=== PATIENT | male | born 1960 | race Caucasian/White ===

== ENCOUNTER 2021-12-30 14:43 | Emergency (ER) | payer OTHER, SELFPAY ==
--- NOTE | ~2021-12-30 | US_ITS ---
US renal BI DATE: 12/30/2021 17:56 INDICATION: Renal failure TECHNIQUE: Real-time imaging of the kidneys and urinary bladder COMPARISON: 04/25/2019 ultrasound of the kidneys 03/03/2006 CT renal scan FINDINGS: There is diffuse bilateral renal parenchymal thinning. The right kidney measures 9 cm lengt h, left kidney approximately 9.8 cm length. No hydronephrosis of either kidney is noted. There is a hypervascular approximately 3.8 x 5.2 x 4 cm solid mass the right kidney suspicious for hy pernephroma. CT or MR abdomen examination is recommended. There is diffuse thickening of the urinary bladder wall, possibly due to prostatomegaly.. IMPRESSION: Up to 5.2 cm mass of right kidney suspicious for hypernephroma; CT or MR renal examinatio n is recommended. Bilateral renal atrophy Thickening of the urinary bladder wall, possibly due to prostatomegaly Reviewed, dictated and finalized at [facility]. Reviewed, dictated and finalized at [facility]. IMPRESSION: Up to 5.2 cm mass of right kidney suspicious for hypernephroma; CT or MR renal examination is recommended. Bilateral renal atrophy Thickening of the urinary bladder wall, possibly due to prostatomegaly
[2021-12-30 14:47] VITALS: BP 132/81; PULSE 80; RESP 18; TEMP 37; O2SAT 98
[2021-12-30 15:00] LABS: Basophils Absolute Auto 0.1 K/mm3 (0.0-0.1); Basophils Percent Auto 0.9 % (0.2-1.2); Eosinophils Absolute Auto 0.2 K/mm3 (0-0.3); Eosinophils Percent Auto 2.8 % (0-4.4); Hematocrit 35.1 % (42.0-52.0); Hemoglobin 11.9 g/dL (14.0-18.0); Immature Granulocyte Absolute 0.03 K/mm3 (0.00-0.031); Immature Granulocyte Percent A 0.5 % (0-0.5); Lymphocytes Absolute Auto 0.69 K/mm3 (0.9-3.2); Mean Corpuscular HGB Conc 33.9 g/dl (32-36); Mean Corpuscular Hemoglobin 34.5 pg (26-34); Mean Corpuscular Volume 101.7 fl (80-100); Mean Platelet Volume 9.3 fl (7.4-10.4); Monocytes Absolute Auto 0.7 K/mm3 (0.1-0.6); Monocytes Percent Auto 12.5 % (2.6-8.5); Neutrophils Absolute Auto 4.1 K/mm3 (1.3-6.7); Neutrophils Percent Auto 71.3 % (45.5-73.1); Platelet Count Result 223 k/mm3 (150-375); Red Blood Count 3.45 M/mm3 (4.6-6.20); Red Cell Distribution Width 13.8 % (11.5-14.5); White Blood Count 5.8 K/mm3 (4.5-10.0)
--- NOTE | 2021-12-30 15:03 | ED.GENADULT ---
HPI - General Adult General Chief complaint: Recheck/Abnormal Lab/Rx Stated complaint: Kidney failure? Time Seen by Provider: 12/30/21 14:46 Source: RN notes reviewed History of Present Illness HPI narrative: Patient presents emergency department from home for possible renal failure. Patient states he just recently started seeing a primary care physician he states he has not seen a doctor since before COVID-19 started states that he had blood work drawn and was called today to come to the emergency department because it appeared he had renal failure as his creatinine was elevated. States he had 1 previous episode of renal failure numerous years ago that was secondary to dehydration but improved on its own. States he never saw a investment accountant. He denies any fevers or chills, chest pain, shortness of breath, abdominal pain, nausea or vomiting. States he has been making good urine. States he is on blood pressure medication Related Data Home Medications Medication Instructions Recorded Confirmed amlodipine 10 mg PO DAILY 12/30/21 12/30/21 furosemide 40 mg PO DAILY 12/30/21 12/30/21 hydralazine 10 mg PO TID 12/30/21 12/30/21 lisinopril 20 mg PO DAILY 12/30/21 12/30/21 metoprolol succinate 100 mg PO DAILY 12/30/21 12/30/21 Allergies Allergy/AdvReac Type Severity Reaction Status Date / Time No Known Allergies Allergy Unverified 12/30/21 14:52 Review of Systems Review of Systems: Gen.: Denies fevers or chills ENT: Denies congestion Respiratory: Denies shortness of breath or cough CV: Denies chest pain or palpitations GI: Denies abdominal pain nausea, emesis or diarrhea see HPI Musculoskeletal: Denies back pain or muscle pain Neuro: Denies numbness, tingling, weakness or focal weakness Skin: Denies rash Except as documented, all other systems reviewed and negative [facility] Past Medical History Medical History (Updated 12/30/21 @ 18:58 by Anam Aldrich DO) Hypertension Family History Family History (Updated 04/29/10 @ 15:47 by DOCTOR UNKNOWN) Other Diabetes mellitus Family history of arthritis Family history of cardiovascular disease Family history of malignant neoplasm Hypertension Social History Social History (Updated 12/30/21 @ 15:04 by Anam Aldrich DO) Smoking status: Never smoker Alcohol intake: current Exam Narrative: APPEARANCE: No acute distress, nontoxic, resting in bed EYES: EOMI HEENT: Normocephalic, atraumatic, OMM RESPIRATORY: No respiratory distress Clear to auscultation bilaterally with no rhonchi wheezing or rales. CARDIOVASCULAR: Regular rate and rhythm without murmurs rubs or gallops. ABDOMINAL: Soft, nontender, nondistended, no rebound or guarding MUSCULOSKELETAl: Moves all extremities. No clubbing, cyanosis or edema. NEURO: Awake and alert. Following commands, speech normal, no focal deficits SKIN:: Warm, dry. No rashes lesions or abrasions PSYCHIATRIC: Normal affect/mood, Course Course Emergency Course: Patient's blood work was done at another facility unable to access Called discussed with Dr. Dukes. Discussed creatinine from 2018 and creatinine today. This time agrees with plan for discharge with patient to follow-up in the office he request that renal ultrasound be obtained and requested the patient get his blood work from Monday to bring to the office for follow-up Following renal ultrasound I called discussed with Dr. Collins. At this time he agrees plan for discharge the patient to follow-up with him in the office and he will get an MRI as an outpatient Discussed with patient results of workup and diagnosis. Discussed need for follow-up with primary care, proper use of medication, and reasons to return to the emergency department. Patient understands and agrees to current treatment plan. Discussed with patient his renal mass with concern of renal carcinoma and need for follow-up with urology for repeat imaging also discussed need for follow-up wi
[2021-12-30 15:10] LABS: Alanine Aminotransferase 22 U/L (4-50); Albumin Level 4.2 g/dL (3.5-5.1); Alkaline Phosphatase 71 U/L (38-126); Anion Gap 8 mmol/L (8-16); Aspartate Amino Transferase 26 U/L (17-59); Bilirubin,Total 0.6 mg/dL (0.2-1.3); Blood Urea Nitrogen 59 mg/dL (9-20); Calcium 9.1 mg/dL (8.4-10.2); Carbon Dioxide 22 mmol/L (22-30); Chloride 106 mmol/L (98-107); Estimated CRCL calculation 24 ml/min; Estimated Glomerular Filt Rate 19; Glucose 130 mg/dL (65-110); Potassium 4.9 mmol/L (3.4-5.0); Sodium 136 mmol/L (137-145)
[2021-12-30 16:29] LABS: Add Urine Microscopic? YES; Appearance Urine Clear (Clear); Bilirubin Urine Negative (Negative); Blood Urine Negative (Negative); Color Urine Straw (Yellow); Glucose Urine UA Negative (Negative); Ketones Urine Negative (Negative); Leukocyte Esterase Ur Negative LEU/UL (Negative); Nitrate Urine Negative (Negative); Protein Urine Negative (Negative); RBC Urine 0-2 /hpf (0-2); Specific Grav Ur 1.008 (1.001-1.035); Urobilinogen Urine Negative mg/dL (<2.0)
[2021-12-30 17:16] VITALS: BP 124/86; PULSE 66; RESP 18; O2SAT 100
[2021-12-30] MEDS: SODIUM CHLORIDE 0.9% IV 1,000 ML 999 ML IV CONT (17:16)
[2021-12-30 18:45] VITALS: BP 125/86; PULSE 76; RESP 18; O2SAT 99
[2021-12-30 19:10] VITALS: BP 146/98; PULSE 70; RESP 19; O2SAT 99
== END 2021-12-30 19:11 | disposition home or self-care (01) ==
PROVIDERS: Emergency Provider Emergency Medicine
DX: N17.9 Acute kidney failure, unspecified (principal); N18.9 Chronic kidney disease, unspecified; I12.9 Hypertensive chronic kidney disease with stage 1 through stage 4 chronic kidney disease, or unspecified chronic kidney disease; N28.89 Other specified disorders of kidney and ureter
CPT/HCPCS: 36415; 76775; 80053; 81001; 85025; 96360; 96361; 99284; J7030

== ENCOUNTER 2022-02-09 12:26 | Outpatient (CLI) | payer OTHER, SELFPAY ==
--- NOTE | ~2022-02-09 | MR_ITS ---
EXAMINATION: MR abdomen wo con DATE: 02/09/2022 13:14 INDICATION: Right renal mass TECHNIQUE: Magnetic resonance imaging (MRI) of the abdomen was performed without intravenous contrast . Sequences included coronal T2-weighted SS-FSE, coronal and axial FS 2D-FIESTA, axial STIR FSE, axi al T2-weighted SS-FSE, axial T2-weighted FS SS-FSE, axial diffusion-weighted SE, axial dual-echo T1-w eighted FSPGR, and axial and coronal T1-weighted LAVA. COMPARISON: Ultrasound dated 12/30/2021 FINDINGS: Heart size is normal. No pericardial or pleural effusion. Small amount of debris layering in the depe ndent aspect of the otherwise normal gallbladder. Liver, spleen, pancreas and bilateral adrenal gland s are normal. 5 mm cyst at the lower pole of the left kidney. 6.1 x 6.1 x 5.0 cm exophytic mass arisi ng from the lower pole of the right kidney with heterogeneous signal intensity consistent with renal cell carcinoma. Visualized portion of the bowels are normal. No pathologically enlarged abdominal lym phadenopathy. 6.6 x 6.1 x 4.9 cm fat-containing left periumbilical ventral hernia which extends throu gh a 2.6 x 1.8 cm os. Severe disc height loss at L5-S1. Normal bone marrow signal. IMPRESSION: 1. 6.1 cm heterogeneous exophytic mass arising from the lower pole of the right kidney consistent wit h renal cell carcinoma. 2. Moderate-sized fat-containing left periumbilical ventral hernia. 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 IMPRESSION: 1. 6.1 cm heterogeneous exophytic mass arising from the lower pole of the right kidney consistent with renal cell carcinoma. 2. Moderate-sized fat-containing left periumbilical ventral hernia.
== END 2022-02-09 12:27 | disposition home or self-care (01) ==
LOC: ANHIMG 12:31
PROVIDERS: PCP Physician Assistant; Visit Provider Urology
DX: N28.89 Other specified disorders of kidney and ureter (principal); K43.9 Ventral hernia without obstruction or gangrene
CPT/HCPCS: 74181

== ENCOUNTER 2022-03-21 13:32 | Outpatient (CLI) | payer OTHER, SELFPAY ==
--- NOTE | ~2022-03-21 | NM_ITS ---
EXAMINATION: ODILIA ruelas renal scan DATE: 03/21/2022 15:40 INDICATION: Right kidney mass. TECHNIQUE: 7.5 mCi Tc-99m MAG3 was administered IV. 40 mg furosemide was administered IV immediately afterward. The patient was scanned in the supine position. A posterior abdominal radionuclide angiog lucio was obtained. A subsequent time course of static images of the kidneys, ureters, and bladder was obtained. COMPARISON: abdomen MRI 02/09/22 FINDINGS: The posterior abdominal radionuclide angiogram and sequential static images show normal siz e, position, and morphology of the kidneys. Peak renal parenchymal uptake was 4 min in right kidney a nd 2 min in left kidney (normal peak 3-5 minutes). The relative early renal uptake was 51% on the ri ght and 49% on the left (<40% is abnormal). No abnormalities of the ureters or bladder are seen. T1/2 for clearance of activity from the right kidney and proximal collecting system was 30 minutes. T1/2 for clearance of activity from the left kidney and proximal collecting system was 27 minutes. IMPRESSION: 1. Symmetric kidney function. 2. Delayed contrast clearance from the kidneys, consistent with decreased renal function. Reviewed, dictated and finalized at [facility]. IMPRESSION: 1. Symmetric kidney function. 2. Delayed contrast clearance from the kidneys, consistent with decreased ginger l function.
== END 2022-03-21 13:33 | disposition home or self-care (01) ==
PROVIDERS: PCP Physician Assistant; Visit Provider Urology
DX: N28.89 Other specified disorders of kidney and ureter (principal)
CPT/HCPCS: 78708; A9562

== ENCOUNTER 2022-04-14 10:02 | Outpatient (CLI) | payer OTHER, SELFPAY ==
--- NOTE | 2022-04-14 11:00 | NEURO_ITS ---
Impression: # Complains of numbness of lower extremities. # Severe motor and sensory neuropathy. # Needle/EMG exam neurogenic but no active fibrillations. # Clinical correlation recommended. Nerve Conduction Studies Anti Sensory Summary Table Stim Site NR Peak (ms) P-T Amp (?V) Site1 Site2 Delta-P (ms) Dist (cm) Theo (m/s) Left Sup Fibular Anti Sensory (Ant Lat Mall) NO RESPONSE 14 cm NR 14 cm Ant Lat Mall 16.0 Right Sup Fibular Anti Sensory (Ant Lat Mall) NO RESPONSE 14 cm NR 14 cm Ant Lat Mall 16.0 Left Sural Anti Sensory (Lat Mall) NO RESPONSE Calf NR Calf Lat Mall 16.0 Right Sural Anti Sensory (Lat Mall) NO RESPONSE Calf NR Calf Lat Mall 16.0 Motor Summary Table Stim Site NR Onset (ms) O-P Amp (mV) Site1 Site2 Delta-0 (ms) Dist (cm) Theo (m/s) Left Peroneal Motor (Vastus Med) NO RESPONSE Ankle NR Popit NR Right Peroneal Motor (Vastus Med) NO RESPONSE Ankle NR Popit NR Left Tibial Motor (Abd Day Brev) NO RESPONSE Ankle NR Knee NR Right Tibial Motor (Abd Day Brev) NO RESPONSE Ankle NR Knee NR F Wave Studies NR F-Lat (ms) L-R F-Lat (ms) Left Peroneal (Mrkrs) (EDB) NO RESPONSE NR Right Peroneal (Mrkrs) (EDB) NO RESPONSE NR Left Tibial (Mrkrs) (Abd Hallucis) NO RESPONSE NR Right Tibial (Mrkrs) (Abd Hallucis) NO RESPONSE NR EMG Side Muscle Nerve Root Ins Act Fibs Amp Dur Recrt Comment Right AntTibialis Dp Br Fibular L4-5 Nml Nml Nml >12ms Reduced Right Gastroc Tibial S1-2 Nml Nml Nml >12ms Reduced Right Fibularis Long Sup Br Fibular L5-S1 Nml Nml Nml >12ms Reduced Right Flex Dig Long Tibial L5-S2 Nml Nml Nml >12ms Reduced Right Ext Dig Brev Dp Br Fibular L5, S1 Nml Nml Nml >12ms Reduced Left AntTibialis Dp Br Fibular L4-5 Nml Nml Nml >12ms Reduced Left Gastroc Tibial S1-2 Nml Nml Nml >12ms Reduced Left Fibularis Long Sup Br Fibular L5-S1 Nml Nml Nml >12ms Reduced Left Flex Dig Long Tibial L5-S2 Nml Nml Nml >12ms Reduced Left Ext Dig Brev Dp Br Fibular L5, S1 Nml Nml Nml >12ms Reduced Right Ext Dig Long Dp Br Fibular L5-S1 Nml Nml Nml >12ms Reduced Left Ext Dig Long Dp Br Fibular L5-S1 Nml Nml Nml >12ms Reduced MTDD
== END 2022-04-14 10:03 | disposition home or self-care (01) ==
LOC: ANHNEURO 10:03
PROVIDERS: PCP Physician Assistant; Visit Provider Physician Assistant
DX: G62.9 Polyneuropathy, unspecified (principal)
CPT/HCPCS: 95886; 95910

== ENCOUNTER 2022-05-02 09:38 | Outpatient (CLI) | payer OTHER, SELFPAY ==
--- NOTE | 2022-05-02 10:58 | ECG_ITS ---
Measurements Intervals [place] Rate: 60 P: 69 MN: 218 QRS: 10 QRSD: 102 T: 38 QT: 438 QTc: 438 Interpretive Statements SINUS RHYTHM WITH FIRST DEGREE AV BLOCK BASELINE ARTIFACT- I, III, AVR, AVL ABNORMAL ECG Electronically Signed On 05-02-2022 11:24:36 CDT by Davonte Almendarez D.O.
[2022-05-02 11:29] LABS: INR 0.9; Prothrombin Time 12.2 Seconds (11.1-14.7)
[2022-05-02 11:30] LABS: Partial Thromboplastin Time 25.3 SECONDS (22.3-36.8)
[2022-05-02 11:39] LABS: Basophils Absolute Auto 0.1 K/mm3 (0.0-0.1); Basophils Percent Auto 0.9 % (0.2-1.2); Eosinophils Absolute Auto 0.4 K/mm3 (0-0.3); Eosinophils Percent Auto 5.3 % (0-4.4); Hematocrit 37.1 % (42.0-52.0); Hemoglobin 11.9 g/dL (14.0-18.0); Immature Granulocyte Absolute 0.02 K/mm3 (0.00-0.031); Immature Granulocyte Percent A 0.3 % (0-0.5); Lymphocytes Absolute Auto 1.03 K/mm3 (0.9-3.2); Lymphocytes Percent Auto 14.8 % (18.3-44.2); Mean Corpuscular HGB Conc 32.1 g/dl (32-36); Mean Corpuscular Hemoglobin 32.7 pg (26-34); Mean Corpuscular Volume 101.9 fl (80-100); Mean Platelet Volume 9.4 fl (7.4-10.4); Monocytes Absolute Auto 0.8 K/mm3 (0.1-0.6); Monocytes Percent Auto 10.8 % (2.6-8.5); Neutrophils Absolute Auto 4.7 K/mm3 (1.3-6.7); Neutrophils Percent Auto 67.9 % (45.5-73.1); Platelet Count Result 242 k/mm3 (150-375); Red Blood Count 3.64 M/mm3 (4.6-6.20); Red Cell Distribution Width 14.6 % (11.5-14.5)
[2022-05-02 11:40] LABS: Alanine Aminotransferase 16 U/L (6-50); Alkaline Phosphatase 75 U/L (38-126); Anion Gap 4 mmol/L (8-16); Aspartate Amino Transferase 24 U/L (17-59); Bilirubin,Total 0.3 mg/dL (0.2-1.3); Blood Urea Nitrogen 37 mg/dL (9-20); Calcium 8.9 mg/dL (8.4-10.2); Carbon Dioxide 25 mmol/L (22-30); Chloride 109 mmol/L (98-107); Estimated Glomerular Filt Rate 31; Glucose 115 mg/dL (65-110); Potassium 4.5 mmol/L (3.4-5.0); Sodium 138 mmol/L (137-145)
== END 2022-05-02 09:39 | disposition home or self-care (01) ==
PROVIDERS: PCP Physician Assistant; Visit Provider Urology
DX: N28.89 Other specified disorders of kidney and ureter (principal); I10 Essential (primary) hypertension; Z01.818 Encounter for other preprocedural examination; I44.0 Atrioventricular block, first degree
CPT/HCPCS: 36415; 80053; 85025; 85610; 85730; 86850; 86900; 86901; 87086; 93005

== ENCOUNTER 2022-05-10 09:37 | Inpatient (IN) | payer OTHER, SELFPAY ==
--- NOTE | 2022-05-02 09:55 | PC.NURSE ---
Report to the Outpatient Waiting Room, entrance under the green pavilion located off [facility], at time _0600_ on date _05/10/22_. OR Time: _0730_. - You and your visitor will be asked a series of questions to screen for COVID 19 for your protection. - Only one visitor is allowed at this time. - A mask is required within the hospital. - The patient visitor is requested to leave or wait in car when not with patient. VISITING HOURS 10AM-8PM, PARK IN FRONT OF THE HOSPITAL AND USE MAIN ENTRANCE Patients may have clear liquids (water, carbonated beverages, clear teas, apple juice) until 3 hours prior to surgery (0430 AM) with a maximum of 20 ounces. - No food from midnight until time of surgery Take the following medications with a SIP of water the morning of surgery: _AMLODIPINE, HYDRALAZINE, METOPROLOL_ Medications to discontinue per DR. CRUZ - ASPIRIN 7 DAYS PRIOR TO SURGERY, Date to take last dose 05/02/22_ Medications to discontinue per ANESTHESIA - VITAMINS 3 DAYS PRIOR TO SURGERY, Date to take last dose 05/06/22_ Please no deodorant, or body powder the day of surgery. No jewelry (including any body piercings) or valuables the day of surgery, leave them at home. Please take a shower or bath the night before, or the morning of, surgery with an antibacterial soap. Wear comfortable, loose fitting clothing. - Jewelry must be removed prior to entering the operating room. Rings and piercings that are not removed may be cut off. - The hospital will not accept responsibility for valuables. - Please leave all valuables, including medications, at home the day of surgery. If you are going home after surgery, a licensed cross country truck driver must drive you home. - NO public transportation without another adult. - We recommend that an adult stay with you for 24 hours following discharge. - We also recommend that you do not drive, make important decision, drink alcoholic beverages, or take any drugs that were not prescribed by your health care provider for at least 24 hours after your discharge time. Follow any additional instructions given to you from your surgeons. DR. EDILIA VIRK SHOWER AM OF SURGERY If you or anyone in your household have experienced Covid symptoms in the past week, please notify your surgeon or the nurse liaison at the phone number below for possible testing. Instructions given to ____PT & [id number] (LATIA) and asked if any additional questions and then verbalized understanding. Patient advised to call surgeon office or pre surgery nurse liaison [phone] if any additional questions.
[2022-05-02 10:21] VITALS: BP 160/86; PULSE 62; RESP 20; TEMP 36.8; O2SAT 99; BMI 27.3
--- NOTE | 2022-05-09 14:10 | WPDANESEPPF ---
Anes - Initial Pre Proc Eval Procedure: Operation Date: 05/10/22 07:30 Proposed Procedures p Hand-Assisted Right Radical Nephrectomy - Vitor Mayberry MD s Incarcerated Ventral Hernia Repair, Possible Mesh - Serafin Benjamin DO Date/Time: 05/09/22 14:10 Surgeon: Vitor Mayberry MD Pre Op Diagnosis: Right Renal Mass, Incarcerated Ventral Hernia Patient Data Age: 61 Gender: M Height: 1.83 m Weight: 91.5 kg Last Vital Signs Temp 36.8 C 05/02/22 10:21 Pulse 62 05/02/22 10:21 Resp 20 05/02/22 10:21 BP 160/86 H 05/02/22 10:21 Pulse Ox 99 05/02/22 10:21 O2 Del Method Room Air 05/02/22 10:21 Allergies Allergy/AdvReac Type Severity Reaction Status Date / Time No Known Allergies Allergy Verified 05/02/22 10:23 Home Medications Medication Instructions Recorded Confirmed Type amlodipine 10 mg tablet 10 mg PO QAM 12/30/21 05/02/22 History hydralazine 10 mg tablet 10 mg PO TID 12/30/21 05/02/22 History lisinopril 20 mg tablet 20 mg PO QAM 12/30/21 05/02/22 History metoprolol succinate 100 mg 100 mg PO QAM 12/30/21 05/02/22 History capsule sprinkle, ext. release 24 hr aspirin 81 mg tablet,delayed 81 mg PO DAILY 05/02/22 05/02/22 History release cholecalciferol (vitamin D3) 1 cap QAM 05/02/22 05/02/22 History ECG: Date of Service: 05/02/22 Procedure(s): CA 12 lead EKG Accession Number(s): [id number] cc: ~ ? Measurements Intervals? [place]? Rate: ? 60 ? P:? 69 MT: ? 218? QRS:? 10 QRSD: ? 102? T:? 38 QT: ? 438? QTc:? 438? Interpretive Statements SINUS RHYTHM WITH FIRST DEGREE AV BLOCK BASELINE ARTIFACT- I, III, AVR, AVL ABNORMAL ECG Electronically Signed On 05-02-2022 11:24:36 CDT by Davonte Almendarez D.O. Other studies: DATE: 02/09/2022 13:14 INDICATION: Right renal mass TECHNIQUE: Magnetic resonance imaging (MRI) of the abdomen was performed without intravenous contrast.? Sequences included coronal T2-weighted SS-FSE, coronal and axial FS 2D-FIESTA, axial STIR FSE, axial T2-weighted SS-FSE, axial T2-weighted FS SS-FSE, axial diffusion-weighted SE, axial dual-echo T1-weighted FSPGR, and axial and coronal T1-weighted LAVA. COMPARISON: Ultrasound dated 12/30/2021 FINDINGS: Heart size is normal. No pericardial or pleural effusion. Small amount of debris layering in the dependent aspect of the otherwise normal gallbladder. Liver, spleen, pancreas and bilateral adrenal glands are normal. 5 mm cyst at the lower pole of the left kidney. 6.1 x 6.1 x 5.0 cm exophytic mass arising from the lower pole of the right kidney with heterogeneous signal intensity consistent with renal cell carcinoma. Visualized portion of the bowels are normal. No pathologically enlarged abdominal lymphadenopathy. 6.6 x 6.1 x 4.9 cm fat-containing left periumbilical ventral hernia which extends through a 2.6 x 1.8 cm os. Severe disc height loss at L5-S1. Normal bone marrow signal. IMPRESSION: 1. 6.1 cm heterogeneous exophytic mass arising from the lower pole of the right kidney consistent with renal cell carcinoma. 2. Moderate-sized fat-containing left periumbilical ventral hernia. Patient hx anesthesia problems: none Family hx anesthesia problems: none Results Review: All pre-operative results and documents have been reviewed as part of the pre-operative evaluation. [facility] Past Medical History Medical History (Updated 05/09/22 @ 14:14 by Gustavo Davalos MD) ETOH abuse Hypertension Incarcerated ventral hernia Kidney stones Peripheral neuropathy Right renal mass Tobacco abuse Family History Family History Other Diabetes mellitus Family history of
--- NOTE | 2022-05-09 14:15 | WPDANESPNB ---
Anes - Peripheral Nerve Block Date/Time: 05/09/22 14:15 I have discussed with the patient/family/POA the placement of a peripheral nerve block for post-operative pain management, including associated risks, benefits, complications, and side effects. Alternative methods of post-operative analgesia were detailed. Questions were solicited and answers provided to the satisfaction of the patient/family/POA. Time-Out: A pre-procedural Time-Out was completed immediately before starting the procedure and confirmed: Patient Identification, Site, Procedure, Patient Position and the Availability of Requisite Equipment. Clinical Indications: Acute post-operative pain management requested by the operative surgeon. Nerve Block Insertion Note Needle: 22 gauge, stimulating, insulated echogenic needle.
[2022-05-10] VITALS (19 sets, daily range): BP systolic 130–174; BP diastolic 62–89; PULSE 49–78; RESP 10–18; TEMP 36.2–36.9; O2SAT 95–100
[2022-05-10] MEDS: LACTATED RINGERS 1,000 ML 30 ML IV CONT ×3 (06:45→12:22)
[2022-05-10] MEDS: KETOROLAC 15 MG/ML VIAL (*BKC) IV PUSH (06:53)
[2022-05-10] MEDS: ACETAMINOPHEN 500 MG TABLET 1000 MG PO (06:53)
--- NOTE | 2022-05-10 07:05 | WPDHPUPDATE1 ---
History and Physical Update Update Date/Time: 05/10/22 07:05 History and Physical has been reviewed, including an updated exam of the patient. There are NO changes in the patient's condition. Risks, benefits, and alternatives have been discussed and questions answered. Patient agrees to proceed with procedure. Proceed with OLIVIA right nephrectomy with hernia repair.
--- NOTE | 2022-05-10 07:18 | WPDHPUPDATE1 ---
History and Physical Update Update Date/Time: 05/10/22 07:18 History and Physical has been reviewed, including an updated exam of the patient. There are NO changes in the patient's condition. Risks, benefits, and alternatives have been discussed and questions answered. Patient agrees to proceed with procedure.
--- NOTE | 2022-05-10 07:18 | PM.IMHP ---
H&P: HPI History of Present Illness Date/Time: 05/10/22 07:18 Chief Complaint: Ventral hernia Narrative: This is a 61 yo man who presents with a ventral hernia and right kidney mass. He is undergoing hand assisted laparoscopic right nephrectomy and ventral hernia. He reports no changes since last seen in office. Review of Systems Review of Systems: All systems reviewed & are unremarkable except as noted in HPI and below Constitutional: Constitutional: Denies chills, Denies fever(s), Denies headache(s) and Denies weight loss Eyes: Eyes: Denies change in vision ENT: Denies dizziness, Denies headache(s), Denies neck mass and Denies throat swelling Cardiovascular: Cardiovascular: Denies chest pain, Denies lightheadedness and Denies dyspnea Respiratory: Respiratory: Denies cough, Denies dyspnea and Denies wheezing Gastrointestinal: Gastrointestinal: Denies abdominal pain, Denies change in bowel habits, Denies nausea and Denies vomiting Genitourinary: Genitourinary: Denies hematuria and Denies dysuria Musculoskeletal: Musculoskeletal: Reports as per HPI Integumentary/Breasts: Skin/Breast: Reports as per HPI Neurologic: Denies dizziness and Denies headache(s) Allergic/Immunologic: Allergic/Immunologic: Denies throat swelling and Denies wheezing PMFSH Past Medical History Medical History (Updated 05/09/22 @ 14:14 by Gustavo Davalos MD) ETOH abuse Hypertension Incarcerated ventral hernia Kidney stones Peripheral neuropathy Right renal mass Tobacco abuse Family History Family History Other Diabetes mellitus Family history of arthritis Family history of cardiovascular disease Family history of malignant neoplasm Hypertension Social History Social History Smoking packs per day: 1.5 Smoking cigarettes per day: 30.0 Years smoked: 48 Smoking pack-years: 72.00 Smoking status: Current every day smoker Tobacco type: cigarettes Second hand tobacco smoke exposure: Yes Additional smoking assessment comments: STATES STARTING SMOKING AGE 13 Alcohol intake: current Drinks per week: 21 Alcohol use details: 3 DRINKS NIGHTLY Substance use: never Substance use type: does not use Living arrangements: alone Additional occupation/education comments: [employer] Spiritual care concerns: No Meds Home Medications and Allergies Home Medications Medication Instructions Recorded Confirmed Type amlodipine 10 mg tablet 10 mg PO QAM 12/30/21 05/02/22 History hydralazine 10 mg tablet 10 mg PO TID 12/30/21 05/02/22 History lisinopril 20 mg tablet 20 mg PO QAM 12/30/21 05/02/22 History metoprolol succinate 100 mg 100 mg PO QAM 12/30/21 05/02/22 History capsule sprinkle, ext. release 24 hr aspirin 81 mg tablet,delayed 81 mg PO DAILY 05/02/22 05/02/22 History release cholecalciferol (vitamin D3) 1 cap QAM 05/02/22 05/02/22 History Allergies Allergy/AdvReac Type Severity Reaction Status Date / Time No Known Allergies Allergy Verified 05/02/22 10:23 Exam Const: General: no acute distress and alert Orientation/consciousness: patient oriented x3 HENMT: Head: normocephalic and atraumatic Ears: hearing grossly normal bilaterally General nose exam: Normal nares present Mouth: Yes Normal oral and palatal mucosa present Eyes: Periorbital: periorbital findings normal Sclera: sclerae normal EOM: EOMs intact bilaterally Neck: Neck: normal visual inspection, no lymphadenopathy and trachea midline Chest: Chest palpation & inspection: normal inspection of the chest Resp: Effort & Inspection: normal respiratory effort Auscultation: clear to auscultation bilaterally Cardio: Jugular venous distension: no JVD Rate: regular rate Rhythm: regular rhythm Heart sounds: S1 normal heart sound present and S2 normal heart sound present Peripheral pulses: Peripheral puls
[2022-05-10] MEDS: ceFAZolin 2 GM/D5W 50 ML 2 GM/50 ML BAG IVPB (07:40)
[2022-05-10] MEDS: BUPIVACAINE HCL 0.5% PF 30 ML VIAL 20 ML INFILTRATE (08:39)
--- NOTE | 2022-05-10 10:25 | W.PM.PROC2 ---
Procedure Note - Detailed Date of Procedure 05/10/22 Pre-op Diagnosis Right Renal Mass, Incarcerated Ventral Hernia Post-op Diagnosis Same Procedure Performed Hand assisted laparoscopic right nephrectomy. Ventral hernia repair by Dr Lobato Surgeon Vitor Mayberry MD Anesthesia General Description of Procedure Patient is taken to the operative suite correctly identified. Once anesthesia was obtained was placed in the decubitus position right side up. All pressure points were padded. Patient was prepped and draped usual sterile fashion. A hand port incision site was made just lateral to the umbilicus. This carried down to the fascia. The peritoneum was entered. The abdominal cavity was also entered. GelPort was then inserted. Abdomen was insufflated to 15 mmHg pressure. We then placed our working ports in appropriate location. The white line of Toldt was then taken down. Duodenum was Kocherized. The inferior vena cava and renal vein were easily isolated. Kidney was lifted off of the psoas muscle. This was dissected up to the hilar area. The renal artery was visualized. Three clips were placed proximally and 2 distally. The artery was transected. The right renal vein was then transected using a Endo-TYSHAWN stapler. The kidney was then mobilized laterally and superiorly. The adrenal gland was spared. The specimen was then sent for pathologic review. There was good hemostasis at termination of procedure. To seal was then placed over the hilar area as well as Surgicel. All lap count needle count sponge counts were correct at this point time. I should state that in order to placed a GelPort in he did have a ventral hernia. This was reduced. Dr. Lobato then came in to repair the ventral hernia and he will dictate that portion of the procedure. Estimated Blood Loss 75 Drains Yes (Knott catheter) Packing No Pathology Yes Complications No immediate complications Condition Stable Disposition PACU
[2022-05-10] MEDS: BUPIVACAINE/EPINEPHRINE 0.25% 50 ML VIAL 20 ML INFILTRATE (10:28)
[2022-05-10] MEDS: fentaNYL CITRATE INJ (*CRX) 100 MCG/2 ML VIAL 25 MCG IV PUSH ×2 (11:40→11:57)
--- NOTE | 2022-05-10 12:25 | SUR.PHASEI ---
1220 - dr. mayberry aware of u/o. 20 mls of yellow urine for one hour while in PACU. Dr. Mayberry aware of pt receiving 2 liters of LR throughout case and recovery. Dr. Mayberry ordered to infuse another liter of LR while in recovery room.
--- NOTE | 2022-05-10 13:20 | W.PM.PROC2 ---
Procedure Note - Detailed Date of Procedure 05/10/22 Pre-op Diagnosis Right Renal Mass, Incarcerated Ventral Hernia Post-op Diagnosis Same Procedure Performed Incarcerated ventral hernia repair with [address] Hernia Patch Surgeon Serafin Benjamin, DO Anesthesia General and Local (0.5% bupivicaine with epi) Indications This is a 61-year-old man who presented with a recent finding of a renal mass. Was seen by Urology and discussions were made with the patient about proceeding with hand assisted laparoscopic right nephrectomy. On exam he was found to have a large periumbilical ventral hernia therefore he was referred for evaluation and did repair the hernia. He was found to have an incarcerated ventral hernia on exam. This appeared to be incarcerated with fat. Discussions were made with the patient about treatment options and decision was made to proceed with open incarcerated ventral hernia repair with mesh at the time of his hand assisted laparoscopic right nephrectomy. Findings Open incarcerated ventral hernia repair was performed. Patient was found to have omentum incarcerated in the hernia defect. This was reduced at the time of the nephrectomy and then after completion of the nephrectomy a separate incision was made inferior to the umbilicus to repair the ventral periumbilical hernia. The hernia sac was excised and sent to the lab for pathology. The hernia defect measured about 2 cm wide. An [address] hernia patch was placed within the abdominal cavity and secured to the fascia at the 4 corners with 0 Ethibond transfascial sutures. The hernia defect was then closed over the mesh using 0 Ethibond [id number] sutures transversely. Description of Procedure Procedure as well as risks, benefits, and alternatives were discussed with the patient. Written consent was obtained and placed in chart prior to procedure. Patient was brought back to surgical suite. He was placed supine on operating table. Time-out was done to confirm patient and procedure. He was then repositioned into left lateral position with a beanbag and lateral positioners. He then underwent hand assisted laparoscopic right nephrectomy. Please refer to the operative report by Dr. Mayberry for his details. At the conclusion of this procedure, the ports were removed and I was called in to complete the closure of the hand port and performed the hernia repair. The patient was flattened out and bed to supine position. I carefully palpated around the hand port site which was in a right paramedian location. The hand port site appeared to be of about 2-3 cm lateral to the ventral periumbilical hernia. This appeared to be too far away to repair through the hand port incision, therefore decision was made to close the hand port and created a new incision for the hernia repair. The posterior rectus sheath of the and port was closed using 0 PDS running suture. The anterior rectus sheath was then also closed with a separate 0 PDS running suture. This appeared to bring the fascia and rectus muscle together from the hand port site. Then made a 4 cm curvilinear incision just inferior to the umbilicus using a 15 blade scalpel. Electrocautery was used for hemostasis and for careful dissection through the subcutaneous tissue. The hernia sac was encountered and was carefully dissected free from the umbilical skin and subcutaneous space using electrocautery. The hernia sac was then transected at the level of the fascia using electrocautery. Fascia was cleared around the hernia defect anteriorly using electrocautery. The hernia defect was measured at about 2 cm wide. An [address] hernia patch was then placed within the abdominal cavity and centered on the hernia defect. The mesh was secured to the fascia at the 4 corners using 0 Ethibond U-stitch trans fascial sutures. The fascia was then closed over the mesh using 0 Ethibond [id number] sutures in a transverse fashio
--- NOTE | 2022-05-10 14:54 | ADMGEN ---
This patient, Kar lSoan, was admitted to Medical Room 259-. Patient/family oriented to hospital policies and general routines including ID bracelet, bed and alarms, visiting hours, pain management, procedures, bathroom and other care routines, personal items, smoking policy, room service/diet, and visiting hours. Information on how to activate the Rapid Response Team has been discussed. Patient/Family are encouraged to report perceived risks to care and to ask questions if they do not understand what they are told or what they should do.
[2022-05-10] MEDS: DEXTROSE 5%/LACTATED RINGERS 1,000 ML 120 ML IV CONT (15:00)
--- NOTE | 2022-05-10 16:30 | PM.IMCN ---
Assessment and Plan Assessment and plan (1) Acute on chronic renal failure: Code(s): N17.9 - Acute kidney failure, unspecified; N18.9 - Chronic kidney disease, unspecified Status: Acute Assessment and Plan: Current BUN and creatinine 37/2.20 Down considering in December she was 3.30 Baseline looks to be about 1.5 IV fluids on board Trend labs Adjust therapy as indicated Avoid nephrotoxic medications Renally adjust medications (2) Incarcerated ventral hernia: Code(s): K43.6 - Other and unspecified ventral hernia with obstruction, without gangrene Status: Acute Assessment and Plan: Status post repair General surgery to manage Pain medications on board Antibiotics x3 Bags Trend white blood cell count Surgical wound care Trend for signs of infection (3) Right renal mass: Code(s): N28.89 - Other specified disorders of kidney and ureter Status: Acute Assessment and Plan: Right nephrectomy performed 05/10/2022 Postop care managed by Urology Trend pain Pain medications on board Adjust therapy as indicated (4) ETOH abuse: Code(s): F10.10 - Alcohol abuse, uncomplicated Status: Acute Assessment and Plan: Start thiamine and folic acid CIWA per protocol Cessation education Librium p.r.n. (5) Peripheral neuropathy: Code(s): G62.9 - Polyneuropathy, unspecified Status: Acute Assessment and Plan: Continue home medications (6) Tobacco abuse: Code(s): Z72.0 - Tobacco use Status: Acute Assessment and Plan: Nicotine patch and gum Cessation education for 8 minutes (7) Hypertension: Qualifiers: Hypertension type: primary hypertension Qualified Code(s): I10 - Essential (primary) hypertension Code(s): I10 - Essential (primary) hypertension Status: Acute Assessment and Plan: Current blood pressure 145/82 Continue home medications Trend blood pressure Adjust therapy as indicated HPI Data of Consult Consult date: 05/10/22 Requesting Physician: Vitor Mayberry MD Primary Care Provider: Gia Clark, PA Consult Narrative Reason for consult: Medical management Narrative: Kar Sloan is a 61 year old male with past medical history of kidney stones, peripheral neuropathy, incarcerated hernia who presented the ED with a ventral hernia and a right kidney mass. Patient was taken OR by General surgery and by Urology for right nephrectomy and hernia repair. We have been asked to consult for medical management. Patient stated that he is having some pain today a 3/10. He did state that the he does not wear oxygen home. His catheter is draining a clear yellow urine. He denies any chest pain, shortness of breath, nausea, vomiting, abdominal pain, weakness or fatigue. He denies any sweats fevers or chills at this time. Lab values appear stable as his BUN creatinine are going down. Patient does have multiple ant insertion sites however they do look stable and her covered with glue at this time. Lab works seems to be doing better as well. Review of Systems Review of Systems: All systems reviewed & are unremarkable except as noted in HPI and below [facility] Past Medical History Medical History (Updated 05/10/22 @ 22:31 by ELIUD Huizar) Acute on chronic renal failure ETOH abuse Hypertension Incarcerated ventral hernia Kidney stones Peripheral neuropathy Right renal mass Tobacco abuse Surgical History Surgical History H/O hernia repair H/O right nephrectomy Family History Family History Other Diabetes mellitus Family history of arthritis Family history of cardiovascular disease Family history of malignant neoplasm Hypertension Socia
--- NOTE | 2022-05-10 16:30 | P.CONIM_ITS ---
Assessment and Plan Assessment and plan (1) Acute on chronic renal failure: Code(s): N17.9 - Acute kidney failure, unspecified; N18.9 - Chronic kidney disease, unspecified Status: Acute Assessment and Plan: * Current BUN and creatinine 37/2.20 * Down considering in December she was 3.30 * Baseline looks to be about 1.5 * IV fluids on board * Trend labs * Adjust therapy as indicated * Avoid nephrotoxic medications * Renally adjust medications (2) Incarcerated ventral hernia: Code(s): K43.6 - Other and unspecified ventral hernia with obstruction, without gangrene Status: Acute Assessment and Plan: * Status post repair * General surgery to manage * Pain medications on board * Antibiotics x3 Bags * Trend white blood cell count * Surgical wound care * Trend for signs of infection (3) Right renal mass: Code(s): N28.89 - Other specified disorders of kidney and ureter Status: Acute Assessment and Plan: * Right nephrectomy performed 05/10/2022 * Postop care managed by Urology * Trend pain * Pain medications on board * Adjust therapy as indicated (4) ETOH abuse: Code(s): F10.10 - Alcohol abuse, uncomplicated Status: Acute Assessment and Plan: * Start thiamine and folic acid * CIWA per protocol * Cessation education * Librium p.r.n. (5) Peripheral neuropathy: Code(s): G62.9 - Polyneuropathy, unspecified Status: Acute Assessment and Plan: * Continue home medications (6) Tobacco abuse: Code(s): Z72.0 - Tobacco use Status: Acute Assessment and Plan: * Nicotine patch and gum * Cessation education for 8 minutes (7) Hypertension: Qualifiers: Hypertension type: primary hypertension Qualified Code(s): I10 - Essential (primary) hypertension Code(s): I10 - Essential (primary) hypertension Status: Acute Assessment and Plan: * Current blood pressure 145/82 * Continue home medications * Trend blood pressure * Adjust therapy as indicated HPI Data of Consult Consult date: 05/10/22 Requesting Physician: Vitor Mayberry MD Primary Care Provider: Gia Clark, PA Consult Narrative Reason for consult: Medical management Narrative: Kar Sloan is a 61 year old male with past medical history of kidney stones, peripheral neuropathy, incarcerated hernia who presented the ED with a ventral hernia and a right kidney mass. Patient was taken OR by General surgery and by Urology for right nephrectomy and hernia repair. We have been asked to consult for medical management. Patient stated that he is having some pain today a 3/10. He did state that the he does not wear oxygen home. His catheter is draining a clear yellow urine. He denies any chest pain, shortness of breath, nausea, vomiting, abdominal pain, weakness or fatigue. He denies any sweats fevers or chills at this time. Lab values appear stable as his BUN creatinine are going down. Patient does have multiple ant insertion sites however they do look stable and her covered with glue at this time. Lab works seems to be doing better as well. Review of Systems Review of Systems: All systems reviewed & are unremarkable except as noted in HPI and below [facility] Past Medical History Med
[2022-05-10] MEDS: hydrALAZINE 10 MG TABLET PO ×2 (16:42→20:58)
[2022-05-11] VITALS (9 sets, daily range): BP systolic 123–141; BP diastolic 66–77; PULSE 65–90; RESP 16–17; TEMP 36.6–37.1; O2SAT 96–98
[2022-05-11] MEDS: DEXTROSE 5%/LACTATED RINGERS 1,000 ML 120 ML IV CONT ×2 (00:05→10:00)
[2022-05-11] MEDS: ONDANSETRON INJ 4 MG/2 ML VIAL IV PUSH (00:14)
[2022-05-11] MEDS: HYDROmorphone HCL INJ (*CRX) 1 MG/ML SYR 0.5 MG IV PUSH (00:14)
[2022-05-11 05:04] LABS: Basophils Percent Auto 0.2 % (0.2-1.2); Hematocrit 34.7 % (42.0-52.0); Hemoglobin 11.4 g/dL (14.0-18.0); Immature Granulocyte Absolute 0.07 K/mm3 (0.00-0.031); Immature Granulocyte Percent A 0.6 % (0-0.5); Lymphocytes Absolute Auto 0.57 K/mm3 (0.9-3.2); Lymphocytes Percent Auto 4.5 % (18.3-44.2); Mean Corpuscular HGB Conc 32.9 g/dl (32-36); Mean Corpuscular Hemoglobin 33.7 pg (26-34); Mean Corpuscular Volume 102.7 fl (80-100); Mean Platelet Volume 9.9 fl (7.4-10.4); Monocytes Absolute Auto 1.1 K/mm3 (0.1-0.6); Monocytes Percent Auto 8.5 % (2.6-8.5); Neutrophils Absolute Auto 10.9 K/mm3 (1.3-6.7); Neutrophils Percent Auto 86.2 % (45.5-73.1); Platelet Count Result 235 k/mm3 (150-375); Red Blood Count 3.38 M/mm3 (4.6-6.20); Red Cell Distribution Width 14.7 % (11.5-14.5); White Blood Count 12.6 K/mm3 (4.5-10.0)
[2022-05-11 05:21] LABS: Anion Gap 7 mmol/L (8-16); Blood Urea Nitrogen 29 mg/dL (9-20); Calcium 8.3 mg/dL (8.4-10.2); Carbon Dioxide 22 mmol/L (22-30); Chloride 108 mmol/L (98-107); Estimated CRCL calculation 30 ml/min; Estimated Glomerular Filt Rate 25; Glucose 131 mg/dL (65-110); Potassium 4.5 mmol/L (3.4-5.0); Sodium 137 mmol/L (137-145)
[2022-05-11] MEDS: hydrALAZINE 10 MG TABLET PO ×2 (06:17→15:09)
--- NOTE | 2022-05-11 09:17 | WPDANESPN ---
Anes - Prog Note Post-Op Date/Time: 05/11/22 09:17 Vital Signs: Last Vital Signs Temp 36.6 C 05/11/22 04:32 Pulse 68 05/11/22 04:32 Resp 17 05/11/22 04:32 BP 141/77 H 05/11/22 04:32 Pulse Ox 96 05/11/22 08:00 O2 Del Method Room Air 05/11/22 08:00 O2 Flow Rate 2 05/10/22 20:00 Pain Score (VAS): 0 I/O: Intake & Output 05/10/22 05/11/22 05/11/22 23:59 07:59 15:59 Intake Total 1250 200 Output Total 700 800 Balance 550 -600 Laboratory Tests 05/11/22 04:46 05/11/22 04:46 05/11/22 05/11/22 04:46 04:46 WBC 12.6 H RBC 3.38 L Hgb 11.4 L Hct 34.7 L MCV 102.7 H MCH 33.7 MCHC 32.9 RDW 14.7 H Plt Count 235 MPV 9.9 Immature Gran % (Auto) 0.6 H Neut % (Auto) 86.2 H Lymph % (Auto) 4.5 L [place] % (Auto) 8.5 Eos % (Auto) 0.0 Baso % (Auto) 0.2 Lymph # (Auto) 0.57 L [place] # (Auto) 1.1 H Eos # (Auto) 0.0 Baso # (Auto) 0.0 Abs Immat Gran (auto) 0.07 H Absolute Neuts (auto) 10.9 H Absolute Nucleated RBC 0.0 Nucleated RBC % 0.0 Sodium 137 Potassium 4.5 Chloride 108 H Carbon Dioxide 22 Anion Gap 7 L BUN 29 H Creatinine 2.60 H Estim Creat Clear Calc 30 Estimated GFR 25 L Glucose 131 H Calcium 8.3 L Patient Feedback: Patient satisfied with anesthetic care.
[2022-05-11] MEDS: THIAMINE HCL 100 MG TABLET PO (10:00)
[2022-05-11] MEDS: amLODIPine BESYLATE 5 MG TABLET 10 MG PO (10:00)
[2022-05-11] MEDS: METOPROLOL SUCCINATE EXT REL 100 MG TABCR PO (10:00)
[2022-05-11] MEDS: lisinopriL 20 MG TABLET PO (10:00)
[2022-05-11] MEDS: NICOTINE (*PBKC) 21 MG PATCH 1 PATCH TRANSDERM (10:00)
[2022-05-11] MEDS: FOLIC ACID 1 MG TABLET PO (10:00)
--- NOTE | 2022-05-11 10:30 | P.PNIM_ITS ---
Progress Note: A&P Assessment and Plan (1) Acute on chronic renal failure: Code(s): N17.9 - Acute kidney failure, unspecified; N18.9 - Chronic kidney disease, unspecified Status: Acute Assessment and Plan: * Current BUN and creatinine 29/2.60 * Down considering in December she was 3.30 * Baseline looks to be about 1.5 * IV fluids on board * Trend labs * Adjust therapy as indicated * Avoid nephrotoxic medications * Renally adjust medications * Urine studies Urine sodium 78, urine urea 428, creatinine 86.4 * FENa 1.7 intrinsic probably related to the renal mass and nephrectomy * Could be new baseline (2) Incarcerated ventral hernia: Code(s): K43.6 - Other and unspecified ventral hernia with obstruction, without gangrene Status: Acute Assessment and Plan: * Status post repair * General surgery to manage * Pain medications on board * Antibiotics x3 Bags * Trend white blood cell count * Surgical wound care * Trend for signs of infection (3) Right renal mass: Code(s): N28.89 - Other specified disorders of kidney and ureter Status: Acute Assessment and Plan: * Right nephrectomy performed 05/10/2022 * Postop care managed by Urology * Trend pain * Pain medications on board * Adjust therapy as indicated (4) ETOH abuse: Code(s): F10.10 - Alcohol abuse, uncomplicated Status: Acute Assessment and Plan: * Start thiamine and folic acid * CIWA per protocol * Cessation education * Librium p.r.n. (5) Peripheral neuropathy: Code(s): G62.9 - Polyneuropathy, unspecified Status: Acute Assessment and Plan: * Continue home medications (6) Tobacco abuse: Code(s): Z72.0 - Tobacco use Status: Acute Assessment and Plan: * Nicotine patch and gum * Cessation education for 8 minutes (7) Hypertension: Qualifiers: Hypertension type: primary hypertension Qualified Code(s): I10 - Essential (primary) hypertension Code(s): I10 - Essential (primary) hypertension Status: Acute Assessment and Plan: * Current blood pressure 141/77 * Continue home medications * Trend blood pressure * Adjust therapy as indicated Time Spent With Patient Time with patient: Greater than 35 minutes Subjective Date/time seen: 05/11/22 10:30 Interval history: 05/11/22 1030 Patient was sitting in the chair and he stated that he is ready to go. Talked to Urology who is able to take out the Knott. He denies any chest pain, shortness with, nausea, vomiting, diarrhea, constipation, weakness or fatigue. Is biggest complaint was he does have pain with the incision sites. Talked to the patient about smoking cessation gave him extra education about the cessation due to the fact that he has only 1 kidney at this time. He is willing to take Chantix and other cessation meds to assist with quitting at this time. Will have patient recheck his labs in 1 week and follow up with his primary care provider an appointment has been provided. 05/10/22 Kar Sloan is a 61 year old male with past medical history of kidney stones, peripheral neuropathy, incarcerated hernia who presented the ED with a ventral hernia and a right kidney mass.? Patient was taken OR by General surgery and by Urology for right nephrectomy and hernia repair.? We have
--- NOTE | 2022-05-11 10:30 | PM.IMPN ---
Progress Note: A&P Assessment and Plan (1) Acute on chronic renal failure: Code(s): N17.9 - Acute kidney failure, unspecified; N18.9 - Chronic kidney disease, unspecified Status: Acute Assessment and Plan: Current BUN and creatinine 29/2.60 Down considering in December she was 3.30 Baseline looks to be about 1.5 IV fluids on board Trend labs Adjust therapy as indicated Avoid nephrotoxic medications Renally adjust medications Urine studies Urine sodium 78, urine urea 428, creatinine 86.4 FENa 1.7 intrinsic probably related to the renal mass and nephrectomy Could be new baseline (2) Incarcerated ventral hernia: Code(s): K43.6 - Other and unspecified ventral hernia with obstruction, without gangrene Status: Acute Assessment and Plan: Status post repair General surgery to manage Pain medications on board Antibiotics x3 Bags Trend white blood cell count Surgical wound care Trend for signs of infection (3) Right renal mass: Code(s): N28.89 - Other specified disorders of kidney and ureter Status: Acute Assessment and Plan: Right nephrectomy performed 05/10/2022 Postop care managed by Urology Trend pain Pain medications on board Adjust therapy as indicated (4) ETOH abuse: Code(s): F10.10 - Alcohol abuse, uncomplicated Status: Acute Assessment and Plan: Start thiamine and folic acid CIWA per protocol Cessation education Librium p.r.n. (5) Peripheral neuropathy: Code(s): G62.9 - Polyneuropathy, unspecified Status: Acute Assessment and Plan: Continue home medications (6) Tobacco abuse: Code(s): Z72.0 - Tobacco use Status: Acute Assessment and Plan: Nicotine patch and gum Cessation education for 8 minutes (7) Hypertension: Qualifiers: Hypertension type: primary hypertension Qualified Code(s): I10 - Essential (primary) hypertension Code(s): I10 - Essential (primary) hypertension Status: Acute Assessment and Plan: Current blood pressure 141/77 Continue home medications Trend blood pressure Adjust therapy as indicated Time Spent With Patient Time with patient: Greater than 35 minutes Subjective Date/time seen: 05/11/22 10:30 Interval history: 05/11/22 1030 Patient was sitting in the chair and he stated that he is ready to go. Talked to Urology who is able to take out the Knott. He denies any chest pain, shortness with, nausea, vomiting, diarrhea, constipation, weakness or fatigue. Is biggest complaint was he does have pain with the incision sites. Talked to the patient about smoking cessation gave him extra education about the cessation due to the fact that he has only 1 kidney at this time. He is willing to take Chantix and other cessation meds to assist with quitting at this time. Will have patient recheck his labs in 1 week and follow up with his primary care provider an appointment has been provided. 05/10/22 Kar Sloan is a 61 year old male with past medical history of kidney stones, peripheral neuropathy, incarcerated hernia who presented the ED with a ventral hernia and a right kidney mass.? Patient was taken OR by General surgery and by Urology for right nephrectomy and hernia repair.? We have been asked to consult for medical management.? Patient stated that he is having some pain today a /10.? He did state that the he does not wear oxygen home.? His catheter is draining a clear yellow urine.? He denies any chest pain, shortness of breath, nausea, vomiting, abdominal pain, weakness or fatigue.? He denies any sweats fevers or chills at this time.? Lab values appear stable as his BUN creatinine are going down.? Patient does have multiple ant insertion sites however they do look stable and her covered with glue at this time.? Lab works seems to be doing better a
[2022-05-11 11:10] LABS: Creatinine Urine 86.4 mg/dL
--- NOTE | 2022-05-11 11:11 | PM.PNGS ---
Progress Note: A&P Assessment and Plan (1) Incarcerated ventral hernia: Code(s): K43.6 - Other and unspecified ventral hernia with obstruction, without gangrene Status: Acute Assessment and Plan: Postop day 1 and doing well. Okay to discharge from our standpoint when okay with all other services. Follow-up with Dr. Benjamin as scheduled in 2 weeks. Discussed discharge instructions with the patient. (2) Right renal mass: Code(s): N28.89 - Other specified disorders of kidney and ureter Status: Acute Plan I have discussed the patient's case and plan of care with Dr. Benjamin. Subjective Subjective Date/Time Seen: 05/11/22 11:11 Post Op day: 1 (OLIVIA right nephrectomy, ventral hernia repair) Patient reports: tolerating liquids well, flatus, no bowel movement and afebrile Interval history: Patient seen and examined. Reports incisional pain is controlled. Sitting in a chair at the time of my exam. No specific complaints. Review of Systems Review of Systems: All systems reviewed & are unremarkable except as noted in HPI and below Exam Const: General: no acute distress and alert Orientation/consciousness: patient oriented x3 GI: Inspection: non-distended and incision (Abdominal incisions dry and glue intact) GI Palp: Yes Soft to palpation and Yes Tenderness to palpation present (GI) (Incisional) Auscultation: normal bowel sounds Urinary Catheter: Urinary Catheter: patent and draining Extrem: General: normal to inspection and no calf tenderness Psych: Mental Status: mental status grossly normal Objective Data Vital Signs Vital Signs: Vital Signs - 24 hr 05/10/22 11:20 05/10/22 11:35 05/10/22 11:50 Temperature Pulse Rate 59 L 60 55 L Pulse Rate [Monitor] Respiratory Rate 12 12 10 L Blood Pressure 144/89 H 132/85 142/84 H Pulse Oximetry 100 95 97 Oxygen Delivery Simple Face Mask Room Air Nasal Cannula Oxygen Flow Rate 8 2 05/10/22 12:05 05/10/22 12:20 05/10/22 12:35 Temperature Pulse Rate 52 L 55 L 54 L Pulse Rate [Monitor] Respiratory Rate 12 12 12 Blood Pressure 135/82 132/77 132/80 Pulse Oximetry 97 100 99 Oxygen Delivery Nasal Cannula Nasal Cannula Nasal Cannula Oxygen Flow Rate 2 2 2 05/10/22 12:50 05/10/22 13:05 05/10/22 15:30 Temperature 97.6 F Pulse Rate 50 L 49 L 52 L Pulse Rate [Monitor] Respiratory Rate 10 L 10 L 12 Blood Pressure 130/82 139/78 149/80 H Pulse Oximetry 98 96 95 Oxygen Delivery Nasal Cannula Nasal Cannula Oxygen Flow Rate 2 2 05/10/22 15:45 05/10/22 16:15 05/10/22 17:15 Temperature 97.6 F 97.6 F 97.9 F Pulse Rate 57 L 58 L 55 L Pulse Rate [Monitor] Respiratory Rate 12 14 14 Blood Pressure 142/78 H 138/74 140/80 Pulse Oximetry 96 97 98 Oxygen Delivery Oxygen Flow Rate 05/10/22 19:32 05/10/22 20:00 05/10/22 22:36 Temperature 97.2 F L Pulse Rate 67 Pulse Rate [Monitor] 78 Respiratory Rate 17 Blood Pressure 145/82 H Pulse Oximetry 98 98 Oxygen Delivery Nasal Cannula Oxygen Flow Rate 2 05/10/22 23:47 05/10/22 23:04 05/11/22 03:13 Temperature 98.4 F Pulse Rate 64 Pulse Rate [Monitor] 67 65 Respiratory Rate 17 Blood Pressure 158/62 H Pulse Oximetry 96 Oxygen Delivery Oxygen Flow Rate 05/11/22 04:32 05/11/22 08:00 05/11/22 09:58 Temperature 97.8 F Pulse Rate 68 68 Pulse Rate [Monitor] Respiratory Rate 17 16 Blood Pressure 141/77 H 139/77 Pulse Oximetry 96 96 96 Oxygen Delivery Room Air Oxygen Flow Rate 05/11/22 10:00 05/11/22 09:55 Temperature Pulse Rate 68 Pulse Rate [Monitor] 72 Respiratory Rate Blood Pressure Pulse Oximetry Oxygen Delivery Oxygen Flow Rate Intake/Output Intake/Output: Intake & Output 05/08/22 05/09/22 05/10/22 05/11/22 23:59 23:59 23:59 23:59 Intake Total 3500 1870 Output Total 770 1050 Balance 2730 820 Meds/Results Medications: Active Medications Generic Name Dos
[2022-05-11 11:40] LABS: Sodium Urine Random 78 meq/L; Urea Random Urine 428 MG/DL
[2022-05-11] MEDS: HYDROcodone/acetaminophen (*CRX) 5-325 MG TABLET 2 TAB PO (12:18)
--- NOTE | 2022-05-11 15:09 | PC.NURSE ---
awaiting pharmacy to send 1400 keflex tablet. Will give when received
--- NOTE | 2022-05-11 16:12 | WPDUROPN2 ---
Progress Note: A&P Assessment and Plan (1) Acute on chronic renal failure: Code(s): N17.9 - Acute kidney failure, unspecified; N18.9 - Chronic kidney disease, unspecified Status: Acute Assessment and Plan: Patient will get repeat labs and follow up per hospitalist. (2) Right renal mass: Code(s): N28.89 - Other specified disorders of kidney and ureter Status: Acute Assessment and Plan: Follow up in [address] ward. Remove mendes and do a voiding trial, ok to discharge home when he urinates. (3) Incarcerated ventral hernia: Code(s): K43.6 - Other and unspecified ventral hernia with obstruction, without gangrene Status: Acute Plan Ok to discharge per [facility]. Subjective Subjective Date/Time Seen: 05/11/22 16:12 POD #1 Hand assisted laparoscopic right nephrectomy. Ventral hernia repair by Dr Lobato The patient is doing very well, he is up in his chair, tolerating diet and activity well. He is tolerating his pain well. Post Op day: 1 Review of Systems Cardiovascular: Cardiovascular: Denies chest pain Respiratory: Respiratory: Reports no additional respiratory complaints Gastrointestinal: Gastrointestinal: Reports abdominal pain (at incisions only), Denies nausea and Denies vomiting Genitourinary: Genitourinary: Denies hematuria and Denies flank pain Exam Const: General: cooperative and comfortable Resp: Effort & Inspection: normal respiratory effort GI: Inspection: incision (all are well approximated, no drainage present, edema or errythema.) GI Palp: Yes Soft to palpation and Yes Tenderness to palpation present (GI) (at incsions only) : General: Yes no CVA tenderness Back/Spine/Pelvis: Back: No CVA tenderness Objective Data Vital Signs Vital Signs: Vital Signs - 24 hr 05/10/22 16:15 05/10/22 17:15 05/10/22 19:32 Temperature 97.6 F 97.9 F 97.2 F L Pulse Rate 58 L 55 L 67 Pulse Rate [Monitor] Respiratory Rate 14 14 17 Blood Pressure 138/74 140/80 145/82 H Pulse Oximetry 97 98 98 Oxygen Delivery Oxygen Flow Rate 05/10/22 20:00 05/10/22 22:36 05/10/22 23:47 Temperature Pulse Rate Pulse Rate [Monitor] 78 67 Respiratory Rate Blood Pressure Pulse Oximetry 98 Oxygen Delivery Nasal Cannula Oxygen Flow Rate 2 05/10/22 23:04 05/11/22 03:13 05/11/22 04:32 Temperature 98.4 F 97.8 F Pulse Rate 64 68 Pulse Rate [Monitor] 65 Respiratory Rate 17 17 Blood Pressure 158/62 H 141/77 H Pulse Oximetry 96 96 Oxygen Delivery Oxygen Flow Rate 05/11/22 08:00 05/11/22 09:58 05/11/22 10:00 Temperature Pulse Rate 68 68 Pulse Rate [Monitor] Respiratory Rate 16 Blood Pressure 139/77 Pulse Oximetry 96 96 Oxygen Delivery Room Air Oxygen Flow Rate 05/11/22 09:55 05/11/22 12:00 05/11/22 15:04 Temperature 98.7 F Pulse Rate 68 Pulse Rate [Monitor] 72 86 Respiratory Rate 16 Blood Pressure 123/66 Pulse Oximetry 98 Oxygen Delivery Oxygen Flow Rate Intake/Output Intake/Output: Intake & Output 05/08/22 05/09/22 05/10/22 05/11/22 23:59 23:59 23:59 23:59 Intake Total 3500 2378 Output Total 770 1425 Balance 2730 953 Meds/Results Medications: Active Medications Generic Name Dose Route Start Last Admin Trade Name Freq PRN Reason Stop Dose Admin Hydrocodone Bitart/Acetaminophen 1 tab 05/11/22 05:00 Hydrocodone/Acetaminophen (*Crx) 5-325 Mg Tablet PO Q4H PRN Pain Rated 1-3 Hydrocodone Bitart/Acetaminophen 2 tab 05/11/22 05:00 05/11/22 12:18 Hydrocodone/Acetaminophen (*Crx) 5-325 Mg Tablet PO 2 tab Q4H PRN Administration Pain Rated 4-6 Amlodipine Besylate 10 mg 05/11/22 09:00 05/11/22 10:00 Amlodipine Besylate 5 Mg Tablet PO 10 mg QAM GIANNI Administration Cephalexin HCl 500 mg 05/11/22 14:00 Cephalexin 500 Mg Capsule PO Q6H GIANNI Chlordiazepoxide HCl 25 mg 05/10/22 22:36 C
[2022-05-14 09:57] LABS: Osmolality, Urine 347 mOsm/kg (50-1200)
--- NOTE | 2022-06-08 16:09 | PM.DS ---
DS: Admitting Diagnosis Discharge Date 05/11/22 Admitting Diagnosis Right Renal Mass Ventral Hernia DS: Discharge Diagnosis Discharge Diagnosis Plan Right Renal Mass Ventral Hernia DS: Summary Hospital Course Hospital Course: The patient was admitted following a Hand assisted laparoscopic right nephrectomy by Dr. Mayberry and Ventral hernia repair by Dr Lobato, on 05/10/22. He was sent to recovery in stable condition and to the floor for further evaluation overnight. He did well overnight, tolerated pain, activity and his diet. He was then discharged home the on post operative day 1 to resume light activity, no straining, diet as tolerated and all home medications except? NSAID's or blood thinners. Time spent discussing smoking cessation with patient: more than 10 minutes Status at Discharge Functional status at discharge: independent ambulation Overall status at discharge: patient is progressing back to baseline Time Spent with Patient Time attestation: Total time spent providing and/or coordinating discharge services: Time spent: Less than 30 minutes Exam Const: General: cooperative Resp: Effort & Inspection: normal respiratory effort Cardio: Rate: regular rate GI: GI Palp: Yes Soft to palpation and No Tenderness to palpation present (GI) : General: Yes no CVA tenderness Extrem: Right lower extremity: no edema Left lower extremity: no edema DS: Data Data Completed and Pending Completed studies during hospitalization: Pending at discharge 05/10/22 09:56 Surgical [PTH] Routine Surgical [PTH] Routine Discharge Plan Discharge Attending physician on discharge: Vitor Mayberry Consulting providers: Marco Davidson ; Tiarra Bonilla ; Serafin Yeboah Discharging Clinician: Jeana Plummer Anticipated Discharge Date/Time: 05/11/22 16:00 Patient Disposition: Home, Self-Care Activity: may shower, no straining and other - see discharge instructions Diet: as tolerated Wound Care Instructions: incision open to air Discharge Instructions: Urology Instructions: You will follow up with Dr. Mayberry on May 26, 2022 at 8:30am in our [place] office. Call the office if you develop blood in your urine, severe abdominal pain, incisional discharge, bleeding, swelling or redness. Your incisions can be gently cleansed with soap and water in the shower and you should pat them dry after showering. Avoid submerging in any water for 4 weeks such as swimming pools, hot tubs, [place], lakes etc. to prevent infection at your incision sites. Call the office if you develop a fever. Do not drive on pain medication. DISCHARGE INSTRUCTION SHEET FOR HERNIA SURGERIES DR. YEBOAH 1. May shower in 24 hours, no soaking in bath x 2weeks. 2. Call office for: Wound increasingly painful or bleeding Vomiting Fever of greater than 101 degrees 3. If no bowel movement for three days, take 1 oz. (30 ml) Milk of Magnesia or MiraLax 17g 1 to 2 times daily. Recommend taking a stool softener daily. 4. No heavy lifting > 10-15 pounds until instructed further by your surgeon. 5. No driving for 3 days or while taking narcotic pain medications. 6. Ice to surgical site for 48 hours (30 min on, then 30 min off). 7. Up walking 10-30 minutes three times per day. 8. Resume previous home medications as directed. 9. Follow-up with Dr. Yeboah on 05/24/22 at 9:45 am in our office. Our office is located in [address] at [facility]. Call sooner with any surgical questions or concerns. 10. Oral pain medications prescription to be sent to pharmacy. Hospitalist Instruction Get labs in one week Follow up with primary at appointment that was given Trend urinary output Eat well balanced meals Thank you for let us take care of you it has been my pleasure Patient Instructions: Antibiotic Form
== END 2022-05-11 17:32 | disposition home or self-care (01) | DRG 657 ==
LOC: ANH2MED 15:16
PROVIDERS: Nurse Practitioner; Surgery; Admitting Provider Urology; PCP Physician Assistant; Visit Provider Nurse Practitioner Adult Health
PROC: 0TT00ZZ Resection of Right Kidney, Open Approach (ICD-10-PCS; principal; 2022-05-10 07:30)
PROC: 0WUF0JZ Supplement Abdominal Wall with Synthetic Substitute, Open Approach (ICD-10-PCS; 2022-05-10 07:30)
DX: C64.9 Malignant neoplasm of unspecified kidney, except renal pelvis (principal); K43.6 Other and unspecified ventral hernia with obstruction, without gangrene; N17.9 Acute kidney failure, unspecified; I12.9 Hypertensive chronic kidney disease with stage 1 through stage 4 chronic kidney disease, or unspecified chronic kidney disease; N18.9 Chronic kidney disease, unspecified; F10.10 Alcohol abuse, uncomplicated; F17.210 Nicotine dependence, cigarettes, uncomplicated; G62.9 Polyneuropathy, unspecified; Z87.442 Personal history of urinary calculi
CPT/HCPCS: 36415; 80048; 82570; 83935; 84300; 84540; 85025; 88302; 88307; 88313; A9270; C1781; C9290; J0690; J1100; J1170; J1885; J2250; J2370; J2405; J2704; J3010; J7030; J7120; J7121

== ENCOUNTER 2022-05-25 15:23 | Outpatient (CLI) | payer OTHER, SELFPAY ==
--- NOTE | ~2022-05-25 | XR_ITS ---
EXAM: XR_[id number]_CR DATE: 05/25/2022 15:45 HISTORY: DEFORMITY OF BONE IN FOOT, CHRONIC NECK PAIN . COMPARISON: None available. FINDINGS: Craniocervical association and atlantoaxial joint are aligned with moderate degenerative c hange. No prevertebral soft tissue swelling. 2 mm anterolisthesis of C3 on C4. 3 mm anterolisthesis o f C4 on C5. Vertebral body heights are maintained. Multilevel disc space narrowing and marginal osteo phytosis, with prominent anterior osteophyte formation in the mid and lower cervical spine. Multileve l severe facet sclerosis and hypertrophy. IMPRESSION: Grade 1 degenerative listheses at C3-4 and C4-5. Multilevel degenerative disc disease wit h large anterior osteophytes. Multilevel severe facet arthropathy. Reviewed, dictated and finalized at location K. IMPRESSION: Grade 1 degenerative listheses at C3-4 and C4-5. Multilevel degener ative disc disease with large anterior osteophytes. Multilevel severe facet art hropathy.
--- NOTE | ~2022-05-25 | XR_ITS ---
XR foot LT min 3V DATE: 05/25/2022 15:46 INDICATION: Foot deformity TECHNIQUE: 4 views COMPARISON: None FINDINGS: There is bony hypertrophy at the fusion at the first metatarsophalangeal joint No recent fracture or dislocation, periosteal reaction or bone destruction is detected. Plantar and posterior calcaneal enthesopathy. Anterior and posterior tibial artery calcification.. IMPRESSION: Hypertrophic bony fusion at first metatarsophalangeal joint Plantar and posterior calcaneal enthesopathy Arterial calcifications Reviewed, dictated and finalized at location B.
== END 2022-05-25 15:24 | disposition home or self-care (01) ==
PROVIDERS: PCP Physician Assistant; Visit Provider Physician Assistant
DX: M21.6X9 Other acquired deformities of unspecified foot (principal); M77.32 Calcaneal spur, left foot; M50.321 Other cervical disc degeneration at C4-C5 level; M50.320 Other cervical disc degeneration, mid-cervical region, unspecified level
CPT/HCPCS: 72040; 73630

== ENCOUNTER 2022-05-26 09:16 | Outpatient (CLI) | payer OTHER, SELFPAY ==
[2022-05-26 10:18] LABS: Alanine Aminotransferase 14 U/L (6-50); Albumin Level 3.9 g/dL (3.5-5.1); Alkaline Phosphatase 67 U/L (38-126); Anion Gap 12 mmol/L (8-16); Aspartate Amino Transferase 17 U/L (17-59); Bilirubin,Total 0.1 mg/dL (0.2-1.3); Blood Urea Nitrogen 59 mg/dL (9-20); Calcium 9.1 mg/dL (8.4-10.2); Carbon Dioxide 17 mmol/L (22-30); Chloride 112 mmol/L (98-107); Estimated Glomerular Filt Rate 12; Glucose 106 mg/dL (65-110); Potassium 5.6 mmol/L (3.4-5.0); Sodium 141 mmol/L (137-145)
--- NOTE | 2022-06-01 16:04 | PM.DS ---
DS: Admitting Diagnosis Discharge Date 05/26/22 Admitting Diagnosis Right Renal Mass Ventral hernia DS: Discharge Diagnosis Discharge Diagnosis Plan Right Renal Mass Ventral Hernia DS: Summary Hospital Course Hospital Course: The patient was admitted following a Hand assisted laparoscopic right nephrectomy by Dr. Mayberry and Ventral hernia repair by Dr Lobato, on 05/10/22. He was sent to recovery in stable condition and to the floor for further evaluation overnight. He did well overnight, tolerated pain, activity and his diet. He was then discharged home the on post operative day 1 to resume light activity, no straining, diet as tolerated and all home medications except NSAID's or blood thinners. Time spent discussing smoking cessation with patient: more than 10 minutes Time Spent with Patient Time attestation: Total time spent providing and/or coordinating discharge services: Exam Resp: Effort & Inspection: normal respiratory effort Cardio: Rate: regular rate GI: Inspection: incision (well approximated, no drainage present, no edema or redness, tenderness) GI Palp: Yes Soft to palpation and No Tenderness to palpation present (GI) : General: Yes no CVA tenderness Urinary Catheter: Urinary Catheter: patent and draining and urine clear Extrem: Right lower extremity: no edema Left lower extremity: no edema Discharge Plan Discharge Patient Disposition: Home, Self-Care Discharge Medications: No Action hydralazine 10 mg Tablet 10 mg PO TID lisinopril 20 mg Tablet 20 mg PO QAM amlodipine 10 mg Tablet 10 mg PO QAM metoprolol succinate 100 mg Capsule,Sprinkle,Er 24hr 100 mg PO QAM aspirin 81 mg Tablet,Delayed Release (Dr/Ec) 81 mg PO DAILY Hold Instructions: Resume on 05/18/22. cholecalciferol (vitamin D3) 1 cap QAM cephalexin 500 mg capsule 500 mg PO Q12H Qty: 14 0RF docusate sodium [Colace] 100 mg capsule 100 mg PO BID Qty: 20 0RF nicotine (polacrilex) 4 mg Gum 4 mg PO PRN PRN (Reason: Nicotine Cravings) Qty: 50 0RF nicotine [Nicoderm CQ] 21 mg/24 hr Patch 24 Hour 1 patch transdermal QAM Qty: 28 0RF varenicline 0.5 mg (11)- 1 mg (42) tablets,dose pack See Rx Instructions .ROUTE .COMPLEX Qty: 53 0RF Rx Instructions: orally per package directions
== END 2022-05-26 09:17 | disposition home or self-care (01) ==
LOC: ANHLAB 09:17
PROVIDERS: PCP Physician Assistant; Visit Provider Urology
DX: N28.89 Other specified disorders of kidney and ureter (principal)
CPT/HCPCS: 36415; 80053

== ENCOUNTER 2022-06-01 13:33 | Outpatient (CLI) | payer OTHER, SELFPAY | END 2022-06-01 13:34 | disposition home or self-care (01) | LOC: ANHAUDIO 13:34 | PROVIDERS: PCP Physician Assistant; Visit Provider Physician Assistant | DX: H90.41 Sensorineural hearing loss, unilateral, right ear, with unrestricted hearing on the contralateral side (principal); H90.72 Mixed conductive and sensorineural hearing loss, unilateral, left ear, with unrestricted hearing on the contralateral side | CPT/HCPCS: 92557; 92567 ==

== ENCOUNTER 2022-07-15 10:58 | Emergency (ER) | payer OTHER, SELFPAY ==
--- NOTE | ~2022-07-15 | XR_ITS ---
XR hand RT min 3V 07/15/2022 11:12 Indication: Dog bite base of the right fifth metacarpal Procedure: 3 views right hand Comparison: No prior studies for comparison. Findings: There is mild soft tissue swelling overlying the fifth metacarpal proximally. There is mild polyarticular osteoarthritis. No acute fracture or traumatic malalignment. No foreign bodies. Impression: 1: Mild polyarticular osteoarthritis. 2: No acute fracture. 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 Impression: 1: Mild polyarticular osteoarthritis. 2: No acute fracture.
[2022-07-15 10:59] VITALS: BP 173/84; PULSE 79; RESP 18; TEMP 36.3; O2SAT 100
--- NOTE | 2022-07-15 11:29 | ED.ANIMALBIT ---
HPI - Animal Bite General Chief Complaint: Animal Bite Stated Complaint: dog bite Time Seen by Provider: 07/15/22 11:04 Source: patient Mode of arrival: ambulatory Limitations: no limitations History of Present Illness HPI narrative: This is a 61 year old male that presents to the ER for dos bite to the right hand sustained just prior to arrival. Reports his brother's dog bit him. The dog is up to date on it's vaccinations. Patient has not had a tetanus vaccination recently. Denies decreased ROM or numbness. Related Data Home Medications Medication Instructions Recorded Confirmed amlodipine 10 mg tablet 10 mg PO QAM 12/30/21 06/21/22 hydralazine 10 mg tablet 10 mg PO TID 12/30/21 06/21/22 lisinopril 20 mg tablet 20 mg PO QAM 12/30/21 06/21/22 metoprolol succinate 100 mg 100 mg PO QAM 12/30/21 06/21/22 capsule sprinkle, ext. release 24 hr aspirin 81 mg tablet,delayed 81 mg PO DAILY 05/02/22 06/21/22 release cholecalciferol (vitamin D3) 1 cap QAM 05/02/22 06/21/22 Allergies Allergy/AdvReac Type Severity Reaction Status Date / Time No Known Allergies Allergy Verified 06/21/22 09:39 Review of Systems Review of Systems: All systems reviewed & are unremarkable except as noted in HPI and below Constitutional: Constitutional: Denies fever(s) Integumentary/Breasts: Comments: Reports laceration Neurologic: Denies numbness PMFSH Past Medical History Medical History Acute on chronic renal failure ETOH abuse Hypertension Incarcerated ventral hernia Kidney stones Peripheral neuropathy Right renal mass Tobacco abuse Surgical History Surgical History H/O hernia repair H/O right nephrectomy H/O ventral hernia repair Incarcerated Ventral Hernia repair w poss mesh 05/10/22. Family History Family History Other Diabetes mellitus Family history of arthritis Family history of cardiovascular disease Family history of malignant neoplasm Hypertension Social History Social History Social History: Patient elects his brother Martin to be his surrogate. He has no kids or pets at this time. Patient wishes to be a full code. Smoking packs per day: 1.5 Smoking cigarettes per day: 30.0 Years smoked: 48 Smoking pack-years: 72.00 Smoking status: Current every day smoker Tobacco type: cigarettes Second hand tobacco smoke exposure: Yes Additional smoking assessment comments: STATES STARTING SMOKING AGE 13 Alcohol intake: current Drinks per week: 21 Alcohol use details: 3 DRINKS NIGHTLY Substance use: former Substance use type: does not use Additional occupation/education comments: [employer] Gender identity (if verbalized by the patient): Male Sexual Orientation (if Verbalized by the Patient): Straight or Heterosexual Spiritual care concerns: No Agree to blood products: Yes Exam Const: General: healthy appearing and no acute distress Skin: General skin exam: normal color Other: 3cm irregular laceration into subcutaneous tissue to the dorsal surface of the right hand Course Vital Signs Vital signs: Vital Signs Temperature 97.4 F L 07/15/22 10:59 Pulse Rate 79 07/15/22 10:59 Respiratory Rate 18 07/15/22 10:59 Blood Pressure 173/84 H 07/15/22 10:59 Pulse Oximetry 100 07/15/22 10:59 Temperature 97.4 F L 07/15/22 10:59 Pulse Rate 79 07/15/22 10:59 Respiratory Rate 18 07/15/22 10:59 Blood Pressure 173/84 H 07/15/22 10:59 Pulse Oximetry 100 07/15/22 10:59 Procedures Laceration Laceration 1: Date: 07/15/22 Time: 11:32 Site: hand Side (If applicable): right Size (cm): 3 Description: irregular Depth: simple, single layer Pre-repair: wound explored and irrig
[2022-07-15] MEDS: TETANUS,DIPHTHERIA,AC PERTUSSIS ADULT (0.5 ML) BOOSTRIX IM (11:33)
== END 2022-07-15 11:46 | disposition home or self-care (01) ==
LOC: ANHED 11:39
PROVIDERS: Emergency Provider Emergency Medicine; PCP Physician Assistant
DX: S61.451A Open bite of right hand, initial encounter (principal); W54.0XXA Bitten by dog, initial encounter; I10 Essential (primary) hypertension; G62.9 Polyneuropathy, unspecified; Z79.82 Long term (current) use of aspirin; Z90.5 Acquired absence of kidney; F17.210 Nicotine dependence, cigarettes, uncomplicated; Z23 Encounter for immunization
CPT/HCPCS: 73130; 90471; 90715; 99283

== ENCOUNTER 2022-08-16 09:00 | Outpatient (RCR) | payer OTHER, SELFPAY | END 2022-08-16 23:59 | disposition home or self-care (01) | LOC: ANHAUDIO 09:00 | PROVIDERS: PCP Physician Assistant; Visit Provider Physician Assistant | DX: Z46.1 Encounter for fitting and adjustment of hearing aid (principal) | CPT/HCPCS: 99199; V5257 ==

== ENCOUNTER 2022-11-14 02:40 | Day surgery (SDC) | payer OTHER, SELFPAY ==
[2022-10-31 09:15] VITALS: BMI 27.1
--- NOTE | 2022-11-11 15:23 | PM.HPGS ---
History of Present Illness History of Present Illness Consent: Risks, benefits, and alternatives have been discussed and questions answered. Patient agrees to proceed with procedure. Chief complaint: neoplasm screening Narrative: Kar Sloan is a 62 year old male referred for colon cancer screening. Review of Systems Review of Systems: All systems reviewed & are unremarkable except as noted in HPI and below PMFSH Past Medical History Medical History Acute on chronic renal failure ETOH abuse Hypertension Incarcerated ventral hernia Kidney stones Peripheral neuropathy Right renal mass Tobacco abuse Surgical History Surgical History H/O hernia repair H/O right nephrectomy H/O ventral hernia repair Incarcerated Ventral Hernia repair w poss mesh 05/10/22. Family History Family History Other Diabetes mellitus Family history of arthritis Family history of cardiovascular disease Family history of malignant neoplasm Hypertension Social History Social History Social History: Patient elects his brother Martin to be his surrogate. He has no kids or pets at this time. Patient wishes to be a full code. Smoking packs per day: 1.5 Smoking cigarettes per day: 30.0 Years smoked: 40 Smoking pack-years: 60.00 Smoking status: Current every day smoker Tobacco type: cigarettes Second hand tobacco smoke exposure: Yes Additional smoking assessment comments: STATES STARTING SMOKING AGE 13 Alcohol intake: current Drinks per week: 7 Alcohol use details: 4 oz vodka daily Substance use: former Substance use type: does not use Living arrangements: alone Occupation/Education: occupation Additional occupation/education comments: [employer] Gender identity (if verbalized by the patient): Male Sexual Orientation (if Verbalized by the Patient): Straight or Heterosexual Spiritual care concerns: No Agree to blood products: Yes Meds Home Medications and Allergies Home Medications Medication Instructions Recorded Confirmed Type amlodipine 10 mg tablet 10 mg PO QAM 12/30/21 10/31/22 History metoprolol succinate 100 mg 100 mg PO QAM 12/30/21 10/31/22 History capsule sprinkle, ext. release 24 hr aspirin 81 mg tablet,delayed 81 mg PO DAILY 05/02/22 10/31/22 History release cholecalciferol (vitamin D3) 1 cap PO QAM 05/02/22 10/31/22 History hydralazine 25 mg tablet 25 mg PO BID 10/31/22 10/31/22 History sodium bicarbonate 650 mg tablet 650 mg PO BID 10/31/22 10/31/22 History Allergies Allergy/AdvReac Type Severity Reaction Status Date / Time No Known Allergies Allergy Verified 10/31/22 09:10 Exam Const: General: alert Orientation/consciousness: patient oriented x3 Resp: Auscultation: clear to auscultation bilaterally Cardio: Rhythm: regular rhythm GI: GI Palp: Yes Soft to palpation and No Tenderness to palpation present (GI) Neuro: General: patient oriented x3 Assessment and Plan Assessment and plan (1) Colon cancer screening: Code(s): Z12.11 - Encounter for screening for malignant neoplasm of colon Status: Acute Assessment and Plan: Colonoscopy with possible biopsy or polypectomy or cautery or injection of substances.
[2022-11-14 10:25] VITALS: BP 167/80; PULSE 75; RESP 18; TEMP 36.3; O2SAT 100; BMI 27.3
--- NOTE | 2022-11-14 10:54 | WPDANESEPPF ---
Anes - Initial Pre Proc Eval Procedure: Operation Date: 11/14/22 11:30 Proposed Procedures p Colonoscopy - Roe Bhatt MD Date/Time: 11/14/22 10:54 Surgeon: Roe Bhatt MD Pre Op Diagnosis: neoplasm screening Patient Data Age: 62 Gender: M Height: 1.83 m Weight: 91.5 kg Last Vital Signs Temp 97.4 F L 11/14/22 10:25 Pulse 75 11/14/22 10:25 Resp 18 11/14/22 10:25 BP 167/80 H 11/14/22 10:25 Pulse Ox 100 11/14/22 10:25 O2 Del Method Room Air 11/14/22 10:25 Allergies Allergy/AdvReac Type Severity Reaction Status Date / Time No Known Allergies Allergy Verified 10/31/22 09:10 Home Medications Medication Instructions Recorded Confirmed Type amlodipine 10 mg tablet 10 mg PO QAM 12/30/21 10/31/22 History metoprolol succinate 100 mg 100 mg PO QAM 12/30/21 10/31/22 History capsule sprinkle, ext. release 24 hr aspirin 81 mg tablet,delayed 81 mg PO DAILY 05/02/22 10/31/22 History release cholecalciferol (vitamin D3) 1 cap PO QAM 05/02/22 10/31/22 History hydralazine 25 mg tablet 25 mg PO BID 10/31/22 10/31/22 History sodium bicarbonate 650 mg tablet 650 mg PO BID 10/31/22 10/31/22 History Patient hx anesthesia problems: none Family hx anesthesia problems: none Results Review: All pre-operative results and documents have been reviewed as part of the pre-operative evaluation. [facility] Past Medical History Medical History Acute on chronic renal failure ETOH abuse Hypertension Incarcerated ventral hernia Kidney stones Peripheral neuropathy Right renal mass Tobacco abuse Surgical History Surgical History H/O hernia repair H/O right nephrectomy H/O ventral hernia repair Incarcerated Ventral Hernia repair w poss mesh 05/10/22. Family History Family History Other Diabetes mellitus Family history of arthritis Family history of cardiovascular disease Family history of malignant neoplasm Hypertension Social History Social History Social History: Patient elects his brother Martin to be his surrogate. He has no kids or pets at this time. Patient wishes to be a full code. Smoking packs per day: 1.5 Smoking cigarettes per day: 30.0 Years smoked: 40 Smoking pack-years: 60.00 Smoking status: Current every day smoker Tobacco type: cigarettes Second hand tobacco smoke exposure: Yes Additional smoking assessment comments: STATES STARTING SMOKING AGE 13 Alcohol intake: current Drinks per week: 7 Alcohol use details: 4 oz vodka daily Substance use: former Substance use type: does not use Living arrangements: alone Occupation/Education: occupation Additional occupation/education comments: [employer] Gender identity (if verbalized by the patient): Male Sexual Orientation (if Verbalized by the Patient): Straight or Heterosexual Spiritual care concerns: No Agree to blood products: Yes Anes - Eval Final PreProcedure Day of Procedure 11/14/22 10:54 Patient weight: normal Heart: regular rate and rhythm Lungs: clear to auscultation Airway: Mallampati scale class II Neurological: alert and oriented Last oral intake: >/= 8 hours ASA classification: III Emergent: no Anesthetic plan: proceed Anesthesia type and monitoring: general GIVS and standard monitoring Results Review: All pre-operative results and documents have been reviewed as part of the pre-operative evaluation. Informed Consent: The patient's anesthetic plan and its attendant risks and benefits were discussed with the patient/family/POA. Questions were solicited and answers provided to the satisfaction of the patient/family/POA.
[2022-11-14] MEDS: SODIUM CHLORIDE 0.9% IV 500 ML BAG IRRIGATION (10:55)
[2022-11-14] MEDS: SODIUM CHLORIDE 0.9% IV 500 ML 10 ML IV CONT (11:00)
[2022-11-14] MEDS: SIMETHICONE ORAL SUSPENSION 20 MG/0.3 ML 30 ML BOTTLE 0.6 ML IRRIGATION (11:42)
[2022-11-14 11:54] VITALS: BP 112/55; PULSE 67; RESP 17; O2SAT 96
[2022-11-14 12:04] VITALS: BP 144/82; PULSE 66; RESP 18; O2SAT 95
[2022-11-14 12:14] VITALS: BP 151/83; PULSE 69; RESP 17; O2SAT 98
== END 2022-11-14 12:33 | disposition home or self-care (01) ==
PROVIDERS: PCP Physician Assistant; Visit Provider Internal Medicine Gastroenterology
PROC: 0DJD8ZZ Inspection of Lower Intestinal Tract, Via Natural or Artificial Opening Endoscopic (ICD-10-PCS; CPT 45378; principal; 2022-11-14 11:30)
DX: Z12.11 Encounter for screening for malignant neoplasm of colon (principal); K57.30 Diverticulosis of large intestine without perforation or abscess without bleeding; D12.5 Benign neoplasm of sigmoid colon; D12.0 Benign neoplasm of cecum; I10 Essential (primary) hypertension; Z79.82 Long term (current) use of aspirin; Z90.5 Acquired absence of kidney; F17.210 Nicotine dependence, cigarettes, uncomplicated
CPT/HCPCS: 45385; 45381; 88305; J2704; J7040

== ENCOUNTER 2022-12-05 12:14 | Outpatient (CLI) | payer OTHER, SELFPAY ==
--- NOTE | ~2022-12-05 | XR_ITS ---
XR chest 2V 12/05/2022 15:27 Indication: Right renal mass. Procedure: 2 view chest Comparison: 04/23/2019 Findings: Heart size normal. Small bilateral pleural effusions. No focal pneumonia, edema or pneumoth orax. There is atherosclerosis. No acute osseous abnormality. No pulmonary nodules. Impression: 1: Small pleural effusions. 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
--- NOTE | ~2022-12-05 | CT_ITS ---
Non-contrast CT scan of the Abdomen and Pelvis Clinical indication: Right renal mass Technique: 5 mm axial scans were obtained through the abdomen and pelvis without intravenous or oral contrast. Dose reduction technique was used on this scan by utilizing automated exposure control and iterative reconstruction technique. The dose-length product (DLP) was 690.61 mGy-cm. Findings: Images through the lung bases reveal minimal bilateral pleural effusions. Nonobstructing left renal stones are present. No left hydronephrosis. Patient is status post right ne phrectomy. The liver, spleen, pancreas, and adrenals appear normal. There is gallbladder wall thickening present , with small gallstones. Infrarenal abdominal aortic aneurysm measures 5.1 cm in diameter. There is no evidence of bowel obstruction. Images through the pelvis were performed. There is no evidence of ascites or lymphadenopathy. Urinary bladder unremarkable. Prostate gland is minimally prominent. There are mildly prominent bilateral pe lvic sidewall/external iliac chain lymph nodes. Impression: Status post right nephrectomy. Mildly prominent bilateral pelvic sidewall and external iliac chain lymph nodes, nonspecific. Compari son with any prior exams would be useful to assess for stability of these lymph nodes. 5.1 cm infrarenal abdominal aortic aneurysm. Nonobstructing left nephrolithiasis. Cholelithiasis and gallbladder wall thickening. Correlate clinically for acute cholecystitis. Conside r HIDA scan as indicated. Minimal bilateral pleural effusions. Reviewed, dictated and finalized at [facility]. 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 Mildly prominent bilateral pelvic sidewall and external iliac chain lymph nodes , nonspecific. Comparison with any prior exams would be useful to assess for st ability of these lymph nodes. 5.1 cm infrarenal abdominal aortic aneurysm. Nonobstructing left nephrolithiasis. Cholelithiasis and gallbladder wall thickening. Correlate clinically for acute cholecystitis. Consider HIDA scan as indicated. Minimal bilateral pleural effusions.
== END 2022-12-05 12:15 | disposition home or self-care (01) ==
PROVIDERS: PCP Physician Assistant; Visit Provider Urology
DX: N28.89 Other specified disorders of kidney and ureter (principal); J90 Pleural effusion, not elsewhere classified; K80.20 Calculus of gallbladder without cholecystitis without obstruction; I71.43 Infrarenal abdominal aortic aneurysm, without rupture
CPT/HCPCS: 71046; 74176

== ENCOUNTER 2023-03-06 08:40 | Outpatient (CLI) | payer OTHER, SELFPAY ==
--- NOTE | ~2023-03-06 | CT_ITS ---
EXAMINATION: CT abdomen pelvis wo con DATE: 03/06/2023 08:59 INDICATION: Right renal mass TECHNIQUE: Computed tomography (CT) of the abdomen and pelvis was performed without intravenous contr ast. The dose-length product was 614.65 mGy-cm. Automated exposure control and iterative reconstructi on technique were employed. COMPARISON: Comparison to multiple prior studies sequentially, with oldest reviewed study dated 12/30. . FINDINGS: Lung bases are unremarkable. Heart size normal. No significant pleural or pericardial effus ion. There is an infrarenal abdominal aortic aneurysm measuring 5.1 x 4.[address] ones with possible mild gallbladder wall thickening. The liver, spleen, pancreas, adrenal glands are unremarkable. There are nonobstructing left renal stones. There is left renal arterial calcification. Status post right nephrectomy. No abnormal pelvic masses or fluid collections. Nonobstructive bowel pattern. Colonic diverticulosis without evidence for diverticulitis. Stable sclerotic lesions of the pelvis, likely benign. There is mild-moderate lumbar spondylosis. No free air or free fluid. No signi ficant interval change to enlarged bilateral external iliac and obturator lymph nodes IMPRESSION: 1. Stable pelvic lymphadenopathy, nonspecific. Cannot exclude metastatic disease. 2: Status post right nephrectomy. 3: Cholelithiasis with possible gallbladder wall thickening. Consider correlation with ultrasound. 4: Nonobstructing left nephrolithiasis. 5: Infrarenal abdominal aortic aneurysm measuring 5.1 cm. 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 IMPRESSION: 1. Stable pelvic lymphadenopathy, nonspecific. Cannot exclude metastatic diseas e. 2: Status post right nephrectomy. 3: Cholelithiasis with possible gallbladder wall thickening. Consider correlat ion with ultrasound. 4: Nonobstructing left nephrolithiasis. 5: Infrarenal abdominal aortic aneurysm measuring 5.1 cm.
== END 2023-03-06 08:41 | disposition home or self-care (01) ==
PROVIDERS: PCP Physician Assistant; Visit Provider Urology
DX: N28.89 Other specified disorders of kidney and ureter (principal); K57.30 Diverticulosis of large intestine without perforation or abscess without bleeding; N20.0 Calculus of kidney; I71.43 Infrarenal abdominal aortic aneurysm, without rupture
CPT/HCPCS: 74176

== ENCOUNTER 2023-05-23 13:29 | Outpatient (CLI) | payer BC, SELFPAY ==
--- NOTE | ~2023-05-23 | PE_ITS ---
EXAMINATION: PET skull to mid thigh DATE: 05/23/2023 15:23 INDICATION: Right side renal cell carcinoma TECHNIQUE: Blood glucose level was 97 mg/dL. 11.271 mCi of 18-fluorodeoxyglucose (18-FDG) was adminis tered i.v. Low dose computed tomography (CT) images were acquired from the base of the brain to the p roximal thighs for attenuation correction and anatomic localization. Positron emission tomography (PE T) images were acquired in the same distribution beginning 56 minutes after injection. Images includi ng fused PET/CT images were reconstructed in axial, coronal, and sagittal planes. Automated exposure control technique was employed. The dose-length product was 569.64mGy-cm. COMPARISON: CT abdomen pelvis dated 03/06/2023 FINDINGS: Head/neck: There is symmetric increased activity in the oral cavity, palatine tonsils, parotid glands, submandi bular glands, laryngeal muscles and ocular muscles without CT correlate, likely physiologic. No patho logically enlarged cervical lymphadenopathy or suspicious foci of increased FDG uptake in the visuali zed head or neck. Chest: No suspicious pulmonary nodules, pneumonia, pulmonary edema or other pulmonary infiltrates. No pleura l effusion. Heart size is normal. Atherosclerotic coronary artery calcific lesion. No pericardial eff usion. Thoracic aorta is normal in caliber. No pathologically enlarged or FDG avid thoracic lymphaden opathy. Bilateral gynecomastia. Abdomen/pelvis/proximal thighs: Physiologic renal accumulation and excretion of FDG activity in the left kidney, bladder and along po rtions of the left ureter. 6 mm nonobstructing stone at an inferior calyx of the left kidney. Status post right nephrectomy. No evident soft tissue density or increased FDG activity at the right nephrec kvng bed to suggest residual or locally recurrent disease. Normal degree and heterogenous pattern of increased uptake throughout the liver without radiologic correlate or dominant FDG avid lesion. Tiny gallstones layering in the dependent aspect of the otherwise normal gallbladder. The pancreas, spleen and bilateral adrenal glands are normal. Mild to moderate uptake scattered throughout the bowels wit hout radiologic correlate, also likely physiologic. A few sigmoid diverticula without adjacent inflam matory change to suggest diverticulitis. Normal appendix. Prostatomegaly. There is a small focus of m ore prominent FDG uptake at the left peripheral zone of the prostate with maximal SUV of 4.7. Asymmet destin left pelvic lymphadenopathy with mild FDG uptake, the largest and most FDG avid is a 4.6 x 1.3 cm right external iliac lymph node with mild increased FDG uptake with maximal SUV of 4.3. 5.1 cm infra renal abdominal aortic aneurysm. Musculoskeletal: There are bridging osteophytes at multiple levels in the spine, consistent with diffuse idiopathic sk eletal hyperostosis (DISH). There is mild likely physiologic FDG uptake with maximal SUV of 3.3 assoc iated with a not yet solidly bridging osteophyte along the right anterior margin of the T9-T10 disc s pace. No other suspicious lytic, blastic or FDG avid bone lesions. IMPRESSION: 1. Status post right nephrectomy for reported renal cell carcinoma with no evident locally recurrent disease. 2. Nonspecific mildly FDG avid left pelvic lymphadenopathy which could be either reactive or metastat ic. In isolation this would be an unusual distribution for metastatic renal cell carcinoma. There is however also prostatomegaly with small focus of asymmetric increased uptake at the posterior left pro state which raises the possibility of metastatic prostate cancer. Correlate with PSA level. 3. Cholelithiasis. 4. Unchanged 5.1 cm infrarenal abdominal aortic aneurysm. 5. 6 mm nonobstructing left renal stone. Reviewed, dictated and finalized at location L. Electronically signed by Khurram Mcdonald M.D. on
[2023-05-23 13:56] LABS: Glucose Point of Care 97 mg/dl (65-105)
== END 2023-05-23 13:30 | disposition home or self-care (01) ==
PROVIDERS: PCP Physician Assistant; Visit Provider Internal Medicine
DX: C64.1 Malignant neoplasm of right kidney, except renal pelvis (principal)
CPT/HCPCS: 78815; A9552

== ENCOUNTER 2023-05-30 12:49 | Outpatient (CLI) | payer BC, SELFPAY ==
[2023-05-30 13:14] LABS: Basophils Absolute Auto 0.1 K/mm3 (0.0-0.1); Basophils Percent Auto 1.1 % (0.2-1.2); Eosinophils Absolute Auto 0.3 K/mm3 (0-0.3); Eosinophils Percent Auto 4.4 % (0-4.4); Hematocrit 31.3 % (42.0-52.0); Hemoglobin 9.8 g/dL (14.0-18.0); Immature Granulocyte Absolute 0.02 K/mm3 (0.00-0.031); Immature Granulocyte Percent A 0.3 % (0-0.5); Lymphocytes Absolute Auto 0.69 K/mm3 (0.9-3.2); Lymphocytes Percent Auto 11.3 % (18.3-44.2); Mean Corpuscular HGB Conc 31.3 g/dl (32-36); Mean Corpuscular Hemoglobin 30.2 pg (26-34); Mean Corpuscular Volume 96.6 fl (80-100); Mean Platelet Volume 10.6 fl (7.4-10.4); Monocytes Absolute Auto 0.4 K/mm3 (0.1-0.6); Monocytes Percent Auto 6.1 % (2.6-8.5); Neutrophils Absolute Auto 4.7 K/mm3 (1.3-6.7); Neutrophils Percent Auto 76.8 % (45.5-73.1); Platelet Count Result 204 k/mm3 (150-375); Red Blood Count 3.24 M/mm3 (4.6-6.20); Red Cell Distribution Width 14.6 % (11.5-14.5); White Blood Count 6.1 K/mm3 (4.5-10.0)
[2023-05-30 16:39] LABS: Alanine Aminotransferase 23 U/L (6-50); Albumin Level 4.3 g/dL (3.5-5.1); Alkaline Phosphatase 69 U/L (38-126); Anion Gap 12 mmol/L (8-16); Aspartate Amino Transferase 26 U/L (17-59); Bilirubin,Total 0.4 mg/dL (0.2-1.3); Blood Urea Nitrogen 78 mg/dL (9-20); Carbon Dioxide 19 mmol/L (22-30); Chloride 105 mmol/L (98-107); Estimated Glomerular Filt Rate 8; Glucose 94 mg/dL (65-110); Potassium 4.7 mmol/L (3.4-5.0); Sodium 136 mmol/L (137-145)
[2023-05-30 17:12] LABS: Prostate Specific Antigen 2.8 ng/mL (< OR = 4.0)
== END 2023-05-30 12:50 | disposition home or self-care (01) ==
LOC: ANHLAB 12:52
PROVIDERS: PCP Physician Assistant; Visit Provider Internal Medicine Hematology & Oncology
DX: R59.0 Localized enlarged lymph nodes (principal)
CPT/HCPCS: 36415; 80053; 84153; 85025

== ENCOUNTER 2023-06-14 09:37 | Outpatient (CLI) | payer BC, SELFPAY ==
--- NOTE | ~2023-06-14 | CT_ITS ---
EXAMINATION: CT biopsy lymph node DATE: 06/14/2023 10:54 INDICATION: Left pelvic lymphadenopathy TECHNIQUE: The procedure including the risks and benefits was discussed with the patient. Risks discu ssed included bleeding and infection. The patient understood the risks and agreed to proceed. The sk in overlying the left suprapubic region was prepped and draped in usual sterile fashion. Anesthetic was administered with 1% lidocaine subcutaneously. A 16 gauge outer needle was advanced under CT brooks dance to the enlarged and mildly FDG avid left external iliac chain lymph node of interest. An 18 gau ge core biopsy needle was then advanced into the lesion. 7 core biopsy specimens were obtained with 3 placed in formalin and 4 in RPMI media. The outer needle was removed and the entry site was cleaned and dressed. There were no immediate complications. The dose-length product was 159.95 mGy-cm. FINDINGS: CT images demonstrate the outer needle tip at the periphery of the 3.7 x 1.1 cm left jewel stringer al iliac chain lymph node. Final image and series the biopsy needle advanced through the long axis of the lymph node. IMPRESSION: 1. Successful CT-guided biopsy of the 3.7 x 1.1 cm left external iliac chain lymph node of concern. Reviewed, dictated and finalized at location A. IMPRESSION: 1. Successful CT-guided biopsy of the 3.7 x 1.1 cm left external iliac chain ly mph node of concern.
[2023-06-14 11:00] VITALS: BP 171/71; PULSE 60; RESP 14; O2SAT 99
[2023-06-14 11:15] VITALS: BP 167/70; PULSE 64; RESP 16; O2SAT 100
[2023-06-14 11:30] VITALS: BP 171/75; PULSE 62; RESP 14; O2SAT 99
[2023-06-14 11:45] VITALS: BP 162/75; PULSE 53; RESP 14; O2SAT 97
[2023-06-14 12:00] VITALS: BP 165/72; PULSE 58; RESP 14; O2SAT 98
[2023-06-14 12:30] VITALS: BP 158/72; PULSE 65; RESP 14; O2SAT 99
--- NOTE | 2023-06-14 13:05 | SUR.PHASEII ---
1305 dr morillo at bedside to talk to patient. vital signs stable, no pain, dreesing looks good. patient ok to be discharged per dr morillo
== END 2023-06-14 13:15 | disposition home or self-care (01) ==
PROVIDERS: Radiology Diagnostic Radiology; PCP Physician Assistant; Visit Provider Internal Medicine Hematology & Oncology
PROC: (CPT 77012; principal; 2023-06-14 10:45)
DX: R59.0 Localized enlarged lymph nodes (principal)
CPT/HCPCS: 38505; 77012; 88108; 88184; 88305; 88342

== ENCOUNTER 2023-06-21 12:06 | Outpatient (CLI) | payer BC, SELFPAY ==
[2023-06-21 12:21] LABS: Basophils Absolute Auto 0.1 K/mm3 (0.0-0.1); Basophils Percent Auto 1.2 % (0.2-1.2); Eosinophils Absolute Auto 0.5 K/mm3 (0-0.3); Eosinophils Percent Auto 7.4 % (0-4.4); Hematocrit 30.2 % (42.0-52.0); Hemoglobin 9.7 g/dL (14.0-18.0); Immature Granulocyte Absolute 0.03 K/mm3 (0.00-0.031); Immature Granulocyte Percent A 0.4 % (0-0.5); Lymphocytes Absolute Auto 1.03 K/mm3 (0.9-3.2); Lymphocytes Percent Auto 14.9 % (18.3-44.2); Mean Corpuscular HGB Conc 32.1 g/dl (32-36); Mean Corpuscular Hemoglobin 30.5 pg (26-34); Mean Platelet Volume 9.3 fl (7.4-10.4); Monocytes Absolute Auto 0.6 K/mm3 (0.1-0.6); Neutrophils Absolute Auto 4.7 K/mm3 (1.3-6.7); Neutrophils Percent Auto 68.1 % (45.5-73.1); Platelet Count Result 282 k/mm3 (150-375); Red Blood Count 3.18 M/mm3 (4.6-6.20); Red Cell Distribution Width 14.6 % (11.5-14.5); White Blood Count 6.9 K/mm3 (4.5-10.0)
[2023-06-21 12:47] LABS: Alanine Aminotransferase 22 U/L (6-50); Albumin Level 4.4 g/dL (3.5-5.1); Alkaline Phosphatase 69 U/L (38-126); Anion Gap 13 mmol/L (8-16); Aspartate Amino Transferase 24 U/L (17-59); Bilirubin,Total 0.3 mg/dL (0.2-1.3); Blood Urea Nitrogen 76 mg/dL (9-20); Calcium 8.9 mg/dL (8.4-10.2); Carbon Dioxide 18 mmol/L (22-30); Chloride 106 mmol/L (98-107); Estimated Glomerular Filt Rate 8; Glucose 98 mg/dL (65-110); Potassium 4.8 mmol/L (3.4-5.0); Sodium 137 mmol/L (137-145)
== END 2023-06-21 12:07 | disposition home or self-care (01) ==
PROVIDERS: Internal Medicine; PCP Physician Assistant; Visit Provider Internal Medicine Hematology & Oncology
DX: R59.0 Localized enlarged lymph nodes (principal)
CPT/HCPCS: 36415; 80053; 85025

== ENCOUNTER 2023-06-21 13:16 | Emergency (ER) | payer BC, SELFPAY ==
[2023-06-21] VITALS (9 sets, daily range): BP systolic 159–185; BP diastolic 74–90; PULSE 55–74; RESP 10–18; TEMP 36.7; O2SAT 99–100
--- NOTE | ~2023-06-21 | XR_ITS ---
EXAMINATION: XR chest 1V portable DATE: 06/21/2023 16:55 INDICATION: Fatigue TECHNIQUE: frontal view of the chest was obtained. COMPARISON: Chest radiograph dated 12/05/2022 FINDINGS: Cardiomegaly with pulmonary vascular congestion but without skip pulmonary edema. No focal airspace opacities, pleural effusion or pneumothorax. IMPRESSION: 1. Cardiomegaly with pulmonary vascular congestion but without skip pulmonary edema. Reviewed, dictated and finalized at location A.
--- NOTE | 2023-06-21 13:27 | ECG_ITS ---
Measurements Intervals [place] Rate: 55 P: 58 HI: 236 QRS: -5 QRSD: 109 T: 44 QT: 452 QTc: 436 Interpretive Statements SINUS BRADYCARDIA WITH FIRST DEGREE AV BLOCK VOLTAGE CRITERIA FOR LVH BORDERLINE R WAVE PROGRESSION, ANTERIOR LEADS BORDERLINE ECG COMPARED TO ECG 05/02/2022 11:17:04 SINUS BRADYCARDIA NOW PRESENT Electronically Signed On 06-21-2023 20:07:47 CDT by Davonte Almendarez D.O.
[2023-06-21 13:41] LABS: Basophils Percent Auto 0.6 % (0.2-1.2); Eosinophils Absolute Auto 0.5 K/mm3 (0-0.3); Eosinophils Percent Auto 7.3 % (0-4.4); Hematocrit 28.6 % (42.0-52.0); Hemoglobin 8.8 g/dL (14.0-18.0); Immature Granulocyte Absolute 0.03 K/mm3 (0.00-0.031); Immature Granulocyte Percent A 0.4 % (0-0.5); Lymphocytes Absolute Auto 1.09 K/mm3 (0.9-3.2); Lymphocytes Percent Auto 15.6 % (18.3-44.2); Mean Corpuscular HGB Conc 30.8 g/dl (32-36); Mean Corpuscular Hemoglobin 29.5 pg (26-34); Mean Platelet Volume 9.3 fl (7.4-10.4); Monocytes Absolute Auto 0.6 K/mm3 (0.1-0.6); Neutrophils Absolute Auto 4.7 K/mm3 (1.3-6.7); Neutrophils Percent Auto 67.1 % (45.5-73.1); Platelet Count Result 257 k/mm3 (150-375); Red Blood Count 2.98 M/mm3 (4.6-6.20); Red Cell Distribution Width 14.4 % (11.5-14.5)
[2023-06-21 13:52] LABS: Alanine Aminotransferase 19 U/L (6-50); Albumin Level 3.7 g/dL (3.5-5.1); Alkaline Phosphatase 62 U/L (38-126); Anion Gap 15 mmol/L (8-16); Aspartate Amino Transferase 21 U/L (17-59); Bilirubin,Total 0.3 mg/dL (0.2-1.3); Blood Urea Nitrogen 73 mg/dL (9-20); Calcium 8.3 mg/dL (8.4-10.2); Carbon Dioxide 16 mmol/L (22-30); Chloride 104 mmol/L (98-107); Estimated CRCL calculation 11 ml/min; Estimated Glomerular Filt Rate 8; Glucose 186 mg/dL (65-110); Potassium 4.4 mmol/L (3.4-5.0); Sodium 135 mmol/L (137-145)
[2023-06-21 16:41] LABS: Appearance Urine Clear (Clear); Bacteria Urine None Seen /hpf; Bilirubin Urine Negative (Negative); Blood Urine Negative (Negative); Color Urine Yellow (Yellow); Glucose Urine UA 1+ mg/dL (Negative); Ketones Urine Negative (Negative); Leukocyte Esterase Ur Negative LEU/UL (Negative); Nitrate Urine Negative (Negative); Non Pathogenic Casts 0-2; Protein Urine 2+ mg/dL (Negative); RBC Urine 0-2 /hpf (0-2); Squamous Epithelial Cell Urine None seen /hpf (Few); Urobilinogen Urine 0.2 mg/dL (<2.0); WBC Urine 0-5 /hpf; pH Urine 7.5 (5.0-9.0)
--- NOTE | 2023-06-21 16:42 | ED.RECABL ---
HPI - Recheck/Abnormal Lab/Rx General Chief Complaint: Recheck/Abnormal Lab/Rx <Marina Schulz PA-C - Last Filed: 06/21/23 19:13> Stated Complaint: renal failure <Marina Schulz PA-C - Last Filed: 06/21/23 19:13> Time Seen by Provider: 06/21/23 16:22 <Marina Schulz PA-C - Last Filed: 06/21/23 19:13> History of Present Illness HPI narrative: 62 y/o M with a hx of CKD stage 5 not on dialysis secondary to hypertensive nephroscloerosis with recent progression of dz due to R nephrectomy for renal cancer, secondary renal hyperparathyroidism, and HTN reports for evaluation for lab recheck after being sent here from Dr. Carrasco's office this afternoon. Pt was being seen at Dr. Carrasco's office for follow up on inflamed lymph nodes that were deemed noncancerous. States the provider that saw him collected labs and advised him to come to the ED due to worsening renal function. Patient states he feels fine otherwise. He does report increased fatigue for the past few weeks and intermittent dizziness that occurs when he goes from a sitting to standing position. States he told his PCP about this who said they will continue to monitor. He does state that he is making urine, but does report decreased volume and increased frequency over the past few months, again which he reports has been relayed to his PCP. The patient denies chest pain or shortness of breath, abdominal pain, back pain or flank pain, fever, lower extremity edema, dysuria or hematuria. He does have a right radiocephalic fistula in place in anticipation for upcoming dialysis. <Marina Schulz PA-C - Last Filed: 06/21/23 19:13> Related Data Home Medications: Home Medications Medication Instructions Recorded Confirmed amlodipine 10 mg tablet 10 mg PO QAM 12/30/21 03/23/23 metoprolol succinate 100 mg 100 mg PO QAM 12/30/21 03/23/23 capsule sprinkle, ext. release 24 hr aspirin 81 mg tablet,delayed 81 mg PO DAILY 05/02/22 03/23/23 release cholecalciferol (vitamin D3) 1 cap PO QAM 07/18/22 06/08/23 hydralazine 25 mg tablet 25 mg PO BID 10/31/22 03/23/23 <Marina Schulz PA-C - Last Filed: 06/21/23 19:13> Allergies/Adverse Reactions: Allergies Allergy/AdvReac Type Severity Reaction Status Date / Time No Known Allergies Allergy Verified 03/23/23 09:23 <Marina Schulz PA-C - Last Filed: 06/21/23 19:13> Review of Systems Review of Systems: CONSTITUTIONAL: Denies fever, chills EYES: Denies visual changes, redness, or discharge. ENT: Denies rhinorrhea, congestion, sore throat, or otalgia. CARDIOVASCULAR: Denies chest pain, palpitations, or edema. RESPIRATORY: Denies cough or dyspnea. GASTROINTESTINAL: Denies abdominal pain, nausea, vomiting, or diarrhea. GENITOURINARY: Denies dysuria or hematuria. SKIN: Denies rash or itching. MUSCULOSKELETAL: Denies back pain, joint pain, or myalgia. NEUROLOGIC: Denies headache, numbness, dizziness, or weakness. PSYCHIATRIC: Denies anxiety or depression. <Marina Schulz PA-C - Last Filed: 06/21/23 19:13> [facility] Past Medical History Medical History: Medical History Acute on chronic renal failure ETOH abuse Hypertension Incarcerated ventral hernia Kidney stones Peripheral neuropathy Right renal mass Tobacco abuse <Marina Schulz PA-C - Last Filed: 06/21/23 19:13> Surgical History Surgical History: Surgical History H/O hernia repair H/O right nephrectomy H/O ventral hernia repair Incarcerated Ventral Hernia repair w poss mesh 05/10/22. <Marina Schulz PA-C - Last Filed: 06/21/23 19:13> Family History Family History: Family History Other Diabetes mellitus Family history of arthritis Family history of cardiovascular disease Family history of malignant neoplasm Hyp
[2023-06-21 16:43] LABS: Add Urine Microscopic? YES
[2023-06-21 17:26] LABS: Magnesium 2.2 mg/dL (1.6-2.3); Phosphorus 4.9 mg/dL (2.5-4.5)
[2023-06-21 17:45] LABS: Influenza A QL RT-PCR Negative (Negative); Influenza B QL RT-PCR Negative (Negative); SARS-CoV-2 RNA PCR Negative (Negative)
== END 2023-06-21 19:29 | disposition home or self-care (01) ==
PROVIDERS: Emergency Medicine; Emergency Provider Physician Assistant; PCP Physician Assistant
DX: I12.0 Hypertensive chronic kidney disease with stage 5 chronic kidney disease or end stage renal disease (principal); N18.5 Chronic kidney disease, stage 5; Z20.822 Contact with and (suspected) exposure to COVID-19; N25.81 Secondary hyperparathyroidism of renal origin; G62.9 Polyneuropathy, unspecified; F17.210 Nicotine dependence, cigarettes, uncomplicated; Z85.528 Personal history of other malignant neoplasm of kidney; Z87.442 Personal history of urinary calculi; Z90.5 Acquired absence of kidney; Z79.82 Long term (current) use of aspirin; I44.0 Atrioventricular block, first degree; R00.1 Bradycardia, unspecified; I51.7 Cardiomegaly; R09.89 Other specified symptoms and signs involving the circulatory and respiratory systems
CPT/HCPCS: 36415; 71045; 80053; 81001; 83735; 84100; 85025; 87636; 93005; 99283

== ENCOUNTER 2023-10-25 11:37 | Inpatient (IN) | payer BC, SELFPAY ==
[2023-10-25] VITALS (22 sets, daily range): BP systolic 148–166; BP diastolic 62–83; PULSE 56–76; RESP 11–21; TEMP 36.3–36.6; O2SAT 92–99; BMI 27.5
--- NOTE | ~2023-10-25 | NM_ITS ---
EXAMINATION: NM pulmonary perfusion DATE: 10/25/2023 15:44 INDICATION: Shortness of breath. TECHNIQUE: 5.5 mCi Tc-99m MAA was administered intravenously for perfusion images. Scintigraphic tin ges of the chest were obtained. COMPARISON: Chest 2 views 10/25/2023, CT abdomen and pelvis 10/25/2023 FINDINGS: Perfusion images show small defects in the lower lobes. IMPRESSION: 1. Very low probability (pulmonary emboli absent). Reviewed, dictated and finalized at location A. CHECKER
--- NOTE | ~2023-10-25 | US_ITS ---
EXAMINATION: US venous doppler [facility] DATE: 10/25/2023 14:16 INDICATION: Lower limb swelling. TECHNIQUE: Grayscale ultrasound images without and with compression and Doppler ultrasound images of the bilateral lower extremity veins were obtained. COMPARISON: None. FINDINGS: The visualized portions of right common femoral vein, profunda (deep) femoral vein, femoral vein, pop liteal vein, peroneal veins, posterior tibial veins, and greater saphenous vein outflow are patent. The visualized portions of left common femoral vein, profunda femoral vein, femoral vein, popliteal v ein, peroneal veins, posterior tibial veins, and greater saphenous vein outflow are patent. IMPRESSION: 1. No deep venous thrombosis. Reviewed, dictated and finalized at location A. [employer]
--- NOTE | ~2023-10-25 | CT_ITS ---
EXAMINATION: CT abdomen pelvis wo con DATE: 10/25/2023 14:23 INDICATION: Gastrointestinal bleed. Abdominal distention. TECHNIQUE: Computed tomography (CT) of the abdomen and pelvis was performed without intravenous contr ast. Automated exposure control and iterative reconstruction technique were employed. The dose-length product was 728.50 mGy-cm. COMPARISON: CT abdomen and pelvis 03/06/2023 FINDINGS: The visualized portions of the lung bases demonstrate small pleural effusions. There is ate lectasis bilaterally with a dependent predominance. The heart size is normal. There are coronary [place] ry calcifications. No pericardial effusion. The liver is normal. There are gallstones in the gallblad deepti, which is normal in size. Gallbladder wall thickening is likely secondary to interstitial edema. The spleen, pancreas, and adrenal glands are normal. There are changes of left right nephrectomy. The re are approximately 4 stones in left kidney measuring up to 5 mm. There is calcified atherosclerosis of the aorta and many of the other arteries. 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 The prostate is mildly enlarged. There is a left inguinal hernia containing fat. There is diverticu losis of the colon without evidence of diverticulitis. The appendix is normal. There is mild bilatera l external iliac lymphadenopathy, likely reactive. There is no free intraperitoneal fluid. There is s evere lumbar spondylosis. IMPRESSION: 1. Small pleural effusions. 2. 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 Surgical consultation is recommended. 3. Mild bilateral external iliac lymphadenopathy, likely reactive. Reviewed, dictated and finalized at location A. FER IMPRESSION: 1. Small pleural effusions. 2. 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 Surgical consultation i s recommended. 3. Mild bilateral external iliac lymphadenopathy, likely reactive.
--- NOTE | ~2023-10-25 | XR_ITS ---
XR chest 2V DATE: 10/25/2023 14:28 INDICATION: Shortness of breath TECHNIQUE: AP and lateral views COMPARISON: 06/21/2023 portable AP chest FINDINGS: There is patchy infiltrate in the mid and lower lung zones, most prominent in the left lowe r lung. Normal heart size. There is pulmonary vascular congestion and redistribution and mild prominence of the fissures suggesting subpleural edema. There is aortic calcification and mild unfolding. Small pleural effusions. There is scoliosis and degenerative spurring of the thoracic spine. Surgical clips, right upper quadrant. There is scoliosis and degenerative spurring of the thoracic spine. IMPRESSION: Congestive changes, small pleural effusions Mild mid and lower lung zone infiltrates, greatest in the left lower lung. 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
--- NOTE | 2023-10-25 13:29 | ED.SOB ---
HPI - SOB/Dyspnea General Chief Complaint: Shortness of Breath/Dyspnea Stated Complaint: SOB x 3 weeks, blood in stool 4-5 days Time Seen by Provider: 10/25/23 13:00 History of Present Illness HPI Narrative: Patient is 62 year old male with history of CKD not on active HD here with shortness of breath and dark stools. Patient notes that his shortness of breath has been progressively worsening over the last 3 weeks. It is worse with lying flat and exertion. Today he only needed about 100 yd attempting to walk into work before needing to sit down and rest. He notes it is associated with a wet cough, this has been present for about 3 weeks as well. He does note that he was positive for COVID about 3 weeks ago before symptoms began. He does a fluid restriction diet, does not have a formal diagnosis of heart failure that he is aware of. He notes some increasing associated lower extremity edema which seems to be worse on the left than the right leg. He continues to make urine, does have a fistula in place but has never needed dialysis to this point. He denies any associated chest pain, fever, chills, nasal congestion at this time. He additionally notes that he has had dark stools for about 2 weeks. His last bowel movement was today, small in size. He does not use ibuprofen due to his CKD but does take a baby aspirin given his hypertension. His last colonoscopy was about 1 year ago, notes some benign polyps but otherwise unremarkable. He denies any prior history of GI bleed. He denies history of needing a blood transfusion. He denies any abdominal pain. He does not use iron supplements. Related Data Home Medications Medication Instructions Recorded Confirmed amlodipine 10 mg tablet 10 mg PO QAM 12/30/21 09/26/23 metoprolol succinate 100 mg 100 mg PO QAM 12/30/21 09/26/23 capsule sprinkle, ext. release 24 hr aspirin 81 mg tablet,delayed 81 mg PO DAILY 05/02/22 09/26/23 release cholecalciferol (vitamin D3) 1 cap PO QAM 05/02/22 09/26/23 hydralazine 25 mg tablet 25 mg PO BID 10/31/22 09/26/23 Allergies Allergy/AdvReac Type Severity Reaction Status Date / Time No Known Allergies Allergy Verified 09/26/23 14:04 Review of Systems Review of Systems: All systems reviewed & are unremarkable except as noted in HPI and below PMFSH Past Medical History Medical History Acute on chronic renal failure ETOH abuse Hypertension Incarcerated ventral hernia Kidney stones Peripheral neuropathy Right renal mass Tobacco abuse Surgical History Surgical History H/O hernia repair H/O right nephrectomy H/O ventral hernia repair Incarcerated Ventral Hernia repair w poss mesh 05/10/22. Family History Family History Other Diabetes mellitus Family history of arthritis Family history of cardiovascular disease Family history of malignant neoplasm Hypertension Social History Social History Social History: Patient elects his brother Martin to be his surrogate. He has no kids or pets at this time. Patient wishes to be a full code. Smoking packs per day: 1.5 Smoking cigarettes per day: 30.0 Years smoked: 40 Smoking pack-years: 60.00 Smoking status: Current every day smoker Tobacco type: cigarettes Second hand tobacco smoke exposure: Yes Additional smoking assessment comments: STATES STARTING SMOKING AGE 13 Alcohol intake: current Drinks per week: 7 Alcohol use details: 4 oz vodka daily Substance use: former Substance use type: does not use Lack of Transportation: No Lack of Food: Never True Current Housing: I Have Housing Concerned About Future Housing: No Difficulty Paying Gas/Electric Bills: No Difficulty Paying for Meds: No Currently Unemployed: No 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
[2023-10-25 14:39] LABS: Basophils Percent Auto 0.4 % (0.2-1.2); Eosinophils Absolute Auto 0.5 K/mm3 (0-0.3); Eosinophils Percent Auto 7.3 % (0-4.4); Immature Granulocyte Absolute 0.04 K/mm3 (0.00-0.031); Immature Granulocyte Percent A 0.6 % (0-0.5); Lymphocytes Absolute Auto 0.72 K/mm3 (0.9-3.2); Lymphocytes Percent Auto 9.9 % (18.3-44.2); Mean Corpuscular HGB Conc 30.1 g/dl (32-36); Mean Corpuscular Hemoglobin 30.1 pg (26-34); Mean Platelet Volume 9.3 fl (7.4-10.4); Monocytes Absolute Auto 0.5 K/mm3 (0.1-0.6); Monocytes Percent Auto 6.9 % (2.6-8.5); Neutrophils Absolute Auto 5.4 K/mm3 (1.3-6.7); Neutrophils Percent Auto 74.9 % (45.5-73.1); Platelet Count Result 253 k/mm3 (150-375); Red Blood Count 1.96 M/mm3 (4.6-6.20); Red Cell Distribution Width 15.9 % (11.5-14.5); White Blood Count 7.3 K/mm3 (4.5-10.0)
[2023-10-25 14:43] LABS: Hemoglobin 5.9 g/dL (14.0-18.0)
[2023-10-25 14:44] LABS: Hematocrit 19.6 % (42.0-52.0)
[2023-10-25 14:55] LABS: Prothrombin Time 13.3 Seconds (11.1-14.7)
[2023-10-25 14:56] LABS: Partial Thromboplastin Time 28.6 SECONDS (22.3-36.8)
[2023-10-25 14:57] LABS: Alanine Aminotransferase 29 U/L (6-50); Albumin Level 3.3 g/dL (3.5-5.1); Alkaline Phosphatase 71 U/L (38-126); Anion Gap 14 mmol/L (8-16); Aspartate Amino Transferase 27 U/L (17-59); Bilirubin,Total 0.3 mg/dL (0.2-1.3); Blood Urea Nitrogen 73 mg/dL (9-20); Calcium 8.7 mg/dL (8.4-10.2); Carbon Dioxide 14 mmol/L (22-30); Chloride 109 mmol/L (98-107); Estimated CRCL calculation 10 ml/min; Estimated Glomerular Filt Rate 7; Glucose 83 mg/dL (65-110); Potassium 4.1 mmol/L (3.4-5.0); Sodium 137 mmol/L (137-145)
[2023-10-25 14:58] LABS: D Dimer 2.12 ug/mL (<0.48)
[2023-10-25 15:05] LABS: NT Pro B Type Natriuretic Pept 19600 pg/mL (19.9-100)
[2023-10-25 15:09] LABS: Troponin I 0.103 ng/mL (0.000-0.034)
[2023-10-25 15:20] LABS: Influenza A QL RT-PCR Negative (Negative); Influenza B QL RT-PCR Negative (Negative); RSV RNA, RT-PCR Negative (Negative); SARS-CoV-2 RNA PCR Negative (Negative)
[2023-10-25 15:53] LABS: Procalcitonin 0.5 ng/mL
[2023-10-25] MEDS: PANTOPRAZOLE SODIUM IV 40 MG VIAL IV PUSH (16:04)
[2023-10-25] MEDS: SODIUM CHLORIDE 0.9% IV 250 ML 30 ML IV CONT (16:04)
--- NOTE | 2023-10-25 16:29 | PM.IMHP ---
H&P: HPI History of Present Illness Date/Time: 10/25/23 16:29 Chief Complaint: GI bleed Narrative: Patient is a 62-year-old male with a history of end-stage renal disease on dialysis comes to hospital complaining of shortness of breath and tardy stools. Patient states that he started noticing dark stool about 2 weeks ago progressively getting worse. Patient started feeling more tired and fatigued unable to walk more than 100 yd. Patient also noticed some dry cough which was nonproductive. Patient was not recorded as being positive for COVID 19 virus 3 weeks ago. He can still continues to urinate but denies any chest pain no fever no chills no nasal congestion. Patient only takes Tylenol has not taken any Advil but does take a baby aspirin. Patient had a colonoscopy done about a year ago which was negative except few benign polyps. The patient denies any history of any local injury no use of iron pills no diarrhea no vomiting Review of Systems Constitutional: Constitutional: Reports fatigue and Reports weakness Eyes: Eyes: Reports no additional eye complaints ENT: Reports system reviewed and no additional complaints, except as documented Cardiovascular: Cardiovascular: Reports no additional cardiovascular complaints Respiratory: Respiratory: Reports dyspnea Gastrointestinal: Gastrointestinal: Reports melena Musculoskeletal: Musculoskeletal: Reports no additional musculoskeletal complaints Neurologic: Reports system reviewed and no additional complaints, except as documented [facility] Past Medical History Medical History Acute on chronic renal failure ETOH abuse Hypertension Incarcerated ventral hernia Kidney stones Peripheral neuropathy Right renal mass Tobacco abuse Surgical History Surgical History H/O hernia repair H/O right nephrectomy H/O ventral hernia repair Incarcerated Ventral Hernia repair w poss mesh 05/10/22. Family History Family History Other Diabetes mellitus Family history of arthritis Family history of cardiovascular disease Family history of malignant neoplasm Hypertension Social History Social History Social History: Patient elects his brother Martin to be his surrogate. He has no kids or pets at this time. Patient wishes to be a full code. Smoking packs per day: 1.5 Smoking cigarettes per day: 30.0 Years smoked: 40 Smoking pack-years: 60.00 Smoking status: Current every day smoker Tobacco type: cigarettes Second hand tobacco smoke exposure: Yes Additional smoking assessment comments: STATES STARTING SMOKING AGE 13 Alcohol intake: current Drinks per week: 7 Alcohol use details: 4 oz vodka daily Substance use: former Substance use type: does not use Lack of Transportation: No Lack of Food: Never True Current Housing: I Have Housing Concerned About Future Housing: No Difficulty Paying Gas/Electric Bills: No Difficulty Paying for Meds: No Currently Unemployed: No Education: High School Diploma/GED Difficulty w/ Childcare or Family Care: No Living arrangements: alone Occupation/Education: occupation Additional occupation/education comments: [employer] Gender identity (if verbalized by the patient): Male Sexual Orientation (if Verbalized by the Patient): Straight or Heterosexual Spiritual care concerns: No Agree to blood products: Yes Meds Home Medications and Allergies Home Medications Medication Instructions Recorded Confirmed Type amlodipine 10 mg tablet 10 mg PO QAM 12/30/21 09/26/23 History metoprolol succinate 100 mg 100 mg PO QAM 12/30/21 09/26/23 History capsule sprinkle, ext. release 24 hr aspirin 81 mg tablet,delayed 81 mg PO DAILY 05/02/22 09/26/23 History release chol
[2023-10-25 18:33] LABS: Basophils Percent Auto 0.6 % (0.2-1.2); Eosinophils Absolute Auto 0.5 K/mm3 (0-0.3); Hematocrit 21.9 % (42.0-52.0); Immature Granulocyte Absolute 0.03 K/mm3 (0.00-0.031); Immature Granulocyte Percent A 0.4 % (0-0.5); Lymphocytes Absolute Auto 0.77 K/mm3 (0.9-3.2); Lymphocytes Percent Auto 11.4 % (18.3-44.2); Mean Corpuscular HGB Conc 31.1 g/dl (32-36); Mean Corpuscular Hemoglobin 29.8 pg (26-34); Mean Corpuscular Volume 96.1 fl (80-100); Mean Platelet Volume 9.4 fl (7.4-10.4); Monocytes Absolute Auto 0.5 K/mm3 (0.1-0.6); Monocytes Percent Auto 6.8 % (2.6-8.5); Neutrophils Absolute Auto 4.9 K/mm3 (1.3-6.7); Neutrophils Percent Auto 72.8 % (45.5-73.1); Platelet Count Result 246 k/mm3 (150-375); Red Blood Count 2.28 M/mm3 (4.6-6.20); Red Cell Distribution Width 16.7 % (11.5-14.5); White Blood Count 6.7 K/mm3 (4.5-10.0)
[2023-10-25] MEDS: BUMETANIDE INJ 1 MG/4 ML VIAL IV PUSH (18:38)
[2023-10-25 18:41] LABS: Alanine Aminotransferase 30 U/L (6-50); Albumin Level 3.4 g/dL (3.5-5.1); Alkaline Phosphatase 70 U/L (38-126); Anion Gap 12 mmol/L (8-16); Aspartate Amino Transferase 28 U/L (17-59); Bilirubin,Total 0.4 mg/dL (0.2-1.3); Blood Urea Nitrogen 72 mg/dL (9-20); Calcium 8.7 mg/dL (8.4-10.2); Carbon Dioxide 15 mmol/L (22-30); Chloride 110 mmol/L (98-107); Estimated CRCL calculation 10 ml/min; Estimated Glomerular Filt Rate 7; Glucose 80 mg/dL (65-110); Potassium 4.4 mmol/L (3.4-5.0); Sodium 137 mmol/L (137-145)
[2023-10-25 18:42] LABS: Hemoglobin 6.8 g/dL (14.0-18.0)
[2023-10-25 18:55] LABS: Troponin I 0.099 ng/mL (0.000-0.034)
--- NOTE | 2023-10-25 19:27 | ADMGEN ---
This patient, Kar Sloan, was admitted to IMU Room 202-01 at 1707. Patient/family oriented to hospital policies and general routines including ID bracelet, bed and alarms, visiting hours, pain management, procedures, bathroom and other care routines, personal items, smoking policy, room service/diet, and visiting hours. Information on how to activate the Rapid Response Team has been discussed. Patient/Family are encouraged to report perceived risks to care and to ask questions if they do not understand what they are told or what they should do.
[2023-10-26] VITALS (22 sets, daily range): BP systolic 124–169; BP diastolic 61–78; PULSE 58–88; RESP 16–20; TEMP 36.1–37; O2SAT 92–99; BMI 27.5
--- NOTE | 2023-10-26 | ECHO_ITS ---
Patient Info Name: Kar Sloan Age: 62 years : 1960 Gender: Male Ht: 72 in Wt: 200 lbs BSA: 2.16 m2 HR: 65 bpm BP: 149 / 63 mmHg Heart Rhythm: Sinus Rhythm Technical Quality: Good Exam Date: 10/26/2023 8:50 AM Exam Location: Echo Lab Patient Status: Inpatient Admit Date: 10/25/2023 Staff Ordering Physician: Itz Marques MD Site Auditor: Luisa Hodgson RDCS Attending Provider: Nighat Coe MD Exam Type: CA echo doppler color flow Study Info Indications - CHF Complete two-dimensional, color flow and Doppler transthoracic echocardiogram is performed. Summary 1. Complete two-dimensional, color flow and Doppler transthoracic echocardiogram is performed. 2. Left ventricular chamber dimension is normal. 3. Left ventricular systolic function is normal, estimated at 60-65%. 4. There is mildly increased left ventricular wall thickness. 5. The left ventricular diastolic function is grade I diastolic dysfunction. 6. Right ventricular chamber dimension is mildly enlarged. 7. Right ventricular systolic function is normal. 8. Left atrial chamber dimension is moderately enlarged. 9. Right atrial chamber dimension is mildly enlarged. 10. There is mild tricuspid valve regurgitation. Left Ventricle Left ventricular chamber dimension is normal. Left ventricular systolic function is normal, estimated at 60-65%. There is mildly increased left ventricular wall thickness. The left ventricular diastolic function is grade I diastolic dysfunction. Right Ventricle Right ventricular chamber dimension is mildly enlarged. Right ventricular systolic function is normal. Left Atria Left atrial chamber dimension is moderately enlarged. Right Atria Right atrial chamber dimension is mildly enlarged. Atrial Septum Intact interatrial septum visualized by color flow imaging. Aortic Valve The aortic valve is probable trileaflet. There is no aortic valve stenosis. There is no aortic valve regurgitation. There is mild aortic valve calcification. Pulmonic Valve The pulmonic valve is not well visualized. There is trace pulmonic regurgitation. Mitral Valve There is trace mitral valve regurgitation. The mitral valve annulus is mildly calcified. Tricuspid Valve There is mild tricuspid valve regurgitation. Pericardium/Pleural The pericardium appears epicardial fat pad. There is no pericardial effusion. Inferior Vena Cava Normal inferior vena cava with >50% collapse upon inspiration consistent with normal right atrial pressure, 3 mmHg. Aorta The aortic root size at the sinus of Valsalva is normal. Left Ventricular Outflow Tract Name Value Normal LVOT 2D LVOT Diameter 2.1 cm LVOT Doppler LVOT Peak Gradient 6 mmHg LVOT Mean Gradient 3 mmHg LVOT VTI 32 cm LVOT VTI/AV VTI Ratio 0.8 LVOT Stroke Volume 110 ml LVOT CO 5.9 l/min LVOT CI 2.7 l/min/m2 Pulmonic Valve Name Value Normal
[2023-10-26 05:09] LABS: Basophils Percent Auto 0.5 % (0.2-1.2); Eosinophils Absolute Auto 0.5 K/mm3 (0-0.3); Eosinophils Percent Auto 7.8 % (0-4.4); Immature Granulocyte Absolute 0.03 K/mm3 (0.00-0.031); Immature Granulocyte Percent A 0.5 % (0-0.5); Lymphocytes Absolute Auto 0.88 K/mm3 (0.9-3.2); Lymphocytes Percent Auto 13.7 % (18.3-44.2); Mean Corpuscular HGB Conc 30.4 g/dl (32-36); Mean Corpuscular Hemoglobin 29.4 pg (26-34); Mean Corpuscular Volume 96.7 fl (80-100); Mean Platelet Volume 10.1 fl (7.4-10.4); Monocytes Absolute Auto 0.5 K/mm3 (0.1-0.6); Monocytes Percent Auto 7.6 % (2.6-8.5); Neutrophils Absolute Auto 4.5 K/mm3 (1.3-6.7); Neutrophils Percent Auto 69.9 % (45.5-73.1); Platelet Count Result 251 k/mm3 (150-375); Red Blood Count 2.14 M/mm3 (4.6-6.20); Red Cell Distribution Width 17.2 % (11.5-14.5); White Blood Count 6.4 K/mm3 (4.5-10.0)
[2023-10-26 05:14] LABS: Hematocrit 20.7 % (42.0-52.0); Hemoglobin 6.3 g/dL (14.0-18.0)
[2023-10-26 05:30] LABS: Alanine Aminotransferase 26 U/L (6-50); Albumin Level 3.1 g/dL (3.5-5.1); Alkaline Phosphatase 69 U/L (38-126); Anion Gap 13 mmol/L (8-16); Aspartate Amino Transferase 23 U/L (17-59); Bilirubin,Total 0.4 mg/dL (0.2-1.3); Blood Urea Nitrogen 73 mg/dL (9-20); Calcium 8.6 mg/dL (8.4-10.2); Carbon Dioxide 12 mmol/L (22-30); Chloride 109 mmol/L (98-107); Estimated CRCL calculation 9 ml/min; Estimated Glomerular Filt Rate 6; Glucose 65 mg/dL (65-110); Phosphorus 5.7 mg/dL (2.5-4.5); Sodium 134 mmol/L (137-145)
[2023-10-26 05:33] LABS: Parathyroid Intact 477.6 pg/mL (7.5-53.5)
[2023-10-26 05:58] LABS: Hepatitis B Surface Antigen Negative (Negative)
[2023-10-26 06:16] LABS: Hepatitis B Surface Anti Res Negative
[2023-10-26 06:33] LABS: Folic Acid 4.8 ng/mL (2.76->20)
[2023-10-26 06:44] LABS: Iron 58 ug/dL (49-181); Percent Iron Saturation 22 % (20-50); Vitamin D 25 Hydroxy 36.5 ng/mL
--- NOTE | 2023-10-26 07:40 | WPDGICN ---
Assessment and Plan Assessment and plan (1) Acute blood loss anemia (ABLA): Code(s): D62 - Acute posthemorrhagic anemia Status: Acute Assessment and Plan: the patient's hemoglobin dropped to 5.9. Just last month it was 8.1 and was 9 point 7 in June of last year. He has had no emesis but has been nauseated. He has had black stools now for about 3 weeks. after transfusion with 1 unit of blood his hemoglobin is up to 6.3. He has been started on Protonix (2) Elevated troponin: Code(s): R79.89 - Other specified abnormal findings of blood chemistry Status: Acute Assessment and Plan: 0.099. (3) Melena: Code(s): K92.1 - Melena Status: Acute Assessment and Plan: Hemoccult done in the emergency room was positive. His stool was brown but the patient states that he has had mostly black stools for 3 weeks. He does not take any NSAIDs but does take an 81 mg aspirin tablet daily. (4) ETOH abuse: Code(s): F10.10 - Alcohol abuse, uncomplicated Status: Acute Assessment and Plan: He admits to drinking vodka, several oz every day. His liver edge is slightly firm. (5) Chronic kidney disease (CKD), stage V: Code(s): N18.5 - Chronic kidney disease, stage 5 Status: Acute Assessment and Plan: He is not on dialysis yet but his creatinine has been increasing. It is 8.1 with a BUN of 73 at time of admission. (6) Hepatomegaly: Code(s): R16.0 - Hepatomegaly, not elsewhere classified Status: Acute Assessment and Plan: his liver is slightly enlarged, palpable just below the right costal margin and mildly tender. LFTs however are normal. He admits to drinking vodka daily. He has never been told that he had liver disease, hepatitis or other liver problem. (7) Personal history of colonic polyps: Code(s): Z86.010 - Personal history of colonic polyps Status: Acute Assessment and Plan: just over a year ago I performed a colonoscopy took off 2 polyps which were relatively large. He has not had any red blood in his stools However, that would suggest that he has a lower gastrointestinal bleed. GI Consult Note Consult date/time: 10/26/23 07:40 HPI: Kar Sloan is a 62 year old male who presented to emergency room yesterday afternoon with weakness, is stating that he had shortness of breath and dark stools.? Patient notes that his shortness of breath has been progressively worsening over the last 3 weeks.? It is worse with lying flat and exertion.? yesterday he only needed about 100 yd attempting to walk into work before needing to sit down and rest.? He notes it is associated with a wet cough, this has been present for about 3 weeks as well.? He does note that he was positive for COVID about 3 weeks ago before symptoms began Review of Systems Review of Systems: All systems reviewed & are unremarkable except as noted in HPI and below PMFSH Past Medical History Medical History Acute on chronic renal failure ETOH abuse Hypertension Incarcerated ventral hernia Kidney stones Peripheral neuropathy Right renal mass Tobacco abuse Surgical History Surgical History H/O hernia repair H/O right nephrectomy H/O ventral hernia repair Incarcerated Ventral Hernia repair w poss mesh 05/10/22. Family History Family History Other Diabetes mellitus Family history of arthritis Family history of cardiovascular disease Family history of malignant neoplasm Hypertension Social History Social History Social History: Patient elects his brother Martin to be his surrogate. He has no kids or pets at this time. Patient wishes to be a full code. Smoking packs per day: 1 Smoking cigarettes per
[2023-10-26] MEDS: BUMETANIDE INJ 1 MG/4 ML VIAL IV PUSH ×2 (09:31→16:07)
[2023-10-26 09:46] LABS: NT Pro B Type Natriuretic Pept 19200 pg/mL (19.9-100)
[2023-10-26] MEDS: SODIUM CHLORIDE 0.9% IV 500 ML 10 ML IV CONT (11:02)
--- NOTE | 2023-10-26 11:42 | WPDANESEPPF ---
Anes - Initial Pre Proc Eval Procedure: Operation Date: 10/26/23 13:30 Proposed Procedures p Esophagogastroduodenoscopy - Roe Bhatt MD Date/Time: 10/26/23 11:42 Surgeon: Nighat Coe MD Pre Op Diagnosis: gi bleed Patient Data Age: 62 Gender: M Height: 1.83 m Weight: 92.1 kg Last Vital Signs Temp 98.6 F 10/26/23 11:03 Pulse 66 10/26/23 11:03 Resp 20 10/26/23 11:03 BP 161/68 H 10/26/23 11:03 Pulse Ox 95 10/26/23 11:03 O2 Del Method Room Air 10/26/23 11:03 Allergies Allergy/AdvReac Type Severity Reaction Status Date / Time No Known Allergies Allergy Verified 10/26/23 10:52 Home Medications Medication Instructions Recorded Confirmed Type amlodipine 10 mg tablet 10 mg PO QAM 12/30/21 10/25/23 History metoprolol succinate 100 mg 100 mg PO QAM 12/30/21 10/25/23 History capsule sprinkle, ext. release 24 hr aspirin 81 mg tablet,delayed 81 mg PO DAILY 05/02/22 10/25/23 History release hydralazine 25 mg tablet 25 mg PO BID 10/31/22 10/25/23 History sodium bicarbonate 650 mg tablet 650 mg PO BID #60 tabs 03/23/23 10/25/23 Rx furosemide 20 mg tablet 20 mg PO QAM #30 tabs 07/20/23 10/25/23 Rx cholecalciferol (vitamin D3) 75 75 mcg PO DAILY 10/25/23 10/25/23 History mcg (3,000 unit) tablet Laboratory Tests 10/25/23 10/25/23 10/25/23 14:31 14:32 14:33 WBC 7.3 K/mm3 (4.5-10.0) RBC 1.96 L M/mm3 (4.6-6.20) Hgb 5.9 L* g/dL (14.0-18.0) Hct 19.6 L* % (42.0-52.0) MCV 100.0 fl (80-100) MCH 30.1 pg (26-34) MCHC 30.1 L g/dl (32-36) RDW 15.9 H % (11.5-14.5) Plt Count 253 k/mm3 (150-375) MPV 9.3 fl (7.4-10.4) Immature Gran % (Auto) 0.6 H % (0-0.5) Neut % (Auto) 74.9 H % (45.5-73.1) Lymph % (Auto) 9.9 L % (18.3-44.2) Ocean % (Auto) 6.9 % (2.6-8.5) Eos % (Auto) 7.3 H % (0-4.4) Baso % (Auto) 0.4 % (0.2-1.2) Lymph # (Auto) 0.72 L K/mm3 (0.9-3.2) Ocean # (Auto) 0.5 K/mm3 (0.1-0.6) Eos # (Auto) 0.5 H K/mm3 (0-0.3) Baso # (Auto) 0.0 K/mm3 (0.0-0.1) Abs Immat Gran (auto) 0.04 H K/mm3 (0.00-0.031) Absolute Neuts (auto) 5.4 K/mm3 (1.3-6.7) Absolute Nucleated RBC 0.0 K/mm3 (0.0-0.012) Nucleated RBC % 0.0 % (0.0-0.2) PT 13.3 Seconds (11.1-14.7) INR 1.0 APTT 28.6 SECONDS (22.3-36.8) D-Dimer 2.12 H ug/mL (<0.48) Sodium 137 mmol/L (137-145) Potassium 4.1 mmol/L (3.4-5.0) Chloride 109 H mmol/L (98-107) Carbon Dioxide 14 L mmol/L (22-30) Anion Gap 14 mmol/L (8-16) BUN 73 H mg/dL (9-20) Creatinine 8.10 H mg/dL (0.7-1.3) Estim Creat Clear Calc 10 ml/min Estimated GFR 7 L (59 - ) Glucose 83 mg/dL (65-110) Calcium 8.7 mg/dL (8.4-10.2) Phosphorus Iron TIBC % Saturation Ferritin Total Bilirubin 0.3 mg/dL (0.2-1.3) AST 27 U/L (17-59) ALT 29 U/L (6-50) Alkaline Phosphatase 71 U/L (38-126) Troponin I 0.103 H* ng/mL (0.000-0.034) NT-Pro-B Natriuret Pep 05564 H pg/mL (19.9-100) Total Protein 6.0 L g/dL (6.3-8.2) Albumin 3.3 L g/dL (3.5-5.1) Vitamin B12 Vitamin D 25-Hydroxy Folate Procalcitonin 0.5 ng/mL PTH Intact Hep Bs Antigen Hep Bs Antibody Hep B Core Total Ab Influenza A (RT-PCR) Negative (Negative) Influenza B (RT-PCR) Negative (Negative) RSV (RT-PCR) Negative (Negative) SARS-CoV-2 RNA (RT-PCR) Negative (Negative) Blood Type
--- NOTE | 2023-10-26 13:15 | P.CONNP_ITS ---
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 * AVF in place and appears mature * plan HD tomorrow and likely day after * follow electrolytes, volume status, and clearance * as still make urine, not opposed to diuretic therapy at this time * will need outpatient dialysis arranged (2) Acute upper GI bleed: Code(s): K92.2 - Gastrointestinal hemorrhage, unspecified Status: Acute Assessment and Plan: * s/p EGD with findings of duodenal AVMs * PRBC transfusion per protocol * follow serial H/Hs * Gastroenterology following (3) Volume overload: Code(s): E87.70 - Fluid overload, unspecified Status: Acute Assessment and Plan: * as suggested by admission CXR * elevated BNP noted * follow-up on Echo * diuresis and fluid removal with dialysis (4) Hypertension: Qualifiers: Hypertension type: primary hypertension Qualified Code(s): I10 - Essential (primary) hypertension Code(s): I10 - Essential (primary) hypertension Status: Chronic Assessment and Plan: * mildly elevated at this time * adjust BP medication once anemia stabilizes * dialysis initiation may help this issue * follow trend of hemodynamics (5) Anemia: Code(s): D64.9 - Anemia, unspecified Status: Chronic Assessment and Plan: * due to #2 and complicated by advanced CKD * suspect an element of uremic bleeding as well * Epogen with HD * iron studies noted * follow H/H (6) Secondary hyperparathyroidism: Code(s): N25.81 - Secondary hyperparathyroidism of renal origin Status: Chronic Assessment and Plan: * phosphorus mildly elevated * PTH and Vitamin D in range * follow trend Long extensive discussion (> 20 min) with the patient regarding his pro gressively worsening chronic kidney disease now complicated by recent Covid infection and severe/significant anemia in the context of a GI bleed. I suspect his kidney function will continue to deteriorate as he had fairly advanced chronic kidney disease even at baseline. Furthermore, with his issues of CHF/volume overload and the possibility of uremic bleeding playing a role with his anemia, I recommend initiation of renal replacement therapy/dialysis which the patient is agreeable to. I will continue to follow patient with you while he remains hospitalized and make further recommendations as needed. Thank for allowing me to participate in the care of this patient. History of Present Illness Reason for Consult Consult date: 10/26/23 Reason for consult: chronic renal failure Chief Complaint Chief complaint: gi bleed History of Present Illness Narrative: The patient is a 62-year-old male with a past medical history as outlined below who presented to [facility] Emergency room with complaints of shortness of breath in association with black tarry stools. The patient states that over last few weeks, he has noticed increasing dark stools in association with shortness of breath. This continued to worsen over time with more fatigue, weakness, and a general sensation of weakness to the point where he was unable to walk more than 100 yd without being in mild dist ress. Other associated symptoms included a dry cough which was nonproductive. He does report that he was te
--- NOTE | 2023-10-26 13:15 | PM.CNNEP ---
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 AVF in place and appears mature plan HD tomorrow and likely day after follow electrolytes, volume status, and clearance as still make urine, not opposed to diuretic therapy at this time will need outpatient dialysis arranged (2) Acute upper GI bleed: Code(s): K92.2 - Gastrointestinal hemorrhage, unspecified Status: Acute Assessment and Plan: s/p EGD with findings of duodenal AVMs PRBC transfusion per protocol follow serial H/Hs Gastroenterology following (3) Volume overload: Code(s): E87.70 - Fluid overload, unspecified Status: Acute Assessment and Plan: as suggested by admission CXR elevated BNP noted follow-up on Echo diuresis and fluid removal with dialysis (4) Hypertension: Qualifiers: Hypertension type: primary hypertension Qualified Code(s): I10 - Essential (primary) hypertension Code(s): I10 - Essential (primary) hypertension Status: Chronic Assessment and Plan: mildly elevated at this time adjust BP medication once anemia stabilizes dialysis initiation may help this issue follow trend of hemodynamics (5) Anemia: Code(s): D64.9 - Anemia, unspecified Status: Chronic Assessment and Plan: due to #2 and complicated by advanced CKD suspect an element of uremic bleeding as well Epogen with HD iron studies noted follow H/H (6) Secondary hyperparathyroidism: Code(s): N25.81 - Secondary hyperparathyroidism of renal origin Status: Chronic Assessment and Plan: phosphorus mildly elevated PTH and Vitamin D in range follow trend Long extensive discussion (> 20 min) with the patient regarding his progressively worsening chronic kidney disease now complicated by recent Covid infection and severe/significant anemia in the context of a GI bleed. I suspect his kidney function will continue to deteriorate as he had fairly advanced chronic kidney disease even at baseline. Furthermore, with his issues of CHF/volume overload and the possibility of uremic bleeding playing a role with his anemia, I recommend initiation of renal replacement therapy/dialysis which the patient is agreeable to. I will continue to follow patient with you while he remains hospitalized and make further recommendations as needed. Thank for allowing me to participate in the care of this patient. History of Present Illness Reason for Consult Consult date: 10/26/23 Reason for consult: chronic renal failure Chief Complaint Chief complaint: gi bleed History of Present Illness Narrative: The patient is a 62-year-old male with a past medical history as outlined below who presented to [facility] Emergency room with complaints of shortness of breath in association with black tarry stools. The patient states that over last few weeks, he has noticed increasing dark stools in association with shortness of breath. This continued to worsen over time with more fatigue, weakness, and a general sensation of weakness to the point where he was unable to walk more than 100 yd without being in mild distress. Other associated symptoms included a dry cough which was nonproductive. He does report that he was tested as being positive for COVID-19 several weeks ago as well. No reported symptoms of fever, chills, chest pain, or nasal congestion. Given his worsening symptoms, he presented to the emergency room for further assessment. Workup and evaluation emergency room demonstrated the patient to be hemodynamically stable. Routine blood test were significant for some worsening of his renal function in conjunction with his
[2023-10-26 13:53] LABS: Hematocrit 22.8 % (42.0-52.0); Mean Corpuscular HGB Conc 29.4 g/dl (32-36); Mean Corpuscular Hemoglobin 28.9 pg (26-34); Mean Corpuscular Volume 98.3 fl (80-100); Mean Platelet Volume 9.4 fl (7.4-10.4); Platelet Count Result 245 k/mm3 (150-375); Red Blood Count 2.32 M/mm3 (4.6-6.20); Red Cell Distribution Width 17.5 % (11.5-14.5); White Blood Count 7.7 K/mm3 (4.5-10.0)
[2023-10-26 13:57] LABS: Hemoglobin 6.7 g/dL (14.0-18.0)
--- NOTE | 2023-10-26 14:58 | PM.IMPN ---
Progress Note: A&P Assessment and Plan (1) Acute anemia: Code(s): D64.9 - Anemia, unspecified Status: Acute (2) Elevated brain natriuretic peptide (BNP) level: Code(s): R79.89 - Other specified abnormal findings of blood chemistry Status: Acute (3) Acute kidney injury superimposed on CKD: Code(s): N17.9 - Acute kidney failure, unspecified; N18.9 - Chronic kidney disease, unspecified Status: Acute (4) Acute upper GI bleed: Code(s): K92.2 - Gastrointestinal hemorrhage, unspecified Status: Acute Plan Upper GI bleed.?? Keep patient NPO.? GI consulted. 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 2D echo EF of 60% Positive troponin due to demand ischemia.? Continue to monitor levels and monitor EKG changes. EKG shows sinus bradycardia with first-degree AV block Continue to monitor H&H closely.? Monitor vital signs.? ESRD Not on dialysis patient Nephrology consulted Okay to diurese the patient with IV Bumex as per Nephrology Creatinine 8.4 Avoid nephrotoxic drugs. PO BP meds on hold Avoid NSAIDs. PTH is 477 due to renal failure Routine CMP monitor GFR. Monitor electrolytes potassium levels. D-dimer 2.12 CT chest negative for PE History of alcoholism counseling done DVT prophylaxis.? SCD GI prophylaxis.? Protonix All records reviewed Discussed plan of care with the nursing staff and with the patient in detail.? Answered all questions and concerns from the patient.? All labs have been reviewed. Code status updated ?dictation may have been done utilizing a voice recognition system.? Attempts have been made to correct errors. However, there may be uncorrected grammatical, spelling, and recognition errors present. Subjective Date/time seen: 10/26/23 14:58 Interval history: Patient denies any chest pain or shortness of breath appears comfortable in bed no tarry stools no hematemesis hemoptysis Review of Systems Review of Systems: All systems reviewed & are unremarkable except as noted in HPI and below Exam Narrative: GENERAL: Well appearing, no acute distress. HEAD: Normocephalic, atraumatic. Conjunctiva is pale NECK: Supple. No adenopathy, no masses. RESPIRATORY: respirations nonlabored. , no rales, wheezing. CARDIOVASCULAR: Regular rate and rhythm without murmurs, . Peripheral pulses 2+ and equal bilaterally. ABDOMINAL: Soft, nontender, nondistended, no hepatosplenomegaly. Normoactive BS. MUSCULOSKELETAL: no Epigastric and no hypochondrial tenderness SKIN: Warm, dry, appears pale NEURO: A&O X3. Moves all extremities Objective Data Vital Signs Vital Signs: Vital Signs - 24 hr 10/25/23 16:04 10/25/23 16:19 10/25/23 17:16 Temperature 36.4 C 36.4 C 36.4 C Pulse Rate 66 70 67 Respiratory Rate 16 16 18 Blood Pressure 161/75 H 161/83 H 152/62 H Pulse Oximetry 94 94 92 Oxygen Delivery Oxygen Flow Rate 10/25/23 16:19 10/25/23 17:19 10/25/23 16:53 Temperature 36.6 C 36.5 C Pulse Rate 66 67 62 Respiratory Rate 20 20 16 Blood Pressure 155/66 H 152/62 H 159/71 H Pulse Oximetry 95 94 94 Oxygen Delivery Oxygen Flow Rate 10/25/23 16:00 10/25/23 16:15 10/25/23 16:31 Temperature Pulse Rate 67 70 61 Respiratory Rate 14 18 11 L Blood Pressure 159/71 H Pulse Oximetry 94 93 Oxygen Delivery Oxygen Flow Rate 10/25/23 16:46 10/25/23 18:15 10/25/23 18:00 Temperature 36.3 C L Pulse Rate 71 65 56 L Respiratory Rate 12 20 Blood Pressure 161/78 H 166/68 H Pulse Oximetry 92 96 Oxygen Delivery Oxygen Flow Rate 10/25/23 20:00 10/25/23 20:00 10/25/23 20:00 Temperature 36.6 C Pulse Rate 68 68 68 Respiratory Rate 18 18 Blood Pressure 165/74 H Pulse Oximetry 98 98 Oxygen Delivery Room Air Oxygen Flow Rate 10/25/23 22:00 10/26/23 00:09 10/26/23 00:00 Temperature 36.5 C Pulse Rate 64 65 60 Resp
[2023-10-26] MEDS: PANTOPRAZOLE SODIUM IV 40 MG VIAL IV PUSH (20:35)
[2023-10-27] VITALS (24 sets, daily range): BP systolic 138–182; BP diastolic 62–79; PULSE 69–86; RESP 14–24; TEMP 36.4–37.4; O2SAT 95–98
[2023-10-27] MEDS: hydrALAZINE HCL 20 MG/ML VIAL 10 MG IV PUSH ×2 (05:32→21:08)
[2023-10-27] MEDS: BUMETANIDE INJ 1 MG/4 ML VIAL IV PUSH ×2 (08:04→16:22)
[2023-10-27] MEDS: PANTOPRAZOLE SODIUM IV 40 MG VIAL IV PUSH ×2 (08:05→21:17)
--- NOTE | 2023-10-27 09:03 | WPDGIPROGNO ---
Progress Note: A&P Assessment and Plan (1) Acute blood loss anemia (ABLA): Code(s): D62 - Acute posthemorrhagic anemia Status: Acute Assessment and Plan: the patient's hemoglobin dropped to 5.9. Just last month it was 8.1 and was 9 point 7 in June of last year. He has had no emesis but has been nauseated. He has had black stools now for about 3 weeks. after transfusion with 1 unit of blood his hemoglobin is up to 6.3. He has been started on Protonix A duodenal AVM with fresh blood was seen on endoscopy. I fulgurated with the argon plasma banana handler. There is a chance he has additional lesions somewhere else in the small bowel. We should consider capsule endoscopy of the small bowel at some point. This needs to be done as an outpatient. (2) Elevated troponin: Code(s): R79.89 - Other specified abnormal findings of blood chemistry Status: Acute Assessment and Plan: 0.099. (3) Melena: Code(s): K92.1 - Melena Status: Acute Assessment and Plan: Hemoccult done in the emergency room was positive. His stool was brown but the patient states that he has had mostly black stools for 3 weeks. He does not take any NSAIDs but does take an 81 mg aspirin tablet daily. 10/27/2023 hemoglobin today is stable, 6.7 (4) ETOH abuse: Code(s): F10.10 - Alcohol abuse, uncomplicated Status: Acute Assessment and Plan: He admits to drinking vodka, several oz every day. His liver edge is slightly firm. (5) Chronic kidney disease (CKD), stage V: Code(s): N18.5 - Chronic kidney disease, stage 5 Status: Chronic Assessment and Plan: He is not on dialysis yet but his creatinine has been increasing. It is 8.1 with a BUN of 73 at time of admission. (6) Hepatomegaly: Code(s): R16.0 - Hepatomegaly, not elsewhere classified Status: Acute Assessment and Plan: his liver is slightly enlarged, palpable just below the right costal margin and mildly tender. LFTs however are normal. He admits to drinking vodka daily. He has never been told that he had liver disease, hepatitis or other liver problem. (7) Personal history of colonic polyps: Code(s): Z86.010 - Personal history of colonic polyps Status: Acute Assessment and Plan: just over a year ago I performed a colonoscopy took off 2 polyps which were relatively large. He has not had any red blood in his stools However, that would suggest that he has a lower gastrointestinal bleed. Plan from my perspective he can go home. I should add that there is no GI coverage this weekend. Dr. Russell will be covering starting Monday Subjective Date/time seen: 10/27/23 09:03 No complaints today except that he is tired at his hearing aid is not working. He does not believe he had any stools since his endoscopy but that recall he might of had 1 last night. He denies seeing blood. Exam Const: General: cooperative and healthy appearing Orientation/consciousness: patient oriented x3 HENMT: Head: normal to inspection Ears: hearing grossly normal bilaterally Mouth: Yes Normal oral and palatal mucosa present Eyes: General: appearance normal, both eyes and all related structures Neck: Neck: normal visual inspection Chest: Chest palpation & inspection: normal inspection of the chest Resp: Effort & Inspection: normal respiratory effort Auscultation: clear to auscultation bilaterally Cardio: Rate: regular rate Rhythm: regular rhythm GI: Inspection: normal to inspection Auscultation: normal bowel sounds Skin: General skin exam: normal color and no jaundice Neuro: General: patient oriented x3 Speech: normal speech Objective Data Vital Signs Vital Signs: Vital Signs - 24 hr 10/26/23 10:00 10/26/23 11:03 10/26/23 12:26 Temperature 37.0 C Pulse Rate 66 66 62 Respiratory Rate 20 16 Blood Pressure 161/68 H 124/67 Pulse Oximetry 95 96 Oxygen
[2023-10-27] MEDS: EPOETIN ALFA-EPBX 10,000 UNITS/ML VIAL 10000 UNITS IV PUSH (09:57)
[2023-10-27] MEDS: SODIUM CHLORIDE 0.9% IV 1,000 ML 999 ML IV CONT (09:58)
--- NOTE | 2023-10-27 11:19 | P.PNNP_ITS ---
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 * Two needles went in fairly easily per dialysis nurse. * Getting set up for outpatient dialysis. Hepatitis-B core antibody total is still pending * Will do another dialysis tomorrow (2) Acute upper GI bleed: Code(s): K92.2 - Gastrointestinal hemorrhage, unspecified Status: Acute Assessment and Plan: * s/p EGD with findings of duodenal AVMs * PRBC transfusion per protocol * follow serial H/Hs * Gastroenterology following * No black or bloody stools he says. * Hemoglobin still in the 6 is. * Transferrin saturation is 22 * Epogen ordered for today by Dr. Mensah on go (3) Volume overload: Code(s): E87.70 - Fluid overload, unspecified Status: Acute Assessment and Plan: * as suggested by admission CXR * elevated BNP noted * follow-up on Echo * diuresis and fluid removal with dialysis as tolerated 1st treatment is not aggressive on purpose to see how the patient does on the treatment. (4) Hypertension: Qualifiers: Hypertension type: primary hypertension Qualified Code(s): I10 - Essential (primary) hypertension Code(s): I10 - Essential (primary) hypertension Status: Chronic Assessment and Plan: * Blood pressure still a bit high * Will see how it does with dialysis (5) Anemia: Code(s): D64.9 - Anemia, unspecified Status: Chronic Assessment and Plan: * due to #2 and complicated by advanced CKD * suspect an element of uremic bleeding as well * Epogen with HD * iron studies noted * follow H/H (6) Secondary hyperparathyroidism: Code(s): N25.81 - Secondary hyperparathyroidism of renal origin Status: Chronic Assessment and Plan: * phosphorus mildly elevated * PTH and Vitamin D in range * follow trend as an outpatient Subjective Date/time seen: 10/27/23 11:19 Interval history: Patient feels okay today. Breathing okay. He is on dialysis. This is his 1st treatment he is getting 2hours and only a little to be gentle because of the 1st treatment. He was seen at 10:35 a.m.. Blood pressure is a bit generous will see how it does as dialysis goes on Exam Narrative: WDWN male in NAD skin no rash head ncat lungs clear cor reg no rub abd BS+ nontender and soft ext 1+ bilateral edema. Objective Data Vital Signs Vital Signs: Vital Signs - 24 hr 10/26/23 12:26 10/26/23 12:36 10/26/23 12:46 Temperature Pulse Rate 62 61 65 Respiratory Rate 16 17 16 Blood Pressure 124/67 139/68 154/78 H Pulse Oximetry 96 92 92 Oxygen Delivery Nasal Cannula Room Air Room Air Oxygen Flow Rate 2 10/26/23 13:00 10/26/23 14:00 10/26/23 16:00 Temperature 97 F L Pulse Rate 68 68 69 Respiratory Rate 18 Blood Pressure 166/70 H Pulse Oximetry 97 Oxygen Delivery Oxygen Flow Rate 10/26/23 16:00 10/26/23 16:00 10/26/23 18:00
--- NOTE | 2023-10-27 11:19 | PM.PNNEP ---
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 Two needles went in fairly easily per dialysis nurse. Getting set up for outpatient dialysis. Hepatitis-B core antibody total is still pending Will do another dialysis tomorrow (2) Acute upper GI bleed: Code(s): K92.2 - Gastrointestinal hemorrhage, unspecified Status: Acute Assessment and Plan: s/p EGD with findings of duodenal AVMs PRBC transfusion per protocol follow serial H/Hs Gastroenterology following No black or bloody stools he says. Hemoglobin still in the 6 is. Transferrin saturation is 22 Epogen ordered for today by Dr. Mensah on go (3) Volume overload: Code(s): E87.70 - Fluid overload, unspecified Status: Acute Assessment and Plan: as suggested by admission CXR elevated BNP noted follow-up on Echo diuresis and fluid removal with dialysis as tolerated 1st treatment is not aggressive on purpose to see how the patient does on the treatment. (4) Hypertension: Qualifiers: Hypertension type: primary hypertension Qualified Code(s): I10 - Essential (primary) hypertension Code(s): I10 - Essential (primary) hypertension Status: Chronic Assessment and Plan: Blood pressure still a bit high Will see how it does with dialysis (5) Anemia: Code(s): D64.9 - Anemia, unspecified Status: Chronic Assessment and Plan: due to #2 and complicated by advanced CKD suspect an element of uremic bleeding as well Epogen with HD iron studies noted follow H/H (6) Secondary hyperparathyroidism: Code(s): N25.81 - Secondary hyperparathyroidism of renal origin Status: Chronic Assessment and Plan: phosphorus mildly elevated PTH and Vitamin D in range follow trend as an outpatient Subjective Date/time seen: 10/27/23 11:19 Interval history: Patient feels okay today. Breathing okay. He is on dialysis. This is his 1st treatment he is getting 2hours and only a little to be gentle because of the 1st treatment. He was seen at 10:35 a.m.. Blood pressure is a bit generous will see how it does as dialysis goes on Exam Narrative: WDWN male in NAD skin no rash head ncat lungs clear cor reg no rub abd BS+ nontender and soft ext 1+ bilateral edema. Objective Data Vital Signs Vital Signs: Vital Signs - 24 hr 10/26/23 12:26 10/26/23 12:36 10/26/23 12:46 Temperature Pulse Rate 62 61 65 Respiratory Rate 16 17 16 Blood Pressure 124/67 139/68 154/78 H Pulse Oximetry 96 92 92 Oxygen Delivery Nasal Cannula Room Air Room Air Oxygen Flow Rate 2 10/26/23 13:00 10/26/23 14:00 10/26/23 16:00 Temperature 97 F L Pulse Rate 68 68 69 Respiratory Rate 18 Blood Pressure 166/70 H Pulse Oximetry 97 Oxygen Delivery Oxygen Flow Rate 10/26/23 16:00 10/26/23 16:00 10/26/23 18:00 Temperature 96.9 F L Pulse Rate 69 64 80 Respiratory Rate 18 18 Blood Pressure 152/61 H Pulse Oximetry 97 98 Oxygen Delivery Room Air Oxygen Flow Rate 10/26/23 20:11 10/26/23 20:00 10/26/23 20:00 Temperature 97.1 F L Pulse Rate 63 81 81 Respiratory Rate 18 18 Blood Pressure 169/68 H Pulse Oximetry 99 99 Oxygen Delivery Room Air Oxygen Flow Rate 10/26/23 21:22 10/26/23 23:34 10/26/23 23:43 Temperature 97.7 F Pulse Rate 74 83 88 Respiratory Rate 18 Blood Pressure 167/69 H Pulse Oximetry 97 Oxygen Delivery Oxygen Flow Rate 10/26/23 23:43 10/27/23 02:00 10/27/23 03:18 Temperature Pulse Rate 86 78 82 Respiratory Rate 18 Blood Pressure Pulse Oximetry 97 Oxygen Deli
--- NOTE | 2023-10-27 12:53 | PC.NURSE ---
This patient, Kar Sloan, was received from [imu] on 10/27/23 at 1255. Patient/family oriented to unit policies and routines. report from Lelo
--- NOTE | 2023-10-27 12:55 | PC.NURSE ---
This patient, Kar Sloan, was transferred to [ [id number] ] on 10/27/23 at 1250. Personal belongings sent with patient. Report given to [Samara UMAÑA ]. Appropriate documentation sent with patient.
[2023-10-27 13:27] LABS: Mean Corpuscular HGB Conc 30.2 g/dl (32-36); Mean Corpuscular Hemoglobin 29.1 pg (26-34); Mean Corpuscular Volume 96.2 fl (80-100); Mean Platelet Volume 9.6 fl (7.4-10.4); Platelet Count Result 214 k/mm3 (150-375); Red Blood Count 2.13 M/mm3 (4.6-6.20); Red Cell Distribution Width 17.2 % (11.5-14.5); White Blood Count 7.6 K/mm3 (4.5-10.0)
[2023-10-27 13:33] LABS: Hematocrit 20.5 % (42.0-52.0); Hemoglobin 6.2 g/dL (14.0-18.0)
[2023-10-27 13:59] LABS: Alanine Aminotransferase 25 U/L (6-50); Albumin Level 3.2 g/dL (3.5-5.1); Alkaline Phosphatase 76 U/L (38-126); Anion Gap 11 mmol/L (8-16); Aspartate Amino Transferase 21 U/L (17-59); Bilirubin,Total 0.4 mg/dL (0.2-1.3); Blood Urea Nitrogen 40 mg/dL (9-20); Calcium 8.4 mg/dL (8.4-10.2); Carbon Dioxide 24 mmol/L (22-30); Chloride 104 mmol/L (98-107); Estimated CRCL calculation 16 ml/min; Estimated Glomerular Filt Rate 12; Glucose 82 mg/dL (65-110); Potassium 3.5 mmol/L (3.4-5.0); Sodium 139 mmol/L (137-145)
--- NOTE | 2023-10-27 14:14 | PM.IMPN ---
Progress Note: A&P Assessment and Plan (1) Acute anemia: Code(s): D64.9 - Anemia, unspecified Status: Acute (2) Elevated brain natriuretic peptide (BNP) level: Code(s): R79.89 - Other specified abnormal findings of blood chemistry Status: Acute (3) Acute kidney injury superimposed on CKD: Code(s): N17.9 - Acute kidney failure, unspecified; N18.9 - Chronic kidney disease, unspecified Status: Acute (4) Acute upper GI bleed: Code(s): K92.2 - Gastrointestinal hemorrhage, unspecified Status: Acute Plan Upper GI bleed.?? Advance diet as tolerated GI consulted. 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 2D echo EF of 60% Positive troponin due to demand ischemia.? Continue to monitor levels and monitor EKG changes. EKG shows sinus bradycardia with first-degree AV block Continue to monitor H&H closely.? Monitor vital signs.? ESRD Was dialysis today Nephrology consulted Okay to diurese the patient with IV Bumex as per Nephrology Creatinine 8.4 Avoid nephrotoxic drugs. PO BP meds on hold Avoid NSAIDs. PTH is 477 due to renal failure Routine CMP monitor GFR. Monitor electrolytes potassium levels. D-dimer 2.12 CT chest negative for PE History of alcoholism counseling done DVT prophylaxis.? SCD GI prophylaxis.? Protonix All records reviewed Discussed plan of care with the nursing staff and with the patient in detail.? Answered all questions and concerns from the patient.? All labs have been reviewed. Code status updated ?dictation may have been done utilizing a voice recognition system.? Attempts have been made to correct errors. However, there may be uncorrected grammatical, spelling, and recognition errors present. Subjective Date/time seen: 10/27/23 14:14 Interval history: Patient feels okay today. Breathing okay. He is on dialysis. This is his 1st treatment he is getting 2hours and only a little to be gentle because of the 1st treatment. He was seen at 10:35 a.m.. Blood pressure is a bit generous will see how it does as dialysis goes on Review of Systems Review of Systems: All systems reviewed & are unremarkable except as noted in HPI and below Exam Narrative: GENERAL: Well appearing, no acute distress. HEAD: Normocephalic, atraumatic. Conjunctiva is pale NECK: Supple. No adenopathy, no masses. RESPIRATORY: respirations nonlabored. , no rales, wheezing. CARDIOVASCULAR: Regular rate and rhythm without murmurs, . Peripheral pulses 2+ and equal bilaterally. ABDOMINAL: Soft, nontender, nondistended, no hepatosplenomegaly. Normoactive BS. MUSCULOSKELETAL: no Epigastric and no hypochondrial tenderness SKIN: Warm, dry, appears pale NEURO: A&O X3. Moves all extremities Objective Data Vital Signs Vital Signs: Vital Signs - 24 hr 10/26/23 16:00 10/26/23 16:00 10/26/23 16:00 Temperature 36.1 C L Pulse Rate 69 69 64 Respiratory Rate 18 18 Blood Pressure 152/61 H Pulse Oximetry 97 98 Oxygen Delivery Room Air 10/26/23 18:00 10/26/23 20:11 10/26/23 20:00 Temperature 36.2 C L Pulse Rate 80 63 81 Respiratory Rate 18 Blood Pressure 169/68 H Pulse Oximetry 99 Oxygen Delivery 10/26/23 20:00 10/26/23 21:22 10/26/23 23:34 Temperature 36.5 C Pulse Rate 81 74 83 Respiratory Rate 18 18 Blood Pressure 167/69 H Pulse Oximetry 99 97 Oxygen Delivery Room Air 10/26/23 23:43 10/26/23 23:43 10/27/23 02:00 Temperature Pulse Rate 88 86 78 Respiratory Rate 18 Blood Pressure Pulse Oximetry 97 Oxygen Delivery Room Air 10/27/23 03:18 10/27/23 03:18 10/27/23 04:21 Temperature 36.4 C Pulse Rate 82 82 81 Respiratory Rate 18 18 Blood Pressure 182/72 H Pulse Oximetry 97 96 Oxygen Delivery Room Air 10/27/23 05:54 10/27/23 07:34 10/27/23 07:36 Temperatu
[2023-10-27] MEDS: ACETAMINOPHEN 325 MG TABLET 650 MG PO (14:55)
[2023-10-28] VITALS (18 sets, daily range): BP systolic 128–210; BP diastolic 59–98; PULSE 58–98; RESP 13–18; TEMP 36.6–37.4; O2SAT 95–100
[2023-10-28] MEDS: hydrALAZINE HCL 20 MG/ML VIAL 10 MG IV PUSH (05:28)
[2023-10-28 06:50] LABS: Hematocrit 21.6 % (42.0-52.0); Mean Corpuscular HGB Conc 29.6 g/dl (32-36); Mean Corpuscular Hemoglobin 28.7 pg (26-34); Mean Corpuscular Volume 96.9 fl (80-100); Mean Platelet Volume 9.8 fl (7.4-10.4); Platelet Count Result 215 k/mm3 (150-375); Red Blood Count 2.23 M/mm3 (4.6-6.20); Red Cell Distribution Width 17.3 % (11.5-14.5); White Blood Count 7.6 K/mm3 (4.5-10.0)
[2023-10-28 06:53] LABS: Hemoglobin 6.4 g/dL (14.0-18.0)
--- NOTE | 2023-10-28 06:55 | PC.NURSE ---
MD Marques informed for critical hemoglobin 6.4 NNO
[2023-10-28 07:11] LABS: Alanine Aminotransferase 22 U/L (6-50); Albumin Level 3.1 g/dL (3.5-5.1); Alkaline Phosphatase 74 U/L (38-126); Anion Gap 8 mmol/L (8-16); Aspartate Amino Transferase 23 U/L (17-59); Bilirubin,Total 0.3 mg/dL (0.2-1.3); Blood Urea Nitrogen 44 mg/dL (9-20); Calcium 8.9 mg/dL (8.4-10.2); Carbon Dioxide 25 mmol/L (22-30); Chloride 105 mmol/L (98-107); Estimated CRCL calculation 13 ml/min; Estimated Glomerular Filt Rate 10; Glucose 84 mg/dL (65-110); Phosphorus 3.6 mg/dL (2.5-4.5); Potassium 3.7 mmol/L (3.4-5.0); Sodium 138 mmol/L (137-145)
[2023-10-28] MEDS: PANTOPRAZOLE SODIUM IV 40 MG VIAL IV PUSH ×2 (08:49→20:58)
[2023-10-28] MEDS: BUMETANIDE INJ 1 MG/4 ML VIAL IV PUSH ×2 (08:49→20:57)
--- NOTE | 2023-10-28 09:53 | P.PNNP_ITS ---
Progress Note: A&P Assessment and Plan (1) Chronic kidney disease (CKD), stage V: Code(s): N18.5 - Chronic kidney disease, stage 5 Status: Chronic Assessment and Plan: * the patient is kidney function decline slowly. * Currently fluid issues plus high BUN and creatinine were the reason he started on dialysis. * He has a fistula which worked well yesterday. * Will do another treatment today, working our way up to full dose dialysis. * 2.5hours and 250 blood flow today. * No heparin due to recent history of GI bleed (2) Acute upper GI bleed: Code(s): K92.2 - Gastrointestinal hemorrhage, unspecified Status: Acute Assessment and Plan: * s/p EGD with findings of duodenal AVMs * PRBC transfusion per protocol * follow serial H/Hs * Gastroenterology following * No black or bloody stools he says. * Hemoglobin still in the 6 is. * Transferrin saturation is 22 * Will check a reticulocyte count * Epogen ordered for today for another dose. (3) Volume overload: Code(s): E87.70 - Fluid overload, unspecified Status: Acute Assessment and Plan: * as suggested by admission CXR * elevated BNP noted * follow-up on Echo * diuresis and fluid removal with dialysis as tolerated 1st treatment is not aggressive on purpose to see how the patient does on the treatment. * will add furosemide twice a day to continue to help with fluid (4) Hypertension: Qualifiers: Hypertension type: primary hypertension Qualified Code(s): I10 - Essential (primary) hypertension Code(s): I10 - Essential (primary) hypertension Status: Chronic Assessment and Plan: * Blood pressure still a bit high * Will see how it does with dialysis (5) Anemia: Code(s): D64.9 - Anemia, unspecified Status: Chronic Assessment and Plan: * due to #2 and complicated by advanced CKD * suspect an element of uremic bleeding as well * Epogen with HD * iron studies noted * follow H/H (6) Secondary hyperparathyroidism: Code(s): N25.81 - Secondary hyperparathyroidism of renal origin Status: Chronic Assessment and Plan: * phosphorus mildly elevated * PTH and Vitamin D in range * follow trend as an outpatient Subjective Date/time seen: 10/28/23 09:53 Interval history: Kar is feeling okay today. Lying in bed comfortably. He had some breakfast. No shortness of breath or chest pain due for dialysis this afternoon Exam Narrative: WDWN male in NAD skin no rash head ncat lungs clear bilaterally cor reg no rub or gallop abd BS+ nontender and soft ext 1+ bilateral edema and no cyanosis. Objective Data Vital Signs Vital Signs: Vital Signs - 24 hr 10/27/23 10:00 10/27/23 10:15 10/27/23 10:00 Temperature Pulse Rate 75 69 75 Respiratory Rate Blood Pressure 155/74 H 145/70 H Pulse Oximetry Oxygen Delivery 10/27/23 10:30 10/27/23 10:45 10/27/23 11:02 Temperature Pulse Rate 76 73 72 Respiratory Rate Blood Pressure 161/73 H 156/64 H 154/62 H Pulse Oximetry Oxygen Delivery 10/27/23 11:10 10/27/23 11:45 10/27/23 14:10 Temperature 98.1 F 99.3 F 98.5 F Pulse Rate 81 83 78 Res
--- NOTE | 2023-10-28 09:53 | PM.PNNEP ---
Progress Note: A&P Assessment and Plan (1) Chronic kidney disease (CKD), stage V: Code(s): N18.5 - Chronic kidney disease, stage 5 Status: Chronic Assessment and Plan: the patient is kidney function decline slowly. Currently fluid issues plus high BUN and creatinine were the reason he started on dialysis. He has a fistula which worked well yesterday. Will do another treatment today, working our way up to full dose dialysis. 2.5hours and 250 blood flow today. No heparin due to recent history of GI bleed (2) Acute upper GI bleed: Code(s): K92.2 - Gastrointestinal hemorrhage, unspecified Status: Acute Assessment and Plan: s/p EGD with findings of duodenal AVMs PRBC transfusion per protocol follow serial H/Hs Gastroenterology following No black or bloody stools he says. Hemoglobin still in the 6 is. Transferrin saturation is 22 Will check a reticulocyte count Epogen ordered for today for another dose. (3) Volume overload: Code(s): E87.70 - Fluid overload, unspecified Status: Acute Assessment and Plan: as suggested by admission CXR elevated BNP noted follow-up on Echo diuresis and fluid removal with dialysis as tolerated 1st treatment is not aggressive on purpose to see how the patient does on the treatment. will add furosemide twice a day to continue to help with fluid (4) Hypertension: Qualifiers: Hypertension type: primary hypertension Qualified Code(s): I10 - Essential (primary) hypertension Code(s): I10 - Essential (primary) hypertension Status: Chronic Assessment and Plan: Blood pressure still a bit high Will see how it does with dialysis (5) Anemia: Code(s): D64.9 - Anemia, unspecified Status: Chronic Assessment and Plan: due to #2 and complicated by advanced CKD suspect an element of uremic bleeding as well Epogen with HD iron studies noted follow H/H (6) Secondary hyperparathyroidism: Code(s): N25.81 - Secondary hyperparathyroidism of renal origin Status: Chronic Assessment and Plan: phosphorus mildly elevated PTH and Vitamin D in range follow trend as an outpatient Subjective Date/time seen: 10/28/23 09:53 Interval history: Kar is feeling okay today. Lying in bed comfortably. He had some breakfast. No shortness of breath or chest pain due for dialysis this afternoon Exam Narrative: WDWN male in NAD skin no rash head ncat lungs clear bilaterally cor reg no rub or gallop abd BS+ nontender and soft ext 1+ bilateral edema and no cyanosis. Objective Data Vital Signs Vital Signs: Vital Signs - 24 hr 10/27/23 10:00 10/27/23 10:15 10/27/23 10:00 Temperature Pulse Rate 75 69 75 Respiratory Rate Blood Pressure 155/74 H 145/70 H Pulse Oximetry Oxygen Delivery 10/27/23 10:30 10/27/23 10:45 10/27/23 11:02 Temperature Pulse Rate 76 73 72 Respiratory Rate Blood Pressure 161/73 H 156/64 H 154/62 H Pulse Oximetry Oxygen Delivery 10/27/23 11:10 10/27/23 11:45 10/27/23 14:10 Temperature 98.1 F 99.3 F 98.5 F Pulse Rate 81 83 78 Respiratory Rate 16 16 18 Blood Pressure 138/76 163/62 H 170/79 H Pulse Oximetry 97 97 Oxygen Delivery 10/27/23 20:00 10/27/23 22:00 10/28/23 05:26 Temperature 98.9 F 99.3 F Pulse Rate 86 98 Respiratory Rate 14 13 Blood Pressure 178/71 H 177/77 H Pulse Oximetry 97 95 100 Oxygen Delivery Room Air Intake/Output Intake/Output: Intake & Output 10/25/23 10/26/23 10/27/23 10/28/23 23:59 23:59 23:59 23:59 Intake Total 650 2360 1940 750 Output Total 1000 1200 1100 Balance 650 1360 740 -350 Meds/Results Medications: Active Medications Generic Name Dose Route Start Last Admin Trade Name Gopal PRN Reason Stop Dose Admin Acetaminophen 650 mg 10/27/23 14:52 10/27/23 14:55 Acetaminophen 325 Mg Tablet PO
--- NOTE | 2023-10-28 12:25 | PM.IMPN ---
Progress Note: A&P Assessment and Plan (1) Acute anemia: Code(s): D64.9 - Anemia, unspecified Status: Acute (2) Elevated brain natriuretic peptide (BNP) level: Code(s): R79.89 - Other specified abnormal findings of blood chemistry Status: Acute (3) Acute kidney injury superimposed on CKD: Code(s): N17.9 - Acute kidney failure, unspecified; N18.9 - Chronic kidney disease, unspecified Status: Acute (4) Acute upper GI bleed: Code(s): K92.2 - Gastrointestinal hemorrhage, unspecified Status: Acute Plan Upper GI bleed.?? Advance diet as tolerated GI consulted. 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 Continue to monitor levels and monitor EKG changes. EKG shows sinus bradycardia with first-degree AV block Continue to monitor H&H closely.? Monitor vital signs.? ESRD On dialysis Nephrology consulted Creatinine 8.4 Avoid nephrotoxic drugs. Furosemide twice a day PO BP meds on hold Avoid NSAIDs. PTH is 477 due to renal failure Routine CMP monitor GFR. Monitor electrolytes potassium levels. D-dimer 2.12 CT chest negative for PE History of alcoholism counseling done DVT prophylaxis.? SCD GI prophylaxis.? Protonix All records reviewed Discussed plan of care with the nursing staff and with the patient in detail.? Answered all questions and concerns from the patient.? All labs have been reviewed. Code status updated ?dictation may have been done utilizing a voice recognition system.? Attempts have been made to correct errors. However, there may be uncorrected grammatical, spelling, and recognition errors present. Subjective Date/time seen: 10/28/23 12:25 Interval history: Patient feels okay today.Breathing okay.He is on dialysis. Denies chest pain shortness Review of Systems Review of Systems: All systems reviewed & are unremarkable except as noted in HPI and below Exam Narrative: GENERAL: Well appearing, no acute distress. HEAD: Normocephalic, atraumatic. Conjunctiva is pale NECK: Supple. No adenopathy, no masses. RESPIRATORY: respirations nonlabored. , no rales, wheezing. CARDIOVASCULAR: Regular rate and rhythm without murmurs, . Peripheral pulses 2+ and equal bilaterally. ABDOMINAL: Soft, nontender, nondistended, no hepatosplenomegaly. Normoactive BS. MUSCULOSKELETAL: no Epigastric and no hypochondrial tenderness SKIN: Warm, dry, appears pale NEURO: A&O X3. Moves all extremities Objective Data Vital Signs Vital Signs: Vital Signs - 24 hr 10/27/23 14:10 10/27/23 20:00 10/27/23 22:00 Temperature 36.9 C 37.2 C Pulse Rate 78 86 Respiratory Rate 18 14 Blood Pressure 170/79 H 178/71 H Pulse Oximetry 97 97 95 Oxygen Delivery Room Air 10/28/23 05:26 10/28/23 08:40 Temperature 37.4 C Pulse Rate 98 Respiratory Rate 13 Blood Pressure 177/77 H Pulse Oximetry 100 Oxygen Delivery Room Air Intake/Output Intake/Output: Intake & Output 10/25/23 10/26/23 10/27/23 10/28/23 23:59 23:59 23:59 23:59 Intake Total 650 2360 1940 990 Output Total 1000 1200 1100 Balance 650 1360 740 -110 Meds/Results Medications: Active Medications Generic Name Dose Route Start Last Admin Trade Name Freq PRN Reason Stop Dose Admin Acetaminophen 650 mg 10/27/23 14:52 10/27/23 14:55 Acetaminophen 325 Mg Tablet PO 650 mg Q6H PRN Administration Mild Pain (1-3) or Fever Bumetanide 1 mg 10/25/23 17:00 10/28/23 08:49 Bumetanide Inj 1 Mg/4 Ml Vial IV PUSH 1 mg BID GIANNI Administration Furosemide 80 mg 10/28/23 17:00 Furosemide 80 Mg Tablet PO BID GIANNI Hydralazine HCl 10 mg 10/25/23 16:47 10/28/23 05:28 Hydralazine Hcl 20 Mg/Ml Vial IV PUSH 10 mg Q8H PRN Administration Blood Pressure - High Albumin H
--- NOTE | 2023-10-28 14:21 | PC.NURSE ---
On 10/28/23, the JIGGER OPERATOR, Zoe, provided care and completed [facility] documentation on this patient. I have reviewed the JIGGER OPERATOR's documentation and agree with the findings.
--- NOTE | 2023-10-28 16:38 | PC.NURSE ---
Pt BP elevated. Pt about to go to Dialysis. Will notify Dialysis of elevated BP.
[2023-10-28] MEDS: EPOETIN ALFA-EPBX 10,000 UNITS/ML VIAL 10000 UNITS IV PUSH (20:17)
[2023-10-28] MEDS: FUROSEMIDE 80 MG TABLET PO (20:58)
[2023-10-29 01:55] LABS: Hepatitis B Core Ab Total Nonreactive (Nonreactive)
[2023-10-29 06:00] VITALS: BP 153/71; PULSE 83; RESP 14; TEMP 36.8; O2SAT 99
[2023-10-29 06:19] LABS: Hematocrit 22.3 % (42.0-52.0); Immature Reticulocyte Fraction 35.2 % (3.0-15.9); Mean Corpuscular HGB Conc 30.5 g/dl (32-36); Mean Corpuscular Hemoglobin 29.8 pg (26-34); Mean Corpuscular Volume 97.8 fl (80-100); Mean Platelet Volume 9.9 fl (7.4-10.4); Platelet Count Result 222 k/mm3 (150-375); Red Blood Count 2.28 M/mm3 (4.6-6.20); Red Cell Distribution Width 16.8 % (11.5-14.5); Reticulocyte Hemoglobin Conten 29.7 pg (28.2-35.7); Reticulocytes Absolute 0.08 M/mm3 (0.02-0.1); White Blood Count 7.4 K/mm3 (4.5-10.0)
[2023-10-29 06:21] LABS: Hemoglobin 6.8 g/dL (14.0-18.0)
[2023-10-29 06:49] LABS: Alanine Aminotransferase 20 U/L (6-50); Albumin Level 3.2 g/dL (3.5-5.1); Alkaline Phosphatase 72 U/L (38-126); Anion Gap 6 mmol/L (8-16); Aspartate Amino Transferase 20 U/L (17-59); Bilirubin,Total 0.3 mg/dL (0.2-1.3); Blood Urea Nitrogen 31 mg/dL (9-20); Carbon Dioxide 31 mmol/L (22-30); Chloride 101 mmol/L (98-107); Estimated CRCL calculation 16 ml/min; Estimated Glomerular Filt Rate 12; Glucose 83 mg/dL (65-110); Potassium 3.8 mmol/L (3.4-5.0); Sodium 138 mmol/L (137-145)
--- NOTE | 2023-10-29 09:13 | P.PNNP_ITS ---
Progress Note: A&P Assessment and Plan (1) Chronic kidney disease (CKD), stage V: Code(s): N18.5 - Chronic kidney disease, stage 5 Status: Chronic Assessment and Plan: * the patient is kidney function decline slowly. * Currently fluid issues plus high BUN and creatinine were the reason he started on dialysis. * He has a fistula which worked well Dk and yesterday. * Will do another treatment tomorrow. * Will increase dose to 300/3 hours * await placement at [facility] (2) Acute upper GI bleed: Code(s): K92.2 - Gastrointestinal hemorrhage, unspecified Status: Acute Assessment and Plan: * s/p EGD with findings of duodenal AVMs * PRBC transfusion per protocol * hemoglobin up to 6.8. * Transferrin saturation is 22 * Reticulocyte count is 3.6, suggesting good response to the EPO. * Will give more EPO with dialysis tomorrow. (3) Volume overload: Code(s): E87.70 - Fluid overload, unspecified Status: Acute Assessment and Plan: * as suggested by admission CXR * elevated BNP noted * follow-up on Echo * Swelling is better. Continue Lasix and fluid removal with dialysis (4) Hypertension: Qualifiers: Hypertension type: primary hypertension Qualified Code(s): I10 - Essential (primary) hypertension Code(s): I10 - Essential (primary) hypertension Status: Chronic Assessment and Plan: * Blood pressure is coming down. Ranging from 130-170 now. Mostly 150 and lower * continue same medications for now. * Will fine tune medications as an outpatient (5) Anemia: Code(s): D64.9 - Anemia, unspecified Status: Chronic Assessment and Plan: * due to #2 and complicated by advanced CKD * suspect an element of uremic bleeding as well * Epogen with HD * iron studies noted * retic 3.6 (6) Secondary hyperparathyroidism: Code(s): N25.81 - Secondary hyperparathyroidism of renal origin Status: Chronic Assessment and Plan: * phosphorus normal last checked * PTH and Vitamin D in range * follow trend as an outpatient Subjective Date/time seen: 10/29/23 09:13 Interval history: Kar is feeling better today. No shortness of breath. Swelling is better. Exam Narrative: WDWN male in NAD skin no rash or subcu nodules head ncat lungs clear bilaterally cor reg no rub or gallop abd BS+ nontender and soft ext Trace if any bilateral edema and no cyanosis. Objective Data Vital Signs Vital Signs: Vital Signs - 24 hr 10/28/23 14:00 10/28/23 16:35 10/28/23 17:41 Temperature 97.9 F 98.2 F Pulse Rate 80 78 Respiratory Rate 18 18 Blood Pressure 168/65 H 180/79 H 210/98 H Pulse Oximetry 96 Oxygen Delivery 10/28/23 17:52 10/28/23 18:00 10/28/23 18:15 Temperature Pulse Rate 74 67 71 Respiratory Rate Blood Pressure 189/82 H 162/92 H 172/76 H Pulse Oximetry Oxygen Delivery 10/28/23 19:45 10/28/23 20:36 10/28/23 18:30 Temperature 98.0 F Pulse Rate 83 78 73 Respiratory Rate 18 Blood Pressure 153/59 H 143/76 H 176/68 H Pulse Oximetry Oxygen Delivery 10/28/23 18:45 10/28/23 19:00
--- NOTE | 2023-10-29 09:13 | PM.PNNEP ---
Progress Note: A&P Assessment and Plan (1) Chronic kidney disease (CKD), stage V: Code(s): N18.5 - Chronic kidney disease, stage 5 Status: Chronic Assessment and Plan: the patient is kidney function decline slowly. Currently fluid issues plus high BUN and creatinine were the reason he started on dialysis. He has a fistula which worked well Monday and yesterday. Will do another treatment tomorrow. Will increase dose to 300/3 hours await placement at [facility] (2) Acute upper GI bleed: Code(s): K92.2 - Gastrointestinal hemorrhage, unspecified Status: Acute Assessment and Plan: s/p EGD with findings of duodenal AVMs PRBC transfusion per protocol hemoglobin up to 6.8. Transferrin saturation is 22 Reticulocyte count is 3.6, suggesting good response to the EPO. Will give more EPO with dialysis tomorrow. (3) Volume overload: Code(s): E87.70 - Fluid overload, unspecified Status: Acute Assessment and Plan: as suggested by admission CXR elevated BNP noted follow-up on Echo Swelling is better. Continue Lasix and fluid removal with dialysis (4) Hypertension: Qualifiers: Hypertension type: primary hypertension Qualified Code(s): I10 - Essential (primary) hypertension Code(s): I10 - Essential (primary) hypertension Status: Chronic Assessment and Plan: Blood pressure is coming down. Ranging from 130-170 now. Mostly 150 and lower continue same medications for now. Will fine tune medications as an outpatient (5) Anemia: Code(s): D64.9 - Anemia, unspecified Status: Chronic Assessment and Plan: due to #2 and complicated by advanced CKD suspect an element of uremic bleeding as well Epogen with HD iron studies noted retic 3.6 (6) Secondary hyperparathyroidism: Code(s): N25.81 - Secondary hyperparathyroidism of renal origin Status: Chronic Assessment and Plan: phosphorus normal last checked PTH and Vitamin D in range follow trend as an outpatient Subjective Date/time seen: 10/29/23 09:13 Interval history: Kar is feeling better today. No shortness of breath. Swelling is better. Exam Narrative: WDWN male in NAD skin no rash or subcu nodules head ncat lungs clear bilaterally cor reg no rub or gallop abd BS+ nontender and soft ext Trace if any bilateral edema and no cyanosis. Objective Data Vital Signs Vital Signs: Vital Signs - 24 hr 10/28/23 14:00 10/28/23 16:35 10/28/23 17:41 Temperature 97.9 F 98.2 F Pulse Rate 80 78 Respiratory Rate 18 18 Blood Pressure 168/65 H 180/79 H 210/98 H Pulse Oximetry 96 Oxygen Delivery 10/28/23 17:52 10/28/23 18:00 10/28/23 18:15 Temperature Pulse Rate 74 67 71 Respiratory Rate Blood Pressure 189/82 H 162/92 H 172/76 H Pulse Oximetry Oxygen Delivery 10/28/23 19:45 10/28/23 20:36 10/28/23 18:30 Temperature 98.0 F Pulse Rate 83 78 73 Respiratory Rate 18 Blood Pressure 153/59 H 143/76 H 176/68 H Pulse Oximetry Oxygen Delivery 10/28/23 18:45 10/28/23 19:00 10/28/23 19:15 Temperature Pulse Rate 71 75 75 Respiratory Rate Blood Pressure 174/81 H 178/90 H 164/97 H Pulse Oximetry Oxygen Delivery 10/28/23 19:30 10/28/23 20:00 10/28/23 20:15 Temperature Pulse Rate 58 L 77 69 Respiratory Rate Blood Pressure 157/80 H 160/86 H 129/79 Pulse Oximetry Oxygen Delivery 10/28/23 20:22 10/28/23 20:00 10/28/23 22:00 Temperature 98.7 F Pulse Rate 77 93 Respiratory Rate 16 Blood Pressure 128/71 169/78 H Pulse Oximetry 96 95 Oxygen Delivery Room Air 10/29/23 06:00 Temperature 98.2 F Pulse Rate 83 Respiratory Rate 14 Blood Pressure 153/71 H Pulse Oximetry 99 Oxygen Delivery Intake/Output Intake/Output: Intake & Output 10/26/23 10/27/23 10/28/23 10/29/23 23:59 23:59 23:59 23
[2023-10-29] MEDS: PANTOPRAZOLE SODIUM IV 40 MG VIAL IV PUSH ×2 (09:28→20:43)
[2023-10-29] MEDS: BUMETANIDE INJ 1 MG/4 ML VIAL IV PUSH ×2 (09:28→16:48)
[2023-10-29] MEDS: FUROSEMIDE 80 MG TABLET PO ×2 (09:29→16:49)
--- NOTE | 2023-10-29 09:41 | PM.IMPN ---
Progress Note: A&P Assessment and Plan (1) Acute anemia: Code(s): D64.9 - Anemia, unspecified Status: Acute (2) Elevated brain natriuretic peptide (BNP) level: Code(s): R79.89 - Other specified abnormal findings of blood chemistry Status: Acute (3) Acute kidney injury superimposed on CKD: Code(s): N17.9 - Acute kidney failure, unspecified; N18.9 - Chronic kidney disease, unspecified Status: Acute (4) Acute upper GI bleed: Code(s): K92.2 - Gastrointestinal hemorrhage, unspecified Status: Acute Plan Upper GI bleed.?? Advance diet as tolerated GI consulted. 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 Continue to monitor levels and monitor EKG changes. EKG shows sinus bradycardia with first-degree AV block Continue to monitor H&H closely.? Monitor vital signs.? ESRD On dialysis Nephrology consulted Creatinine 5.4 Avoid nephrotoxic drugs. Furosemide twice a day PO BP meds on hold Avoid NSAIDs. D-dimer 2.12 CT chest negative for PE History of alcoholism counseling done DVT prophylaxis.? SCD GI prophylaxis.? Protonix All records reviewed Discussed plan of care with the nursing staff and with the patient in detail.? Answered all questions and concerns from the patient.? All labs have been reviewed. Code status updated ?dictation may have been done utilizing a voice recognition system.? Attempts have been made to correct errors. However, there may be uncorrected grammatical, spelling, and recognition errors present. Subjective Date/time seen: 10/29/23 09:41 Interval history: Kar is feeling better today. No shortness of breath. Swelling is better. Review of Systems Review of Systems: All systems reviewed & are unremarkable except as noted in HPI and below Exam Narrative: GENERAL: Well appearing, no acute distress. HEAD: Normocephalic, atraumatic. Conjunctiva is pale NECK: Supple. No adenopathy, no masses. RESPIRATORY: respirations nonlabored. , no rales, wheezing. CARDIOVASCULAR: Regular rate and rhythm without murmurs, . Peripheral pulses 2+ and equal bilaterally. ABDOMINAL: Soft, nontender, nondistended, no hepatosplenomegaly. Normoactive BS. MUSCULOSKELETAL: no Epigastric and no hypochondrial tenderness SKIN: Warm, dry, appears pale NEURO: A&O X3. Moves all extremities Objective Data Vital Signs Vital Signs: Vital Signs - 24 hr 10/28/23 14:00 10/28/23 16:35 10/28/23 17:41 Temperature 36.6 C 36.8 C Pulse Rate 80 78 Respiratory Rate 18 18 Blood Pressure 168/65 H 180/79 H 210/98 H Pulse Oximetry 96 Oxygen Delivery 10/28/23 17:52 10/28/23 18:00 10/28/23 18:15 Temperature Pulse Rate 74 67 71 Respiratory Rate Blood Pressure 189/82 H 162/92 H 172/76 H Pulse Oximetry Oxygen Delivery 10/28/23 19:45 10/28/23 20:36 10/28/23 18:30 Temperature 36.7 C Pulse Rate 83 78 73 Respiratory Rate 18 Blood Pressure 153/59 H 143/76 H 176/68 H Pulse Oximetry Oxygen Delivery 10/28/23 18:45 10/28/23 19:00 10/28/23 19:15 Temperature Pulse Rate 71 75 75 Respiratory Rate Blood Pressure 174/81 H 178/90 H 164/97 H Pulse Oximetry Oxygen Delivery 10/28/23 19:30 10/28/23 20:00 10/28/23 20:15 Temperature Pulse Rate 58 L 77 69 Respiratory Rate Blood Pressure 157/80 H 160/86 H 129/79 Pulse Oximetry Oxygen Delivery 10/28/23 20:22 10/28/23 20:00 10/28/23 22:00 Temperature 37.1 C Pulse Rate 77 93 Respiratory Rate 16 Blood Pressure 128/71 169/78 H Pulse Oximetry 96 95 Oxygen Delivery Room Air 10/29/23 06:00 Temperature 36.8 C Pulse Rate 83 Respiratory Rate 14 Blood Pressure 153/71 H Pulse Oximetry 99 Oxygen Delivery Intake/Output Intake/Output: Intake & Output
[2023-10-29 14:00] VITALS: BP 152/71; PULSE 87; RESP 14; TEMP 36.8; O2SAT 98
[2023-10-29 21:50] VITALS: BP 102/53; PULSE 60; RESP 18; TEMP 36.4; O2SAT 97
[2023-10-30] VITALS (15 sets, daily range): BP systolic 126–170; BP diastolic 59–85; PULSE 50–93; RESP 16–20; TEMP 36.8–37.2; O2SAT 95–100
[2023-10-30 06:31] LABS: Hematocrit 23.1 % (42.0-52.0); Hemoglobin 7.1 g/dL (14.0-18.0); Mean Corpuscular HGB Conc 30.7 g/dl (32-36); Mean Corpuscular Hemoglobin 29.7 pg (26-34); Mean Corpuscular Volume 96.7 fl (80-100); Mean Platelet Volume 9.6 fl (7.4-10.4); Platelet Count Result 236 k/mm3 (150-375); Red Blood Count 2.39 M/mm3 (4.6-6.20); White Blood Count 7.3 K/mm3 (4.5-10.0)
[2023-10-30 06:45] LABS: Alanine Aminotransferase 18 U/L (6-50); Albumin Level 3.4 g/dL (3.5-5.1); Alkaline Phosphatase 77 U/L (38-126); Anion Gap 8 mmol/L (8-16); Aspartate Amino Transferase 21 U/L (17-59); Bilirubin,Total 0.3 mg/dL (0.2-1.3); Blood Urea Nitrogen 41 mg/dL (9-20); Calcium 9.3 mg/dL (8.4-10.2); Carbon Dioxide 27 mmol/L (22-30); Chloride 101 mmol/L (98-107); Estimated CRCL calculation 12 ml/min; Estimated Glomerular Filt Rate 8; Glucose 87 mg/dL (65-110); Phosphorus 5.3 mg/dL (2.5-4.5); Potassium 3.7 mmol/L (3.4-5.0); Sodium 136 mmol/L (137-145)
[2023-10-30] MEDS: HEPARIN SODIUM 1,000 UNITS/ML VIAL 1000 UNITS IV PUSH (14:24)
--- NOTE | 2023-10-30 14:32 | PM.IMPN ---
Progress Note: A&P Assessment and Plan (1) Acute anemia: Code(s): D64.9 - Anemia, unspecified Status: Acute Assessment and Plan: Goal Hb >7 (2) Elevated brain natriuretic peptide (BNP) level: Code(s): R79.89 - Other specified abnormal findings of blood chemistry Status: Acute (3) Acute kidney injury superimposed on CKD: Code(s): N17.9 - Acute kidney failure, unspecified; N18.9 - Chronic kidney disease, unspecified Status: Acute (4) Acute upper GI bleed: Code(s): K92.2 - Gastrointestinal hemorrhage, unspecified Status: Acute Assessment and Plan: Bleeding AVM on EGD Plan Upper GI bleed.?? Advance diet as tolerated GI consulted. 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 Continue to monitor levels and monitor EKG changes. EKG shows sinus bradycardia with first-degree AV block Continue to monitor H&H closely.? Monitor vital signs.? ESRD On dialysis Nephrology consulted Creatinine 5.4 Avoid nephrotoxic drugs. Furosemide twice a day PO BP meds on hold Avoid NSAIDs. D-dimer 2.12 CT chest negative for PE History of alcoholism counseling done 10/30/23: Goal Hb >7; will monitor tomorrow DVT prophylaxis.? SCD GI prophylaxis.? Protonix All records reviewed Discussed plan of care with the nursing staff and with the patient in detail.? Answered all questions and concerns from the patient.? All labs have been reviewed. Code status updated ?dictation may have been done utilizing a voice recognition system.? Attempts have been made to correct errors. However, there may be uncorrected grammatical, spelling, and recognition errors present. Time Spent With Patient Time with patient: 25 - 35 minutes Subjective Date/time seen: 10/30/23 14:32 Interval history: Kar is feeling better today. Hb 7.1 Review of Systems Review of Systems: All systems reviewed & are unremarkable except as noted in HPI and below Constitutional: Constitutional: Reports fatigue and Reports weakness Eyes: Eyes: Reports no additional eye complaints ENT: Reports system reviewed and no additional complaints, except as documented Cardiovascular: Cardiovascular: Reports no additional cardiovascular complaints and Reports dyspnea Respiratory: Respiratory: Reports dyspnea Gastrointestinal: Gastrointestinal: Reports melena Musculoskeletal: Musculoskeletal: Reports no additional musculoskeletal complaints Neurologic: Reports system reviewed and no additional complaints, except as documented and Reports weakness Endocrine: Endocrine: Reports fatigue Exam Narrative: GENERAL: Well appearing, no acute distress. HEAD: Normocephalic, atraumatic. Conjunctiva is pale NECK: Supple. No adenopathy, no masses. RESPIRATORY: respirations nonlabored. , no rales, wheezing. CARDIOVASCULAR: Regular rate and rhythm without murmurs, . Peripheral pulses 2+ and equal bilaterally. ABDOMINAL: Soft, nontender, nondistended, no hepatosplenomegaly. Normoactive BS. MUSCULOSKELETAL: no Epigastric and no hypochondrial tenderness SKIN: Warm, dry, appears pale NEURO: A&O X3. Moves all extremities Objective Data Vital Signs Vital Signs: Vital Signs - 24 hr 10/29/23 20:00 10/29/23 21:50 10/30/23 06:00 Temperature 97.6 F 98.2 F Pulse Rate 60 62 Respiratory Rate 18 18 Blood Pressure 102/53 L 126/59 L Pulse Oximetry 97 95 Oxygen Delivery Room Air 10/30/23 08:00 Temperature Pulse Rate Respiratory Rate Blood Pressure Pulse Oximetry Oxygen Delivery Room Air Intake/Output Intake/Output: Intake & Output 10/27/23 10/28/23 10/29/23 10/30/23 23:59 23:59 23:59 23:59 Intake Total 1940 1347 880 790 Output Total 1200 4100 Balance 740 -3833 880 790 Meds/Results Medications: A
--- NOTE | 2023-10-30 16:10 | PM.PNNEP ---
Progress Note: A&P Assessment and Plan (1) End stage renal disease: Code(s): N18.6 - End stage renal disease Status: Chronic Assessment and Plan: slow and progressive decline noted however, volume overload in conjunction with azotemia/uremia are the reason for initiation of SHOE LASTER/dialysis AVF worked well last week (on 10/27 and 10/28); some issues noted earlier today HD today awaiting placement for outpatient dialysis to finalized (2) Acute upper GI bleed: Code(s): K92.2 - Gastrointestinal hemorrhage, unspecified Status: Acute Assessment and Plan: s/p EGD with findings of duodenal AVMs PRBC transfusion per protocol H/H slowly improving Gastroenterology following (3) Volume overload: Code(s): E87.70 - Fluid overload, unspecified Status: Acute Assessment and Plan: as suggested by admission CXR elevated BNP noted follow-up on Echo continue diuretics and ultrafiltration with HD (4) Hypertension: Qualifiers: Hypertension type: primary hypertension Qualified Code(s): I10 - Essential (primary) hypertension Code(s): I10 - Essential (primary) hypertension Status: Chronic Assessment and Plan: slow improvement noted follow trend of hemodynamics (5) Anemia: Code(s): D64.9 - Anemia, unspecified Status: Chronic Assessment and Plan: due to #2 and complicated by advanced CKD suspect an element of uremic bleeding as well Epogen with HD (6) Secondary hyperparathyroidism: Code(s): N25.81 - Secondary hyperparathyroidism of renal origin Status: Chronic Assessment and Plan: phosphorus in range by last check PTH and Vitamin D in range follow trend as an outpatient Will continue follow. Subjective Date/time seen: 10/30/23 16:10 Interval history: Follow-up for chronic kidney disease stage V with transition to end stage renal disease now on hemodialysis. Chart reviewed since last seen -- tolerated dialysis treatments x 2 last week; some difficulties cannulating AVF earlier today but able to do this afternoon and tolerating dialysis at the time of my visit (seen on HD at 4:00pm); H/H relatively stable if not improved; no apparent distress noted. Exam Narrative: General: middle aged WD/WN male in NAD Heart: normal S1 and S2; no rub Lungs: clear to auscultation Abdomen: soft, nontender, nondistended, positive bowel sounds Extremities: no cyanosis or clubbing; trace edema Skin: warm and dry Objective Data Vital Signs Vital Signs: Vital Signs Temp Pulse Resp BP Pulse Ox O2 Del Method O2 Flow Rate 10/30/23 16:00 66 150/83 H 10/30/23 15:45 65 170/80 H 10/30/23 15:30 64 159/82 H 10/30/23 15:15 64 164/84 H 10/30/23 15:00 65 161/82 H 10/30/23 14:45 65 162/82 H 10/30/23 14:30 67 151/85 H 10/30/23 14:15 70 136/84 10/30/23 14:00 65 159/75 H 10/30/23 13:53 70 145/85 H 10/30/23 13:43 98.2 F 64 18 141/78 H 100 10/30/23 13:43 0 10/30/23 08:00 Room Air 10/30/23 06:00 98.2 F 62 18 126/59 L 95 Intake/Output Intake/Output: Intake & Output 10/27/23 10/28/23 10/29/23 10/30/23 23:59 23:59 23:59 23:59 Intake Total 1940 8967 461 2499 Output Total 1200 4100 1420 Balance 740 -9434 880 854 Meds/Results Medications: Active Medications Generic Name Dose Route Start Last Admin Trade Name Freq PRN Reason Stop Dose Admin Acetaminophen 650 mg 10/27/23 14:52 10/27/23 14:55 Acetaminophen 325 Mg Tablet PO 650 mg Q6H PRN Administration Mild Pain (1-3) or Fever Bumetanide 1 mg 10/25/23 17:00 10/30/23 17:45 Bumetanide Inj 1 Mg/4 Ml Vial IV PUSH 1 mg BID GIANNI Administration Furosemide 80 mg 10/28/23 17:00 10/30/23 17:45 Furosemide 80 Mg Tablet PO 80 mg BID GIANNI Administration Hydralazine HCl 10 mg 10/25/23 16:47
--- NOTE | 2023-10-30 16:10 | P.PNNP_ITS ---
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 * AVF worked well last week (on 10/27 and 10/28); some issues noted earlier today * HD today * awaiting placement for outpatient dialysis to finalized (2) Acute upper GI bleed: Code(s): K92.2 - Gastrointestinal hemorrhage, unspecified Status: Acute Assessment and Plan: * s/p EGD with findings of duodenal AVMs * PRBC transfusion per protocol * H/H slowly improving * Gastroenterology following (3) Volume overload: Code(s): E87.70 - Fluid overload, unspecified Status: Acute Assessment and Plan: * as suggested by admission CXR * elevated BNP noted * follow-up on Echo * continue diuretics and ultrafiltration with HD (4) Hypertension: Qualifiers: Hypertension type: primary hypertension Qualified Code(s): I10 - Essential (primary) hypertension Code(s): I10 - Essential (primary) hypertension Status: Chronic Assessment and Plan: * slow improvement noted * follow trend of hemodynamics (5) Anemia: Code(s): D64.9 - Anemia, unspecified Status: Chronic Assessment and Plan: * due to #2 and complicated by advanced CKD * suspect an element of uremic bleeding as well * Epogen with HD (6) Secondary hyperparathyroidism: Code(s): N25.81 - Secondary hyperparathyroidism of renal origin Status: Chronic Assessment and Plan: * phosphorus in range by last check * PTH and Vitamin D in range * follow trend as an outpatient Will continue follow. Subjective Date/time seen: 10/30/23 16:10 Interval history: Follow-up for chronic kidney disease stage V with transition to end stage renal disease now on hemodialysis. Chart reviewed since last seen -- tolerated dialysis treatments x 2 last week; some difficulties cannulating AVF earlier today but able to do this afternoon and tolerating dialysis at the time of my visit (seen on HD at 4:00pm); H/H relatively stable if not improved; no apparent distress noted. Exam Narrative: General: middle aged WD/WN male in NAD Heart: normal S1 and S2; no rub Lungs: clear to auscultation Abdomen: soft, nontender, nondistended, positive bowel sounds Extremities: no cyanosis or clubbing; trace edema Skin: warm and dry Objective Data Vital Signs Vital Signs: Vital Signs Temp Pulse Resp BP Pulse Ox O2 Del Method O2 Flow Rate 10/30/23 16:00 66 150/83 H 10/30/23 15:45 65 170/80 H 10/30/23 15:30 64 159/82 H 10/30/23 15:15 64 164/84 H 10/30/23 15:00 65 161/82 H 10/30/23 14:45 65 162/82 H 10/30/23 14:30 67 151/85 H 10/30/23 14:15 70 136/84 10/30/23 14:00 65 159/75 H 10/30/23 13:53 70 145/85 H 10/30/23 13:43 98.2 F 64 18 141/78 H 100 10/30/23 13:43 0 10/30/23 08:00 Room Air 10/30/23 06:00 98.2 F 62 18 126/59 L 95 Intake/Output Intake/Output: Intake & Output
[2023-10-30] MEDS: EPOETIN ALFA 20,000 UNITS/ML VIAL 20000 UNITS IV PUSH (16:18)
[2023-10-30] MEDS: BUMETANIDE INJ 1 MG/4 ML VIAL IV PUSH (17:45)
[2023-10-30] MEDS: FUROSEMIDE 80 MG TABLET PO (17:45)
[2023-10-30] MEDS: PANTOPRAZOLE SODIUM IV 40 MG VIAL IV PUSH (20:29)
[2023-10-31] VITALS (8 sets, daily range): BP systolic 120–158; BP diastolic 72–81; PULSE 73–100; RESP 16–20; TEMP 36.4–37.3; O2SAT 91–100
[2023-10-31 07:05] LABS: Basophils Percent Auto 0.5 % (0.2-1.2); Eosinophils Absolute Auto 0.5 K/mm3 (0-0.3); Eosinophils Percent Auto 7.3 % (0-4.4); Hematocrit 23.5 % (42.0-52.0); Immature Granulocyte Absolute 0.03 K/mm3 (0.00-0.031); Immature Granulocyte Percent A 0.4 % (0-0.5); Lymphocytes Absolute Auto 0.79 K/mm3 (0.9-3.2); Lymphocytes Percent Auto 10.7 % (18.3-44.2); Mean Corpuscular HGB Conc 28.5 g/dl (32-36); Mean Corpuscular Hemoglobin 28.6 pg (26-34); Mean Corpuscular Volume 100.4 fl (80-100); Mean Platelet Volume 9.9 fl (7.4-10.4); Monocytes Percent Auto 13.1 % (2.6-8.5); Platelet Count Result 226 k/mm3 (150-375); Red Blood Count 2.34 M/mm3 (4.6-6.20); Red Cell Distribution Width 15.7 % (11.5-14.5); White Blood Count 7.4 K/mm3 (4.5-10.0)
[2023-10-31 07:21] LABS: Alanine Aminotransferase 16 U/L (6-50); Albumin Level 3.3 g/dL (3.5-5.1); Alkaline Phosphatase 72 U/L (38-126); Anion Gap 8 mmol/L (8-16); Aspartate Amino Transferase 19 U/L (17-59); Bilirubin,Total 0.3 mg/dL (0.2-1.3); Blood Urea Nitrogen 37 mg/dL (9-20); Calcium 9.1 mg/dL (8.4-10.2); Carbon Dioxide 25 mmol/L (22-30); Chloride 101 mmol/L (98-107); Estimated CRCL calculation 14 ml/min; Estimated Glomerular Filt Rate 10; Glucose 94 mg/dL (65-110); Sodium 134 mmol/L (137-145)
[2023-10-31 07:30] LABS: Hemoglobin 6.7 g/dL (14.0-18.0)
[2023-10-31 07:32] LABS: Platelet Estimate Adequate (Adequate); Schistocytes None Seen (NORMAL)
[2023-10-31 07:33] LABS: Hypochromasia 2+ (NORMAL); Ovalocytes 1+ (NORMAL); Polychromasia 1+ (NORMAL)
[2023-10-31 08:12] LABS: Hematocrit 22.5 % (42.0-52.0)
[2023-10-31 08:17] LABS: Hemoglobin 6.8 g/dL (14.0-18.0)
[2023-10-31] MEDS: FUROSEMIDE 80 MG TABLET PO (08:24)
[2023-10-31] MEDS: PANTOPRAZOLE SODIUM IV 40 MG VIAL IV PUSH ×2 (08:26→21:16)
[2023-10-31] MEDS: BUMETANIDE INJ 1 MG/4 ML VIAL IV PUSH (08:27)
--- NOTE | 2023-10-31 09:32 | PM.PNNEP ---
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 AVF worked well last week (on 10/27 and 10/28); some issues noted on 10/31 HD tomorrow versus depending on outpatient dialysis schedule awaiting placement for outpatient dialysis to finalized (2) Acute upper GI bleed: Code(s): K92.2 - Gastrointestinal hemorrhage, unspecified Status: Acute Assessment and Plan: s/p EGD with findings of duodenal AVMs PRBC transfusion per protocol H/H slowly improving Gastroenterology following (3) Volume overload: Code(s): E87.70 - Fluid overload, unspecified Status: Acute Assessment and Plan: as suggested by admission CXR elevated BNP noted Echo results noted continue oral diuretics and ultrafiltration with HD (4) Hypertension: Qualifiers: Hypertension type: primary hypertension Qualified Code(s): I10 - Essential (primary) hypertension Code(s): I10 - Essential (primary) hypertension Status: Chronic Assessment and Plan: slow improvement noted consider adding low dose KERI-I or ARB follow trend of hemodynamics (5) Anemia: Code(s): D64.9 - Anemia, unspecified Status: Chronic Assessment and Plan: due to #2 and complicated by advanced CKD/ESRD suspect an element of uremic bleeding as well Epogen with HD follow H/H (6) Secondary hyperparathyroidism: Code(s): N25.81 - Secondary hyperparathyroidism of renal origin Status: Chronic Assessment and Plan: phosphorus in range by last check PTH and Vitamin D in range follow trend as an outpatient Will continue follow. Subjective Date/time seen: 10/31/23 09:32 Interval history: Follow-up for CKD stage V with transition to end stage renal disease now on hemodialysis. Tolerated dialysis treatment yesterday despite some issues with AVF cannulation; PRBC transfusion this AM due low H/H in comparison to yesterday; no apparent distress noted at the time of my visit. Exam Narrative: General: middle aged WD/WN male in NAD Heart: normal S1 and S2; no rub Lungs: clear to auscultation Abdomen: soft, nontender, nondistended, positive bowel sounds Extremities: no cyanosis or clubbing; trace edema Skin: warm and intact Objective Data Vital Signs Vital Signs: Vital Signs Temp Pulse Resp BP Pulse Ox O2 Flow Rate FiO2 10/31/23 05:15 99 F 100 20 153/74 H 100 10/30/23 21:10 99 F 50 L 20 149/65 H 99 10/30/23 16:33 98.2 F 93 16 162/75 H 100 10/30/23 16:25 64 159/83 H 10/30/23 16:00 66 150/83 H 10/30/23 15:45 65 170/80 H 10/30/23 15:30 64 159/82 H 10/30/23 15:15 64 164/84 H 10/30/23 15:00 65 161/82 H 10/30/23 14:45 65 162/82 H 10/30/23 14:30 67 151/85 H 10/30/23 14:15 70 136/84 10/30/23 14:00 65 159/75 H 10/30/23 13:53 70 145/85 H 10/30/23 13:43 98.2 F 64 18 141/78 H 100 10/30/23 13:43 0 0 Intake/Output Intake/Output: Intake & Output 10/28/23 10/29/23 10/30/23 10/31/23 23:59 23:59 23:59 23:59 Intake Total 5598 910 0238 790 Output Total 4100 1420 Balance -2753 880 854 790 Meds/Results Medications: Active Medications Generic Name Dose Route Start Last Admin Trade Name Gopal PRN Reason Stop Dose Admin Acetaminophen 650 mg 10/27/23 14:52 10/27/23 14:55 Acetaminophen 325 Mg Tablet PO 650 mg Q6H PRN Administration Mild Pain (1-3) or Fever Bumetanide 1 mg 10/25/23 17:00 10/31/23 08:27 Bumetanide Inj 1 Mg/4 Ml Vial IV PUSH 1 mg BID GIANNI Administration Furosemide 80 mg 10/28/23 17:00 01
--- NOTE | 2023-10-31 09:32 | P.PNNP_ITS ---
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 * AVF worked well last week (on 10/27 and 10/28); some issues noted on 10/31 * HD tomorrow versus depending on outpatient dialysis schedule * awaiting placement for outpatient dialysis to finalized (2) Acute upper GI bleed: Code(s): K92.2 - Gastrointestinal hemorrhage, unspecified Status: Acute Assessment and Plan: * s/p EGD with findings of duodenal AVMs * PRBC transfusion per protocol * H/H slowly improving * Gastroenterology following (3) Volume overload: Code(s): E87.70 - Fluid overload, unspecified Status: Acute Assessment and Plan: * as suggested by admission CXR * elevated BNP noted * Echo results noted * continue oral diuretics and ultrafiltration with HD (4) Hypertension: Qualifiers: Hypertension type: primary hypertension Qualified Code(s): I10 - Essential (primary) hypertension Code(s): I10 - Essential (primary) hypertension Status: Chronic Assessment and Plan: * slow improvement noted * consider adding low dose KERI-I or ARB * follow trend of hemodynamics (5) Anemia: Code(s): D64.9 - Anemia, unspecified Status: Chronic Assessment and Plan: * due to #2 and complicated by advanced CKD/ESRD * suspect an element of uremic bleeding as well * Epogen with HD * follow H/H (6) Secondary hyperparathyroidism: Code(s): N25.81 - Secondary hyperparathyroidism of renal origin Status: Chronic Assessment and Plan: * phosphorus in range by last check * PTH and Vitamin D in range * follow trend as an outpatient Will continue follow. Subjective Date/time seen: 10/31/23 09:32 Interval history: Follow-up for CKD stage V with transition to end stage renal disease now on hemodialysis. Tolerated dialysis treatment yesterday despite some issues with AVF cannulation; PRBC transfusion this AM due low H/H in comparison to yesterday; no apparent distress noted at the time of my visit. Exam Narrative: General: middle aged WD/WN male in NAD Heart: normal S1 and S2; no rub Lungs: clear to auscultation Abdomen: soft, nontender, nondistended, positive bowel sounds Extremities: no cyanosis or clubbing; trace edema Skin: warm and intact Objective Data Vital Signs Vital Signs: Vital Signs Temp Pulse Resp BP Pulse Ox O2 Flow Rate FiO2 10/31/23 05:15 99 F 100 20 153/74 H 100 10/30/23 21:10 99 F 50 L 20 149/65 H 99 10/30/23 16:33 98.2 F 93 16 162/75 H 100 10/30/23 16:25 64 159/83 H 10/30/23 16:00 66 150/83 H 10/30/23 15:45 65 170/80 H 10/30/23 15:30 64 159/82 H 10/30/23 15:15 64 164/84 H 10/30/23 15:00 65 161/82 H 10/30/23 14:45 65 162/82 H 10/30/23 14:30 67 151/85 H 10/30/23 14:15 70 136/84 10/30/23 14:00 65 159/75 H 10/30/23 13:53 70 145/85 H 10/30/23 13:43 98.2 F 64 18 141/78 H 100 0
[2023-10-31] MEDS: SODIUM CHLORIDE 0.9% IV 250 ML 30 ML IV CONT (10:25)
[2023-10-31] MEDS: FUROSEMIDE 20 MG TABLET PO (10:27)
--- NOTE | 2023-10-31 13:08 | PC.NURSE ---
On 10/31/23, the student, Zack Morgan, provided care and completed [facility] documentation on this patient. I have reviewed the student's documentation and agree with the findings.
--- NOTE | 2023-10-31 15:41 | PM.IMPN ---
Progress Note: A&P Assessment and Plan (1) Acute anemia: Code(s): D64.9 - Anemia, unspecified Status: Acute Assessment and Plan: Goal Hb >7; transfused today, 10/31/23 s/p 2U PRBC Monitor Hb (2) Elevated brain natriuretic peptide (BNP) level: Code(s): R79.89 - Other specified abnormal findings of blood chemistry Status: Acute (3) Acute kidney injury superimposed on CKD: Code(s): N17.9 - Acute kidney failure, unspecified; N18.9 - Chronic kidney disease, unspecified Status: Acute (4) Acute upper GI bleed: Code(s): K92.2 - Gastrointestinal hemorrhage, unspecified Status: Acute Assessment and Plan: Bleeding AVM on EGD Plan Upper GI bleed.?? Advance diet as tolerated GI consulted. 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 Continue to monitor levels and monitor EKG changes. EKG shows sinus bradycardia with first-degree AV block Continue to monitor H&H closely.? Monitor vital signs.? ESRD On dialysis Nephrology consulted Creatinine 5.4 Avoid nephrotoxic drugs. Furosemide twice a day PO BP meds on hold Avoid NSAIDs. D-dimer 2.12 CT chest negative for PE History of alcoholism counseling done 10/30/23: Goal Hb >7; will monitor tomorrow DVT prophylaxis.? SCD GI prophylaxis.? Protonix All records reviewed Discussed plan of care with the nursing staff and with the patient in detail.? Answered all questions and concerns from the patient.? All labs have been reviewed. Code status updated ?dictation may have been done utilizing a voice recognition system.? Attempts have been made to correct errors. However, there may be uncorrected grammatical, spelling, and recognition errors present. Subjective Date/time seen: 10/31/23 15:41 Interval history: Follow-up for CKD stage V with transition to end stage renal disease now on hemodialysis. Tolerated dialysis treatment yesterday despite some issues with AVF cannulation; PRBC transfusion this AM due low H/H in comparison to yesterday; no apparent distress noted at the time of my visit. He is s/p 2U PRBC since admission Review of Systems Review of Systems: All systems reviewed & are unremarkable except as noted in HPI and below Constitutional: Constitutional: Reports fatigue and Reports weakness Eyes: Eyes: Reports no additional eye complaints ENT: Reports system reviewed and no additional complaints, except as documented Cardiovascular: Cardiovascular: Reports no additional cardiovascular complaints and Reports dyspnea Respiratory: Respiratory: Reports dyspnea Gastrointestinal: Gastrointestinal: Reports melena Musculoskeletal: Musculoskeletal: Reports no additional musculoskeletal complaints Neurologic: Reports system reviewed and no additional complaints, except as documented and Reports weakness Endocrine: Endocrine: Reports fatigue Exam Narrative: GENERAL: Well appearing, no acute distress. HEAD: Normocephalic, atraumatic. Conjunctiva is pale NECK: Supple. No adenopathy, no masses. RESPIRATORY: respirations nonlabored. , no rales, wheezing. CARDIOVASCULAR: Regular rate and rhythm without murmurs, . Peripheral pulses 2+ and equal bilaterally. ABDOMINAL: Soft, nontender, nondistended, no hepatosplenomegaly. Normoactive BS. MUSCULOSKELETAL: no Epigastric and no hypochondrial tenderness SKIN: Warm, dry, appears pale NEURO: A&O X3. Moves all extremities Objective Data Vital Signs Vital Signs: Vital Signs - 24 hr 10/30/23 15:45 10/30/23 16:00 10/30/23 16:25 Temperature Pulse Rate 65 66 64 Respiratory Rate Blood Pressure 170/80 H 150/83 H 159/83 H Pulse Oximetry Oxygen Delivery 10/30/23 16:33 10/30/23 21:10 10/31/23 05:15 Temperature 98.2 F 99 F 99 F Pulse Rate 93 50 L 10
[2023-10-31] MEDS: BUMETANIDE 1 MG TABLET 2 MG PO (17:45)
[2023-10-31 19:59] LABS: Hematocrit 25.7 % (42.0-52.0); Hemoglobin 7.5 g/dL (14.0-18.0)
[2023-11-01 06:00] VITALS: BP 146/83; PULSE 77; RESP 20; TEMP 36.3; O2SAT 100
[2023-11-01 06:29] LABS: Basophils Percent Auto 0.5 % (0.2-1.2); Eosinophils Absolute Auto 0.6 K/mm3 (0-0.3); Eosinophils Percent Auto 6.5 % (0-4.4); Hematocrit 23.9 % (42.0-52.0); Hemoglobin 7.2 g/dL (14.0-18.0); Immature Granulocyte Absolute 0.03 K/mm3 (0.00-0.031); Immature Granulocyte Percent A 0.3 % (0-0.5); Lymphocytes Absolute Auto 0.86 K/mm3 (0.9-3.2); Lymphocytes Percent Auto 9.9 % (18.3-44.2); Mean Corpuscular HGB Conc 30.1 g/dl (32-36); Mean Corpuscular Volume 96.4 fl (80-100); Mean Platelet Volume 9.9 fl (7.4-10.4); Monocytes Absolute Auto 1.1 K/mm3 (0.1-0.6); Neutrophils Absolute Auto 6.1 K/mm3 (1.3-6.7); Neutrophils Percent Auto 69.8 % (45.5-73.1); Platelet Count Result 238 k/mm3 (150-375); Red Blood Count 2.48 M/mm3 (4.6-6.20); Red Cell Distribution Width 15.4 % (11.5-14.5); White Blood Count 8.7 K/mm3 (4.5-10.0)
[2023-11-01 06:38] LABS: Alanine Aminotransferase 15 U/L (6-50); Albumin Level 3.3 g/dL (3.5-5.1); Alkaline Phosphatase 73 U/L (38-126); Anion Gap 9 mmol/L (8-16); Aspartate Amino Transferase 16 U/L (17-59); Bilirubin,Total 0.4 mg/dL (0.2-1.3); Blood Urea Nitrogen 46 mg/dL (9-20); Calcium 9.1 mg/dL (8.4-10.2); Carbon Dioxide 23 mmol/L (22-30); Chloride 103 mmol/L (98-107); Estimated CRCL calculation 11 ml/min; Estimated Glomerular Filt Rate 8; Glucose 96 mg/dL (65-110); Sodium 135 mmol/L (137-145)
[2023-11-01] MEDS: BUMETANIDE 1 MG TABLET 2 MG PO ×2 (09:14→18:04)
[2023-11-01] MEDS: PANTOPRAZOLE SODIUM IV 40 MG VIAL IV PUSH ×2 (09:15→20:32)
--- NOTE | 2023-11-01 10:23 | PCNFU ---
Nutrition Follow-Up Complete: Altered nutrition related labs related to ESRD as evidenced by BUN of 73, Cr: 8.4 Goal: improved renal labs Po intake 75% of meals with tolerance - Goal being met Nepro shakes as needed Pt current nutrition is Renal diet. Nepro BID for additional 350 kcal and 19 g protein each. Nutrition recommendation: Continue with current diet orders and nutrition care plan. Agree with orders. Last recorded weight is 82.9 kg. Down from 92.1 kg 10/26/23, likely due to fluid shifts Bowel Motility: Last BM 10/29/23 Labs Reviewed: Hgb 7.2, Hct 23.9, Alb 3.3, Na 135, GFR 8, BUN 46, Cre 7.0 Meds Noted: Bumex Skin: WNL Additional Notes: Intakes 90-100% on renal diet. Cre improving from 8.4 to 7.0. No changes to nutrition care plan. Agree with orders Monitor diet orders, intake, wt, labs. Follow up in 5 days.
--- NOTE | 2023-11-01 12:54 | PM.PNNEP ---
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 AVF worked well last week (on 10/27 and 10/28); some issues noted on 10/30 HD tomorrow since outpatient dialysis schedule reportedly T/T/S awaiting placement for outpatient dialysis to be finalized (2) Acute upper GI bleed: Code(s): K92.2 - Gastrointestinal hemorrhage, unspecified Status: Acute Assessment and Plan: s/p EGD with findings of duodenal AVMs PRBC transfusion per protocol H/H slowly improving Gastroenterology following (3) Volume overload: Code(s): E87.70 - Fluid overload, unspecified Status: Acute Assessment and Plan: as suggested by admission CXR elevated BNP noted Echo results noted continue oral diuretics and ultrafiltration with HD (4) Hypertension: Qualifiers: Hypertension type: primary hypertension Qualified Code(s): I10 - Essential (primary) hypertension Code(s): I10 - Essential (primary) hypertension Status: Chronic Assessment and Plan: slow improvement noted consider adding low dose KERI-I or ARB follow trend of hemodynamics (5) Anemia: Code(s): D64.9 - Anemia, unspecified Status: Chronic Assessment and Plan: due to #2 and complicated by advanced CKD/ESRD suspect an element of uremic bleeding as well Epogen with HD follow H/H (6) Secondary hyperparathyroidism: Code(s): N25.81 - Secondary hyperparathyroidism of renal origin Status: Chronic Assessment and Plan: phosphorus in range by last check PTH and Vitamin D in range follow trend as an outpatient Will continue follow. Subjective Date/time seen: 11/01/23 12:54 Interval history: Follow-up for CKD stage V with transition to end stage renal disease now on hemodialysis. Tolerated PRBC transfusion yesterday with appropriate incrementation in H/H; no apparent distress noted at this time; no issues/events overnight or earlier this morning. Exam Narrative: General: middle aged WD/WN male in NAD Heart: normal S1 and S2; no rub Lungs: clear to auscultation Abdomen: soft, nontender, nondistended, positive bowel sounds Extremities: no cyanosis or clubbing; trace edema Skin: no rash Objective Data Vital Signs Vital Signs: Vital Signs Temp Pulse Resp BP Pulse Ox O2 Del Method FiO2 11/01/23 12:00 97.6 F 76 20 149/86 H 100 11/01/23 08:00 Room Air 0 11/01/23 06:00 97.4 F L 77 20 146/83 H 100 10/31/23 21:42 97.6 F 95 19 158/74 H 91 Intake/Output Intake/Output: Intake & Output 10/29/23 10/30/23 10/31/23 11/01/23 23:59 23:59 23:59 23:59 Intake Total 880 2274 2290 1180 Output Total 1420 500 Balance 852 062 4592 1180 Meds/Results Medications: Active Medications Generic Name Dose Route Start Last Admin Trade Name Freq PRN Reason Stop Dose Admin Acetaminophen 650 mg 10/27/23 14:52 10/27/23 14:55 Acetaminophen 325 Mg Tablet PO 650 mg Q6H PRN Administration Mild Pain (1-3) or Fever Bumetanide 2 mg 10/31/23 17:00 11/01/23 09:14 Bumetanide 1 Mg Tablet PO 2 mg BID GIANNI Administration Hydralazine HCl 10 mg 10/25/23 16:47 10/28/23 05:28 Hydralazine Hcl 20 Mg/Ml Vial IV PUSH 10 mg Q8H PRN Administration Blood Pressure - High Albumin Human 50 mls @ 999 mls/hr 10/27/23 04:39 Albutein IVPB 11/26/23 04:38 Q10M PRN HYPOTENSION Pantoprazole Sodium 40 mg 10/26/23 21:00 11/01/23 09:15 Pantoprazole Sodium Iv 40 Mg Vial IV PUSH 40 mg Q12HR GIANNI Administration Radiology Results: ITS Impressions Venous Doppler Study 10/25/23 14:20 IMPRESSION: 1
--- NOTE | 2023-11-01 12:54 | P.PNNP_ITS ---
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 for initiation of BUNG REMOVER/dialysis * AVF worked well last week (on 10/27 and 10/28); some issues noted on 10/30 * HD tomorrow since outpatient dialysis schedule reportedly T/T/S * awaiting placement for outpatient dialysis to be finalized (2) Acute upper GI bleed: Code(s): K92.2 - Gastrointestinal hemorrhage, unspecified Status: Acute Assessment and Plan: * s/p EGD with findings of duodenal AVMs * PRBC transfusion per protocol * H/H slowly improving * Gastroenterology following (3) Volume overload: Code(s): E87.70 - Fluid overload, unspecified Status: Acute Assessment and Plan: * as suggested by admission CXR * elevated BNP noted * Echo results noted * continue oral diuretics and ultrafiltration with HD (4) Hypertension: Qualifiers: Hypertension type: primary hypertension Qualified Code(s): I10 - Ess ential (primary) hypertension Code(s): I10 - Essential (primary) hypertension Status: Chronic Assessment and Plan: * slow improvement noted * consider adding low dose KERI-I or ARB * follow trend of hemodynamics (5) Anemia: Code(s): D64.9 - Anemia, unspecified Status: Chronic Assessment and Plan: * due to #2 and complicated by advanced CKD/ESRD * suspect an element of uremic bleeding as well * Epogen with HD * follow H/H (6) Secondary hyperparathyroidism: Code(s): N25.81 - Secondary hyperparathyroidism of renal origin Status: Chronic Assessment and Plan: * phosphorus in range by last check * PTH and Vitamin D in range * follow trend as an outpatient Will continue follow. Subjective Date/time seen: 11/01/23 12:54 Interval history: Follow-up for CKD stage V with transition to end stage renal disease now on hemodialysis. Tolerated PRBC transfusion yesterday with appropriate incrementation in H/H; no apparent distress noted at this time; no issues/events overnight or earlier this morning. Exam Narrative: General: middle aged WD/WN male in NAD Heart: normal S1 and S2; no rub Lungs: clear to auscultation Abdomen: soft, nontender, nondistended, positive bowel sounds Extremities: no cyanosis or clubbing; trace edema Skin: no rash Objective Data Vital Signs Vital Signs: Vital Signs Temp Pulse Resp BP Pulse Ox O2 Del Method FiO2 11/01/23 12:00 97.6 F 76 20 149/86 H 100 11/01/23 08:00 Room Air 0 11/01/23 06:00 97.4 F L 77 20 146/83 H 100 10/31/23 21:42 97.6 F 95 19 158/74 H 91 Intake/Output Intake/Output: Intake & Output 10/29/23 10/30/23 10/31/23 11/01/23 23:59 23:59 23:59 23:59 Intake Total 880 2274 2290 1180 Output Total 1420 500 Balance 734 831 2297 1180 Meds/Results Medications: Active Medications Generic Name Dose Route Start Last Admin Trade Name Freq PRN Reason Stop Dose Admin Acetaminop
[2023-11-01 14:00] VITALS: BP 149/86; PULSE 76; RESP 20; TEMP 36.4; O2SAT 100
--- NOTE | 2023-11-01 17:42 | PM.IMPN ---
Progress Note: A&P Assessment and Plan (1) Acute anemia: Code(s): D64.9 - Anemia, unspecified Status: Acute Assessment and Plan: Goal Hb >7; transfused today, 10/31/23 s/p 2U PRBC Monitor Hb Will DC tomorrow if stable (2) Elevated brain natriuretic peptide (BNP) level: Code(s): R79.89 - Other specified abnormal findings of blood chemistry Status: Acute (3) Acute kidney injury superimposed on CKD: Code(s): N17.9 - Acute kidney failure, unspecified; N18.9 - Chronic kidney disease, unspecified Status: Acute Assessment and Plan: Slated for HD tomorrow (4) Acute upper GI bleed: Code(s): K92.2 - Gastrointestinal hemorrhage, unspecified Status: Acute Assessment and Plan: Bleeding AVM on EGD Plan Upper GI bleed.?? Advance diet as tolerated GI consulted. 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 Continue to monitor levels and monitor EKG changes. EKG shows sinus bradycardia with first-degree AV block Continue to monitor H&H closely.? Monitor vital signs.? ESRD On dialysis Nephrology consulted Creatinine 5.4 Avoid nephrotoxic drugs. Furosemide twice a day PO BP meds on hold Avoid NSAIDs. D-dimer 2.12 CT chest negative for PE History of alcoholism counseling done 10/30/23: Goal Hb >7; will monitor tomorrow DVT prophylaxis.? SCD GI prophylaxis.? Protonix All records reviewed Discussed plan of care with the nursing staff and with the patient in detail.? Answered all questions and concerns from the patient.? All labs have been reviewed. Code status updated ?dictation may have been done utilizing a voice recognition system.? Attempts have been made to correct errors. However, there may be uncorrected grammatical, spelling, and recognition errors present. Time Spent With Patient Time with patient: 25 - 35 minutes Subjective Date/time seen: 11/01/23 17:42 Interval history: Follow-up for CKD stage V with transition to end stage renal disease now on hemodialysis. s/p 2U PRBC Review of Systems Review of Systems: All systems reviewed & are unremarkable except as noted in HPI and below Constitutional: Constitutional: Reports fatigue and Reports weakness Eyes: Eyes: Reports no additional eye complaints ENT: Reports system reviewed and no additional complaints, except as documented Cardiovascular: Cardiovascular: Reports no additional cardiovascular complaints and Reports dyspnea Respiratory: Respiratory: Reports dyspnea Gastrointestinal: Gastrointestinal: Reports melena Musculoskeletal: Musculoskeletal: Reports no additional musculoskeletal complaints Neurologic: Reports system reviewed and no additional complaints, except as documented and Reports weakness Endocrine: Endocrine: Reports fatigue Exam Narrative: GENERAL: Well appearing, no acute distress. HEAD: Normocephalic, atraumatic. Conjunctiva is pale NECK: Supple. No adenopathy, no masses. RESPIRATORY: respirations nonlabored. , no rales, wheezing. CARDIOVASCULAR: Regular rate and rhythm without murmurs, . Peripheral pulses 2+ and equal bilaterally. ABDOMINAL: Soft, nontender, nondistended, no hepatosplenomegaly. Normoactive BS. MUSCULOSKELETAL: no Epigastric and no hypochondrial tenderness SKIN: Warm, dry, appears pale NEURO: A&O X3. Moves all extremities Objective Data Vital Signs Vital Signs: Vital Signs - 24 hr 10/31/23 21:42 11/01/23 06:00 11/01/23 08:00 Temperature 97.6 F 97.4 F L Pulse Rate 95 77 Respiratory Rate 19 20 Blood Pressure 158/74 H 146/83 H Pulse Oximetry 91 100 Oxygen Delivery Room Air Fraction of Inspired Oxygen 0 11/01/23 14:00 Temperature 97.6 F Pulse Rate 76 Respiratory Rate 20 Blood Pressure 149/86 H Pulse Oximetry 100 Oxyge
[2023-11-01 19:38] VITALS: O2SAT 100
[2023-11-01 20:52] LABS: Hematocrit 25.6 % (42.0-52.0); Hemoglobin 7.3 g/dL (14.0-18.0)
[2023-11-01 21:01] VITALS: BP 155/72; PULSE 76; RESP 20; TEMP 37.1; O2SAT 98
[2023-11-02] VITALS (21 sets, daily range): BP systolic 123–158; BP diastolic 68–96; PULSE 20–84; RESP 13–20; TEMP 36.8–38.3; O2SAT 97–100
[2023-11-02 07:04] LABS: Basophils Percent Auto 0.5 % (0.2-1.2); Eosinophils Absolute Auto 0.7 K/mm3 (0-0.3); Eosinophils Percent Auto 8.2 % (0-4.4); Hematocrit 23.6 % (42.0-52.0); Hemoglobin 7.1 g/dL (14.0-18.0); Immature Granulocyte Absolute 0.03 K/mm3 (0.00-0.031); Immature Granulocyte Percent A 0.4 % (0-0.5); Lymphocytes Absolute Auto 0.86 K/mm3 (0.9-3.2); Lymphocytes Percent Auto 10.8 % (18.3-44.2); Mean Corpuscular HGB Conc 30.1 g/dl (32-36); Mean Corpuscular Hemoglobin 28.7 pg (26-34); Mean Corpuscular Volume 95.5 fl (80-100); Monocytes Absolute Auto 0.9 K/mm3 (0.1-0.6); Monocytes Percent Auto 11.6 % (2.6-8.5); Neutrophils Absolute Auto 5.5 K/mm3 (1.3-6.7); Neutrophils Percent Auto 68.5 % (45.5-73.1); Platelet Count Result 255 k/mm3 (150-375); Red Blood Count 2.47 M/mm3 (4.6-6.20)
[2023-11-02 07:16] LABS: Alanine Aminotransferase 13 U/L (6-50); Albumin Level 3.3 g/dL (3.5-5.1); Alkaline Phosphatase 69 U/L (38-126); Anion Gap 11 mmol/L (8-16); Aspartate Amino Transferase 14 U/L (17-59); Bilirubin,Total 0.3 mg/dL (0.2-1.3); Blood Urea Nitrogen 54 mg/dL (9-20); Calcium 9.1 mg/dL (8.4-10.2); Carbon Dioxide 22 mmol/L (22-30); Chloride 100 mmol/L (98-107); Estimated CRCL calculation 10 ml/min; Estimated Glomerular Filt Rate 7; Glucose 101 mg/dL (65-110); Sodium 133 mmol/L (137-145)
[2023-11-02] MEDS: EPOETIN ALFA-EPBX 10,000 UNITS/ML VIAL 10000 UNITS IV PUSH (11:02)
--- NOTE | 2023-11-02 11:48 | P.PNNP_ITS ---
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 * HD today since outpatient dialysis schedule reportedly T/T/S * awaiting placement for outpatient dialysis to be finalized (2) Acute upper GI bleed: Code(s): K92.2 - Gastrointestinal hemorrhage, unspecified Status: Acute Assessment and Plan: * s/p EGD with findings of duodenal AVMs * PRBC transfusion per protocol * H/H slowly improving * Gastroenterology following (3) Volume overload: Code(s): E87.70 - Fluid overload, unspecified Status: Acute Assessment and Plan: * as suggested by admission CXR * elevated BNP noted * Echo results noted * continue oral diuretics and ultrafiltration with HD (4) Hypertension: Qualifiers: Hypertension type: primary hypertension Qualified Code(s): I10 - Essential (primary) hypertension Code(s): I10 - Essential (primary) hypertension Status: Chronic Assessment and Plan: * slow improvement noted * start low dose lisnopril and titrate * follow trend of hemodynamics (5) Anemia: Code(s): D64.9 - Anemia, unspecified Status: Chronic Assessment and Plan: * due to #2 and complicated by advanced CKD/ESRD * suspect an element of uremic bleeding as well * Epogen with HD * follow H/H (6) Secondary hyperparathyroidism: Code(s): N25.81 - Secondary hyperparathyroidism of renal origin Status: Chronic Assessment and Plan: * phosphorus in range by last check * PTH and Vitamin D in range * follow trend as an outpatient Will continue follow. Subjective Date/time seen: 11/02/23 11:48 Interval history: Follow-up for CKD stage V with transition to end stage renal disease now on hemodialysis. Just about to finish up dialysis treatment today (seen on hd at 11:38AM); PRBC transfusion with dialysis today; overall, seems to be feeling better in general; no apparent distress noted; no issues/events overnight or earlier today. Exam Narrative: General: middle aged WD/WN male in NAD Heart: normal S1 and S2; no rub Lungs: clear to auscultation Abdomen: soft, nontender, nondistended, positive bowel sounds Extremities: no cyanosis or clubbing; trace edema Skin: no nodules Objective Data Vital Signs Vital Signs: Vital Signs Temp Pulse Resp BP Pulse Ox O2 Del Method FiO2 11/02/23 11:00 83 153/74 H 11/02/23 10:46 64 157/83 H 11/02/23 10:30 77 151/96 H 11/02/23 10:15 77 144/83 H 11/02/23 10:00 78 123/71 11/02/23 09:45 70 144/89 H 11/02/23 09:30 83 143/74 H 11/02/23 09:15 73 128/73 11/02/23 08:45 75 141/81 H 11/02/23 08:00 Room Air 11/02/23 09:00 76 137/81 11/02/23 08:42 67 137/76 11/02/23 08:27 98.2 F 70 16 144/80 H 98 11/02/23 08:27 98 11/02/23 08:58 98.2 F 70 16 144/80 H 98 11/02/23 06:00 101 F H 20 L 20 157/71 H 97 11/01/23 21:01 98.8 F 76 20 155/72
--- NOTE | 2023-11-02 11:48 | PM.PNNEP ---
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 HD today since outpatient dialysis schedule reportedly T/T/S awaiting placement for outpatient dialysis to be finalized (2) Acute upper GI bleed: Code(s): K92.2 - Gastrointestinal hemorrhage, unspecified Status: Acute Assessment and Plan: s/p EGD with findings of duodenal AVMs PRBC transfusion per protocol H/H slowly improving Gastroenterology following (3) Volume overload: Code(s): E87.70 - Fluid overload, unspecified Status: Acute Assessment and Plan: as suggested by admission CXR elevated BNP noted Echo results noted continue oral diuretics and ultrafiltration with HD (4) Hypertension: Qualifiers: Hypertension type: primary hypertension Qualified Code(s): I10 - Essential (primary) hypertension Code(s): I10 - Essential (primary) hypertension Status: Chronic Assessment and Plan: slow improvement noted start low dose lisnopril and titrate follow trend of hemodynamics (5) Anemia: Code(s): D64.9 - Anemia, unspecified Status: Chronic Assessment and Plan: due to #2 and complicated by advanced CKD/ESRD suspect an element of uremic bleeding as well Epogen with HD follow H/H (6) Secondary hyperparathyroidism: Code(s): N25.81 - Secondary hyperparathyroidism of renal origin Status: Chronic Assessment and Plan: phosphorus in range by last check PTH and Vitamin D in range follow trend as an outpatient Will continue follow. Subjective Date/time seen: 11/02/23 11:48 Interval history: Follow-up for CKD stage V with transition to end stage renal disease now on hemodialysis. Just about to finish up dialysis treatment today (seen on hd at 11:38AM); PRBC transfusion with dialysis today; overall, seems to be feeling better in general; no apparent distress noted; no issues/events overnight or earlier today. Exam Narrative: General: middle aged WD/WN male in NAD Heart: normal S1 and S2; no rub Lungs: clear to auscultation Abdomen: soft, nontender, nondistended, positive bowel sounds Extremities: no cyanosis or clubbing; trace edema Skin: no nodules Objective Data Vital Signs Vital Signs: Vital Signs Temp Pulse Resp BP Pulse Ox O2 Del Method FiO2 11/02/23 11:00 83 153/74 H 11/02/23 10:46 64 157/83 H 11/02/23 10:30 77 151/96 H 11/02/23 10:15 77 144/83 H 11/02/23 10:00 78 123/71 11/02/23 09:45 70 144/89 H 11/02/23 09:30 83 143/74 H 11/02/23 09:15 73 128/73 11/02/23 08:45 75 141/81 H 11/02/23 08:00 Room Air 11/02/23 09:00 76 137/81 11/02/23 08:42 67 137/76 11/02/23 08:27 98.2 F 70 16 144/80 H 98 11/02/23 08:27 98 11/02/23 08:58 98.2 F 70 16 144/80 H 98 11/02/23 06:00 101 F H 20 L 20 157/71 H 97 11/01/23 21:01 98.8 F 76 20 155/72 H 98 11/01/23 19:38 100 Room Air 0 11/01/23 14:00 97.6 F 76 20 149/86 H 100 Intake/Output Intake/Output: Intake & Output 10/30/23 10/31/23 11/01/23 11/02/23 23:59 23:59 23:59 23:59 Intake Total 2274 2290 2019 174 Output Total 1420 500 Balance 854 1790 2019 1740 Meds/Results Medications: Active Medications Generic Name Dose Route Start Last Admin Trade Name Freq PRN Reason Stop Dose Admin Acetaminophen 650 mg 10/27/23 14:52 10/27/23 14:55 Acetaminophen 325 Mg Tablet PO 650 mg Q6H PRN Administration Mild Pain (1-3) or Fever Bumetanide 2 mg 10/31/23 17:00 11/01/23 18:04 Bumetanide 1 Mg Tablet PO 2 mg BID GIANNI
--- NOTE | 2023-11-02 12:19 | PC.NURSE ---
0827 patient left for dialysis, received 1 unit PRBC while in dialysis, 2 L were removed during HD. patient stated he feels better. denies pain or sob.
[2023-11-02 12:33] LABS: Hematocrit 29.4 % (42.0-52.0); Hemoglobin 9.1 g/dL (14.0-18.0)
--- NOTE | 2023-11-02 14:10 | PM.DS ---
DS: Discharge Diagnosis Discharge Diagnosis (1) Acute anemia: Code(s): D64.9 - Anemia, unspecified Status: Acute Assessment and Plan: Goal Hb >7; transfused today, 10/31/23 s/p 2U PRBC Monitor Hb Will DC tomorrow if stable (2) Elevated brain natriuretic peptide (BNP) level: Code(s): R79.89 - Other specified abnormal findings of blood chemistry Status: Acute (3) Acute kidney injury superimposed on CKD: Code(s): N17.9 - Acute kidney failure, unspecified; N18.9 - Chronic kidney disease, unspecified Status: Acute Assessment and Plan: Slated for HD tomorrow (4) Acute upper GI bleed: Code(s): K92.2 - Gastrointestinal hemorrhage, unspecified Status: Acute Assessment and Plan: Bleeding AVM on EGD Plan Upper GI bleed.?? Advance diet as tolerated GI consulted. 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 Continue to monitor levels and monitor EKG changes. EKG shows sinus bradycardia with first-degree AV block Continue to monitor H&H closely.? Monitor vital signs.? ESRD On dialysis Nephrology consulted Creatinine 5.4 Avoid nephrotoxic drugs. Furosemide twice a day PO BP meds on hold Avoid NSAIDs. D-dimer 2.12 CT chest negative for PE History of alcoholism counseling done 10/30/23: Goal Hb >7; will monitor tomorrow DVT prophylaxis.? SCD GI prophylaxis.? Protonix All records reviewed Discussed plan of care with the nursing staff and with the patient in detail.? Answered all questions and concerns from the patient.? All labs have been reviewed. Code status updated ?dictation may have been done utilizing a voice recognition system.? Attempts have been made to correct errors. However, there may be uncorrected grammatical, spelling, and recognition errors present. DS: Summary Time Spent with Patient Time attestation: Total time spent providing and/or coordinating discharge services: Exam Narrative: GENERAL: Well appearing, no acute distress. HEAD: Normocephalic, atraumatic. Conjunctiva is pale NECK: Supple. No adenopathy, no masses. RESPIRATORY: respirations nonlabored. , no rales, wheezing. CARDIOVASCULAR: Regular rate and rhythm without murmurs, . Peripheral pulses 2+ and equal bilaterally. ABDOMINAL: Soft, nontender, nondistended, no hepatosplenomegaly. Normoactive BS. MUSCULOSKELETAL: no Epigastric and no hypochondrial tenderness SKIN: Warm, dry, appears pale NEURO: A&O X3. Moves all extremities DS: Data Data Completed and Pending Labs on day of discharge: Labs from last 24 hours 11/02/23 11/02/23 11/01/23 12:28 06:32 20:38 WBC 8.0 RBC 2.47 L Hgb 9.1 L 7.1 L 7.3 L Hct 29.4 L 23.6 L 25.6 L MCV 95.5 MCH 28.7 MCHC 30.1 L RDW 15.0 H Plt Count 255 MPV 10.0 Immature Gran % (Auto) 0.4 Neut % (Auto) 68.5 Lymph % (Auto) 10.8 L [place] % (Auto) 11.6 H Eos % (Auto) 8.2 H Baso % (Auto) 0.5 Lymph # (Auto) 0.86 L [place] # (Auto) 0.9 H Eos # (Auto) 0.7 H Baso # (Auto) 0.0 Abs Immat Gran (auto) 0.03 Absolute Neuts (auto) 5.5 Absolute Nucleated RBC 0.0 Nucleated RBC % 0.0 Sodium 133 L Potassium 4.0 Chloride 100 Carbon Dioxide 22 Anion Gap 11 BUN 54 H Creatinine 8.10 H Estim Creat Clear Calc 10 Estimated GFR 7 L Glucose 101 Calcium 9.1 Total Bilirubin 0.3 AST 14 L ALT 13 Alkaline Phosphatase 69 Total Protein 6.0 L Albumin 3.3 L Blood Type Antibody Screen Crossmatch 10/31/23 08:00 WBC RBC Hgb Hct MCV MCH MCHC RDW Plt Count MPV Immature Gran % (Auto) Neut % (Auto) Lymph % (Auto) [place] % (Auto) Eos % (Auto) Baso % (Auto) Lymph # (Auto) [place] # (Auto) Eos # (Auto) Baso #
--- NOTE | 2023-11-02 14:15 | PM.IMPN ---
Progress Note: A&P Assessment and Plan (1) Acute anemia: Code(s): D64.9 - Anemia, unspecified Status: Acute (2) Elevated brain natriuretic peptide (BNP) level: Code(s): R79.89 - Other specified abnormal findings of blood chemistry Status: Acute (3) Acute kidney injury superimposed on CKD: Code(s): N17.9 - Acute kidney failure, unspecified; N18.9 - Chronic kidney disease, unspecified Status: Acute (4) Acute upper GI bleed: Code(s): K92.2 - Gastrointestinal hemorrhage, unspecified Status: Acute Plan Patient is a 62-year-old male with a history of end-stage renal disease on dialysis comes to hospital complaining of shortness of breath and tardy stools.? Patient states that he started noticing dark stool about 2 weeks ago progressively getting worse.? Patient started feeling more tired and fatigued unable to walk more than 100 yd.? Patient also noticed some dry cough which was nonproductive.? Patient was not recorded as being positive for COVID 19 virus 3 weeks ago.? He can still continues to urinate but denies any chest pain no fever no chills no nasal congestion.? Patient only takes Tylenol has not taken any Advil but does take a baby aspirin.? Patient had a colonoscopy done about a year ago which was negative except few benign polyps.? The patient denies any history of any local injury no use of iron pills no diarrhea no vomiting Assessment and Plan (1) Acute anemia: ?Code(s): D64.9 - Anemia, unspecified ?Status:?Acute ?Assessment and Plan: Goal Hb >7; transfused today, 10/31/23 s/p 3U PRBC; goal Hb >7 (2) Elevated brain natriuretic peptide (BNP) level: ?Code(s): R79.89 - Other specified abnormal findings of blood chemistry ?Status:?Acute 11/02/23: Probably 2/2 fluid overload; on HD sessions (3) Acute kidney injury superimposed on CKD: ?Code(s): N17.9 - Acute kidney failure, unspecified; N18.9 - Chronic kidney disease, unspecified ?Status:?Acute ?Assessment and Plan: Slated for HD; 11/02/23: Will remain till 11/04/23 because he will not be dialyzed out there till Monday (4) Acute upper GI bleed: ?Code(s): K92.2 - Gastrointestinal hemorrhage, unspecified ?Status:?Acute ?Assessment and Plan: Bleeding AVM on EGD 11/02/23: Holding Aspirin; continue PPI Plan Upper GI bleed.?? Advance diet as tolerated GI consulted.? 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 Will get a dose of Epogen today 2D echo EF of 60% Positive troponin due to demand ischemia.? Continue to monitor levels and monitor EKG changes. EKG shows sinus bradycardia with first-degree AV block Continue to monitor H&H closely.? Monitor vital signs.? ESRD On dialysis Nephrology consulted Creatinine 5.4 Avoid nephrotoxic drugs. Furosemide twice a day PO BP meds on hold Avoid NSAIDs. D-dimer 2.12 CT chest negative for PE History of alcoholism counseling done 10/30/23: Goal Hb >7; will monitor tomorrow 11/02/23: Transfused 1U PRBC today; 3U since admission DVT prophylaxis.? SCD GI prophylaxis.? Protonix Code status updated Time Spent With Patient Time with patient: 25 - 35 minutes Subjective Date/time seen: 11/02/23 14:15 Interval history: Follow-up for CKD stage V with transition to end stage renal disease now on hemodialysis. Tolerated PRBC transfusion yesterday with appropriate incrementation in H/H; no apparent distress noted at this time; no issues/events overnight or earlier this morning. Review of Systems Review of Systems: All systems reviewed & are unremarkable except as noted in HPI and below Constitutional: Constitutional: Reports fatigue and Reports weakness Eyes: Eyes: Reports no additional eye complaints ENT: Reports system reviewed and no additional complaints, except as documented Cardiovascular: Cardiovascular: Reports no additiona
[2023-11-02] MEDS: BUMETANIDE 1 MG TABLET 2 MG PO (17:55)
[2023-11-02] MEDS: PANTOPRAZOLE SODIUM IV 40 MG VIAL IV PUSH (20:01)
[2023-11-03 06:00] VITALS: BP 163/83; PULSE 72; RESP 12; TEMP 36.1; O2SAT 100
[2023-11-03 06:42] LABS: Basophils Absolute Auto 0.1 K/mm3 (0.0-0.1); Basophils Percent Auto 0.6 % (0.2-1.2); Eosinophils Absolute Auto 0.6 K/mm3 (0-0.3); Hematocrit 28.2 % (42.0-52.0); Hemoglobin 8.5 g/dL (14.0-18.0); Immature Granulocyte Absolute 0.02 K/mm3 (0.00-0.031); Immature Granulocyte Percent A 0.2 % (0-0.5); Lymphocytes Percent Auto 11.7 % (18.3-44.2); Mean Corpuscular HGB Conc 30.1 g/dl (32-36); Mean Corpuscular Hemoglobin 28.3 pg (26-34); Mean Platelet Volume 10.3 fl (7.4-10.4); Monocytes Absolute Auto 1.1 K/mm3 (0.1-0.6); Monocytes Percent Auto 12.7 % (2.6-8.5); Neutrophils Absolute Auto 5.8 K/mm3 (1.3-6.7); Neutrophils Percent Auto 67.8 % (45.5-73.1); Platelet Count Result 276 k/mm3 (150-375); Red Cell Distribution Width 14.8 % (11.5-14.5); White Blood Count 8.6 K/mm3 (4.5-10.0)
[2023-11-03 06:58] LABS: Alanine Aminotransferase 15 U/L (6-50); Albumin Level 3.7 g/dL (3.5-5.1); Alkaline Phosphatase 83 U/L (38-126); Anion Gap 13 mmol/L (8-16); Aspartate Amino Transferase 38 U/L (17-59); Bilirubin,Total 0.5 mg/dL (0.2-1.3); Blood Urea Nitrogen 47 mg/dL (9-20); Calcium 9.4 mg/dL (8.4-10.2); Carbon Dioxide 24 mmol/L (22-30); Chloride 97 mmol/L (98-107); Estimated CRCL calculation 12 ml/min; Estimated Glomerular Filt Rate 8; Glucose 105 mg/dL (65-110); Sodium 134 mmol/L (137-145)
[2023-11-03] MEDS: BUMETANIDE 1 MG TABLET 2 MG PO ×2 (08:38→17:00)
[2023-11-03] MEDS: PANTOPRAZOLE SODIUM IV 40 MG VIAL IV PUSH ×2 (08:38→20:08)
--- NOTE | 2023-11-03 10:23 | PM.PNNEP ---
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 since outpatient dialysis schedule reportedly T/T/S awaiting placement for outpatient dialysis to be finalized (2) Acute upper GI bleed: Code(s): K92.2 - Gastrointestinal hemorrhage, unspecified Status: Acute Assessment and Plan: s/p EGD with findings of duodenal AVMs PRBC transfusion per protocol H/H slowly improving Gastroenterology following (3) Volume overload: Code(s): E87.70 - Fluid overload, unspecified Status: Acute Assessment and Plan: as suggested by admission CXR elevated BNP noted Echo results noted continue oral diuretics and ultrafiltration with HD (4) Hypertension: Qualifiers: Hypertension type: primary hypertension Qualified Code(s): I10 - Essential (primary) hypertension Code(s): I10 - Essential (primary) hypertension Status: Chronic Assessment and Plan: slow improvement noted start low dose lisnopril and titrate follow trend of hemodynamics (5) Anemia: Code(s): D64.9 - Anemia, unspecified Status: Chronic Assessment and Plan: due to #2 and complicated by advanced CKD/ESRD suspect an element of uremic bleeding as well Epogen with HD follow H/H (6) Secondary hyperparathyroidism: Code(s): N25.81 - Secondary hyperparathyroidism of renal origin Status: Chronic Assessment and Plan: phosphorus in range by last check PTH and Vitamin D in range follow trend as an outpatient Not opposed to discharge after dialysis tomorrow if otherwise medically stable since outpatient HD schedule has apparently been finalized (T/T/S) with his first outpatient dialysis treatment on Monday next week. Will continue follow. Subjective Date/time seen: 11/03/23 10:23 Interval history: Follow-up for CKD stage V with transition to end stage renal disease now on hemodialysis. Tolerated dialysis treatment yesterday without any issues or problems; H/H holdingsteady since last PRBC transfusion; no apparent distress noted at the time of my visit. Exam Narrative: General: middle aged WD/WN male in NAD Heart: normal S1 and S2; no rub Lungs: clear to auscultation Abdomen: soft, nontender, nondistended, positive bowel sounds Extremities: no cyanosis or clubbing; trace edema Skin: warm and dry Objective Data Vital Signs Vital Signs: Vital Signs Temp Pulse Resp BP Pulse Ox O2 Del Method FiO2 11/03/23 08:00 Room Air 11/03/23 06:00 97.0 F L 72 12 163/83 H 100 11/02/23 21:45 99.4 F 77 13 149/71 H 97 11/02/23 19:29 78 20 100 Room Air 98 Intake/Output Intake/Output: Intake & Output 10/31/23 11/01/23 11/02/23 11/03/23 23:59 23:59 23:59 23:59 Intake Total 2292019 276 1150 Output Total 500 1999 Balance 1790 2019 767 1150 Meds/Results Medications: Active Medications Generic Name Dose Route Start Last Admin Trade Name Freq PRN Reason Stop Dose Admin Acetaminophen 650 mg 10/27/23 14:52 10/27/23 14:55 Acetaminophen 325 Mg Tablet PO 650 mg Q6H PRN Administration Mild Pain (1-3) or Fever Bumetanide 2 mg 10/31/23 17:00 11/03/23 08:38 Bumetanide 1 Mg Tablet PO 2 mg BID GIANNI Administration Hydralazine HCl 10 mg 10/25/23 16:47 10/28/23 05:28 Hydralazine Hcl 20 Mg/Ml Vial IV PUSH 10 mg Q8H PRN Administration Blood Pressure - High Albumin Human 50 mls @ 999 mls/hr 10/27/23 04:39 Albutein IVPB 11/26/23 04:38 Q10M PRN HYPOTENSION Pantoprazole Sodium 40 mg 10/26/23 21:00 11/03/23 08:38 Pantoprazole Sodium Iv 40 Mg Vial IV
--- NOTE | 2023-11-03 10:23 | P.PNNP_ITS ---
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 * HD tomorrow since outpatient dialysis schedule reportedly T/T/S * awaiting placement for outpatient dialysis to be finalized (2) Acute upper GI bleed: Code(s): K92.2 - Gastrointestinal hemorrhage, unspecified Status: Acute Assessment and Plan: * s/p EGD with findings of duodenal AVMs * PRBC transfusion per protocol * H/H slowly improving * Gastroenterology following (3) Volume overload: Code(s): E87.70 - Fluid overload, unspecified Status: Acute Assessment and Plan: * as suggested by admission CXR * elevated BNP noted * Echo results noted * continue oral diuretics and ultrafiltration with HD (4) Hypertension: Qualifiers: Hypertension type: primary hypertension Qualified Code(s): I10 - Essential (primary) hypertension Code(s): I10 - Essential (primary) hypertension Status: Chronic Assessment and Plan: * slow improvement noted * start low dose lisnopril and titrate * follow trend of hemodynamics (5) Anemia: Code(s): D64.9 - Anemia, unspecified Status: Chronic Assessment and Plan: * due to #2 and complicated by advanced CKD/ESRD * suspect an element of uremic bleeding as well * Epogen with HD * follow H/H (6) Secondary hyperparathyroidism: Code(s): N25.81 - Secondary hyperparathyroidism of renal origin Status: Chronic Assessment and Plan: * phosphorus in range by last check * PTH and Vitamin D in range * follow trend as an outpatient Not opposed to discharge after dialysis tomorrow if otherwise medically stable since outpatient HD schedule has apparently been finalized (T/T/S) with his first outpatient dialysis treatment on Monday next week. Will continue follow. Subjective Date/time seen: 11/03/23 10:23 Interval history: Follow-up for CKD stage V with transition to end stage renal disease now on hemodialysis. Tolerated dialysis treatment yesterday without any issues or problems; H/H holdingsteady since last PRBC transfusion; no apparent distress noted at the time of my visit. Exam Narrative: General: middle aged WD/WN male in NAD Heart: normal S1 and S2; no rub Lungs: clear to auscultation Abdomen: soft, nontender, nondistended, positive bowel sounds Extremities: no cyanosis or clubbing; trace edema Skin: warm and dry Objective Data Vital Signs Vital Signs: Vital Signs Temp Pulse Resp BP Pulse Ox O2 Del Method FiO2 11/03/23 08:00 Room Air 11/03/23 06:00 97.0 F L 72 12 163/83 H 100 11/02/23 21:45 99.4 F 77 13 149/71 H 97 11/02/23 19:29 78 20 100 Room Air 98 Intake/Output Intake/Output: Intake & Output 10/31/23 11/01/23 11/02/23 11/03/23 23:59 23:59 23:59 23:59 Intake Total 2290 2019 2767 1150 Output Total 500 1999 Balance 1790 2020 767 1150 Meds/Results Medications: Active M
--- NOTE | 2023-11-03 12:39 | PM.IMPN ---
Progress Note: A&P Assessment and Plan (1) Acute anemia: Code(s): D64.9 - Anemia, unspecified Status: Acute Assessment and Plan: s/p 3U PRBC since admission; Hb is holding appropraitely at 8.5 today. He is being held due to HD session TTS; and won't be able to get dialysis till Monday next week. So plans are to dialyze on monday then DC. (2) Elevated brain natriuretic peptide (BNP) level: Code(s): R79.89 - Other specified abnormal findings of blood chemistry Status: Acute Assessment and Plan: Likely 2/2 fluid overload; on HD (3) Acute kidney injury superimposed on CKD: Code(s): N17.9 - Acute kidney failure, unspecified; N18.9 - Chronic kidney disease, unspecified Status: Acute Assessment and Plan: HD on Monday; on a TTS schedule (4) Acute upper GI bleed: Code(s): K92.2 - Gastrointestinal hemorrhage, unspecified Status: Acute Assessment and Plan: s/p 3U PRBC since admission; Hb is holding appropraitely at 8.5 today. He is being held due to HD session TTS; and won't be able to get dialysis till Monday next week. So plans are to dialyze on monday then DC. Plan Patient is a 62-year-old male with a history of end-stage renal disease on dialysis comes to hospital complaining of shortness of breath and tardy stools.? Patient states that he started noticing dark stool about 2 weeks ago progressively getting worse.? Patient started feeling more tired and fatigued unable to walk more than 100 yd.? Patient also noticed some dry cough which was nonproductive.? Patient was not recorded as being positive for COVID 19 virus 3 weeks ago.? He can still continues to urinate but denies any chest pain no fever no chills no nasal congestion.? Patient only takes Tylenol has not taken any Advil but does take a baby aspirin.? Patient had a colonoscopy done about a year ago which was negative except few benign polyps.? The patient denies any history of any local injury no use of iron pills no diarrhea no vomiting 11/03/23: s/p 3U PRBC since admission; Hb is holding appropriately at 8.5 today. He is being held due to HD session TTS; and won't be able to get dialysis till Monday next week. So plans are to dialyze on monday then DC. Assessment and Plan (1) Acute anemia: ?Code(s): D64.9 - Anemia, unspecified ?Status:?Acute ?Assessment and Plan: Goal Hb >7; transfused today, 10/31/23 s/p 3U PRBC; goal Hb >7 (2) Elevated brain natriuretic peptide (BNP) level: ?Code(s): R79.89 - Other specified abnormal findings of blood chemistry ?Status:?Acute 11/02/23: Probably 2/2 fluid overload; on HD sessions (3) Acute kidney injury superimposed on CKD: ?Code(s): N17.9 - Acute kidney failure, unspecified; N18.9 - Chronic kidney disease, unspecified ?Status:?Acute ?Assessment and Plan: Slated for HD; 11/02/23: Will remain till 11/04/23 because he will not be dialyzed out there till Monday (4) Acute upper GI bleed: ?Code(s): K92.2 - Gastrointestinal hemorrhage, unspecified ?Status:?Acute ?Assessment and Plan: Bleeding AVM on EGD 11/02/23: Holding Aspirin; continue PPI Plan Upper GI bleed.?? Advance diet as tolerated GI consulted.? 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 Will get a dose of Epogen today 2D echo EF of 60% Positive troponin due to demand ischemia.? Continue to monitor levels and monitor EKG changes. EKG shows sinus bradycardia with first-degree AV block Continue to monitor H&H closely.? Monitor vital signs.? ESRD On dialysis Nephrology consulted Creatinine 5.4 Avoid nephrotoxic drugs. Furosemide twice a day PO BP meds on hold Avoid NSAIDs. D-dimer 2.12 CT chest negative for PE History of alcoholism counseling done 10/30/23: Goal Hb >7; will monitor tomorrow 11/02/23: Transfused 1U PRBC today; 3U since admission DV
[2023-11-03 14:00] VITALS: BP 146/75; PULSE 76; RESP 16; TEMP 36.6; O2SAT 99
[2023-11-03] MEDS: lisinopriL 5 MG TABLET PO (17:00)
[2023-11-03 19:12] VITALS: PULSE 72; RESP 12; O2SAT 100
[2023-11-03 21:29] VITALS: BP 177/76; PULSE 55; RESP 12; TEMP 36.8; O2SAT 98
[2023-11-04] VITALS (19 sets, daily range): BP systolic 103–152; BP diastolic 60–83; PULSE 53–87; RESP 12–16; TEMP 34.7–37; O2SAT 76–96
[2023-11-04 06:38] LABS: Basophils Percent Auto 0.4 % (0.2-1.2); Eosinophils Absolute Auto 0.5 K/mm3 (0-0.3); Hematocrit 27.4 % (42.0-52.0); Hemoglobin 8.5 g/dL (14.0-18.0); Immature Granulocyte Absolute 0.03 K/mm3 (0.00-0.031); Immature Granulocyte Percent A 0.3 % (0-0.5); Lymphocytes Absolute Auto 0.75 K/mm3 (0.9-3.2); Lymphocytes Percent Auto 7.2 % (18.3-44.2); Mean Corpuscular Hemoglobin 28.6 pg (26-34); Mean Corpuscular Volume 92.3 fl (80-100); Mean Platelet Volume 10.1 fl (7.4-10.4); Monocytes Absolute Auto 1.3 K/mm3 (0.1-0.6); Monocytes Percent Auto 12.3 % (2.6-8.5); Neutrophils Absolute Auto 7.8 K/mm3 (1.3-6.7); Neutrophils Percent Auto 74.8 % (45.5-73.1); Platelet Count Result 296 k/mm3 (150-375); Red Blood Count 2.97 M/mm3 (4.6-6.20); Red Cell Distribution Width 14.5 % (11.5-14.5); White Blood Count 10.4 K/mm3 (4.5-10.0)
[2023-11-04 07:08] LABS: Alanine Aminotransferase 14 U/L (6-50); Albumin Level 3.6 g/dL (3.5-5.1); Alkaline Phosphatase 77 U/L (38-126); Anion Gap 14 mmol/L (8-16); Aspartate Amino Transferase 16 U/L (17-59); Bilirubin,Total 0.4 mg/dL (0.2-1.3); Blood Urea Nitrogen 63 mg/dL (9-20); Calcium 9.4 mg/dL (8.4-10.2); Carbon Dioxide 21 mmol/L (22-30); Chloride 97 mmol/L (98-107); Estimated CRCL calculation 10 ml/min; Estimated Glomerular Filt Rate 7; Glucose 123 mg/dL (65-110); Potassium 4.4 mmol/L (3.4-5.0); Sodium 132 mmol/L (137-145)
[2023-11-04] MEDS: ACETAMINOPHEN 325 MG TABLET 650 MG PO (09:04)
[2023-11-04] MEDS: PANTOPRAZOLE SODIUM IV 40 MG VIAL IV PUSH (09:04)
--- NOTE | 2023-11-04 12:40 | PM.PNNEP ---
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 since outpatient dialysis schedule going to be T/T/S (2) Acute upper GI bleed: Code(s): K92.2 - Gastrointestinal hemorrhage, unspecified Status: Acute Assessment and Plan: s/p EGD with findings of duodenal AVMs PRBC transfusion per protocol H/H slowly improving/stabilizing Gastroenterology following (3) Volume overload: Code(s): E87.70 - Fluid overload, unspecified Status: Acute Assessment and Plan: as suggested by admission CXR elevated BNP noted Echo results noted continue oral diuretics and ultrafiltration with HD (4) Hypertension: Qualifiers: Hypertension type: primary hypertension Qualified Code(s): I10 - Essential (primary) hypertension Code(s): I10 - Essential (primary) hypertension Status: Chronic Assessment and Plan: slow improvement noted started on low dose lisinopril and titrate follow trend of hemodynamics (5) Anemia: Code(s): D64.9 - Anemia, unspecified Status: Chronic Assessment and Plan: due to #2 and complicated by advanced CKD/ESRD suspect an element of uremic bleeding as well Epogen with HD follow H/H (6) Secondary hyperparathyroidism: Code(s): N25.81 - Secondary hyperparathyroidism of renal origin Status: Chronic Assessment and Plan: phosphorus in range by last check PTH and Vitamin D in range follow trend as an outpatient Not opposed to discharge after dialysis today if otherwise medically stable since outpatient HD schedule has apparently been finalized (T/T/S) with his first outpatient dialysis treatment on Monday next week. Will continue follow. Subjective Date/time seen: 11/04/23 12:40 Interval history: Follow-up for CKD stage V with transition to end stage renal disease now on hemodialysis. Tolerating dialysis treatment at the time of my visit (seen on HD at 12:30PM); no new issues or events overnight or earlier this morning; H/H has remained relatively stable for the last 24 - 48 hours; no apparent distress voiced; overall, feels reasonably well. Exam Narrative: General: middle aged WD/WN male in NAD Heart: normal S1 and S2; no rub Lungs: clear to auscultation Abdomen: soft, nontender, nondistended, positive bowel sounds Extremities: no cyanosis or clubbing; trace edema Skin: warm and intact Objective Data Vital Signs Vital Signs: Vital Signs Temp Pulse Resp BP Pulse Ox O2 Del Method FiO2 11/04/23 12:30 73 125/76 11/04/23 12:15 76 137/75 11/04/23 12:00 81 126/80 11/04/23 11:46 76 125/60 11/04/23 11:36 74 132/80 11/04/23 11:25 98.4 F 74 16 129/76 11/04/23 09:00 Room Air 11/04/23 05:28 97.4 F L 87 12 152/71 H 96 11/03/23 21:29 98.3 F 55 L 12 177/76 H 98 11/03/23 19:12 72 12 100 Room Air 98 Intake/Output Intake/Output: Intake & Output 11/01/23 11/02/23 11/03/23 11/04/23 23:59 23:59 23:59 23:59 Intake Total 2019 2767 2100 1240 Output Total 1999 1999 Balance 2019 767 2100 -760 Meds/Results Medications: Active Medications Generic Name Dose Route Start Last Admin Trade Name Freq PRN Reason Stop Dose Admin Acetaminophen 650 mg 10/27/23 14:52 11/04/23 09:04 Acetaminophen 325 Mg Tablet PO 650 mg Q6H PRN Administration Mild Pain (1-3) or Fever Bumetanide 2 mg 10/31/23 17:00 11/04/23 09:05 Bumetanide 1 Mg Tablet PO Not Given BID [facility] Epoetin Jim 20,000 units 11/04/23 20:00 11/04/23 13:29 Epoetin Jim 20,000 Units/Ml Vial IV PUSH 11/04/23 20:01 20
--- NOTE | 2023-11-04 12:40 | P.PNNP_ITS ---
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 * HD today since outpatient dialysis schedule going to be T/T/S (2) Acute upper GI bleed: Code(s): K92.2 - Gastrointestinal hemorrhage, unspecified Status: Acute Assessment and Plan: * s/p EGD with findings of duodenal AVMs * PRBC transfusion per protocol * H/H slowly improving/stabilizing * Gastroenterology following (3) Volume overload: Code(s): E87.70 - Fluid overload, unspecified Status: Acute Assessment and Plan: * as suggested by admission CXR * elevated BNP noted * Echo results noted * continue oral diuretics and ultrafiltration with HD (4) Hypertension: Qualifiers: Hypertension type: primary hypertension Qualified Code(s): I10 - Essential (primary) hypertension Code(s): I10 - Essential (primary) hypertension Status: Chronic Assessment and Plan: * slow improvement noted * started on low dose lisinopril and titrate * follow trend of hemodynamics (5) Anemia: Code(s): D64.9 - Anemia, unspecified Status: Chronic Assessment and Plan: * due to #2 and complicated by advanced CKD/ESRD * suspect an element of uremic bleeding as well * Epogen with HD * follow H/H (6) Secondary hyperparathyroidism: Code(s): N25.81 - Secondary hyperparathyroidism of renal origin Status: Chronic Assessment and Plan: * phosphorus in range by last check * PTH and Vitamin D in range * follow trend as an outpatient Not opposed to discharge after dialysis today if otherwise medically stable since outpatient HD schedule has apparently been finalized (T/T/S) with his first outpatient dialysis treatment on Monday next week. Will continue follow. Subjective Date/time seen: 11/04/23 12:40 Interval history: Follow-up for CKD stage V with transition to end stage renal disease now on hemodialysis. Tolerating dialysis treatment at the time of my visit (seen on HD at 12:30PM); no new issues or events overnight or earlier this morning; H/H has remained relatively stable for the last 24 - 48 hours; no apparent distress voiced; overall, feels reasonably well. Exam Narrative: General: middle aged WD/WN male in NAD Heart: normal S1 and S2; no rub Lungs: clear to auscultation Abdomen: soft, nontender, nondistended, positive bowel sounds Extremities: no cyanosis or clubbing; trace edema Skin: warm and intact Objective Data Vital Signs Vital Signs: Vital Signs Temp Pulse Resp BP Pulse Ox O2 Del Method FiO2 11/04/23 12:30 73 125/76 11/04/23 12:15 76 137/75 11/04/23 12:00 81 126/80 11/04/23 11:46 76 125/60 11/04/23 11:36 74 132/80 11/04/23 11:25 98.4 F 74 16 129/76 11/04/23 09:00 Room Air 11/04/23 05:28 97.4 F L 87 12 152/71 H 96 11/03/23 21:29 98.3 F 55 L 12 177/76 H 98 11/03/23 19:12 72 12 100 Room Air 98 Intake/Output Intake/Output: Inta
[2023-11-04] MEDS: EPOETIN ALFA 20,000 UNITS/ML VIAL 20000 UNITS IV PUSH (13:29)
[2023-11-04] MEDS: HEPARIN SODIUM 1,000 UNITS/ML VIAL 5000 UNITS (13:30)
[2023-11-04] MEDS: SODIUM CHLORIDE 0.9% IV 1,000 ML 999 ML IV CONT (13:31)
--- NOTE | 2023-11-04 16:50 | PM.DS ---
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 Found to have severe anemia with hemoglobin 5.9. Received a total of 3 units packed red cells transfuse. EGD revealed gastric AVM in the duodenal sweep with artery performed to stop active bleeding on October 26. Started on PPI therapy and blood counts were monitored. Underwent his usual dialysis. Had issues with volume overload after transfusion. This resolved with repeated dialysis treatments. He was scheduled for outpatient dialysis at [facility] in [place] on Tuesdays and Fridays at 5:40 a.m.. By day of discharge she Ali, tolerating his diet, experiencing no chest pain shortness a breath dizziness swelling GI or . He noted no abnormal bleeding. Time Spent with Patient Time attestation: Total time spent providing and/or coordinating discharge services: Exam Narrative: HEENT: PERRL, sclerae nonicteric, pharyngeal mucosa pink and intact NECK: No JVD CHEST: Clear to auscultation. Normal effort. HEART: NL S1/S2, regular, no murmur ABDOMEN: BS+, soft, nontender, no mass, no bruits EXTREMITIES: No cyanosis, edema, or clubbing NEUROLOGIC: CN intact and symmetric to inspection. MUSCULOSKELETAL: Tone and strength symmetric. PSYCH: Alert. Oriented to person, place, and time. DS: Data Data Completed and Pending Labs on day of discharge: Labs from last 24 hours 11/04/23 06:02 WBC 10.4 H RBC 2.97 L Hgb 8.5 L Hct 27.4 L MCV 92.3 MCH 28.6 MCHC 31.0 L RDW 14.5 Plt Count 296 MPV 10.1 Immature Gran % (Auto) 0.3 Neut % (Auto) 74.8 H Lymph % (Auto) 7.2 L [place] % (Auto) 12.3 H Eos % (Auto) 5.0 H Baso % (Auto) 0.4 Lymph # (Auto) 0.75 L [place] # (Auto) 1.3 H Eos # (Auto) 0.5 H Baso # (Auto) 0.0 Abs Immat Gran (auto) 0.03 Absolute Neuts (auto) 7.8 H Absolute Nucleated RBC 0.0 Nucleated RBC % 0.0 Sodium 132 L Potassium 4.4 Chloride 97 L Carbon Dioxide 21 L Anion Gap 14 BUN 63 H D Creatinine 7.80 H Estim Creat Clear Calc 10 Estimated GFR 7 L Glucose 123 H Calcium 9.4 Total Bilirubin 0.4 AST 16 L ALT 14 Alkaline Phosphatase 77 Total Protein 7.0 Albumin 3.6 Discharge Plan Discharge Attending physician on discharge: Darius Gomez Consulting providers: Roe Bhatt; Rachell Mcnulty Discharging Clinician: Darius Gomez Patient Disposition: Home, Self-Care Activity: as tolerated Diet: renal Discharge Instructions: Care Coordination: Patient to start dialysis treatments at [facility] (ph: [phone]) on Tuesdays, , and Saturdays at 5:40 AM. Please arrive at 5:15 AM for your first visit - scheduled on November 07, 2023. Patient Instructions: Antibiotic Form, How to Stop Smoking (GEN), Arteriovenous Malformation (GEN), Anemia (GEN) Stand Alone Forms: General Discharge Information Follow-up/Referrals: Roe Bhatt MD [Physician] - Rachell Mcnulty MD [Physician] - Discharge Medications: New pantoprazole 20 mg tablet,delayed release (DR/EC) 20 mg PO BID 28 Days Qty: 56 0RF Continued sodium bicarbonate 650 mg tablet 650 mg PO BID Qty: 60 11RF hydralazine 25 mg tablet 25 mg PO BID amlodipine 10 mg Tablet 10 mg PO QAM metoprolol succinate 100 mg Capsule,Sprinkle,Er 24hr 100 mg PO QAM cholecalciferol (vitamin D3) 75 mcg (3,000 unit) Tablet 75 mcg PO DAILY furosemide 20 mg tablet 20 mg PO QAM Qty: 30 6RF Discontinued aspirin 81 mg Tablet,Delayed Release (Dr/Ec) 81 mg PO DAILY Hold Instructions: Resume on 05/18/22. Date of admission: 10/25/23 16:23 Primary Care Provider: Niya,Gia Admitting
== END 2023-11-04 17:35 | disposition home or self-care (01) | DRG 377 ==
LOC: ANHED 13:21 → ANHIMU 16:44 → ANH3MEDSUR 11-02 14:09 → ANHIMU 11-06 09:57
PROVIDERS: Family Medicine; Internal Medicine; Internal Medicine Gastroenterology; Internal Medicine Nephrology; Admitting Provider Internal Medicine; Emergency Provider Student in an Organized Health Care Education/Training Program; PCP Physician Assistant; Visit Provider Internal Medicine
PROC: 0DJ08ZZ Inspection of Upper Intestinal Tract, Via Natural or Artificial Opening Endoscopic (ICD-10-PCS; CPT 43235; principal; 2023-10-26 13:30)
DX: K31.811 Angiodysplasia of stomach and duodenum with bleeding (principal); N18.6 End stage renal disease; D62 Acute posthemorrhagic anemia; N17.9 Acute kidney failure, unspecified; I12.0 Hypertensive chronic kidney disease with stage 5 chronic kidney disease or end stage renal disease; N25.81 Secondary hyperparathyroidism of renal origin; D63.1 Anemia in chronic kidney disease; E87.70 Fluid overload, unspecified; F17.210 Nicotine dependence, cigarettes, uncomplicated; F10.20 Alcohol dependence, uncomplicated; G62.9 Polyneuropathy, unspecified; I44.0 Atrioventricular block, first degree; K92.1 Melena; K21.9 Gastro-esophageal reflux disease without esophagitis; K44.9 Diaphragmatic hernia without obstruction or gangrene; N40.0 Benign prostatic hyperplasia without lower urinary tract symptoms; R79.89 Other specified abnormal findings of blood chemistry; R16.0 Hepatomegaly, not elsewhere classified; Z99.2 Dependence on renal dialysis; Z90.5 Acquired absence of kidney; Z79.82 Long term (current) use of aspirin; Z86.010 Personal history of colon polyps; Z86.16 Personal history of COVID-19
CPT/HCPCS: 36415; 36430; 71046; 74176; 78580; 80053; 80069; 80076; 82306; 82607; 82728; 82746; 83540; 83550; 83880; 83970; 84100; 84145; 84484; 85014; 85018; 85025; 85027; 85046; 85380; 85610; 85730; 86704; 86706; 86850; 86900; 86901; 86923; 87081; 87340; 87637; 93306; 93970; 96374; 99285; A9270; A9540; C9113; G0257; J0360; J1644; J1939; J2704; J7030; J7040; J7050; P9016; P9047; Q4081; Q5105

== ENCOUNTER 2023-11-13 09:57 | Outpatient (CLI) | payer BC, SELFPAY ==
--- NOTE | ~2023-11-13 | CT_ITS ---
EXAMINATION: CT chest abdomen pelvis wo con DATE: 11/13/2023 10:20 INDICATION: Pelvic lymphadenopathy TECHNIQUE: Computed tomography (CT) of the chest, abdomen, and pelvis was performed without intraveno us contrast. Automated exposure control and iterative reconstruction technique were employed. Exam do se: 1039.36 mGy-cm total exam DLP. COMPARISON: 10/25/2023 CT abdomen pelvis 10/25/2023 2 view chest 05/23/[address] scan 03/06/2023 CT abdomen pelvis FINDINGS: CHEST CT: Bilateral gynecomastia Anterior segment right upper lobe focal probable scarring. Bilateral pulmonary nodules: 3 mm right lower lobe pulmonary nodule (series 4 image 71). 9 mm right lower lobe pulmonary nodule (series 4 image 97). 4.5 mm groundglass density in the medial left apex (series 4 image 24). 4 mm left upper lobe pulmonary nodule (series 4 image 41). 7 mm subpleural groundglass density, posterior segment, left upper lobe (series 4 image 41). 2.5 mm nodule, anterior segment left lower lobe (series 4 image 87). Aortic, great vessel and prominent coronary artery calcifications. No thoracic aortic aneurysm. No hilar or mediastinal mass lesion or lymphadenopathy. Heart size is within normal range. No pericardial or pleural effusion. No pulmonary infiltrate or consolidation. ABDOMEN/PELVIS CT: Small stones are noted in the dependent aspect of the gallbladder. Borderline gallbladder wall thickn ess. No pericholecystic fluid. The gallbladder does not appear abnormally distended. No bile duct or pancreatic duct dilatation. No hepatic, splenic, pancreatic, and adrenal or left renal space occupying mass lesion is evident. Status post right nephrectomy. 7 mm nonobstructing left renal calculus. Mild prostatomegaly. Moderate diffuse thickening of the urinary bladder wall. Up to 5.2 cm infrarenal abdominal aortic aneurysm is again noted. There are extensive atherosclerotic calcifications of the hepatic arteries, splenic artery, as well a s calcifications at the origins of the celiac and superior mesenteric and renal arteries. Extensive l eft renal artery calcifications. Inferior mesenteric artery calcification. There is extensive calcification of the common, internal and external iliac and femoral arteries. No periaortic or aortocaval lymphadenopathy. Stable mild bilateral pelvic lymph node prominence, not significant change since 03/06/2023. There are numerous diverticula of the sigmoid colon; no CT evidence of diverticulitis. No bowel obstr uction. No evidence of appendicitis. No intraperitoneal free air. Bilateral fat-containing inguinal hernias. Old healed right rib fractures. Prominent degenerative disc disease in the lower cervical spine. Diffuse idiopathic skeletal hyperostosis of the thoracic spine. Severe degenerative disc disease at L5-S1. Bilateral hip osteoarthritis. IMPRESSION: Bilateral gynecomastia Probable right upper lobe focal scarring Bilateral pulmonary nonspecific nodules; metastases are not excluded Cholelithiasis; borderline gallbladder wall thickness Stable mild pelvic lymphadenopathy since 023 Stable approximately 5.2 cm infrarenal abdominal aortic aneurysm Status post right nephrectomy for history of renal cell carcinoma 7 mm left renal nonobstructing calculus Mild prostatomegaly Reviewed, dictated and finalized at [facility]. 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 TELEPHONE TRIAGE IMPRESSION: Bilateral gynecomastia Probable right upper lobe focal scarring Bilateral pulmonary nonspecific nodules; metastases are not excluded Cholelithiasis; borderline gallbladder wall thickness Stable mild pelvic lympha denopathy since 03/06/2023 Stable approximately 5.2 cm infrarenal abdominal aortic aneurysm Status post right nephrectomy for history of renal cell carcinoma 7
== END 2023-11-13 09:58 | disposition home or self-care (01) ==
PROVIDERS: PCP Physician Assistant; Visit Provider Internal Medicine
DX: R59.0 Localized enlarged lymph nodes (principal); R91.8 Other nonspecific abnormal finding of lung field; N20.0 Calculus of kidney; N40.0 Benign prostatic hyperplasia without lower urinary tract symptoms; K80.20 Calculus of gallbladder without cholecystitis without obstruction; I71.43 Infrarenal abdominal aortic aneurysm, without rupture
CPT/HCPCS: 71250; 74176

== ENCOUNTER 2023-11-24 10:42 | Outpatient (CLI) | payer BC, SELFPAY ==
[2023-11-24 11:10] LABS: Basophils Percent Auto 0.7 % (0.2-1.2); Eosinophils Absolute Auto 0.4 K/mm3 (0-0.3); Eosinophils Percent Auto 6.4 % (0-4.4); Hematocrit 26.4 % (42.0-52.0); Immature Granulocyte Absolute 0.03 K/mm3 (0.00-0.031); Immature Granulocyte Percent A 0.5 % (0-0.5); Lymphocytes Absolute Auto 0.88 K/mm3 (0.9-3.2); Lymphocytes Percent Auto 14.8 % (18.3-44.2); Mean Corpuscular HGB Conc 30.3 g/dl (32-36); Mean Corpuscular Hemoglobin 28.6 pg (26-34); Mean Corpuscular Volume 94.3 fl (80-100); Mean Platelet Volume 9.2 fl (7.4-10.4); Monocytes Absolute Auto 0.6 K/mm3 (0.1-0.6); Monocytes Percent Auto 9.8 % (2.6-8.5); Neutrophils Percent Auto 67.8 % (45.5-73.1); Platelet Count Result 307 k/mm3 (150-375); Red Cell Distribution Width 15.4 % (11.5-14.5); White Blood Count 5.9 K/mm3 (4.5-10.0)
[2023-11-24 11:15] LABS: Blood Urea Nitrogen 28 mg/dL (8-26); Carbon Dioxide 27 mmol/L (22-30); Chloride 100 mmol/L (98-109); Estimated Glomerular Filt Rate 10; Glucose 190 mg/dL (70-105); Ionized Calcium (POC) 1.15 mmol/L (1.11-1.31); Potassium 3.9 mmol/L (3.5-4.9); Sodium 138 mmol/L (138-146)
[2023-11-24 15:24] LABS: Iron 47 ug/dL (49-181)
[2023-11-24 15:26] LABS: Alanine Aminotransferase 17 U/L (6-50); Albumin Level 3.6 g/dL (3.5-5.1); Alkaline Phosphatase 84 U/L (38-126); Anion Gap 10 mmol/L (8-16); Aspartate Amino Transferase 44 U/L (17-59); Bilirubin,Total 0.4 mg/dL (0.2-1.3); Blood Urea Nitrogen 32 mg/dL (9-20); Calcium 9.2 mg/dL (8.4-10.2); Carbon Dioxide 27 mmol/L (22-30); Chloride 100 mmol/L (98-107); Estimated Glomerular Filt Rate 12; Glucose 185 mg/dL (65-110); Sodium 137 mmol/L (137-145)
[2023-11-24 15:37] LABS: Percent Iron Saturation 16 % (20-50)
== END 2023-11-24 10:43 | disposition home or self-care (01) ==
LOC: ANHLAB 10:45
PROVIDERS: PCP Physician Assistant; Visit Provider Internal Medicine Hematology & Oncology
DX: D64.9 Anemia, unspecified (principal); R59.0 Localized enlarged lymph nodes
CPT/HCPCS: 36415; 80047; 80053; 82607; 82728; 83540; 83550; 84238; 85025

== ENCOUNTER 2024-02-27 10:00 | Outpatient (CLI) | payer BC, SELFPAY ==
--- NOTE | ~2024-02-27 | CT_ITS ---
CT Scan of the Chest without Contrast: Clinical Indication: Chronic anemia Technique: Contiguous sections were acquired throughout the chest without intravenous contrast. Dose reduction technique was used on this scan by utilizing automated exposure control and iterative recon struction technique. The dose-length product (DLP) was 345.66 mGy-cm. COMPARISON: 11/13/2023 Findings: There is no evidence of any significant mediastinal, hilar or axillary lymphadenopathy. Extensive cor onary artery calcifications are present. There is no evidence of pleural or pericardial effusion. Stable 1 cm noncalcified right basilar pulmonary nodule (axial image 99). Stable 2 mm left lower lobe pulmonary nodule (axial image 80). Stable 5 mm left upper lobe pulmonary nodule (axial image 46). Images through the upper abdomen reveal probable prior right nephrectomy and tiny gallstones. Impression: Stable pulmonary nodules, as detailed above. Reviewed, dictated and finalized at [facility]. Impression: Stable pulmonary nodules, as detailed above.
== END 2024-02-27 10:01 | disposition home or self-care (01) ==
PROVIDERS: PCP Physician Assistant; Visit Provider Internal Medicine Hematology & Oncology
DX: D64.9 Anemia, unspecified (principal); R91.8 Other nonspecific abnormal finding of lung field
CPT/HCPCS: 71250

== ENCOUNTER 2024-02-29 10:06 | Outpatient (CLI) | payer BC, SELFPAY ==
[2024-02-29 10:45] LABS: Basophils Absolute Auto 0.1 K/mm3 (0.0-0.1); Basophils Percent Auto 0.8 % (0.2-1.2); Eosinophils Absolute Auto 0.3 K/mm3 (0-0.3); Eosinophils Percent Auto 4.5 % (0-4.4); Hematocrit 44.6 % (42.0-52.0); Hemoglobin 14.6 g/dL (14.0-18.0); Immature Granulocyte Absolute 0.03 K/mm3 (0.00-0.031); Immature Granulocyte Percent A 0.5 % (0-0.5); Lymphocytes Absolute Auto 0.99 K/mm3 (0.9-3.2); Lymphocytes Percent Auto 16.5 % (18.3-44.2); Mean Corpuscular HGB Conc 32.7 g/dl (32-36); Mean Corpuscular Hemoglobin 31.1 pg (26-34); Mean Corpuscular Volume 94.9 fl (80-100); Mean Platelet Volume 9.7 fl (7.4-10.4); Monocytes Absolute Auto 0.8 K/mm3 (0.1-0.6); Monocytes Percent Auto 13.6 % (2.6-8.5); Neutrophils Absolute Auto 3.9 K/mm3 (1.3-6.7); Neutrophils Percent Auto 64.1 % (45.5-73.1); Platelet Count Result 253 k/mm3 (150-375); Red Cell Distribution Width 15.9 % (11.5-14.5)
[2024-02-29 12:29] LABS: Iron 350 ug/dL (49-181)
[2024-02-29 12:39] LABS: Anion Gap 12 mmol/L (4-12); Blood Urea Nitrogen 33 mg/dL (9-20); Calcium 9.8 mg/dL (8.4-10.2); Carbon Dioxide 29 mmol/L (22-30); Chloride 95 mmol/L (98-107); Estimated Glomerular Filt Rate 11; Glucose 93 mg/dL (65-110); Percent Iron Saturation 146 % (20-50); Potassium 4.1 mmol/L (3.4-5.0); Sodium 136 mmol/L (137-145)
[2024-03-11 14:33] LABS: Soluble Transferrin Receptor 1.58 mg/L (0.76-1.76)
== END 2024-02-29 10:07 | disposition home or self-care (01) ==
LOC: ANHLAB 10:07
PROVIDERS: PCP Physician Assistant; Visit Provider Internal Medicine Hematology & Oncology
DX: D64.9 Anemia, unspecified (principal)
CPT/HCPCS: 36415; 80048; 82607; 82728; 83540; 83550; 84238; 85025

== ENCOUNTER 2024-05-16 12:49 | Outpatient (CLI) | payer BC, SELFPAY ==
--- NOTE | 2024-05-21 14:56 | WPDHOLTEREM ---
Holter/Event Monitor Holter/Event Monitor Date of procedure: 05/16/24 Holter/Event Procedure: 24 Hr Holter Monitor Indications: Atrial flutter Conclusion: 1. 24 hour holter monitor on 05/16/24. 2. Underlying rhythm is atrial flutter. HR range 60-154 bpm; average 84 bpm. 3. No other supraventricular arrhythmias. 4. There are 236 premature ventricular complexes, 1 ventricular couplet, and 14 ventricular trigeminy. No ventricular tachycardia. 5. No significant pauses greater than 2 seconds. 6. No symptoms available for correlation.
== END 2024-05-16 12:50 | disposition home or self-care (01) ==
PROVIDERS: PCP Physician Assistant; Visit Provider Internal Medicine
DX: I48.3 Typical atrial flutter (principal)
CPT/HCPCS: 93225; 93226

== ENCOUNTER 2024-06-05 09:40 | Outpatient (CLI) | payer BC, SELFPAY ==
[2024-06-05 09:59] LABS: Basophils Absolute Auto 0.1 K/mm3 (0.0-0.1); Basophils Percent Auto 0.8 % (0.2-1.2); Eosinophils Absolute Auto 0.2 K/mm3 (0-0.3); Eosinophils Percent Auto 3.1 % (0-4.4); Hematocrit 38.8 % (42.0-52.0); Hemoglobin 12.6 g/dL (14.0-18.0); Immature Granulocyte Absolute 0.02 K/mm3 (0.00-0.031); Immature Granulocyte Percent A 0.3 % (0-0.5); Lymphocytes Absolute Auto 0.91 K/mm3 (0.9-3.2); Lymphocytes Percent Auto 14.3 % (18.3-44.2); Mean Corpuscular HGB Conc 32.5 g/dl (32-36); Mean Corpuscular Hemoglobin 34.4 pg (26-34); Mean Platelet Volume 9.1 fl (7.4-10.4); Monocytes Absolute Auto 0.5 K/mm3 (0.1-0.6); Monocytes Percent Auto 8.3 % (2.6-8.5); Neutrophils Absolute Auto 4.7 K/mm3 (1.3-6.7); Neutrophils Percent Auto 73.2 % (45.5-73.1); Platelet Count Result 243 k/mm3 (150-375); Red Blood Count 3.66 M/mm3 (4.6-6.20); Red Cell Distribution Width 15.9 % (11.5-14.5); White Blood Count 6.4 K/mm3 (4.5-10.0)
[2024-06-05 10:35] LABS: Anion Gap 19 mmol/L (4-12); Blood Urea Nitrogen 38 mg/dL (9-20); Carbon Dioxide 22 mmol/L (22-30); Chloride 94 mmol/L (98-107); Potassium 4.2 mmol/L (3.4-5.0); Sodium 135 mmol/L (137-145)
[2024-06-05 10:36] LABS: Estimated Glomerular Filt Rate 7; Glucose 120 mg/dL (65-110)
[2024-06-05 11:40] LABS: Folic Acid 5.5 ng/mL (2.76->20)
[2024-06-05 14:50] LABS: Iron 95 ug/dL (49-181)
[2024-06-05 15:01] LABS: Percent Iron Saturation 37 % (20-50)
== END 2024-06-05 09:41 | disposition home or self-care (01) ==
LOC: ANHLAB 09:42
PROVIDERS: PCP Physician Assistant; Visit Provider Internal Medicine Hematology & Oncology
DX: D64.9 Anemia, unspecified (principal)
CPT/HCPCS: 36415; 80048; 82607; 82728; 82746; 83540; 83550; 85025

== ENCOUNTER 2024-09-03 12:35 | Outpatient (CLI) | payer BC, SELFPAY ==
--- NOTE | ~2024-09-03 | CT_ITS ---
EXAMINATION: CT chest abdomen pelvis wo con DATE: 09/03/2024 13:13 INDICATION: Renal cell carcinoma of right kidney. TECHNIQUE: Computed tomography (CT) of the chest, abdomen, and pelvis was performed without intraveno us contrast. Automated exposure control and iterative reconstruction technique were employed. The dos e-length product was 1014.75 mGy-cm. COMPARISON: Chest CT 02/27/2024, CT abdomen and pelvis 11/13/2023 FINDINGS: CHEST CT: There is mild scarring at the lung apices. There is a 12 mm nodule in right lower lobe, increased fro m 9 mm on 02/27/24. There are greater than 10 subcentimeter pulmonary nodules scattered in the lungs w ith increase in size of some of the nodules. No pleural effusion. The heart size is normal. There are coronary artery calcifications. No pericardial effusion. There is bilateral gynecomastia. There are bridging endplate osteophytes at multiple levels in the spine, consistent with diffuse idiopathic ske letal hyperostosis (DISH). There are old healed right rib fractures. ABDOMEN/PELVIS CT: The liver is normal. Calcifications in the spleen are consistent with old granulomatous disease. Ther e are gallstones in the gallbladder. Gallbladder distention may be secondary to fasting. The pancreas and right adrenal gland are normal. There is a 2.2 cm mass in left adrenal gland measuring soft tiss ue attenuation, increased from 1.5 cm on 02/27/24. There are changes of right nephrectomy. There is mi ld atrophy of left kidney. There are 3 stones in left kidney measuring up to 6 mm. The prostate is mi ldly enlarged. There is diverticulosis of the colon without evidence of diverticulitis. There are no dilated loops of bowel. The appendix is normal. There are no pathologically enlarged lymph nodes. The re is no free intraperitoneal fluid. There is calcified atherosclerosis of the aorta and many of the other arteries. There is a 5.5 cm fusiform aneurysm of infrarenal aorta. There is moderate lumbar spo ndylosis. IMPRESSION: 1. Worsened lung nodules and left adrenal mass, consistent with metastatic disease. 2. 5.5 cm fusiform aneurysm of infrarenal aorta. Surgical consultation is recommended. Reviewed, dictated and finalized at location [facility]. US EXECUTIVE DIRECTOR IMPRESSION: 1. Worsened lung nodules and left adrenal mass, consistent with metastatic dise ase. 2. 5.5 cm fusiform aneurysm of infrarenal aorta. Surgical consultation is recom mended.
== END 2024-09-03 12:36 | disposition home or self-care (01) ==
PROVIDERS: PCP Physician Assistant; Visit Provider Internal Medicine Hematology & Oncology
DX: C64.1 Malignant neoplasm of right kidney, except renal pelvis (principal); I71.43 Infrarenal abdominal aortic aneurysm, without rupture
CPT/HCPCS: 71250; 74176

== ENCOUNTER 2024-09-17 05:58 | Emergency (ER) | payer BC, SELFPAY ==
[2024-09-17] VITALS (13 sets, daily range): BP systolic 121–154; BP diastolic 71–97; PULSE 90–140; RESP 14–22; TEMP 36.6; O2SAT 93–100
--- NOTE | ~2024-09-17 | XR_ITS ---
Clinical Indication: Atrial fibrillation PA and lateral views of the chest: Comparison: 10/25/2023 Findings: The lungs are clear, without evidence of focal consolidation or pleural effusion. Cardiome diastinal silhouette is within normal limits. Bones and soft tissues are unremarkable. Impression: Normal chest. Reviewed, dictated and finalized at location . NT SERVICES ADMINISTRATOR Impression: Normal chest.
--- NOTE | 2024-09-17 06:00 | ECG_ITS ---
Test Date: 2024-09-17 06:05:03 Measurements Intervals [place] Rate: 141 P: 0 CO: 0 QRS: -31 QRSD: 117 T: 78 QT: 276 QTc: 423 Interpretive Statements ATRIAL FLUTTER/TACHYCARDIA WITH RAPID VENTRICULAR RESPONSE MARKED LEFT AXIS DEVIATION [QRS AXIS < -30] MODERATE INTRAVENTRICULAR CONDUCTION DELAY [110+ ms QRS DURATION] MODERATE ST DEPRESSION [0.05+ mV ST DEPRESSION] No previous ECG available for comparison Electronically Signed On 09-17-2024 15:24:18 SUPERVISOR ANODIZING by Dorothy James M.D.
--- NOTE | 2024-09-17 06:31 | PC.NURSE ---
EDP Dr. Felecia MORALES to non admin ordered 324 mg ASA. Pt takes eliquis daily, but did not take his dose this am.
[2024-09-17 06:35] LABS: Alanine Aminotransferase 14 U/L (6-50); Albumin Level 4.4 g/dL (3.5-5.1); Alkaline Phosphatase 77 U/L (38-126); Anion Gap 10 mmol/L (4-12); Aspartate Amino Transferase 16 U/L (17-59); Bilirubin,Total 0.6 mg/dL (0.2-1.3); Blood Urea Nitrogen 60 mg/dL (9-20); Calcium 9.9 mg/dL (8.4-10.2); Carbon Dioxide 28 mmol/L (22-30); Chloride 99 mmol/L (98-107); Estimated CRCL calculation 7 ml/min; Estimated Glomerular Filt Rate 5; Glucose 129 mg/dL (65-110); Lipase 370 U/L (23-300); Potassium 4.4 mmol/L (3.4-5.0); Sodium 137 mmol/L (137-145)
[2024-09-17 06:42] LABS: Basophils Percent Auto 0.4 % (0.2-1.2); Eosinophils Absolute Auto 0.2 K/mm3 (0-0.3); Eosinophils Percent Auto 3.2 % (0-4.4); Hematocrit 29.3 % (42.0-52.0); Immature Granulocyte Absolute 0.03 K/mm3 (0.00-0.031); Immature Granulocyte Percent A 0.4 % (0-0.5); Lymphocytes Absolute Auto 0.95 K/mm3 (0.9-3.2); Lymphocytes Percent Auto 13.2 % (18.3-44.2); Mean Corpuscular HGB Conc 34.1 g/dl (32-36); Mean Corpuscular Hemoglobin 36.9 pg (26-34); Mean Corpuscular Volume 108.1 fl (80-100); Mean Platelet Volume 9.1 fl (7.4-10.4); Monocytes Absolute Auto 0.6 K/mm3 (0.1-0.6); Monocytes Percent Auto 8.8 % (2.6-8.5); Neutrophils Absolute Auto 5.3 K/mm3 (1.3-6.7); Platelet Count Result 250 k/mm3 (150-375); Red Blood Count 2.71 M/mm3 (4.6-6.20); Red Cell Distribution Width 14.6 % (11.5-14.5); White Blood Count 7.2 K/mm3 (4.5-10.0)
[2024-09-17 06:47] LABS: Troponin I 0.027 ng/mL (0.000-0.034)
[2024-09-17 07:07] LABS: Macrocytosis 1+ (NORMAL); Platelet Estimate Adequate (Adequate); Schistocytes None Seen; Spherocytes 1+; Stomatocytes 1+
--- NOTE | 2024-09-17 07:13 | ED_ITS ---
HPI - General Adult General Chief complaint: Arrhythmia/Palpitations Stated complaint: tachycardia Time Seen by Provider: 09/17/24 06:58 History of Present Illness HPI narrative: 63-year-old male presents to the emergency department for evaluation for rapid heart rate. Patient was at dialysis this morning when had onset of rapid heart rate. Patient does have history of AFib a flutter and patient does take metoprolol. Patient did not take his blood metoprolol dosing this morning and whe the patient went to dialysis he had rapid heart rate. Patient was sent to the emergency department for evaluation. Patient was treated with his morning medication of metoprolol along with an IV dose of Lopressor upon arrival to the emergency department. Patient denies any chest pain or shortness of breath. Patient denies any pain or complaints. Related Data Home Medications Medication Instructions Recorded Confirmed amlodipine 10 mg tablet 10 mg PO QAM 12/30/21 10/25/23 metoprolol succinate 100 mg 100 mg PO QAM 12/30/21 10/25/23 capsule sprinkle, ext. release 24 hr hydralazine 25 mg tablet 25 mg PO BID 10/31/22 10/25/23 cholecalciferol (vitamin D3) 75 75 mcg PO DAILY 10/25/23 10/25/23 mcg (3,000 unit) tablet Allergies Allergy/AdvReac Type Severity Reaction Status Date / Time No Known Allergies Allergy Verified 09/17/24 06:14 Review of Systems Review of Systems: All systems reviewed & are unremarkable except as noted in HPI and below PMFSH Past Medical History Medical History (Updated 09/17/24 @ 09:56 by Kar Mascorro MD) Acute on chronic renal failure ETOH abuse Hypertension Incarcerated ventral hernia Kidney stones Peripheral neuropathy Right renal mass Tobacco abuse Surgical History Surgical History H/O hernia repair H/O right nephrectomy H/O ventral hernia repair Incarcerated Ventral Hernia repair w poss mesh 05/10/22. Family History Family History Other Diabetes mellitus Family history of arthritis Family history of cardiovascular disease Family history of malignant neoplasm Hypertension Social History Social History Social History: Patient elects his brother Martin to be his surrogate. He has no kids or pets at this time. Patient wishes to be a full code. Smoking packs per day: 1 Smoking cigarettes per day: 20.0 Years smoked: 40 Smoking pack-years: 40.00 Smoking status: Current every day smoker Tobacco type: cigarettes Second hand tobacco smoke exposure: Yes Additional smoking assessment comments: STATES STARTING SMOKING AGE 13 Alcohol intake: current Drinks per week: 7 Alcohol use details: 4 oz vodka daily Substance use: former Substance use type: does not use Other substance usage details: drinks vodka every day Last use: 10/24/23 Do You Feel Safe in your Home?: Yes Lack of Transportation: No Lack of Food: Never True Current Housing: I Have Housing Concerned About Future Housing: No Difficulty Paying Gas/Electric Bills: No Difficulty Paying for Meds: No Currently Unemployed: No Education: High School Diploma/GED Difficulty w/ Childcare or Family Care: No Living arrangements: alone Occupation/Education: occupation Additional occupation/education comments: [employer] Gender identity (if verbalized by the patient): Male Sexual Orientation (if Verbalized by the Patient): Straight or Heterosexual Spiritual care concerns: No Agree to blood products: Yes Exam Narrative: APPEARANCE: Well appearing, no pain, no distress, well-nourished. HEAD: normocephalic, atraumatic. EYES: PERRLA/EOMI, conjunctivae clear. NOSE: Normal no drainage EARS:TMS clear with good light reflex. THROAT: Pharynx clear, no exudate. NECK: Supple. No adenopathy, no masses. RESPIRATORY: Airway patent, respirations nonlabored. Clear to auscultation bilaterally, no rales, rhonchi, wheezing. CARDIOVASCULAR: Regular rate and rhythm without murmurs rubs or gallops. ABDOMINAL: Soft, nontender, nondistended, normal bowel sounds MUSCULOSKELETAL: Moves all extremities. Strength/ROM intact, No edema, No calf tenderness. NEURO: Alert. Cranial nerves II through XII intact. Good gait. Good coordination SKIN: Warm, dry. Normal Color Course Course Emergency Course: Patient was symptom-free in the emergency department patient's heart rate was improved with treatment some medications. Vital Signs Vital signs: Vital Signs Temperature 97.9 F 09/17/24 06:09 Pulse Rate 140 H 09/17/24 06:09 Respiratory Rate 19 09/17/24 06:09 Blood Pressure 145/97 H 09/17/24 06:09 Pulse Oximetry 100 09/17/24 06:09 Oxygen Delivery Room Air 09/17/24 06:09 Temperature 97.9 F 09/17/24 06:09 Pulse Rate 101 H 09/17/24 10:01 Respiratory Rate 17 09/17/24 10:01 Blood Pressure 138/83 09/17/24 10:01 Pulse Oximetry 100 09/17/24 10:01 Oxygen Delivery Room Air 09/17/24 06:13 Medical Decision Making MDM Narrative Medical decision making narrative: 60-year-old male with history of AFib a flutter presents emergency department for evaluation for AFib with RVR. Patient was treated with his morning dose p.o. metoprolol and this did control the patient's heart rate. Patient is afebrile with no leukocytosis and hemoglobin of 10.0, patient has an INR of 1.2 with no acute abnormalities on his CMP patient's serial troponins were not elevated and patient has been pain-free the entire time emergency department. Chest x-ray shows no acute cardiopulmonary abnormality. Differential Diagnosis Differential Diagnosis: ACS, AFib, medication noncompliance, atrial flutter, CAD Vital Signs Vital Signs: Vital Signs Temperature 97.9 F 09/17/24 06:09 Pulse Rate 140 H 09/17/24 06:09 Respiratory Rate 19 09/17/24 06:09 Blood Pressure 145/97 H 09/17/24 06:09 Pulse Oximetry 100 09/17/24 06:09 Oxygen Delivery Room Air 09/17/24 06:09 Temperature 97.9 F 09/17/24 06:09 Pulse Rate 101 H 09/17/24 10:01 Respiratory Rate 17 09/17/24 10:01 Blood Pressure 138/83 09/17/24 10:01 Pulse Oximetry 100 09/17/24 10:01 Oxygen Delivery Room Air 09/17/24 06:13 Lab Data Lab results reviewed: Yes I reviewed the patient's lab results. 09/17/24 06:17 09/17/24 06:17 Labs: Lab Results 09/17/24 09/17/24 Range/Units 06:17 09:20 WBC 7.2 (4.5-10.0) K/mm3 RBC 2.71 L (4.6-6.20) M/mm3 Hgb 10.0 L (14.0-18.0) g/dL Hct 29.3 L (42.0-52.0) % MCV 108.1 H (80-100) fl MCH 36.9 H (26-34) pg MCHC 34.1 (32-36) g/dl RDW 14.6 H (11.5-14.5) % Plt Count 250 (150-375) k/mm3 MPV 9.1 (7.4-10.4) fl Immature Gran % (Auto) 0.4 (0-0.5) % Neut % (Auto) 74.0 H (45.5-73.1) % Lymph % (Auto) 13.2 L (18.3-44.2) % [place] % (Auto) 8.8 H (2.6-8.5) % Eos % (Auto) 3.2 (0-4.4) % Baso % (Auto) 0.4 (0.2-1.2) % Lymph # (Auto) 0.95 (0.9-3.2) K/mm3 [place] # (Auto) 0.6 (0.1-0.6) K/mm3 Eos # (Auto) 0.2 (0-0.3) K/mm3 Baso # (Auto) 0.0 (0.0-0.1) K/mm3 Abs Immat Gran (auto) 0.03 (0.00-0.031) K/mm3 Absolute Neuts (auto) 5.3 (1.3-6.7) K/mm3 Absolute Nucleated RBC 0.000 (0.0-0.012) K/mm3 Nucleated RBC % 0.0 (0.0-0.2) % Platelet Estimate Adequate (Adequate) Macrocytosis 1+ (NORMAL) Spherocytes 1+ Stomatocytes 1+ Schistocytes None seen PT 16.2 H (11.1-14.7) Seconds INR 1.2 APTT 30.7 (22.3-36.8) Seconds Sodium 137 (137-145) mmol/L Potassium 4.4 (3.4-5.0) mmol/L Chloride 99 (98-107) mmol/L Carbon Dioxide 28 (22-30) mmol/L Anion Gap 10 (4-12) mmol/L BUN 60 H D (9-20) mg/dL Creatinine 11.10 H (0.7-1.3) mg/dL Estim Creat Clear Calc 7 ml/min Estimated GFR 5 L (59 - ) Glucose 129 H (65-110) mg/dL Calcium 9.9 (8.4-10.2) mg/dL Total Bilirubin 0.6 (0.2-1.3) mg/dL AST 16 L (17-59) U/L ALT 14 (6-50) U/L Alkaline Phosphatase 77 (38-126) U/L Troponin I 0.027 0.034 D (0.000-0.034) ng/mL Total Protein 7.0 (6.3-8.2) g/dL Albumin 4.4 (3.5-5.1) g/dL Lipase 370 H (23-300) U/L Imaging Data Radiologist's impression: Impressions Chest X-Ray 09/17/24 06:38 Impression: Normal chest. ECG Data EKG #1: EKG Interpretation: normal rate, sinus rhythm, no ectopy, non-specific ST changes, normal QT and NL axis Discharge Plan Discharge Clinical Impression: Atrial fibrillation with rapid ventricular response Patient Disposition: Home, Self-Care Condition: Stable Instructions: Antibiotic Form, Atrial Flutter (DC) Additional Instructions: Take your metoprolol as directed in morning. If you have any worsening symptoms then please call or return to the emergency department. Prescriptions: No Action hydralazine 25 mg tablet 25 mg PO BID amlodipine 10 mg Tablet 10 mg PO QAM metoprolol succinate 100 mg Capsule,Radha,Er 24hr 100 mg PO QAM cholecalciferol (vitamin D3) 75 mcg (3,000 unit) Tablet 75 mcg PO DAILY pantoprazole 20 mg tablet,delayed release (DR/EC) 20 mg PO BID 28 Days Qty: 56 0RF furosemide 20 mg tablet 20 mg PO QAM Qty: 30 6RF sodium bicarbonate 650 mg tablet 650 mg PO BID Qty: 60 11RF Follow-up/Referrals: Eduardo,INGE Nielsen [Primary Care Provider] -
[2024-09-17] MEDS: METOPROLOL SUCCINATE EXT REL 100 MG TABCR PO (07:24)
--- NOTE | 2024-09-17 07:59 | PC.NURSE ---
Called lab about pts coags, Zoë states they are running.
[2024-09-17 08:00] LABS: INR 1.2; Prothrombin Time 16.2 Seconds (11.1-14.7)
[2024-09-17 08:04] LABS: Partial Thromboplastin Time 30.7 Seconds (22.3-36.8)
[2024-09-17] MEDS: METOPROLOL TARTRATE INJ 5 MG/5 ML VIAL IV PUSH (08:42)
--- NOTE | 2024-09-17 09:09 | ECG_ITS ---
Test Date: 2024-09-17 09:14:34 Measurements Intervals [place] Rate: 92 P: 163 PA: 183 QRS: -14 QRSD: 124 T: 50 QT: 360 QTc: 446 Interpretive Statements ATRIAL FLUTTER MODERATE INTRAVENTRICULAR CONDUCTION DELAY [110+ ms QRS DURATION] Compared to ECG 09/17/2024 06:05:03 RAPID VENTRICULAR RESPONSE NO LONGER PRESENT Electronically Signed On 09-17-2024 15:27:56 LYFT DRIVER by Dorothy James M.D.
[2024-09-17 09:48] LABS: Troponin I 0.034 ng/mL (0.000-0.034)
== END 2024-09-17 10:06 | disposition home or self-care (01) ==
PROVIDERS: Emergency Medicine; Emergency Provider Emergency Medicine; PCP Physician Assistant
DX: I48.20 Chronic atrial fibrillation, unspecified (principal); F17.210 Nicotine dependence, cigarettes, uncomplicated; I12.9 Hypertensive chronic kidney disease with stage 1 through stage 4 chronic kidney disease, or unspecified chronic kidney disease; N18.9 Chronic kidney disease, unspecified; Z87.442 Personal history of urinary calculi
CPT/HCPCS: 36415; 71046; 80053; 83690; 84484; 85025; 85610; 85730; 93005; 96374; 99284; A9270

== ENCOUNTER 2024-11-05 10:18 | Outpatient (CLI) | payer BC, SELFPAY ==
--- NOTE | ~2024-11-05 | PE_ITS ---
EXAMINATION: PET skull to mid thigh DATE: 11/05/2024 13:08 INDICATION: Renal cell carcinoma. TECHNIQUE: Blood glucose level was 74 mg/dL. 8.551 mCi of 18-fluorodeoxyglucose (18-FDG) was administ ered i.v. Low dose computed tomography (CT) images were acquired from the base of the brain to the pr oximal thighs for attenuation correction and anatomic localization. Automated exposure control was em ployed. Dose-length product (DLP) was 1037 mGy-cm. Positron emission tomography (PET) images were acq uired in the same distribution. COMPARISON: PET/CT 05/23/2023, CT chest, abdomen, and pelvis 09/03/2024, 02/27/24 FINDINGS: Head/neck: There are no pathologically enlarged lymph nodes. Chest: There are multiple nodules in the lungs measuring up to 12 mm in right lower lobe without incr eased activity. No pleural effusion. Cardiomegaly is noted. There are coronary artery calcifications. No pericardial effusion. There is mild mediastinal lymphadenopathy with maximum SUV of 4.2. There is bilateral gynecomastia. There is a small sliding hiatal hernia. Abdomen/pelvis/proximal thighs: The liver is normal. There are gallstones in the gallbladder, which i s normal in size. The spleen, pancreas, and right adrenal gland are normal. There is a 3.0 cm mass in left adrenal gland with maximum SUV of 6.0. There are changes of right nephrectomy. There are 2 ston es in left kidney measuring up to 11 mm. There is a 5.6 cm fusiform aneurysm of infrarenal aorta. The re is prominent fat in the inguinal canals that may be hernias. There is diverticulosis of the colon without evidence of diverticulitis. There are no dilated loops of bowel. The appendix is normal. Ther e are no pathologically enlarged lymph nodes. There is no free intraperitoneal fluid. There is no oss eous malignancy. IMPRESSION: 1. Pulmonary nodules, mild mediastinal lymphadenopathy, and left adrenal mass with worsening from 02/13 02/06, consistent with metastatic disease. 2. 5.6 cm fusiform aneurysm of infrarenal aorta. Surgical consultation is recommended. 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 SERVICE MANAGER IMPRESSION: 1. Pulmonary nodules, mild mediastinal lymphadenopathy, and left adrenal mass w ith worsening from 02/27/24, consistent with metastatic disease. 2. 5.6 cm fusiform aneurysm of infrarenal aorta. Surgical consultation is recom mended.
[2024-11-05 11:29] LABS: Glucose Point of Care 74 mg/dl (65-105)
--- OUTSIDE RECORDS SUMMARY | 2024-11-07 17:27 | XMS_ITS ---
Author Organization [facility] ([facility]) Address [address] [place] [id number] Care Team Providers Care Photographic Technician Name Role Phone Unavailable Unavailable Unavailable Allergies, Adverse Reactions, Alerts Allergy Name Allergy Type Status Severity Reaction(s) Onset Date Inactive Date Treating Clinician Comments No Known Allergies Allergy Active 2023-10 18:39:1 9 Medications Ordered Medication Name Filled Medication Name Start Date Stop Date Current Medication? Ordering Clinician Indication Dosage Frequency Signature (SIG) Comments Components calcitriol 10-28 17:23: 15 Yes [id number] Number of Repeats Allowed: Frequency: Three times a week Mircera 2023-10 19:55: 55 Yes [id number] Number of Repeats Allowed: Frequency: LAVON dosing, every two weeks Metoprolol Succinate 04-30 11:02: 08 Yes Number of Repeats Allowed: Frequency: One time a day Venofer 03-25 01:10: 08 Yes [id number] Number of Repeats Allowed: Frequency: One time a weekDosesO rdered: Maintenanc e Dose 50 Milligram Route: Intravenou s Eliquis 03-23 10:56: 18 Yes Number of Repeats Allowed: Frequency: Two times a day heparin sodium, porcine 11-10 06:00: 00 Yes [id number] Number of Repeats Allowed: Frequency: Every Dialysis TreatmentD osesOrdere d: Loading Dose 2000 Units 1:1000 Units/mLRo rosebud: Intravenou s heparin sodium, porcine 11-10 06:00: 00 Yes [id number] Number of Repeats Allowed: Frequency: Every Dialysis TreatmentD osesOrdere d: Hourly Dose 1000 Units/Hr 1:1000 Units/mLRo rosebud: Intravenou s clonidine 11-09 21:34: 12 Yes [id number] Number of Repeats Allowed: Frequency: Every 4 hours as needed clonidine 11-09 21:33: 54 Yes [id number] Number of Repeats Allowed: Frequency: Every 4 hours as needed Oxygen 11-06 18:32: 18 Yes [id number] Number of Repeats Allowed: Frequency: As needed ondansetron hydrochlori de 11-06 18:32: 09 Yes [id number] Number of Repeats Allowed: Frequency: Every 4 hours as needed diphenhydra mine hydrochlori de 11-06 18:31: 45 Yes [id number] Number of Repeats Allowed: Frequency: Every 4 hours as needed diphenhydra mine hydrochlori de 11-06 18:31: 28 Yes [id number] Number of Repeats Allowed: Frequency: Every 4 hours as needed acetaminoph en 11-06 18:30: 00 Yes [id number] Number of Repeats Allowed: Frequency: Every 4 hours as needed Sodium Bicarbonate 10-31 06:00: 00 Yes Number of Repeats Allowed: Frequency: Two times a day hydrALAZINE HCl 10-31 06:00: 00 Yes Number of Repeats Allowed: Frequency: Two times a day Furosemide 10-21 06:00: 00 Yes Number of Repeats Allowed: Frequency: Every morning amLODIPine Besylate 10-20 06:00: 00 Yes Number of Repeats Allowed: Frequency: One time a day Problems This patient has no known problems. Procedures Procedure Date / Time Performed Performing Clinician Steff ce Details AV Fistula 2023-06-16 05:00:00 Access Site Forearm (Right) Access Use Start Date 2023-11-07 00:00:0 0 DIALYSIS TREATMENT INFORMATION Conventional Hemodialysis Date Type Treatment Start Date Treatment End Date Pre-Treatment Vitals Post-Treatment Vitals Weight Gain BFR DFR Actual UF Dialysis Access 2024 In-Ce nter Hemod ialys is Treat ment 2024-11-07 T11:40:00. 000Z 2024-11-07 T15:12:04. 000Z BP Sitting (Pre-Dialysis) 142/79 mmHg BP Sitting (Post-D ialysis ) 147/ 84 mmHg BP Standing (Pre-Dialysis) 149/93 mmHg Sitti ng Heart Rate Post-Dialysis 97 BPM Sitting Heart Rate Pre-Dialysis 92 BPM Temperatu re Post-Dialysis 98.7 degF Standing Heart Rate Pre-Dialysis 92 BPM Temperature Pre-Dialysis 97.4 degF November 05, 2024 In-Center Hemodialysis Treatment 3592-44-91X97:43:47.000Z 2516-54-03O99:16:42.000Z BP Sitting (Pre-Dialysis) 152/83 mmHg BP Sitting (Post-Dialysis) 136/85 mmHg Concurrent Access: falseAV Fistula Forearm (Right) Arterial BP Standing (Pre-Dialysis) 167/94 mmHg Sitti ng Heart Rate Post-Dialysis 90 BPM Sitting Heart Rate Pre-Dialysis 70 BPM Temperatu re Post-Dialysis 97.7 degF Standing Heart Rate Pre-Dialysis 87 BPM Temperature Pre-Dialysis 98 degF November 02, 2024 In-Center Hemodialysis Treatment 8007-09-21K44:41:00.000Z 9362-96-77R74:14:10.000Z BP Sitting (Pre-Dialysis) 146/90 mmHg BP Sitting (Post-Dialysis) 121/85 mmHg Concurrent Access: falseAV Fistula Forearm (Right) Arterial BP Standing (Pre-Dialysis) 156/84 mmHg BP Standing (P ost-Dialysis) 118/73 mmHg Sitting Heart Rate Pre-Dialysis 138 BPM Sitting Heart Rate Post-Dialysis 99 BPM Standing Heart Rate Pre-Dialysis 92 BPM Standing Heart Rate Post-Dialysis 92 BPM Temperature Pre-Dialysis 98.1 degF Temperature Post -Dialysis 97.4 degF 2024 In-Center Hemodialysis Treatment 2604-40-30J35:37:00.000Z 6901-00-47A29:13:10.000Z BP Sitting (Pre-Dialysis) 169/91 mmHg BP Sitting (Post-Dialysis) 112/66 mmHg Concurrent Access: falseAV Fistula Forearm (Right) Arterial BP Standing (Pre-Dialysis) 174/116 mmHg BP Standing (P ost-Dialysis) 119/54 mmHg Sitting Heart Rate Pre-Dialysis 93 BPM Sitting Heart Rate Post-Dialysis 84 BPM Standing Heart Rate Pre-Dialysis 100 BPM Standing Heart Rate Post-Dialysis 116 BPM Temperature Pre-Dialysis 98.2 degF Temperature Post -Dialysis 98.1 degF October 29, 2024 In-Center Hemodialysis Treatment 3529-40-03X17:37:00.000Z 4447-43-51W56:08:59.000Z BP Sitting (Pre-Dialysis) 167/81 mmHg BP Sitting (Post-Dialysis) 108/73 mmHg Concurrent Access: falseAV Fistula Forearm (Right) Arterial BP Standing (Pre-Dialysis) 158/80 mmHg BP Standing (P ost-Dialysis) 127/68 mmHg Sitting Heart Rate Pre-Dialysis 84 BPM Sitting Heart Rate Post-Dialysis 73 BPM Standing Heart Rate Pre-Dialysis 90 BPM Standing Heart Rate Post-Dialysis 80 BPM Temperature Pre-Dialysis 96.7 degF Temperature Post -Dialysis 98 degF October 26, 2024 In-Center Hemodialysis Treatment 1804-14-03S85:37:33.000Z 9837-63-98T38:15:53.000Z BP Sitting (Pre-Dialysis) 154/97 mmHg BP Sitting (Post-Dialysis) 142/78 mmHg Concurrent Access: falseAV Fistula Forearm (Right) Arterial BP Standing (Pre-Dialysis) 188/97 mmHg BP Standing (P ost-Dialysis) 159/80 mmHg Sitting Heart Rate Pre-Dialysis 72 BPM Sitting Heart Rate Post-Dialysis 81 BPM Standing Heart Rate Pre-Dialysis 90 BPM Standing Heart Rate Post-Dialysis 84 BPM Temperature Pre-Dialysis 97.6 degF Temperature Post -Dialysis 98 degF October 24, 2024 In-Center Hemodialysis Treatment 8543-47-40K93:42:00.000Z 5530-12-87Y25:17:12.000Z BP Sitting (Pre-Dialysis) 181/104 mmHg BP Sitting (Post-Dialysis) 184/114 mmHg Concurrent Access: falseAV Fistula Forearm (Right) Arterial BP Standing (Pre-Dialysis) 172/111 mmHg BP Standing (P ost-Dialysis) 136/79 mmHg Sitting Heart Rate Pre-Dialysis 136 BPM Sitting Heart Rate Post-Dialysis 142 BPM Standing Heart Rate Pre-Dialysis 137 BPM Standing Heart Rate Post-Dialysis 144 BPM Temperature Pre-Dialysis 96.7 degF Temperature Post -Dialysis 96 degF October 19, 2024 In-Center Hemodialysis Treatment 0044-32-51E46:36:58.000Z 0038-30-24M49:06:58.000Z BP Sitting (Pre-Dialysis) 187/112 mmHg BP Sitting (Post-Dialysis) 169/101 mmHg Concurrent Access: falseAV Fistula Forearm (Right) Arterial BP Standing (Pre-Dialysis) 194/118 mmHg Sitti ng Heart Rate Post-Dialysis 87 BPM Sitting Heart Rate Pre-Dialysis 115 BPM Temperatu re Post-Dialysis 98 degF Standing Heart Rate Pre-Dialysis 115 BPM Temperature Pre-Dialysis 98 degF October 17, 2024 In-Center Hemodialysis Treatment 0619-61-26Z59:36:00.000Z 6112-11-74O87:09:00.000Z BP Sitting (Pre-Dialysis) 206/112 mmHg BP Sitting (Post-Dialysis) 160/89 mmHg Concurrent Access: falseAV Fistula Forearm (Right) Arterial BP Standing (Pre-Dialysis) 191/112 mmHg Sitti ng Heart Rate Post-Dialysis 55 BPM Sitting Heart Rate Pre-Dialysis 85 BPM Temperatu re Post-Dialysis 98 degF Standing Heart Rate Pre-Dialysis 102 BPM Temperature Pre-Dialysis 97.5 degF October 14, 2024 In-Center Hemodialysis Treatment 4694-14-28L91:36:00.000Z 9606-32-12X78:06:00.000Z BP Sitting (Pre-Dialysis) 153/91 mmHg BP Sitting (Post-Dialysis) 134/87 mmHg Concurrent Access: falseAV Fistula Forearm (Right) Arterial BP Standing (Pre-Dialysis) 155/89 mmHg BP Standing (P ost-Dialysis) 144/84 mmHg Sitting Heart Rate Pre-Dialysis 97 BPM Sitting Heart Rate Post-Dialysis 76 BPM Standing Heart Rate Pre-Dialysis 89 BPM Standing Heart Rate Post-Dialysis 68 BPM Temperature Pre-Dialysis 98.1 degF Temperature Post -Dialysis 98 degF October 12, 2024 In-Center Hemodialysis Treatment 8514-32-44L91:40:00.000Z 8842-53-94S76:06:22.000Z BP Sitting (Pre-Dialysis) 173/95 mmHg BP Sitting (Post-Dialysis) 149/88 mmHg Concurrent Access: falseAV Fistula Forearm (Right) Arterial BP Standing (Pre-Dialysis) 174/107 mmHg BP Standing (P ost-Dialysis) 171/91 mmHg Sitting Heart Rate Pre-Dialysis 88 BPM Sitting Heart Rate Post-Dialysis 76 BPM Standing Heart Rate Pre-Dialysis 92 BPM Standing Heart Rate Post-Dialysis 78 BPM Temperature Pre-Dialysis 97.3 degF Temperature Post -Dialysis 98.4 degF October 10, 2024 In-Center Hemodialysis Treatment 3179-81-90C49:37:15.000Z 5600-47-89W84:07:15.000Z BP Sitting (Pre-Dialysis) 168/85 mmHg BP Sitting (Post-Dialysis) 117/75 mmHg Concurrent Access: falseAV Fistula Forearm (Right) Arterial BP Standing (Pre-Dialysis) 143/85 mmHg BP Standing (P ost-Dialysis) 148/80 mmHg Sitting Heart Rate Pre-Dialysis 84 BPM Sitting Heart Rate Post-Dialysis 69 BPM Standing Heart Rate Pre-Dialysis 93 BPM Standing Heart Rate Post-Dialysis 49 BPM Temperature Pre-Dialysis 98.4 degF Temperature Post -Dialysis 97.7 degF October 07, 2024 In-Center Hemodialysis Treatment 0663-34-52X31:32:00.000Z 2489-48-60U01:10:16.000Z BP Sitting (Pre-Dialysis) 161/95 mmHg BP Sitting (Post-Dialysis) 133/77 mmHg Concurrent Access: falseAV Fistula Forearm (Right) Arterial BP Standing (Pre-Dialysis) 164/103 mmHg Sitti ng Heart Rate Post-Dialysis 69 BPM Sitting Heart Rate Pre-Dialysis 90 BPM Temperatu re Post-Dialysis 97.6 degF Standing Heart Rate Pre-Dialysis 79 BPM Temperature Pre-Dialysis 98.3 degF October 05, 2024 In-Center Hemodialysis Treatment 5644-71-03N89:37:00.000Z 5881-12-30E16:08:35.000Z BP Sitting (Pre-Dialysis) 188/107 mmHg BP Sitting (Post-Dialysis) 123/74 mmHg Concurrent Access: falseAV Fistula Forearm (Right) Arterial BP Standing (Pre-Dialysis) 183/99 mmHg Sitti ng Heart Rate Post-Dialysis 85 BPM Sitting Heart Rate Pre-Dialysis 89 BPM Temperatu re Post-Dialysis 98.3 degF Standing Heart Rate Pre-Dialysis 91 BPM Temperature Pre-Dialysis 97.6 degF October 03, 2024 In-Center Hemodialysis Treatment 4579-52-23I94:31:00.000Z 6680-71-20Q92:04:51.000Z BP Sitting (Pre-Dialysis) 152/104 mmHg BP Sitting (Post-Dialysis) 129/69 mmHg Concurrent Access: falseAV Fistula Forearm (Right) Arterial BP Standing (Pre-Dialysis) 175/99 mmHg BP Standing (P ost-Dialysis) 140/78 mmHg Sitting Heart Rate Pre-Dialysis 76 BPM Sitting Heart Rate Post-Dialysis 50 BPM Standing Heart Rate Pre-Dialysis 93 BPM Standing Heart Rate Post-Dialysis 47 BPM Temperature Pre-Dialysis 98.5 degF Temperature Post -Dialysis 98.5 degF October 01, 2024 In-Center Hemodialysis Treatment 7653-26-71V23:41:52.000Z 8931-06-91U87:06:52.000Z BP Sitting (Pre-Dialysis) 163/92 mmHg BP Sitting (Post-Dialysis) 122/70 mmHg Concurrent Access: falseAV Fistula Forearm (Right) Arterial BP Standing (Pre-Dialysis) 150/85 mmHg BP Standing (P ost-Dialysis) 119/70 mmHg Sitting Heart Rate Pre-Dialysis 96 BPM Sitting Heart Rate Post-Dialysis 89 BPM Standing Heart Rate Pre-Dialysis 98 BPM Standing Heart Rate Post-Dialysis 79 BPM Temperature Pre-Dialysis 98.1 degF Temperature Post -Dialysis 98 degF September 28, 2024 In-Center Hemodialysis Treatment 4012-62-69T86:35:00.000Z 1692-30-84O73:09:40.000Z BP Sitting (Pre-Dialysis) 143/82 mmHg BP Sitting (Post-Dialysis) 108/66 mmHg Concurrent Access: falseAV Fistula Forearm (Right) Arterial BP Standing (Pre-Dialysis) 165/93 mmHg BP Standing (P ost-Dialysis) 121/72 mmHg Sitting Heart Rate Pre-Dialysis 85 BPM Sitting Heart Rate Post-Dialysis 70 BPM Standing Heart Rate Pre-Dialysis 92 BPM Standing Heart Rate Post-Dialysis 69 BPM Temperature Pre-Dialysis 98.4 degF Temperature Post -Dialysis 97.3 degF September 26, 2024 In-Center Hemodialysis Treatment 4615-98-22U96:30:00.000Z 0801-46-69N28:02:44.000Z BP Sitting (Pre-Dialysis) 150/81 mmHg BP Sitting (Post-Dialysis) 129/99 mmHg Concurrent Access: falseAV Fistula Forearm (Right) Arterial BP Standing (Pre-Dialysis) 163/103 mmHg BP Standing (P ost-Dialysis) 158/85 mmHg Sitting Heart Rate Pre-Dialysis 76 BPM Sitting Heart Rate Post-Dialysis 78 BPM Standing Heart Rate Pre-Dialysis 74 BPM Standing Heart Rate Post-Dialysis 71 BPM Temperature Pre-Dialysis 98 degF Temperature Post -Dialysis 97.8 degF September 24, 2024 In-Center Hemodialysis Treatment 7213-19-14U89:29:00.000Z 3545-85-36H23:02:51.000Z BP Sitting (Pre-Dialysis) 149/79 mmHg BP Sitting (Post-Dialysis) 127/69 mmHg Concurrent Access: falseAV Fistula Forearm (Right) Arterial BP Standing (Pre-Dialysis) 150/86 mmHg BP Standing (P ost-Dialysis) 144/92 mmHg Sitting Heart Rate Pre-Dialysis 82 BPM Sitting Heart Rate Post-Dialysis 70 BPM Standing Heart Rate Pre-Dialysis 85 BPM Standing Heart Rate Post-Dialysis 56 BPM Temperature Pre-Dialysis 97.6 degF Temperature Post -Dialysis 97.9 degF September 21, 2024 In-Center Hemodialysis Treatment 1314-09-44L81:35:00.000Z 8334-32-37I78:06:33.000Z BP Sitting (Pre-Dialysis) 146/78 mmHg BP Sitting (Post-Dialysis) 135/81 mmHg Concurrent Access: falseAV Fistula Forearm (Right) Arterial BP Standing (Pre-Dialysis) 154/80 mmHg BP Standing (P ost-Dialysis) 122/73 mmHg Sitting Heart Rate Pre-Dialysis 69 BPM Sitting Heart Rate Post-Dialysis 69 BPM Standing Heart Rate Pre-Dialysis 69 BPM Standing Heart Rate Post-Dialysis 68 BPM Temperature Pre-Dialysis 98 degF Temperature Post -Dialysis 97.6 degF September 19, 2024 In-Center Hemodialysis Treatment 0011-95-64Q21:40:00.000Z 3332-06-38D53:16:10.000Z BP Sitting (Pre-Dialysis) 129/82 mmHg BP Sitting (Post-Dialysis) 123/78 mmHg Concurrent Access: falseAV Fistula Forearm (Right) Arterial BP Standing (Pre-Dialysis) 154/81 mmHg BP Standing (P ost-Dialysis) 124/69 mmHg Sitting Heart Rate Pre-Dialysis 107 BPM Sitting Heart Rate Post-Dialysis 70 BPM Standing Heart Rate Pre-Dialysis 102 BPM Standing Heart Rate Post-Dialysis 63 BPM Temperature Pre-Dialysis 97.7 degF Temperature Post -Dialysis 97.8 degF September 17, 2024 In-Center Hemodialysis Treatment BP Sitting (Pre-Dialysis) 151/85 mmHg Concurrent Access: false BP Standing (Pre-Dialysis) 131/82 mmHg Sitting Heart Rate Pre-Dialysis 140 BPM Standing Heart Rate Pre-Dialysis 142 BPM Temperature Pre-Dialysis 98.8 degF September 14, 2024 In-Center Hemodialysis Treatment 6901-52-24Z83:33:00.000Z 2771-58-17C49:07:20.000Z BP Sitting (Pre-Dialysis) 150/83 mmHg BP Sitting (Post-Dialysis) 136/74 mmHg Concurrent Access: falseAV Fistula Forearm (Right) Arterial BP Standing (Pre-Dialysis) 158/94 mmHg Sitti ng Heart Rate Post-Dialysis 46 BPM Sitting Heart Rate Pre-Dialysis 90 BPM Temperatu re Post-Dialysis 98.3 degF Standing Heart Rate Pre-Dialysis 93 BPM Temperature Pre-Dialysis 98.3 degF September 11, 2024 In-Center Hemodialysis Treatment 2166-30-97U12:32:00.000Z 9755-03-35S55:03:05.000Z BP Sitting (Pre-Dialysis) 141/70 mmHg BP Sitting (Post-Dialysis) 112/73 mmHg Concurrent Access: falseAV Fistula Forearm (Right) Arterial BP Standing (Pre-Dialysis) 127/72 mmHg BP Standing (P ost-Dialysis) 123/70 mmHg Sitting Heart Rate Pre-Dialysis 110 BPM Sitting Heart Rate Post-Dialysis 69 BPM Standing Heart Rate Pre-Dialysis 117 BPM Standing Heart Rate Post-Dialysis 68 BPM Temperature Pre-Dialysis 98 degF Temperature Post -Dialysis 97.3 degF September 09, 2024 In-Center Hemodialysis Treatment 8217-54-20Y59:33:00.000Z 2639-23-73A91:05:35.000Z BP Sitting (Pre-Dialysis) 135/80 mmHg BP Sitting (Post-Dialysis) 113/73 mmHg Concurrent Access: falseAV Fistula Forearm (Right) Arterial BP Standing (Pre-Dialysis) 139/76 mmHg BP Standing (P ost-Dialysis) 128/80 mmHg Sitting Heart Rate Pre-Dialysis 89 BPM Sitting Heart Rate Post-Dialysis 69 BPM Standing Heart Rate Pre-Dialysis 89 BPM Standing Heart Rate Post-Dialysis 68 BPM Temperature Pre-Dialysis 98.1 degF Temperature Post -Dialysis 96.8 degF September 07, 2024 In-Center Hemodialysis Treatment 8521-81-56H09:41:20.000Z 8735-87-25H70:11:20.000Z BP Sitting (Pre-Dialysis) 130/43 mmHg BP Sitting (Post-Dialysis) 130/83 mmHg Concurrent Access: falseAV Fistula Forearm (Right) Arterial BP Standing (Pre-Dialysis) 127/81 mmHg BP Standing (P ost-Dialysis) 145/75 mmHg Sitting Heart Rate Pre-Dialysis 73 BPM Sitting Heart Rate Post-Dialysis 67 BPM Standing Heart Rate Pre-Dialysis 85 BPM Standing Heart Rate Post-Dialysis 67 BPM Temperature Pre-Dialysis 98 degF Temperature Post -Dialysis 98 degF September 05, 2024 In-Center Hemodialysis Treatment 4990-43-43B21:37:00.000Z 6718-54-91V07:07:29.000Z BP Sitting (Pre-Dialysis) 104/59 mmHg BP Sitting (Post-Dialysis) 109/75 mmHg Concurrent Access: falseAV Fistula Forearm (Right) Arterial BP Standing (Pre-Dialysis) 124/65 mmHg BP Standing (P ost-Dialysis) 127/82 mmHg Sitting Heart Rate Pre-Dialysis 63 BPM Sitting Heart Rate Post-Dialysis 68 BPM Standing Heart Rate Pre-Dialysis 63 BPM Standing Heart Rate Post-Dialysis 68 BPM Temperature Pre-Dialysis 97.3 degF Temperature Post -Dialysis 97.4 degF September 03, 2024 In-Center Hemodialysis Treatment 6167-02-37R21:44:00.000Z 6001-47-91C85:16:30.000Z BP Sitting (Pre-Dialysis) 117/68 mmHg BP Sitting (Post-Dialysis) 122/70 mmHg Concurrent Access: falseAV Fistula Forearm (Right) Arterial BP Standing (Pre-Dialysis) 131/74 mmHg Sitti ng Heart Rate Post-Dialysis 68 BPM Sitting Heart Rate Pre-Dialysis 72 BPM Temperatu re Post-Dialysis 97.6 degF Standing Heart Rate Pre-Dialysis 82 BPM Temperature Pre-Dialysis 97.2 degF August 31, 2024 In-Center Hemodialysis Treatment 8821-29-13I09:39:00.000Z 1398-47-26E85:09:33.000Z BP Sitting (Pre-Dialysis) 141/81 mmHg BP Sitting (Post-Dialysis) 124/82 mmHg Concurrent Access: falseAV Fistula Forearm (Right) Arterial BP Standing (Pre-Dialysis) 152/89 mmHg Sitti ng Heart Rate Post-Dialysis 68 BPM Sitting Heart Rate Pre-Dialysis 89 BPM Temperatu re Post-Dialysis 97.7 degF Standing Heart Rate Pre-Dialysis 88 BPM Temperature Pre-Dialysis 97.6 degF August 29, 2024 In-Center Hemodialysis Treatment 2490-46-81W02:35:00.000Z 7518-36-92V65:06:15.000Z BP Sitting (Pre-Dialysis) 145/85 mmHg BP Sitting (Post-Dialysis) 111/78 mmHg Concurrent Access: falseAV Fistula Forearm (Right) Arterial BP Standing (Pre-Dialysis) 140/78 mmHg BP Standing (P ost-Dialysis) 122/76 mmHg Sitting Heart Rate Pre-Dialysis 80 BPM Sitting Heart Rate Post-Dialysis 67 BPM Standing Heart Rate Pre-Dialysis 86 BPM Standing Heart Rate Post-Dialysis 64 BPM Temperature Pre-Dialysis 97.5 degF Temperature Post -Dialysis 97.2 degF August 27, 2024 In-Center Hemodialysis Treatment 5251-35-25G55:31:00.000Z 2240-03-94H23:08:57.000Z BP Sitting (Pre-Dialysis) 162/83 mmHg BP Sitting (Post-Dialysis) 124/74 mmHg Concurrent Access: falseAV Fistula Forearm (Right) Arterial BP Standing (Pre-Dialysis) 173/100 mmHg BP Standing (P ost-Dialysis) 118/74 mmHg Sitting Heart Rate Pre-Dialysis 78 BPM Sitting Heart Rate Post-Dialysis 68 BPM Standing Heart Rate Pre-Dialysis 89 BPM Standing Heart Rate Post-Dialysis 56 BPM Temperature Pre-Dialysis 98 degF Temperature Post -Dialysis 97.4 degF August 24, 2024 In-Center Hemodialysis Treatment 1465-66-49S86:29:11.000Z 1999-41-70U43:07:56.000Z BP Sitting (Pre-Dialysis) 135/70 mmHg BP Sitting (Post-Dialysis) 113/58 mmHg Concurrent Access: falseAV Fistula Forearm (Right) Arterial BP Standing (Pre-Dialysis) 132/85 mmHg BP Standing (P ost-Dialysis) 94/50 mmHg Sitting Heart Rate Pre-Dialysis 93 BPM Sitting Heart Rate Post-Dialysis 56 BPM Standing Heart Rate Pre-Dialysis 110 BPM Standing Heart Rate Post-Dialysis 60 BPM Temperature Pre-Dialysis 98 degF Temperature Post -Dialysis 97.7 degF August 22, 2024 In-Center Hemodialysis Treatment 6692-57-17W66:45:28.000Z 6698-21-24U41:12:33.000Z BP Sitting (Pre-Dialysis) 143/81 mmHg BP Sitting (Post-Dialysis) 101/73 mmHg Concurrent Access: falseAV Fistula Forearm (Right) Arterial BP Standing (Pre-Dialysis) 158/101 mmHg BP Standing (P ost-Dialysis) 108/68 mmHg Sitting Heart Rate Pre-Dialysis 77 BPM Sitting Heart Rate Post-Dialysis 78 BPM Standing Heart Rate Pre-Dialysis 81 BPM Standing Heart Rate Post-Dialysis 82 BPM Temperature Pre-Dialysis 97.7 degF Temperature Post -Dialysis 97.1 degF August 20, 2024 In-Center Hemodialysis Treatment 4094-12-24J54:51:00.000Z 5130-91-79A50:22:44.000Z BP Sitting (Pre-Dialysis) 152/82 mmHg BP Sitting (Post-Dialysis) 109/67 mmHg Concurrent Access: falseAV Fistula Forearm (Right) Arterial BP Standing (Pre-Dialysis) 135/80 mmHg BP Standing (P ost-Dialysis) 123/74 mmHg Sitting Heart Rate Pre-Dialysis 100 BPM Sitting Heart Rate Post-Dialysis 51 BPM Standing Heart Rate Pre-Dialysis 93 BPM Standing Heart Rate Post-Dialysis 74 BPM Temperature Pre-Dialysis 97.6 degF Temperature Post -Dialysis 97 degF August 17, 2024 In-Center Hemodialysis Treatment 5673-53-11Q31:31:00.000Z 5021-86-60E22:05:28.000Z BP Sitting (Pre-Dialysis) 162/91 mmHg BP Sitting (Post-Dialysis) 148/64 mmHg Concurrent Access: falseAV Fistula Forearm (Right) Arterial BP Standing (Pre-Dialysis) 173/96 mmHg BP Standing (P ost-Dialysis) 143/77 mmHg Sitting Heart Rate Pre-Dialysis 97 BPM Sitting Heart Rate Post-Dialysis 66 BPM Standing Heart Rate Pre-Dialysis 94 BPM Standing Heart Rate Post-Dialysis 69 BPM Temperature Pre-Dialysis 98.2 degF Temperature Post -Dialysis 97.6 degF August 15, 2024 In-Center Hemodialysis Treatment 7160-54-00C70:40:00.000Z 2334-13-57T18:14:03.000Z BP Sitting (Pre-Dialysis) 133/83 mmHg BP Sitting (Post-Dialysis) 123/53 mmHg Concurrent Access: falseAV Fistula Forearm (Right) Arterial BP Standing (Pre-Dialysis) 133/80 mmHg BP Standing (P ost-Dialysis) 126/75 mmHg Sitting Heart Rate Pre-Dialysis 94 BPM Sitting Heart Rate Post-Dialysis 63 BPM Standing Heart Rate Pre-Dialysis 95 BPM Standing Heart Rate Post-Dialysis 46 BPM Temperature Pre-Dialysis 98 degF Temperature Post -Dialysis 97.4 degF August 13, 2024 In-Center Hemodialysis Treatment 9363-63-89J84:40:24.000Z 1492-28-78S60:10:24.000Z BP Sitting (Pre-Dialysis) 159/81 mmHg BP Sitting (Post-Dialysis) 110/75 mmHg Concurrent Access: falseAV Fistula Forearm (Right) Arterial BP Standing (Pre-Dialysis) 166/100 mmHg BP Standing (P ost-Dialysis) 130/71 mmHg Sitting Heart Rate Pre-Dialysis 88 BPM Sitting Heart Rate Post-Dialysis 71 BPM Standing Heart Rate Pre-Dialysis 118 BPM Standing Heart Rate Post-Dialysis 70 BPM Temperature Pre-Dialysis 97.2 degF Temperature Post -Dialysis 98 degF August 10, 2024 In-Center Hemodialysis Treatment 2468-90-03X03:42:37.000Z 9324-26-10Y54:12:37.000Z BP Sitting (Pre-Dialysis) 149/94 mmHg BP Sitting (Post-Dialysis) 122/86 mmHg Concurrent Access: falseAV Fistula Forearm (Right) Arterial BP Standing (Pre-Dialysis) 158/101 mmHg BP Standing (P ost-Dialysis) 133/81 mmHg Sitting Heart Rate Pre-Dialysis 83 BPM Sitting Heart Rate Post-Dialysis 71 BPM Standing Heart Rate Pre-Dialysis 92 BPM Standing Heart Rate Post-Dialysis 69 BPM Temperature Pre-Dialysis 97.2 degF Temperature Post -Dialysis 97.6 degF August 08, 2024 In-Center Hemodialysis Treatment 4343-49-51K31:45:05.000Z 4823-77-65Y74:19:15.000Z BP Sitting (Pre-Dialysis) 144/89 mmHg BP Sitting (Post-Dialysis) 110/70 mmHg Concurrent Access: falseAV Fistula Forearm (Right) Arterial BP Standing (Pre-Dialysis) 141/87 mmHg BP Standing (P ost-Dialysis) 113/73 mmHg Sitting Heart Rate Pre-Dialysis 95 BPM Sitting Heart Rate Post-Dialysis 47 BPM Standing Heart Rate Pre-Dialysis 96 BPM Standing Heart Rate Post-Dialysis 75 BPM Temperature Pre-Dialysis 97.8 degF Temperature Post -Dialysis 97.4 degF August 06, 2024 In-Center Hemodialysis Treatment 9265-33-92H57:39:00.000Z 8590-36-48S69:09:09.000Z BP Sitting (Pre-Dialysis) 147/86 mmHg BP Sitting (Post-Dialysis) 142/82 mmHg Concurrent Access: falseAV Fistula Forearm (Right) Arterial BP Standing (Pre-Dialysis) 165/111 mmHg BP Standing (P ost-Dialysis) 143/81 mmHg Sitting Heart Rate Pre-Dialysis 68 BPM Sitting Heart Rate Post-Dialysis 75 BPM Standing Heart Rate Pre-Dialysis 132 BPM Standing Heart Rate Post-Dialysis 47 BPM Temperature Pre-Dialysis 97.2 degF Temperature Post -Dialysis 97.2 degF August 03, 2024 In-Center Hemodialysis Treatment [id number]:38:57.000Z [id number]:08:57.000Z BP Sitting (Pre-Dialysis) 130/88 mmHg BP Sitting (Post-Dialysis) 115/71 mmHg Concurrent Access: falseAV Fistula Forearm (Right) Arterial BP Standing (Pre-Dialysis) 120/91 mmHg BP Standing (P ost-Dialysis) 125/67 mmHg Sitting Heart Rate Pre-Dialysis 80 BPM Sitting Heart Rate Post-Dialysis 75 BPM Standing Heart Rate Pre-Dialysis 87 BPM Standing Heart Rate Post-Dialysis 58 BPM Temperature Pre-Dialysis 97.5 degF Temperature Post -Dialysis 98.1 degF August 01, 2024 In-Center Hemodialysis Treatment [id number]:35:11.000Z [id number]:04:21.000Z BP Sitting (Pre-Dialysis) 118/79 mmHg BP Sitting (Post-Dialysis) 106/69 mmHg Concurrent Access: falseAV Fistula Forearm (Right) Arterial BP Standing (Pre-Dialysis) 129/86 mmHg BP Standing (P ost-Dialysis) 106/50 mmHg Sitting Heart Rate Pre-Dialysis 106 BPM Sitting Heart Rate Post-Dialysis 69 BPM Standing Heart Rate Pre-Dialysis 93 BPM Standing Heart Rate Post-Dialysis 49 BPM Temperature Pre-Dialysis 97.2 degF Temperature Post -Dialysis 97.3 degF July 30, 2024 In-Center Hemodialysis Treatment [id number]:39:48.000Z [id number]:06:28.000Z BP Sitting (Pre-Dialysis) 155/95 mmHg BP Sitting (Post-Dialysis) 106/56 mmHg Concurrent Access: falseAV Fistula Forearm (Right) Arterial BP Standing (Pre-Dialysis) 161/103 mmHg BP Standing (P ost-Dialysis) 114/73 mmHg Sitting Heart Rate Pre-Dialysis 130 BPM Sitting Heart Rate Post-Dialysis 54 BPM Standing Heart Rate Pre-Dialysis 128 BPM Standing Heart Rate Post-Dialysis 58 BPM Temperature Pre-Dialysis 97.4 degF Temperature Post -Dialysis 97.5 degF July 27, 2024 In-Center Hemodialysis Treatment [id number]:36:00.000Z 1933-34-27M89:40:15.000Z BP Sitting (Pre-Dialysis) 129/79 mmHg BP Sitting (Post-Dialysis) 103/61 mmHg Concurrent Access: falseAV Fistula Forearm (Right) Arterial BP Standing (Pre-Dialysis) 154/94 mmHg BP Standing (P ost-Dialysis) 122/61 mmHg Sitting Heart Rate Pre-Dialysis 86 BPM Sitting Heart Rate Post-Dialysis 46 BPM Standing Heart Rate Pre-Dialysis 94 BPM Standing Heart Rate Post-Dialysis 50 BPM Temperature Pre-Dialysis 97.9 degF Temperature Post -Dialysis 97.2 degF July 25, 2024 In-Center Hemodialysis Treatment [id number]:34:24.000Z [id number]:07:44.000Z BP Sitting (Pre-Dialysis) 116/72 mmHg BP Sitting (Post-Dialysis) 101/64 mmHg Concurrent Access: falseAV Fistula Forearm (Right) Arterial BP Standing (Pre-Dialysis) 132/83 mmHg BP Standing (P ost-Dialysis) 107/71 mmHg Sitting Heart Rate Pre-Dialysis 68 BPM Sitting Heart Rate Post-Dialysis 65 BPM Standing Heart Rate Pre-Dialysis 92 BPM Standing Heart Rate Post-Dialysis 52 BPM Temperature Pre-Dialysis 98 degF Temperature Post -Dialysis 97.8 degF July 23, 2024 In-Center Hemodialysis Treatment [id number]:37:12.000Z [id number]:08:02.000Z BP Sitting (Pre-Dialysis) 142/94 mmHg BP Sitting (Post-Dialysis) 117/69 mmHg Concurrent Access: falseAV Fistula Forearm (Right) Arterial BP Standing (Pre-Dialysis) 165/87 mmHg BP Standing (P ost-Dialysis) 112/64 mmHg Sitting Heart Rate Pre-Dialysis 111 BPM Sitting Heart Rate Post-Dialysis 46 BPM Standing Heart Rate Pre-Dialysis 88 BPM Standing Heart Rate Post-Dialysis 70 BPM Temperature Pre-Dialysis 97.7 degF Temperature Post -Dialysis 98 degF July 20, 2024 In-Center Hemodialysis Treatment [id number]:37:00.000Z 2046-88-34R56:17:20.000Z BP Sitting (Pre-Dialysis) 151/92 mmHg BP Sitting (Post-Dialysis) 121/78 mmHg Concurrent Access: falseAV Fistula Forearm (Right) Arterial BP Standing (Pre-Dialysis) 137/87 mmHg BP Standing (P ost-Dialysis) 151/83 mmHg Sitting Heart Rate Pre-Dialysis 107 BPM Sitting Heart Rate Post-Dialysis 72 BPM Standing Heart Rate Pre-Dialysis 80 BPM Standing Heart Rate Post-Dialysis 64 BPM Temperature Pre-Dialysis 98 degF Temperature Post -Dialysis 97.4 degF July 18, 2024 In-Center Hemodialysis Treatment [id number]:33:00.000Z [id number]:10:06.000Z BP Sitting (Pre-Dialysis) 136/89 mmHg BP Sitting (Post-Dialysis) 109/68 mmHg Concurrent Access: falseAV Fistula Forearm (Right) Arterial BP Standing (Pre-Dialysis) 146/89 mmHg BP Standing (P ost-Dialysis) 118/55 mmHg Sitting Heart Rate Pre-Dialysis 92 BPM Sitting Heart Rate Post-Dialysis 72 BPM Standing Heart Rate Pre-Dialysis 88 BPM Standing Heart Rate Post-Dialysis 47 BPM Temperature Pre-Dialysis 97.9 degF Temperature Post -Dialysis 97.1 degF July 16, 2024 In-Center Hemodialysis Treatment [id number]:35:00.000Z 6445-78-81A56:10:22.000Z BP Sitting (Pre-Dialysis) 140/91 mmHg BP Sitting (Post-Dialysis) 141/91 mmHg Concurrent Access: falseAV Fistula Forearm (Right) Arterial BP Standing (Pre-Dialysis) 156/98 mmHg BP Standing (P ost-Dialysis) 113/66 mmHg Sitting Heart Rate Pre-Dialysis 92 BPM Sitting Heart Rate Post-Dialysis 69 BPM Standing Heart Rate Pre-Dialysis 92 BPM Standing Heart Rate Post-Dialysis 69 BPM Temperature Pre-Dialysis 97.2 degF Temperature Post -Dialysis 97.2 degF July 13, 2024 In-Center Hemodialysis Treatment [id number]:25:00.000Z 4673-48-25O08:02:14.000Z BP Sitting (Pre-Dialysis) 149/91 mmHg BP Sitting (Post-Dialysis) 128/80 mmHg Concurrent Access: falseAV Fistula Forearm (Right) Arterial BP Standing (Pre-Dialysis) 141/76 mmHg BP Standing (P ost-Dialysis) 134/52 mmHg Sitting Heart Rate Pre-Dialysis 95 BPM Sitting Heart Rate Post-Dialysis 71 BPM Standing Heart Rate Pre-Dialysis 87 BPM Standing Heart Rate Post-Dialysis 47 BPM Temperature Pre-Dialysis 98 degF Temperature Post -Dialysis 97.4 degF July 11, 2024 In-Center Hemodialysis Treatment [id number]:59:00.000Z 8325-82-08X02:40:30.000Z BP Sitting (Pre-Dialysis) 123/67 mmHg BP Sitting (Post-Dialysis) 117/82 mmHg Concurrent Access: falseAV Fistula Forearm (Right) Arterial BP Standing (Pre-Dialysis) 110/78 mmHg Sitti ng Heart Rate Post-Dialysis 71 BPM Sitting Heart Rate Pre-Dialysis 94 BPM Temperatu re Post-Dialysis 96.7 degF Standing Heart Rate Pre-Dialysis 133 BPM Temperature Pre-Dialysis 98 degF July 09, 2024 In-Center Hemodialysis Treatment [id number]:35:00.000Z 6769-58-02Z21:08:45.000Z BP Sitting (Pre-Dialysis) 123/78 mmHg BP Sitting (Post-Dialysis) 106/73 mmHg Concurrent Access: falseAV Fistula Forearm (Right) Arterial BP Standing (Pre-Dialysis) 130/77 mmHg BP Standing (P ost-Dialysis) 119/69 mmHg Sitting Heart Rate Pre-Dialysis 76 BPM Sitting Heart Rate Post-Dialysis 69 BPM Standing Heart Rate Pre-Dialysis 71 BPM Standing Heart Rate Post-Dialysis 69 BPM Temperature Pre-Dialysis 97.3 degF Temperature Post -Dialysis 98 degF July 06, 2024 In-Center Hemodialysis Treatment [id number]:34:00.000Z 4382-50-37H34:06:00.000Z BP Sitting (Pre-Dialysis) 137/73 mmHg BP Sitting (Post-Dialysis) 102/63 mmHg Concurrent Access: falseAV Fistula Forearm (Right) Arterial BP Standing (Pre-Dialysis) 117/74 mmHg BP Standing (P ost-Dialysis) 137/59 mmHg Sitting Heart Rate Pre-Dialysis 93 BPM Sitting Heart Rate Post-Dialysis 71 BPM Standing Heart Rate Pre-Dialysis 119 BPM Standing Heart Rate Post-Dialysis 51 BPM Temperature Pre-Dialysis 98.2 degF Temperature Post -Dialysis 97.3 degF July 04, 2024 In-Center Hemodialysis Treatment [id number]:34:00.000Z 7205-72-16K18:07:02.000Z BP Sitting (Pre-Dialysis) 151/83 mmHg BP Sitting (Post-Dialysis) 98/72 mmHg Concurrent Access: falseAV Fistula Forearm (Right) Arterial BP Standing (Pre-Dialysis) 124/76 mmHg Sitting Heart Rate Post-Dialysis 71 BPM Sitting Heart Rate Pre-Dialysis 90 BPM Temperatu re Post-Dialysis 98 degF Standing Heart Rate Pre-Dialysis 92 BPM Temperature Pre-Dialysis 98.2 degF July 02, 2024 In-Center Hemodialysis Treatment 5975-32-25O39:32:00.000Z 0280-37-33P79:05:55.000Z BP Sitting (Pre-Dialysis) 136/82 mmHg BP Sitting (Post-Dialysis) 128/77 mmHg Concurrent Access: falseAV Fistula Forearm (Right) Arterial BP Standing (Pre-Dialysis) 135/80 mmHg BP Standing (P ost-Dialysis) 134/85 mmHg Sitting Heart Rate Pre-Dialysis 79 BPM Sitting Heart Rate Post-Dialysis 66 BPM Standing Heart Rate Pre-Dialysis 83 BPM Standing Heart Rate Post-Dialysis 70 BPM Temperature Pre-Dialysis 97.9 degF Temperature Post -Dialysis 97.3 degF June 29, 2024 In-Center Hemodialysis Treatment [id number]:38:19.000Z [id number]:08:44.000Z BP Sitting (Pre-Dialysis) 151/85 mmHg BP Sitting (Post-Dialysis) 145/83 mmHg Concurrent Access: falseAV Fistula Forearm (Right) Arterial BP Standing (Pre-Dialysis) 146/84 mmHg BP Standing (P ost-Dialysis) 148/83 mmHg Sitting Heart Rate Pre-Dialysis 73 BPM Sitting Heart Rate Post-Dialysis 70 BPM Standing Heart Rate Pre-Dialysis 80 BPM Standing Heart Rate Post-Dialysis 70 BPM Temperature Pre-Dialysis 97.3 degF Temperature Post -Dialysis 98.2 degF June 27, 2024 In-Center Hemodialysis Treatment 9905-92-65H79:34:00.000Z 7345-10-85T08:05:43.000Z BP Sitting (Pre-Dialysis) 131/81 mmHg BP Sitting (Post-Dialysis) 119/81 mmHg Concurrent Access: falseAV Fistula Forearm (Right) Arterial BP Standing (Pre-Dialysis) 123/74 mmHg BP Standing (P ost-Dialysis) 120/64 mmHg Sitting Heart Rate Pre-Dialysis 67 BPM Sitting Heart Rate Post-Dialysis 71 BPM Standing Heart Rate Pre-Dialysis 67 BPM Standing Heart Rate Post-Dialysis 46 BPM Temperature Pre-Dialysis 98 degF Temperature Post -Dialysis 97.1 degF June 25, 2024 In-Center Hemodialysis Treatment 1087-02-22N28:37:00.000Z 4320-36-62M55:04:55.000Z BP Sitting (Pre-Dialysis) 146/82 mmHg BP Sitting (Post-Dialysis) 126/81 mmHg Concurrent Access: falseAV Fistula Forearm (Right) Arterial BP Standing (Pre-Dialysis) 142/81 mmHg Sitti ng Heart Rate Post-Dialysis 70 BPM Sitting Heart Rate Pre-Dialysis 72 BPM Temperatu re Post-Dialysis 97.6 degF Standing Heart Rate Pre-Dialysis 72 BPM Temperature Pre-Dialysis 98 degF June 22, 2024 In-Center Hemodialysis Treatment 2761-91-09C58:34:28.000Z 9188-53-88B22:05:43.000Z BP Sitting (Pre-Dialysis) 135/80 mmHg BP Sitting (Post-Dialysis) 122/83 mmHg Concurrent Access: falseAV Fistula Forearm (Right) Arterial BP Standing (Pre-Dialysis) 132/87 mmHg BP Standing (P ost-Dialysis) 133/80 mmHg Sitting Heart Rate Pre-Dialysis 77 BPM Sitting Heart Rate Post-Dialysis 70 BPM Standing Heart Rate Pre-Dialysis 81 BPM Standing Heart Rate Post-Dialysis 69 BPM Temperature Pre-Dialysis 98.2 degF Temperature Post -Dialysis 97.7 degF June 20, 2024 In-Center Hemodialysis Treatment [id number]:42:00.000Z 8242-95-88V92:14:51.000Z BP Sitting (Pre-Dialysis) 99/57 mmHg BP Sitting (Post-Dialysis) 115/72 mmHg Concurrent Access: falseAV Fistula Forearm (Right) Arterial BP Standing (Pre-Dialysis) 90/52 mmHg Sitti ng Heart Rate Post-Dialysis 69 BPM Sitting Heart Rate Pre-Dialysis 66 BPM Temperatu re Post-Dialysis 97.5 degF Standing Heart Rate Pre-Dialysis 83 BPM Temperature Pre-Dialysis 98 degF June 18, 2024 In-Center Hemodialysis Treatment 8582-47-12P62:39:00.000Z 5189-87-16C73:10:40.000Z BP Sitting (Pre-Dialysis) 138/82 mmHg BP Sitting (Post-Dialysis) 110/67 mmHg Concurrent Access: falseAV Fistula Forearm (Right) Arterial BP Standing (Pre-Dialysis) 143/85 mmHg BP Standing (P ost-Dialysis) 116/63 mmHg Sitting Heart Rate Pre-Dialysis 89 BPM Sitting Heart Rate Post-Dialysis 47 BPM Standing Heart Rate Pre-Dialysis 90 BPM Standing Heart Rate Post-Dialysis 47 BPM Temperature Pre-Dialysis 98.2 degF Temperature Post -Dialysis 98.1 degF June 15, 2024 In-Center Hemodialysis Treatment [id number]:35:00.000Z 3040-30-18D99:09:08.000Z BP Sitting (Pre-Dialysis) 139/82 mmHg BP Sitting (Post-Dialysis) 113/78 mmHg Concurrent Access: falseAV Fistula Forearm (Right) Arterial BP Standing (Pre-Dialysis) 129/77 mmHg Sitti ng Heart Rate Post-Dialysis 71 BPM Sitting Heart Rate Pre-Dialysis 74 BPM Temperatu re Post-Dialysis 97.4 degF Standing Heart Rate Pre-Dialysis 78 BPM Temperature Pre-Dialysis 98.2 degF June 13, 2024 In-Center Hemodialysis Treatment 8697-51-15N65:35:00.000Z 5681-81-23G03:12:35.000Z BP Sitting (Pre-Dialysis) 159/91 mmHg BP Sitting (Post-Dialysis) 109/57 mmHg Concurrent Access: falseAV Fistula Forearm (Right) Arterial BP Standing (Pre-Dialysis) 166/94 mmHg BP Standing (P ost-Dialysis) 144/100 mmHg Sitting Heart Rate Pre-Dialysis 88 BPM Sitting Heart Rate Post-Dialysis 52 BPM Standing Heart Rate Pre-Dialysis 89 BPM Standing Heart Rate Post-Dialysis 71 BPM Temperature Pre-Dialysis 98.3 degF Temperature Post -Dialysis 98 degF June 11, 2024 In-Center Hemodialysis Treatment [id number]:45:00.000Z 4298-77-26J17:17:47.000Z BP Sitting (Pre-Dialysis) 125/80 mmHg BP Sitting (Post-Dialysis) 117/74 mmHg Concurrent Access: falseAV Fistula Forearm (Right) Arterial BP Standing (Pre-Dialysis) 130/79 mmHg Sitti ng Heart Rate Post-Dialysis 70 BPM Sitting Heart Rate Pre-Dialysis 69 BPM Temperatu re Post-Dialysis 97.8 degF Standing Heart Rate Pre-Dialysis 81 BPM Temperature Pre-Dialysis 97.7 degF June 08, 2024 In-Center Hemodialysis Treatment [id number]:35:35.000Z 9509-95-27Z85:08:55.000Z BP Sitting (Pre-Dialysis) 126/79 mmHg BP Sitting (Post-Dialysis) 104/71 mmHg Concurrent Access: falseAV Fistula Forearm (Right) Arterial BP Standing (Pre-Dialysis) 117/75 mmHg BP Standing (P ost-Dialysis) 114/83 mmHg Sitting Heart Rate Pre-Dialysis 79 BPM Sitting Heart Rate Post-Dialysis 71 BPM Standing Heart Rate Pre-Dialysis 81 BPM Standing Heart Rate Post-Dialysis 70 BPM Temperature Pre-Dialysis 98.2 degF Temperature Post -Dialysis 97.5 degF June 06, 2024 In-Center Hemodialysis Treatment [id number]:35:00.000Z 7128-68-08R11:09:00.000Z BP Sitting (Pre-Dialysis) 140/77 mmHg BP Sitting (Post-Dialysis) 108/73 mmHg Concurrent Access: falseAV Fistula Forearm (Right) Arterial Sitting Heart Rate Pre-Dialysis 67 BPM BP Standi ng (Post-Dialysis) 124/76 mmHg Temperature Pre-Dialysis 98 degF Sitting Heart Ra te Post-Dialysis 70 BPM Standing Heart Rate Post-Priti lysis 70 BPM Temperature Post-Dialysis 97 .5 degF June 04, 2024 In-Center Hemodialysis Treatment [id number]:34:00.000Z 9485-01-29M23:11:59.000Z BP Sitting (Pre-Dialysis) 137/78 mmHg BP Sitting (Post-Dialysis) 111/59 mmHg Concurrent Access: falseAV Fistula Forearm (Right) Arterial BP Standing (Pre-Dialysis) 136/81 mmHg BP Standing (P ost-Dialysis) 109/67 mmHg Sitting Heart Rate Pre-Dialysis 90 BPM Sitting Heart Rate Post-Dialysis 47 BPM Standing Heart Rate Pre-Dialysis 92 BPM Standing Heart Rate Post-Dialysis 83 BPM Temperature Pre-Dialysis 98 degF Temperature Post -Dialysis 98 degF June 01, 2024 In-Center Hemodialysis Treatment [id number]:34:30.000Z 8858-11-95B04:07:50.000Z BP Sitting (Pre-Dialysis) 108/66 mmHg BP Sitting (Post-Dialysis) 120/75 mmHg Concurrent Access: falseAV Fistula Forearm (Right) Arterial BP Standing (Pre-Dialysis) 126/78 mmHg Sitting Heart Rate Post-Dialysis 69 BPM Sitting Heart Rate Pre-Dialysis 67 BPM Temperatu re Post-Dialysis 97 degF Standing Heart Rate Pre-Dialysis 79 BPM Temperature Pre-Dialysis 98.2 degF May 30, 2024 In-Center Hemodialysis Treatment 0886-95-84L79:38:00.000Z 7002-25-75R62:12:10.000Z BP Sitting (Pre-Dialysis) 127/68 mmHg BP Sitting (Post-Dialysis) 114/75 mmHg Concurrent Access: falseAV Fistula Forearm (Right) Arterial BP Standing (Pre-Dialysis) 127/77 mmHg BP Standing (P ost-Dialysis) 125/77 mmHg Sitting Heart Rate Pre-Dialysis 79 BPM Sitting Heart Rate Post-Dialysis 69 BPM Standing Heart Rate Pre-Dialysis 88 BPM Standing Heart Rate Post-Dialysis 69 BPM Temperature Pre-Dialysis 98.2 degF Temperature Post -Dialysis 96.6 degF May 28, 2024 In-Center Hemodialysis Treatment [id number]:34:00.000Z 1886-74-19F33:05:18.000Z BP Sitting (Pre-Dialysis) 136/77 mmHg BP Sitting (Post-Dialysis) 118/81 mmHg Concurrent Access: falseAV Fistula Forearm (Right) Arterial BP Standing (Pre-Dialysis) 144/82 mmHg Sitti ng Heart Rate Post-Dialysis 70 BPM Sitting Heart Rate Pre-Dialysis 83 BPM Temperatu re Post-Dialysis 98.1 degF Standing Heart Rate Pre-Dialysis 81 BPM Temperature Pre-Dialysis 98 degF May 25, 2024 In-Center Hemodialysis Treatment 3573-03-09R10:38:00.000Z 0928-44-67O96:10:14.000Z BP Sitting (Pre-Dialysis) 132/74 mmHg BP Sitting (Post-Dialysis) 124/74 mmHg Concurrent Access: falseAV Fistula Forearm (Right) Arterial BP Standing (Pre-Dialysis) 123/74 mmHg BP Standing (P ost-Dialysis) 125/81 mmHg Sitting Heart Rate Pre-Dialysis 78 BPM Sitting Heart Rate Post-Dialysis 69 BPM Standing Heart Rate Pre-Dialysis 90 BPM Standing Heart Rate Post-Dialysis 69 BPM Temperature Pre-Dialysis 97.9 degF May 23, 2024 In-Center Hemodialysis Treatment [id number]:35:23.000Z 7406-20-72A75:11:13.000Z BP Sitting (Pre-Dialysis) 107/70 mmHg BP Sitting (Post-Dialysis) 100/67 mmHg Concurrent Access: falseAV Fistula Forearm (Right) Arterial BP Standing (Pre-Dialysis) 113/61 mmHg BP Standing (P ost-Dialysis) 105/71 mmHg Sitting Heart Rate Pre-Dialysis 64 BPM Sitting Heart Rate Post-Dialysis 68 BPM Standing Heart Rate Pre-Dialysis 73 BPM Standing Heart Rate Post-Dialysis 69 BPM Temperature Pre-Dialysis 97.2 degF Temperature Post -Dialysis 97.6 degF May 21, 2024 In-Center Hemodialysis Treatment [id number]:40:00.000Z 1571-91-60I55:20:21.000Z BP Sitting (Pre-Dialysis) 130/75 mmHg BP Sitting (Post-Dialysis) 120/77 mmHg Concurrent Access: falseAV Fistula Forearm (Right) Arterial BP Standing (Pre-Dialysis) 128/70 mmHg Sitti ng Heart Rate Post-Dialysis 69 BPM Sitting Heart Rate Pre-Dialysis 73 BPM Temperatu re Post-Dialysis 97.6 degF Standing Heart Rate Pre-Dialysis 78 BPM Temperature Pre-Dialysis 98 degF May 18, 2024 In-Center Hemodialysis Treatment [id number]:51:00.000Z 7403-22-04C41:26:14.000Z BP Sitting (Pre-Dialysis) 111/70 mmHg BP Sitting (Post-Dialysis) 126/79 mmHg Concurrent Access: falseAV Fistula Forearm (Right) Arterial BP Standing (Pre-Dialysis) 134/80 mmHg BP Standing (P ost-Dialysis) 127/79 mmHg Sitting Heart Rate Pre-Dialysis 70 BPM Sitting Heart Rate Post-Dialysis 70 BPM Standing Heart Rate Pre-Dialysis 84 BPM Standing Heart Rate Post-Dialysis 69 BPM Temperature Pre-Dialysis 98.3 degF Temperature Post -Dialysis 98 degF May 16, 2024 In-Center Hemodialysis Treatment [id number]:33:00.000Z 4193-27-18Q81:07:46.000Z BP Sitting (Pre-Dialysis) 124/79 mmHg BP Sitting (Post-Dialysis) 124/76 mmHg Concurrent Access: falseAV Fistula Forearm (Right) Arterial BP Standing (Pre-Dialysis) 120/75 mmHg Sitting Heart Rate Post-Dialysis 65 BPM Sitting Heart Rate Pre-Dialysis 78 BPM Temperatu re Post-Dialysis 98 degF Standing Heart Rate Pre-Dialysis 87 BPM Temperature Pre-Dialysis 97.9 degF May 14, 2024 In-Center Hemodialysis Treatment 7165-60-25N18:38:00.000Z 2677-64-45T93:08:50.000Z BP Sitting (Pre-Dialysis) 150/85 mmHg BP Sitting (Post-Dialysis) 116/75 mmHg Concurrent Access: falseAV Fistula Forearm (Right) Arterial BP Standing (Pre-Dialysis) 147/83 mmHg Sitting Heart Rate Post-Dialysis 70 BPM Sitting Heart Rate Pre-Dialysis 79 BPM Temperatu re Post-Dialysis 98 degF Standing Heart Rate Pre-Dialysis 77 BPM Temperature Pre-Dialysis 98 degF May 11, 2024 In-Center Hemodialysis Treatment [id number]:36:00.000Z 9659-99-07P74:08:29.000Z BP Sitting (Pre-Dialysis) 119/73 mmHg BP Sitting (Post-Dialysis) 127/78 mmHg Concurrent Access: falseAV Fistula Forearm (Right) Arterial BP Standing (Pre-Dialysis) 134/77 mmHg BP Standing (P ost-Dialysis) 138/80 mmHg Sitting Heart Rate Pre-Dialysis 71 BPM Sitting Heart Rate Post-Dialysis 70 BPM Standing Heart Rate Pre-Dialysis 69 BPM Standing Heart Rate Post-Dialysis 70 BPM Temperature Pre-Dialysis 97.9 degF Temperature Post -Dialysis 97.3 degF May 09, 2024 In-Center Hemodialysis Treatment [id number]:33:39.000Z 1854-98-34O75:05:19.000Z BP Sitting (Pre-Dialysis) 115/87 mmHg BP Sitting (Post-Dialysis) 120/76 mmHg Concurrent Access: falseAV Fistula Forearm (Right) Arterial BP Standing (Pre-Dialysis) 133/87 mmHg BP Standing (P ost-Dialysis) 155/88 mmHg Sitting Heart Rate Pre-Dialysis 112 BPM Sitting Heart Rate Post-Dialysis 69 BPM Standing Heart Rate Pre-Dialysis 105 BPM Standing Heart Rate Post-Dialysis 45 BPM Temperature Pre-Dialysis 97.6 degF Temperature Post -Dialysis 97.7 degF May 07, 2024 In-Center Hemodialysis Treatment 3311-66-10B24:42:00.000Z 5476-25-00L51:11:45.000Z BP Sitting (Pre-Dialysis) 127/67 mmHg BP Sitting (Post-Dialysis) 126/85 mmHg Concurrent Access: falseAV Fistula Forearm (Right) Arterial BP Standing (Pre-Dialysis) 117/85 mmHg BP Standing (P ost-Dialysis) 151/94 mmHg Sitting Heart Rate Pre-Dialysis 82 BPM Sitting Heart Rate Post-Dialysis 83 BPM Standing Heart Rate Pre-Dialysis 135 BPM Standing Heart Rate Post-Dialysis 137 BPM Temperature Pre-Dialysis 97.8 degF Temperature Post -Dialysis 97.6 degF May 04, 2024 In-Center Hemodialysis Treatment 2481-59-73M78:34:00.000Z 5834-06-66R33:05:00.000Z BP Sitting (Pre-Dialysis) 144/85 mmHg BP Sitting (Post-Dialysis) 125/78 mmHg Concurrent Access: falseAV Fistula Forearm (Right) Arterial BP Standing (Pre-Dialysis) 142/82 mmHg BP Standing (P ost-Dialysis) 113/68 mmHg Sitting Heart Rate Pre-Dialysis 92 BPM Sitting Heart Rate Post-Dialysis 72 BPM Standing Heart Rate Pre-Dialysis 93 BPM Standing Heart Rate Post-Dialysis 72 BPM Temperature Pre-Dialysis 98.2 degF Temperature Post -Dialysis 97.6 degF May 02, 2024 In-Center Hemodialysis Treatment 0528-14-98N12:33:00.000Z 8758-01-89H70:05:38.000Z BP Sitting (Pre-Dialysis) 139/76 mmHg BP Sitting (Post-Dialysis) 118/70 mmHg Concurrent Access: falseAV Fistula Forearm (Right) Arterial BP Standing (Pre-Dialysis) 147/82 mmHg Sitti ng Heart Rate Post-Dialysis 71 BPM Sitting Heart Rate Pre-Dialysis 82 BPM Temperatu re Post-Dialysis 97.4 degF Standing Heart Rate Pre-Dialysis 91 BPM Temperature Pre-Dialysis 97.6 degF April 30, 2024 In-Center Hemodialysis Treatment 7832-70-70M93:38:00.000Z 0458-23-87X60:15:09.000Z BP Sitting (Pre-Dialysis) 151/91 mmHg BP Sitting (Post-Dialysis) 129/89 mmHg Concurrent Access: falseAV Fistula Forearm (Right) Arterial BP Standing (Pre-Dialysis) 167/95 mmHg Sitti ng Heart Rate Post-Dialysis 64 BPM Sitting Heart Rate Pre-Dialysis 82 BPM Temperatu re Post-Dialysis 97.9 degF Standing Heart Rate Pre-Dialysis 80 BPM Temperature Pre-Dialysis 97.7 degF April 27, 2024 In-Center Hemodialysis Treatment 2428-74-62I15:37:00.000Z 1475-56-94G32:18:36.000Z BP Sitting (Pre-Dialysis) 142/77 mmHg BP Sitting (Post-Dialysis) 147/76 mmHg Concurrent Access: falseAV Fistula Forearm (Right) Arterial BP Standing (Pre-Dialysis) 147/85 mmHg BP Standing (P ost-Dialysis) 144/80 mmHg Sitting Heart Rate Pre-Dialysis 68 BPM Sitting Heart Rate Post-Dialysis 65 BPM Standing Heart Rate Pre-Dialysis 71 BPM Standing Heart Rate Post-Dialysis 70 BPM Temperature Pre-Dialysis 98.4 degF Temperature Post -Dialysis 97.8 degF April 25, 2024 In-Center Hemodialysis Treatment [id number]:40:00.000Z 8787-59-36K59:12:12.000Z BP Sitting (Pre-Dialysis) 139/78 mmHg BP Sitting (Post-Dialysis) 128/77 mmHg Concurrent Access: falseAV Fistula Forearm (Right) Arterial BP Standing (Pre-Dialysis) 136/78 mmHg Sitti ng Heart Rate Post-Dialysis 69 BPM Sitting Heart Rate Pre-Dialysis 66 BPM Temperatu re Post-Dialysis 97.2 degF Standing Heart Rate Pre-Dialysis 69 BPM Temperature Pre-Dialysis 98.4 degF April 23, 2024 In-Center Hemodialysis Treatment 7190-78-14Z74:40:00.000Z 8443-19-40R88:11:42.000Z BP Sitting (Pre-Dialysis) 139/76 mmHg BP Sitting (Post-Dialysis) 147/81 mmHg Concurrent Access: falseAV Fistula Forearm (Right) Arterial BP Standing (Pre-Dialysis) 139/79 mmHg Sitti ng Heart Rate Post-Dialysis 68 BPM Sitting Heart Rate Pre-Dialysis 77 BPM Temperatu re Post-Dialysis 97.7 degF Standing Heart Rate Pre-Dialysis 79 BPM Temperature Pre-Dialysis 98 degF April 20, 2024 In-Center Hemodialysis Treatment [id number]:43:00.000Z 6631-80-69P02:13:34.000Z BP Sitting (Pre-Dialysis) 132/80 mmHg BP Sitting (Post-Dialysis) 117/73 mmHg Concurrent Access: falseAV Fistula Forearm (Right) Arterial BP Standing (Pre-Dialysis) 127/79 mmHg BP Standing (P ost-Dialysis) 145/71 mmHg Sitting Heart Rate Pre-Dialysis 89 BPM Sitting Heart Rate Post-Dialysis 69 BPM Standing Heart Rate Pre-Dialysis 90 BPM Standing Heart Rate Post-Dialysis 69 BPM Temperature Pre-Dialysis 98.3 degF Temperature Post -Dialysis 97.5 degF April 18, 2024 In-Center Hemodialysis Treatment [id number]:30:00.000Z 7235-39-06Y08:05:57.000Z BP Sitting (Pre-Dialysis) 142/81 mmHg BP Sitting (Post-Dialysis) 118/75 mmHg Concurrent Access: falseAV Fistula Forearm (Right) Arterial BP Standing (Pre-Dialysis) 151/84 mmHg Sitti ng Heart Rate Post-Dialysis 69 BPM Sitting Heart Rate Pre-Dialysis 88 BPM Temperatu re Post-Dialysis 96.4 degF Standing Heart Rate Pre-Dialysis 89 BPM Temperature Pre-Dialysis 98.2 degF April 16, 2024 In-Center Hemodialysis Treatment [id number]:37:00.000Z [id number]:08:00.000Z BP Sitting (Pre-Dialysis) 156/74 mmHg BP Sitting (Post-Dialysis) 127/78 mmHg Concurrent Access: falseAV Fistula Forearm (Right) Arterial BP Standing (Pre-Dialysis) 153/85 mmHg Sitti ng Heart Rate Post-Dialysis 70 BPM Sitting Heart Rate Pre-Dialysis 96 BPM Temperatu re Post-Dialysis 97.6 degF Standing Heart Rate Pre-Dialysis 91 BPM Temperature Pre-Dialysis 97.6 degF April 13, 2024 In-Center Hemodialysis Treatment [id number]:36:42.000Z [id number]:12:57.000Z BP Sitting (Pre-Dialysis) 148/90 mmHg BP Sitting (Post-Dialysis) 115/75 mmHg Concurrent Access: falseAV Fistula Forearm (Right) Arterial BP Standing (Pre-Dialysis) 130/89 mmHg BP Standing (P ost-Dialysis) 105/60 mmHg Sitting Heart Rate Pre-Dialysis 91 BPM Sitting Heart Rate Post-Dialysis 46 BPM Standing Heart Rate Pre-Dialysis 97 BPM Standing Heart Rate Post-Dialysis 59 BPM Temperature Pre-Dialysis 98.3 degF Temperature Post -Dialysis 98.3 degF April 11, 2024 In-Center Hemodialysis Treatment [id number]:37:30.000Z 3069-58-52S24:08:20.000Z BP Sitting (Pre-Dialysis) 138/78 mmHg BP Sitting (Post-Dialysis) 125/64 mmHg Concurrent Access: falseAV Fistula Forearm (Right) Arterial BP Standing (Pre-Dialysis) 133/85 mmHg BP Standing (P ost-Dialysis) 124/75 mmHg Sitting Heart Rate Pre-Dialysis 90 BPM Sitting Heart Rate Post-Dialysis 58 BPM Standing Heart Rate Pre-Dialysis 91 BPM Standing Heart Rate Post-Dialysis 55 BPM Temperature Pre-Dialysis 98.3 degF Temperature Post -Dialysis 97.9 degF April 09, 2024 In-Center Hemodialysis Treatment [id number]:34:00.000Z [id number]:39:00.000Z BP Sitting (Pre-Dialysis) 132/76 mmHg BP Sitting (Post-Dialysis) 112/68 mmHg Concurrent Access: falseAV Fistula Forearm (Right) Arterial BP Standing (Pre-Dialysis) 144/82 mmHg BP Standing (P ost-Dialysis) 130/71 mmHg Sitting Heart Rate Pre-Dialysis 94 BPM Sitting Heart Rate Post-Dialysis 70 BPM Standing Heart Rate Pre-Dialysis 94 BPM Standing Heart Rate Post-Dialysis 86 BPM Temperature Pre-Dialysis 99.1 degF Temperature Post -Dialysis 99.4 degF April 06, 2024 In-Center Hemodialysis Treatment [id number]:39:39.000Z 1927-88-79L49:09:00.000Z BP Sitting (Pre-Dialysis) 137/86 mmHg BP Sitting (Post-Dialysis) 115/76 mmHg Concurrent Access: falseAV Fistula Forearm (Right) Arterial BP Standing (Pre-Dialysis) 134/77 mmHg BP Standing (P ost-Dialysis) 116/66 mmHg Sitting Heart Rate Pre-Dialysis 88 BPM Sitting Heart Rate Post-Dialysis 71 BPM Standing Heart Rate Pre-Dialysis 87 BPM Standing Heart Rate Post-Dialysis 47 BPM Temperature Pre-Dialysis 97.8 degF Temperature Post -Dialysis 98 degF April 04, 2024 In-Center Hemodialysis Treatment [id number]:37:05.000Z 4842-51-01Y31:05:50.000Z BP Sitting (Pre-Dialysis) 147/90 mmHg BP Sitting (Post-Dialysis) 123/70 mmHg Concurrent Access: falseAV Fistula Forearm (Right) Arterial BP Standing (Pre-Dialysis) 147/83 mmHg BP Standing (P ost-Dialysis) 120/53 mmHg Sitting Heart Rate Pre-Dialysis 135 BPM Sitting Heart Rate Post-Dialysis 47 BPM Standing Heart Rate Pre-Dialysis 137 BPM Standing Heart Rate Post-Dialysis 73 BPM Temperature Pre-Dialysis 98.1 degF Temperature Post -Dialysis 97.5 degF April 02, 2024 In-Center Hemodialysis Treatment [id number]:39:00.000Z [id number]:11:21.000Z BP Sitting (Pre-Dialysis) 139/93 mmHg BP Sitting (Post-Dialysis) 145/89 mmHg Concurrent Access: falseAV Fistula Forearm (Right) Arterial BP Standing (Pre-Dialysis) 146/78 mmHg BP Standing (P ost-Dialysis) 126/72 mmHg Sitting Heart Rate Pre-Dialysis 112 BPM Sitting Heart Rate Post-Dialysis 47 BPM Standing Heart Rate Pre-Dialysis 110 BPM Standing Heart Rate Post-Dialysis 51 BPM Temperature Pre-Dialysis 98.4 degF Temperature Post -Dialysis 97.3 degF March 30, 2024 In-Center Hemodialysis Treatment [id number]:32:00.000Z [id number]:06:05.000Z BP Sitting (Pre-Dialysis) 141/78 mmHg BP Sitting (Post-Dialysis) 135/66 mmHg Concurrent Access: falseAV Fistula Forearm (Right) Arterial BP Standing (Pre-Dialysis) 137/75 mmHg BP Standing (P ost-Dialysis) 131/69 mmHg Sitting Heart Rate Pre-Dialysis 91 BPM Sitting Heart Rate Post-Dialysis 47 BPM Standing Heart Rate Pre-Dialysis 82 BPM Standing Heart Rate Post-Dialysis 47 BPM Temperature Pre-Dialysis 98.6 degF Temperature Post -Dialysis 98.1 degF March 28, 2024 In-Center Hemodialysis Treatment [id number]:36:48.000Z 9975-80-72C07:06:48.000Z BP Sitting (Pre-Dialysis) 139/87 mmHg BP Sitting (Post-Dialysis) 131/77 mmHg Concurrent Access: falseAV Fistula Forearm (Right) Arterial BP Standing (Pre-Dialysis) 135/57 mmHg BP Standing (P ost-Dialysis) 133/74 mmHg Sitting Heart Rate Pre-Dialysis 88 BPM Sitting Heart Rate Post-Dialysis 73 BPM Standing Heart Rate Pre-Dialysis 88 BPM Standing Heart Rate Post-Dialysis 47 BPM Temperature Pre-Dialysis 98.2 degF Temperature Post -Dialysis 97.7 degF March 26, 2024 In-Center Hemodialysis Treatment [id number]:39:08.000Z [id number]:11:38.000Z BP Sitting (Pre-Dialysis) 127/70 mmHg BP Sitting (Post-Dialysis) 144/73 mmHg Concurrent Access: falseAV Fistula Forearm (Right) Arterial BP Standing (Pre-Dialysis) 159/74 mmHg Sitti ng Heart Rate Post-Dialysis 46 BPM Sitting Heart Rate Pre-Dialysis 89 BPM Temperatu re Post-Dialysis 97.5 degF Standing Heart Rate Pre-Dialysis 87 BPM Temperature Pre-Dialysis 98.2 degF March 23, 2024 In-Center Hemodialysis Treatment 6623-16-19D33:36:35.000Z [id number]:16:35.000Z BP Sitting (Pre-Dialysis) 155/93 mmHg BP Sitting (Post-Dialysis) 136/69 mmHg Concurrent Access: falseAV Fistula Forearm (Right) Arterial BP Standing (Pre-Dialysis) 156/78 mmHg Sitti ng Heart Rate Post-Dialysis 46 BPM Sitting Heart Rate Pre-Dialysis 90 BPM Temperatu re Post-Dialysis 98.2 degF Standing Heart Rate Pre-Dialysis 81 BPM Temperature Pre-Dialysis 98.4 degF March 21, 2024 In-Center Hemodialysis Treatment [id number]:39:31.000Z 9332-16-33I45:09:31.000Z BP Sitting (Pre-Dialysis) 154/74 mmHg BP Sitting (Post-Dialysis) 112/63 mmHg Concurrent Access: falseAV Fistula Forearm (Right) Arterial BP Standing (Pre-Dialysis) 131/72 mmHg BP Standing (P ost-Dialysis) 124/63 mmHg Sitting Heart Rate Pre-Dialysis 88 BPM Sitting Heart Rate Post-Dialysis 51 BPM Standing Heart Rate Pre-Dialysis 66 BPM Standing Heart Rate Post-Dialysis 46 BPM Temperature Pre-Dialysis 98.1 degF Temperature Post -Dialysis 98.2 degF March 19, 2024 In-Center Hemodialysis Treatment [id number]:36:10.000Z 9599-57-04B73:07:00.000Z BP Sitting (Pre-Dialysis) 157/89 mmHg BP Sitting (Post-Dialysis) 102/65 mmHg Concurrent Access: falseAV Fistula Forearm (Right) Arterial BP Standing (Pre-Dialysis) 149/76 mmHg BP Standing (P ost-Dialysis) 124/84 mmHg Sitting Heart Rate Pre-Dialysis 75 BPM Sitting Heart Rate Post-Dialysis 72 BPM Standing Heart Rate Pre-Dialysis 78 BPM Standing Heart Rate Post-Dialysis 70 BPM Temperature Pre-Dialysis 98.2 degF Temperature Post -Dialysis 97.3 degF March 16, 2024 In-Center Hemodialysis Treatment [id number]:35:00.000Z [id number]:06:57.000Z BP Sitting (Pre-Dialysis) 133/77 mmHg BP Sitting (Post-Dialysis) 94/60 mmHg Concurrent Access: falseAV Fistula Forearm (Right) Arterial BP Standing (Pre-Dialysis) 124/76 mmHg Sitting Heart Rate Post-Dialysis 117 BPM Sitting Heart Rate Pre-Dialysis 63 BPM Temperatu re Post-Dialysis 98 degF Standing Heart Rate Pre-Dialysis 70 BPM Temperature Pre-Dialysis 98 degF March 14, 2024 In-Center Hemodialysis Treatment 9583-84-70H85:42:44.000Z 4319-64-80U70:12:44.000Z BP Sitting (Pre-Dialysis) 115/56 mmHg BP Sitting (Post-Dialysis) 111/72 mmHg Concurrent Access: falseAV Fistula Forearm (Right) Arterial BP Standing (Pre-Dialysis) 122/64 mmHg Sitti ng Heart Rate Post-Dialysis 72 BPM Sitting Heart Rate Pre-Dialysis 89 BPM Temperatu re Post-Dialysis 98.4 degF Standing Heart Rate Pre-Dialysis 46 BPM Temperature Pre-Dialysis 97.7 degF March 12, 2024 In-Center Hemodialysis Treatment [id number]:40:00.000Z 7081-03-21F79:11:26.000Z BP Sitting (Pre-Dialysis) 146/85 mmHg BP Sitting (Post-Dialysis) 131/72 mmHg Concurrent Access: falseAV Fistula Forearm (Right) Arterial BP Standing (Pre-Dialysis) 138/82 mmHg Sitti ng Heart Rate Post-Dialysis 48 BPM Sitting Heart Rate Pre-Dialysis 69 BPM Temperatu re Post-Dialysis 97.2 degF Standing Heart Rate Pre-Dialysis 62 BPM Temperature Pre-Dialysis 98 degF March 09, 2024 In-Center Hemodialysis Treatment [id number]:36:00.000Z 8915-51-83S80:10:09.000Z BP Sitting (Pre-Dialysis) 123/60 mmHg BP Sitting (Post-Dialysis) 112/80 mmHg Concurrent Access: falseAV Fistula Forearm (Right) Arterial BP Standing (Pre-Dialysis) 101/64 mmHg BP Standing (P ost-Dialysis) 126/69 mmHg Sitting Heart Rate Pre-Dialysis 90 BPM Sitting Heart Rate Post-Dialysis 71 BPM Standing Heart Rate Pre-Dialysis 87 BPM Standing Heart Rate Post-Dialysis 50 BPM Temperature Pre-Dialysis 98.2 degF Temperature Post -Dialysis 97.4 degF March 07, 2024 In-Center Hemodialysis Treatment [id number]:34:00.000Z 4315-58-17M51:05:16.000Z BP Sitting (Pre-Dialysis) 144/85 mmHg BP Sitting (Post-Dialysis) 102/62 mmHg Concurrent Access: falseAV Fistula Forearm (Right) Arterial BP Standing (Pre-Dialysis) 160/90 mmHg BP Standing (P ost-Dialysis) 140/72 mmHg Sitting Heart Rate Pre-Dialysis 89 BPM Sitting Heart Rate Post-Dialysis 75 BPM Standing Heart Rate Pre-Dialysis 90 BPM Standing Heart Rate Post-Dialysis 70 BPM Temperature Pre-Dialysis 98.2 degF Temperature Post -Dialysis 97.5 degF March 05, 2024 In-Center Hemodialysis Treatment [id number]:35:00.000Z [id number]:06:16.000Z BP Sitting (Pre-Dialysis) 148/83 mmHg BP Sitting (Post-Dialysis) 131/88 mmHg Concurrent Access: falseAV Fistula Forearm (Right) Arterial BP Standing (Pre-Dialysis) 145/79 mmHg BP Standing (P ost-Dialysis) 134/79 mmHg Sitting Heart Rate Pre-Dialysis 65 BPM Sitting Heart Rate Post-Dialysis 61 BPM Standing Heart Rate Pre-Dialysis 65 BPM Standing Heart Rate Post-Dialysis 68 BPM Temperature Pre-Dialysis 97.9 degF Temperature Post -Dialysis 98.2 degF March 02, 2024 In-Center Hemodialysis Treatment [id number]:35:00.000Z [id number]:06:43.000Z BP Sitting (Pre-Dialysis) 142/83 mmHg BP Sitting (Post-Dialysis) 114/73 mmHg Concurrent Access: falseAV Fistula Forearm (Right) Arterial BP Standing (Pre-Dialysis) 154/88 mmHg Sitti ng Heart Rate Post-Dialysis 71 BPM Sitting Heart Rate Pre-Dialysis 73 BPM Temperatu re Post-Dialysis 97.8 degF Standing Heart Rate Pre-Dialysis 77 BPM Temperature Pre-Dialysis 98 degF February 29, 2024 In-Center Hemodialysis Treatment [id number]:37:18.000Z [id number]:07:43.000Z BP Sitting (Pre-Dialysis) 148/88 mmHg BP Sitting (Post-Dialysis) 111/75 mmHg Concurrent Access: falseAV Fistula Forearm (Right) Arterial BP Standing (Pre-Dialysis) 141/84 mmHg BP Standing (P ost-Dialysis) 110/67 mmHg Sitting Heart Rate Pre-Dialysis 89 BPM Sitting Heart Rate Post-Dialysis 72 BPM Standing Heart Rate Pre-Dialysis 90 BPM Standing Heart Rate Post-Dialysis 47 BPM Temperature Pre-Dialysis 98.1 degF Temperature Post -Dialysis 98 degF February 27, 2024 In-Center Hemodialysis Treatment [id number]:33:00.000Z [id number]:17:02.000Z BP Sitting (Pre-Dialysis) 138/82 mmHg BP Sitting (Post-Dialysis) 117/64 mmHg Concurrent Access: falseAV Fistula Forearm (Right) Arterial BP Standing (Pre-Dialysis) 142/83 mmHg BP Standing (P ost-Dialysis) 124/54 mmHg Sitting Heart Rate Pre-Dialysis 89 BPM Sitting Heart Rate Post-Dialysis 70 BPM Standing Heart Rate Pre-Dialysis 86 BPM Standing Heart Rate Post-Dialysis 64 BPM Temperature Pre-Dialysis 98.2 degF Temperature Post -Dialysis 98.2 degF February 24, 2024 In-Center Hemodialysis Treatment [id number]:38:50.000Z 8923-74-59P75:08:00.000Z BP Sitting (Pre-Dialysis) 151/93 mmHg BP Sitting (Post-Dialysis) 93/63 mmHg Concurrent Access: falseAV Fistula Forearm (Right) Arterial BP Standing (Pre-Dialysis) 142/90 mmHg BP Standing (P ost-Dialysis) 128/45 mmHg Sitting Heart Rate Pre-Dialysis 88 BPM Sitting Heart Rate Post-Dialysis 71 BPM Standing Heart Rate Pre-Dialysis 89 BPM Standing Heart Rate Post-Dialysis 58 BPM Temperature Pre-Dialysis 98 degF Temperature Post -Dialysis 97.4 degF February 22, 2024 In-Center Hemodialysis Treatment [id number]:36:00.000Z 1904-98-58P12:10:03.000Z BP Sitting (Pre-Dialysis) 147/89 mmHg BP Sitting (Post-Dialysis) 106/77 mmHg Concurrent Access: falseAV Fistula Forearm (Right) Arterial BP Standing (Pre-Dialysis) 149/85 mmHg BP Standing (P ost-Dialysis) 122/71 mmHg Sitting Heart Rate Pre-Dialysis 88 BPM Sitting Heart Rate Post-Dialysis 73 BPM Standing Heart Rate Pre-Dialysis 90 BPM Standing Heart Rate Post-Dialysis 72 BPM Temperature Pre-Dialysis 98.3 degF Temperature Post -Dialysis 98.3 degF February 20, 2024 In-Center Hemodialysis Treatment [id number]:36:00.000Z 5045-25-74N07:06:57.000Z BP Sitting (Pre-Dialysis) 147/86 mmHg BP Sitting (Post-Dialysis) 121/71 mmHg Concurrent Access: falseAV Fistula Forearm (Right) Arterial BP Standing (Pre-Dialysis) 143/84 mmHg BP Standing (P ost-Dialysis) 109/66 mmHg Sitting Heart Rate Pre-Dialysis 85 BPM Sitting Heart Rate Post-Dialysis 47 BPM Standing Heart Rate Pre-Dialysis 91 BPM Standing Heart Rate Post-Dialysis 53 BPM Temperature Pre-Dialysis 97.3 degF Temperature Post -Dialysis 97.2 degF February 17, 2024 In-Center Hemodialysis Treatment [id number]:34:00.000Z 5347-71-19H04:09:23.000Z BP Sitting (Pre-Dialysis) 127/77 mmHg BP Sitting (Post-Dialysis) 134/77 mmHg Concurrent Access: falseAV Fistula Forearm (Right) Arterial BP Standing (Pre-Dialysis) 136/80 mmHg BP Standing (P ost-Dialysis) 127/77 mmHg Sitting Heart Rate Pre-Dialysis 75 BPM Sitting Heart Rate Post-Dialysis 71 BPM Standing Heart Rate Pre-Dialysis 76 BPM Standing Heart Rate Post-Dialysis 81 BPM Temperature Pre-Dialysis 98.1 degF February 15, 2024 In-Center Hemodialysis Treatment [id number]:46:40.000Z 3623-48-13D47:17:30.000Z BP Sitting (Pre-Dialysis) 132/71 mmHg BP Sitting (Post-Dialysis) 136/66 mmHg Concurrent Access: falseAV Fistula Forearm (Right) Arterial BP Standing (Pre-Dialysis) 143/65 mmHg Sitti ng Heart Rate Post-Dialysis 81 BPM Sitting Heart Rate Pre-Dialysis 96 BPM Temperatu re Post-Dialysis 97.8 degF Standing Heart Rate Pre-Dialysis 90 BPM Temperature Pre-Dialysis 98.7 degF February 13, 2024 In-Center Hemodialysis Treatment [id number]:40:00.000Z 5060-61-15T53:12:05.000Z BP Sitting (Pre-Dialysis) 172/90 mmHg BP Sitting (Post-Dialysis) 142/84 mmHg Concurrent Access: falseAV Fistula Forearm (Right) Arterial BP Standing (Pre-Dialysis) 162/89 mmHg BP Standing (P ost-Dialysis) 147/83 mmHg Sitting Heart Rate Pre-Dialysis 92 BPM Sitting Heart Rate Post-Dialysis 62 BPM Standing Heart Rate Pre-Dialysis 88 BPM Standing Heart Rate Post-Dialysis 82 BPM Temperature Pre-Dialysis 99.1 degF Temperature Post -Dialysis 98.5 degF February 10, 2024 In-Center Hemodialysis Treatment [id number]:38:04.000Z [id number]:08:04.000Z BP Sitting (Pre-Dialysis) 150/82 mmHg BP Sitting (Post-Dialysis) 128/65 mmHg Concurrent Access: falseAV Fistula Forearm (Right) Arterial BP Standing (Pre-Dialysis) 177/93 mmHg BP Standing (P ost-Dialysis) 144/75 mmHg Sitting Heart Rate Pre-Dialysis 89 BPM Sitting Heart Rate Post-Dialysis 63 BPM Standing Heart Rate Pre-Dialysis 90 BPM Standing Heart Rate Post-Dialysis 72 BPM Temperature Pre-Dialysis 98.8 degF Temperature Post -Dialysis 98.8 degF February 08, 2024 In-Center Hemodialysis Treatment [id number]:37:00.000Z 5485-03-01J78:26:23.000Z BP Sitting (Pre-Dialysis) 160/86 mmHg BP Sitting (Post-Dialysis) 134/88 mmHg Concurrent Access: falseAV Fistula Forearm (Right) Arterial BP Standing (Pre-Dialysis) 158/89 mmHg BP Standing (P ost-Dialysis) 155/91 mmHg Sitting Heart Rate Pre-Dialysis 73 BPM Sitting Heart Rate Post-Dialysis 69 BPM Standing Heart Rate Pre-Dialysis 72 BPM Standing Heart Rate Post-Dialysis 72 BPM Temperature Pre-Dialysis 98.5 degF Temperature Post -Dialysis 98.6 degF February 06, 2024 In-Center Hemodialysis Treatment [id number]:38:00.000Z [id number]:09:40.000Z BP Sitting (Pre-Dialysis) 157/80 mmHg BP Sitting (Post-Dialysis) 114/66 mmHg Concurrent Access: falseAV Fistula Forearm (Right) Arterial BP Standing (Pre-Dialysis) 156/83 mmHg BP Standing (P ost-Dialysis) 118/78 mmHg Sitting Heart Rate Pre-Dialysis 81 BPM Sitting Heart Rate Post-Dialysis 63 BPM Standing Heart Rate Pre-Dialysis 79 BPM Standing Heart Rate Post-Dialysis 68 BPM Temperature Pre-Dialysis 98 degF Temperature Post -Dialysis 98.1 degF February 03, 2024 In-Center Hemodialysis Treatment [id number]:01:20.000Z 5089-65-41E43:09:15.000Z BP Sitting (Pre-Dialysis) 119/61 mmHg BP Sitting (Post-Dialysis) 130/67 mmHg Concurrent Access: falseAV Fistula Forearm (Right) Arterial BP Standing (Pre-Dialysis) 136/93 mmHg BP Standing (P ost-Dialysis) 112/64 mmHg Sitting Heart Rate Pre-Dialysis 75 BPM Sitting Heart Rate Post-Dialysis 48 BPM Standing Heart Rate Pre-Dialysis 140 BPM Standing Heart Rate Post-Dialysis 55 BPM Temperature Pre-Dialysis 98.4 degF Temperature Post -Dialysis 97.9 degF February 01, 2024 In-Center Hemodialysis Treatment 3984-13-12E05:42:00.000Z 5232-22-74D93:31:32.000Z BP Sitting (Pre-Dialysis) 126/68 mmHg BP Sitting (Post-Dialysis) 133/75 mmHg Concurrent Access: falseAV Fistula Forearm (Right) Arterial BP Standing (Pre-Dialysis) 136/85 mmHg BP Standing (P ost-Dialysis) 141/76 mmHg Sitting Heart Rate Pre-Dialysis 93 BPM Sitting Heart Rate Post-Dialysis 46 BPM Standing Heart Rate Pre-Dialysis 89 BPM Standing Heart Rate Post-Dialysis 46 BPM Temperature Pre-Dialysis 97.9 degF Temperature Post -Dialysis 97.7 degF January 30, 2024 In-Center Hemodialysis Treatment [id number]:40:00.000Z 4464-92-90X46:01:28.000Z BP Sitting (Pre-Dialysis) 151/74 mmHg BP Sitting (Post-Dialysis) 146/74 mmHg Concurrent Access: falseAV Fistula Forearm (Right) Arterial BP Standing (Pre-Dialysis) 162/93 mmHg BP Standing (P ost-Dialysis) 153/80 mmHg Sitting Heart Rate Pre-Dialysis 87 BPM Sitting Heart Rate Post-Dialysis 81 BPM Standing Heart Rate Pre-Dialysis 58 BPM Standing Heart Rate Post-Dialysis 59 BPM Temperature Pre-Dialysis 98.2 degF Temperature Post -Dialysis 97.7 degF January 27, 2024 In-Center Hemodialysis Treatment [id number]:34:13.000Z 1828-27-17Q04:50:00.000Z BP Sitting (Pre-Dialysis) 158/79 mmHg BP Sitting (Post-Dialysis) 126/78 mmHg Concurrent Access: falseAV Fistula Forearm (Right) Arterial BP Standing (Pre-Dialysis) 161/85 mmHg BP Standing (P ost-Dialysis) 137/66 mmHg Sitting Heart Rate Pre-Dialysis 89 BPM Sitting Heart Rate Post-Dialysis 81 BPM Standing Heart Rate Pre-Dialysis 92 BPM Standing Heart Rate Post-Dialysis 47 BPM Temperature Pre-Dialysis 98.1 degF Temperature Post -Dialysis 98.4 degF January 25, 2024 In-Center Hemodialysis Treatment [id number]:42:18.000Z 0235-03-95W30:39:48.000Z BP Sitting (Pre-Dialysis) 148/86 mmHg BP Sitting (Post-Dialysis) 123/88 mmHg Concurrent Access: falseAV Fistula Forearm (Right) Arterial BP Standing (Pre-Dialysis) 141/87 mmHg BP Standing (P ost-Dialysis) 110/75 mmHg Sitting Heart Rate Pre-Dialysis 92 BPM Sitting Heart Rate Post-Dialysis 41 BPM Standing Heart Rate Pre-Dialysis 94 BPM Standing Heart Rate Post-Dialysis 55 BPM Temperature Pre-Dialysis 98.3 degF Temperature Post -Dialysis 98.1 degF January 23, 2024 In-Center Hemodialysis Treatment [id number]:38:50.000Z 6775-87-00L04:08:25.000Z BP Sitting (Pre-Dialysis) 126/74 mmHg BP Sitting (Post-Dialysis) 121/72 mmHg Concurrent Access: falseAV Fistula Forearm (Right) Arterial BP Standing (Pre-Dialysis) 121/66 mmHg BP Standing (P ost-Dialysis) 107/72 mmHg Sitting Heart Rate Pre-Dialysis 90 BPM Sitting Heart Rate Post-Dialysis 46 BPM Standing Heart Rate Pre-Dialysis 90 BPM Standing Heart Rate Post-Dialysis 53 BPM Temperature Pre-Dialysis 98 degF Temperature Post -Dialysis 98.1 degF January 20, 2024 In-Center Hemodialysis Treatment [id number]:32:00.000Z 1702-42-99Z49:05:20.000Z BP Sitting (Pre-Dialysis) 111/62 mmHg BP Sitting (Post-Dialysis) 116/66 mmHg Concurrent Access: falseAV Fistula Forearm (Right) Arterial BP Standing (Pre-Dialysis) 131/69 mmHg BP Standing (P ost-Dialysis) 122/66 mmHg Sitting Heart Rate Pre-Dialysis 91 BPM Sitting Heart Rate Post-Dialysis 47 BPM Standing Heart Rate Pre-Dialysis 96 BPM Standing Heart Rate Post-Dialysis 49 BPM Temperature Pre-Dialysis 98.1 degF Temperature Post -Dialysis 98.3 degF January 18, 2024 In-Center Hemodialysis Treatment [id number]:36:33.000Z [id number]:36:00.000Z BP Sitting (Pre-Dialysis) 151/82 mmHg BP Sitting (Post-Dialysis) 132/75 mmHg Concurrent Access: falseAV Fistula Forearm (Right) Arterial BP Standing (Pre-Dialysis) 147/80 mmHg BP Standing (P ost-Dialysis) 146/90 mmHg Sitting Heart Rate Pre-Dialysis 74 BPM Sitting Heart Rate Post-Dialysis 71 BPM Standing Heart Rate Pre-Dialysis 77 BPM Standing Heart Rate Post-Dialysis 48 BPM Temperature Pre-Dialysis 97.9 degF Temperature Post -Dialysis 97.7 degF January 16, 2024 In-Center Hemodialysis Treatment [id number]:38:00.000Z [id number]:05:21.000Z BP Sitting (Pre-Dialysis) 133/66 mmHg BP Sitting (Post-Dialysis) 137/64 mmHg Concurrent Access: falseAV Fistula Forearm (Right) Arterial BP Standing (Pre-Dialysis) 150/81 mmHg BP Standing (P ost-Dialysis) 107/63 mmHg Sitting Heart Rate Pre-Dialysis 92 BPM Sitting Heart Rate Post-Dialysis 48 BPM Standing Heart Rate Pre-Dialysis 50 BPM Standing Heart Rate Post-Dialysis 98 BPM Temperature Pre-Dialysis 97.8 degF Temperature Post -Dialysis 97.4 degF January 13, 2024 In-Center Hemodialysis Treatment 0418-48-34Q49:46:40.000Z 7117-08-22X08:53:45.000Z BP Sitting (Pre-Dialysis) 130/73 mmHg BP Sitting (Post-Dialysis) 132/88 mmHg Concurrent Access: falseAV Fistula Forearm (Right) Arterial BP Standing (Pre-Dialysis) 122/73 mmHg BP Standing (P ost-Dialysis) 109/63 mmHg Sitting Heart Rate Pre-Dialysis 72 BPM Sitting Heart Rate Post-Dialysis 72 BPM Standing Heart Rate Pre-Dialysis 78 BPM Standing Heart Rate Post-Dialysis 74 BPM Temperature Pre-Dialysis 98.1 degF Temperature Post -Dialysis 98.2 degF January 11, 2024 In-Center Hemodialysis Treatment [id number]:47:00.000Z 3088-31-93H16:18:14.000Z BP Sitting (Pre-Dialysis) 143/72 mmHg BP Sitting (Post-Dialysis) 144/67 mmHg Concurrent Access: falseAV Fistula Forearm (Right) Arterial BP Standing (Pre-Dialysis) 124/73 mmHg Sitti ng Heart Rate Post-Dialysis 50 BPM Sitting Heart Rate Pre-Dialysis 83 BPM Temperatu re Post-Dialysis 97.8 degF Standing Heart Rate Pre-Dialysis 70 BPM Temperature Pre-Dialysis 98 degF January 09, 2024 In-Center Hemodialysis Treatment 2806-98-86T01:43:00.000Z 0346-58-73C49:15:40.000Z BP Sitting (Pre-Dialysis) 147/87 mmHg BP Sitting (Post-Dialysis) 124/73 mmHg Concurrent Access: falseAV Fistula Forearm (Right) Arterial BP Standing (Pre-Dialysis) 148/88 mmHg BP Standing (P ost-Dialysis) 138/63 mmHg Sitting Heart Rate Pre-Dialysis 89 BPM Sitting Heart Rate Post-Dialysis 71 BPM Standing Heart Rate Pre-Dialysis 92 BPM Standing Heart Rate Post-Dialysis 84 BPM Temperature Pre-Dialysis 98.3 degF Temperature Post -Dialysis 98.7 degF January 06, 2024 In-Center Hemodialysis Treatment [id number]:31:00.000Z [id number]:17:28.000Z BP Sitting (Pre-Dialysis) 133/79 mmHg BP Sitting (Post-Dialysis) 118/77 mmHg Concurrent Access: falseAV Fistula Forearm (Right) Arterial BP Standing (Pre-Dialysis) 138/69 mmHg BP Standing (P ost-Dialysis) 128/70 mmHg Sitting Heart Rate Pre-Dialysis 67 BPM Sitting Heart Rate Post-Dialysis 69 BPM Standing Heart Rate Pre-Dialysis 86 BPM Standing Heart Rate Post-Dialysis 69 BPM Temperature Pre-Dialysis 98.2 degF Temperature Post -Dialysis 97.4 degF January 04, 2024 In-Center Hemodialysis Treatment [id number]:34:36.000Z 1726-48-98Y97:11:16.000Z BP Sitting (Pre-Dialysis) 140/89 mmHg BP Sitting (Post-Dialysis) 121/71 mmHg Concurrent Access: falseAV Fistula Forearm (Right) Arterial BP Standing (Pre-Dialysis) 151/82 mmHg Sitti ng Heart Rate Post-Dialysis 76 BPM Sitting Heart Rate Pre-Dialysis 92 BPM Temperatu re Post-Dialysis 97.5 degF Standing Heart Rate Pre-Dialysis 94 BPM Temperature Pre-Dialysis 98.3 degF January 02, 2024 In-Center Hemodialysis Treatment [id number]:36:00.000Z [id number]:06:34.000Z BP Sitting (Pre-Dialysis) 158/93 mmHg BP Sitting (Post-Dialysis) 136/78 mmHg Concurrent Access: falseAV Fistula Forearm (Right) Arterial BP Standing (Pre-Dialysis) 149/84 mmHg BP Standing (P ost-Dialysis) 147/86 mmHg Sitting Heart Rate Pre-Dialysis 94 BPM Sitting Heart Rate Post-Dialysis 65 BPM Standing Heart Rate Pre-Dialysis 92 BPM Standing Heart Rate Post-Dialysis 47 BPM Temperature Pre-Dialysis 98.4 degF Temperature Post -Dialysis 98 degF December 30, 2023 In-Center Hemodialysis Treatment [id number]:35:00.000Z [id number]:06:26.000Z BP Sitting (Pre-Dialysis) 152/84 mmHg BP Sitting (Post-Dialysis) 124/77 mmHg Concurrent Access: falseAV Fistula Forearm (Right) Arterial BP Standing (Pre-Dialysis) 161/91 mmHg BP Standing (P ost-Dialysis) 136/78 mmHg Sitting Heart Rate Pre-Dialysis 90 BPM Sitting Heart Rate Post-Dialysis 70 BPM Standing Heart Rate Pre-Dialysis 91 BPM Standing Heart Rate Post-Dialysis 71 BPM Temperature Pre-Dialysis 98.1 degF Temperature Post -Dialysis 97.6 degF December 28, 2023 In-Center Hemodialysis Treatment [id number]:36:00.000Z [id number]:24:39.000Z BP Sitting (Pre-Dialysis) 171/75 mmHg BP Sitting (Post-Dialysis) 130/73 mmHg Concurrent Access: falseAV Fistula Forearm (Right) Arterial BP Standing (Pre-Dialysis) 153/89 mmHg BP Standing (P ost-Dialysis) 147/86 mmHg Sitting Heart Rate Pre-Dialysis 94 BPM Sitting Heart Rate Post-Dialysis 71 BPM Standing Heart Rate Pre-Dialysis 90 BPM Standing Heart Rate Post-Dialysis 70 BPM Temperature Pre-Dialysis 97.9 degF Temperature Post -Dialysis 97.6 degF December 26, 2023 In-Center Hemodialysis Treatment [id number]:40:00.000Z [id number]:10:28.000Z BP Sitting (Pre-Dialysis) 151/80 mmHg BP Sitting (Post-Dialysis) 111/74 mmHg Concurrent Access: falseAV Fistula Forearm (Right) Arterial BP Standing (Pre-Dialysis) 135/77 mmHg BP Standing (P ost-Dialysis) 116/72 mmHg Sitting Heart Rate Pre-Dialysis 79 BPM Sitting Heart Rate Post-Dialysis 69 BPM Standing Heart Rate Pre-Dialysis 91 BPM Standing Heart Rate Post-Dialysis 74 BPM Temperature Pre-Dialysis 98.7 degF Temperature Post -Dialysis 98.1 degF December 23, 2023 In-Center Hemodialysis Treatment [id number]:39:00.000Z [id number]:23:21.000Z BP Sitting (Pre-Dialysis) 141/79 mmHg BP Sitting (Post-Dialysis) 136/59 mmHg Concurrent Access: falseAV Fistula Forearm (Right) Arterial BP Standing (Pre-Dialysis) 125/75 mmHg BP Standing (P ost-Dialysis) 120/71 mmHg Sitting Heart Rate Pre-Dialysis 67 BPM Sitting Heart Rate Post-Dialysis 71 BPM Standing Heart Rate Pre-Dialysis 69 BPM Standing Heart Rate Post-Dialysis 70 BPM Temperature Pre-Dialysis 98 degF Temperature Post -Dialysis 97.7 degF December 21, 2023 In-Center Hemodialysis Treatment [id number]:33:00.000Z [id number]:04:19.000Z BP Sitting (Pre-Dialysis) 141/83 mmHg BP Sitting (Post-Dialysis) 114/70 mmHg Concurrent Access: falseAV Fistula Forearm (Right) Arterial BP Standing (Pre-Dialysis) 138/77 mmHg BP Standing (P ost-Dialysis) 129/79 mmHg Sitting Heart Rate Pre-Dialysis 90 BPM Sitting Heart Rate Post-Dialysis 70 BPM Standing Heart Rate Pre-Dialysis 92 BPM Standing Heart Rate Post-Dialysis 85 BPM Temperature Pre-Dialysis 98.6 degF Temperature Post -Dialysis 97.9 degF December 19, 2023 In-Center Hemodialysis Treatment [id number]:34:00.000Z [id number]:23:18.000Z BP Sitting (Pre-Dialysis) 150/69 mmHg BP Sitting (Post-Dialysis) 127/67 mmHg Concurrent Access: falseAV Fistula Forearm (Right) Arterial BP Standing (Pre-Dialysis) 129/71 mmHg Sitti ng Heart Rate Post-Dialysis 91 BPM Sitting Heart Rate Pre-Dialysis 87 BPM Temperatu re Post-Dialysis 97.7 degF Standing Heart Rate Pre-Dialysis 92 BPM Temperature Pre-Dialysis 98.3 degF December 14, 2023 In-Center Hemodialysis Treatment [id number]:37:00.000Z [id number]:08:18.000Z BP Sitting (Pre-Dialysis) 125/65 mmHg BP Sitting (Post-Dialysis) 117/72 mmHg Concurrent Access: falseAV Fistula Forearm (Right) Arterial BP Standing (Pre-Dialysis) 134/76 mmHg Sitti ng Heart Rate Post-Dialysis 71 BPM Sitting Heart Rate Pre-Dialysis 88 BPM Temperatu re Post-Dialysis 97.5 degF Standing Heart Rate Pre-Dialysis 102 BPM Temperature Pre-Dialysis 98 degF December 12, 2023 In-Center Hemodialysis Treatment [id number]:37:00.000Z [id number]:10:10.000Z BP Sitting (Pre-Dialysis) 137/77 mmHg BP Sitting (Post-Dialysis) 110/62 mmHg Concurrent Access: falseAV Fistula Forearm (Right) Arterial BP Standing (Pre-Dialysis) 147/68 mmHg BP Standing (P ost-Dialysis) 123/54 mmHg Sitting Heart Rate Pre-Dialysis 90 BPM Sitting Heart Rate Post-Dialysis 62 BPM Standing Heart Rate Pre-Dialysis 91 BPM Standing Heart Rate Post-Dialysis 52 BPM Temperature Pre-Dialysis 98.3 degF Temperature Post -Dialysis 97.2 degF December 09, 2023 In-Center Hemodialysis Treatment [id number]:37:00.000Z [id number]:13:33.000Z BP Sitting (Pre-Dialysis) 134/76 mmHg BP Sitting (Post-Dialysis) 134/78 mmHg Concurrent Access: falseAV Fistula Forearm (Right) Arterial BP Standing (Pre-Dialysis) 139/78 mmHg BP Standing (P ost-Dialysis) 142/101 mmHg Sitting Heart Rate Pre-Dialysis 91 BPM Sitting Heart Rate Post-Dialysis 80 BPM Standing Heart Rate Pre-Dialysis 93 BPM Standing Heart Rate Post-Dialysis 88 BPM Temperature Pre-Dialysis 98.2 degF Temperature Post -Dialysis 97.9 degF December 07, 2023 In-Center Hemodialysis Treatment [id number]:34:00.000Z [id number]:07:59.000Z BP Sitting (Pre-Dialysis) 152/82 mmHg BP Sitting (Post-Dialysis) 139/82 mmHg Concurrent Access: falseAV Fistula Forearm (Right) Arterial BP Standing (Pre-Dialysis) 151/84 mmHg Sitti ng Heart Rate Post-Dialysis 67 BPM Sitting Heart Rate Pre-Dialysis 91 BPM Temperatu re Post-Dialysis 97.4 degF Standing Heart Rate Pre-Dialysis 92 BPM Temperature Pre-Dialysis 98.2 degF December 05, 2023 In-Center Hemodialysis Treatment [id number]:38:00.000Z [id number]:12:58.000Z BP Sitting (Pre-Dialysis) 123/74 mmHg BP Sitting (Post-Dialysis) 133/64 mmHg Concurrent Access: falseAV Fistula Forearm (Right) Arterial BP Standing (Pre-Dialysis) 125/74 mmHg BP Standing (P ost-Dialysis) 140/77 mmHg Sitting Heart Rate Pre-Dialysis 92 BPM Sitting Heart Rate Post-Dialysis 93 BPM Standing Heart Rate Pre-Dialysis 93 BPM Standing Heart Rate Post-Dialysis 81 BPM Temperature Pre-Dialysis 97.3 degF Temperature Post -Dialysis 97.7 degF December 02, 2023 In-Center Hemodialysis Treatment [id number]:34:05.000Z [id number]:06:35.000Z BP Sitting (Pre-Dialysis) 152/76 mmHg BP Sitting (Post-Dialysis) 135/73 mmHg Concurrent Access: falseAV Fistula Forearm (Right) Arterial BP Standing (Pre-Dialysis) 150/84 mmHg BP Standing (P ost-Dialysis) 135/77 mmHg Sitting Heart Rate Pre-Dialysis 85 BPM Sitting Heart Rate Post-Dialysis 77 BPM Standing Heart Rate Pre-Dialysis 91 BPM Standing Heart Rate Post-Dialysis 87 BPM Temperature Pre-Dialysis 97.1 degF Temperature Post -Dialysis 97.3 degF November 30, 2023 In-Center Hemodialysis Treatment [id number]:45:00.000Z [id number]:16:57.000Z BP Sitting (Pre-Dialysis) 154/88 mmHg BP Sitting (Post-Dialysis) 136/74 mmHg Concurrent Access: falseAV Fistula Forearm (Right) Arterial BP Standing (Pre-Dialysis) 155/92 mmHg Sitti ng Heart Rate Post-Dialysis 72 BPM Sitting Heart Rate Pre-Dialysis 91 BPM Temperatu re Post-Dialysis 96.4 degF Standing Heart Rate Pre-Dialysis 85 BPM Temperature Pre-Dialysis 97.4 degF November 28, 2023 In-Center Hemodialysis Treatment [id number]:38:00.000Z [id number]:08:54.000Z BP Sitting (Pre-Dialysis) 136/76 mmHg BP Sitting (Post-Dialysis) 108/76 mmHg Concurrent Access: falseAV Fistula Forearm (Right) Arterial BP Standing (Pre-Dialysis) 143/82 mmHg BP Standing (P ost-Dialysis) 115/72 mmHg Sitting Heart Rate Pre-Dialysis 83 BPM Sitting Heart Rate Post-Dialysis 71 BPM Standing Heart Rate Pre-Dialysis 80 BPM Standing Heart Rate Post-Dialysis 71 BPM Temperature Pre-Dialysis 97.8 degF Temperature Post -Dialysis 98 degF November 25, 2023 In-Center Hemodialysis Treatment [id number]:35:06.000Z [id number]:05:31.000Z BP Sitting (Pre-Dialysis) 125/70 mmHg BP Sitting (Post-Dialysis) 104/55 mmHg Concurrent Access: falseAV Fistula Forearm (Right) Arterial BP Standing (Pre-Dialysis) 145/73 mmHg BP Standing (P ost-Dialysis) 119/66 mmHg Sitting Heart Rate Pre-Dialysis 98 BPM Sitting Heart Rate Post-Dialysis 69 BPM Standing Heart Rate Pre-Dialysis 104 BPM Standing Heart Rate Post-Dialysis 94 BPM Temperature Pre-Dialysis 97.1 degF Temperature Post -Dialysis 97.9 degF November 23, 2023 In-Center Hemodialysis Treatment [id number]:42:28.000Z [id number]:20:23.000Z BP Sitting (Pre-Dialysis) 135/65 mmHg BP Sitting (Post-Dialysis) 104/55 mmHg Concurrent Access: falseAV Fistula Forearm (Right) Arterial BP Standing (Pre-Dialysis) 123/76 mmHg Sitting Heart Rate Post-Dialysis 69 BPM Sitting Heart Rate Pre-Dialysis 104 BPM Temperatu re Post-Dialysis 98 degF Standing Heart Rate Pre-Dialysis 109 BPM Temperature Pre-Dialysis 97.6 degF November 21, 2023 In-Center Hemodialysis Treatment [id number]:44:47.000Z [id number]:15:37.000Z BP Sitting (Pre-Dialysis) 123/65 mmHg BP Sitting (Post-Dialysis) 126/72 mmHg Concurrent Access: falseAV Fistula Forearm (Right) Arterial BP Standing (Pre-Dialysis) 125/65 mmHg Sitti ng Heart Rate Post-Dialysis 65 BPM Sitting Heart Rate Pre-Dialysis 95 BPM Temperatu re Post-Dialysis 97.1 degF Standing Heart Rate Pre-Dialysis 96 BPM Temperature Pre-Dialysis 98.2 degF November 18, 2023 In-Center Hemodialysis Treatment 350 mL/min 500 mL/min Concurrent Access: false November 16, 2023 In-Center Hemodialysis Treatment 0 T1 1: 36 :0 7. 00 0Z 0 T1 5: 06 :0 7. 00 0Z BP Sitting (Pre-Dial ysis) 142/74 mmHg BP Sitting (Post-Priti lysis) 138/87 mmHg Concurrent Access: falseAV Fistula Forearm (Right) Arterial BP Standing (Pre-Dialysis) 126/68 mmHg BP Standing (P ost-Dialysis) 144/92 mmHg Sitting Heart Rate Pre-Dialysis 94 BPM Sitting Heart Rate Post-Dialysis 73 BPM Standing Heart Rate Pre-Dialysis 97 BPM Standing Heart Rate Post-Dialysis 76 BPM Temperature Pre-Dialysis 98.5 degF Temperature Post -Dialysis 98 degF November 14, 2023 In-Center Hemodialysis Treatment [id number]:36:00.000Z [id number]:09:32.000Z BP Sitting (Pre-Dialysis) 143/85 mmHg BP Sitting (Post-Dialysis) 129/78 mmHg Concurrent Access: falseAV Fistula Forearm (Right) Arterial BP Standing (Pre-Dialysis) 163/76 mmHg Sitti ng Heart Rate Post-Dialysis 71 BPM Sitting Heart Rate Pre-Dialysis 78 BPM Temperatu re Post-Dialysis 98.2 degF Standing Heart Rate Pre-Dialysis 86 BPM Temperature Pre-Dialysis 98.2 degF November 11, 2023 In-Center Hemodialysis Treatment [id number]:34:00.000Z [id number]:05:19.000Z BP Sitting (Pre-Dialysis) 118/66 mmHg BP Sitting (Post-Dialysis) 120/72 mmHg Concurrent Access: falseAV Fistula Forearm (Right) Arterial BP Standing (Pre-Dialysis) 144/57 mmHg BP Standing (P ost-Dialysis) 119/72 mmHg Sitting Heart Rate Pre-Dialysis 108 BPM Sitting Heart Rate Post-Dialysis 75 BPM Standing Heart Rate Pre-Dialysis 107 BPM Standing Heart Rate Post-Dialysis 76 BPM Temperature Pre-Dialysis 97.7 degF Temperature Post -Dialysis 98 degF November 09, 2023 In-Center Hemodialysis Treatment [id number]:37:48.000Z [id number]:07:48.000Z BP Sitting (Pre-Dialysis) 130/71 mmHg BP Sitting (Post-Dialysis) 118/64 mmHg Concurrent Access: falseAV Fistula Forearm (Right) Arterial BP Standing (Pre-Dialysis) 118/64 mmHg Sitti ng Heart Rate Post-Dialysis 76 BPM Sitting Heart Rate Pre-Dialysis 99 BPM Temperatu re Post-Dialysis 98.3 degF Standing Heart Rate Pre-Dialysis 84 BPM Temperature Pre-Dialysis 98.3 degF November 07, 2023 In-Center Hemodialysis Treatment [id number]:44:00.000Z [id number]:14:47.000Z BP Sitting (Pre-Dialysis) 103/60 mmHg BP Sitting (Post-Dialysis) 120/76 mmHg Concurrent Access: falseAV Fistula Forearm (Right) Arterial BP Standing (Pre-Dialysis) 94/60 mmHg BP Standing (P ost-Dialysis) 116/63 mmHg Sitting Heart Rate Pre-Dialysis 74 BPM Sitting Heart Rate Post-Dialysis 76 BPM Standing Heart Rate Pre-Dialysis 75 BPM Standing Heart Rate Post-Dialysis 76 BPM Temperature Pre-Dialysis 97.3 degF Temperature Post -Dialysis 98.3 degF DIALYSIS ORDER Dialysis Procedure Orders Type of Dialysis Procedure Order Order Date/Time Observations In-Center Hemodialysis Treatment March Target Weight 91 kg Dialysate Flow Rate 800 mL/min Blood Flow Rate 350 mL/min Treatment Time 210 min(total) Max UF Rate 13 mL/kg/hr Base Sodium Dialysate Base Sodium 138 mE q/L dialysate_temp 37 ?C BiCarb Dialysate BiCarbonate 38 mEq/L Access Concurrent No Arterial Access AV Fistula (Forearm (Right)) Venous Access AV Fistula (Forearm (Right)) Arterial Needle Display CLAIRE MOSQUERA, 16 G x 1 , [place] , [place] Venous Needle CLAIRE MOSQUERA, 16G x 1 , [place] , TWIN Dialyzer Nipro Elisio 15H 126 4 [email or web address] Dialysate Bath Potassium Potassium 3 mEq /L Dialysate Bath Calcium Calcium 2.5 mEq/L Results Adequacy Description Draw Date Result/Unit Status Ref Range Result Comments PATIENT AGE 2024-10-25 16:28:15 63 Years F DIALYZER FLOW-QD 2024-10-25 16:28:15 800 mL/min F WEIGHT - PRE DAY 1 2024-10-25 16:28:15 92.1 kg F HEIGHT IN INCHES 2024-10-25 16:28:15 72 Inches F KT/V PRESCRIBED 2024-10-25 16:28:15 1.45 F WEIGHT (KG) 2024-10-25 16:28:15 91 kg F Total Kt/V 2024-10-25 16:28:15 1.38 F nPCR 2024-10-25 16:28:15 0.72 G/KG/D F eKt/V 2024-10-25 16:28:15 1.18 F TBW (Garcia) 2024-10-25 16:28:15 46.38 Liters F Std Renal KT/V 2024-10-25 16:28:15 N/A F BLOOD FLOW-QWB 2024-10-25 16:28:15 334 F TOTAL HOURS/WEEK DIALYSIS 2024-10-25 16:28:15 7 hrs F CURRENT KRU 2024-10-25 16:28:15 F Dialyzer NOLVIA 2024-10-25 16:28:15 1264 Calc F LENGTH OF DIALYSIS 2024-10-25 16:28:15 211 min F URR% 2024-10-25 16:28:15 71 % F BSA SHRUTI 2024-10-25 16:28:15 2.13 sq m F WEIGHT - POST DAY 1 2024-10-25 16:28:15 90.1 kg F VT (KT/V TX VOL) 2024-10-25 16:28:15 40.4 L F PRESCRIBED DAYS/WEEK 2024-10-25 16:28:15 3 Day/Wk F VM (KT/V MEAN VOL) 2024-10-25 16:28:15 41.1 F Residual kt/v 2024-10-25 16:28:15 F AMPUTATE FACTOR 2024-10-25 16:28:15 0 F spKt/V 2024-10-25 16:28:15 1.38 F stdKt/V (DIAL) 2024-10-25 16:28:15 N/A F stdKT/V Total 2024-10-25 16:28:15 N/A F Urea nitrogen [Mass/volume] in Serum or Plasma --post dialysis 2024-10-25 16:26:14 21 mg/dL F 9.0-23.0 Urea nitrogen [Mass/volume] in Serum or Plasma 2024-10-25 16:20:22 73 mg/dL F 9.0-23.0 Creatinine [Mass/volume] in Serum or Plasma 2024-10-04 23:23:21 8.85 mg/dL F 0.7-1.3 URR% 2024-09-21 02:08:35 69 % F DIALYZER FLOW-QD 2024-09-21 02:08:35 800 mL/min F WEIGHT - POST DAY 1 2024-09-21 02:08:35 91 kg F VT (KT/V TX VOL) 2024-09-21 02:08:35 40.2 L F LENGTH OF DIALYSIS 2024-09-21 02:08:35 211 min F VM (KT/V MEAN VOL) 2024-09-21 02:08:35 41.3 F KT/V PRESCRIBED 2024-09-21 02:08:35 1.45 F Total Kt/V 2024-09-21 02:08:35 1.29 F nPCR 2024-09-21 02:08:35 0.83 G/KG/D F AMPUTATE FACTOR 2024-09-21 02:08:35 0 F eKt/V 2024-09-21 02:08:35 1.1 F stdKT/V Total 2024-09-21 02:08:35 N/A F stdKt/V (DIAL) 2024-09-21 02:08:35 N/A F TOTAL HOURS/WEEK DIALYSIS 2024-09-21 02:08:35 7 hrs F Dialyzer NOLVIA 2024-09-21 02:08:35 1264 Calc F PATIENT AGE 2024-09-21 02:08:35 63 Years F BSA SHRUTI 2024-09-21 02:08:35 2.13 sq m F WEIGHT - PRE DAY 1 2024-09-21 02:08:35 93 kg F HEIGHT IN INCHES 2024-09-21 02:08:35 72 Inches F PRESCRIBED DAYS/WEEK 2024-09-21 02:08:35 3 Day/Wk F WEIGHT (KG) 2024-09-21 02:08:35 91 kg F Residual kt/v 2024-09-21 02:08:35 F TBW (Garcia) 2024-09-21 02:08:35 46.69 Liters F Std Renal KT/V 2024-09-21 02:08:35 N/A F spKt/V 2024-09-21 02:08:35 1.29 F BLOOD FLOW-QWB 2024-09-21 02:08:35 299 F CURRENT KRU 2024-09-21 02:08:35 F Urea nitrogen [Mass/volume] in Serum or Plasma 2024-09-21 02:06:19 89 mg/dL F 9.0-23.0 Urea nitrogen [Mass/volume] in Serum or Plasma --post dialysis 2024-09-21 01:26:20 28 mg/dL F 9.0-23.0 Creatinine [Mass/volume] in Serum or Plasma 2024-09-06 18:08:17 8.89 mg/dL F 0.7-1.3 DIALYZER FLOW-QD 2024-08-24 02:40:16 800 mL/min F Dialyzer NOLVIA 2024-08-24 02:40:16 1264 Calc F BSA SHRUTI 2024-08-24 02:40:16 2.13 sq m F WEIGHT (KG) 2024-08-24 02:40:16 91 kg F PRESCRIBED DAYS/WEEK 2024-08-24 02:40:16 3 Day/Wk F WEIGHT - POST DAY 1 2024-08-24 02:40:16 90.7 kg F VM (KT/V MEAN VOL) 2024-08-24 02:40:16 41.7 F Residual kt/v 2024-08-24 02:40:16 F KT/V PRESCRIBED 2024-08-24 02:40:16 1.42 F nPCR 2024-08-24 02:40:16 1.15 G/KG/D F eKt/V 2024-08-24 02:40:16 1.09 F stdKT/V Total 2024-08-24 02:40:16 N/A F URR% 2024-08-24 02:40:16 66 % F PATIENT AGE 2024-08-24 02:40:16 63 Years F WEIGHT - PRE DAY 1 2024-08-24 02:40:16 93.4 kg F LENGTH OF DIALYSIS 2024-08-24 02:40:16 207 min F VT (KT/V TX VOL) 2024-08-24 02:40:16 43.9 L F HEIGHT IN INCHES 2024-08-24 02:40:16 72 Inches F Total Kt/V 2024-08-24 02:40:16 1.28 F AMPUTATE FACTOR 2024-08-24 02:40:16 0 F TBW (Garcia) 2024-08-24 02:40:16 46.59 Liters F stdKt/V (DIAL) 2024-08-24 02:40:16 N/A F spKt/V 2024-08-24 02:40:16 1.28 F TOTAL HOURS/WEEK DIALYSIS 2024-08-24 02:40:16 10 hrs F Std Renal KT/V 2024-08-24 02:40:16 N/A F BLOOD FLOW-QWB 2024-08-24 02:40:16 345 F CURRENT KRU 2024-08-24 02:40:16 F Urea nitrogen [Mass/volume] in Serum or Plasma 2024-08-24 02:38:37 65 mg/dL F 9.0-23.0 Urea nitrogen [Mass/volume] in Serum or Plasma --post dialysis 2024-08-23 20:40:24 22 mg/dL F 9.0-23.0 Creatinine [Mass/volume] in Serum or Plasma 2024-08-09 16:39:22 9.24 mg/dL F 0.7-1.3 Creatinine [Mass/volume] in Serum or Plasma 2024-07-05 13:20:14 9.05 mg/dL F 0.7-1.3 Creatinine [Mass/volume] in Serum or Plasma 2024-06-07 13:18:32 8.75 mg/dL F 0.7-1.3 WEIGHT - POST DAY 1 2024-05-03 20:39:41 90.5 kg F DIALYZER FLOW-QD 2024-05-03 20:39:41 800 mL/min F WEIGHT - PRE DAY 1 2024-05-03 20:39:41 93 kg F HEIGHT IN INCHES 2024-05-03 20:39:41 72 Inches F WEIGHT (KG) 2024-05-03 20:39:41 91 kg F PRESCRIBED DAYS/WEEK 2024-05-03 20:39:41 3 Day/Wk F Total Kt/V 2024-05-03 20:39:41 1.42 F TBW (Garcia) 2024-05-03 20:39:41 46.52 Liters F nPCR 2024-05-03 20:39:41 1.09 G/KG/D F AMPUTATE FACTOR 2024-05-03 20:39:41 0 F Std Renal KT/V 2024-05-03 20:39:41 N/A F BLOOD FLOW-QWB 2024-05-03 20:39:41 349 F URR% 2024-05-03 20:39:41 70 % F Dialyzer NOLVIA 2024-05-03 20:39:41 1264 Calc F LENGTH OF DIALYSIS 2024-05-03 20:39:41 211 min F BSA SHRUTI 2024-05-03 20:39:41 2.13 sq m F PATIENT AGE 2024-05-03 20:39:41 63 Years F VM (KT/V MEAN VOL) 2024-05-03 20:39:41 41.4 F Residual kt/v 2024-05-03 20:39:41 F VT (KT/V TX VOL) 2024-05-03 20:39:41 40.3 L F KT/V PRESCRIBED 2024-05-03 20:39:41 1.45 F spKt/V 2024-05-03 20:39:41 1.42 F stdKt/V (DIAL) 2024-05-03 20:39:41 N/A F eKt/V 2024-05-03 20:39:41 1.21 F TOTAL HOURS/WEEK DIALYSIS 2024-05-03 20:39:41 10 hrs F stdKT/V Total 2024-05-03 20:39:41 N/A F CURRENT KRU 2024-05-03 20:39:41 F Creatinine [Mass/volume] in Serum or Plasma 2024-05-03 20:38:02 8.3 mg/dL F 0.7-1.3 Urea nitrogen [Mass/volume] in Serum or Plasma 2024-05-03 20:38:02 57 mg/dL F 9.0-23.0 Urea nitrogen [Mass/volume] in Serum or Plasma --post dialysis 2024-05-03 16:23:58 17 mg/dL F 9.0-23.0 Creatinine [Mass/volume] in Serum or Plasma 2024-04-05 15:34:40 8.08 mg/dL F 0.7-1.3 Creatinine [Mass/volume] in Serum or Plasma 2024-03-08 13:35:29 8.32 mg/dL F 0.7-1.3 Creatinine [Mass/volume] in Serum or Plasma 2024-02-02 15:56:39 7.21 mg/dL F 0.7-1.3 URR% 2024-01-10 02:47:31 F Unable to calculate: Post BUN lab result is unknown Dialyzer NOLVIA 2024-01-10 02:47:31 1218 Calc F DIALYZER FLOW-QD 2024-01-10 02:47:31 500 mL/min F LENGTH OF DIALYSIS 2024-01-10 02:47:31 149 min F BSA SHRUTI 2024-01-10 02:47:31 F Unable to calculate: Post BUN lab result is unknown VT (KT/V TX VOL) 2024-01-10 02:47:31 F Unable to calculate: Post BUN lab result is unknown PRESCRIBED DAYS/WEEK 2024-01-10 02:47:31 3 Day/Wk F WEIGHT - PRE DAY 1 2024-01-10 02:47:31 85.8 kg F VM (KT/V MEAN VOL) 2024-01-10 02:47:31 F Unable to calculate: Post BUN lab result is unknown KT/V PRESCRIBED 2024-01-10 02:47:31 F Unable to calculate: Post BUN lab result is unknown spKt/V 2024-01-10 02:47:31 F Unable to calculate: Post BUN lab result is unknown Total Kt/V 2024-01-10 02:47:31 F Unable to calculate: Post BUN lab result is unknown stdKt/V (DIAL) 2024-01-10 02:47:31 F Unable to calculate: Post BUN lab result is unknown PATIENT AGE 2024-01-10 02:47:31 63 Years F WEIGHT - POST DAY 1 2024-01-10 02:47:31 84.9 kg F HEIGHT IN INCHES 2024-01-10 02:47:31 72 Inches F Residual kt/v 2024-01-10 02:47:31 F Unable to calculate: Post BUN lab result is unknown WEIGHT (KG) 2024-01-10 02:47:31 86.2 kg F nPCR 2024-01-10 02:47:31 F Unable to calculate: Post BUN lab result is unknown TBW (Garcia) 2024-01-10 02:47:31 F Unable to calculate: Post BUN lab result is unknown Std Renal KT/V 2024-01-10 02:47:31 F Unable to calculate: Post BUN lab result is unknown stdKT/V Total 2024-01-10 02:47:31 N/A F eKt/V 2024-01-10 02:47:31 F Unable to calculate: Post BUN lab result is unknown BLOOD FLOW-QWB 2024-01-10 02:47:31 218 F TOTAL HOURS/WEEK DIALYSIS 2024-01-10 02:47:31 2 hrs F CURRENT KRU 2024-01-10 02:47:31 F Unable to calculate: Post BUN lab result is unknown Creatinine [Mass/volume] in Serum or Plasma 2024-01-05 14:38:29 6.72 mg/dL F 0.7-1.3 Creatinine [Mass/volume] in Serum or Plasma 2023-12-08 14:57:43 7.34 mg/dL F 0.7-1.3 BUN/CREAT 2023-11-08 18:08:08 9.5 Calc F 6.9-32.9 KRU-UREA CLR UR 2023-11-08 18:08:08 see comments F Unable to Calculate. CRE CLR UR/BSA 2023-11-08 18:08:08 see comments F 85.0-125.0 Unable to Calculate. Urea nitrogen [Mass/volume] in Serum or Plasma 2023-11-08 18:07:56 73 mg/dL F 9.0-23.0 Creatinine [Mass/volume] in Serum or Plasma 2023-11-08 18:07:56 7.72 mg/dL F 0.7-1.3 BODY WEIGHT (LBS) 2023-11-07 21:02:41 187.2 lbs F AMPUTATE FACTOR 2023-11-07 21:02:37 0 F Creatinine [Mass/volume] in Serum or Plasma Anemia Description Draw Date Result/Unit Status Ref Range Result Comments HCT CALC HGBX3 2024-10-26 04:27:29 31.2 % F 42.0-52.0 Hemoglobin [Mass/volume] in Blood 2024-10-26 04:26:16 10.4 g/dL F 14.0-18.0 HCT CALC HGBX3 2024-10-05 02:52:35 28.5 % F 42.0-52.0 Erythrocyte distribution width [Ratio] by Automated count 2024-10-05 02:51:18 16.2 % F 11.0-15.0 Hemoglobin [Mass/volume] in Blood 2024-10-05 02:51:18 9.5 g/dL F 14.0-18.0 MCHC [Mass/volume] by Automated count 2024-10-05 02:51:18 30.7 g/dL F 29.6-35.3 Erythrocytes [#/volume] in Blood by Automated count 2024-10-05 02:51:18 2.66 x 10'6 cells/uL F 4.6-6.2 Hematocrit [Volume Fraction] of Blood by Automated count 2024-10-05 02:51:18 30.9 % F 41.0-53.0 MCV [Entitic volume] by Automated count 2024-10-05 02:51:18 116.5 fL F 80.0-100.0 MCH [Entitic mass] by Automated count 2024-10-05 02:51:18 35.8 pg F 25.9-34.2 Platelets [#/volume] in Blood by Automated count 2024-10-05 02:51:18 251 x 10^3 cells/uL F 140.0-450.0 HCT CALC HGBX3 2024-09-21 21:57:24 28.5 % F 42.0-52.0 Hemoglobin [Mass/volume] in Blood 2024-09-21 21:55:00 9.5 g/dL F 14.0-18.0 Ferritin [Mass/volume] in Serum or Plasma 2024-09-07 08:21:09 513 ng/mL F 22.0-322.0 IRON SATURATION 2024-09-07 04:56:04 21 % F 21.0-49.0 TIBC 2024-09-07 04:56:04 228 ug/dL F 250.0-425.0 Iron [Mass/volume] in Serum or Plasma 2024-09-07 04:51:24 47 ug/dL F 65.0-175.0 Iron binding capacity.unsaturated [Mass/volume] in Serum or Plasma 2024-09-07 04:51:24 181 ug/dL F 75.0-360.0 HCT CALC HGBX3 2024-09-06 20:02:22 28.5 % F 42.0-52.0 Erythrocytes [#/volume] in Blood by Automated count 2024-09-06 20:01:15 2.76 x 10'6 cells/uL F 4.6-6.2 Hematocrit [Volume Fraction] of Blood by Automated count 2024-09-06 20:01:15 30.1 % F 41.0-53.0 MCV [Entitic volume] by Automated count 2024-09-06 20:01:15 109.2 fL F 80.0-100.0 MCHC [Mass/volume] by Automated count 2024-09-06 20:01:15 31.6 g/dL F 29.6-35.3 Platelets [#/volume] in Blood by Automated count 2024-09-06 20:01:15 236 x 10^3 cells/uL F 140.0-450.0 Erythrocyte distribution width [Ratio] by Automated count 2024-09-06 20:01:15 15.2 % F 11.0-15.0 MCH [Entitic mass] by Automated count 2024-09-06 20:01:15 34.5 pg F 25.9-34.2 Hemoglobin [Mass/volume] in Blood 2024-09-06 20:01:15 9.5 g/dL F 14.0-18.0 HCT CALC HGBX3 2024-08-24 02:32:26 29.4 % F 42.0-52.0 Hemoglobin [Mass/volume] in Blood 2024-08-24 02:31:26 9.8 g/dL F 14.0-18.0 HCT CALC HGBX3 2024-08-09 16:01:53 31.2 % F 42.0-52.0 MCHC [Mass/volume] by Automated count 2024-08-09 16:01:10 31.4 g/dL F 29.6-35.3 Platelets [#/volume] in Blood by Automated count 2024-08-09 16:01:10 239 x 10^3 cells/uL F 140.0-450.0 Erythrocyte distribution width [Ratio] by Automated count 2024-08-09 16:01:10 16.5 % F 11.0-15.0 Hematocrit [Volume Fraction] of Blood by Automated count 2024-08-09 16:01:10 33.1 % F 41.0-53.0 Erythrocytes [#/volume] in Blood by Automated count 2024-08-09 16:01:10 2.99 x 10'6 cells/uL F 4.6-6.2 Hemoglobin [Mass/volume] in Blood 2024-08-09 16:01:10 10.4 g/dL F 14.0-18.0 MCV [Entitic volume] by Automated count 2024-08-09 16:01:10 110.5 fL F 80.0-100.0 MCH [Entitic mass] by Automated count 2024-08-09 16:01:10 34.7 pg F 25.9-34.2 HCT CALC HGBX3 2024-07-05 13:32:59 33.6 % F 42.0-52.0 Hemoglobin [Mass/volume] in Blood 2024-07-05 13:32:23 11.2 g/dL F 14.0-18.0 Platelets [#/volume] in Blood by Automated count 2024-07-05 13:32:23 241 x 10^3 cells/uL F 140.0-450.0 Erythrocyte distribution width [Ratio] by Automated count 2024-07-05 13:32:23 15.8 % F 11.0-15.0 Hematocrit [Volume Fraction] of Blood by Automated count 2024-07-05 13:32:23 35 % F 41.0-53.0 MCH [Entitic mass] by Automated count 2024-07-05 13:32:21 34.7 pg F 25.9-34.2 MCHC [Mass/volume] by Automated count 2024-07-05 13:32:21 31.9 g/dL F 29.6-35.3 Erythrocytes [#/volume] in Blood by Automated count 2024-07-05 13:32:21 3.21 x 10'6 cells/uL F 4.6-6.2 MCV [Entitic volume] by Automated count 2024-07-05 13:32:21 108.8 fL F 80.0-100.0 Ferritin [Mass/volume] in Serum or Plasma 2024-06-08 02:17:31 362 ng/mL F 22.0-322.0 IRON SATURATION 2024-06-07 18:21:51 29 % F 21.0-49.0 TIBC 2024-06-07 18:21:51 246 ug/dL F 250.0-425.0 Iron binding capacity.unsaturated [Mass/volume] in Serum or Plasma 2024-06-07 18:21:25 174 ug/dL F 75.0-360.0 Iron [Mass/volume] in Serum or Plasma 2024-06-07 18:21:25 72 ug/dL F 65.0-175.0 HCT CALC HGBX3 2024-06-07 13:41:07 32.7 % F 42.0-52.0 Erythrocyte distribution width [Ratio] by Automated count 2024-06-07 13:40:32 17.7 % F 11.0-15.0 Erythrocytes [#/volume] in Blood by Automated count 2024-06-07 13:40:32 3.13 x 10'6 cells/uL F 4.6-6.2 MCV [Entitic volume] by Automated count 2024-06-07 13:40:32 108 fL F 80.0-100.0 MCHC [Mass/volume] by Automated count 2024-06-07 13:40:32 32.3 g/dL F 29.6-35.3 Hematocrit [Volume Fraction] of Blood by Automated count 2024-06-07 13:40:32 33.8 % F 41.0-53.0 Hemoglobin [Mass/volume] in Blood 2024-06-07 13:40:32 10.9 g/dL F 14.0-18.0 Platelets [#/volume] in Blood by Automated count 2024-06-07 13:40:32 249 x 10^3 cells/uL F 140.0-450.0 MCH [Entitic mass] by Automated count 2024-06-07 13:40:32 34.9 pg F 25.9-34.2 HCT CALC HGBX3 2024-05-03 16:33:59 33.6 % F 42.0-52.0 Erythrocyte distribution width [Ratio] by Automated count 2024-05-03 16:33:48 16.7 % F 11.0-15.0 MCH [Entitic mass] by Automated count 2024-05-03 16:33:48 33.5 pg F 25.9-34.2 Erythrocytes [#/volume] in Blood by Automated count 2024-05-03 16:33:48 3.35 x 10'6 cells/uL F 4.6-6.2 Hematocrit [Volume Fraction] of Blood by Automated count 2024-05-03 16:33:48 33.7 % F 41.0-53.0 MCV [Entitic volume] by Automated count 2024-05-03 16:33:48 100.5 fL F 80.0-100.0 Hemoglobin [Mass/volume] in Blood 2024-05-03 16:33:48 11.2 g/dL F 14.0-18.0 MCHC [Mass/volume] by Automated count 2024-05-03 16:33:48 33.3 g/dL F 29.6-35.3 Platelets [#/volume] in Blood by Automated count 2024-05-03 16:33:48 291 x 10^3 cells/uL F 140.0-450.0 HCT CALC HGBX3 2024-04-05 19:07:50 33.6 % F 42.0-52.0 Erythrocytes [#/volume] in Blood by Automated count 2024-04-05 19:07:32 3.57 x 10'6 cells/uL F 4.6-6.2 MCH [Entitic mass] by Automated count 2024-04-05 19:07:32 31.5 pg F 25.9-34.2 MCHC [Mass/volume] by Automated count 2024-04-05 19:07:32 32.5 g/dL F 29.6-35.3 Platelets [#/volume] in Blood by Automated count 2024-04-05 19:07:32 240 x 10^3 cells/uL F 140.0-450.0 Erythrocyte distribution width [Ratio] by Automated count 2024-04-05 19:07:32 15.8 % F 11.0-15.0 Hematocrit [Volume Fraction] of Blood by Automated count 2024-04-05 19:07:32 34.5 % F 41.0-53.0 MCV [Entitic volume] by Automated count 2024-04-05 19:07:32 96.6 fL F 80.0-100.0 Hemoglobin [Mass/volume] in Blood 2024-04-05 19:07:32 11.2 g/dL F 14.0-18.0 HCT CALC HGBX3 2024-03-08 13:41:51 39.3 % F 42.0-52.0 Erythrocyte distribution width [Ratio] by Automated count 2024-03-08 13:41:34 16.8 % F 11.0-15.0 Erythrocytes [#/volume] in Blood by Automated count 2024-03-08 13:41:34 4.17 x 10'6 cells/uL F 4.6-6.2 Hematocrit [Volume Fraction] of Blood by Automated count 2024-03-08 13:41:34 41.1 % F 41.0-53.0 Platelets [#/volume] in Blood by Automated count 2024-03-08 13:41:34 233 x 10^3 cells/uL F 140.0-450.0 MCV [Entitic volume] by Automated count 2024-03-08 13:41:34 98.5 fL F 80.0-100.0 Hemoglobin [Mass/volume] in Blood 2024-03-08 13:41:34 13.1 g/dL F 14.0-18.0 MCH [Entitic mass] by Automated count 2024-03-08 13:41:34 31.3 pg F 25.9-34.2 MCHC [Mass/volume] by Automated count 2024-03-08 13:41:34 31.8 g/dL F 29.6-35.3 HCT CALC HGBX3 2024-02-02 15:36:42 36 % F 42.0-52.0 Erythrocytes [#/volume] in Blood by Automated count 2024-02-02 15:36:39 3.97 x 10'6 cells/uL F 4.6-6.2 Erythrocyte distribution width [Ratio] by Automated count 2024-02-02 15:36:37 17.2 % F 11.0-15.0 Hemoglobin [Mass/volume] in Blood 2024-02-02 15:36:37 12 g/dL F 14.0-18.0 MCV [Entitic volume] by Automated count 2024-02-02 15:36:37 96 fL F 80.0-100.0 MCHC [Mass/volume] by Automated count 2024-02-02 15:36:37 31.5 g/dL F 29.6-35.3 Hematocrit [Volume Fraction] of Blood by Automated count 2024-02-02 15:36:37 38.1 % F 41.0-53.0 MCH [Entitic mass] by Automated count 2024-02-02 15:36:37 30.3 pg F 25.9-34.2 Platelets [#/volume] in Blood by Automated count 2024-02-02 15:36:37 215 x 10^3 cells/uL F 140.0-450.0 TIBC 2024-01-06 02:01:24 266 ug/dL F 250.0-425.0 IRON SATURATION 2024-01-06 02:01:24 14 % F 21.0-49.0 Iron [Mass/volume] in Serum or Plasma 2024-01-06 02:00:22 38 ug/dL F 65.0-175.0 Iron binding capacity.unsaturated [Mass/volume] in Serum or Plasma 2024-01-06 02:00:22 228 ug/dL F 75.0-360.0 Ferritin [Mass/volume] in Serum or Plasma 2024-01-06 01:35:15 68 ng/mL F 22.0-322.0 HCT CALC HGBX3 2024-01-05 20:14:03 32.7 % F 42.0-52.0 MCV [Entitic volume] by Automated count 2024-01-05 20:13:33 98.1 fL F 80.0-100.0 Erythrocyte distribution width [Ratio] by Automated count 2024-01-05 20:13:33 19 % F 11.0-15.0 Erythrocytes [#/volume] in Blood by Automated count 2024-01-05 20:13:33 3.67 x 10'6 cells/uL F 4.6-6.2 Hematocrit [Volume Fraction] of Blood by Automated count 2024-01-05 20:13:33 36 % F 41.0-53.0 MCH [Entitic mass] by Automated count 2024-01-05 20:13:33 29.6 pg F 25.9-34.2 Hemoglobin [Mass/volume] in Blood 2024-01-05 20:13:33 10.9 g/dL F 14.0-18.0 MCHC [Mass/volume] by Automated count 2024-01-05 20:13:33 30.2 g/dL F 29.6-35.3 Platelets [#/volume] in Blood by Automated count 2024-01-05 20:13:33 244 x 10^3 cells/uL F 140.0-450.0 HCT CALC HGBX3 2023-12-08 15:34:19 25.5 % F 42.0-52.0 Hemoglobin [Mass/volume] in Blood 2023-12-08 15:34:07 8.5 g/dL F 14.0-18.0 IRON SATURATION 2023-11-09 06:34:49 7 % F 21.0-49.0 TIBC 2023-11-09 06:34:49 266 ug/dL F 250.0-425.0 Iron [Mass/volume] in Serum or Plasma 2023-11-09 06:31:16 19 ug/dL F 65.0-175.0 Iron binding capacity.unsaturated [Mass/volume] in Serum or Plasma 2023-11-09 06:31:16 247 ug/dL F 75.0-360.0 HCT CALC HGBX3 2023-11-08 18:37:55 27.3 % F 42.0-52.0 Hematocrit [Volume Fraction] of Blood by Automated count 2023-11-08 18:37:31 28.3 % F 41.0-53.0 Reticulocytes/100 erythrocytes in Blood by Automated count 2023-11-08 18:37:31 2.74 % F 0.7-2.5 Hemoglobin [Mass/volume] in Blood 2023-11-08 18:37:31 9.1 g/dL F 14.0-18.0 Hemoglobin [Mass/volume] in Blood Hematocrit [Volume Fraction] of Blood by Automated count Erythrocyte distribution width [Ratio] by Automated count Platelets [#/volume] in Blood by Automated count MCV [Entitic volume] by Automated count HCT CALC HGBX3 Erythrocytes [#/volume] in Blood by Automated count MCH [Entitic mass] by Automated count MCHC [Mass/volume] by Automated count FluidBP Description Draw Date Result/Unit Status Ref Range Result Comments Sodium [Moles/volume] in Serum or Plasma 2024-10-05 05:32:39 138 mEq/L F 132.0-146.0 Sodium [Moles/volume] in Serum or Plasma 2024-09-07 04:51:24 135 mEq/L F 132.0-146.0 Sodium [Moles/volume] in Serum or Plasma 2024-08-10 03:31:07 137 mEq/L F 132.0-146.0 Sodium [Moles/volume] in Serum or Plasma 2024-07-05 17:46:40 136 mEq/L F 132.0-146.0 Sodium [Moles/volume] in Serum or Plasma 2024-06-07 18:21:25 135 mEq/L F 132.0-146.0 Sodium [Moles/volume] in Serum or Plasma 2024-05-04 05:27:33 136 mEq/L F 132.0-146.0 Sodium [Moles/volume] in Serum or Plasma 2024-04-06 03:40:02 136 mEq/L F 132.0-146.0 Sodium [Moles/volume] in Serum or Plasma 2024-03-09 04:17:27 136 mEq/L F 132.0-146.0 Sodium [Moles/volume] in Serum or Plasma 2024-02-02 17:18:38 137 mEq/L F 132.0-146.0 Sodium [Moles/volume] in Serum or Plasma 2024-01-06 02:00:22 135 mEq/L F 132.0-146.0 Sodium [Moles/volume] in Serum or Plasma 2023-12-08 22:33:44 135 mEq/L F 132.0-146.0 Sodium [Moles/volume] in Serum or Plasma 2023-11-09 06:31:16 133 mEq/L F 132.0-146.0 Sodium [Moles/volume] in Serum or Plasma General Description Draw Date Result/Unit Status Ref Range Result Comments Chloride [Moles/volume] in Serum or Plasma 2024-10-05 05:32:39 103 mEq/L F 99.0-109.0 Alanine aminotransferase [Enzymatic activity/volume] in Serum or Plasma 2024-10-04 23:23:21 14 U/L F 10.0-49.0 Aspartate aminotransferase [Enzymatic activity/volume] in Serum or Plasma 2024-10-04 23:23:21 13 U/L F 0.0-33.0 Chloride [Moles/volume] in Serum or Plasma 2024-09-07 04:51:24 99 mEq/L F 99.0-109.0 Aspartate aminotransferase [Enzymatic activity/volume] in Serum or Plasma 2024-09-06 18:08:17 10 U/L F 0.0-33.0 Alanine aminotransferase [Enzymatic activity/volume] in Serum or Plasma 2024-09-06 18:08:17 10 U/L F 10.0-49.0 Chloride [Moles/volume] in Serum or Plasma 2024-08-10 03:31:07 99 mEq/L F 99.0-109.0 Alanine aminotransferase [Enzymatic activity/volume] in Serum or Plasma 2024-08-09 16:39:22 13 U/L F 10.0-49.0 Aspartate aminotransferase [Enzymatic activity/volume] in Serum or Plasma 2024-08-09 16:39:22 11 U/L F 0.0-33.0 Chloride [Moles/volume] in Serum or Plasma 2024-07-05 17:46:40 97 mEq/L F 99.0-109.0 Aspartate aminotransferase [Enzymatic activity/volume] in Serum or Plasma 2024-07-05 13:20:14 9 U/L F 0.0-33.0 Alanine aminotransferase [Enzymatic activity/volume] in Serum or Plasma 2024-07-05 13:20:14 13 U/L F 10.0-49.0 Chloride [Moles/volume] in Serum or Plasma 2024-06-07 18:21:25 99 mEq/L F 99.0-109.0 Alanine aminotransferase [Enzymatic activity/volume] in Serum or Plasma 2024-06-07 13:18:32 14 U/L F 10.0-49.0 Aspartate aminotransferase [Enzymatic activity/volume] in Serum or Plasma 2024-06-07 13:18:32 13 U/L F 0.0-33.0 Chloride [Moles/volume] in Serum or Plasma 2024-05-04 05:27:33 98 mEq/L F 99.0-109.0 Alanine aminotransferase [Enzymatic activity/volume] in Serum or Plasma 2024-05-03 20:38:02 12 U/L F 10.0-49.0 Aspartate aminotransferase [Enzymatic activity/volume] in Serum or Plasma 2024-05-03 20:38:02 9 U/L F 0.0-33.0 Chloride [Moles/volume] in Serum or Plasma 2024-04-06 03:40:02 100 mEq/L F 99.0-109.0 Alanine aminotransferase [Enzymatic activity/volume] in Serum or Plasma 2024-04-05 15:34:40 13 U/L F 10.0-49.0 Aspartate aminotransferase [Enzymatic activity/volume] in Serum or Plasma 2024-04-05 15:34:40 10 U/L F 0.0-33.0 Chloride [Moles/volume] in Serum or Plasma 2024-03-09 04:17:27 98 mEq/L F 99.0-109.0 Alanine aminotransferase [Enzymatic activity/volume] in Serum or Plasma 2024-03-08 13:35:29 13 U/L F 10.0-49.0 Aspartate aminotransferase [Enzymatic activity/volume] in Serum or Plasma 2024-03-08 13:35:29 10 U/L F 0.0-33.0 Chloride [Moles/volume] in Serum or Plasma 2024-02-02 17:18:38 101 mEq/L F 99.0-109.0 Alanine aminotransferase [Enzymatic activity/volume] in Serum or Plasma 2024-02-02 15:56:39 15 U/L F 10.0-49.0 Aspartate aminotransferase [Enzymatic activity/volume] in Serum or Plasma 2024-02-02 15:56:39 11 U/L F 0.0-33.0 Chloride [Moles/volume] in Serum or Plasma 2024-01-06 02:00:22 101 mEq/L F 99.0-109.0 Alanine aminotransferase [Enzymatic activity/volume] in Serum or Plasma 2024-01-05 14:38:29 15 U/L F 10.0-49.0 Aspartate aminotransferase [Enzymatic activity/volume] in Serum or Plasma 2024-01-05 14:38:29 15 U/L F 0.0-33.0 Alanine aminotransferase [Enzymatic activity/volume] in Serum or Plasma 2023-12-08 14:57:43 11 U/L F 10.0-49.0 Chloride [Moles/volume] in Serum or Plasma 2023-11-09 06:31:16 98 mEq/L F 99.0-109.0 Aluminum [Mass/volume] in Serum or Plasma 2023-11-08 19:40:08 10 ug/L F 0.0-9.0 Alanine aminotransferase [Enzymatic activity/volume] in Serum or Plasma 2023-11-08 18:07:56 13 U/L F 10.0-49.0 Chloride [Moles/volume] in Serum or Plasma Alanine aminotransferase [Enzymatic activity/volume] in Serum or Plasma Aspartate aminotransferase [Enzymatic activity/volume] in Serum or Plasma InfectionVaccination Description Draw Date Result/Unit Status Ref Range Result Comments Basophils/100 leukocytes in Blood by Automated count 2024-10-05 02:51:18 2.2 % F Monocytes/100 leukocytes in Blood by Automated count 2024-10-05 02:51:18 8.8 % F Lymphocytes [#/volume] in Blood by Automated count 2024-10-05 02:51:18 767 Cells/uL F 620.0-3660.0 Monocytes [#/volume] in Blood by Automated count 2024-10-05 02:51:18 527 Cells/uL F 0.0-1100.0 Basophils [#/volume] in Blood by Automated count 2024-10-05 02:51:18 132 Cells/uL F 0.0-400.0 Neutrophils/100 leukocytes in Blood by Automated count 2024-10-05 02:51:18 72.7 % F Lymphocytes/100 leukocytes in Blood by Automated count 2024-10-05 02:51:18 12.8 % F Eosinophils/100 leukocytes in Blood by Automated count 2024-10-05 02:51:18 3.5 % F Leukocytes [#/volume] in Blood by Automated count 2024-10-05 02:51:18 6 x 10^3 cells/uL F 4.0-11.0 Neutrophils [#/volume] in Blood by Automated count 2024-10-05 02:51:18 4355 Cells/uL F 2000.0-8800.0 Eosinophils [#/volume] in Blood by Automated count 2024-10-05 02:51:18 210 Cells/uL F 0.0-700.0 Neutrophils [#/volume] in Blood by Automated count 2024-09-06 20:01:15 3803 Cells/uL F 2000.0-8800.0 Monocytes [#/volume] in Blood by Automated count 2024-09-06 20:01:15 371 Cells/uL F 0.0-1100.0 Lymphocytes [#/volume] in Blood by Automated count 2024-09-06 20:01:15 1273 Cells/uL F 620.0-3660.0 Eosinophils [#/volume] in Blood by Automated count 2024-09-06 20:01:15 257 Cells/uL F 0.0-700.0 Basophils/100 leukocytes in Blood by Automated count 2024-09-06 20:01:15 0.1 % F Neutrophils/100 leukocytes in Blood by Automated count 2024-09-06 20:01:15 66.6 % F Lymphocytes/100 leukocytes in Blood by Automated count 2024-09-06 20:01:15 22.3 % F Eosinophils/100 leukocytes in Blood by Automated count 2024-09-06 20:01:15 4.5 % F Monocytes/100 leukocytes in Blood by Automated count 2024-09-06 20:01:15 6.5 % F Leukocytes [#/volume] in Blood by Automated count 2024-09-06 20:01:15 5.7 x 10^3 cells/uL F 4.0-11.0 Basophils [#/volume] in Blood by Automated count 2024-09-06 20:01:15 6 Cells/uL F 0.0-400.0 Lymphocytes [#/volume] in Blood by Automated count 2024-08-09 16:01:12 1170 Cells/uL F 620.0-3660.0 Basophils/100 leukocytes in Blood by Automated count 2024-08-09 16:01:10 0.3 % F Lymphocytes/100 leukocytes in Blood by Automated count 2024-08-09 16:01:10 20.6 % F Monocytes/100 leukocytes in Blood by Automated count 2024-08-09 16:01:10 7.7 % F Leukocytes [#/volume] in Blood by Automated count 2024-08-09 16:01:10 5.7 x 10^3 cells/uL F 4.0-11.0 Monocytes [#/volume] in Blood by Automated count 2024-08-09 16:01:10 437 Cells/uL F 0.0-1100.0 Eosinophils [#/volume] in Blood by Automated count 2024-08-09 16:01:10 261 Cells/uL F 0.0-700.0 Neutrophils/100 leukocytes in Blood by Automated count 2024-08-09 16:01:10 66.8 % F Eosinophils/100 leukocytes in Blood by Automated count 2024-08-09 16:01:10 4.6 % F Neutrophils [#/volume] in Blood by Automated count 2024-08-09 16:01:10 3794 Cells/uL F 2000.0-8800.0 Basophils [#/volume] in Blood by Automated count 2024-08-09 16:01:10 17 Cells/uL F 0.0-400.0 Neutrophils/100 leukocytes in Blood by Automated count 2024-07-05 13:32:23 68.4 % F Monocytes/100 leukocytes in Blood by Automated count 2024-07-05 13:32:23 7 % F Eosinophils/100 leukocytes in Blood by Automated count 2024-07-05 13:32:23 4 % F Basophils [#/volume] in Blood by Automated count 2024-07-05 13:32:23 28 Cell/uL F 0.0-400.0 Lymphocytes [#/volume] in Blood by Automated count 2024-07-05 13:32:23 1428 Cell/uL F 620.0-3660.0 Basophils/100 leukocytes in Blood by Automated count 2024-07-05 13:32:23 0.4 % F Lymphocytes/100 leukocytes in Blood by Automated count 2024-07-05 13:32:23 20.2 % F Eosinophils [#/volume] in Blood by Automated count 2024-07-05 13:32:23 283 Cell/uL F 0.0-700.0 Leukocytes [#/volume] in Blood by Automated count 2024-07-05 13:32:21 7.1 x 10^3 cells/uL F 4.0-11.0 Neutrophils [#/volume] in Blood by Automated count 2024-07-05 13:32:21 4836 Cell/uL F 2000.0-8800.0 Monocytes [#/volume] in Blood by Automated count 2024-07-05 13:32:21 495 Cell/uL F 0.0-1100.0 Basophils/100 leukocytes in Blood by Automated count 2024-06-07 13:40:32 0.5 % F Monocytes/100 leukocytes in Blood by Automated count 2024-06-07 13:40:32 9.1 % F Leukocytes [#/volume] in Blood by Automated count 2024-06-07 13:40:32 6.8 x 10^3 cells/uL F 4.0-11.0 Neutrophils [#/volume] in Blood by Automated count 2024-06-07 13:40:32 4276 Cell/uL F 2000.0-8800.0 Lymphocytes [#/volume] in Blood by Automated count 2024-06-07 13:40:32 1612 Cell/uL F 620.0-3660.0 Monocytes [#/volume] in Blood by Automated count 2024-06-07 13:40:32 622 Cell/uL F 0.0-1100.0 Basophils [#/volume] in Blood by Automated count 2024-06-07 13:40:32 34 Cell/uL F 0.0-400.0 Neutrophils/100 leukocytes in Blood by Automated count 2024-06-07 13:40:32 62.6 % F Eosinophils/100 leukocytes in Blood by Automated count 2024-06-07 13:40:32 4.3 % F Lymphocytes/100 leukocytes in Blood by Automated count 2024-06-07 13:40:32 23.6 % F Eosinophils [#/volume] in Blood by Automated count 2024-06-07 13:40:32 294 Cell/uL F 0.0-700.0 Neutrophils/100 leukocytes in Blood by Automated count 2024-05-03 16:33:48 59.7 % F Lymphocytes/100 leukocytes in Blood by Automated count 2024-05-03 16:33:48 24.5 % F Eosinophils/100 leukocytes in Blood by Automated count 2024-05-03 16:33:48 6.3 % F Leukocytes [#/volume] in Blood by Automated count 2024-05-03 16:33:48 6 x 10^3 cells/uL F 4.0-11.0 Neutrophils [#/volume] in Blood by Automated count 2024-05-03 16:33:48 3588 Cell/uL F 2000.0-8800.0 Basophils [#/volume] in Blood by Automated count 2024-05-03 16:33:48 18 Cell/uL F 0.0-400.0 Monocytes [#/volume] in Blood by Automated count 2024-05-03 16:33:48 547 Cell/uL F 0.0-1100.0 Eosinophils [#/volume] in Blood by Automated count 2024-05-03 16:33:48 379 Cell/uL F 0.0-700.0 Basophils/100 leukocytes in Blood by Automated count 2024-05-03 16:33:48 0.3 % F Monocytes/100 leukocytes in Blood by Automated count 2024-05-03 16:33:48 9.1 % F Lymphocytes [#/volume] in Blood by Automated count 2024-05-03 16:33:48 1472 Cell/uL F 620.0-3660.0 Basophils/100 leukocytes in Blood by Automated count 2024-04-05 19:07:32 0.3 % F Lymphocytes/100 leukocytes in Blood by Automated count 2024-04-05 19:07:32 18.6 % F Monocytes/100 leukocytes in Blood by Automated count 2024-04-05 19:07:32 7.5 % F Leukocytes [#/volume] in Blood by Automated count 2024-04-05 19:07:32 8.2 x 10^3 cells/uL F 4.0-11.0 Neutrophils/100 leukocytes in Blood by Automated count 2024-04-05 19:07:32 68.8 % F Eosinophils/100 leukocytes in Blood by Automated count 2024-04-05 19:07:32 4.8 % F Neutrophils [#/volume] in Blood by Automated count 2024-04-05 19:07:32 5642 Cell/uL F 2000.0-8800.0 Lymphocytes [#/volume] in Blood by Automated count 2024-04-05 19:07:32 1525 Cell/uL F 620.0-3660.0 Basophils [#/volume] in Blood by Automated count 2024-04-05 19:07:32 25 Cell/uL F 0.0-400.0 Monocytes [#/volume] in Blood by Automated count 2024-04-05 19:07:32 615 Cell/uL F 0.0-1100.0 Eosinophils [#/volume] in Blood by Automated count 2024-04-05 19:07:32 394 Cell/uL F 0.0-700.0 Basophils/100 leukocytes in Blood by Automated count 2024-03-08 13:41:34 0.5 % F Monocytes/100 leukocytes in Blood by Automated count 2024-03-08 13:41:34 8.3 % F Neutrophils [#/volume] in Blood by Automated count 2024-03-08 13:41:34 4602 Cell/uL F 2000.0-8800.0 Eosinophils [#/volume] in Blood by Automated count 2024-03-08 13:41:34 378 Cell/uL F 0.0-700.0 Lymphocytes/100 leukocytes in Blood by Automated count 2024-03-08 13:41:34 22.6 % F Neutrophils/100 leukocytes in Blood by Automated count 2024-03-08 13:41:34 63.3 % F Eosinophils/100 leukocytes in Blood by Automated count 2024-03-08 13:41:34 5.2 % F Leukocytes [#/volume] in Blood by Automated count 2024-03-08 13:41:34 7.3 x 10^3 cells/uL F 4.0-11.0 Monocytes [#/volume] in Blood by Automated count 2024-03-08 13:41:34 603 Cell/uL F 0.0-1100.0 Lymphocytes [#/volume] in Blood by Automated count 2024-03-08 13:41:34 1643 Cell/uL F 620.0-3660.0 Basophils [#/volume] in Blood by Automated count 2024-03-08 13:41:34 36 Cell/uL F 0.0-400.0 Leukocytes [#/volume] in Blood by Automated count 2024-02-02 15:36:39 5.2 x 10^3 cells/uL F 4.0-11.0 Neutrophils [#/volume] in Blood by Automated count 2024-02-02 15:36:39 3221 Cell/uL F 2000.0-8800.0 Basophils [#/volume] in Blood by Automated count 2024-02-02 15:36:39 21 Cell/uL F 0.0-400.0 Monocytes [#/volume] in Blood by Automated count 2024-02-02 15:36:39 367 Cell/uL F 0.0-1100.0 Monocytes/100 leukocytes in Blood by Automated count 2024-02-02 15:36:39 7.1 % F Lymphocytes/100 leukocytes in Blood by Automated count 2024-02-02 15:36:39 22.6 % F Eosinophils [#/volume] in Blood by Automated count 2024-02-02 15:36:39 393 Cell/uL F 0.0-700.0 Basophils/100 leukocytes in Blood by Automated count 2024-02-02 15:36:37 0.4 % F Eosinophils/100 leukocytes in Blood by Automated count 2024-02-02 15:36:37 7.6 % F Neutrophils/100 leukocytes in Blood by Automated count 2024-02-02 15:36:37 62.3 % F Lymphocytes [#/volume] in Blood by Automated count 2024-02-02 15:36:37 1168 Cell/uL F 620.0-3660.0 Basophils/100 leukocytes in Blood by Automated count 2024-01-05 20:13:33 0.6 % F Eosinophils/100 leukocytes in Blood by Automated count 2024-01-05 20:13:33 6.2 % F Lymphocytes [#/volume] in Blood by Automated count 2024-01-05 20:13:33 1058 Cell/uL F 620.0-3660.0 Monocytes [#/volume] in Blood by Automated count 2024-01-05 20:13:33 613 Cell/uL F 0.0-1100.0 Eosinophils [#/volume] in Blood by Automated count 2024-01-05 20:13:33 358 Cell/uL F 0.0-700.0 Neutrophils/100 leukocytes in Blood by Automated count 2024-01-05 20:13:33 64.3 % F Lymphocytes/100 leukocytes in Blood by Automated count 2024-01-05 20:13:33 18.3 % F Leukocytes [#/volume] in Blood by Automated count 2024-01-05 20:13:33 5.8 x 10^3 cells/uL F 4.0-11.0 Monocytes/100 leukocytes in Blood by Automated count 2024-01-05 20:13:33 10.6 % F Neutrophils [#/volume] in Blood by Automated count 2024-01-05 20:13:33 3717 Cell/uL F 2000.0-8800.0 Basophils [#/volume] in Blood by Automated count 2024-01-05 20:13:33 35 Cell/uL F 0.0-400.0 Monocytes/100 leukocytes in Blood by Automated count Neutrophils/100 leukocytes in Blood by Automated count Monocytes [#/volume] in Blood by Automated count Leukocytes [#/volume] in Blood by Automated count Eosinophils [#/volume] in Blood by Automated count Basophils [#/volume] in Blood by Automated count Lymphocytes [#/volume] in Blood by Automated count Eosinophils/100 leukocytes in Blood by Automated count Neutrophils [#/volume] in Blood by Automated count Lymphocytes/100 leukocytes in Blood by Automated count Basophils/100 leukocytes in Blood by Automated count Phosphate [Mass/volume] in Urine MineralBone Disorder Description Draw Date Result/Unit Status Ref Range Result Comments CA CORRECTED 2024-10-25 20:58:18 8.6 mg/dL F CA*PO4 CORRCTD 2024-10-25 20:57:07 52.5 Calc F 21.0-53.0 CA/PHOS PRODUCT 2024-10-25 20:57:07 52.5 Calc F 21.0-53.0 Calcium [Mass/volume] in Serum or Plasma 2024-10-25 19:56:54 8.6 mg/dL F 8.7-10.4 Phosphate [Mass/volume] in Serum or Plasma 2024-10-25 19:56:54 6.1 mg/dL F 2.4-5.1 Parathyrin.intact [Mass/volume] in Serum or Plasma 2024-10-25 17:03:22 761 pg/mL F 18.0-80.0 Alkaline phosphatase [Enzymatic activity/volume] in Serum or Plasma 2024-10-04 23:23:21 74 U/L F 46.0-116.0 CA CORRECTED 2024-09-21 09:30:19 10 mg/dL F CA/PHOS PRODUCT 2024-09-21 09:29:22 60 Calc F 21.0-53.0 CA*PO4 CORRCTD 2024-09-21 09:29:22 60 Calc F 21.0-53.0 Calcium [Mass/volume] in Serum or Plasma 2024-09-21 08:06:52 10 mg/dL F 8.7-10.4 Parathyrin.intact [Mass/volume] in Serum or Plasma 2024-09-21 02:47:25 570 pg/mL F 18.0-80.0 Phosphate [Mass/volume] in Serum or Plasma 2024-09-21 02:06:19 6 mg/dL F 2.4-5.1 25-Hydroxyvitamin D3+25-Hydroxyvitamin D2 [Mass/volume] in Serum or Plasma 2024-09-07 08:20:54 42 ng/mL F Alkaline phosphatase [Enzymatic activity/volume] in Serum or Plasma 2024-09-06 18:08:17 70 U/L F 46.0-116.0 CA CORRECTED 2024-08-24 07:28:44 9.3 mg/dL F CA/PHOS PRODUCT 2024-08-24 07:27:51 53.9 Calc F 21.0-53.0 CA*PO4 CORRCTD 2024-08-24 07:27:51 53.9 Calc F 21.0-53.0 Calcium [Mass/volume] in Serum or Plasma 2024-08-24 07:21:44 9.3 mg/dL F 8.7-10.4 Phosphate [Mass/volume] in Serum or Plasma 2024-08-24 02:38:37 5.8 mg/dL F 2.4-5.1 Parathyrin.intact [Mass/volume] in Serum or Plasma 2024-08-24 02:11:25 649 pg/mL F 18.0-80.0 Alkaline phosphatase [Enzymatic activity/volume] in Serum or Plasma 2024-08-09 16:39:22 66 U/L F 46.0-116.0 Alkaline phosphatase [Enzymatic activity/volume] in Serum or Plasma 2024-07-05 13:20:14 74 U/L F 46.0-116.0 25-Hydroxyvitamin D3+25-Hydroxyvitamin D2 [Mass/volume] in Serum or Plasma 2024-06-08 02:17:34 45 ng/mL F Alkaline phosphatase [Enzymatic activity/volume] in Serum or Plasma 2024-06-07 13:18:32 82 U/L F 46.0-116.0 Alkaline phosphatase [Enzymatic activity/volume] in Serum or Plasma 2024-05-03 20:38:02 82 U/L F 46.0-116.0 Alkaline phosphatase [Enzymatic activity/volume] in Serum or Plasma 2024-04-05 15:34:40 90 U/L F 46.0-116.0 25-Hydroxyvitamin D3+25-Hydroxyvitamin D2 [Mass/volume] in Serum or Plasma 2024-03-08 17:33:17 41.7 ng/mL F Alkaline phosphatase [Enzymatic activity/volume] in Serum or Plasma 2024-03-08 13:35:29 91 U/L F 46.0-116.0 Alkaline phosphatase [Enzymatic activity/volume] in Serum or Plasma 2024-02-02 15:56:39 98 U/L F 46.0-116.0 Alkaline phosphatase [Enzymatic activity/volume] in Serum or Plasma 2024-01-05 14:38:29 111 U/L F 46.0-116.0 CA CORRECTED 2023-11-09 06:40:10 9.1 mg/dL F CA*PO4 CORRCTD 2023-11-09 06:34:49 52.8 Calc F 21.0-53.0 CA/PHOS PRODUCT 2023-11-09 06:34:49 51 Calc F 21.0-53.0 Calcium [Mass/volume] in Serum or Plasma 2023-11-09 06:31:16 8.8 mg/dL F 8.7-10.4 Parathyrin.intact [Mass/volume] in Serum or Plasma 2023-11-08 21:21:41 422 pg/mL F 18.0-80.0 25-Hydroxyvitamin D3+25-Hydroxyvitamin D2 [Mass/volume] in Serum or Plasma 2023-11-08 21:21:34 37.6 ng/mL F Phosphate [Mass/volume] in Serum or Plasma 2023-11-08 18:07:56 5.8 mg/dL F 2.4-5.1 Alkaline phosphatase [Enzymatic activity/volume] in Serum or Plasma Nutrition Description Draw Date Result/Unit Status Ref Range Result Comments Potassium [Moles/volume] in Serum or Plasma 2024-10-05 05:32:39 4.5 mEq/L F 3.5-5.5 A/G RATIO 2024-10-04 23:24:21 1.8 Calc F 1.0-2.5 GLOBULIN 2024-10-04 23:24:21 2.2 g/dL F 0.9-5.0 Protein [Mass/volume] in Serum or Plasma 2024-10-04 23:23:21 6.2 g/dL F 5.7-8.2 Albumin [Mass/volume] in Serum or Plasma by Bromocresol green (BCG) dye binding method 2024-10-04 23:23:21 4 g/dL F 3.4-4.8 Bicarbonate [Moles/volume] in Serum or Plasma 2024-10-04 23:23:21 23 mEq/L F 20.0-31.0 Glucose [Mass/volume] in Serum or Plasma 2024-10-04 23:23:21 97 mg/dL F 70.0-99.0 Lactate dehydrogenase [Enzymatic activity/volume] in Serum or Plasma 2024-10-04 23:23:21 228 U/L F 120.0-246.0 Potassium [Moles/volume] in Serum or Plasma 2024-09-07 04:51:24 4.5 mEq/L F 3.5-5.5 A/G RATIO 2024-09-06 18:09:52 1.7 Calc F 1.0-2.5 GLOBULIN 2024-09-06 18:09:52 2.3 g/dL F 0.9-5.0 Glucose [Mass/volume] in Serum or Plasma 2024-09-06 18:08:17 116 mg/dL F 70.0-99.0 Lactate dehydrogenase [Enzymatic activity/volume] in Serum or Plasma 2024-09-06 18:08:17 186 U/L F 120.0-246.0 Albumin [Mass/volume] in Serum or Plasma by Bromocresol green (BCG) dye binding method 2024-09-06 18:08:17 4 g/dL F 3.4-4.8 Bicarbonate [Moles/volume] in Serum or Plasma 2024-09-06 18:08:17 22 mEq/L F 20.0-31.0 Protein [Mass/volume] in Serum or Plasma 2024-09-06 18:08:17 6.3 g/dL F 5.7-8.2 Potassium [Moles/volume] in Serum or Plasma 2024-08-10 03:31:07 4.6 mEq/L F 3.5-5.5 GLOBULIN 2024-08-09 16:40:17 1.9 g/dL F 0.9-5.0 A/G RATIO 2024-08-09 16:40:17 2.2 Calc F 1.0-2.5 Protein [Mass/volume] in Serum or Plasma 2024-08-09 16:39:22 6.1 g/dL F 5.7-8.2 Albumin [Mass/volume] in Serum or Plasma by Bromocresol green (BCG) dye binding method 2024-08-09 16:39:22 4.2 g/dL F 3.4-4.8 Bicarbonate [Moles/volume] in Serum or Plasma 2024-08-09 16:39:22 24 mEq/L F 20.0-31.0 Glucose [Mass/volume] in Serum or Plasma 2024-08-09 16:39:22 87 mg/dL F 70.0-99.0 Lactate dehydrogenase [Enzymatic activity/volume] in Serum or Plasma 2024-08-09 16:39:22 191 U/L F 120.0-246.0 Potassium [Moles/volume] in Serum or Plasma 2024-07-05 17:46:40 4.7 mEq/L F 3.5-5.5 GLOBULIN 2024-07-05 13:20:23 2.2 g/dL F 0.9-5.0 A/G RATIO 2024-07-05 13:20:23 1.9 Calc F 1.0-2.5 Albumin [Mass/volume] in Serum or Plasma by Bromocresol green (BCG) dye binding method 2024-07-05 13:20:14 4.2 g/dL F 3.4-4.8 Glucose [Mass/volume] in Serum or Plasma 2024-07-05 13:20:14 100 mg/dL F 70.0-99.0 Bicarbonate [Moles/volume] in Serum or Plasma 2024-07-05 13:20:14 24 mEq/L F 20.0-31.0 Lactate dehydrogenase [Enzymatic activity/volume] in Serum or Plasma 2024-07-05 13:20:14 192 U/L F 120.0-246.0 Protein [Mass/volume] in Serum or Plasma 2024-07-05 13:20:14 6.4 g/dL F 5.7-8.2 Potassium [Moles/volume] in Serum or Plasma 2024-06-07 18:21:25 4.7 mEq/L F 3.5-5.5 A/G RATIO 2024-06-07 13:19:12 2 Calc F 1.0-2.5 GLOBULIN 2024-06-07 13:19:12 2.2 g/dL F 0.9-5.0 Bicarbonate [Moles/volume] in Serum or Plasma 2024-06-07 13:18:32 23 mEq/L F 20.0-31.0 Glucose [Mass/volume] in Serum or Plasma 2024-06-07 13:18:32 101 mg/dL F 70.0-99.0 Lactate dehydrogenase [Enzymatic activity/volume] in Serum or Plasma 2024-06-07 13:18:32 202 U/L F 120.0-246.0 Albumin [Mass/volume] in Serum or Plasma by Bromocresol green (BCG) dye binding method 2024-06-07 13:18:32 4.3 g/dL F 3.4-4.8 Protein [Mass/volume] in Serum or Plasma 2024-06-07 13:18:32 6.5 g/dL F 5.7-8.2 Potassium [Moles/volume] in Serum or Plasma 2024-05-04 05:27:33 4.5 mEq/L F 3.5-5.5 GLOBULIN 2024-05-03 20:38:24 2.1 g/dL F 0.9-5.0 A/G RATIO 2024-05-03 20:38:24 2.1 Calc F 1.0-2.5 Bicarbonate [Moles/volume] in Serum or Plasma 2024-05-03 20:38:02 23 mEq/L F 20.0-31.0 Glucose [Mass/volume] in Serum or Plasma 2024-05-03 20:38:02 123 mg/dL F 70.0-99.0 Albumin [Mass/volume] in Serum or Plasma by Bromocresol green (BCG) dye binding method 2024-05-03 20:38:02 4.4 g/dL F 3.4-4.8 Lactate dehydrogenase [Enzymatic activity/volume] in Serum or Plasma 2024-05-03 20:38:02 199 U/L F 120.0-246.0 Protein [Mass/volume] in Serum or Plasma 2024-05-03 20:38:02 6.5 g/dL F 5.7-8.2 Potassium [Moles/volume] in Serum or Plasma 2024-04-06 03:40:02 4.5 mEq/L F 3.5-5.5 A/G RATIO 2024-04-05 15:35:34 1.8 Calc F 1.0-2.5 GLOBULIN 2024-04-05 15:35:34 2.4 g/dL F 0.9-5.0 Bicarbonate [Moles/volume] in Serum or Plasma 2024-04-05 15:34:40 24 mEq/L F 20.0-31.0 Albumin [Mass/volume] in Serum or Plasma by Bromocresol green (BCG) dye binding method 2024-04-05 15:34:40 4.2 g/dL F 3.4-4.8 Glucose [Mass/volume] in Serum or Plasma 2024-04-05 15:34:40 111 mg/dL F 70.0-99.0 Lactate dehydrogenase [Enzymatic activity/volume] in Serum or Plasma 2024-04-05 15:34:40 203 U/L F 120.0-246.0 Protein [Mass/volume] in Serum or Plasma 2024-04-05 15:34:40 6.6 g/dL F 5.7-8.2 Potassium [Moles/volume] in Serum or Plasma 2024-03-09 04:17:27 4.9 mEq/L F 3.5-5.5 A/G RATIO 2024-03-08 13:35:39 1.7 Calc F 1.0-2.5 GLOBULIN 2024-03-08 13:35:39 2.5 g/dL F 0.9-5.0 Albumin [Mass/volume] in Serum or Plasma by Bromocresol green (BCG) dye binding method 2024-03-08 13:35:29 4.2 g/dL F 3.4-4.8 Bicarbonate [Moles/volume] in Serum or Plasma 2024-03-08 13:35:29 22 mEq/L F 20.0-31.0 Glucose [Mass/volume] in Serum or Plasma 2024-03-08 13:35:29 100 mg/dL F 70.0-99.0 Lactate dehydrogenase [Enzymatic activity/volume] in Serum or Plasma 2024-03-08 13:35:29 190 U/L F 120.0-246.0 Protein [Mass/volume] in Serum or Plasma 2024-03-08 13:35:29 6.7 g/dL F 5.7-8.2 Potassium [Moles/volume] in Serum or Plasma 2024-02-02 17:18:38 4 mEq/L F 3.5-5.5 A/G RATIO 2024-02-02 15:57:25 1.7 Calc F 1.0-2.5 GLOBULIN 2024-02-02 15:57:25 2.4 g/dL F 0.9-5.0 Glucose [Mass/volume] in Serum or Plasma 2024-02-02 15:56:47 146 mg/dL F 70.0-99.0 Protein [Mass/volume] in Serum or Plasma 2024-02-02 15:56:39 6.4 g/dL F 5.7-8.2 Albumin [Mass/volume] in Serum or Plasma by Bromocresol green (BCG) dye binding method 2024-02-02 15:56:39 4 g/dL F 3.4-4.8 Bicarbonate [Moles/volume] in Serum or Plasma 2024-02-02 15:56:39 21 mEq/L F 20.0-31.0 Lactate dehydrogenase [Enzymatic activity/volume] in Serum or Plasma 2024-02-02 15:56:39 200 U/L F 120.0-246.0 Potassium [Moles/volume] in Serum or Plasma 2024-01-06 02:00:22 4.5 mEq/L F 3.5-5.5 A/G RATIO 2024-01-05 14:39:03 1.5 Calc F 1.0-2.5 GLOBULIN 2024-01-05 14:39:03 2.6 g/dL F 0.9-5.0 Glucose [Mass/volume] in Serum or Plasma 2024-01-05 14:38:29 175 mg/dL F 70.0-99.0 Bicarbonate [Moles/volume] in Serum or Plasma 2024-01-05 14:38:29 22 mEq/L F 20.0-31.0 Protein [Mass/volume] in Serum or Plasma 2024-01-05 14:38:29 6.6 g/dL F 5.7-8.2 Albumin [Mass/volume] in Serum or Plasma by Bromocresol green (BCG) dye binding method 2024-01-05 14:38:29 4 g/dL F 3.4-4.8 Lactate dehydrogenase [Enzymatic activity/volume] in Serum or Plasma 2024-01-05 14:38:29 198 U/L F 120.0-246.0 Albumin [Mass/volume] in Serum or Plasma by Bromocresol green (BCG) dye binding method 2023-12-08 14:57:43 3.9 g/dL F 3.4-4.8 Glucose [Mass/volume] in Serum or Plasma 2023-12-08 14:57:43 208 mg/dL F 70.0-99.0 Potassium [Moles/volume] in Serum or Plasma 2023-11-09 06:31:16 4.8 mEq/L F 3.5-5.5 Albumin [Mass/volume] in Serum or Plasma by Bromocresol green (BCG) dye binding method 2023-11-08 18:07:56 3.6 g/dL F 3.4-4.8 Bicarbonate [Moles/volume] in Serum or Plasma 2023-11-08 18:07:56 22 mEq/L F 20.0-31.0 Glucose [Mass/volume] in Serum or Plasma 2023-11-08 18:07:56 137 mg/dL F 70.0-99.0 Albumin [Mass/volume] in Serum or Plasma by Bromocresol green (BCG) dye binding method Glucose [Mass/volume] in Serum or Plasma Protein [Mass/volume] in Serum or Plasma GLOBULIN Lactate dehydrogenase [Enzymatic activity/volume] in Serum or Plasma Potassium [Moles/volume] in Serum or Plasma Bicarbonate [Moles/volume] in Serum or Plasma A/G RATIO Encounters No encounter information to report Immunizations Ordered Immunization Name Filled Immunization Name Date Status Comments Refusal Reason Hep B, adult 2024-09-05 14:55:13 Hep B, adult 2024-08-08 14:13:00 Influenza, MDCK, trivalent, preservative 2024-08-06 13:45:00 Hep B, adult 2024-07-04 14:10:00 Hep B, adult 2024-06-06 13:45:00 Hep B, adult 2024-02-01 14:20:00 Hep B, adult 2024-01-04 14:35:00 Hep B, adult 2023-12-07 15:27:00 TST-PPD intradermal 2023-11-16 15:24:42 Pneumococcal conjugate PCV20, polysaccharide [id number] conjugate, adjuvant, PF 2023-11-16 15:23:00 Plan of Treatment Planned Activity Provider Planned Date Details Commen ts Diagnostic Test Pending [facility] 2024-01-15 05:00:00 25-Hydroxyvitamin D3+25-Hydroxyvitamin D2 [Mass/volume] in Serum or Plasma [code = 99947-3] Diagnostic Test Pending [facility] 2023-11-16 06:00:00 Alanine aminotransferase [Enzymatic activity/volume] in Serum or Plasma [code = 1742-6] Diagnostic Test Pending [facility] 2023-11-16 06:00:00 Sodium [Moles/volume] in Serum or Plasma [code = 2951-2] Diagnostic Test Pending [facility] 2024-04-02 06:37:39 Hemoglobin [Mass/volume] in Blood [code = 718-7] Diagnostic Test Pending [facility] 2024-05-16 05:00:00 Ferritin [Mass/volume] in Serum or Plasma [code = 2276-4] Diagnostic Test Pending [facility] 2023-11-16 06:00:00 Glucose [Mass/volume] in Serum or Plasma [code = 2345-7] Diagnostic Test Pending [facility] 2023-11-16 06:00:00 Parathyrin.intact [Mass/volume] in Serum or Plasma [code = 2731-8] Diagnostic Test Pending [facility] 2023-11-16 06:00:00 Albumin [Mass/volume] in Serum or Plasma by Bromocresol green (BCG) dye binding method [code = 47313-0] Diagnostic Test Pending [facility] 2023-11-12 06:00:00 Creatinine [Mass/volume] in Serum or Plasma [code = 2160-0] Diagnostic Test Pending [facility] 2024-10-16 06:00:00 Aluminum [Mass/volume] in Serum or Plasma [code = 5574-9] Diagnostic Test Pending [facility] 2024-03-26 21:47:34 In-Center Hemodialysis Treatment [code = AZW765] Diet Order [facility] November 13, 2023 Diet Calorie 30 kcal/kg Fluid Value 1000 mL/d Phosphorus Value 1200 mg/d Potassium Value 2000 mg/d Protein Value 1.2 gm/kg Sodium Value 2000 mg/d Calculated Weight [facility]9 [facility] 06:00:00Tubersol [code = 076126]
--- OUTSIDE RECORDS SUMMARY | 2024-11-07 17:27 | XMS_ITS | Clinical Summary ---
Author Organization [facility] Address [address] [place] [address]. [place], [place] [address] [place] [address] Care Team Providers Care Clock And Watch Hands Mounter Name Role Phone Gia Clark PA-C Primary Care Provider [phone] Allergies No known active allergies Medications sodium bicarbonate 650 MG tablet Take 650 mg by mouth 2 (two) times daily. Active hydrALAZINE (APRESOLINE) 10 MG tablet Take 10 mg by mouth 3 (three) times daily. Active metoprolol succinate ER (TOPROL-XL) 50 MG 24 hr tablet Take 100 mg by mouth daily. Active amLODIPine (NORVASC) 10 MG tablet Take 10 mg by mouth daily. Active aspirin EC (ECOTRIN) 81 MG tablet Take 81 mg by mouth daily. Active vitamin D3, cholecalciferol, 5000 UNITS capsule Take 1 capsule by mouth daily. Active Active Problems No known active problems Social History Tobacco Use Types Packs/Day Years Used Date Smoking Tobacco: Former Cigarettes Smokeless Tobacco: Former Snuff Quit: 04/2022 Alcohol Use Standard Drinks/Week Comments Not Currently 0 (1 standard drink = 0.6 oz pur e alcohol) recently stopped all alcohol Sex and Gender Information Value Date Recorded Sex Assigned at Not on file Legal Sex Male 2:20 PM CDT Gender Identity Not on file Sexual Orientation Not on file Last Filed Vital Signs Vital Sign Reading Time Taken Comments Blood Pressure 146/75 06/13/2022 8:54 AM CDT Pulse 55 06/13/2022 8:54 AM CDT Temperature 36.6 ??C (97.9 ??F) 06/13/2022 8:54 AM CD T Respiratory Rate - - Oxygen Saturation 100% 06/13/2022 8:54 AM CDT Inhaled Oxygen Concentration - - Weight 90.7 kg (200 lb) 06/08/2022 11:07 AM CDT Height 182.9 cm (6') 06/08/2022 11:07 AM CDT Body Mass Index 27.12 06/08/2022 11:07 AM CDT Plan of Treatment Health Maintenance Due Date Last Done Comments Colorectal Cancer Screening Colonoscopy (10 Years) 1960 Annual Physical 1963 Hepatitis C 1978 DTaP, Tdap and Td Vaccines (1 - Tdap) 1979 Zoster Vaccines (1 of 2) 2010 COVID-19 Vaccine (5 - season) 2024 04/01/2022, 08/26/2021, 12/16/2020, Additional history exists Influenza Adult (#1) 2024 08/10/2021, 07/31/20 20 RSV Immunization or 60+ Years (1 - 1-dose 75+ series) 2035 Meningococcal Vaccine Aged Out No pia angelita eligible based on patient's age to complete this topic Pneumococcal Vaccine: Pediatrics (0 to 5 Years) and At-Risk Patients (6 to 64 Years) Aged Out No longer eligible based on patient's age to complete this topic RSV Immunizations Under 20 Months Aged Out No longer eligible based on patient's age to complete this topic Medical Devices Implanted Type Area Real Time Trader Device Identifier Shelf Expiration Date Model / Serial / Lot Dirk Clareon Iol Implanted:Qty: 1 on 06/13/2022 by Jung Rosales MD at [facility] Left: Eye DIRK - SURGICAL DIV 02/27/2025 [id number] / [id number] / [place] [address] [facility] Care Teams Clock And Watch Hands Mounter Relationship Specialty Start Date End Date Gia Clark PA-C PCP - General PHYSICIAN LABORER STEEL HANDLING 06/13/22
--- OUTSIDE RECORDS SUMMARY | 2024-11-07 17:27 | XMS_ITS | Clinical Summary ---
Author Organization [facility] [address] Address [address] [place] [address] Care Team Providers Care Adult Secondary Education Instructor Name Role Phone Gia Clark Primary Care Provider [phone] Harry Loredo MD Unavailable Rachell Mcnulty MD Unavailable [phone] Beata Feldman RN Unavailable [phone] Allergies No known active allergies Medications sodium bicarbonate 650 mg tabletIndication s:renal tubular acidosis Take 1 tablet (650 mg total) by mouth 2 (two) times a day 07/04/2022 Active hydrALAZINE (APRESOLINE) 25 mg tabletIndication s:hypertension Take 1 tablet (25 mg total) by mouth 2 (two) times a day 08/01/2022 Active amLODIPine (NORVASC) 10 mg tabletIndication s:hypertension Take 1 tablet (10 mg total) by mouth every morning 08/01/2022 Active furosemide (LASIX) 20 mg tablet Take 1 tablet (20 mg total) by mouth every morning Active sevelamer (RENAGEL) 800 mg tablet Take 1 tablet (800 mg total) by mouth 3 (three) times a day with meals 02/08/2024 Active apixaban (ELIQUIS) 5 mg tabletIndication s:palpitations, tachycardia, bradycardia Take 1 tablet (5 mg total) by mouth 2 (two) times a day 180 tablet 3 03/19/2024 06/04/20 25 Active metoprolol XL (TOPROL-XL) 200 mg extended release tablet Take 1 tablet (200 mg total) by mouth daily 90 tablet 3 05/03/2024 05/03/20 25 Active Active Problems Problem Noted Date Diagnosed Date Typical atrial flutter (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) 02/09/2024 End stage renal disease ([facility]) 09/02/2022 Overview (09/02/2022): Added automatically from request for surgery [id number] Hypertension 02/14/2022 Renal mass 02/14/2022 Immunizations Name Administration Dates Next Due Influenza, Quadrivalent, Spl it, Preservative Free, Intramuscular 08/10/2021,07/31/2020 Sars-CoV-2, Unspecified 07/26/2021,01/24/2021, Tdap 07/15/2022 Surgical History Surgery Date Site/Laterality Comments CATARACT EXTRACTION 10/16/2021 - 10/15/2022 UMBILICAL HERNIA REPAIR 2021 AV FISTULA PLACEMENT, RADIOCEPHALIC 09/20/2022 Right w/ ligation of cephalic side branch NEPHRECTOMY 10/16/2021 - 10/15/2022 Right Medical History Medical History Date Comments Hypertension Renal mass Chronic kidney disease Family History Medical History Relation Name Comments Diabetes Brother Cancer Father Cancer Mother Relation Name Status Comments Brother Alive Father Mother Social History Tobacco Use Types Packs/Day Years Used Date Smoking Tobacco: Every Day Cigarettes 0.3 40 Passive Smoke Exposure: Never Tobacco Cessation:Ready to Q uit: Not Asked; Counseling Given: Not Answered AUDIT-C Answer Date Recorded Q1: How often do you have a drink containing alcohol? 4 or more times a week 02/13/2024 Q2: How many drinks containi ng alcohol do you have on a typical day when you are drinking? 1 or 2 Q3: How often do you have si x or more drinks on one occasion? Never 02/13/2024 Personal Safety Answer Date Recorded Have you ever been in or are you currently in a harmful physical or emotional relationship or is someone making you feel afraid or unsafe? Denies 04/22/2024 Sex and Gender Information Value Date Recorded Sex Assigned at Not on file Legal Sex Male 11:34 AM CDT Gender Identity Not on file Sexual Orientation Not on file Obstetrics History Last Filed Vital Signs Vital Sign Reading Time Taken Comments Blood Pressure 128/72 05/08/2024 2:40 PM CDT Pulse 60 05/08/2024 2:40 PM CDT Temperature 36.2 ??C (97.1 ??F) 04/22/2024 10:22 AM C DT Respiratory Rate 24 04/22/2024 12:02 PM CDT Oxygen Saturation 96% 04/22/2024 12:02 PM CDT Inhaled Oxygen Concentration - - Weight 90.7 kg (200 lb) 06/05/2024 10:39 AM CDT Height 182.9 cm (6') 06/05/2024 10:39 AM CDT Body Mass Index 27.12 06/05/2024 10:39 AM CDT Plan of Treatment Health Maintenance Due Date Last Done Comments Colon Cancer Screening-Colonoscopy 1960 Depression Screening 1960 Hepatitis C Screening 1960 Prostate Cancer Screening-PSA 1960 Pneumococcal vaccine <65 (1 of 2 - PCV) 1966 Hepatitis B Screening 1978 Regular Well Visit/Exam 18-64 1978 Zoster Vaccine (1 of 2) 2010 Covid-19 Vaccine (2023-2 5 season) 2024 04/01/2022, 08/26/2021, 07/26/2021, Additional history exists Influenza Vaccine (#1) 2024 08/10/2021, 2019 DTaP/Tdap/Td Vaccine (2 - Td or Tdap) 07/15/2032 07/15/2022 Insurance [facility] [employer] P[employer] [place] Care Teams Adult Secondary Education Instructor Relationship Specialty Start Date End Date Gia Clark PA [address] [place] [address] PCP - General Physician Motion Picture Equipment Supervisor 09/15/22 Harry Loredo MD [address] [place] [address] Consulting Physician Cardiovascular Disease 03/18/24 Rachell Mcnulty MD [address] [facility] [address] [place] [address] Referring Physician Nephrology 06/05/24 Beata Feldman, RN [address] [place] [address] Child And Youth Program Assistant 06/05/24
--- OUTSIDE RECORDS SUMMARY | 2024-11-07 17:27 | XMS_ITS | Patient Health Summary ---
Author Organization [facility] Address [address] [facility] [place] [address] Care Team Providers Care Case Managers Name Role Phone Gia Clark PA-C Primary Care Provider [phone] Note from [facility],non-owned Affiliates and Associated Physician Practices is amultiple site organization consisting of ambulatory clinics and hospital sitesin [place], [place], [place] and [place]. This disclosure is being madepursuant to the Care Everywhere program and may not contain all information available regarding this patient. Last updated 18.[facility] Social History Tobacco Use Types Packs/Day Years Used Date Smoking Tobacco: Never Assessed Sex and Gender Information Value Date Recorded Sex Assigned at Not on file Gender Identity Not on file Sexual Orientation Not on file Procedures * FLOW CYTOMETRY TISSUE PANEL(Performed 06/14/2023) Performed for Generalized enlarged lymph nodes Results * FLOW CYTOMETRY TISSUE PANEL (06/14/2023 10:46 AM CDT) Case Report Flow Cytometry ?Case: [id number] ? Authorizing Provider: ??Cristiano Joe MD ?Collected: ? 06/14/2023 10:46 AM ? Ordering Location: ? [facility] ? Received: ?06/14/2023 04:46 PM ? Pathologist: ? Jamel Ashby MD ? Specimen: ?Lymph Node, LEFT PELVIC AREA ? 06/15/2023 8:52 AM [facility] Final Diagnosis Lymph node, left pelvic area, flow cytometric immunophenotypic analysis: - Insufficient hematopoietic cells for analysis. - See interpretation. 06/15/2023 8:52 AM [facility] Flow Cytometry Interpretation Preliminary characterization of the lymph node specimen demonstrates too few hematopoietic cells for flow cytometric analysis. A cytospin prepared from the flow cytometry specimen is reviewed for chemistry quality control technician purposes. Flow cytometry is not performed. 06/15/2023 8:52 AM [facility] Flow Cytometry Results Too few hematopoietic cells for flow cytometric analysis. 06/15/2023 8:52 AM [facility] Reason for test Generalized enlarged lymph nodes 785.6 06/15/2023 8:52 AM [facility] Client Specimen ID # [id number] 06/15/2023 8:52 AM [facility] Pathologist Location at [facility] 06/15/2023 8:52 AM [facility] Disclaimer Test performed at [facility], [address] [place] [address], [address]. *The established laboratory minimum viability is 70%. Values below the minimum may result in the failure to find an abnormal population of cells. This test was developed and its performance characteristics determined by the Flow Cytometry Laboratory. It has not been cleared by the [place] Food and Drug Administration (FDA). The FDA has determined that such clearance or approval is not necessary. This test is used for clinical purposes. It should not be regarded as investigational or for research. This laboratory is regulated under the Clinical Laboratory Improvement Amendments of 1998 (CLIA) as a qualified to perform high complexity clinical testing. 06/15/2023 8:52 AM CDT [facility] Embedded Images 8:52 AM CDT [facility] Pathology/Cytolo gy ENTIRE LYMPH NODE / Unknown 06/14/2023 10:46 AM CDT 06/14/2023 4:46 PM CDT Cristiano Joe MD LAB - PATHOLOGY/CYTO LOGY ORDERABLES [facility] [address] [phone] Care Teams Case Managers Relationship Specialty Start Date End Date Gia Clark PA-C [address] [place] [phone] PCP - General 05/24/22
--- OUTSIDE RECORDS SUMMARY | 2024-11-07 17:27 | XMS_ITS | Continuity of Care Document ---
Author Organization [facility] Address [address] [place] [address] [address] [facility] [address] [place] [address] Phone Care Team Providers Care Top Lift Trimmer Name Role Phone Marcos OD, Sebas Unavailable Unavailable Advance Directives Directive Yes / No Effective Date File Name No Information Encounters Encounter Description Practice Location Reason(s) For Visit Diagnoses Date Provider Providers Copied on Encounter [facility], [id number] [place] [address] [address], [place], [place], [id number], [place] tel:[phone] [facility]3] No Information Aug-0 4-200 5 Marcos OD Sebas. [address], [place], [address], [place]. tel:[phone] Family History Family Member Type Diagnosis Age At Onset No Information Payers Payer name Insurance type Covered constitution party ID Authoriza tijean(s) [facility] CI [id number] Social History Type Description Quantity Date Captured Comments Sex Male Smoking Status No Information Chief Complaint And Reason For Visit No Information Reason For Referral Reason For Referral No Information History Of Present Illness Encounter Date Complaint History Of Prese nt Illness No Information Functional Status Date Functional Assessmen t No Information Instructions Date Instruction Additional Infor mation No Information Assessments Type Assessment Date No Information Patient Care Teams Name Effective Dates (start - stop) Status Members No Information
--- OUTSIDE RECORDS SUMMARY | 2024-11-07 17:27 | XMS_ITS | Clinical Summary ---
Author Organization [facility] [employer] Address [address] [facility] [place] [address] Care Team Providers Care Photographic Laboratory Supervisor Name Role Phone Gia Clark PA-C Primary Care Provider [phone] Source Comments [facility] [employer],non-owned Affiliates and Associated Physician Practices is amultiple site organization consisting of ambulatory clinics and hospital sitesin [place], [place]. This disclosure is being madepursuant to the Care Everywhere program and may not contain all information available regarding this patient. Last updated 18.[facility] [employer] Social History Tobacco Use Types Packs/Day Years Used Date Smoking Tobacco: Never Assessed Sex and Gender Information Value Date Recorded Sex Assigned at Not on file Gender Identity Not on file Sexual Orientation Not on file Plan of Treatment Health Maintenance Due Date Last Done Comments COLOGUARD (AGES 45-75) - COL ON CA SCREENING 1960 COLON MONITORING 1960 COLONOSCOPY - COLON CA SCREENING 1960 CT COLONOGRAPHY - COLON CA SCREENING 1960 Colorectal Cancer Screening 1960 FIT - COLON CA SCREENING 1960 FLEX SIG - COLON CA SCREENING 1960 LIPID TESTING 1960 HIV SCREENING 1975 HEPATITIS C SCREENING 10/27/1978 DTAP/TDAP/TD VACCINES (1 - Tdap) 1979 PNEUMOCOCCAL VACCINE 50+ (1 of 1 - PCV) 2010 ZOSTER VACCINE (1 of 2) 2010 COVID-19 VACCINE ( - 2023-2 5 season) 2024 INFLUENZA VACCINE (#1) 2024 DEPRESSION SCREENING 10/16/2024 Respiratory Syncytial Virus (RSV) Vaccine Pt: or over 60 yrs (1 - 1-dose 75+ series) 2035 HEPATITIS B VACCINE Aged Out No longe r eligible based on patient's age to complete this topic HIB VACCINE Aged Out No longer eligi ble based on patient's age to complete this topic HPV VACCINE Aged Out No longer eligi ble based on patient's age to complete this topic MENINGOCOCCAL (Group B) VACCINE Aged Out No longer eligible based on patient's age to complete this topic MENINGOCOCCAL VACCINE Aged Out No pia angelita eligible based on patient's age to complete this topic PNEUMOCOCCAL VACCINE Aged Out No long er eligible based on patient's age to complete this topic Care Teams Photographic Laboratory Supervisor Relationship Specialty Start Date End Date Gia Clark PA-C [address] [place] [address] PCP - General 05/24/22
--- OUTSIDE RECORDS SUMMARY | 2024-11-07 17:27 | XMS_ITS | Encounter Summary ---
Author Organization [facility] Address [address] [facility] [place] [address] Care Team Providers Care Director Medical Safety Name Role Phone Gia Clark PA-C Primary Care Provider [phone] Encounter Details Date Type Department Care Team (Late st Contact Info) Description 06/14/2023 Lab Requisition [facility] - Pathology Lab [address] [place] [address] Cristiano Joe MD [address] [place] [address] Generalized enlarged lymph nodes Social History Tobacco Use Types Packs/Day Years Used Date Smoking Tobacco: Never Assessed Sex and Gender Information Value Date Recorded Sex Assigned at Not on file Gender Identity Not on file Sexual Orientation Not on file documented as of this encounter Plan of Treatment Not on file documented as of this encounter Procedures Procedure Name Priority Date/Time Associated Diagnosis Comments FLOW CYTOMETRY TISSUE PANEL Routine 06/14/2023 10:46 AM CDT Generalized enlarged lymph nodes documented in this encounter Results * FLOW CYTOMETRY TISSUE PANEL (06/14/2023 10:46 AM CDT) Case Report Flow Cytometry ?Case: [id number] ? Authorizing Provider: ??Cristiano Joe MD ?Collected: ? 06/14/2023 10:46 AM ? Ordering Location: ? [facility] ? Received: ?06/14/2023 04:46 PM ? Pathologist: ? Jamel Ashby MD ? Specimen: ?Lymph Node, LEFT PELVIC AREA ? 06/15/2023 8:52 AM [facility] Final Diagnosis Lymph node, left pelvic area, flow cytometric immunophenotypic analysis: - Insufficient hematopoietic cells for analysis. - See interpretation. 06/15/2023 8:52 AM [facility] Flow Cytometry Interpretation Preliminary characterization of the lymph node specimen demonstrates too few hematopoietic cells for flow cytometric analysis. A cytospin prepared from the flow cytometry specimen is reviewed for quality control scientist purposes. Flow cytometry is not performed. 06/15/2023 8:52 AM [facility] Flow Cytometry Results Too few hematopoietic cells for flow cytometric analysis. 06/15/2023 8:52 AM [facility] Reason for test Generalized enlarged lymph nodes 785.6 06/15/2023 8:52 AM [facility] Client Specimen ID # [id number] 06/15/2023 8:52 AM [facility] Pathologist Location at [facility] 06/15/2023 8:52 AM [facility] Disclaimer Test performed at [facility], [address] [place], [place] [address], [address]. *The established laboratory minimum viability is 70%. [...] complexity clinical testing. 06/15/2023 8:52 AM CDT [facility] Embedded Images 8:52 AM CDT [facility] Pathology/Cytolo gy ENTIRE LYMPH NODE / Unknown 06/14/2023 10:46 AM CDT 06/14/2023 4:46 PM CDT Cristiano Joe MD LAB - PATHOLOGY/CYTO LOGY ORDERABLES Performing Organization Address City/State/[facility] Co de Phone Number [facility] [address] [phone] documented in this encounter Visit Diagnoses Diagnosis Generalized enlarged lymph nodes Enlargement of lymph nodes documented in this encounter Care Teams Director Medical Safety Relationship Specialty Start Date End Date Gia Clark PA-C [address] [place] [phone] PCP - General 05/24/22 documented as of this encounter
--- OUTSIDE RECORDS SUMMARY | 2024-11-07 17:27 | XMS_ITS | Clinical Summary ---
Author Organization [facility] Address [address] [place] [address] Phone Care Team Providers Care Supervisor Looping Name Role Phone Gia Clark Primary Care Provider [phone] Allergies No known active allergies Medications Medication Sig Dispensed Refills Start Date End Date Status amLODIPine (NORVASC) 10 MG tablet Take 10 mg by mouth 1 (one) time each day 12/21/2021 Active furosemide (LASIX) 40 MG tablet Take 40 mg by mouth 1 (one) time each day 12/21/2021 Active lisinopril (PRINIVIL) 20 MG tablet Take 20 mg by mouth 1 (one) time each day 12/21/2021 Active metoprolol succinate XL (TOPROL-XL) 100 MG 24 hr tablet Take 100 mg by mouth 1 (one) time each day 12/21/2021 Active HYDROcodone-acetamino phen (NORCO) 5-325 MG per tablet TAKE 1-2 TABLETS BY MOUTH EVERY 6 HOURS NEEDED FOR 05/11/2022 Active nicotine (NICODERM CQ) 21 MG/24HR UNWRAP AND APPLY 1 PATCH EVERY MORNING 05/12/2022 Active nicotine polacrilex (NICORETTE) 4 MG gum CHEW 1 PIECE BY MOUTH NEEDED FOR NICOTINE CRAVINGS 05/11/2022 Active sodium bicarbonate 650 MG tablet Take 2 tablets (1,300 mg total) by mouth 2 (two) times a day 60 tablet 4 06/04/2022 Active hydrALAZINE (APRESOLINE) 25 MG tablet Take 25 mg by mouth 2 (two) times a day as directed 07/01/2022 Active aspirin (ST SHER) 81 MG EC tablet Take 81 mg by mouth daily Active cholecalciferol (VITAMIN D-3) 125 MCG (5000 UT) capsule Take 1 capsule by mouth daily Active Active Problems Problem Noted Date Diagnosed Date Renal mass 02/14/2022 Hypertension 02/14/2022 Immunizations Name Administration Dates Next Due Sars-cov-2, Unspecified 07/26/2021,01/24/2021, Family History Medical History Relation Comments Leukemia Father Cancer Mother Relation Status Comments Father Mother Social History Tobacco Use Types Packs/Day Years Used Date Smoking Tobacco: Every Day Cigarettes 1 49 Smokeless Tobacco: Never Tobacco Cessation:Ready to Q uit: No; Counseling Given: Yes Alcohol Use Standard Drinks/Week Comments Never 0 (1 standard drink = 0.6 oz pur e alcohol) Sex and Gender Information Value Date Recorded Sex Assigned at Not on file Gender Identity Not on file Sexual Orientation Not on file Last Filed Vital Signs Vital Sign Reading Time Taken Comments Blood Pressure 136/78 08/02/2022 10:18 AM CDT Pulse - - Temperature 35.6 ??C (96.1 ??F) 08/02/2022 10:18 AM C DT Respiratory Rate 18 08/02/2022 10:18 AM CDT Oxygen Saturation - - Inhaled Oxygen Concentration - - Weight 88 kg (194 lb) 08/02/2022 10:18 AM CDT Height 182.9 cm (6') 08/02/2022 10:18 AM CDT Body Mass Index 26.31 08/02/2022 10:18 AM CDT Plan of Treatment Health Maintenance Due Date Last Done Comments Pneumococcal PPSV23 Highest Risk Adult (1 of 3 - PCV13) 1979 Influenza Vaccine (#1) 2024 08/10/2021, 2019 Care Teams Supervisor Looping Relationship Specialty Start Date End Date Gia Clark PA [address] [place] [phone] PCP - General 01/03/22
--- OUTSIDE RECORDS SUMMARY | 2024-11-07 17:27 | XMS_ITS | Referral Summary ---
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 ([facility]) 02/09/2024 End stage renal disease ([facility]) 09/02/2022 Overview (09/02/2022): Added automatically from request for surgery [id number] Hypertension 02/14/2022 Renal mass 02/14/2022 Immunizations Name Administration Dates Next Due Influenza, Quadrivalent, Spl it, Preservative Free, Intramuscular 08/10/2021,07/31/2020 Sars-CoV-2, Unspecified 07/26/2021,01/24/2021, Tdap 07/15/2022 Social History Tobacco Use Types Packs/Day Years [...] 06/05/2024 10:39 AM CDT Plan of Treatment Not on file Insurance [facility] Address: [id number] [place] [address] [facility] Care Teams Regional Sales Associate Relationship Specialty Start Date End Date Gia Clark PA [address] [place] [address] PCP - General Physician Social Service Liaison 09/15/22 Harry Loredo MD [address] [place] [address] Consulting Physician Cardiovascular Disease 03/18/24 Rachell Mcnulty MD [address] [place] [address] Referring Physician Nephrology 06/05/24 Beata Feldman, RN [address] [place] [address] [employer] 06/05/24
--- OUTSIDE RECORDS SUMMARY | 2024-11-07 17:27 | XMS_ITS | Referral Summary ---
Author Organization [facility] Address [address] [place] [address] Care Team Providers Care Checkman Name Role Phone Gia Clark PA-C Primary Care Provider Source Comments [facility],non-[facility] Affiliates and Associated Physician Practices is amultiple site organization consisting of ambulatory clinics and hospital sitesin [place], [place], [place] and [place]. This disclosure is being madepursuant to the Care Everywhere program and may not contain all information available regarding this patient. Last updated 18.[facility] [employer] Social History Tobacco Use Types Packs/Day Years Used Date Smoking Tobacco: Never Assessed Sex and Gender Information Value Date Recorded Sex Assigned at Not on file Gender Identity Not on file Sexual Orientation Not on file Plan of Treatment Not on file Care Teams Checkman Relationship Specialty Start Date End Date Gia Clark PA-C [address] [phone] PCP - General 05/24/22
--- OUTSIDE RECORDS SUMMARY | 2024-11-07 17:27 | XMS_ITS | Encounter Summary ---
Author Organization [facility] [employer] [facility] Address [address] [place] [address] Care Team Providers Care Paint Prep Technician Name Role Phone Unavailable Primary Care Provider Unavailabl e Encounter Details Date Type Department Care Team (Late st Contact Info) Description 06/02/2023 Telephone [facility] Oncology and Hematology - [place] [address] [facility] [address] [place] [address] Aydin Carrasco MD [address] [facility] [address] [place] [address] Social History Tobacco Use Types Packs/Day Years Used Date Smoking Tobacco: Every Day Cigarettes Smokeless Tobacco: Never Alcohol Use Standard Drinks/Week Comments Yes 7 (1 standard drink = 0.6 oz pur e alcohol) Sex and Gender Information Value Date Recorded Sex Assigned at Not on file Legal Sex Male 10:49 AM CDT Gender Identity Not on file Sexual Orientation Not on file documented as of this encounter Plan of Treatment Not on file documented as of this encounter Visit Diagnoses Not on filedocumented in this encounter
== END 2024-11-05 10:19 | disposition home or self-care (01) ==
PROVIDERS: PCP Physician Assistant; Visit Provider Internal Medicine Hematology & Oncology
DX: C64.1 Malignant neoplasm of right kidney, except renal pelvis (principal); R91.8 Other nonspecific abnormal finding of lung field; I71.43 Infrarenal abdominal aortic aneurysm, without rupture
CPT/HCPCS: 78815; A9552

== ENCOUNTER 2024-12-11 09:02 | Outpatient (CLI) | payer BC, SELFPAY ==
[2024-12-11 09:26] LABS: Basophils Absolute Auto 0.1 K/mm3 (0.0-0.1); Basophils Percent Auto 1.2 % (0.2-1.2); Eosinophils Absolute Auto 0.2 K/mm3 (0-0.3); Eosinophils Percent Auto 3.6 % (0-4.4); Hematocrit 27.9 % (42.0-52.0); Hemoglobin 8.9 g/dL (14.0-18.0); Immature Granulocyte Absolute 0.02 K/mm3 (0.00-0.031); Immature Granulocyte Percent A 0.3 % (0-0.5); Lymphocytes Absolute Auto 0.76 K/mm3 (0.9-3.2); Lymphocytes Percent Auto 12.6 % (18.3-44.2); Mean Corpuscular HGB Conc 31.9 g/dl (32-36); Mean Corpuscular Hemoglobin 33.2 pg (26-34); Mean Corpuscular Volume 104.1 fl (80-100); Mean Platelet Volume 8.3 fl (7.4-10.4); Monocytes Absolute Auto 0.6 K/mm3 (0.1-0.6); Monocytes Percent Auto 9.3 % (2.6-8.5); Neutrophils Absolute Auto 4.4 K/mm3 (1.3-6.7); Platelet Count Result 218 k/mm3 (150-375); Red Blood Count 2.68 M/mm3 (4.6-6.20); Red Cell Distribution Width 17.4 % (11.5-14.5); White Blood Count 6.1 K/mm3 (4.5-10.0)
--- OUTSIDE RECORDS SUMMARY | 2024-12-11 09:44 | XMS_ITS | Clinical Summary ---
Author Organization [facility] [employer] Address [address] [facility] [place] [address] Care Team Providers Care Regional Account Manager Name Role Phone Gia Clrak PA-C Primary Care Provider Source Comments [facility] [employer],non-owned Affiliates and Associated Physician Practices is amultiple site organization consisting of ambulatory clinics and hospital sitesin [place], [place], [place] and [place]. This disclosure is being madepursuant to the Care Everywhere program and may not contain all information available regarding this patient. Last updated 18.[facility] [employer] Social History Tobacco Use Types Packs/Day Years [...] Tdap) 1979 PNEUMOCOCCAL VACCINE 50+ (1 of 2 - PCV) 1979 HEPATITIS B VACCINE (1 of 3 - Risk Dialysis 4-dose series) 1980 ZOSTER VACCINE (1 of 2) 2010 COVID-19 VACCINE ( - 2023-2 5 season) 2024 INFLUENZA VACCINE (#1) 2024 DEPRESSION SCREENING 10/16/2024 Respiratory Syncytial Virus (RSV) Vaccine Pt: or over 60 yrs (1 - 1-dose 75+ series) 2035 HIB VACCINE Aged Out No longer eligi [...] age to complete this topic Care Teams Regional Account Manager Relationship Specialty Start Date End Date Gia Clark PA-C [address] [place] [address] PCP - General 05/24/22
--- OUTSIDE RECORDS SUMMARY | 2024-12-11 09:44 | XMS_ITS | Encounter Summary ---
Author Organization [facility] Address [address] [place] [address] Care Team Providers Care Creping Machine Operator Helper Name Role Phone Unavailable Primary Care Provider Unavailabl e Encounter Details Date Type Department Care Team (Late Contact Info) Description 06/02/2023 Telephone [facility] Oncology [facility] Hematology [facility] [address] [place] [address] Aydin Carrasco MD [address] [place] [address] Social History Tobacco Use Types [...] as of this encounter Plan of Treatment Upcoming Encounters Date Type Department Care Team (Late Contact Info) Description 12/16/2024 9:15 AM FOOD SAFETY COORDINATOR Office Visit [facility] Oncology [facility] [address] [place] [address] Aydin Carrasco MD [address] [place] [address] 12/18/2024 11:00 AM FOOD SAFETY COORDINATOR Hospital Encounter [facility] [address] [place] [phone] Jesus Luciano, DPM [address] [place], [place] [phone] 01/02/2025 2:15 PM CDT Appointment [facility] Heart and Vascular Testing [facility] [address] [facility] [address] [place] [address] Patricia Quezada, WILLIAM [address] [facility] [address] [place] [address] 01/02/2025 3:30 PM CDT Office Visit [facility] Heart and Vascular Surgery [address] [facility] [address] [facility] [address] [place] [address] Shanika Sebastian FNP [address] [facility] [address] [place] [address] documented as of this encounter Visit Diagnoses Not on filedocumented in this encounter
--- OUTSIDE RECORDS SUMMARY | 2024-12-11 09:44 | XMS_ITS | Clinical Summary ---
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 Home Care Services [address] [place] [id number] Sarah Gannon 11/26/[address] [facility] Home Care Services [address] [place] [id number] Unknown, Notinfile from Last 3 Months Immunizations Immunization Administration Dates Next Due Influenza, Quadrivalent, Spl [...] 60 05/08/2024 2:40 PM CDT Temperature 36.2 C (97.1 F) 04/22/2024 10:22 AM CDT Respiratory Rate 24 04/22/2024 12:02 PM CDT [...] C Screening 1960 Prostate Cancer Screening-PSA 1960 Hepatitis B Screening 1978 Regular Well Visit/Exam 18-64 1978 Pneumococcal vaccine <65 (1 of 2 - PCV) 1979 Zoster Vaccine (1 of 2) 2010 Covid-19 Vaccine (2023-2 5 season) 2024 04/01/2022, 08/26/2021, 07/26/2021, Additional history exists Influenza Vaccine (#1) 2024 08/10/2021, 2019 DTaP/Tdap/Td Vaccine (2 - Td or Tdap) 07/15/2032 07/15/2022 Insurance [facility] P[facility] Address: [facility] [id number] [place] [address] [employer] [address] Care Teams Senior Training And Development Rep Relationship Specialty Start Date End Date Gia Clark PA [address] [place] [address] PCP - General Physician Banquet Pilot 09/15/22 Harry Loredo MD [address] [facility] [place] [address] Consulting Physician Cardiovascular Disease 03/18/24 Rachell Mcnulty MD [address] [facility] [place] [address] Referring Physician Nephrology 06/05/24 Beata Feldman, RN [address] [place] [address] Program Eligibility Specialist 06/05/24
--- OUTSIDE RECORDS SUMMARY | 2024-12-11 09:44 | XMS_ITS | Clinical Summary ---
Author Organization [facility] Address [facility] [place] [address] Care Team Providers Care School Crossing Guard Supervisor Name Role Phone Gia Clark PA-C Primary Care Provider [phone] Allergies No known active allergies Medications sodium [...] 55 06/13/2022 8:54 AM CDT Temperature 36.6 C (97.9 F) 06/13/2022 8:54 AM CDT Respiratory Rate - - Oxygen Saturation 100% [...] (1 - 1-dose 75+ series) 2035 Meningococcal B Vaccine Aged Out No l onger eligible based on patient's age to complete this topic Meningococcal Vaccine Aged Out No pia angelita [...] this topic Medical Devices Implanted Type Area Certified Flex Endoscope Reprocessor Device Identifier Shelf Expiration Date Model / Serial / Lot Dirk Clareon Iol Implanted:Qty: 1 on 06/13/2022 by Jung Rosales MD at [facility] Left: Eye [employer]IR[employer] - SURGICAL DIV 02/27/2025 [id number] / [id number] / [place] [address] [facility] Care Teams School Crossing Guard Supervisor Relationship Specialty Start Date End Date Gia Clark PA-C PCP - General PHYSICIAN SHOT HOLE DRILLER 06/13/22
--- OUTSIDE RECORDS SUMMARY | 2024-12-11 09:44 | XMS_ITS | Encounter Summary ---
Author Organization [facility] Address [address] [place] [address] Phone Care Team Providers Care Jockey'S Agent Name Role Phone Unavailable Primary Care Provider Unavailabl e Reason for Visit * Auth/Cert (Routine) Specialty Diagnoses / Procedures Referred By Contac t Referred To Contact Referral ID Status Reason Start Date Expiration Date Visits Re quested Visits Authorized [id number] 1 1 Encounter Details Date Type Department Care Team ([facility] Contact Info) Description 12/10/2024 10:00 AM [facility] [address] [place] [address] Loreto Green PTA PT - HOME VISIT Social History Tobacco Use Types Packs/Day Years Used Date Smoking Tobacco: Never Assessed Sex and Gender Information Value Date Recorded Sex Assigned at Not on file Legal Sex Male 12:25 AM CDT Gender Identity Not on file Sexual Orientation Not on file documented as of this encounter Last Filed Vital Signs Vital Sign Reading Time Taken Comments Blood Pressure 112/68 12/10/2024 10:21 AM SCALDER Pulse 104 12/10/2024 10:21 AM SCALDER Temperature 36.1 C (97 F) 12/10/2024 10:21 AM SCALDER Respiratory Rate 18 12/10/2024 10:21 AM SCALDER Oxygen Saturation 98% 12/10/2024 10:21 AM SCALDER Inhaled Oxygen Concentration - - Weight 91.6 kg (202 lb) 12/10/2024 10:21 AM SCALDER Height - - Body Mass Index 27.4 11/29/2024 9:36 AM SCALDER documented in this encounter Plan of Treatment Upcoming Encounters Date Type Department Care Team ([facility] Contact Info) Description 12/12/2024 1:00 AM [facility] [address] [place] [address] Loreto Green, INSURANCE LOSS CONTROL SURVEYOR 12/13/2024 1:00 AM SCALDER Home Care Visit [address] [address] Leela Rao, [place] 12/16/2024 1:00 AM SCALDER Home Care Visit [address] [address] Leela Rao, [place] 12/16/2024 2:00 PM SCALDER Home Care Visit [address] [address] Loreto Green, INSURANCE LOSS CONTROL SURVEYOR 12/18/2024 2:00 AM SCALDER Home Care Visit [address] [address] Cintia Chen PT MD 12/20/2024 1:00 AM SCALDER Home Care Visit [address] [address] Leela Rao, RN [place] 12/23/2024 1:00 AM CDT Home Care Visit [address] [address] Leela Rao, RN [place] 12/27/2024 1:00 AM CDT Home Care Visit [address] [address] Leela Rao, RN [place] 12/30/2024 1:00 AM CDT Home Care Visit [address] [address] Leela Rao, [place] 01/03/2025 1:00 AM CDT Home Care Visit [address] [address] Leela Rao, [place] 01/06/2025 1:00 AM CDT Home Care Visit [address] [address] Leela Rao, [place] 01/13/2025 1:00 AM CDT [facility] [address] [place] [address] Leela Rao RN [place] 01/20/2025 1:00 AM CDT [facility] [address] [place] [address] Leela Rao RN MD documented as of this encounter Visit Diagnoses Not on filedocumented in this encounter Home Health Visit - Care Plan Visit Details Visit Type -PT - HOME VISIT Discipline -Physical Therapy Problems Problem Description Start Date Status Goals Interve ntions PT COMPREHENSIVE Disciplines: Physical Therapy 11/28/2024 Active 4 goals linked to scheduled/documente d interventions 4 goal interventions scheduled/documente d in this visit Goals Goal Associated Problem Outcome Goal Met? Visit Notes PT Balance Description: Short Term Goal: Patient will show improved dynamic standing balance as demonstrated by improved Tinetti score from 16/28 to 21/28 in order to lower risk for falls. To be met by 12/21/24. PT COMPREHENSIVE No PT Stairs and Home Exit Description: Short Term Goal: Patient will be independent on entry steps with use of cane or no device while maintaining ordered precautions to allow for ability to enter/exit home safely . To be met by 12/21/24. PT COMPREHENSIVE No PT Gait Description: Short Term Goal: Patient will ambulate independently 150 feet with use of no device or cane, over even surfaces and uneven surfaces with the following improved gait characteristics no loss of balance in order to safely leave home for appointments. To be met by 12/21/24. PT COMPREHENSIVE No PT HEP Description: Short Term Goal: Patient and/or caregiver will independently with initial HEP of strengthening in order to progress strength and functional mobility. To be met by 12/21/24. PT COMPREHENSIVE No Interventions Intervention Associated Problem/Goal Status Variance Visit Notes PT Balance Description: Provide balance training for safety and reduced fall risk. Problem:PT COMPREHENSIVE Goal:PT Balance Completed Instructed Patient on skilled balance training: static standing x 10 min with use of balance pad. Static stance with feet neutral stance and FT with EO, head turns, EC, UE lifts and pertubations challenges given. Pt then standing toe taps onto pad x 20 reps each with no UE support; then one foot on pad other on floor for 30 sec ea wiht EO and EC. Pt having increase in LOB with EC challenges. Skilled instruction consisting of: verbal cues keep head up, draw in core musculature. Tolerance to activity: decreased assistance required PT Stairs and Home Exit Description: Instruct in proper safety and technique for stair training or home exit as directed in the goal. Problem:PT COMPREHENSIVE Goal:PT Stairs and Home Exit Completed Patient negotiated 2 steps with use of 2 w/ walker with no assistance. Skilled instruction consisting of safety instructions recommned grab bar at back entry provided to Patient. Tolerance to activity: decreased assistance required PT Gait Description: Provide gait training for increased safety and efficiency. Progress per patient tolerance and safety. Problem:PT COMPREHENSIVE Goal:PT Gait Completed Patient ambulated with supervision/indep on gravel driveway off of bus 50 feet, then gait indoors no AD 150 feet with use of over even surfaces and uneven surfaces with the following gait characteristics pt tends to fern picker walker on gravel driveway and instructed pt to just pick it up and set back down when taking his walking steps. Pt had no LOB with gait in home using no AD. Pt continues to use walker 50% of the time indoors.. Skilled instruction consisting of keep head up, safer walker placement on gravel and increase B step height provided to Patient. Tolerance to activity verbal cues required 25 % of activity. PT HEP Progression Description: Instruct on home exercise program. Progress as tolerated. Problem:PT COMPREHENSIVE Goal:PT HEP Completed Home Exercise Program issued to Patient continue LE HEP in standing/supine reps as tolerated and daily walking in home with and without w/walker. Pt pedaled restorater bike x 3 min to LE's before needing to stop due to c/o fatigue. Pt rested then performed sit/stands x 8 reps with UE push off for leg strengthening. Pt needing to stop due to fatigue. . Response verbalize understanding, additional education required and ongoing. documented in this encounter
--- OUTSIDE RECORDS SUMMARY | 2024-12-11 09:44 | XMS_ITS | Clinical Summary ---
Author Organization [facility] Rasheed Rivas Address [address] [place] [address] Care Team Providers Care Flour Blender Name Role Phone Unavailable Primary Care Provider Unavailabl e Allergies No known active allergies Medications cholecalciferol , Vitamin D3, 125 mcg (5,000 unit) Capsule Take 1 Capsule by mouth daily. Active furosemide (LASIX) 40 mg tablet Take 40 mg by mouth daily. 12/22/19 22 Active metoprolol succinate (TOPROL XL) 50 mg Extended Release 24 hour tablet Take 100 mg by mouth daily. Active sodium bicarbonate 650 mg tablet Take 650 mg by mouth 2 times daily. 06/04/20 22 Active sevelamer HCL (RENAGEL) 800 mg tablet Take 800 mg by mouth. 02/08/20 24 Active apixaban (ELIQUIS) 5 mg tablet Take 5 mg by mouth 2 times daily. 03/19/20 24 025 Active amLODIPine (NORVASC) 10 mg tablet Take 1 Tablet (10 mg) by mouth daily. 1 Tablet 11/26/19 25 Active aspirin (ANGELICA CHEWABLE) 81 mg Tablet, Chewable Take 1 Tablet (81 mg) by mouth daily with breakfast. 11/26/19 25 Active acetaminophen (TYLENOL) 325 mg tablet Take 2 Tablets (650 mg) by mouth every 6 hours. 11/25/19 25 Active hydrALAZINE (APRESOLINE) 50 mg tablet Take 1 Tablet (50 mg) by mouth 2 times daily. 60 Tablet 1 5 5:26 PM GRANTS SPECIALIST 11/25/19 25 Active atorvastatin (LIPITOR) 40 mg tablet Take 1 Tablet (40 mg) by mouth daily at bedtime. 30 Tablet 2 5 5:26 PM GRANTS SPECIALIST 11/25/19 25 Active sennosides-docu sate sodium (SENNA-S) 8.6-50 mg tablet Take 1 Tablet by mouth 2 times daily. 11/25/19 25 Active fluticasone furoate-vilante roL (BREO ELLIPTA) 200-25 mcg/dose Disk with Device Starting 11/26/24, Take 1 Puff by inhalation daily. 60 Each 2 5 5:26 PM GRANTS SPECIALIST 11/26/19 25 Active amLODIPine (NORVASC) 10 mg tablet Take 10 mg by mouth. 12/22/19 22 025 Discontinued hydrALAZINE (APRESOLINE) 25 mg tablet Take 25 mg by mouth 2 times daily. 025 Discontinued Active Problems Problem Noted Date Diagnosed Date Preoperative cardiovascular examination 11/17/19 25 PAF (paroxysmal atrial fibrillation) 11/17/2024 Essential hypertension 11/17/2024 Suspected chronic obstructiv e pulmonary disease based on initial evaluation 11/16/2024 Chronic respiratory insufficiency 11/16/2024 PVD (peripheral vascular disease) 11/15/2024 Nicotine dependence 11/15/2024 History of kidney cancer 11/15/2024 Malignant neoplasm metastatic to both lungs 10/18 Anemia, chronic disease 11/15/2024 Gangrene of both feet 11/14/2024 Benign hypertension with ESRD (end-stage renal d isease) 11/13/2024 Dependence on renal dialysis 11/13/2024 Necrotic toes 11/13/2024 Longstanding persistent atrial fibrillation 10/17 Adrenal mass 11/13/2024 AAA (abdominal aortic aneurysm) 11/13/2024 Resolved Problems Problem Noted Date Diagnosed Date Resolved Date Acute lower limb ischemia 11/14/2024 Acute deep vein thrombosis ( DVT) of proximal vein of both lower extremities 11/13/2024 Stage 5 chronic kidney disea se on chronic dialysis 11/13/2024 11/13/2024 Encounters Date Type Department Care Team Description 12/06/2024 Telephone [facility] [address] [facility] [place] [address] [address] [facility] [address] [place] [address] Franca Dykes MD Question 12/03/2024 External Device Data STL ABSTRACTION Provider, Abstract 11/28/2024 Abstract [facility] [address] [facility] [address] [address] [address] [facility] [address] [place] [address] Franca Dykes MD 11/28/2024 Telephone [facility] [address] [facility] 101 [address] [facility] [address] [place] [address] Franca Dykes MD short term disability forms 11/27/2024 Telephone [facility] [address] [facility] 101 [address] [facility] [address] [place] [address] Patricia Quezada, DENTAL CHAIR ASSEMBLER Needs Appointment 11/27/2024 Abstract [facility] [address] [facility] 101 [address] [facility] [address] [place] [address] Franca Dykes MD 11/23/2024 11:37 AM GRANTS SPECIALIST Anesthesia Event [facility] Operating Room [address] [place] [address] Reinier Dale MD Tao, Yongping, MD 11/23/2024 8:42 AM GRANTS SPECIALIST - 11/23/2024 9:54 AM GRANTS SPECIALIST Surgery [facility] Operating Room [address] [place] [address] Jesus Luciano DPM RIGHT GREAT TOE AMPUTATION 11/23/2024 Travel 11/20/2024 7:30 AM GRANTS SPECIALIST - 11/20/2024 5:21 PM GRANTS SPECIALIST Surgery [facility] Operating Room [address] [place] [address] Franca Dykes MD COMMON, SUPERFICIAL, AND PROFUNDA RIGHT FEMORAL ENDARTERECTOMY, RIGHT LOWER EXTREMITY ANGIOGRAM, IVUS AND SHOCKWAVE TO RIGHT SFA AND POPLITEAL, AND DRUG COATED BALLOON ANGIOPLASTY TO RIGHT SFA AND POPLITEAL 11/20/2024 7:30 AM GRANTS SPECIALIST Anesthesia Event [facility] Operating Room [address] [place] [address] Kianna Lu MD Grahek-Lindsey, Lisa M, PA-C 11/19/2024 External Device Data STL ABSTRACTION Provider, Abstract 11/19/2024 External Device Data STL ABSTRACTION Provider, Abstract 11/19/2024 External Device Data STL ABSTRACTION Provider, Abstract 11/13/2024 6:57 PM GRANTS SPECIALIST - 11/26/2024 6:16 PM GRANTS SPECIALIST Hospital Encounter [facility] Surgery [address] [place] [address] Chong Garcia MD Idemudia, Osarenren, MD Bagam, Vaghdevi, MD Miller, Brian P, MD Suarez Solar, Pedro, MD Necrotic toes ([facility]) Discharge Disposition: Home or Self Care 11/13/2024 Travel 11/07/2024 External Device Data STL ABSTRACTION Provider, Abstract 11/05/2024 Orders Only [facility] [address] [place] [address] Aydin Carrasco MD 10/25/2024 Telephone [facility] [address] [place] [address] Aydin Carrasco MD PET SCAN SCHEDULED 10/22/2024 External Device Data STL ABSTRACTION Provider, Abstract from Last 3 Months Family History Medical History Relation Name Comments Diabetes Brother 1 Diabetes Brother 2 Prostate Cancer Father Lung Cancer Mother No Known Problems Sister 1 No Known Problems Sister 2 No Known Problems Sister 3 Relation Name Status Comments Brother 1 Alive Brother 2 Alive Father Mother Sister 1 Alive Sister 2 Alive Sister 3 Alive Social History Tobacco Use Types Packs/Day Years Used Date Smoking Tobacco: Every Day Cigarettes Smokeless Tobacco: Never Tobacco Cessation:Ready to Q uit: Not Asked; Counseling Given: Not Answered Alcohol Use Standard Drinks/Week Comments Yes 7 (1 standard drink = 0.6 oz pur e alcohol) Feeling Safe Answer Date Recorded Are you in a relationship wi th someone who hurts you emotionally and/or physically? No 11/23/2024 Food Insecurity Answer Date Recorded Social/Environmental Concerns No concerns Transportation Needs Answer Date Record ed Social/Environmental Concerns No concerns Housing Stability Answer Date Recorded Social/Environmental Concerns No concerns Utility Needs Answer Date Recorded Social/Environmental Concerns No concerns Sex and Gender Information Value Date Recorded Sex Assigned at Not on file Legal Sex Male 10:49 AM CDT Gender Identity Not on file Sexual Orientation Not on file Last Filed Vital Signs Vital Sign Reading Time Taken Comments Blood Pressure 148/75 11/26/2024 3:30 PM [facility]S SPECIALIST Pulse 78 11/26/2024 3:30 PM GRANTS SPECIALIST Temperature 36.4 C (97.6 F) 11/26/2024 12:30 PM GRANTS SPECIALIST Respiratory Rate 15 11/26/2024 3:30 PM GRANTS SPECIALIST Oxygen Saturation 98% 11/26/2024 3:30 PM GRANTS SPECIALIST Inhaled Oxygen Concentration - - Weight 90.8 kg (200 lb 1.6 oz) 11/26/2024 5:54 A M GRANTS SPECIALIST Height 182.9 cm (6') 11/13/2024 11:43 PM GRANTS SPECIALIST Body Mass Index 27.14 11/13/2024 11:43 PM GRANTS SPECIALIST Plan of Treatment Upcoming Encounters Date Type Department Care Team (Late st Contact Info) Description 12/16/2024 9:15 AM GRANTS SPECIALIST Office Visit [facility] [place] [facility] [address] [place] [address] Aydin Carrasco MD [address] [facility] [address] [place] [address] 12/18/2024 11:00 AM GRANTS SPECIALIST Hospital Encounter [facility] [address] [place] [address] Jesus Luciano, ERNESTO [address] [place], [place] [id number] 01/02/2025 2:15 PM CDT Appointment [facility] Heart and Vascular Testing [address] [place] [address] Patricia Quezada, DENTAL CHAIR ASSEMBLER [address] [place] [address] 01/02/2025 3:30 PM CDT Office Visit [facility] [address] [facility] [place] [address] [address] [facility] [address] [place] [address] Shanika Sebastian, JOHN [address] [facility] [address] [place] [address] Health Maintenance Due Date Last Done Comments ZOSTER VACCINE (1 of 2) 1979 COLORECTAL SCREENING 2005 Colorectal Cancer Screening 2005 FIT-DNA Q 3 years 2005 FIT/FOBT Q 1 year 2005 Flex Sig/CT Colonography Q 5 years 2005 RSV VACCINE (60+ or ) (1 - Risk 60-74 years 1-dose series) 2020 INFLUENZA VACCINE (#1) 2024 08/10/2021, 2019 Pre-Diabetes and Diabetes Screening 11/14/202711/14 DTAP/TDAP/TD VACCINES (2 - Td or Tdap) 07/15/2032 Medical Devices Implanted Type Area Tag Writer Device Identifier Shelf Expiration Date Model / Serial / Lot Patch Vascu-Guard 1.0x10cm [id number] - [id number] Implanted:Qty: 1 on 11/20/2024 by Franca Dykes MD at [facility] Right: Groin [employer] 09/03/2025 [id number] / / [id number] Patch Vascu-Guard 0.8x8cm Cardio Vg-0108 - [id number] Implanted:Qty: 1 on 11/20/2024 by Franca Dykes MD at [facility] Collagen Right: Groin [employer] 05/20/2026 [id number] / / [id number] Hemostatic Surgifoam Sz12-7 1971 - [id number] Implanted:Qty: 1 on 11/20/2024 by Franca Dykes MD at [facility] Hemostatic Right: Groin [employer] 03/11/20281971 / / [id number] Hemostatic Surgiflo 8ml W/ Thrombin 299 - [id number] Implanted:Qty: 1 on 11/20/2024 by Franca Dykes MD at [facility] Hemostatic [employer] 10/15/2025 299 / / [id number] Procedures Procedure Name Priority Date/Time Associated Diagnosis Comments VANCOMYCIN LEVEL RANDOM Routine 11/26/19 4:39 AM GRANTS SPECIALIST RENAL FUNCTION PANEL Routine 11/26/2024 4:39 AM GRANTS SPECIALIST PTT Timed Study 11/25/2024 7:42 PM GRANTS SPECIALIST TELEMETRY REPORT 11/25/2024 3:26 PM GRANTS SPECIALIST TELEMETRY REPORT 11/25/2024 3:06 PM GRANTS SPECIALIST TELEMETRY REPORT 11/25/2024 2:57 PM GRANTS SPECIALIST TELEMETRY REPORT 11/25/2024 2:45 PM GRANTS SPECIALIST PTT Routine 11/25/2024 12:14 PM GRANTS SPECIALIST TELEMETRY REPORT 11/25/2024 10:16 AM GRANTS SPECIALIST TELEMETRY REPORT 11/25/2024 9:59 AM GRANTS SPECIALIST TELEMETRY REPORT 11/25/2024 8:03 AM GRANTS SPECIALIST PTT Routine 11/25/2024 3:11 AM GRANTS SPECIALIST RENAL FUNCTION PANEL Routine 11/25/2024 3:11 AM GRANTS SPECIALIST PTT Timed Study 11/24/2024 11:08 PM GRANTS SPECIALIST PTT Timed Study 11/24/2024 3:52 PM GRANTS SPECIALIST PTT Routine 11/24/2024 7:29 AM GRANTS SPECIALIST CBC WITHOUT DIFFERENTIAL Routine 11/24/2024 2:56 AM GRANTS SPECIALIST RENAL FUNCTION PANEL Routine 11/24/2024 2:56 AM GRANTS SPECIALIST PTT Routine 11/23/2024 7:41 PM GRANTS SPECIALIST VANCOMYCIN LEVEL RANDOM Timed Study 11/23/19 2:30 PM GRANTS SPECIALIST PT EVAL AND TREAT Routine 11/23/2024 1:3 0 PM GRANTS SPECIALIST XR FOOT 3+ VW RIGHT Routine 11/23/2024 1 :04 PM GRANTS SPECIALIST PATHOLOGY Pathology 11/23/2024 11:55 AM GRANTS SPECIALIST ANAEROBIC/AEROBIC CULTURE W GRAM STAIN Routine 11/23/2024 11:55 AM GRANTS SPECIALIST TOE(S) AMPUTATION 11/23/2024 8:4 2 AM GRANTS SPECIALIST UNKNOWN Special Needs SAW. DR ADAN T/F HIS OTHER CASE. TRANSFUSE PACKED RED BLOOD CELLS Routine 11/23/2024 8:36 AM GRANTS SPECIALIST PREPARE RED BLOOD CELLS Routine 11/23/19 6:58 AM GRANTS SPECIALIST TYPE AND SCREEN Routine 11/23/2024 3:44 AM GRANTS SPECIALIST CBC WITH DIFFERENTIAL Routine 11/23/2024 3:44 AM GRANTS SPECIALIST PTT Routine 11/23/2024 3:44 AM GRANTS SPECIALIST RENAL FUNCTION PANEL Routine 11/23/2024 3:44 AM GRANTS SPECIALIST PTT Timed Study 11/22/2024 10:33 PM GRANTS SPECIALIST POTASSIUM LEVEL Stat 11/22/2024 4:05 PM GRANTS SPECIALIST PTT Timed Study 11/22/2024 4:05 PM GRANTS SPECIALIST HEMODIALYSIS Routine 11/22/2024 12:01 PM GRANTS SPECIALIST VANCOMYCIN LEVEL RANDOM Stat 11/22/19 6:10 AM GRANTS SPECIALIST CBC WITH DIFFERENTIAL Routine 11/22/2024 6:10 AM GRANTS SPECIALIST RENAL FUNCTION PANEL Routine 11/22/2024 6:10 AM GRANTS SPECIALIST PTT Timed Study 11/22/2024 6:10 AM GRANTS SPECIALIST PTT Timed Study 11/21/2024 8:09 PM GRANTS SPECIALIST PTT Timed Study 11/21/2024 9:31 AM GRANTS SPECIALIST BASIC METABOLIC PANEL Stat 11/21/2024 6:01 AM GRANTS SPECIALIST MAGNESIUM LEVEL Stat 11/21/2024 6:01 AM GRANTS SPECIALIST POC GLUCOSE Routine 11/21/2024 5:39 AM GRANTS SPECIALIST EKG 12-LEAD Stat 11/21/2024 5:29 AM GRANTS SPECIALIST CBC WITH DIFFERENTIAL Routine 11/21/2024 2:25 AM GRANTS SPECIALIST PTT Timed Study 11/21/2024 2:24 AM GRANTS SPECIALIST VANCOMYCIN LEVEL RANDOM Timed Study 11/21/19 2:24 AM GRANTS SPECIALIST RENAL FUNCTION PANEL Routine 11/21/2024 2:24 AM GRANTS SPECIALIST VERIFICATION BLOOD GROUP Stat 11/20/2024 8:52 PM GRANTS SPECIALIST HEMOGLOBIN AND HEMATOCRIT Stat 11/20/2024 3:13 PM GRANTS SPECIALIST POC ACTIVATED CLOTTING TIME Routine 11/20/2024 1:23 PM GRANTS SPECIALIST XR OR Routine 11/20/2024 1:12 PM GRANTS SPECIALIST TRANSFUSE PACKED RED BLOOD CELLS Stat 11/20/2024 12:57 PM GRANTS SPECIALIST POC ACTIVATED CLOTTING TIME Routine 11/20/2024 12:52 PM GRANTS SPECIALIST PREPARE RED BLOOD CELLS Stat 11/20/19 25 12:18 PM GRANTS SPECIALIST PREPARE RED BLOOD CELLS Routine 11/20/19 25 12:18 PM GRANTS SPECIALIST POC ACTIVATED CLOTTING TIME Routine 11/20/2024 12:18 PM GRANTS SPECIALIST POC LACTIC ACID Routine 11/20/2024 12:10 PM GRANTS SPECIALIST OXIMETRY Routine 11/20/2024 12:10 PM GRANTS SPECIALIST METHEMOGLOBIN QUANTITATIVE Routine 11/20/2024 12:10 PM GRANTS SPECIALIST CARBOXYHEMOGLOBIN Routine 11/20/2024 12:10 PM GRANTS SPECIALIST BLOOD GAS,(INCL. H+H, LYTES, GLUC) Routine 11/20/2024 12:10 PM GRANTS SPECIALIST POC ACTIVATED CLOTTING TIME Routine 11/20/2024 11:40 AM GRANTS SPECIALIST POC ACTIVATED CLOTTING TIME Routine 11/20/2024 11:33 AM GRANTS SPECIALIST POC ACTIVATED CLOTTING TIME Routine 11/20/2024 10:57 AM GRANTS SPECIALIST POC ACTIVATED CLOTTING TIME Routine 11/20/2024 10:53 AM GRANTS SPECIALIST POC ACTIVATED CLOTTING TIME Routine 11/20/2024 10:42 AM GRANTS SPECIALIST POC ACTIVATED CLOTTING TIME Routine 11/20/2024 10:10 AM GRANTS SPECIALIST POC ACTIVATED CLOTTING TIME Routine 11/20/2024 9:56 AM GRANTS SPECIALIST POC ACTIVATED CLOTTING TIME Routine 11/20/2024 9:25 AM GRANTS SPECIALIST POC LACTIC ACID Routine 11/20/2024 8:50 AM GRANTS SPECIALIST OXIMETRY Routine 11/20/2024 8:50 AM GRANTS SPECIALIST METHEMOGLOBIN QUANTITATIVE Routine 11/20/2024 8:50 AM GRANTS SPECIALIST CARBOXYHEMOGLOBIN Routine 11/20/2024 8:5 0 AM GRANTS SPECIALIST BLOOD GAS,(INCL. H+H, LYTES, GLUC) Routine 11/20/2024 8:50 AM GRANTS SPECIALIST WA ANES INSERT CATH, ART, PERCUT, SHORTTERM Routine 11/20/2024 8:36 AM GRANTS SPECIALIST PERIPHERAL IV ADULT Routine 11/20/2024 8 :15 AM GRANTS SPECIALIST WA ANES VNPNXR 3 YEARS/> PHYS/QHP SKILL Routine 11/20/2024 8:15 AM GRANTS SPECIALIST WA ANES INSERT ENDOTRACHEAL AIRWAY Routine 11/20/2024 7:36 AM GRANTS SPECIALIST FEMORAL ENDARTERECTOMY 7:26 AM GRANTS SPECIALIST PVD Special Needs DR ADAN EV1 RM DR ADAN 7:30 START. TIME OK PER VICTOR HUGO/ CHARGE NURSE. TYPE AND SCREEN Stat 11/20/2024 3:53 AM GRANTS SPECIALIST CBC WITH DIFFERENTIAL Stat 11/20/2024 3:52 AM GRANTS SPECIALIST RENAL FUNCTION PANEL Stat 11/20/2024 3:52 AM GRANTS SPECIALIST PTT Timed Study 11/20/2024 3:52 AM GRANTS SPECIALIST TELEMETRY REPORT 11/19/2024 2:46 PM GRANTS SPECIALIST TELEMETRY REPORT 11/19/2024 2:30 PM GRANTS SPECIALIST CBC WITH DIFFERENTIAL Stat 11/19/2024 2:27 PM GRANTS SPECIALIST BASIC METABOLIC PANEL Stat 11/19/2024 2:27 PM GRANTS SPECIALIST PTT Stat 11/19/2024 2:27 PM GRANTS SPECIALIST TELEMETRY REPORT 11/19/2024 2:01 PM GRANTS SPECIALIST TELEMETRY REPORT 11/19/2024 1:33 PM GRANTS SPECIALIST TELEMETRY REPORT 11/19/2024 11:40 AM GRANTS SPECIALIST TELEMETRY REPORT 11/19/2024 11:31 AM GRANTS SPECIALIST TELEMETRY REPORT 11/19/2024 10:22 AM GRANTS SPECIALIST TELEMETRY REPORT 11/19/2024 9:57 AM GRANTS SPECIALIST TELEMETRY REPORT 11/19/2024 9:20 AM GRANTS SPECIALIST PTT Routine 11/19/2024 3:06 AM GRANTS SPECIALIST CBC WITH DIFFERENTIAL Routine 11/19/2024 3:06 AM GRANTS SPECIALIST RENAL FUNCTION PANEL Routine 11/19/2024 3:06 AM GRANTS SPECIALIST PTT Stat 11/18/2024 7:43 PM GRANTS SPECIALIST VANCOMYCIN LEVEL RANDOM Timed Study 11/18/19 12:03 PM GRANTS SPECIALIST RENAL FUNCTION PANEL Routine 11/18/2024 12:03 PM GRANTS SPECIALIST PTT Timed Study 11/18/2024 7:48 AM GRANTS SPECIALIST EXTRA TUBE (BLUE) Routine 11/18/2024 12:41 AM GRANTS SPECIALIST EXTRA TUBE Routine 11/18/2024 12:41 AM GRANTS SPECIALIST PTT Timed Study 11/18/2024 12:40 AM GRANTS SPECIALIST UNFRACTIONATED HEPARIN ACTIVITY Routine 11/17/2024 5:21 PM GRANTS SPECIALIST PTT Routine 11/17/2024 5:21 PM GRANTS SPECIALIST EKG 12-LEAD Routine 11/17/2024 12:43 PM GRANTS SPECIALIST CBC WITH DIFFERENTIAL Routine 11/17/2024 10:09 AM GRANTS SPECIALIST RENAL FUNCTION PANEL Routine 11/17/2024 10:09 AM GRANTS SPECIALIST NM MYOCARD PERF IMAG SPECT MULT Routine 11/17/2024 9:21 AM GRANTS SPECIALIST NM PHARMACOLOGICAL STRESS TEST Routine 11/17/2024 8:23 AM GRANTS SPECIALIST ECHOCARDIOGRAM W/ CONTRAST AGENT Routine 11/16/2024 4:48 PM GRANTS SPECIALIST LIPID PANEL Routine 11/16/2024 5:09 AM GRANTS SPECIALIST UNFRACTIONATED HEPARIN ACTIVITY Timed Study 11/16/2024 5:09 AM GRANTS SPECIALIST VANCOMYCIN LEVEL RANDOM Timed Study 11/16/19 5:09 AM GRANTS SPECIALIST RENAL FUNCTION PANEL Routine 11/16/2024 5:09 AM GRANTS SPECIALIST CTA ABD AORTA BI ILIOFEM W AND/OR WO Routine 11/15/2024 6:53 PM GRANTS SPECIALIST CTA CHEST W AND/OR WO CONTRAST Routine 11/15/2024 6:51 PM GRANTS SPECIALIST BLOOD CULTURE Routine 11/15/2024 3:23 PM GRANTS SPECIALIST BLOOD CULTURE Routine 11/15/2024 3:23 PM GRANTS SPECIALIST BLOOD CULTURE Routine 11/15/2024 3:17 PM GRANTS SPECIALIST BLOOD CULTURE Routine 11/15/2024 3:17 PM GRANTS SPECIALIST UNFRACTIONATED HEPARIN ACTIVITY Stat 11/15/2024 8:48 AM GRANTS SPECIALIST HEPATITIS B SURFACE ANTIGEN Routine 11/15/2024 1:48 AM GRANTS SPECIALIST UNFRACTIONATED HEPARIN ACTIVITY Stat 11/15/2024 1:48 AM GRANTS SPECIALIST VANCOMYCIN LEVEL RANDOM Timed Study 11/15/19 1:48 AM GRANTS SPECIALIST RENAL FUNCTION PANEL Routine 11/15/2024 1:48 AM GRANTS SPECIALIST CBC WITH DIFFERENTIAL Routine 11/15/2024 1:48 AM GRANTS SPECIALIST MAGNESIUM LEVEL Routine 11/15/2024 1:48 AM GRANTS SPECIALIST UNFRACTIONATED HEPARIN ACTIVITY Timed Study 11/14/2024 5:09 PM GRANTS SPECIALIST US ANKLE PRESSURE INDEX Routine 11/14/19 4:50 PM GRANTS SPECIALIST US VENOUS DOPPLER LEG BILATERAL Routine 11/14/2024 4:48 PM GRANTS SPECIALIST MRI FOOT WO CONTRAST LEFT Routine 11/14/2024 3:11 PM GRANTS SPECIALIST MRI FOOT WO CONTRAST RIGHT Routine 11/14/2024 2:47 PM GRANTS SPECIALIST UNFRACTIONATED HEPARIN ACTIVITY Timed Study 11/14/2024 8:52 AM GRANTS SPECIALIST MAGNESIUM LEVEL Routine 11/14/2024 12:58 AM GRANTS SPECIALIST COMPREHENSIVE METABOLIC PANEL Routine 11/14/2024 12:58 AM GRANTS SPECIALIST CBC WITH DIFFERENTIAL Routine 11/14/2024 12:58 AM GRANTS SPECIALIST HEMOGLOBIN A1C Routine 11/14/2024 12:58 AM GRANTS SPECIALIST UNFRACTIONATED HEPARIN ACTIVITY Stat 11/14/2024 12:46 AM GRANTS SPECIALIST PTT Stat 11/14/2024 12:46 AM GRANTS SPECIALIST UNFRACTIONATED HEPARIN ACTIVITY Routine 11/14/2024 12:46 AM GRANTS SPECIALIST US DOPPLER VENOUS ARM BILATERAL Routine 11/14/2024 12:20 AM GRANTS SPECIALIST PT EVAL AND TREAT Routine 11/13/2024 9:5 0 PM GRANTS SPECIALIST OT EVAL AND TREAT Routine 11/13/2024 9:5 0 PM GRANTS SPECIALIST MRI PRIOR STUDY Routine 11/10/2024 6:35 AM GRANTS SPECIALIST MRI PRIOR STUDY Routine 11/10/2024 6:30 AM GRANTS SPECIALIST X-RAY PRIOR STUDY Routine 11/09/2024 8:0 0 PM GRANTS SPECIALIST X-RAY PRIOR STUDY Routine 11/09/2024 7:5 5 PM GRANTS SPECIALIST X-RAY PRIOR STUDY Routine 11/09/2024 4:4 5 AM GRANTS SPECIALIST X-RAY PRIOR STUDY Routine 11/09/2024 4:4 0 AM GRANTS SPECIALIST X-RAY PRIOR STUDY Routine 11/09/2024 3:4 5 AM GRANTS SPECIALIST X-RAY PRIOR STUDY Routine 11/09/2024 3:[address] PRIOR STUDY Routine 11/09/2024 3:30 AM GRANTS SPECIALIST PET BONE IMG W CT SKL BSE MID THG Routine 11/05/2024 2:45 PM GRANTS SPECIALIST from Last 3 Months Results * VANCOMYCIN LEVEL RANDOM (11/26/2024 4:39 AM GRANTS SPECIALIST) Only the most recent of7 resultswithin the time period is included. VANCOMYCIN, RANDOM 17.8 No Ref Range Estab ug/mL 11/26/2024 6:35 AM GRANTS SPECIALIST [facility] Blood Venipuncture / Unknown 11/26/2024 4:39 AM GRANTS SPECIALIST 11/26/2024 6:05 AM GRANTS SPECIALIST us Diego Mcknight MD CHEMISTRY ORDERABLES Final Result [facility] CLIA# [id number] [place] [address] * (ABNORMAL) RENAL FUNCTION PANEL (11/26/2024 4:39 AM GRANTS SPECIALIST) Only the most recent of12 resultswithin the time period is included. SODIUM 131(L) 136 - 145 mmol/L 11/26/2024 6:35 AM [facility] [employer] [facility] POTASSIUM 4.9 3.4 - 5.1 mmol/L 11/26/2024 6:35 AM [facility] [employer] [facility] CHLORIDE 96(L) 98 - 107 mmol/L 11/26/2024 6:35 AM [facility] CO2 21(L) 22 - 29 mmol/L 11/26/2024 6:35 AM [facility] CALCIUM 10.3 8.6 - 10.4 mg/dL 11/26/2024 6:35 AM [facility] BUN 53(H) 6 - 20 mg/dL 11/26/2024 6:35 AM [facility] CREATININE 7.72(H) 0.67 - 1.17 mg/dL 11/26/2024 6:35 AM [facility] GLUCOSE 100(H) 74 - 99 mg/dL 11/26/2024 6:35 AM [facility] ALBUMIN 3.3(L) 3.5 - 5.2 g/dL 11/26/2024 6:35 AM [facility] [employer] [facility] PHOSPHORUS 4.5 2.5 - 4.5 mg/dL 11/26/2024 6:35 AM [facility] GFR 7(L) >=60 mL/min/1.7 3 sq meter 11/26/2024 6:35 AM [facility] [employer] [facility] Comment:eGFR calculated with 2020 CKD-EPI equation. Vegetarian diet, extremely high or low muscle mass, and may affect results. Cystatin C with Glomerular Filtration Rate is a suitable alternative for these patients. ANION GAP 14 8 - 16 mmol/L 11/26/2024 6:35 AM [facility] [employer] [facility] Blood Venipuncture / Unknown 11/26/2024 4:39 AM GRANTS SPECIALIST 11/26/2024 6:05 AM GRANTS SPECIALIST Result [facility] Jesus Luciano DPNegro CHEMISTRY ORDERABLES Final Result Performing Organization Address [facility]/ZIP Co de Phone Number [facility] CLIA# [id number] [address] [place] [address] * (ABNORMAL) PTT (11/25/2024 7:42 PM GRANTS SPECIALIST) Only the most recent of22 resultswithin the time period is included. PTT 70.1(H) 23.1 - 37.1 seconds 11/25/2024 8:24 PM GRANTS SPECIALIST [facility] Blood Venipuncture / Unknown 11/25/2024 7:42 PM GRANTS SPECIALIST 11/25/2024 7:59 PM GRANTS SPECIALIST Diego Mcknight MD HEMATOLOGY ORDERABLES Selin l Result Performing Organization Address City/[facility]/ZIP Co de Phone Number [facility] CLIA# [id number] [place] [address] * TELEMETRY REPORT (11/25/2024 3:26 PM GRANTS SPECIALIST) Only the most recent of16 resultswithin the time period is included. Provider Scanning ECG ORDERABLES Final Result * (ABNORMAL) CBC WITHOUT DIFFERENTIAL (11/24/2024 2:56 AM [facility]) WBC 8.9 4.0 - 9.8 K/uL 11/24/2024 5:01 AM [facility] RBC 2.20(L) 4.50 - 5.40 M/uL 11/24/2024 5:01 AM [facility] HEMOGLOBIN 7.3(L) 13.6 - 16.5 g/dL 11/24/2024 5:01 AM [facility] HEMATOCRIT 22.7(L) 40.0 - 48.0 % 11/24/2024 5:01 AM [facility] MCV 103.2(H) 82.0 - 99.0 fL 11/24/2024 5:01 AM [facility] MCH 33.2(H) 27.2 - 32.6 pg 11/24/2024 5:01 AM [facility] MCHC 32.2 31.5 - 35.5 g/dL 11/24/2024 5:01 AM [facility] PLATELETS 332 140 - 350 K/uL 11/24/2024 5:01 AM [facility] MPV 10.2 9.3 - 12.4 fL 11/24/2024 5:01 AM [facility] RDW 17.3(H) 11.5 - 14.5 % 11/24/2024 5:01 AM [facility] RDW-STDEV 65.5(H) 37.1 - 48.7 fL 11/24/2024 5:01 AM [facility] Blood Venipuncture / Unknown 11/24/2024 2:56 AM [facility] 11/24/2024 5:01 AM [facility] us Diego Mcknight MD HEMATOLOGY ORDERABLES Selin l Result [facility] CLIA# [id number] [place] [address] * XR FOOT 3+ VW RIGHT (11/23/2024 1:04 PM [facility]) Anatomical Region Laterality Modality Ankle / Foot Computed Radiogr aphy 11/23/2024 1:04 PM [facility] Impressions 11/23/2024 1:14 PM [facility] IMPRESSION: 1. Interval first digit amputation. DICTATION LOCATION: Location 7 - [facility] Narrative 11/23/2024 1:14 PM [facility] EXAMINATION: XR FOOT 3+ VW RIGHT DATE: 11/23/2024 1:04 PM HISTORY: Other - Please see comments, Comment: Post op; Chronic anemia COMPARISON: Outside institution radiographs from 11/09/2024 FINDINGS: There is no evidence of acute fracture or dislocation. There is interval amputation of the first digit at the proximal metatarsal shaft. Bone mineralization is normal. Soft tissue swelling is seen. Calcaneal spurs are present. Procedure Note Bryan Akbar MD - 11/23/2024 EXAMINATION: XR FOOT 3+ VW RIGHT DATE: 11/23/2024 1:04 PM HISTORY: Other - Please see comments, Comment: Post op; Chronic anemia COMPARISON: Outside institution radiographs from 11/09/2024 FINDINGS: There is no evidence of acute fracture or dislocation. There is interval amputation of the first digit at the proximal metatarsal shaft. Bone mineralization is normal. Soft tissue swelling is seen. Calcaneal spurs are present. IMPRESSION: 1. Interval first digit amputation. DICTATION LOCATION: Location - [facility] Jesus Luciano DPM DIAGNOSTIC IMAGING ORDERABL ES Final Result * TRANSFUSE RED BLOOD CELLS (11/23/2024 12:36 PM [facility]) Only the most recent of2 resultswithin the time period is included. Reinier Dale MD BLOOD TRANSFUSI ON ORDERABLES Final Result * PATHOLOGY (11/23/2024 11:55 AM [facility]) CASE REPORT Surgical Pathology Report Case: [id number] Authorizing Provider: Jesus Luciano DPM Collected: 11/23/2024 11:55 AM Ordering Location: [facility] Received: 11/25/2024 09:35 AM Operating Room Pathologist: Shirley Tran MD Specimens: A) - Bone, proximal first metatarsal, Toe Great, right B) - Toe Great, right, right great toe 11/27/2024 3:40 PM [facility] SERVICES - [facility] FINAL DIAGNOSIS Bone, proximal first metatarsal, excision - Bone with focal acute inflammation, consistent with focal acute osteomyelitis - Bone with degenerative/regenera tive change Foot, right great toe, amputation - Skin and soft tissue with ulceration, abscess, and devitalization/necros is - Bone with devitalization/necros is 11/27/2024 3:40 PM [facility] at 1539 [facility] GROSS DESCRIPTION A. Received in formalin labeled with the patient's name and proximal first metatarsal is a yellow-mckeon bone fragment measuring 0.7 x 0.5 x 0.3 cm. The specimen is entirely submitted as A1 after decalcification. B. Received in formalin labeled with the patient's name and right great toe is a 5.5 cm in length and 3.5 cm in diameter digit. The entire tip of the digit is involved by a metz/blackened wet, ulcerated lesion extending to the underlying bone and the skin and soft tissue resection margin. The lesion measures 3.5 x 2.5 cm. Also received is a separate portion of bone measuring 3.5 cm in length and 2.5 cm in diameter. Blocks are submitted as follows: B1-skin and soft tissue at resection margin B2-lesion B3-bone underlying lesion submitted after decalcification 11/27/2024 3:40 PM [facility] MICROSCOPIC DESCRIPTION Microscopic review supports the diagnosis. 11/27/2024 3:40 PM [facility] OPERATIVE PROCEDURE 1: TOE(S) AMPUTATION 11/27/2024 3:40 PM [facility] CLINICAL INFORMATION UNKNOWN 11/27/2024 3:40 PM [facility] COMMENT Immunohistochemical stains were performed, if any, and interpreted at [facility] ([facility]) Laboratory with appropriately staining controls. This test was developed and its performance characteristics determined by [facility] Lab. It has not been cleared or approved by the US Food and Drug Administration. The FDA does not require this test to go through premarket FDA review. This test is used for clinical purposes, and should not be regarded as investigational or for research. This lab is certified under CLIA to perform high complexity testing. Estrogen and progesterone receptor staining has not been validated in our lab on decalcified tissue; decalcification may decrease immunoreactivity for these and other antigens. 11/27/2024 3:40 PM [facility] Tissue ENTIRE BONE ORGAN / Unknown Collection / Unknown 11/23/2024 11:55 AM [facility] 11/25/2024 9:35 AM [facility] Tissue specimen (specimen) (Toe Great, right) Collection / Unknown 11/23/2024 11:55 AM [facility] 11/25/2024 9:35 AM [facility] Jesus Luciano DPM PATHOLOGY/CYTOLOGY ORDERABL ES Final Result [facility] [employer] [facility] CLIA# [id number] [place] [address] * (ABNORMAL) ANAEROBIC/AEROBIC CULTURE W GRAM STAIN (11/23/2024 11:55 AM [facility]) CULTURE STAPHYLOCOCCUS EPIDERMIDIS(A) DAVID MCG/ML 11/28/2024 11:33 AM [facility] [employer] [facility] GRAM STAIN No organisms observed 11/28/2024 11:33 AM [facility] [employer] [facility] GRAM STAIN 1+ (Rare or Occasional) Polymorphonuclear WBC 11/28/2024 11:33 AM [facility] [employer] [facility] Tissue (Toe Great, right) Collection / Unknown 11/23/2024 11:55 AM [facility] 11/23/2024 12:53 PM [facility] Jesus Luciano DPM MICROBIOLOGY - GENERAL ORDE RABLES Final Result [facility] [employer] [facility] CLIA# [id number] [address] [place] [address] * PREPARE RED BLOOD CELLS (11/23/2024 6:58 AM [facility]) Only the most recent of3 resultswithin the time period is included. COMPONENT TYPE [id number] [facility] [employer] [facility] COMPONENT IDENTIFICATION [id number] [facility] SERVICES [facility] UN[facility] ABO O [facility] SERVICES - [facility] UNIT RH POS [facility] - [facility] CROSSMATCH Compatible [facility] COMPONENT STATUS Transfused ME [facility]ORY SERVICES - [facility] COMPONENT EXPIRATION DATE/TIME [id number] [facility] COMPONENT CODING SYSTEM [address] [facility] VOLUME, BLOOD PRODUCT 350 [facility] Other, specify 11/23/2024 6: 58 AM [facility] Reinier Dale MD LAB TRANSFUSION ORDERABLES Edited Result - Final [facility] CLIA# [id number] [place] [address] * (ABNORMAL) CBC WITH DIFFERENTIAL (11/23/2024 3:44 AM [facility]) Only the most recent of9 resultswithin the time period is included. WBC 9.6 4.0 - 9.8 K/uL 11/23/2024 4:11 AM [facility] RBC 2.12(L) 4.50 - 5.40 M/uL 11/23/2024 4:11 AM [facility] HEMOGLOBIN 7.0(L) 13.6 - 16.5 g/dL 11/23/2024 4:11 AM [facility] HEMATOCRIT 21.9(L) 40.0 - 48.0 % 11/23/2024 4:11 AM [facility] MCV 103.3(H) 82.0 - 99.0 fL 11/23/2024 4:11 AM [facility] MCH 33.0(H) 27.2 - 32.6 pg 11/23/2024 4:11 AM [facility] MCHC 32.0 31.5 - 35.5 g/dL 11/23/2024 4:11 AM [facility] RDW 16.6(H) 11.5 - 14.5 % 11/23/2024 4:11 AM [facility] RDW-STDEV 62.7(H) 37.1 - 48.7 fL 11/23/2024 4:11 AM [facility] [employer] [facility] PLATELETS 346 140 - 350 K/uL 11/23/2024 4:11 AM [facility] MPV 9.8 9.3 - 12.4 fL 11/23/2024 4:11 AM [facility] NEUTROPHILS 74 % 11/23/2024 4:11 AM [facility] LYMPHOCYTES 13 % 11/23/2024 4:11 AM [facility] MONOCYTES 10 % 11/23/2024 4:11 AM [facility] EOSINOPHILS 2 % 11/23/2024 4:11 AM [facility] BASOPHILS 1 % 11/23/2024 4:11 AM [facility] IMMATURE GRANULOCYTES 1 % 11/23/2024 4:11 AM [facility] Comment:IG (Immature Granulo cyte) count includes Metamyelocytes, Myelocytes, and Promyelocytes NEUTROPHIL ABSOLUTE 7.09(H) 1.90 - 7.00 K/uL 11/23/2024 4:11 AM [facility] LYMPHOCYTE ABSOLUTE 1.19 0.70 - 4.50 K/uL 11/23/2024 4:11 AM [facility] MONOCYTE ABSOLUTE 0.94 0.10 - 1.30 K/uL 11/23/2024 4:11 AM [facility] EOSINOPHIL ABSOLUTE 0.20 0.00 - 0.70 K/uL 11/23/2024 4:11 AM [facility] BASOPHILS ABSOLUTE 0.07 0.00 - 0.20 K/uL 11/23/2024 4:11 AM [facility] [employer] [facility] IMMATURE GRANULOCYTES ABSOLUTE 0.06(H) 0.00 - 0.03 K/uL 11/23/2024 4:11 AM [facility] Blood Venipuncture / Unknown 11/23/2024 3:44 AM [facility] 11/23/2024 4:11 AM [facility] Noy Jackson DO HEMATOLOGY ORDERABLES Selin l Result Performing Organization Address [facility]/ZIP Co de Phone Number [facility] [id number] [place] [address] * TYPE AND SCREEN (11/23/2024 3:44 AM [facility]) Only the most recent of2 resultswithin the time period is included. ABO GROUP O 11/23/2024 4:42 AM [facility] RH (D) TYPE Positive 11/23/2024 4:42 AM [facility] ANTIBODY SCREEN Negative 11/23/2024 4:42 AM [facility] Blood Venipuncture / Unknown 11/23/2024 3:44 AM [facility] 11/23/2024 3:50 AM [facility] Noy Jackson DO BLOOD BANK ORDERABLES Edit ed Result - Final Performing Organization Address [facility] Co de Phone Number [facility]# [id number] [place] [address] * POTASSIUM LEVEL (11/22/2024 4:05 PM [facility]) Pathologist [facility] POTASSIUM 4.6 3.4 - 5.1 mmol/L 11/22/2024 5:15 PM [facility] Blood Venipuncture / Unknown 11/22/2024 4:05 PM [facility] 11/22/2024 4:26 PM [facility] Kianna Lu MD CHEMISTRY ORDERABLES Final Resul t Performing Organization Address [facility]/ZIP Co de Phone Number [facility]# [id number] [place] [address] * HEMODIALYSIS (11/22/2024 12:01 PM [facility]) Narrative Karissa Au RN - 11/22/2024 12:01 PM [facility] Karissa Au RN 11/22/2024 12:03 PM Hemodialysis Treatment Note Target Weight Loss (kg): 1000-2000mL Total UF Removed: 1000mL Total Saline Administered: 0 Approximate (Net) Fluid Removed: 1000mL PRE Vascular Access Status: Right forearm fistula with + bruit/thrill. No s/s of infection. Accessed with 15g needles without complications. Dialyzer: Revaclear 300 Blood Flow Rate: 400 Dialysate Flow Rate: 300 Total Dialysis Treatment Time: [address] [place] Total Blood Volume Processed: 48 POST Vascular Access Status: Right forearm fistula with + bruit/thrill. [place] removed. Direct pressure held until hemostasis achieved. 10 minutes. Pressure dressing applied and secured with tape. Run Summary: Pt was hemodynamically stable during dialysis. A/O x3. Denies chest pain or other discomfort. Report given to primary care RN. See HD flowsheet for all data. Interventions: Cardiac monitoring during dialysis. Vital signs monitored q 15 minutes and PRN. Treatment adjustment per hemodynamics and patient response. Last Vital Signs: Blood pressure 132/80, pulse (!) 105, temperature 98 F (36.7 C), resp. rate 15, height 6' (1.829 m), weight 90.8 kg (200 lb 1.6 oz), SpO2 98%. Karissa Au, LEEROY Rl Dueñas MD DIALYSIS ORDERABLES Final Result * MAGNESIUM LEVEL (11/21/2024 6:01 AM [facility]) Only the most recent of3 resultswithin the time period is included. MAGNESIUM 2.1 1.6 - 2.6 mg/dL 11/21/2024 6:44 AM [facility] [employer] [facility] Blood Venipuncture / Unknown 11/21/2024 6:01 AM [facility] 11/21/2024 6:07 AM [facility] Roni Barahona PA-C CHEMISTRY ORDERABLES Final Result [facility] [employer] [facility] CLIA# [id number] [place] [address] * (ABNORMAL) BASIC METABOLIC PANEL (11/21/2024 6:01 AM [facility]) Only the most recent of2 resultswithin the time period is included. SODIUM 130(L) 136 - 145 mmol/L 11/21/2024 6:44 AM [facility] POTASSIUM 5.6(H) 3.4 - 5.1 mmol/L 11/21/2024 6:44 AM [facility] CHLORIDE 103 98 - 107 mmol/L 11/21/2024 6:44 AM [facility] CO2 17(L) 22 - 29 mmol/L 11/21/2024 6:44 AM [facility] CALCIUM 9.5 8.6 - 10.4 mg/dL 11/21/2024 6:44 AM [facility] BUN 51(H) 6 - 20 mg/dL 11/21/2024 6:44 AM [facility] CREATININE 7.46(H) 0.67 - 1.17 mg/dL 11/21/2024 6:44 AM [facility] GLUCOSE 174(H) 74 - 99 mg/dL 11/21/2024 6:44 AM [facility] GFR 8(L) >=60 mL/min/1.7 3 sq meter 11/21/2024 6:44 AM [facility] Comment:eGFR calculated with 2020 CKD-EPI equation. Vegetarian diet, extremely high or low muscle mass, and may affect results. Cystatin C with Glomerular Filtration Rate is a suitable alternative for these patients. ANION GAP 10 8 - 16 mmol/L 11/21/2024 6:44 AM [facility] Blood Venipuncture / Unknown 11/21/2024 6:01 AM [facility] 11/21/2024 6:07 AM [facility] Roni Barahona PA-C CHEMISTRY ORDERABLES Final Result [facility] CLIA# [id number] [place] [address] * POC GLUCOSE (11/21/2024 5:39 AM [facility]) GLUCOSE POC 90 74 - 99 mg/dL 11/21/2024 5:39 AM [facility]IST [facility] POINT OF CARE SPECIMEN SOURCE, GLUCOSE POC Whole Blood 11/21/2024 5:39 AM [facility] POINT OF CARE Blood, whole 11/21/2024 5:39 AM [facility] 11/21/2024 11:05 AM [facility] us Diego Mcknight MD POINT OF CARE TESTING Selin l Result [facility] POINT OF CARE CLIA # [id number] [place] [address] * EKG 12-LEAD (11/21/2024 5:29 AM [facility]) Only the most recent of2 resultswithin the time period is included. 11/21/2024 5:29 AM [facility] Narrative INTERFACE SYSTEM - 11/21/2024 7:30 AM [facility] [address] [address] Test Date: 2024-11-21 Pat Name: JC DE LEON Department: 98 Room: [address] [place] [address] Gender: Male Credit Adjuster: sb : 1960 Requested By: CHONG GARCIA Order Number: [id number] Reading MD: Chong Veloz Measurements Intervals Eugene Rate: 79 P: 0 WA: 0 QRS: 17 QRSD: 100 T: 122 QT: 412 QTc: 472 Interpretive Statements Atrial fibrillation ST & Marked T wave abnormality, consider anterolateral ischemia Prolonged QT Abnormal ECG Compared to ECG 11/17/2024 12:43:44 Prolonged QT interval now present Electronically Signed On 11-21-2024 7:30:28 [facility] by Chong Veloz Procedure Note Chong Veloz MD - 11/21/[address] [address] Test Date: 2024-11-21 Pat Name: JC DE LEON Department: 98 Room: 6420 Gender: Male Credit Adjuster: sb : 1960 Requested By: CHONG GARCIA Order Number: [id number] Tello MD: Chong Veloz Measurements Intervals Eugene Rate: 79 P: 0 WA: 0 QRS: 17 QRSD: 100 T: 122 QT: 412 QTc: 472 Interpretive Statements Atrial fibrillation ST & Marked T wave abnormality, consider anterolateral ischemia Prolonged QT Abnormal ECG Compared to ECG 11/17/2024 12:43:44 Prolonged QT interval now present Electronically Signed On 11-21-2024 7:30:28 [facility] by Chong Veloz us Roni Barahona PA-C ECG ORDERABLES Final Resul t INTERFACE SYSTEM Refer to clinic/hospital department * VERIFICATION BLOOD GROUP (11/20/2024 8:52 PM [facility]IST) ABO GROUP O 11/20/2024 10:00 PM [facility] [employer] [facility] RH (D) TYPE Positive 11/20/2024 10:00 PM [facility] Blood Venipuncture / Unknown 11/20/2024 8:52 PM [facility] 11/20/2024 9:29 PM [facility] us Franca Dykes MD BLOOD BANK ORDERAB LES Final Result [facility] CLIA# [id number] [place] [address] * (ABNORMAL) HEMOGLOBIN AND HEMATOCRIT (11/20/2024 3:13 PM [facility]) HEMOGLOBIN 7.3(L) 13.6 - 16.5 g/dL 11/20/2024 3:31 PM [facility] HEMATOCRIT 22.5(L) 40.0 - 48.0 % 11/20/2024 3:31 PM [facility] Blood Venipuncture / Unknown 11/20/2024 3:13 PM [facility] 11/20/2024 3:28 PM [facility] Best Aiken MD HEMATOLOGY ORDERABLES Selin l Result Performing Organization Address City/[facility]/ZIP Co de Phone Number [facility] CLIA# [id number] [place] [address] * POC ACTIVATED CLOTTING TIME (11/20/2024 1:23 PM [facility]) Only the most recent of11 resultswithin the time period is included. ACTIVATED CLOTTING TIME POC 157 sec 11/20/2024 1:23 PM [facility] Comment: Target Range(s): >400 sec. Cardiovascular Surgery >250 sec. when Cardiac Cath or other intervention is performed. <180 sec. to pull sheath Blood 11/20/2024 1:23 PM [facility] 11/20/2024 1:52 PM [facility] Diego Mcknight MD POINT OF CARE TESTING Selin l Result Performing Organization Address City/[facility]/ZIP Co de Phone Number [facility] CLIA# [id number] [place] [address] * XR OR (11/20/2024 1:12 PM [facility]IST) [facility] POINT OF CARE - 11/20/2024 1:13 PM [facility] Order information only. Exam was auto-finalized. Franca Dykes MD DIAGNOSTIC IMAGING ORDERABLES Final Result Performing Organization Address City/[facility]/ZIP Co de Phone Number [facility] POINT OF CARE [place] # [id number] [place] [address] * POC LACTIC ACID (11/20/2024 12:10 PM [facility]) Only the most recent of2 resultswithin the time period is included. LACTIC ACID POC 0.6 <=2.0 mmol/L 11/20/2024 12:10 PM [facility] SPECIMEN SOURCE, GASES POC Arterial 11/20/2024 12:10 PM [facility] Blood 11/20/2024 12:1 0 PM [facility]IST 11/20/2024 12:11 PM [facility] us Diego Mcknight MD POINT OF CARE TESTING Selin tran Result [facility] CLIA# [id number] [place] [address] * (ABNORMAL) BLOOD GAS,(INCL. H+H, LYTES, GLUC) (11/20/2024 12:10 PM [facility]) Only the most recent of2 resultswithin the time period is included. PH BLOOD POC 7.37 7.35 - 7.45 11/20/2024 12:10 PM [facility] PCO2 POC 35 35 - 48 mm Hg 11/20/2024 12:10 PM [facility] PO2 POC 144(H) 83 - 108 mm Hg 11/20/2024 12:10 PM [facility] HCO3 (CALC) POC 20(L) 22 - 26 mmol/L 11/20/2024 12:10 PM [facility] O2 SATURATION POC 100(H) 94 - 98 % 11/20/2024 12:10 PM [facility] BASE EXCESS POC -5(L) -2 - 3 mmol/L 11/20/2024 12:10 PM [facility] HEMOGLOBIN POC 6.4(LL) 13.6 - 16.5 g/dL 11/20/2024 12:10 PM [facility] HEMATOCRIT POC 19(L) 40 - 48 % 11/20/2024 12:10 PM [facility] Comment:Estimated Value GLUCOSE POC 92 74 - 99 mg/dL 11/20/2024 12:10 PM [facility] SODIUM POC 131(L) 135 - 145 mmol/L 11/20/2024 12:10 PM [facility] POTASSIUM POC 5.8(H) 3.5 - 4.9 mmol/L 11/20/2024 12:10 PM [facility] CHLORIDE POC 105 98 - 107 mmol/L 11/20/2024 12:10 PM [facility] CALCIUM IONIZED POC 5.3(H) 4.8 - 5.2 mg/dL 11/20/2024 12:10 PM [facility] PH TEMP CORRECT 7.37 7.35 - 7.45 11/20/19 25 12:10 PM [facility] PCO2 TEMP CORRECT 35 35 - 48 mm Hg 11/20/2024 12:10 PM [facility] PO2 TEMP CORRECT 144(H) 83 - 108 mm Hg 11/20/2024 12:10 PM [facility] SPECIMEN SOURCE, GASES POC Arterial 11/20/2024 12:10 PM [facility] PATIENT'S TEMPERATURE POC 37.0 degrees 11/20/2024 12:10 PM [facility] OXYGEN CONTENT POC 9.0 mL/dL 11/20/2024 12:10 PM [facility] Blood, arterial 11/20/2024 1 2:10 PM [facility] 11/20/2024 12:11 PM [facility] us Diego Mcknight MD ABG ORDERABLES Final Resu lt [facility] CLIA# [id number] [id number] [place] [address] * (ABNORMAL) OXIMETRY (11/20/2024 12:10 PM [facility]) Only the most recent of2 resultswithin the time period is included. OXYHEMOGLOBIN POC 96.4 94.0 - 97.0 % 11/20/2024 12:10 PM [facility] HEMOGLOBIN POC 6.4(LL) 13.6 - 16.5 g/dL 11/20/2024 12:10 PM [facility] OXYGEN CONTENT POC 9.0 mL/dL 11/20/2024 12:10 PM [facility] O2 SATURATION POC 100(H) 94 - 98 % 025 12:10 PM [facility] SPECIMEN SOURCE, GASES POC Arterial 11/20/2024 12:10 PM [facility] SAMPLE SITE, GASES POC N-SY 11/20/2024 12:10 PM [facility] Blood 11/20/2024 12:1 0 PM [facility] 11/20/2024 12:11 PM [facility] Diego Mcknight MD ABG ORDERABLES Final Resu lt Performing Organization Address City/[facility]/ZIP Co de Phone Number [facility] CLIA# [id number] [place] [id number] * (ABNORMAL) METHEMOGLOBIN QUANTITATIVE (11/20/2024 12:10 PM [facility]) Only the most recent of2 resultswithin the time period is included. METHEMOGLOBIN QUANT POC 1.2 <=1.5 % 11/20/2024 12:10 PM [facility] HEMOGLOBIN POC 6.4(LL) 13.6 - 16.5 g/dL 11/20/2024 12:10 PM [facility] Blood 11/20/2024 12:1 0 PM [facility] 11/20/2024 12:11 PM [facility] us Diego Mcknight MD ABG ORDERABLES Final Resu lt [facility] CLIA# [id number] [place] [address] * (ABNORMAL) CARBOXYHEMOGLOBIN (11/20/2024 12:10 PM [facility]) Only the most recent of2 resultswithin the time period is included. CARBOXYHEMOGLOBIN POC 2.4 <=7.0 % 02/2025 12:10 PM [facility] HEMOGLOBIN POC 6.4(LL) 13.6 - 16.5 g/dL 11/20/2024 12:10 PM [facility] Blood 11/20/2024 12:1 0 PM [facility] 11/20/2024 12:11 PM GRANTS SPECIALIST us Diego Mcknight MD ABG ORDERABLES Final Resu lt [facility] CLIA# [id number] [place] [address] * WA ANES INSERT CATH, ART, PERCUT, SHORTTERM (11/20/2024 8:36 AM GRANTS SPECIALIST) Narrative Darius Dela Cruz AA-C - 11/20/2024 8:36 AM [facility]S SPECIALIST Darius Dela Cruz AA-C 11/20/2024 8:38 AM Arterial Line Insertion Start Time: 11/20/2024 7:43 AM End Time: 11/20/2024 7:46 AM Patient location during procedure: OR Staffing Performed: Student NA/AA Authorized by: Kianna Lu MD Performed by: Darius Dela Cruz AA-C time out called Patient was prepped and draped in usual sterile fashion Indications: multiple ABGs and hemodynamic monitoring Hand hygiene performed prior to procedure Sterile Barriers: gloves, gown, cap and mask Preparation: skin prepped with alcohol Skin prep agent dried: skin prep agent completely dried prior to procedure Patient position: flat Location: left radial Seldinger technique used Catheter type: radial kit Catheter size: 20 G Catheter Length (in.): 1.75 Barney Identification: palpation technique Number of attempts: 1 Successful placement: yes Assessment: blood return through port Procedure uneventful Post-procedure: line secured and dressing applied us Kianna Lu MD PROCEDURE/MINOR SURGICAL ORDERAB LES Final Result * WA ANES VNPNXR 3 YEARS/> PHYS/QHP SKILL, PERIPHERAL IV ADULT (11/20/2024 8:15 AM GRANTS SPECIALIST) Narrative Darius Dela Cruz AA-C - 11/20/2024 8:15 AM GRANTS SPECIALIST Darius Dela Cruz AA-C 11/20/2024 8:36 AM Peripheral Line Insertion Date/Time: 11/20/2024 8:15 AM Staffing Performed: PRECONSTRUCTION MANAGER/CAA Authorized by: Kianna Lu MD Performed by: Darius Dela Cruz AA-C Preparation: Skin prepped with alcohol Skin prep agent dried: skin prep agent completely dried prior to procedure Hand hygiene: hand hygiene performed prior to procedure Patient was prepped and draped in usual sterile fashion Location: left wrist Ultrasound guided: no Catheter size: 18 gauge Number of attempts: 1 Successful placement: yes Assessment: effective initial placement and positive blood return Procedure uneventful Kianna Lu MD PROCEDURE/MINOR SURGICAL ORDERAB LES Final Result * WA ANES INSERT ENDOTRACHEAL AIRWAY (11/20/2024 7:36 AM GRANTS SPECIALIST) Narrative Darius Dela Cruz AA-C - 11/20/2024 7:36 AM [facility]S SPECIALIST Darius Dela Cruz AA-C 11/20/2024 8:17 AM Airway Date/Time: 11/20/2024 7:36 AM Location: OR Plan: elective intubation Patient Identity Confirmed by: Verbally with patient and armband Airway: not difficult Staffing Performed: Student NA/AA Authorized by: Kianna Lu MD Performed by: Darius Dela Cruz AA-C Biomedical Electronics Technician: Kianna Lu MD Indications and Patient Condition: Indications for Airway Management: Anesthesia Sedation Level: general anesthesia Preoxygenated: yes Patient Position: Sniffing Mask Difficulty Assessment: 1 - vent by mask Plan to extubate at end of case: Yes Final Airway Details: Final Airway Type: Endotracheal airway ETT Cuffed: Yes Cuff Volume (mL): 8 Technique Used for Successful ETT Placement: Direct laryngoscopy Devices/Methods Used in Placement: Intubating stylet Blade Type: curved blade Blade Size: 3 Insertion Site: Oral ETT Size (mm): 7.5 Measured from: Gums ETT to Gums (cm): 23 Tube secured with: Tape Placement Verified by: auscultation, end tidal CO2 and chest rise Cormack-Lehane Classification: Grade IIa - partial view of glottis Number of Attempts at Approach: 1 Additional Procedure Information: atraumatic Kianna Lu MD PROCEDURE/MINOR SURGICAL ORDERAB LES Final Result * EXTRA TUBE (BLUE) (11/18/2024 12:41 AM GRANTS SPECIALIST) Blood Venipuncture / Unknown 11/18/2024 12:41 AM GRANTS SPECIALIST 11/18/2024 12:41 AM GRANTS SPECIALIST Brant Leonard MD HEMATOLOGY ORDERABLES Final Re sult Performing Organization Address [facility] Co de Phone Number [facility] [employer] [facility]# [id number] [place] [address] * (ABNORMAL) UNFRACTIONATED HEPARIN MONITORING (11/17/2024 5:21 PM GRANTS SPECIALIST) Only the most recent of8 resultswithin the time period is included. ANTI-XA UNFRAC HEP >1.10(HH) See Interpreta tion. IU/mL 11/17/2024 7:01 PM GRANTS SPECIALIST [facility] Blood Venipuncture / Unknown 11/17/2024 5:21 PM GRANTS SPECIALIST 11/17/2024 6:06 PM GRANTS SPECIALIST Narrative [facility] - 11/17/2024 7:01 PM GRANTS SPECIALIST Unfractionated Heparin Therapeutic Range: 0.30-0.70 IU/ml Refer to pharmacy adult heparin protocol for further recommendation. The reference range for this test is specific to the anticoagulant and is not appropriate for monitoring patients on a DOAC protocol. Miracle Horne NP HEMATOLOGY ORDERABLES Final Res ult Performing Organization Address City/[facility]/ZIP Co de Phone Number [facility]# [id number] [place] [address] * NM MYOCARD PERF IMAG SPECT MULT (11/17/2024 9:21 AM GRANTS SPECIALIST) 11/17/2024 9:23 AM GRANTS SPECIALIST Narrative INTERFACE SYSTEM - 11/17/2024 10:58 AM GRANTS SPECIALIST HISTORY: Preoperative risk assessment RESTING EKG: Normal sinus rhythm with lateral ischemia PROCEDURE: The patient received Lexiscan 5 ml (0.1 mg Regadenoson) administered intravenously over 10 seconds followed by a 5 ml saline flush. Immediately after the Lexiscan injection, the radionuclide myocardial perfusion imaging agent was injected. The heart rate at rest is 86 beats per minute. Blood pressure at rest is 129/87. At completion the heart rate is 86 beats per minute. Blood pressure is 130/74. No change in baseline ST abnormality with Lexiscan infusion.. Minimal generalized symptoms during the Lexiscan stress test subsiding in recovery without treatment. The patient did not experience chest pain. TECHNIQUE: SPECT imaging was obtained after 6.5 mCi of Technetium-99m Sestamibi was given during rest and 19.2 Technetiurn-99m Sestarnibi was given during stress. During stress. the patient was given 0.4 mg of Lexiscan. FINDINGS: Rest and stress tomographic images reveal a large, moderate severity, fixed inferior perfusion defect. The remainder of myocardial segments demonstrate normal perfusion on rest and stress imaging. Gated SPECT reveals normal left ventricular size and systolic function with no regional wall motion abnormalities. The calculated ejection fraction is 62%. SUMMARY: 1. No evidence of myocardial ischemia. 2. Large, moderate severity, fixed inferior perfusion defect. While a prior nontransmural infarction cannot entirely be excluded, this finding is most consistent with diaphragmatic attenuation. 3. Normal left ventricular size and systolic function. Calculated ejection fraction 62%. 4. No change in baseline ST abnormality with Lexiscan infusion. Supervising physician: Dr. Michi Mckeon Procedure Note Michi Mckeon MD - 11/17/2024 HISTORY: Preoperative risk assessment RESTING EKG: Normal sinus rhythm with lateral ischemia PROCEDURE: The patient received Lexiscan 5 ml (0.1 mg Regadenoson) administered intravenously over 10 seconds followed by a 5 ml saline flush. Immediately after the Lexiscan injection, the radionuclide myocardial perfusion imaging agent was injected. The heart rate at rest is 86 beats per minute. Blood pressure at rest is 129/87. At completion the heart rate is 86 beats per minute. Blood pressure is 130/74. No change in baseline ST abnormality with Lexiscan infusion.. Minimal generalized symptoms during the Lexiscan stress test subsiding in recovery without treatment. The patient did not experience chest pain. TECHNIQUE: SPECT imaging was obtained after 6.5 mCi of Technetium-99m Sestamibi was given during rest and 19.2 Technetiurn-99m Sestarnibi was given during stress. During stress. the patient was given 0.4 mg of Lexiscan. FINDINGS: Rest and stress tomographic images reveal a large, moderate severity, fixed inferior perfusion defect. The remainder of myocardial segments demonstrate normal perfusion on rest and stress imaging. Gated SPECT reveals normal left ventricular size and systolic function with no regional wall motion abnormalities. The calculated ejection fraction is 62%. SUMMARY: 1. No evidence of myocardial ischemia. 2. Large, moderate severity, fixed inferior perfusion defect. While a prior nontransmural infarction cannot entirely be excluded, this finding is most consistent with diaphragmatic attenuation. 3. Normal left ventricular size and systolic function. Calculated ejection fraction 62%. 4. No change in baseline ST abnormality with Lexiscan infusion. Supervising physician: Dr. Michi Mckeon Michi Mckeon MD AL ORDERABLES Final Result Performing Organization Address City/[facility] Co de Phone Number INTERFACE SYSTEM Refer to clinic/hospital department * NM PHARMACOLOGICAL STRESS TEST (11/17/2024 8:23 AM GRANTS SPECIALIST) [facility] POINT OF CARE - 11/17/2024 8:24 AM GRANTS SPECIALIST Order information only. Exam was auto-finalized. Michi Mckeon MD NM ORDERABLES Final Result [facility] POINT OF CARE CLIA # [id number] [place] [address] * ECHOCARDIOGRAM W/ CONTRAST AGENT (11/16/2024 4:48 PM GRANTS SPECIALIST) EJECTION FRACTION 60 INTERFACE SYSTEM 11/16/2024 4:19 PM GRANTS SPECIALIST Narrative INTERFACE SYSTEM - 11/16/2024 10:08 PM GRANTS SPECIALIST Transthoracic Echocardiogram Patient: Jc De Leon Study ID: [id number] Gender: M : 1960 Age: 64 Race: HUNTER Height 182.9cm Study Date: 11/16/2024 Weight: 92.1kg Access. #: [id number] BP: 133 / 75 *Referring Physician:Miracle Crane *Ordering Physician:Miracle Crane *Hoisting Laborer:* Nishant Cordoba RDCS,[facility] toppiece cutter: Nurse: Indications: Dyspnea. Syncope / Near syncope. STUDY CONCLUSIONS: SUMMARY: - Left ventricle: The cavity size was normal. Wall thickness was increased in a pattern of mild LVH. Global systolic function is normal. For Epic reporting: the left ventricular ejection fraction is 60% . - Mitral valve: Mild regurgitation. - Left atrium: The atrium is moderately dilated. - Right ventricle: The cavity size is normal. Systolic function is normal. - Tricuspid valve: Mild regurgitation. - Pulmonic valve: Mild regurgitation. - Pulmonary arteries: Systolic pressure was mildly increased. The peak systolic pressure is 46mm Hg. Cardiac Anatomy: LEFT VENTRICLE: The cavity size was normal. Wall thickness was increased in a pattern of mild LVH. Global systolic function is normal. For Epic reporting: the left ventricular ejection fraction is 60% . AORTIC VALVE: Trileaflet. The leaflets are mildly thickened and mildly calcified. No significant regurgitation. The mean systolic gradient is 6mm Hg. The peak systolic gradient is 11mm Hg. The LVOT to aortic valve VTI ratio is 0.69. The valve area is 2.6cm^2. The ratio of LVOT to aortic valve peak velocity is 0.7. AORTA: Aortic root: The root is normal-sized. MITRAL VALVE: Structurally normal valve. Mild regurgitation. The peak diastolic gradient is 4mm Hg. LEFT ATRIUM: The atrium is moderately dilated. RIGHT VENTRICLE: The cavity size is normal. Systolic function is normal. PULMONIC VALVE: Structurally normal valve. Mild regurgitation. TRICUSPID VALVE: Structurally normal valve. Mild regurgitation. PULMONARY ARTERY: Systolic pressure was mildly increased. RIGHT ATRIUM: The atrium was normal in size. SYSTEMIC VEINS: Inferior vena cava: The IVC is normal-sized. PERICARDIUM: There is no pericardial effusion. Measurements Left ventricle Value Ref BRANT, LAX (L) 3.4 cm 4.2 - 5.8 BRANT/bsa, LAX (L) 1.6 cm/m^2 2.2 - 3.0 IVS, ED (H) 1.2 cm 0.6 - 1.0 PW, ED (H) 1.2 cm 0.6 - 1.0 EDV, 2-p (N) 119 ml 62 - 150 ESV, 2-p (N) 45 ml 21 - 61 EF, 2-p (N) 62 % 52 - 72 SV, 2-p 74 ml --------- SV/bsa, 2-p 34.6 ml/m^2 --------- E', lat shirley, TDI (N) 12.1 cm/sec >=10.0 E/e', lat shirley, TDI (N) 9 <=13 E', med shirley, TDI (N) 8.4 cm/sec >=7.0 E/e', med shirley, TDI 12 --------- E', avg, TDI 10.2 cm/sec --------- E/e', avg, TDI (N) 10 <=14 LVOT Value Ref Diam, S 2.2 cm --------- Area 3.8 cm^2 --------- Peak jon, S 1.17 m/sec --------- VTI, S 18.4 cm --------- Peak grad, S 5 mm Hg --------- Right ventricle Value Ref BRANT minor ax, A4C base (H) 4.8 cm 2.5 - 4.1 BRANT minor ax, A4C mid (H) 3.9 cm 1.9 - 3.5 BRANT major ax, A4C (H) 8.7 cm 5.9 - 8.3 TAPSE, MM (L) 1.4 cm >=1.7 Pressure, S 46 mm Hg --------- S' lateral (N) 15.2 cm/sec >=9.5 Left atrium Value Ref AP dim, ES (H) 5.0 cm 3.0 - 4.0 AP dim index, ES (N) 2.3 cm/m^2 1.5 - 2.3 SI dim, A4C 6.3 cm --------- Area ES, A4C (H) 29 cm^2 <=20 Area/bsa ES, A4C 13.36 cm^2/m^2 --------- SI dim, A2C 6.7 cm --------- SI dim, shorter 6.3 cm --------- Vol, ES, 1-p A4C (H) 109 ml 18 - 58 Vol/bsa, ES, 1-p A4C (H) 51 ml/m^2 12 - 37 Vol, ES, 1-p A2C (H) 100 ml 18 - 58 Vol/bsa, ES, 1-p A2C (H) 47 ml/m^2 11 - 43 Vol, ES, 2-p 107 ml --------- Vol/bsa, ES, 2-p (H) 50 ml/m^2 16 - 34 LA/Ao root ratio 1.43 --------- Right atrium Value Ref SI dim, ES, A4C (H) 6.1 cm 3.4 - 5.3 SI dim/bsa, ES, A4C (N) 2.9 cm/m^2 1.8 - 3.0 Area, ES, A4C (H) 22 cm^2 10 - 18 Vol, ES, 1-p A4C 66 ml --------- Vol/bsa, ES, 1-p A4C (N) 31 ml/m^2 11 - 39 Aortic valve Value Ref Peak v, S 1.7 m/sec --------- Mean v, S 1.11 m/sec --------- VTI, S 26.8 cm --------- Mean grad, S 6 mm Hg --------- Peak grad, S 11 mm Hg --------- LVOT/AV, VTI ratio 0.69 --------- VICENTE, VTI 2.6 cm^2 --------- VICENTE/bsa, VTI 1.22 cm^2/m^2 --------- LVOT/AV, Vpeak ratio 0.7 --------- VICENTE, Vmax 2.3 cm^2 --------- VICENTE/bsa, Vmax 1.07 cm^2/m^2 --------- Mitral valve Value Ref Peak E 1.03 m/sec --------- Decel time 211 ms --------- Peak grad, D 4 mm Hg --------- Pulmonic valve Value Ref Peak v, S 1.06 m/sec --------- Accel time 113 ms --------- Peak grad, S 4 mm Hg --------- Tricuspid valve Value Ref Peak E 0.7 m/sec --------- Aortic root Value Ref Root diam, 3.5 cm --------- Ascending aorta Value Ref AAo AP diam, S 3.8 cm --------- AAo AP diam/bsa, S 1.8 cm/m^2 --------- Pulmonary artery Value Ref Pressure, S 46 mm Hg --------- Systemic veins Value Ref Estimated RA pressure 15 mm Hg --------- Legend: (L) and (H) bernardo values outside specified reference range. (N) pillai values inside specified reference range. Procedure data: [facility] Comparison was made to the study of 04/22/2024. Study status: Routine. Procedure information: A transthoracic echocardiogram was performed. Image quality was technically difficult, The study was technically limited due to poor acoustic window availability. Scanning was performed from the parasternal, apical, and subcostal acoustic windows. Intravenous contrast (Definity) was administered to enhance endocardial border detection that was not seen in two consecutive segments due to suboptimal baseline images and opacify the LV. Transthoracic echocardiogram. Complete 2D, complete spectral Doppler, and color Doppler. Birthdate: Patient birthdate: 1960. Age: Patient is 64year(s) old. Sex: gender: male. Height: 182.9cm. 72in. Weight: 92.1kg. 203lb. Body mass index: 27.5kg/m^2. Body surface area: 2.14m^2. Heart rate: 84bpm. Blood pressure: 133/75 Patient status: Inpatient. Study date: Study date: 11/16/2024. Study time: 04:19 PM. Location: Bedside. Prepared and Electronically Authenticated Michi Mckeon [id number]:49 Procedure Note Michi Mckeon MD - 11/16/2024 Transthoracic Echocardiogram Patient: Jc De Leon Study ID: [id number] Gender: M : 1960 Age: 64 Race: HUNTER Height 182.9cm Study Date: 11/16/2024 Weight: 92.1kg Access. #: [id number] BP: 133 / 75 *Referring Physician:* Miracle Horne *Ordering Physician:Miracle Crane *Hoisting Laborer:José Antonio Cordoba RDCS,[facility] toppiece cutter: Nurse: Indications: Dyspnea. Syncope / Near syncope. STUDY CONCLUSIONS: SUMMARY: - Left ventricle: The cavity size was normal. Wall thickness was increasedin a pattern of mild LVH. Global systolic function is normal. For Epic reporting: the left ventricular ejection fraction is 60% . - Mitral valve: Mild regurgitation. - Left atrium: The atrium is moderately dilated. - Right ventricle: The cavity size is normal. Systolic function isnormal. - Tricuspid valve: Mild regurgitation. - Pulmonic valve: Mild regurgitation. - Pulmonary arteries: Systolic pressure was mildly increased. The peak systolic pressure is 46mm Hg. Cardiac Anatomy: LEFT VENTRICLE: The cavity size was normal. Wall thickness was increasedin a pattern of mild LVH. Global systolic function is normal. For Epicreporting: the left ventricular ejection fraction is 60% . AORTIC VALVE: Trileaflet. The leaflets are mildly thickened and mildly calcified. No significant regurgitation. The mean systolic gradient is6mm Hg. The peak systolic gradient is 11mm Hg. The LVOT to aortic valve VTIratio is 0.69. The valve area is 2.6cm^2. The ratio of LVOT to aortic valvepeak velocity is 0.7. AORTA: Aortic root: The root is normal-sized. MITRAL VALVE: Structurally normal valve. Mild regurgitation. Thepeak diastolic gradient is 4mm Hg. LEFT ATRIUM: The atrium is moderately dilated. RIGHT VENTRICLE: The cavity size is normal. Systolic function isnormal. PULMONIC VALVE: Structurally normal valve. Mild regurgitation. TRICUSPID VALVE: Structurally normal valve. Mild regurgitation. PULMONARY ARTERY: Systolic pressure was mildly increased. RIGHT ATRIUM: The atrium was normal in size. SYSTEMIC VEINS: Inferior vena cava: The IVC is normal-sized. PERICARDIUM: There is no pericardial effusion. Measurements Left ventricle Value Ref BRANT, LAX (L) 3.4 cm 4.2 - 5.8 BRANT/bsa, LAX (L) 1.6 cm/m^2 2.2 - 3.0 IVS, ED (H) 1.2 cm 0.6 - 1.0 PW, ED (H) 1.2 cm 0.6 - 1.0 EDV, 2-p (N) 119 ml 62 - 150 ESV, 2-p (N) 45 ml 21 - 61 EF, 2-p (N) 62 % 52 - 72 SV, 2-p 74 ml --------- SV/bsa, 2-p 34.6 ml/m^2 --------- E', lat shirley, TDI (N) 12.1 cm/sec >=10.0 E/e', lat shirley, TDI (N) 9 <=13 E', med shirley, TDI (N) 8.4 cm/sec >=7.0 E/e', med shirley, TDI 12 --------- E', avg, TDI 10.2 cm/sec --------- E/e', avg, TDI (N) 10 <=14 LVOT Value Ref Diam, S 2.2 cm --------- Area 3.8 cm^2 --------- Peak jon, S 1.17 m/sec --------- VTI, S 18.4 cm --------- Peak grad, S 5 mm Hg --------- Right ventricle Value Ref BRANT minor ax, A4C base (H) 4.8 cm 2.5 - 4.1 BRANT minor ax, A4C mid (H) 3.9 cm 1.9 - 3.5 BRANT major ax, A4C (H) 8.7 cm 5.9 - 8.3 TAPSE, MM (L) 1.4 cm >=1.7 Pressure, S 46 mm Hg --------- S' lateral (N) 15.2 cm/sec >=9.5 Left atrium Value Ref AP dim, ES (H) 5.0 cm 3.0 - 4.0 AP dim index, ES (N) 2.3 cm/m^2 1.5 - 2.3 SI dim, A4C 6.3 cm --------- Area ES, A4C (H) 29 cm^2 <=20 Area/bsa ES, A4C 13.36 cm^2/m^2 --------- SI dim, A2C 6.7 cm --------- SI dim, shorter 6.3 cm --------- Vol, ES, 1-p A4C (H) 109 ml 18 - 58 Vol/bsa, ES, 1-p A4C (H) 51 ml/m^2 12 - 37 Vol, ES, 1-p A2C (H) 100 ml 18 - 58 Vol/bsa, ES, 1-p A2C (H) 47 ml/m^2 11 - 43 Vol, ES, 2-p 107 ml --------- Vol/bsa, ES, 2-p (H) 50 ml/m^2 16 - 34 LA/Ao root ratio 1.43 --------- Right atrium Value Ref SI dim, ES, A4C (H) 6.1 cm 3.4 - 5.3 SI dim/bsa, ES, A4C (N) 2.9 cm/m^2 1.8 - 3.0 Area, ES, A4C (H) 22 cm^2 10 - 18 Vol, ES, 1-p A4C 66 ml --------- Vol/bsa, ES, 1-p A4C (N) 31 ml/m^2 11 - 39 Aortic valve Value Ref Peak v, S 1.7 m/sec --------- Mean v, S 1.11 m/sec --------- VTI, S 26.8 cm --------- Mean grad, S 6 mm Hg --------- Peak grad, S 11 mm Hg --------- LVOT/AV, VTI ratio 0.69 --------- VICENTE, VTI 2.6 cm^2 --------- VICENTE/bsa, VTI 1.22 cm^2/m^2 --------- LVOT/AV, Vpeak ratio 0.7 --------- VICENTE, Vmax 2.3 cm^2 --------- VICENTE/bsa, Vmax 1.07 cm^2/m^2 --------- Mitral valve Value Ref Peak E 1.03 m/sec --------- Decel time 211 ms --------- Peak grad, D 4 mm Hg --------- Pulmonic valve Value Ref Peak v, S 1.06 m/sec --------- Accel time 113 ms --------- Peak grad, S 4 mm Hg --------- Tricuspid valve Value Ref Peak E 0.7 m/sec --------- Aortic root Value Ref Root diam, 3.5 cm --------- Ascending aorta Value Ref AAo AP diam, S 3.8 cm --------- AAo AP diam/bsa, S 1.8 cm/m^2 --------- Pulmonary artery Value Ref Pressure, S 46 mm Hg --------- Systemic veins Value Ref Estimated RA pressure 15 mm Hg --------- Legend: (L) and (H) bernardo values outside specified reference range. (N) pillai values inside specified reference range. Procedure data: [facility] Comparison was made to the study of 04/22/2024. Studystatus: Routine. Procedure information: A transthoracic echocardiogram was performed. Image quality was technically difficult, The study wastechnically limited due to poor acoustic window availability. Scanning was performedfrom the parasternal, apical, and subcostal acoustic windows. Intravenouscontrast (Definity) was administered to enhance endocardial border detection thatwas not seen in two consecutive segments due to suboptimal baseline imagesand opacify the LV. Transthoracic echocardiogram. Complete 2D,complete spectral Doppler, and color Doppler. Birthdate: Patient birthdate: 1960. Age: Patient is 64year(s) old. Sex: gender: male. Height: 182.9cm. 72in. Weight: 92.1kg. 203lb. Body mass index: 27.5kg/m^2. Body surface area: 2.14m^2. Heart rate: 84bpm.Blood pressure: 133/75 Patient status: Inpatient. Study date: Studydate: 11/16/2024. Study time: 04:19 PM. Location: Bedside. Prepared and Electronically Authenticated Michi Mckeon [id number]:49 Miracle Horne NP US ORDERABLES Final Result INTERFACE SYSTEM Refer to clinic/hospital department * (ABNORMAL) LIPID PANEL (11/16/2024 5:09 AM GRANTS SPECIALIST) [facility] Signature CHOLESTEROL 75 <200 mg/dL 11/16/2024 3:58 PM [facility] [employer] [facility] TRIGLYCERIDE 98 <150 mg/dL 11/16/2024 3:58 PM [facility] HDL 33(L) 40 - 59 mg/dL 11/16/2024 3:58 PM [facility] [employer] [facility] LDL CALCULATED 22 <100 mg/dL 11/16/2024 3:58 PM [facility] [employer] [facility] NON-HDL CHOLESTEROL 42 <130 mg/dL 11/16/2024 3:58 PM [facility] [employer] [facility] Blood Venipuncture / Unknown 11/16/2024 5:09 AM GRANTS SPECIALIST 11/16/2024 6:29 AM GRANTS SPECIALIST [facility] - 11/16/2024 3:58 PM GRANTS SPECIALIST TOTAL CHOLESTEROL mg/dL Desirable <200 Borderline high 200-239 High >=240 TRIGLYCERIDES mg/dL Normal <150 Borderline high 150-199 High 200-499 Very high >=500 HDL CHOLESTEROL mg/dL Low <40 Normal 40-59 Desirable >=60 NON HDL CHOLESTEROL mg/dL Optimal <130 Near Optimal 130-159 Borderline High 160-189 Very High >=190 CALCULATED LDL mg/dL LDL <70, OPTIMAL if have Atherosclerotic cardiovascular disease (ASCVD) or intermediate or higher (>7.5%) 10 year risk of ASCVD including most adults with diabetes. LDL <100, Optimal in adult patients with low (<7.5%) 10 year ASCVD risk LDL 100-160, Suboptimal LDL >160, High LDL >190, Very high ATPIII Guidelines Reference Ranges for Lipid Panels (NCEP/AMA) . us Brant Leonard MD CHEMISTRY ORDERABLES Final Res ult [facility]# [id number] [place] [address] * CTA ABD AORTA BI ILIOFEM W AND/OR WO (11/15/2024 6:53 PM GRANTS SPECIALIST) Anatomical Region Laterality Modality Abdomen Computed Tomogra phy 11/15/2024 6:23 PM GRANTS SPECIALIST Impressions 11/15/2024 8:13 PM GRANTS SPECIALIST IMPRESSION: 1. Extensive multifocal atherosclerotic disease as detailed above, including unchanged 5.3 cm fusiform infrarenal abdominal aortic aneurysm, high-grade stenosis of the right common femoral artery, high-grade stenosis of the distal right superficial femoral artery, and high-grade stenosis with potential short segment occlusion of right popliteal artery. Extensive atherosclerosis is present in the right infrapopliteal arteries, not optimally evaluated as above, with suspected occlusion of the right dorsalis pedis artery. The right posterior tibial artery appears occluded shortly after the origin, with distal flow via collateral vessel. There is moderate multifocal stenosis of the left superficial femoral artery, and high-grade stenosis of the left popliteal artery. Extensive atherosclerosis of the left infrapopliteal vessels, not optimally evaluated as above. The left posterior tibial artery appears occluded shortly after origin, with distal flow via collateral vessel. 2. Bilateral adrenal nodules, suspicious for metastatic disease. 3. Absent right kidney. DICTATION LOCATION: Location 7 [facility] 11/15/2024 8:13 PM [facility] EXAMINATION: CTA ABD AORTA BI ILIOFEM W AND/OR WO DATE: 11/15/2024 6:53 PM HISTORY: Claudication or leg ischemia TECHNIQUE: CT angiography of the abdomen, pelvis, and lower extremities was performed prior to and following the uneventful administration of contrast (IOPAMIDOL 76 % INTRAVENOUS SOLUTION (MULTI-DOSE BULK PACK) Given:110 mL) according to standard protocol. The examination was performed with the adjustment of mA according to the patient size and/or the use of Iterative Reconstruction Technique. Maximum intensity projection postprocessing was performed by the technologist and sent to the workstation for review. COMPARISON: Outside institution CT chest abdomen pelvis dated 11/09/2024 FINDINGS: Abdominal aorta: There is multifocal atherosclerosis. Unchanged 5.3 cm fusiform infrarenal abdominal aortic aneurysm. Celiac artery: Atherosclerotic but patent without significant focal stenosis. Superior mesenteric artery: Atherosclerosis, with mild focal stenosis at the midportion. Right renal artery: Occluded. Left renal artery: Atherosclerotic with low-grade stenosis at the origin. Inferior mesenteric artery: Atherosclerotic with mild multifocal stenoses. Right common iliac artery: Atherosclerotic with mild multifocal stenoses. Right internal iliac artery: Atherosclerotic with moderate to severe multifocal stenoses. Right external iliac artery: Atherosclerotic with mild multifocal stenoses. Right common femoral artery: Severely atherosclerotic with high-grade stenosis. Right profunda femoris artery: Severely atherosclerotic at the origin with likely at least moderate stenosis at the origin. Patchy low-grade stenosis is seen more distally. Right superficial femoral artery: Atherosclerotic with mixed mild and moderate multifocal stenoses, along with focal high-grade stenosis at the far distal margin just proximal to the popliteal artery.. Right popliteal artery: Atherosclerotic with multifocal moderate stenoses, along with high-grade stenosis distally with potentially short segment occlusion Right anterior tibial artery: Heavily calcified and not optimally evaluated due to small size and calcification. There is some flow is visualized proximally and likely at the midportion, and possibly at the distal portion, however not well evaluated. This vessel crosses the ankle and supplies the dorsalis pedis artery, with the dorsalis pedis artery is not well evaluated due to calcification and small size, however with at least some areas of occlusion suspected.. Right tibioperoneal trunk: Heavily calcified and not well evaluated due to calcification and small size. Likely moderate stenosis. Right posterior tibial artery: Heavily calcified and not well evaluated due to small size and calcification. There is occlusion shortly after the origin flow is seen distally related to collateral vessel. This vessel crosses the ankle and supplies the plantar artery. There is multifocal atherosclerosis in the plantar artery, not well evaluated due to small size, but likely patent. Right peroneal artery: Not well evaluated due to small size and areas of patchy calcification. There is likely at least low-grade stenosis proximally. The vessel appears patent at the mid and distal portion. Left common iliac artery: Atherosclerotic with mild multifocal stenoses. Left internal iliac artery: Atherosclerotic with severe multifocal stenoses. Left external iliac artery: Atherosclerotic with mild multifocal stenoses. Left common femoral artery: Heavily calcified with likely low to intermediate grade stenosis. Left profunda femoris artery: Likely moderate stenosis at the origin, with intermediate grade stenosis proximally. Left superficial femoral artery: Heavily calcified with multifocal atherosclerosis. Multifocal stenoses, which appear moderate proximal and at the midportion. Left popliteal artery: Extensive atherosclerosis. Mixed moderate and severe stenoses at the mid to distal portion. Left anterior tibial artery: Not well evaluated due to small size and heavy calcification. The vessel appears patent at its most proximal aspect, with at least some flow suggested throughout the proximal, mid, and distal portion. This vessel supplies the dorsalis pedis artery, which appears patent. Left tibioperoneal trunk: Heavily calcified, likely high-grade stenosis proximally and distally. Left posterior tibial artery: Not well evaluated due to small size and heavy calcification. The vessel appears likely occluded shortly after the origin, with flow distally which appears to be related to collateral vessel. The plantar artery is not well evaluated due to small size and heavy calcification. Left peroneal artery: Multifocal atherosclerosis. Likely at least low-grade stenosis proximally. The vessel appears patent throughout its length. Hepatobiliary: The liver has a grossly unremarkable contour. There is cholelithiasis. There is no biliary dilatation. Pancreas and Spleen: Normal. Kidneys, Adrenals, and Ureters: The right kidney is absent. There is no left hydronephrosis. There is left renal cortical thinning. There is 2.8 cm left adrenal nodule and 1.3 cm right adrenal nodule, not significantly changed. Bowel and mesentery: There is colonic diverticulosis. Bilateral fatty inguinal hernias are present. Periumbilical hernia repair is suggested. Pelvic structures: There is mild prostatic enlargement. Musculoskeletal: Bilateral great toe wounds are suggested, right side greater than left. Procedure Note Chong Templeton MD - 11/15/2024 EXAMINATION: CTA ABD AORTA BI ILIOFEM W AND/OR WO DATE: 11/15/2024 6:53 PM HISTORY: Claudication or leg ischemia TECHNIQUE: CT angiography of the abdomen, pelvis, and lower extremities was performed prior to and following the uneventful administration of contrast (IOPAMIDOL 76 % INTRAVENOUS SOLUTION (MULTI-DOSE BULK PACK) Given:110 mL) according to standard protocol. The examination was performed with the adjustment of mA according to the patient size and/or the use of Iterative Reconstruction Technique. Maximum intensity projection postprocessing was performed by the technologist and sent to the workstation for review. COMPARISON: Outside institution CT chest abdomen pelvis dated 11/09/2024 FINDINGS: Abdominal aorta: There is multifocal atherosclerosis. Unchanged 5.3 cm fusiform infrarenal abdominal aortic aneurysm. Celiac artery: Atherosclerotic but patent without significant focal stenosis. Superior mesenteric artery: Atherosclerosis, with mild focal stenosis at the midportion. Right renal artery: Occluded. Left renal artery: Atherosclerotic with low-grade stenosis at the origin. Inferior mesenteric artery: Atherosclerotic with mild multifocal stenoses. Right common iliac artery: Atherosclerotic with mild multifocal stenoses. Right internal iliac artery: Atherosclerotic with moderate to severe multifocal stenoses. Right external iliac artery: Atherosclerotic with mild multifocal stenoses. Right common femoral artery: Severely atherosclerotic with high-grade stenosis. Right profunda femoris artery: Severely atherosclerotic at the origin with likely at least moderate stenosis at the origin. Patchy low-grade stenosis is seen more distally. Right superficial femoral artery: Atherosclerotic with mixed mild and moderate multifocal stenoses, along with focal high-grade stenosis at the far distal margin just proximal to the popliteal artery.. Right popliteal artery: Atherosclerotic with multifocal moderate stenoses, along with high-grade stenosis distally with potentially short segment occlusion Right anterior tibial artery: Heavily calcified and not optimally evaluated due to small size and calcification. There is some flow is visualized proximally and likely at the midportion, and possibly at the distal portion, however not well evaluated. This vessel crosses the ankle and supplies the dorsalis pedis artery, with the dorsalis pedis artery is not well evaluated due to calcification and small size, however with at least some areas of occlusion suspected.. Right tibioperoneal trunk: Heavily calcified and not well evaluated due to calcification and small size. Likely moderate stenosis. Right posterior tibial artery: Heavily calcified and not well evaluated due to small size and calcification. There is occlusion shortly after the origin flow is seen distally related to collateral vessel. This vessel crosses the ankle and supplies the plantar artery. There is multifocal atherosclerosis in the plantar artery, not well evaluated due to small size, but likely patent. Right peroneal artery: Not well evaluated due to small size and areas of patchy calcification. There is likely at least low-grade stenosis proximally. The vessel appears patent at the mid and distal portion. Left common iliac artery: Atherosclerotic with mild multifocal stenoses. Left internal iliac artery: Atherosclerotic with severe multifocal stenoses. Left external iliac artery: Atherosclerotic with mild multifocal stenoses. Left common femoral artery: Heavily calcified with likely low to intermediate grade stenosis. Left profunda femoris artery: Likely moderate stenosis at the origin, with intermediate grade stenosis proximally. Left superficial femoral artery: Heavily calcified with multifocal atherosclerosis. Multifocal stenoses, which appear moderate proximal and at the midportion. Left popliteal artery: Extensive atherosclerosis. Mixed moderate and severe stenoses at the mid to distal portion. Left anterior tibial artery: Not well evaluated due to small size and heavy calcification. The vessel appears patent at its most proximal aspect, with at least some flow suggested throughout the proximal, mid, and distal portion. This vessel supplies the dorsalis pedis artery, which appears patent. Left tibioperoneal trunk: Heavily calcified, likely high-grade stenosis proximally and distally. Left posterior tibial artery: Not well evaluated due to small size and heavy calcification. The vessel appears likely occluded shortly after the origin, with flow distally which appears to be related to collateral vessel. The plantar artery is not well evaluated due to small size and heavy calcification. Left peroneal artery: Multifocal atherosclerosis. Likely at least low-grade stenosis proximally. The vessel appears patent throughout its length. Hepatobiliary: The liver has a grossly unremarkable contour. There is cholelithiasis. There is no biliary dilatation. Pancreas and Spleen: Normal. Kidneys, Adrenals, and Ureters: The right kidney is absent. There is no left hydronephrosis. There is left renal cortical thinning. There is 2.8 cm left adrenal nodule and 1.3 cm right adrenal nodule, not significantly changed. Bowel and mesentery: There is colonic diverticulosis. Bilateral fatty inguinal hernias are present. Periumbilical hernia repair is suggested. Pelvic structures: There is mild prostatic enlargement. Musculoskeletal: Bilateral great toe wounds are suggested, right side greater than left. IMPRESSION: 1. Extensive multifocal atherosclerotic disease as detailed above, including unchanged 5.3 cm fusiform infrarenal abdominal aortic aneurysm, high-grade stenosis of the right common femoral artery, high-grade stenosis of the distal right superficial femoral artery, and high-grade stenosis with potential short segment occlusion of right popliteal artery. Extensive atherosclerosis is present in the right infrapopliteal arteries, not optimally evaluated as above, with suspected occlusion of the right dorsalis pedis artery. The right posterior tibial artery appears occluded shortly after the origin, with distal flow via collateral vessel. There is moderate multifocal stenosis of the left superficial femoral artery, and high-grade stenosis of the left popliteal artery. Extensive atherosclerosis of the left infrapopliteal vessels, not optimally evaluated as above. The left posterior tibial artery appears occluded shortly after origin, with distal flow via collateral vessel. 2. Bilateral adrenal nodules, suspicious for metastatic disease. 3. Absent right kidney. DICTATION LOCATION: [address] Shanika Bouchra Benitezakhil [facility] CT ORDERABLES Selin l Result * CTA CHEST W AND/OR WO CONTRAST (11/15/2024 6:51 PM [facility]) Anatomical Region Laterality Modality Chest Computed Tomogra phy 11/15/2024 6:29 PM [facility] Impressions 11/15/2024 7:40 PM [facility] IMPRESSION: 1. No evidence of pulmonary embolism. 2. Similar appearance of bilateral pulmonary nodules, most consistent with metastatic disease. Redemonstration of enlarged aortopulmonary lymph node. Increased subcarinal lymph node. 3. Small bilateral pleural effusions. 4. Unchanged lucent lesion at the T12 inferior endplate, most suggestive of metastatic focus. DICTATION LOCATION: [address] Narrative 11/15/2024 7:40 PM [facility] EXAMINATION: CTA CHEST W AND/OR WO CONTRAST DATE: 11/15/2024 6:51 PM HISTORY: Pulmonary embolism (PE) suspected, high prob TECHNIQUE: CTA of the chest was performed following the uneventful administration of contrast (IOPAMIDOL 76 % INTRAVENOUS SOLUTION (MULTI-DOSE BULK PACK) Given:70 mL) according to pulmonary embolism protocol. The examination was performed with the adjustment of mA according to the patient size and/or the use of Iterative Reconstruction Technique. Maximum intensity projection postprocessing was performed by the technologist and sent to the workstation for review. COMPARISON: Outside institution CT chest abdomen pelvis dated 11/09/2024 FINDINGS: Lower neck and axillae: No acute findings. Mediastinum and debbie: There is cardiac enlargement. There is patchy atherosclerotic calcification. Coronary artery calcifications are present. There are no filling defects in the pulmonary arteries to suggest pulmonary embolism. There is unchanged enlarged 1.5 cm short axis aortopulmonary lymph node. There is increased 1.3 cm short axis subcarinal lymph node, previously 0.7 cm. Pulmonary: There are small bilateral pleural effusions with mild adjacent atelectasis. There is unchanged 8 mm pleural-based nodule in the peripheral aspect of the left upper lobe. Some detail is obscured due to motion artifact. 5 mm nodule seen peripherally in the left lower lobe appears similar to prior, but is somewhat obscured on the current exam. 1 cm nodule posteriorly in the right lower lobe is also partially obscured on the current exam, but appears overall unchanged. Additional 3 mm nodule again seen nearby. Upper abdomen: Partially visualized bilateral adrenal nodularity. Musculoskeletal: There is diffuse idiopathic skeletal hyperostosis of the thoracic spine. There is unchanged 1.3 cm lucent lesion along the T12 inferior endplate. Procedure Note Chong Templeton MD - 11/15/2024 EXAMINATION: CTA CHEST W AND/OR WO CONTRAST DATE: 11/15/2024 6:51 PM HISTORY: Pulmonary embolism (PE) suspected, high prob TECHNIQUE: CTA of the chest was performed following the uneventful administration of contrast (IOPAMIDOL 76 % INTRAVENOUS SOLUTION (MULTI-DOSE BULK PACK) Given:70 mL) according to pulmonary embolism protocol. The examination was performed with the adjustment of mA according to the patient size and/or the use of Iterative Reconstruction Technique. Maximum intensity projection postprocessing was performed by the technologist and sent to the workstation for review. COMPARISON: Outside institution CT chest abdomen pelvis dated 11/09/2024 FINDINGS: Lower neck and axillae: No acute findings. Mediastinum and debbie: There is cardiac enlargement. There is patchy atherosclerotic calcification. Coronary artery calcifications are present. There are no filling defects in the pulmonary arteries to suggest pulmonary embolism. There is unchanged enlarged 1.5 cm short axis aortopulmonary lymph node. There is increased 1.3 cm short axis subcarinal lymph node, previously 0.7 cm. Pulmonary: There are small bilateral pleural effusions with mild adjacent atelectasis. There is unchanged 8 mm pleural-based nodule in the peripheral aspect of the left upper lobe. Some detail is obscured due to motion artifact. 5 mm nodule seen peripherally in the left lower lobe appears similar to prior, but is somewhat obscured on the current exam. 1 cm nodule posteriorly in the right lower lobe is also partially obscured on the current exam, but appears overall unchanged. Additional 3 mm nodule again seen nearby. Upper abdomen: Partially visualized bilateral adrenal nodularity. Musculoskeletal: There is diffuse idiopathic skeletal hyperostosis of the thoracic spine. There is unchanged 1.3 cm lucent lesion along the T12 inferior endplate. IMPRESSION: 1. No evidence of pulmonary embolism. 2. Similar appearance of bilateral pulmonary nodules, most consistent with metastatic disease. Redemonstration of enlarged aortopulmonary lymph node. Increased subcarinal lymph node. 3. Small bilateral pleural effusions. 4. Unchanged lucent lesion at the T12 inferior endplate, most suggestive of metastatic focus. DICTATION LOCATION: Location [address] [place] [address] ORDERABLES Final Result * BLOOD CULTURE (11/15/2024 3:23 PM [facility]) Only the most recent of2 resultswithin the time period is included. BLOOD CULTURE No growth 11/20/2024 9:03 PM [facility]IST [facility] Blood (Peripheral) Venipuncture / Unknown 11/15/2024 3:23 PM [facility]IST 11/15/2024 3:51 PM [facility]IST Miracle Horne NP MICROBIOLOGY - GENERAL ORDERABL ES Final Result [id number] [address] [place] [address] * HEPATITIS B SURFACE ANTIGEN (11/15/2024 1:48 AM [facility]IST) HEPATITIS B SURFACE AG NON-REACT THOMAS Non-react thomas 11/15/2024 6:48 PM [facility]IST [facility] [employer] [facility] Comment:A non-reactive test result does not exclude the possibility of exposure to or infection with hepatitis B. Blood Venipuncture / Unknown 11/15/2024 1:48 AM [facility]IST 11/15/2024 1:57 AM [facility]IST us Romel Bangura MD CHEMISTRY ORDERABLES Final Resul t [facility] [employer] [facility] CLIA# [id number] [place] [address] * US ANKLE PRESSURE INDEX (11/14/2024 4:50 PM [facility]IST) Anatomical Region Laterality Modality Lower Extremity Ultrasound 11/14/2024 4:50 PM [facility]IST Impressions 11/14/2024 5:09 PM [facility]IST IMPRESSION: 1. High-grade right lower extremity arterial stenosis. 2. Borderline normal left ankle brachial index of 0.9. DICTATION LOCATION: Location 7 - [facility] Narrative 11/14/2024 5:09 PM [facility]IST EXAMINATION: US ANKLE PRESSURE INDEX DATE: 11/14/2024 4:50 PM HISTORY: Claudication and toe wounds FINDINGS: Peak left brachial systolic pressure is 154 mmHg. Limitations of patient condition mandated obtaining waveforms in each fourth toe rather than the great toes. The right fourth toe waveform is blunted. The left is normal. Posterior tibial and dorsalis pedis waveforms are blunted on the right and nearly normal on the left. Ankle-brachial indices are 0.53 right and 0.9 left. Procedure Note Brody Perez MD - 11/14/2024 EXAMINATION: US ANKLE PRESSURE INDEX DATE: 11/14/2024 4:50 PM HISTORY: Claudication and toe wounds FINDINGS: Peak left brachial systolic pressure is 154 mmHg. Limitations of patient condition mandated obtaining waveforms in each fourth toe rather than the great toes. The right fourth toe waveform is blunted. The left is normal. Posterior tibial and dorsalis pedis waveforms are blunted on the right and nearly normal on the left. Ankle-brachial indices are 0.53 right and 0.9 left. IMPRESSION: 1. High-grade right lower extremity arterial stenosis. 2. Borderline normal left ankle brachial index of 0.9. DICTATION LOCATION: [address] us Patricia Quezada NP US ORDERABLES Final Res ult * US VENOUS DOPPLER LEG BILATERAL (11/14/2024 4:48 PM [facility]) Anatomical Region Laterality Modality Lower Extremity Ultrasound 11/14/2024 4:49 PM [facility]IST Impressions 11/14/2024 5:07 PM [facility] IMPRESSION: Normal. DICTATION LOCATION: [address] Narrative 11/14/2024 5:07 PM [facility]IST EXAMINATION: US VENOUS DOPPLER LEG BILATERAL DATE: 11/14/2024 4:48 PM HISTORY: Bilateral foot wounds FINDINGS: Color Doppler and spectral waveform analysis is performed. Visualized portions of bilateral common femoral, femoral, profunda femoral, proximal greater saphenous, popliteal, and deep calf veins exhibit normal respiratory phasicity, compressibility, and augmentation without metz scale or color Doppler evidence of DVT. Procedure Note Brody Perez MD - 11/14/2024 EXAMINATION: US VENOUS DOPPLER LEG BILATERAL DATE: 11/14/2024 4:48 PM HISTORY: Bilateral foot wounds FINDINGS: Color Doppler and spectral waveform analysis is performed. Visualized portions of bilateral common femoral, femoral, profunda femoral, proximal greater saphenous, popliteal, and deep calf veins exhibit normal respiratory phasicity, compressibility, and augmentation without metz scale or color Doppler evidence of DVT. IMPRESSION: Normal. DICTATION LOCATION: Location [address] [place] [address] us Joseph Yee NP US ORDERABLES Final Result * MRI FOOT WO CONTRAST LEFT (11/14/2024 3:11 PM [facility]IST) Anatomical Region Laterality Modality Ankle / Foot Magnetic Resonan ce 11/14/2024 3:11 PM [facility] Impressions 11/14/2024 3:37 PM [facility] IMPRESSION: 1. Wound at the distal 1st digit, with underlying bony signal alteration at the 1st distal phalangeal tuft, suggesting sequela of osteomyelitis, potentially with more chronic appearance, with partial acute component questioned. 2. Wound at the 3rd digit with underlying bony signal alteration at the distal shaft and tuft of the 3rd distal phalanx, most consistent with localized osteomyelitis. DICTATION LOCATION: Location [address] [place] [address] 11/14/2024 3:37 PM [facility]IST EXAMINATION: MRI FOOT WO CONTRAST LEFT DATE: 11/14/2024 3:11 PM HISTORY: Foot swelling, diabetic, osteomyelitis suspected, xray done TECHNIQUE: MRI of the left foot was performed using multiple pulse sequences in multiple planes without contrast. COMPARISON: Outside MRI foot dated 11/10/2024, outside radiograph dated 11/09/2024 FINDINGS: There is redemonstration of bony fusion across the 1st metatarsophalangeal joint, with surrounding bony hypertrophic remodeling, merging with the medial hallux sesamoid. There is irregular wound along the distal/medial margin of the 1st digit, with underlying sharpening and remodeling at the distal tuft of the 1st distal phalanx, with subtle increased fluid sensitive signal at the distal tuft, along with some localized decreased T1 signal at the distal tuft, suggesting sequela of osteomyelitis. There is irregular wound at the 3rd digit, asymmetric toward the distal/dorsal aspect. There is underlying increased fluid sensitive signal within the distal shaft and tuft of the 3rd distal phalanx with subtle decreased T1 signal, suggestive of osteomyelitis. Subtle wound is questioned at the 4th digit without definite evidence of underlying osteomyelitis. No confluent soft tissue fluid collection appreciated. There is generalized muscular atrophy. Procedure Note Chong Templeton MD - 11/14/2024 EXAMINATION: MRI FOOT WO CONTRAST LEFT DATE: 11/14/2024 3:11 PM HISTORY: Foot swelling, diabetic, osteomyelitis suspected, xray done TECHNIQUE: MRI of the left foot was performed using multiple pulse sequences in multiple planes without contrast. COMPARISON: Outside MRI foot dated 11/10/2024, outside radiograph dated 11/09/2024 FINDINGS: There is redemonstration of bony fusion across the 1st metatarsophalangeal joint, with surrounding bony hypertrophic remodeling, merging with the medial hallux sesamoid. There is irregular wound along the distal/medial margin of the 1st digit, with underlying sharpening and remodeling at the distal tuft of the 1st distal phalanx, with subtle increased fluid sensitive signal at the distal tuft, along with some localized decreased T1 signal at the distal tuft, suggesting sequela of osteomyelitis. There is irregular wound at the 3rd digit, asymmetric toward the distal/dorsal aspect. There is underlying increased fluid sensitive signal within the distal shaft and tuft of the 3rd distal phalanx with subtle decreased T1 signal, suggestive of osteomyelitis. Subtle wound is questioned at the 4th digit without definite evidence of underlying osteomyelitis. No confluent soft tissue fluid collection appreciated. There is generalized muscular atrophy. IMPRESSION: 1. Wound at the distal 1st digit, with underlying bony signal alteration at the 1st distal phalangeal tuft, suggesting sequela of osteomyelitis, potentially with more chronic appearance, with partial acute component questioned. 2. Wound at the 3rd digit with underlying bony signal alteration at the distal shaft and tuft of the 3rd distal phalanx, most consistent with localized osteomyelitis. DICTATION LOCATION: Location [address] [place] [address] Joseph Yee NP MR ORDERABLES Final Result * MRI FOOT WO CONTRAST RIGHT (11/14/2024 2:47 PM GRANTS SPECIALIST) Anatomical Region Laterality Modality Ankle / Foot Magnetic Resonan ce 11/14/2024 2:48 PM [facility]S SPECIALIST Impressions 11/14/2024 3:14 PM [facility]S SPECIALIST IMPRESSION: First distal phalanx fractures are again noted. There is diffuse first distal phalangeal marrow edema and possibly soft tissue gas in the great toe. Osteomyelitis cannot be excluded in the setting of fracture but is highly suspected based on review of the 11/09/2024 outside radiographs. DICTATION LOCATION: Location [address] [place] [address] Narrative 11/14/2024 3:14 PM GRANTS SPECIALIST EXAMINATION: MRI FOOT WO CONTRAST RIGHT DATE: 11/14/2024 2:47 PM HISTORY: Foot swelling, diabetic, osteomyelitis suspected, xray done. Right great toe gangrene FINDINGS: Multiplanar magnetic resonance imaging of the right forefoot and midfoot is performed without contrast. Comparison is made with 11/09/2024 foot radiographs. First distal phalanx fractures and diffuse first distal phalanx marrow edema are observed. There may be soft tissue gas in the great toe. Second hammertoe deformity is present. 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 Musculotendinous structures are intact. Procedure Note Brody Perez MD - 11/14/2024 EXAMINATION: MRI FOOT WO CONTRAST RIGHT DATE: 11/14/2024 2:47 PM HISTORY: Foot swelling, diabetic, osteomyelitis suspected, xray done. Right great toe gangrene FINDINGS: Multiplanar magnetic resonance imaging of the right forefoot and midfoot is performed without contrast. Comparison is made with 11/09/2024 foot radiographs. First distal phalanx fractures and diffuse first distal phalanx marrow edema are observed. There may be soft tissue gas in the great toe. Second hammertoe deformity is present. 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 Musculotendinous structures are intact. IMPRESSION: First distal phalanx fractures are again noted. There is diffuse first distal phalangeal marrow edema and possibly soft tissue gas in the great toe. Osteomyelitis cannot be excluded in the setting of fracture but is highly suspected based on review of the 11/09/2024 outside radiographs. DICTATION LOCATION: Location [address] [place] [address] Joseph eYe NP MR ORDERABLES Final Result * HEMOGLOBIN A1C (11/14/2024 12:58 AM GRANTS SPECIALIST) HEMOGLOBIN A1C 5.4 <=5.6 % 11/14/2024 2:30 AM [facility]S SPECIALIST [facility] [employer] [facility] EST. AVG GLUCOSE, A1C 108 mg/dL 11/14/2024 2:30 AM [facility]S SPECIALIST [facility] [employer] [facility] Blood Venipuncture / Unknown 11/14/2024 12:58 AM GRANTS SPECIALIST 11/14/2024 2:12 AM [facility]S SPECIALIST Narrative [facility] [employer] [facility] - 11/14/2024 2:30 AM [facility]S SPECIALIST HGB A1C INTERPRETATION NORMAL: <5.7% PRE-DIABETES: 5.7 - 6.4% DIABETES: 6.5% OR GREATER Joseph Yee NP CHEMISTRY ORDERABLES Final Res ult [facility] [employer] [facility] CLIA# [id number] [place] [address] * (ABNORMAL) COMPREHENSIVE METABOLIC PANEL (11/14/2024 12:58 AM GRANTS SPECIALIST) [facility] Signature SODIUM 129(L) 136 - 145 mmol/L 11/14/2024 2:44 AM [facility] [employer] [facility] POTASSIUM 4.2 3.4 - 5.1 mmol/L 11/14/2024 2:44 AM [facility] CHLORIDE 91(L) 98 - 107 mmol/L 11/14/2024 2:44 AM [facility] [employer] [facility] CO2 25 22 - 29 mmol/L 11/14/2024 2:44 AM [facility] CALCIUM 9.3 8.6 - 10.4 mg/dL 11/14/2024 2:44 AM [facility] BUN 44(H) 6 - 20 mg/dL 11/14/2024 2:44 AM [facility] CREATININE 7.14(H) 0.67 - 1.17 mg/dL 11/14/2024 2:44 AM [facility] [employer] [facility] GLUCOSE 100(H) 74 - 99 mg/dL 11/14/2024 2:44 AM [facility] TOTAL PROTEIN 6.1(L) 6.3 - 8.7 g/dL 11/14/2024 2:44 AM [facility] ALBUMIN 3.1(L) 3.5 - 5.2 g/dL 11/14/2024 2:44 AM [facility] BILIRUBIN TOTAL <0.2(L) 0.2 - 1.1 mg/dL 11/14/2024 2:44 AM [facility] [employer] [facility] ALKALINE PHOSPHATASE 67 40 - 150 U/L 11/14/2024 2:44 AM [facility] [employer] [facility] AST 20 0 - 41 U/L 11/14/2024 2:44 AM [facility] ALT 17 0 - 41 U/L 11/14/2024 2:44 AM [facility] [employer] [facility] GFR 8(L) >=60 mL/min/1.7 3 sq meter 11/14/2024 2:44 AM [facility]ORAT[facility] Comment:eGFR calculated with 2020 CKD-EPI equation. Vegetarian diet, extremely high or low muscle mass, and may affect results. Cystatin C with Glomerular Filtration Rate is a suitable alternative for these patients. ANION GAP 13 8 - 16 mmol/L 11/14/2024 2:44 AM [facility]S SPECIALIST [facility] Blood Venipuncture / Unknown 11/14/2024 12:58 AM [facility]S SPECIALIST 11/14/2024 2:12 AM [facility] SPECIALIST us Joseph Yee NP CHEMISTRY ORDERABLES Final Res ult [facility] CLIA# [id number] [place] [address] * US DOPPLER VENOUS ARM BILATERAL (11/14/2024 12:20 AM [facility]S SPECIALIST) Anatomical Region Laterality Modality Upper Extremity Ultrasound 11/14/2024 12:2 1 AM [facility]S SPECIALIST Impressions 11/14/2024 7:07 AM [facility]S SPECIALIST IMPRESSION: 1. No evidence of deep vein thrombosis in either upper extremity. DICTATION LOCATION: Location [address] [place] [address] Narrative 11/14/2024 7:07 AM [facility]S SPECIALIST EXAMINATION: US DOPPLER VENOUS ARM BILATERAL DATE: 11/14/2024 12:20 AM HISTORY: DVT; See Reason for Exam COMPARISON: No prior study is available for comparison at the time of this dictation. FINDINGS: Grayscale, Color Doppler and Spectral waveform analysis was performed. Right upper extremity: The visible portions of the internal jugular, subclavian, brachial, cephalic, and basilic veins demonstrate normal compressibility, augmentation, and Doppler color flow without evidence of intravascular echogenicity. Left upper extremity: The visible portions of the internal jugular, subclavian, brachial, cephalic, and basilic veins demonstrate normal compressibility, augmentation, and Doppler color flow without evidence of intravascular echogenicity. Procedure Note Bryan Akbar MD - 11/14/2024 EXAMINATION: US DOPPLER VENOUS ARM BILATERAL DATE: 11/14/2024 12:20 AM HISTORY: DVT; See Reason for Exam COMPARISON: No prior study is available for comparison at the time of this dictation. FINDINGS: Grayscale, Color Doppler and Spectral waveform analysis was performed. Right upper extremity: The visible portions of the internal jugular, subclavian, brachial, cephalic, and basilic veins demonstrate normal compressibility, augmentation, and Doppler color flow without evidence of intravascular echogenicity. Left upper extremity: The visible portions of the internal jugular, subclavian, brachial, cephalic, and basilic veins demonstrate normal compressibility, augmentation, and Doppler color flow without evidence of intravascular echogenicity. IMPRESSION: 1. No evidence of deep vein thrombosis in either upper extremity. DICTATION LOCATION: Location 7 - [facility] Joseph Yee NP US ORDERABLES Final Result * MRI PRIOR STUDY (11/10/2024 6:35 AM [facility]S SPECIALIST) Only the most recent of2 resultswithin the time period is included. [facility]INT [facility] - 11/14/2024 5:38 AM GRANTS SPECIALIST This exam was auto finalized to allow images to be scanned to PACS. External Provider [facility] MR ORDERABLES Final Res ult Performing Organization Address City/[facility]/ZIP Co de Phone Number [facility] CLIA # [id number] [place] [address] * XR PRIOR STUDY (11/09/2024 8:00 PM [facility]S SPECIALIST) Only the most recent of6 resultswithin the time period is included. [facility] POINT OF CARE - 11/14/2024 5:41 AM [facility]S SPECIALIST This exam was auto finalized to allow images to be scanned to PACS. External Provider [facility] DIAGNOSTIC IMAGING ORDERA BLES Final Result Performing Organization Address City/[facility]/ZIP Co de Phone Number [facility] CLIA # [id number] [place] [address] * CT PRIOR STUDY (11/09/2024 3:30 AM GRANTS SPECIALIST) [facility] - 11/14/2024 5:47 AM GRANTS SPECIALIST This exam was auto finalized to allow images to be scanned to PACS. us External Provider [facility] CT ORDERABLES Final Res ult [facility] POINT OF CARE CLIA # [id number] [place] [address] * PET BONE IMG W CT SKB TH (11/05/2024 2:45 PM GRANTS SPECIALIST) Anatomical Region Laterality Modality Other us Aydin Carrasco MD PE ORDERABLES Final Result from Last 3 Months Insurance BS BLUE ACCESS/TRUE BLUE PPO MEDICA[place] PENDING [place] BCBS BLUE ACCESS/TRUE BLUE PPO RX [facility] [employer] Advance Directives For more information, please contact: [phone] Documents on File Type Date Recorded Patient Desk Director Expl anation Advance Directive POA 11/21/2024 12:12 PM A dvance Directive POA * Full Code (Latest Code Status on File) Date Activated Date Inactivated Comments 11/13/2024 9:50 PM 11/26/2024 8:21 PM
--- OUTSIDE RECORDS SUMMARY | 2024-12-11 09:44 | XMS_ITS | Referral Summary ---
Author Organization [facility] [address] Address [address] [place] [address] Care Team Providers Care Resaw Tailer Name Role Phone Gia Clark Primary Care Provider [phone] Harry Loredo MD Unavailable [phone] Rachell Mcnulty MD Unavailable [phone] Beata Feldman RN Unavailable [phone] Encounters Date Type Department Care Team Description 11/27/2024 Telephone [facility] Home Care Services [address] [place] [address] Zachary Gannona 11/26/2024 Telephone [facility] Services [address] [place] [address] Unknown, Notinfile from Last 3 Months Allergies No known active allergies Medications sodium [...] times a day 180 tablet 3 03/19/2024 03/19/20 25 Active metoprolol XL (TOPROL-XL) 200 mg extended release tablet Take 1 tablet (200 mg total) by mouth daily 90 tablet 3 05/03/2024 05/03/20 25 Active Active Problems Problem Noted Date Diagnosed Date Typical atrial flutter ([facility]) 03/19/2024 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 ([facility]) 02/09/2024 End stage renal disease ([facility]) 09/02/2022 Overview (09/02/2022): Added automatically from request for surgery [id number] Hypertension 02/14/2022 Renal mass 02/14/2022 Immunizations Immunization Administration Dates Next Due Influenza, [...] Plan of Treatment Not on file Insurance [facility] PPO [facility] Address: [facility] [address] [place] [address] [facility] Care Teams Resaw Tailer Relationship Specialty Start Date End Date Gia Clark PA [address] [place] [id number] PCP - General Physician Marine Engineer Cpvec 09/15/22 Harry Loredo MD [address] [place] [address] Consulting Physician Cardiovascular Disease 03/18/24 Rachell Mcnulty MD [address] [facility] [address] [place] [address] Referring Physician Nephrology 06/05/24 Beata Feldman, RN [address] [place] [address] Gasateria Attendant 06/05/24
--- OUTSIDE RECORDS SUMMARY | 2024-12-11 09:44 | XMS_ITS | Encounter Summary ---
Author Organization [facility] Address [address] [facility] [place] [address] Phone Care Team Providers Care Corporate Treasurer Name Role Phone Unavailable Primary Care Provider Unavailabl e Reason for Visit * Auth/Cert (Routine) Specialty Diagnoses / Procedures Referred By Contac t Referred To Contact Referral ID Status Reason Start Date Expiration Date Visits Re quested Visits Authorized [id number] 1 1 Encounter Details Date Type Department Care Team (Latest Contact Info) Description 12/10/2024 2:00 PM MITTEN STITCHER [facility] [address] [place] [address] Xiomara Jiang OTA [place] OT - DISCIPLINE DISCHARGE Social History Tobacco Use Types Packs/Day Years Used Date Smoking Tobacco: Never Assessed Sex and Gender Information Value Date Recorded Sex Assigned at Not on file Legal Sex Male 12:25 AM CDT Gender Identity Not on file Sexual Orientation Not on file documented as of this encounter Last Filed Vital Signs Vital Sign Reading Time Taken Comments Blood Pressure 131/80 12/10/2024 1:58 PM MITTEN STITCHER Pulse 94 12/10/2024 1:58 PM MITTEN STITCHER Temperature 36.2 C (97.2 F) 12/10/2024 1:58 PM MITTEN STITCHER Respiratory Rate 18 12/10/2024 1:58 PM MITTEN STITCHER Oxygen Saturation 98% 12/10/2024 1:58 PM MITTEN STITCHER Inhaled Oxygen Concentration - - Weight 81.8 kg (180 lb 7 oz) 12/10/2024 1:58 PM MITTEN STITCHER Height - - Body Mass Index 24.47 11/29/2024 9:36 AM MITTEN STITCHER documented in this encounter Plan of Treatment Upcoming Encounters Date Type Department Care Team ( Contact Info) Description 12/12/2024 1:00 AM MITTEN STITCHER [facility] [address] [place] [address] Loreto Green, ASE MASTER MECHANIC 12/13/2024 1:00 AM MITTEN STITCHER [facility] [address] [place] [address] Leela Rao, RN [place] 12/16/2024 1:00 AM MITTEN STITCHER Home Care Visit [address] [address] Leela Rao, RN [place] 12/16/2024 2:00 PM MITTEN STITCHER Home Care Visit [facility] [address] Loreto Green, ASE MASTER MECHANIC 12/18/2024 2:00 AM MITTEN STITCHER Home Care Visit [facility] [address] Cintia Chen PT [place] 12/20/2024 1:00 AM MITTEN STITCHER Home Care Visit [facility] [address] Leela Rao, RN [place] 12/23/2024 1:00 AM CDT Home Care Visit [facility] [address] Leeal Rao, RN [place] 12/27/2024 1:00 AM CDT Home Care Visit [facility] [address] Leela Rao, RN [place] 12/30/2024 1:00 AM CDT Home Care Visit [facility] [address] Leela Rao, RN [place] 01/03/2025 1:00 AM CDT Home Care Visit [facility] [address] Leela Rao, RN [place] 01/06/2025 1:00 AM CDT Home Care Visit [facility] [address] Leela Rao, RN [place] 01/13/2025 1:00 AM CDT [facility] [address] [place] [address] Leela Rao RN [place] 01/20/2025 1:00 AM CDT Appointment [facility] [address] [place] [address] Leela Rao RN [place] documented as of this encounter Visit Diagnoses Not on filedocumented in this encounter Home Health Visit - Care Plan Visit Details Visit Type -OT - DISCIPLINE DISCHARGE Discipline -Occupational Therapy Problems Problem Description Start Date Status Goals Interve ntions ALL VITAL SIGN PARAMETERS Disciplines: All Home Care 11/27/2024 Active - 1 problem intervention scheduled/document ed in this visit OCCUPATIONAL THERAPY EVALUATION ORDER (O) Disciplines: Occupational Therapy Occupational Therapy General Order 11/29/2024 Active 1 goal linked to scheduled/documen madie intervention 2 goal interventions scheduled/document ed in this visit OT COMPREHENSIVE Disciplines: Occupational Therapy 11/29/2024 Active 1 goal linked to scheduled/documen madie intervention 1 goal intervention scheduled/document ed in this visit Goals Goal Associated Problem Outcome Goal Met? Visit Notes Occupational Therapy Evaluation Description: After assessing the patient and discussing the patient's goals the following were identified. Patient Centered Hat Cleaner Goal: to be able to get his own shower Target date: 12/14/24 OCCUPATIONAL THERAPY EVALUATION ORDER (O) No OT Homemaking Description: Short Term Goal: Patient will demonstrate ability to complete meal prep at standing level with walker and walker basket/tray as needed with independence. To be met by 12/14/24. OT COMPREHENSIVE No Interventions Intervention Associated Problem/Goal Status Variance Visit Notes All Vital Sign Parameters (Order Only) Description: Standard parameters to report to physician (unless patient specific parameters are ordered) - Applicable to all disciplines involved in patient's plan of care: Systolic blood pressure less than 90 Systolic blood pressure greater than 160 and/or diastolic blood pressure greater than 100 at rest unless due to uncontrolled pain or missed dose of antihypertensive medication. Blood Pressure greater than 140/90 for 3 consecutive readings occurring in at least two separate visits. Pulse greater than 110 at rest or less than 50 Respirations greater than 24 at rest or less than 10 Temperature greater than 101 degrees Fahrenheit New or increased edema Pulse ox less than 90% at rest on room air or while wearing prescribed oxygen, if ordered. Uncontrolled pain: chronic pain that changes in character or increases, pain that interferes with activity daily, or pain that is reported as unacceptable by the patient after use of prescribed pain control measures. Problem:ALL HH VITAL SIGN PARAMETERS Completed OT Evaluation (Order Only) Description: 64 y.o. male with a pertinent history significant for ESRD on HD TTS, AAA, DVT, persistent A-fib, HTN, adrenal mass/pulmonary nodules, renal cell carcinoma, peripheral vascular disease, who presented with initially to outside hospital ([facility]) for evaluation of necrotic left foot. Due to gangrene of the left foot patient was transferred to [facility] for vascular surgery evaluation. Pt. had R great toe amputation and was discharged home with home care. At OT [facility], pt. was SBA for mobility using walker with cues for walker safety. Pt. has not showered and is doing sponge baths as he is not allowed to get R foot wet with wound and does not have a shower chair. 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 He reports he is home from dialysis on Tuesdays by 9:30ish. Occupational therapy for ADL using shower chair, meal prep, tub transfer, and overall safety recommendations. Past Medical History: significant for ESRD on HD TTS, AAA, DVT, persistent A-fib, HTN, adrenal mass/pulmonary nodules, renal cell carcinoma, peripheral vascular disease Other contributing issues: Pt on [facility] three times each week. Pt admits to being non compliant with Renal diet Patient and Gia Clark NP are in agreement with plan of care. Perform pulse oximetry PRN for intermittent assessment and/ or respiratory distress. Problem:OCCUPATIONAL THERAPY EVALUATION ORDER (O) Goal:Occupational Therapy Evaluation Completed OT Discharge Problem:OCCUPATIONAL THERAPY EVALUATION ORDER (O) Goal:Occupational Therapy Evaluation Completed Medication list reviewed and left in home. Medicare notice of discharge signed on PT & SN still active. Discharge Instructions provided to Patient. Response verbalize understanding. OT Homemaking Description: Instruct on homemaking techniques and safety. Equipment as needed. Problem:OT COMPREHENSIVE Goal:OT Homemaking Completed Patient performed homemaking for meal prep with walker and walker basket/tray with independence. Education provided fall prevention, adaptive equipment use and use of assistive device. Instruction provided to Patient. Response verbalize understanding, return demonstration and teachback. Pt completed simulated meal prep with use of new walker basket with v/c for safety including only light weight food/drinks that are covered and safe temperature. documented in this encounter
--- OUTSIDE RECORDS SUMMARY | 2024-12-11 09:44 | XMS_ITS | Clinical Summary ---
Author Organization [facility] Address [address] [address] Phone Care Team Providers Care Bathhouse Attendant Name Role Phone Unavailable Primary Care Provider Unavailabl e Allergies No known active allergies Medications SODIUM BICARBONATE PO Take 10 g by mouth 2 times daily. Active hydrALAZINE 50 MG Tablet Take 50 mg by mouth 2 times daily. Active apixaban (Eliquis) 5 MG Tablet Take 5 mg by mouth 2 times daily. Active sevelamer (RENAGEL) 800 MG Tablet Take 800 mg by mouth 3 times daily. Active metoprolol succinate (TOPROL-XL) 200 MG TABLET SR 24 HR Take 200 mg by mouth daily. Active atorvastatin (LIPITOR) 40 MG Tablet Take 40 mg by mouth nightly. Active furosemide (LASIX) 20 MG Tablet Take 20 mg by mouth daily. Active Fluticasone Furoate-Vilanter ol (BREO ELLIPTA) 200-25 MCG/ACT AEROSOL POWDER, BREATH ACTIVATED take 1 Puff by inhalation daily. Active acetaminophen (TYLENOL) 500 MG Tablet Take 500 mg by mouth every 4 hours as needed for Mild or more severe pain. Active Encounters Date Type Department Care Team Description 12/10/2024 2:00 PM ALUMINA PLANT SUPERVISOR Home Care Visit [facility] [address] [place] [address] Xiomara Jiang OTA OT - DISCIPLINE DISCHARGE 12/10/2024 10:00 AM ALUMINA PLANT SUPERVISOR Home Care Visit [facility] [address] [place] [address] Loreto Green PTA PT - HOME VISIT 12/10/2024 Home Care Visit [facility] [address] [place] [address] Laws, Xiomara D, DOUGH PUNCHER CASE COMMUNICATION 12/09/2024 11:30 AM ALUMINA PLANT SUPERVISOR Home Care Visit [address] [address] Sidra Noble LPN SN - WOUND VISIT 12/06/2024 1:30 PM ALUMINA PLANT SUPERVISOR Home Care Visit [address] [address] Leela Roa, RN SN - WOUND VISIT 12/05/2024 12:30 PM ALUMINA PLANT SUPERVISOR Home Care Visit [address] [address] Loreto Green, COMPOUNDER [employer] PT - HOME VISIT 12/05/2024 11:00 AM ALUMINA PLANT SUPERVISOR Home Care Visit [address] [address] Xiomara Jiang, RENETTA OT - HOME VISIT 12/05/2024 Home Care Visit [address] [address] Xiomara Jiang, DOUGH PUNCHER CASE COMMUNICATION 12/03/2024 12:00 PM ALUMINA PLANT SUPERVISOR Home Care Visit [address] [address] Loreto Green, COMPOUNDER [employer] PT - HOME VISIT 12/03/2024 9:30 AM ALUMINA PLANT SUPERVISOR Home Care Visit [address] [address] Kirstin Santana OT OT - HOME VISIT 12/03/2024 Home Care Visit [address] [address] Leela Rao, RN CARE CONFERENCE 12/02/2024 3:30 PM ALUMINA PLANT SUPERVISOR Home Care Visit [address] [address] Leela Rao, RN SN - WOUND VISIT 11/29/2024 2:00 PM ALUMINA PLANT SUPERVISOR Home Care Visit [address] [address] Leela Rao, RN SN - WOUND VISIT 11/29/2024 9:15 AM ALUMINA PLANT SUPERVISOR Home Care Visit [address] [address] Kirstin Santana OT OT - INITIAL EVALUATION 11/28/2024 3:00 PM ALUMINA PLANT SUPERVISOR Home Care Visit [address] [address] Cintia Chen, PT PT - INITIAL EVALUATION 11/28/2024 Home Care Visit [address] [address] Cintia Chen, PT TELEPHONE ENCOUNTER 11/28/2024 Home Care Visit [address] [address] Damaris An RN TELEPHONE ENCOUNTER 11/27/2024 11:00 AM ALUMINA PLANT SUPERVISOR Home Care Visit [address] [address] Leela Rao RN SN - OASIS START OF CARE 11/27/2024 Plan of Care Documentation [address] [address] from Last 3 Months Social History Tobacco Use Types Packs/Day Years Used Date Smoking Tobacco: Never Assessed Sex and Gender Information Value Date Recorded Sex Assigned at Not on file Legal Sex Male 12:25 AM CDT Gender Identity Not on file Sexual Orientation Not on file Last Filed Vital Signs Vital Sign Reading Time Taken Comments Blood Pressure 131/80 12/10/2024 1:58 PM ALUMINA PLANT SUPERVISOR Pulse 94 12/10/2024 1:58 PM ALUMINA PLANT SUPERVISOR Temperature 36.2 C (97.2 F) 12/10/2024 1:58 PM ALUMINA PLANT SUPERVISOR Respiratory Rate 18 12/10/2024 1:58 PM ALUMINA PLANT SUPERVISOR Oxygen Saturation 98% 12/10/2024 1:58 PM ALUMINA PLANT SUPERVISOR Inhaled Oxygen Concentration - - Weight 81.8 kg (180 lb 7 oz) 12/10/2024 1:58 PM ALUMINA PLANT SUPERVISOR Height 182.9 cm (6') 11/29/2024 9:36 AM ALUMINA PLANT SUPERVISOR Body Mass Index 24.47 11/29/2024 9:36 AM ALUMINA PLANT SUPERVISOR Plan of Treatment Upcoming Encounters Date Type Department Care Team (Late st Contact Info) Description 12/12/2024 1:00 AM ALUMINA PLANT SUPERVISOR Home Care Visit [address] [address] Loreto Green, COMPOUNDER [employer] 12/13/2024 1:00 AM ALUMINA PLANT SUPERVISOR Home Care Visit [address] [address] Leela Rao, RN [place] 12/16/2024 1:00 AM ALUMINA PLANT SUPERVISOR Home Care Visit [address] [address] Leela Rao, RN [place] 12/16/2024 2:00 PM ALUMINA PLANT SUPERVISOR Home Care Visit [address] [address] Loreto Green, COMPOUNDER [employer] 12/18/2024 2:00 AM ALUMINA PLANT SUPERVISOR Home Care Visit [address] [address] Cintia Chen, PT [place] 12/20/2024 1:00 AM ALUMINA PLANT SUPERVISOR Home Care Visit [address] [address] Leela Rao, RN [place] 12/23/2024 1:00 AM CDT Home Care Visit [address] [address] Leela Rao, RN [place] 12/27/2024 1:00 AM CDT Home Care Visit [address] [address] Leela Rao, RN [place] 12/30/2024 1:00 AM CDT Home Care Visit [address] [address] Leela Rao, RN [place] 01/03/2025 1:00 AM CDT Home Care Visit [address] [address] Leela Rao, RN [place] 01/06/2025 1:00 AM CDT [facility] [address] [place] [address] 01/13/2025 1:00 AM CDT [facility] [address] [place] [address] 01/20/2025 1:00 AM CDT [facility] [address] [place] [address] Leela Rao, [place] Health Maintenance Due Date Last Done Comments Hepatitis C Virus (HCV) Screening 1960 Colonoscopy 2005 Colorectal Cancer Screening 2005 Cologuard 2010 Immunochemical Fecal Occult Blood 2010 Zoster Immunization (1 of 2) 2010 PSA Discussion 2015 Influenza Immunization (#1) 06/16/202407/17, 10/24/2022, 08/10/2021, Additional history exists SARS-COV-2 Immunization ( season) 2024 04/01/2022, 03/22/2022, 08/26/2021, Additional history exists Respiratory Syncytial Virus (RSV) Immunization (Adult) (1 - 1-dose 75+ series) 2035 TdaP Immunization Completed 07/15/2022, 07/05/2022 Pneumococcal Immunization (50+ years) Completed 11/16/2023, 10/24/2022 Hepatitis B Immunization Completed 024, 08/08/2024, 07/04/2024, Additional history exists Meningococcal Immunization (ACWY) Aged Out No longer eligible based on patient's age to complete this topic Rotavirus Immunization Aged Out No lo nger eligible based on patient's age to complete this topic Insurance [place] Advance Directives * Full Code (Latest Code Status on File) Date Activated Date Inactivated Comments 11/27/2024 4:04 PM
--- OUTSIDE RECORDS SUMMARY | 2024-12-11 09:44 | XMS_ITS | Encounter Summary ---
Author Organization [facility] Address [address] [place] [address] Phone Care Team Providers Care Loans Officer Name Role Phone Unavailable Primary Care Provider Unavailabl e Reason for Visit * Auth/Cert (Routine) Specialty Diagnoses / Procedures Referred By Contac t Referred To Contact Referral ID Status Reason Start Date Expiration Date Visits Re quested Visits Authorized [id number] 1 1 Encounter Details Date Type Department Care Team ([facility] Contact Info) Description 12/10/2024 Home Care Visit [address] [address] Xiomara Jiang OTA NE CASE COMMUNICATION Social History Tobacco Use Types Packs/Day Years Used Date Smoking Tobacco: Never Assessed Sex and Gender Information Value Date Recorded Sex Assigned at Not on file Legal Sex Male 12:25 AM CDT Gender Identity Not on file Sexual Orientation Not on file documented as of this encounter Plan of Treatment Upcoming Encounters Date Type Department Care Team ([facility] Contact Info) Description 12/12/2024 1:00 AM EXECUTIVE CANDIDATE DEVELOPER Home Care Visit [address] [address] Loreto Green PTA 12/13/2024 1:00 AM EXECUTIVE CANDIDATE DEVELOPER Home Care Visit [address] [address] Leela Rao, [place] 12/16/2024 1:00 AM EXECUTIVE CANDIDATE DEVELOPER Home Care Visit [address] [address] Leela Rao, [place] 12/16/2024 2:00 PM EXECUTIVE CANDIDATE DEVELOPER Home Care Visit [address] [address] Loreto Green, SHIV 12/18/2024 2:00 AM EXECUTIVE CANDIDATE DEVELOPER Home Care Visit [address] [address] Cintia Chen, [place] 12/20/2024 1:00 AM EXECUTIVE CANDIDATE DEVELOPER Home Care Visit [address] [address] Leela Rao, RN [place] 12/23/2024 1:00 AM CDT Home Care Visit [address] [address] Leela Rao, RN [place] 12/27/2024 1:00 AM CDT Home Care Visit [address] [address] Leela Rao, RN [place] 12/30/2024 1:00 AM CDT Home Care Visit [address] [address] Leela Rao, [place] 01/03/2025 1:00 AM CDT Home Care Visit [address] [address] Leela Rao, RN [place] 01/06/2025 1:00 AM CDT Home Care Visit [address] [address] Leela Rao, RN [place] 01/13/2025 1:00 AM CDT Home Care Visit [address] [address] Leela Rao, RN [place] 01/20/2025 1:00 AM CDT Appointment [address] [address] Leela Rao, RN [place] documented as of this encounter Visit Diagnoses Not on filedocumented in this encounter
--- OUTSIDE RECORDS SUMMARY | 2024-12-11 09:45 | XMS_ITS | Referral Summary ---
Author Organization [facility] Address [address] [place] [address] Care Team Providers Care House Mover Supervisor Name Role Phone Gia Clark PA-C Primary Care Provider Source Comments [facility],non-ssm health care Affiliates and Associated Physician Practices is amultiple site organization consisting of ambulatory clinics and hospital sitesin [place], [place], [place] and [place]. This disclosure is being madepursuant to the Care Everywhere program and may not contain all information available regarding this patient. Last updated 18.[facility] [employer] Social History Tobacco Use Types Packs/Day Years Used Date Smoking Tobacco: Never Assessed Sex and Gender Information Value Date Recorded Sex Assigned at Not on file Gender Identity Not on file Sexual Orientation Not on file Plan of Treatment Not on file Care Teams House Mover Supervisor Relationship Specialty Start Date End Date Gia Clark PA-C [address] [place] [phone] PCP - General 05/24/22
--- OUTSIDE RECORDS SUMMARY | 2024-12-11 09:45 | XMS_ITS | Encounter Summary ---
Author Organization [facility] Address [address] [place] [address] Care Team Providers Care Dental Professional Name Role Phone Gia Clark PA-C Primary Care Provider Encounter Details Date Type Department Care Team (Late st Contact Info) Description 06/14/2023 Lab Requisition [facility] - Pathology Lab [address] [place] [address] Cristiano Joe MD [facility] [address] [phone] Generalized enlarged lymph nodes Social History Tobacco [...] 10:46 AM CDT) Case Report Flow Cytometry Case: [id number] Authorizing Provider: Cristiano Joe MD Collected: 06/14/2023 10:46 AM Ordering Location: [facility] Pathology Lab Received: 06/14/2023 04:46 PM Pathologist: Jamel Ashby MD Specimen: Lymph Node, LEFT PELVIC AREA 06/15/2023 8:52 AM [facility] PATHOLOGY LAB Final Diagnosis Lymph node, left pelvic area, flow cytometric immunophenotypic analysis: - Insufficient hematopoietic cells for analysis. - See interpretation. 06/15/2023 8:52 AM [facility] PATHOLOGY LAB Flow Cytometry Interpretation Preliminary characterization of the lymph node specimen demonstrates too few hematopoietic cells for flow cytometric analysis. A cytospin prepared from the flow cytometry specimen is reviewed for quality management coordinator purposes. Flow cytometry is not performed. 06/15/2023 8:52 AM [facility] PATHOLOGY LAB Flow Cytometry Results Too few hematopoietic cells for flow cytometric analysis. 06/15/2023 8:52 AM [facility] Reason for test Generalized enlarged lymph nodes 785.6 06/15/2023 8:52 AM [facility] Client Specimen ID # [id number] 06/15/2023 8:52 AM [facility] PATHOLOGY LAB Pathologist Location at [facility] 06/15/2023 8:52 AM [facility] Disclaimer Test performed at [facility], [address] [place] [address], [address]. *The established laboratory minimum viability is 70%. [...] high complexity clinical testing. 06/15/2023 8:52 AM [facility] PATHOLOGY LAB Embedded Images 8:52 AM [facility] PATHOLOGY LAB Pathology/Cytolo gy ENTIRE LYMPH NODE / Unknown 06/14/2023 10:46 AM CDT 06/14/2023 4:46 PM CDT Cristiano Joe MD LAB - PATHOLOGY/CYTO LOGY ORDERABLES [facility] PATHOLOGY LAB [address] [facility]. [address] [phone] documented in this encounter Visit Diagnoses Diagnosis Generalized enlarged lymph nodes Enlargement of lymph nodes documented in this encounter Care Teams Dental Professional Relationship Specialty Start Date End Date Gia Clark PA-C [address] [place] [phone] PCP - General 05/24/22 documented as of this encounter
--- OUTSIDE RECORDS SUMMARY | 2024-12-11 09:45 | XMS_ITS | Clinical Summary ---
Author Organization [facility] Address [address] [place] [address] Phone Care Team Providers Care Tester Printed Circuit Boards Name Role Phone Gia Clark Primary Care Provider Allergies No known active allergies Medications Medication [...] AM CDT Pulse - - Temperature 35.6 C (96.1 F) 08/02/2022 10:18 AM CDT Respiratory Rate 18 08/02/2022 10:18 AM CDT [...] Vaccine (#1) 2024 08/10/2021, 2019 Care Teams Tester [employer]ed [employer] Boards Relationship Specialty Start Date End Date Gia Clark PA [address] [place] [phone] PCP - General 01/03/22
--- OUTSIDE RECORDS SUMMARY | 2024-12-11 09:45 | XMS_ITS | Patient Health Summary ---
Author Organization [facility] [employer] Address [address] [place] [address] Care Team Providers Care Clinical Massage Therapist Name Role Phone Gia Clark PA-C Primary Care Provider Note from [facility],non-owned Affiliates and Associated Physician Practices is amultiple site organization consisting of ambulatory clinics and hospital sitesin [place], [place], [place] and [place]. This disclosure is being madepursuant to the Care Everywhere program and may not contain all information available regarding this patient. Last updated 18.[facility] Social History Tobacco Use Types Packs/Day Years [...] AM CDT) Case Report Flow Cytometry Case: [id number] Authorizing Provider: Cristiano Joe MD Collected: 06/14/2023 10:46 AM Ordering Location: [facility] Pathology Lab Received: 06/14/2023 04:46 PM Pathologist: Jamel Ashby MD Specimen: Lymph Node, LEFT PELVIC AREA 06/15/2023 8:52 AM CDT [facility] PATHOLOGY LAB Final Diagnosis Lymph node, left pelvic area, flow cytometric immunophenotypic analysis: - Insufficient hematopoietic cells for analysis. - See interpretation. 06/15/2023 8:52 AM CDT [facility] PATHOLOGY LAB Flow Cytometry Interpretation Preliminary characterization of the lymph node specimen demonstrates too few hematopoietic cells for flow cytometric analysis. A cytospin prepared from the flow cytometry specimen is reviewed for software quality tester purposes. Flow cytometry is not performed. 06/15/2023 8:52 AM T [facility] PATHOLOGY LAB Flow Cytometry Results Too few hematopoietic cells for flow cytometric analysis. 06/15/2023 8:52 AM [facility] PATHOLOGY LAB Reason for test Generalized enlarged lymph nodes 785.6 06/15/2023 8:52 AM CDT [facility] PATHOLOGY LAB Client Specimen ID # [id number] 06/15/2023 8:52 AM [facility] PATHOLOGY LAB Pathologist Location at [facility] 06/15/2023 8:52 AM T [facility] PATHOLOGY LAB Disclaimer Test performed at [facility], [address] [place] [address], [id number]. *The established laboratory minimum viability is 70%. [...] complexity clinical testing. 06/15/2023 8:52 AM CDT [facility] PATHOLOGY LAB Embedded Images 8:52 AM CDT [facility] PATHOLOGY LAB Pathology/Cytolo gy ENTIRE LYMPH NODE / Unknown 06/14/2023 10:46 AM CDT 06/14/2023 4:46 PM CDT Cristiano Joe MD LAB - PATHOLOGY/CYTO LOGY ORDERABLES [facility] PATHOLOGY LAB [address] [place] [address]. [place] [address], [facility] [phone] Care Teams Clinical Massage Therapist Relationship Specialty Start Date End Date Gia Clark PA-C [address] [place] [phone] PCP - General 05/24/22
--- OUTSIDE RECORDS SUMMARY | 2024-12-11 09:46 | XMS_ITS | Continuity of Care Document ---
Author Organization [facility] Address [address] [place] [address] [facility] [employer] [address] [place] [address] Phone Care Team Providers Care General Road Production Manager Name Role Phone Marcos OD, Sebas Unavailable Unavailable Advance Directives Directive Yes / No Effective Date File Name No Information Encounters Encounter Description Practice Location Reason(s) For Visit Diagnoses Date Provider Providers Copied on Encounter [facility], [id number] [place] [address] [address], [place], [place], [id number], [place] tel:[phone] [facility] No Information Aug-0 4-200 5 Marcos OD Sebas. [address] , [address], [place], [address], [place]. tel:[phone] Family History Family Member Type Diagnosis Age At Onset No Information Payers Payer name Insurance type Covered republican ID Authoriza tijean(s) [facility] CI [id number] Social History Type Description Quantity Date Captured [...]
--- OUTSIDE RECORDS SUMMARY | 2024-12-11 09:46 | XMS_ITS ---
Author Organization [facility] Address [address] [place] [address] Care Team Providers Care Shuttle Repairer Name Role Phone Unavailable Primary Care Provider Unavailabl e Active Problems Problem Noted Date Diagnosed Date Preoperative cardiovascular examination 11/17/19 PAF (paroxysmal atrial fibrillation) 11/17/2024 Essential hypertension [...] mass 11/13/2024 AAA (abdominal aortic aneurysm) 11/13/2024 Current Treatment and Therapy Plans No current plan information found. Past Treatment and Therapy Plans No past plan information found. Lifetime Dose Tracking * Chemical Lifetime Dose Automatic Entry Manual Entr y Effective Dose 28.64 mSv 28.64 mSv 0 mSv Total DLP 3,955.99 DLP 3,955.99 DLP 0 DLP CTDIvol Max 27.98 mGy 27.98 mGy 0 mGy CTDIvol Min 9.4 mGy 9.4 mGy 0 mGy Resolved Problems Problem Noted Date Diagnosed Date Resolved Date Acute lower limb ischemia 11/14/2024 Acute deep vein thrombosis ( DVT) of proximal vein of both lower extremities 11/13/2024 Stage 5 chronic kidney disea se on chronic dialysis 11/13/2024 11/13/2024
[2024-12-11 11:36] LABS: Anion Gap 16 mmol/L (4-12); Blood Urea Nitrogen 55 mg/dL (9-20); Calcium 9.6 mg/dL (8.4-10.2); Carbon Dioxide 20 mmol/L (22-30); Chloride 99 mmol/L (98-107); Estimated Glomerular Filt Rate 8; Glucose 103 mg/dL (65-110); Potassium 5.4 mmol/L (3.4-5.0); Sodium 135 mmol/L (137-145)
[2024-12-11 12:57] LABS: Iron 75 ug/dL (49-181)
[2024-12-11 13:07] LABS: Percent Iron Saturation 28 % (20-50)
== END 2024-12-11 09:03 | disposition home or self-care (01) ==
PROVIDERS: PCP Physician Assistant; Visit Provider Internal Medicine Hematology & Oncology
DX: D64.9 Anemia, unspecified (principal)
CPT/HCPCS: 36415; 80048; 82728; 83540; 83550; 85025

== ENCOUNTER 2025-01-06 11:52 | Outpatient (CLI) | payer BC, SELFPAY ==
[2025-01-06 12:30] LABS: Mean Platelet Volume 9.2 fl (7.4-10.4); Platelet Count Result 237 k/mm3 (150-375)
--- OUTSIDE RECORDS SUMMARY | 2025-01-06 13:49 | XMS_ITS | Encounter Summary ---
Author Organization [facility] Address [address] [place] [address] Care Team Providers Care Repairer Recreational Vehicle Name Role Phone Unavailable Primary Care Provider Unavailabl e Encounter Details Date Type Department Care Team ( Contact Info) Description 06/02/2023 Telephone [facility] Oncology and Hematology [address] [place] [address] Aydin Carrasco MD [facility] [employer] [address] [place] [address] Social History Tobacco Use Types Packs/Day [...] Department Care Team (Late Contact Info) Description 01/20/2025 4:00 PM CDT Telephone Check Up [facility] Oncology [facility] Hematology [address] [place] [address] Aydin Carrasco MD [facility] [employer] [address] [place] [address] 01/22/2025 10:00 AM CDT Appointment [facility] Hyperbaric and Wound Care [address] [address] [place] [phone] Jesus Luciano, DPM [address] [place], [place] [id number] 04/14/2025 10:15 AM CDT Appointment [facility] Heart and Vascular Testing [facility] [address] [facility] [address] [place] [address] Shanika Sebastian FNP [address] [facility] [address] [place] [address] 04/14/2025 11:30 AM CDT Office Visit [facility] Heart and Vascular Surgery [address] [facility] [address] [facility] [address] [place] [address] [place] [address] [facility] [address] [place] [address] documented as of this encounter Visit Diagnoses Not on filedocumented in this encounter
--- OUTSIDE RECORDS SUMMARY | 2025-01-06 13:49 | XMS_ITS | Clinical Summary ---
Author Organization [facility] Address [address] [address] Phone Care Team Providers Care Electrical Software Engineer Name Role Phone Unavailable Primary Care Provider [...] for Mild or more severe pain. Active amoxicillin-clav ulanate (AUGMENTIN) 875-125 MG Tablet Take 1 Tablet by mouth 2 times daily. 12/29/19 25 Encounters Date Type Department Care Team Description 01/03/2025 1:00 PM CDT Home Care Visit [facility] [address] [place] [address] Leela Rao RN SN - OASIS DISCHARGE 12/26/2024 12:30 PM CD[facility] [address] [place] [address] Leela Rao, RN SN - WOUND VISIT 12/23/2024 1:30 PM CDT Home Care Visit [address] [address] Sidra Noble LPN SN - WOUND VISIT 12/19/2024 5:00 PM LOAN CONSULTANT Home Care Visit [address] [address] Leela Rao, RN SN - WOUND VISIT 12/17/2024 11:30 AM LOAN CONSULTANT Home Care Visit [address] [address] Cintia Chen, PT PT - DISCIPLINE DISCHARGE 12/16/2024 2:00 PM LOAN CONSULTANT Home Care Visit [address] [address] Loreto Green, SEARCH AND RESCUE OFFICER PT - HOME VISIT 12/16/2024 2:00 PM LOAN CONSULTANT Home Care Visit [address] [address] Leela Rao, RN SN - WOUND VISIT 12/16/2024 Home Care Visit [address] [address] Leela Rao, RN TELEPHONE ENCOUNTER 12/12/2024 11:30 AM LOAN CONSULTANT Home Care Visit [address] [address] Loreto Green, SEARCH AND RESCUE OFFICER PT - HOME VISIT 12/12/2024 Home Care Visit [address] [address] Kirstin Santana OT OT - DISCHARGE SUMMARY 12/11/2024 2:30 PM LOAN CONSULTANT Home Care Visit [address] [address] Leela Rao, RN SN - WOUND VISIT 12/10/2024 2:00 PM LOAN CONSULTANT Home Care Visit [address] [address] Xiomara Jiang, EXPERIMENTAL MECHANIC SPACECRAFT OT - DISCIPLINE DISCHARGE 12/10/2024 10:00 AM LOAN CONSULTANT Home Care Visit [address] [address] Loreto Green, SEARCH AND RESCUE OFFICER PT - HOME VISIT 12/10/2024 Home Care Visit [address] [address] Xiomara Jiang, RENETTA CASE COMMUNICATION 12/09/2024 11:30 AM LOAN CONSULTANT Home Care Visit [address] [address] Sidra Noble LPN SN - WOUND VISIT 12/06/2024 1:30 PM LOAN CONSULTANT Home Care Visit [address] [address] Leela Rao, RN SN - WOUND VISIT 12/05/2024 12:30 PM LOAN CONSULTANT Home Care Visit [address] [address] Loreto Green, SEARCH AND RESCUE OFFICER PT - HOME VISIT 12/05/2024 11:00 AM LOAN CONSULTANT Home Care Visit [address] [address] Xiomara Jiang, EXPERIMENTAL MECHANIC SPACECRAFT OT - HOME VISIT 12/05/2024 Home Care Visit [address] [address] Xiomara Jiang, RENETTA CASE COMMUNICATION 12/03/2024 12:00 PM LOAN CONSULTANT Home Care Visit [address] [address] Loreto Green, SEARCH AND RESCUE OFFICER PT - HOME VISIT 12/03/2024 9:30 AM LOAN CONSULTANT Home Care Visit [address] [address] Kirstin Santana OT OT - HOME VISIT 12/03/2024 Home Care Visit [address] [address] Leela Rao, RN CARE CONFERENCE 12/02/2024 3:30 PM LOAN CONSULTANT Home Care Visit [address] [address] Leela Rao, RN SN - WOUND VISIT 11/29/2024 2:00 PM LOAN CONSULTANT Home Care Visit [address] [address] Leela Rao, RN SN - WOUND VISIT 11/29/2024 9:15 AM LOAN CONSULTANT Home Care Visit [address] [address] Kirstin Santana OT OT - INITIAL EVALUATION 11/28/2024 3:00 PM LOAN CONSULTANT Home Care Visit [address] [address] Cintia Chen, PT PT - INITIAL EVALUATION 11/28/2024 Home Care Visit [address] [address] Cintia Chen, PT TELEPHONE ENCOUNTER 11/28/2024 Home Care Visit [address] [address] Damaris An, LEEROY TELEPHONE ENCOUNTER 11/27/2024 11:00 AM LOAN CONSULTANT Home Care Visit [address] [address] Leela Rao, RN SN - OASIS START OF CARE 11/27/2024 Plan of Care Documentation [address] [address] from Last 3 Months Social History Tobacco Use Types Packs/Day Years Used Date Smoking Tobacco: Never Assessed Sex and Gender Information Value Date Recorded Sex Assigned at Not on file Legal Sex Male 12:25 AM CDT Gender Identity Not on file Sexual Orientation Not on file Last Filed Vital Signs Vital Sign Reading Time Taken Comments Blood Pressure 126/72 01/03/2025 2:30 PM CDT Pulse 88 01/03/2025 2:30 PM CDT Temperature 36.6 C (97.8 F) 01/03/2025 2:30 PM CDT Respiratory Rate 16 01/03/2025 2:30 PM CDT Oxygen Saturation 98% 01/03/2025 2:30 PM CDT Inhaled Oxygen Concentration - - Weight 89 kg (196 lb 3.4 oz) 12/17/2024 11:30 AM LOAN CONSULTANT Height 182.9 cm (6') 11/29/2024 9:36 AM LOAN CONSULTANT Body Mass Index 26.61 11/29/2024 9:36 AM LOAN CONSULTANT Plan of Treatment Health Maintenance Due Date [...] patient's age to complete this topic Insurance [facility] Advance Directives * Full Code (Latest Code Status on File) Date Activated Date Inactivated Comments 11/27/2024 4:04 PM
--- OUTSIDE RECORDS SUMMARY | 2025-01-06 13:49 | XMS_ITS | Continuity of Care Document ---
Author Organization [facility] Address [address] [place] [address] [facility] [address] [place] [address] Phone Care Team Providers Care Animal Rides Manager Name Role Phone Marcos OD, Sebas Unavailable Unavailable Advance Directives Directive Yes / No Effective Date File Name No Information Encounters Encounter Description Practice Location Reason(s) For Visit Diagnoses Date Provider Providers Copied on Encounter [facility], [id number] [place] [address] [address], [place], [place], [id number], [place] tel:[phone] [facility] No Information Aug-0 4-200 5 Marcos OD Sebas. [address] , [address], [place], [address], [place]. tel:[phone] Family History Family Member Type Diagnosis Age At Onset No Information Payers Payer name Insurance type Covered libertarian ID Authoriza tijean(s) [facility] CI [id number] Social History Type Description Quantity Date Captured [...]
--- OUTSIDE RECORDS SUMMARY | 2025-01-06 13:49 | XMS_ITS | Clinical Summary ---
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 02/09/2024 End stage renal disease 09/02/2022 Overview (09/02/2022): Added automatically from request for surgery [id number] Hypertension 02/14/2022 Renal mass 02/14/2022 Encounters Date Type Department Care Team Description 11/27/2024 Telephone [facility] Home Care Services [address] [place] [address] Zachary Gannona 11/26/2024 Telephone [facility] Home Care Services [address] [place] [address] Unknown, Notinfile from Last 3 [...] Td or Tdap) 07/15/2032 07/15/2022 Insurance [facility] [employer] [place] [employer] [place] Care Teams Appointment Manager Relationship Specialty Start Date End Date Gia Clark PA [address] [place] [id number] PCP - General Physician Carbon Brushes Assembler 09/15/22 Harry Loredo MD [address] [facility] [address] [place] [address] Consulting Physician Cardiovascular Disease 03/18/24 Rachell Mcnulty MD [address] [facility] [address] [place] [address] Referring Physician Nephrology 06/05/24 Beata Feldman, RN [address] [place] [address] Administrative Support Assoc 06/05/24
--- OUTSIDE RECORDS SUMMARY | 2025-01-06 13:49 | XMS_ITS | Clinical Summary ---
Author Organization [facility] Address [facility] [place] [address] Care Team Providers Care Heel Slugger Name Role Phone Gia Clark PA-C Primary Care Provider [phone] Allergies No known active allergies Medications sodium [...] this topic Medical Devices Implanted Type Area Brick Extruder Operator Device Identifier Shelf Expiration Date Model / Serial / Lot Dirk Clareon Iol Implanted:Qty: 1 on 06/13/2022 by Jung Rosales MD at [facility] Left: Eye DIRK - SURGICAL DIV 02/27/2025 [id number] / [id number] / [place] [address] [facility] Care Teams Heel Slugger Relationship Specialty Start Date End Date Gia Clark PA-C PCP - General PHYSICIAN SCREEN PRINTING CLOTH SPREADER 06/13/22
--- OUTSIDE RECORDS SUMMARY | 2025-01-06 13:49 | XMS_ITS | Referral Summary ---
Author Organization [facility] [address] Address [address] [place] [address] Care Team Providers Care Slate Splitting Supervisor Name Role Phone Gia Clark Primary Care Provider [phone] Harry Loredo MD Unavailable Rachell Mcnulty MD Unavailable [phone] Beata Feldman RN Unavailable [phone] Encounters Date Type Department Care Team Description 11/27/2024 Telephone [facility] Home Care Services [address] [place] [address] Zachary Gannona 11/26/2024 Telephone [facility] Home Care Services [address] [place] [address] Unknown, Notinfile from Last 3 [...] (09/02/2022): Added automatically from request for surgery [id number] Hypertension 02/14/2022 Renal mass 02/14/2022 Immunizations Immunization [...] Plan of Treatment Not on file Insurance [facility] [employer] PPO [facility] HMO/PPO Address: [facility] [id number] [place] [address] REPLACED BY [facility] REPLACED BY [facility] Care Teams Slate Splitting Supervisor Relationship Specialty Start Date End Date Gia Clark PA [address] [place] [address] PCP - General Physician Motor Grader Rough Grade 09/15/22 Harry Loredo MD [address] [place] [address] Consulting Physician Cardiovascular Disease 03/18/24 Rachell Mcnulty MD [address] [facility] [address] [place] [address] Referring Physician Nephrology 06/05/24 Beata Feldman, RN [address] [place] [address] Pharmaceutical Representative 06/05/24
--- OUTSIDE RECORDS SUMMARY | 2025-01-06 13:49 | XMS_ITS | Data Portability ---
Author Organization [facility] ALICI[facility]ionic[facility] Leo Address [address] [place] [address] Care Team Providers Care Industrial Recruiter Name Role Phone GIA JACOBS Primary Care Provider Assessment Encounter Date Assessment Date Assessment LastModified by Organization Details LastModified Time 08/04/2023 08/04/2023 F/u in 3 months after Nephrology appt. [email or web address] Not available 08/04/2023 12:38:27 Plan of Treatment Reminders Order Date Submit Date Provider Last Modified By Organization Details Last Modified Time Details Appointments ANY 30 2024 02:00P INGE BARNEY Not available Not available Not available Lab vitamin D, 25-hydrox y, total, serum 2022 023 [facility] [address], [address], [place], [address], 12/20/2022 17:09:37 vitamin B12 + folate, serum or blood 2022 023 [facility] [address], [address], [place], [address], 12/20/2022 17:09:36 pro BNP (pro B-type natriuret ic peptide), serum or plasma 2022 023 [facility] [address], [address], [place], [address], 12/20/2022 13:14:15 CMP, serum or plasma 2022 023 [facility] [address], [address], [place], [address], 12/20/2022 13:11:06 lipid panel, serum 2022 023 [facility], [address], [address], [place], [address], 12/20/2022 13:11:05 CBC w/ auto diff 2022 023 [facility], [address], [address], [place], [address], 12/20/2022 17:09:40 TSH + free T4, serum 2022 023 [facility], [address], [address], [place], [address], 12/20/2022 17:09:35 HbA1c (hemoglob in A1c), blood 2022 023 [email or web address] In-Office Order, Internal Use Only DO Not Attach Compendium DO Not Attach Compendium, Do Not Delete/merge, [id number] 12/19/2022 12:08:18 Referral gastroent erologist referral 2022 023 CONWAY Magnus Marie MD, [address] [facility], [address], [place], [address], 11/14/2022 14:55:02 Procedures None recorded. Surgeries None recorded. Imaging US, echocardi ogram, transthor acic, complete, w/ color flow 2022 023 [facility], [address], [place], [address], 11/03/2023 15:21:02 Medication Orders nicotine 21 mg/24 hr daily transderm al patch 2024 025 CON[facility]200, [address], [place], [place], [id number], 12/24/2024 17:04:56 Eliquis 5 mg tablet 03/2024 [facility] #24773, [address], [place], [id number], 12/24/2024 17:18:54 furosemid e 20 mg tablet 2024 [facility] #36142, [address], [place], [id number], 12/24/2024 17:18:53 sodium bicarbona te 650 mg tablet 2024 [facility] #57857, [address] [place] [address], [id number], 12/24/2024 17:32:20 amlodipin e 10 mg tablet 2024 [facility] #75886, [address], [place], [id number], 12/24/2024 17:07:58 hydralazi ne 50 mg tablet 2024 [facility] #23872, [address] [place] [address], [id number], 12/24/2024 17:18:53 metoprolo l succinate ER 200 mg tablet,ex tended release 24 hr 2024 [facility] #09869, [address], [place], [id number], 12/24/2024 17:18:54 Breo Ellipta 200 mcg-25 mcg/dose powder for inhalatio n 2024 [facility] #14179, [address], [place], [id number], 12/24/2024 17:18:54 atorvasta tin 40 mg tablet 2024 025 PAUL[facility] #73702, [address], [place], [id number], 12/24/2024 17:18:54 hydralazi ne 25 mg tablet 2022 023 [facility] #94696, [address], [place], [id number], 12/24/2024 17:04:14 metoprolo l succinate ER 100 mg tablet,ex tended release 24 hr 2022 023 [facility] #31141, [address], [place], [id number], 12/24/2024 17:02:30 amlodipin e 10 mg tablet 2022 023 [email or web address] [facility] #52271, [address], [place], [id number], 12/24/2024 16:46:13 Patient TargetsNo targets recorded. 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 malignant neoplasm of colon Referring Physician: Gia Jacobs, Family Medicine, Encounter Date: 10/24/2022 Results Created Date Observation Date Name Description Value Unit Range Abnormal Flag Note LastModifiedBy Organization Detail LastModifiedTime 12/20/19 23 12/19/2022 LIPID PANEL WITH LDL/H DL RATIO cholesterol, total 130.5 mg/dL 140.0- 200.0 below low normal Not Available [facility] ([facility]) [address] [facility] [address], [place], [address], 12/20/2022 13:11:05 12/20/19 23 12/19/2022 LIPID PANEL WITH LDL/H DL RATIO triglyceride s 66 mg/dL <=150 Not Available [facility] ([facility]) [address] [place], [address], 12/20/2022 13:11:05 12/20/19 23 12/19/2022 LIPID PANEL WITH LDL/H DL RATIO HDL cholesterol 54.1 mg/dL 40.0-1 00.0 Not Available [facility] ([facility]) [address] [place], [address], 12/20/2022 13:11:05 12/20/19 23 12/19/2022 LIPID PANEL WITH LDL/H DL RATIO VLDL cholesterol cornelio 13.20 mg/dL 5.00-4 0.00 Not Available [facility] ([facility]) [address] [place], [address], 12/20/2022 13:11:05 12/20/19 23 12/19/2022 LIPID PANEL WITH LDL/H DL RATIO LDL chol calc ([facility]) 62.7 Not Available [facility] ([facility]) [address] [place], [address], 12/20/2022 13:11:05 12/20/19 23 12/19/2022 LIPID PANEL WITH LDL/H DL RATIO LDL/HDL ratio 1.2 Not Available [facility] ([facility]) [address] [place], [address], 12/20/2022 13:11:05 12/20/19 23 12/20/2022 COMP. METAB OLIC PANEL (14) glucose 98 mg/dL 65-99 ANION GP 24.0 mmol/ L N OSMOL 304.0 mOsM/ L H REFER ENCE RANGE : 275.0 -301. 0 Not Available [facility] ([facility]) [address] [place], [address], 12/20/2022 13:11:06 12/20/19 23 12/20/2022 COMP. METAB OLIC PANEL (14) BUN 72 mg/dL 8-26 panic high Not Available [facility] ([facility]) [address] [facility] [place], [address], 12/20/2022 13:11:06 12/20/19 23 12/20/2022 COMP. METAB OLIC PANEL (14) creatinine 5.47 mg/dL 0.50-1 .40 panic high Not Available [facility] ([facility]) [address] [facility] [place], [address], 12/20/2022 13:11:06 12/20/19 23 12/20/2022 COMP. METAB OLIC PANEL (14) eGFR 11 mL/mi n/1.7 3 >=60 below low normal Not Available [facility] ([facility]) [address] [facility] [place], [address], 12/20/2022 13:11:06 12/20/19 23 12/20/2022 COMP. METAB OLIC PANEL (14) BUN/creatini ne ratio 13.1 Not Available [facility] ([facility]) [address] [facility] [place], [address], 12/20/2022 13:11:06 12/20/19 23 12/20/2022 COMP. METAB OLIC PANEL (14) sodium 141.9 mmol/ L 136.0- 144.0 Not Available [facility] ([facility]) [address] [facility] [place], [address], 12/20/2022 13:11:06 12/20/19 23 12/20/2022 COMP. METAB OLIC PANEL (14) potassium 5.0 mmol/ L 3.5-5. 3 Not Available [facility] ([facility]) [address] [facility] [place], [address], 12/20/2022 13:11:06 12/20/19 23 12/20/2022 COMP. METAB OLIC PANEL (14) chloride 105 mmol/ l 101-11 1 Not Available [facility] ([facility]) [address] [facility] [place], [address], 12/20/2022 13:11:06 12/20/19 23 12/20/2022 COMP. METAB OLIC PANEL (14) carbon dioxide, total 17.9 mmol/ L 21.0-3 2.0 below low normal Not Available [facility] ([facility]) [address] [facility] [place], [address], 12/20/2022 13:11:06 12/20/19 23 12/20/2022 COMP. METAB OLIC PANEL (14) calcium 9.7 mg/dL 8.2-10 .0 Not Available [facility] ([facility]) [address] [facility] [place], [address], 12/20/2022 13:11:06 12/20/19 23 12/20/2022 COMP. METAB OLIC PANEL (14) protein, total 6.6 g/dL 6.7-8. 2 below low normal Not Available [facility] ([facility]) [address] [facility] [place], [address], 12/20/2022 13:11:06 12/20/19 23 12/20/2022 COMP. METAB OLIC PANEL (14) albumin 4.0 g/dL 3.5-5. 5 Not Available [facility] ([facility]) [address] [facility] [place], [address], 12/20/2022 13:11:06 12/20/19 23 12/20/2022 COMP. METAB OLIC PANEL (14) globulin, total 2.6 g/dL 1.5-4. 5 Not Available [facility] ([facility]) [address] [facility] [place], [address], 12/20/2022 13:11:06 12/20/19 23 12/20/2022 COMP. METAB OLIC PANEL (14) A/G ratio 1.6 Not Available [facility] ([facility]) [address] [place], [address], 12/20/2022 13:11:06 12/20/19 23 12/20/2022 COMP. METAB OLIC PANEL (14) bilirubin, total 0.3 mg/dL 0.0-1. 2 Not Available [facility] ([facility]) [address] [place], [address], 12/20/2022 13:11:06 12/20/19 23 12/20/2022 COMP. METAB OLIC PANEL (14) alkaline phosphatase 87.0 IU/L 42.0-1 21.0 Not Available [facility] ([facility]) [address] [place], [address], 12/20/2022 13:11:06 12/20/19 23 12/20/2022 COMP. METAB OLIC PANEL (14) AST (SGOT) 16.3 U/L 10.0-4 2.0 Not Available [facility] ([facility]) [address] [place], [address], 12/20/2022 13:11:06 12/20/19 23 12/20/2022 COMP. METAB OLIC PANEL (14) ALT (SGPT) 20.7 U/L 10.0-6 0.0 Not Available [facility] ([facility]) [address] [place], [address], 12/20/2022 13:11:06 12/20/19 23 12/20/2022 TSH+F REE T4 TSH 1.010 uIU/m L 0.450- 4.500 Not Available [facility] ([facility]) [address] [place], [address], 12/20/2022 17:09:35 12/20/19 23 12/20/2022 TSH+F REE T4 T4,free(dire ct) 1.88 NG/dL 0.82-1 .77 above high normal Not Available [facility] ([facility]) [address], [place], [address], 12/20/2022 17:09:35 12/20/19 23 12/20/2022 HEMOG LOBIN A1C hemoglobin A1C - % Test not perfo rmed. No laven deepti top tube submi tted. Predi abete s: 5.7 - 6.4 Diabe daniel: >6.4 Glyce david contr ol for adult s with diabe daniel: <7.0 Not Available [facility] ([facility]) [address], [place], [address], 12/20/2022 17:09:36 12/20/19 23 12/20/2022 VITAM IN D, 25-HY DROXY vitamin D, 25-hydroxy 34.6 NG/mL 30.0-1 00.0 Vitam in D defic iency has been defin ed by the Insti tute of Medic ine and an Endoc rine Socie ty pract ice guide line as a level of serum 25-OH vitam in D less than 20 ng/mL (1,2) . The Endoc rine Socie ty went on to furth er defin e vitam in D insuf ficie ncy as a level betwe en 21 and 29 ng/mL (2). 1. IOM (Inst itute of Medic ine). 2009. Dieta ry refer ence etta es for calci um and D. Delon ferrer [place]: The Natio nal [facility] Press . 2. Kris emerson MF, Britney choe [place], Chas off-F errar i MERCHANT, et al. Evalu ation , treat ment, and preve ntion of vitam in D defic iency : an Endoc rine Socie ty clini cornelio pract ice guide line. JCEM. 2010; 96(7) :1911 -30. Not Available [facility] ([facility]) [address], [place], [address], 12/20/2022 17:09:37 03/06/20 23 12/20/2022 CBC WITH DIFFE RENTI AL/PL ATELE T WBC - x10e3 /uL Test not perfo rmed. No laven deepti top tube submi tted. Not Available [facility] ([facility]) [address], [place], [address], 12/20/2022 17:09:40 12/20/19 23 12/20/2022 CBC WITH DIFFE RENTI AL/PL ATELE T RBC - Test not perfo rmed Not Available [facility] ([facility]) [address] [place], [address], 12/20/2022 17:09:40 12/20/19 23 12/20/2022 CBC WITH DIFFE RENTI AL/PL ATELE T hemoglobin - Test not perfo rmed Not Available [facility] ([facility]) [address], [place], [address], 12/20/2022 17:09:40 12/20/19 23 12/20/2022 CBC WITH DIFFE RENTI AL/PL ATELE T hematocrit - Test not perfo rmed Not Available [facility] ([facility]) [address], [place], [address], 12/20/2022 17:09:40 12/20/19 23 12/20/2022 CBC WITH DIFFE RENTI AL/PL ATELE T platelets - Test not perfo rmed Not Available [facility] ([facility]) [address] [place], [address], 12/20/2022 17:09:40 12/20/19 23 12/20/2022 CBC WITH DIFFE RENTI AL/PL ATELE T neutrophils - Test not perfo rmed Not Available [facility] ([facility]) [address] [place], [address], 12/20/2022 17:09:40 12/20/19 23 12/20/2022 CBC WITH DIFFE RENTI AL/PL ATELE T lymphs - Test not perfo rmed Not Available [facility] ([facility]) [address] [place], [address], 12/20/2022 17:09:40 12/20/19 23 12/20/2022 CBC WITH DIFFE RENTI AL/PL ATELE T monocytes - Test not perfo rmed Not Available [facility] ([facility]) [address] [place], [address], 12/20/2022 17:09:40 12/20/19 23 12/20/2022 CBC WITH DIFFE RENTI AL/PL ATELE T eos - Test not perfo rmed Not Available [facility] ([facility]) [address], [place], [address], 12/20/2022 17:09:40 12/20/19 23 12/20/2022 CBC WITH DIFFE RENTI AL/PL ATELE T lymphs (absolute) - Test not perfo rmed Not Available [facility] ([facility]) [address] [place], [address], 12/20/2022 17:09:40 12/20/19 23 12/20/2022 CBC WITH DIFFE RENTI AL/PL ATELE T eos (absolute) - Test not perfo rmed Not Available [facility] ([facility]) [address] [place], [address], 12/20/2022 17:09:40 12/20/19 23 12/20/2022 CBC WITH DIFFE RENTI AL/PL ATELE T baso (absolute) - Test not perfo rmed Not Available [facility] ([facility]) [address] [place], [address], 12/20/2022 17:09:40 12/20/19 23 12/20/2022 VITAM IN B12 AND FOLAT E vitamin B12 635 pg/mL 232-12 45 Not Available [facility] ([facility]) [address] [facility], [place], [address], 12/20/2022 17:09:36 12/20/19 23 12/20/2022 VITAM IN B12 AND FOLAT E folate (folic acid), serum 6.7 NG/mL >3.0 A serum folat e lynnette ntrat ion of less than 3.1 ng/mL is consi dered to repre sent clini cornelio defic iency . Not Available [facility] ([facility]) [address] [facility], [place], [address], 12/20/2022 17:09:36 12/20/1912/20/2022 NT-KS OBNP nt-probnp 4880 pg/mL 0-210 above high normal The follo wing cut-p oints have been sugge sted for the use of proBN P for the diagn ostic evalu ation of heart failu re (HF) in patie nts with acute dyspn ea: Modal ity Age Optim al Cut (year s) Point ----- ----- ----- ----- ----- ----- ----- ----- ----- ----- ---- Diagn osis (rule in HF) <50 450 pg/mL 50 - 75 900 pg/mL >75 1800 pg/mL Exclu yuriy (rule out HF) Age indep enden t 300 pg/mL Not Available [facility] ([facility]) [address] [facility], [place], [address], 12/20/2022 17:09:35 12/20/19 23 12/20/2022 SPECI MEN STATU S REPOR T specimen status report TNP Test not perfo rmed. No laven deepti top tube submi tted. TEST: [id number] 3 Hemog lobin A1c Not Available [facility] ([facility]) [address], [place], [address], 12/20/2022 17:09:34 12/20/19 23 12/20/2022 SPECI MEN STATU S REPOR T specimen status report TNP No laven deepti top tube submi tted. TEST: 9 CBC With Diffe renti al/Pl atele t Not Available [facility] ([facility]) [address], [place], [address], 12/20/2022 13:11:05 12/20/19 23 12/19/2022 HbA1c (hemo globi n A1c), blood HbA1c 5.3 Not Available In-Office Order Internal Use Only DO Not Attach Compendium DO Not Attach Compendium, Do Not Delete/merge, [id number] 12/19/2022 11:44:02 12/20/19 23 12/20/2022 SPECI MEN STATU S REPOR T specimen status report TNP Test not perfo rmed. No laven deepti top tube submi tted. 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[employer] [facility] Not Available Not Available 12/24/2024 17:32:29 11/14/19 25 11/14/2024 CBC W Auto Diffe renti al panel - Blood RBC 2.24 text: 4.50 - 5.40 M/uL low RBC 2.24 (L) 4.50 - 5.40 M/uL 11/14 2:15 AM 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[employer] [facility] Not Available Not Available 12/24/2024 17:32:29 11/14/19 25 11/14/2024 CBC W Auto Diffe renti al panel - Blood hemoglobin 7.8 g/dL low: 13.6g/ dLhigh : 16.5g/ dL low HEMOG LOBIN 7.8 (L) 13.6 - 16.5 g/dL 11/14 2:15 AM [employer] [employer] Not Available Not Available 12/24/2024 17:32:29 11/14/19 25 11/14/2024 CBC W Auto Diffe nathanti al panel - Blood hematocrit [volume fraction] of blood by automated count 24.6 % low: 40%hig h: 48% low HEMAT OCRIT 24.6 (L) 40.0 - 48.0 % 11/14 2:15 AM [employer] [facility] Not Available Not Available 12/24/2024 17:32:29 11/14/19 25 11/14/2024 CBC W Auto Diffe nathanti al panel - Blood MCV 109.8 fL low: 82fLhi gh: 99fL high MCV 109.8 (H) 82.0 - 99.0 fL 11/14 2:15 AM [facility] Not Available Not Available 12/24/2024 17:32:29 11/14/19 25 11/14/2024 CBC W Auto Diffe nathanti al panel - Blood MCH 34.8 pg low: 27.2pg high: 32.6pg high MCH 34.8 (H) 27.2 - 32.6 pg 11/14 2:15 AM [facility] Not Available Not Available 12/24/2024 17:32:29 11/14/19 25 11/14/2024 CBC W Auto Diffe renti al panel - Blood MCHC 31.7 g/dL low: 31.5g/ dLhigh : 35.5g/ dL MCHC 31.7 31.5 - 35.5 g/dL 11/14 2:15 AM [facility] Not Available Not Available 12/24/2024 17:32:29 11/14/19 25 11/14/2024 CBC W Auto Diffe renti al panel - Blood RDW 15 % low: 11.5%h igh: 14.5% high RDW 15.0 (H) 11.5 - 14.5 % 11/14 2:15 AM [facility] Not Available Not Available 12/24/2024 17:32:29 11/14/19 25 11/14/2024 CBC W Auto Diffe renti al panel - Blood RDW-stdev 60.4 fL low: 37.1fL high: 48.7fL high RDW-S TDEV 60.4 (H) 37.1 - 48.7 fL 11/14 2:15 AM [facility] Not Available Not Available 12/24/2024 17:32:29 11/14/19 25 11/14/2024 CBC W Auto Diffe renti al panel - Blood platelets [#/volume] in blood by automated count 360 K/uL low: 140K/u Lhigh: 350K/u L high PLATE LETS 360 (H) 140 - 350 K/uL 11/14 2:15 AM [facility] Not Available Not Available 12/24/2024 17:32:29 11/14/19 25 11/14/2024 CBC W Auto Diffe renti al panel - Blood MPV 10.2 fL low: 9.3fLh igh: 12.4fL MPV 10.2 9.3 - 12.4 fL 11/14 2:15 AM [facility] Not Available Not Available 12/24/2024 17:32:29 11/14/19 25 11/14/2024 CBC W Auto Diffe renti al panel - Blood neutrophils 78 % NEUTR OPHIL S 78 % 11/14 2:15 AM [facility] Not Available Not Available 12/24/2024 17:32:29 11/14/19 25 11/14/2024 CBC W Auto Diffe renti al panel - Blood lymphocytes/ 100 leukocytes in blood by automated count 10 % LYMPH OCYTE S 10 % 11/14 2:15 AM [facility] Not Available Not Available 12/24/2024 17:32:29 11/14/19 25 11/14/2024 CBC W Auto Diffe renti al panel - Blood monocytes 10 % MONOC YTES 10 % 11/14 2:15 AM 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[employer] [facility] Not Available Not Available 12/24/2024 17:32:29 11/14/19 25 11/14/2024 CBC W Auto Diffe renti al panel - Blood eosinophils 1 % EOSIN OPHIL S 1 % 11/14 2:15 AM 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[employer] [facility] Not Available Not Available 12/24/2024 17:32:29 11/14/19 25 11/14/2024 CBC W Auto Diffe renti al panel - Blood basophils 1 % BASOP HILS 1 % 11/14 2:15 AM [facility] Not Available Not Available 12/24/2024 17:32:29 11/14/19 25 11/14/2024 CBC W Auto Diffe renti al panel - Blood immature granulocytes 1 % IMMAT URE GRANU LOCYT ES 1 % 11/14 2:15 AM [facility] Not Available Not Available 12/24/2024 17:32:29 11/14/19 25 11/14/2024 CBC W Auto Diffe renti al panel - Blood neutrophils [#/volume] in blood by automated count 9.97 K/uL low: 1.9K/u Lhigh: 7K/uL high NEUTR OPHIL ABSOL VENETIE 9.97 (H) 1.90 - 7.00 K/uL 11/14 2:15 AM [facility] Not Available Not Available 12/24/2024 17:32:29 11/14/19 25 11/14/2024 CBC W Auto Diffe renti al panel - Blood lymphocyte absolute 1.21 K/uL low: 0.7K/u Lhigh: 4.5K/u L LYMPH OCYTE ABSOL VENETIE 1.21 0.70 - 4.50 K/uL 11/14 2:15 AM [employer] Not Available Not Available 12/24/2024 17:32:29 11/14/19 25 11/14/2024 CBC W Auto Diffe renti al panel - Blood monocyte absolute 1.25 K/uL low: 0.1K/u Lhigh: 1.3K/u L MONOC YTE ABSOL VENETIE 1.25 0.10 - 1.30 K/uL 11/14 2:15 AM 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[employer] [facility] Not Available Not Available 12/24/2024 17:32:29 11/14/19 25 11/14/2024 CBC W Auto Diffe renti al panel - Blood eosinophil absolute 0.17 K/uL low: 0K/uLh igh: 0.7K/u L EOSIN OPHIL ABSOL VENETIE 0.17 0.00 - 0.70 K/uL 11/14 2:15 AM 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[employer] [facility] Not Available Not Available 12/24/2024 17:32:29 11/14/19 25 11/14/2024 CBC W Auto Diffe renti al panel - Blood basophils absolute 0.06 K/uL low: 0K/uLh igh: 0.2K/u L BASOP HILS ABSOL VENETIE 0.06 0.00 - 0.20 K/uL 11/14 2:15 AM 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[employer] [facility] Not Available Not Available 12/24/2024 17:32:29 11/14/19 25 11/14/2024 CBC W Auto Diffe renti al panel - Blood immature granulocytes absolute 0.11 K/uL low: 0K/uLh igh: 0.03K/ uL high IMMAT URE GRANU LOCYT ES ABSOL VENETIE 0.11 (H) 0.00 - 0.03 K/uL 11/14 2:15 AM [facility] Not Available Not Available 12/24/2024 17:32:29 11/14/19 25 11/14/2024 CBC W Auto Diffe renti al panel - Blood interpretati on and review of laboratory results Abnorm al Not Available Not Available 17:32:29 11/14/19 25 11/14/2024 Compr ehens francisco metab olic 1999 panel - Serum or Plasm a sodium [moles/volum e] in serum or plasma 129 mmol/ L low: 136mmo l/Lhig h: 145mmo l/L low SODIU M 129 (L) 136 - 145 mmol/ L 11/14 2:44 AM [employer] [facility] Not Available Not Available 12/24/2024 17:32:07 11/14/19 25 11/14/2024 Compr ehens francisco metab olic 1999 panel - Serum or Plasm a potassium [moles/volum e] in serum or plasma 4.2 mmol/ L low: 3.4mmo l/Lhig h: 5.1mmo l/L POTAS SIUM 4.2 3.4 - 5.1 mmol/ L 11/14 2:44 AM [employer] Not Available Not Available 12/24/2024 17:32:07 11/14/19 25 11/14/2024 Compr ehens [place] metab olic 1999 panel - Serum or Plasm a chloride 91 mmol/ L low: 98mmol /Lhigh : 107mmo l/L low [facility]T 91 (L) 98 - 107 mmol/ L 11/14 2:44 AM [employer] [facility] Not Available Not Available 12/24/2024 17:32:07 11/14/19 25 11/14/2024 Compr ehens [place] metab olic 1999 panel - Serum or Plasm a carbon dioxide, total [moles/volum e] in serum or plasma 25 mmol/ L low: 22mmol /Lhigh : 29mmol /L CO2 25 22 - 29 mmol/ L 11/14 2:44 AM [employer] [facility] Not Available Not Available 12/24/2024 17:32:07 11/14/19 25 11/14/2024 Compr ehens [place] metab olic 1999 panel - Serum or Plasm a calcium 9.3 mg/dL low: 8.6mg/ dLhigh : 10.4mg /dL CALCI UM 9.3 8.6 - 10.4 mg/dL 11/14 2:44 AM [employer] [facility] Not Available Not Available 12/24/2024 17:32:07 11/14/19 25 11/14/2024 Compr ehens [place] metab olic 1999 panel - Serum or Plasm a BUN 44 mg/dL low: 6mg/dL high: 20mg/d L high BUN 44 (H) 6 - 20 mg/dL 11/14 2:44 AM [employer] [facility] Not Available Not Available 12/24/2024 17:32:07 11/14/19 25 11/14/2024 Compr ehens [place] metab olic 1999 panel - Serum or Plasm a creatinine [mass/volume ] in serum or plasma 7.14 mg/dL low: 0.67mg /dLhig h: 1.17mg /dL high CREAT ININE 7.14 (H) 0.67 - 1.17 mg/dL 11/14 2:44 AM [employer] [facility] Not Available Not Available 12/24/2024 17:32:07 11/14/19 25 11/14/2024 Compr ehens francisco metab olic 1999 panel - Serum or Plasm a glucose [mass/volume ] in serum or plasma 100 mg/dL low: 74mg/d Lhigh: 99mg/d L high GLUCO SE 100 (H) 74 - 99 mg/dL 11/14 2:44 AM [facility] Not Available Not Available 12/24/2024 17:32:07 11/14/19 25 11/14/2024 Compr ehens francisco metab olic 1999 panel - Serum or Plasm a total protein 6.1 g/dL low: 6.3g/d Lhigh: 8.7g/d L low TOTAL PROTE IN 6.1 (L) 6.3 - 8.7 g/dL 11/14 2:44 AM [facility] Not Available Not Available 12/24/2024 17:32:07 11/14/19 25 11/14/2024 Compr ehens francisco metab olic 2000 panel - Serum or Plasm a albumin 3.1 g/dL low: 3.5g/d Lhigh: 5.2g/d L low ALBUM IN 3.1 (L) 3.5 - 5.2 g/dL 11/14 2:44 AM [facility] Not Available Not Available 12/24/2024 17:32:07 11/14/19 25 11/14/2024 Compr ehens francisco metab olic 1999 panel - Serum or Plasm a bilirubin total low: 0.2mg/ dLhigh : 1.1mg/ dL low BILIR UBIN TOTAL <0.2 (L) 0.2 - 1.1 mg/dL 11/14 2:44 AM [facility] Not Available Not Available 12/24/2024 17:32:07 11/14/19 25 11/14/2024 Compr ehens francisco metab olic 2000 panel - Serum or Plasm a alkaline phosphatase 67 U/L low: 40U/Lh igh: 150U/L ALKAL INE PHOSP HATAS E 67 40 - 150 U/L 11/14 2:44 AM [facility] Not Available Not Available 12/24/2024 17:32:07 11/14/19 25 11/14/2024 Compr ehens francisco metab olic 1999 panel - Serum or Plasm a AST 20 U/L low: 0U/Lhi gh: 41U/L AST 20 0 - 41 U/L 11/14 2:44 AM [facility] Not Available Not Available 12/24/2024 17:32:07 11/14/19 25 11/14/2024 Compr ehens francisco metab olic 1999 panel - Serum or Plasm a alanine aminotransfe rase [enzymatic activity/vol ume] in blood 17 U/L low: 0U/Lhi gh: 41U/L ALT 17 0 - 41 U/L 11/14 2:44 AM [facility] Not Available Not Available 12/24/2024 17:32:07 11/14/19 25 11/14/2024 Compr ehens francisco metab olic 1999 panel - Serum or Plasm a glomerular filtration rate/1.73 sq M.predicted [volume rate/area] in serum, plasma or blood by creatinine-b ased formula (CKD-epi 2020) 8 text: >=60 mL/min /1.73 sq meter low GFR 8 (L) >=60 mL/mi n/1.7 3 sq meter 11/14 2:44 AM 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 Not Available Not Available 12/24/2024 17:32:07 11/14/19 25 11/14/2024 Compr ehens francisco metab olic 1999 panel - Serum or Plasm a anion gap 13 mmol/ L low: 8mmol/ Lhigh: 16mmol /L ANION GAP 13 8 - 16 mmol/ L 11/14 2:44 AM 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[employer] [facility] Not Available Not Available 12/24/2024 17:32:07 11/14/19 25 11/14/2024 Compr ehens francisco metab olic 2000 panel - Serum or Plasm a interpretati on and review of laboratory results Abnorm al Not Available Not Available 17:32:07 11/15/19 25 11/20/2024 Bacte shaneka ident ified in Blood by Cultu re bacteria identified in specimen by culture No growth BLOOD CULTU RE No growt h 11/20 9:03 PM 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 Not Available Not Available 12/24/2024 17:32:07 11/15/19 25 11/20/2024 Bacte shaneka ident ified in Blood by Cultu re interpretati on and review of laboratory results Normal Not Available Not Available 12/14 17:32:07 11/15/19 25 11/20/2024 Bacte shaneka ident ified in Blood by Cultu re bacteria identified in specimen by culture No growth BLOOD CULTU RE No growt h 11/20 9:03 PM 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 Not Available Not Available 12/24/2024 17:32:29 11/15/19 25 11/20/2024 Bacte shaneka ident ified in Blood by Cultu re interpretati on and review of laboratory results Normal Not Available Not Available 12/14 17:32:29 11/15/19 25 11/15/2024 Renal funct ion 1999 panel - Serum or Plasm a sodium [moles/volum e] in serum or plasma 130 mmol/ L low: 136mmo l/Lhig h: 145mmo l/L low SODIU M 130 (L) 136 - 145 mmol/ L 11/15 2:27 AM [facility] Not Available Not Available 12/24/2024 17:32:29 11/15/19 25 11/15/2024 Renal funct ion 1999 panel - Serum or Plasm a potassium [moles/volum e] in serum or plasma 4.3 mmol/ L low: 3.4mmo l/Lhig h: 5.1mmo l/L POTAS SIUM 4.3 3.4 - 5.1 mmol/ L 11/15 2:27 AM [facility] Not Available Not Available 12/24/2024 17:32:29 11/15/19 25 11/15/2024 Renal funct ion 1999 panel - Serum or Plasm a chloride 94 mmol/ L low: 98mmol /Lhigh : 107mmo l/L low CHLOR BURT 94 (L) 98 - 107 mmol/ L 11/15 2:27 AM [facility] Not Available Not Available 12/24/2024 17:32:29 11/15/19 25 11/15/2024 Renal funct ion 1999 panel - Serum or Plasm a carbon dioxide, total [moles/volum e] in serum or plasma 20 mmol/ L low: 22mmol /Lhigh : 29mmol /L low CO2 20 (L) 22 - 29 mmol/ L 11/15 2:27 AM [facility] Not Available Not Available 12/24/2024 17:32:29 11/15/19 25 11/15/2024 Renal funct ion 1999 panel - Serum or Plasm a calcium 9.3 mg/dL low: 8.6mg/ dLhigh : 10.4mg /dL CALCI UM 9.3 8.6 - 10.4 mg/dL 11/15 2:27 AM [facility] Not Available Not Available 12/24/2024 17:32:29 11/15/19 25 11/15/2024 Renal funct ion 1999 panel - Serum or Plasm a BUN 51 mg/dL low: 6mg/dL high: 20mg/d L high BUN 51 (H) 6 - 20 mg/dL 11/15 2:27 AM [facility] Not Available Not Available 12/24/2024 17:32:29 11/15/19 25 11/15/2024 Renal funct ion 1999 panel - Serum or Plasm a creatinine [mass/volume ] in serum or plasma 8.68 mg/dL low: 0.67mg /dLhig h: 1.17mg /dL high CREAT ININE 8.68 (H) 0.67 - 1.17 mg/dL 11/15 2:27 AM [facility] Not Available Not Available 12/24/2024 17:32:29 11/15/19 25 11/15/2024 Renal funct ion 1999 panel - Serum or Plasm a glucose [mass/volume ] in serum or plasma 103 mg/dL low: 74mg/d Lhigh: 99mg/d L high GLUCO SE 103 (H) 74 - 99 mg/dL 11/15 2:27 AM [facility] Not Available Not Available 12/24/2024 17:32:29 11/15/19 25 11/15/2024 Renal funct ion 1999 panel - Serum or Plasm a albumin 2.9 g/dL low: 3.5g/d Lhigh: 5.2g/d L low ALBUM IN 2.9 (L) 3.5 - 5.2 g/dL 11/15 2:27 AM [facility] Not Available Not Available 12/24/2024 17:32:29 11/15/19 25 11/15/2024 Renal funct ion 1999 panel - Serum or Plasm a phosphorus 4.4 mg/dL low: 2.5mg/ dLhigh : 4.5mg/ dL PHOSP HORUS 4.4 2.5 - 4.5 mg/dL 11/15 2:27 AM [facility] Not Available Not Available 12/24/2024 17:32:29 11/15/19 25 11/15/2024 Renal funct ion 1999 panel - Serum or Plasm a glomerular filtration rate/1.73 sq M.predicted [volume rate/area] in serum, plasma or blood by creatinine-b ased formula (CKD-epi 2020) 6 text: >=60 mL/min /1.73 sq meter low GFR 6 (L) >=60 mL/mi n/1.7 3 sq meter 11/15 2:27 AM [employer]FS ([employer] Not Available Not Available 12/24/2024 17:32:29 11/15/19 25 11/15/2024 Renal funct ion 1999 panel - Serum or Plasm a anion gap 16 mmol/ L low: 8mmol/ Lhigh: 16mmol /L ANION GAP 16 8 - 16 mmol/ L 11/15 2:27 AM [employer]FS ([employer] Not Available Not Available 12/24/2024 17:32:29 11/15/19 25 11/15/2024 Renal funct ion 1999 panel - Serum or Plasm a interpretati on and review of laboratory results Abnorm al Not Available Not Available 17:32:29 11/15/19 25 11/15/2024 CBC W Auto Diffe renti al panel - Blood leukocytes [#/volume] in blood 11.5 K/uL low: 4K/uLh igh: 9.8K/u L high WBC 11.5 (H) 4.0 - 9.8 K/uL 11/15 2:35 AM [facility] Not Available Not Available 12/24/2024 17:32:29 11/15/19 25 11/15/2024 CBC W Auto Diffe renti al panel - Blood RBC 2.23 text: 4.50 - 5.40 M/uL low RBC 2.23 (L) 4.50 - 5.40 M/uL 11/15 2:35 AM [employer] [facility] Not Available Not Available 12/24/2024 17:32:29 11/15/19 25 11/15/2024 CBC W Auto Diffe renti al panel - Blood hemoglobin 7.6 g/dL low: 13.6g/ dLhigh : 16.5g/ dL low HEMOG LOBIN 7.6 (L) 13.6 - 16.5 g/dL 11/15 2:35 AM [facility] Not Available Not Available 12/24/2024 17:32:29 11/15/19 25 11/15/2024 CBC W Auto Diffe renti al panel - Blood hematocrit [volume fraction] of blood by automated count 23.9 % low: 40%hig h: 48% low HEMAT OCRIT 23.9 (L) 40.0 - 48.0 % 11/15 2:35 AM [employer] [facility] Not Available Not Available 12/24/2024 17:32:29 11/15/19 25 11/15/2024 CBC W Auto Diffe renti al panel - Blood MCV 107.2 fL low: 82fLhi gh: 99fL high MCV 107.2 (H) 82.0 - 99.0 fL 11/15 2:35 AM [employer] [facility] Not Available Not Available 12/24/2024 17:32:29 11/15/19 25 11/15/2024 CBC W Auto Diffe renti al panel - Blood MCH 34.1 pg low: 27.2pg high: 32.6pg high MCH 34.1 (H) 27.2 - 32.6 pg 11/15 2:35 AM [employer] [facility] Not Available Not Available 12/24/2024 17:32:29 11/15/19 25 11/15/2024 CBC W Auto Diffe renti al panel - Blood MCHC 31.8 g/dL low: 31.5g/ dLhigh : 35.5g/ dL MCHC 31.8 31.5 - 35.5 g/dL 11/15 2:35 AM [facility] Not Available Not Available 12/24/2024 17:32:29 11/15/19 25 11/15/2024 CBC W Auto Diffe renti al panel - Blood RDW 14.9 % low: 11.5%h igh: 14.5% high RDW 14.9 (H) 11.5 - 14.5 % 11/15 2:35 AM 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[employer] [facility] Not Available Not Available 12/24/2024 17:32:29 11/15/19 25 11/15/2024 CBC W Auto Diffe renti al panel - Blood RDW-stdev 58.8 fL low: 37.1fL high: 48.7fL high RDW-S TDEV 58.8 (H) 37.1 - 48.7 fL 11/15 2:35 AM 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[employer] [facility] Not Available Not Available 12/24/2024 17:32:29 11/15/19 25 11/15/2024 CBC W Auto Diffe renti al panel - Blood platelets [#/volume] in blood by automated count 391 K/uL low: 140K/u Lhigh: 350K/u L high PLATE LETS 391 (H) 140 - 350 K/uL 11/15 2:35 AM 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[employer] [facility] Not Available Not Available 12/24/2024 17:32:29 11/15/19 25 11/15/2024 CBC W Auto Diffe renti al panel - Blood MPV 9.8 fL low: 9.3fLh igh: 12.4fL MPV 9.8 9.3 - 12.4 fL 11/15 2:35 AM [facility] Not Available Not Available 12/24/2024 17:32:29 11/15/19 25 11/15/2024 CBC W Auto Diffe renti al panel - Blood neutrophils 81 % NEUTR OPHIL S 81 % 11/15 2:35 AM [facility] Not Available Not Available 12/24/2024 17:32:29 11/15/19 25 11/15/2024 CBC W Auto Diffe renti al panel - Blood lymphocytes/ 100 leukocytes in blood by automated count 7 % LYMPH OCYTE S 7 % 11/15 2:35 AM [facility] Not Available Not Available 12/24/2024 17:32:29 11/15/19 25 11/15/2024 CBC W Auto Diffe renti al panel - Blood monocytes 8 % MONOC YTES 8 % 11/15 2:35 AM 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[employer] [facility] Not Available Not Available 12/24/2024 17:32:29 11/15/19 25 11/15/2024 CBC W Auto Diffe renti al panel - Blood eosinophils 2 % EOSIN OPHIL S 2 % 11/15 2:35 AM 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[employer] [facility] Not Available Not Available 12/24/2024 17:32:29 11/15/19 25 11/15/2024 CBC W Auto Diffe renti al panel - Blood basophils 1 % BASOP HILS 1 % 11/15 2:35 AM [employer] [facility] Not Available Not Available 12/24/2024 17:32:29 11/15/19 25 11/15/2024 CBC W Auto Diffe renti al panel - Blood immature granulocytes 1 % IMMAT URE GRANU LOCYT ES 1 % 11/15 2:35 AM 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[employer] [facility] Not Available Not Available 12/24/2024 17:32:29 11/15/19 25 11/15/2024 CBC W Auto Diffe renti al panel - Blood neutrophils [#/volume] in blood by automated count 9.37 K/uL low: 1.9K/u Lhigh: 7K/uL high NEUTR OPHIL ABSOL VENETIE 9.37 (H) 1.90 - 7.00 K/uL 11/15 2:35 AM [facility] Not Available Not Available 12/24/2024 17:32:29 11/15/19 25 11/15/2024 CBC W Auto Diffe renti al panel - Blood lymphocyte absolute 0.82 K/uL low: 0.7K/u Lhigh: 4.5K/u L LYMPH OCYTE ABSOL VENETIE 0.82 0.70 - 4.50 K/uL 11/15 2:35 AM [facility] Not Available Not Available 12/24/2024 17:32:29 11/15/19 25 11/15/2024 CBC W Auto Diffe renti al panel - Blood monocyte absolute 0.94 K/uL low: 0.1K/u Lhigh: 1.3K/u L MONOC YTE ABSOL VENETIE 0.94 0.10 - 1.30 K/uL 11/15 2:35 AM [facility] Not Available Not Available 12/24/2024 17:32:29 11/15/19 25 11/15/2024 CBC W Auto Diffe renti al panel - Blood eosinophil absolute 0.23 K/uL low: 0K/uLh igh: 0.7K/u L EOSIN OPHIL ABSOL VENETIE 0.23 0.00 - 0.70 K/uL 11/15 2:35 AM [facility] Not Available Not Available 12/24/2024 17:32:29 11/15/19 25 11/15/2024 CBC W Auto Diffe renti al panel - Blood basophils absolute 0.07 K/uL low: 0K/uLh igh: 0.2K/u L BASOP HILS ABSOL VENETIE 0.07 0.00 - 0.20 K/uL 11/15 2:35 AM [facility] Not Available Not Available 12/24/2024 17:32:29 11/15/19 25 11/15/2024 CBC W Auto Diffe renti al panel - Blood immature granulocytes absolute 0.09 K/uL low: 0K/uLh igh: 0.03K/ uL high IMMAT URE GRANU LOCYT ES ABSOL VENETIE 0.09 (H) 0.00 - 0.03 K/uL 11/15 2:35 AM [facility] Not Available Not Available 12/24/2024 17:32:29 11/15/19 25 11/15/2024 CBC W Auto Diffe renti al panel - Blood interpretati on and review of laboratory results Abnorm al Not Available Not Available 17:32:29 11/15/19 25 11/15/2024 Hepat itis B virus surfa ce Ag [Pres ence] in Serum hepatitis B virus surface Ag [presence] in serum NON-RE ACTIVE text: non-re active HEPAT ITIS B SURFA CE AG NON-R EACTI VE Non-r eacti ve 11/15 6:48 PM 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 Not Available Not Available 12/24/2024 17:32:07 11/15/19 25 11/15/2024 Hepat itis B virus surfa ce Ag [Pres ence] in Serum interpretati on and review of laboratory results Normal Not Available Not Available 12/14 17:32:07 11/16/19 25 11/16/2024 Renal funct ion 1999 panel - Serum or Plasm a sodium [moles/volum e] in serum or plasma 136 mmol/ L low: 136mmo l/Lhig h: 145mmo l/L SODIU M 136 136 - 145 mmol/ L 11/16 7:04 AM 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[employer] [facility] Not Available Not Available 12/24/2024 17:32:29 11/16/19 25 11/16/2024 Renal funct ion 1999 panel - Serum or Plasm a potassium [moles/volum e] in serum or plasma 4.3 mmol/ L low: 3.4mmo l/Lhig h: 5.1mmo l/L POTAS SIUM 4.3 3.4 - 5.1 mmol/ L 11/16 7:04 AM 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[employer] [facility] Not Available Not Available 12/24/2024 17:32:29 11/16/19 25 11/16/2024 Renal funct ion 1999 panel - Serum or Plasm a chloride 100 mmol/ L low: 98mmol /Lhigh : 107mmo l/L CHLOR BURT 100 98 - 107 mmol/ L 11/16 7:04 AM 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[employer] [facility] Not Available Not Available 12/24/2024 17:32:29 11/16/19 25 11/16/2024 Renal funct ion 1999 panel - Serum or Plasm a carbon dioxide, total [moles/volum e] in serum or plasma 22 mmol/ L low: 22mmol /Lhigh : 29mmol /L CO2 22 22 - 29 mmol/ L 11/16 7:04 AM [employer] [facility] Not Available Not Available 12/24/2024 17:32:29 11/16/19 25 11/16/2024 Renal funct ion 1999 panel - Serum or Plasm a calcium 9.5 mg/dL low: 8.6mg/ dLhigh : 10.4mg /dL CALCI UM 9.5 8.6 - 10.4 mg/dL 11/16 7:04 AM [employer]FS ([employer] Not Available Not Available 12/24/2024 17:32:29 11/16/19 25 11/16/2024 Renal funct ion 1999 panel - Serum or Plasm a BUN 31 mg/dL low: 6mg/dL high: 20mg/d L high BUN 31 (H) 6 - 20 mg/dL 11/16 7:04 AM [facility] Not Available Not Available 12/24/2024 17:32:29 11/16/19 25 11/16/2024 Renal funct ion 1999 panel - Serum or Plasm a creatinine [mass/volume ] in serum or plasma 5.56 mg/dL low: 0.67mg /dLhig h: 1.17mg /dL high CREAT ININE 5.56 (H) 0.67 - 1.17 mg/dL 11/16 7:04 AM [facility] Not Available Not Available 12/24/2024 17:32:29 11/16/19 25 11/16/2024 Renal funct ion 1999 panel - Serum or Plasm a glucose [mass/volume ] in serum or plasma 98 mg/dL low: 74mg/d Lhigh: 99mg/d L GLUCO SE 98 74 - 99 mg/dL 11/16 7:04 AM [employer]FS ([employer] Not Available Not Available 12/24/2024 17:32:29 11/16/19 25 11/16/2024 Renal funct ion 1999 panel - Serum or Plasm a albumin 3 g/dL low: 3.5g/d Lhigh: 5.2g/d L low ALBUM IN 3.0 (L) 3.5 - 5.2 g/dL 11/16 7:04 AM [facility] Not Available Not Available 12/24/2024 17:32:29 11/16/19 25 11/16/2024 Renal funct ion 1999 panel - Serum or Plasm a phosphorus 3.7 mg/dL low: 2.5mg/ dLhigh : 4.5mg/ dL PHOSP HORUS 3.7 2.5 - 4.5 mg/dL 11/16 7:04 AM [facility] Not Available Not Available 12/24/2024 17:32:29 11/16/19 25 11/16/2024 Renal funct ion 1999 panel - Serum or Plasm a glomerular filtration rate/1.73 sq M.predicted [volume rate/area] in serum, plasma or blood by creatinine-b ased formula (CKD-epi 2020) 11 text: >=60 mL/min /1.73 sq meter low GFR 11 (L) >=60 mL/mi n/1.7 3 sq meter 11/16 7:04 AM [facility] Not Available Not Available 12/24/2024 17:32:29 11/16/19 25 11/16/2024 Renal funct ion 1999 panel - Serum or Plasm a anion gap 14 mmol/ L low: 8mmol/ Lhigh: 16mmol /L ANION GAP 14 8 - 16 mmol/ L 11/16 7:04 AM [employer] Not Available Not Available 12/24/2024 17:32:29 11/16/19 25 11/16/2024 Renal funct ion 2000 panel - Serum or Plasm a interpretati on and review of laboratory results Abnorm al Not Available Not Available 17:32:29 11/17/19 25 11/17/2024 Renal funct ion 1999 panel - Serum or Plasm a sodium [moles/volum e] in serum or plasma 133 mmol/ L low: 136mmo l/Lhig h: 145mmo l/L low SODIU M 133 (L) 136 - 145 mmol/ L 11/17 11:05 AM [employer]FS ([employer] Not Available Not Available 12/24/2024 17:32:29 11/17/19 25 11/17/2024 Renal funct ion 1999 panel - Serum or Plasm a potassium [moles/volum e] in serum or plasma 4.6 mmol/ L low: 3.4mmo l/Lhig h: 5.1mmo l/L POTAS SIUM 4.6 3.4 - 5.1 mmol/ L 11/17 11:05 AM [employer]FS ([employer] Not Available Not Available 12/24/2024 17:32:29 11/17/19 25 11/17/2024 Renal funct ion 1999 panel - Serum or Plasm a chloride 98 mmol/ L low: 98mmol /Lhigh : 107mmo l/L CHLOR BURT 98 98 - 107 mmol/ L 11/17 11:05 AM [employer] Not Available Not Available 12/24/2024 17:32:29 11/17/19 25 11/17/2024 Renal funct ion 1999 panel - Serum or Plasm a carbon dioxide, total [moles/volum e] in serum or plasma 18 mmol/ L low: 22mmol /Lhigh : 29mmol /L low CO2 18 (L) 22 - 29 mmol/ L 11/17 11:05 AM [employer]FS ([employer] Not Available Not Available 12/24/2024 17:32:29 11/17/19 25 11/17/2024 Renal funct ion 1999 panel - Serum or Plasm a calcium 9.7 mg/dL low: 8.6mg/ dLhigh : 10.4mg /dL CALCI UM 9.7 8.6 - 10.4 mg/dL 11/17 11:05 AM [employer]FS ([employer] Not Available Not Available 12/24/2024 17:32:29 11/17/19 25 11/17/2024 Renal funct ion 1999 panel - Serum or Plasm a BUN 31 mg/dL low: 6mg/dL high: 20mg/d L high BUN 31 (H) 6 - 20 mg/dL 11/17 11:05 AM [employer] Not Available Not Available 12/24/2024 17:32:29 11/17/19 25 11/17/2024 Renal funct ion 1999 panel - Serum or Plasm a creatinine [mass/volume ] in serum or plasma 5.92 mg/dL low: 0.67mg /dLhig h: 1.17mg /dL high CREAT ININE 5.92 (H) 0.67 - 1.17 mg/dL 11/17 11:05 AM [employer] ([employer] Not Available Not Available 12/24/2024 17:32:29 11/17/19 25 11/17/2024 Renal funct ion 1999 panel - Serum or Plasm a glucose [mass/volume ] in serum or plasma 102 mg/dL low: 74mg/d Lhigh: 99mg/d L high GLUCO SE 102 (H) 74 - 99 mg/dL 11/17 11:05 AM [employer] Not Available Not Available 12/24/2024 17:32:29 11/17/19 25 11/17/2024 Renal funct ion 1999 panel - Serum or Plasm a albumin 3 g/dL low: 3.5g/d Lhigh: 5.2g/d L low ALBUM IN 3.0 (L) 3.5 - 5.2 g/dL 11/17 11:05 AM [employer] [facility] Not Available Not Available 12/24/2024 17:32:29 11/17/19 25 11/17/2024 Renal funct ion 1999 panel - Serum or Plasm a phosphorus 4 mg/dL low: 2.5mg/ dLhigh : 4.5mg/ dL PHOSP HORUS 4.0 2.5 - 4.5 mg/dL 11/17 11:05 AM [employer] [facility] Not Available Not Available 12/24/2024 17:32:29 11/17/19 25 11/17/2024 Renal funct ion 1999 panel - Serum or Plasm a glomerular filtration rate/1.73 sq M.predicted [volume rate/area] in serum, plasma or blood by creatinine-b ased formula (CKD-epi 2020) 10 text: >=60 mL/min /1.73 sq meter low GFR 10 (L) >=60 mL/mi n/1.7 3 sq meter 11/17 11:05 AM [employer] [facility] Not Available Not Available 12/24/2024 17:32:29 11/17/19 25 11/17/2024 Renal funct ion 1999 panel - Serum or Plasm a anion gap 17 mmol/ L low: 8mmol/ Lhigh: 16mmol /L high ANION GAP 17 (H) 8 - 16 mmol/ L 11/17 11:05 AM [employer] Not Available Not Available 12/24/2024 17:32:29 11/17/19 25 11/17/2024 Renal funct ion 1999 panel - Serum or Plasm a interpretati on and review of laboratory results Abnorm al Not Available Not Available 17:32:29 11/17/19 25 11/17/2024 CBC W Auto Diffe renti al panel - Blood leukocytes [#/volume] in blood 8.1 K/uL low: 4K/uLh igh: 9.8K/u L WBC 8.1 4.0 - 9.8 K/uL 11/17 10:37 AM [employer]FS ([employer] Not Available Not Available 12/24/2024 17:32:29 11/17/19 25 11/17/2024 CBC W Auto Diffe renti al panel - Blood RBC 2.37 text: 4.50 - 5.40 M/uL low RBC 2.37 (L) 4.50 - 5.40 M/uL 11/17 10:37 AM [facility] Not Available Not Available 12/24/2024 17:32:29 11/17/19 25 11/17/2024 CBC W Auto Diffe renti al panel - Blood hemoglobin 8.1 g/dL low: 13.6g/ dLhigh : 16.5g/ dL low HEMOG LOBIN 8.1 (L) 13.6 - 16.5 g/dL 11/17 10:37 AM 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[employer] [facility] Not Available Not Available 12/24/2024 17:32:29 11/17/19 25 11/17/2024 CBC W Auto Diffe renti al panel - Blood hematocrit [volume fraction] of blood by automated count 26.3 % low: 40%hig h: 48% low HEMAT OCRIT 26.3 (L) 40.0 - 48.0 % 11/17 10:37 AM [facility] Not Available Not Available 12/24/2024 17:32:29 11/17/19 25 11/17/2024 CBC W Auto Diffe renti al panel - Blood MCV 111 fL low: 82fLhi gh: 99fL high MCV 111.0 (H) 82.0 - 99.0 fL 11/17 10:37 AM [facility] Not Available Not Available 12/24/2024 17:32:29 11/17/19 25 11/17/2024 CBC W Auto Diffe renti al panel - Blood MCH 34.2 pg low: 27.2pg high: 32.6pg high MCH 34.2 (H) 27.2 - 32.6 pg 11/17 10:37 AM LFS ([employer] Not Available Not Available 12/24/2024 17:32:29 11/17/19 25 11/17/2024 CBC W Auto Diffe renti al panel - Blood MCHC 30.8 g/dL low: 31.5g/ dLhigh : 35.5g/ dL low MCHC 30.8 (L) 31.5 - 35.5 g/dL 11/17 10:37 AM [employer] [facility] [employer] [facility] Not Available Not Available 12/24/2024 17:32:29 11/17/19 25 11/17/2024 CBC W Auto Diffe renti al panel - Blood RDW 15.3 % low: 11.5%h igh: 14.5% high RDW 15.3 (H) 11.5 - 14.5 % 11/17 10:37 AM [employer] [facility] Not Available Not Available 12/24/2024 17:32:29 11/17/19 25 11/17/2024 CBC W Auto Diffe renti al panel - Blood RDW-stdev 61.9 fL low: 37.1fL high: 48.7fL high RDW-S TDEV 61.9 (H) 37.1 - 48.7 fL 11/17 10:37 AM [employer] [facility] Not Available Not Available 12/24/2024 17:32:29 11/17/19 25 11/17/2024 CBC W Auto Diffe renti al panel - Blood platelets [#/volume] in blood by automated count 395 K/uL low: 140K/u Lhigh: 350K/u L high PLATE LETS 395 (H) 140 - 350 K/uL 11/17 10:37 AM [employer] [facility] [employer] [facility] Not Available Not Available 12/24/2024 17:32:29 11/17/19 25 11/17/2024 CBC W Auto Diffe renti al panel - Blood MPV 9.7 fL low: 9.3fLh igh: 12.4fL MPV 9.7 9.3 - 12.4 fL 11/17 10:37 AM [employer] [facility] Not Available Not Available 12/24/2024 17:32:29 11/17/19 25 11/17/2024 CBC W Auto Diffe renti al panel - Blood neutrophils 78 % NEUTR OPHIL S 78 % 11/17 10:37 AM [employer] [facility] Not Available Not Available 12/24/2024 17:32:29 11/17/19 25 11/17/2024 CBC W Auto Diffe renti al panel - Blood lymphocytes/ 100 leukocytes in blood by automated count 9 % LYMPH OCYTE S 9 % 11/17 10:37 AM [employer] [facility] Not Available Not Available 12/24/2024 17:32:29 11/17/19 25 11/17/2024 CBC W Auto Diffe renti al panel - Blood monocytes 10 % MONOC YTES 10 % 11/17 10:37 AM [employer] Not Available Not Available 12/24/2024 17:32:29 11/17/19 25 11/17/2024 CBC W Auto Diffe renti al panel - Blood eosinophils 2 % EOSIN OPHIL S 2 % 11/17 10:37 AM [employer] Not Available Not Available 12/24/2024 17:32:29 11/17/19 25 11/17/2024 CBC W Auto Diffe renti al panel - Blood basophils 1 % BASOP HILS 1 % 11/17 10:37 AM [employer] Not Available Not Available 12/24/2024 17:32:29 11/17/19 25 11/17/2024 CBC W Auto Diffe renti al panel - Blood immature granulocytes 1 % IMMAT URE GRANU LOCYT ES 1 % 11/17 10:37 AM [employer] Not Available Not Available 12/24/2024 17:32:29 11/17/19 25 11/17/2024 CBC W Auto Diffe renti al panel - Blood neutrophils [#/volume] in blood by automated count 6.29 K/uL low: 1.9K/u Lhigh: 7K/uL NEUTR OPHIL ABSOL VENETIE 6.29 1.90 - 7.00 K/uL 11/17 10:37 AM [employer] Not Available Not Available 12/24/2024 17:32:29 11/17/19 25 11/17/2024 CBC W Auto Diffe renti al panel - Blood lymphocyte absolute 0.7 K/uL low: 0.7K/u Lhigh: 4.5K/u L LYMPH OCYTE ABSOL VENETIE 0.70 0.70 - 4.50 K/uL 11/17 10:37 AM [employer] Not Available Not Available 12/24/2024 17:32:29 11/17/19 25 11/17/2024 CBC W Auto Diffe renti al panel - Blood monocyte absolute 0.84 K/uL low: 0.1K/u Lhigh: 1.3K/u L MONOC YTE ABSOL VENETIE 0.84 0.10 - 1.30 K/uL 11/17 10:37 AM [employer] Not Available Not Available 12/24/2024 17:32:29 11/17/19 25 11/17/2024 CBC W Auto Diffe renti al panel - Blood eosinophil absolute 0.19 K/uL low: 0K/uLh igh: 0.7K/u L EOSIN OPHIL ABSOL VENETIE 0.19 0.00 - 0.70 K/uL 11/17 10:37 AM [facility] Not Available Not Available 12/24/2024 17:32:29 11/17/19 25 11/17/2024 CBC W Auto Diffe renti al panel - Blood basophils absolute 0.05 K/uL low: 0K/uLh igh: 0.2K/u L BASOP HILS ABSOL VENETIE 0.05 0.00 - 0.20 K/uL 11/17 10:37 AM [facility] Not Available Not Available 12/24/2024 17:32:29 11/17/19 25 11/17/2024 CBC W Auto Diffe renti al panel - Blood immature granulocytes absolute 0.06 K/uL low: 0K/uLh igh: 0.03K/ uL high IMMAT URE GRANU LOCYT ES ABSOL VENETIE 0.06 (H) 0.00 - 0.03 K/uL 11/17 10:37 AM [facility] Not Available Not Available 12/24/2024 17:32:29 11/17/19 25 11/17/2024 CBC W Auto Diffe renti al panel - Blood interpretati on and review of laboratory results Abnorm al Not Available Not Available 17:32:29 11/18/19 25 11/18/2024 Renal funct ion 1999 panel - Serum or Plasm a sodium [moles/volum e] in serum or plasma 131 mmol/ L low: 136mmo l/Lhig h: 145mmo l/L low SODIU M 131 (L) 136 - 145 mmol/ L 11/18 1:00 PM [employer])[facility] Not Available Not Available 12/24/2024 17:32:29 11/18/19 25 11/18/2024 Renal funct ion 1999 panel - Serum or Plasm a potassium [moles/volum e] in serum or plasma 4.8 mmol/ L low: 3.4mmo l/Lhig h: 5.1mmo l/L POTAS SIUM 4.8 3.4 - 5.1 mmol/ L 11/18 1:00 PM [facility] Not Available Not Available 12/24/2024 17:32:29 11/18/19 25 11/18/2024 Renal funct ion 1999 panel - Serum or Plasm a chloride 97 mmol/ L low: 98mmol /Lhigh : 107mmo l/L low CHLOR BURT 97 (L) 98 - 107 mmol/ L 11/18 1:00 PM [facility] Not Available Not Available 12/24/2024 17:32:29 11/18/19 25 11/18/2024 Renal funct ion 1999 panel - Serum or Plasm a carbon dioxide, total [moles/volum e] in serum or plasma 19 mmol/ L low: 22mmol /Lhigh : 29mmol /L low CO2 19 (L) 22 - 29 mmol/ L 11/18 1:00 PM [facility] [employer] [facility] Not Available Not Available 12/24/2024 17:32:29 11/18/19 25 11/18/2024 Renal funct ion 1999 panel - Serum or Plasm a calcium 9.7 mg/dL low: 8.6mg/ dLhigh : 10.4mg /dL CALCI UM 9.7 8.6 - 10.4 mg/dL 11/18 1:00 PM [facility] Not Available Not Available 12/24/2024 17:32:29 11/18/19 25 11/18/2024 Renal funct ion 1999 panel - Serum or Plasm a BUN 48 mg/dL low: 6mg/dL high: 20mg/d L high BUN 48 (H) 6 - 20 mg/dL 11/18 1:00 PM [facility] Not Available Not Available 12/24/2024 17:32:29 11/18/19 25 11/18/2024 Renal funct ion 1999 panel - Serum or Plasm a creatinine [mass/volume ] in serum or plasma 7.68 mg/dL low: 0.67mg /dLhig h: 1.17mg /dL high CREAT ININE 7.68 (H) 0.67 - 1.17 mg/dL 11/18 1:00 PM [facility] Not Available Not Available 12/24/2024 17:32:29 11/18/19 25 11/18/2024 Renal funct ion 1999 panel - Serum or Plasm a glucose [mass/volume ] in serum or plasma 111 mg/dL low: 74mg/d Lhigh: 99mg/d L high GLUCO SE 111 (H) 74 - 99 mg/dL 11/18 1:00 PM 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[facility] Not Available Not Available 12/24/2024 17:32:29 11/18/19 25 11/18/2024 Renal funct ion 1999 panel - Serum or Plasm a albumin 3.2 g/dL low: 3.5g/d Lhigh: 5.2g/d L low ALBUM IN 3.2 (L) 3.5 - 5.2 g/dL 11/18 1:00 PM 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 Not Available Not Available 12/24/2024 17:32:29 11/18/19 25 11/18/2024 Renal funct ion 1999 panel - Serum or Plasm a phosphorus 4.7 mg/dL low: 2.5mg/ dLhigh : 4.5mg/ dL high PHOSP HORUS 4.7 (H) 2.5 - 4.5 mg/dL 11/18 1:00 PM [facility] Not Available Not Available 12/24/2024 17:32:29 11/18/19 25 11/18/2024 Renal funct ion 1999 panel - Serum or Plasm a glomerular filtration rate/1.73 sq M.predicted [volume rate/area] in serum, plasma or blood by creatinine-b ased formula (CKD-epi 2020) 7 text: >=60 mL/min /1.73 sq meter low GFR 7 (L) >=60 mL/mi n/1.7 3 sq meter 11/18 1:00 PM [facility] Not Available Not Available 12/24/2024 17:32:29 11/18/19 25 11/18/2024 Renal funct ion 1999 panel - Serum or Plasm a anion gap 15 mmol/ L low: 8mmol/ Lhigh: 16mmol /L ANION GAP 15 8 - 16 mmol/ L 11/18 1:00 PM [facility] Not Available Not Available 12/24/2024 17:32:29 11/18/19 25 11/18/2024 Renal funct ion 2000 panel - Serum or Plasm a interpretati on and review of laboratory results Abnorm al Not Available Not Available 17:32:29 11/19/19 25 11/19/2024 CBC W Auto Diffe renti al panel - Blood leukocytes [#/volume] in blood 6.9 K/uL low: 4K/uLh igh: 9.8K/u L WBC 6.9 4.0 - 9.8 K/uL 11/19 3:01 PM [facility] Not Available Not Available 12/24/2024 17:32:30 11/19/19 25 11/19/2024 CBC W Auto Diffe renti al panel - Blood RBC 2.28 text: 4.50 - 5.40 M/uL low RBC 2.28 (L) 4.50 - 5.40 M/uL 11/19 3:01 PM [facility] Not Available Not Available 12/24/2024 17:32:30 11/19/19 25 11/19/2024 CBC W Auto Diffe renti al panel - Blood hemoglobin 7.9 g/dL low: 13.6g/ dLhigh : 16.5g/ dL low HEMOG LOBIN 7.9 (L) 13.6 - 16.5 g/dL 11/19 3:01 PM [facility] [employer] [facility] Not Available Not Available 12/24/2024 17:32:30 11/19/19 25 11/19/2024 CBC W Auto Diffe renti al panel - Blood hematocrit [volume fraction] of blood by automated count 24.8 % low: 40%hig h: 48% low HEMAT OCRIT 24.8 (L) 40.0 - 48.0 % 11/19 3:01 PM [facility] [employer] [facility] Not Available Not Available 12/24/2024 17:32:30 11/19/19 25 11/19/2024 CBC W Auto Diffe renti al panel - Blood MCV 108.8 fL low: 82fLhi gh: 99fL high MCV 108.8 (H) 82.0 - 99.0 fL 11/19 3:01 PM [facility] Not Available Not Available 12/24/2024 17:32:30 11/19/19 25 11/19/2024 CBC W Auto Diffe renti al panel - Blood MCH 34.6 pg low: 27.2pg high: 32.6pg high MCH 34.6 (H) 27.2 - 32.6 pg 11/19 3:01 PM [facility] [employer] [facility] Not Available Not Available 12/24/2024 17:32:30 11/19/19 25 11/19/2024 CBC W Auto Diffe renti al panel - Blood MCHC 31.9 g/dL low: 31.5g/ dLhigh : 35.5g/ dL MCHC 31.9 31.5 - 35.5 g/dL 11/19 3:01 PM [facility] [employer] [facility] Not Available Not Available 12/24/2024 17:32:30 11/19/19 25 11/19/2024 CBC W Auto Diffe renti al panel - Blood RDW 15.3 % low: 11.5%h igh: 14.5% high RDW 15.3 (H) 11.5 - 14.5 % 11/19 3:01 PM 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[employer] [facility] Not Available Not Available 12/24/2024 17:32:30 11/19/19 25 11/19/2024 CBC W Auto Diffe renti al panel - Blood RDW-stdev 61.2 fL low: 37.1fL high: 48.7fL high RDW-S TDEV 61.2 (H) 37.1 - 48.7 fL 11/19 3:01 PM 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 Not Available Not Available 12/24/2024 17:32:30 11/19/19 25 11/19/2024 CBC W Auto Diffe renti al panel - Blood platelets [#/volume] in blood by automated count 389 K/uL low: 140K/u Lhigh: 350K/u L high PLATE LETS 389 (H) 140 - 350 K/uL 11/19 3:01 PM 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[employer] [facility] Not Available Not Available 12/24/2024 17:32:30 11/19/19 25 11/19/2024 CBC W Auto Diffe renti al panel - Blood MPV 9.5 fL low: 9.3fLh igh: 12.4fL MPV 9.5 9.3 - 12.4 fL 11/19 3:01 PM 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 Not Available Not Available 12/24/2024 17:32:30 11/19/19 25 11/19/2024 CBC W Auto Diffe renti al panel - Blood neutrophils 74 % NEUTR OPHIL S 74 % 11/19 3:01 PM 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 Not Available Not Available 12/24/2024 17:32:30 11/19/19 25 11/19/2024 CBC W Auto Diffe renti al panel - Blood lymphocytes/ 100 leukocytes in blood by automated count 13 % LYMPH OCYTE S 13 % 11/19 3:01 PM 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 Not Available Not Available 12/24/2024 17:32:30 11/19/19 25 11/19/2024 CBC W Auto Diffe renti al panel - Blood monocytes 9 % MONOC YTES 9 % 11/19 3:01 PM [facility] Not Available Not Available 12/24/2024 17:32:30 11/19/19 25 11/19/2024 CBC W Auto Diffe renti al panel - Blood eosinophils 3 % EOSIN OPHIL S 3 % 11/19 3:01 PM [facility] [employer] [facility] Not Available Not Available 12/24/2024 17:32:30 11/19/19 25 11/19/2024 CBC W Auto Diffe renti al panel - Blood basophils 1 % BASOP HILS 1 % 11/19 3:01 PM [facility] Not Available Not Available 12/24/2024 17:32:30 11/19/19 25 11/19/2024 CBC W Auto Diffe renti al panel - Blood immature granulocytes 1 % IMMAT URE GRANU LOCYT ES 1 % 11/19 3:01 PM [facility] [employer] [facility] Not Available Not Available 12/24/2024 17:32:30 11/19/19 25 11/19/2024 CBC W Auto Diffe renti al panel - Blood neutrophils [#/volume] in blood by automated count 5.09 K/uL low: 1.9K/u Lhigh: 7K/uL NEUTR OPHIL ABSOL VENETIE 5.09 1.90 - 7.00 K/uL 11/19 3:01 PM 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[facility] Not Available Not Available 12/24/2024 17:32:30 11/19/19 25 11/19/2024 CBC W Auto Diffe renti al panel - Blood lymphocyte absolute 0.9 K/uL low: 0.7K/u Lhigh: 4.5K/u L LYMPH OCYTE ABSOL VENETIE 0.90 0.70 - 4.50 K/uL 11/19 3:01 PM 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 Not Available Not Available 12/24/2024 17:32:30 11/19/19 25 11/19/2024 CBC W Auto Diffe renti al panel - Blood monocyte absolute 0.6 K/uL low: 0.1K/u Lhigh: 1.3K/u L MONOC YTE ABSOL VENETIE 0.60 0.10 - 1.30 K/uL 11/19 3:01 PM 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 Not Available Not Available 12/24/2024 17:32:30 11/19/19 25 11/19/2024 CBC W Auto Diffe renti al panel - Blood eosinophil absolute 0.19 K/uL low: 0K/uLh igh: 0.7K/u L EOSIN OPHIL ABSOL VENETIE 0.19 0.00 - 0.70 K/uL 11/19 3:01 PM [facility] [employer] [facility] Not Available Not Available 12/24/2024 17:32:30 11/19/19 25 11/19/2024 CBC W Auto Diffe renti al panel - Blood basophils absolute 0.05 K/uL low: 0K/uLh igh: 0.2K/u L BASOP HILS ABSOL VENETIE 0.05 0.00 - 0.20 K/uL 11/19 3:01 PM [facility] [employer] [facility] Not Available Not Available 12/24/2024 17:32:30 11/19/19 25 11/19/2024 CBC W Auto Diffe renti al panel - Blood immature granulocytes absolute 0.04 K/uL low: 0K/uLh igh: 0.03K/ uL high IMMAT URE GRANU LOCYT ES ABSOL VENETIE 0.04 (H) 0.00 - 0.03 K/uL 11/19 3:01 PM [facility] [employer] [facility] Not Available Not Available 12/24/2024 17:32:30 11/19/19 25 11/19/2024 CBC W Auto Diffe renti al panel - Blood interpretati on and review of laboratory results Abnorm al Not Available Not Available 17:32:30 11/19/19 25 11/19/2024 Basic metab olic 1999 panel - Serum or Plasm a sodium [moles/volum e] in serum or plasma 136 mmol/ L low: 136mmo l/Lhig h: 145mmo l/L SODIU M 136 136 - 145 mmol/ L 11/19 3:59 PM 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[employer] [facility] Not Available Not Available 12/24/2024 17:32:30 11/19/19 25 11/19/2024 Basic metab olic 1999 panel - Serum or Plasm a potassium [moles/volum e] in serum or plasma 4.8 mmol/ L low: 3.4mmo l/Lhig h: 5.1mmo l/L POTAS SIUM 4.8 3.4 - 5.1 mmol/ L 11/19 3:59 PM 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 [employer] [facility] Not Available Not Available 12/24/2024 17:32:30 11/19/19 25 11/19/2024 Basic metab olic 1999 panel - Serum or Plasm a chloride 103 mmol/ L low: 98mmol /Lhigh : 107mmo l/L CHLOR BURT 103 98 - 107 mmol/ L 11/19 3:59 PM 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[employer] [facility] Not Available Not Available 12/24/2024 17:32:30 11/19/19 25 11/19/2024 Basic metab olic 1999 panel - Serum or Plasm a carbon dioxide, total [moles/volum e] in serum or plasma 23 mmol/ L low: 22mmol /Lhigh : 29mmol /L CO2 23 22 - 29 mmol/ L 11/19 3:59 PM 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[employer] [facility] Not Available Not Available 12/24/2024 17:32:30 11/19/19 25 11/19/2024 Basic metab olic 2000 panel - Serum or Plasm a calcium 9.4 mg/dL low: 8.6mg/ dLhigh : 10.4mg /dL CALCI UM 9.4 8.6 - 10.4 mg/dL 11/19 3:59 PM 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 Not Available Not Available 12/24/2024 17:32:30 11/19/19 25 11/19/2024 Basic metab olic 1999 panel - Serum or Plasm a BUN 31 mg/dL low: 6mg/dL high: 20mg/d L high BUN 31 (H) 6 - 20 mg/dL 11/19 3:59 PM 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[employer] [facility] Not Available Not Available 12/24/2024 17:32:30 11/19/19 25 11/19/2024 Basic metab olic 1999 panel - Serum or Plasm a creatinine [mass/volume ] in serum or plasma 6.07 mg/dL low: 0.67mg /dLhig h: 1.17mg /dL high CREAT ININE 6.07 (H) 0.67 - 1.17 mg/dL 11/19 3:59 PM [facility] Not Available Not Available 12/24/2024 17:32:30 11/19/19 25 11/19/2024 Basic metab olic 1999 panel - Serum or Plasm a glucose [mass/volume ] in serum or plasma 104 mg/dL low: 74mg/d Lhigh: 99mg/d L high GLUCO SE 104 (H) 74 - 99 mg/dL 11/19 3:59 PM [employer] Not Available Not Available 12/24/2024 17:32:30 11/19/19 25 11/19/2024 Basic metab olic 2000 panel - Serum or Plasm a glomerular filtration rate/1.73 sq M.predicted [volume rate/area] in serum, plasma or blood by creatinine-b ased formula (CKD-epi 2020) 10 text: >=60 mL/min /1.73 sq meter low GFR 10 (L) >=60 mL/mi n/1.7 3 sq meter 11/19 3:59 PM 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 Not Available Not Available 12/24/2024 17:32:30 11/19/19 25 11/19/2024 Basic metab olic 2000 panel - Serum or Plasm a anion gap 10 mmol/ L low: 8mmol/ Lhigh: 16mmol /L ANION GAP 10 8 - 16 mmol/ L 11/19 3:59 PM 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[employer] [facility] Not Available Not Available 12/24/2024 17:32:30 11/19/19 25 11/19/2024 Basic metab olic 1999 panel - Serum or Plasm a interpretati on and review of laboratory results Abnorm al Not Available Not Available 17:32:30 11/19/19 25 11/19/2024 Renal funct ion 1999 panel - Serum or Plasm a sodium [moles/volum e] in serum or plasma 129 mmol/ L low: 136mmo l/Lhig h: 145mmo l/L low SODIU M 129 (L) 136 - 145 mmol/ L 11/19 4:11 AM [facility] Not Available Not Available 12/24/2024 17:32:30 11/19/19 25 11/19/2024 Renal funct ion 1999 panel - Serum or Plasm a potassium [moles/volum e] in serum or plasma 5.4 mmol/ L low: 3.4mmo l/Lhig h: 5.1mmo l/L high POTAS SIUM 5.4 (H) 3.4 - 5.1 mmol/ L 11/19 4:11 AM [facility] Not Available Not Available 12/24/2024 17:32:30 11/19/19 25 11/19/2024 Renal funct ion 1999 panel - Serum or Plasm a chloride 100 mmol/ L low: 98mmol /Lhigh : 107mmo l/L CHLOR BURT 100 98 - 107 mmol/ L 11/19 4:11 AM [facility] Not Available Not Available 12/24/2024 17:32:30 11/19/19 25 11/19/2024 Renal funct ion 1999 panel - Serum or Plasm a carbon dioxide, total [moles/volum e] in serum or plasma 19 mmol/ L low: 22mmol /Lhigh : 29mmol /L low CO2 19 (L) 22 - 29 mmol/ L 11/19 4:11 AM [employer] Not Available Not Available 12/24/2024 17:32:30 11/19/19 25 11/19/2024 Renal funct ion 1999 panel - Serum or Plasm a calcium 9.5 mg/dL low: 8.6mg/ dLhigh : 10.4mg /dL CALCI UM 9.5 8.6 - 10.4 mg/dL 11/19 4:11 AM [facility] Not Available Not Available 12/24/2024 17:32:30 11/19/19 25 11/19/2024 Renal funct ion 1999 panel - Serum or Plasm a BUN 58 mg/dL low: 6mg/dL high: 20mg/d L high BUN 58 (H) 6 - 20 mg/dL 11/19 4:11 AM [facility] Not Available Not Available 12/24/2024 17:32:30 11/19/19 25 11/19/2024 Renal funct ion 1999 panel - Serum or Plasm a creatinine [mass/volume ] in serum or plasma 9.54 mg/dL low: 0.67mg /dLhig h: 1.17mg /dL high CREAT ININE 9.54 (H) 0.67 - 1.17 mg/dL 11/19 4:11 AM [facility] Not Available Not Available 12/24/2024 17:32:30 11/19/19 25 11/19/2024 Renal funct ion 1999 panel - Serum or Plasm a glucose [mass/volume ] in serum or plasma 112 mg/dL low: 74mg/d Lhigh: 99mg/d L high GLUCO SE 112 (H) 74 - 99 mg/dL 11/19 4:11 AM [facility] Not Available Not Available 12/24/2024 17:32:30 11/19/19 25 11/19/2024 Renal funct ion 1999 panel - Serum or Plasm a albumin 3 g/dL low: 3.5g/d Lhigh: 5.2g/d L low ALBUM IN 3.0 (L) 3.5 - 5.2 g/dL 11/19 4:11 AM [facility] Not Available Not Available 12/24/2024 17:32:30 11/19/19 25 11/19/2024 Renal funct ion 1999 panel - Serum or Plasm a phosphorus 4.8 mg/dL low: 2.5mg/ dLhigh : 4.5mg/ dL high PHOSP HORUS 4.8 (H) 2.5 - 4.5 mg/dL 11/19 4:11 AM [facility] Not Available Not Available 12/24/2024 17:32:30 11/19/1911/19/2024 Renal funct ion 1999 panel - Serum or Plasm a glomerular filtration rate/1.73 sq M.predicted [volume rate/area] in serum, plasma or blood by creatinine-b ased formula (CKD-epi 2020) 6 text: >=60 mL/min /1.73 sq meter low GFR 6 (L) >=60 mL/mi n/1.7 3 sq meter 11/19 4:11 AM [facility] Not Available Not Available 12/24/2024 17:32:30 11/19/1911/19/2024 Renal funct ion 2000 panel - Serum or Plasm a anion gap 10 mmol/ L low: 8mmol/ Lhigh: 16mmol /L ANION GAP 10 8 - 16 mmol/ L 11/19 4:11 AM [facility] Not Available Not Available 12/24/2024 17:32:30 11/19/19 25 11/19/2024 Renal funct ion 2000 panel - Serum or Plasm a interpretati on and review of laboratory results Abnorm amanda Not Available Not Available 17:32:30 11/19/19 25 11/19/2024 CBC W Auto Diffe demetrius al panel - Blood leukocytes [#/volume] in blood 9.4 K/uL low: 4K/uLh igh: 9.8K/u L WBC 9.4 4.0 - 9.8 K/uL 11/19 3:41 AM [facility] Not Available Not Available 12/24/2024 17:32:30 11/19/19 25 11/19/2024 CBC W Auto Diffe renti al panel - Blood RBC 2.17 text: 4.50 - 5.40 M/uL low RBC 2.17 (L) 4.50 - 5.40 M/uL 11/19 3:41 AM [facility] Not Available Not Available 12/24/2024 17:32:30 11/19/19 25 11/19/2024 CBC W Auto Diffe renti al panel - Blood hemoglobin 7.3 g/dL low: 13.6g/ dLhigh : 16.5g/ dL low HEMOG LOBIN 7.3 (L) 13.6 - 16.5 g/dL 11/19 3:41 AM [facility] Not Available Not Available 12/24/2024 17:32:30 11/19/1911/19/2024 CBC W Auto Diffe renti al panel - Blood hematocrit [volume fraction] of blood by automated count 23.3 % low: 40%hig h: 48% low HEMAT OCRIT 23.3 (L) 40.0 - 48.0 % 11/19 3:41 AM [facility] Not Available Not Available 12/24/2024 17:32:30 11/19/19 25 11/19/2024 CBC W Auto Diffe renti al panel - Blood MCV 107.4 fL low: 82fLhi gh: 99fL high MCV 107.4 (H) 82.0 - 99.0 fL 11/19 3:41 AM [facility] Not Available Not Available 12/24/2024 17:32:30 11/19/19 25 11/19/2024 CBC W Auto Diffe renti al panel - Blood MCH 33.6 pg low: 27.2pg high: 32.6pg high MCH 33.6 (H) 27.2 - 32.6 pg 11/19 3:41 AM [employer] Not Available Not Available 12/24/2024 17:32:30 11/19/19 25 11/19/2024 CBC W Auto Diffe renti al panel - Blood MCHC 31.3 g/dL low: 31.5g/ dLhigh : 35.5g/ dL low MCHC 31.3 (L) 31.5 - 35.5 g/dL 11/19 3:41 AM [employer] [facility] Not Available Not Available 12/24/2024 17:32:30 11/19/19 25 11/19/2024 CBC W Auto Diffe renti al panel - Blood RDW 15.3 % low: 11.5%h igh: 14.5% high RDW 15.3 (H) 11.5 - 14.5 % 11/19 3:41 AM [employer] [facility] Not Available Not Available 12/24/2024 17:32:30 11/19/19 25 11/19/2024 CBC W Auto Diffe renti al panel - Blood RDW-stdev 60.8 fL low: 37.1fL high: 48.7fL high RDW-S TDEV 60.8 (H) 37.1 - 48.7 fL 11/19 3:41 AM [employer] [facility] Not Available Not Available 12/24/2024 17:32:30 11/19/19 25 11/19/2024 CBC W Auto Diffe renti al panel - Blood platelets [#/volume] in blood by automated count 385 K/uL low: 140K/u Lhigh: 350K/u L high PLATE LETS 385 (H) 140 - 350 K/uL 11/19 3:41 AM [facility] Not Available Not Available 12/24/2024 17:32:30 11/19/19 25 11/19/2024 CBC W Auto Diffe renti al panel - Blood MPV 9.7 fL low: 9.3fLh igh: 12.4fL MPV 9.7 9.3 - 12.4 fL 11/19 3:41 AM [facility] Not Available Not Available 12/24/2024 17:32:30 11/19/19 25 11/19/2024 CBC W Auto Diffe renti al panel - Blood neutrophils 77 % NEUTR OPHIL S 77 % 11/19 3:41 AM NICHOL KENNEDYSumZero [facility] Not Available Not Available 12/24/2024 17:32:30 11/19/19 25 11/19/2024 CBC W Auto Diffe renti al panel - Blood lymphocytes/ 100 leukocytes in blood by automated count 11 % LYMPH OCYTE S 11 % 11/19 3:41 AM [employer] [facility] Not Available Not Available 12/24/2024 17:32:30 11/19/19 25 11/19/2024 CBC W Auto Diffe renti al panel - Blood monocytes 9 % MONOC YTES 9 % 11/19 3:41 AM [employer] Not Available Not Available 12/24/2024 17:32:30 11/19/19 25 11/19/2024 CBC W Auto Diffe renti al panel - Blood eosinophils 3 % EOSIN OPHIL S 3 % 11/19 3:41 AM [employer] Not Available Not Available 12/24/2024 17:32:30 11/19/19 25 11/19/2024 CBC W Auto Diffe renti al panel - Blood basophils 1 % BASOP HILS 1 % 11/19 3:41 AM [facility] Not [facility] Not Available 12/24/2024 17:32:30 11/19/19 25 11/19/2024 CBC W Auto Diffe renti al panel - Blood immature granulocytes 1 % IMMAT URE GRANU LOCYT ES 1 % 11/19 3:41 AM [facility] Not Available Not Available 12/24/2024 17:32:30 11/19/19 25 11/19/2024 CBC W Auto Diffe renti al panel - Blood neutrophils [#/volume] in blood by automated count 7.24 K/uL low: 1.9K/u Lhigh: 7K/uL high NEUTR OPHIL ABSOL VENETIE 7.24 (H) 1.90 - 7.00 K/uL 11/19 3:41 AM [facility] Not Available Not Available 12/24/2024 17:32:30 11/19/19 25 11/19/2024 CBC W Auto Diffe renti al panel - Blood lymphocyte absolute 1 K/uL low: 0.7K/u Lhigh: 4.5K/u L LYMPH OCYTE ABSOL VENETIE 1.00 0.70 - 4.50 K/uL 11/19 3:41 AM [facility] Not Available Not Available 12/24/2024 17:32:30 11/19/1911/19/2024 CBC W Auto Diffe renti al panel - Blood monocyte absolute 0.81 K/uL low: 0.1K/u Lhigh: 1.3K/u L MONOC YTE ABSOL VENETIE 0.81 0.10 - 1.30 K/uL 11/19 3:41 AM [facility] Not Available Not Available 12/24/2024 17:32:30 11/19/19 25 11/19/2024 CBC W Auto Diffe renti al panel - Blood eosinophil absolute 0.25 K/uL low: 0K/uLh igh: 0.7K/u L EOSIN OPHIL ABSOL VENETIE 0.25 0.00 - 0.70 K/uL 11/19 3:41 AM [facility] Not Available Not Available 12/24/2024 17:32:30 11/19/19 25 11/19/2024 CBC W Auto Diffe renti al panel - Blood basophils absolute 0.07 K/uL low: 0K/uLh igh: 0.2K/u L BASOP HILS ABSOL VENETIE 0.07 0.00 - 0.20 K/uL 11/19 3:41 AM [facility] Not Available Not Available 12/24/2024 17:32:30 11/19/19 25 11/19/2024 CBC W Auto Diffe renti al panel - Blood immature granulocytes absolute 0.06 K/uL low: 0K/uLh igh: 0.03K/ uL high IMMAT URE GRANU LOCYT ES ABSOL VENETIE 0.06 (H) 0.00 - 0.03 K/uL 11/19 3:41 AM [facility] Not Available Not Available 12/24/2024 17:32:30 11/19/19 25 11/19/2024 CBC W Auto Diffe renti al panel - Blood interpretati on and review of laboratory results Abnorm al Not Available Not Available 17:32:30 11/20/19 25 11/20/2024 Renal funct ion 1999 panel - Serum or Plasm a sodium [moles/volum e] in serum or plasma 133 mmol/ L low: 136mmo l/Lhig h: 145mmo l/L low SODIU M 133 (L) 136 - 145 mmol/ L 11/20 4:43 AM [facility] Not Available Not Available 12/24/2024 17:32:30 11/20/19 25 11/20/2024 Renal funct ion 1999 panel - Serum or Plasm a potassium [moles/volum e] in serum or plasma 5.1 mmol/ L low: 3.4mmo l/Lhig h: 5.1mmo l/L POTAS SIUM 5.1 3.4 - 5.1 mmol/ L 11/20 4:43 AM [facility] Not Available Not Available 12/24/2024 17:32:30 11/20/19 25 11/20/2024 Renal funct ion 1999 panel - Serum or Plasm a chloride 100 mmol/ L low: 98mmol /Lhigh : 107mmo l/L CHLOR BURT 100 98 - 107 mmol/ L 11/20 4:43 AM [facility] Not Available Not Available 12/24/2024 17:32:30 11/20/19 25 11/20/2024 Renal funct ion 1999 panel - Serum or Plasm a carbon dioxide, total [moles/volum e] in serum or plasma 21 mmol/ L low: 22mmol /Lhigh : 29mmol /L low CO2 21 (L) 22 - 29 mmol/ L 11/20 4:43 AM [facility] Not Available Not Available 12/24/2024 17:32:30 11/20/19 25 11/20/2024 Renal funct ion 1999 panel - Serum or Plasm a calcium 9.4 mg/dL low: 8.6mg/ dLhigh : 10.4mg /dL CALCI UM 9.4 8.6 - 10.4 mg/dL 11/20 4:43 AM [facility] Not Available Not Available 12/24/2024 17:32:30 11/20/19 25 11/20/2024 Renal funct ion 1999 panel - Serum or Plasm a BUN 44 mg/dL low: 6mg/dL high: 20mg/d L high BUN 44 (H) 6 - 20 mg/dL 11/20 4:43 AM [facility] Not Available Not Available 12/24/2024 17:32:30 11/20/19 25 11/20/2024 Renal funct ion 1999 panel - Serum or Plasm a creatinine [mass/volume ] in serum or plasma 6.32 mg/dL low: 0.67mg /dLhig h: 1.17mg /dL high CREAT ININE 6.32 (H) 0.67 - 1.17 mg/dL 11/20 4:43 AM [facility] Not Available Not Available 12/24/2024 17:32:30 11/20/19 25 11/20/2024 Renal funct ion 1999 panel - Serum or Plasm a glucose [mass/volume ] in serum or plasma 104 mg/dL low: 74mg/d Lhigh: 99mg/d L high GLUCO SE 104 (H) 74 - 99 mg/dL 11/20 4:43 AM [facility] Not Available Not Available 12/24/2024 17:32:30 11/20/19 25 11/20/2024 Renal funct ion 1999 panel - Serum or Plasm a albumin 3.1 g/dL low: 3.5g/d Lhigh: 5.2g/d L low ALBUM IN 3.1 (L) 3.5 - 5.2 g/dL 11/20 4:43 AM [facility] Not Available Not Available 12/24/2024 17:32:30 11/20/19 25 11/20/2024 Renal funct ion 1999 panel - Serum or Plasm a phosphorus 3.8 mg/dL low: 2.5mg/ dLhigh : 4.5mg/ dL PHOSP HORUS 3.8 2.5 - 4.5 mg/dL 11/20 4:43 AM [facility] Not Available Not Available 12/24/2024 17:32:30 11/20/19 25 11/20/2024 Renal funct ion 1999 panel - Serum or Plasm a glomerular filtration rate/1.73 sq M.predicted [volume rate/area] in serum, plasma or blood by creatinine-b ased formula (CKD-epi 2020) 9 text: >=60 mL/min /1.73 sq meter low GFR 9 (L) >=60 mL/mi n/1.7 3 sq meter 11/20 4:43 AM [facility] Not Available Not Available 12/24/2024 17:32:30 11/20/19 25 11/20/2024 Renal funct ion 1999 panel - Serum or Plasm a anion gap 12 mmol/ L low: 8mmol/ Lhigh: 16mmol /L ANION GAP 12 8 - 16 mmol/ L 11/20 4:43 AM [facility] Not Available Not Available 12/24/2024 17:32:30 11/20/19 25 11/20/2024 Renal funct ion 1999 panel - Serum or Plasm a interpretati on and review of laboratory results Abnorm al Not Available Not Available 17:32:30 11/20/19 25 11/20/2024 CBC W Auto Diffe renti al panel - Blood leukocytes [#/volume] in blood 8 K/uL low: 4K/uLh igh: 9.8K/u L WBC 8.0 4.0 - 9.8 K/uL 11/20 4:22 AM [facility] Not Available Not Available 12/24/2024 17:32:30 11/20/19 25 11/20/2024 CBC W Auto Diffe renti al panel - Blood RBC 2.34 text: 4.50 - 5.40 M/uL low RBC 2.34 (L) 4.50 - 5.40 M/uL 11/20 4:22 AM [facility] Not Available Not Available 12/24/2024 17:32:30 11/20/1911/20/2024 CBC W Auto Diffe renti al panel - Blood hemoglobin 8 g/dL low: 13.6g/ dLhigh : 16.5g/ dL low HEMOG LOBIN 8.0 (L) 13.6 - 16.5 g/dL 11/20 4:22 AM [facility] Not Available Not Available 12/24/2024 17:32:30 11/20/19 25 11/20/2024 CBC W Auto Diffe renti al panel - Blood hematocrit [volume fraction] of blood by automated count 25.4 % low: 40%hig h: 48% low HEMAT OCRIT 25.4 (L) 40.0 - 48.0 % 11/20 4:22 AM [facility] Not Available Not Available 12/24/2024 17:32:30 11/20/19 25 11/20/2024 CBC W Auto Diffe renti al panel - Blood MCV 108.5 fL low: 82fLhi gh: 99fL high MCV 108.5 (H) 82.0 - 99.0 fL 11/20 4:22 AM [facility] Not Available Not Available 12/24/2024 17:32:30 11/20/19 25 11/20/2024 CBC W Auto Diffe renti al panel - Blood MCH 34.2 pg low: 27.2pg high: 32.6pg high MCH 34.2 (H) 27.2 - 32.6 pg 02/05 /2025 4:22 AM [facility] Not Available Not Available 12/24/2024 17:32:30 11/20/19 25 11/20/2024 CBC W Auto Diffe renti al panel - Blood MCHC 31.5 g/dL low: 31.5g/ dLhigh : 35.5g/ dL MCHC 31.5 31.5 - 35.5 g/dL 11/20 4:22 AM [facility] Not Available Not Available 12/24/2024 17:32:30 11/20/19 25 11/20/2024 CBC W Auto Diffe renti al panel - Blood RDW 15.2 % low: 11.5%h igh: 14.5% high RDW 15.2 (H) 11.5 - 14.5 % 11/20 4:22 AM [facility] Not Available Not Available 12/24/2024 17:32:30 11/20/19 25 11/20/2024 CBC W Auto Diffe renti al panel - Blood RDW-stdev 60.9 fL low: 37.1fL high: 48.7fL high RDW-S TDEV 60.9 (H) 37.1 - 48.7 fL 11/20 4:22 AM [facility] Not Available Not Available 12/24/2024 17:32:30 11/20/19 25 11/20/2024 CBC W Auto Diffe renti al panel - Blood platelets [#/volume] in blood by automated count 395 K/uL low: 140K/u Lhigh: 350K/u L high PLATE LETS 395 (H) 140 - 350 K/uL 11/20 4:22 AM [facility] Not Available Not Available 12/24/2024 17:32:30 11/20/19 25 11/20/2024 CBC W Auto Diffe renti al panel - Blood MPV 9.5 fL low: 9.3fLh igh: 12.4fL MPV 9.5 9.3 - 12.4 fL 11/20 4:22 AM [facility] Not Available Not Available 12/24/2024 17:32:30 11/20/19 25 11/20/2024 CBC W Auto Diffe renti al panel - Blood neutrophils 78 % NEUTR OPHIL S 78 % 11/20 4:22 AM [facility] Not Available Not Available 12/24/2024 17:32:30 11/20/19 25 11/20/2024 CBC W Auto Diffe renti al panel - Blood lymphocytes/ 100 leukocytes in blood by automated count 10 % LYMPH OCYTE S 10 % 11/20 4:22 AM [facility] Not Available Not Available 12/24/2024 17:32:30 11/20/19 25 11/20/2024 CBC W Auto Diffe renti al panel - Blood monocytes 9 % MONOC YTES 9 % 11/20 4:22 AM [facility] Not Available Not Available 12/24/2024 17:32:30 11/20/19 25 11/20/2024 CBC W Auto Diffe renti al panel - Blood eosinophils 2 % EOSIN OPHIL S 2 % 11/20 4:22 AM 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 Not Available Not Available 12/24/2024 17:32:30 11/20/19 25 11/20/2024 CBC W Auto Diffe renti al panel - Blood basophils 1 % BASOP HILS 1 % 11/20 4:22 AM [facility] Not Available Not Available 12/24/2024 17:32:30 11/20/19 25 11/20/2024 CBC W Auto Diffe renti al panel - Blood immature granulocytes 1 % IMMAT URE GRANU LOCYT ES 1 % 11/20 4:22 AM [facility] Not Available Not Available 12/24/2024 17:32:30 11/20/19 25 11/20/2024 CBC W Auto Diffe renti al panel - Blood neutrophils [#/volume] in blood by automated count 6.23 K/uL low: 1.9K/u Lhigh: 7K/uL NEUTR OPHIL ABSOL VENETIE 6.23 1.90 - 7.00 K/uL 11/20 4:22 AM [facility] Not Available Not Available 12/24/2024 17:32:30 11/20/19 25 11/20/2024 CBC W Auto Diffe renti al panel - Blood lymphocyte absolute 0.79 K/uL low: 0.7K/u Lhigh: 4.5K/u L LYMPH OCYTE ABSOL VENETIE 0.79 0.70 - 4.50 K/uL 11/20 4:22 AM [facility] Not Available Not Available 12/24/2024 17:32:30 11/20/19 25 11/20/2024 CBC W Auto Diffe renti al panel - Blood monocyte absolute 0.73 K/uL low: 0.1K/u Lhigh: 1.3K/u L MONOC YTE ABSOL VENETIE 0.73 0.10 - 1.30 K/uL 11/20 4:22 AM [facility] Not Available Not Available 12/24/2024 17:32:30 11/20/19 25 11/20/2024 CBC W Auto Diffe renti al panel - Blood eosinophil absolute 0.17 K/uL low: 0K/uLh igh: 0.7K/u L EOSIN OPHIL ABSOL VENETIE 0.17 0.00 - 0.70 K/uL 11/20 4:22 AM [facility] Not Available Not Available 12/24/2024 17:32:30 11/20/19 25 11/20/2024 CBC W Auto Diffe renti al panel - Blood basophils absolute 0.06 K/uL low: 0K/uLh igh: 0.2K/u L BASOP HILS ABSOL VENETIE 0.06 0.00 - 0.20 K/uL 11/20 4:22 AM [facility] Not Available Not Available 12/24/2024 17:32:30 11/20/19 25 11/20/2024 CBC W Auto Diffe renti al panel - Blood immature granulocytes absolute 0.06 K/uL low: 0K/uLh igh: 0.03K/ uL high IMMAT URE GRANU LOCYT ES ABSOL VENETIE 0.06 (H) 0.00 - 0.03 K/uL 11/20 4:22 AM [facility] Not Available Not Available 12/24/2024 17:32:30 11/20/19 25 11/20/2024 CBC W Auto Diffe renti al panel - Blood interpretati on and review of laboratory results Abnorm al Not Available Not Available 17:32:30 11/21/19 25 11/21/2024 Basic metab olic 1999 panel - Serum or Plasm a sodium [moles/volum e] in serum or plasma 130 mmol/ L low: 136mmo l/Lhig h: 145mmo l/L low SODIU M 130 (L) 136 - 145 mmol/ L 11/21 6:44 AM 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[employer] [facility] Not Available Not Available 12/24/2024 17:32:30 11/21/19 25 11/21/2024 Basic metab olic 1999 panel - Serum or Plasm a potassium [moles/volum e] in serum or plasma 5.6 mmol/ L low: 3.4mmo l/Lhig h: 5.1mmo l/L high POTAS SIUM 5.6 (H) 3.4 - 5.1 mmol/ L 11/21 6:44 AM [facility] Not Available Not Available 12/24/2024 17:32:30 11/21/19 25 11/21/2024 Basic metab olic 1999 panel - Serum or Plasm a chloride 103 mmol/ L low: 98mmol /Lhigh : 107mmo l/L CHLOR BURT 103 98 - 107 mmol/ L 11/21 6:44 AM [facility] Not Available Not Available 12/24/2024 17:32:30 11/21/19 25 11/21/2024 Basic metab olic 1999 panel - Serum or Plasm a carbon dioxide, total [moles/volum e] in serum or plasma 17 mmol/ L low: 22mmol /Lhigh : 29mmol /L low CO2 17 (L) 22 - 29 mmol/ L 11/21 6:44 AM [employer] [facility] Not Available Not Available 12/24/2024 17:32:30 11/21/19 25 11/21/2024 Basic metab olic 1999 panel - Serum or Plasm a calcium 9.5 mg/dL low: 8.6mg/ dLhigh : 10.4mg /dL CALCI UM 9.5 8.6 - 10.4 mg/dL 11/21 6:44 AM [employer] Not Available Not Available 12/24/2024 17:32:30 11/21/19 25 11/21/2024 Basic metab olic 1999 panel - Serum or Plasm a BUN 51 mg/dL low: 6mg/dL high: 20mg/d L high BUN 51 (H) 6 - 20 mg/dL 11/21 6:44 AM [facility] Not Available Not Available 12/24/2024 17:32:30 11/21/19 25 11/21/2024 Basic metab olic 1999 panel - Serum or Plasm a creatinine [mass/volume ] in serum or plasma 7.46 mg/dL low: 0.67mg /dLhig h: 1.17mg /dL high CREAT ININE 7.46 (H) 0.67 - 1.17 mg/dL 11/21 6:44 AM [facility] Not Available Not Available 12/24/2024 17:32:30 11/21/19 25 11/21/2024 Basic metab olic 1999 panel - Serum or Plasm a glucose [mass/volume ] in serum or plasma 174 mg/dL low: 74mg/d Lhigh: 99mg/d L high GLUCO SE 174 (H) 74 - 99 mg/dL 11/21 6:44 AM [employer] Not Available Not Available 12/24/2024 17:32:30 11/21/19 25 11/21/2024 Basic metab olic 2000 panel - Serum or Plasm a glomerular filtration rate/1.73 sq M.predicted [volume rate/area] in serum, plasma or blood by creatinine-b ased formula (CKD-epi 2020) 8 text: >=60 mL/min /1.73 sq meter low GFR 8 (L) >=60 mL/mi n/1.7 3 sq meter 11/21 6:44 AM [employer] ([employer] Not Available Not Available 12/24/2024 17:32:30 11/21/19 25 11/21/2024 Basic metab olic 2000 panel - Serum or Plasm a anion gap 10 mmol/ L low: 8mmol/ Lhigh: 16mmol /L ANION GAP 10 8 - 16 mmol/ L 11/21 6:44 AM [employer] ([employer] Not Available Not Available 12/24/2024 17:32:30 11/21/19 25 11/21/2024 Basic metab olic 2000 panel - Serum or Plasm a interpretati on and review of laboratory results Abnorm al Not Available Not Available 17:32:30 11/21/19 25 11/21/2024 CBC W Auto Diffe renti al panel - Blood leukocytes [#/volume] in blood 10.2 K/uL low: 4K/uLh igh: 9.8K/u L high WBC 10.2 (H) 4.0 - 9.8 K/uL 11/21 3:10 AM [employer] Not Available Not Available 12/24/2024 17:32:30 11/21/19 25 11/21/2024 CBC W Auto Diffe renti al panel - Blood RBC 2.25 text: 4.50 - 5.40 M/uL low RBC 2.25 (L) 4.50 - 5.40 M/uL 11/21 3:10 AM [employer] Not Available Not Available 12/24/2024 17:32:30 11/21/19 25 11/21/2024 CBC W Auto Diffe renti al panel - Blood hemoglobin 7.5 g/dL low: 13.6g/ dLhigh : 16.5g/ dL low HEMOG LOBIN 7.5 (L) 13.6 - 16.5 g/dL 11/21 3:10 AM [employer] ([employer] Not Available Not Available 12/24/2024 17:32:30 11/21/19 25 11/21/2024 CBC W Auto Diffe renti al panel - Blood hematocrit [volume fraction] of blood by automated count 23.8 % low: 40%hig h: 48% low HEMAT OCRIT 23.8 (L) 40.0 - 48.0 % 11/21 3:10 AM [facility] Not Available Not Available 12/24/2024 17:32:30 11/21/19 25 11/21/2024 CBC W Auto Diffe renti al panel - Blood MCV 105.8 fL low: 82fLhi gh: 99fL high MCV 105.8 (H) 82.0 - 99.0 fL 11/21 3:10 AM [facility] Not Available Not Available 12/24/2024 17:32:30 11/21/19 25 11/21/2024 CBC W Auto Diffe renti al panel - Blood MCH 33.3 pg low: 27.2pg high: 32.6pg high MCH 33.3 (H) 27.2 - 32.6 pg 11/21 3:10 AM [employer] Not Available Not Available 12/24/2024 17:32:30 11/21/19 25 11/21/2024 CBC W Auto Diffe renti al panel - Blood MCHC 31.5 g/dL low: 31.5g/ dLhigh : 35.5g/ dL MCHC 31.5 31.5 - 35.5 g/dL 11/21 3:10 AM [facility] Not Available Not Available 12/24/2024 17:32:30 11/21/19 25 11/21/2024 CBC W Auto Diffe renti al panel - Blood RDW 17.8 % low: 11.5%h igh: 14.5% high RDW 17.8 (H) 11.5 - 14.5 % 11/21 3:10 AM [facility] Not Available Not Available 12/24/2024 17:32:30 11/21/19 25 11/21/2024 CBC W Auto Diffe renti al panel - Blood RDW-stdev 70.4 fL low: 37.1fL high: 48.7fL high RDW-S TDEV 70.4 (H) 37.1 - 48.7 fL 11/21 3:10 AM [facility] Not Available Not Available 12/24/2024 17:32:30 11/21/19 25 11/21/2024 CBC W Auto Diffe renti al panel - Blood platelets [#/volume] in blood by automated count 370 K/uL low: 140K/u Lhigh: 350K/u L high PLATE LETS 370 (H) 140 - 350 K/uL 11/21 3:10 AM [facility] Not Available Not Available 12/24/2024 17:32:30 11/21/19 25 11/21/2024 CBC W Auto Diffe renti al panel - Blood MPV 9.9 fL low: 9.3fLh igh: 12.4fL MPV 9.9 9.3 - 12.4 fL 11/21 3:10 AM [facility] Not Available Not Available 12/24/2024 17:32:30 11/21/19 25 11/21/2024 CBC W Auto Diffe renti al panel - Blood neutrophils 81 % NEUTR OPHIL S 81 % 11/21 3:10 AM [facility] Not Available Not Available 12/24/2024 17:32:30 11/21/19 25 11/21/2024 CBC W Auto Diffe renti al panel - Blood lymphocytes/ 100 leukocytes in blood by automated count 8 % LYMPH OCYTE S 8 % 11/21 3:10 AM [facility] Not Available Not Available 12/24/2024 17:32:30 11/21/19 25 11/21/2024 CBC W Auto Diffe renti al panel - Blood monocytes 8 % MONOC YTES 8 % 11/21 3:10 AM [facility] Not Available Not Available 12/24/2024 17:32:30 11/21/19 25 11/21/2024 CBC W Auto Diffe renti al panel - Blood eosinophils 2 % EOSIN OPHIL S 2 % 11/21 3:10 AM [facility] Not Available Not Available 12/24/2024 17:32:30 11/21/19 25 11/21/2024 CBC W Auto Diffe renti al panel - Blood basophils 1 % BASOP HILS 1 % 11/21 3:10 AM [facility] Not Available Not Available 12/24/2024 17:32:30 11/21/19 25 11/21/2024 CBC W Auto Diffe renti al panel - Blood immature granulocytes 1 % IMMAT URE GRANU LOCYT ES 1 % 11/21 3:10 AM [facility] Not Available Not Available 12/24/2024 17:32:30 11/21/19 25 11/21/2024 CBC W Auto Diffe renti al panel - Blood neutrophils [#/volume] in blood by automated count 8.26 K/uL low: 1.9K/u Lhigh: 7K/uL high NEUTR OPHIL ABSOL VENETIE 8.26 (H) 1.90 - 7.00 K/uL 11/21 3:10 AM [facility] Not Available Not Available 12/24/2024 17:32:30 11/21/19 25 11/21/2024 CBC W Auto Diffe renti al panel - Blood lymphocyte absolute 0.79 K/uL low: 0.7K/u Lhigh: 4.5K/u L LYMPH OCYTE ABSOL VENETIE 0.79 0.70 - 4.50 K/uL 11/21 3:10 AM [facility] Not Available Not Available 12/24/2024 17:32:30 11/21/19 25 11/21/2024 CBC W Auto Diffe renti al panel - Blood monocyte absolute 0.77 K/uL low: 0.1K/u Lhigh: 1.3K/u L MONOC YTE ABSOL VENETIE 0.77 0.10 - 1.30 K/uL 11/21 3:10 AM 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[employer] [facility] Not Available Not Available 12/24/2024 17:32:30 11/21/19 25 11/21/2024 CBC W Auto Diffe renti al panel - Blood eosinophil absolute 0.19 K/uL low: 0K/uLh igh: 0.7K/u L EOSIN OPHIL ABSOL VENETIE 0.19 0.00 - 0.70 K/uL 11/21 3:10 AM [facility] Not Available Not Available 12/24/2024 17:32:30 11/21/19 25 11/21/2024 CBC W Auto Diffe renti al panel - Blood basophils absolute 0.08 K/uL low: 0K/uLh igh: 0.2K/u L BASOP HILS ABSOL VENETIE 0.08 0.00 - 0.20 K/uL 11/21 3:10 AM [employer] [facility] Not Available Not Available 12/24/2024 17:32:30 11/21/19 25 11/21/2024 CBC W Auto Diffe renti al panel - Blood immature granulocytes absolute 0.07 K/uL low: 0K/uLh igh: 0.03K/ uL high IMMAT URE GRANU LOCYT ES ABSOL VENETIE 0.07 (H) 0.00 - 0.03 K/uL 11/21 3:10 AM [facility] Not Available Not Available 12/24/2024 17:32:30 11/21/19 25 11/21/2024 CBC W Auto Diffe renti al panel - Blood interpretati on and review of laboratory results Abnorm al Not Available Not Available 17:32:30 11/21/19 25 11/21/2024 Renal funct ion 2000 panel - Serum or Plasm a sodium [moles/volum e] in serum or plasma 132 mmol/ L low: 136mmo l/Lhig h: 145mmo l/L low SODIU M 132 (L) 136 - 145 mmol/ L 11/21 4:55 AM [employer] [facility] Not Available Not Available 12/24/2024 17:32:30 11/21/19 25 11/21/2024 Renal funct ion 1999 panel - Serum or Plasm a potassium [moles/volum e] in serum or plasma 6.6 mmol/ L low: 3.4mmo l/Lhig h: 5.1mmo l/L critical high POTAS SIUM 6.6 (HH) 3.4 - 5.1 mmol/ L 11/21 4:55 AM [employer] [facility] Not Available Not Available 12/24/2024 17:32:30 11/21/19 25 11/21/2024 Renal funct ion 1999 panel - Serum or Plasm a chloride 103 mmol/ L low: 98mmol /Lhigh : 107mmo l/L CHLOR BURT 103 98 - 107 mmol/ L 11/21 4:55 AM [employer] [facility] Not Available Not Available 12/24/2024 17:32:30 11/21/19 25 11/21/2024 Renal funct ion 1999 panel - Serum or Plasm a carbon dioxide, total [moles/volum e] in serum or plasma 17 mmol/ L low: 22mmol /Lhigh : 29mmol /L low CO2 17 (L) 22 - 29 mmol/ L 11/21 4:55 AM [employer] Not Available Not Available 12/24/2024 17:32:30 11/21/19 25 11/21/2024 Renal funct ion 1999 panel - Serum or Plasm a calcium 9.3 mg/dL low: 8.6mg/ dLhigh : 10.4mg /dL CALCI UM 9.3 8.6 - 10.4 mg/dL 11/21 4:55 AM [employer] [facility] Not Available Not Available 12/24/2024 17:32:30 11/21/19 25 11/21/2024 Renal funct ion 1999 panel - Serum or Plasm a BUN 49 mg/dL low: 6mg/dL high: 20mg/d L high BUN 49 (H) 6 - 20 mg/dL 11/21 4:55 AM [employer] [facility] Not Available Not Available 12/24/2024 17:32:30 11/21/19 25 11/21/2024 Renal funct ion 1999 panel - Serum or Plasm a creatinine [mass/volume ] in serum or plasma 7.3 mg/dL low: 0.67mg /dLhig h: 1.17mg /dL high CREAT ININE 7.30 (H) 0.67 - 1.17 mg/dL 11/21 4:55 AM [employer] [facility] [employer] [facility] Not Available Not Available 12/24/2024 17:32:30 11/21/19 25 11/21/2024 Renal funct ion 1999 panel - Serum or Plasm a glucose [mass/volume ] in serum or plasma 105 mg/dL low: 74mg/d Lhigh: 99mg/d L high GLUCO SE 105 (H) 74 - 99 mg/dL 11/21 4:55 AM [employer] Not Available Not Available 12/24/2024 17:32:30 11/21/19 25 11/21/2024 Renal funct ion 1999 panel - Serum or Plasm a albumin 2.9 g/dL low: 3.5g/d Lhigh: 5.2g/d L low ALBUM IN 2.9 (L) 3.5 - 5.2 g/dL 11/21 4:55 AM [employer] [facility] Not Available Not Available 12/24/2024 17:32:30 11/21/19 25 11/21/2024 Renal funct ion 1999 panel - Serum or Plasm a phosphorus 4.7 mg/dL low: 2.5mg/ dLhigh : 4.5mg/ dL high PHOSP HORUS 4.7 (H) 2.5 - 4.5 mg/dL 11/21 4:55 AM [employer] [facility] Not Available Not Available 12/24/2024 17:32:30 11/21/19 25 11/21/2024 Renal funct ion 1999 panel - Serum or Plasm a glomerular filtration rate/1.73 sq M.predicted [volume rate/area] in serum, plasma or blood by creatinine-b ased formula (CKD-epi 2020) 8 text: >=60 mL/min /1.73 sq meter low GFR 8 (L) >=60 mL/mi n/1.7 3 sq meter 11/21 4:55 AM [employer] [facility] Not Available Not Available 12/24/2024 17:32:30 11/21/19 25 11/21/2024 Renal funct ion 1999 panel - Serum or Plasm a anion gap 12 mmol/ L low: 8mmol/ Lhigh: 16mmol /L ANION GAP 12 8 - 16 mmol/ L 11/21 4:55 AM [employer] [facility] Not Available Not Available 12/24/2024 17:32:30 11/21/19 25 11/21/2024 Renal funct ion 1999 panel - Serum or Plasm a interpretati on and review of laboratory results Abnorm al Not Available Not Available 17:32:30 11/22/19 25 11/22/2024 Renal funct ion 1999 panel - Serum or Plasm a sodium [moles/volum e] in serum or plasma 135 mmol/ L low: 136mmo l/Lhig h: 145mmo l/L low SODIU M 135 (L) 136 - 145 mmol/ L 11/22 7:06 AM [employer]FS ([employer] Not Available Not Available 12/24/2024 17:32:31 11/22/19 25 11/22/2024 Renal funct ion 1999 panel - Serum or Plasm a potassium [moles/volum e] in serum or plasma 5.9 mmol/ L low: 3.4mmo l/Lhig h: 5.1mmo l/L high POTAS SIUM 5.9 (H) 3.4 - 5.1 mmol/ L 11/22 7:06 AM [facility] Not Available Not Available 12/24/2024 17:32:31 11/22/19 25 11/22/2024 Renal funct ion 1999 panel - Serum or Plasm a chloride 102 mmol/ L low: 98mmol /Lhigh : 107mmo l/L CHLOR BURT 102 98 - 107 mmol/ L 11/22 7:06 AM [employer] [facility] Not Available Not Available 12/24/2024 17:32:31 11/22/19 25 11/22/2024 Renal funct ion 1999 panel - Serum or Plasm a carbon dioxide, total [moles/volum e] in serum or plasma 20 mmol/ L low: 22mmol /Lhigh : 29mmol /L low CO2 20 (L) 22 - 29 mmol/ L 11/22 7:06 AM [employer] [facility] Not Available Not Available 12/24/2024 17:32:31 11/22/19 25 11/22/2024 Renal funct ion 1999 panel - Serum or Plasm a calcium 9.6 mg/dL low: 8.6mg/ dLhigh : 10.4mg /dL CALCI UM 9.6 8.6 - 10.4 mg/dL 11/22 7:06 AM [employer] [facility] Not Available Not Available 12/24/2024 17:32:31 11/22/19 25 11/22/2024 Renal funct ion 1999 panel - Serum or Plasm a BUN 36 mg/dL low: 6mg/dL high: 20mg/d L high BUN 36 (H) 6 - 20 mg/dL 11/22 7:06 AM [employer] [facility] Not Available Not Available 12/24/2024 17:32:31 11/22/19 25 11/22/2024 Renal funct ion 1999 panel - Serum or Plasm a creatinine [mass/volume ] in serum or plasma 5.92 mg/dL low: 0.67mg /dLhig h: 1.17mg /dL high CREAT ININE 5.92 (H) 0.67 - 1.17 mg/dL 11/22 7:06 AM [employer] ([employer] Not Available Not Available 12/24/2024 17:32:31 11/22/19 25 11/22/2024 Renal funct ion 1999 panel - Serum or Plasm a glucose [mass/volume ] in serum or plasma 101 mg/dL low: 74mg/d Lhigh: 99mg/d L high GLUCO SE 101 (H) 74 - 99 mg/dL 11/22 7:06 AM [facility] Not Available Not Available 12/24/2024 17:32:31 11/22/19 25 11/22/2024 Renal funct ion 1999 panel - Serum or Plasm a albumin 3 g/dL low: 3.5g/d Lhigh: 5.2g/d L low ALBUM IN 3.0 (L) 3.5 - 5.2 g/dL 11/22 7:06 AM [employer] Not Available Not Available 12/24/2024 17:32:31 11/22/19 25 11/22/2024 Renal funct ion 1999 panel - Serum or Plasm a phosphorus 4.3 mg/dL low: 2.5mg/ dLhigh : 4.5mg/ dL PHOSP HORUS 4.3 2.5 - 4.5 mg/dL 11/22 7:06 AM [facility] Not Available Not Available 12/24/2024 17:32:31 11/22/19 25 11/22/2024 Renal funct ion 1999 panel - Serum or Plasm a glomerular filtration rate/1.73 sq M.predicted [volume rate/area] in serum, plasma or blood by creatinine-b ased formula (CKD-epi 2020) 10 text: >=60 mL/min /1.73 sq meter low GFR 10 (L) >=60 mL/mi n/1.7 3 sq meter 11/22 7:06 AM [employer] Not Available Not Available 12/24/2024 17:32:31 11/22/19 25 11/22/2024 Renal funct ion 1999 panel - Serum or Plasm a anion gap 13 mmol/ L low: 8mmol/ Lhigh: 16mmol /L ANION GAP 13 8 - 16 mmol/ L 11/22 7:06 AM [employer] ([employer] Not Available Not Available 12/24/2024 17:32:31 11/22/19 25 11/22/2024 Renal funct ion 2000 panel - Serum or Plasm a interpretati on and review of laboratory results Abnorm al Not Available Not Available 17:32:31 11/22/19 25 11/22/2024 CBC W Auto Diffe renti al panel - Blood leukocytes [#/volume] in blood 11.2 K/uL low: 4K/uLh igh: 9.8K/u L high WBC 11.2 (H) 4.0 - 9.8 K/uL 11/22 6:31 AM [employer] ([employer] Not Available Not Available 12/24/2024 17:32:30 11/22/19 25 11/22/2024 CBC W Auto Diffe renti al panel - Blood RBC 2.52 text: 4.50 - 5.40 M/uL low RBC 2.52 (L) 4.50 - 5.40 M/uL 11/22 6:31 AM [employer] Not Available Not Available 12/24/2024 17:32:30 11/22/19 25 11/22/2024 CBC W Auto Diffe renti al panel - Blood hemoglobin 8.5 g/dL low: 13.6g/ dLhigh : 16.5g/ dL low HEMOG LOBIN 8.5 (L) 13.6 - 16.5 g/dL 11/22 6:31 AM [facility] Not Available Not Available 12/24/2024 17:32:30 11/22/19 25 11/22/2024 CBC W Auto Diffe renti al panel - Blood hematocrit [volume fraction] of blood by automated count 26.9 % low: 40%hig h: 48% low HEMAT OCRIT 26.9 (L) 40.0 - 48.0 % 11/22 6:31 AM [employer]FS ([employer] Not Available Not Available 12/24/2024 17:32:30 11/22/19 25 11/22/2024 CBC W Auto Diffe renti al panel - Blood MCV 106.7 fL low: 82fLhi gh: 99fL high MCV 106.7 (H) 82.0 - 99.0 fL 11/22 6:31 AM 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[employer] [facility] Not Available Not Available 12/24/2024 17:32:30 11/22/19 25 11/22/2024 CBC W Auto Diffe renti al panel - Blood MCH 33.7 pg low: 27.2pg high: 32.6pg high MCH 33.7 (H) 27.2 - 32.6 pg 11/22 6:31 AM 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[employer] [facility] Not Available Not Available 12/24/2024 17:32:30 11/22/19 25 11/22/2024 CBC W Auto Diffe renti al panel - Blood MCHC 31.6 g/dL low: 31.5g/ dLhigh : 35.5g/ dL MCHC 31.6 31.5 - 35.5 g/dL 11/22 6:31 AM 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[employer] [facility] Not Available Not Available 12/24/2024 17:32:30 11/22/19 25 11/22/2024 CBC W Auto Diffe renti al panel - Blood RDW 16.9 % low: 11.5%h igh: 14.5% high RDW 16.9 (H) 11.5 - 14.5 % 11/22 6:31 AM [employer] Not Available Not Available 12/24/2024 17:32:30 11/22/19 25 11/22/2024 CBC W Auto Diffe renti al panel - Blood RDW-stdev 66.1 fL low: 37.1fL high: 48.7fL high RDW-S TDEV 66.1 (H) 37.1 - 48.7 fL 11/22 6:31 AM [facility] Not Available Not Available 12/24/2024 17:32:30 11/22/19 25 11/22/2024 CBC W Auto Diffe renti al panel - Blood platelets [#/volume] in blood by automated count 352 K/uL low: 140K/u Lhigh: 350K/u L high PLATE LETS 352 (H) 140 - 350 K/uL 11/22 6:31 AM 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[employer] [facility] Not Available Not Available 12/24/2024 17:32:30 11/22/19 25 11/22/2024 CBC W Auto Diffe renti al panel - Blood MPV 9.7 fL low: 9.3fLh igh: 12.4fL MPV 9.7 9.3 - 12.4 fL 11/22 6:31 AM 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[employer] [facility] Not Available Not Available 12/24/2024 17:32:30 11/22/19 25 11/22/2024 CBC W Auto Diffe renti al panel - Blood neutrophils 80 % NEUTR OPHIL S 80 % 11/22 6:31 AM 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[employer] [facility] Not Available Not Available 12/24/2024 17:32:30 11/22/19 25 11/22/2024 CBC W Auto Diffe renti al panel - Blood lymphocytes/ 100 leukocytes in blood by automated count 8 % LYMPH OCYTE S 8 % 11/22 6:31 AM [facility] Not Available Not Available 12/24/2024 17:32:30 11/22/19 25 11/22/2024 CBC W Auto Diffe renti al panel - Blood monocytes 8 % MONOC YTES 8 % 11/22 6:31 AM [facility] Not Available Not Available 12/24/2024 17:32:30 11/22/19 25 11/22/2024 CBC W Auto Diffe renti al panel - Blood eosinophils 2 % EOSIN OPHIL S 2 % 11/22 6:31 AM [facility] Not Available Not Available 12/24/2024 17:32:30 11/22/19 25 11/22/2024 CBC W Auto Diffe renti al panel - Blood basophils 1 % BASOP HILS 1 % 11/22 6:31 AM [facility] Not Available Not Available 12/24/2024 17:32:30 11/22/19 25 11/22/2024 CBC W Auto Diffe renti al panel - Blood immature granulocytes 1 % IMMAT URE GRANU LOCYT ES 1 % 11/22 6:31 AM [facility] Not Available Not Available 12/24/2024 17:32:30 11/22/19 25 11/22/2024 CBC W Auto Diffe renti al panel - Blood neutrophils [#/volume] in blood by automated count 9.01 K/uL low: 1.9K/u Lhigh: 7K/uL high NEUTR OPHIL ABSOL VENETIE 9.01 (H) 1.90 - 7.00 K/uL 11/22 6:31 AM [facility] [employer] [facility] Not Available Not Available 12/24/2024 17:32:30 11/22/19 25 11/22/2024 CBC W Auto Diffe renti al panel - Blood lymphocyte absolute 0.91 K/uL low: 0.7K/u Lhigh: 4.5K/u L LYMPH OCYTE ABSOL VENETIE 0.91 0.70 - 4.50 K/uL 11/22 6:31 AM [facility] Not Available Not Available 12/24/2024 17:32:30 11/22/19 25 11/22/2024 CBC W Auto Diffe renti al panel - Blood monocyte absolute 0.92 K/uL low: 0.1K/u Lhigh: 1.3K/u L MONOC YTE ABSOL VENETIE 0.92 0.10 - 1.30 K/uL 11/22 6:31 AM [facility] [employer] [facility] Not Available Not Available 12/24/2024 17:32:30 11/22/19 25 11/22/2024 CBC W Auto Diffe renti al panel - Blood eosinophil absolute 0.22 K/uL low: 0K/uLh igh: 0.7K/u L EOSIN OPHIL ABSOL VENETIE 0.22 0.00 - 0.70 K/uL 11/22 6:31 AM [employer] Not Available Not Available 12/24/2024 17:32:30 11/22/19 25 11/22/2024 CBC W Auto Diffe renti al panel - Blood basophils absolute 0.09 K/uL low: 0K/uLh igh: 0.2K/u L BASOP HILS ABSOL VENETIE 0.09 0.00 - 0.20 K/uL 11/22 6:31 AM 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[employer] [facility] Not Available Not Available 12/24/2024 17:32:30 11/22/19 25 11/22/2024 CBC W Auto Diffe renti al panel - Blood immature granulocytes absolute 0.07 K/uL low: 0K/uLh igh: 0.03K/ uL high IMMAT URE GRANU LOCYT ES ABSOL VENETIE 0.07 (H) 0.00 - 0.03 K/uL 11/22 6:31 AM [facility] Not Available Not Available 12/24/2024 17:32:30 11/22/19 25 11/22/2024 CBC W Auto Diffe renti al panel - Blood interpretati on and review of laboratory results Abnorm al Not Available Not Available 17:32:30 11/23/19 25 11/28/2024 Bacte shaneka ident ified in Speci men by Anaer obe+A erobe cultu re bacteria identified in specimen by culture STAPHY LOCOCC US EPIDER MIDIS abnormal CULTU RE STAPH YLOCO CCUS EPIDE RMIDI S (A) DAVID MCG/M L 11/28 11:33 AM [facility] Not Available Not Available 12/24/2024 17:32:31 11/23/19 25 11/28/2024 Bacte shaneka ident ified in Speci men by Anaer obe+A erobe cultu re microscopic observation [identifier] in specimen by gram stain No organi sms observ ed GRAM STAIN No organ isms obser evan 11/28 11:33 AM [facility] Not Available Not Available 12/24/2024 17:32:31 11/23/19 25 11/28/2024 Bacte shaneka ident ified in Speci men by Anaer obe+A erobe cultu re microscopic observation [identifier] in specimen by gram stain 1+ (Rare or Occasi onal) Polymo rphonu clear WBC GRAM STAIN 1+ (Rare or Occas ional ) Polym orpho nucle ar WBC 11/28 11:33 AM 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[facility] Not Available Not Available 12/24/2024 17:32:31 11/23/19 25 11/28/2024 Bacte shaneka ident ified in Speci men by Anaer obe+A erobe cultu re interpretati on and review of laboratory results Abnorm al Not Available Not Available 17:32:31 11/23/19 25 11/23/2024 Renal funct ion 1999 panel - Serum or Plasm a sodium [moles/volum e] in serum or plasma 134 mmol/ L low: 136mmo l/Lhig h: 145mmo l/L low SODIU M 134 (L) 136 - 145 mmol/ L 11/23 6:19 AM [facility] Not Available Not Available 12/24/2024 17:32:31 11/23/19 25 11/23/2024 Renal funct ion 1999 panel - Serum or Plasm a potassium [moles/volum e] in serum or plasma 4.5 mmol/ L low: 3.4mmo l/Lhig h: 5.1mmo l/L POTAS SIUM 4.5 3.4 - 5.1 mmol/ L 11/23 6:19 AM [facility] Not Available Not Available 12/24/2024 17:32:31 11/23/19 25 11/23/2024 Renal funct ion 1999 panel - Serum or Plasm a chloride 100 mmol/ L low: 98mmol /Lhigh : 107mmo l/L CHLOR BURT 100 98 - 107 mmol/ L 11/23 6:19 AM [facility] Not Available Not Available 12/24/2024 17:32:31 11/23/19 25 11/23/2024 Renal funct ion 1999 panel - Serum or Plasm a carbon dioxide, total [moles/volum e] in serum or plasma 21 mmol/ L low: 22mmol /Lhigh : 29mmol /L low CO2 21 (L) 22 - 29 mmol/ L 11/23 6:19 AM [employer] Not Available Not Available 12/24/2024 17:32:31 11/23/19 25 11/23/2024 Renal funct ion 1999 panel - Serum or Plasm a calcium 9.2 mg/dL low: 8.6mg/ dLhigh : 10.4mg /dL CALCI UM 9.2 8.6 - 10.4 mg/dL 11/23 6:19 AM [facility] Not Available Not Available 12/24/2024 17:32:31 11/23/19 25 11/23/2024 Renal funct ion 1999 panel - Serum or Plasm a BUN 37 mg/dL low: 6mg/dL high: 20mg/d L high BUN 37 (H) 6 - 20 mg/dL 11/23 6:19 AM [facility] Not Available Not Available 12/24/2024 17:32:31 11/23/19 25 11/23/2024 Renal funct ion 1999 panel - Serum or Plasm a creatinine [mass/volume ] in serum or plasma 6.21 mg/dL low: 0.67mg /dLhig h: 1.17mg /dL high CREAT ININE 6.21 (H) 0.67 - 1.17 mg/dL 11/23 6:19 AM [facility] Not Available Not Available 12/24/2024 17:32:31 11/23/19 25 11/23/2024 Renal funct ion 1999 panel - Serum or Plasm a glucose [mass/volume ] in serum or plasma 89 mg/dL low: 74mg/d Lhigh: 99mg/d L GLUCO SE 89 74 - 99 mg/dL 11/23 6:19 AM [employer] [facility] Not Available Not Available 12/24/2024 17:32:31 11/23/19 25 11/23/2024 Renal funct ion 1999 panel - Serum or Plasm a albumin 2.8 g/dL low: 3.5g/d Lhigh: 5.2g/d L low ALBUM IN 2.8 (L) 3.5 - 5.2 g/dL 11/23 6:19 AM [facility] Not Available Not Available 12/24/2024 17:32:31 11/23/19 25 11/23/2024 Renal funct ion 1999 panel - Serum or Plasm a phosphorus 4.2 mg/dL low: 2.5mg/ dLhigh : 4.5mg/ dL PHOSP HORUS 4.2 2.5 - 4.5 mg/dL 11/23 6:19 AM [facility] Not Available Not Available 12/24/2024 17:32:31 11/23/19 25 11/23/2024 Renal funct ion 1999 panel - Serum or Plasm a glomerular filtration rate/1.73 sq M.predicted [volume rate/area] in serum, plasma or blood by creatinine-b ased formula (CKD-epi 2020) 9 text: >=60 mL/min /1.73 sq meter low GFR 9 (L) >=60 mL/mi n/1.7 3 sq meter 11/23 6:19 AM [facility] Not Available Not Available 12/24/2024 17:32:31 11/23/19 25 11/23/2024 Renal funct ion 1999 panel - Serum or Plasm a anion gap 13 mmol/ L low: 8mmol/ Lhigh: 16mmol /L ANION GAP 13 8 - 16 mmol/ L 11/23 6:19 AM [employer] [facility] Not Available Not Available 12/24/2024 17:32:31 11/23/19 25 11/23/2024 Renal funct ion 2000 panel - Serum or Plasm a interpretati on and review of laboratory results Abnorm al Not Available Not Available 17:32:31 11/23/19 25 11/23/2024 CBC W Auto Diffe renti al panel - Blood leukocytes [#/volume] in blood 9.6 K/uL low: 4K/uLh igh: 9.8K/u L WBC 9.6 4.0 - 9.8 K/uL 11/23 4:11 AM [employer] [facility] Not Available Not Available 12/24/2024 17:32:07 11/23/19 25 11/23/2024 CBC W Auto Diffe renti al panel - Blood RBC 2.12 text: 4.50 - 5.40 M/uL low RBC 2.12 (L) 4.50 - 5.40 M/uL 11/23 4:11 AM LFS ([employer] Not Available Not Available 12/24/2024 17:32:07 11/23/19 25 11/23/2024 CBC W Auto Diffe renti al panel - Blood hemoglobin 7 g/dL low: 13.6g/ dLhigh : 16.5g/ dL low HEMOG LOBIN 7.0 (L) 13.6 - 16.5 g/dL 11/23 4:11 AM [employer]FS ([employer] Not Available Not Available 12/24/2024 17:32:07 11/23/19 25 11/23/2024 CBC W Auto Diffe renti al panel - Blood hematocrit [volume fraction] of blood by automated count 21.9 % low: 40%hig h: 48% low HEMAT OCRIT 21.9 (L) 40.0 - 48.0 % 11/23 4:11 AM [facility] [facility] Not Available Not Available 12/24/2024 17:32:07 11/23/19 25 11/23/2024 CBC W Auto Diffe renti al panel - Blood MCV 103.3 fL low: 82fLhi gh: 99fL high MCV 103.3 (H) 82.0 - 99.0 fL 11/23 4:11 AM [employer]FS ([employer] Not Available Not Available 12/24/2024 17:32:07 02/08/20 25 11/23/2024 CBC W Auto Diffe renti al panel - Blood MCH 33 pg low: 27.2pg high: 32.6pg high MCH 33.0 (H) 27.2 - 32.6 pg 11/23 4:11 AM LFS ([employer])[facility] Not Available Not Available 12/24/2024 17:32:07 11/23/19 25 11/23/2024 CBC W Auto Diffe renti al panel - Blood MCHC 32 g/dL low: 31.5g/ dLhigh : 35.5g/ dL MCHC 32.0 31.5 - 35.5 g/dL 11/23 4:11 AM LFS ([employer] Not Available Not Available 12/24/2024 17:32:07 11/23/19 25 11/23/2024 CBC W Auto Diffe renti al panel - Blood RDW 16.6 % low: 11.5%h igh: 14.5% high RDW 16.6 (H) 11.5 - 14.5 % 11/23 4:11 AM LFS ([employer] Not Available Not Available 12/24/2024 17:32:07 11/23/19 25 11/23/2024 CBC W Auto Diffe renti al panel - Blood RDW-stdev 62.7 fL low: 37.1fL high: 48.7fL high RDW-S TDEV 62.7 (H) 37.1 - 48.7 fL 11/23 4:11 AM LFS ([employer] Not Available Not Available 12/24/2024 17:32:07 11/23/19 25 11/23/2024 CBC W Auto Diffe renti al panel - Blood platelets [#/volume] in blood by automated count 346 K/uL low: 140K/u Lhigh: 350K/u L PLATE LETS 346 140 - 350 K/uL 11/23 4:11 AM LFS ([employer] Not Available Not Available 12/24/2024 17:32:07 11/23/19 25 11/23/2024 CBC W Auto Diffe renti al panel - Blood MPV 9.8 fL low: 9.3fLh igh: 12.4fL MPV 9.8 9.3 - 12.4 fL 11/23 4:11 AM 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[facility] Not Available Not Available 12/24/2024 17:32:07 11/23/19 25 11/23/2024 CBC W Auto Diffe renti al panel - Blood neutrophils 74 % NEUTR OPHIL S 74 % 11/23 4:11 AM [facility] Not Available Not Available 12/24/2024 17:32:07 11/23/19 25 11/23/2024 CBC W Auto Diffe renti al panel - Blood lymphocytes/ 100 leukocytes in blood by automated count 13 % LYMPH OCYTE S 13 % 11/23 4:11 AM [facility] Not Available Not Available 12/24/2024 17:32:07 11/23/19 25 11/23/2024 CBC W Auto Diffe renti al panel - Blood monocytes 10 % MONOC YTES 10 % 11/23 4:11 AM [facility] Not Available Not Available 12/24/2024 17:32:07 11/23/19 25 11/23/2024 CBC W Auto Diffe renti al panel - Blood eosinophils 2 % EOSIN OPHIL S 2 % 11/23 4:11 AM [facility] Not Available Not Available 12/24/2024 17:32:07 11/23/19 25 11/23/2024 CBC W Auto Diffe renti al panel - Blood basophils 1 % BASOP HILS 1 % 11/23 4:11 AM [facility] Not Available Not Available 12/24/2024 17:32:07 11/23/19 25 11/23/2024 CBC W Auto Diffe renti al panel - Blood immature granulocytes 1 % IMMAT URE GRANU LOCYT ES 1 % 11/23 4:11 AM [facility] Not Available Not Available 12/24/2024 17:32:07 11/23/19 25 11/23/2024 CBC W Auto Diffe renti al panel - Blood neutrophils [#/volume] in blood by automated count 7.09 K/uL low: 1.9K/u Lhigh: 7K/uL high NEUTR OPHIL ABSOL VENETIE 7.09 (H) 1.90 - 7.00 K/uL 11/23 4:11 AM [facility] Not Available Not Available 12/24/2024 17:32:07 11/23/19 25 11/23/2024 CBC W Auto Diffe renti al panel - Blood lymphocyte absolute 1.19 K/uL low: 0.7K/u Lhigh: 4.5K/u L LYMPH OCYTE ABSOL VENETIE 1.19 0.70 - 4.50 K/uL 11/23 4:11 AM [facility] Not Available Not Available 12/24/2024 17:32:07 11/23/19 25 11/23/2024 CBC W Auto Diffe renti al panel - Blood monocyte absolute 0.94 K/uL low: 0.1K/u Lhigh: 1.3K/u L MONOC YTE ABSOL VENETIE 0.94 0.10 - 1.30 K/uL 11/23 4:11 AM [employer] [facility] Not Available Not Available 12/24/2024 17:32:07 11/23/19 25 11/23/2024 CBC W Auto Diffe renti al panel - Blood eosinophil absolute 0.2 K/uL low: 0K/uLh igh: 0.7K/u L EOSIN OPHIL ABSOL VENETIE 0.20 0.00 - 0.70 K/uL 11/23 4:11 AM [facility] Not Available Not Available 12/24/2024 17:32:07 11/23/19 25 11/23/2024 CBC W Auto Diffe renti al panel - Blood basophils absolute 0.07 K/uL low: 0K/uLh igh: 0.2K/u L BASOP HILS ABSOL VENETIE 0.07 0.00 - 0.20 K/uL 11/23 4:11 AM [facility] Not Available Not Available 12/24/2024 17:32:07 11/23/19 25 11/23/2024 CBC W Auto Diffe renti al panel - Blood immature granulocytes absolute 0.06 K/uL low: 0K/uLh igh: 0.03K/ uL high IMMAT URE GRANU LOCYT ES ABSOL VENETIE 0.06 (H) 0.00 - 0.03 K/uL 11/23 4:11 AM [facility] Not Available Not Available 12/24/2024 17:32:07 11/23/19 25 11/23/2024 CBC W Auto Diffe renti al panel - Blood interpretati on and review of laboratory results Abnorm al Not Available Not Available 17:32:07 11/24/19 25 11/24/2024 Renal funct ion 1999 panel - Serum or Plasm a sodium [moles/volum e] in serum or plasma 134 mmol/ L low: 136mmo l/Lhig h: 145mmo l/L low SODIU M 134 (L) 136 - 145 mmol/ L 11/24 5:05 AM [facility] Not Available Not Available 12/24/2024 17:32:31 11/24/19 25 11/24/2024 Renal funct ion 1999 panel - Serum or Plasm a potassium [moles/volum e] in serum or plasma 4.3 mmol/ L low: 3.4mmo l/Lhig h: 5.1mmo l/L POTAS SIUM 4.3 3.4 - 5.1 mmol/ L 11/24 5:05 AM [facility] Not Available Not Available 12/24/2024 17:32:31 11/24/19 25 11/24/2024 Renal funct ion 1999 panel - Serum or Plasm a chloride 100 mmol/ L low: 98mmol /Lhigh : 107mmo l/L CHLOR BURT 100 98 - 107 mmol/ L 11/24 5:05 AM [employer] Not Available Not Available 12/24/2024 17:32:31 11/24/19 25 11/24/2024 Renal funct ion 1999 panel - Serum or Plasm a carbon dioxide, total [moles/volum e] in serum or plasma 24 mmol/ L low: 22mmol /Lhigh : 29mmol /L CO2 24 22 - 29 mmol/ L 11/24 5:05 AM [facility] Not Available Not Available 12/24/2024 17:32:31 11/24/19 25 11/24/2024 Renal funct ion 1999 panel - Serum or Plasm a calcium 9.1 mg/dL low: 8.6mg/ dLhigh : 10.4mg /dL CALCI UM 9.1 8.6 - 10.4 mg/dL 11/24 5:05 AM [facility] Not Available Not Available 12/24/2024 17:32:31 11/24/19 25 11/24/2024 Renal funct ion 1999 panel - Serum or Plasm a BUN 27 mg/dL low: 6mg/dL high: 20mg/d L high BUN 27 (H) 6 - 20 mg/dL 11/24 5:05 AM [facility] Not Available Not Available 12/24/2024 17:32:31 11/24/19 25 11/24/2024 Renal funct ion 1999 panel - Serum or Plasm a creatinine [mass/volume ] in serum or plasma 4.49 mg/dL low: 0.67mg /dLhig h: 1.17mg /dL high CREAT ININE 4.49 (H) 0.67 - 1.17 mg/dL 11/24 5:05 AM [facility] Not Available Not Available 12/24/2024 17:32:31 11/24/19 25 11/24/2024 Renal funct ion 1999 panel - Serum or Plasm a glucose [mass/volume ] in serum or plasma 71 mg/dL low: 74mg/d Lhigh: 99mg/d L low GLUCO SE 71 (L) 74 - 99 mg/dL 11/24 5:05 AM [facility] Not Available Not Available 12/24/2024 17:32:31 11/24/19 25 11/24/2024 Renal funct ion 2000 panel - Serum or Plasm a albumin 2.7 g/dL low: 3.5g/d Lhigh: 5.2g/d L low ALBUM IN 2.7 (L) 3.5 - 5.2 g/dL 11/24 5:05 AM [facility] Not Available Not Available 12/24/2024 17:32:31 11/24/19 25 11/24/2024 Renal funct ion 1999 panel - Serum or Plasm a phosphorus 2.8 mg/dL low: 2.5mg/ dLhigh : 4.5mg/ dL PHOSP HORUS 2.8 2.5 - 4.5 mg/dL 11/24 5:05 AM [facility] Not Available Not Available 12/24/2024 17:32:31 11/24/1911/24/2024 Renal funct ion 2000 panel - Serum or Plasm a glomerular filtration rate/1.73 sq M.predicted [volume rate/area] in serum, plasma or blood by creatinine-b ased formula (CKD-epi 2020) 14 text: >=60 mL/min /1.73 sq meter low GFR 14 (L) >=60 mL/mi n/1.7 3 sq meter 11/24 5:05 AM [facility] Not Available Not Available 12/24/2024 17:32:31 11/24/1911/24/2024 Renal funct ion 2000 panel - Serum or Plasm a anion gap 10 mmol/ L low: 8mmol/ Lhigh: 16mmol /L ANION GAP 10 8 - 16 mmol/ L 11/24 5:05 AM [facility] Not Available Not Available 12/24/2024 17:32:31 11/24/19 25 11/24/2024 Renal funct ion 2000 panel - Serum or Plasm a interpretati on and review of laboratory results Abnorm al Not Available Not Available 17:32:31 11/24/19 25 11/24/2024 CBC panel - Blood by Autom ated count leukocytes [#/volume] in blood 8.9 K/uL low: 4K/uLh igh: 9.8K/u L WBC 8.9 4.0 - 9.8 K/uL 11/24 5:01 AM [facility] [employer] Not Available Not Available 12/24/2024 17:32:07 11/24/19 25 11/24/2024 CBC panel - Blood by Autom ated count RBC 2.2 text: 4.50 - 5.40 M/uL low RBC 2.20 (L) 4.50 - 5.40 M/uL 11/24 5:01 AM [facility] Not Available Not Available 12/24/2024 17:32:07 11/24/19 25 11/24/2024 CBC panel - Blood by Autom ated count hemoglobin 7.3 g/dL low: 13.6g/ dLhigh : 16.5g/ dL low HEMOG LOBIN 7.3 (L) 13.6 - 16.5 g/dL 11/24 5:01 AM [facility] Not Available Not Available 12/24/2024 17:32:07 11/24/1911/24/2024 CBC panel - Blood by Autom ated count hematocrit [volume fraction] of blood by automated count 22.7 % low: 40%hig h: 48% low HEMAT OCRIT 22.7 (L) 40.0 - 48.0 % 11/24 5:01 AM [facility] Not Available Not Available 12/24/2024 17:32:07 11/24/19 25 11/24/2024 CBC panel - Blood by Autom ated count MCV 103.2 fL low: 82fLhi gh: 99fL high MCV 103.2 (H) 82.0 - 99.0 fL 11/24 5:01 AM [facility] Not Available Not Available 12/24/2024 17:32:07 11/24/19 25 11/24/2024 CBC panel - Blood by Autom ated count MCH 33.2 pg low: 27.2pg high: 32.6pg high MCH 33.2 (H) 27.2 - 32.6 pg 11/24 5:01 AM [facility] Not Available Not Available 12/24/2024 17:32:07 11/24/19 25 11/24/2024 CBC panel - Blood by Autom ated count MCHC 32.2 g/dL low: 31.5g/ dLhigh : 35.5g/ dL MCHC 32.2 31.5 - 35.5 g/dL 11/24 5:01 AM [facility] Not Available Not Available 12/24/2024 17:32:07 11/24/19 25 11/24/2024 CBC panel - Blood by Autom ated count platelets [#/volume] in blood by automated count 332 K/uL low: 140K/u Lhigh: 350K/u L PLATE LETS 332 140 - 350 K/uL 11/24 5:01 AM [facility] Not Available Not Available 12/24/2024 17:32:07 11/24/1911/24/2024 CBC panel - Blood by Autom ated count MPV 10.2 fL low: 9.3fLh igh: 12.4fL MPV 10.2 9.3 - 12.4 fL 11/24 5:01 AM [facility] Not Available Not Available 12/24/2024 17:32:07 11/24/19 25 11/24/2024 CBC panel - Blood by Autom ated count RDW 17.3 % low: 11.5%h igh: 14.5% high RDW 17.3 (H) 11.5 - 14.5 % 11/24 5:01 AM [facility] Not Available Not Available 12/24/2024 17:32:07 11/24/19 25 11/24/2024 CBC panel - Blood by Autom ated count RDW-stdev 65.5 fL low: 37.1fL high: 48.7fL high RDW-S TDEV 65.5 (H) 37.1 - 48.7 fL 11/24 5:01 AM [facility] Not Available Not Available 12/24/2024 17:32:07 11/24/19 25 11/24/2024 CBC panel - Blood by Autom ated count interpretati on and review of laboratory results Abnorm al Not Available Not Available 17:32:07 11/25/19 25 11/25/2024 Renal funct ion 1999 panel - Serum or Plasm a sodium [moles/volum e] in serum or plasma 133 mmol/ L low: 136mmo l/Lhig h: 145mmo l/L low SODIU M 133 (L) 136 - 145 mmol/ L 11/25 5:27 AM [facility] Not Available Not Available 12/24/2024 17:32:31 11/25/1911/25/2024 Renal funct ion 1999 panel - Serum or Plasm a potassium [moles/volum e] in serum or plasma 4.4 mmol/ L low: 3.4mmo l/Lhig h: 5.1mmo l/L POTAS SIUM 4.4 3.4 - 5.1 mmol/ L 11/25 5:27 AM [facility] Not Available Not Available 12/24/2024 17:32:31 11/25/19 25 11/25/2024 Renal funct ion 1999 panel - Serum or Plasm a chloride 97 mmol/ L low: 98mmol /Lhigh : 107mmo l/L low CHLOR BURT 97 (L) 98 - 107 mmol/ L 11/25 5:27 AM [facility] Not Available Not Available 12/24/2024 17:32:31 11/25/19 25 11/25/2024 Renal funct ion 1999 panel - Serum or Plasm a carbon dioxide, total [moles/volum e] in serum or plasma 24 mmol/ L low: 22mmol /Lhigh : 29mmol /L CO2 24 22 - 29 mmol/ L 11/25 5:27 AM [facility] Not Available Not Available 12/24/2024 17:32:31 11/25/19 25 11/25/2024 Renal funct ion 1999 panel - Serum or Plasm a calcium 9.7 mg/dL low: 8.6mg/ dLhigh : 10.4mg /dL CALCI UM 9.7 8.6 - 10.4 mg/dL 11/25 5:27 AM [facility] Not Available Not Available 12/24/2024 17:32:31 11/25/19 25 11/25/2024 Renal funct ion 1999 panel - Serum or Plasm a BUN 40 mg/dL low: 6mg/dL high: 20mg/d L high BUN 40 (H) 6 - 20 mg/dL 11/25 5:27 AM [facility] Not Available Not Available 12/24/2024 17:32:31 11/25/19 25 11/25/2024 Renal funct ion 1999 panel - Serum or Plasm a creatinine [mass/volume ] in serum or plasma 6.66 mg/dL low: 0.67mg /dLhig h: 1.17mg /dL high CREAT ININE 6.66 (H) 0.67 - 1.17 mg/dL 11/25 5:27 AM [facility] Not Available Not Available 12/24/2024 17:32:31 11/25/19 25 11/25/2024 Renal funct ion 1999 panel - Serum or Plasm a glucose [mass/volume ] in serum or plasma 101 mg/dL low: 74mg/d Lhigh: 99mg/d L high GLUCO SE 101 (H) 74 - 99 mg/dL 11/25 5:27 AM [facility] Not Available Not Available 12/24/2024 17:32:31 11/25/19 25 11/25/2024 Renal funct ion 1999 panel - Serum or Plasm a albumin 2.9 g/dL low: 3.5g/d Lhigh: 5.2g/d L low ALBUM IN 2.9 (L) 3.5 - 5.2 g/dL 11/25 5:27 AM [facility] Not Available Not Available 12/24/2024 17:32:31 11/25/19 25 11/25/2024 Renal funct ion 1999 panel - Serum or Plasm a phosphorus 4.1 mg/dL low: 2.5mg/ dLhigh : 4.5mg/ dL PHOSP HORUS 4.1 2.5 - 4.5 mg/dL 11/25 5:27 AM [facility] Not Available Not Available 12/24/2024 17:32:31 11/25/19 25 11/25/2024 Renal funct ion 1999 panel - Serum or Plasm a glomerular filtration rate/1.73 sq M.predicted [volume rate/area] in serum, plasma or blood by creatinine-b ased formula (CKD-epi 2020) 9 text: >=60 mL/min /1.73 sq meter low GFR 9 (L) >=60 mL/mi n/1.7 3 sq meter 11/25 5:27 AM [facility] Not Available Not Available 12/24/2024 17:32:31 11/25/19 25 11/25/2024 Renal funct ion 2000 panel - Serum or Plasm a anion gap 12 mmol/ L low: 8mmol/ Lhigh: 16mmol /L ANION GAP 12 8 - 16 mmol/ L 11/25 5:27 AM [facility] Not Available Not Available 12/24/2024 17:32:31 11/25/19 25 11/25/2024 Renal funct ion 2000 panel - Serum or Plasm a interpretati on and review of laboratory results Abnorm al Not Available Not Available 17:32:31 11/26/19 25 11/26/2024 Renal funct ion 2000 panel - Serum or Plasm a sodium [moles/volum e] in serum or plasma 131 mmol/ L low: 136mmo l/Lhig h: 145mmo l/L low SODIU M 131 (L) 136 - 145 mmol/ L 11/26 6:35 AM [facility] Not Available Not Available 12/24/2024 17:32:07 11/26/19 25 11/26/2024 Renal funct ion 1999 panel - Serum or Plasm a potassium [moles/volum e] in serum or plasma 4.9 mmol/ L low: 3.4mmo l/Lhig h: 5.1mmo l/L POTAS SIUM 4.9 3.4 - 5.1 mmol/ L 11/26 6:35 AM [facility] Not Available Not Available 12/24/2024 17:32:07 11/26/19 25 11/26/2024 Renal funct ion 1999 panel - Serum or Plasm a chloride 96 mmol/ L low: 98mmol /Lhigh : 107mmo l/L low CHLOR BURT 96 (L) 98 - 107 mmol/ L 11/26 6:35 AM [facility] Not Available Not Available 12/24/2024 17:32:07 11/26/19 25 11/26/2024 Renal funct ion 1999 panel - Serum or Plasm a carbon dioxide, total [moles/volum e] in serum or plasma 21 mmol/ L low: 22mmol /Lhigh : 29mmol /L low CO2 21 (L) 22 - 29 mmol/ L 11/26 6:35 AM [facility] Not Available Not Available 12/24/2024 17:32:07 11/26/19 25 11/26/2024 Renal funct ion 1999 panel - Serum or Plasm a calcium 10.3 mg/dL low: 8.6mg/ dLhigh : 10.4mg /dL CALCI UM 10.3 8.6 - 10.4 mg/dL 11/26 6:35 AM [facility] Not Available Not Available 12/24/2024 17:32:07 11/26/19 25 11/26/2024 Renal funct ion 1999 panel - Serum or Plasm a BUN 53 mg/dL low: 6mg/dL high: 20mg/d L high BUN 53 (H) 6 - 20 mg/dL 11/26 6:35 AM [facility] Not Available Not Available 12/24/2024 17:32:07 11/26/19 25 11/26/2024 Renal funct ion 1999 panel - Serum or Plasm a creatinine [mass/volume ] in serum or plasma 7.72 mg/dL low: 0.67mg /dLhig h: 1.17mg /dL high CREAT ININE 7.72 (H) 0.67 - 1.17 mg/dL 11/26 6:35 AM [facility] Not Available Not Available 12/24/2024 17:32:07 11/26/19 25 11/26/2024 Renal funct ion 1999 panel - Serum or Plasm a glucose [mass/volume ] in serum or plasma 100 mg/dL low: 74mg/d Lhigh: 99mg/d L high GLUCO SE 100 (H) 74 - 99 mg/dL 11/26 6:35 AM [facility] Not Available Not Available 12/24/2024 17:32:07 11/26/19 25 11/26/2024 Renal funct ion 1999 panel - Serum or Plasm a albumin 3.3 g/dL low: 3.5g/d Lhigh: 5.2g/d L low ALBUM IN 3.3 (L) 3.5 - 5.2 g/dL 11/26 6:35 AM [facility] Not Available Not Available 12/24/2024 17:32:07 11/26/19 25 11/26/2024 Renal funct ion 1999 panel - Serum or Plasm a phosphorus 4.5 mg/dL low: 2.5mg/ dLhigh : 4.5mg/ dL PHOSP HORUS 4.5 2.5 - 4.5 mg/dL 11/26 6:35 AM [facility] Not Available Not Available 12/24/2024 17:32:07 11/26/19 25 11/26/2024 Renal funct ion 1999 panel - Serum or Plasm a glomerular filtration rate/1.73 sq M.predicted [volume rate/area] in serum, plasma or blood by creatinine-b ased formula (CKD-epi 2020) 7 text: >=60 mL/min /1.73 sq meter low GFR 7 (L) >=60 mL/mi n/1.7 3 sq meter 11/26 6:35 AM 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[employer] [facility] Not Available Not Available 12/24/2024 17:32:07 11/26/19 25 11/26/2024 Renal funct ion 2000 panel - Serum or Plasm a anion gap 14 mmol/ L low: 8mmol/ Lhigh: 16mmol /L ANION GAP 14 8 - 16 mmol/ L 11/26 6:35 AM 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[employer] [facility] Not Available Not Available 12/24/2024 17:32:07 11/26/19 25 11/26/2024 Renal funct ion 2000 panel - Serum or Plasm a interpretati on and review of laboratory results Abnorm al Not Available Not Available 17:32:07 12/19/19 25 12/24/2024 Bacte shaneka ident ified in Speci men by Anaer obe+A erobe cultu re bacteria identified in specimen by anaerobe culture SEE NOTE [facility] C[facility]U RE SEE [facility] Not Available 12/24/2024 17:31:57 12/19/19 25 12/24/2024 Bacte shaneka ident ified in Speci men by Anaer obe+A erobe cultu re bacteria identified in specimen by aerobe culture SEE NOTE abnormal AEROB IC CULTU RE SEE NOTE (A) [facility] Not Available Not Available 12/24/2024 17:31:57 12/19/19 25 12/24/2024 Bacte shaneka ident ified in Speci men by Anaer obe+A erobe cultu re interpretati on and review of laboratory results Abnorm al Not Available Not Available 17:31:57 12/06/19 23 12/05/2022 XR, chest , 2 view No observ ation record ed. [facility] [address], [place], [address], 12/06/2022 11:38:43 03/06/20 23 03/06/2023 CT, abdom en + pelvi s, w/o contr ast No observ ation record ed. [address], [place], [address], 03/06/2023 12:46:38 05/25/20 23 05/23/2023 PET, skull base to mid-t high No observ ation record ed. [address], [place], [address], 06/13/2023 11:37:40 06/15/2006/14/2023 ct guide d needl e biops y (PROC ) No observ ation record ed. [address] [address], [place], [address], 06/15/2023 11:13:30 06/22/20 23 06/21/2023 XR, chest , 2 view No observ ation record ed. [address], [place], [address], 06/23/2023 10:57:46 10/26/19 24 10/25/2023 lab* No observ ation record ed. [address] [address], [place], [address], 10/26/2023 11:54:38 10/26/19 24 10/25/2023 lab* No observ ation record ed. [email or web address], [place], [address], 10/26/2023 11:54:45 10/26/19 24 10/25/2023 lab* No observ ation record ed. [address], [place], [address], 10/26/2023 11:54:52 11/03/19 24 10/25/2023 US, echo ardio gram, trans thora cic, compl ete, w/ color flow No observ ation record ed. [address], [place], [address], 11/03/2023 15:21:02 02/27/20 24 02/27/2024 CT, chest , w/o contr ast No observ ation record ed. [address], [place], [address], 02/28/2024 10:32:32 06/07/20 24 05/16/2024 cole r monit or No observ ation record ed. [facility] Not Available 2023 14:40:16 09/04/20 24 09/03/2024 CT, chest + abdom en + pelvi s, w/o contr ast No observ ation record ed. [address], [place], [address], 09/04/2024 16:33:27 09/17/20 24 09/17/2024 XR, chest , 2 view No observ ation record ed. [address], [place], [address], 09/19/2024 19:04:41 11/05/19 25 11/05/2024 PET, skull base to mid-t high No observ ation record ed. [address], [place], [address], 11/06/2024 13:13:38 11/09/19 25 11/09/2024 XR, foot, 3 or more view No observ ation record ed. [address], [place], [address], 11/19/2024 17:24:11 11/10/19 25 11/09/2024 XR, foot, 2 view No observ ation record ed. [address], [place], [address], 11/19/2024 17:24:12 11/10/19 25 11/10/2024 MRI, ankle + foot, w/o contr ast No observ ation record ed. [address], [place], [address], 11/19/2024 17:24:12 Result Notes None recorded. Problems Name Problem SNOMED Code Status Onset Date Resolution Date Notes Provider Name and Address Organization Details Recorded Time Irregular heart beat 843566053 Active 2019 Tatianna Frank MA null, [place] [facility] 0 15:31:42 Bilateral hearing loss 94262190 Active 2021 [facility] Attn: Hema chery,[address] [place], [address], [place] [facility] 2 10:54:39 Renal cell carcinoma 516208072 Active 2021 Right, found 04/26/22 [facility] Attn: Hema chery,[address] [facility], [place], [address], [place] [facility] 3 10:05:14 Essential hypertensi on 07497660 Active 2021 [facility] Attn: Hema chery,[address] [facility], [place], [address], [place] [facility] 2 10:57:01 Tobacco dependence syndrome 92565922 Active 2021 [facility] Attn: Hema chery,[address] [facility], [place], [address], [place] [facility] 2 13:06:45 Alcohol dependence 51875253 Active 2021 [facility] Attn: Hema chery,[address] [place], [address], [place] [facility] 2 13:06:52 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 032204086 Active 2021 [facility] Attn: Hema chery,[address] [place], [address], [place] [facility] 2 11:31:07 Umbilical hernia 364560937 Active 2021 [facility] Attn: Nevinmargarita chery,[address] [facility], [place], [address], [place] [facility] 2 11:06:26 Excision of right kidney Active 2021 removed 05/10/22 [facility] Attn: Nevinmargarita chery,[address] [facility], [place], [address], [place] [facility] 2 21:09:42 Neuropathy 630104950 Active 2021 [facility] Attn: Hema miri,[address] [facility], [place], [address], [place] [facility] 2 18:40:51 Chronic neck pain 371200769354 7 Active 2021 [facility] Attn: Hema miri,[address] [facility], [place], [address], [place] [facility] 2 18:41:02 Chronic kidney disease stage 5 468490982 Active 2021 [facility] Attn: Nevinmargarita chery,[address] [facility], [place], [address], [place] [facility] 2 21:12:11 Screening for malignant neoplasm of colon Active 2022 due for repeat 2025 [facility] Attn: Hema miri,[address] [facility], [place], [address], [place] [facility] 3 14:56:10 End-stage renal disease 64874593 Active 2023 [facility] Attn: Hema chery,[address] [facility], [place], [address], [place] [facility] 4 17:24:47 Problem Notes None recorded. Procedures Surgical History None recorded. Imaging Results Imaging Date Name Status LastModified by Organiz ation Details LastModified Time 12/05/2022 XR, chest, 2 view completed [address], [place], [address], 12/06/2022 11:38:43 03/06/2023 CT, abdomen + pelvis, w/o contrast completed [address], [place], [address], 03/06/2023 12:46:38 05/23/2023 PET, skull base to mid-thigh completed [address], [place], [address], 06/13/2023 11:37:40 06/14/2023 ct guided needle biopsy (PROC) completed [address], [place], [address], 06/15/2023 11:13:30 06/21/2023 XR, chest, 2 view completed [address], [place], [address], 06/23/2023 10:57:46 10/25/2023 lab* [email or web address] [address], [place], [address], 10/26/2023 11:54:38 10/25/2023 lab* [email or web address] [facility] [address], [place], [address], 10/26/2023 11:54:45 10/25/2023 lab* [email or web address] [facility] [address], [place], [address], 10/26/2023 11:54:52 10/25/2023 US, echocardiogra m, transthoracic , complete, w/ color flow completed [address], [place], [address], 11/03/2023 15:21:02 02/27/2024 CT, chest, w/o contrast completed [address] [facility], [place], [address], 02/28/2024 10:32:32 05/16/2024 holter monitor completed [facility] Information not available 06/07/2024 14:40:16 09/03/2024 CT, chest + abdomen + pelvis, w/o contrast completed [address], [address], 09/04/2024 16:33:27 09/17/2024 XR, chest, 2 view completed [address], [address], 09/19/2024 19:04:41 11/05/2024 PET, skull base to mid-thigh completed [address], [address], 11/06/2024 13:13:38 11/09/2024 XR, foot, 3 or more view completed [address], [address], 11/19/2024 17:24:11 11/09/2024 XR, foot, 2 view completed [address] [address], [place], [address], 11/19/2024 17:24:12 11/10/2024 MRI, ankle + foot, w/o contrast completed [address], [address], 11/19/2024 17:24:12 Procedure Notes None recorded. Medical Equipment None Reported. Allergies No known drug allergies Medications Name Sig Start Date Stop Date Status Note LastModified by Organization Details LastModified Time furosemide 40 mg tablet TAKE 1 TABLET BY MOUTH EVERY DAY 04/26 completed Not Available Not Available Not Available atorvastati n 40 mg tablet TAKE 1 TABLET BY MOUTH EVERY NIGHT AT BEDTIME active Not Available Not Available No t Available hydralazine 10 mg tablet TAKE 1 TABLET BY MOUTH THREE TIMES DAILY 08/15 completed Not Available Not Available Not Available bupropion HCl SR 150 mg tablet,12 hr sustained-r elease 12/19 completed Not Available Not Available Not Available hydrocodone 5 mg-acetamin ophen 325 mg tablet TAKE 1-2 TABLETS BY MOUTH EVERY 6 HOURS NEEDED FOR 06/21 completed Not Available Not Available Not Available sevelamer HCl 800 mg tablet TAKE 1 TABLET BY MOUTH THREE TIMES DAILY WITH MEALS 12/24 completed Not Available Not Available Not Available metoprolol succinate ER 200 mg tablet,exte nded release 24 hr Take 1 tablet every day by oral route in the morning for 90 days. 2024 active Not Available Not Available Not Avai lable lisinopril 20 mg tablet TAKE 1 TABLET BY MOUTH EVERY DAY 07/01 completed Not Available Not Available Not Available metoprolol succinate ER 100 mg tablet,exte nded release 24 hr TAKE 1 TABLET BY MOUTH EVERY DAY 12/24 completed Not Available Not Available Not Available hydralazine 25 mg tablet TAKE 1 TABLET BY MOUTH TWICE DAILY 12/24 completed Not Available Not Available Not Available pantoprazol e 20 mg tablet,janet yed release TAKE 1 TABLET BY MOUTH TWICE DAILY FOR 4 WEEKS 12/24 completed Not Available Not Available Not Available nicotine (polacrilex ) 4 mg gum CHEW 1 PIECE BY MOUTH NEEDED FOR NICOTINE CRAVINGS 08/15 completed Not Available Not Available Not Available sodium bicarbonate 650 mg tablet TAKE 1 TABLET BY MOUTH TWICE DAILY DIRECTED active Not Available Not Available No t Available amlodipine 10 mg tablet TAKE 1 TABLET BY MOUTH EVERY DAY active Not Available Not Available No t Available cephalexin 500 mg capsule TAKE 1 CAPSULE BY MOUTH EVERY 12 HOURS 06/02 completed Not Available Not Available Not Available lisinopril 10 mg tablet Take 1 tablet every day by oral route. 12/28 completed Not Available Not Available Not Available nicotine 21 mg/24 hr daily transdermal patch APPLY NEW PATCH TO SKIN ONCE DAILY active Not Available Not Available No t Available docusate sodium 100 mg capsule TAKE ONE CAPSULE BY MOUTH TWICE DAILY 08/15 completed Not Available Not Available Not Available folic acid 1 mg tablet Take 1 tablet every day by oral route. 12/28 completed Not Available Not Available Not Available hydralazine 50 mg tablet TAKE 1 TABLET BY MOUTH TWICE DAILY active Not Available Not Available No t Available furosemide 20 mg tablet TAKE 1 TABLET BY MOUTH EVERY DAY IN THE MORNING active Not Available Not Available No t Available amoxicillin 875 mg-potassiu m clavulanate 125 mg tablet TAKE 1 TABLET BY MOUTH EVERY 12 HOURS FOR 10 DAYS active Not Available Not Available No t Available Vitamin B1 100 mg tablet Take by oral route. 12/28 completed Not Available Not Available Not Available Asprin Ec Low Dose 81 mg tablet,janet yed release Take 1 tablet every day by oral route. 08/15 completed Not Available Not Available Not Available sodium bicarbonate active Not Available Not Available Not Available sevelamer carbonate 800 mg tablet TAKE 2 TABLETS BY MOUTH THREE TIMES DAILY WITH MEALS active Not Available Not Available No t Available Anna Chewable Low Dose Aspirin 81 mg tablet Chew 1 tablet every day by oral route for 30 days. 12/24 completed OTC Not Available Not Available Not Available Eliquis 5 mg tablet Take 1 tablet twice a day by oral route as directed for 30 days. 2024 active Not Available Not Available Not Avai lable fluticasone furoate 200 mcg-vilante rol 25 mcg/dose inhalation powder INHALE 1 PUFF BY MOUTH DAILY active Not Available Not Available No t Available bupropion HCl 150 mg tablet,12 hr sustained-r elease(smok ing deterrent) TAKE 1 TABLET EVERYDAY FOR 3 DAYS THEN TAKE 1 TABLET TWICE A DAY FOR 30 DAYS 06/13 completed Not Available Not Available Not Available Vitals Date Recorded Body height Body mass index (BMI) Body weight Oxygen saturation Oxygen saturation in Arterial blood by Pulse oximetry Heart rate Systolic blood pressure Diastolic blood pressure Provider Name and Address Organization Details Last Updated DateTime 3 182.88 cm 28.1 kg/m2 57826.0 2 g 99 % 99 % 86 /min 140 mm[Hg] 72 mm[Hg] Opal Pugh [place] - [facility] 3 10:01:06 Date Recorded Respiratory rate Systolic blood pressure Diastolic blood pressure Provider Name and Address Organization Details Last Updated DateTime 10/24/2022 18 /min 128 mm[Hg] 72 mm[Hg] INGE HACKETT Attn: Accounting, [address], [place], [address], [place] [facility] 10/24/2022 10:23:32 Date Recorded Body height Body mass index (BMI) Body weight Oxygen saturation Oxygen saturation in Arterial blood by Pulse oximetry Heart rate Respiratory rate Body temperature Systolic blood pressure Diastolic blood pressure Provider Name and Address Organization Details Last Updated DateTime 3 182.88 cm 29.2 kg/m2 73528.7 6 g 95 % 95 % 74 /min 16 /min 97.5 [degF] 140 mm[Hg] 74 mm[Hg] Cammy Nieves [facility] - [facility] 3 10:59:30 Date Recorded Systolic blood pressure Diastolic blood pressure Provider Name and Address Organization Details Last Updated DateTime 12/19/2022 138 mm[Hg] 70 mm[Hg] INGE HACKETT Attn: Accounting, [place], [address], [place] [facility] 12/19/2022 11:24:43 Date Recorded Body height Body mass index (BMI) Body weight Oxygen saturation Oxygen saturation in Arterial blood by Pulse oximetry Heart rate Body temperature Systolic blood pressure Diastolic blood pressure Provider Name and Address Organization Details Last Updated DateTime 3 182.88 cm 29.3 kg/m2 68332.3 5 g 98 % 98 % 72 /min 98.3 [degF] 165 mm[Hg] 72 mm[Hg] Cammy Nieves [facility] - [facility] 10:06:40 Date Recorded Respiratory rate Systolic blood pressure Diastolic blood pressure Provider Name and Address Organization Details Last Updated DateTime 06/13/2023 18 /min 150 mm[Hg] 72 mm[Hg] INGE HACKETT Attn: Accounting, [address] [place], [address], [place] [facility] 06/13/2023 10:32:42 Date Recorded Body height Body mass index (BMI) Body weight Oxygen saturation Oxygen saturation in Arterial blood by Pulse oximetry Heart rate Systolic blood pressure Diastolic blood pressure Provider Name and Address Organization Details Last Updated DateTime 3 182.88 cm 27.5 kg/m2 68133.2 5 g 98 % 98 % 65 /min 179 mm[Hg] 73 mm[Hg] Cathi Coyle MA [facility] 3 11:07:12 Date Recorded Respiratory rate Systolic blood pressure Diastolic blood pressure Provider Name and Address Organization Details Last Updated DateTime 08/04/2023 18 /min 140 mm[Hg] 70 mm[Hg] INGE HACKETT Attn: Accounting, [address] [place], [address], [facility] 08/04/2023 11:31:36 Date Recorded Body height Body mass index (BMI) Body weight Oxygen saturation Oxygen saturation in Arterial blood by Pulse oximetry Heart rate Respiratory rate Systolic blood pressure Diastolic blood pressure Provider Name and Address Organization Details Last Updated DateTime 182.88 cm 26.7 kg/m2 05913.7 g 96 % 96 % 102 /min 20 /min 125 mm[Hg] 78 mm[Hg] Opal Pugh MA [facility] 5 16:45:31 Date Recorded Heart rate Provider Name an Address Organization Details Last Updated DateTime 12/24/2024 90 /min INGE HACKETT Attn: Accounting,[address] [place], [address], [facility] 12/30/2024 09:11:19 Social History Question Answer Notes LastModified by Organizat ion Details LastModified Time Tobacco Smoking Status Current Every Day Smoker Tatianna Frank MA null, [facility] 12/28/2020 16:47:06 What Is Your Level Of Alcohol Consumption? Occasional [email or web address] Information not available 08/04/2023 Are You Blind Or Do You Have Difficulty Seeing? No Information not available 02/21/2022 What Is Your Level Of Caffeine Consumption? Occasional Information not available 02/18/2020 How Much Tobacco Do You Chew? None Information not available 02/18/2020 In The 14 Days Before Symptom Onset, Have You Had Close Contact With A Laboratory-confir med COVID-19 While That Case Was Ill? No Information not available 02/21/2022 In The 14 Days Before Symptom Onset, Have You Had Close Contact With A Person Who Is Under Investigation For COVID-19 While That Person Was Ill? No Information not available 02/21/2022 Have You Been To An Area Known To Be High Risk For COVID-19? No Information not available 02/21/2022 Are You Deaf Or Do You Have Serious Difficulty Hearing? No Information not available 02/21/2022 What Type Of Diet Are You Following? REGULAR Information not available 02/21/2022 Which Illicit Or Recreational Drugs Have You Used? None Information not available 02/18/2020 Do You Or Have You Ever Used E-cigarettes Or Vape? Never Used Electronic Cigarettes Information not available 02/18/2020 Are There Any Guns Present In Your Home? No Information not available 02/21/2022 What Was The Date Of Your Most Recent Tobacco Screening? 12/24/2024 [email or web address] Information not available 12/24/2024 What Is Your Current Pack Years? [email or web address] [email or web address] Information not available 12/28/2020 Do You Have Smoke And Carbon Monoxide Detectors In Your Home? Yes Information not available 02/21/2022 At What Age Did You Start Smoking Tobacco? 11 Information not available 02/18/2020 Are You Passively Exposed To Smoke? Yes Information no t available 02/18/2020 Do You Or Have You Ever Used Smokeless Tobacco? Never Used Smokeless Tobacco Information not available 02/18/2020 How Much Tobacco Do You Smoke? 1 PPD Information not available 02/18/2020 Do You Use Any Illicit Or Recreational Drugs? No Information not available 12/28/2020 Do You Use Sunscreen Routinely? No Information not available 02/21/2022 Has Tobacco Cessation Counseling Been Provided? Yes Information not available 12/28/2020 On What Date Was Tobacco Cessation Counseling Provided? 12/24/2024 [email or web address] Information not available 12/24/2024 How Many Years Have You Smoked Tobacco? 49 Information not available 02/18/2020 Do You Or Have You Ever Used Any Other Forms Of Tobacco Or Nicotine? Yes Information not available 12/28/2020 Sex: Male Functional Status Question Answer Note LastModified by Organizat ion Details LastModified Time Are you able to care for yourself? Yes Information not available 02/21/2022 What is your exercise level? Occasional Information not available 02/21/2022 Mental Status None recorded. Family History Relationship Description Onset Age of this Age Resolved Age Notes LastModified by Organization Details LastModified Time Father Family history of malignant neoplasm Unknow n type-R are form of lukemi a that turned bone marrow into scar tissue [email or web address] Not available 02/18/2020 15:32:44 Mother Family history of malignant neoplasm Found mass in chest and pushed up agains t her lungs [email or web address] Not available 02/18/2020 15:32:44 Medical History Condition Response Coronary Artery Disease N Other N High Blood Pressure Y Atrial Fibrillation N Thyroid Problems N Kidney or Bladder Problems N GI Problems N Depression N COPD N Blood Clots N Skin Problems N Eating Disorder N Anemia N Heart Attack (OK) N Anxiety Disorder N Diabetes N Muscle, Joint, or Bone Problems N Seizures/Epilepsy N Acid Reflux (GERD) N Cancer N Stroke N Asthma N Allergies N ADHD N Substance Abuse N High Cholesterol N Hepatitis N Liver Disease N Schizophrenia N Headaches N Heart Failure N Osteoporosis N Immunizations Vaccine Type Date Status Note Provider Nam e and Address Organization Details Recorded Time Tdap 2 completed Cammy Nieves CMA [place], [place] [facility] 10/24/2022 10:25:47 SARS-COV-2 (COVID-19) vaccine, UNSPECIFIED 2 completed Cammy Nieves C[place], [place] [facility] 10/24/2022 10:26:49 COVID-19, mRNA, LNP-S, PF, 30 mcg/0.3 mL dose 1 completed Cathi Coyle [place], [place] [facility] 12/02/2024 09:18:37 COVID-19, mRNA, LNP-S, PF, 30 mcg/0.3 mL dose 1 completed Cathi Coyle [place], [place] [facility] 12/02/2024 09:18:37 COVID-19, mRNA, LNP-S, PF, 30 mcg/0.3 mL dose 1 completed LIANNE Ramirez, [place] [facility] 12/02/2024 09:18:37 COVID-19, mRNA, LNP-S, PF, 30 mcg/0.3 mL dose, diann-sucrose 2 completed Cathimaryjane CoyleLIANNE null, [place] [facility] 12/02/2024 09:18:37 Tdap 2 completed Cathi Coyle LIANNE [place] [facility] 12/02/2024 09:18:37 Influenza, split virus, quadrivalent, PF 0 completed Cathi Coyle, [place]AN[place] [facility] 12/02/2024 09:18:37 Influenza, split virus, quadrivalent, PF 1 completed Cathi Coyle [place]AN[place] [facility] 12/02/2024 09:18:37 Influenza, split virus, quadrivalent, PF 3 completed INGE HACKETT Attn: Accounting,[address] [place], [address], [place] [facility] 10/24/2022 13:53:49 Pneumococcal conjugate PCV20, polysaccharide TNU002 conjugate, adjuvant, PF 3 completed INGE HACKETT Attn: Accounting,[address] [place], [address], [place] [facility] 10/24/2022 13:53:49 Influenza, split virus, quadrivalent, PF 3 completed INGE HACKETT Attn: Accounting,[address] [place], [address], [place] [facility] 08/04/2023 12:34:19 Past Encounters Encounter ID Performer Location Encounter Start Date Encounter Closed Date Diagnosis/Indication Diagnosis SNOMED-CT Code Diagnosis ICD10 Code Diagnosis Note [id number] Bev Chandler MD [facility] [address] [place] [address] 02/18/2020 11:32:38 02/24/2020 06:10:37 Essential hypertension 97578461 I10 174/117, pulse 145; patient was asked to call us with follow up blood pressure next week. [id number] Bev Chandler MD [facility] [address] [place] [address] 12/28/2020 08:09:29 12/31/2020 10:17:06 Essential hypertension 30691105 I10 174/117, pulse 145; patient was asked to call us with follow up blood pressure next week. Adult heal th examination 565131506 Z00.[id number] [facility] [address] [place] [address] 12/28/2021 13:45:33 12/29/2021 10:48:07 Essential hypertension 65904658 I10 routine labspt taking lasix, unsure of why he is takingwill check kidney function today to see if can dc Screening for malignant neoplasm of colon 303351477 Z12.11 constipati on occurs every 2-3 daysno blood in stoolshas not had colon cancer screeningd iscussed cologuard vs colonoscop ysent for GI consult with colonoscop lizbeth del rosario increasing fluid intake, high fiber foods Neuropathy 507581570 G62 .9 chronic to bilateral feet x30 yrsdecreas ed sensation to ball of right foot up to toes and unable to feel sensation from ball of L foot up to toesEMG Onychomyco sis of toenails 698810159 B35.1 severe to all toespodiat ry referral Depression screening 171 121507 Z13.31 PHQ 0 Pre-surger y evaluation 619491647 Z01.818 cataract surgery scheduled 03/07/22eva l has to be completed no more than 30 days before surgeryadv ised pt to f/u in 6 wks to complete form [id number] INGE HACKETT [facility] [address] [place] [address] 02/21/2022 09:43:49 02/22/2022 10:28:59 Pre-surgery evaluation [id number] Z01.818 02/21/22: cataract surgery scheduled 03/07/22PEx - nlcomplete d medical clearance form and faxed 12/28/21:ca taract surgery scheduled 03/07/22eva l has to be completed no more than 30 days before surgeryadv ised pt to f/u in 6 wks to complete form Essential hypertension 00461387 I10 02/21/22: BP controlled todayno med changesreq uested records from nephrology and urology 12/30/21: Cr 2.79- advised pt of lab results, CKD stage 4 and rec'd pt go to hospital. he was amendable to go to [place] 12/28/21:casa beckham labspt taking lasix, unsure of why he is takingwill check kidney function today to see if can dc Neuropathy 450330018 G62 .9 02/21/22:pt has upcoming EMGs scheduled 12/28/21:ch ronic to bilateral feet x30 yrsdecreas ed sensation to ball of right foot up to toes and unable to feel sensation from ball of L foot up to toesEMG Onychomyco sis of toenails 065271162 B35.1 02/21/22:turner nted off referral and encouraged pt to call to schedule appt 12/28/21:se kathy to all toespodiat ry referral Screening for malignant neoplasm of colon 105603936 Z12.11 02/21/22: pt reports constipati on has improved, increasing water intake and high fiber foodsprint ed off referral and encouraged pt to call to schedule appt 12/28/21:co nstipation occurs every 2-3 daysno blood in stoolshas not had colon cancer screeningd iscussed cologuard vs colonoscop ysent for GI consult with colonoscop yencourage d increasing fluid intake, high fiber foods Chronic ki dney disease stage 4 897117131 N18.4 Cr 2.79follow ing with Dr. Mcnulty (Nephrolog y) and Dr. Collins (Urology)M RI showed 6.1 cm mass to R kidney consistent with renal cell carcinomap t states that he is waiting to see if kidney function improves, if not he will have to go on dialysis or have R kidney removedreq uested records [id number] INGE HACKETT [facility] [address] [place] [address] 04/26/2022 10:13:50 04/27/2022 10:16:08 Chronic kidney disease stage 4 962628568 N18.4 05/10/22: R nephrectom y on 05/10/[address] Mayberry (Urology [facility])follow ing with Dr. Mcnulty (Nephrolog y)spoke with Dr. Mcnulty, will resume all meds and hold lasix Cr 2.79follow ing with Dr. Mcnulty (Nephrolog y) and Dr. Collins (Urology)M RI showed 6.1 cm mass to R kidney consistent with renal cell carcinomap t states that he is waiting to see if kidney function improves, if not he will have to go on dialysis or have R kidney removedreq uested records Essential hypertension 61847836 I10 04/26/22: BP 166/86did not take BP medication s yethas been out of meds x5 dayswill refill, hold lasix 02/21/22: BP controlled todayno med changesreq uested records from nephrology and urology 12/30/21: Cr 2.79- advised pt of lab results, CKD stage 4 and rec'd pt go to hospital. he was amendable to go to [place] 12/28/21:casa beckham labspt taking lasix, unsure of why he is takingwill check kidney function today to see if can dc Neuropathy 150640708 G62 .9 04/26/22:do ne 04/14/22wil l request records 02/21/22:pt has upcoming EMGs scheduled 12/28/21:ch ronic to bilateral feet x30 yrsdecreas ed sensation to ball of right foot up to toes and unable to feel sensation from ball of L foot up to toesEMG Umbilical hernia 2700645 07 K42.9 PEx- non-reduci ble, non-tender , not strangulat edremoval 05/10/[address] Benjamin Bilateral hearing loss 11030536 H91.93 c/o chronic tinnitushe ars mumbling when in conversati ons with multiple people, hard to focus hearingfam felecia told him he has hearing issuesPEx- bilateral EACs clear, TMs nlwill order hearing screen at f/u Depression screening 171 520977 Z13.31 PHQ 0 Renal cell carcinoma 702 191978 C64.9 MRI showed 6.1 cm mass to R kidney consistent with renal cell carcinomaR nephrectom y on 05/10/22 [id number] Darci milner MD [facility] [address] [place] [address] 05/25/2022 11:41:52 05/26/2022 13:24:04 Renal cell carcinoma 790683082 C64.9 05/25/22: pt reports surgery went wellpathol ogy study showed 7.5 cm renal cell carcinoma, R nephrectom y, all margins negative for invasive carcinomah as f/u with surgeon tomorrow 04/26/22:MR I showed 6.1 cm mass to R kidney consistent with renal cell carcinomaR nephrectom y on 05/10/22 Chronic ki dney disease stage 4 565353329 N18.4 05/26/22:sp marzena with Kaya Shahid, pt's sister at 11:15 AMPt's Cr 5.5 and eGFR is 12, she is waiting for call back from Dr. Elaine formed pt he will need to go to EDlabs 05/17/22: ordered by Dr Davidson (unknown who provider is in relation to patient)BU N 48, Cr 4.44, eGFR 14, K 5.6 slightly elevatedsi ster reports Dr ordered more blood work, pending blood work pt may need to go to ED or have closer f/u with Dr. Treviño referred dialysis questions and plan to Dr. Mcnulty 05/25/22: has f/u with Dr. Mayberry tomorrow and appt 06/06/[address] Mcnulty 05/10/22: R nephrectom y on 05/10/[address] Mayberry (Urology [facility])follow ing with Dr. Mcnulty (Nephrolog y)spoke with Dr. Mcnulty, will resume all meds and hold lasix Cr 2.79follow ing with Dr. Mcnulty (Nephrolog y) and Dr. Collins (Urology)M RI showed 6.1 cm mass to R kidney consistent with renal cell carcinomap t states that he is waiting to see if kidney function improves, if not he will have to go on dialysis or have R kidney removedreq uested records Essential hypertension 06379437 I10 05/25/22:ca n take ASA for primary prevention due to tobacco use 04/26/22: BP 166/86did not take BP medication s yethas been out of meds x5 dayswill refill, hold lasix 02/21/22: BP controlled todayno med changesreq uested records from nephrology and urology 12/30/21: Cr 2.79- advised pt of lab results, CKD stage 4 and rec'd pt go to hospital. he was amendable to go to [place] 12/28/21:casa beckham labspt taking lasix, unsure of why he is takingwill check kidney function today to see if can dc Umbilical hernia 4213932 07 K42.9 05/25/22:merchant d f/u with surgeon yesterday, mesh is in place, minor swelling, not concerned 04/26/22:PE x- non-reduci ble, non-tender , not strangulat edremoval 05/10/[address] Benjamin Neuropathy [id number] G62 .9 05/25/22:EM G showed severe motor and sensory neuropathy to bilateral lower extremitie s, needle and EMG exam neurogenic but no active fibrillati onsreferre d to neurologyp rinted off referral and encouraged pt to call to schedule appt 04/26/22:do ne 04/14/22sher tran request records 02/21/22:pt has upcoming EMGs scheduled 12/28/21:ch ronic to bilateral feet x30 yrsdecreas ed sensation to ball of right foot up to toes and unable to feel sensation from ball of L foot up to toesEMG Bilateral hearing loss 79304079 H91.93 05/25/22:re georges for hearing screenprin madie off referral and encouraged pt to call to schedule appt 04/26/22:c/ o chronic tinnitushe ars mumbling when in conversati ons with multiple people, hard to focus hearingfam felecia told him he has hearing issuesPEx- bilateral EACs clear, TMs nlwill order hearing screen at f/u Depression screening 171 651111 Z13.31 PHQ 0 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 111611319 M21.6X9 05/26/22:di scussed results with pt and sisterXR L foot showed hypertroph ic bony fusion at 1st MTP joint, arterial calcificat ionspt denies any pain or issues with walkingwil l refer to podiatry 05/25/22:L MTP joint enlarged, unable to extend L big toeno pain Chronic neck pain 987195 1803 107 M54.2 05/16/22: discussed results with pt and sister-XR C spine showed grade 1 listheses at C3-4 and C4-5, multilevel DDD, multilevel severe facet arthropath ycould be causing neuropathy referred pt to neuro for severe BLE neuropathy 05/25/22:20 05 fell off ladderwas told he had compressio n in cervical spinal cordpt has chronic neuropathy to bilateral lower extremitie s found on EMGc/o numbness to L thigh and intermitte nt pain to R thighPEx- unable to extend C spineorder ed XR C spine Alcohol dependence 20959 003 F10.20 drinking 1 pint of cheap vodka per day x3 yrsstopped [address] to sur[address]ysis ter is requesting medication to help with withdrawal sxdiscusse d that pt is not showing withdrawal symptoms, out of withdrawal window at this timeoffere d outpatient treatment, pt refused at this time [id number] INGE HACKETT [facility] [address] [place] [address] 06/24/2022 09:46:21 06/28/2022 10:02:50 Essential hypertension 20315385 I10 06/24/22:BP check 132/74BP at home 120s-150s/ 70-90s, 1 hr after taking medication marybeth wrist cuffrec'd arm cuffwill send to pharmacy and see if they will cover 05/25/22:ca n take ASA for primary prevention due to tobacco use 04/26/22: BP 166/86did not take BP medication s yethas been out of meds x5 dayswill refill, hold lasix 02/21/22: BP controlled todayno med changesreq uested records from nephrology and urology 12/30/21: Cr 2.79- advised pt of lab results, CKD stage 4 and rec'd pt go to hospital. he was amendable to go to [place] 12/28/21:casa beckham labspt taking lasix, unsure of why he is takingwill check kidney function today to see if can dc [id number] INGE HACKETT [facility] [address] [place] [address] 07/01/2022 10:32:41 07/05/2022 09:24:24 Chronic kidney disease stage 4 521481265 N18.4 07/01/22:co mpleted kidney smart classfollo wing with nephrology Cr 4.44, eGFR 14- unchanged since 05/2022 labs 05/26/22:sp marzena with Kaya Shahid, pt's sister at 11:15 AMPt's Cr 5.5 and eGFR is 12, she is waiting for call back from Dr. Elaine formed pt he will need to go to EDlabs 05/17/22: ordered by Dr Davidson (unknown who provider is in relation to patient)BU N 48, Cr 4.44, eGFR 14, K 5.6 slightly elevatedsi ster reports Dr ordered more blood work, pending blood work pt may need to go to ED or have closer f/u with Dr. Treviño referred dialysis questions and plan to Dr. Mcnulty 05/25/22: has f/u with Dr. Mayberry tomorrow and appt 06/06/[address] Mcnulty 05/10/22: R nephrectom y on 05/10/[address] Mayberry (Urology [facility])follow ing with Dr. Mcnulty (Nephrolog y)spoke with Dr. Mcnulty, will resume all meds and hold lasix Cr 2.79follow ing with Dr. Mcnulty (Nephrolog y) and Dr. 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 extremitie s, needle and EMG exam neurogenic but no active fibrillati onsreferre d to neurologyp rinted off referral and encouraged pt to call to schedule appt 04/26/22:do ne 04/14/22wil l request records 02/21/22:pt has upcoming EMGs scheduled 12/28/21:ch miguel to bilateral feet x30 yrsdecreas ed sensation to ball of right foot up to toes and unable to feel sensation from ball of L foot up to toesEMG Chronic neck pain 694151 0917 107 M54.2 07/01/22:ne uro appt in 1 mo 05/16/22: discussed results with pt and sister-XR C spine showed grade 1 listheses at C3-4 and C4-5, multilevel DDD, multilevel severe facet arthropath ycould be causing neuropathy referred pt to neuro for severe BLE neuropathy 05/25/22:20 05 fell off ladderwas told he had compressio n in cervical spinal cordpt has chronic neuropathy to bilateral lower extremitie s found on EMGc/o numbness to L thigh and intermitte nt pain to R thighPEx- unable to extend C spineorder ed XR C spine 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 040687504 M21.6X9 07/01/22:fo llowing with podiatryha llux rigidus L foot- conservati ve txtook biopsy of toe nail, pending, rec'd topical therapy for onychomyco sis 05/26/22:di scussed results with pt and sisterXR L foot showed hypertroph ic bony fusion at 1st MTP joint, arterial calcificat ionspt denies any pain or issues with walkingwil l refer to podiatry 05/25/22:L MTP joint enlarged, unable to extend L big toeno pain Alcohol dependence 47346 003 F10.20 07/01/22:dr joyce 1/2 pint/daypt refused outpatient treatment 05/25/22:dr joyce 1 pint of cheap vodka per day x3 yrsstopped 2 wks ago due to surgerysis ter is requesting medication to help with withdrawal sxdiscusse d that pt is not showing withdrawal symptoms, out of withdrawal window at this timeoffere d outpatient treatment, pt refused at this time Essential hypertension 31629663 I10 07/01/22:BP today 140/80BP at home 150s-170s/ 90snephro stopped lisinopril 20increase hydralazin e from 10 mg TID to 25 mg BIDadvised to check BP at home, goal BP <130/80, f/u with BP log in 1 wk 05/25/22:ca n take ASA for primary prevention due to tobacco use 04/26/22: BP 166/86did not take BP medication s yethas been out of meds x5 dayswill refill, hold lasix 02/21/22: BP controlled todayno med changesreq uested records from nephrology and urology 12/30/21: Cr 2.79- advised pt of lab results, CKD stage 4 and rec'd pt go to hospital. he was amendable to go to [place] 12/28/21:casa [place] labspt taking lasix, unsure of why he is takingwill check kidney function today to see if can dc Bilateral hearing loss 13525858 H91.93 07/01/22:horacio ivan with audiologis t who completed report. she is concerned bc pt had no ear drum movement present in either ear. Wanted pt to be evaluated for this before hearing aids. will send to ENT and pt is awareprint ed off referral and encouraged pt to call to schedule appt 05/25/22:re georges for hearing screenprin madie off referral and encouraged pt to call to schedule appt 04/26/22:c/ o chronic tinnitushe ars mumbling when in conversati ons with multiple people, hard to focus hearingfam felecia told him he has hearing issuesPEx- bilateral EACs clear, TMs nlwill order hearing screen at f/u [id number] INGE HACKETT [facility] [address] [place] [address] 08/15/2022 10:51:52 08/16/2022 12:08:52 Essential hypertension 64752194 I10 08/15/22: BP 138/84took meds 1 hour before apptadvise d to check BP at homef/u in 3 days with BP log 07/01/22:BP today 140/80BP at home 150s-170s/ 90snephro stopped lisinopril 20increase hydralazin e from 10 mg TID to 25 mg BIDadvised to check BP at home, goal BP <130/80, f/u with BP log in 1 wk 05/25/22:ca n take ASA for primary prevention due to tobacco use 04/26/22: BP 166/86did not take BP medication s yethas been out of meds x5 dayswill refill, hold lasix 02/21/22: BP controlled todayno med changesreq uested records from nephrology and urology 12/30/21: Cr 2.79- advised pt of lab results, CKD stage 4 and rec'd pt go to hospital. he was amendable to go to [place] 12/28/21:casa beckham labspt taking lasix, unsure of why he is takingwill check kidney function today to see if can dc Neuropathy [id number] G62 .9 08/15/22: neuro told pt, neuropathy is likely due to alcohol useDrJennyfer Alegria at [place] (Neurology ), did blood work, pt has f/u in 07/01/22:ne uro appt in 1 mo 05/25/22:EM G showed severe motor and sensory neuropathy to bilateral lower extremitie s, needle and EMG exam neurogenic but no active fibrillati onsreferre d to neurologyp rinted off referral and encouraged pt to call to schedule appt 04/26/22:do ne 04/14/22wil l request records 02/21/22:pt has upcoming EMGs scheduled 12/28/21:ch miguel to bilateral feet x30 yrsdecreas ed sensation to ball of right foot up to toes and unable to feel sensation from ball of L foot up to toesEMG Chronic neck pain [id number] M54.2 08/15/22:n euro told pt not related to foot neuropathy pt does not want referral for interventi on at this time 07/01/22:ne uro appt in 1 mo 05/16/22: discussed results with pt and sister-XR C spine showed grade 1 listheses at C3-4 and C4-5, multilevel DDD, multilevel severe facet arthropath ycould be causing neuropathy referred pt to neuro for severe BLE neuropathy 05/25/22:20 05 fell off ladderwas told he had compressio n in cervical spinal cordpt has chronic neuropathy to bilateral lower extremitie s found on EMGc/o numbness to L thigh and intermitte nt pain to R thighPEx- unable to extend C spineorder ed XR C spine Bilateral hearing loss [id number] H91.93 08/15/22:i nsurance will not cover hearing aideshas appt to get fitted for [facility] he has to buy hearing aides OTC 07/01/22:sp marzena with audiologis t who completed report. she is concerned bc pt had no ear drum movement present in either ear. Wanted pt to be evaluated for this before hearing aids. will send to ENT and pt is awareprint ed off referral and encouraged pt to call to schedule appt 05/25/22:re georges for hearing screenprin madie off referral and encouraged pt to call to schedule appt 04/26/22:c/ o chronic tinnitushe ars mumbling when in conversati ons with multiple people, hard to focus hearingfam felecia told him he has hearing issuesPEx- bilateral EACs clear, TMs nlwill order hearing screen at f/u Alcohol dependence 94426 003 F10.20 08/15/22:4 ounces/day trying to cut backrefuse d outpatient treatment at this time 07/01/22:dr joyce 1/2 pint/daypt refused outpatient treatment 05/25/22:dr joyce 1 pint of cheap vodka per day x3 yrsstopped 2 [address] to surgerysis ter is requesting medication to help with withdrawal sxdiscusse d that pt is not showing withdrawal symptoms, out of withdrawal window at this timeoffere d outpatient treatment, pt refused at this time Chronic ki dney disease stage 5 [id number] N18.5 08/15/22:S aw nephro 08/02/22:h old KERI/ARB given severity of CKD and K, low protein dietdiscus sed low protein/lo w potassium dietrefer to Vascular surgery for vein mapping, pt wants to do peritoneal dialysisha s appt on 09/02/22 at [place] 07/01/22:co mpleted kidney smart classfollo wing with nephrology Cr 4.44, eGFR 14- unchanged since 05/2022 labs 05/26/22:sp marzena with Kaya Shahid, pt's sister at 11:15 AMPt's Cr 5.5 and eGFR is 12, she is waiting for call back from Dr. Elaine formed pt he will need to go to EDlabs 05/17/22: ordered by Dr Davidson (unknown who provider is in relation to patient)BU N 48, Cr 4.44, eGFR 14, K 5.6 slightly elevatedsi ster reports Dr ordered more blood work, pending blood work pt may need to go to ED or have closer f/u with Dr. Treviño referred dialysis questions and plan to Dr. Mcnulty 05/25/22: has f/u with Dr. Mayberry tomorrow and appt 06/06/[address] Mcnulty 05/10/22: R nephrectom y on 05/10/[address] Mayberry (Urology [facility])follow ing with Dr. Mcnulty (Nephrolog y)spoke with Dr. Mcnulty, will resume all meds and hold lasix Cr 2.79follow ing with Dr. Mcnulty (Nephrolog y) and Dr. Collins (Urology)M RI showed 6.1 cm mass to R kidney consistent with renal cell carcinomap t states that he is waiting to see if kidney function improves, if not he will have to go on dialysis or have R kidney removedreq uested records Tobacco de pendence syndrome [id number] F17.200 1/2 ppd currentlyw as smoking 1.5 ppd to 2 ppd before kidney surgerytri al nicotine patches Chronic ki dney disease stage 4 [id number] N18.4 07/01/22:co mpleted kidney smart classfollo wing with nephrology Cr 4.44, eGFR 14- unchanged since 05/2022 labs 05/26/22:sp marzena with Kaya Shahid, pt's sister at 11:15 AMPt's Cr 5.5 and eGFR is 12, she is waiting for call back from Dr. Elaine formed pt he will need to go to EDlabs 05/17/22: ordered by Dr Davidson (unknown who provider is in relation to patient)BU N 48, Cr 4.44, eGFR 14, K 5.6 slightly elevatedsi ster reports Dr ordered more blood work, pending blood work pt may need to go to ED or have closer f/u with Dr. Treviño referred dialysis questions and plan to Dr. Mcnulty 05/25/22: has f/u with Dr. Mayberry tomorrow and appt 06/06/[address] Mcnulty 05/10/22: R nephrectom y on 05/10/[address] Mayberry (Urology [facility])follow ing with Dr. Mcnulty (Nephrolog y)spoke with Dr. Mcnulty, will resume all meds and hold lasix Cr 2.79follow ing with Dr. Mcnulty (Nephrolog y) and Dr. Collins (Urology)M RI showed 6.1 cm mass to R kidney consistent with renal cell carcinomap t states that he is waiting to see if kidney function improves, if not he will have to go on dialysis or have R kidney removedreq uested records [id number] [facility] [address] [place] [address] 10/24/2022 09:47:18 10/26/2022 09:28:07 Chronic kidney disease stage 5 [id number] N18.5 10/24/22:fis xiao R forearm, placed 09/20/22not on dialysis yethas f/u with Dr. Mcnulty in 1 moPEx- palpable thrill to R forearmf/u in 2 mo for routine blood workdue for pneumonia vaccine 08/15/22:S aw nephro 08/02/22:h old KERI/ARB given severity of CKD and K, low protein dietdiscus sed low protein/lo w potassium dietrefer to Vascular surgery for vein mapping, pt wants to do peritoneal dialysisha s appt on 09/02/22 at [place] 07/01/22:co mpleted kidney smart classfollo wing with nephrology Cr 4.44, eGFR 14- unchanged since 05/2022 labs 05/26/22:sp marzena with Kaya Shahid, pt's sister at 11:15 AMPt's Cr 5.5 and eGFR is 12, she is waiting for call back from Dr. Elaine formed pt he will need to go to EDlabs 05/17/22: ordered by Dr Davidson (unknown who provider is in relation to patient)BU N 48, Cr 4.44, eGFR 14, K 5.6 slightly elevatedsi ster reports Dr ordered more blood work, pending blood work pt may need to go to ED or have closer f/u with Dr. Treviño referred dialysis questions and plan to Dr. Mcnulty 05/25/22: has f/u with Dr. Mayberry tomorrow and appt 06/06/[address] Mcnulty 05/10/22: R nephrectom y on 05/10/[address] Mayberry (Urology [facility])follow ing with Dr. Mcnulty (Nephrolog y)spoke with Dr. Mcnulty, will resume all meds and hold lasix Cr 2.79follow ing with Dr. Mcnulty (Nephrolog y) and Dr. Collins (Urology)M RI showed 6.1 cm mass to R kidney consistent with renal cell carcinomap t states that he is waiting to see if kidney function improves, if not he will have to go on dialysis or have R kidney removedreq uested records Essential hypertension [id number] I10 10/24/22:BP 128/72refi ll meds 08/15/22:B P 138/84took meds 1 hour before apptadvise d to check BP at homef/u in 3 days with BP log 07/01/22:BP today 140/80BP at home 150s-170s/ 90snephro stopped lisinopril 20increase hydralazin e from 10 mg TID to 25 mg BIDadvised to check BP at home, goal BP <130/80, f/u with BP log in 1 wk 05/25/22:ca n take ASA for primary prevention due to tobacco use 04/26/22: BP 166/86did not take BP medication s yethas been out of meds x5 dayswill refill, hold lasix 02/21/22: BP controlled todayno med changesreq uested records from nephrology and urology 12/30/21: Cr 2.79- advised pt of lab results, CKD stage 4 and rec'd pt go to hospital. he was amendable to go to [place] 12/28/21:ro utine labspt taking lasix, unsure of why he is takingwill check kidney function today to see if can dc Bilateral hearing loss [id number] H91.93 10/24/22:rec 'd hearing aide to L ear 08/15/22:i nsurance will not cover hearing aideshas appt to get fitted for hearing aides tomorrow at [facility] he has to buy hearing aides OTC 07/01/22:sp marzena with audiologis t who completed report. she is concerned bc pt had no ear drum movement present in either ear. Wanted pt to be evaluated for this before hearing aids. will send to ENT and pt is awareprint ed off referral and encouraged pt to call to schedule appt 05/25/22:re georges for hearing screenprin madie off referral and encouraged pt to call to schedule appt 04/26/22:c/ o chronic tinnitushe ars mumbling when in conversati ons with multiple people, hard to focus hearingfam felecia told him he has hearing issuesPEx- bilateral EACs clear, TMs nlwill order hearing screen at f/u Neuropathy [id number] G62 .9 10/24/22:has f/u in 1 mo 08/15/22: neuro told pt, neuropathy is likely due to alcohol useDrJennyfer Alegria at [place] (Neurology ), did blood work, pt has f/u in Dec 07/01/22:ne uro appt in 1 mo 05/25/22:EM G showed severe motor and sensory neuropathy to bilateral lower extremitie s, needle and EMG exam neurogenic but no active fibrillati onsreferre d to neurologyp rinted off referral and encouraged pt to call to schedule appt 04/26/22:do ne 04/14/22wil l request records 02/21/22:pt has upcoming EMGs scheduled 12/28/21:ch ronic to bilateral feet x30 yrsdecreas ed sensation to ball of right foot up to toes and unable to feel sensation from ball of L foot up to toesEMG Tobacco de pendence syndrome [id number] F17.200 10/24/22:unk nown if can try wellbutrin due to CKDover 1/2 ppd 08/15/22:1 /2 ppd currentlyw as smoking 1.5 ppd to 2 ppd before kidney surgerytri al nicotine patches Alcohol dependence 47627 003 F10.20 10/24/22:sti ll drinking 4 ounces/day of cheap vodkarefus ed outpatient treatment at this time 08/15/22:4 ounces/day trying to cut backrefuse d outpatient treatment at this time 07/01/22:dr joyce 1/2 pint/daypt refused outpatient treatment 05/25/22:dr joyce 1 pint of cheap vodka per day x3 yrsstopped 2 wks ago due to surgerysis ter is requesting medication to help with withdrawal sxdiscusse d that pt is not showing withdrawal symptoms, out of withdrawal window at this timeoffere d outpatient treatment, pt refused at this time Administra tion of influenza vaccine [id number] Z23 Screening for malignant neoplasm of colon 704779519 Z12.11 10/24/22:ref er for colonoscop y 02/21/22: pt reports constipati on has improved, increasing water intake and high fiber foodsprint ed off referral and encouraged pt to call to schedule appt 12/28/21:co nstipation occurs every 2-3 daysno blood in stoolshas not had colon cancer screeningd iscussed cologuard vs colonoscop ysent for GI consult with colonoscop yencourage d increasing fluid intake, high fiber foods Overweight [id number] E66 .3 discussed increasing exercise and healthier food options Depression screening 171 073052 Z13.31 PHQ 0 [id number] [facility] [address] [place] [address] 12/19/2022 10:53:06 12/19/2022 11:28:41 Chronic kidney disease stage 5 [id number] N18.5 12/19/22:rob d trying to hold off on dialysis as long as possiblest arted back on lasix due to swelling in his legshas f/u with Dr. Mcnulty in 1 moroutine labsf/u in 3 mo 10/24/22:fis xiao R forearm, placed 09/20/22not on dialysis yethas f/u with Dr. Mcnulty in 1 moPEx- palpable thrill to R forearmf/u in 2 mo for routine blood workdue for pneumonia vaccine 08/15/22:S aw nephro 08/02/22:h old KERI/ARB given severity of CKD and K, low protein dietdiscus sed low protein/lo w potassium dietrefer to Vascular surgery for vein mapping, pt wants to do peritoneal dialysisha s appt on 09/02/22 at [place] 07/01/22:co mpleted kidney smart classfollo wing with nephrology Cr 4.44, eGFR 14- unchanged since 05/2022 labs 05/26/22:sp marzena with Kaya Shahid, pt's sister at 11:15 AMPt's Cr 5.5 and eGFR is 12, she is waiting for call back from Dr. Elaine formed pt he will need to go to EDlabs 05/17/22: ordered by Dr Davidson (unknown who provider is in relation to patient)BU N 48, Cr 4.44, eGFR 14, K 5.6 slightly elevatedsi ster reports Dr ordered more blood work, pending blood work pt may need to go to ED or have closer f/u with Dr. Treviño referred dialysis questions and plan to Dr. Mcnulty 05/25/22: has f/u with Dr. Mayberry tomorrow and appt 06/06/[address] Mcnulty 05/10/22: R nephrectom y on 05/10/[address] Mayberry (Urology [facility])follow ing with Dr. Mcnulty (Nephrolog y)spoke with Dr. Mcnulty, will resume all meds and hold lasix Cr 2.79follow ing with Dr. Mcnulty (Nephrolog y) and Dr. Collins (Urology)M RI showed 6.1 cm mass to R kidney consistent with renal cell carcinomap t states that he is waiting to see if kidney function improves, if not he will have to go on dialysis or have R kidney removedreq uested records Essential hypertension [id number] I10 12/19/22:BP 138/70 10/24/22:BP 128/72refi ll meds 08/15/22:B P 138/84took meds 1 hour before apptadvise d to check BP at homef/u in 3 days with BP log 07/01/22:BP today 140/80BP at home 150s-170s/ 90snephro stopped lisinopril 20increase hydralazin e from 10 mg TID to 25 mg BIDadvised to check BP at home, goal BP <130/80, f/u with BP log in 1 wk 05/25/22:ca n take ASA for primary prevention due to tobacco use 04/26/22: BP 166/86did not take BP medication s yethas been out of meds x5 dayswill refill, hold lasix 02/21/22: BP controlled todayno med changesreq uested records from nephrology and urology 12/30/21: Cr 2.79- advised pt of lab results, CKD stage 4 and rec'd pt go to hospital. he was amendable to go to [place] 12/28/21:casa beckham labspt taking lasix, unsure of why he is takingwill check kidney function today to see if can dc Tobacco de pendence syndrome 11422398 F17.200 12/19/22:has n't tried yet wellbutrin encouraged to trial for smoking cessation 10/24/22:unk nown if can try wellbutrin due to CKDover 1/2 ppd 08/15/22:1 /2 ppd currentlyw as smoking 1.5 ppd to 2 ppd before kidney surgerytri al nicotine patches Alcohol dependence 80328 003 F10.20 12/19/22:unc hangedrefu sed outpatient tx at this time 10/24/22:sti ll drinking 4 ounces/day of cheap vodkarefus ed outpatient treatment at this time 08/15/22:4 ounces/day trying to cut backrefuse d outpatient treatment at this time 07/01/22:dr joyce 1/2 pint/daypt refused outpatient treatment 05/25/22:dr joyce 1 pint of cheap vodka per day x3 yrsstopped 2 wks ago due to surgerysis ter is requesting medication to help with withdrawal sxdiscusse d that pt is not showing withdrawal symptoms, out of withdrawal window at this timeoffere d outpatient treatment, pt refused at this time Screening for malignant neoplasm of colon 903872001 Z12.11 12/19/22:com pleted 11/14/22, repeat in 3 yrs 10/24/22:ref er for colonoscop y 02/21/22: pt reports constipati on has improved, increasing water intake and high fiber foodsprint ed off referral and encouraged pt to call to schedule appt 12/28/21:co nstipation occurs every 2-3 daysno blood in stoolshas not had colon cancer screeningd iscussed cologuard vs colonoscop ysent for GI consult with colonoscop lizbeth d increasing fluid intake, high fiber foods Fatigue 85821128 R53.83 x1 motakes daily Vit K3jizewpe 6 days/weeks tarted lasix 2 wks ago and waking up 3x/nightSO B worse with laying flat and with exertionde scribes as tired gai daysi 8 lbs in 1 moPEx- nlcheck vitamins and probnpUS echo Depression screening 171 009577 Z13.31 PHQ 0 [id number] [facility] [address] [place] [address] 06/13/2023 09:57:00 06/15/2023 12:25:24 Chronic kidney disease stage 5 [id number] N18.5 06/13/23:st ill holding off on dialysisha s f/u with Dr. Mcnulty in 3 monthslabs 05/30/23: Cr 6.7, eGFR 8 12/19/22:rob d trying to hold off on dialysis as long as possiblest arted back on lasix due to swelling in his legshas f/u [facility] 10/24/22:fis xiao R forearm, placed 09/20/22not on dialysis yethas f/u with Dr. Mcnulty in 1 moPEx- palpable thrill to R forearmf/u in 2 mo for routine blood workdue for pneumonia vaccine 08/15/22:S aw nephro 08/02/22:h old KERI/ARB given severity of CKD and K, low protein dietdiscus sed low protein/lo w potassium dietrefer to Vascular surgery for vein mapping, pt wants to do peritoneal dialysisha s appt on 09/02/22 at [place] 07/01/22:co mpleted kidney smart classfollo wing with nephrology Cr 4.44, eGFR 14- unchanged since 05/2022 labs 05/26/22:sp marzena with Kaya Shahid, pt's sister at 11:15 AMPt's Cr 5.5 and eGFR is 12, she is waiting for call back from Dr. Elaine formed pt he will need to go to EDlabs 05/17/22: ordered by Dr Davidson (unknown who provider is in relation to patient)BU N 48, Cr 4.44, eGFR 14, K 5.6 slightly elevatedsi ster reports Dr ordered more blood work, pending blood work pt may need to go to ED or have closer f/u with Dr. Treviño referred dialysis questions and plan to Dr. Mcnulty 05/25/22: has f/u with Dr. Mayberry tomorrow and appt 06/06/[address] Mcnulty 05/10/22: R nephrectom y on 05/10/[address] Mayberry (Urology [facility])follow ing with Dr. Mcnulty (Nephrolog y)spoke with Dr. Mcnulty, will resume all meds and hold lasix Cr 2.79follow ing with Dr. Mcnulty (Nephrolog y) and Dr. Collins (Urology)M RI showed 6.1 cm mass to R kidney consistent with renal cell carcinomap t states that he is waiting to see if kidney function improves, if not he will have to go on dialysis or have R kidney removedreq uested records Tobacco de pendence syndrome 11853022 F17.200 06/13/23:1 ppdwellbut rin caused testicles to swellpatch es make him itchnot ready to quit 12/19/22:has n't tried yet wellbutrin encouraged to trial for smoking cessation 10/24/22:unk nown if can try wellbutrin due to CKDover 1/2 ppd 08/15/22:1 /2 ppd currentlyw as smoking 1.5 ppd to 2 ppd before kidney surgerytri al nicotine patches Alcohol dependence 96331 003 F10.20 06/13/23:dr muse 2 ounces of vodka/pert rying to cut back 12/19/22:unc hangedrefu sed outpatient tx at this time 10/24/22:sti ll drinking 4 ounces/day of cheap vodkarefus ed outpatient treatment at this time 08/15/22:4 ounces/day trying to cut backrefuse d outpatient treatment at this time 07/01/22:dr joyce 1/2 pint/daypt refused outpatient treatment 05/25/22:dr joyce 1 pint of cheap vodka per day x3 yrsstopped 2 wks ago due to surgerysis ter is requesting medication to help with withdrawal sxdiscusse d that pt is not showing withdrawal symptoms, out of withdrawal window at this timeoffere d outpatient treatment, pt refused at this time Essential hypertension 43173526 I10 06/13/23:BP 150/70took meds 1 hr agoadvised to check BP this afternoon, if still elevated, call nephrology 12/19/22:BP 138/70 10/24/22:BP 128/72refi ll meds 08/15/22:B P 138/84took meds 1 hour before apptadvise d to check BP at homef/u in 3 days with BP log 07/01/22:BP today 140/80BP at home 150s-170s/ 90snephro stopped lisinopril 20increase hydralazin e from 10 mg TID to 25 mg BIDadvised to check BP at home, goal BP <130/80, f/u with BP log in 1 wk 05/25/22:ca n take ASA for primary prevention due to tobacco use 04/26/22: BP 166/86did not take BP medication s yethas been out of meds x5 dayswill refill, hold lasix 02/21/22: BP controlled todayno med changesreq uested records from nephrology and urology 12/30/21: Cr 2.79- advised pt of lab results, CKD stage 4 and rec'd pt go to hospital. he was amendable to go to [place] 12/28/21:casa beckham labspt taking lasix, unsure of why he is takingwill check kidney function today to see if can dc Pelvic lymphadenopathy [id number] R59.0 found on PET scan 05/23/23:non -specific mild L pelvic LAD, prostatome daija with small focus of asymmetric increased uptake at posterior left prostate, correlate with PSA level, cholelithi asis, unchanged 5.1 cm infrarenal AAAfollowi ng with Oncologyha s another scan tomorrow Diarrhea 38570525 R19.7 x1 trevon the morning and at nightinter juan david botello concerning sxno new foods or medsPEx- nl- Increase your fluid intake to replace losses.- BRAT diet- trial anti-diarr heal and foods that bulk stools- Avoid milk, greasy foods and anything that doesn t agree with youif symptoms do not improve in 2 wks, make f/u appt, will refer to GI Depression screening 171 786004 Z13.31 PHQ 0 [id number] [facility] [address] [place] [address] 08/04/2023 10:47:09 08/14/2023 11:09:17 Chronic kidney disease stage 5 [id number] N18.5 08/04/23:s till holding off on dialysisha s f/u with Dr. Mcnulty in 2 monthslabs 05/30/23: Cr 6.7, eGFR 8 06/13/23:st ill holding off on dialysisha s f/u with Dr. Mcnulty in 3 monthslabs 05/30/23: Cr 6.7, eGFR 8 12/19/22:rob d trying to hold off on dialysis as long as possiblest arted back on lasix due to swelling in his legshas f/u with [facility]ulty [facility] 10/24/22:fis xiao R forearm, placed 09/20/22not on dialysis yethas f/u with Dr. Mcnulty in 1 moPEx- palpable thrill to R forearmf/u in 2 mo for routine blood workdue for pneumonia vaccine 08/15/22:S aw nephro 08/02/22:h old KERI/ARB given severity of CKD and K, low protein dietdiscus sed low protein/lo w potassium dietrefer to Vascular surgery for vein mapping, pt wants to do peritoneal dialysisha s appt on 09/02/22 at [place] 07/01/22:co mpleted kidney smart classfollo wing with nephrology Cr 4.44, eGFR 14- unchanged since 05/2022 labs 05/26/22:sp marzena with Kaya Shahid, pt's sister at 11:15 AMPt's Cr 5.5 and eGFR is 12, she is waiting for call back from Dr. Elaine formed pt he will need to go to EDlabs 05/17/22: ordered by Dr Davidson (unknown who provider is in relation to patient)BU N 48, Cr 4.44, eGFR 14, K 5.6 slightly elevatedsi ster reports Dr ordered more blood work, pending blood work pt may need to go to ED or have closer f/u with Dr. Treviño referred dialysis questions and plan to Dr. Mcnulty 05/25/22: has f/u with Dr. Mayberry tomorrow and appt 06/06/[address] Mcnulty 05/10/22: R nephrectom y on 05/10/[address] Mayberry (Urology [facility])follow ing with Dr. Mcnulty (Nephrolog y)spoke with Dr. Mcnulty, will resume all meds and hold lasix Cr 2.79follow ing with Dr. Mcnulty (Nephrolog y) and Dr. Collins (Urology)M RI showed 6.1 cm mass to R kidney consistent with renal cell carcinomap t states that he is waiting to see if kidney function improves, if not he will have to go on dialysis or have R kidney removedreq uested records Essential hypertension 24098341 I10 08/04/23:B P 179/73, 140/70take s meds at 9 AMadvised to check BP at home, goal BP <130/80, f/u with BP log in 1 wk 06/13/23:BP 150/70took meds 1 hr agoadvised to check BP this afternoon, if still elevated, call nephrology 12/19/22:BP 138/70 10/24/22:BP 128/72refi ll meds 08/15/22:B P 138/84took meds 1 hour before apptadvise d to check BP at homef/u in 3 days with BP log 07/01/22:BP today 140/80BP at home 150s-170s/ 90snephro stopped lisinopril 20increase hydralazin e from 10 mg TID to 25 mg BIDadvised to check BP at home, goal BP <130/80, f/u with BP log in 1 wk 05/25/22:ca n take ASA for primary prevention due to tobacco use 04/26/22: BP 166/86did not take BP medication s yethas been out of meds x5 dayswill refill, hold lasix 02/21/22: BP controlled todayno med changesreq uested records from nephrology and urology 12/30/21: Cr 2.79- advised pt of lab results, CKD stage 4 and rec'd pt go to hospital. he was amendable to go to [facility] 12/28/21:ro mitchne labspt taking lasix, unsure of why he is takingwill check kidney function today to see if can dc Depression screening 171 [id number] Z13.31 PHQ 0 Pelvic lymphadenopathy [id number] R59.0 08/04/23:p er patient- biopsy was negativere peat CT scan Oct 2023 and f/u with oncology in Nov 2023 06/13/23:fo und on PET scan 05/23/23:non -specific mild L pelvic LAD, prostatome daija with small focus of asymmetric increased uptake at posterior left prostate, correlate with PSA level, cholelithi asis, unchanged 5.1 cm infrarenal AAAfollowi ng with Oncologyha s another scan tomorrow Alcohol dependence 54745 003 F10.20 08/04/23:w ants to quitdoes not want to be referred to medical withdrawal program 06/13/23:dr muse 2 ounces of vodka/pert rying to cut back 12/19/22:unc hangedrefu sed outpatient tx at this time 10/24/22:sti ll drinking 4 ounces/day of cheap vodkarefus ed outpatient treatment at this time 08/15/22:4 ounces/day trying to cut backrefuse d outpatient treatment at this time 07/01/22:dr joyce 1/2 pint/daypt refused outpatient treatment 05/25/22:dr joyce 1 pint of cheap vodka per day x3 yrsstopped [address] is requesting medication to help with withdrawal sxdiscusse d that pt is not showing withdrawal symptoms, out of withdrawal window at this timeoffere d outpatient treatment, pt refused at this time Tobacco de pendence syndrome [id number] F17.200 08/04/23:1 /2 ppd to 1 ppd since age 13discusse d chantix, not ready to quitPET scan 05/2023: no pulmonary nodules, pneumonia, pulmonary edema or infiltrate scan order LDCT scan 05/202406/13/23:1 ppdwellbut rin caused testicles to swellpatch es make him itchnot ready to quit 12/19/22:has n't tried yet wellbutrin encouraged to trial for smoking cessation 10/24/22:unk nown if can try wellbutrin due to CKDover 1/2 ppd 08/15/22:1 /2 ppd currentlyw as smoking 1.5 ppd to 2 ppd before kidney surgerytri al nicotine patches Administra tion of influenza vaccine [id number] Z23 [id number] [facility] [address] [place] [address] 12/24/2024 16:36:09 12/24/2024 17:18:59 End-stage renal disease [id number] N18.6 refill [facility] [place], Brittany, Sat Smoker [id number] F17.200 still smoking 1/2 ppd Essential hypertension 74193614 I10 BP 125/78refi meds Hyperlipidemia 52941512 E78.5 refill Chronic ob structive pulmonary disease 91946904 J44.9 refill Hospital i npatient stay within past 30 days [id number] 106 Z76.89 Admitted to [facility] in [place] 10/24/24 to 11/26/24 To micah Crowder Luther is a 64 y.o. male with a pertinent history significan t for ESRD on HD TTS, AAA, DVT, persistent A-fib, HTN, adrenal mass/pulmo nary nodules, renal cell carcinoma, peripheral vascular disease, who presented with initially to outside hospital ([facility]) for evaluation of necrotic left foot. Due to gangrene of the left foot patient was transferre [facility] .Patient was treated with IV antibiotic s Vanco and cefepime.C ardiology was consulted for preop risk assessment . Patient underwent Lexiscan stress test which was negative.V ascular surgery consulted patient underwent common, profunda, superficia l femoral artery endarterec kvng with pantaloon patch angioplast y. 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 He will need follow-up with his oncologist outpatient .Patient will follow-up with podiatry and vascular surgery in clinic on discharge. Renal cell carcinoma [id number] C64.9 12/25/24: OV with Dr. Carrasco (Oncology) Patient came into the office after discharge from the hospital. He was discharged on November 26 after being treated for gangrene of the left foot with IV antibiotic s. Patient underwent right great toe amputation on November 23. He had CT scan done on that showed worsening of lung nodules and left adrenal mass. PET scan was performed on November 05 that showed pulmonary nodules, mediastina l lymphadeno lyndsey and left adrenal mass worsening consistent with metastatic disease. He is complainin g of tiredness and fatigue. No other new complaints .we will proceed with biopsy of the left adrenal gland. Phone visit in 2 weeks. 05/25/22: pt reports surgery went wellpathol ogy study showed 7.5 cm renal cell carcinoma, R nephrectom y, all margins negative for invasive carcinomah as f/u with surgeon tomorrow 04/26/22:MR I showed 6.1 cm mass to R kidney consistent with renal cell carcinomaR nephrectom y on 05/10/22 Depression screening 171 [id number] Z13.31 PHQ 0 Health Concerns Section Related Observation LastModified by Organization Detai ls LastModified Time None Recorded Concern Status LastModified by Organization Details LastModified Time None Recorded Advance Directives Directive None Recorded Payers Encounter Date Sequence Insurance Name Policy Number Policy Simons Covered Member ID Simons Member ID Guarantor Name 10/24/2022 2 *SELF PAY* To micah Sloan 10/24/2022 1 [employer] (PPO) [id number] Kar Sloan [id number] Kar Sloan 12/19/2022 1 [facility] - CIG (PPO) Kar Sloan [id number] Kar Sloan 06/13/2023 1 [place] [id number] Kar Sloan [id number] Kar Sloan 08/04/2023 1 [place] [id number] Kar Sloan [id number] Kar Thackerner 12/24/2024 1 [place] [id number] Kar Sloan [id number] Kar Sloan Notes Date Note Type Note Provider Name and Address Organization Details Recorded Time 10/24/2022 text/html Pt presents for f/u. Reports he had fistula placed to R arm on 09/20/22. He has f/u with nephrology about dialysis in 1 mo. [facility] Attn: Accounting[address] [facility], [place], [address], [facility] [place] 10/24/2022 13:56:30 12/19/2022 text/html Pt presents for 2 mo f/u. States that nephrology still wants to hold off on dialysis, has upcoming appt this month.C/o fatigue for the past month. Worse in the morning and with exertion. C/o mild SOB and pressure with laying flat on his back. Reports that he has been working 6 days/wk at his job. He recently was started back on lasix and is waking up 3x/night to urinate. Denies chest pain or SOB at rest. [facility] Attn: Accounting[address] [facility], [place], [address], [facility] [place] 12/19/2022 21:09:16 06/13/2023 text/html Pt presents for 6 month f/u. States nephrology is still holding off on patient starting dialysis. He is following with Dr. Carrasco (Oncology) due to enlarged lymph nodes on PET scan. Pt has another scan tomorrow.C/o intermittent diarrhea for 1 month. Occurs in the morning and at night. Describes as loose without blood. No fevers, chills, nausea, vomiting, abdominal pain, or constipation. Denies any new foods or medications. Eats sandwiches or [employer] for lunch and dinner, drinks water and soda throughout the day. Has not tried any OTC meds for symptoms. [facility] Attn: Accounting,[address], [place], [address], [place] [facility] 06/13/2023 11:41:27 08/04/2023 text/html Pt presents for 2 mo f/u. States that his lymph node biopsy came back negative. He has repeat CT scan and f/u with oncology in 3 months. Pt reports that kidney Dr is still holding off on dialysis as long as I'm feeling well and has f/u with Dr. Mcnulty in 2 months. [facility] Attn: Accounting,[address], [place], [address], [place] [facility] 08/04/2023 12:39:28 12/24/2024 text/html Pt presents for FMLA paperwork. Last OV with PCP 07/2023. 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 He was admitted to [facility] 11/13/24, transferred to [facility] and discharged 11/26/24. He is following closely with Dr. Luciano (Podiatry), Dr. Carrasco (Oncology), Dr. Dykes (Vascular), and Dr. Mcnulty (Nephrology). 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 Pt completed PT and has home health to change dressings on his feet. Requesting FMLA for 12 wks. [facility] Attn: Accounting,[address], [place], [address], [place] [facility] 12/30/2024 09:20:46
--- OUTSIDE RECORDS SUMMARY | 2025-01-06 13:50 | XMS_ITS | Clinical Summary ---
Author Organization [facility] Rasheed Rivas Address [address] [place] [address] Care Team Providers Care Geography Head Name Role Phone Unavailable Primary Care Provider Unavailabl e Allergies No known active allergies Medications cholecalciferol, Vitamin D3, 125 mcg (5,000 unit) Capsule Take 1 Capsule by mouth daily. Active furosemide (LASIX) 40 mg tablet Take 40 mg by mouth daily. 2 Active metoprolol succinate (TOPROL XL) 50 mg Extended Release 24 hour tablet Take 100 mg by mouth daily. Active sodium bicarbonate 650 mg tablet Take 650 mg by mouth 2 times daily. 2 Active sevelamer HCL (RENAGEL) 800 mg tablet Take 800 mg by mouth. 4 Active apixaban (ELIQUIS) 5 mg tablet Take 5 mg by mouth 2 times daily. 4 03/19/20 25 Active amLODIPine (NORVASC) 10 mg tablet Take 1 Tablet (10 mg) by mouth daily. 1 Tablet 5 Active aspirin (ANGELICA CHEWABLE) 81 mg Tablet, Chewable Take 1 Tablet (81 mg) by mouth daily with breakfast. 5 Active acetaminophen (TYLENOL) 325 mg tablet Take 2 Tablets (650 mg) by mouth every 6 hours. 5 Active hydrALAZINE (APRESOLINE) 50 mg tablet Take 1 Tablet (50 mg) by mouth 2 times daily. 60 Tablet 1 11/26/2024 5:26 PM PORTER MARINA Active atorvastatin (LIPITOR) 40 mg tablet Take 1 Tablet (40 mg) by mouth daily at bedtime. 30 Tablet 2 11/26/2024 5:26 PM PORTER MARINA Active sennosides-docus ate sodium (SENNA-S) 8.6-50 mg tablet Take 1 Tablet by mouth 2 times daily. Active fluticasone furoate-vilanter oL (BREO ELLIPTA) 200-25 mcg/dose Disk with Device Starting 11/26/24, Take 1 Puff by inhalation daily. 60 Each 2 11/26/2024 5:26 PM PORTER MARINA Active amoxicillin-clav ulanate (AUGMENTIN) 875-125 mg tablet Take 1 Tablet by mouth every 12 hours for 10 days. 20 Tablet 5 12/29/19 Active Problems Problem Noted Date Diagnosed Date [...] Date Type Department Care Team Description 01/03/2025 Abstract [facility] Heart and Vascular Surgery [address] [facility] [phone] [facility] [address] [place] [address] Shanika Sebastian FNP 01/02/2025 3:30 PM CDT Office Visit [facility] Heart and Vascular Surgery [address] [facility] [phone] [facility] [address] [place] [address] Romulo ShanikaJOHN Bustillo PVD (peripheral vascular disease) (Primary Dx) 01/02/2025 1:31 PM CDT - 01/02/2025 11:59 PM CDT Hospital Encounter [facility] Heart and Vascular Testing [facility] [address] [facility] [address] [place] [address] Patricia Quezada NP Arrived Discharge Disposition: Home or Self Care 01/01/2025 11:00 AM CDT - 01/01/2025 11:59 PM CDT Hospital Encounter [facility] Hyperbaric and Wound Care [facility] [address] [place] [address] Jesus Luciano, DPM Discharge Disposition: Home or Self Care 01/01/2025 External Device Data STL ABSTRACTION Provider, Abstract 12/21/2024 External Device Data STL ABSTRACTION Provider, Abstract 12/20/2024 External Device Data STL ABSTRACTION Provider, Abstract 12/18/2024 10:37 AM PORTER MARINA - 12/18/2024 11:59 PM PORTER MARINA Hospital Encounter [facility] Hyperbaric and Wound Care [facility] [address] [place] [address] Jesus Luciano, DPM Discharge Disposition: Home or Self Care 12/18/2024 External Device Data STL ABSTRACTION Provider, Abstract 12/17/2024 External Device Data STL ABSTRACTION Provider, Abstract 12/16/2024 9:15 AM PORTER MARINA Office Visit [facility] Oncology and Hematology - [address] [place] [address] Aydin Carrasco MD Renal cell carcinoma of right kidney (CMS/HCC) (Primary Dx) 12/11/2024 Abstract [facility] Oncology and Hematology [address] [place] [address] Aydin Carrasco MD 12/11/2024 Orders Only [facility] Oncology and Hematology [address] [place] [address] Aydin Carrasco MD 12/06/2024 Telephone [facility] Heart and Vascular Surgery [address] [facility] [phone] [address] Franca Dykes MD Question 12/03/2024 External Device Data STL ABSTRACTION Provider, Abstract 11/28/2024 Abstract [facility] Heart and Vascular Surgery [address] [place] [address] [facility] [place] [address] [address] Franca Dykes MD 11/28/2024 Telephone [facility] Heart and Vascular Surgery [address] [facility] [address] [address] Franca Dykes MD short term disability forms 11/27/2024 Telephone [facility] Heart and Vascular Surgery [address] [facility] [address] [address] Patricia Quezada, WILLIAM Needs Appointment 11/27/2024 Abstract [facility] Heart and Vascular Surgery [address] [place] [address] [address] Franca Dykes MD 11/23/2024 11:37 AM PORTER MARINA Anesthesia Event [facility] Operating Room [address] [place] [address] Reinier Dale MD Tao, Yongping, MD 11/23/2024 8:42 AM PORTER MARINA - 11/23/2024 9:54 AM PORTER MARINA Surgery [facility] Operating Room [address] [place] [address] Jesus Luciano DPM RIGHT GREAT TOE AMPUTATION 11/23/2024 Travel 11/20/2024 7:30 AM PORTER MARINA - 11/20/2024 5:21 PM PORTER MARINA Surgery [facility] Vascular Operating Room [address] [place] [address] Franca Dykes MD COMMON, SUPERFICIAL, AND PROFUNDA RIGHT FEMORAL ENDARTERECTOMY, RIGHT LOWER EXTREMITY ANGIOGRAM, IVUS AND SHOCKWAVE TO RIGHT SFA AND POPLITEAL, AND DRUG COATED BALLOON ANGIOPLASTY TO RIGHT SFA AND POPLITEAL 11/20/2024 7:30 AM PORTER MARINA Anesthesia Event [facility] Vascular Operating Room [address] [place] [address] Kianna Lu MD Grahek-Lindsey, Lisa M PAAlexanderC 11/19/2024 External Device Data STL ABSTRACTION Provider, Abstract 11/19/2024 External Device Data STL ABSTRACTION Provider, Abstract 11/19/2024 External Device Data STL ABSTRACTION Provider, Abstract 11/13/2024 6:57 PM PORTER MARINA - 11/26/2024 6:16 PM PORTER MARINA Hospital Encounter [facility] General Surgery [address] [place] [address] Chong Garcia MD Idemudia, Osarenren, MD Bagam, Vaghdevi, MD Miller, Brian P, MD Suarez Solar, Pedro, MD Necrotic toes ([facility]) Discharge Disposition: Home or Self Care 11/13/2024 Travel 11/07/2024 External Device Data STL ABSTRACTION Provider, Abstract 11/05/2024 Orders Only [facility] Oncology and Hematology - [address] [place] [address] Aydin Carrasco MD 10/25/2024 Telephone [facility] Oncology and Hematology - [address] [place] [address] Aydin Carrasco MD PET SCAN SCHEDULED 10/22/2024 [...] who hurts you emotionally and/or physically? No 01/01/2025 Food Insecurity Answer Date Recorded Social/Environmental Concerns [...] Sign Reading Time Taken Comments Blood Pressure 133/87 01/02/2025 3:08 PM CDT Pulse 80 01/02/2025 3:08 PM CDT Temperature 36.3 C (97.3 F) 01/02/2025 3:08 PM CDT Respiratory Rate 15 12/16/2024 8:50 AM PORTER MARINA Oxygen Saturation 99% 01/02/2025 3:08 PM CDT Inhaled Oxygen Concentration - - Weight 92.1 kg (203 lb) 01/02/2025 3:08 PM CDT Height 182.9 cm (6') 01/02/2025 3:08 PM CDT Body Mass Index 27.53 01/02/2025 3:08 PM CDT Plan of Treatment Upcoming Encounters Date Type Department Care Team (Late st Contact Info) Description 01/20/2025 4:00 PM CDT Telephone Check Up [facility] Oncology and Hematology - [address] [facility] [address] [place] [address] Aydin Carrasco MD [address] [facility] [address] [place] [phone] 01/22/2025 10:00 AM CDT Appointment [facility] Hyperbaric and Wound Care [place] [address] [place] [address] Jesus Luciano, DPM [address] [place] [address] 04/14/2025 10:15 AM CDT Appointment [facility] [address] [facility] [address] [place] [address] Shanika Sebastian FNP [address] [facility] [address] [place] [address] 04/14/2025 11:30 AM CDT Office Visit [facility] Heart and Vascular Surgery [address] [facility] [phone] [facility] [address] [place] [address] [place] [address] [facility] 101 [place] [address] Health Maintenance Due Date Last Done Comments ZOSTER VACCINE (1 of 2) 1979 COLORECTAL SCREENING 2005 Colorectal Cancer Screening 2005 FIT-DNA Q 3 years 2005 FIT/FOBT Q 1 year 2005 Flex Sig/CT Colonography Q 5 years 2005 RSV VACCINE (60+ or ) (1 - Risk 60-74 years 1-dose series) 2020 INFLUENZA VACCINE (#1) 2024 , 10/24/2022, 08/10/2021, Additional history exists COVID-19 Vaccine (2023-2 5 season) 2024 04/01/2022, 08/26/2021, 12/16/2020, Additional history exists Pre-Diabetes and Diabetes Screening 11/14/2027 11/14/2024 DTAP/TDAP/TD VACCINES (3 - T d or Tdap) 07/15/2032 07/15/2022, 07/05/2022 Medical Devices Implanted Type Area It Programmer Analyst Device Identifier Shelf Expiration Date Model / Serial / Lot Patch Vascu-Guard 1.0x10cm [id number] - [id number] Implanted:Qty: 1 on 11/20/2024 by Franca Dykes MD at [facility] Right: Groin [employer] 09/03/2025 [id number] / / [id number] Patch Vascu-Guard 0.8x8cm Cardio Vg-0108 - [id number] Implanted:Qty: 1 on 11/20/2024 by Franca Dykes MD at [facility] Right: Groin [employer] 05/20/2026 [id number] / / [id number] Hemostatic Surgifoam Sz12-7 1971 - [id number] Implanted:Qty: 1 on 11/20/2024 by Franca Dykes MD at [facility] Hemostatic Right: Groin [employer] 03/11/20281971 / / [id number] Hemostatic Surgiflo 8ml W/ Thrombin 299 - [id number] Implanted:Qty: 1 on 11/20/2024 by Franca Dykes MD at [facility] Hemostatic [employer] 10/15/2025 299 / / [id number] Procedures Procedure Name Priority Date/Time Associated Diagnosis Comments US ANKLE PRESSURE INDEX Routine 01/03/20 3:13 PM CDT PVD (peripheral vascular disease) ANAEROBIC/AEROBIC CULTURE W GRAM STAIN Routine 12/18/2024 11:34 AM PORTER MARINA 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, unspecified laterality (CMS/HCC) BASIC METABOLIC PANEL Routine 12/11/2024 4:32 PM PORTER MARINA CBC WITH AUTODIFFERENTIAL Routine 12/11/2024 11:49 AM PORTER MARINA VANCOMYCIN LEVEL RANDOM Routine 11/26/19 4:39 AM PORTER MARINA RENAL FUNCTION PANEL Routine 11/26/2024 4:39 AM PORTER MARINA PTT Timed Study 11/25/2024 7:42 PM PORTER MARINA TELEMETRY REPORT 11/25/2024 3:26 PM PORTER MARINA TELEMETRY REPORT 11/25/2024 3:06 PM PORTER MARINA TELEMETRY REPORT 11/25/2024 2:57 PM PORTER MARINA TELEMETRY REPORT 11/25/2024 2:45 PM PORTER MARINA PTT Routine 11/25/2024 12:14 PM PORTER MARINA TELEMETRY REPORT 11/25/2024 10:16 AM PORTER MARINA TELEMETRY REPORT 11/25/2024 9:59 AM PORTER MARINA TELEMETRY REPORT 11/25/2024 8:03 AM PORTER MARINA PTT Routine 11/25/2024 3:11 AM PORTER MARINA RENAL FUNCTION PANEL Routine 11/25/2024 3:11 AM PORTER MARINA PTT Timed Study 11/24/2024 11:08 PM PORTER MARINA PTT Timed Study 11/24/2024 3:52 PM PORTER MARINA PTT Routine 11/24/2024 7:29 AM PORTER MARINA CBC WITHOUT DIFFERENTIAL Routine 11/24/2024 2:56 AM PORTER MARINA RENAL FUNCTION PANEL Routine 11/24/2024 2:56 AM PORTER MARINA PTT Routine 11/23/2024 7:41 PM PORTER MARINA VANCOMYCIN LEVEL RANDOM Timed Study 11/23/19 2:30 PM PORTER MARINA PT EVAL AND TREAT Routine 11/23/2024 1:3 0 PM PORTER MARINA XR FOOT 3+ VW RIGHT Routine 11/23/2024 1 :04 PM PORTER MARINA PATHOLOGY Pathology 11/23/2024 11:55 AM PORTER MARINA ANAEROBIC/AEROBIC CULTURE W GRAM STAIN Routine 11/23/2024 11:55 AM PORTER MARINA TOE(S) AMPUTATION 11/23/2024 8:4 2 AM PORTER MARINA UNKNOWN Special Needs SAW. DR ADAN T/F HIS OTHER CASE. TRANSFUSE PACKED RED BLOOD CELLS Routine 11/23/2024 8:36 AM PORTER MARINA PREPARE RED BLOOD CELLS Routine 11/23/19 6:58 AM PORTER MARINA TYPE AND SCREEN Routine 11/23/2024 3:44 AM PORTER MARINA CBC WITH DIFFERENTIAL Routine 11/23/2024 3:44 AM PORTER MARINA PTT Routine 11/23/2024 3:44 AM PORTER MARINA RENAL FUNCTION PANEL Routine 11/23/2024 3:44 AM PORTER MARINA PTT Timed Study 11/22/2024 10:33 PM PORTER MARINA POTASSIUM LEVEL Stat 11/22/2024 4:05 PM PORTER MARINA PTT Timed Study 11/22/2024 4:05 PM PORTER MARINA HEMODIALYSIS Routine 11/22/2024 12:01 PM PORTER MARINA VANCOMYCIN LEVEL RANDOM Stat 11/22/19 6:10 AM PORTER MARINA CBC WITH DIFFERENTIAL Routine 11/22/2024 6:10 AM PORTER MARINA RENAL FUNCTION PANEL Routine 11/22/2024 6:10 AM PORTER MARINA PTT Timed Study 11/22/2024 6:10 AM PORTER MARINA PTT Timed Study 11/21/2024 8:09 PM PORTER MARINA PTT Timed Study 11/21/2024 9:31 AM PORTER MARINA BASIC METABOLIC PANEL Stat 11/21/2024 6:01 AM PORTER MARINA MAGNESIUM LEVEL Stat 11/21/2024 6:01 AM PORTER MARINA POC GLUCOSE Routine 11/21/2024 5:39 AM PORTER MARINA EKG 12-LEAD Stat 11/21/2024 5:29 AM PORTER MARINA CBC WITH DIFFERENTIAL Routine 11/21/2024 2:25 AM PORTER MARINA PTT Timed Study 11/21/2024 2:24 AM PORTER MARINA VANCOMYCIN LEVEL RANDOM Timed Study 11/21/19 2:24 AM PORTER MARINA RENAL FUNCTION PANEL Routine 11/21/2024 2:24 AM PORTER MARINA VERIFICATION BLOOD GROUP Stat 11/20/2024 8:52 PM PORTER MARINA HEMOGLOBIN AND HEMATOCRIT Stat 11/20/2024 3:13 PM PORTER MARINA POC ACTIVATED CLOTTING TIME Routine 11/20/2024 1:23 PM PORTER MARINA XR OR Routine 11/20/2024 1:12 PM PORTER MARINA TRANSFUSE PACKED RED BLOOD CELLS Stat 11/20/2024 12:57 PM PORTER MARINA POC ACTIVATED CLOTTING TIME Routine 11/20/2024 12:52 PM PORTER MARINA PREPARE RED BLOOD CELLS Stat 11/20/19 12:18 PM PORTER MARINA PREPARE RED BLOOD CELLS Routine 11/20/19 12:18 PM PORTER MARINA POC ACTIVATED CLOTTING TIME Routine 11/20/2024 12:18 PM PORTER MARINA POC LACTIC ACID Routine 11/20/2024 12:10 PM PORTER MARINA OXIMETRY Routine 11/20/2024 12:10 PM PORTER MARINA METHEMOGLOBIN QUANTITATIVE Routine 11/20/2024 12:10 PM PORTER MARINA CARBOXYHEMOGLOBIN Routine 11/20/2024 12:10 PM PORTER MARINA BLOOD GAS,(INCL. H+H, LYTES, GLUC) Routine 11/20/2024 12:10 PM PORTER MARINA POC ACTIVATED CLOTTING TIME Routine 11/20/2024 11:40 AM PORTER MARINA POC ACTIVATED CLOTTING TIME Routine 11/20/2024 11:33 AM PORTER MARINA POC ACTIVATED CLOTTING TIME Routine 11/20/2024 10:57 AM PORTER MARINA POC ACTIVATED CLOTTING TIME Routine 11/20/2024 10:53 AM PORTER MARINA POC ACTIVATED CLOTTING TIME Routine 11/20/2024 10:42 AM PORTER MARINA POC ACTIVATED CLOTTING TIME Routine 11/20/2024 10:10 AM PORTER MARINA POC ACTIVATED CLOTTING TIME Routine 11/20/2024 9:56 AM PORTER MARINA POC ACTIVATED CLOTTING TIME Routine 11/20/2024 9:25 AM PORTER MARINA POC LACTIC ACID Routine 11/20/2024 8:50 AM PORTER MARINA OXIMETRY Routine 11/20/2024 8:50 AM PORTER MARINA METHEMOGLOBIN QUANTITATIVE Routine 11/20/2024 8:50 AM PORTER MARINA CARBOXYHEMOGLOBIN Routine 11/20/2024 8:5 0 AM PORTER MARINA BLOOD GAS,(INCL. H+H, LYTES, GLUC) Routine 11/20/2024 8:50 AM PORTER MARINA LA ANES INSERT CATH, ART, PERCUT, SHORTTERM Routine 11/20/2024 8:36 AM PORTER MARINA PERIPHERAL IV ADULT Routine 11/20/2024 8 :15 AM PORTER MARINA LA ANES VNPNXR 3 YEARS/> PHYS/QHP SKILL Routine 11/20/2024 8:15 AM PORTER MARINA LA ANES INSERT ENDOTRACHEAL AIRWAY Routine 11/20/2024 7:36 AM PORTER MARINA FEMORAL ENDARTERECTOMY 7:26 AM PORTER MARINA PVD Special Needs DR ADAN EV1 RM DR ADAN 7:30 START. TIME OK PER VICTOR HUGO/ CHARGE NURSE. TYPE AND SCREEN Stat 11/20/2024 3:53 AM PORTER MARINA CBC WITH DIFFERENTIAL Stat 11/20/2024 3:52 AM PORTER MARINA RENAL FUNCTION PANEL Stat 11/20/2024 3:52 AM PORTER MARINA PTT Timed Study 11/20/2024 3:52 AM PORTER MARINA TELEMETRY REPORT 11/19/2024 2:46 PM PORTER MARINA TELEMETRY REPORT 11/19/2024 2:30 PM PORTER MARINA CBC WITH DIFFERENTIAL Stat 11/19/2024 2:27 PM PORTER MARINA BASIC METABOLIC PANEL Stat 11/19/2024 2:27 PM PORTER MARINA PTT Stat 11/19/2024 2:27 PM PORTER MARINA TELEMETRY REPORT 11/19/2024 2:01 PM PORTER MARINA TELEMETRY REPORT 11/19/2024 1:33 PM PORTER MARINA TELEMETRY REPORT 11/19/2024 11:40 AM PORTER MARINA TELEMETRY REPORT 11/19/2024 11:31 AM PORTER MARINA TELEMETRY REPORT 11/19/2024 10:22 AM PORTER MARINA TELEMETRY REPORT 11/19/2024 9:57 AM PORTER MARINA TELEMETRY REPORT 11/19/2024 9:20 AM PORTER MARINA PTT Routine 11/19/2024 3:06 AM PORTER MARINA CBC WITH DIFFERENTIAL Routine 11/19/2024 3:06 AM PORTER MARINA RENAL FUNCTION PANEL Routine 11/19/2024 3:06 AM PORTER MARINA PTT Stat 11/18/2024 7:43 PM PORTER MARINA VANCOMYCIN LEVEL RANDOM Timed Study 11/18/19 25 12:03 PM PORTER MARINA RENAL FUNCTION PANEL Routine 11/18/2024 12:03 PM PORTER MARINA PTT Timed Study 11/18/2024 7:48 AM PORTER MARINA EXTRA TUBE (BLUE) Routine 11/18/2024 12:41 AM PORTER MARINA EXTRA TUBE Routine 11/18/2024 12:41 AM PORTER MARINA PTT Timed Study 11/18/2024 12:40 AM PORTER MARINA UNFRACTIONATED HEPARIN ACTIVITY Routine 11/17/2024 5:21 PM PORTER MARINA PTT Routine 11/17/2024 5:21 PM PORTER MARINA EKG 12-LEAD Routine 11/17/2024 12:43 PM PORTER MARINA CBC WITH DIFFERENTIAL Routine 11/17/2024 10:09 AM PORTER MARINA RENAL FUNCTION PANEL Routine 11/17/2024 10:09 AM PORTER MARINA NM MYOCARD PERF IMAG SPECT MULT Routine 11/17/2024 9:21 AM PORTER MARINA NM PHARMACOLOGICAL STRESS TEST Routine 11/17/2024 8:23 AM PORTER MARINA ECHOCARDIOGRAM W/ CONTRAST AGENT Routine 11/16/2024 4:48 PM PORTER MARINA LIPID PANEL Routine 11/16/2024 5:09 AM PORTER MARINA UNFRACTIONATED HEPARIN ACTIVITY Timed Study 11/16/2024 5:09 AM PORTER MARINA VANCOMYCIN LEVEL RANDOM Timed Study 11/16/19 25 5:09 AM PORTER MARINA RENAL FUNCTION PANEL Routine 11/16/2024 5:09 AM PORTER MARINA CTA ABD AORTA BI ILIOFEM W AND/OR WO Routine 11/15/2024 6:53 PM PORTER MARINA CTA CHEST W AND/OR WO CONTRAST Routine 11/15/2024 6:51 PM PORTER MARINA BLOOD CULTURE Routine 11/15/2024 3:23 PM PORTER MARINA BLOOD CULTURE Routine 11/15/2024 3:23 PM PORTER MARINA BLOOD CULTURE Routine 11/15/2024 3:17 PM PORTER MARINA BLOOD CULTURE Routine 11/15/2024 3:17 PM PORTER MARINA UNFRACTIONATED HEPARIN ACTIVITY Stat 11/15/2024 8:48 AM PORTER MARINA HEPATITIS B SURFACE ANTIGEN Routine 11/15/2024 1:48 AM PORTER MARINA UNFRACTIONATED HEPARIN ACTIVITY Stat 11/15/2024 1:48 AM PORTER MARINA VANCOMYCIN LEVEL RANDOM Timed Study 11/15/19 1:48 AM PORTER MARINA RENAL FUNCTION PANEL Routine 11/15/2024 1:48 AM PORTER MARINA CBC WITH DIFFERENTIAL Routine 11/15/2024 1:48 AM PORTER MARINA MAGNESIUM LEVEL Routine 11/15/2024 1:48 AM PORTER MARINA UNFRACTIONATED HEPARIN ACTIVITY Timed Study 11/14/2024 5:09 PM PORTER MARINA US ANKLE PRESSURE INDEX Routine 11/14/19 4:50 PM PORTER MARINA US VENOUS DOPPLER LEG BILATERAL Routine 11/14/2024 4:48 PM PORTER MARINA MRI FOOT WO CONTRAST LEFT Routine 11/14/2024 3:11 PM PORTER MARINA MRI FOOT WO CONTRAST RIGHT Routine 11/14/2024 2:47 PM PORTER MARINA UNFRACTIONATED HEPARIN ACTIVITY Timed Study 11/14/2024 8:52 AM PORTER MARINA MAGNESIUM LEVEL Routine 11/14/2024 12:58 AM PORTER MARINA COMPREHENSIVE METABOLIC PANEL Routine 11/14/2024 12:58 AM PORTER MARINA CBC WITH DIFFERENTIAL Routine 11/14/2024 12:58 AM PORTER MARINA HEMOGLOBIN A1C Routine 11/14/2024 12:58 AM PORTER MARINA UNFRACTIONATED HEPARIN ACTIVITY Stat 11/14/2024 12:46 AM PORTER MARINA PTT Stat 11/14/2024 12:46 AM PORTER MARINA UNFRACTIONATED HEPARIN ACTIVITY Routine 11/14/2024 12:46 AM PORTER MARINA US DOPPLER VENOUS ARM BILATERAL Routine 11/14/2024 12:20 AM PORTER MARINA PT EVAL AND TREAT Routine 11/13/2024 9:5 0 PM PORTER MARINA OT EVAL AND TREAT Routine 11/13/2024 9:5 0 PM PORTER MARINA MRI PRIOR STUDY Routine 11/10/2024 6:35 AM PORTER MARINA MRI PRIOR STUDY Routine 11/10/2024 6:30 AM PORTER MARINA X-RAY PRIOR STUDY Routine 11/09/2024 8:0 0 PM PORTER MARINA X-RAY PRIOR STUDY Routine 11/09/2024 7:5 5 PM PORTER MARINA X-RAY PRIOR STUDY Routine 11/09/2024 4:4 5 AM PORTER MARINA X-RAY PRIOR STUDY Routine 11/09/2024 4:4 0 AM PORTER MARINA X-RAY PRIOR STUDY Routine 11/09/2024 3:4 5 AM PORTER MARINA X-RAY PRIOR STUDY Routine 11/09/2024 3:[address] PRIOR STUDY Routine 11/09/2024 3:30 AM PORTER MARINA PET BONE IMG W CT SKL BSE MID THG Routine 11/05/2024 2:45 PM PORTER MARINA from Last 3 Months Results * US ANKLE PRESSURE INDEX (01/02/2025 3:13 PM CDT) Only the most recent of2 resultswithin the time period is included. Anatomical Region Laterality Modality Lower Extremity Ultrasound 01/02/2025 2:30 PM CDT Narrative 01/02/2025 4:08 PM CDT [facility] NADER Arterial Physiologic Evaluation Patient: Jc De Leon Study ID: 1 Gender: M : 1960 Age: 64 Race: [facility] Height 182.9cm Study Date: 01/02/2025 Weight: 89.8kg Access. #: [id number] *Referring Physician:Patricia Montanez Amy Elizabeth *Ordering Physician:Patricia Montanez *Ticket Sales Supervisor:* Dory Shahid Indications: PVD. History: Risk factors: Recent surgery: Peripheral intervention. Prior angiography/angioplasty. Study data: Study status: Routine. Procedure: A vascular evaluation was performed. Ankle and brachial pressures were indexed and Doppler waveforms obtained at the ankle. NADER. Ankle-brachial index. Birthdate: Patient birthdate: 1960. Age: Patient is 64year(s) old. Sex: gender: male. Height: 182.9cm. 72in. Weight: 89.8kg. : 198lb. Body mass index: BMI: 26.9kg/m^2. Body surface area: BSA: 2.15m^2. Study date: Study date: 01/02/2025. Study time: 02:30 PM. Location: Vascular laboratory. Patient status: Outpatient. Impressions 1. No evidence of arterial insufficiency at rest, involving the right lower extremity, status post peripheral intervention. 2. No evidence of arterial insufficiency at rest, involving the left lower extremity. 3. Doppler waveforms at the level of the right ankle are triphasic. 4. Doppler waveforms at the level of the left ankle are triphasic. Arterial evaluation findings: Right: 1. Right NADER: 1.09. This is within the normal range at rest. 2. Continuous wave Doppler of the right leg vessels appears normally biphasic. 3. Right first digit pressure could not be obtained. 4. Digit photoplethysmography (PPG) is essentially normal on the right. Left: 1. Left NADER: 0.96. This is consistent within normal range at rest. 2. Continuous wave Doppler of the left leg vessels appears normally biphasic. 3. Left first digit pressure could not be obtained. 4. Digit photoplethysmography (PPG) is essentially normal on the left. Tables: Brachial pressures: +--------+ + + ! !Left !Max ! +--------+ + + !Systolic!L(sys): 129mm Hg!Max: 129mm Hg! +--------+ + + Ankle brachial indices: +----+----+ +--------+----+----+ + + !R PT!R DP!R PT index!Brachial!L PT!L DP!L PT index!L DP index! +----+----+ +--------+----+----+ + + !141 !NC !1.09 !129mm Hg!123 !124 !0.95 !0.96 ! +----+----+ +--------+----+----+ + + *Pressures are expressed in mm Hg Prepared and Electronically Authenticated Mariaa Mathew [id number] Procedure Note Mariaa Mathew MD - 01/02/2025 [facility] NADER Arterial Physiologic Evaluation Patient: Jc De Leon Study ID: [id number] Gender: Negro : 1960 Age: 64 Race: HUNTER Height 182.9cm Study Date: 01/02/2025 Weight: 89.8kg Access. #: [id number] *Referring Physician:Patricia Montanez AmyElizabeth *Ordering Physician:Patricia Montanez *Ticket Sales Supervisor:Dory Underwood Indications: PVD. History: Risk factors: Recent surgery: Peripheral intervention. Prior angiography/angioplasty. Study data: Study status: Routine. Procedure: A vascular evaluationwas performed. Ankle and brachial pressures were indexed and Dopplerwaveforms obtained at the ankle. NADER. Ankle-brachial index. Birthdate:Patient birthdate: 1960. Age: Patient is 64year(s) old. Sex: Birthgender: male. Height: 182.9cm. 72in. Weight: 89.8kg. : 198lb. Body massindex: BMI: 26.9kg/m^2. Body surface area: BSA: 2.15m^2. Study date:Study date: 01/02/2025. Study time: 02:30 PM. Location: Vascular laboratory. Patient status: Outpatient. Impressions 1. No evidence of arterial insufficiency at rest, involving the rightlower extremity, status post peripheral intervention. 2. No evidence of arterial insufficiency at rest, involving the leftlower extremity. 3. Doppler waveforms at the level of the right ankle are triphasic. 4. Doppler waveforms at the level of the left ankle are triphasic. Arterial evaluation findings: Right: 1. Right NADER: 1.09. This is within the normal range at rest. 2. Continuous wave Doppler of the right leg vessels appears normallybiphasic. 3. Right first digit pressure could not be obtained. 4. Digit photoplethysmography (PPG) is essentially normal on the right. Left: 1. Left NADER: 0.96. This is consistent within normal range at rest. 2. Continuous wave Doppler of the left leg vessels appears normallybiphasic. 3. Left first digit pressure could not be obtained. 4. Digit photoplethysmography (PPG) is essentially normal on the left. Tables: Brachial pressures: +--------+ + + ! !Left !Max ! +--------+ + + !Systolic!L(sys): 129mm Hg!Max: 129mm Hg! +--------+ + + Ankle brachial indices: +----+----+ +--------+----+----+ + + !R PT!R DP!R PT index!Brachial!L PT!L DP!L PT index!L DP index! +----+----+ +--------+----+----+ + + !141 !NC !1.09 !129mm Hg!123 !124 !0.95 !0.96 ! +----+----+ +--------+----+----+ + + *Pressures are expressed in mm Hg Prepared and Electronically Authenticated Mariaa Mathew [id number] Patricia Quezada POULTRY TENDER US ORDERABLES Final Res ult * (ABNORMAL) ANAEROBIC/AEROBIC CULTURE W GRAM STAIN (12/18/2024 11:34 AM [facility]) Only the most recent of2 resultswithin the time period is included. ANAEROBIC CULTURE SEE NOTE Favery Kishore Comment: CULTURE, ANAEROBIC BACTERIA W/GRAM STAIN Micro Number: [id number] Test Status: Final Specimen Source: Toe 3rd, left Specimen Quality: Adequate Gram Stain: No white blood cells seen Few Gram positive cocci in clusters Result: No anaerobes isolated. AEROBIC CULTURE SEE NOTE(A) [employer] Kishore Comment: CULTURE, AEROBIC BACTERIA Micro Number: [id number] Test Status: Final Specimen Source: Toe 32rd,left Specimen Quality: Adequate Result: Moderate growth of Staphylococcus aureus Scant growth of Staphylococcus epidermidis S.aureus S.epidermidis INT DAVID INT DAVID CIPROFLOXACIN S 1 S <=0.5 CLINDAMYCIN S <=0.25 S <=0.25 DOXYCYCLINE S S ERYTHROMYCIN S <=0.25 S <=0.25 GENTAMICIN S <=0.5 S <=0.5 LEVOFLOXACIN S 0.5 S <=0.12 LINEZOLID S 2 S 1 MOXIFLOXACIN S <=0.25 S <=0.25 OXACILLIN S 0.5 1 R NR 2 TETRACYCLINE S <=1 S 2 TRIMETHOPRIM/SULFA S <=10 S <=10 VANCOMYCIN S 1 S 2 S = Susceptible I = Intermediate R = Resistant NS = Not susceptible SDD = Susceptible Dose Dependent * = Not Tested NR = Not Reported NN = See Therapy Comments THERAPY COMMENTS Note 1: Oxacillin susceptible staphylococci are susceptible to other penicillinase-stable penicillins (e.g., methicillin, nafcillin), beta- lactam/beta-lactamase inhibitor combinations, and cephems with staphylococcal indications, including cefazolin. Note 2: Oxacillin-resistant staphylococci are resistant to all currently available beta-lactam antimicrobial agents with the possible exception of ceftaroline. Susceptibility testing performed using Sarabia Huff Disk Diffusion and therefore DAVID values are not provided. Test Performed at: [place] [address] [address] WILLIE David [phone] Haydee Atkins Lesion/Drainage Fluid (Toe 3rd, left) 12/18/2024 11:34 AM [facility] 12/19/2024 3:51 AM [facility] Jesus Luciano DPM MICROBIOLOGY - GENERAL ORDE [facility] Final Result [facility] [phone] [place] [address] Administration [place] David [phone] * BASIC METABOLIC PANEL (12/11/2024 4:32 PM [facility]) Only the most recent of3 resultswithin the time period is included. Blood Aydin Carrasco MD CHEMISTRY ORDERABLES Final Resu lt * CBC WITH AUTODIFFERENTIAL (12/11/2024 11:49 AM [facility]) Blood Aydin Carrasco MD HEMATOLOGY ORDERABLES Final Res ult * VANCOMYCIN LEVEL RANDOM (11/26/2024 4:39 AM [facility]) Only the most recent of7 resultswithin the time period is included. VANCOMYCIN, RANDOM 17.8 No Ref Range Estab ug/mL 11/26/2024 6:35 AM [facility] Blood Venipuncture / Unknown 11/26/2024 4:39 AM [facility] 11/26/2024 6:05 AM [facility] Diego Mcknight MD CHEMISTRY ORDERABLES Final Result [facility] CLIA# [id number] [place] [address] * (ABNORMAL) RENAL FUNCTION PANEL (11/26/2024 4:39 AM [facility]) Only the most recent of12 resultswithin the time period is included. SODIUM 131(L) 136 - 145 mmol/L 11/26/2024 6:35 AM [facility] [employer] [facility] POTASSIUM 4.9 3.4 - 5.1 mmol/L 11/26/2024 6:35 AM [facility] [employer] [facility] CHLORIDE 96(L) 98 - 107 mmol/L 11/26/2024 6:35 AM [facility] [employer] [facility] CO2 21(L) 22 - 29 mmol/L 11/26/2024 6:35 AM [facility] CALCIUM 10.3 8.6 - 10.4 mg/dL 11/26/2024 6:35 AM [facility] BUN 53(H) 6 - 20 mg/dL 11/26/2024 6:35 AM [facility] CREATININE 7.72(H) 0.67 - 1.17 mg/dL 11/26/2024 6:35 AM [facility] GLUCOSE 100(H) 74 - 99 mg/dL 11/26/2024 6:35 AM [facility] ALBUMIN 3.3(L) 3.5 - 5.2 g/dL 11/26/2024 6:35 AM [facility] [employer] [facility] PHOSPHORUS 4.5 2.5 - 4.5 mg/dL 11/26/2024 6:35 AM [facility] [employer] [facility] GFR 7(L) >=60 mL/min/1.7 3 sq meter 11/26/2024 6:35 AM [facility] [employer] [facility] Comment:eGFR calculated with 2020 CKD-EPI equation. Vegetarian diet, extremely high or low muscle mass, and may affect results. Cystatin C with Glomerular Filtration Rate is a suitable alternative for these patients. ANION GAP 14 8 - 16 mmol/L 11/26/2024 6:35 AM [facility] [employer] [facility] Blood Venipuncture / Unknown 11/26/2024 4:39 AM [facility] 11/26/2024 6:05 AM [facility] Result [facility] Jesus Luciano DPM CHEMISTRY ORDERABLES Final Result Performing Organization Address [facility] Co de Phone Number [facility] CLIA# [id number] [place] [address] * (ABNORMAL) PTT (11/25/2024 7:42 PM [facility]) Only the most recent of22 resultswithin the time period is included. PTT 70.1(H) 23.1 - 37.1 seconds 11/25/2024 8:24 PM [facility] Blood Venipuncture / Unknown 11/25/2024 7:42 PM [facility] 11/25/2024 7:59 PM [facility] Result [facility] Diego Mcknight MD HEMATOLOGY ORDERABLES Selin l Result Performing Organization Address City/[facility]/ZIP Co de Phone Number [facility] CLIA# [id number] [place] [address] * TELEMETRY REPORT (11/25/2024 3:26 PM [facility]) Only the most recent of16 resultswithin the time period is included. Result [facility] Provider Scanning ECG ORDERABLES Final Result * (ABNORMAL) CBC WITHOUT DIFFERENTIAL (11/24/2024 2:56 AM [facility]) WBC 8.9 4.0 - 9.8 K/uL 11/24/2024 5:01 AM [facility] RBC 2.20(L) 4.50 - 5.40 M/uL 11/24/2024 5:01 AM [facility] HEMOGLOBIN 7.3(L) 13.6 - 16.5 g/dL 11/24/2024 5:01 AM [facility] HEMATOCRIT 22.7(L) 40.0 - 48.0 % 11/24/2024 5:01 AM [facility] MCV 103.2(H) 82.0 - 99.0 fL 11/24/2024 5:01 AM [facility] MCH 33.2(H) 27.2 - 32.6 pg 11/24/2024 5:01 AM [facility] MCHC 32.2 31.5 - 35.5 g/dL 11/24/2024 5:01 AM [facility] PLATELETS 332 140 - 350 K/uL 11/24/2024 5:01 AM [facility] MPV 10.2 9.3 - 12.4 fL 11/24/2024 5:01 AM [facility] RDW 17.3(H) 11.5 - 14.5 % 11/24/2024 5:01 AM [facility] RDW-STDEV 65.5(H) 37.1 - 48.7 fL 11/24/2024 5:01 AM [facility] Blood Venipuncture / Unknown 11/24/2024 2:56 AM [facility] 11/24/2024 5:01 AM [facility] us Diego Mcknight MD HEMATOLOGY ORDERABLES Selin l Result [facility] CLIA# [id number] [place] [address] * XR FOOT 3+ VW RIGHT (11/23/2024 1:04 PM [facility]) Anatomical Region Laterality Modality Ankle / Foot Computed Radiogr aphy 11/23/2024 1:04 PM [facility] Impressions 11/23/2024 1:14 PM [facility] IMPRESSION: 1. Interval first digit amputation. DICTATION LOCATION: Location 7 - [facility] Narrative 11/23/2024 1:14 PM [facility] EXAMINATION: XR FOOT 3+ VW RIGHT DATE: [...] Interval first digit amputation. DICTATION LOCATION: Location [address] [place] [address] Jesus Luciano DPM DIAGNOSTIC IMAGING ORDERABL ES Final Result * TRANSFUSE RED BLOOD CELLS (11/23/2024 12:36 PM [facility]) Only the most recent of2 resultswithin the time period is included. Reinier Dale MD BLOOD TRANSFUSI ON ORDERABLES Final Result * PATHOLOGY (11/23/2024 11:55 AM [facility]) CASE REPORT Surgical Pathology Report Case: [id number] Authorizing Provider: Jesus Luciano DPM Collected: 11/23/2024 11:55 AM Ordering Location: [facility] Received: 11/25/2024 09:35 AM Operating Room Pathologist: Shirley Tran MD Specimens: A) - Bone, proximal first metatarsal, Toe Great, right B) - Toe Great, right, right great toe 11/27/2024 3:40 PM [facility] FINAL DIAGNOSIS Bone, proximal first metatarsal, excision - Bone with focal acute inflammation, consistent with focal acute osteomyelitis - Bone with degenerative/regenera tive change Foot, right great toe, amputation - Skin and soft tissue with ulceration, abscess, and devitalization/necros is - Bone with devitalization/necros is 11/27/2024 3:40 PM [facility] at 1539 [facility] GROSS DESCRIPTION A. Received in formalin labeled [...] lesion submitted after decalcification 11/27/2024 3:40 PM [facility] MICROSCOPIC DESCRIPTION Microscopic review supports the diagnosis. 11/27/2024 3:40 PM [facility] OPERATIVE PROCEDURE 1: TOE(S) AMPUTATION 11/27/2024 3:40 PM [facility] CLINICAL INFORMATION UNKNOWN 11/27/2024 3:40 PM [facility] COMMENT Immunohistochemical stains were performed, if any, and interpreted at [facility] ([facility]) Laboratory with appropriately staining controls. This test was developed and its performance characteristics determined by [facility] Lab. It has not been cleared [...] these and other antigens. 11/27/2024 3:40 PM [facility] Tissue ENTIRE BONE ORGAN / Unknown Collection / Unknown 11/23/2024 11:55 AM [facility] 11/25/2024 9:35 AM [facility] Tissue specimen (specimen) (Toe Great, right) Collection / Unknown 11/23/2024 11:55 AM [facility] 11/25/2024 9:35 AM [facility] Jesus Luciano DPNegro PATHOLOGY/CYTOLOGY ORDERABL ES Final Result [facility] CLIA# [id number] [place] [address] * PREPARE RED BLOOD CELLS (11/23/2024 6:58 AM [facility]) Only the most recent of3 resultswithin the time period is included. Pathologist [facility] COMPONENT TYPE [id number] [facility] COMPONENT IDENTIFICATION [id number] [facility] UNIT ABO O [facility] POS [facility] CROSSMATCH Compatible [facility] COMPONENT STATUS Transfused ME [facility] COMPONENT EXPIRATION DATE/TIME [id number] [facility] COMPONENT CODING SYSTEM [address] [facility] VOLUME, BLOOD PRODUCT 350 [facility] Other, specify 11/23/2024 6: 58 AM [facility] Reinier Dale MD LAB TRANSFUSION ORDERABLES Edited Result - Final [facility] [employer] [facility] CLIA# [id number] [place] [address] * (ABNORMAL) CBC WITH DIFFERENTIAL (11/23/2024 3:44 AM [facility]) Only the most recent of9 resultswithin the time period is included. Pathologist [facility] WBC 9.6 4.0 - 9.8 K/uL 11/23/2024 4:11 AM [facility] [employer] [facility] RBC 2.12(L) 4.50 - 5.40 M/uL 11/23/2024 4:11 AM [facility] HEMOGLOBIN 7.0(L) 13.6 - 16.5 g/dL 11/23/2024 4:11 AM [facility] HEMATOCRIT 21.9(L) 40.0 - 48.0 % 11/23/2024 4:11 AM [facility] MCV 103.3(H) 82.0 - 99.0 fL 11/23/2024 4:11 AM [facility] MCH 33.0(H) 27.2 - 32.6 pg 11/23/2024 4:11 AM [facility] MCHC 32.0 31.5 - 35.5 g/dL 11/23/2024 4:11 AM [facility] RDW 16.6(H) 11.5 - 14.5 % 11/23/2024 4:11 AM [facility] RDW-STDEV 62.7(H) 37.1 - 48.7 fL 11/23/2024 4:11 AM [facility] PLATELETS 346 140 - 350 K/uL 11/23/2024 4:11 AM [facility] MPV 9.8 9.3 - 12.4 fL 11/23/2024 4:11 AM [facility] NEUTROPHILS 74 % 11/23/2024 4:11 AM [facility] LYMPHOCYTES 13 % 11/23/2024 4:11 AM [facility] MONOCYTES 10 % 11/23/2024 4:11 AM [facility] EOSINOPHILS 2 % 11/23/2024 4:11 AM [facility] BASOPHILS 1 % 11/23/2024 4:11 AM [facility] IMMATURE GRANULOCYTES 1 % 11/23/2024 4:11 AM [facility] Comment:IG (Immature Granulo cyte) count includes Metamyelocytes, Myelocytes, and Promyelocytes NEUTROPHIL ABSOLUTE 7.09(H) 1.90 - 7.00 K/uL 11/23/2024 4:11 AM [facility] LYMPHOCYTE ABSOLUTE 1.19 0.70 - 4.50 K/uL 11/23/2024 4:11 AM [facility] MONOCYTE ABSOLUTE 0.94 0.10 - 1.30 K/uL 11/23/2024 4:11 AM [facility] EOSINOPHIL ABSOLUTE 0.20 0.00 - 0.70 K/uL 11/23/2024 4:11 AM [facility] BASOPHILS ABSOLUTE 0.07 0.00 - 0.20 K/uL 11/23/2024 4:11 AM [facility] IMMATURE GRANULOCYTES ABSOLUTE 0.06(H) 0.00 - 0.03 K/uL 11/23/2024 4:11 AM [facility] Blood Venipuncture / Unknown 11/23/2024 3:44 AM [facility] 11/23/2024 4:11 AM [facility] Noy Jackson DO HEMATOLOGY ORDERABLES Selin l Result Performing Organization Address City/State/[facility] Co de Phone Number [facility] CLIA# [id number] [place] [address] * TYPE AND SCREEN (11/23/2024 3:44 AM [facility]) Only the most recent of2 resultswithin the time period is included. ABO GROUP O 11/23/2024 4:42 AM [facility] RH (D) TYPE Positive 11/23/2024 4:42 AM [facility] ANTIBODY SCREEN Negative 11/23/2024 4:42 AM [facility] Blood Venipuncture / Unknown 11/23/2024 3:44 AM [facility] 11/23/2024 3:50 AM [facility] Noy Jackson DO BLOOD BANK ORDERABLES Edit ed Result - Final [facility]# [id number] [place] [address] * POTASSIUM LEVEL (11/22/2024 4:05 PM [facility]) POTASSIUM 4.6 3.4 - 5.1 mmol/L 11/22/2024 5:15 PM [facility] Blood Venipuncture / Unknown 11/22/2024 4:05 PM [facility] 11/22/2024 4:26 PM [facility] us Kianna Lu MD CHEMISTRY ORDERABLES Final Resul t Performing Organization Address [facility] Co de Phone Number [facility]# [id number] [place] [address] * HEMODIALYSIS (11/22/2024 12:01 PM [facility]) Narrative Karissa Au, LEEROY - 11/22/2024 12:01 PM [facility] Karissa Au RN 11/22/2024 12:03 PM Hemodialysis [...] Status: Right forearm fistula with + bruit/thrill. [place] removed. Direct pressure held until hemostasis achieved. [...] Result * MAGNESIUM LEVEL (11/21/2024 6:01 AM [facility]) Only the most recent of3 resultswithin the time period is included. MAGNESIUM 2.1 1.6 - 2.6 mg/dL 11/21/2024 6:44 AM [facility] Blood Venipuncture / Unknown 11/21/2024 6:01 AM [facility] 11/21/2024 6:07 AM [facility] Roni Barahona PA-C CHEMISTRY ORDERABLES Final Result Performing Organization Address City/[facility]/ZIP Co de Phone Number [facility] CLIA# [id number] [place] [address] * POC GLUCOSE (11/21/2024 5:39 AM [facility]) GLUCOSE POC 90 74 - 99 mg/dL 11/21/2024 5:39 AM [facility] POINT OF CARE SPECIMEN SOURCE, GLUCOSE POC Whole Blood 11/21/2024 5:39 AM [facility] POINT OF CARE Blood, whole 11/21/2024 5:39 AM [facility] 11/21/2024 11:05 AM [facility] Diego Mcknight MD POINT OF CARE TESTING Selin l Result [facility] CLIA # [id number] [place] [address] * EKG 12-LEAD (11/21/2024 5:29 AM [facility]) Only the most recent of2 resultswithin the time period is included. 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1960 Requested By: CHONG GARCIA Order Number: [id number] Reading : Chong Veloz Measurements Intervals [place] Rate: 79 P: 0 LA: 0 QRS: 17 QRSD: 100 T: 122 QT: 412 QTc: 472 Interpretive Statements Atrial fibrillation ST & Marked T wave abnormality, consider anterolateral ischemia Prolonged QT Abnormal ECG Compared to ECG 11/17/2024 12:43:44 Prolonged QT interval now present Electronically Signed On 11-21-2024 7:30:28 [facility] by Chong Veloz Procedure Note Chong Veloz MD - 11/21/[address] [address] Test Date: 2024-11-21 Pat Name: JC DE LEON Department: 98 Room: 6420 01 Gender: Male 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1960 Requested By: CHONG GARCIA Order Number: [id number] Reading MYNOR Veloz Measurements Intervals [place] Rate: 79 P: 0 LA: 0 QRS: 17 QRSD: 100 T: 122 QT: 412 QTc: 472 Interpretive Statements Atrial fibrillation ST & Marked T wave abnormality, consider anterolateral ischemia Prolonged QT Abnormal ECG Compared to ECG 11/17/2024 12:43:44 Prolonged QT interval now present Electronically Signed On 11-21-2024 7:30:28 [facility] by Chong Veloz us Roni Barahona PA-C ECG ORDERABLES Final Resul t INTERFACE SYSTEM Refer to clinic/hospital department * VERIFICATION BLOOD GROUP (11/20/2024 8:52 PM [facility]) ABO GROUP O 11/20/2024 10:00 PM [facility] RH (D) TYPE Positive 11/20/2024 10:00 PM [facility] Blood Venipuncture / Unknown 11/20/2024 8:52 PM [facility] 11/20/2024 9:29 PM [facility] Result [facility] Franca Dykes MD BLOOD BANK ORDERAB LES Final Result Performing Organization Address City/[facility]/ZIP Co de Phone Number [id number] [place] [address] * (ABNORMAL) HEMOGLOBIN AND HEMATOCRIT (11/20/2024 3:13 PM [facility]) HEMOGLOBIN 7.3(L) 13.6 - 16.5 g/dL 11/20/2024 3:31 PM [facility] HEMATOCRIT 22.5(L) 40.0 - 48.0 % 11/20/2024 3:31 PM [facility] Blood Venipuncture / Unknown 11/20/2024 3:13 PM [facility] 11/20/2024 3:28 PM [facility] Result [facility] Best Aiken MD HEMATOLOGY ORDERABLES Selin l Result Performing Organization Address City/[facility]/ZIP Co de Phone Number [facility] CLIA# [id number] [place] [address] * POC ACTIVATED CLOTTING TIME (11/20/2024 1:23 PM [facility]) Only the most recent of11 resultswithin the time period is included. ACTIVATED CLOTTING TIME POC 157 sec 11/20/2024 1:23 PM [facility] Comment: Target Range(s): >400 sec. Cardiovascular Surgery >250 sec. when Cardiac Cath or other intervention is performed. <180 sec. to pull sheath Blood 11/20/2024 1:23 PM [facility] 11/20/2024 1:52 PM [facility] Result [facility] Diego Mcknight MD POINT OF CARE TESTING Selin l Result Performing Organization Address [facility]/ZIP Co de Phone Number [facility] CLIA# [id number] [place] [address] * XR OR (11/20/2024 1:12 PM [facility]) Narrative [facility] POINT OF CARE - 11/20/2024 1:13 PM [facility] Order information only. Exam was auto-finalized. Franca Dykes MD DIAGNOSTIC IMAGING ORDERABLES Final Result Performing Organization Address [facility] Co de Phone Number [facility] POINT OF CARE IA # [id number] [place] [address] * POC LACTIC ACID (11/20/2024 12:10 PM [facility]) Only the most recent of2 resultswithin the time period is included. LACTIC ACID POC 0.6 <=2.0 mmol/L 11/20/2024 12:10 PM [facility] SPECIMEN SOURCE, GASES POC Arterial 11/20/2024 12:10 PM [facility] Blood 11/20/2024 12:1 0 PM [facility] 11/20/2024 12:11 PM [facility] Diego Mcknight MD POINT OF CARE TESTING Selin l Result Performing Organization Address [facility] Co de Phone Number [facility] CLIA# [id number] [place] [address] * (ABNORMAL) BLOOD GAS,(INCL. H+H, LYTES, GLUC) (11/20/2024 12:10 PM PORTER MARINA) Only the most recent of2 resultswithin the time period is included. PH BLOOD POC 7.37 7.35 - 7.45 11/20/2024 12:10 PM P[facility]TER MARINA [facility] PCO2 POC 35 35 - 48 mm Hg 11/20/2024 12:10 PM [facility] PO2 POC 144(H) 83 - 108 mm Hg 11/20/2024 12:10 PM [facility] HCO3 (CALC) POC 20(L) 22 - 26 mmol/L 11/20/2024 12:10 PM [facility] O2 SATURATION POC 100(H) 94 - 98 % 11/20/2024 12:10 PM [facility] [facility] B[facility] EXCESS POC -5(L) -2 - 3 mmol/L 11/20/2024 12:10 PM [facility] HEMOGLOBIN POC 6.4(LL) 13.6 - 16.5 g/dL 11/20/2024 12:10 PM [facility] HEMATOCRIT POC 19(L) 40 - 48 % 11/20/2024 12:10 PM [facility] Comment:Estimated Value GLUCOSE POC 92 74 - 99 mg/dL 11/20/2024 12:10 PM [facility] SODIUM POC 131(L) 135 - 145 mmol/L 11/20/2024 12:10 PM [facility] POTASSIUM POC 5.8(H) 3.5 - 4.9 mmol/L 11/20/2024 12:10 PM [facility] CHLORIDE POC 105 98 - 107 mmol/L 11/20/2024 12:10 PM [facility] CALCIUM IONIZED POC 5.3(H) 4.8 - 5.2 mg/dL 11/20/2024 12:10 PM [facility] PH TEMP CORRECT 7.37 7.35 - 7.45 11/20/19 12:10 PM [facility] PCO2 TEMP CORRECT 35 35 - 48 mm Hg 11/20/2024 12:10 PM [facility] PO2 TEMP CORRECT 144(H) 83 - 108 mm Hg 11/20/2024 12:10 PM [facility] SPECIMEN SOURCE, GASES POC Arterial 11/20/2024 12:10 PM [facility] PATIENT'S TEMPERATURE POC 37.0 degrees 11/20/2024 12:10 PM [facility] OXYGEN CONTENT POC 9.0 mL/dL 11/20/2024 12:10 PM [facility] Blood, arterial 11/20/2024 1 2:10 PM [facility] 11/20/2024 12:11 PM [facility] Diego Mcknight MD ABG ORDERABLES Final Resu lt [facility] CLIA# [id number] [place] [address] * (ABNORMAL) OXIMETRY (11/20/2024 12:10 PM [facility]) Only the most recent of2 resultswithin the time period is included. OXYHEMOGLOBIN POC 96.4 94.0 - 97.0 % 11/20/2024 12:10 PM [facility] HEMOGLOBIN POC 6.4(LL) 13.6 - 16.5 g/dL 11/20/2024 12:10 PM [facility] OXYGEN CONTENT POC 9.0 mL/dL 11/20/2024 12:10 PM [facility] O2 SATURATION POC 100(H) 94 - 98 % 025 12:10 PM [facility] SPECIMEN SOURCE, GASES POC Arterial 11/20/2024 12:10 PM [facility] SAMPLE SITE, GASES POC N-SY 11/20/2024 12:10 PM [facility] Blood 11/20/2024 12:1 0 PM [facility] 11/20/2024 12:11 PM [facility] Diego Mcknight MD ABG ORDERABLES Final Resu lt [facility] CLIA# [id number] [place] [address] * (ABNORMAL) METHEMOGLOBIN QUANTITATIVE (11/20/2024 12:10 PM [facility]) Only the most recent of2 resultswithin the time period is included. METHEMOGLOBIN QUANT POC 1.2 <=1.5 % 11/20/2024 12:10 PM [facility] HEMOGLOBIN POC 6.4(LL) 13.6 - 16.5 g/dL 11/20/2024 12:10 PM [facility] Blood 11/20/2024 12:1 0 PM [facility] 11/20/2024 12:11 PM [facility] Diego Mcknight MD ABG ORDERABLES Final Resu lt Performing Organization Address City/[facility]/ZIP Co de Phone Number [id number] [place] [address] * (ABNORMAL) CARBOXYHEMOGLOBIN (11/20/2024 12:10 PM [facility]) Only the most recent of2 resultswithin the time period is included. Pathologist [facility] CARBOXYHEMOGLOBIN POC 2.4 <=7.0 % 02/2025 12:10 PM [facility] HEMOGLOBIN POC 6.4(LL) 13.6 - 16.5 g/dL 11/20/2024 12:10 PM [facility] Blood 11/20/2024 12:1 0 PM [facility] 11/20/2024 12:11 PM [facility] Diego Mcknight MD ABG ORDERABLES Final Resu lt [facility] CLIA# [id number] [place] [address] * LA ANES INSERT CATH, ART, PERCUT, SHORTTERM (11/20/2024 8:36 AM [facility]) Narrative Darius Dela Cruz AA-C - 11/20/2024 8:36 AM [facility] Darius Dela Cruz AA-C 11/20/2024 8:38 AM [...] size: 20 G Catheter Length (in.): 1.75 Stites Identification: palpation technique Number of attempts: 1 Successful placement: yes Assessment: blood return through port Procedure uneventful Post-procedure: line secured and dressing applied Kianna Lu MD PROCEDURE/MINOR SURGICAL ORDERAB LES Final Result * LA ANES VNPNXR 3 YEARS/> PHYS/QHP SKILL, PERIPHERAL IV ADULT (11/20/2024 8:15 AM [facility]) Narrative Darius Dela Cruz AA-C - 11/20/2024 8:15 AM [facility] Darius Dela Cruz AA-C 11/20/2024 8:36 AM Peripheral Line Insertion Date/Time: 11/20/2024 8:15 AM Staffing Performed: LEASE PICKER/CAA Authorized by: Kianna Lu MD Performed by: [...] PROCEDURE/MINOR SURGICAL ORDERAB LES Final Result * LA ANES INSERT ENDOTRACHEAL AIRWAY (11/20/2024 7:36 AM [facility]) Narrative Darius Dela Cruz AA-C - 11/20/2024 7:36 AM [facility] Darius Dela Cruz AA-C 11/20/2024 8:17 AM Airway Date/Time: 11/20/2024 7:36 AM Location: OR Plan: elective intubation Patient Identity Confirmed by: Verbally with patient and armband Airway: not difficult Staffing Performed: Student NA/AA Authorized by: Kianna Lu MD Performed by: Darius Dela Cruz AA-C Ui Designer: Kianna Lu MD Indications and Patient Condition: [...] * EXTRA TUBE (BLUE) (11/18/2024 12:41 AM [facility]) Blood Venipuncture / Unknown 11/18/2024 12:41 AM [facility] 11/18/2024 12:41 AM [facility] us Brant Leonard MD HEMATOLOGY ORDERABLES Final Re sult [facility]# [id number] [place] [address] * (ABNORMAL) UNFRACTIONATED HEPARIN MONITORING (11/17/2024 5:21 PM [facility]) Only the most recent of8 resultswithin the time period is included. ANTI-XA UNFRAC HEP >1.10(HH) See Interpreta tion. IU/mL 11/17/2024 7:01 PM [facility] Blood Venipuncture / Unknown 11/17/2024 5:21 PM [facility] MARINA 11/17/2024 6:06 PM [facility] Narrative [facility] - 11/17/2024 7:01 PM [facility] Unfractionated Heparin Therapeutic Range: 0.30-0.70 IU/ml Refer to pharmacy adult heparin protocol for further recommendation. The reference range for this test is specific to the anticoagulant and is not appropriate for monitoring patients on a DOAC protocol. us Miracle Horne NP HEMATOLOGY ORDERABLES Final Res ult [facility] CLIA# [id number] [place] [address] * NM MYOCARD PERF IMAG SPECT MULT (11/17/2024 9:21 AM [facility]) 11/17/2024 9:23 AM [facility] Narrative INTERFACE SYSTEM - 11/17/2024 10:58 AM [facility] HISTORY: Preoperative risk assessment RESTING EKG: Normal [...] physician: Dr. Michi Mckeon Michi Mckeon MD NM ORDERABLES Final Result INTERFACE SYSTEM Refer to clinic/hospital department * NM PHARMACOLOGICAL STRESS TEST (11/17/2024 8:23 AM P[facility] MAR[facility]) [facility] POINT OF CARE - 11/17/2024 8:24 AM [facility] Order information only. Exam was auto-finalized. Michi Mckeon MD NM ORDERABLES Final Result Performing Organization Address City/[facility]/ZIP Co de Phone Number [facility] POINT [facility]ARE CLIA # [id number] [place] [address] * ECHOCARDIOGRAM W/ CONTRAST AGENT (11/16/2024 4:48 PM [facility]) EJECTION FRACTION 60 INTERFACE SYSTEM 11/16/2024 4:19 PM [facility] Narrative INTERFACE SYSTEM - 11/16/2024 10:08 PM [facility] Transthoracic Echocardiogram Patient: Jc De Leon Study ID: [id number] Gender: M : 1960 Age: 64 Race: CAU Height 182.9cm Study Date: 11/16/2024 Weight: 92.1kg Access. #: [id number] BP: 133 / 75 *Referring Physician:* Miracle Horne *Ordering Physician:* Miracle Horne *Ticket Sales Supervisor:* Nishant Cordoba RDCS,[facility] pier worker: Nurse: Indications: Dyspnea. Syncope / Near syncope. [...] values inside specified reference range. Procedure data: [facility] Comparison was made to the study of [...] Bedside. Prepared and Electronically Authenticated Michi Mckeon [id number]:07:49 Procedure Note Michi Mckeon MD - 11/16/2024 Transthoracic Echocardiogram Patient: Jc De Leon Study ID: [id number] Gender: M : 1960 Age: 64 Race: CAU Height 182.9cm Study Date: 11/16/2024 Weight: 92.1kg Access. #: [id number] BP: 133 / 75 *Referring Physician:* Miracle Horne *Ordering Physician:Miracle Crane *Ticket Sales Supervisor:José Antonio Cordoba [facility] pier worker: Nurse: Indications: Dyspnea. Syncope / Near syncope. [...] values inside specified reference range. Procedure data: [facility] Comparison was made to the study of [...] Bedside. Prepared and Electronically Authenticated Michi Mckeon [id number]:07:49 us Miracle Horne NP US ORDERABLES Final Result INTERFACE SYSTEM Refer to clinic/hospital department * (ABNORMAL) LIPID PANEL (11/16/2024 5:09 AM [facility]) CHOLESTEROL 75 <200 mg/dL 11/16/2024 3:58 PM [facility] TRIGLYCERIDE 98 <150 mg/dL 11/16/2024 3:58 PM [facility] HDL 33(L) 40 - 59 mg/dL 11/16/2024 3:58 PM [facility] LDL CALCULATED 22 <100 mg/dL 11/16/2024 3:58 PM [facility] NON-HDL CHOLESTEROL 42 <130 mg/dL 11/16/2024 3:58 PM [facility] Blood Venipuncture / Unknown 11/16/2024 5:09 AM [facility] 11/16/2024 6:29 AM [facility] Narrative [facility] - 11/16/2024 3:58 PM [facility] TOTAL CHOLESTEROL mg/dL Desirable <200 Borderline high [...] Leonard MD CHEMISTRY ORDERABLES Final Res ult [facility] [facility] CLIA# [id number] [place] [address] * CTA ABD AORTA BI ILIOFEM W AND/OR WO (11/15/2024 6:53 PM [facility]) Anatomical Region Laterality Modality Abdomen Computed Tomogra phy 11/15/2024 6:23 PM [facility] Impressions 11/15/2024 8:13 PM [facility] IMPRESSION: 1. Extensive multifocal atherosclerotic disease as [...] Absent right kidney. DICTATION LOCATION: Location 7 [facility] 11/15/2024 8:13 PM [facility] EXAMINATION: CTA ABD AORTA BI ILIOFEM W [...] Absent right kidney. DICTATION LOCATION: Location 7 - [facility] Shanika Sebastian POT FILLER CT ORDERABLES Selin l Result * CTA CHEST W AND/OR WO CONTRAST (11/15/2024 6:51 PM [facility]) Anatomical Region Laterality Modality Chest Computed Tomogra phy 11/15/2024 6:29 PM [facility] Impressions 11/15/2024 7:40 PM [facility] IMPRESSION: 1. No evidence of pulmonary embolism. 2. Similar appearance of bilateral pulmonary nodules, most consistent with metastatic disease. Redemonstration of enlarged aortopulmonary lymph node. Increased subcarinal lymph node. 3. Small bilateral pleural effusions. 4. Unchanged lucent lesion at the T12 inferior endplate, most suggestive of metastatic focus. DICTATION LOCATION: Location [address] [place] [address] Narrative 11/15/2024 7:40 PM [facility] EXAMINATION: CTA CHEST W AND/OR WO CONTRAST [...] suggestive of metastatic focus. DICTATION LOCATION: Location [address] [place] [address] ORDERABLES Final Result * BLOOD CULTURE (11/15/2024 3:23 PM [facility]) Only the most recent of2 resultswithin the time period is included. BLOOD CULTURE No growth 11/20/2024 9:03 PM [facility] Blood (Peripheral) Venipuncture / Unknown 11/15/2024 3:23 PM [facility] 11/15/2024 3:51 PM [facility] Miracle Horne NP MICROBIOLOGY - GENERAL ORDERABL ES Final Result Performing Organization Address [facility]/ZIP Co de Phone Number [facility] CLIA# [id number] [address] [place] [address] * HEPATITIS B SURFACE ANTIGEN (11/15/2024 1:48 AM [facility]) HEPATITIS B SURFACE AG NON-REACT THOMAS Non-react thomas 11/15/2024 6:48 PM [facility] Comment:A non-reactive test result does not exclude the possibility of exposure to or infection with hepatitis B. Blood Venipuncture / Unknown 11/15/2024 1:48 AM [facility] 11/15/2024 1:57 AM [facility] Romel Bangura MD CHEMISTRY ORDERABLES Final Resul t Performing Organization Address City/[facility]/ZIP Co de Phone Number [facility] [employer] [facility] CLIA# [id number] [place] [address] * US VENOUS DOPPLER LEG BILATERAL (11/14/2024 4:48 PM [facility]) Anatomical Region Laterality Modality Lower Extremity Ultrasound 11/14/2024 4:49 PM [facility] Impressions 11/14/2024 5:07 PM [facility] IMPRESSION: Normal. DICTATION LOCATION: [address] Narrative 11/14/2024 5:07 PM [facility] EXAMINATION: US VENOUS DOPPLER LEG BILATERAL DATE: [...] evidence of DVT. IMPRESSION: Normal. DICTATION LOCATION: [address] us Joseph Yee NP US ORDERABLES Final Result * MRI FOOT WO CONTRAST LEFT (11/14/2024 3:11 PM [facility]) Anatomical Region Laterality Modality Ankle / Foot Magnetic Resonan ce 11/14/2024 3:11 PM [facility] Impressions 11/14/2024 3:37 PM [facility] IMPRESSION: 1. Wound at the distal 1st digit, with underlying bony signal alteration at the 1st distal phalangeal tuft, suggesting sequela of osteomyelitis, potentially with more chronic appearance, with partial acute component questioned. 2. Wound at the 3rd digit with underlying bony signal alteration at the distal shaft and tuft of the 3rd distal phalanx, most consistent with localized osteomyelitis. DICTATION LOCATION: Location [address] [place] [address] Narrative 11/14/2024 3:37 PM [facility] EXAMINATION: MRI FOOT WO CONTRAST LEFT DATE: [...] is generalized muscular atrophy. Procedure Note Chong Tepmleton MD - 11/14/2024 EXAMINATION: MRI FOOT WO [...] consistent with localized osteomyelitis. DICTATION LOCATION: Location [address] [place] [address] Ruiz Joselito THOMAS MR ORDERABLES Final Result * MRI FOOT WO CONTRAST RIGHT (11/14/2024 2:47 PM [facility]) Anatomical Region Laterality Modality Ankle / Foot Magnetic Resonan ce 11/14/2024 2:48 PM [facility] Impressions 11/14/2024 3:14 PM [facility] IMPRESSION: First distal phalanx fractures are again noted. There is diffuse first distal phalangeal marrow edema and possibly soft tissue gas in the great toe. Osteomyelitis cannot be excluded in the setting of fracture but is highly suspected based on review of the 11/09/2024 outside radiographs. DICTATION LOCATION: Location [address] [place] [address] Narrative 11/14/2024 3:14 PM [facility] EXAMINATION: MRI FOOT WO CONTRAST RIGHT DATE: [...] the 11/09/2024 outside radiographs. DICTATION LOCATION: Location - [facility] Joseph Yee NP MR ORDERABLES Final Result * HEMOGLOBIN A1C (11/14/2024 12:58 AM [facility]) HEMOGLOBIN A1C 5.4 <=5.6 % 11/14/2024 2:30 AM [facility] EST. AVG GLUCOSE, A1C 108 mg/dL 11/14/2024 2:30 AM [facility] Blood Venipuncture / Unknown 11/14/2024 12:58 AM [facility] 11/14/2024 2:12 AM [facility] Narrative [facility] - 11/14/2024 2:30 AM [facility] HGB A1C INTERPRETATION NORMAL: <5.7% PRE-DIABETES: 5.7 - 6.4% DIABETES: 6.5% OR GREATER Joseph Yee NP CHEMISTRY ORDERABLES Final Res ult [facility] CLIA# [id number] [place] [address] * (ABNORMAL) COMPREHENSIVE METABOLIC PANEL (11/14/2024 12:58 AM [facility]) SODIUM 129(L) 136 - 145 mmol/L 11/14/2024 2:44 AM [facility] [employer] [facility] POTASSIUM 4.2 3.4 - 5.1 mmol/L 11/14/2024 2:44 AM [facility] [employer] CHLORIDE 91(L) 98 - 107 mmol/L 11/14/2024 2:44 AM [facility] [employer] CO2 25 22 - 29 mmol/L 11/14/2024 2:44 AM [facility] CALCIUM 9.3 8.6 - 10.4 mg/dL 11/14/2024 2:44 AM [facility] BUN 44(H) 6 - 20 mg/dL 11/14/2024 2:44 AM [facility] CREATININE 7.14(H) 0.67 - 1.17 mg/dL 11/14/2024 2:44 AM [facility] GLUCOSE 100(H) 74 - 99 mg/dL 11/14/2024 2:44 AM [facility] TOTAL PROTEIN 6.1(L) 6.3 - 8.7 g/dL 11/14/2024 2:44 AM [facility] ALBUMIN 3.1(L) 3.5 - 5.2 g/dL 11/14/2024 2:44 AM [facility] BILIRUBIN TOTAL <0.2(L) 0.2 - 1.1 mg/dL 11/14/2024 2:44 AM [facility] ALKALINE PHOSPHATASE 67 40 - 150 U/L 11/14/2024 2:44 AM [facility] AST 20 0 - 41 U/L 11/14/2024 2:44 AM [facility] ALT 17 0 - 41 U/L 11/14/2024 2:44 AM [facility] GFR 8(L) >=60 mL/min/1.7 3 sq meter 11/14/2024 2:44 AM [facility] Comment:eGFR calculated with 2020 CKD-EPI equation. Vegetarian diet, extremely high or low muscle mass, and may affect results. Cystatin C with Glomerular Filtration Rate is a suitable alternative for these patients. ANION GAP 13 8 - 16 mmol/L 11/14/2024 2:44 AM [facility] Blood Venipuncture / Unknown 11/14/2024 12:58 AM [facility] 11/14/2024 2:12 AM [facility] us Joseph Yee NP CHEMISTRY ORDERABLES Final Res ult [facility] CLIA# [id number] [place] [address] * US DOPPLER VENOUS ARM BILATERAL (11/14/2024 12:20 AM [facility]) Anatomical Region Laterality Modality Upper Extremity Ultrasound 11/14/2024 12:2 1 AM [facility] Impressions 11/14/2024 7:07 AM [facility] IMPRESSION: 1. No evidence of deep vein thrombosis in either upper extremity. DICTATION LOCATION: [address] Narrative 11/14/2024 7:07 AM [facility] EXAMINATION: US DOPPLER VENOUS ARM BILATERAL DATE: [...] thrombosis in either upper extremity. DICTATION LOCATION: [address] us Joseph Yee NP US ORDERABLES Final Result * MRI PRIOR STUDY (11/10/2024 6:35 AM [facility]) Only the most recent of2 resultswithin the time period is included. [facility] - 11/14/2024 5:38 AM [facility] This exam was auto finalized to allow images to be scanned to PACS. External Provider [facility] MR ORDERABLES Final Res ult Performing Organization Address [facility] Co de Phone Number [facility] CLIA # [id number] [place] [address] * XR PRIOR STUDY (11/09/2024 8:00 PM [facility]) Only the most recent of6 resultswithin the time period is included. [facility] - 11/14/2024 5:41 AM [facility] This exam was auto finalized to allow images to be scanned to PACS. External Provider [facility] DIAGNOSTIC IMAGING ORDERA BLES Final Result Performing Organization Address [facility] Co de Phone Number [facility] CLIA # [id number] [place] [address] * CT PRIOR STUDY (11/09/2024 3:30 AM P[facility] MARINA) [facility] - 11/14/2024 5:47 AM [facility] This exam was auto finalized to allow images to be scanned to PACS. External Provider [facility] CT ORDERABLES Final Res ult Performing Organization Address [facility] Co de Phone Number [facility] CLIA # [id number] [place] [address] * PET BONE IMG W CT SKStefan PLUNKETT (11/05/2024 2:45 PM [facility]) Anatomical Region Laterality Modality Positron Emissio n Tomography (PET) Aydin Carrasco MD PE ORDERABLES Final Result from Last 3 Months Insurance BS BLUE ACCESS/TRUE BLUE PPO MEDICAID PENDING [place] Member Subscriber Plan / Payer (Ef fective 2024-Present) Name:Jc De Leon Relation to Subscriber:Self Name:Jc De Leon Payer ID:Not on file Group ID:Not on file Type:Other [address] BLUE ACCESS/TRUE BLUE PPO RX [facility] [employer] Advance Directives For more information, please contact: [phone] Documents on File Type Date Recorded Patient Hot Dip Galvanizer Expl anation Advance Directive POA 11/21/2024 12:12 PM A dvance Directive POA * Full Code (Latest Code Status on File) Date Activated Date Inactivated Comments 11/13/2024 9:50 PM 11/26/2024 8:21 PM
--- OUTSIDE RECORDS SUMMARY | 2025-01-06 13:50 | XMS_ITS | Encounter Summary ---
Author Organization [facility] Address [address] [place] [address] Care Team Providers Care Tourist Information Assistant Name Role Phone Gia Clark PA-C Primary Care Provider Encounter Details Date Type Department Care Team (Late st Contact Info) Description 06/14/2023 Lab Requisition [facility] - Pathology Lab [address] [place] [address] Cristiano Joe MD [facility] [address] [address] Generalized enlarged lymph nodes Social History Tobacco [...] AM CDT) Case Report Flow Cytometry Case: [id number] Authorizing Provider: Cristiano Joe MD Collected: 06/14/2023 10:46 AM Ordering Location: [facility] Pathology Lab Received: 06/14/2023 04:46 PM Pathologist: Jamel Ashby MD Specimen: Lymph Node, LEFT PELVIC AREA 06/15/2023 8:52 AM [facility] PATHOLOGY LAB Final Diagnosis Lymph node, left pelvic area, flow cytometric immunophenotypic analysis: - Insufficient hematopoietic cells for analysis. - See interpretation. 06/15/2023 8:52 AM [facility] PATHOLOGY LAB Flow Cytometry Interpretation Preliminary characterization of the lymph node specimen demonstrates too few hematopoietic cells for flow cytometric analysis. A cytospin prepared from the flow cytometry specimen is reviewed for dairy quality assurance officer purposes. Flow cytometry is not performed. 06/15/2023 8:52 AM [facility] PATHOLOGY LAB Flow Cytometry Results Too few hematopoietic cells for flow cytometric analysis. 06/15/2023 8:52 AM [facility] Reason for test Generalized enlarged lymph nodes 785.6 06/15/2023 8:52 AM [facility] Client Specimen ID # [id number] 06/15/2023 8:52 AM [facility] PATHOLOGY LAB Pathologist Location at [facility] 06/15/2023 8:52 AM [facility] Disclaimer Test performed at [facility], [address] [place] [address], [address]. *The established laboratory minimum viability is 70%. [...] high complexity clinical testing. 06/15/2023 8:52 AM [facility] PATHOLOGY LAB Embedded Images 8:52 AM [facility] PATHOLOGY LAB Pathology/Cytolo gy ENTIRE LYMPH NODE / Unknown 06/14/2023 10:46 AM CDT 06/14/2023 4:46 PM CDT Cristiano Joe MD LAB - PATHOLOGY/CYTO LOGY ORDERABLES [facility] PATHOLOGY LAB [address] [facility]. [address] [phone] documented in this encounter Visit Diagnoses Diagnosis Generalized enlarged lymph nodes Enlargement of lymph nodes documented in this encounter Care Teams Tourist Information Assistant Relationship Specialty Start Date End Date Gia Clark PA-C [address] [phone] PCP - General 05/24/22 documented as of this encounter
--- OUTSIDE RECORDS SUMMARY | 2025-01-06 13:50 | XMS_ITS | Clinical Summary ---
Author Organization [facility] [employer] Address [address] [facility] [place] [address] Care Team Providers Care Cigarette Seller Name Role Phone Gia Clark PA-C Primary Care Provider [phone] [facility] [employer],non-owned Affiliates and Associated Physician Practices is amultiple site organization consisting of ambulatory clinics and hospital sitesin [place], [place], [place] and [place]. This disclosure is being madepursuant to the Care Everywhere program and may not contain all information available regarding this patient. Last updated 18.[facility] [employer] Social History Tobacco Use Types Packs/Day Years [...] FLEX SIG - COLON CA SCREENING 1960 HIV SCREENING 1975 HEPATITIS C SCREENING 10/27/1978 DTAP/TDAP/TD VACCINES (1 - Tdap) 1979 PNEUMOCOCCAL VACCINE 50+ (1 of 2 - PCV) 1979 HEPATITIS B VACCINE (1 of 3 - Risk Dialysis 4-dose series) 1980 ZOSTER VACCINE (1 of 2) 2010 COVID-19 VACCINE (2023-2 5 season) 2024 INFLUENZA VACCINE (#1) 2024 DEPRESSION SCREENING 10/16/2024 LIPID TESTING 11/21/2029 11/21/2024, 11/16/2024 Respiratory Syncytial Virus (RSV) Vaccine Pt: or over 60 yrs (1 - 1-dose 75+ series) 2035 HIB VACCINE Aged Out No longer eligi ble based on patient's age to complete this topic HPV VACCINE Aged Out No longer eligi ble based on patient's age to complete this topic MENINGOCOCCAL (Group B) VACCINE SHARED DECISION-MAKING Aged Out No longer eligible based on patient's age to complete this topic MENINGOCOCCAL GROUPS A/C/Y/W VACCINE Aged Out No longer eligible b ased on patient's age to complete this topic PNEUMOCOCCAL VACCINE Aged Out No long er eligible based on patient's age to complete this topic Care Teams Cigarette Seller Relationship Specialty Start Date End Date Gia Clark PA-C [address] [place] [phone] PCP - General 05/24/22
--- OUTSIDE RECORDS SUMMARY | 2025-01-06 13:50 | XMS_ITS | Clinical Summary ---
Author Organization [facility] Address [address] [place] [address] Phone Care Team Providers Care Lang Path Therapist Name Role Phone Gia Clark Primary Care Provider [phone] Allergies No known active allergies Medications Medication [...] Vaccine (#1) 2024 08/10/2021, 2019 Care Teams Lang Path Therapist Relationship Specialty Start Date End Date Gia Clark PA [address] [phone] PCP - General 01/03/22
--- OUTSIDE RECORDS SUMMARY | 2025-01-06 13:51 | XMS_ITS ---
[facility] Address [address] [place] [address] Care Team Providers Care Metalizing Machine Operator Automatic Name Role Phone Unavailable Primary Care Provider [...]
[2025-01-06 14:00] LABS: Prothrombin Time 13.5 Seconds (11.1-14.7)
== END 2025-01-06 11:53 | disposition home or self-care (01) ==
LOC: ANHLAB 11:53
PROVIDERS: PCP Physician Assistant; Visit Provider Radiology Diagnostic Radiology
DX: C64.9 Malignant neoplasm of unspecified kidney, except renal pelvis (principal)
CPT/HCPCS: 36415; 85049; 85610

== ENCOUNTER 2025-01-07 10:33 | Outpatient (CLI) | payer BC, SELFPAY ==
[2024-12-31 14:15] VITALS: BMI 27.1
--- NOTE | 2024-12-31 14:17 | PC.NURSE ---
Pre Radiology instructions Report to the outpatient [facility] on date _899____ at time _1100 for procedure Time: ____ YOU MAY BE MONITORED AT HOSPITAL FOR UP TO 4 HOURS AFTER YOUR PROCEDURE. A visitor will be allowed to accompany the patient into the hospital. You and your visitor will be asked to self-screen and do not enter if you have any COVID symptoms. A mask is OPTIONAL within the hospital. Patients are to have no food or drink 6 hours prior to procedure time Driving will be restricted after the procedure, you must have a person to drive you home. Labs will be drawn in preop area and once reviewed, you will be taken to radiology area for procedure. When the procedure is completed, you will be taken to outpatient where you will be monitored for several hours. You may have one visitor in this area. Labs to be drawn on 01/06/25 at the draw station per Dr Mcdonald Other than holding anti-coagulants, patient may take other medication(s) as scheduled. Prior to your appointment date patients are instructed to hold anti-coagulants after discussing with ordering provider to stop. If unable to discontinue anti-coagulants please notify radiologist. ? No aspirin or warfarin (Coumadin) for 7 days prior to the procedure. ? No clopidogrel (Plavix), ticagrelor (Brilinta), prasugrel (Effient) or dabigatran (Pradaxa) for 5 days prior to the procedure. ? No rivaroxaban (Xarelto), apixaban (Eliquis), dipyridamole (Aggrenox or Persantine) or cilostazol (Pletal) for 2 days prior to the procedure. Medications to discontinue per physician: _Eliquis Date to take last dose: _2 days prior Please leave all valuables, including medications, at home the day of procedure. The hospital will not accept responsibility for valuables. Wear comfortable, loose fitting clothing.? Follow any additional instructions given to you from ordering provider. Telephone instructions given to _Todd___and asked if any additional questions and then verbalized understanding. Patient advised to call scheduling provider office or registration scheduling [phone] if any additional questions.
[2025-01-07] VITALS (10 sets, daily range): BP systolic 131–170; BP diastolic 72–98; PULSE 72–112; RESP 20–22; O2SAT 100
--- NOTE | ~2025-01-07 | CT_ITS ---
EXAMINATION: CT biopsy abdomen percutaneous DATE: 01/07/2025 12:37 INDICATION: Left adrenal mass. TECHNIQUE: The procedure including the risks, benefits, and alternatives was discussed with the patie nt. Risks discussed included bleeding and infection. The patient verbalized understanding of the risk s and agreed to proceed. The skin overlying the left adrenal gland was prepped and draped in usual s terile fashion. Anesthetic was administered with 1% lidocaine subcutaneously. A 19 gauge outer need le was advanced under CT guidance to the left adrenal mass. An 20 gauge core biopsy needle was then u sed to obtain 3 core biopsy specimens. The mA was adjusted according to patient size. Iterative recon struction technique was employed. The dose-length product was 409.23 mGy-cm. The needle was removed a nd the entry site was cleaned and dressed. There were no immediate complications. FINDINGS: CT images demonstrate the outer needle tip adjacent to a 3.2 cm mass in the left adrenal gl and. There is a 5.6 cm fusiform aneurysm of infrarenal aorta. IMPRESSION: 1. CT-guided core needle biopsy of a 3.2 cm mass in the left adrenal gland. 2. 5.6 cm fusiform aneurysm of infrarenal aorta. Surgical consultation is recommended. Reviewed, dictated and finalized at location A. IMPRESSION: 1. CT-guided core needle biopsy of a 3.2 cm mass in the left adrenal gland. 2. 5.6 cm fusiform aneurysm of infrarenal aorta. Surgical consultation is recom mended.
--- OUTSIDE RECORDS SUMMARY | 2025-01-07 12:31 | XMS_ITS | Continuity of Care Document ---
Author Organization [facility] Address [address] [place] [address] Exec utive [facility] [address] [place] [address] Phone Care Team Providers Care Mixing Plant Dumper Name Role Phone Marcos OD, Sebas Unavailable Unavailable Advance Directives Directive Yes / No Effective Date File Name No Information Encounters Encounter Description Practice Location Reason(s) For Visit Diagnoses Date Provider Providers Copied on Encounter [facility], [address] [place] [address] [address], [place], [place], [id number], [place] tel:[phone] [facility] No Information Aug-0 4-200 5 Marcos OD Sebas. [address] , [address], [place], [address], [place]. tel:[phone] Family History Family Member Type Diagnosis Age At Onset No Information Payers Payer name Insurance type Covered libertarian ID Authoriza tijean(s) [facility] CI [id number] Social History Type Description Quantity Date Captured [...]
--- OUTSIDE RECORDS SUMMARY | 2025-01-07 12:31 | XMS_ITS | Referral Summary ---
Author Organization [facility] [address] Address [address] [place] [address] Care Team Providers Care Supervisor Drying And Winding Name Role Phone Gia Clark Primary Care Provider [phone] Harry Loredo MD Unavailable [phone] Rachell Mcnulty MD Unavailable [phone] Beata Feldman RN Unavailable [phone] Encounters Date Type Department Care Team Description 11/27/2024 Telephone [facility] [address] [facility] [address] [place] [address] Sarah Gannon 11/26/2024 Telephone [facility] [address] [facility] [address] [place] [address] Unknown, Notinfile from Last 3 Months Allergies [...] (09/02/2022): Added automatically from request for surgery [id number] Hypertension 02/14/2022 Renal mass 02/14/2022 Immunizations Immunization [...] Plan of Treatment Not on file Insurance [facility] Icera PPO [facility] [address] [id number] Care Teams Supervisor Drying And Winding Relationship Specialty Start Date End Date Gia Clark PA [address] [place] [address] PCP - General Physician Loom Control Chain Builder 09/15/22 Harry Loredo MD [address] [facility] [address] [place] [address] Consulting Physician Cardiovascular Disease 03/18/24 Rachell Mcnulty MD [address] [facility] [address] [place] [address] Referring Physician Nephrology 06/05/24 Beata Feldman, RN [address] [place] [address] Custom Car Builder 06/05/24
--- OUTSIDE RECORDS SUMMARY | 2025-01-07 12:31 | XMS_ITS | Clinical Summary ---
Author Organization [facility] Address [address] [address] Phone Care Team Providers Care Public Health Specialist Name Role Phone Unavailable Primary Care Provider [...] 01/03/2025 1:00 PM CDT Home Care Visit [facility] [address] [place] [address] Leela Rao RN SN - OASIS DISCHARGE 12/26/2024 12:30 PM CDT [facility] [address] [place] [address] Leela Rao, RN SN - WOUND VISIT 12/23/2024 1:30 PM CDT Home Care Visit [address] [address] Sidra Noble LPN SN - WOUND VISIT 12/19/2024 5:00 PM [facility] Home Care Visit [address] [address] Leela Rao, RN SN - WOUND VISIT 12/17/2024 11:30 AM [facility] Home Care Visit [address] [address] Cintia Chen, PT PT - DISCIPLINE DISCHARGE 12/16/2024 2:00 PM [facility] Home Care Visit [address] [address] Loreto Green, CONTROL SYSTEMS DEVELOPER PT - HOME VISIT 12/16/2024 2:00 PM [facility] Home Care Visit [address] [address] Leela Rao, RN SN - WOUND VISIT 12/16/2024 Home Care Visit [address] [address] Leela Rao, RN TELEPHONE ENCOUNTER 12/12/2024 11:30 AM [facility] Home Care Visit [address] [address] Loreto Green, CONTROL SYSTEMS DEVELOPER PT - HOME VISIT 12/12/2024 Home Care Visit [address] [address] Kirstin Santana OT OT - DISCHARGE SUMMARY 12/11/2024 2:30 PM [facility] Home Care Visit [address] [address] Leela Rao, RN SN - WOUND VISIT 12/10/2024 2:00 PM [facility] Home Care Visit [address] [address] Xiomara Jiang, FIELD ACCOUNT DIRECTOR OT - DISCIPLINE DISCHARGE 12/10/2024 10:00 AM [facility] Home Care Visit [address] [address] Loreto Green, CONTROL SYSTEMS DEVELOPER PT - HOME VISIT 12/10/2024 Home Care Visit [address] [address] Xiomara Jiang, RENETTA CASE COMMUNICATION 12/09/2024 11:30 AM [facility] Home Care Visit [address] [address] Sidra Noble LPN SN - WOUND VISIT 12/06/2024 1:30 PM H[facility] C[facility]TER Home Care Visit [address] [address] Leela Rao, RN SN - WOUND VISIT 12/05/2024 12:30 PM [facility] Home Care Visit [address] [address] Loreto Green, CONTROL SYSTEMS DEVELOPER PT - HOME VISIT 12/05/2024 11:00 AM [facility] Home Care Visit [address] [address] Xiomara Jiang, FIELD ACCOUNT DIRECTOR OT - HOME VISIT 12/05/2024 Home Care Visit [address] [address] Xiomara Jiang, RENETTA CASE COMMUNICATION 12/03/2024 12:00 PM [facility] Home Care Visit [address] [address] Loreto Green, CONTROL SYSTEMS DEVELOPER PT - HOME VISIT 12/03/2024 9:30 AM [facility] C[facility]TER Home Care Visit [address] [address] Kirstin Santana OT OT - HOME VISIT 12/03/2024 Home Care Visit [address] [address] Leela Rao, RN CARE CONFERENCE 12/02/2024 3:30 PM [facility] Home Care Visit [address] [address] Leela Rao, RN SN - WOUND VISIT 11/29/2024 2:00 PM [facility] Home Care Visit [address] [address] Leela Rao, RN SN - WOUND VISIT 11/29/2024 9:15 AM [facility] Home Care Visit [address] [address] Kirstin Santana OT OT - INITIAL EVALUATION 11/28/2024 3:00 PM [facility] Home Care Visit [address] [address] Cintia Chen, PT PT - INITIAL EVALUATION 11/28/2024 Home Care Visit [address] [address] Cintia Chen, PT TELEPHONE ENCOUNTER 11/28/2024 Home Care Visit [address] [address] Damaris An, LEEROY TELEPHONE ENCOUNTER 11/27/2024 11:00 AM [facility] Home Care Visit [address] [address] Leela Rao, RN SN - OASIS START OF CARE 11/27/2024 Plan of Care Documentation [address] [address] from Last 3 Months Social History Tobacco [...] (196 lb 3.4 oz) 12/17/2024 11:30 AM HUB CUTTER Height 182.9 cm (6') 11/29/2024 9:36 AM HUB C[facility]TER Body Mass Index 26.61 11/29/2024 9:36 AM HUB C[facility]TER Plan of Treatment Health Maintenance Due Date [...] patient's age to complete this topic Insurance [facility] Advance Directives * Full Code (Latest Code Status on File) Date Activated Date Inactivated Comments 11/27/2024 4:04 PM
--- OUTSIDE RECORDS SUMMARY | 2025-01-07 12:31 | XMS_ITS | Encounter Summary ---
Author Organization [facility] Address [address] [place] [address] Care Team Providers Care Director Informatics Name Role Phone Unavailable Primary Care Provider Unavailabl e Encounter Details Date Type Department Care Team ( Contact Info) Description 06/02/2023 Telephone [facility] Oncology and Hematology [address] [place] [address] Aydin Carrasco MD [facility] [employer] [address] [place] [address] Social History Tobacco Use Types Packs/Day [...] 01/20/2025 4:00 PM CDT Telephone Check Up [facility] [address] [place] [address] Aydin Carrasco MD [facility] [employer] [address] [place] [address] 01/22/2025 10:00 AM CDT Appointment [facility] Hyperbaric and Wound Care [address] [place] [phone] Jesus Luciano, DPM [address] [address] [place], [place] [id number] 04/14/2025 10:15 AM CDT Appointment [facility] Heart and Vascular Testing [facility] [address] [facility] [address] [place] [address] Shanika Sebastian FNP [address] [facility] [address] [place] [address] 04/14/2025 11:30 AM CDT Office Visit [facility] Heart and Vascular Surgery [address] [facility] 101 [address] [facility] [address] [place] [address] [place] [address] [facility] [address] [place] [address] documented as of this encounter Visit Diagnoses Not on filedocumented in this encounter
--- OUTSIDE RECORDS SUMMARY | 2025-01-07 12:31 | XMS_ITS | Clinical Summary ---
Author Organization [facility] Address [facility] [place] [address] Care Team Providers Care Cst Name Role Phone Gia Clark PA-C Primary Care Provider [phone] Allergies No known active allergies Medications sodium [...] this topic Medical Devices Implanted Type Area Train Engineer Device Identifier Shelf Expiration Date Model / Serial / Lot Dirk Clareon Iol Implanted:Qty: 1 on 06/13/2022 by Jung Rosales MD at [facility] Left: Eye DIRK - SURGICAL DIV 02/27/2025 [id number] / [id number] / [place] [address] [facility] Care Teams Cst Relationship Specialty Start Date End Date Gia Clark PA-C PCP - General PHYSICIAN SAFE AND VAULT MECHANIC 06/13/22
--- OUTSIDE RECORDS SUMMARY | 2025-01-07 12:31 | XMS_ITS | Clinical Summary ---
Author Organization [facility] [address] Address [address] [place] [address] Care Team Providers Care Sample Card Maker Name Role Phone Gia Clark Primary Care Provider [phone] Harry Loredo MD Unavailable Rachell Mcnulty MD Unavailable [phone] Beata Feldman RN Unavailable [phone] Allergies No known active allergies Medications [...] (09/02/2022): Added automatically from request for surgery [id number] Hypertension 02/14/2022 Renal mass 02/14/2022 Encounters Date Type Department Care Team Description 11/27/2024 Telephone [facility] Home Care Services [address] [facility] [address] [place] [address] Sarah Gannon 11/26/2024 Telephone [facility] Care Services [address] [facility] [address] [place] [address] Unknown, Notinfile from Last 3 Months Immunizations [...] Td or Tdap) 07/15/2032 07/15/2022 Insurance [facility] HEALTHCARE O [employer] OR BLUE ACCESS OR Care Teams Sample Card Maker Relationship Specialty Start Date End Date Gia Clark PA [address] [place] [address] PCP - General Physician Buck Swamper 09/15/22 Harry Loredo MD [address] [facility] [address] [place] [address] Consulting Physician Cardiovascular Disease 03/18/24 Rachell Mcnulty MD [address] [facility] [address] [place] [address] Referring Physician Nephrology 06/05/24 Beata Feldman, RN [address] [place] [address] Blood Bank Coordinator 06/05/24
--- OUTSIDE RECORDS SUMMARY | 2025-01-07 12:32 | XMS_ITS ---
Author Organization [facility] Address [address] [place] [address] Care Team Providers Care Fitness Services Manager Name Role Phone Unavailable Primary Care Provider [...]
--- OUTSIDE RECORDS SUMMARY | 2025-01-07 12:32 | XMS_ITS | Encounter Summary ---
Author Organization [facility] Address [address] [place] [address] Care Team Providers Care Health Technician Hearing Name Role Phone Gia Clark PA-C Primary Care Provider [phone] Encounter Details Date Type Department Care Team (Late st Contact Info) Description 06/14/2023 Lab Requisition [facility] - Pathology Lab [address] [place] [address] Cristiano Joe MD [facility] [address] [address] Generalized enlarged lymph nodes Social History Tobacco [...] AM CDT) Case Report Flow Cytometry Case: [id number] Authorizing Provider: Cristiano Joe MD Collected: 06/14/2023 10:46 AM Ordering Location: [facility] Pathology Lab Received: 06/14/2023 04:46 PM Pathologist: Jamel Ashby MD Specimen: Lymph Node, LEFT PELVIC AREA 06/15/2023 8:52 AM [facility] PATHOLOGY LAB Final Diagnosis Lymph node, left pelvic area, flow cytometric immunophenotypic analysis: - Insufficient hematopoietic cells for analysis. - See interpretation. 06/15/2023 8:52 AM [facility] PATHOLOGY LAB Flow Cytometry Interpretation Preliminary characterization of the lymph node specimen demonstrates too few hematopoietic cells for flow cytometric analysis. A cytospin prepared from the flow cytometry specimen is reviewed for supplier quality purposes. Flow cytometry is not performed. 06/15/2023 8:52 AM [facility] PATHOLOGY LAB Flow Cytometry Results Too few hematopoietic cells for flow cytometric analysis. 06/15/2023 8:52 AM [facility] Reason for test Generalized enlarged lymph nodes 785.6 06/15/2023 8:52 AM [facility] Client Specimen ID # [id number] 06/15/2023 8:52 AM [facility] PATHOLOGY LAB Pathologist Location at [facility] 06/15/2023 8:52 AM [facility] Disclaimer Test performed at [facility], [address] [place] [address], [address]. *The established laboratory minimum viability is 70%. [...] high complexity clinical testing. 06/15/2023 8:52 AM [facility] PATHOLOGY LAB Embedded Images 8:52 AM [facility] PATHOLOGY LAB Pathology/Cytolo gy ENTIRE LYMPH NODE / Unknown 06/14/2023 10:46 AM CDT 06/14/2023 4:46 PM CDT Cristiano Joe MD LAB - PATHOLOGY/CYTO LOGY ORDERABLES [facility] PATHOLOGY LAB [address] [facility]. [address] [phone] documented in this encounter Visit Diagnoses Diagnosis Generalized enlarged lymph nodes Enlargement of lymph nodes documented in this encounter Care Teams Health Technician Hearing Relationship Specialty Start Date End Date Gia Clark PA-C [address] [phone] PCP - General 05/24/22 documented as of this encounter
--- OUTSIDE RECORDS SUMMARY | 2025-01-07 12:32 | XMS_ITS | Clinical Summary ---
Author Organization [facility] Rasheed Rivas Address [address] [place] [address] Care Team Providers Care Assembly Adjuster Name Role Phone Unavailable Primary Care Provider [...] daily. 60 Tablet 1 11/26/2024 5:26 PM TONE CABINET ASSEMBLER Active atorvastatin (LIPITOR) 40 mg tablet Take 1 Tablet (40 mg) by mouth daily at bedtime. 30 Tablet 2 11/26/2024 5:26 PM TONE CABINET ASSEMBLER Active sennosides-docus ate sodium (SENNA-S) 8.6-50 mg tablet Take 1 Tablet by mouth 2 times daily. Active fluticasone furoate-vilanter oL (BREO ELLIPTA) 200-25 mcg/dose Disk with Device Starting 11/26/24, Take 1 Puff by inhalation daily. 60 Each 2 11/26/2024 5:26 PM TONE CABINET ASSEMBLER Active amoxicillin-clav ulanate (AUGMENTIN) 875-125 mg tablet [...] Type Department Care Team Description 01/03/2025 Abstract [facility] Heart and Vascular Surgery [address] [facility] 101 [address] [facility] 101 [place] [address] Shanika Sebastian FNP 01/02/2025 3:30 PM CDT Office Visit [facility] Heart and Vascular Surgery [address] [facility] 101 [address] [facility] 101 [place] [address] Romulo ShanikaJOHN Bustillo PVD (peripheral vascular disease) (Primary Dx) 01/02/2025 1:31 PM CDT - 01/02/2025 11:59 PM CDT Hospital Encounter [facility] Heart and Vascular Testing [facility] [address] [facility] [address] [place] [address] Patricia Quezada NP Discharge Disposition: Home or Self Care 01/01/2025 11:00 AM CDT - 01/01/2025 11:59 PM CDT Hospital Encounter [facility] Hyperbaric and Wound Care [facility] [address] [place] [address] Jesus Luciano, DPM Discharge Disposition: Home or Self Care 01/01/2025 External Device Data STL ABSTRACTION Provider, Abstract 12/21/2024 External Device Data STL ABSTRACTION Provider, Abstract 12/20/2024 External Device Data STL ABSTRACTION Provider, Abstract 12/18/2024 10:37 AM TONE CABINET ASSEMBLER - 12/18/2024 11:59 PM TONE CABINET ASSEMBLER Hospital Encounter [facility] Hyperbaric and Wound Care [facility] [address] [place] [address] Jesus Luciano, DPM Discharge Disposition: Home or Self Care 12/18/2024 External Device Data STL ABSTRACTION Provider, Abstract 12/17/2024 External Device Data STL ABSTRACTION Provider, Abstract 12/16/2024 9:15 AM TONE CABINET ASSEMBLER Office Visit [facility] Oncology and Hematology - [address] [place] [address] Aydin Carrasco MD Renal cell carcinoma of right kidney (CMS/HCC) (Primary Dx) 12/11/2024 Abstract [facility] Oncology and Hematology [address] [place] [address] Aydin Carrasco MD 12/11/2024 Orders Only [facility] Oncology and Hematology [address] [place] [address] Aydin Carrasco MD 12/06/2024 Telephone [facility] Heart and Vascular Surgery [address] [facility] [phone] [address] Franca Dykes MD Question 12/03/2024 External Device Data STL ABSTRACTION Provider, Abstract 11/28/2024 Abstract [facility] Heart and Vascular Surgery [address] [place] [address] [facility] [address] [address] Franca Dykes MD 11/28/2024 Telephone [facility] Heart and Vascular Surgery [address] [place] [address] [address] Franca Dykes MD short term disability forms 11/27/2024 Telephone [facility] Heart and Vascular Surgery [address] [facility] [address] [address] Patricia Quezada NP Needs Appointment 11/27/2024 Abstract [facility] Heart and Vascular Surgery [address] [place] [address] [address] Franca Dykes MD 11/23/2024 11:37 AM TONE CABINET ASSEMBLER Anesthesia Event [facility] Operating Room [address] [place] [address] Reinier Dale MD Tao, Yongping, MD 11/23/2024 8:42 AM TONE CABINET ASSEMBLER - 11/23/2024 9:54 AM TONE CABINET ASSEMBLER Surgery [facility] Operating Room [address] [place] [address] Jesus Luciano DPM RIGHT GREAT TOE AMPUTATION 11/23/2024 Travel 11/20/2024 7:30 AM TONE CABINET ASSEMBLER - 11/20/2024 5:21 PM TONE CABINET ASSEMBLER Surgery [facility] Vascular Operating Room [address] [place] [address] Franca Dykes MD COMMON, SUPERFICIAL, AND PROFUNDA RIGHT FEMORAL ENDARTERECTOMY, RIGHT LOWER EXTREMITY ANGIOGRAM, IVUS AND SHOCKWAVE TO RIGHT SFA AND POPLITEAL, AND DRUG COATED BALLOON ANGIOPLASTY TO RIGHT SFA AND POPLITEAL 11/20/2024 7:30 AM TONE CABINET ASSEMBLER Anesthesia Event [facility] Vascular Operating Room [address] [place] [address] Kianna Lu MD Grahek-Lindsey, Lisa M PAAlexanderC 11/19/2024 External Device Data STL ABSTRACTION Provider, Abstract 11/19/2024 External Device Data STL ABSTRACTION Provider, Abstract 11/19/2024 External Device Data STL ABSTRACTION Provider, Abstract 11/13/2024 6:57 PM TONE CABINET ASSEMBLER - 11/26/2024 6:16 PM TONE CABINET ASSEMBLER Hospital Encounter [facility] General Surgery [address] [place] [address] Chong Garcia MD Idemudia, Osarenren, MD Bagam, Vaghdevi, MD Miller, Brian P, MD Suarez Solar, Pedro, MD Necrotic toes ([facility]) Discharge Disposition: Home or Self Care 11/13/2024 Travel 11/07/2024 External Device Data STL ABSTRACTION Provider, Abstract 11/05/2024 Orders Only [facility] Oncology and Hematology - [address] [place] [address] Aydin Carrasco MD 10/25/2024 Telephone [facility] Oncology and Hematology - [place] [place] [address] Aydin Carrasco MD PET SCAN [...] CDT Respiratory Rate 15 12/16/2024 8:50 AM TONE CABINET ASSEMBLER Oxygen Saturation 99% 01/02/2025 3:08 PM CDT Inhaled Oxygen Concentration - - Weight 92.1 kg (203 lb) 01/02/2025 3:08 PM CDT Height 182.9 cm (6') 01/02/2025 3:08 PM CDT Body Mass Index 27.53 01/02/2025 3:08 PM CDT Plan of Treatment Upcoming Encounters Date Type Department Care Team (Late st Contact Info) Description 01/20/2025 4:00 PM CDT Telephone Check Up [facility] Oncology and Hematology - [place] [address] [facility] [address] [place] [address] Aydin Carrasco MD [address] [facility] [address] [place] [address] 01/22/2025 10:00 AM CDT Appointment [facility] Hyperbaric and Wound Care [facility] [address] [place] [address] Jesus Luciano, DPM [address] [place] [address] 04/14/2025 10:15 AM CDT Appointment [facility] Heart and Vascular Testing [facility] [address] [facility] [address] [place] [address] Shanika Sebastian FNP [address] [facility] [address] [place] [address] 04/14/2025 11:30 AM CDT Office Visit [facility] Heart and Vascular Surgery [address] [facility] 101 [address] [facility] 101 [place] [address] [place] [address] [facility] 101 [place] [address] Health Maintenance Due Date Last [...] 07/15/2022, 07/05/2022 Medical Devices Implanted Type Area Practice Office Associate Device Identifier Shelf Expiration Date Model / Serial / Lot Patch Vascu-Guard 1.0x10cm [id number] - [id number] Implanted:Qty: 1 on 11/20/2024 by Franca Dykes MD at [facility] Right: Groin [employer] 09/03/2025 [id number] / / [id number] Patch Vascu-Guard 0.8x8cm Cardio Vg-[id number] - [id number] Implanted:Qty: 1 on 11/20/2024 by Franca Dykes MD at [facility] Right: Groin [employer] 05/20/2026 [id number] / / [id number] Hemostatic Surgifoam Sz12-7 1971 - [id number] Implanted:Qty: 1 on 11/20/2024 by Franca Dykes MD at [facility] Hemostatic Right: Groin [employer] 03/11/20281971 / / [id number] Hemostatic Surgiflo 8ml W/ Thrombin 299 - [id number] Implanted:Qty: 1 on 11/20/2024 by Franca Dykes MD at [facility] Hemostatic [employer] 10/15/2025 299 / / [id number] Procedures Procedure Name Priority Date/Time Associated Diagnosis Comments US ANKLE PRESSURE INDEX Routine 01/03/20 3:13 PM CDT PVD (peripheral vascular disease) ANAEROBIC/AEROBIC CULTURE W GRAM STAIN Routine 12/18/2024 11:34 AM TONE CABINET ASSEMBLER 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, unspecified laterality (CMS/HCC) BASIC METABOLIC PANEL Routine 12/11/2024 4:32 PM TONE CABINET ASSEMBLER CBC WITH AUTODIFFERENTIAL Routine 12/11/2024 11:49 AM TONE CABINET ASSEMBLER VANCOMYCIN LEVEL RANDOM Routine 11/26/19 4:39 AM TONE CABINET ASSEMBLER RENAL FUNCTION PANEL Routine 11/26/2024 4:39 AM TONE CABINET ASSEMBLER PTT Timed Study 11/25/2024 7:42 PM TONE CABINET ASSEMBLER TELEMETRY REPORT 11/25/2024 3:26 PM TONE CABINET ASSEMBLER TELEMETRY REPORT 11/25/2024 3:06 PM TONE CABINET ASSEMBLER TELEMETRY REPORT 11/25/2024 2:57 PM TONE CABINET ASSEMBLER TELEMETRY REPORT 11/25/2024 2:45 PM TONE CABINET ASSEMBLER PTT Routine 11/25/2024 12:14 PM TONE CABINET ASSEMBLER TELEMETRY REPORT 11/25/2024 10:16 AM TONE CABINET ASSEMBLER TELEMETRY REPORT 11/25/2024 9:59 AM TONE CABINET ASSEMBLER TELEMETRY REPORT 11/25/2024 8:03 AM TONE CABINET ASSEMBLER PTT Routine 11/25/2024 3:11 AM TONE CABINET ASSEMBLER RENAL FUNCTION PANEL Routine 11/25/2024 3:11 AM TONE CABINET ASSEMBLER PTT Timed Study 11/24/2024 11:08 PM TONE CABINET ASSEMBLER PTT Timed Study 11/24/2024 3:52 PM TONE CABINET ASSEMBLER PTT Routine 11/24/2024 7:29 AM TONE CABINET ASSEMBLER CBC WITHOUT DIFFERENTIAL Routine 11/24/2024 2:56 AM TONE CABINET ASSEMBLER RENAL FUNCTION PANEL Routine 11/24/2024 2:56 AM TONE CABINET ASSEMBLER PTT Routine 11/23/2024 7:41 PM TONE CABINET ASSEMBLER VANCOMYCIN LEVEL RANDOM Timed Study 11/23/19 2:30 PM TONE CABINET ASSEMBLER PT EVAL AND TREAT Routine 11/23/2024 1:3 0 PM TONE CABINET ASSEMBLER XR FOOT 3+ VW RIGHT Routine 11/23/2024 1 :04 PM TONE CABINET ASSEMBLER PATHOLOGY Pathology 11/23/2024 11:55 AM TONE CABINET ASSEMBLER ANAEROBIC/AEROBIC CULTURE W GRAM STAIN Routine 11/23/2024 11:55 AM TONE CABINET ASSEMBLER TOE(S) AMPUTATION 11/23/2024 8:4 2 AM TONE CABINET ASSEMBLER UNKNOWN Special Needs SAW. DR ADAN T/F HIS OTHER CASE. TRANSFUSE PACKED RED BLOOD CELLS Routine 11/23/2024 8:36 AM TONE CABINET ASSEMBLER PREPARE RED BLOOD CELLS Routine 11/23/19 6:58 AM TONE CABINET ASSEMBLER TYPE AND SCREEN Routine 11/23/2024 3:44 AM TONE CABINET ASSEMBLER CBC WITH DIFFERENTIAL Routine 11/23/2024 3:44 AM TONE CABINET ASSEMBLER PTT Routine 11/23/2024 3:44 AM TONE CABINET ASSEMBLER RENAL FUNCTION PANEL Routine 11/23/2024 3:44 AM TONE CABINET ASSEMBLER PTT Timed Study 11/22/2024 10:33 PM TONE CABINET ASSEMBLER POTASSIUM LEVEL Stat 11/22/2024 4:05 PM TONE CABINET ASSEMBLER PTT Timed Study 11/22/2024 4:05 PM TONE CABINET ASSEMBLER HEMODIALYSIS Routine 11/22/2024 12:01 PM TONE CABINET ASSEMBLER VANCOMYCIN LEVEL RANDOM Stat 11/22/19 6:10 AM TONE CABINET ASSEMBLER CBC WITH DIFFERENTIAL Routine 11/22/2024 6:10 AM TONE CABINET ASSEMBLER RENAL FUNCTION PANEL Routine 11/22/2024 6:10 AM TONE CABINET ASSEMBLER PTT Timed Study 11/22/2024 6:10 AM TONE CABINET ASSEMBLER PTT Timed Study 11/21/2024 8:09 PM TONE CABINET ASSEMBLER PTT Timed Study 11/21/2024 9:31 AM TONE CABINET ASSEMBLER BASIC METABOLIC PANEL Stat 11/21/2024 6:01 AM TONE CABINET ASSEMBLER MAGNESIUM LEVEL Stat 11/21/2024 6:01 AM TONE CABINET ASSEMBLER POC GLUCOSE Routine 11/21/2024 5:39 AM TONE CABINET ASSEMBLER EKG 12-LEAD Stat 11/21/2024 5:29 AM TONE CABINET ASSEMBLER CBC WITH DIFFERENTIAL Routine 11/21/2024 2:25 AM TONE CABINET ASSEMBLER PTT Timed Study 11/21/2024 2:24 AM TONE CABINET ASSEMBLER VANCOMYCIN LEVEL RANDOM Timed Study 11/21/19 2:24 AM TONE CABINET ASSEMBLER RENAL FUNCTION PANEL Routine 11/21/2024 2:24 AM TONE CABINET ASSEMBLER VERIFICATION BLOOD GROUP Stat 11/20/2024 8:52 PM TONE CABINET ASSEMBLER HEMOGLOBIN AND HEMATOCRIT Stat 11/20/2024 3:13 PM TONE CABINET ASSEMBLER POC ACTIVATED CLOTTING TIME Routine 11/20/2024 1:23 PM TONE CABINET ASSEMBLER XR OR Routine 11/20/2024 1:12 PM TONE CABINET ASSEMBLER TRANSFUSE PACKED RED BLOOD CELLS Stat 11/20/2024 12:57 PM TONE CABINET ASSEMBLER POC ACTIVATED CLOTTING TIME Routine 11/20/2024 12:52 PM TONE CABINET ASSEMBLER PREPARE RED BLOOD CELLS Stat 11/20/19 12:18 PM TONE CABINET ASSEMBLER PREPARE RED BLOOD CELLS Routine 11/20/19 25 12:18 PM TONE CABINET ASSEMBLER POC ACTIVATED CLOTTING TIME Routine 11/20/2024 12:18 PM TONE CABINET ASSEMBLER POC LACTIC ACID Routine 11/20/2024 12:10 PM TONE CABINET ASSEMBLER OXIMETRY Routine 11/20/2024 12:10 PM TONE CABINET ASSEMBLER METHEMOGLOBIN QUANTITATIVE Routine 11/20/2024 12:10 PM TONE CABINET ASSEMBLER CARBOXYHEMOGLOBIN Routine 11/20/2024 12:10 PM TONE CABINET ASSEMBLER BLOOD GAS,(INCL. H+H, LYTES, GLUC) Routine 11/20/2024 12:10 PM TONE CABINET ASSEMBLER POC ACTIVATED CLOTTING TIME Routine 11/20/2024 11:40 AM TONE CABINET ASSEMBLER POC ACTIVATED CLOTTING TIME Routine 11/20/2024 11:33 AM TONE CABINET ASSEMBLER POC ACTIVATED CLOTTING TIME Routine 11/20/2024 10:57 AM TONE CABINET ASSEMBLER POC ACTIVATED CLOTTING TIME Routine 11/20/2024 10:53 AM TONE CABINET ASSEMBLER POC ACTIVATED CLOTTING TIME Routine 11/20/2024 10:42 AM TONE CABINET ASSEMBLER POC ACTIVATED CLOTTING TIME Routine 11/20/2024 10:10 AM TONE CABINET ASSEMBLER POC ACTIVATED CLOTTING TIME Routine 11/20/2024 9:56 AM TONE CABINET ASSEMBLER POC ACTIVATED CLOTTING TIME Routine 11/20/2024 9:25 AM TONE CABINET ASSEMBLER POC LACTIC ACID Routine 11/20/2024 8:50 AM TONE CABINET ASSEMBLER OXIMETRY Routine 11/20/2024 8:50 AM TONE CABINET ASSEMBLER METHEMOGLOBIN QUANTITATIVE Routine 11/20/2024 8:50 AM TONE CABINET ASSEMBLER CARBOXYHEMOGLOBIN Routine 11/20/2024 8:5 0 AM TONE CABINET ASSEMBLER BLOOD GAS,(INCL. H+H, LYTES, GLUC) Routine 11/20/2024 8:50 AM TONE CABINET ASSEMBLER MO ANES INSERT CATH, ART, PERCUT, SHORTTERM Routine 11/20/2024 8:36 AM TONE CABINET ASSEMBLER PERIPHERAL IV ADULT Routine 11/20/2024 8 :15 AM TONE CABINET ASSEMBLER MO ANES VNPNXR 3 YEARS/> PHYS/QHP SKILL Routine 11/20/2024 8:15 AM TONE CABINET ASSEMBLER MO ANES INSERT ENDOTRACHEAL AIRWAY Routine 11/20/2024 7:36 AM TONE CABINET ASSEMBLER FEMORAL ENDARTERECTOMY 7:26 AM TONE CABINET ASSEMBLER PVD Special Needs DR ADAN EV1 RM DR ADAN 7:30 START. TIME OK PER VICTOR HUGO/ CHARGE NURSE. TYPE AND SCREEN Stat 11/20/2024 3:53 AM TONE CABINET ASSEMBLER CBC WITH DIFFERENTIAL Stat 11/20/2024 3:52 AM TONE CABINET ASSEMBLER RENAL FUNCTION PANEL Stat 11/20/2024 3:52 AM TONE CABINET ASSEMBLER PTT Timed Study 11/20/2024 3:52 AM TONE CABINET ASSEMBLER TELEMETRY REPORT 11/19/2024 2:46 PM TONE CABINET ASSEMBLER TELEMETRY REPORT 11/19/2024 2:30 PM TONE CABINET ASSEMBLER CBC WITH DIFFERENTIAL Stat 11/19/2024 2:27 PM TONE CABINET ASSEMBLER BASIC METABOLIC PANEL Stat 11/19/2024 2:27 PM TONE CABINET ASSEMBLER PTT Stat 11/19/2024 2:27 PM TONE CABINET ASSEMBLER TELEMETRY REPORT 11/19/2024 2:01 PM TONE CABINET ASSEMBLER TELEMETRY REPORT 11/19/2024 1:33 PM TONE CABINET ASSEMBLER TELEMETRY REPORT 11/19/2024 11:40 AM TONE CABINET ASSEMBLER TELEMETRY REPORT 11/19/2024 11:31 AM TONE CABINET ASSEMBLER TELEMETRY REPORT 11/19/2024 10:22 AM TONE CABINET ASSEMBLER TELEMETRY REPORT 11/19/2024 9:57 AM TONE CABINET ASSEMBLER TELEMETRY REPORT 11/19/2024 9:20 AM TONE CABINET ASSEMBLER PTT Routine 11/19/2024 3:06 AM TONE CABINET ASSEMBLER CBC WITH DIFFERENTIAL Routine 11/19/2024 3:06 AM TONE CABINET ASSEMBLER RENAL FUNCTION PANEL Routine 11/19/2024 3:06 AM TONE CABINET ASSEMBLER PTT Stat 11/18/2024 7:43 PM TONE CABINET ASSEMBLER VANCOMYCIN LEVEL RANDOM Timed Study 11/18/19 12:03 PM TONE CABINET ASSEMBLER RENAL FUNCTION PANEL Routine 11/18/2024 12:03 PM TONE CABINET ASSEMBLER PTT Timed Study 11/18/2024 7:48 AM TONE CABINET ASSEMBLER EXTRA TUBE (BLUE) Routine 11/18/2024 12:41 AM TONE CABINET ASSEMBLER EXTRA TUBE Routine 11/18/2024 12:41 AM TONE CABINET ASSEMBLER PTT Timed Study 11/18/2024 12:40 AM TONE CABINET ASSEMBLER UNFRACTIONATED HEPARIN ACTIVITY Routine 11/17/2024 5:21 PM TONE CABINET ASSEMBLER PTT Routine 11/17/2024 5:21 PM TONE CABINET ASSEMBLER EKG 12-LEAD Routine 11/17/2024 12:43 PM TONE CABINET ASSEMBLER CBC WITH DIFFERENTIAL Routine 11/17/2024 10:09 AM TONE CABINET ASSEMBLER RENAL FUNCTION PANEL Routine 11/17/2024 10:09 AM TONE CABINET ASSEMBLER NM MYOCARD PERF IMAG SPECT MULT Routine 11/17/2024 9:21 AM TONE CABINET ASSEMBLER NM PHARMACOLOGICAL STRESS TEST Routine 11/17/2024 8:23 AM TONE CABINET ASSEMBLER ECHOCARDIOGRAM W/ CONTRAST AGENT Routine 11/16/2024 4:48 PM TONE CABINET ASSEMBLER LIPID PANEL Routine 11/16/2024 5:09 AM TONE CABINET ASSEMBLER UNFRACTIONATED HEPARIN ACTIVITY Timed Study 11/16/2024 5:09 AM TONE CABINET ASSEMBLER VANCOMYCIN LEVEL RANDOM Timed Study 11/16/19 25 5:09 AM TONE CABINET ASSEMBLER RENAL FUNCTION PANEL Routine 11/16/2024 5:09 AM TONE CABINET ASSEMBLER CTA ABD AORTA BI ILIOFEM W AND/OR WO Routine 11/15/2024 6:53 PM TONE CABINET ASSEMBLER CTA CHEST W AND/OR WO CONTRAST Routine 11/15/2024 6:51 PM TONE CABINET ASSEMBLER BLOOD CULTURE Routine 11/15/2024 3:23 PM TONE CABINET ASSEMBLER BLOOD CULTURE Routine 11/15/2024 3:23 PM TONE CABINET ASSEMBLER BLOOD CULTURE Routine 11/15/2024 3:17 PM TONE CABINET ASSEMBLER BLOOD CULTURE Routine 11/15/2024 3:17 PM TONE CABINET ASSEMBLER UNFRACTIONATED HEPARIN ACTIVITY Stat 11/15/2024 8:48 AM TONE CABINET ASSEMBLER HEPATITIS B SURFACE ANTIGEN Routine 11/15/2024 1:48 AM TONE CABINET ASSEMBLER UNFRACTIONATED HEPARIN ACTIVITY Stat 11/15/2024 1:48 AM TONE CABINET ASSEMBLER VANCOMYCIN LEVEL RANDOM Timed Study 11/15/19 1:48 AM TONE CABINET ASSEMBLER RENAL FUNCTION PANEL Routine 11/15/2024 1:48 AM TONE CABINET ASSEMBLER CBC WITH DIFFERENTIAL Routine 11/15/2024 1:48 AM TONE CABINET ASSEMBLER MAGNESIUM LEVEL Routine 11/15/2024 1:48 AM TONE CABINET ASSEMBLER UNFRACTIONATED HEPARIN ACTIVITY Timed Study 11/14/2024 5:09 PM TONE CABINET ASSEMBLER US ANKLE PRESSURE INDEX Routine 11/14/19 4:50 PM TONE CABINET ASSEMBLER US VENOUS DOPPLER LEG BILATERAL Routine 11/14/2024 4:48 PM TONE CABINET ASSEMBLER MRI FOOT WO CONTRAST LEFT Routine 11/14/2024 3:11 PM TONE CABINET ASSEMBLER MRI FOOT WO CONTRAST RIGHT Routine 11/14/2024 2:47 PM TONE CABINET ASSEMBLER UNFRACTIONATED HEPARIN ACTIVITY Timed Study 11/14/2024 8:52 AM TONE CABINET ASSEMBLER MAGNESIUM LEVEL Routine 11/14/2024 12:58 AM TONE CABINET ASSEMBLER COMPREHENSIVE METABOLIC PANEL Routine 11/14/2024 12:58 AM TONE CABINET ASSEMBLER CBC WITH DIFFERENTIAL Routine 11/14/2024 12:58 AM TONE CABINET ASSEMBLER HEMOGLOBIN A1C Routine 11/14/2024 12:58 AM TONE CABINET ASSEMBLER UNFRACTIONATED HEPARIN ACTIVITY Stat 11/14/2024 12:46 AM TONE CABINET ASSEMBLER PTT Stat 11/14/2024 12:46 AM TONE CABINET ASSEMBLER UNFRACTIONATED HEPARIN ACTIVITY Routine 11/14/2024 12:46 AM TONE CABINET ASSEMBLER US DOPPLER VENOUS ARM BILATERAL Routine 11/14/2024 12:20 AM TONE CABINET ASSEMBLER PT EVAL AND TREAT Routine 11/13/2024 9:5 0 PM TONE CABINET ASSEMBLER OT EVAL AND TREAT Routine 11/13/2024 9:5 0 PM TONE CABINET ASSEMBLER MRI PRIOR STUDY Routine 11/10/2024 6:35 AM TONE CABINET ASSEMBLER MRI PRIOR STUDY Routine 11/10/2024 6:30 AM TONE CABINET ASSEMBLER X-RAY PRIOR STUDY Routine 11/09/2024 8:0 0 PM TONE CABINET ASSEMBLER X-RAY PRIOR STUDY Routine 11/09/2024 7:5 5 PM TONE CABINET ASSEMBLER X-RAY PRIOR STUDY Routine 11/09/2024 4:4 5 AM TONE CABINET ASSEMBLER X-RAY PRIOR STUDY Routine 11/09/2024 4:4 0 AM TONE CABINET ASSEMBLER X-RAY PRIOR STUDY Routine 11/09/2024 3:4 5 AM TONE CABINET ASSEMBLER X-RAY PRIOR STUDY Routine 11/09/2024 3:4 0 AM TONE CABINET ASSEMBLER CT PRIOR STUDY Routine 11/09/2024 3:30 AM TONE CABINET ASSEMBLER PET BONE IMG W CT SKL BSE MID THG Routine 11/05/2024 2:45 PM TONE CABINET ASSEMBLER from Last 3 Months Results * US ANKLE PRESSURE INDEX (01/02/2025 3:13 PM CDT) Only the most recent of2 resultswithin the time period is included. Anatomical Region Laterality Modality Lower Extremity Ultrasound 01/02/2025 2:30 PM CDT Narrative 01/02/2025 4:08 PM CDT [facility]ER Arterial Physiologic Evaluation Patient: Jc De Leon Study ID: 1 Gender: M : 1960 Age: 64 Race: [facility] Height 182.9cm Study Date: 01/02/2025 Weight: 89.8kg Access. #: [id number] *Referring Physician:Patricia Montanez Amy Elizabeth *Ordering Physician:Patricia Montanez *Sql Manager:Dory Underwood Indications: PVD. History: Risk factors: Recent [...] Hg Prepared and Electronically Authenticated Mariaa Mathew [id number] Procedure Note Mariaa Mathew MD - 01/02/2025 [facility] NADER Arterial Physiologic Evaluation Patient: Jc De eLon Study ID: 1 Gender: Negro : 1960 Age: 64 Race: HUNTER Height 182.9cm Study Date: 01/02/2025 Weight: 89.8kg Access. #: [id number] *Referring Physician:Patricia Montanez AmyElizabeth *Ordering Physician:Patricia Montanez *Sql Manager:Dory Underwood Indications: PVD. History: Risk factors: Recent [...] Hg Prepared and Electronically Authenticated Mariaa Mathew [id number] Patricia Quezada STARS ANALYTICAL LEAD US ORDERABLES Final Res ult * (ABNORMAL) ANAEROBIC/AEROBIC CULTURE W GRAM STAIN (12/18/2024 11:34 AM TONE CABINET ASSEMBLER) Only the most recent of2 resultswithin the time period is included. ANAEROBIC CULTURE SEE NOTE [employer]ish[employer] Comment: CULTURE, ANAEROBIC BACTERIA W/GRAM STAIN Micro Number: [id number] Test Status: Final Specimen Source: Toe 3rd, left Specimen Quality: Adequate Gram Stain: No white blood cells seen Few Gram positive cocci in clusters Result: No anaerobes isolated. AEROBIC CULTURE SEE NOTE(A) [employer] naomi Novak Comment: CULTURE, AEROBIC BACTERIA Micro Number: [id number] Test Status: Final Specimen Source: Toe 32rd,left [...] values are not provided. Test Performed at: [place] [address] [address] [place] [phone] Haydee Atkins Lesion/Drainage Fluid (Toe 3rd, left) 12/18/2024 11:34 AM [employer] 12/19/2024 3:51 AM [employer] CAB[employer]ET [employer] Jesus Luciano DPM MICROBIOLOGY - GENERAL ORDE RABBRENDA Final Result [facility] [phone] [place] [address] Administration [place] [phone] * BASIC METABOLIC PANEL (12/11/2024 4:32 PM TONE CABINET [employer]) Only the most recent of3 resultswithin the time period is included. Blood Aydin Carrasco MD CHEMISTRY ORDERABLES Final Resu lt * CBC WITH AUTODIFFERENTIAL (12/11/2024 11:49 AM [employer]ET [employer]) Blood Aydin Carrasco MD HEMATOLOGY ORDERABLES Final Res ult * VANCOMYCIN LEVEL RANDOM (11/26/2024 4:39 AM [employer]) Only the most recent of7 resultswithin the time period is included. VANCOMYCIN, RANDOM 17.8 No Ref Range Estab ug/mL 11/26/2024 6:35 AM [employer]INET [employer] [facility] Blood Venipuncture / Unknown 11/26/2024 4:39 AM [employer] 11/26/2024 6:05 AM [employer]INET [employer] Diego Mcknight MD CHEMISTRY ORDERABLES Final Result [facility] CLIA# [id number] [place] [address] * (ABNORMAL) RENAL FUNCTION PANEL (11/26/2024 4:39 AM T[employer] CABIN[employer]) Only the most recent of12 resultswithin the time period is included. SODIUM 131(L) 136 - 145 mmol/L 11/26/2024 6:35 AM [facility] [employer] [facility] POTASSIUM 4.9 3.4 - 5.1 mmol/L 11/26/2024 6:35 AM [facility] [place] CHLORIDE 96(L) 98 - 107 mmol/L 11/26/2024 6:35 AM [facility] CO2 21(L) 22 - 29 mmol/L 11/26/2024 6:35 AM [facility] CALCIUM 10.3 8.6 - 10.4 mg/dL 11/26/2024 6:35 AM [facility] BUN 53(H) 6 - 20 mg/dL 11/26/2024 6:35 AM [facility] CREATININE 7.72(H) 0.67 - 1.17 mg/dL 11/26/2024 6:35 AM [facility] GLUCOSE 100(H) 74 - 99 mg/dL 11/26/2024 6:35 AM [facility] ALBUMIN 3.3(L) 3.5 - 5.2 g/dL 11/26/2024 6:35 AM [facility] PHOSPHORUS 4.5 2.5 - 4.5 mg/dL 11/26/2024 6:35 AM [facility] GFR 7(L) >=60 mL/min/1.7 3 sq meter 11/26/2024 6:35 AM [facility] Comment:eGFR calculated with 2020 CKD-EPI equation. Vegetarian diet, extremely high or low muscle mass, and may affect results. Cystatin C with Glomerular Filtration Rate is a suitable alternative for these patients. ANION GAP 14 8 - 16 mmol/L 11/26/2024 6:35 AM [facility] Blood Venipuncture / Unknown 11/26/2024 4:39 AM TONE CABINET ASSEMBLER 11/26/2024 6:05 AM TONE CABINET AS[employer]BLER Result [facility] Jesus Luciano DPNegro CHEMISTRY ORDERABLES Final Result Performing Organization Address [facility]/ZIP Co de Phone Number [facility] CLIA# [id number] [place] [address] * (ABNORMAL) PTT (11/25/2024 7:42 PM TONE CABINET ASSEMBLER) Only the most recent of22 resultswithin the time period is included. PTT 70.1(H) 23.1 - 37.1 seconds 11/25/2024 8:24 PM TONE CABINET ASSEMBLER [facility] Blood Venipuncture / Unknown 11/25/2024 7:42 PM TONE CABINET ASSEMBLER 11/25/2024 7:59 PM TONE CABINET ASSEMBLER Result [facility] Diego Mcknight MD HEMATOLOGY ORDERABLES Selin l Result Performing Organization Address [facility]/ZIP Co de Phone Number [facility] CLIA# [id number] [place] [address] * TELEMETRY REPORT (11/25/2024 3:26 PM TONE CABINET ASSEMBLER) Only the most recent of16 resultswithin the time period is included. Result [facility] Provider Scanning ECG ORDERABLES Final Result * (ABNORMAL) CBC WITHOUT DIFFERENTIAL (11/24/2024 2:56 AM TONE CABINET ASSEMBLER) WBC 8.9 4.0 - 9.8 K/uL 11/24/2024 5:01 AM [facility] RBC 2.20(L) 4.50 - 5.40 M/uL 11/24/2024 5:01 AM [facility] HEMOGLOBIN 7.3(L) 13.6 - 16.5 g/dL 11/24/2024 5:01 AM [facility] HEMATOCRIT 22.7(L) 40.0 - 48.0 % 11/24/2024 5:01 AM [facility] MCV 103.2(H) 82.0 - 99.0 fL 11/24/2024 5:01 AM [facility] MCH 33.2(H) 27.2 - 32.6 pg 11/24/2024 5:01 AM [facility] MCHC 32.2 31.5 - 35.5 g/dL 11/24/2024 5:01 AM [facility] PLATELETS 332 140 - 350 K/uL 11/24/2024 5:01 AM [facility] MPV 10.2 9.3 - 12.4 fL 11/24/2024 5:01 AM [facility] RDW 17.3(H) 11.5 - 14.5 % 11/24/2024 5:01 AM [facility] RDW-STDEV 65.5(H) 37.1 - 48.7 fL 11/24/2024 5:01 AM [facility] Blood Venipuncture / Unknown 11/24/2024 2:56 AM TONE CABINET ASSEMBLER 11/24/2024 5:01 AM TONE CABINET ASSEMBLER us Diego Mcknight MD HEMATOLOGY ORDERABLES Selin l Result [facility] CLIA# [id number] [place] [address] * XR FOOT 3+ VW RIGHT (11/23/2024 1:04 PM TONE CABINET ASSEMBLER) Anatomical Region Laterality Modality Ankle / Foot Computed Radiogr aphy 11/23/2024 1:04 PM TONE CABINET ASSEMBLER Impressions 11/23/2024 1:14 PM TONE CABINET ASSEMBLER IMPRESSION: 1. Interval first digit amputation. DICTATION LOCATION: Location 7 - [facility] Narrative 11/23/2024 1:14 PM TONE CABINET ASSEMBLER EXAMINATION: XR FOOT 3+ VW RIGHT DATE: [...] Interval first digit amputation. DICTATION LOCATION: Location [address] [place] [address] Jesus Luciano DPM DIAGNOSTIC IMAGING ORDERABL ES Final Result * TRANSFUSE RED BLOOD CELLS (11/23/2024 12:36 PM TONE CABINET ASSEMBLER) Only the most recent of2 resultswithin the time period is included. Reinier Dale MD BLOOD TRANSFUSI ON ORDERABLES Final Result * PATHOLOGY (11/23/2024 11:55 AM TONE CABINET ASSEMBLER) CASE REPORT Surgical Pathology Report Case: [id number] Authorizing Provider: Jesus Luciano DPM Collected: 11/23/2024 11:55 AM Ordering Location: [facility] Received: 11/25/2024 09:35 AM Operating Room Pathologist: Shirlye Tran MD Specimens: A) - Bone, proximal first metatarsal, Toe Great, right B) - Toe Great, right, right great toe 11/27/2024 3:40 PM TONE CABINET ASSEMBLER [facility] LABORATORY SERVICES - [facility] FINAL DIAGNOSIS Bone, proximal first metatarsal, excision - Bone with focal acute inflammation, consistent with focal acute osteomyelitis - Bone with degenerative/regenera tive change Foot, right great toe, amputation - Skin and soft tissue with ulceration, abscess, and devitalization/necros is - Bone with devitalization/necros is 11/27/2024 3:40 PM [facility] at 1539 TONE CABINET ASSEMBLER GROSS DESCRIPTION A. Received in formalin labeled [...] lesion submitted after decalcification 11/27/2024 3:40 PM [facility] MICROSCOPIC DESCRIPTION Microscopic review supports the diagnosis. 11/27/2024 3:40 PM [facility] OPERATIVE PROCEDURE 1: TOE(S) AMPUTATION 11/27/2024 3:40 PM [facility] CLINICAL INFORMATION UNKNOWN 11/27/2024 3:40 PM [facility] COMMENT Immunohistochemical stains were performed, if any, and interpreted at [facility] ([facility]) Laboratory with appropriately staining controls. This test was developed and its performance characteristics determined by [facility] Lab. It has not been cleared or [...] these and other antigens. 11/27/2024 3:40 PM [facility] Tissue ENTIRE BONE ORGAN / Unknown Collection / Unknown 11/23/2024 11:55 AM TONE CABINET ASSEMBLER 11/25/2024 9:35 AM TONE CABINET ASSEMBLER Tissue specimen (specimen) (Toe Great, right) Collection / Unknown 11/23/2024 11:55 AM TONE CABINET ASSEMBLER 11/25/2024 9:35 AM TONE CABINET ASSEMBLER Jesus Luciano DPNegro PATHOLOGY/CYTOLOGY ORDERABL ES Final Result Performing Organization Address City/[facility]/ZIP Co de Phone Number [facility] CLIA# [id number] [place] [address] * PREPARE RED BLOOD CELLS (11/23/2024 6:58 AM TONE CABINET ASSEMBLER) Only the most recent of3 resultswithin the time period is included. Pathologist [facility] [place] COMPONENT TYPE [id number] [facility] COMPONENT IDENTIFICATION [id number] [facility] LABORATORY [facility] UNIT ABO O [facility] LAB[facility]ORY [facility] POS [facility] CROSSMATCH Compatible [facility] COMPONENT STATUS Transfused ME [facility] LAB[facility]ATORY [facility] COMPONENT EXPIRATION DATE/TIME [id number] [facility] COMPONENT CODING SYSTEM [address] [facility] [employer] [facility] VOLUME, BLOOD PRODUCT 350 [facility] Other, specify 11/23/2024 6: 58 AM TONE CABINET ASSEMBLER Reinier Dale MD LAB TRANSFUSION ORDERABLES Edited Result - Final [facility] [employer] [facility] CLIA# [id number] [place] [address] * (ABNORMAL) CBC WITH DIFFERENTIAL (11/23/2024 3:44 AM TONE CABINET ASSEMBLER) Only the most recent of9 resultswithin the time period is included. Pathologist [facility] WBC 9.6 4.0 - 9.8 K/uL 11/23/2024 4:11 AM TONE CABINET ASSEMBLER [facility] [employer] [facility] RBC 2.12(L) 4.50 - 5.40 M/uL 11/23/2024 4:11 AM [facility] HEMOGLOBIN 7.0(L) 13.6 - 16.5 g/dL 11/23/2024 4:11 AM [facility] HEMATOCRIT 21.9(L) 40.0 - 48.0 % 11/23/2024 4:11 AM [facility] MCV 103.3(H) 82.0 - 99.0 fL 11/23/2024 4:11 AM [facility] MCH 33.0(H) 27.2 - 32.6 pg 11/23/2024 4:11 AM [facility] MCHC 32.0 31.5 - 35.5 g/dL 11/23/2024 4:11 AM [facility] RDW 16.6(H) 11.5 - 14.5 % 11/23/2024 4:11 AM [facility] RDW-STDEV 62.7(H) 37.1 - 48.7 fL 11/23/2024 4:11 AM [facility] PLATELETS 346 140 - 350 K/uL 11/23/2024 4:11 AM [facility] MPV 9.8 9.3 - 12.4 fL 11/23/2024 4:11 AM [facility] NEUTROPHILS 74 % 11/23/2024 4:11 AM [facility] LYMPHOCYTES 13 % 11/23/2024 4:11 AM [facility] MONOCYTES 10 % 11/23/2024 4:11 AM [facility] EOSINOPHILS 2 % 11/23/2024 4:11 AM [facility] BASOPHILS 1 % 11/23/2024 4:11 AM [facility] IMMATURE GRANULOCYTES 1 % 11/23/2024 4:11 AM [facility] Comment:IG (Immature Granulo cyte) count includes Metamyelocytes, Myelocytes, and Promyelocytes NEUTROPHIL ABSOLUTE 7.09(H) 1.90 - 7.00 K/uL 11/23/2024 4:11 AM [facility] LYMPHOCYTE ABSOLUTE 1.19 0.70 - 4.50 K/uL 11/23/2024 4:11 AM TONE CABINET ASSEMBLER [facility] MONOCYTE ABSOLUTE 0.94 0.10 - 1.30 K/uL 11/23/2024 4:11 AM [facility] EOSINOPHIL ABSOLUTE 0.20 0.00 - 0.70 K/uL 11/23/2024 4:11 AM TONE CABINET ASSEMBLER [facility] BASOPHILS ABSOLUTE 0.07 0.00 - 0.20 K/uL 11/23/2024 4:11 AM [facility] IMMATURE GRANULOCYTES ABSOLUTE 0.06(H) 0.00 - 0.03 K/uL 11/23/2024 4:11 AM [facility] Blood Venipuncture / Unknown 11/23/2024 3:44 AM TONE CABINET ASSEMBLER 11/23/2024 4:11 AM TONE CABINET ASSEMBLER Noy Jackson DO HEMATOLOGY ORDERABLES Selin l Result Performing Organization Address City/State/[facility] Co de Phone Number [facility] CLIA# [id number] [address] [place] [address] * TYPE AND SCREEN (11/23/2024 3:44 AM TONE CABINET ASSEMBLER) Only the most recent of2 resultswithin the time period is included. ABO GROUP O 11/23/2024 4:42 AM [facility] RH (D) TYPE Positive 11/23/2024 4:42 AM [facility] ANTIBODY SCREEN Negative 11/23/2024 4:42 AM [facility] Blood Venipuncture / Unknown 11/23/2024 3:44 AM TONE CABINET ASSEMBLER 11/23/2024 3:50 AM TONE CABINET ASSEMBLER Noy Jackson DO BLOOD BANK ORDERABLES Edit ed Result - Final Performing Organization Address City/State/[facility] Co de Phone Number [facility]ORY [facility]# [id number] [place] [address] * POTASSIUM LEVEL (11/22/2024 4:05 PM TONE CABINET ASSEMBLER) POTASSIUM 4.6 3.4 - 5.1 mmol/L 11/22/2024 5:15 PM TONE CABINET ASSEMBLER [facility]AT[facility] Blood Venipuncture / Unknown 11/22/2024 4:05 PM TONE CABINET ASSEMBLER 11/22/2024 4:26 PM TONE CABINET ASSEMBLER us Kianna Lu MD CHEMISTRY ORDERABLES Final Resul t Performing Organization Address [facility] Co de Phone Number [facility]# [id number] [place] [address] * HEMODIALYSIS (11/22/2024 12:01 PM TONE CABINET ASSEMBLER) Narrative Karissa Au, LEEROY - 11/22/2024 12:01 PM TONE CABINET ASSEMBLER Karissa Au, LEEROY 11/22/2024 12:03 PM Hemodialysis Treatment Note Target [...] Status: Right forearm fistula with + bruit/thrill. Moran removed. Direct pressure held until hemostasis achieved. [...] Result * MAGNESIUM LEVEL (11/21/2024 6:01 AM TONE CABINET ASSEMBLER) Only the most recent of3 resultswithin the time period is included. MAGNESIUM 2.1 1.6 - 2.6 mg/dL 11/21/2024 6:44 AM TONE CABINET ASSEMBLER [facility] Blood Venipuncture / Unknown 11/21/2024 6:01 AM TONE CABINET ASSEMBLER 11/21/2024 6:07 AM TONE CABINET ASSEMBLER Roni Barahona PA-C CHEMISTRY ORDERABLES Final Result Performing Organization Address City/[facility]/ZIP Co de Phone Number [facility] CLIA# [id number] [address] [place] [address] * POC GLUCOSE (11/21/2024 5:39 AM TONE CABINET ASSEMBLER) GLUCOSE POC 90 74 - 99 mg/dL 11/21/2024 5:39 AM TONE CABINET ASSEMBLER [facility] POINT OF CARE SPECIMEN SOURCE, GLUCOSE POC Whole Blood 11/21/2024 5:39 AM [facility] POINT OF CARE Blood, whole 11/21/2024 5:39 AM TONE CABINET ASSEMBLER 11/21/2024 11:05 AM TONE CABINET ASSEMBLER Diego Mcknight MD POINT OF CARE TESTING Selin l Result [facility] POINT OF CARE CLIA # [id number] [place] [address] * EKG 12-LEAD (11/21/2024 5:29 AM TONE CABINET ASSEMBLER) Only the most recent of2 resultswithin the time period is included. 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[id number] Requested By: CHONG GARCIA Order Number: [id number] Reading : Chong Veloz Measurements Intervals [place] Rate: 79 P: 0 MO: 0 QRS: 17 QRSD: 100 T: 122 QT: 412 QTc: 472 Interpretive Statements Atrial fibrillation ST & Marked T wave abnormality, consider anterolateral ischemia Prolonged QT Abnormal ECG Compared to ECG 11/17/2024 12:43:44 Prolonged QT interval now present Electronically Signed On 11-21-2024 7:30:28 TONE CABINET ASSEMBLER by Chong Veloz Procedure Note Chong Veloz MD - 11/21/[address] [address] Test Date: 2024-11-21 Pat Name: JC DE LEON Department: 98 Room: 6420 Gender: Male 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[id number] Requested By: CHONG GARCIA Order Number: [id number] Reading MYNOR Veloz Measurements Intervals [place] Rate: 79 P: 0 MO: 0 QRS: 17 QRSD: 100 T: 122 QT: 412 QTc: 472 Interpretive Statements Atrial fibrillation ST & Marked T wave abnormality, consider anterolateral ischemia Prolonged QT Abnormal ECG Compared to ECG 11/17/2024 12:43:44 Prolonged QT interval now present Electronically Signed On 11-21-2024 7:30:28 TONE CABINET ASSEMBLER by Chong Veloz us Roni Barahona PA-C ECG ORDERABLES Final Resul t INTERFACE SYSTEM Refer to clinic/hospital department * VERIFICATION BLOOD GROUP (11/20/2024 8:52 PM TONE CABINET ASSEMBLER) ABO GROUP O 11/20/2024 10:00 PM TONE CABINET ASSEMBLER [facility] RH (D[facility] TYPE Positive 11/20/2024 10:00 PM TONE CABINET ASSEMBLER [facility] Blood Venipuncture / Unknown 11/20/2024 8:52 PM TONE CABINET ASSEMBLER 11/20/2024 9:29 PM TONE CABINET ASSEMBLER Result [facility] Franca Dykes MD BLOOD BANK ORDERAB LES Final Result Performing Organization Address [facility]/ZIP Co de Phone Number [facility] [id number] [place] [address] * (ABNORMAL) HEMOGLOBIN AND HEMATOCRIT (11/20/2024 3:13 PM TONE CABINET ASSEMBLER) HEMOGLOBIN 7.3(L) 13.6 - 16.5 g/dL 11/20/2024 3:31 PM TONE CABINET ASSEMBLER [facility] HEMATOCRIT 22.5(L) 40.0 - 48.0 % 11/20/2024 3:31 PM TONE CABINET ASSEMBLER [facility] Blood Venipuncture / Unknown 11/20/2024 3:13 PM TONE CABINET ASSEMBLER 11/20/2024 3:28 PM TONE CABINET ASSEMBLER Result [facility] Best Aiken MD HEMATOLOGY ORDERABLES Selin l Result Performing Organization Address City/[facility] Co de Phone Number [facility] CLIA# [id number] [phone] [place] [address] * POC ACTIVATED CLOTTING TIME (11/20/2024 1:23 PM TONE CABINET ASSEMBLER) Only the most recent of11 resultswithin the time period is included. ACTIVATED CLOTTING TIME POC 157 sec 11/20/2024 1:23 PM TONE CABINET ASSEMBLER [facility] Comment: Target Range(s): >400 sec. Cardiovascular Surgery >250 sec. when Cardiac Cath or other intervention is performed. <180 sec. to pull sheath Blood 11/20/2024 1:23 PM TONE CABINET ASSEMBLER 11/20/2024 1:52 PM TONE CABINET ASSEMBLER Result [facility] Diego Mcknight MD POINT OF CARE TESTING Selin l Result Performing Organization Address [facility]/ZIP Co de Phone Number [facility] CLIA# [id number] [place] [address] * XR OR (11/20/2024 1:12 PM TONE CABINET ASSEMBLER) Narrative [facility] POINT OF CARE - 11/20/2024 1:13 PM TONE CABINET ASSEMBLER Order information only. Exam was auto-finalized. Franca Dykes MD DIAGNOSTIC IMAGING ORDERABLES Final Result Performing Organization Address [facility] Co de Phone Number [facility] POINT OF CARE CLIA # [id number] [phone] [place] [address] * POC LACTIC ACID (11/20/2024 12:10 PM TONE CABINET ASSEMBLER) Only the most recent of2 resultswithin the time period is included. LACTIC ACID POC 0.6 <=2.0 mmol/L 11/20/2024 12:10 PM TONE CABINET ASSEMBLER [facility] SPECIMEN SOURCE, GASES POC Arterial 11/20/2024 12:10 PM TONE CABINET ASSEMBLER [facility] Blood 11/20/2024 12:1 0 PM TONE CABINET ASSEMBLER 11/20/2024 12:11 PM TONE CABINET ASSEMBLER Diego Mcknight MD POINT OF CARE TESTING Selin l Result Performing Organization Address [facility] Co de Phone Number [facility] CLIA# [id number] [phone] [place] [address] * (ABNORMAL) BLOOD GAS,(INCL. H+H, LYTES, GLUC) (11/20/2024 12:10 PM TONE CABINET ASSEMBLER) Only the most recent of2 resultswithin the time period is included. PH BLOOD POC 7.37 7.35 - 7.45 11/20/2024 12:10 PM TONE CABINET ASSEMBLER [facility] PCO2 POC 35 35 - 48 mm Hg 11/20/2024 12:10 PM [facility] PO2 POC 144(H) 83 - 108 mm Hg 11/20/2024 12:10 PM [facility] HCO3 (CALC) POC 20(L) 22 - 26 mmol/L 11/20/2024 12:10 PM [facility] O2 SATURATION POC 100(H) 94 - 98 % 11/20/2024 12:10 PM [facility] BASE EXCESS POC -5(L) -2 - 3 mmol/L 11/20/2024 12:10 PM [facility] HEMOGLOBIN POC 6.4(LL) 13.6 - 16.5 g/dL 11/20/2024 12:10 PM [facility] HEMATOCRIT POC 19(L) 40 - 48 % 11/20/2024 12:10 PM [facility] Comment:Estimated Value GLUCOSE POC 92 74 - 99 mg/dL 11/20/2024 12:10 PM [facility] SODIUM POC 131(L) 135 - 145 mmol/L 11/20/2024 12:10 PM [facility] POTASSIUM POC 5.8(H) 3.5 - 4.9 mmol/L 11/20/2024 12:10 PM [facility] CHLORIDE POC 105 98 - 107 mmol/L 11/20/2024 12:10 PM [facility] CALCIUM IONIZED POC 5.3(H) 4.8 - 5.2 mg/dL 11/20/2024 12:10 PM [facility] PH TEMP CORRECT 7.37 7.35 - 7.45 11/20/19 25 12:10 PM [facility] PCO2 TEMP CORRECT 35 35 - 48 mm Hg 11/20/2024 12:10 PM [facility] PO2 TEMP CORRECT 144(H) 83 - 108 mm Hg 11/20/2024 12:10 PM [facility] SPECIMEN SOURCE, GASES POC Arterial 11/20/2024 12:10 PM [facility] PATIENT'S TEMPERATURE POC 37.0 degrees 11/20/2024 12:10 PM [facility] OXYGEN CONTENT POC 9.0 mL/dL 11/20/2024 12:10 PM [facility] Blood, arterial 11/20/2024 1 2:10 PM TONE CABINET ASSEMBLER 11/20/2024 12:11 PM TONE CABINET ASSEMBLER Diego Mcknight MD ABG ORDERABLES Final Resu lt [facility] CLIA# [id number] [place] [address] * (ABNORMAL) OXIMETRY (11/20/2024 12:10 PM TONE CABINET ASSEMBLER) Only the most recent of2 resultswithin the time period is included. OXYHEMOGLOBIN POC 96.4 94.0 - 97.0 % 11/20/2024 12:10 PM [facility] HEMOGLOBIN POC 6.4(LL) 13.6 - 16.5 g/dL 11/20/2024 12:10 PM [facility] OXYGEN CONTENT POC 9.0 mL/dL 11/20/2024 12:10 PM [facility] O2 SATURATION POC 100(H) 94 - 98 % 025 12:10 PM [facility] SPECIMEN SOURCE, GASES POC Arterial 11/20/2024 12:10 PM [facility] SAMPLE SITE, GASES POC N-SY 11/20/2024 12:10 PM [facility] [place] Blood 11/20/2024 12:1 0 PM [employer] 11/20/2024 12:11 PM [employer] Diego Mcknight MD ABG ORDERABLES Final Resu lt [facility] CLIA# [id number] [place] [address] * (ABNORMAL) METHEMOGLOBIN QUANTITATIVE (11/20/2024 12:10 PM [employer]) Only the most recent of2 resultswithin the time period is included. METHEMOGLOBIN QUANT POC 1.2 <=1.5 % 11/20/2024 12:10 PM [employer] [facility] HEMOGLOBIN POC 6.4(LL) 13.6 - 16.5 g/dL 11/20/2024 12:10 PM [employer] [facility] Blood 11/20/2024 12:1 0 PM [employer] 11/20/2024 12:11 PM [employer] Diego Mcknight MD ABG ORDERABLES Final Resu lt Performing Organization Address City/[facility]/ZIP Co de Phone Number [facility] [id number] [place] [address] * (ABNORMAL) CARBOXYHEMOGLOBIN (11/20/2024 12:10 PM [employer]) Only the most recent of2 resultswithin the time period is included. Pathologist [facility] [place] CARBOXYHEMOGLOBIN POC 2.4 <=7.0 % 02/2025 12:10 PM [employer] [facility] HEMOGLOBIN POC 6.4(LL) 13.6 - 16.5 g/dL 11/20/2024 12:10 PM [employer] [facility] Blood 11/20/2024 12:1 0 PM [employer] 11/20/2024 12:11 PM [employer] Diego Mcknight MD ABG ORDERABLES Final Resu lt Performing Organization Address City/[facility]/ZIP Co de Phone Number [facility] CLIA# [id number] [place] [address] * [place] ANES INSERT CATH, ART, PERCUT, SHORTTERM (11/20/2024 8:36 AM [employer]) Narrative Darius Dela Cruz AA-C - 11/20/2024 8:36 AM [employer] Darius Dela Cruz AA-C 11/20/2024 8:38 AM [...] size: 20 G Catheter Length (in.): 1.75 [place] Identification: palpation technique Number of attempts: 1 Successful placement: yes Assessment: blood return through port Procedure uneventful Post-procedure: line secured and dressing applied Kianna Lu MD PROCEDURE/MINOR SURGICAL ORDERAB LES Final Result * [place] ANES VNPNXR 3 YEARS/> PHYS/QHP SKILL, PERIPHERAL IV ADULT (11/20/2024 8:15 AM TONE CABINET ASSEMBLER) Narrative Darius Dela Cruz AA-C - 11/20/2024 8:15 AM TONE CABINET ASSEMBLER Darius Dela Cruz AA-C 11/20/2024 8:36 AM Peripheral Line Insertion Date/Time: 11/20/2024 8:15 AM Staffing Performed: APPELLATE CONFEREE/CAA Authorized by: Kianna Lu MD Performed by: [...] PROCEDURE/MINOR SURGICAL ORDERAB LES Final Result * MO ANES INSERT ENDOTRACHEAL AIRWAY (11/20/2024 7:36 AM TONE CABINET ASSEMBLER) Darius Burrows AA-C - 11/20/2024 7:36 AM TONE CABINET ASSEMBLER Darius Dela Cruz AA-C 11/20/2024 8:17 AM Airway Date/Time: 11/20/2024 7:36 AM Location: OR Plan: elective intubation Patient Identity Confirmed by: Verbally with patient and armband Airway: not difficult Staffing Performed: Student NA/AA Authorized by: Kianna Lu MD Performed by: Darius Dela Cruz AA-C Dairy Technician: Kianna Lu MD Indications and Patient [...] * EXTRA TUBE (BLUE) (11/18/2024 12:41 AM TONE CABINET ASSEMBLER) Blood Venipuncture / Unknown 11/18/2024 12:41 AM TONE CABINET ASSEMBLER 11/18/2024 12:41 AM TONE CABINET ASSEMBLER us Brant Leonard MD HEMATOLOGY ORDERABLES Final Re sult [facility]# [id number] [place] [address] * (ABNORMAL) UNFRACTIONATED HEPARIN MONITORING (11/17/2024 5:21 PM TONE CABINET ASSEMBLER) Only the most recent of8 resultswithin the time period is included. ANTI-XA UNFRAC HEP >1.10(HH) See Interpreta tion. IU/mL 11/17/2024 7:01 PM TONE CABINET ASSEMBLER [facility] Blood Venipuncture / Unknown 11/17/2024 5:21 PM TONE CABINET ASSEMBLER 11/17/2024 6:06 PM TONE CABINET ASSEMBLER Narrative [facility] - 11/17/2024 7:01 PM TONE CABINET ASSEMBLER Unfractionated Heparin Therapeutic Range: 0.30-0.70 IU/ml Refer to pharmacy adult heparin protocol for further recommendation. The reference range for this test is specific to the anticoagulant and is not appropriate for monitoring patients on a DOAC protocol. us Miracle Horne NP HEMATOLOGY ORDERABLES Final Res ult [facility] CLIA# [id number] [place] [address] * NM MYOCARD PERF IMAG SPECT MULT (11/17/2024 9:21 AM TONE CABINET ASSEMBLER) 11/17/2024 9:23 AM TONE CABINET ASSEMBLER Narrative INTERFACE SYSTEM - 11/17/2024 10:58 AM TONE CABINET ASSEMBLER HISTORY: Preoperative risk assessment RESTING EKG: Normal [...] NM PHARMACOLOGICAL STRESS TEST (11/17/2024 8:23 AM TONE CABINET ASSEMBLER) Narrative [facility] - 11/17/2024 8:24 AM TONE CABINET ASSEMBLER Order information only. Exam was auto-finalized. Michi Mckeon MD NM ORDERABLES Final Result Performing Organization Address City/[facility]/ZIP Co de Phone Number [facility]INT [facility] CLIA # [id number] [place] [address] * ECHOCARDIOGRAM W/ CONTRAST AGENT (11/16/2024 4:48 PM TONE CABINET ASSEMBLER) EJECTION FRACTION 60 INTERFACE SYSTEM 11/16/2024 4:19 PM TONE CABINET ASSEMBLER Narrative INTERFACE SYSTEM - 11/16/2024 10:08 PM TONE CABINET ASSEMBLER Transthoracic Echocardiogram Patient: Jc De Leon Study ID: [id number] Gender: M : 1960 Age: 64 Race: CAU Height 182.9cm Study Date: 11/16/2024 Weight: 92.1kg Access. #: [id number] BP: 133 / 75 *Referring Physician:* Miracle Horne *Ordering Physician:* Miracle Horne *Sql Manager:* Nishant Cordoba RDCS,[facility] lithographic platemaker: Nurse: Indications: Dyspnea. Syncope / Near syncope. [...] values inside specified reference range. Procedure data: [facility] Comparison was made to the study of [...] Bedside. Prepared and Electronically Authenticated Michi Mckeon [id number] Procedure Note Michi Mckeon MD - 11/16/2024 Transthoracic Echocardiogram Patient: Jc De Leon Study ID: [id number] Gender: M : 1960 Age: 64 Race: CAU Height 182.9cm Study Date: 11/16/2024 Weight: 92.1kg Access. #: [id number] BP: 133 / 75 *Referring Physician:* Miracle Horne *Ordering Physician:Miracle Crane *Sql Manager:José Antonio Cordoba [facility] lithographic platemaker: Nurse: Indications: Dyspnea. Syncope / Near syncope. [...] values inside specified reference range. Procedure data: [facility] Comparison was made to the study of [...] Bedside. Prepared and Electronically Authenticated Michi Mckeon [id number] us Miracle Horne NP US ORDERABLES Final Result INTERFACE SYSTEM Refer to clinic/hospital department * (ABNORMAL) LIPID PANEL (11/16/2024 5:09 AM TONE CABINET ASSEMBLER) CHOLESTEROL 75 <200 mg/dL 11/16/2024 3:58 PM [facility] TRIGLYCERIDE 98 <150 mg/dL 11/16/2024 3:58 PM [facility] HDL 33(L) 40 - 59 mg/dL 11/16/2024 3:58 PM [facility] LDL CALCULATED 22 <100 mg/dL 11/16/2024 3:58 PM [facility] NON-HDL CHOLESTEROL 42 <130 mg/dL 11/16/2024 3:58 PM [facility] Blood Venipuncture / Unknown 11/16/2024 5:09 AM TONE CABINET ASSEMBLER 11/16/2024 6:29 AM TONE CABINET ASSEMBLER Narrative [facility] - 11/16/2024 3:58 PM TONE CABINET ASSEMBLER TOTAL CHOLESTEROL mg/dL Desirable <200 Borderline high [...] Leonard MD CHEMISTRY ORDERABLES Final Res ult [facility] CLIA# [id number] [place] [address] * CTA ABD AORTA BI ILIOFEM W AND/OR WO (11/15/2024 6:53 PM TONE CABINET ASSEMBLER) Anatomical Region Laterality Modality Abdomen Computed Tomogra phy 11/15/2024 6:23 PM TONE CABINET ASSEMBLER Impressions 11/15/2024 8:13 PM TONE CABINET ASSEMBLER IMPRESSION: 1. Extensive multifocal atherosclerotic disease as [...] Absent right kidney. DICTATION LOCATION: Location 7 [facility] 11/15/2024 8:13 PM TONE CABINET ASSEMBLER EXAMINATION: CTA ABD AORTA BI ILIOFEM W [...] 3. Absent right kidney. DICTATION LOCATION: Location [address] [place] [address] Shanika Sebastian SUPERVISOR PAINT DEPARTMENT CT ORDERABLES Selin l Result * CTA CHEST W AND/OR WO CONTRAST (11/15/2024 6:51 PM TONE CABINET ASSEMBLER) Anatomical Region Laterality Modality Chest Computed Tomogra phy 11/15/2024 6:29 PM TONE CABINET ASSEMBLER Impressions 11/15/2024 7:40 PM TONE CABINET ASSEMBLER IMPRESSION: 1. No evidence of pulmonary embolism. 2. Similar appearance of bilateral pulmonary nodules, most consistent with metastatic disease. Redemonstration of enlarged aortopulmonary lymph node. Increased subcarinal lymph node. 3. Small bilateral pleural effusions. 4. Unchanged lucent lesion at the T12 inferior endplate, most suggestive of metastatic focus. DICTATION LOCATION: Location [address] [place] [address] 11/15/2024 7:40 PM TONE CABINET ASSEMBLER EXAMINATION: CTA CHEST W AND/OR WO CONTRAST [...] suggestive of metastatic focus. DICTATION LOCATION: Location [address] [place] [address] ORDERABLES Final Result * BLOOD CULTURE (11/15/2024 3:23 PM TONE CABINET ASSEMBLER) Only the most recent of2 resultswithin the time period is included. BLOOD CULTURE No growth 11/20/2024 9:03 PM TONE CABINET ASSEMBLER [facility] Blood (Peripheral) Venipuncture / Unknown 11/15/2024 3:23 PM TONE CABINET ASSEMBLER 11/15/2024 3:51 PM TONE CABINET ASSEMBLER Miracle Horne NP MICROBIOLOGY - GENERAL ORDERABL ES Final Result Performing Organization Address [facility]/ZIP Co de Phone Number [facility] CLIA# [id number] [address] [place] [address] * HEPATITIS B SURFACE ANTIGEN (11/15/2024 1:48 AM TONE CABINET ASSEMBLER) HEPATITIS B SURFACE AG NON-REACT THOMAS Non-react thomas 11/15/2024 6:48 PM TONE CABINET ASSEMBLER [facility] Comment:A non-reactive test result does not exclude the possibility of exposure to or infection with hepatitis B. Blood Venipuncture / Unknown 11/15/2024 1:48 AM TONE CABINET ASSEMBLER 11/15/2024 1:57 AM TONE CABINET ASSEMBLER Romel Bangura MD CHEMISTRY ORDERABLES Final Resul t Performing Organization Address City/[facility]/ZIP Co de Phone Number [facility] [employer] [facility] CLIA# [id number] [place] [address] * US VENOUS DOPPLER LEG BILATERAL (11/14/2024 4:48 PM TONE CABINET ASSEMBLER) Anatomical Region Laterality Modality Lower Extremity Ultrasound 11/14/2024 4:49 PM TONE CABINET ASSEMBLER Impressions 11/14/2024 5:07 PM TONE CABINET ASSEMBLER IMPRESSION: Normal. DICTATION LOCATION: [address] Narrative 11/14/2024 5:07 PM TONE CABINET ASSEMBLER EXAMINATION: US VENOUS DOPPLER LEG BILATERAL DATE: [...] evidence of DVT. IMPRESSION: Normal. DICTATION LOCATION: [address] us Joseph Yee NP US ORDERABLES Final Result * MRI FOOT WO CONTRAST LEFT (11/14/2024 3:11 PM TONE CABINET ASSEMBLER) Anatomical Region Laterality Modality Ankle / Foot Magnetic Resonan ce 11/14/2024 3:11 PM TONE CABINET ASSEMBLER Impressions 11/14/2024 3:37 PM TONE CABINET ASSEMBLER IMPRESSION: 1. Wound at the distal 1st digit, with underlying bony signal alteration at the 1st distal phalangeal tuft, suggesting sequela of osteomyelitis, potentially with more chronic appearance, with partial acute component questioned. 2. Wound at the 3rd digit with underlying bony signal alteration at the distal shaft and tuft of the 3rd distal phalanx, most consistent with localized osteomyelitis. DICTATION LOCATION: [address] Narrative 11/14/2024 3:37 PM TONE CABINET ASSEMBLER EXAMINATION: MRI FOOT WO CONTRAST LEFT DATE: [...] consistent with localized osteomyelitis. DICTATION LOCATION: Location [address] [place] [address] Ruizhanna Yee NP MR ORDERABLES Final Result * MRI FOOT WO CONTRAST RIGHT (11/14/2024 2:47 PM TONE CABINET ASSEMBLER) Anatomical Region Laterality Modality Ankle / Foot Magnetic Resonan ce 11/14/2024 2:48 PM TONE CABINET ASSEMBLER Impressions 11/14/2024 3:14 PM TONE CABINET ASSEMBLER IMPRESSION: First distal phalanx fractures are again noted. There is diffuse first distal phalangeal marrow edema and possibly soft tissue gas in the great toe. Osteomyelitis cannot be excluded in the setting of fracture but is highly suspected based on review of the 11/09/2024 outside radiographs. DICTATION LOCATION: Location [address] [place] [address] Narrative 11/14/2024 3:14 PM TONE CABINET ASSEMBLER EXAMINATION: MRI FOOT WO CONTRAST RIGHT DATE: [...] the 11/09/2024 outside radiographs. DICTATION LOCATION: Location 7 - [facility] Joseph Yee NP MR ORDERABLES Final Result * HEMOGLOBIN A1C (11/14/2024 12:58 AM TONE CABINET ASSEMBLER) HEMOGLOBIN A1C 5.4 <=5.6 % 11/14/2024 2:30 AM TONE CABINET ASSEMBLER [facility] [employer] [facility] EST. AVG GLUCOSE, A1C 108 mg/dL 11/14/2024 2:30 AM TONE CABINET ASSEMBLER [facility] Blood Venipuncture / Unknown 11/14/2024 12:58 AM TONE CABINET ASSEMBLER 11/14/2024 2:12 AM TONE CABINET ASSEMBLER Narrative [facility] - 11/14/2024 2:30 AM TONE CABINET ASSEMBLER HGB A1C INTERPRETATION NORMAL: <5.7% PRE-DIABETES: 5.7 - 6.4% DIABETES: 6.5% OR GREATER Joseph Yee NP CHEMISTRY ORDERABLES Final Res ult [facility] CLIA# [id number] [place] [address] * (ABNORMAL) COMPREHENSIVE METABOLIC PANEL (11/14/2024 12:58 AM TONE CABINET ASSEMBLER) SODIUM 129(L) 136 - 145 mmol/L 11/14/2024 2:44 AM TONE CABINET ASSEMBLER [facility] [employer] [facility] POTASSIUM 4.2 3.4 - 5.1 mmol/L 11/14/2024 2:44 AM [facility] [employer] [facility] CHLORIDE 91(L) 98 - 107 mmol/L 11/14/2024 2:44 AM TONE CABINET ASSEMBLER [facility] [employer] [facility] CO2 25 22 - 29 mmol/L 11/14/2024 2:44 AM [facility] [employer] [facility] CALCIUM 9.3 8.6 - 10.4 mg/dL 11/14/2024 2:44 AM [facility] BUN 44(H) 6 - 20 mg/dL 11/14/2024 2:44 AM [facility] CREATININE 7.14(H) 0.67 - 1.17 mg/dL 11/14/2024 2:44 AM [facility] GLUCOSE 100(H) 74 - 99 mg/dL 11/14/2024 2:44 AM [facility] TOTAL PROTEIN 6.1(L) 6.3 - 8.7 g/dL 11/14/2024 2:44 AM [facility] ALBUMIN 3.1(L) 3.5 - 5.2 g/dL 11/14/2024 2:44 AM [facility] BILIRUBIN TOTAL <0.2(L) 0.2 - 1.1 mg/dL 11/14/2024 2:44 AM [facility] ALKALINE PHOSPHATASE 67 40 - 150 U/L 11/14/2024 2:44 AM [facility] AST 20 0 - 41 U/L 11/14/2024 2:44 AM [facility] ALT 17 0 - 41 U/L 11/14/2024 2:44 AM [facility] GFR 8(L) >=60 mL/min/1.7 3 sq meter 11/14/2024 2:44 AM [facility] Comment:eGFR calculated with 2020 CKD-EPI equation. Vegetarian diet, extremely high or low muscle mass, and may affect results. Cystatin C with Glomerular Filtration Rate is a suitable alternative for these patients. ANION GAP 13 8 - 16 mmol/L 11/14/2024 2:44 AM [facility] Blood Venipuncture / Unknown 11/14/2024 12:58 AM TONE CABINET ASSEMBLER 11/14/2024 2:12 AM TONE CABINET ASSEMBLER us Joseph Yee NP CHEMISTRY ORDERABLES Final Res ult [facility] CLIA# [id number] [place] [address] * US DOPPLER VENOUS ARM BILATERAL (11/14/2024 12:20 AM TONE CABINET ASSEMBLER) Anatomical Region Laterality Modality Upper Extremity Ultrasound 11/14/2024 12:2 1 AM TONE CABINET ASSEMBLER Impressions 11/14/2024 7:07 AM TONE CABINET ASSEMBLER IMPRESSION: 1. No evidence of deep vein thrombosis in either upper extremity. DICTATION LOCATION: [address] Narrative 11/14/2024 7:07 AM TONE CABINET ASSEMBLER EXAMINATION: US DOPPLER VENOUS ARM BILATERAL DATE: [...] thrombosis in either upper extremity. DICTATION LOCATION: [address] us Joseph Yee NP US ORDERABLES Final Result * MRI PRIOR STUDY (11/10/2024 6:35 AM TONE CABINET ASSEMBLER) Only the most recent of2 resultswithin the time period is included. [facility] - 11/14/2024 5:38 AM TONE CABINET ASSEMBLER This exam was auto finalized to allow images to be scanned to PACS. External Provider [facility] MR ORDERABLES Final Res ult Performing Organization Address [facility] Co de Phone Number [facility] CLIA # [id number] [place] [address] * XR PRIOR STUDY (11/09/2024 8:00 PM TONE CABINET ASSEMBLER) Only the most recent of6 resultswithin the time period is included. [facility] - 11/14/2024 5:41 AM TONE CABINET ASSEMBLER This exam was auto finalized to allow images to be scanned to PACS. External Provider [facility] DIAGNOSTIC IMAGING ORDERA BLES Final Result Performing Organization Address [facility] Co de Phone Number [facility] CLIA # [id number] [place] [address] * CT PRIOR STUDY (11/09/2024 3:30 AM TONE CABINET ASSEMBLER) [facility] - 11/14/2024 5:47 AM TONE CABINET ASSEMBLER This exam was auto finalized to allow images to be scanned to PACS. External Provider [facility] CT ORDERABLES Final Res ult Performing Organization Address [facility] Co de Phone Number [facility] CLIA # [id number] [address] [place] [address] * PET BONE IMG W CT IVA PLUNKETT (11/05/2024 2:45 PM TONE CABINET ASSEMBLER) Anatomical Region Laterality Modality Positron Emissio n Tomography (PET) Aydin Carrasco MD PE ORDERABLES Final Result from Last 3 Months Insurance BS BLUE ACCESS/TRUE BLUE PPO MEDICA[place]END[place] [employer] BLUE ACCESS/TRUE BLUE PPO RX [facility] [employer] Advance Directives For more information, please contact: [phone] Documents on File Type Date 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
--- OUTSIDE RECORDS SUMMARY | 2025-01-07 12:32 | XMS_ITS | Clinical Summary ---
Author Organization [facility] [employer] Address [address] [facility] [place] [address] Care Team Providers Care Point Of Care Technician Name Role Phone Gia Clark PA-C Primary Care Provider Source Comments [facility] [employer],non-owned Affiliates and Associated Physician Practices is amultiple site organization consisting of ambulatory clinics and hospital sitesin [place], [place], [place] and [place]. This disclosure is being madepursuant to the Care Everywhere program and may not contain all information available regarding this patient. Last updated 18.[facility] [employer] Social History Tobacco Use Types Packs/Day Years [...] age to complete this topic Care Teams Point Of Care Technician Relationship Specialty Start Date End Date Gia Clark PA-C [address] [place] [phone] PCP - General 05/24/22
--- OUTSIDE RECORDS SUMMARY | 2025-01-07 12:32 | XMS_ITS | Clinical Summary ---
Author Organization [facility] Address [address] [place] [phone] Phone Care Team Providers Care Awake Overnight Counselor Name Role Phone Gia Clark Primary Care Provider [phone] Allergies No known active allergies Medications Medication [...] Vaccine (#1) 2024 08/10/2021, 2019 Care Teams Awake Overnight Counselor Relationship Specialty Start Date End Date Gia Clark PA [address] [place] [phone] PCP - General 01/03/22
--- OUTSIDE RECORDS SUMMARY | 2025-01-07 12:33 | XMS_ITS | Data Portability ---
Author Organization MIRNA ALICIADionicio Leo Address [address] [facility] [place] [place] [address] Care Team Providers Care [place] Department Manager Name Role Phone GIA JACOBS Primary Care [...] D, 25-hydrox y, total, serum 2022 023 [facility], [address], [place], [address], 12/20/2022 17:09:37 vitamin B12 + folate, serum or blood 2022 023 [facility], [address], [place], [address], 12/20/2022 17:09:36 pro BNP (pro B-type natriuret ic peptide), serum or plasma 2022 023 [facility], [address], [place], [address], 12/20/2022 13:14:15 CMP, serum or plasma 2022 023 [facility], [address], [place], [address], 12/20/2022 13:11:06 lipid panel, serum 2022 023 [facility], [address], [address], [place], [address], 12/20/2022 13:11:05 CBC w/ auto diff 2022 023 [facility], [address], [place], [address], 12/20/2022 17:09:40 TSH + free T4, serum 2022 023 [facility], [address], [place], [address], 12/20/2022 17:09:35 HbA1c (hemoglob in A1c), blood 2022 023 [email or web address] In-Office Order, Internal Use Only DO Not Attach Compendium DO Not Attach Compendium, Do Not Delete/merge, [id number] 12/19/2022 12:08:18 Referral gastroent erologist referral 2022 023 ETOILE Magnus Marie MD, [address] [facility], [address], [place], [address], 11/14/2022 14:55:02 Procedures None recorded. Surgeries None recorded. Imaging US, echocardi ogram, transthor acic, complete, w/ color flow [address] [facility], [address], [place], [address], 11/03/2023 15:21:02 Medication Orders nicotine 21 mg/24 hr daily transderm al patch 2024 025 E[facility]50892, [address] [facility], [place], [place], [id number], 12/24/2024 17:04:56 Eliquis 5 mg tablet 03/2024 [facility] #37639, [address] [place], [place], [id number], 12/24/2024 17:18:54 furosemid e 20 mg tablet 2024 [facility] #69767, [address], [place], [id number], 12/24/2024 17:18:53 sodium bicarbona te 650 mg tablet 2024 [facility] #99905, [address] [place] [address], [id number], 12/24/2024 17:32:20 amlodipin e 10 mg tablet 2024 [facility] #63326, [address], [place], [id number], 12/24/2024 17:07:58 hydralazi ne 50 mg tablet 2024 [facility] #86133, [address] [place] [address], [id number], 12/24/2024 17:18:53 metoprolo l succinate ER 200 mg tablet,ex tended release 24 hr 2024 [facility] #51990, [address], [place], [id number], 12/24/2024 17:18:54 Breo Ellipta 200 mcg-25 mcg/dose powder for inhalatio n 2024 [facility] Store #97791, [address], [place], [id number], 12/24/2024 17:18:54 atorvasta tin 40 mg tablet 2024 025 PA[facility] #40499, [address], [place], [id number], 12/24/2024 17:18:54 hydralazi ne 25 mg tablet 2022 023 [facility]25525, [address], [place], [phone], 12/24/2024 17:04:14 metoprolo l succinate ER 100 mg tablet,ex tended release 24 hr 2022 023 [facility]30715, [address], [place], [id number], 12/24/2024 17:02:30 amlodipin e 10 mg tablet 2022 023 [email or web address] [facility] #52350, [address], [place], [id number], 12/24/2024 16:46:13 Patient TargetsNo targets recorded. 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 Referral for Screening for malignant neoplasm of colon Referring Physician: Gia Jacobs, Family Medicine, Encounter Date: 10/24/2022 Results Created Date Observation Date Name Description Value Unit Range Abnormal Flag Note LastModifiedBy Organization Detail LastModifiedTime 12/20/19 23 12/19/2022 LIPID PANEL WITH LDL/H DL RATIO cholesterol, total 130.5 mg/dL 140.0- 200.0 below low normal Not Available [facility] ([facility]) [address] [facility], [place], [address], 12/20/2022 13:11:05 12/20/19 23 12/19/2022 LIPID PANEL WITH LDL/H DL RATIO triglyceride s 66 mg/dL <=150 Not Available [facility] ([facility]) [address] [place], [address], 12/20/2022 13:11:05 12/20/19 23 12/19/2022 LIPID PANEL WITH LDL/H DL RATIO HDL cholesterol 54.1 mg/dL 40.0-1 00.0 Not Available [facility] ([facility]) [address] [place], [address], 12/20/2022 13:11:05 12/20/19 23 12/19/2022 LIPID PANEL WITH LDL/H DL RATIO VLDL cholesterol cornelio 13.20 mg/dL 5.00-4 0.00 Not Available [facility] ([facility]) [address] [place], [address], 12/20/2022 13:11:05 12/20/19 23 12/19/2022 LIPID PANEL WITH LDL/H DL RATIO LDL chol calc ([facility]) 62.7 Not Available [facility] ([facility]) [address] [place], [address], 12/20/2022 13:11:05 12/20/19 23 12/19/2022 LIPID PANEL WITH LDL/H DL RATIO LDL/HDL ratio 1.2 Not Available [facility] ([facility]) [address] [place], [address], 12/20/2022 13:11:05 12/20/19 23 12/20/2022 COMP. METAB OLIC PANEL (14) glucose 98 mg/dL 65-99 ANION GP 24.0 mmol/ L N OSMOL 304.0 mOsM/ L H REFER ENCE RANGE : 275.0 -301. 0 Not Available [facility] ([facility]) [address] [place], [address], 12/20/2022 13:11:06 12/20/19 23 12/20/2022 COMP. METAB OLIC PANEL (14) BUN 72 mg/dL 8-26 panic high Not Available [facility] ([facility]) [address] [facility] [place], [address], 12/20/2022 13:11:06 12/20/19 23 12/20/2022 COMP. METAB OLIC PANEL (14) creatinine 5.47 mg/dL 0.50-1 .40 panic high Not Available [facility] ([facility]) [address] [facility] [place], [address], 12/20/2022 13:11:06 12/20/19 23 12/20/2022 COMP. METAB OLIC PANEL (14) eGFR 11 mL/mi n/1.7 3 >=60 below low normal Not Available [facility] ([facility]) [address] [facility] [place], [address], 12/20/2022 13:11:06 12/20/19 23 12/20/2022 COMP. METAB OLIC PANEL (14) BUN/creatini ne ratio 13.1 Not Available [facility] ([facility]) [address] [facility] [place], [address], 12/20/2022 13:11:06 12/20/19 23 12/20/2022 COMP. METAB OLIC PANEL (14) sodium 141.9 mmol/ L 136.0- 144.0 Not Available [facility] ([facility]) [address] [facility] [place], [address], 12/20/2022 13:11:06 12/20/19 23 12/20/2022 COMP. METAB OLIC PANEL (14) potassium 5.0 mmol/ L 3.5-5. 3 Not Available [facility] ([facility]) [address] [facility] [place], [address], 12/20/2022 13:11:06 12/20/19 23 12/20/2022 COMP. METAB OLIC PANEL (14) chloride 105 mmol/ l 101-11 1 Not Available [facility] ([facility]) [address] [facility] [place], [address], 12/20/2022 13:11:06 12/20/19 23 12/20/2022 COMP. METAB OLIC PANEL (14) carbon dioxide, total 17.9 mmol/ L 21.0-3 2.0 below low normal Not Available [facility] ([facility]) [address] [facility] [place], [address], 12/20/2022 13:11:06 12/20/19 23 12/20/2022 COMP. METAB OLIC PANEL (14) calcium 9.7 mg/dL 8.2-10 .0 Not Available [facility] ([facility]) [address] [facility] [place], [address], 12/20/2022 13:11:06 12/20/19 23 12/20/2022 COMP. METAB OLIC PANEL (14) protein, total 6.6 g/dL 6.7-8. 2 below low normal Not Available [facility] ([facility]) [address] [facility] [place], [address], 12/20/2022 13:11:06 12/20/19 23 12/20/2022 COMP. METAB OLIC PANEL (14) albumin 4.0 g/dL 3.5-5. 5 Not Available [facility] ([facility]) [address] [facility] [place], [address], 12/20/2022 13:11:06 12/20/19 23 12/20/2022 COMP. METAB OLIC PANEL (14) globulin, total 2.6 g/dL 1.5-4. 5 Not Available [facility] ([facility]) [address] [facility] [place], [address], 12/20/2022 13:11:06 12/20/19 23 12/20/2022 COMP. METAB OLIC PANEL (14) A/G ratio 1.6 Not Available [facility] ([facility]) [address] [place], [address], 12/20/2022 13:11:06 12/20/19 23 12/20/2022 COMP. METAB OLIC PANEL (14) bilirubin, total 0.3 mg/dL 0.0-1. 2 Not Available [facility] ([facility]) [address] [place], [address], 12/20/2022 13:11:06 12/20/19 23 12/20/2022 COMP. METAB OLIC PANEL (14) alkaline phosphatase 87.0 IU/L 42.0-1 21.0 Not Available [facility] ([facility]) [address] [place], [address], 12/20/2022 13:11:06 12/20/19 23 12/20/2022 COMP. METAB OLIC PANEL (14) AST (SGOT) 16.3 U/L 10.0-4 2.0 Not Available [facility] ([facility]) [address] [place], [address], 12/20/2022 13:11:06 12/20/19 23 12/20/2022 COMP. METAB OLIC PANEL (14) ALT (SGPT) 20.7 U/L 10.0-6 0.0 Not Available [facility] ([facility]) [address] [place], [address], 12/20/2022 13:11:06 12/20/19 23 12/20/2022 TSH+F REE T4 TSH 1.010 uIU/m L 0.450- 4.500 Not Available [facility] ([facility]) [address] [place], [address], 12/20/2022 17:09:35 12/20/19 23 12/20/2022 TSH+F REE T4 T4,free(dire ct) 1.88 NG/dL 0.82-1 .77 above high normal Not Available [facility] ([facility]) [address] [facility], [place], [address], 12/20/2022 17:09:35 12/20/19 23 12/20/2022 HEMOG LOBIN A1C hemoglobin A1C - % Test not perfo rmed. No laven deepti top tube submi tted. Predi abete s: 5.7 - 6.4 Diabe daniel: >6.4 Glyce david contr ol for adult s with diabe daniel: <7.0 Not Available [facility] ([facility]) [address] [facility], [place], [address], 12/20/2022 17:09:36 12/20/19 23 12/20/2022 VITAM IN [...] Delon ferrer [place]: The Natio n[facility] Press . 2. Kris emerson MF, Britney choe [place], Chas off-F errar i MERCHANT, et al. Evalu ation , treat ment, and preve ntion of vitam in D defic iency : an Endoc rine Socie ty clini cornelio pract ice guide line. JCEM. 2010; 96(7) :1911 -30. Not Available [facility] ([facility]) [address] [facility], [place], [address], 12/20/2022 17:09:37 03/06/20 23 12/20/2022 CBC WITH DIFFE RENTI AL/PL ATELE T WBC - x10e3 /uL Test not perfo rmed. No laven deepti top tube submi tted. Not Available [facility] ([facility]) [address] [facility], [place], [address], 12/20/2022 17:09:40 12/20/19 23 12/20/2022 CBC WITH DIFFE RENTI AL/PL ATELE T RBC - Test not perfo rmed Not Available [facility] ([facility]) [address] [place], [address], 12/20/2022 17:09:40 12/20/19 23 12/20/2022 CBC WITH DIFFE RENTI AL/PL ATELE T hemoglobin - Test not perfo rmed Not Available [facility] ([facility]) [address] [facility], [place], [address], 12/20/2022 17:09:40 12/20/19 23 12/20/2022 CBC WITH DIFFE RENTI AL/PL ATELE T hematocrit - Test not perfo rmed Not Available [facility] ([facility]) [address] [facility], [place], [address], 12/20/2022 17:09:40 12/20/19 23 12/20/2022 CBC WITH DIFFE RENTI AL/PL ATELE T platelets - Test not perfo rmed Not Available [facility] ([facility]) [address] [place], [address], 12/20/2022 17:09:40 12/20/19 23 12/20/2022 CBC WITH DIFFE RENTI AL/PL ATELE T neutrophils - Test not perfo rmed Not Available [facility] ([facility]) [address] [place], [address], 12/20/2022 17:09:40 12/20/19 23 12/20/2022 CBC WITH DIFFE RENTI AL/PL ATELE T lymphs - Test not perfo rmed Not Available [facility] ([facility]) [address] [place], [address], 12/20/2022 17:09:40 12/20/19 23 12/20/2022 CBC WITH DIFFE RENTI AL/PL ATELE T monocytes - Test not perfo rmed Not Available [facility] ([facility]) [address] [place], [address], 12/20/2022 17:09:40 12/20/19 23 12/20/2022 CBC WITH DIFFE RENTI AL/PL ATELE T eos - Test not perfo rmed Not Available [facility] ([facility]) [address] [facility], [place], [address], 12/20/2022 17:09:40 12/20/19 23 12/20/2022 CBC WITH DIFFE RENTI AL/PL ATELE T lymphs (absolute) - Test not perfo rmed Not Available [facility] ([facility]) [address] [place], [address], 12/20/2022 17:09:40 12/20/19 23 12/20/2022 CBC WITH DIFFE RENTI AL/PL ATELE T eos (absolute) - Test not perfo rmed Not Available [facility] ([facility]) [address] [place], [address], 12/20/2022 17:09:40 12/20/19 23 12/20/2022 CBC WITH DIFFE RENTI AL/PL ATELE T baso (absolute) - Test not perfo rmed Not Available [facility] ([facility]) [address] [place], [address], 12/20/2022 17:09:40 12/20/19 23 12/20/2022 VITAM IN B12 AND FOLAT E vitamin B12 635 pg/mL 232-12 45 Not Available [facility] ([facility]) [address] [facility], [place], [address], 12/20/2022 17:09:36 12/20/19 23 12/20/2022 VITAM IN B12 AND FOLAT E folate (folic acid), serum 6.7 NG/mL >3.0 A serum folat e lynnette ntrat ion of less than 3.1 ng/mL is consi dered to repre sent clini cornelio defic iency . Not Available [facility] ([facility]) [address] [facility], [place], [address], 12/20/2022 17:09:36 12/20/1912/20/2022 NT-ND OBNP nt-probnp 4880 pg/mL 0-210 above high [...] enden t 300 pg/mL Not Available [facility] ([facility]) [address] [facility], [place], [address], 12/20/2022 17:09:35 12/20/19 23 12/20/2022 SPECI MEN STATU S REPOR T specimen status report TNP Test not perfo rmed. No laven deepti top tube submi tted. TEST: [id number] Hemog lobin A1c Not Available [facility] ([facility]) [address] [facility], [place], [address], 12/20/2022 17:09:34 12/20/19 23 12/20/2022 SPECI MEN STATU S REPOR T specimen status report TNP No laven deepti top tube submi tted. TEST: 9 CBC With Diffe renti al/Pl atele t Not Available [facility] ([facility]) [address] [facility], [place], [address], 12/20/2022 13:11:05 12/20/19 23 12/19/2022 HbA1c (hemo globi n A1c), blood HbA1c 5.3 Not Available In-Office Order Internal Use Only DO Not Attach Compendium DO Not Attach Compendium, Do Not Delete/merge, [id number] 12/19/2022 11:44:02 12/20/19 23 12/20/2022 SPECI MEN STATU S REPOR T specimen status report TNP Test not perfo rmed. No laven deepti top tube submi tted. 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 [employer] [facility] Not Available Not Available 12/24/2024 17:32:29 11/14/19 25 11/14/2024 CBC W Auto Diffe renti al panel - Blood RBC 2.24 text: 4.50 - 5.40 M/uL low RBC 2.24 (L) 4.50 - 5.40 M/uL 11/14 2:15 AM 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 [employer] [facility] Not Available Not Available 12/24/2024 17:32:29 11/14/19 25 11/14/2024 CBC W Auto Diffe renti al panel - Blood hemoglobin 7.8 g/dL low: 13.6g/ dLhigh : 16.5g/ dL low HEMOG LOBIN 7.8 (L) 13.6 - 16.5 g/dL 11/14 2:15 AM [facility] Not Available Not Available 12/24/2024 17:32:29 11/14/19 25 11/14/2024 CBC W Auto Diffe nathanti al panel - Blood hematocrit [volume fraction] of blood by automated count 24.6 % low: 40%hig h: 48% low HEMAT OCRIT 24.6 (L) 40.0 - 48.0 % 11/14 2:15 AM [employer] [facility] Not Available Not Available 12/24/2024 17:32:29 11/14/19 25 11/14/2024 CBC W Auto Diffe nathanti al panel - Blood MCV 109.8 fL low: 82fLhi gh: 99fL high MCV 109.8 (H) 82.0 - 99.0 fL 11/14 2:15 AM [facility] Not Available Not Available 12/24/2024 17:32:29 11/14/19 25 11/14/2024 CBC W Auto Diffe nathanti al panel - Blood MCH 34.8 pg low: 27.2pg high: 32.6pg high MCH 34.8 (H) 27.2 - 32.6 pg 11/14 2:15 AM [facility] Not Available Not Available 12/24/2024 17:32:29 11/14/19 25 11/14/2024 CBC W Auto Diffe renti al panel - Blood MCHC 31.7 g/dL low: 31.5g/ dLhigh : 35.5g/ dL MCHC 31.7 31.5 - 35.5 g/dL 11/14 2:15 AM [facility] Not Available Not Available 12/24/2024 17:32:29 11/14/19 25 11/14/2024 CBC W Auto Diffe renti al panel - Blood RDW 15 % low: 11.5%h igh: 14.5% high RDW 15.0 (H) 11.5 - 14.5 % 11/14 2:15 AM [employer] [facility] Not Available Not Available 12/24/2024 17:32:29 11/14/19 25 11/14/2024 CBC W Auto Diffe renti al panel - Blood RDW-stdev 60.4 fL low: 37.1fL high: 48.7fL high RDW-S TDEV 60.4 (H) 37.1 - 48.7 fL 11/14 2:15 AM [employer] [facility] Not Available Not Available 12/24/2024 17:32:29 11/14/19 25 11/14/2024 CBC W Auto Diffe renti al panel - Blood platelets [#/volume] in blood by automated count 360 K/uL low: 140K/u Lhigh: 350K/u L high PLATE LETS 360 (H) 140 - 350 K/uL 11/14 2:15 AM [employer] [facility] Not Available Not Available 12/24/2024 17:32:29 11/14/19 25 11/14/2024 CBC W Auto Diffe renti al panel - Blood MPV 10.2 fL low: 9.3fLh igh: 12.4fL MPV 10.2 9.3 - 12.4 fL 11/14 2:15 AM [employer] [facility] Not Available Not Available 12/24/2024 17:32:29 11/14/19 25 11/14/2024 CBC W Auto Diffe renti al panel - Blood neutrophils 78 % NEUTR OPHIL S 78 % 11/14 2:15 AM [employer] [facility] Not Available Not Available 12/24/2024 17:32:29 11/14/19 25 11/14/2024 CBC W Auto Diffe renti al panel - Blood lymphocytes/ 100 leukocytes in blood by automated count 10 % LYMPH OCYTE S 10 % 11/14 2:15 AM [facility] Not Available Not Available 12/24/2024 17:32:29 11/14/19 25 11/14/2024 CBC W Auto Diffe renti al panel - Blood monocytes 10 % MONOC YTES 10 % 11/14 2:15 AM 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 [employer] [facility] Not Available Not Available 12/24/2024 17:32:29 11/14/19 25 11/14/2024 CBC W Auto Diffe renti al panel - Blood eosinophils 1 % EOSIN OPHIL S 1 % 11/14 2:15 AM 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 [employer] [facility] Not Available Not Available 12/24/2024 17:32:29 11/14/19 25 11/14/2024 CBC W Auto Diffe renti al panel - Blood basophils 1 % BASOP HILS 1 % 11/14 2:15 AM [employer] [facility] Not Available Not Available 12/24/2024 17:32:29 11/14/19 25 11/14/2024 CBC W Auto Diffe renti al panel - Blood immature granulocytes 1 % IMMAT URE GRANU LOCYT ES 1 % 11/14 2:15 AM [employer] [facility] Not Available Not Available 12/24/2024 17:32:29 11/14/19 25 11/14/2024 CBC W Auto Diffe renti al panel - Blood neutrophils [#/volume] in blood by automated count 9.97 K/uL low: 1.9K/u Lhigh: 7K/uL high NEUTR OPHIL ABSOL [place] 9.97 (H) 1.90 - 7.00 K/uL 11/14 2:15 AM [employer] [facility] Not Available Not Available 12/24/2024 17:32:29 11/14/19 25 11/14/2024 CBC W Auto Diffe renti al panel - Blood lymphocyte absolute 1.21 K/uL low: 0.7K/u Lhigh: 4.5K/u L LYMPH OCYTE ABSOL [place] 1.21 0.70 - 4.50 K/uL 11/14 2:15 AM [employer] [facility] Not Available Not Available 12/24/2024 17:32:29 11/14/19 25 11/14/2024 CBC W Auto Diffe renti al panel - Blood monocyte absolute 1.25 K/uL low: 0.1K/u Lhigh: 1.3K/u L MONOC YTE ABSOL [place] 1.25 0.10 - 1.30 K/uL 11/14 2:15 AM 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 [employer] [facility] Not Available Not Available 12/24/2024 17:32:29 11/14/19 25 11/14/2024 CBC W Auto Diffe renti al panel - Blood eosinophil absolute 0.17 K/uL low: 0K/uLh igh: 0.7K/u L EOSIN OPHIL ABSOL [place] 0.17 0.00 - 0.70 K/uL 11/14 2:15 AM 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 [employer] [facility] Not Available Not Available 12/24/2024 17:32:29 11/14/19 25 11/14/2024 CBC W Auto Diffe renti al panel - Blood basophils absolute 0.06 K/uL low: 0K/uLh igh: 0.2K/u L BASOP HILS ABSOL [place] 0.06 0.00 - 0.20 K/uL 11/14 2:15 AM 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 Not Available Not Available 12/24/2024 17:32:07 11/14/19 25 11/14/2024 Compr ehens [place] metab olic 1999 panel - Serum or Plasm a potassium [moles/volum e] in serum or plasma 4.2 mmol/ L low: 3.4mmo l/Lhig h: 5.1mmo l/L POTAS SIUM 4.2 3.4 - 5.1 mmol/ L 11/14 2:44 AM [facility] Not Available Not Available 12/24/2024 17:32:07 11/14/19 25 11/14/2024 Compr ehens francisco metab olic 1999 panel - Serum or Plasm a chloride 91 mmol/ L low: 98mmol /Lhigh : 107mmo l/L low [place] 91 (L) 98 - 107 mmol/ L 11/14 2:44 AM [employer] [facility] Not Available Not Available 12/24/2024 17:32:07 11/14/19 25 11/14/2024 Compr ehens [place]isco metab olic 1999 panel - Serum or Plasm a carbon dioxide, total [moles/volum e] in serum or plasma 25 mmol/ L low: 22mmol /Lhigh : 29mmol /L CO2 25 22 - 29 mmol/ L 11/14 2:[address] [facility] Not Available Not Available 12/24/2024 17:32:07 11/14/19 25 11/14/2024 Compr ehens [place] metab olic 1999 panel - Serum or Plasm a calcium 9.3 mg/dL low: 8.6mg/ dLhigh : 10.4mg /dL CALCI UM 9.3 8.6 - 10.4 mg/dL 11/14 2:44 AM [employer] [facility] Not Available Not Available 12/24/2024 17:32:07 11/14/19 25 11/14/2024 Compr ehens [place] metab olic 1999 panel - Serum or Plasm a BUN 44 mg/dL low: 6mg/dL high: 20mg/d L high BUN 44 (H) 6 - 20 mg/dL 11/14 2:44 AM [employer] [facility] Not Available Not Available 12/24/2024 17:32:07 11/14/19 25 11/14/2024 Compr ehens francisco metab olic 1999 panel - Serum or Plasm a creatinine [mass/volume ] in serum or plasma 7.14 mg/dL low: 0.67mg /dLhig h: 1.17mg /dL high CREAT ININE 7.14 (H) 0.67 - 1.17 mg/dL 11/14 2:44 AM [employer] [facility] Not Available Not Available 12/24/2024 17:32:07 11/14/19 25 11/14/2024 Compr ehens francisco metab olic 1999 panel - Serum or Plasm a glucose [mass/volume ] in serum or plasma 100 mg/dL low: 74mg/d Lhigh: 99mg/d L high GLUCO SE 100 (H) 74 - 99 mg/dL 11/14 2:44 AM [employer] [facility] Not Available Not Available 12/24/2024 17:32:07 11/14/19 25 11/14/2024 Compr ehens francisco metab olic 1999 panel - Serum or Plasm a total protein 6.1 g/dL low: 6.3g/d Lhigh: 8.7g/d L low TOTAL PROTE IN 6.1 (L) 6.3 - 8.7 g/dL 11/14 2:44 AM [employer] [facility] Not Available Not Available 12/24/2024 17:32:07 11/14/19 25 11/14/2024 Compr ehens francisco metab olic 2000 panel - Serum or Plasm a albumin 3.1 g/dL low: 3.5g/d Lhigh: 5.2g/d L low ALBUM IN 3.1 (L) 3.5 - 5.2 g/dL 11/14 2:44 AM [employer] [facility] Not Available Not Available 12/24/2024 17:32:07 11/14/19 25 11/14/2024 Compr ehens francisco metab olic 1999 panel - Serum or Plasm a bilirubin total low: 0.2mg/ dLhigh : 1.1mg/ dL low BILIR UBIN TOTAL <0.2 (L) 0.2 - 1.1 mg/dL 11/14 2:44 AM [employer] [facility] Not Available Not Available 12/24/2024 17:32:07 11/14/19 25 11/14/2024 Compr ehens francisco metab olic 2000 panel - Serum or Plasm a alkaline phosphatase 67 U/L low: 40U/Lh igh: 150U/L ALKAL INE PHOSP HATAS E 67 40 - 150 U/L 11/14 2:44 AM [employer] [facility] Not Available Not Available 12/24/2024 17:32:07 11/14/19 25 11/14/2024 Compr ehens francisco metab olic 1999 panel - Serum or Plasm a AST 20 U/L low: 0U/Lhi gh: 41U/L AST 20 0 - 41 U/L 11/14 2:44 AM [employer] [facility] Not Available Not Available 12/24/2024 17:32:07 11/14/19 25 11/14/2024 Compr ehens francisco metab olic 1999 panel - Serum or Plasm a alanine aminotransfe rase [enzymatic activity/vol ume] in blood 17 U/L low: 0U/Lhi gh: 41U/L ALT 17 0 - 41 U/L 11/14 2:44 AM [employer] [facility] Not Available Not Available 12/24/2024 17:32:07 11/14/19 25 11/14/2024 Compr ehens francisco metab olic 1999 panel - Serum or Plasm a glomerular filtration rate/1.73 sq M.predicted [volume rate/area] in serum, plasma or blood by creatinine-b ased formula (CKD-epi 2020) 8 text: >=60 mL/min /1.73 sq meter low GFR 8 (L) >=60 mL/mi n/1.7 3 sq meter 11/14 2:44 AM 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 [facility] [place] Not Available Not Available 12/24/2024 17:32:07 11/14/19 25 11/14/2024 Compr ehens francisco metab olic 1999 panel - Serum or Plasm a anion gap 13 mmol/ L low: 8mmol/ Lhigh: 16mmol /L ANION GAP 13 8 - 16 mmol/ L 11/14 2:44 AM 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 [employer] [facility] Not Available Not Available 12/24/2024 [...] RE No growt h 11/20 9:03 PM 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 [facility] Not Available Not Available 12/24/2024 17:32:07 11/15/19 25 11/20/2024 Bacte shaneka ident ified in Blood by Cultu re interpretati on and review of laboratory results Normal Not Available Not Available 12/14 17:32:07 11/15/19 25 11/20/2024 Bacte shaneka ident ified in Blood by Cultu re bacteria identified in specimen by culture No growth BLOOD CULTU RE No growt h 11/20 9:03 PM 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 [facility] Not Available Not Available 12/24/2024 17:32:29 11/15/19 [...] - 145 mmol/ L 11/15 2:27 AM [employer] [facility] Not Available Not Available 12/24/2024 17:32:29 11/15/19 25 11/15/2024 Renal funct ion 1999 panel - Serum or Plasm a potassium [moles/volum e] in serum or plasma 4.3 mmol/ L low: 3.4mmo l/Lhig h: 5.1mmo l/L POTAS SIUM 4.3 3.4 - 5.1 mmol/ L 11/15 2:27 AM [employer] [facility] Not Available Not Available 12/24/2024 17:32:29 11/15/19 25 11/15/2024 Renal funct ion 1999 panel - Serum or Plasm a chloride 94 mmol/ L low: 98mmol /Lhigh : 107mmo l/L low CHLOR BURT 94 (L) 98 - 107 mmol/ L 11/15 2:27 AM [employer] [facility] Not Available Not Available 12/24/2024 17:32:29 11/15/19 25 11/15/2024 Renal funct ion 1999 panel - Serum or Plasm a carbon dioxide, total [moles/volum e] in serum or plasma 20 mmol/ L low: 22mmol /Lhigh : 29mmol /L low CO2 20 (L) 22 - 29 mmol/ L 11/15 2:27 AM [employer] [facility] Not Available Not Available 12/24/2024 17:32:29 11/15/19 25 11/15/2024 Renal funct ion 1999 panel - Serum or Plasm a calcium 9.3 mg/dL low: 8.6mg/ dLhigh : 10.4mg /dL CALCI UM 9.3 8.6 - 10.4 mg/dL 11/15 2:27 AM [employer] [facility] Not Available Not Available 12/24/2024 17:32:29 11/15/19 25 11/15/2024 Renal funct ion 1999 panel - Serum or Plasm a BUN 51 mg/dL low: 6mg/dL high: 20mg/d L high BUN 51 (H) 6 - 20 mg/dL 11/15 2:27 AM [employer] [facility] Not Available Not Available 12/24/2024 17:32:29 11/15/19 25 11/15/2024 Renal funct ion 1999 panel - Serum or Plasm a creatinine [mass/volume ] in serum or plasma 8.68 mg/dL low: 0.67mg /dLhig h: 1.17mg /dL high CREAT ININE 8.68 (H) 0.67 - 1.17 mg/dL 11/15 2:27 AM [employer] [facility] Not Available Not Available 12/24/2024 17:32:29 11/15/19 25 11/15/2024 Renal funct ion 1999 panel - Serum or Plasm a glucose [mass/volume ] in serum or plasma 103 mg/dL low: 74mg/d Lhigh: 99mg/d L high GLUCO SE 103 (H) 74 - 99 mg/dL 11/15 2:27 AM [employer] [facility] Not Available Not Available 12/24/2024 17:32:29 11/15/19 25 11/15/2024 Renal funct ion 1999 panel - Serum or Plasm a albumin 2.9 g/dL low: 3.5g/d Lhigh: 5.2g/d L low ALBUM IN 2.9 (L) 3.5 - 5.2 g/dL 11/15 2:27 AM [employer] [facility] Not Available Not Available 12/24/2024 17:32:29 11/15/19 25 11/15/2024 Renal funct ion 1999 panel - Serum or Plasm a phosphorus 4.4 mg/dL low: 2.5mg/ dLhigh : 4.5mg/ dL PHOSP HORUS 4.4 2.5 - 4.5 mg/dL 11/15 2:27 AM [facility] Not Available Not Available 12/24/2024 17:32:29 11/15/19 25 11/15/2024 Renal funct ion 1999 panel - Serum or Plasm a glomerular filtration rate/1.73 sq M.predicted [volume rate/area] in serum, plasma or blood by creatinine-b ased formula (CKD-epi 2020) 6 text: >=60 mL/min /1.73 sq meter low GFR 6 (L) >=60 mL/mi n/1.7 3 sq meter 11/15 2:27 AM [facility] Not Available Not Available 12/24/2024 17:32:29 11/15/19 25 11/15/2024 Renal funct ion 1999 panel - Serum or Plasm a anion gap 16 mmol/ L low: 8mmol/ Lhigh: 16mmol /L ANION GAP 16 8 - 16 mmol/ L 11/15 2:27 AM [facility] Not Available Not Available 12/24/2024 17:32:29 [...] 4.0 - 9.8 K/uL 11/15 2:35 AM [facility] ServicesSELECT [facility] Not Available Not Available 12/24/2024 17:32:29 11/15/19 25 11/15/2024 CBC W Auto Diffe renti al panel - Blood RBC 2.23 text: 4.50 - 5.40 M/uL low RBC 2.23 (L) 4.50 - 5.40 M/uL 11/15 2:35 AM [employer] [facility] Not Available Not Available 12/24/2024 17:32:29 11/15/19 25 11/15/2024 CBC W Auto Diffe renti al panel - Blood hemoglobin 7.6 g/dL low: 13.6g/ dLhigh : 16.5g/ dL low HEMOG LOBIN 7.6 (L) 13.6 - 16.5 g/dL 11/15 2:35 AM [facility] LabsIvonne [facility] Not Available Not Available 12/24/2024 17:32:29 11/15/19 25 11/15/2024 CBC W Auto Diffe renti al panel - Blood hematocrit [volume fraction] of blood by automated count 23.9 % low: 40%hig h: 48% low HEMAT OCRIT 23.9 (L) 40.0 - 48.0 % 11/15 2:35 AM [facility] LabsIvonne [facility] Not Available Not Available 12/24/2024 17:32:29 11/15/19 25 11/15/2024 CBC W Auto Diffe renti al panel - Blood MCV 107.2 fL low: 82fLhi gh: 99fL high MCV 107.2 (H) 82.0 - 99.0 fL 11/15 2:35 AM [facility]Ivon[facility] Not Available Not Available 12/24/2024 17:32:29 11/15/19 25 11/15/2024 CBC W Auto Diffe renti al panel - Blood MCH 34.1 pg low: 27.2pg high: 32.6pg high MCH 34.1 (H) 27.2 - 32.6 pg 11/15 2:35 AM [facility] Not Available Not Available 12/24/2024 17:32:29 11/15/19 25 11/15/2024 CBC W Auto Diffe renti al panel - Blood MCHC 31.8 g/dL low: 31.5g/ dLhigh : 35.5g/ dL MCHC 31.8 31.5 - 35.5 g/dL 11/15 2:35 AM [employer] [facility] Not Available Not Available 12/24/2024 17:32:29 11/15/19 25 11/15/2024 CBC W Auto Diffe renti al panel - Blood RDW 14.9 % low: 11.5%h igh: 14.5% high RDW 14.9 (H) 11.5 - 14.5 % 11/15 2:35 AM 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 [employer] [facility] Not Available Not Available 12/24/2024 17:32:29 11/15/19 25 11/15/2024 CBC W Auto Diffe renti al panel - Blood RDW-stdev 58.8 fL low: 37.1fL high: 48.7fL high RDW-S TDEV 58.8 (H) 37.1 - 48.7 fL 11/15 2:35 AM 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 [employer] [facility] Not Available Not Available 12/24/2024 17:32:29 11/15/19 25 11/15/2024 CBC W Auto Diffe renti al panel - Blood platelets [#/volume] in blood by automated count 391 K/uL low: 140K/u Lhigh: 350K/u L high PLATE LETS 391 (H) 140 - 350 K/uL 11/15 2:35 AM 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 [employer] [facility] Not Available Not Available 12/24/2024 17:32:29 11/15/19 25 11/15/2024 CBC W Auto Diffe renti al panel - Blood MPV 9.8 fL low: 9.3fLh igh: 12.4fL MPV 9.8 9.3 - 12.4 fL 11/15 2:35 AM [employer] [facility] Not Available Not Available 12/24/2024 17:32:29 11/15/19 25 11/15/2024 CBC W Auto Diffe renti al panel - Blood neutrophils 81 % NEUTR OPHIL S 81 % 11/15 2:35 AM [employer] [facility] Not Available Not Available 12/24/2024 17:32:29 11/15/19 25 11/15/2024 CBC W Auto Diffe renti al panel - Blood lymphocytes/ 100 leukocytes in blood by automated count 7 % LYMPH OCYTE S 7 % 11/15 2:35 AM [employer] [facility] Not Available Not Available 12/24/2024 17:32:29 11/15/19 25 11/15/2024 CBC W Auto Diffe renti al panel - Blood monocytes 8 % MONOC YTES 8 % 11/15 2:35 AM 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 [employer] [facility] Not Available Not Available 12/24/2024 17:32:29 11/15/19 25 11/15/2024 CBC W Auto Diffe renti al panel - Blood eosinophils 2 % EOSIN OPHIL S 2 % 11/15 2:35 AM 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 [employer] [facility] Not Available Not Available 12/24/2024 17:32:29 11/15/19 25 11/15/2024 CBC W Auto Diffe renti al panel - Blood basophils 1 % BASOP HILS 1 % 11/15 2:35 AM [employer] [facility] Not Available Not Available 12/24/2024 17:32:29 11/15/19 25 11/15/2024 CBC W Auto Diffe renti al panel - Blood immature granulocytes 1 % IMMAT URE GRANU LOCYT ES 1 % 11/15 2:35 AM 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 [employer] [facility] Not Available Not Available 12/24/2024 17:32:29 11/15/19 25 11/15/2024 CBC W Auto Diffe renti al panel - Blood neutrophils [#/volume] in blood by automated count 9.37 K/uL low: 1.9K/u Lhigh: 7K/uL high NEUTR OPHIL ABSOL [place] 9.37 (H) 1.90 - 7.00 K/uL 11/15 2:35 AM [employer] [facility] Not Available Not Available 12/24/2024 17:32:29 11/15/19 25 11/15/2024 CBC W Auto Diffe renti al panel - Blood lymphocyte absolute 0.82 K/uL low: 0.7K/u Lhigh: 4.5K/u L LYMPH OCYTE ABSOL [place] 0.82 0.70 - 4.50 K/uL 11/15 2:35 AM [employer] [facility] Not Available Not Available 12/24/2024 17:32:29 11/15/19 25 11/15/2024 CBC W Auto Diffe renti al panel - Blood monocyte absolute 0.94 K/uL low: 0.1K/u Lhigh: 1.3K/u L MONOC YTE ABSOL [place] 0.94 0.10 - 1.30 K/uL 11/15 2:35 AM [employer] [facility] Not Available Not Available 12/24/2024 17:32:29 11/15/19 25 11/15/2024 CBC W Auto Diffe renti al panel - Blood eosinophil absolute 0.23 K/uL low: 0K/uLh igh: 0.7K/u L EOSIN OPHIL ABSOL [place] 0.23 0.00 - 0.70 K/uL 11/15 2:35 AM [employer] [facility] Not Available Not Available 12/24/2024 17:32:29 11/15/19 25 11/15/2024 CBC W Auto Diffe renti al panel - Blood basophils absolute 0.07 K/uL low: 0K/uLh igh: 0.2K/u L BASOP HILS ABSOL [place] 0.07 0.00 - 0.20 K/uL 11/15 2:35 AM [employer] [facility] Not Available Not Available 12/24/2024 17:32:29 11/15/19 25 11/15/2024 CBC W Auto Diffe renti al panel - Blood immature granulocytes absolute 0.09 K/uL low: 0K/uLh igh: 0.03K/ uL high IMMAT URE GRANU LOCYT ES ABSOL [place] 0.09 (H) 0.00 - 0.03 K/uL 11/15 2:35 AM [employer] [facility] Not Available Not Available 12/24/2024 [...] VE Non-r eacti ve 11/15 6:48 PM 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 [employer] Not Available Not Available 12/24/2024 17:32:07 [...] - 145 mmol/ L 11/16 7:04 AM 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 [employer] [facility] Not Available Not Available 12/24/2024 17:32:29 11/16/19 25 11/16/2024 Renal funct ion 1999 panel - Serum or Plasm a potassium [moles/volum e] in serum or plasma 4.3 mmol/ L low: 3.4mmo l/Lhig h: 5.1mmo l/L POTAS SIUM 4.3 3.4 - 5.1 mmol/ L 11/16 7:04 AM 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 [employer] [facility] Not Available Not Available 12/24/2024 17:32:29 11/16/19 25 11/16/2024 Renal funct ion 1999 panel - Serum or Plasm a chloride 100 mmol/ L low: 98mmol /Lhigh : 107mmo l/L CHLOR BURT 100 98 - 107 mmol/ L 11/16 7:04 AM 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 Not Available Not Available 12/24/2024 17:32:29 11/16/19 25 11/16/2024 Renal funct ion 1999 panel - Serum or Plasm a calcium 9.5 mg/dL low: 8.6mg/ dLhigh : 10.4mg /dL CALCI UM 9.5 8.6 - 10.4 mg/dL 11/16 7:04 AM [facility] Not Available Not Available 12/24/2024 17:32:29 11/16/19 25 11/16/2024 Renal funct ion 1999 panel - Serum or Plasm a BUN 31 mg/dL low: 6mg/dL high: 20mg/d L high BUN 31 (H) 6 - 20 mg/dL 11/16 7:04 AM [employer] [facility] Not Available Not Available 12/24/2024 17:32:29 11/16/19 25 11/16/2024 Renal funct ion 1999 panel - Serum or Plasm a creatinine [mass/volume ] in serum or plasma 5.56 mg/dL low: 0.67mg /dLhig h: 1.17mg /dL high CREAT ININE 5.56 (H) 0.67 - 1.17 mg/dL 11/16 7:04 AM [employer] [facility] Not Available Not Available 12/24/2024 17:32:29 11/16/19 25 11/16/2024 Renal funct ion 1999 panel - Serum or Plasm a glucose [mass/volume ] in serum or plasma 98 mg/dL low: 74mg/d Lhigh: 99mg/d L GLUCO SE 98 74 - 99 mg/dL 11/16 7:04 AM [facility] Not Available Not Available 12/24/2024 17:32:29 11/16/19 25 11/16/2024 Renal funct ion 1999 panel - Serum or Plasm a albumin 3 g/dL low: 3.5g/d Lhigh: 5.2g/d L low ALBUM IN 3.0 (L) 3.5 - 5.2 g/dL 11/16 7:04 AM [employer] [facility] Not Available Not Available 12/24/2024 17:32:29 11/16/19 25 11/16/2024 Renal funct ion 1999 panel - Serum or Plasm a phosphorus 3.7 mg/dL low: 2.5mg/ dLhigh : 4.5mg/ dL PHOSP HORUS 3.7 2.5 - 4.5 mg/dL 11/16 7:04 AM [employer] [facility] Not Available Not Available 12/24/2024 17:32:29 11/16/19 25 11/16/2024 Renal funct ion 1999 panel - Serum or Plasm a glomerular filtration rate/1.73 sq M.predicted [volume rate/area] in serum, plasma or blood by creatinine-b ased formula (CKD-epi 2020) 11 text: >=60 mL/min /1.73 sq meter low GFR 11 (L) >=60 mL/mi n/1.7 3 sq meter 11/16 7:04 AM [facility] [place] [place] Not Available Not Available 12/24/2024 17:32:29 11/16/19 25 11/16/2024 Renal funct ion 1999 panel - Serum or Plasm a anion gap 14 mmol/ L low: 8mmol/ Lhigh: 16mmol /L ANION GAP 14 8 - 16 mmol/ L 11/16 7:04 AM [employer] [facility] Not Available Not Available 12/24/2024 [...] - 145 mmol/ L 11/17 11:05 AM [facility] Not Available Not Available 12/24/2024 17:32:29 11/17/19 25 11/17/2024 Renal funct ion 1999 panel - Serum or Plasm a potassium [moles/volum e] in serum or plasma 4.6 mmol/ L low: 3.4mmo l/Lhig h: 5.1mmo l/L POTAS SIUM 4.6 3.4 - 5.1 mmol/ L 11/17 11:05 AM [facility] Not Available Not Available 12/24/2024 17:32:29 11/17/19 25 11/17/2024 Renal funct ion 1999 panel - Serum or Plasm a chloride 98 mmol/ L low: 98mmol /Lhigh : 107mmo l/L CHLOR BURT 98 98 - 107 mmol/ L 11/17 11:05 AM [employer] [facility] Not Available Not Available 12/24/2024 17:32:29 11/17/19 25 11/17/2024 Renal funct ion 1999 panel - Serum or Plasm a carbon dioxide, total [moles/volum e] in serum or plasma 18 mmol/ L low: 22mmol /Lhigh : 29mmol /L low CO2 18 (L) 22 - 29 mmol/ L 11/17 11:05 AM [facility] Not Available Not Available 12/24/2024 17:32:29 11/17/19 25 11/17/2024 Renal funct ion 1999 panel - Serum or Plasm a calcium 9.7 mg/dL low: 8.6mg/ dLhigh : 10.4mg /dL CALCI UM 9.7 8.6 - 10.4 mg/dL 11/17 11:05 AM [facility] Not Available Not Available 12/24/2024 17:32:29 11/17/19 25 11/17/2024 Renal funct ion 1999 panel - Serum or Plasm a BUN 31 mg/dL low: 6mg/dL high: 20mg/d L high BUN 31 (H) 6 - 20 mg/dL 11/17 11:05 AM [facility] ServicesSELECT [facility] Not Available Not Available 12/24/2024 17:32:29 11/17/19 25 11/17/2024 Renal funct ion 1999 panel - Serum or Plasm a creatinine [mass/volume ] in serum or plasma 5.92 mg/dL low: 0.67mg /dLhig h: 1.17mg /dL high CREAT ININE 5.92 (H) 0.67 - 1.17 mg/dL 11/17 11:05 AM [facility] Not Available Not Available 12/24/2024 17:32:29 11/17/19 25 11/17/2024 Renal funct ion 1999 panel - Serum or Plasm a glucose [mass/volume ] in serum or plasma 102 mg/dL low: 74mg/d Lhigh: 99mg/d L high GLUCO SE 102 (H) 74 - 99 mg/dL 11/17 11:05 AM [facility] Not Available Not Available 12/24/2024 17:32:29 11/17/19 25 11/17/2024 Renal funct ion 1999 panel - Serum or Plasm a albumin 3 g/dL low: 3.5g/d Lhigh: 5.2g/d L low ALBUM IN 3.0 (L) 3.5 - 5.2 g/dL 11/17 11:05 AM [employer] Not Available Not Available 12/24/2024 17:32:29 11/17/19 25 11/17/2024 Renal funct ion 1999 panel - Serum or Plasm a phosphorus 4 mg/dL low: 2.5mg/ dLhigh : 4.5mg/ dL PHOSP HORUS 4.0 2.5 - 4.5 mg/dL 11/17 11:05 AM [employer] [facility] Not Available Not Available 12/24/2024 17:32:29 11/17/19 25 11/17/2024 Renal funct ion 1999 panel - Serum or Plasm a glomerular filtration rate/1.73 sq M.predicted [volume rate/area] in serum, plasma or blood by creatinine-b ased formula (CKD-epi 2020) 10 text: >=60 mL/min /1.73 sq meter low GFR 10 (L) >=60 mL/mi n/1.7 3 sq meter 11/17 11:05 AM [facility] ServicesSELECT [facility] Not Available Not Available 12/24/2024 17:32:29 11/17/19 25 11/17/2024 Renal funct ion 1999 panel - Serum or Plasm a anion gap 17 mmol/ L low: 8mmol/ Lhigh: 16mmol /L high ANION GAP 17 (H) 8 - 16 mmol/ L 11/17 11:05 AM [facility] Not Available Not Available 12/24/2024 17:32:29 [...] 4.0 - 9.8 K/uL 11/17 10:37 AM [facility] Not Available Not Available 12/24/2024 17:32:29 11/17/19 25 11/17/2024 CBC W Auto Diffe renti al panel - Blood RBC 2.37 text: 4.50 - 5.40 M/uL low RBC 2.37 (L) 4.50 - 5.40 M/uL 11/17 10:37 AM [facility]iology ServicesSELECT 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 Not Available Not Available 12/24/2024 17:32:29 11/17/19 25 11/17/2024 CBC W Auto Diffe renti al panel - Blood hematocrit [volume fraction] of blood by automated count 26.3 % low: 40%hig h: 48% low HEMAT OCRIT 26.3 (L) 40.0 - 48.0 % 11/17 10:37 AM [facility]iology ServicesSELECT [facility] Not Available Not Available 12/24/2024 17:32:29 11/17/19 25 11/17/2024 CBC W Auto Diffe renti al panel - Blood MCV 111 fL low: 82fLhi gh: 99fL high MCV 111.0 (H) 82.0 - 99.0 fL 11/17 10:37 AM [facility] ServicesSELECT [facility] Not Available Not Available 12/24/2024 17:32:29 11/17/19 25 11/17/2024 CBC W Auto Diffe renti al panel - Blood MCH 34.2 pg low: 27.2pg high: 32.6pg high MCH 34.2 (H) 27.2 - 32.6 pg 11/17 10:37 AM [facility] Not Available Not Available 12/24/2024 17:32:29 11/17/19 25 11/17/2024 CBC W Auto Diffe renti al panel - Blood MCHC 30.8 g/dL low: 31.5g/ dLhigh : 35.5g/ dL low MCHC 30.8 (L) 31.5 - 35.5 g/dL 11/17 10:37 AM [facility] Not Available Not Available 12/24/2024 17:32:29 11/17/19 25 11/17/2024 CBC W Auto Diffe renti al panel - Blood RDW 15.3 % low: 11.5%h igh: 14.5% high RDW 15.3 (H) 11.5 - 14.5 % 11/17 10:[address] [facility] Not Available Not Available 12/24/2024 17:32:29 11/17/19 25 11/17/2024 CBC W Auto Diffe renti al panel - Blood RDW-stdev 61.9 fL low: 37.1fL high: 48.7fL high RDW-S TDEV 61.9 (H) 37.1 - 48.7 fL 11/17 10:37 AM [facility] Not Available Not Available 12/24/2024 17:32:29 11/17/19 25 11/17/2024 CBC W Auto Diffe renti al panel - Blood platelets [#/volume] in blood by automated count 395 K/uL low: 140K/u Lhigh: 350K/u L high PLATE LETS 395 (H) 140 - 350 K/uL 11/17 10:37 AM [employer] [facility] [employer] Not Available Not Available 12/24/2024 17:32:29 11/17/19 25 11/17/2024 CBC W Auto Diffe renti al panel - Blood MPV 9.7 fL low: 9.3fLh igh: 12.4fL MPV 9.7 9.3 - 12.4 fL 11/17 10:37 AM [facility] Not Available Not Available 12/24/2024 17:32:29 11/17/19 25 11/17/2024 CBC W Auto Diffe renti al panel - Blood neutrophils 78 % NEUTR OPHIL S 78 % 11/17 10:37 AM [facility] Not Available Not Available 12/24/2024 17:32:29 11/17/19 25 11/17/2024 CBC W Auto Diffe renti al panel - Blood lymphocytes/ 100 leukocytes in blood by automated count 9 % LYMPH OCYTE S 9 % 11/17 10:37 AM [employer] [facility] Not Available Not Available 12/24/2024 17:32:29 11/17/19 25 11/17/2024 CBC W Auto Diffe renti al panel - Blood monocytes 10 % MONOC YTES 10 % 11/17 10:37 AM [employer] [facility] Not Available Not Available 12/24/2024 17:32:29 11/17/19 25 11/17/2024 CBC W Auto Diffe renti al panel - Blood eosinophils 2 % EOSIN OPHIL S 2 % 11/17 10:37 AM [employer] [facility] Not Available Not Available 12/24/2024 17:32:29 11/17/19 25 11/17/2024 CBC W Auto Diffe renti al panel - Blood basophils 1 % BASOP HILS 1 % 11/17 10:37 AM [employer] [facility] Not Available Not Available 12/24/2024 17:32:29 11/17/19 25 11/17/2024 CBC W Auto Diffe renti al panel - Blood immature granulocytes 1 % IMMAT URE GRANU LOCYT ES 1 % 11/17 10:37 AM [employer] [facility] Not Available Not Available 12/24/2024 17:32:29 11/17/19 25 11/17/2024 CBC W Auto Diffe renti al panel - Blood neutrophils [#/volume] in blood by automated count 6.29 K/uL low: 1.9K/u Lhigh: 7K/uL NEUTR OPHIL ABSOL [place] 6.29 1.90 - 7.00 K/uL 11/17 10:37 AM [employer] [facility] Not Available Not Available 12/24/2024 17:32:29 11/17/19 25 11/17/2024 CBC W Auto Diffe renti al panel - Blood lymphocyte absolute 0.7 K/uL low: 0.7K/u Lhigh: 4.5K/u L LYMPH OCYTE ABSOL [place] 0.70 0.70 - 4.50 K/uL 11/17 10:37 AM [employer] [facility] Not Available Not Available 12/24/2024 17:32:29 11/17/19 25 11/17/2024 CBC W Auto Diffe renti al panel - Blood monocyte absolute 0.84 K/uL low: 0.1K/u Lhigh: 1.3K/u L MONOC YTE ABSOL [place] 0.84 0.10 - 1.30 K/uL 11/17 10:37 AM [employer] [facility] Not Available Not Available 12/24/2024 17:32:29 11/17/19 25 11/17/2024 CBC W Auto Diffe renti al panel - Blood eosinophil absolute 0.19 K/uL low: 0K/uLh igh: 0.7K/u L EOSIN OPHIL ABSOL [place] 0.19 0.00 - 0.70 K/uL 11/17 10:37 AM [facility] [place] [place] Not Available Not Available 12/24/2024 17:32:29 11/17/19 25 11/17/2024 CBC W Auto Diffe renti al panel - Blood basophils absolute 0.05 K/uL low: 0K/uLh igh: 0.2K/u L BASOP HILS ABSOL [place] 0.05 0.00 - 0.20 K/uL 11/17 10:37 AM [employer] [facility] Not Available Not Available 12/24/2024 17:32:29 11/17/19 25 11/17/2024 CBC W Auto Diffe renti al panel - Blood immature granulocytes absolute 0.06 K/uL low: 0K/uLh igh: 0.03K/ uL high IMMAT URE GRANU LOCYT ES ABSOL [place] 0.06 (H) 0.00 - 0.03 K/uL 11/17 10:37 AM [employer] [facility] Not Available Not Available 12/24/2024 [...] - 145 mmol/ L 11/18 1:00 PM [facility] Not Available Not Available 12/24/2024 17:32:29 11/18/19 25 11/18/2024 Renal funct ion 1999 panel - Serum or Plasm a potassium [moles/volum e] in serum or plasma 4.8 mmol/ L low: 3.4mmo l/Lhig h: 5.1mmo l/L POTAS SIUM 4.8 3.4 - 5.1 mmol/ L 11/18 1:00 PM [employer] [facility] Not Available Not Available 12/24/2024 17:32:29 11/18/19 25 11/18/2024 Renal funct ion 1999 panel - Serum or Plasm a chloride 97 mmol/ L low: 98mmol /Lhigh : 107mmo l/L low [place]URT 97 (L) 98 - 107 mmol/ L 11/18 1:00 PM [employer] [facility] Not Available Not Available 12/24/2024 17:32:29 11/18/19 25 11/18/2024 Renal funct ion 1999 panel - Serum or Plasm a carbon dioxide, total [moles/volum e] in serum or plasma 19 mmol/ L low: 22mmol /Lhigh : 29mmol /L low CO2 19 (L) 22 - 29 mmol/ L 11/18 1:00 PM [facility] Not Available Not Available 12/24/2024 17:32:29 11/18/19 25 11/18/2024 Renal funct ion 1999 panel - Serum or Plasm a calcium 9.7 mg/dL low: 8.6mg/ dLhigh : 10.4mg /dL CALCI UM 9.7 8.6 - 10.4 mg/dL 11/18 1:00 PM [employer] [facility] Not Available Not Available 12/24/2024 17:32:29 11/18/19 25 11/18/2024 Renal funct ion 1999 panel - Serum or Plasm a BUN 48 mg/dL low: 6mg/dL high: 20mg/d L high BUN 48 (H) 6 - 20 mg/dL 11/18 1:00 PM [facility] [place] Not Available Not Available 12/24/2024 17:32:29 11/18/19 25 11/18/2024 Renal funct ion 1999 panel - Serum or Plasm a creatinine [mass/volume ] in serum or plasma 7.68 mg/dL low: 0.67mg /dLhig h: 1.17mg /dL high CREAT ININE 7.68 (H) 0.67 - 1.17 mg/dL 11/18 1:00 PM [facility] [place] Not Available Not Available 12/24/2024 17:32:29 11/18/19 25 11/18/2024 Renal funct ion 1999 panel - Serum or Plasm a glucose [mass/volume ] in serum or plasma 111 mg/dL low: 74mg/d Lhigh: 99mg/d L high GLUCO SE 111 (H) 74 - 99 mg/dL 11/18 1:00 PM 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 [facility] [place] Not Available Not Available 12/24/2024 17:32:29 11/18/19 25 11/18/2024 Renal funct ion 1999 panel - Serum or Plasm a albumin 3.2 g/dL low: 3.5g/d Lhigh: 5.2g/d L low ALBUM IN 3.2 (L) 3.5 - 5.2 g/dL 11/18 1:00 PM 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 [facility] [place] Not Available Not Available 12/24/2024 17:32:29 11/18/19 25 11/18/2024 Renal funct ion 1999 panel - Serum or Plasm a phosphorus 4.7 mg/dL low: 2.5mg/ dLhigh : 4.5mg/ dL high PHOSP HORUS 4.7 (H) 2.5 - 4.5 mg/dL 11/18 1:00 PM [employer] [facility] Not Available Not Available 12/24/2024 17:32:29 11/18/19 25 11/18/2024 Renal funct ion 1999 panel - Serum or Plasm a glomerular filtration rate/1.73 sq M.predicted [volume rate/area] in serum, plasma or blood by creatinine-b ased formula (CKD-epi 2020) 7 text: >=60 mL/min /1.73 sq meter low GFR 7 (L) >=60 mL/mi n/1.7 3 sq meter 11/18 1:00 PM [employer] [facility] Not Available Not Available 12/24/2024 17:32:29 11/18/19 25 11/18/2024 Renal funct ion 1999 panel - Serum or Plasm a anion gap 15 mmol/ L low: 8mmol/ Lhigh: 16mmol /L ANION GAP 15 8 - 16 mmol/ L 11/18 1:00 PM [employer] [facility] Not Available Not Available 12/24/2024 [...] 4.0 - 9.8 K/uL 11/19 3:01 PM [employer] [facility] Not Available Not Available 12/24/2024 17:32:30 11/19/19 25 11/19/2024 CBC W Auto Diffe renti al panel - Blood RBC 2.28 text: 4.50 - 5.40 M/uL low RBC 2.28 (L) 4.50 - 5.40 M/uL 11/19 3:01 PM [employer] [facility] Not Available Not Available 12/24/2024 17:32:30 11/19/19 25 11/19/2024 CBC W Auto Diffe renti al panel - Blood hemoglobin 7.9 g/dL low: 13.6g/ dLhigh : 16.5g/ dL low HEMOG LOBIN 7.9 (L) 13.6 - 16.5 g/dL 11/19 3:01 PM [facility] [employer] [facility] Not Available Not Available 12/24/2024 17:32:30 11/19/19 25 11/19/2024 CBC W Auto Diffe renti al panel - Blood hematocrit [volume fraction] of blood by automated count 24.8 % low: 40%hig h: 48% low HEMAT OCRIT 24.8 (L) 40.0 - 48.0 % 11/19 3:01 PM [facility] [employer] [facility] Not Available Not Available 12/24/2024 17:32:30 11/19/19 25 11/19/2024 CBC W Auto Diffe renti al panel - Blood MCV 108.8 fL low: 82fLhi gh: 99fL high MCV 108.8 (H) 82.0 - 99.0 fL 11/19 3:01 PM [facility] [place] Not Available Not Available 12/24/2024 17:32:30 11/19/19 25 11/19/2024 CBC W Auto Diffe renti al panel - Blood MCH 34.6 pg low: 27.2pg high: 32.6pg high MCH 34.6 (H) 27.2 - 32.6 pg 11/19 3:01 PM [facility] [employer] [facility] Not Available Not Available 12/24/2024 17:32:30 11/19/19 25 11/19/2024 CBC W Auto Diffe renti al panel - Blood MCHC 31.9 g/dL low: 31.5g/ dLhigh : 35.5g/ dL MCHC 31.9 31.5 - 35.5 g/dL 11/19 3:01 PM [facility] [employer] [facility] Not Available Not Available 12/24/2024 17:32:30 11/19/19 25 11/19/2024 CBC W Auto Diffe renti al panel - Blood RDW 15.3 % low: 11.5%h igh: 14.5% high RDW 15.3 (H) 11.5 - 14.5 % 11/19 3:01 PM 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 [employer] [facility] Not Available Not Available 12/24/2024 17:32:30 11/19/19 25 11/19/2024 CBC W Auto Diffe renti al panel - Blood RDW-stdev 61.2 fL low: 37.1fL high: 48.7fL high RDW-S TDEV 61.2 (H) 37.1 - 48.7 fL 11/19 3:01 PM 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 [employer] Not Available Not Available 12/24/2024 17:32:30 11/19/19 25 11/19/2024 CBC W Auto Diffe renti al panel - Blood platelets [#/volume] in blood by automated count 389 K/uL low: 140K/u Lhigh: 350K/u L high PLATE LETS 389 (H) 140 - 350 K/uL 11/19 3:01 PM 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 [employer] [facility] Not Available Not Available 12/24/2024 17:32:30 11/19/19 25 11/19/2024 CBC W Auto Diffe renti al panel - Blood MPV 9.5 fL low: 9.3fLh igh: 12.4fL MPV 9.5 9.3 - 12.4 fL 11/19 3:01 PM 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 [employer] Not Available Not Available 12/24/2024 17:32:30 11/19/19 25 11/19/2024 CBC W Auto Diffe renti al panel - Blood neutrophils 74 % NEUTR OPHIL S 74 % 11/19 3:01 PM 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 [employer] Not Available Not Available 12/24/2024 17:32:30 11/19/19 25 11/19/2024 CBC W Auto Diffe renti al panel - Blood lymphocytes/ 100 leukocytes in blood by automated count 13 % LYMPH OCYTE S 13 % 11/19 3:01 PM 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 [facility] [place] Not Available Not Available 12/24/2024 17:32:30 11/19/19 25 11/19/2024 CBC W Auto Diffe renti al panel - Blood monocytes 9 % MONOC YTES 9 % 11/19 3:01 PM [facility] Not Available Not Available 12/24/2024 17:32:30 11/19/19 25 11/19/2024 CBC W Auto Diffe renti al panel - Blood eosinophils 3 % EOSIN OPHIL S 3 % 11/19 3:01 PM [facility] [employer] [facility] Not Available Not Available 12/24/2024 17:32:30 11/19/19 25 11/19/2024 CBC W Auto Diffe renti al panel - Blood basophils 1 % BASOP HILS 1 % 11/19 3:01 PM [facility] Not Available Not Available 12/24/2024 17:32:30 11/19/19 25 11/19/2024 CBC W Auto Diffe renti al panel - Blood immature granulocytes 1 % IMMAT URE GRANU LOCYT ES 1 % 11/19 3:01 PM [facility] [employer] [facility] Not Available Not Available 12/24/2024 17:32:30 11/19/19 25 11/19/2024 CBC W Auto Diffe renti al panel - Blood neutrophils [#/volume] in blood by automated count 5.09 K/uL low: 1.9K/u Lhigh: 7K/uL NEUTR OPHIL ABSOL [place] 5.09 1.90 - 7.00 K/uL 11/19 3:01 PM 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 [facility] [place] Not Available Not Available 12/24/2024 17:32:30 11/19/19 25 11/19/2024 CBC W Auto Diffe renti al panel - Blood lymphocyte absolute 0.9 K/uL low: 0.7K/u Lhigh: 4.5K/u L LYMPH OCYTE ABSOL [place] 0.90 0.70 - 4.50 K/uL 11/19 3:01 PM 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 [facility] [place] Not Available Not Available 12/24/2024 17:32:30 11/19/19 25 11/19/2024 CBC W Auto Diffe renti al panel - Blood monocyte absolute 0.6 K/uL low: 0.1K/u Lhigh: 1.3K/u L MONOC YTE ABSOL [place] 0.60 0.10 - 1.30 K/uL 11/19 3:01 PM 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 [facility] [place] Not Available Not Available 12/24/2024 17:32:30 11/19/19 25 11/19/2024 CBC W Auto Diffe renti al panel - Blood eosinophil absolute 0.19 K/uL low: 0K/uLh igh: 0.7K/u L EOSIN OPHIL ABSOL [place] 0.19 0.00 - 0.70 K/uL 11/19 3:01 PM [facility] [employer] [facility] Not Available Not Available 12/24/2024 17:32:30 11/19/19 25 11/19/2024 CBC W Auto Diffe renti al panel - Blood basophils absolute 0.05 K/uL low: 0K/uLh igh: 0.2K/u L BASOP HILS ABSOL [place] 0.05 0.00 - 0.20 K/uL 11/19 3:01 PM [facility] [employer] [facility] Not Available Not Available 12/24/2024 17:32:30 11/19/19 25 11/19/2024 CBC W Auto Diffe renti al panel - Blood immature granulocytes absolute 0.04 K/uL low: 0K/uLh igh: 0.03K/ uL high IMMAT URE GRANU LOCYT ES ABSOL [place] 0.04 (H) 0.00 - 0.03 K/uL 11/19 3:01 PM [facility] [employer] [facility] Not Available Not Available 12/24/2024 17:32:30 [...] - 145 mmol/ L 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 Not Available Not Available 12/24/2024 17:32:30 11/19/19 25 11/19/2024 Basic metab olic 1999 panel - Serum or Plasm a potassium [moles/volum e] in serum or plasma 4.8 mmol/ L low: 3.4mmo l/Lhig h: 5.1mmo l/L POTAS SIUM 4.8 3.4 - 5.1 mmol/ L 11/19 3:59 PM 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 [employer] Not Available Not Available 12/24/2024 17:32:30 11/19/19 25 11/19/2024 Basic metab olic 1999 panel - Serum or Plasm a chloride 103 mmol/ L low: 98mmol /Lhigh : 107mmo l/L [place] 103 98 - 107 mmol/ L 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 Not Available Not Available 12/24/2024 17:32:30 11/19/19 25 11/19/2024 Basic metab olic 1999 panel - Serum or Plasm a carbon dioxide, total [moles/volum e] in serum or plasma 23 mmol/ L low: 22mmol /Lhigh : 29mmol /L CO2 23 22 - 29 mmol/ L 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 Not Available Not Available 12/24/2024 17:32:30 11/19/19 25 11/19/2024 Basic metab olic 2000 panel - Serum or Plasm a calcium 9.4 mg/dL low: 8.6mg/ dLhigh : 10.4mg /dL CALCI UM 9.4 8.6 - 10.4 mg/dL 11/19 3:59 PM 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 Not Available Not Available 12/24/2024 17:32:30 11/19/19 25 11/19/2024 Basic metab olic 1999 panel - Serum or Plasm a BUN 31 mg/dL low: 6mg/dL high: 20mg/d L high BUN 31 (H) 6 - 20 mg/dL 11/19 3:59 PM 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 [employer] [facility] Not Available Not Available 12/24/2024 17:32:30 11/19/19 25 11/19/2024 Basic metab olic 1999 panel - Serum or Plasm a creatinine [mass/volume ] in serum or plasma 6.07 mg/dL low: 0.67mg /dLhig h: 1.17mg /dL high CREAT ININE 6.07 (H) 0.67 - 1.17 mg/dL 11/19 3:59 PM [employer] [facility] Not Available Not Available 12/24/2024 17:32:30 11/19/19 25 11/19/2024 Basic metab olic 1999 panel - Serum or Plasm a glucose [mass/volume ] in serum or plasma 104 mg/dL low: 74mg/d Lhigh: 99mg/d L high GLUCO SE 104 (H) 74 - 99 mg/dL 11/19 3:59 PM [facility] Not Available Not Available 12/24/2024 17:32:30 11/19/19 25 11/19/2024 Basic metab olic 2000 panel - Serum or Plasm a glomerular filtration rate/1.73 sq M.predicted [volume rate/area] in serum, plasma or blood by creatinine-b ased formula (CKD-epi 2020) 10 text: >=60 mL/min /1.73 sq meter low GFR 10 (L) >=60 mL/mi n/1.7 3 sq meter 11/19 3:59 PM 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 Not Available Not Available 12/24/2024 17:32:30 11/19/19 25 11/19/2024 Basic metab olic 2000 panel - Serum or Plasm a anion gap 10 mmol/ L low: 8mmol/ Lhigh: 16mmol /L ANION GAP 10 8 - 16 mmol/ L 11/19 3:59 PM 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 [employer] [facility] Not Available Not Available 12/24/2024 [...] - 145 mmol/ L 11/19 4:11 AM [employer] [facility] Not Available Not Available 12/24/2024 17:32:30 11/19/19 25 11/19/2024 Renal funct ion 1999 panel - Serum or Plasm a potassium [moles/volum e] in serum or plasma 5.4 mmol/ L low: 3.4mmo l/Lhig h: 5.1mmo l/L high POTAS SIUM 5.4 (H) 3.4 - 5.1 mmol/ L 11/19 4:11 AM [employer] [facility] Not Available Not Available 12/24/2024 17:32:30 11/19/19 25 11/19/2024 Renal funct ion 1999 panel - Serum or Plasm a chloride 100 mmol/ L low: 98mmol /Lhigh : 107mmo l/L [place] 100 98 - 107 mmol/ L 11/19 4:11 AM [employer] [facility] Not Available Not Available 12/24/2024 17:32:30 11/19/19 25 11/19/2024 Renal funct ion 1999 panel - Serum or Plasm a carbon dioxide, total [moles/volum e] in serum or plasma 19 mmol/ L low: 22mmol /Lhigh : 29mmol /L low CO2 19 (L) 22 - 29 mmol/ L 11/19 4:11 AM [facility] Not Available Not Available 12/24/2024 17:32:30 11/19/19 25 11/19/2024 Renal funct ion 1999 panel - Serum or Plasm a calcium 9.5 mg/dL low: 8.6mg/ dLhigh : 10.4mg /dL CALCI UM 9.5 8.6 - 10.4 mg/dL 11/19 4:11 AM [employer] [facility] Not Available Not Available 12/24/2024 17:32:30 11/19/19 25 11/19/2024 Renal funct ion 1999 panel - Serum or Plasm a BUN 58 mg/dL low: 6mg/dL high: 20mg/d L high BUN 58 (H) 6 - 20 mg/dL 11/19 4:11 AM [employer] [facility] Not Available Not Available 12/24/2024 17:32:30 11/19/19 25 11/19/2024 Renal funct ion 1999 panel - Serum or Plasm a creatinine [mass/volume ] in serum or plasma 9.54 mg/dL low: 0.67mg /dLhig h: 1.17mg /dL high CREAT ININE 9.54 (H) 0.67 - 1.17 mg/dL 11/19 4:11 AM [employer] [facility] Not Available Not Available 12/24/2024 17:32:30 11/19/19 25 11/19/2024 Renal funct ion 1999 panel - Serum or Plasm a glucose [mass/volume ] in serum or plasma 112 mg/dL low: 74mg/d Lhigh: 99mg/d L high GLUCO SE 112 (H) 74 - 99 mg/dL 11/19 4:11 AM [employer] [facility] Not Available Not Available 12/24/2024 17:32:30 11/19/19 25 11/19/2024 Renal funct ion 1999 panel - Serum or Plasm a albumin 3 g/dL low: 3.5g/d Lhigh: 5.2g/d L low ALBUM IN 3.0 (L) 3.5 - 5.2 g/dL 11/19 4:11 AM [employer] [facility] Not Available Not Available 12/24/2024 17:32:30 11/19/19 25 11/19/2024 Renal funct ion 1999 panel - Serum or Plasm a phosphorus 4.8 mg/dL low: 2.5mg/ dLhigh : 4.5mg/ dL high PHOSP HORUS 4.8 (H) 2.5 - 4.5 mg/dL 11/19 4:11 AM [employer] [facility] Not Available Not Available 12/24/2024 17:32:30 11/19/1911/19/2024 Renal funct ion 1999 panel - Serum or Plasm a glomerular filtration rate/1.73 sq M.predicted [volume rate/area] in serum, plasma or blood by creatinine-b ased formula (CKD-epi 2020) 6 text: >=60 mL/min /1.73 sq meter low GFR 6 (L) >=60 mL/mi n/1.7 3 sq meter 11/19 4:11 AM [employer] [facility] Not Available Not Available 12/24/2024 17:32:30 11/19/1911/19/2024 Renal funct ion 2000 panel - Serum or Plasm a anion gap 10 mmol/ L low: 8mmol/ Lhigh: 16mmol /L ANION GAP 10 8 - 16 mmol/ L 11/19 4:11 AM [employer] [facility] Not Available Not Available 12/24/2024 [...] 4.0 - 9.8 K/uL 11/19 3:41 AM [employer] [facility] Not Available Not Available 12/24/2024 17:32:30 11/19/19 25 11/19/2024 CBC W Auto Diffe renti al panel - Blood RBC 2.17 text: 4.50 - 5.40 M/uL low RBC 2.17 (L) 4.50 - 5.40 M/uL 11/19 3:41 AM [employer] [facility] Not Available Not Available 12/24/2024 17:32:30 11/19/19 25 11/19/2024 CBC W Auto Diffe renti al panel - Blood hemoglobin 7.3 g/dL low: 13.6g/ dLhigh : 16.5g/ dL low HEMOG LOBIN 7.3 (L) 13.6 - 16.5 g/dL 11/19 3:41 AM [employer] [facility] Not Available Not Available 12/24/2024 17:32:30 11/19/1911/19/2024 CBC W Auto Diffe renti al panel - Blood hematocrit [volume fraction] of blood by automated count 23.3 % low: 40%hig h: 48% low HEMAT OCRIT 23.3 (L) 40.0 - 48.0 % 11/19 3:41 AM [employer] [facility] Not Available Not Available 12/24/2024 17:32:30 11/19/19 25 11/19/2024 CBC W Auto Diffe renti al panel - Blood MCV 107.4 fL low: 82fLhi gh: 99fL high MCV 107.4 (H) 82.0 - 99.0 fL 11/19 3:41 AM [employer] [facility] Not Available Not Available 12/24/2024 17:32:30 11/19/19 25 11/19/2024 CBC W Auto Diffe renti al panel - Blood MCH 33.6 pg low: 27.2pg high: 32.6pg high MCH 33.6 (H) 27.2 - 32.6 pg 11/19 3:41 AM [facility] Not Available Not Available 12/24/2024 17:32:30 11/19/19 25 11/19/2024 CBC W Auto Diffe renti al panel - Blood MCHC 31.3 g/dL low: 31.5g/ dLhigh : 35.5g/ dL low MCHC 31.3 (L) 31.5 - 35.5 g/dL 11/19 3:41 AM [facility] Not Available Not Available 12/24/2024 17:32:30 11/19/19 25 11/19/2024 CBC W Auto Diffe renti al panel - Blood RDW 15.3 % low: 11.5%h igh: 14.5% high RDW 15.3 (H) 11.5 - 14.5 % 11/19 3:41 AM [facility] Not Available Not Available 12/24/2024 17:32:30 11/19/19 25 11/19/2024 CBC W Auto Diffe renti al panel - Blood RDW-stdev 60.8 fL low: 37.1fL high: 48.7fL high RDW-S TDEV 60.8 (H) 37.1 - 48.7 fL 11/19 3:41 AM [facility] Not Available Not Available 12/24/2024 17:32:30 11/19/19 25 11/19/2024 CBC W Auto Diffe renti al panel - Blood platelets [#/volume] in blood by automated count 385 K/uL low: 140K/u Lhigh: 350K/u L high PLATE LETS 385 (H) 140 - 350 K/uL 11/19 3:41 AM [employer] [facility] Not Available Not Available 12/24/2024 17:32:30 11/19/19 25 11/19/2024 CBC W Auto Diffe renti al panel - Blood MPV 9.7 fL low: 9.3fLh igh: 12.4fL MPV 9.7 9.3 - 12.4 fL 11/19 3:41 AM [employer] [facility] Not Available Not Available 12/24/2024 17:32:30 11/19/19 25 11/19/2024 CBC W Auto Diffe renti al panel - Blood neutrophils 77 % NEUTR OPHIL S 77 % 11/19 3:41 AM NICHOL KENNEDYUnata NOBLE [facility] Not Available Not Available 12/24/2024 17:32:30 11/19/19 25 11/19/2024 CBC W Auto Diffe renti al panel - Blood lymphocytes/ 100 leukocytes in blood by automated count 11 % LYMPH OCYTE S 11 % 11/19 3:41 AM [facility] Not Available Not Available 12/24/2024 17:32:30 11/19/19 25 11/19/2024 CBC W Auto Diffe renti al panel - Blood monocytes 9 % MONOC YTES 9 % 11/19 3:41 AM [facility] Not Available Not Available 12/24/2024 17:32:30 11/19/19 25 11/19/2024 CBC W Auto Diffe renti al panel - Blood eosinophils 3 % EOSIN OPHIL S 3 % 11/19 3:41 AM [facility] Not Available Not Available 12/24/2024 17:32:30 11/19/19 25 11/19/2024 CBC W Auto Diffe renti al panel - Blood basophils 1 % BASOP HILS 1 % 11/19 3:41 AM [facility] [place] Not Available Not Available 12/24/2024 17:32:30 11/19/19 25 11/19/2024 CBC W Auto Diffe renti al panel - Blood immature granulocytes 1 % IMMAT URE GRANU LOCYT ES 1 % 11/19 3:41 AM [facility] Not Available Not Available 12/24/2024 17:32:30 11/19/19 25 11/19/2024 CBC W Auto Diffe renti al panel - Blood neutrophils [#/volume] in blood by automated count 7.24 K/uL low: 1.9K/u Lhigh: 7K/uL high NEUTR OPHIL ABSOL [place] 7.24 (H) 1.90 - 7.00 K/uL 11/19 3:41 AM [facility] Not Available Not Available 12/24/2024 17:32:30 11/19/19 25 11/19/2024 CBC W Auto Diffe renti al panel - Blood lymphocyte absolute 1 K/uL low: 0.7K/u Lhigh: 4.5K/u L LYMPH OCYTE ABSOL [place] 1.00 0.70 - 4.50 K/uL 11/19 3:41 AM [facility] Not Available Not Available 12/24/2024 17:32:30 11/19/1911/19/2024 CBC W Auto Diffe renti al panel - Blood monocyte absolute 0.81 K/uL low: 0.1K/u Lhigh: 1.3K/u L MONOC YTE ABSOL [place] 0.81 0.10 - 1.30 K/uL 11/19 3:41 AM [facility] Not Available Not Available 12/24/2024 17:32:30 11/19/19 25 11/19/2024 CBC W Auto Diffe renti al panel - Blood eosinophil absolute 0.25 K/uL low: 0K/uLh igh: 0.7K/u L EOSIN OPHIL ABSOL [place] 0.25 0.00 - 0.70 K/uL 11/19 3:41 AM [facility] Not Available Not Available 12/24/2024 17:32:30 11/19/19 25 11/19/2024 CBC W Auto Diffe renti al panel - Blood basophils absolute 0.07 K/uL low: 0K/uLh igh: 0.2K/u L BASOP HILS ABSOL [place] 0.07 0.00 - 0.20 K/uL 11/19 3:41 AM [facility] Not Available Not Available 12/24/2024 17:32:30 11/19/19 25 11/19/2024 CBC W Auto Diffe renti al panel - Blood immature granulocytes absolute 0.06 K/uL low: 0K/uLh igh: 0.03K/ uL high IMMAT URE GRANU LOCYT ES ABSOL [place] 0.06 (H) 0.00 - 0.03 K/uL 11/19 3:41 AM [facility] Not Available Not Available 12/24/2024 [...] - 145 mmol/ L 11/20 4:43 AM [facility] Not Available Not Available 12/24/2024 17:32:30 11/20/19 25 11/20/2024 Renal funct ion 1999 panel - Serum or Plasm a potassium [moles/volum e] in serum or plasma 5.1 mmol/ L low: 3.4mmo l/Lhig h: 5.1mmo l/L POTAS SIUM 5.1 3.4 - 5.1 mmol/ L 11/20 4:43 AM [facility] [place] Not Available Not Available 12/24/2024 17:32:30 11/20/19 25 11/20/2024 Renal funct ion 1999 panel - Serum or Plasm a chloride 100 mmol/ L low: 98mmol /Lhigh : 107mmo l/L [place] 100 98 - 107 mmol/ L 11/20 4:43 AM [employer] [facility] Not Available Not Available 12/24/2024 17:32:30 11/20/19 25 11/20/2024 Renal funct ion 1999 panel - Serum or Plasm a carbon dioxide, total [moles/volum e] in serum or plasma 21 mmol/ L low: 22mmol /Lhigh : 29mmol /L low CO2 21 (L) 22 - 29 mmol/ L 11/20 4:43 AM [employer] [facility] Not Available Not Available 12/24/2024 17:32:30 11/20/19 25 11/20/2024 Renal funct ion 1999 panel - Serum or Plasm a calcium 9.4 mg/dL low: 8.6mg/ dLhigh : 10.4mg /dL CALCI UM 9.4 8.6 - 10.4 mg/dL 11/20 4:43 AM [employer] [facility] Not Available Not Available 12/24/2024 17:32:30 11/20/19 25 11/20/2024 Renal funct ion 1999 panel - Serum or Plasm a BUN 44 mg/dL low: 6mg/dL high: 20mg/d L high BUN 44 (H) 6 - 20 mg/dL 11/20 4:43 AM [employer] [facility] Not Available Not Available 12/24/2024 17:32:30 11/20/19 25 11/20/2024 Renal funct ion 1999 panel - Serum or Plasm a creatinine [mass/volume ] in serum or plasma 6.32 mg/dL low: 0.67mg /dLhig h: 1.17mg /dL high CREAT ININE 6.32 (H) 0.67 - 1.17 mg/dL 11/20 4:43 AM [employer] [facility] Not Available Not Available 12/24/2024 17:32:30 11/20/19 25 11/20/2024 Renal funct ion 1999 panel - Serum or Plasm a glucose [mass/volume ] in serum or plasma 104 mg/dL low: 74mg/d Lhigh: 99mg/d L high GLUCO SE 104 (H) 74 - 99 mg/dL 11/20 4:43 AM [employer] [facility] Not Available Not Available 12/24/2024 17:32:30 11/20/19 25 11/20/2024 Renal funct ion 1999 panel - Serum or Plasm a albumin 3.1 g/dL low: 3.5g/d Lhigh: 5.2g/d L low ALBUM IN 3.1 (L) 3.5 - 5.2 g/dL 11/20 4:43 AM [employer] [facility] Not Available Not Available 12/24/2024 17:32:30 11/20/19 25 11/20/2024 Renal funct ion 1999 panel - Serum or Plasm a phosphorus 3.8 mg/dL low: 2.5mg/ dLhigh : 4.5mg/ dL PHOSP HORUS 3.8 2.5 - 4.5 mg/dL 11/20 4:43 AM [employer] [facility] Not Available Not Available 12/24/2024 17:32:30 11/20/19 25 11/20/2024 Renal funct ion 1999 panel - Serum or Plasm a glomerular filtration rate/1.73 sq M.predicted [volume rate/area] in serum, plasma or blood by creatinine-b ased formula (CKD-epi 2020) 9 text: >=60 mL/min /1.73 sq meter low GFR 9 (L) >=60 mL/mi n/1.7 3 sq meter 11/20 4:43 AM [employer] [facility] Not Available Not Available 12/24/2024 17:32:30 11/20/19 25 11/20/2024 Renal funct ion 1999 panel - Serum or Plasm a anion gap 12 mmol/ L low: 8mmol/ Lhigh: 16mmol /L ANION GAP 12 8 - 16 mmol/ L 11/20 4:43 AM [employer] [facility] Not Available Not Available 12/24/2024 [...] 4.0 - 9.8 K/uL 11/20 4:22 AM [employer] [facility] Not Available Not Available 12/24/2024 17:32:30 11/20/19 25 11/20/2024 CBC W Auto Diffe renti al panel - Blood RBC 2.34 text: 4.50 - 5.40 M/uL low RBC 2.34 (L) 4.50 - 5.40 M/uL 11/20 4:22 AM [employer] [facility] Not Available Not Available 12/24/2024 17:32:30 11/20/1911/20/2024 CBC W Auto Diffe renti al panel - Blood hemoglobin 8 g/dL low: 13.6g/ dLhigh : 16.5g/ dL low HEMOG LOBIN 8.0 (L) 13.6 - 16.5 g/dL 11/20 4:22 AM [employer] [facility] Not Available Not Available 12/24/2024 17:32:30 11/20/19 25 11/20/2024 CBC W Auto Diffe renti al panel - Blood hematocrit [volume fraction] of blood by automated count 25.4 % low: 40%hig h: 48% low HEMAT OCRIT 25.4 (L) 40.0 - 48.0 % 11/20 4:22 AM [employer] [facility] Not Available Not Available 12/24/2024 17:32:30 11/20/19 25 11/20/2024 CBC W Auto Diffe renti al panel - Blood MCV 108.5 fL low: 82fLhi gh: 99fL high MCV 108.5 (H) 82.0 - 99.0 fL 11/20 4:22 AM [employer] [facility] Not Available Not Available 12/24/2024 17:32:30 11/20/19 25 11/20/2024 CBC W Auto Diffe renti al panel - Blood MCH 34.2 pg low: 27.2pg high: 32.6pg high MCH 34.2 (H) 27.2 - 32.6 pg 02/05 /2025 4:22 AM [employer] [facility] Not Available Not Available 12/24/2024 17:32:30 11/20/19 25 11/20/2024 CBC W Auto Diffe renti al panel - Blood MCHC 31.5 g/dL low: 31.5g/ dLhigh : 35.5g/ dL MCHC 31.5 31.5 - 35.5 g/dL 11/20 4:22 AM [facility] [place] Not Available Not Available 12/24/2024 17:32:30 11/20/19 25 11/20/2024 CBC W Auto Diffe renti al panel - Blood RDW 15.2 % low: 11.5%h igh: 14.5% high RDW 15.2 (H) 11.5 - 14.5 % 11/20 4:22 AM [facility] [place] Not Available Not Available 12/24/2024 17:32:30 11/20/19 25 11/20/2024 CBC W Auto Diffe renti al panel - Blood RDW-stdev 60.9 fL low: 37.1fL high: 48.7fL high RDW-S TDEV 60.9 (H) 37.1 - 48.7 fL 11/20 4:22 AM [facility] [place] Not Available Not Available 12/24/2024 17:32:30 11/20/19 25 11/20/2024 CBC W Auto Diffe renti al panel - Blood platelets [#/volume] in blood by automated count 395 K/uL low: 140K/u Lhigh: 350K/u L high PLATE LETS 395 (H) 140 - 350 K/uL 11/20 4:22 AM [employer] [facility] Not Available Not Available 12/24/2024 17:32:30 11/20/19 25 11/20/2024 CBC W Auto Diffe renti al panel - Blood MPV 9.5 fL low: 9.3fLh igh: 12.4fL MPV 9.5 9.3 - 12.4 fL 11/20 4:22 AM [employer] [facility] Not Available Not Available 12/24/2024 17:32:30 11/20/19 25 11/20/2024 CBC W Auto Diffe renti al panel - Blood neutrophils 78 % NEUTR OPHIL S 78 % 11/20 4:22 AM [facility] [place] Not Available Not Available 12/24/2024 17:32:30 11/20/19 25 11/20/2024 CBC W Auto Diffe renti al panel - Blood lymphocytes/ 100 leukocytes in blood by automated count 10 % LYMPH OCYTE S 10 % 11/20 4:22 AM [employer] [facility] Not Available Not Available 12/24/2024 17:32:30 11/20/19 25 11/20/2024 CBC W Auto Diffe renti al panel - Blood monocytes 9 % MONOC YTES 9 % 11/20 4:22 AM [facility] [place] Not Available Not Available 12/24/2024 17:32:30 11/20/19 25 11/20/2024 CBC W Auto Diffe renti al panel - Blood eosinophils 2 % EOSIN OPHIL S 2 % 11/20 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[facility] [place] Not Available Not Available 12/24/2024 17:32:30 11/20/19 25 11/20/2024 CBC W Auto Diffe renti al panel - Blood basophils 1 % BASOP HILS 1 % 11/20 4:22 AM [employer] [facility] Not Available Not Available 12/24/2024 17:32:30 11/20/19 25 11/20/2024 CBC W Auto Diffe renti al panel - Blood immature granulocytes 1 % IMMAT URE GRANU LOCYT ES 1 % 11/20 4:22 AM [employer] [facility] Not Available Not Available 12/24/2024 17:32:30 11/20/19 25 11/20/2024 CBC W Auto Diffe renti al panel - Blood neutrophils [#/volume] in blood by automated count 6.23 K/uL low: 1.9K/u Lhigh: 7K/uL NEUTR OPHIL ABSOL [place] 6.23 1.90 - 7.00 K/uL 11/20 4:22 AM [employer] [facility] Not Available Not Available 12/24/2024 17:32:30 11/20/19 25 11/20/2024 CBC W Auto Diffe renti al panel - Blood lymphocyte absolute 0.79 K/uL low: 0.7K/u Lhigh: 4.5K/u L LYMPH OCYTE ABSOL [place] 0.79 0.70 - 4.50 K/uL 11/20 4:22 AM [employer] [facility] Not Available Not Available 12/24/2024 17:32:30 11/20/19 25 11/20/2024 CBC W Auto Diffe renti al panel - Blood monocyte absolute 0.73 K/uL low: 0.1K/u Lhigh: 1.3K/u L MONOC YTE ABSOL [place] 0.73 0.10 - 1.30 K/uL 11/20 4:22 AM [employer] [facility] Not Available Not Available 12/24/2024 17:32:30 11/20/19 25 11/20/2024 CBC W Auto Diffe renti al panel - Blood eosinophil absolute 0.17 K/uL low: 0K/uLh igh: 0.7K/u L EOSIN OPHIL ABSOL [place] 0.17 0.00 - 0.70 K/uL 11/20 4:22 AM [employer] [facility] Not Available Not Available 12/24/2024 17:32:30 11/20/19 25 11/20/2024 CBC W Auto Diffe renti al panel - Blood basophils absolute 0.06 K/uL low: 0K/uLh igh: 0.2K/u L BASOP HILS ABSOL [place] 0.06 0.00 - 0.20 K/uL 11/20 4:22 AM [employer] [facility] Not Available Not Available 12/24/2024 17:32:30 11/20/19 25 11/20/2024 CBC W Auto Diffe renti al panel - Blood immature granulocytes absolute 0.06 K/uL low: 0K/uLh igh: 0.03K/ uL high IMMAT URE GRANU LOCYT ES ABSOL [place] 0.06 (H) 0.00 - 0.03 K/uL 11/20 4:22 AM [employer] [facility] Not Available Not Available 12/24/2024 [...] - 145 mmol/ L 11/21 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 [employer] [facility] Not Available Not Available 12/24/2024 17:32:30 11/21/19 25 11/21/2024 Basic metab olic 1999 panel - Serum or Plasm a potassium [moles/volum e] in serum or plasma 5.6 mmol/ L low: 3.4mmo l/Lhig h: 5.1mmo l/L high POTAS SIUM 5.6 (H) 3.4 - 5.1 mmol/ L 11/21 6:44 AM [employer] [facility] Not Available Not Available 12/24/2024 17:32:30 11/21/19 25 11/21/2024 Basic metab olic 1999 panel - Serum or Plasm a chloride 103 mmol/ L low: 98mmol /Lhigh : 107mmo l/L [place] 103 98 - 107 mmol/ L 11/21 6:44 AM [employer] [facility] Not Available Not Available 12/24/2024 17:32:30 11/21/19 25 11/21/2024 Basic metab olic 1999 panel - Serum or Plasm a carbon dioxide, total [moles/volum e] in serum or plasma 17 mmol/ L low: 22mmol /Lhigh : 29mmol /L low CO2 17 (L) 22 - 29 mmol/ L 11/21 6:44 AM [facility] Not Available Not Available 12/24/2024 17:32:30 11/21/19 25 11/21/2024 Basic metab olic 1999 panel - Serum or Plasm a calcium 9.5 mg/dL low: 8.6mg/ dLhigh : 10.4mg /dL CALCI UM 9.5 8.6 - 10.4 mg/dL 11/21 6:44 AM [facility] Not Available Not Available 12/24/2024 17:32:30 11/21/19 25 11/21/2024 Basic metab olic 1999 panel - Serum or Plasm a BUN 51 mg/dL low: 6mg/dL high: 20mg/d L high BUN 51 (H) 6 - 20 mg/dL 11/21 6:44 AM [employer] [facility] Not Available Not Available 12/24/2024 17:32:30 11/21/19 25 11/21/2024 Basic metab olic 1999 panel - Serum or Plasm a creatinine [mass/volume ] in serum or plasma 7.46 mg/dL low: 0.67mg /dLhig h: 1.17mg /dL high CREAT ININE 7.46 (H) 0.67 - 1.17 mg/dL 11/21 6:44 AM [employer] [facility] Not Available Not Available 12/24/2024 17:32:30 11/21/19 25 11/21/2024 Basic metab olic 1999 panel - Serum or Plasm a glucose [mass/volume ] in serum or plasma 174 mg/dL low: 74mg/d Lhigh: 99mg/d L high GLUCO SE 174 (H) 74 - 99 mg/dL 11/21 6:44 AM [facility] Not Available Not Available 12/24/2024 17:32:30 11/21/19 25 11/21/2024 Basic metab olic 2000 panel - Serum or Plasm a glomerular filtration rate/1.73 sq M.predicted [volume rate/area] in serum, plasma or blood by creatinine-b ased formula (CKD-epi 2020) 8 text: >=60 mL/min /1.73 sq meter low GFR 8 (L) >=60 mL/mi n/1.7 3 sq meter 11/21 6:44 AM [facility] Not Available Not Available 12/24/2024 17:32:30 11/21/19 25 11/21/2024 Basic metab olic 2000 panel - Serum or Plasm a anion gap 10 mmol/ L low: 8mmol/ Lhigh: 16mmol /L ANION GAP 10 8 - 16 mmol/ L 11/21 6:44 AM [facility] Not Available Not Available 12/24/2024 17:32:30 [...] 4.0 - 9.8 K/uL 11/21 3:10 AM [facility] Not Available Not Available 12/24/2024 17:32:30 11/21/19 25 11/21/2024 CBC W Auto Diffe renti al panel - Blood RBC 2.25 text: 4.50 - 5.40 M/uL low RBC 2.25 (L) 4.50 - 5.40 M/uL 11/21 3:10 AM [facility] Not Available Not Available 12/24/2024 17:32:30 11/21/19 25 11/21/2024 CBC W Auto Diffe renti al panel - Blood hemoglobin 7.5 g/dL low: 13.6g/ dLhigh : 16.5g/ dL low HEMOG LOBIN 7.5 (L) 13.6 - 16.5 g/dL 11/21 3:10 AM [facility] Not Available Not Available 12/24/2024 17:32:30 11/21/19 25 11/21/2024 CBC W Auto Diffe renti al panel - Blood hematocrit [volume fraction] of blood by automated count 23.8 % low: 40%hig h: 48% low HEMAT OCRIT 23.8 (L) 40.0 - 48.0 % 11/21 3:10 AM [employer] [facility] Not Available Not Available 12/24/2024 17:32:30 11/21/19 25 11/21/2024 CBC W Auto Diffe renti al panel - Blood MCV 105.8 fL low: 82fLhi gh: 99fL high MCV 105.8 (H) 82.0 - 99.0 fL 11/21 3:10 AM [employer] [facility] Not Available Not Available 12/24/2024 17:32:30 11/21/19 25 11/21/2024 CBC W Auto Diffe renti al panel - Blood MCH 33.3 pg low: 27.2pg high: 32.6pg high MCH 33.3 (H) 27.2 - 32.6 pg 11/21 3:10 AM [facility] Not Available Not Available 12/24/2024 17:32:30 11/21/19 25 11/21/2024 CBC W Auto Diffe renti al panel - Blood MCHC 31.5 g/dL low: 31.5g/ dLhigh : 35.5g/ dL MCHC 31.5 31.5 - 35.5 g/dL 11/21 3:10 AM [employer] [facility] Not Available Not Available 12/24/2024 17:32:30 11/21/19 25 11/21/2024 CBC W Auto Diffe renti al panel - Blood RDW 17.8 % low: 11.5%h igh: 14.5% high RDW 17.8 (H) 11.5 - 14.5 % 11/21 3:10 AM [employer] [facility] Not Available Not Available 12/24/2024 17:32:30 11/21/19 25 11/21/2024 CBC W Auto Diffe renti al panel - Blood RDW-stdev 70.4 fL low: 37.1fL high: 48.7fL high RDW-S TDEV 70.4 (H) 37.1 - 48.7 fL 11/21 3:10 AM [employer] [facility] Not Available Not Available 12/24/2024 17:32:30 11/21/19 25 11/21/2024 CBC W Auto Diffe renti al panel - Blood platelets [#/volume] in blood by automated count 370 K/uL low: 140K/u Lhigh: 350K/u L high PLATE LETS 370 (H) 140 - 350 K/uL 11/21 3:10 AM [employer] [facility] Not Available Not Available 12/24/2024 17:32:30 11/21/19 25 11/21/2024 CBC W Auto Diffe renti al panel - Blood MPV 9.9 fL low: 9.3fLh igh: 12.4fL MPV 9.9 9.3 - 12.4 fL 11/21 3:10 AM [employer] [facility] Not Available Not Available 12/24/2024 17:32:30 11/21/19 25 11/21/2024 CBC W Auto Diffe renti al panel - Blood neutrophils 81 % NEUTR OPHIL S 81 % 11/21 3:10 AM [employer] [facility] Not Available Not Available 12/24/2024 17:32:30 11/21/19 25 11/21/2024 CBC W Auto Diffe renti al panel - Blood lymphocytes/ 100 leukocytes in blood by automated count 8 % LYMPH OCYTE S 8 % 11/21 3:10 AM [employer] [facility] Not Available Not Available 12/24/2024 17:32:30 11/21/19 25 11/21/2024 CBC W Auto Diffe renti al panel - Blood monocytes 8 % MONOC YTES 8 % 11/21 3:10 AM [employer] [facility] Not Available Not Available 12/24/2024 17:32:30 11/21/19 25 11/21/2024 CBC W Auto Diffe renti al panel - Blood eosinophils 2 % EOSIN OPHIL S 2 % 11/21 3:10 AM [employer] [facility] Not Available Not Available 12/24/2024 17:32:30 11/21/19 25 11/21/2024 CBC W Auto Diffe renti al panel - Blood basophils 1 % BASOP HILS 1 % 11/21 3:10 AM [employer] [facility] Not Available Not Available 12/24/2024 17:32:30 11/21/19 25 11/21/2024 CBC W Auto Diffe renti al panel - Blood immature granulocytes 1 % IMMAT URE GRANU LOCYT ES 1 % 11/21 3:10 AM [employer] [facility] Not Available Not Available 12/24/2024 17:32:30 11/21/19 25 11/21/2024 CBC W Auto Diffe renti al panel - Blood neutrophils [#/volume] in blood by automated count 8.26 K/uL low: 1.9K/u Lhigh: 7K/uL high NEUTR OPHIL ABSOL [place] 8.26 (H) 1.90 - 7.00 K/uL 11/21 3:10 AM [employer] [facility] Not Available Not Available 12/24/2024 17:32:30 11/21/19 25 11/21/2024 CBC W Auto Diffe renti al panel - Blood lymphocyte absolute 0.79 K/uL low: 0.7K/u Lhigh: 4.5K/u L LYMPH OCYTE ABSOL [place] 0.79 0.70 - 4.50 K/uL 11/21 3:10 AM [employer] [facility] Not Available Not Available 12/24/2024 17:32:30 11/21/19 25 11/21/2024 CBC W Auto Diffe renti al panel - Blood monocyte absolute 0.77 K/uL low: 0.1K/u Lhigh: 1.3K/u L MONOC YTE ABSOL [place] 0.77 0.10 - 1.30 K/uL 11/21 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[employer] [facility] Not Available Not Available 12/24/2024 17:32:30 11/21/19 25 11/21/2024 CBC W Auto Diffe renti al panel - Blood eosinophil absolute 0.19 K/uL low: 0K/uLh igh: 0.7K/u L EOSIN OPHIL ABSOL [place] 0.19 0.00 - 0.70 K/uL 11/21 3:10 AM [employer] [facility] Not Available Not Available 12/24/2024 17:32:30 11/21/19 25 11/21/2024 CBC W Auto Diffe renti al panel - Blood basophils absolute 0.08 K/uL low: 0K/uLh igh: 0.2K/u L BASOP HILS ABSOL [place] 0.08 0.00 - 0.20 K/uL 11/21 3:10 AM [employer] [facility] Not Available Not Available 12/24/2024 17:32:30 11/21/19 25 11/21/2024 CBC W Auto Diffe renti al panel - Blood immature granulocytes absolute 0.07 K/uL low: 0K/uLh igh: 0.03K/ uL high IMMAT URE GRANU LOCYT ES ABSOL [place] 0.07 (H) 0.00 - 0.03 K/uL 11/21 3:10 AM [employer] [facility] Not Available Not Available 12/24/2024 [...] - 145 mmol/ L 11/21 4:55 AM [facility] Not Available Not Available 12/24/2024 17:32:30 11/21/19 25 11/21/2024 Renal funct ion 1999 panel - Serum or Plasm a potassium [moles/volum e] in serum or plasma 6.6 mmol/ L low: 3.4mmo l/Lhig h: 5.1mmo l/L critical high POTAS SIUM 6.6 (HH) 3.4 - 5.1 mmol/ L 11/21 4:55 AM [facility] Not Available Not Available 12/24/2024 17:32:30 11/21/19 25 11/21/2024 Renal funct ion 1999 panel - Serum or Plasm a chloride 103 mmol/ L low: 98mmol /Lhigh : 107mmo l/L [place] 103 98 - 107 mmol/ L 11/21 4:55 AM [employer] [facility] Not Available Not Available 12/24/2024 17:32:30 11/21/19 25 11/21/2024 Renal funct ion 1999 panel - Serum or Plasm a carbon dioxide, total [moles/volum e] in serum or plasma 17 mmol/ L low: 22mmol /Lhigh : 29mmol /L low CO2 17 (L) 22 - 29 mmol/ L 11/21 4:55 AM [facility] Not Available Not Available 12/24/2024 17:32:30 11/21/19 25 11/21/2024 Renal funct ion 1999 panel - Serum or Plasm a calcium 9.3 mg/dL low: 8.6mg/ dLhigh : 10.4mg /dL CALCI UM 9.3 8.6 - 10.4 mg/dL 11/21 4:55 AM [employer] [facility] Not Available Not Available 12/24/2024 17:32:30 11/21/19 25 11/21/2024 Renal funct ion 1999 panel - Serum or Plasm a BUN 49 mg/dL low: 6mg/dL high: 20mg/d L high BUN 49 (H) 6 - 20 mg/dL 11/21 4:[address] [facility] Not Available Not Available 12/24/2024 17:32:30 11/21/19 25 11/21/2024 Renal funct ion 1999 panel - Serum or Plasm a creatinine [mass/volume ] in serum or plasma 7.3 mg/dL low: 0.67mg /dLhig h: 1.17mg /dL high CREAT ININE 7.30 (H) 0.67 - 1.17 mg/dL 11/21 4:55 AM [employer] [facility] [employer] [facility] Not Available Not Available 12/24/2024 17:32:30 11/21/19 25 11/21/2024 Renal funct ion 1999 panel - Serum or Plasm a glucose [mass/volume ] in serum or plasma 105 mg/dL low: 74mg/d Lhigh: 99mg/d L high GLUCO SE 105 (H) 74 - 99 mg/dL 11/21 4:55 AM [facility] Not Available Not Available 12/24/2024 17:32:30 11/21/19 25 11/21/2024 Renal funct ion 1999 panel - Serum or Plasm a albumin 2.9 g/dL low: 3.5g/d Lhigh: 5.2g/d L low ALBUM IN 2.9 (L) 3.5 - 5.2 g/dL 11/21 4:[address] [facility] Not Available Not Available 12/24/2024 17:32:30 11/21/19 25 11/21/2024 Renal funct ion 1999 panel - Serum or Plasm a phosphorus 4.7 mg/dL low: 2.5mg/ dLhigh : 4.5mg/ dL high PHOSP HORUS 4.7 (H) 2.5 - 4.5 mg/dL 11/21 4:55 AM [facility] ServicesSELECT [facility] Not Available Not Available 12/24/2024 17:32:30 11/21/19 25 11/21/2024 Renal funct ion 1999 panel - Serum or Plasm a glomerular filtration rate/1.73 sq M.predicted [volume rate/area] in serum, plasma or blood by creatinine-b ased formula (CKD-epi 2020) 8 text: >=60 mL/min /1.73 sq meter low GFR 8 (L) >=60 mL/mi n/1.7 3 sq meter 11/21 4:55 AM [employer] [facility] Not Available Not Available 12/24/2024 17:32:30 11/21/19 25 11/21/2024 Renal funct ion 1999 panel - Serum or Plasm a anion gap 12 mmol/ L low: 8mmol/ Lhigh: 16mmol /L ANION GAP 12 8 - 16 mmol/ L 11/21 4:55 AM [employer] [facility] Not Available Not Available 12/24/2024 [...] - 145 mmol/ L 11/22 7:06 AM [facility] Not Available Not Available 12/24/2024 17:32:31 11/22/19 25 11/22/2024 Renal funct ion 1999 panel - Serum or Plasm a potassium [moles/volum e] in serum or plasma 5.9 mmol/ L low: 3.4mmo l/Lhig h: 5.1mmo l/L high POTAS SIUM 5.9 (H) 3.4 - 5.1 mmol/ L 11/22 7:06 AM [facility] [facility] Not Available Not Available 12/24/2024 17:32:31 11/22/19 25 11/22/2024 Renal funct ion 1999 panel - Serum or Plasm a chloride 102 mmol/ L low: 98mmol /Lhigh : 107mmo l/L [facility] [place] 102 98 - 107 mmol/ L 11/22 7:06 AM [facility] Not Available Not Available 12/24/2024 17:32:31 11/22/19 25 11/22/2024 Renal funct ion 1999 panel - Serum or Plasm a carbon dioxide, total [moles/volum e] in serum or plasma 20 mmol/ L low: 22mmol /Lhigh : 29mmol /L low CO2 20 (L) 22 - 29 mmol/ L 11/22 7:06 AM [facility] Not Available Not Available 12/24/2024 17:32:31 11/22/19 25 11/22/2024 Renal funct ion 1999 panel - Serum or Plasm a calcium 9.6 mg/dL low: 8.6mg/ dLhigh : 10.4mg /dL CALCI UM 9.6 8.6 - 10.4 mg/dL 11/22 7:06 AM [facility] Not Available Not Available 12/24/2024 17:32:31 11/22/19 25 11/22/2024 Renal funct ion 1999 panel - Serum or Plasm a BUN 36 mg/dL low: 6mg/dL high: 20mg/d L high BUN 36 (H) 6 - 20 mg/dL 11/22 7:06 AM [facility] Not Available Not Available 12/24/2024 17:32:31 11/22/19 25 11/22/2024 Renal funct ion 1999 panel - Serum or Plasm a creatinine [mass/volume ] in serum or plasma 5.92 mg/dL low: 0.67mg /dLhig h: 1.17mg /dL high CREAT ININE 5.92 (H) 0.67 - 1.17 mg/dL 11/22 7:06 AM [facility] Not Available Not Available 12/24/2024 17:32:31 11/22/19 25 11/22/2024 Renal funct ion 1999 panel - Serum or Plasm a glucose [mass/volume ] in serum or plasma 101 mg/dL low: 74mg/d Lhigh: 99mg/d L high GLUCO SE 101 (H) 74 - 99 mg/dL 11/22 7:06 AM [facility] Not Available Not Available 12/24/2024 17:32:31 11/22/19 25 11/22/2024 Renal funct ion 1999 panel - Serum or Plasm a albumin 3 g/dL low: 3.5g/d Lhigh: 5.2g/d L low ALBUM IN 3.0 (L) 3.5 - 5.2 g/dL 11/22 7:06 AM [facility] Not Available Not Available 12/24/2024 17:32:31 11/22/19 25 11/22/2024 Renal funct ion 1999 panel - Serum or Plasm a phosphorus 4.3 mg/dL low: 2.5mg/ dLhigh : 4.5mg/ dL PHOSP HORUS 4.3 2.5 - 4.5 mg/dL 11/22 7:06 AM [facility] Not Available Not Available 12/24/2024 17:32:31 11/22/19 25 11/22/2024 Renal funct ion 1999 panel - Serum or Plasm a glomerular filtration rate/1.73 sq M.predicted [volume rate/area] in serum, plasma or blood by creatinine-b ased formula (CKD-epi 2020) 10 text: >=60 mL/min /1.73 sq meter low GFR 10 (L) >=60 mL/mi n/1.7 3 sq meter 11/22 7:06 AM [facility] Not Available Not Available 12/24/2024 17:32:31 11/22/19 25 11/22/2024 Renal funct ion 1999 panel - Serum or Plasm a anion gap 13 mmol/ L low: 8mmol/ Lhigh: 16mmol /L ANION GAP 13 8 - 16 mmol/ L 11/22 7:06 AM [facility] Not Available Not Available 12/24/2024 17:32:31 [...] 4.0 - 9.8 K/uL 11/22 6:31 AM [facility] Not Available Not Available 12/24/2024 17:32:30 11/22/19 25 11/22/2024 CBC W Auto Diffe renti al panel - Blood RBC 2.52 text: 4.50 - 5.40 M/uL low RBC 2.52 (L) 4.50 - 5.40 M/uL 11/22 6:31 AM [employer] [facility] Not Available Not Available 12/24/2024 17:32:30 11/22/19 25 11/22/2024 CBC W Auto Diffe renti al panel - Blood hemoglobin 8.5 g/dL low: 13.6g/ dLhigh : 16.5g/ dL low HEMOG LOBIN 8.5 (L) 13.6 - 16.5 g/dL 11/22 6:31 AM [employer] [facility] Not Available Not Available 12/24/2024 17:32:30 11/22/19 25 11/22/2024 CBC W Auto Diffe renti al panel - Blood hematocrit [volume fraction] of blood by automated count 26.9 % low: 40%hig h: 48% low HEMAT OCRIT 26.9 (L) 40.0 - 48.0 % 11/22 6:31 AM [facility] Not Available Not Available 12/24/2024 17:32:30 11/22/19 25 11/22/2024 CBC W Auto Diffe renti al panel - Blood MCV 106.7 fL low: 82fLhi gh: 99fL high MCV 106.7 (H) 82.0 - 99.0 fL 11/22 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 [facility] Not Available Not Available 12/24/2024 17:32:30 11/22/19 25 11/22/2024 CBC W Auto Diffe renti al panel - Blood MCH 33.7 pg low: 27.2pg high: 32.6pg high MCH 33.7 (H) 27.2 - 32.6 pg 11/22 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 [facility] Not Available Not Available 12/24/2024 17:32:30 11/22/19 25 11/22/2024 CBC W Auto Diffe renti al panel - Blood MCHC 31.6 g/dL low: 31.5g/ dLhigh : 35.5g/ dL MCHC 31.6 31.5 - 35.5 g/dL 11/22 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 [facility] Not Available Not Available 12/24/2024 17:32:30 11/22/19 25 11/22/2024 CBC W Auto Diffe renti al panel - Blood RDW 16.9 % low: 11.5%h igh: 14.5% high RDW 16.9 (H) 11.5 - 14.5 % 11/22 6:31 AM [employer] [facility] Not Available Not Available 12/24/2024 17:32:30 11/22/19 25 11/22/2024 CBC W Auto Diffe renti al panel - Blood RDW-stdev 66.1 fL low: 37.1fL high: 48.7fL high RDW-S TDEV 66.1 (H) 37.1 - 48.7 fL 11/22 6:31 AM [employer] [facility] Not Available Not Available 12/24/2024 17:32:30 11/22/19 25 11/22/2024 CBC W Auto Diffe renti al panel - Blood platelets [#/volume] in blood by automated count 352 K/uL low: 140K/u Lhigh: 350K/u L high PLATE LETS 352 (H) 140 - 350 K/uL 11/22 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 [facility] Not Available Not Available 12/24/2024 17:32:30 11/22/19 25 11/22/2024 CBC W Auto Diffe renti al panel - Blood MPV 9.7 fL low: 9.3fLh igh: 12.4fL MPV 9.7 9.3 - 12.4 fL 11/22 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 [facility] Not Available Not Available 12/24/2024 17:32:30 11/22/19 25 11/22/2024 CBC W Auto Diffe renti al panel - Blood neutrophils 80 % NEUTR OPHIL S 80 % 11/22 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 [facility] Not Available Not Available 12/24/2024 17:32:30 11/22/19 25 11/22/2024 CBC W Auto Diffe renti al panel - Blood lymphocytes/ 100 leukocytes in blood by automated count 8 % LYMPH OCYTE S 8 % 11/22 6:31 AM [employer] [facility] Not Available Not Available 12/24/2024 17:32:30 11/22/19 25 11/22/2024 CBC W Auto Diffe renti al panel - Blood monocytes 8 % MONOC YTES 8 % 11/22 6:31 AM [employer] [facility] Not Available Not Available 12/24/2024 17:32:30 11/22/19 25 11/22/2024 CBC W Auto Diffe renti al panel - Blood eosinophils 2 % EOSIN OPHIL S 2 % 11/22 6:31 AM [employer] [facility] Not Available Not Available 12/24/2024 17:32:30 11/22/19 25 11/22/2024 CBC W Auto Diffe renti al panel - Blood basophils 1 % BASOP HILS 1 % 11/22 6:31 AM [employer] [facility] Not Available Not Available 12/24/2024 17:32:30 11/22/19 25 11/22/2024 CBC W Auto Diffe renti al panel - Blood immature granulocytes 1 % IMMAT URE GRANU LOCYT ES 1 % 11/22 6:31 AM [facility] Not Available Not Available 12/24/2024 17:32:30 11/22/19 25 11/22/2024 CBC W Auto Diffe renti al panel - Blood neutrophils [#/volume] in blood by automated count 9.01 K/uL low: 1.9K/u Lhigh: 7K/uL high NEUTR OPHIL ABSOL [place] 9.01 (H) 1.90 - 7.00 K/uL 11/22 6:31 AM [facility] [employer] [facility] Not Available Not Available 12/24/2024 17:32:30 11/22/19 25 11/22/2024 CBC W Auto Diffe renti al panel - Blood lymphocyte absolute 0.91 K/uL low: 0.7K/u Lhigh: 4.5K/u L LYMPH OCYTE ABSOL [place] 0.91 0.70 - 4.50 K/uL 11/22 6:31 AM [facility] Not Available Not Available 12/24/2024 17:32:30 11/22/19 25 11/22/2024 CBC W Auto Diffe renti al panel - Blood monocyte absolute 0.92 K/uL low: 0.1K/u Lhigh: 1.3K/u L MONOC YTE ABSOL [place] 0.92 0.10 - 1.30 K/uL 11/22 6:31 AM [facility] [employer] [facility] Not Available Not Available 12/24/2024 17:32:30 11/22/19 25 11/22/2024 CBC W Auto Diffe renti al panel - Blood eosinophil absolute 0.22 K/uL low: 0K/uLh igh: 0.7K/u L EOSIN OPHIL ABSOL [place] 0.22 0.00 - 0.70 K/uL 11/22 6:31 AM [employer] [facility] Not Available Not Available 12/24/2024 17:32:30 11/22/19 25 11/22/2024 CBC W Auto Diffe renti al panel - Blood basophils absolute 0.09 K/uL low: 0K/uLh igh: 0.2K/u L BASOP HILS ABSOL [place] 0.09 0.00 - 0.20 K/uL 11/22 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 [facility] Not Available Not Available 12/24/2024 17:32:30 11/22/19 25 11/22/2024 CBC W Auto Diffe renti al panel - Blood immature granulocytes absolute 0.07 K/uL low: 0K/uLh igh: 0.03K/ uL high IMMAT URE GRANU LOCYT ES ABSOL [place] 0.07 (H) 0.00 - 0.03 K/uL 11/22 6:31 AM [employer] [facility] Not Available Not Available 12/24/2024 [...] (A) DAVID MCG/M L 11/28 11:33 AM [facility] Not Available Not Available 12/24/2024 17:32:31 11/23/19 25 11/28/2024 Bacte shaneka ident ified in Speci men by Anaer obe+A erobe cultu re microscopic observation [identifier] in specimen by gram stain No organi sms observ ed GRAM STAIN No organ isms obser evan 11/28 11:33 AM [employer] 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 Not Available 12/24/2024 17:32:31 11/23/19 [...] - 145 mmol/ L 11/23 6:19 AM [employer] [facility] Not Available Not Available 12/24/2024 17:32:31 11/23/19 25 11/23/2024 Renal funct ion 1999 panel - Serum or Plasm a potassium [moles/volum e] in serum or plasma 4.5 mmol/ L low: 3.4mmo l/Lhig h: 5.1mmo l/L POTAS SIUM 4.5 3.4 - 5.1 mmol/ L 11/23 6:19 AM [employer] [facility] Not Available Not Available 12/24/2024 17:32:31 11/23/19 25 11/23/2024 Renal funct ion 1999 panel - Serum or Plasm a chloride 100 mmol/ L low: 98mmol /Lhigh : 107mmo l/L [place]T 100 98 - 107 mmol/ L 11/23 6:19 AM [employer] [facility] Not Available Not Available 12/24/2024 17:32:31 11/23/19 25 11/23/2024 Renal funct ion 1999 panel - Serum or Plasm a carbon dioxide, total [moles/volum e] in serum or plasma 21 mmol/ L low: 22mmol /Lhigh : 29mmol /L low CO2 21 (L) 22 - 29 mmol/ L 11/23 6:19 AM [employer] [facility] Not Available Not Available 12/24/2024 17:32:31 11/23/19 25 11/23/2024 Renal funct ion 1999 panel - Serum or Plasm a calcium 9.2 mg/dL low: 8.6mg/ dLhigh : 10.4mg /dL CALCI UM 9.2 8.6 - 10.4 mg/dL 11/23 6:19 AM [employer] [facility] Not Available Not Available 12/24/2024 17:32:31 11/23/19 25 11/23/2024 Renal funct ion 1999 panel - Serum or Plasm a BUN 37 mg/dL low: 6mg/dL high: 20mg/d L high BUN 37 (H) 6 - 20 mg/dL 11/23 6:19 AM [employer] [facility] Not Available Not Available 12/24/2024 17:32:31 11/23/19 25 11/23/2024 Renal funct ion 1999 panel - Serum or Plasm a creatinine [mass/volume ] in serum or plasma 6.21 mg/dL low: 0.67mg /dLhig h: 1.17mg /dL high CREAT ININE 6.21 (H) 0.67 - 1.17 mg/dL 11/23 6:19 AM [employer] [facility] Not Available Not Available 12/24/2024 17:32:31 11/23/19 25 11/23/2024 Renal funct ion 1999 panel - Serum or Plasm a glucose [mass/volume ] in serum or plasma 89 mg/dL low: 74mg/d Lhigh: 99mg/d L GLUCO SE 89 74 - 99 mg/dL 11/23 6:19 AM [facility] Not Available Not Available 12/24/2024 17:32:31 11/23/19 25 11/23/2024 Renal funct ion 1999 panel - Serum or Plasm a albumin 2.8 g/dL low: 3.5g/d Lhigh: 5.2g/d L low ALBUM IN 2.8 (L) 3.5 - 5.2 g/dL 11/23 6:19 AM [employer] [facility] Not Available Not Available 12/24/2024 17:32:31 11/23/19 25 11/23/2024 Renal funct ion 1999 panel - Serum or Plasm a phosphorus 4.2 mg/dL low: 2.5mg/ dLhigh : 4.5mg/ dL PHOSP HORUS 4.2 2.5 - 4.5 mg/dL 11/23 6:19 AM [employer] [facility] Not Available Not Available 12/24/2024 17:32:31 11/23/19 25 11/23/2024 Renal funct ion 1999 panel - Serum or Plasm a glomerular filtration rate/1.73 sq M.predicted [volume rate/area] in serum, plasma or blood by creatinine-b ased formula (CKD-epi 2020) 9 text: >=60 mL/min /1.73 sq meter low GFR 9 (L) >=60 mL/mi n/1.7 3 sq meter 11/23 6:19 AM [employer] [facility] Not Available Not Available 12/24/2024 17:32:31 11/23/19 25 11/23/2024 Renal funct ion 1999 panel - Serum or Plasm a anion gap 13 mmol/ L low: 8mmol/ Lhigh: 16mmol /L ANION GAP 13 8 - 16 mmol/ L 11/23 6:19 AM [facility] Not Available Not Available 12/24/2024 [...] 4.0 - 9.8 K/uL 11/23 4:11 AM [employer] [facility] Not Available Not Available 12/24/2024 17:32:07 11/23/19 25 11/23/2024 CBC W Auto Diffe renti al panel - Blood RBC 2.12 text: 4.50 - 5.40 M/uL low RBC 2.12 (L) 4.50 - 5.40 M/uL 11/23 4:11 AM [facility] Not Available Not Available 12/24/2024 17:32:07 11/23/19 25 11/23/2024 CBC W Auto Diffe renti al panel - Blood hemoglobin 7 g/dL low: 13.6g/ dLhigh : 16.5g/ dL low HEMOG LOBIN 7.0 (L) 13.6 - 16.5 g/dL 11/23 4:11 AM [facility] Not Available Not Available 12/24/2024 17:32:07 11/23/19 25 11/23/2024 CBC W Auto Diffe renti al panel - Blood hematocrit [volume fraction] of blood by automated count 21.9 % low: 40%hig h: 48% low HEMAT OCRIT 21.9 (L) 40.0 - 48.0 % 11/23 4:11 AM [employer] [facility] Not Available Not Available 12/24/2024 17:32:07 11/23/19 25 11/23/2024 CBC W Auto Diffe renti al panel - Blood MCV 103.3 fL low: 82fLhi gh: 99fL high MCV 103.3 (H) 82.0 - 99.0 fL 11/23 4:11 AM [facility] Not Available Not Available 12/24/2024 17:32:07 02/08/20 25 11/23/2024 CBC W Auto Diffe renti al panel - Blood MCH 33 pg low: 27.2pg high: 32.6pg high MCH 33.0 (H) 27.2 - 32.6 pg 11/23 4:11 AM [facility] Not Available Not Available 12/24/2024 17:32:07 11/23/19 25 11/23/2024 CBC W Auto Diffe renti al panel - Blood MCHC 32 g/dL low: 31.5g/ dLhigh : 35.5g/ dL MCHC 32.0 31.5 - 35.5 g/dL 11/23 4:11 AM [facility] Not Available Not Available 12/24/2024 17:32:07 11/23/19 25 11/23/2024 CBC W Auto Diffe renti al panel - Blood RDW 16.6 % low: 11.5%h igh: 14.5% high RDW 16.6 (H) 11.5 - 14.5 % 11/23 4:11 AM [facility] Not Available Not Available 12/24/2024 17:32:07 11/23/19 25 11/23/2024 CBC W Auto Diffe renti al panel - Blood RDW-stdev 62.7 fL low: 37.1fL high: 48.7fL high RDW-S TDEV 62.7 (H) 37.1 - 48.7 fL 11/23 4:11 AM [facility] Not Available Not Available 12/24/2024 17:32:07 11/23/19 25 11/23/2024 CBC W Auto Diffe renti al panel - Blood platelets [#/volume] in blood by automated count 346 K/uL low: 140K/u Lhigh: 350K/u L PLATE LETS 346 140 - 350 K/uL 11/23 4:11 AM [facility] Not Available Not Available 12/24/2024 17:32:07 11/23/19 25 11/23/2024 CBC W Auto Diffe renti al panel - Blood MPV 9.8 fL low: 9.3fLh igh: 12.4fL MPV 9.8 9.3 - 12.4 fL 11/23 4:11 AM 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 [employer] Not Available Not Available 12/24/2024 17:32:07 11/23/19 25 11/23/2024 CBC W Auto Diffe renti al panel - Blood neutrophils 74 % NEUTR OPHIL S 74 % 11/23 4:11 AM [employer] [facility] Not Available Not Available 12/24/2024 17:32:07 11/23/19 25 11/23/2024 CBC W Auto Diffe renti al panel - Blood lymphocytes/ 100 leukocytes in blood by automated count 13 % LYMPH OCYTE S 13 % 11/23 4:11 AM [employer] [facility] Not Available Not Available 12/24/2024 17:32:07 11/23/19 25 11/23/2024 CBC W Auto Diffe renti al panel - Blood monocytes 10 % MONOC YTES 10 % 11/23 4:11 AM [employer] [facility] Not Available Not Available 12/24/2024 17:32:07 11/23/19 25 11/23/2024 CBC W Auto Diffe renti al panel - Blood eosinophils 2 % EOSIN OPHIL S 2 % 11/23 4:11 AM [employer] [facility] Not Available Not Available 12/24/2024 17:32:07 11/23/19 25 11/23/2024 CBC W Auto Diffe renti al panel - Blood basophils 1 % BASOP HILS 1 % 11/23 4:11 AM [employer] [facility] Not Available Not Available 12/24/2024 17:32:07 11/23/19 25 11/23/2024 CBC W Auto Diffe renti al panel - Blood immature granulocytes 1 % IMMAT URE GRANU LOCYT ES 1 % 11/23 4:11 AM [employer] [facility] Not Available Not Available 12/24/2024 17:32:07 11/23/19 25 11/23/2024 CBC W Auto Diffe renti al panel - Blood neutrophils [#/volume] in blood by automated count 7.09 K/uL low: 1.9K/u Lhigh: 7K/uL high NEUTR OPHIL ABSOL [place] 7.09 (H) 1.90 - 7.00 K/uL 11/23 4:11 AM [facility] Not Available Not Available 12/24/2024 17:32:07 11/23/19 25 11/23/2024 CBC W Auto Diffe renti al panel - Blood lymphocyte absolute 1.19 K/uL low: 0.7K/u Lhigh: 4.5K/u L LYMPH OCYTE ABSOL [place] 1.19 0.70 - 4.50 K/uL 11/23 4:11 AM [employer] [facility] Not Available Not Available 12/24/2024 17:32:07 11/23/19 25 11/23/2024 CBC W Auto Diffe renti al panel - Blood monocyte absolute 0.94 K/uL low: 0.1K/u Lhigh: 1.3K/u L MONOC YTE ABSOL [place] 0.94 0.10 - 1.30 K/uL 11/23 4:11 AM [employer] [facility] Not Available Not Available 12/24/2024 17:32:07 11/23/19 25 11/23/2024 CBC W Auto Diffe renti al panel - Blood eosinophil absolute 0.2 K/uL low: 0K/uLh igh: 0.7K/u L EOSIN OPHIL ABSOL [place] 0.20 0.00 - 0.70 K/uL 11/23 4:11 AM [employer] [facility] Not Available Not Available 12/24/2024 17:32:07 11/23/19 25 11/23/2024 CBC W Auto Diffe renti al panel - Blood basophils absolute 0.07 K/uL low: 0K/uLh igh: 0.2K/u L BASOP HILS ABSOL [place] 0.07 0.00 - 0.20 K/uL 11/23 4:11 AM [employer] [facility] Not Available Not Available 12/24/2024 17:32:07 11/23/19 25 11/23/2024 CBC W Auto Diffe renti al panel - Blood immature granulocytes absolute 0.06 K/uL low: 0K/uLh igh: 0.03K/ uL high IMMAT URE GRANU LOCYT ES ABSOL [place] 0.06 (H) 0.00 - 0.03 K/uL 11/23 4:11 AM [employer] [facility] Not Available Not Available 12/24/2024 [...] - 145 mmol/ L 11/24 5:05 AM [employer] [facility] Not Available Not Available 12/24/2024 17:32:31 11/24/19 25 11/24/2024 Renal funct ion 1999 panel - Serum or Plasm a potassium [moles/volum e] in serum or plasma 4.3 mmol/ L low: 3.4mmo l/Lhig h: 5.1mmo l/L POTAS SIUM 4.3 3.4 - 5.1 mmol/ L 11/24 5:05 AM [employer] [facility] Not Available Not Available 12/24/2024 17:32:31 11/24/19 25 11/24/2024 Renal funct ion 1999 panel - Serum or Plasm a chloride 100 mmol/ L low: 98mmol /Lhigh : 107mmo l/L [place] 100 98 - 107 mmol/ L 11/24 5:05 AM [facility] Not Available Not Available 12/24/2024 17:32:31 11/24/19 25 11/24/2024 Renal funct ion 1999 panel - Serum or Plasm a carbon dioxide, total [moles/volum e] in serum or plasma 24 mmol/ L low: 22mmol /Lhigh : 29mmol /L CO2 24 22 - 29 mmol/ L 11/24 5:05 AM [employer] [facility] Not Available Not Available 12/24/2024 17:32:31 11/24/19 25 11/24/2024 Renal funct ion 1999 panel - Serum or Plasm a calcium 9.1 mg/dL low: 8.6mg/ dLhigh : 10.4mg /dL CALCI UM 9.1 8.6 - 10.4 mg/dL 11/24 5:05 AM [employer] [facility] Not Available Not Available 12/24/2024 17:32:31 11/24/19 25 11/24/2024 Renal funct ion 1999 panel - Serum or Plasm a BUN 27 mg/dL low: 6mg/dL high: 20mg/d L high BUN 27 (H) 6 - 20 mg/dL 11/24 5:05 AM [employer] [facility] Not Available Not Available 12/24/2024 17:32:31 11/24/19 25 11/24/2024 Renal funct ion 1999 panel - Serum or Plasm a creatinine [mass/volume ] in serum or plasma 4.49 mg/dL low: 0.67mg /dLhig h: 1.17mg /dL high CREAT ININE 4.49 (H) 0.67 - 1.17 mg/dL 11/24 5:05 AM [employer] [facility] Not Available Not Available 12/24/2024 17:32:31 11/24/19 25 11/24/2024 Renal funct ion 1999 panel - Serum or Plasm a glucose [mass/volume ] in serum or plasma 71 mg/dL low: 74mg/d Lhigh: 99mg/d L low GLUCO SE 71 (L) 74 - 99 mg/dL 11/24 5:05 AM [employer] [facility] Not Available Not Available 12/24/2024 17:32:31 11/24/19 25 11/24/2024 Renal funct ion 2000 panel - Serum or Plasm a albumin 2.7 g/dL low: 3.5g/d Lhigh: 5.2g/d L low ALBUM IN 2.7 (L) 3.5 - 5.2 g/dL 11/24 5:05 AM [employer] [facility] Not Available Not Available 12/24/2024 17:32:31 11/24/19 25 11/24/2024 Renal funct ion 1999 panel - Serum or Plasm a phosphorus 2.8 mg/dL low: 2.5mg/ dLhigh : 4.5mg/ dL PHOSP HORUS 2.8 2.5 - 4.5 mg/dL 11/24 5:05 AM [employer] [facility] Not Available Not Available 12/24/2024 17:32:31 11/24/1911/24/2024 Renal funct ion 2000 panel - Serum or Plasm a glomerular filtration rate/1.73 sq M.predicted [volume rate/area] in serum, plasma or blood by creatinine-b ased formula (CKD-epi 2020) 14 text: >=60 mL/min /1.73 sq meter low GFR 14 (L) >=60 mL/mi n/1.7 3 sq meter 11/24 5:05 AM [employer] [facility] Not Available Not Available 12/24/2024 17:32:31 11/24/1911/24/2024 Renal funct ion 2000 panel - Serum or Plasm a anion gap 10 mmol/ L low: 8mmol/ Lhigh: 16mmol /L ANION GAP 10 8 - 16 mmol/ L 11/24 5:05 AM [employer] [facility] Not Available Not Available 12/24/2024 [...] 4.0 - 9.8 K/uL 11/24 5:01 AM [facility] Not Available Not Available 12/24/2024 17:32:07 11/24/19 25 11/24/2024 CBC panel - Blood by Autom ated count RBC 2.2 text: 4.50 - 5.40 M/uL low RBC 2.20 (L) 4.50 - 5.40 M/uL 11/24 5:01 AM [facility] Not Available Not Available 12/24/2024 17:32:07 11/24/19 25 11/24/2024 CBC panel - Blood by Autom ated count hemoglobin 7.3 g/dL low: 13.6g/ dLhigh : 16.5g/ dL low HEMOG LOBIN 7.3 (L) 13.6 - 16.5 g/dL 11/24 5:01 AM [employer] [facility] Not Available Not Available 12/24/2024 17:32:07 11/24/1911/24/2024 CBC panel - Blood by Autom ated count hematocrit [volume fraction] of blood by automated count 22.7 % low: 40%hig h: 48% low HEMAT OCRIT 22.7 (L) 40.0 - 48.0 % 11/24 5:01 AM [facility] Not Available Not Available 12/24/2024 17:32:07 11/24/19 25 11/24/2024 CBC panel - Blood by Autom ated count MCV 103.2 fL low: 82fLhi gh: 99fL high MCV 103.2 (H) 82.0 - 99.0 fL 11/24 5:01 AM [facility] Not Available Not Available 12/24/2024 17:32:07 11/24/19 25 11/24/2024 CBC panel - Blood by Autom ated count MCH 33.2 pg low: 27.2pg high: 32.6pg high MCH 33.2 (H) 27.2 - 32.6 pg 11/24 5:01 AM [facility] Not Available Not Available 12/24/2024 17:32:07 11/24/19 25 11/24/2024 CBC panel - Blood by Autom ated count MCHC 32.2 g/dL low: 31.5g/ dLhigh : 35.5g/ dL MCHC 32.2 31.5 - 35.5 g/dL 11/24 5:01 AM [employer] [facility] Not Available Not Available 12/24/2024 17:32:07 11/24/19 25 11/24/2024 CBC panel - Blood by Autom ated count platelets [#/volume] in blood by automated count 332 K/uL low: 140K/u Lhigh: 350K/u L PLATE LETS 332 140 - 350 K/uL 11/24 5:01 AM [employer] [facility] Not Available Not Available 12/24/2024 17:32:07 11/24/1911/24/2024 CBC panel - Blood by Autom ated count MPV 10.2 fL low: 9.3fLh igh: 12.4fL MPV 10.2 9.3 - 12.4 fL 11/24 5:01 AM [employer] [facility] Not Available Not Available 12/24/2024 17:32:07 11/24/19 25 11/24/2024 CBC panel - Blood by Autom ated count RDW 17.3 % low: 11.5%h igh: 14.5% high RDW 17.3 (H) 11.5 - 14.5 % 11/24 5:01 AM [facility] Not Available Not Available 12/24/2024 17:32:07 11/24/19 25 11/24/2024 CBC panel - Blood by Autom ated count RDW-stdev 65.5 fL low: 37.1fL high: 48.7fL high RDW-S TDEV 65.5 (H) 37.1 - 48.7 fL 11/24 5:01 AM [facility] Not Available Not Available 12/24/2024 17:32:07 [...] - 145 mmol/ L 11/25 5:27 AM [facility] [facility] Not Available Not Available 12/24/2024 17:32:31 11/25/1911/25/2024 Renal funct ion 1999 panel - Serum or Plasm a potassium [moles/volum e] in serum or plasma 4.4 mmol/ L low: 3.4mmo l/Lhig h: 5.1mmo l/L POTAS SIUM 4.4 3.4 - 5.1 mmol/ L 11/25 5:27 AM [employer] [facility] Not Available Not Available 12/24/2024 17:32:31 11/25/19 25 11/25/2024 Renal funct ion 1999 panel - Serum or Plasm a chloride 97 mmol/ L low: 98mmol /Lhigh : 107mmo l/L low CHLOR BURT 97 (L) 98 - 107 mmol/ L 11/25 5:27 AM [employer] [facility] Not Available Not Available 12/24/2024 17:32:31 11/25/19 25 11/25/2024 Renal funct ion 1999 panel - Serum or Plasm a carbon dioxide, total [moles/volum e] in serum or plasma 24 mmol/ L low: 22mmol /Lhigh : 29mmol /L CO2 24 22 - 29 mmol/ L 11/25 5:27 AM [facility] Not Available Not Available 12/24/2024 17:32:31 11/25/19 25 11/25/2024 Renal funct ion 1999 panel - Serum or Plasm a calcium 9.7 mg/dL low: 8.6mg/ dLhigh : 10.4mg /dL CALCI UM 9.7 8.6 - 10.4 mg/dL 11/25 5:27 AM [employer] [facility] Not Available Not Available 12/24/2024 17:32:31 11/25/19 25 11/25/2024 Renal funct ion 1999 panel - Serum or Plasm a BUN 40 mg/dL low: 6mg/dL high: 20mg/d L high BUN 40 (H) 6 - 20 mg/dL 11/25 5:27 AM [employer] [facility] Not Available Not Available 12/24/2024 17:32:31 11/25/19 25 11/25/2024 Renal funct ion 1999 panel - Serum or Plasm a creatinine [mass/volume ] in serum or plasma 6.66 mg/dL low: 0.67mg /dLhig h: 1.17mg /dL high CREAT ININE 6.66 (H) 0.67 - 1.17 mg/dL 11/25 5:27 AM [employer] [facility] Not Available Not Available 12/24/2024 17:32:31 11/25/19 25 11/25/2024 Renal funct ion 1999 panel - Serum or Plasm a glucose [mass/volume ] in serum or plasma 101 mg/dL low: 74mg/d Lhigh: 99mg/d L high GLUCO SE 101 (H) 74 - 99 mg/dL 11/25 5:27 AM [employer] [facility] Not Available Not Available 12/24/2024 17:32:31 11/25/19 25 11/25/2024 Renal funct ion 1999 panel - Serum or Plasm a albumin 2.9 g/dL low: 3.5g/d Lhigh: 5.2g/d L low ALBUM IN 2.9 (L) 3.5 - 5.2 g/dL 11/25 5:27 AM [employer] [facility] Not Available Not Available 12/24/2024 17:32:31 11/25/19 25 11/25/2024 Renal funct ion 1999 panel - Serum or Plasm a phosphorus 4.1 mg/dL low: 2.5mg/ dLhigh : 4.5mg/ dL PHOSP HORUS 4.1 2.5 - 4.5 mg/dL 11/25 5:27 AM [employer] [facility] Not Available Not Available 12/24/2024 17:32:31 11/25/19 25 11/25/2024 Renal funct ion 1999 panel - Serum or Plasm a glomerular filtration rate/1.73 sq M.predicted [volume rate/area] in serum, plasma or blood by creatinine-b ased formula (CKD-epi 2020) 9 text: >=60 mL/min /1.73 sq meter low GFR 9 (L) >=60 mL/mi n/1.7 3 sq meter 11/25 5:27 AM [facility] [place] Not Available Not Available 12/24/2024 17:32:31 11/25/19 25 11/25/2024 Renal funct ion 2000 panel - Serum or Plasm a anion gap 12 mmol/ L low: 8mmol/ Lhigh: 16mmol /L ANION GAP 12 8 - 16 mmol/ L 11/25 5:27 AM [employer] [facility] Not Available Not Available 12/24/2024 [...] - 145 mmol/ L 11/26 6:35 AM [employer] [facility] Not Available Not Available 12/24/2024 17:32:07 11/26/19 25 11/26/2024 Renal funct ion 1999 panel - Serum or Plasm a potassium [moles/volum e] in serum or plasma 4.9 mmol/ L low: 3.4mmo l/Lhig h: 5.1mmo l/L POTAS SIUM 4.9 3.4 - 5.1 mmol/ L 11/26 6:35 AM [employer] [facility] Not Available Not Available 12/24/2024 17:32:07 11/26/19 25 11/26/2024 Renal funct ion 1999 panel - Serum or Plasm a chloride 96 mmol/ L low: 98mmol /Lhigh : 107mmo l/L low CHLOR BURT 96 (L) 98 - 107 mmol/ L 11/26 6:35 AM [employer] [facility] Not Available Not Available 12/24/2024 17:32:07 11/26/19 25 11/26/2024 Renal funct ion 1999 panel - Serum or Plasm a carbon dioxide, total [moles/volum e] in serum or plasma 21 mmol/ L low: 22mmol /Lhigh : 29mmol /L low CO2 21 (L) 22 - 29 mmol/ L 11/26 6:35 AM [employer] [facility] Not Available Not Available 12/24/2024 17:32:07 11/26/19 25 11/26/2024 Renal funct ion 1999 panel - Serum or Plasm a calcium 10.3 mg/dL low: 8.6mg/ dLhigh : 10.4mg /dL CALCI UM 10.3 8.6 - 10.4 mg/dL 11/26 6:35 AM [employer] [facility] Not Available Not Available 12/24/2024 17:32:07 11/26/19 25 11/26/2024 Renal funct ion 1999 panel - Serum or Plasm a BUN 53 mg/dL low: 6mg/dL high: 20mg/d L high BUN 53 (H) 6 - 20 mg/dL 11/26 6:35 AM [facility] Not Available Not Available 12/24/2024 17:32:07 11/26/19 25 11/26/2024 Renal funct ion 1999 panel - Serum or Plasm a creatinine [mass/volume ] in serum or plasma 7.72 mg/dL low: 0.67mg /dLhig h: 1.17mg /dL high CREAT ININE 7.72 (H) 0.67 - 1.17 mg/dL 11/26 6:35 AM [facility] Not Available Not Available 12/24/2024 17:32:07 11/26/19 25 11/26/2024 Renal funct ion 1999 panel - Serum or Plasm a glucose [mass/volume ] in serum or plasma 100 mg/dL low: 74mg/d Lhigh: 99mg/d L high GLUCO SE 100 (H) 74 - 99 mg/dL 11/26 6:35 AM [employer] [facility] Not Available Not Available 12/24/2024 17:32:07 11/26/19 25 11/26/2024 Renal funct ion 1999 panel - Serum or Plasm a albumin 3.3 g/dL low: 3.5g/d Lhigh: 5.2g/d L low ALBUM IN 3.3 (L) 3.5 - 5.2 g/dL 11/26 6:35 AM [facility] Not Available Not Available 12/24/2024 17:32:07 11/26/19 25 11/26/2024 Renal funct ion 1999 panel - Serum or Plasm a phosphorus 4.5 mg/dL low: 2.5mg/ dLhigh : 4.5mg/ dL PHOSP HORUS 4.5 2.5 - 4.5 mg/dL 11/26 6:35 AM [facility] Not Available Not Available 12/24/2024 17:32:07 11/26/19 25 11/26/2024 Renal funct ion 1999 panel - Serum or Plasm a glomerular filtration rate/1.73 sq M.predicted [volume rate/area] in serum, plasma or blood by creatinine-b ased formula (CKD-epi 2020) 7 text: >=60 mL/min /1.73 sq meter low GFR 7 (L) >=60 mL/mi n/1.7 3 sq meter 11/26 6:35 AM 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 [facility] Not Available Not Available 12/24/2024 17:32:07 11/26/19 25 11/26/2024 Renal funct ion 2000 panel - Serum or Plasm a anion gap 14 mmol/ L low: 8mmol/ Lhigh: 16mmol /L ANION GAP 14 8 - 16 mmol/ L 11/26 6:35 AM 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 [facility] Not Available Not Available 12/24/2024 [...] [facility] RE SEE [facility] Not Available 12/24/2024 17:31:57 12/19/19 25 12/24/2024 Bacte shaneka ident ified in Speci men by Anaer obe+A erobe cultu re bacteria identified in specimen by aerobe culture SEE NOTE abnormal AEROB IC CULTU RE SEE NOTE (A) [facility] Not Available Not Available 12/24/2024 17:31:57 12/19/19 25 12/24/2024 Bacte shaneka ident ified in Speci men by Anaer obe+A erobe cultu re interpretati on and review of laboratory results Abnorm al Not Available Not Available 17:31:57 12/06/19 23 12/05/2022 XR, chest , 2 view No observ ation record ed. [facility] [address], [place], [address], 12/06/2022 11:38:43 03/06/20 23 03/06/2023 CT, abdom en + pelvi s, w/o contr ast No observ ation record ed. [address], [place], [address], 03/06/2023 12:46:38 05/25/20 23 05/23/2023 PET, skull base to mid-t high No observ ation record ed. [address], [place], [address], 06/13/2023 11:37:40 06/15/2006/14/2023 ct guide d needl e biops y (PROC ) No observ ation record ed. [address] [address], [place], [address], 06/15/2023 11:13:30 06/22/20 23 06/21/2023 XR, chest , 2 view No observ ation record ed. [address], [place], [address], 06/23/2023 10:57:46 10/26/19 24 10/25/2023 lab* No observ ation record ed. [address] [address], [place], [address], 10/26/2023 11:54:38 10/26/19 24 10/25/2023 lab* No observ ation record ed. [email or web address], [place], [address], 10/26/2023 11:54:45 10/26/19 24 10/25/2023 lab* No observ ation record ed. [address], [place], [address], 10/26/2023 11:54:52 11/03/19 24 10/25/2023 US, echo ardio gram, trans thora cic, compl ete, w/ color flow No observ ation record ed. [address] [place], [place], [address], 11/03/2023 15:21:02 02/27/20 24 02/27/2024 CT, chest , w/o contr ast No observ ation record ed. [address], [place], [address], 02/28/2024 10:32:32 06/07/20 24 05/16/2024 cole r monit or No observ ation record ed. [facility] Not Available 2023 14:40:16 09/04/20 24 09/03/2024 CT, chest + abdom en + pelvi s, w/o contr ast No observ ation record ed. [address], [place], [address], 09/04/2024 16:33:27 09/17/20 24 09/17/2024 XR, chest , 2 view No observ ation record ed. [address], [place], [address], 09/19/2024 19:04:41 11/05/19 25 11/05/2024 PET, skull base to mid-t high No observ ation record ed. [address], [place], [address], 11/06/2024 13:13:38 11/09/19 25 11/09/2024 XR, foot, 3 or more view No observ ation record ed. [address], [place], [address], 11/19/2024 17:24:11 11/10/19 25 11/09/2024 XR, foot, 2 view No observ ation record ed. [address], [place], [address], 11/19/2024 17:24:12 11/10/19 25 11/10/2024 MRI, ankle + foot, w/o contr ast No observ ation record ed. [address], [place], [address], 11/19/2024 17:24:12 Result Notes None recorded. Problems Name Problem SNOMED Code Status Onset Date Resolution Date Notes Provider Name and Address Organization Details Recorded Time Irregular heart beat 580990153 Active 2019 Tatianna Frank [place] null, [place] [facility] 0 15:31:42 Bilateral hearing loss 42341283 Active 2021 [facility] Attn: Hema chery,[address] [place], [address], [place] [facility] 2 10:54:39 Renal cell carcinoma 501393318 Active 2021 Right, found 04/26/22 [facility] Attn: Hema chery,[address] [facility], [place], [address], [place] [facility] 3 10:05:14 Essential hypertensi on 49127193 Active 2021 [facility] Attn: Hema chery,[address] [facility], [place], [address], [place] [facility] 2 10:57:01 Tobacco dependence syndrome 81886159 Active 2021 [facility] Attn: Hema chery,[address] [facility], [place], [address], [place] [facility] 2 13:06:45 Alcohol dependence 91403861 Active 2021 [facility] Attn: Hema chery,[address] [place], [address], [place] [facility] 2 13:06:52 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 610853216 Active 2021 [facility] Attn: Hema chery,[address] [place], [address], [place] [facility] 2 11:31:07 Umbilical hernia 075673513 Active 2021 [facility] Attn: Nevinmargarita chery,[address] [facility], [place], [address], [place] [facility] 2 11:06:26 Excision of right kidney Active 2021 removed 05/10/22 [facility] Attn: Nevinmargarita chery,[address] [facility], [place], [address], [place] [facility] 2 21:09:42 Neuropathy 064344103 Active 2021 [facility] Attn: Hema miri,[address] [facility], [place], [address], [place] [facility] 2 18:40:51 Chronic neck pain 189904348092 7 Active 2021 [facility] Attn: Hema miri,[address] [facility], [place], [address], [place] [facility] 2 18:41:02 Chronic kidney disease stage 5 721423922 Active 2021 [facility] Attn: Nevinmargarita chery,[address] [facility], [place], [address], [place] [facility] 2 21:12:11 Screening for malignant neoplasm of colon Active 2022 due for repeat 2025 [facility] Attn: Hema miri,[address] [facility], [place], [address], [place] [facility] 3 14:56:10 End-stage renal disease 11764521 Active 2023 [facility] Attn: Hema chery,[address] [facility], [place], [address], [place] [facility] 4 17:24:47 Problem Notes None recorded. Procedures Surgical History None recorded. Imaging Results Imaging Date Name Status LastModified by Organiz ation Details LastModified Time 12/05/2022 XR, chest, 2 view completed [address], [place], [address], 12/06/2022 11:38:43 03/06/2023 CT, abdomen + pelvis, w/o contrast completed [address], [place], [address], 03/06/2023 12:46:38 05/23/2023 PET, skull base to mid-thigh completed [address], [place], [address], 06/13/2023 11:37:40 06/14/2023 ct guided needle biopsy (PROC) completed [address], [place], [address], 06/15/2023 11:13:30 06/21/2023 XR, chest, 2 view completed [address], [place], [address], 06/23/2023 10:57:46 10/25/2023 lab* [email or web address] [address], [place], [address], 10/26/2023 11:54:38 10/25/2023 lab* completed [email or web address] [facility] [address], [place], [address], 10/26/2023 11:54:45 10/25/2023 lab* completed [email or web address] [facility] [address], [place], [address], 10/26/2023 11:54:52 10/25/2023 US, echocardiogra m, transthoracic , complete, w/ color flow completed [address], [place], [address], 11/03/2023 15:21:02 02/27/2024 CT, chest, w/o contrast completed [address] [facility], [place], [address], 02/28/2024 10:32:32 05/16/2024 holter monitor completed [facility] Information not available 06/07/2024 14:40:16 09/03/2024 CT, chest + abdomen + pelvis, w/o contrast completed [address], [address], 09/04/2024 16:33:27 09/17/2024 XR, chest, 2 view completed [address], [address], 09/19/2024 19:04:41 11/05/2024 PET, skull base to mid-thigh completed [address], [address], 11/06/2024 13:13:38 11/09/2024 XR, foot, 3 or more view completed [address], [address], 11/19/2024 17:24:11 11/09/2024 XR, foot, 2 view completed [address] [address], [place], [address], 11/19/2024 17:24:12 11/10/2024 MRI, ankle + foot, w/o contrast completed [address], [address], 11/19/2024 17:24:12 Procedure Notes None recorded. Medical [...] Updated DateTime 3 182.88 cm 28.1 kg/m2 08887.0 2 g 99 % 99 % 86 /min 140 mm[Hg] 72 mm[Hg] Opal Pugh [place] - [facility] 3 10:01:06 Date Recorded Respiratory rate Systolic blood pressure Diastolic blood pressure Provider Name and Address Organization Details Last Updated DateTime 10/24/2022 18 /min 128 mm[Hg] 72 mm[Hg] [facility] Attn: Accounting, [address] [place], [address], [place] - [facility] 10/24/2022 10:23:32 Date Recorded Body height Body mass index (BMI) Body weight Oxygen saturation Oxygen saturation in Arterial blood by Pulse oximetry Heart rate Respiratory rate Body temperature Systolic blood pressure Diastolic blood pressure Provider Name and Address Organization Details Last Updated DateTime 3 182.88 cm 29.2 kg/m2 69220.7 6 g 95 % 95 % 74 /min 16 /min 97.5 [degF] 140 mm[Hg] 74 mm[Hg] Cammy Nieves [facility] - [facility] 3 10:59:30 Date Recorded Systolic blood pressure Diastolic blood pressure Provider Name and Address Organization Details Last Updated DateTime 12/19/2022 138 mm[Hg] 70 mm[Hg] [facility] Attn: Accounting, [place], [address], [place] - [facility] 12/19/2022 11:24:43 Date Recorded Body height Body mass index (BMI) Body weight Oxygen saturation Oxygen saturation in Arterial blood by Pulse oximetry Heart rate Body temperature Systolic blood pressure Diastolic blood pressure Provider Name and Address Organization Details Last Updated DateTime 3 182.88 cm 29.3 kg/m2 78915.3 5 g 98 % 98 % 72 /min 98.3 [degF] 165 mm[Hg] 72 mm[Hg] Cammy Nieves [facility] - [facility] 10:06:40 Date Recorded Respiratory rate Systolic blood pressure Diastolic blood pressure Provider Name and Address Organization Details Last Updated DateTime 06/13/2023 18 /min 150 mm[Hg] 72 mm[Hg] [facility] Attn: Accounting, [address] [place], [address], [place] - [facility] 06/13/2023 10:32:42 Date Recorded Body height Body mass index (BMI) Body weight Oxygen saturation Oxygen saturation in Arterial blood by Pulse oximetry Heart rate Systolic blood pressure Diastolic blood pressure Provider Name and Address Organization Details Last Updated DateTime 3 182.88 cm 27.5 kg/m2 47062.2 5 g 98 % 98 % 65 /min 179 mm[Hg] 73 mm[Hg] Cathi Coyle MA [facility] 3 11:07:12 Date Recorded Respiratory rate Systolic blood pressure Diastolic blood pressure Provider Name and Address Organization Details Last Updated DateTime 08/04/2023 18 /min 140 mm[Hg] 70 mm[Hg] [facility] Attn: Accounting, [address] [place], [address], [facility] 08/04/2023 11:31:36 Date Recorded Body height Body mass index (BMI) Body weight Oxygen saturation Oxygen saturation in Arterial blood by Pulse oximetry Heart rate Respiratory rate Systolic blood pressure Diastolic blood pressure Provider Name and Address Organization Details Last Updated DateTime 182.88 cm 26.7 kg/m2 51793.7 g 96 % 96 % 102 /min 20 /min 125 mm[Hg] 78 mm[Hg] Opal Pugh MA [facility] 5 16:45:31 Date Recorded Heart rate Provider Name an Address Organization Details Last Updated DateTime 12/24/2024 90 /min [facility] Attn: Accounting,[address] [place], [address], [facility] 12/30/2024 09:11:19 Social History Question Answer Notes LastModified by Organizat ion Details LastModified Time Tobacco Smoking Status Current Every Day Smoker Tatianna Frank MA null, [facility] 12/28/2020 16:47:06 What Is Your Level Of [...] Of Your Most Recent Tobacco Screening? 12/24/2024 [email or web address] Information not available 12/24/2024 What Is Your [...] Date Was Tobacco Cessation Counseling Provided? 12/24/2024 [email or web address] Information not available 12/24/2024 How Many Years [...] Eating Disorder N Anemia N Heart Attack ([place]) N Anxiety Disorder N Diabetes N Muscle, [...] 3 completed [facility] Attn: Accounting,[address] [place], [address], [place] [facility] 10/24/2022 13:53:49 Pneumococcal conjugate PCV20, polysaccharide [id number] conjugate, adjuvant, PF 3 completed [facility] Attn: Accounting,[address] [place], [address], [place] [facility] 10/24/2022 13:53:49 Influenza, split virus, quadrivalent, PF 3 completed [facility] Attn: Accounting,[address] [place], [address], [place] [facility] 08/04/2023 12:34:19 Past Encounters Encounter ID Performer Location Encounter Start Date Encounter Closed Date Diagnosis/Indication Diagnosis SNOMED-CT Code Diagnosis ICD10 Code Diagnosis Note [id number] Bev Chandler MD [facility] [address] [place] [address] 02/18/2020 11:32:38 02/24/2020 06:10:37 Essential hypertension 23996569 I10 174/117, pulse 145; patient was asked to call us with follow up blood pressure next week. [id number] Bev Chandler MD [facility] [address] [place] [address] 12/28/2020 08:09:29 12/31/2020 10:17:06 Essential hypertension 73762311 I10 174/117, pulse 145; patient was asked to call us with follow up blood pressure next week. Adult heal th examination 082431870 Z00.00 [id number] [facility] [address] [place] [address] 12/28/2021 13:45:33 12/29/2021 10:48:07 Essential hypertension 10564695 I10 routine labspt taking lasix, unsure of why he is takingwill check kidney function today to see if can dc Screening for malignant neoplasm of colon 953256059 Z12.11 constipati on occurs every 2-3 daysno blood in stoolshas not had colon cancer screeningd iscussed cologuard vs colonoscop ysent for GI consult with colonoscop lizbeth del rosario increasing fluid intake, high fiber foods Neuropathy 403791819 G62 .9 chronic to bilateral feet x30 yrsdecreas ed sensation to ball of right foot up to toes and unable to feel sensation from ball of L foot up to toesEMG Onychomyco sis of toenails 600588576 B35.1 severe to all toespodiat ry referral Depression screening 171 621992 Z13.31 PHQ 0 Pre-surger y evaluation 164944286 Z01.818 cataract surgery scheduled 03/07/22eva l has to be completed no more than 30 days before surgeryadv ised pt to f/u in 6 wks to complete form [id number] [facility] [address] [place] [address] 02/21/2022 09:43:49 02/22/2022 10:28:59 Pre-surgery evaluation 258396194 Z01.818 02/21/22: cataract surgery scheduled 03/07/22PEx - nlcomplete d medical clearance form and faxed 12/28/21:ca taract surgery scheduled 03/07/22eva l has to be completed no more than 30 days before surgeryadv ised pt to f/u in 6 wks to complete form Essential hypertension 90844945 I10 02/21/22: BP controlled todayno med changesreq uested records from nephrology and urology 12/30/21: Cr 2.79- advised pt of lab results, CKD stage 4 and rec'd pt go to hospital. he was amendable to go to [place] 12/28/21:casa beckham labspt taking lasix, unsure of why he is takingwill check kidney function today to see if can dc Neuropathy 835293719 G62 .9 02/21/22:pt has upcoming EMGs scheduled 12/28/21:ch ronic to bilateral feet x30 yrsdecreas ed sensation to ball of right foot up to toes and unable to feel sensation from ball of L foot up to toesEMG Onychomyco sis of toenails 734642945 B35.1 02/21/22:turner nted off referral and encouraged pt to call to schedule appt 12/28/21:se kathy to all toespodiat ry referral Screening for malignant neoplasm of colon 499822248 Z12.11 02/21/22: pt reports constipati on has [...] foods Chronic ki dney disease stage 4 140630281 N18.4 Cr 2.79follow ing with Dr. Mcnulty (Nephrolog y) and Dr. Collins (Urology)M RI showed 6.1 cm mass to R kidney consistent with renal cell carcinomap t states that he is waiting to see if kidney function improves, if not he will have to go on dialysis or have R kidney removedreq uested records [id number] [facility] [address] [place] [address] 04/26/2022 10:13:50 04/27/2022 10:16:08 Chronic kidney disease stage 4 549715648 N18.4 05/10/22: R nephrectom y on 05/10/22 [...] R kidney removedreq uested records Essential hypertension 57555914 I10 04/26/22: BP 166/86did not take BP medication s yethas been out of meds x5 dayswill refill, hold lasix 02/21/22: BP controlled todayno med changesreq uested records from nephrology and urology 12/30/21: Cr 2.79- advised pt of lab results, CKD stage 4 and rec'd pt go to hospital. he was amendable to go to [place] 12/28/21:casa beckham labspt taking lasix, unsure of why he is takingwill check kidney function today to see if can dc Neuropathy 061646782 G62 .9 04/26/22:do ne 04/14/22wil l request records 02/21/22:pt has upcoming EMGs scheduled 12/28/21:ch ronic to bilateral feet x30 yrsdecreas ed sensation to ball of right foot up to toes and unable to feel sensation from ball of L foot up to toesEMG Umbilical hernia 6687336 07 K42.9 PEx- non-reduci ble, non-tender , not strangulat edremoval 05/10/[address] Benjamin Bilateral hearing loss 01935685 H91.93 c/o chronic tinnitushe ars mumbling when in conversati ons with multiple people, hard to focus hearingfam felecia told him he has hearing issuesPEx- bilateral EACs clear, TMs nlwill order hearing screen at f/u Depression screening 171 507767 Z13.31 PHQ 0 Renal cell carcinoma 702 146639 C64.9 MRI showed 6.1 cm mass to R kidney consistent with renal cell carcinomaR nephrectom y on 05/10/22 [id number] Darci milner MD [facility] [address] [place] [address] 05/25/2022 11:41:52 05/26/2022 13:24:04 Renal cell carcinoma 253241598 C64.9 05/25/22: pt reports surgery went wellpathol ogy study showed 7.5 cm renal cell carcinoma, R nephrectom y, all margins negative for invasive carcinomah as f/u with surgeon tomorrow 04/26/22:MR I showed 6.1 cm mass to R kidney consistent with renal cell carcinomaR nephrectom y on 05/10/22 Chronic ki dney disease stage 4 767812025 N18.4 05/26/22:sp marzena with Kaya Shahid, pt's [...] R kidney removedreq uested records Essential hypertension 53020958 I10 05/25/22:ca n take ASA for primary [...] hospital. he was amendable to go to [place] 12/28/21:casa beckham labspt taking lasix, unsure of why he is takingwill check kidney function today to see if can dc Umbilical hernia 1757937 07 K42.9 05/25/22:merchant d f/u with surgeon yesterday, mesh is in place, minor swelling, not concerned 04/26/22:PE x- non-reduci ble, non-tender , not strangulat edremoval 05/10/[address] Benjamin Neuropathy 401980026 G62 .9 05/25/22:EM G showed severe motor [...] foot up to toesEMG Bilateral hearing loss 94457433 H91.93 05/25/22:re georges for hearing screenprin madie off referral and encouraged pt to call to schedule appt 04/26/22:c/ o chronic tinnitushe ars mumbling when in conversati ons with multiple people, hard to focus hearingfam felecia told him he has hearing issuesPEx- bilateral EACs clear, TMs nlwill order hearing screen at f/u Depression screening 171 903941 Z13.31 PHQ 0 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 973864184 M21.6X9 05/26/22:di scussed results with pt and sisterXR L foot showed hypertroph ic bony fusion at 1st MTP joint, arterial calcificat ionspt denies any pain or issues with walkingwil l refer to podiatry 05/25/22:L MTP joint enlarged, unable to extend L big toeno pain Chronic neck pain 838829 9130 107 M54.2 05/16/22: discussed results with pt [...] spineorder ed XR C spine Alcohol dependence 64030 003 F10.20 drinking 1 pint of cheap vodka per day x3 yrsstopped [address] to [address] is requesting medication to help with withdrawal sxdiscusse d that pt is not showing withdrawal symptoms, out of withdrawal window at this timeoffere d outpatient treatment, pt refused at this time [id number] [facility] [address] [place] [address] 06/24/2022 09:46:21 06/28/2022 10:02:50 Essential hypertension 77001279 I10 06/24/22:BP check 132/74BP at home 120s-150s/ [...] hospital. 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 he was amendable to go to [place] 12/28/21:casa meyerne labspt taking lasix, unsure of why he is takingwill check kidney function today to see if can dc Bilateral hearing loss 09004243 H91.93 07/01/22:horacio ivan with audiologis t who [...] TMs nlwill order hearing screen at f/u [id number] INGE HACKETT [facility] [address] [place] [address] 08/15/2022 10:51:52 08/16/2022 12:08:52 Essential hypertension 91737440 I10 08/15/22: BP 138/84took meds 1 hour [...] hospital. he was amendable to go to [place] 12/28/21:casa beckham labspt taking lasix, unsure of why he is takingwill check kidney function today to see if can dc Neuropathy [id number] G62 .9 08/15/22: neuro told pt, neuropathy is likely due to alcohol useDrJennyfer Alegria at [place] (Neurology ), did blood work, pt has [...] foot up to toesEMG Chronic neck pain 950633 3281 107 M54.2 08/15/22:n euro told pt not [...] ed XR C spine Bilateral hearing loss 06850955 H91.93 08/15/22:i nsurance will not cover hearing aideshas appt to get fitted for hearing aides tomorrow [facility] ates he has to buy hearing aides [...] order hearing screen at f/u Alcohol dependence 10149 003 F10.20 08/15/22:4 ounces/day trying to cut [...] time Chronic ki dney disease stage 5 040785177 N18.5 08/15/22:S aw nephro 08/02/22:h old KERI/ARB [...] removedreq uested records Tobacco de pendence syndrome 40912381 F17.200 1/2 ppd currentlyw as smoking 1.5 ppd to 2 ppd before kidney surgerytri al nicotine patches Chronic ki dney disease stage 4 150368221 N18.4 07/01/22:co mpleted kidney smart classfollo wing [...] or have R kidney removedreq uested records [id number] INGE HACKETT [facility] [address] [place] [address] 10/24/2022 09:47:18 10/26/2022 09:28:07 Chronic kidney disease stage 5 501610120 N18.5 10/24/22:fis xiao R forearm, placed 09/20/22not [...] peritoneal dialysisha s appt on 09/02/22 at [place] 07/01/22:co mpleted kidney smart classfollo wing with [...] R kidney removedreq uested records Essential hypertension 10628227 I10 10/24/22:BP 128/72refi ll meds 08/15/22:B P [...] hospital. he was amendable to go to [place] 12/28/21:ro utine labspt taking lasix, unsure of why he is takingwill check kidney function today to see if can dc Bilateral hearing loss 94774391 H91.93 10/24/22:rec 'd hearing aide to [place] [facility] 08/15/22:i nsurance will not cover hearing aideshas appt to get fitted for hearing aides tomorrow at [facility] he has to buy hearing aides OTC [...] nlwill order hearing screen at f/u Neuropathy [id number] G62 .9 10/24/22:has f/u in 1 mo 08/15/22: neuro told pt, neuropathy is likely due to alcohol useDrJennyfer Alegria at [place] (Neurology ), did blood work, pt has [...] up to toesEMG Tobacco de pendence syndrome 05309229 F17.200 10/24/22:unk nown if can try wellbutrin due to CKDover 1/2 ppd 08/15/22:1 /2 ppd currentlyw as smoking 1.5 ppd to 2 ppd before kidney surgerytri al nicotine patches Alcohol dependence 04951 003 F10.20 10/24/22:sti ll drinking 4 ounces/day [...] this time Administra tion of influenza vaccine 85116863 Z23 Screening for malignant neoplasm of colon 339393512 Z12.11 10/24/22:ref er for colonoscop y 02/21/22: [...] increasing fluid intake, high fiber foods Overweight 829690172 E66 .3 discussed increasing exercise and healthier food options Depression screening 171 232318 Z13.31 PHQ 0 [id number] INGE HACKETT [facility] [address] [place] [address] 12/19/2022 10:53:06 12/19/2022 11:28:41 Chronic kidney disease stage 5 580983984 N18.5 12/19/22:rob d trying to hold off [...] peritoneal dialysisha s appt on 09/02/22 at [place] 07/01/22:co mpleted kidney smart classfollo wing with [...] R kidney removedreq uested records Essential hypertension 87865957 I10 12/19/22:BP 138/70 10/24/22:BP 128/72refi ll meds [...] hospital. he was amendable to go to [place] 12/28/21:casa beckham labspt taking lasix, unsure of why he is takingwill check kidney function today to see if can dc Tobacco de pendence syndrome 53476620 F17.200 12/19/22:has n't tried yet wellbutrin encouraged to trial for smoking cessation 10/24/22:unk nown if can try wellbutrin due to CKDover 1/2 ppd 08/15/22:1 /2 ppd currentlyw as smoking 1.5 ppd to 2 ppd before kidney surgerytri al nicotine patches Alcohol dependence 06863 003 F10.20 12/19/22:unc hangedrefu sed outpatient tx [...] time Screening for malignant neoplasm of colon 941333242 Z12.11 12/19/22:com pleted 11/14/22, repeat in 3 [...] increasing fluid intake, high fiber foods Fatigue 11656367 R53.83 x1 motakes daily Vit V3umiwoun 6 days/weeks tarted lasix 2 wks ago and waking up 3x/nightSO B worse with laying flat and with exertionde scribes as tired gai daysi 8 lbs in 1 moPEx- nlcheck vitamins and probnpUS echo Depression screening 171 661176 Z13.31 PHQ 0 [id number] INGE HACKETT [facility] [address] [place] [address] 06/13/2023 09:57:00 06/15/2023 12:25:24 Chronic kidney disease stage 5 130436855 N18.5 06/13/23:st ill holding off on dialysisha s f/u with Dr. Mcnulty in 3 monthslabs 05/30/23: Cr 6.7, eGFR 8 12/19/22:rob d trying to hold off on dialysis as long as possiblest arted back on lasix due to swelling in his legshas f/[facility] 10/24/22:fis xiao [...] peritoneal dialysisha s appt on 09/02/22 at [place] 07/01/22:co mpleted kidney smart classfollo wing with [...] Dr Mayberry (Urology [facility])follow ing with Dr. cMnulty (Nephrolog y)spoke with Dr. Mcnulty, will resume [...] removedreq uested records Tobacco de pendence syndrome 49836547 F17.200 06/13/23:1 ppdwellbut rin caused testicles to swellpatch es make him itchnot ready to quit 12/19/22:has n't tried yet wellbutrin encouraged to trial for smoking cessation 10/24/22:unk nown if can try wellbutrin due to CKDover 1/2 ppd 08/15/22:1 /2 ppd currentlyw as smoking 1.5 ppd to 2 ppd before kidney surgerytri al nicotine patches Alcohol dependence 61069 003 F10.20 06/13/23:dr muse 2 ounces of [...] pt refused at this time Essential hypertension 51163603 I10 06/13/23:BP 150/70took meds 1 hr agoadvised [...] hospital. he was amendable to go to [place] 12/28/21:casa beckham labspt taking lasix, unsure of why he is takingwill check kidney function today to see if can dc Pelvic lymphadenopathy 925852366 R59.0 found on PET scan 05/23/23:non -specific mild L pelvic LAD, prostatome daija with small focus of asymmetric increased uptake at posterior left prostate, correlate with PSA level, cholelithi asis, unchanged 5.1 cm infrarenal AAAfollowi ng with Oncologyha s another scan tomorrow Diarrhea 92566203 R19.7 x1 trevon the morning and at [...] will refer to GI Depression screening 171 833211 Z13.31 PHQ 0 [id number] INGE HACKETT [facility] [address] [place] [address] 08/04/2023 10:47:09 08/14/2023 11:09:17 Chronic kidney disease stage 5 561110232 N18.5 08/04/23:s till holding off on dialysisha [...] legshas [facility] 10/24/22:fis xiao [...] peritoneal dialysisha s appt on 09/02/22 at [place] 07/01/22:co mpleted kidney smart classfollo wing with [...] R kidney removedreq uested records Essential hypertension 99375022 I10 08/04/23:B P 179/73, 140/70take s meds [...] hospital. he was amendable to go to [place] 12/28/21:ro mitchne labspt taking lasix, unsure of why he is takingwill check kidney function today to see if can dc Depression screening 171 822646 Z13.31 PHQ 0 Pelvic lymphadenopathy 701215460 R59.0 08/04/23:p er patient- biopsy was negativere peat CT scan Oct 2023 and f/u with oncology in Nov 2023 06/13/23:fo und on PET scan 05/23/23:non -specific mild L pelvic LAD, prostatome daija with small focus of asymmetric increased uptake at posterior left prostate, correlate with PSA level, cholelithi asis, unchanged 5.1 cm infrarenal AAAfollowi ng with Oncologyha s another scan tomorrow Alcohol dependence 78912 003 F10.20 08/04/23:w ants to quitdoes not [...] at this time Tobacco de pendence syndrome 70871956 F17.200 08/04/23:1 /2 ppd to 1 ppd [...] nicotine patches Administra tion of influenza vaccine 28532134 Z23 [id number] INGE HACKETT [facility] [address] [place] [address] 12/24/2024 16:36:09 12/24/2024 17:18:59 End-stage renal disease 36076697 N18.6 refill [facility] [place], Brittany, Sat Smoker 52751973 F17.200 still smoking 1/2 ppd Essential hypertension 00602193 I10 BP 125/78refi meds Hyperlipidemia 39485765 E78.5 refill Chronic ob structive pulmonary disease 53873158 J44.9 refill Hospital i npatient stay within past 30 days [id number] 106 Z76.89 Admitted to [facility] in [place] 10/24/24 to 11/26/24 To micah Crowder Luther is a 64 y.o. male with a pertinent history significan t for ESRD on HD TTS, AAA, DVT, persistent A-fib, HTN, adrenal mass/pulmo nary nodules, renal cell carcinoma, peripheral vascular disease, who presented with initially to outside hospital ([place]) for evaluation of necrotic left foot. Due to gangrene of the left foot patient was transferre d to [facility] for vascular surgery evaluation .Patient was [...] clinic on discharge. Renal cell carcinoma 702 414293 C64.9 12/25/24: OV with Dr. Carrasco (Oncology) [...] nephrectom y on 05/10/22 Depression screening 171 107635 Z13.31 PHQ 0 Health Concerns Section Related Observation LastModified by Organization Detai ls LastModified Time None Recorded Concern Status LastModified by Organization Details LastModified Time None Recorded Advance Directives Directive None Recorded Payers Encounter Date Sequence Insurance Name Policy Number Policy Simons Covered Member ID Simons Member ID Guarantor Name 10/24/2022 2 *SELF PAY* To micah Sloan 10/24/2022 1 [employer] (PPO) [id number] Kar Sloan [id number] Kar Sloan 12/19/2022 1 [facility]-[employer] - [employer] HE[employer] STRATEGIES - CIG (PPO) Kar Sloan [id number] Kar Sloan 06/13/2023 1 [place] [id number] Kar Sloan [id number] Kar Sloan 08/04/2023 1 [place] [id number] Kar Sloan [id number] Kar Thackerner 12/24/2024 1 [place] [id number] Kar Sloan [id number] Kar Sloan Notes Date Note Type Note Provider Name and Address Organization Details Recorded Time 10/24/2022 text/html Pt presents for f/u. Reports he had fistula placed to R arm on 09/20/22. He has f/u with nephrology about dialysis in 1 mo. INGE HACKETT Attn: Accounting,[address] [facility], [place], [address], [facility] [place] 10/24/2022 13:56:30 12/19/2022 text/html Pt [...] at rest. INGE HACKETT Attn: Accounting[address] [facility], [place], [address], [facility] 12/19/2022 21:09:16 06/13/2023 text/html Pt [...] HACKETT Attn: Accounting,[address], [place], [address], [place] [facility] 06/13/2023 11:41:27 08/04/2023 text/html [...] HACKETT Attn: Accounting,[address], [place], [address], [place] [facility] 08/04/2023 12:39:28 12/24/2024 text/html Pt presents for FMLA paperwork. Last OV with PCP 07/2023. 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 He was admitted to [place] 11/13/24, transferred to [facility] and discharged 11/26/24. He is following closely with Dr. Luciano (Podiatry), Dr. Carrasco (Oncology), Dr. Dykes (Vascular), and Dr. Mcnulty (Nephrology). 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 Pt completed PT and has home health to change dressings on his feet. Requesting FMLA for 12 wks. INGE HACKETT Attn: Accounting,[address], [place], [address], [place] [facility] 12/30/2024 09:20:46
== END 2025-01-07 15:50 | disposition home or self-care (01) ==
PROVIDERS: Radiology Diagnostic Radiology; PCP Physician Assistant; Referring Provider Internal Medicine Hematology & Oncology; Visit Provider Internal Medicine Hematology & Oncology
PROC: BW20ZZZ Computerized Tomography (CT Scan) of Abdomen (ICD-10-PCS; CPT 77012; principal; 2025-01-07 11:00)
DX: C64.1 Malignant neoplasm of right kidney, except renal pelvis (principal); I71.43 Infrarenal abdominal aortic aneurysm, without rupture
CPT/HCPCS: 49180; 77012; 88305; 88342

== ENCOUNTER 2025-01-31 10:00 | Outpatient (CLI) | payer BC, SELFPAY ==
--- OUTSIDE RECORDS SUMMARY | 2025-01-31 10:10 | XMS_ITS | Clinical Summary ---
Author Organization [facility] Address [address] [address] Phone Care Team Providers Care Dyeing Machine Tender Name Role Phone Unavailable Primary Care Provider [...] 01/03/2025 1:00 PM CDT Home Care Visit [address] [address] Leela Rao, RN SN - OASIS DISCHARGE 12/26/2024 12:30 PM CDT Home Care Visit [address] [address] Leela Rao RN SN - WOUND VISIT 12/23/2024 1:30 PM CDT Home Care Visit [address] [address] Sidra Noble LPN SN - WOUND VISIT 12/19/2024 5:00 PM IT WEB DEVELOPMENT CONSULTANT Home Care Visit [address] [address] Leela Rao, RN SN - WOUND VISIT 12/17/2024 11:30 AM IT WEB DEVELOPMENT CONSULTANT Home Care Visit [address] [address] Cintia Chen, PT PT - DISCIPLINE DISCHARGE 12/16/2024 2:00 PM IT WEB DEVELOPMENT CONSULTANT Home Care Visit [address] [address] Loreto Green, MAIN LINE ASSEMBLER PT - HOME VISIT 12/16/2024 2:00 PM IT WEB DEVELOPMENT CONSULTANT Home Care Visit [address] [address] Leela Rao, RN SN - WOUND VISIT 12/16/2024 Home Care Visit [address] [address] Leela Rao, RN TELEPHONE ENCOUNTER 12/12/2024 11:30 AM IT WEB DEVELOPMENT CONSULTANT Home Care Visit [address] [address] Loreto Green, MAIN LINE ASSEMBLER PT - HOME VISIT 12/12/2024 Home Care Visit [address] [address] Kirstin Santana OT OT - DISCHARGE SUMMARY 12/11/2024 2:30 PM IT WEB DEVELOPMENT CONSULTANT Home Care Visit [address] [address] Leela Rao, RN SN - WOUND VISIT 12/10/2024 2:00 PM IT WEB DEVELOPMENT CONSULTANT Home Care Visit [address] [address] Xiomara Jiang, PAN WASHER HAND OT - DISCIPLINE DISCHARGE 12/10/2024 10:00 AM IT WEB DEVELOPMENT CONSULTANT Home Care Visit [address] [address] Loreto Green, MAIN LINE ASSEMBLER PT - HOME VISIT 12/10/2024 Home Care Visit [address] [address] Xiomara Jiang, RENETTA CASE COMMUNICATION 12/09/2024 11:30 AM IT WEB DEVELOPMENT CONSULTANT Home Care Visit [address] [address] Sidra Noble LPN SN - WOUND VISIT 12/06/2024 1:30 PM IT WEB DEVELOPMENT CONSULTANT Home Care Visit [address] [address] Leela Rao, RN SN - WOUND VISIT 12/05/2024 12:30 PM IT WEB DEVELOPMENT CONSULTANT Home Care Visit [address] [address] Loreto Green, MAIN LINE ASSEMBLER PT - HOME VISIT 12/05/2024 11:00 AM IT WEB DEVELOPMENT CONSULTANT Home Care Visit [address] [address] Xiomara Jiang, RENETTA OT - HOME VISIT 12/05/2024 Home Care Visit [address] [address] Xiomara Jiang, PAN WASHER HAND CASE COMMUNICATION 12/03/2024 12:00 PM IT WEB DEVELOPMENT CONSULTANT Home Care Visit [address] [address] Loreto Green, MAIN LINE ASSEMBLER PT - HOME VISIT 12/03/2024 9:30 AM IT WEB DEVELOPMENT CONSULTANT Home Care Visit [address] [address] Kirstin Santana OT OT - HOME VISIT 12/03/2024 Home Care Visit [address] [address] Leela Rao, RN CARE CONFERENCE 12/02/2024 3:30 PM IT WEB DEVELOPMENT CONSULTANT Home Care Visit [address] [address] Leela Rao, RN SN - WOUND VISIT 11/29/2024 2:00 PM IT WEB DEVELOPMENT CONSULTANT Home Care Visit [address] [address] Leela Rao RN SN - WOUND VISIT 11/29/2024 9:15 AM IT WEB DEVELOPMENT CONSULTANT Home Care Visit [address] [address] Kirstin Santana OT OT - INITIAL EVALUATION 11/28/2024 3:00 PM IT WEB DEVELOPMENT CONSULTANT Home Care Visit [address] [address] Cintia Chen, PT PT - INITIAL EVALUATION 11/28/2024 Home Care Visit [address] [address] Cintia Chen, PT TELEPHONE ENCOUNTER 11/28/2024 Home Care Visit [address] [address] Damaris An RN TELEPHONE ENCOUNTER 11/27/2024 11:00 AM IT WEB DEVELOPMENT CONSULTANT Home Care Visit [address] [address] Leela Rao RN SN - OASIS START OF CARE 11/27/2024 Plan of Care Documentation [address] [address] from Last 3 Months Social History Tobacco [...] (196 lb 3.4 oz) 12/17/2024 11:30 AM IT WEB DEVELOPMENT CONSULTANT Height 182.9 cm (6') 11/29/2024 9:36 AM IT WEB DEVELOPMENT CONSULTANT Body Mass Index 26.61 11/29/2024 9:36 AM IT WEB DEVELOPMENT CONSULTANT Plan of Treatment Health Maintenance Due Date Last Done Comments Hepatitis C Virus (HCV) Screening 1960 Colonoscopy 2005 Colorectal Cancer Screening 2005 Cologuard 2010 Immunochemical Fecal Occult Blood 2010 Zoster Immunization (1 of 2) 2010 PSA Discussion 2015 SARS-COV-2 Immunization ( season) 2024 04/01/2022, 03/22/2022, 08/26/2021, Additional history exists Influenza Immunization (Season Ended) 2025 08/04/2023, 10/24/2022, 08/10/2021, Additional history exists Respiratory Syncytial Virus (RSV) [...] patient's age to complete this topic Insurance Advance Directives * Full Code (Latest Code Status on File) Date Activated Date Inactivated Comments 11/27/2024 4:04 PM
--- OUTSIDE RECORDS SUMMARY | 2025-01-31 10:10 | XMS_ITS ---
[facility] Address [address] [place] [address] Care Team Providers Care Insurance Claims Examiner Name Role Phone Unavailable Primary Care Provider [...]
--- OUTSIDE RECORDS SUMMARY | 2025-01-31 10:10 | XMS_ITS | Clinical Summary ---
Author Organization [facility] Address [facility] [place] [address] Care Team Providers Care Dredge Or Barge Shore Hand Name Role Phone Gia Clark PA-C Primary Care Provider [phone] Allergies No known active allergies Medications sodium [...] 2024 04/01/2022, 08/26/2021, 12/16/2020, Additional history exists RSV Immunization or 60+ Years (1 - 1-dose 75+ series) 2035 Meningococcal B Vaccine Aged Out No l onger eligible based on patient's age to complete this topic Meningococcal Vaccine Aged Out No pia angelita eligible based on patient's age to complete this topic Pneumococcal Vaccine: Pediatrics (0 to 5 Years) and At-Risk Patients (6 to 49 Years) Aged Out No longer eligible based on patient's age to complete this topic RSV Immunizations Under 20 Months Aged Out No longer eligible based on patient's age to complete this topic Medical Devices Implanted Type Area Public Speaking Coach Device Identifier Shelf Expiration Date Model / Serial / Lot Dirk Clareon Iol Implanted:Qty: 1 on 06/13/2022 by Jung Rosales MD at [facility] Left: Eye DIRK - SURGICAL DIV 02/27/2025 [id number] / [id number] / [facility] [place] [address] [facility] Care Teams Dredge Or [place]ge [place] Hand Relationship Specialty Start Date End Date Gia Clark PA-C PCP - General PHYSICIAN FINISHER MACHINE 06/13/22
--- OUTSIDE RECORDS SUMMARY | 2025-01-31 10:10 | XMS_ITS | Clinical Summary ---
Author Organization [facility] Rasheed Rivas Address [address] [place] [address] Care Team Providers Care [employer] Flake Miller Name Role Phone Unavailable Primary Care Provider [...] daily. 60 Tablet 1 11/26/2024 5:26 PM DYNAMOMETER REPAIRER Active atorvastatin (LIPITOR) 40 mg tablet Take 1 Tablet (40 mg) by mouth daily at bedtime. 30 Tablet 2 11/26/2024 5:26 PM DYNAMOMETER REPAIRER Active sennosides-docus ate sodium (SENNA-S) 8.6-50 mg tablet Take 1 Tablet by mouth 2 times daily. Active fluticasone furoate-vilanter oL (BREO ELLIPTA) 200-25 mcg/dose Disk with Device Starting 11/26/24, Take 1 Puff by inhalation daily. 60 Each 2 11/26/2024 5:26 PM DYNAMOMETER REPAIRER Active axitinib 5 mg tablet Take 1 Tablet (5 mg) by mouth 2 times daily. 60 Tablet 1 Active Active Problems Problem Noted Date Diagnosed [...] Encounters Date Type Department Care Team Description 01/22/2025 9:41 AM CDT - 01/22/2025 11:59 PM CDT Hospital Encounter [facility] Hyperbaric and Wound [facility] [place] [address] [address] Jesus Luciano DPM Discharge Disposition: Home or Self Care 01/22/2025 Orders Only [facility] Oncology and Hematology [place] [address] [place] [address] Aydin Carrasco MD Need for hepatitis B screening test (Primary Dx) 01/21/2025 External Device Data STL ABSTRACTION Provider, Abstract 01/20/2025 4:00 PM CDT Telephone Check Up [facility] Oncology and Hematology [facility] [address] [place] [phone] Aydin Carrasco MD Renal cell carcinoma of right kidney (CMS/HCC) (Primary Dx) 01/09/2025 Orders Only [facility] Oncology and Hematology [facility] [address] [place] [address] Aydin Carrasco MD 01/03/2025 Abstract [facility] Heart and Vascular Surgery [address] [address] [facility] [address] [address] [facility] 101 [place] [address] Shanika Sebastian FNP 01/02/2025 3:30 PM CDT Office Visit [facility] Heart and Vascular Surgery [address] [place] [address] [address] [facility] 101 [place] [address] Shanika Sebastian FNP PVD (peripheral vascular disease) (Primary Dx) 01/02/2025 1:31 PM CDT - 01/02/2025 11:59 PM CDT Hospital Encounter [facility] Heart and Vascular Testing [facility] [address] [place] [address] Patricia Quezada NP Discharge Disposition: Home or Self Care 01/01/2025 11:00 AM CDT - 01/01/2025 11:59 PM CDT Hospital Encounter [facility] [address] [place] [address] Jesus Luciano, DPM Discharge Disposition: Home or Self Care 01/01/2025 External Device Data STL ABSTRACTION Provider, Abstract 12/21/2024 External Device Data STL ABSTRACTION Provider, Abstract 12/20/2024 External Device Data STL ABSTRACTION Provider, Abstract 12/18/2024 10:37 AM DYNAMOMETER REPAIRER - 12/18/2024 11:59 PM DYNAMOMETER REPAIRER Hospital Encounter [facility] [place] [address] [place] [address] Jesus Luciano, DPM Discharge Disposition: Home or Self Care 12/18/2024 External Device Data STL ABSTRACTION Provider, Abstract 12/17/2024 External Device Data STL ABSTRACTION Provider, Abstract 12/16/2024 9:15 AM DYNAMOMETER REPAIRER Office Visit [facility] Oncology and Hematology [facility] [address] [place] [address] Aydin Carrasco MD Renal cell carcinoma of right kidney (CMS/HCC) (Primary Dx) 12/11/2024 Abstract [facility] Oncology and Hematology [facility] [address] [place] [address] Aydin Carrasco MD 12/11/2024 Orders Only [facility] Oncology and Hematology [facility] [address] [place] [address] Aydin Carrasco MD 12/06/2024 Telephone [facility] Heart and Vascular Surgery [address] [facility] 101 [address] [facility] [address] [place] [address] Franca Dykes MD Question 12/03/2024 External Device Data STL ABSTRACTION Provider, Abstract 11/28/2024 Abstract [facility] Heart and Vascular Surgery [address] [facility] 101 [address] [facility] [address] [place] [address] Franca Dykes MD 11/28/2024 Telephone [facility] Heart and Vascular Surgery [address] [facility] 101 [address] [facility] 101 [place] [address] Frnaca Dykes MD short term disability forms 11/27/2024 Telephone [facility] Heart and Vascular Surgery [address] [facility] [address] [address] Patricia Quezada, MANAGER FLIGHT Needs Appointment 11/27/2024 Abstract [facility] Heart and Vascular Surgery [address] [place] [address] [address] Franca Dykes MD 11/23/2024 11:37 AM [facility] Anesthesia Event [facility] Operating Room [id number] [place] [address] Reinier Dale MD Tao, Yongping, MD 11/23/2024 8:42 AM DYNAMOMETER REPAIRER - 11/23/2024 9:54 AM [facility] Surgery [facility] Operating Room [id number] [place] [address] Jesus Luciano, DPM RIGHT GREAT TOE AMPUTATION 11/23/2024 Travel 11/20/2024 7:30 AM [facility] - 11/20/2024 5:21 PM [facility] Surgery [facility] Vascular Operating Room [id number] [place] [phone] Franca Dykes MD COMMON, SUPERFICIAL, AND PROFUNDA RIGHT FEMORAL ENDARTERECTOMY, RIGHT LOWER EXTREMITY ANGIOGRAM, IVUS AND SHOCKWAVE TO RIGHT SFA AND POPLITEAL, AND DRUG COATED BALLOON ANGIOPLASTY TO RIGHT SFA AND POPLITEAL 11/20/2024 7:30 AM DYNAMOMETER REPAIRER Anesthesia Event [facility] Operating Room [id number] [place] [address] Kianna Lu MD Grahek-Lindsey, Lisa M PA-C 11/19/2024 External Device Data STL ABSTRACTION Provider, Abstract 11/19/2024 External Device Data STL ABSTRACTION Provider, Abstract 11/19/2024 External Device Data STL ABSTRACTION Provider, Abstract 11/13/2024 6:57 PM DYNAMOMETER REPAIRER - 11/26/2024 6:16 PM DYNAMOMETER REPAIRER Hospital Encounter [facility] [address] [place] [address] Chong Garcia MD Idemudia, Osarenren, MD Bagam, Vaghdevi, MD Miller, Brian P, MD Suarez Solar, Pedro, MD Necrotic toes (CMS/HCC) Discharge Disposition: Home or Self Care 11/13/2024 Travel 11/07/2024 External Device Data STL ABSTRACTION Provider, Abstract 11/05/2024 Orders Only [facility] Oncology and Hematology - [place] [address] [place] [phone] Aydin Carrasco MD from Last 3 Months Family History Medical [...] who hurts you emotionally and/or physically? No 01/22/2025 Food Insecurity Answer Date Recorded Social/Environmental Concerns [...] Sign Reading Time Taken Comments Blood Pressure 151/87 01/22/2025 9:00 AM CDT Pulse 84 01/22/2025 9:00 AM CDT Temperature 36.4 C (97.6 F) 01/22/2025 9:00 AM CDT Respiratory Rate 20 01/22/2025 9:00 AM CDT Oxygen Saturation 99% 01/02/2025 3:08 PM CDT Inhaled Oxygen Concentration - - Weight 89.8 kg (198 lb) 01/22/2025 9:00 AM CDT Height 182.9 cm (6') 01/22/2025 9:00 AM CDT Body Mass Index 26.85 01/22/2025 9:00 AM CDT Plan of Treatment Upcoming Encounters Date Type Department Care Team (Late st Contact Info) Description 02/05/2025 10:00 AM CDT Appointment [facility]ound Care [address] [address] [place] [phone] Jesus Luciano, DPNegro [address] [place], [place] [phone] 04/14/2025 10:15 AM CDT Appointment [facility] Heart and Vascular Testing [place] [address] [facility] [address] [place] [address] Shanika Sebastian FNP [address] [facility] [place] [address] [place] [address] 04/14/2025 11:30 AM CDT Office Visit [facility] Heart and Vascular Surgery [address] [facility] 101 [address] [facility] 101 [place] [address] [place] [address] [facility] 101 [place] [address] Health Maintenance Due Date Last Done Comments [...] 2024 04/01/2022, 08/26/2021, 12/16/2020, Additional history exists Preventative Visit- Commercial 10/16/2024 Pre-Diabetes and Diabetes Screening 11/14/2027 11/14/2024 DTAP/TDAP/TD VACCINES (3 - T d or Tdap) 07/15/2032 07/15/2022, 07/05/2022 Medical Devices Implanted Type Area Can Line Examiner Device Identifier Shelf Expiration Date Model / Serial / Lot Patch Vascu-Guard 1.0x10cm [id number] - [id number] Implanted:Qty: 1 on 11/20/2024 by Franca Dykes MD at [facility] Right: Groin [employer] 09/03/2025 [id number] / / [id number] Patch Vascu-Guard 0.8x8cm Cardio Vg-0108 - [id number] Implanted:Qty: 1 on 11/20/2024 by Franca Dykes MD at [facility] Right: Groin [employer] 05/20/2026 [id number] / / [id number] Hemostatic Surgifoam Sz12-7 1971 - [id number] Implanted:Qty: 1 on 11/20/2024 by Franca Dykes MD at [facility] Hemostatic Right: Groin [employer] 03/11/20281971 / / [id number] Hemostatic Surgiflo 8ml W/ Thrombin 2994 - [id number] Implanted:Qty: 1 on 11/20/2024 by Franca Dykes MD at [facility] Hemostatic [employer] 10/15/2025 [id number] / / [id number] Procedures Procedure Name Priority Date/Time Associated Diagnosis Comments ANAEROBIC/AEROBIC CULTURE W GRAM STAIN Routine 01/22/2025 10:27 AM CDT 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, unspecified laterality (CMS/HCC) PATHOLOGY REPORT Routine 01/07/2025 3:59 PM CDT US ANKLE PRESSURE INDEX Routine 01/03/20 3:13 PM CDT PVD (peripheral vascular disease) ANAEROBIC/AEROBIC CULTURE W GRAM STAIN Routine 12/18/2024 11:34 AM DYNAMOMETER REPAIRER 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, unspecified laterality (CMS/HCC) BASIC METABOLIC PANEL Routine 12/11/2024 4:32 PM DYNAMOMETER REPAIRER CBC WITH AUTODIFFERENTIAL Routine 12/11/2024 11:49 AM DYNAMOMETER REPAIRER VANCOMYCIN LEVEL RANDOM Routine 11/26/19 4:39 AM DYNAMOMETER REPAIRER RENAL FUNCTION PANEL Routine 11/26/2024 4:39 AM DYNAMOMETER REPAIRER PTT Timed Study 11/25/2024 7:42 PM DYNAMOMETER REPAIRER TELEMETRY REPORT 11/25/2024 3:26 PM DYNAMOMETER REPAIRER TELEMETRY REPORT 11/25/2024 3:06 PM DYNAMOMETER REPAIRER TELEMETRY REPORT 11/25/2024 2:57 PM DYNAMOMETER REPAIRER TELEMETRY REPORT 11/25/2024 2:45 PM DYNAMOMETER REPAIRER PTT Routine 11/25/2024 12:14 PM DYNAMOMETER REPAIRER TELEMETRY REPORT 11/25/2024 10:16 AM DYNAMOMETER REPAIRER TELEMETRY REPORT 11/25/2024 9:59 AM DYNAMOMETER REPAIRER TELEMETRY REPORT 11/25/2024 8:03 AM DYNAMOMETER REPAIRER PTT Routine 11/25/2024 3:11 AM DYNAMOMETER REPAIRER RENAL FUNCTION PANEL Routine 11/25/2024 3:11 AM DYNAMOMETER REPAIRER PTT Timed Study 11/24/2024 11:08 PM DYNAMOMETER REPAIRER PTT Timed Study 11/24/2024 3:52 PM DYNAMOMETER REPAIRER PTT Routine 11/24/2024 7:29 AM DYNAMOMETER REPAIRER CBC WITHOUT DIFFERENTIAL Routine 11/24/2024 2:56 AM DYNAMOMETER REPAIRER RENAL FUNCTION PANEL Routine 11/24/2024 2:56 AM DYNAMOMETER REPAIRER PTT Routine 11/23/2024 7:41 PM DYNAMOMETER REPAIRER VANCOMYCIN LEVEL RANDOM Timed Study 11/23/19 25 2:30 PM DYNAMOMETER REPAIRER PT EVAL AND TREAT Routine 11/23/2024 1:3 0 PM DYNAMOMETER REPAIRER XR FOOT 3+ VW RIGHT Routine 11/23/2024 1 :04 PM DYNAMOMETER REPAIRER PATHOLOGY Pathology 11/23/2024 11:55 AM DYNAMOMETER REPAIRER ANAEROBIC/AEROBIC CULTURE W GRAM STAIN Routine 11/23/2024 11:55 AM DYNAMOMETER REPAIRER TOE(S) AMPUTATION 11/23/2024 8:4 2 AM DYNAMOMETER REPAIRER UNKNOWN Special Needs SAW. DR ADAN T/F HIS OTHER CASE. TRANSFUSE PACKED RED BLOOD CELLS Routine 11/23/2024 8:36 AM DYNAMOMETER REPAIRER PREPARE RED BLOOD CELLS Routine 11/23/19 6:58 AM DYNAMOMETER REPAIRER TYPE AND SCREEN Routine 11/23/2024 3:44 AM DYNAMOMETER REPAIRER CBC WITH DIFFERENTIAL Routine 11/23/2024 3:44 AM DYNAMOMETER REPAIRER PTT Routine 11/23/2024 3:44 AM DYNAMOMETER REPAIRER RENAL FUNCTION PANEL Routine 11/23/2024 3:44 AM DYNAMOMETER REPAIRER PTT Timed Study 11/22/2024 10:33 PM DYNAMOMETER REPAIRER POTASSIUM LEVEL Stat 11/22/2024 4:05 PM DYNAMOMETER REPAIRER PTT Timed Study 11/22/2024 4:05 PM DYNAMOMETER REPAIRER HEMODIALYSIS Routine 11/22/2024 12:01 PM DYNAMOMETER REPAIRER VANCOMYCIN LEVEL RANDOM Stat 11/22/19 25 6:10 AM DYNAMOMETER REPAIRER CBC WITH DIFFERENTIAL Routine 11/22/2024 6:10 AM DYNAMOMETER REPAIRER RENAL FUNCTION PANEL Routine 11/22/2024 6:10 AM DYNAMOMETER REPAIRER PTT Timed Study 11/22/2024 6:10 AM DYNAMOMETER REPAIRER PTT Timed Study 11/21/2024 8:09 PM DYNAMOMETER REPAIRER PTT Timed Study 11/21/2024 9:31 AM DYNAMOMETER REPAIRER BASIC METABOLIC PANEL Stat 11/21/2024 6:01 AM DYNAMOMETER REPAIRER MAGNESIUM LEVEL Stat 11/21/2024 6:01 AM DYNAMOMETER REPAIRER POC GLUCOSE Routine 11/21/2024 5:39 AM DYNAMOMETER REPAIRER EKG 12-LEAD Stat 11/21/2024 5:29 AM DYNAMOMETER REPAIRER CBC WITH DIFFERENTIAL Routine 11/21/2024 2:25 AM DYNAMOMETER REPAIRER PTT Timed Study 11/21/2024 2:24 AM DYNAMOMETER REPAIRER VANCOMYCIN LEVEL RANDOM Timed Study 11/21/19 2:24 AM DYNAMOMETER REPAIRER RENAL FUNCTION PANEL Routine 11/21/2024 2:24 AM DYNAMOMETER REPAIRER VERIFICATION BLOOD GROUP Stat 11/20/2024 8:52 PM DYNAMOMETER REPAIRER HEMOGLOBIN AND HEMATOCRIT Stat 11/20/2024 3:13 PM DYNAMOMETER REPAIRER POC ACTIVATED CLOTTING TIME Routine 11/20/2024 1:23 PM DYNAMOMETER REPAIRER XR OR Routine 11/20/2024 1:12 PM DYNAMOMETER REPAIRER TRANSFUSE PACKED RED BLOOD CELLS Stat 11/20/2024 12:57 PM DYNAMOMETER REPAIRER POC ACTIVATED CLOTTING TIME Routine 11/20/2024 12:52 PM DYNAMOMETER REPAIRER PREPARE RED BLOOD CELLS Stat 11/20/19 25 12:18 PM DYNAMOMETER REPAIRER PREPARE RED BLOOD CELLS Routine 11/20/19 25 12:18 PM DYNAMOMETER REPAIRER POC ACTIVATED CLOTTING TIME Routine 11/20/2024 12:18 PM DYNAMOMETER REPAIRER POC LACTIC ACID Routine 11/20/2024 12:10 PM DYNAMOMETER REPAIRER OXIMETRY Routine 11/20/2024 12:10 PM DYNAMOMETER REPAIRER METHEMOGLOBIN QUANTITATIVE Routine 11/20/2024 12:10 PM DYNAMOMETER REPAIRER CARBOXYHEMOGLOBIN Routine 11/20/2024 12:10 PM DYNAMOMETER REPAIRER BLOOD GAS,(INCL. H+H, LYTES, GLUC) Routine 11/20/2024 12:10 PM DYNAMOMETER REPAIRER POC ACTIVATED CLOTTING TIME Routine 11/20/2024 11:40 AM DYNAMOMETER REPAIRER POC ACTIVATED CLOTTING TIME Routine 11/20/2024 11:33 AM DYNAMOMETER REPAIRER POC ACTIVATED CLOTTING TIME Routine 11/20/2024 10:57 AM DYNAMOMETER REPAIRER POC ACTIVATED CLOTTING TIME Routine 11/20/2024 10:53 AM DYNAMOMETER REPAIRER POC ACTIVATED CLOTTING TIME Routine 11/20/2024 10:42 AM DYNAMOMETER REPAIRER POC ACTIVATED CLOTTING TIME Routine 11/20/2024 10:10 AM DYNAMOMETER REPAIRER POC ACTIVATED CLOTTING TIME Routine 11/20/2024 9:56 AM DYNAMOMETER REPAIRER POC ACTIVATED CLOTTING TIME Routine 11/20/2024 9:25 AM DYNAMOMETER REPAIRER POC LACTIC ACID Routine 11/20/2024 8:50 AM DYNAMOMETER REPAIRER OXIMETRY Routine 11/20/2024 8:50 AM DYNAMOMETER REPAIRER METHEMOGLOBIN QUANTITATIVE Routine 11/20/2024 8:50 AM DYNAMOMETER REPAIRER CARBOXYHEMOGLOBIN Routine 11/20/2024 8:5 0 AM DYNAMOMETER REPAIRER BLOOD GAS,(INCL. H+H, LYTES, GLUC) Routine 11/20/2024 8:50 AM DYNAMOMETER REPAIRER VA ANES INSERT CATH, ART, PERCUT, SHORTTERM Routine 11/20/2024 8:36 AM DYNAMOMETER REPAIRER PERIPHERAL IV ADULT Routine 11/20/2024 8 :15 AM DYNAMOMETER REPAIRER VA ANES VNPNXR 3 YEARS/> PHYS/QHP SKILL Routine 11/20/2024 8:15 AM DYNAMOMETER REPAIRER VA ANES INSERT ENDOTRACHEAL AIRWAY Routine 11/20/2024 7:36 AM DYNAMOMETER REPAIRER FEMORAL ENDARTERECTOMY 7:26 AM DYNAMOMETER REPAIRER PVD Special Needs DR ADAN EV1 RM DR ADAN 7:30 START. TIME OK PER VICTOR HUGO/ CHARGE NURSE. TYPE AND SCREEN Stat 11/20/2024 3:53 AM DYNAMOMETER REPAIRER CBC WITH DIFFERENTIAL Stat 11/20/2024 3:52 AM DYNAMOMETER REPAIRER RENAL FUNCTION PANEL Stat 11/20/2024 3:52 AM DYNAMOMETER REPAIRER PTT Timed Study 11/20/2024 3:52 AM DYNAMOMETER REPAIRER TELEMETRY REPORT 11/19/2024 2:46 PM DYNAMOMETER REPAIRER TELEMETRY REPORT 11/19/2024 2:30 PM DYNAMOMETER REPAIRER CBC WITH DIFFERENTIAL Stat 11/19/2024 2:27 PM DYNAMOMETER REPAIRER BASIC METABOLIC PANEL Stat 11/19/2024 2:27 PM DYNAMOMETER REPAIRER PTT Stat 11/19/2024 2:27 PM DYNAMOMETER REPAIRER TELEMETRY REPORT 11/19/2024 2:01 PM DYNAMOMETER REPAIRER TELEMETRY REPORT 11/19/2024 1:33 PM DYNAMOMETER REPAIRER TELEMETRY REPORT 11/19/2024 11:40 AM DYNAMOMETER REPAIRER TELEMETRY REPORT 11/19/2024 11:31 AM DYNAMOMETER REPAIRER TELEMETRY REPORT 11/19/2024 10:22 AM DYNAMOMETER REPAIRER TELEMETRY REPORT 11/19/2024 9:57 AM DYNAMOMETER REPAIRER TELEMETRY REPORT 11/19/2024 9:20 AM DYNAMOMETER REPAIRER PTT Routine 11/19/2024 3:06 AM DYNAMOMETER REPAIRER CBC WITH DIFFERENTIAL Routine 11/19/2024 3:06 AM DYNAMOMETER REPAIRER RENAL FUNCTION PANEL Routine 11/19/2024 3:06 AM DYNAMOMETER REPAIRER PTT Stat 11/18/2024 7:43 PM DYNAMOMETER REPAIRER VANCOMYCIN LEVEL RANDOM Timed Study 11/18/19 12:03 PM DYNAMOMETER REPAIRER RENAL FUNCTION PANEL Routine 11/18/2024 12:03 PM DYNAMOMETER REPAIRER PTT Timed Study 11/18/2024 7:48 AM DYNAMOMETER REPAIRER EXTRA TUBE (BLUE) Routine 11/18/2024 12:41 AM DYNAMOMETER REPAIRER EXTRA TUBE Routine 11/18/2024 12:41 AM DYNAMOMETER REPAIRER PTT Timed Study 11/18/2024 12:40 AM DYNAMOMETER REPAIRER UNFRACTIONATED HEPARIN ACTIVITY Routine 11/17/2024 5:21 PM DYNAMOMETER REPAIRER PTT Routine 11/17/2024 5:21 PM DYNAMOMETER REPAIRER EKG 12-LEAD Routine 11/17/2024 12:43 PM DYNAMOMETER REPAIRER CBC WITH DIFFERENTIAL Routine 11/17/2024 10:09 AM DYNAMOMETER REPAIRER RENAL FUNCTION PANEL Routine 11/17/2024 10:09 AM DYNAMOMETER REPAIRER NM MYOCARD PERF IMAG SPECT MULT Routine 11/17/2024 9:21 AM DYNAMOMETER REPAIRER NM PHARMACOLOGICAL STRESS TEST Routine 11/17/2024 8:23 AM DYNAMOMETER REPAIRER ECHOCARDIOGRAM W/ CONTRAST AGENT Routine 11/16/2024 4:48 PM DYNAMOMETER REPAIRER LIPID PANEL Routine 11/16/2024 5:09 AM DYNAMOMETER REPAIRER UNFRACTIONATED HEPARIN ACTIVITY Timed Study 11/16/2024 5:09 AM DYNAMOMETER REPAIRER VANCOMYCIN LEVEL RANDOM Timed Study 11/16/19 5:09 AM DYNAMOMETER REPAIRER RENAL FUNCTION PANEL Routine 11/16/2024 5:09 AM DYNAMOMETER REPAIRER CTA ABD AORTA BI ILIOFEM W AND/OR WO Routine 11/15/2024 6:53 PM DYNAMOMETER REPAIRER CTA CHEST W AND/OR WO CONTRAST Routine 11/15/2024 6:51 PM DYNAMOMETER REPAIRER BLOOD CULTURE Routine 11/15/2024 3:23 PM DYNAMOMETER REPAIRER BLOOD CULTURE Routine 11/15/2024 3:23 PM DYNAMOMETER REPAIRER BLOOD CULTURE Routine 11/15/2024 3:17 PM DYNAMOMETER REPAIRER BLOOD CULTURE Routine 11/15/2024 3:17 PM DYNAMOMETER REPAIRER UNFRACTIONATED HEPARIN ACTIVITY Stat 11/15/2024 8:48 AM DYNAMOMETER REPAIRER HEPATITIS B SURFACE ANTIGEN Routine 11/15/2024 1:48 AM DYNAMOMETER REPAIRER UNFRACTIONATED HEPARIN ACTIVITY Stat 11/15/2024 1:48 AM DYNAMOMETER REPAIRER VANCOMYCIN LEVEL RANDOM Timed Study 11/15/19 25 1:48 AM DYNAMOMETER REPAIRER RENAL FUNCTION PANEL Routine 11/15/2024 1:48 AM DYNAMOMETER REPAIRER CBC WITH DIFFERENTIAL Routine 11/15/2024 1:48 AM DYNAMOMETER REPAIRER MAGNESIUM LEVEL Routine 11/15/2024 1:48 AM DYNAMOMETER REPAIRER UNFRACTIONATED HEPARIN ACTIVITY Timed Study 11/14/2024 5:09 PM DYNAMOMETER REPAIRER US ANKLE PRESSURE INDEX Routine 11/14/19 4:50 PM DYNAMOMETER REPAIRER US VENOUS DOPPLER LEG BILATERAL Routine 11/14/2024 4:48 PM DYNAMOMETER REPAIRER MRI FOOT WO CONTRAST LEFT Routine 11/14/2024 3:11 PM DYNAMOMETER REPAIRER MRI FOOT WO CONTRAST RIGHT Routine 11/14/2024 2:47 PM DYNAMOMETER REPAIRER UNFRACTIONATED HEPARIN ACTIVITY Timed Study 11/14/2024 8:52 AM DYNAMOMETER REPAIRER MAGNESIUM LEVEL Routine 11/14/2024 12:58 AM DYNAMOMETER REPAIRER COMPREHENSIVE METABOLIC PANEL Routine 11/14/2024 12:58 AM DYNAMOMETER REPAIRER CBC WITH DIFFERENTIAL Routine 11/14/2024 12:58 AM DYNAMOMETER REPAIRER HEMOGLOBIN A1C Routine 11/14/2024 12:58 AM DYNAMOMETER REPAIRER UNFRACTIONATED HEPARIN ACTIVITY Stat 11/14/2024 12:46 AM DYNAMOMETER REPAIRER PTT Stat 11/14/2024 12:46 AM DYNAMOMETER REPAIRER UNFRACTIONATED HEPARIN ACTIVITY Routine 11/14/2024 12:46 AM DYNAMOMETER REPAIRER US DOPPLER VENOUS ARM BILATERAL Routine 11/14/2024 12:20 AM DYNAMOMETER REPAIRER PT EVAL AND TREAT Routine 11/13/2024 9:5 0 PM DYNAMOMETER REPAIRER OT EVAL AND TREAT Routine 11/13/2024 9:5 0 PM DYNAMOMETER REPAIRER MRI PRIOR STUDY Routine 11/10/2024 6:35 AM DYNAMOMETER REPAIRER MRI PRIOR STUDY Routine 11/10/2024 6:30 AM DYNAMOMETER REPAIRER X-RAY PRIOR STUDY Routine 11/09/2024 8:0 0 PM DYNAMOMETER REPAIRER X-RAY PRIOR STUDY Routine 11/09/2024 7:5 5 PM DYNAMOMETER REPAIRER X-RAY PRIOR STUDY Routine 11/09/2024 4:4 5 AM DYNAMOMETER REPAIRER X-RAY PRIOR STUDY Routine 11/09/2024 4:4 0 AM DYNAMOMETER REPAIRER X-RAY PRIOR STUDY Routine 11/09/2024 3:4 5 AM DYNAMOMETER REPAIRER X-RAY PRIOR STUDY Routine 11/09/2024 3:4 [address] PRIOR STUDY Routine 11/09/2024 3:30 AM DYNAMOMETER REPAIRER PET BONE IMG W CT SKL BSE MID THG Routine 11/05/2024 2:45 PM DYNAMOMETER REPAIRER from Last 3 Months Results * (ABNORMAL) ANAEROBIC/AEROBIC CULTURE W GRAM STAIN (01/22/2025 10:27 AM CDT) Only the most recent of3 resultswithin the time period is included. ANAEROBIC CULTURE SEE NOTE Qu Funding GatesSandeep Novak Comment: CULTURE, ANAEROBIC BACTERIA W/GRAM STAIN Micro Number: [id number] Test Status: Final Specimen Source: Foot, right Specimen Quality: Adequate Gram Stain: No white blood cells seen Many Mixed bacterial padmini Result: Heavy growth of Prevotella species Prevotella sp. INT DAVID 1 THERAPY COMMENTS Note 1: This isolate is beta-lactamase Positive. A Positive result predicts resistance to Penicillin, Ampicillin and Amoxicillin. AEROBIC CULTURE SEE NOTE(A) RoomSandeep Novak Comment: CULTURE, AEROBIC BACTERIA Micro Number: [id number] Test Status: Final Specimen Source: Right foot Specimen Quality: Adequate Result: Heavy growth of Staphylococcus aureus Heavy growth of Enterococcus faecalis S.aureus E.faecalis INT DAVID INT DAVID AMPICILLIN * S <=2 CIPROFLOXACIN S 1 * CLINDAMYCIN S <=0.25 * DOXYCYCLINE S * ERYTHROMYCIN S <=0.25 * GENTAMICIN S <=0.5 * LEVOFLOXACIN S 0.5 * LINEZOLID S 2 * MOXIFLOXACIN S <=0.25 * OXACILLIN S <=0.25 1 * TETRACYCLINE S <=1 * TRIMETHOPRIM/SULFA S <=10 * VANCOMYCIN S 1 S 1 S = Susceptible I = Intermediate R = Resistant NS = Not susceptible SDD = Susceptible Dose Dependent * = Not Tested NR = Not Reported NN = See Therapy Comments THERAPY COMMENTS Note 1: Oxacillin susceptible staphylococci are susceptible to other penicillinase-stable penicillins (e.g., methicillin, nafcillin), beta- lactam/beta-lactamase inhibitor combinations, and cephems with staphylococcal indications, including cefazolin. Susceptibility testing performed using [employer] Disk Diffusion and therefore DAVID values are not provided. Test Performed at: [place] [address] [address] [place]IE David [phone] [facility] Lesion/Drainage Fluid (Foot, right) 01/22/2025 10:27 AM CDT 01/23/2025 2:50 AM CDT Jesus Luciano DPM MICROBIOLOGY - GENERAL MIGDALIA TAYLOR Final Result [facility] [phone] [place] [address] [address] [place] [phone] * PATHOLOGY REPORT (01/07/2025 3:59 PM CDT) Aydin Carrasco MD PATHOLOGY/CYTOLOGY ORDERABLES F inal Result * US ANKLE PRESSURE INDEX (01/02/2025 3:13 PM CDT) Only the most recent of2 resultswithin the time period is included. Anatomical Region Laterality Modality Lower Extremity Ultrasound 01/02/2025 2:30 PM CDT Narrative 01/02/2025 4:08 PM CDT [facility] Heart and Vascular Testing NADER Arterial Physiologic Evaluation Patient: Jc De Leon Study ID: [id number] Gender: M : 1960 Age: 64 Race: HUNTER Height 182.9cm Study Date: 01/02/2025 Weight: 89.8kg Access. #: [id number] *Referring Physician:Patricia Montanez, Patricia Sawyer *Ordering Physician:Patricia Montanez *Bottom Saw Operator:Dory Underwood RVS Indications: PVD. History: Risk factors: Recent surgery: [...] Hg Prepared and Electronically Authenticated Mariaa Mathew [id number]:08:12 Procedure Note Mariaa Mathew MD - 01/02/2025 [facility] NADER Arterial Physiologic Evaluation Patient: Jc De Leon Study ID: 1 Gender: M : 1960 Age: 64 Race: HUNTER Height 182.9cm Study Date: 01/02/2025 Weight: 89.8kg Access. #: [id number] *Referring Physician:Patricia Montanez AmyElizabeth *Ordering Physician:Patricia Montanez *Bottom Saw Operator:Dory Underwood Indications: PVD. History: Risk factors: Recent [...] Hg Prepared and Electronically Authenticated Mariaa Mathew [id number]:08:12 us Patricia Quezada MANAGER FLIGHT US ORDERABLES Final Res ult * BASIC METABOLIC PANEL (12/11/2024 4:32 PM DYNAMOMETER REPAIRER) Only the most recent of3 resultswithin the time period is included. Blood Aydin Carrasco MD CHEMISTRY ORDERABLES Final Resu lt * CBC WITH AUTODIFFERENTIAL (12/11/2024 11:49 AM DYNAMOMETER REPAIRER) Blood Aydin Carrasco MD HEMATOLOGY ORDERABLES Final Res ult * VANCOMYCIN LEVEL RANDOM (11/26/2024 4:39 AM DYNAMOMETER REPAIRER) Only the most recent of7 resultswithin the time period is included. VANCOMYCIN, RANDOM 17.8 No Ref Range Estab ug/mL 11/26/2024 6:35 AM DYNAMOMETER REPAIRER [facility] Blood Venipuncture / Unknown 11/26/2024 4:39 AM DYNAMOMETER REPAIRER 11/26/2024 6:05 AM DYNAMOMETER REPAIRER Diego Mcknight MD CHEMISTRY ORDERABLES Final Result [facility] [id number] [place] [address] * (ABNORMAL) RENAL FUNCTION PANEL (11/26/2024 4:39 AM DYNAMOMETER REPAIRER) Only the most recent of12 resultswithin the time period is included. SODIUM 131(L) 136 - 145 mmol/L 11/26/2024 6:35 AM [facility] POTASSIUM 4.9 3.4 - 5.1 mmol/L 11/26/2024 6:35 AM [facility] CHLORIDE 96(L) 98 - 107 mmol/L 11/26/2024 6:35 AM [facility] CO2 21(L) 22 - 29 mmol/L 11/26/2024 6:35 AM [facility] CALCIUM 10.3 8.6 - 10.4 mg/dL 11/26/2024 6:35 AM [facility] BUN 53(H) 6 - 20 mg/dL 11/26/2024 6:35 AM [facility] CREATININE 7.72(H) 0.67 - 1.17 mg/dL 11/26/2024 6:35 AM [facility] GLUCOSE 100(H) 74 - 99 mg/dL 11/26/2024 6:35 AM [facility] ALBUMIN 3.3(L) 3.5 - 5.2 g/dL 11/26/2024 6:35 AM [facility] PHOSPHORUS 4.5 2.5 - 4.5 mg/dL 11/26/2024 6:35 AM [facility] GFR 7(L) >=60 mL/min/1.7 3 sq meter 11/26/2024 6:35 AM [facility] Comment:eGFR calculated with 2020 CKD-EPI equation. Vegetarian diet, extremely high or low muscle mass, and may affect results. Cystatin C with Glomerular Filtration Rate is a suitable alternative for these patients. ANION GAP 14 8 - 16 mmol/L 11/26/2024 6:35 AM [facility] Blood Venipuncture / Unknown 11/26/2024 4:39 AM DYNAMOMETER REPAIRER 11/26/2024 6:05 AM DYNAMOMETER REPAIRER us Jesus Luciano DPM CHEMISTRY ORDERABLES Final Result Performing Organization Address City/[facility]/ZIP Co de Phone Number [facility] CLIA# [id number] [place] [address] * (ABNORMAL) PTT (11/25/2024 7:42 PM DYNAMOMETER REPAIRER) Only the most recent of22 resultswithin the time period is included. PTT 70.1(H) 23.1 - 37.1 seconds 11/25/2024 8:24 PM [facility] Blood Venipuncture / Unknown 11/25/2024 7:42 PM DYNAMOMETER REPAIRER 11/25/2024 7:59 PM DYNAMOMETER REPAIRER Diego Mcknight MD HEMATOLOGY ORDERABLES Selin l Result [facility] CLIA# [id number] [place] [address] * TELEMETRY REPORT (11/25/2024 3:26 PM DYNAMOMETER REPAIRER) Only the most recent of16 resultswithin the time period is included. us Provider Scanning ECG ORDERABLES Final Result * (ABNORMAL) CBC WITHOUT DIFFERENTIAL (11/24/2024 2:56 AM DYNAMOMETER REPAIRER) WBC 8.9 4.0 - 9.8 K/uL 11/24/2024 5:01 AM [facility] RBC 2.20(L) 4.50 - 5.40 M/uL 11/24/2024 5:01 AM [facility] HEMOGLOBIN 7.3(L) 13.6 - 16.5 g/dL 11/24/2024 5:01 AM [facility] HEMATOCRIT 22.7(L) 40.0 - 48.0 % 11/24/2024 5:01 AM [facility] MCV 103.2(H) 82.0 - 99.0 fL 11/24/2024 5:01 AM [facility] MCH 33.2(H) 27.2 - 32.6 pg 11/24/2024 5:01 AM [facility] MCHC 32.2 31.5 - 35.5 g/dL 11/24/2024 5:01 AM [facility] PLATELETS 332 140 - 350 K/uL 11/24/2024 5:01 AM [facility] MPV 10.2 9.3 - 12.4 fL 11/24/2024 5:01 AM [facility] RDW 17.3(H) 11.5 - 14.5 % 11/24/2024 5:01 AM [facility] RDW-STDEV 65.5(H) 37.1 - 48.7 fL 11/24/2024 5:01 AM [facility] Blood Venipuncture / Unknown 11/24/2024 2:56 AM DYNAMOMETER REPAIRER 11/24/2024 5:01 AM DYNAMOMETER REPAIRER Diego Mcknight MD HEMATOLOGY ORDERABLES Selin tran Result [id number] [place] [address] * XR FOOT 3+ VW RIGHT (11/23/2024 1:04 PM DYNAMOMETER REPAIRER) Anatomical Region Laterality Modality Ankle / Foot Computed Radiogr aphy 11/23/2024 1:04 PM DYNAMOMETER REPAIRER Impressions 11/23/2024 1:14 PM DYNAMOMETER REPAIRER IMPRESSION: 1. Interval first digit amputation. DICTATION LOCATION: [address] Narrative 11/23/2024 1:14 PM DYNAMOMETER REPAIRER EXAMINATION: XR FOOT 3+ VW RIGHT DATE: [...] first digit amputation. DICTATION LOCATION: Location [address] [place] [address] Jesus Luciano DPM DIAGNOSTIC IMAGING ORDERABL ES Final Result * TRANSFUSE RED BLOOD CELLS (11/23/2024 12:36 PM DYNAMOMETER REPAIRER) Only the most recent of2 resultswithin the time period is included. Reinier Dale MD BLOOD TRANSFUSI ON ORDERABLES Final Result * PATHOLOGY (11/23/2024 11:55 AM DYNAMOMETER REPAIRER) CASE REPORT Surgical Pathology Report Case: [id number] Authorizing Provider: Jesus Luciano DPM Collected: 11/23/2024 11:55 AM Ordering Location: [facility] Received: 11/25/2024 09:35 AM Operating Room Pathologist: Shirley Tran MD Specimens: A) - Bone, proximal first metatarsal, Toe Great, right B) - Toe Great, right, right great toe 11/27/2024 3:40 PM [facility] FINAL DIAGNOSIS Bone, proximal first metatarsal, excision - Bone with focal acute inflammation, consistent with focal acute osteomyelitis - Bone with degenerative/regenera tive change Foot, right great toe, amputation - Skin and soft tissue with ulceration, abscess, and devitalization/necros is - Bone with devitalization/necros is 11/27/2024 3:40 PM [facility] at 1539 DYNAMOMETER REPAIRER GROSS DESCRIPTION A. Received in formalin labeled [...] lesion submitted after decalcification 11/27/2024 3:40 PM [facility] MICROSCOPIC DESCRIPTION Microscopic review supports the diagnosis. 11/27/2024 3:40 PM [facility] OPERATIVE PROCEDURE 1: TOE(S) AMPUTATION 11/27/2024 3:40 PM DYNAMOMETER REPAIRER [facility] CLINICAL INFORMATION UNKNOWN 11/27/2024 3:40 PM DYNAMOMETER REPAIRER [facility] COMMENT Immunohistochemical stains were performed, if any, and interpreted at [facility] ([facility]) Laboratory with appropriately staining controls. This test was developed and its performance characteristics determined by [facility] Lab. It has not been cleared [...] these and other antigens. 11/27/2024 3:40 PM DYNAMOMETER REPAIRER [facility] Tissue ENTIRE BONE ORGAN / Unknown Collection / Unknown 11/23/2024 11:55 AM DYNAMOMETER REPAIRER 11/25/2024 9:35 AM DYNAMOMETER REPAIRER Tissue specimen (specimen) (Toe Great, right) Collection / Unknown 11/23/2024 11:55 AM DYNAMOMETER REPAIRER 11/25/2024 9:35 AM DYNAMOMETER REPAIRER Jesus Luciano DPM PATHOLOGY/CYTOLOGY ORDERABL ES Final Result [facility] CLIA# [id number] [place] [address] * PREPARE RED BLOOD CELLS (11/23/2024 6:58 AM DYNAMOMETER REPAIRER) Only the most recent of3 resultswithin the time period is included. COMPONENT TYPE [id number] [facility] COMPONENT IDENTIFICATION [id number] [facility] UNIT ABO O [facility] UNIT RH POS [facility] CROSSMATCH Compatible [facility] COMPONENT STATUS Transfused ME [facility] COMPONENT EXPIRATION DATE/TIME [id number] [facility] COMPONENT CODING SYSTEM 5100 [facility] VOLUME, BLOOD PRODUCT 350 [facility] Other, specify 11/23/2024 6: 58 AM DYNAMOMETER REPAIRER Reinier Dale MD LAB TRANSFUSION ORDERABLES Edited Result - Final [facility] CLIA# [id number] [place] [address] * (ABNORMAL) CBC WITH DIFFERENTIAL (11/23/2024 3:44 AM DYNAMOMETER REPAIRER) Only the most recent of9 resultswithin the time period is included. WBC 9.6 4.0 - 9.8 K/uL 11/23/2024 4:11 AM [facility] RBC 2.12(L) 4.50 - 5.40 M/uL 11/23/2024 4:11 AM [facility] HEMOGLOBIN 7.0(L) 13.6 - 16.5 g/dL 11/23/2024 4:11 AM [facility] HEMATOCRIT 21.9(L) 40.0 - 48.0 % 11/23/2024 4:11 AM [facility] MCV 103.3(H) 82.0 - 99.0 fL 11/23/2024 4:11 AM [facility] MCH 33.0(H) 27.2 - 32.6 pg 11/23/2024 4:11 AM [facility] MCHC 32.0 31.5 - 35.5 g/dL 11/23/2024 4:11 AM [facility] RDW 16.6(H) 11.5 - 14.5 % 11/23/2024 4:11 AM [facility] RDW-STDEV 62.7(H) 37.1 - 48.7 fL 11/23/2024 4:11 AM [facility] PLATELETS 346 140 - 350 K/uL 11/23/2024 4:11 AM [facility] MPV 9.8 9.3 - 12.4 fL 11/23/2024 4:11 AM [facility] NEUTROPHILS 74 % 11/23/2024 4:11 AM [facility] LYMPHOCYTES 13 % 11/23/2024 4:11 AM [facility] MONOCYTES 10 % 11/23/2024 4:11 AM [facility] EOSINOPHILS 2 % 11/23/2024 4:11 AM [facility] BASOPHILS 1 % 11/23/2024 4:11 AM [facility] IMMATURE GRANULOCYTES 1 % 11/23/2024 4:11 AM [facility] Comment:IG (Immature Granulo cyte) count includes Metamyelocytes, Myelocytes, and Promyelocytes NEUTROPHIL ABSOLUTE 7.09(H) 1.90 - 7.00 K/uL 11/23/2024 4:11 AM [facility] LYMPHOCYTE ABSOLUTE 1.19 0.70 - 4.50 K/uL 11/23/2024 4:11 AM [facility] MONOCYTE ABSOLUTE 0.94 0.10 - 1.30 K/uL 11/23/2024 4:11 AM [facility] EOSINOPHIL ABSOLUTE 0.20 0.00 - 0.70 K/uL 11/23/2024 4:11 AM [facility] BASOPHILS ABSOLUTE 0.07 0.00 - 0.20 K/uL 11/23/2024 4:11 AM [facility] IMMATURE GRANULOCYTES ABSOLUTE 0.06(H) 0.00 - 0.03 K/uL 11/23/2024 4:11 AM [facility] Blood Venipuncture / Unknown 11/23/2024 3:44 AM DYNAMOMETER REPAIRER 11/23/2024 4:11 AM DYNAMOMETER REPAIRER us Noy Jackson DO HEMATOLOGY ORDERABLES Selin l Result [facility] CLIA# [id number] [place] [address] * TYPE AND SCREEN (11/23/2024 3:44 AM DYNAMOMETER REPAIRER) Only the most recent of2 resultswithin the time period is included. ABO GROUP O 11/23/2024 4:42 AM DYNAMOMETER REPAIRER [facility] RH (D) TYPE Positive 11/23/2024 4:42 AM DYNAMOMETER REPAIRER [facility] ANTIBODY SCREEN Negative 11/23/2024 4:42 AM DYNAMOMETER REPAIRER [facility] Blood Venipuncture / Unknown 11/23/2024 3:44 AM DYNAMOMETER REPAIRER 11/23/2024 3:50 AM DYNAMOMETER REPAIRER oNy Jackson DO BLOOD BANK ORDERABLES Edit ed Result - Final [facility] [id number] [place] [address] * POTASSIUM LEVEL (11/22/2024 4:05 PM DYNAMOMETER REPAIRER) POTASSIUM 4.6 3.4 - 5.1 mmol/L 11/22/2024 5:15 PM DYNAMOMETER REPAIRER [facility] Blood Venipuncture / Unknown 11/22/2024 4:05 PM DYNAMOMETER REPAIRER 11/22/2024 4:26 PM DYNAMOMETER REPAIRER Kianna Lu MD CHEMISTRY ORDERABLES Final Resul t [facility] [id number] [address] [place] [address] * HEMODIALYSIS (11/22/2024 12:01 PM DYNAMOMETER REPAIRER) Narrative Karissa Au RN - 11/22/2024 12:01 PM DYNAMOMETER REPAIRER Karissa Au RN 11/22/2024 12:03 PM Hemodialysis [...] Status: Right forearm fistula with + bruit/thrill. [place] removed. Direct pressure held until hemostasis achieved. [...] lb 1.6 oz), SpO2 98%. Karissa Au, RN Rl Dueñas MD DIALYSIS ORDERABLES Final Result * MAGNESIUM LEVEL (11/21/2024 6:01 AM DYNAMOMETER REPAIRER) Only the most recent of3 resultswithin the time period is included. [facility] MAGNESIUM 2.1 1.6 - 2.6 mg/dL 11/21/2024 6:44 AM DYNAMOMETER REPAIRER [facility] [employer] Blood Venipuncture / Unknown 11/21/2024 6:01 AM DYNAMOMETER REPAIRER 11/21/2024 6:07 AM DYNAMOMETER REPAIRER Roni Barahona PA-C CHEMISTRY ORDERABLES Final Result [facility] [employer] [facility] CLIA# [id number] [place] [address] * POC GLUCOSE (11/21/2024 5:39 AM DYNAMOMETER REPAIRER) [facility] GLUCOSE POC 90 74 - 99 mg/dL 11/21/2024 5:39 AM DYNAMOMETER REPAIRER [facility] POINT OF CARE SPECIMEN SOURCE, GLUCOSE POC Whole Blood 11/21/2024 5:39 AM DYNAMOMETER REPAIRER [facility] POINT OF CARE Blood, whole 11/21/2024 5:39 AM DYNAMOMETER REPAIRER 11/21/2024 11:05 AM DYNAMOMETER REPAIRER us Diego Mcknight MD POINT OF CARE TESTING Selin tran Result [facility] POINT OF CARE CLIA # [id number] [address] [place] [address] * EKG 12-LEAD (11/21/2024 5:29 AM DYNAMOMETER REPAIRER) Only the most recent of2 resultswithin the time period is included. 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1960 Requested By: CHONG GARCIA Order Number: [id number] Reading MD: Chong Veloz Measurements Intervals [place] Rate: 79 P: 0 VA: 0 QRS: 17 QRSD: 100 T: 122 QT: 412 QTc: 472 Interpretive Statements Atrial fibrillation ST & Marked T wave abnormality, consider anterolateral ischemia Prolonged QT Abnormal ECG Compared to ECG 11/17/2024 12:43:44 Prolonged QT interval now present Electronically Signed On 11-21-2024 7:30:28 DYNAMOMETER REPAIRER by Chong Veloz Procedure Note Chong Veloz MD - 11/21/2024 [place] [address] Test Date: 2024-11-21 Pat Name: JC DE LEON Department: 98 Room: [address] [place] [address] Gender: Male 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1960 Requested By: CHONG GARCIA Order Number: [id number] Tello MD: Chong Veloz Measurements Intervals [place] Rate: 79 P: 0 VA: 0 QRS: 17 QRSD: 100 T: 122 QT: 412 QTc: 472 Interpretive Statements Atrial fibrillation ST & Marked T wave abnormality, consider anterolateral ischemia Prolonged QT Abnormal ECG Compared to ECG 11/17/2024 12:43:44 Prolonged QT interval now present Electronically Signed On 11-21-2024 7:30:28 DYNAMOMETER REPAIRER by Chong Veloz Roni Barahona PA-C ECG ORDERABLES Final Resul t INTERFACE SYSTEM Refer to clinic/hospital department * VERIFICATION BLOOD GROUP (11/20/2024 8:52 PM DYNAMOMETER REPAIRER) ABO GROUP O 11/20/2024 10:00 PM DYNAMOMETER REPAIRER [facility] RH (D) TYPE Positive 11/20/2024 10:00 PM DYNAMOMETER REPAIRER [facility] [employer] Blood Venipuncture / Unknown 11/20/2024 8:52 PM DYNAMOMETER REPAIRER 11/20/2024 9:29 PM DYNAMOMETER REPAIRER Franca Dykes MD BLOOD BANK ORDERAB LES Final Result [facility] [employer] [facility] CLIA# [id number] [place] [address] * (ABNORMAL) HEMOGLOBIN AND HEMATOCRIT (11/20/2024 3:13 PM DYNAMOMETER REPAIRER) HEMOGLOBIN 7.3(L) 13.6 - 16.5 g/dL 11/20/2024 3:31 PM DYNAMOMETER REPAIRER [facility] HEMATOCRIT 22.5(L) 40.0 - 48.0 % 11/20/2024 3:31 PM DYNAMOMETER REPAIRER [facility] Blood Venipuncture / Unknown 11/20/2024 3:13 PM DYNAMOMETER REPAIRER 11/20/2024 3:28 PM DYNAMOMETER REPAIRER Best Aiken MD HEMATOLOGY ORDERABLES Selin l Result Performing Organization Address [facility] Co de Phone Number [facility] CLIA# [id number] [place] [address] * POC ACTIVATED CLOTTING TIME (11/20/2024 1:23 PM DYNAMOMETER REPAIRER) Only the most recent of11 resultswithin the time period is included. ACTIVATED CLOTTING TIME POC 157 sec 11/20/2024 1:23 PM DYNAMOMETER REPAIRER [facility] [employer] Comment: Target Range(s): >400 sec. Cardiovascular Surgery >250 sec. when Cardiac Cath or other intervention is performed. <180 sec. to pull sheath Blood 11/20/2024 1:23 PM DYNAMOMETER REPAIRER 11/20/2024 1:52 PM DYNAMOMETER REPAIRER Diego Mcknight MD POINT OF CARE TESTING Selin l Result Performing Organization Address [facility] Co de Phone Number [facility] CLIA# [id number] [place] [address] * XR OR (11/20/2024 1:12 PM DYNAMOMETER REPAIRER) Narrative [facility] POINT OF CARE - 11/20/2024 1:13 PM DYNAMOMETER REPAIRER Order information only. Exam was auto-finalized. Franca Dykes MD DIAGNOSTIC IMAGING ORDERABLES Final Result Performing Organization Address [facility] Co de Phone Number [facility] POINT OF CARE CLIA # [id number] [place] [address] * POC LACTIC ACID (11/20/2024 12:10 PM DYNAMOMETER REPAIRER) Only the most recent of2 resultswithin the time period is included. LACTIC ACID POC 0.6 <=2.0 mmol/L 11/20/2024 12:10 PM DYNAMOMETER REPAIRER [facility] SPECIMEN SOURCE, GASES POC Arterial 11/20/2024 12:10 PM [facility] Blood 11/20/2024 12:1 0 PM DYNAMOMETER REPAIRER 11/20/2024 12:11 PM DYNAMOMETER REPAIRER Diego Mcknight MD POINT OF CARE TESTING Selin tran Result [facility] CLIA# [id number] [place] [address] * (ABNORMAL) BLOOD GAS,(INCL. H+H, LYTES, GLUC) (11/20/2024 12:10 PM DYNAMOMETER REPAIRER) Only the most recent of2 resultswithin the time period is included. PH BLOOD POC 7.37 7.35 - 7.45 11/20/2024 12:10 PM [facility] PCO2 POC 35 35 - 48 mm Hg 11/20/2024 12:10 PM [facility] PO2 POC 144(H) 83 - 108 mm Hg 11/20/2024 12:10 PM [facility] HCO3 (CALC) POC 20(L) 22 - 26 mmol/L 11/20/2024 12:10 PM [facility] O2 SATURATION POC 100(H) 94 - 98 % 11/20/2024 12:10 PM [facility] BASE EXCESS POC -5(L) -2 - 3 mmol/L 11/20/2024 12:10 PM [facility] HEMOGLOBIN POC 6.4(LL) 13.6 - 16.5 g/dL 11/20/2024 12:10 PM [facility] HEMATOCRIT POC 19(L) 40 - 48 % 11/20/2024 12:10 PM [facility] Comment:Estimated Value GLUCOSE POC 92 74 - 99 mg/dL 11/20/2024 12:10 PM [facility] SODIUM POC 131(L) 135 - 145 mmol/L 11/20/2024 12:10 PM [facility] POTASSIUM POC 5.8(H) 3.5 - 4.9 mmol/L 11/20/2024 12:10 PM [facility] CHLORIDE POC 105 98 - 107 mmol/L 11/20/2024 12:10 PM [facility] CALCIUM IONIZED POC 5.3(H) 4.8 - 5.2 mg/dL 11/20/2024 12:10 PM [facility] PH TEMP CORRECT 7.37 7.35 - 7.45 11/20/19 25 12:10 PM [facility] PCO2 TEMP CORRECT 35 35 - 48 mm Hg 11/20/2024 12:10 PM [facility] PO2 TEMP CORRECT 144(H) 83 - 108 mm Hg 11/20/2024 12:10 PM [facility] SPECIMEN SOURCE, GASES POC Arterial 11/20/2024 12:10 PM [facility] PATIENT'S TEMPERATURE POC 37.0 degrees 11/20/2024 12:10 PM [facility] OXYGEN CONTENT POC 9.0 mL/dL 11/20/2024 12:10 PM [facility] Blood, arterial 11/20/2024 1 2:10 PM DYNAMOMETER REPAIRER 11/20/2024 12:11 PM DYNAMOMETER REPAIRER us Diego Mcknight MD ABG ORDERABLES Final Resu lt [facility] [id number] [place] [address] * (ABNORMAL) OXIMETRY (11/20/2024 12:10 PM DYNAMOMETER REPAIRER) Only the most recent of2 resultswithin the time period is included. OXYHEMOGLOBIN POC 96.4 94.0 - 97.0 % 11/20/2024 12:10 PM [facility] HEMOGLOBIN POC 6.4(LL) 13.6 - 16.5 g/dL 11/20/2024 12:10 PM [facility] OXYGEN CONTENT POC 9.0 mL/dL 11/20/2024 12:10 PM DYNAMOMETER REPAIRER [facility] O2 SATURATION POC 100(H) 94 - 98 % 025 12:10 PM [facility] SPECIMEN SOURCE, GASES POC Arterial 11/20/2024 12:10 PM DYNAMOMETER REPAIRER [facility] SAMPLE SITE, GASES POC N-SY 11/20/2024 12:10 PM [facility] Blood 11/20/2024 12:1 0 PM DYNAMOMETER REPAIRER 11/20/2024 12:11 PM DYNAMOMETER REPAIRER Diego Mcknight MD ABG ORDERABLES Final Resu lt Performing Organization Address City/[facility]/ZIP Co de Phone Number [facility] CLIA# [id number] [place], [place] [id number] * (ABNORMAL) METHEMOGLOBIN QUANTITATIVE (11/20/2024 12:10 PM DYNAMOMETER REPAIRER) Only the most recent of2 resultswithin the time period is included. METHEMOGLOBIN QUANT POC 1.2 <=1.5 % 11/20/2024 12:10 PM [facility] HEMO[facility]IN POC 6.4(LL) 13.6 - 16.5 g/dL 11/20/2024 12:10 PM [facility] Blood 11/20/2024 12:1 0 PM DYNAMOMETER REPAIRER 11/20/2024 12:11 PM DYNAMOMETER REPAIRER Diego Mcknight MD ABG ORDERABLES Final Resu lt [facility] [place]# [id number] [place], [place] [id number] * (ABNORMAL) CARBOXYHEMOGLOBIN (11/20/2024 12:10 PM DYNAMOMETER REPAIRER) Only the most recent of2 resultswithin the time period is included. CARBOXYHEMOGLOBIN POC 2.4 <=7.0 % 02/2025 12:10 PM DYNAMOMETER REPAIRER [facility] HEMOGLOBIN POC 6.4(LL) 13.6 - 16.5 g/dL 11/20/2024 12:10 PM DYNAMOMETER REPAIRER [facility] Blood 11/20/2024 12:1 0 PM DYNAMOMETER REPAIRER 11/20/2024 12:11 PM DYNAMOMETER REPAIRER Diego Mcknight MD ABG ORDERABLES Final Resu lt [facility] CLIA# [id number] [place] [address] * VA ANES INSERT CATH, ART, PERCUT, SHORTTERM (11/20/2024 8:36 AM DYNAMOMETER REPAIRER) Narrative Darius Dela Cruz AA-C - 11/20/2024 8:36 AM DYNAMOMETER REPAIRER Darius Dela Cruz AA-C 11/20/2024 8:38 AM [...] size: 20 G Catheter Length (in.): 1.75 Sentinel Identification: palpation technique Number of attempts: 1 Successful placement: yes Assessment: blood return through port Procedure uneventful Post-procedure: line secured and dressing applied Kianna Lu MD PROCEDURE/MINOR SURGICAL ORDERAB LES Final Result * VA ANES VNPNXR 3 YEARS/> PHYS/QHP SKILL, PERIPHERAL IV ADULT (11/20/2024 8:15 AM DYNAMOMETER REPAIRER) Narrative Darius Dela Cruz AA-C - 11/20/2024 8:15 AM DYNAMOMETER REPAIRER Darius Dela Cruz AA-C 11/20/2024 8:36 AM Peripheral Line Insertion Date/Time: 11/20/2024 8:15 AM Staffing Performed: COURT ADMINISTRATOR/CAA Authorized by: Kianna Lu MD Performed by: [...] PROCEDURE/MINOR SURGICAL ORDERAB LES Final Result * VA ANES INSERT ENDOTRACHEAL AIRWAY (11/20/2024 7:36 AM DYNAMOMETER REPAIRER) Narrative Darius Dela Cruz AA-C - 11/20/2024 7:36 AM DYNAMOMETER REPAIRER Darius Dela Cruz AA-C 11/20/2024 8:17 AM Airway Date/Time: 11/20/2024 7:36 AM Location: OR Plan: elective intubation Patient Identity Confirmed by: Verbally with patient and armband Airway: not difficult Staffing Performed: Student NA/AA Authorized by: Kianna Lu MD Performed by: Darius Dela Cruz AA-C [place] Operator: Kianna Lu MD Indications and Patient Condition: [...] * EXTRA TUBE (BLUE) (11/18/2024 12:41 AM DYNAMOMETER REPAIRER) Blood Venipuncture / Unknown 11/18/2024 12:41 AM DYNAMOMETER REPAIRER 11/18/2024 12:41 AM DYNAMOMETER REPAIRER Brant Leonard MD HEMATOLOGY ORDERABLES Final Re sult Performing Organization Address [facility] Co de Phone Number [facility] - [place]# [id number] [place] [address] * (ABNORMAL) UNFRACTIONATED HEPARIN MONITORING (11/17/2024 5:21 PM DYNAMOMETER REPAIRER) Only the most recent of8 resultswithin the time period is included. ANTI-XA UNFRAC HEP >1.10(HH) See Interpreta tion. IU/mL 11/17/2024 7:01 PM DYNAMOMETER REPAIRER [facility] [employer] [facility] Blood Venipuncture / Unknown 11/17/2024 5:21 PM DYNAMOMETER REPAIRER 11/17/2024 6:06 PM DYNAMOMETER REPAIRER Narrative [facility] - 11/17/2024 7:01 PM DYNAMOMETER REPAIRER Unfractionated Heparin Therapeutic Range: 0.30-0.70 IU/ml Refer to pharmacy adult heparin protocol for further recommendation. The reference range for this test is specific to the anticoagulant and is not appropriate for monitoring patients on a DOAC protocol. Miracle Horne NP HEMATOLOGY ORDERABLES Final Res ult Performing Organization Address [facility] Co de Phone Number [facility] [place]# [id number] [place] [address] * NM MYOCARD PERF IMAG SPECT MULT (11/17/2024 9:21 AM DYNAMOMETER REPAIRER) 11/17/2024 9:23 AM DYNAMOMETER REPAIRER Narrative INTERFACE SYSTEM - 11/17/2024 10:58 AM DYNAMOMETER REPAIRER HISTORY: Preoperative risk assessment RESTING EKG: Normal [...] AL ORDERABLES Final Result Performing Organization Address City/[facility] de Phone Number INTERFACE SYSTEM Refer to clinic/hospital department * NM PHARMACOLOGICAL STRESS TEST (11/17/2024 8:23 AM DYNAMOMETER REPAIRER) [facility] POINT OF CARE - 11/17/2024 8:24 AM DYNAMOMETER REPAIRER Order information only. Exam was auto-finalized. Michi Mckeon MD NM ORDERABLES Final Result Performing Organization Address [facility] Co de Phone Number [facility] POINT OF CARE CLIA # [id number] [place] [address] * ECHOCARDIOGRAM W/ CONTRAST AGENT (11/16/2024 4:48 PM DYNAMOMETER REPAIRER) [facility] EJECTION FRACTION 60 INTERFACE SYSTEM 11/16/2024 4:19 PM DYNAMOMETER REPAIRER Narrative INTERFACE SYSTEM - 11/16/2024 10:08 PM DYNAMOMETER REPAIRER Transthoracic Echocardiogram Patient: Jc De Leon Study ID: [id number] Gender: M : 1960 Age: 64 Race: HUNTER Height 182.9cm Study Date: 11/16/2024 Weight: 92.1kg Access. #: [id number] BP: 133 / 75 *Referring Physician:Miracle Crane *Ordering Physician:Miracle Crane *Bottom Saw Operator:José Antonio Cordoba RDCS,[facility] statistics professor: Nurse: Indications: Dyspnea. Syncope / Near syncope. [...] values inside specified reference range. Procedure data: [facility] Comparison was made to the study of [...] Bedside. Prepared and Electronically Authenticated Michi Mckeon [id number] Procedure Note Michi Mckeon MD - 11/16/2024 Transthoracic Echocardiogram Patient: Jc De Leon Study ID: [id number] Gender: M : 1960 Age: 64 Race: [facility] Height 182.9cm Study Date: 11/16/2024 Weight: 92.1kg Access. #: [id number] BP: 133 / 75 *Referring Physician:* Miracle Horne *Ordering Physician:* Miracle Horne *Bottom Saw Operator:* Nishant Cordoba RDCS,[facility] statistics professor: Nurse: Indications: Dyspnea. Syncope / Near syncope. [...] values inside specified reference range. Procedure data: [facility] Comparison was made to the study of [...] Bedside. Prepared and Electronically Authenticated Michi Mckeon [id number] us Miracle Horne NP US ORDERABLES Final Result INTERFACE SYSTEM Refer to clinic/hospital department * (ABNORMAL) LIPID PANEL (11/16/2024 5:09 AM DYNAMOMETER REPAIRER) [facility] Signature CHOLESTEROL 75 <200 mg/dL 11/16/2024 3:58 PM [facility] [employer] TRIGLYCERIDE 98 <150 mg/dL 11/16/2024 3:58 PM [facility] HDL 33(L) 40 - 59 mg/dL 11/16/2024 3:58 PM [facility] LDL CALCULATED 22 <100 mg/dL 11/16/2024 3:58 PM [facility] NON-HDL CHOLESTEROL 42 <130 mg/dL 11/16/2024 3:58 PM [facility] Blood Venipuncture / Unknown 11/16/2024 5:09 AM DYNAMOMETER REPAIRER 11/16/2024 6:29 AM DYNAMOMETER REPAIRER [facility] [employer] [facility] - 11/16/2024 3:58 PM DYNAMOMETER REPAIRER TOTAL CHOLESTEROL mg/dL Desirable <200 Borderline high [...] Leonard MD CHEMISTRY ORDERABLES Final Res ult [id number] [address] [place] [address] * CTA ABD AORTA BI ILIOFEM W AND/OR WO (11/15/2024 6:53 PM DYNAMOMETER REPAIRER) Anatomical Region Laterality Modality Abdomen Computed Tomogra phy 11/15/2024 6:23 PM DYNAMOMETER REPAIRER Impressions 11/15/2024 8:13 PM DYNAMOMETER REPAIRER IMPRESSION: 1. Extensive multifocal atherosclerotic disease as [...] right kidney. DICTATION LOCATION: Location 7 - [facility] Narrative 11/15/2024 8:13 PM DYNAMOMETER REPAIRER EXAMINATION: CTA ABD AORTA BI ILIOFEM W [...] disease. 3. Absent right kidney. DICTATION LOCATION: [address] Shanika Benitezakhil [facility] CT ORDERABLES Selin l Result * CTA CHEST W AND/OR WO CONTRAST (11/15/2024 6:51 PM DYNAMOMETER REPAIRER) Anatomical Region Laterality Modality Chest Computed Tomogra phy 11/15/2024 6:29 PM DYNAMOMETER REPAIRER Impressions 11/15/2024 7:40 PM DYNAMOMETER REPAIRER IMPRESSION: 1. No evidence of pulmonary embolism. 2. Similar appearance of bilateral pulmonary nodules, most consistent with metastatic disease. Redemonstration of enlarged aortopulmonary lymph node. Increased subcarinal lymph node. 3. Small bilateral pleural effusions. 4. Unchanged lucent lesion at the T12 inferior endplate, most suggestive of metastatic focus. DICTATION LOCATION: [address] Narrative 11/15/2024 7:40 PM DYNAMOMETER REPAIRER EXAMINATION: CTA CHEST W AND/OR WO CONTRAST [...] of metastatic focus. DICTATION LOCATION: Location [address] [place] [address] ORDERABLES Final Result * BLOOD CULTURE (11/15/2024 3:23 PM DYNAMOMETER REPAIRER) Only the most recent of2 resultswithin the time period is included. [facility] BLOOD CULTURE No growth 11/20/2024 9:03 PM DYNAMOMETER REPAIRER [facility] Blood (Peripheral) Venipuncture / Unknown 11/15/2024 3:23 PM DYNAMOMETER REPAIRER 11/15/2024 3:51 PM DYNAMOMETER REPAIRER Miracle Horne NP MICROBIOLOGY - GENERAL ORDERABL ES Final Result [facility]# [id number] [address] [place] [address] * HEPATITIS B SURFACE ANTIGEN (11/15/2024 1:48 AM DYNAMOMETER REPAIRER) [facility] HEPATITIS B SURFACE AG NON-REACT THOMAS Non-react thomas 11/15/2024 6:48 PM DYNAMOMETER REPAIRER [facility] LABORATORY [facility] Comment:A non-reactive test result does not exclude the possibility of exposure to or infection with hepatitis B. Blood Venipuncture / Unknown 11/15/2024 1:48 AM DYNAMOMETER REPAIRER 11/15/2024 1:57 AM DYNAMOMETER REPAIRER us Romel Bangura MD CHEMISTRY ORDERABLES Final Resul t [facility] [employer] [facility] CLIA# [id number] [place] [address] * US VENOUS DOPPLER LEG BILATERAL (11/14/2024 4:48 PM DYNAMOMETER REPAIRER) Anatomical Region Laterality Modality Lower Extremity Ultrasound 11/14/2024 4:49 PM DYNAMOMETER REPAIRER Impressions 11/14/2024 5:07 PM DYNAMOMETER REPAIRER IMPRESSION: Normal. DICTATION LOCATION: [address] Narrative 11/14/2024 5:07 PM DYNAMOMETER REPAIRER EXAMINATION: US VENOUS DOPPLER LEG BILATERAL DATE: [...] of DVT. IMPRESSION: Normal. DICTATION LOCATION: Location [address] [place] [address] us Joseph Yee NP US ORDERABLES Final Result * MRI FOOT WO CONTRAST LEFT (11/14/2024 3:11 PM DYNAMOMETER REPAIRER) Anatomical Region Laterality Modality Ankle / Foot Magnetic Resonan ce 11/14/2024 3:11 PM DYNAMOMETER REPAIRER Impressions 11/14/2024 3:37 PM DYNAMOMETER REPAIRER IMPRESSION: 1. Wound at the distal 1st digit, with underlying bony signal alteration at the 1st distal phalangeal tuft, suggesting sequela of osteomyelitis, potentially with more chronic appearance, with partial acute component questioned. 2. Wound at the 3rd digit with underlying bony signal alteration at the distal shaft and tuft of the 3rd distal phalanx, most consistent with localized osteomyelitis. DICTATION LOCATION: Location [address] [place] [address] 11/14/2024 3:37 PM DYNAMOMETER REPAIRER EXAMINATION: MRI FOOT WO CONTRAST LEFT DATE: [...] with localized osteomyelitis. DICTATION LOCATION: Location [address] [place] [address] Joseph Yee NP MR ORDERABLES Final Result * MRI FOOT WO CONTRAST RIGHT (11/14/2024 2:47 PM DYNAMOMETER REPAIRER) Anatomical Region Laterality Modality Ankle / Foot Magnetic Resonan ce 11/14/2024 2:48 PM DYNAMOMETER REPAIRER Impressions 11/14/2024 3:14 PM DYNAMOMETER REPAIRER IMPRESSION: First distal phalanx fractures are again noted. There is diffuse first distal phalangeal marrow edema and possibly soft tissue gas in the great toe. Osteomyelitis cannot be excluded in the setting of fracture but is highly suspected based on review of the 11/09/2024 outside radiographs. DICTATION LOCATION: Location [address] [place] [address] Narrative 11/14/2024 3:14 PM DYNAMOMETER REPAIRER EXAMINATION: MRI FOOT WO CONTRAST RIGHT DATE: [...] 11/09/2024 outside radiographs. DICTATION LOCATION: Location [address] [place] [address] us Joseph Yee NP MR ORDERABLES Final Result * HEMOGLOBIN A1C (11/14/2024 12:58 AM DYNAMOMETER REPAIRER) HEMOGLOBIN A1C 5.4 <=5.6 % 11/14/2024 2:30 AM DYNAMOMETER REPAIRER [facility] [employer] [facility] EST. AVG GLUCOSE, A1C 108 mg/dL 11/14/2024 2:30 AM DYNAMOMETER REPAIRER [facility] [employer] [facility] Blood Venipuncture / Unknown 11/14/2024 12:58 AM DYNAMOMETER REPAIRER 11/14/2024 2:12 AM DYNAMOMETER REPAIRER Narrative [facility] [employer] [facility] - 11/14/2024 2:30 AM DYNAMOMETER REPAIRER HGB A1C INTERPRETATION NORMAL: <5.7% PRE-DIABETES: 5.7 - 6.4% DIABETES: 6.5% OR GREATER us Joseph Yee NP CHEMISTRY ORDERABLES Final Res ult [facility] CLIA# [id number] [address] [place] [address] * (ABNORMAL) COMPREHENSIVE METABOLIC PANEL (11/14/2024 12:58 AM DYNAMOMETER REPAIRER) SODIUM 129(L) 136 - 145 mmol/L 11/14/2024 2:44 AM [facility] POTASSIUM 4.2 3.4 - 5.1 mmol/L 11/14/2024 2:44 AM [facility] CHLORIDE 91(L) 98 - 107 mmol/L 11/14/2024 2:44 AM [facility] CO2 25 22 - 29 mmol/L 11/14/2024 2:44 AM [facility] CALCIUM 9.3 8.6 - 10.4 mg/dL 11/14/2024 2:44 AM [facility] BUN 44(H) 6 - 20 mg/dL 11/14/2024 2:44 AM [facility] CREATININE 7.14(H) 0.67 - 1.17 mg/dL 11/14/2024 2:44 AM [facility] GLUCOSE 100(H) 74 - 99 mg/dL 11/14/2024 2:44 AM [facility] TOTAL PROTEIN 6.1(L) 6.3 - 8.7 g/dL 11/14/2024 2:44 AM [facility] ALBUMIN 3.1(L) 3.5 - 5.2 g/dL 11/14/2024 2:44 AM [facility] BILIRUBIN TOTAL <0.2(L) 0.2 - 1.1 mg/dL 11/14/2024 2:44 AM [facility] ALKALINE PHOSPHATASE 67 40 - 150 U/L 11/14/2024 2:44 AM [facility] AST 20 0 - 41 U/L 11/14/2024 2:44 AM [facility] ALT 17 0 - 41 U/L 11/14/2024 2:44 AM DYNAMOMETER REPAIRER [facility] GFR 8(L) >=60 mL/min/1.7 3 sq meter 11/14/2024 2:44 AM DYNAMOMETER REPAIRER [facility] Comment:eGFR calculated with 2020 CKD-EPI equation. Vegetarian diet, extremely high or low muscle mass, and may affect results. Cystatin C with Glomerular Filtration Rate is a suitable alternative for these patients. ANION GAP 13 8 - 16 mmol/L 11/14/2024 2:44 AM DYNAMOMETER REPAIRER [facility] Blood Venipuncture / Unknown 11/14/2024 12:58 AM DYNAMOMETER REPAIRER 11/14/2024 2:12 AM DYNAMOMETER REPAIRER us Joseph Yee NP CHEMISTRY ORDERABLES Final Res ult [facility] [place]# [id number] [address] [place] [address] * US DOPPLER VENOUS ARM BILATERAL (11/14/2024 12:20 AM DYNAMOMETER REPAIRER) Anatomical Region Laterality Modality Upper Extremity Ultrasound 11/14/2024 12:2 1 AM DYNAMOMETER REPAIRER Impressions 11/14/2024 7:07 AM DYNAMOMETER REPAIRER IMPRESSION: 1. No evidence of deep vein thrombosis in either upper extremity. DICTATION LOCATION: Location [address] [place] [address] Narrative 11/14/2024 7:07 AM DYNAMOMETER REPAIRER EXAMINATION: US DOPPLER VENOUS ARM BILATERAL DATE: [...] in either upper extremity. DICTATION LOCATION: Location - [facility] Joseph Yee NP US ORDERABLES Final Result * MRI PRIOR STUDY (11/10/2024 6:35 AM DYNAMOMETER REPAIRER) Only the most recent of2 resultswithin the time period is included. [facility] POINT OF CARE - 11/14/2024 5:38 AM DYNAMOMETER REPAIRER This exam was auto finalized to allow images to be scanned to PACS. us External Provider [facility] MR ORDERABLES Final Res ult Performing Organization Address [facility]/ZIP Co de Phone Number [facility] CLIA # [id number] [place] [address] * XR PRIOR STUDY (11/09/2024 8:00 PM DYNAMOMETER REPAIRER) Only the most recent of6 resultswithin the time period is included. [facility] POINT OF CARE - 11/14/2024 5:41 AM DYNAMOMETER REPAIRER This exam was auto finalized to allow images to be scanned to PACS. External Provider [facility] DIAGNOSTIC IMAGING ORDERA BLES Final Result Performing Organization Address City/[facility]/ZIP Co de Phone Number [facility] POINT OF [facility] CLIA # [id number] [place] [address] * CT PRIOR STUDY (11/09/2024 3:30 AM DYNAMOMETER REPAIRER) Narrative [facility] POINT OF CARE - 11/14/2024 5:47 AM DYNAMOMETER REPAIRER This exam was auto finalized to allow images to be scanned to PACS. us External Provider [facility] CT ORDERABLES Final Res ult [facility] POINT [facility] CARE CLIA # [id number] [address] [place] [address] * PET BONE IMG W CT SKB (11/05/2024 2:45 PM DYNAMOMETER REPAIRER) Anatomical Region Laterality Modality Positron Emissio n Tomography (PET) us Aydin Carrasco MD PE ORDERABLES Final Result from Last 3 Months Insurance MEDICAID PENDING [place] BCBS BLUE ACCESS/TRUE BLUE PPO RX [facility] Advance Directives For more information, please contact: [phone] Documents on File Type Date Recorded Patient Patternmaker Hand Expl anation Advance Directive POA 11/21/2024 12:12 PM A dvance Directive POA * Full Code (Latest Code Status on File) Date Activated Date Inactivated Comments 11/13/2024 9:50 PM 11/26/2024 8:21 PM
--- OUTSIDE RECORDS SUMMARY | 2025-01-31 10:10 | XMS_ITS | Referral Summary ---
Author Organization [facility] [address] Address [address] [place] [address] Care Team Providers Care Spool Sander Name Role Phone Gia Clark Primary Care Provider [phone] Harry Loredo MD Unavailable [phone] Rachell Mcnulty MD Unavailable [phone] Ramonita Feldman RN Unavailable Encounters Date Type Department Care Team Description 01/24/2025 Telephone [facility] Medical Group Cardiology [address] [facility] [address] [place] [address] Harry Loredo MD 11/27/2024 Telephone [facility] Home Care Services [address] [place] [address] [place] [address] Sarah Gannon 11/26/2024 Telephone [facility] Home Care Services [address] [place] [address] [address] [place] [address] Unknown, Notinfile from Last 3 [...] a day 180 tablet 3 03/19/2024 03/19/20 Active metoprolol XL (TOPROL-XL) 200 mg extended release tablet Take 1 tablet (200 mg total) by mouth daily 90 tablet 3 05/03/2024 05/03/20 25 Active Active Problems Problem Noted Date Diagnosed Date Typical atrial flutter 03/19/2024 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 02/09/2024 End stage renal disease 09/02/2022 Overview (09/02/2022): Added automatically from request for surgery [id number] Hypertension 02/14/2022 Renal mass 02/14/2022 Immunizations Immunization [...] Plan of Treatment Not on file Insurance [facility] P[facility] [address] [id number] Care Teams Spool Sander Relationship Specialty Start Date End Date Gia Clark PA [address] [place] [address] PCP - General Physician Strategic Sourcing Consultant 09/15/22 Harry Loredo MD [address] [facility] [address] [place] [address] Consulting Physician Cardiovascular Disease 03/18/24 Rachell Mcnulty MD [address] [facility] [address] [place] [address] Referring Physician Nephrology 06/05/24 Ramonita Feldman, RN [address] [place] [address] Respiratory Services Manager 06/05/24
--- OUTSIDE RECORDS SUMMARY | 2025-01-31 10:10 | XMS_ITS | Clinical Summary ---
Author Organization [facility] [address] Address [address] [place] [address] Care Team Providers Care Slurry Tank Tender Name Role Phone Gia Clark Primary Care Provider [phone] Harry Loredo MD Unavailable [phone] Rachell Mcnulty MD Unavailable [phone] Ramontia Feldman RN Unavailable [phone] Allergies No known active allergies Medications [...] (09/02/2022): Added automatically from request for surgery [id number] Hypertension 02/14/2022 Renal mass 02/14/2022 Encounters Date Type Department Care Team Description 01/24/2025 Telephone [facility] Medical Group Cardiology [address] [facility] [address] [place] [address] Harry Loredo MD 11/27/2024 Telephone [facility] Home Care Services [address] [facility] [address] [place] [address] Sarah Gannon 11/26/2024 Telephone [facility] Home Care Services [address] [facility] [address] [place] [address] Unknown, Notinfile from Last 3 [...] 08/26/2021, 07/26/2021, Additional history exists Influenza Vaccine (Season Ended) 2025 08/10/20, 07/31/2020 DTaP/Tdap/Td Vaccine (2 - Td or Tdap) 07/15/2032 07/15/2022 Insurance [facility] [employer] [place] [employer] [place] Care Teams Slurry Tank Tender Relationship Specialty Start Date End Date Gia Clark PA [address] [place] [address] PCP - General Physician Delineator 09/15/22 Harry Loredo MD [address] [facility] [address] [place] [address] Consulting Physician Cardiovascular Disease 03/18/24 Rachell Mcnulty MD [address] [address] [place] [address] Referring Physician Nephrology 06/05/24 Ramonita Feldman, RN [address] [place] [address] Tool And Die Supervisor 06/05/24
--- OUTSIDE RECORDS SUMMARY | 2025-01-31 10:10 | XMS_ITS | Encounter Summary ---
Author Organization [facility] Address [address] [place] [address] Care Team Providers Care Jalousies Installer Name Role Phone Unavailable Primary Care Provider Unavailabl e Encounter Details Date Type Department Care Team ([facility] Contact Info) Description 06/02/2023 Telephone [facility] Oncology and Hematology - [place] [address] [facility] [address] [place] [address] [place] [address] [place] [address] [address] [place] [address] Social History Tobacco Use Types [...] Department Care Team (Late Contact Info) Description 02/05/2025 10:00 AM CDT Appointment [facility] [place] [address] [place] [phone] Jesus Luciano, ERNESTO [address] [place], [place] [id number] 04/14/2025 10:15 AM CDT Appointment [facility] Heart [facility] Testing [address] [place] [address] Shanika Sebastian, JOHN [address] [facility] [address] [place] [address] 04/14/2025 11:30 AM CDT Office Visit [facility] [address] [facility] [address] [address] [facility] [address] [place] [address] [place] [address] [facility] [address] [place] [address] documented as of this encounter Visit Diagnoses Not on filedocumented in this encounter
--- OUTSIDE RECORDS SUMMARY | 2025-01-31 10:10 | XMS_ITS | Clinical Summary ---
Author Organization [facility] Address [address] [place] [address] Phone Care Team Providers Care Audit Consultant Name Role Phone Gia Clark Primary Care Provider [phone] Allergies No known active allergies Medications amLODIPine (NORVASC) 10 MG tablet Take 10 mg by mouth 1 (one) time each day 2 Active furosemide (LASIX) 40 MG tablet Take 40 mg by mouth 1 (one) time each day 2 Active lisinopril (PRINIVIL) 20 MG tablet Take 20 mg by mouth 1 (one) time each day 2 Active metoprolol succinate XL (TOPROL-XL) 100 MG 24 hr tablet Take 100 mg by mouth 1 (one) time each day 2 Active HYDROcodone-acet aminophen (NORCO) 5-325 MG per tablet TAKE 1-2 TABLETS BY MOUTH EVERY 6 HOURS NEEDED FOR 2 Active nicotine (NICODERM CQ) 21 MG/24HR UNWRAP AND APPLY 1 PATCH EVERY MORNING 2 Active nicotine polacrilex (NICORETTE) 4 MG gum CHEW 1 PIECE BY MOUTH NEEDED FOR NICOTINE CRAVINGS 2 Active sodium bicarbonate 650 MG tablet Take 2 tablets (1,300 mg total) by mouth 2 (two) times a day 60 tablet 4 2 Active hydrALAZINE (APRESOLINE) 25 MG tablet Take 25 mg by mouth 2 (two) times a day as directed 2 Active aspirin (ST SHER) 81 MG EC tablet Take 81 mg by mouth daily Active cholecalciferol (VITAMIN D-3) 125 MCG (5000 UT) capsule Take 1 capsule by mouth daily Active Active Problems Problem Noted Date Diagnosed Date Renal mass 02/14/2022 Hypertension 02/14/2022 Immunizations Immunization Administration Dates Next Due Sars-cov-2, Unspecified 07/26/2021,01/24/2021, [...] at Not on file Legal Sex Male 8:10 AM [facility] Gender Identity Not on file Sexual Orientation [...] Health Maintenance Due Date Last Done Comments Influenza Vaccine (Season Ended) 2025 08/10/20 21, 07/31/2020 Insurance [employer] Care Teams Audit Consultant Relationship Specialty Start Date End Date Gia Clark PA [address] [place] [phone] PCP - General 01/03/22
--- OUTSIDE RECORDS SUMMARY | 2025-01-31 10:10 | XMS_ITS | Data Portability ---
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 Name Role Phone GIA JACOBS Primary Care [...] D, 25-hydrox y, total, serum 2022 023 HOLLIDAY [facility], [address], [place], [address], 12/20/2022 17:09:37 vitamin B12 + folate, serum or blood 2022 023 HOLLIDAY [facility], [address], [place], [address], 12/20/2022 17:09:36 pro BNP (pro B-type natriuret ic peptide), serum or plasma 2022 023 HOLLIDAY [facility], [address], [place], [address], 12/20/2022 13:14:15 CMP, serum or plasma 2022 023 HOLLIDAY [facility], [address], [place], [address], 12/20/2022 13:11:06 lipid panel, serum 2022 023 HOLLIDAY [facility], [address], [address], [place], [address], 12/20/2022 13:11:05 CBC w/ auto diff 2022 023 HOLLIDAY [facility], [address], [place], [address], 12/20/2022 17:09:40 TSH + free T4, serum 2022 023 HOLLIDAY [facility], [address], [place], [address], 12/20/2022 17:09:35 HbA1c (hemoglob in A1c), blood 2022 023 [email or web address] In-Office Order, Internal Use Only DO Not Attach Compendium DO Not Attach Compendium, Do Not Delete/merge, [id number] 12/19/2022 12:08:18 Referral gastroent erologist referral 2022 023 HOLLIDAY Magnus Marie MD, [address] [facility], [address], [place], [address], 11/14/2022 14:55:02 Procedures None recorded. Surgeries None recorded. Imaging US, echocardi ogram, transthor acic, complete, w/ color flow [address] [facility], [address], [place], [address], 11/03/2023 15:21:02 Medication Orders nicotine 21 mg/24 hr daily transderm al patch 2024 025 HOLLIDAY [facility][id number], [address] [facility], [place], [place], [id number], 12/24/2024 17:04:56 Eliquis 5 mg tablet 03/2024 [facility] #81860, [address], [place], [id number], 12/24/2024 17:18:54 furosemid e 20 mg tablet 2024 [facility] #78593, [address], [place], [id number], 12/24/2024 17:18:53 sodium bicarbona te 650 mg tablet 2024 [facility] #88494, [address] [place] [address], [id number], 12/24/2024 17:32:20 amlodipin e 10 mg tablet 2024 [facility] #70927, [address], [place], [id number], 12/24/2024 17:07:58 hydralazi ne 50 mg tablet 2024 [facility] #98684, [address] [place] [address], [id number], 12/24/2024 17:18:53 metoprolo l succinate ER 200 mg tablet,ex tended release 24 hr 2024 [facility] #05935, [address], [place], [id number], 12/24/2024 17:18:54 Breo Ellipta 200 mcg-25 mcg/dose powder for inhalatio n 2024 [facility], [address], [place], [id number], 12/24/2024 17:18:54 atorvasta tin 40 mg tablet 2024 025 PAULINA [facility] #42345, [address], [place], [id number], 12/24/2024 17:18:54 hydralazi ne 25 mg tablet 2022 023 [facility] #14550, [address], [place], [id number], 12/24/2024 17:04:14 metoprolo l succinate ER 100 mg tablet,ex tended release 24 hr 2022 023 [facility] #87939, [address], [place], [id number], 12/24/2024 17:02:30 amlodipin e 10 mg tablet 2022 023 [email or web address] [facility] #77154, [address], [place], [id number], 12/24/2024 16:46:13 Patient TargetsNo targets recorded. 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, [place], [address], 12/20/2022 13:11:05 12/20/19 23 12/19/2022 LIPID PANEL WITH LDL/H DL RATIO triglyceride s 66 mg/dL <=150 Not Available [facility] ([facility]) [address] [place], [address], 12/20/2022 13:11:05 12/20/19 23 12/19/2022 LIPID PANEL WITH LDL/H DL RATIO HDL cholesterol 54.1 mg/dL 40.0-1 00.0 Not Available [facility] ([facility]) [address] [place], [address], 12/20/2022 13:11:05 12/20/19 23 12/19/2022 LIPID PANEL WITH LDL/H DL RATIO VLDL cholesterol cornelio 13.20 mg/dL 5.00-4 0.00 Not Available [facility] ([facility]) [address] [place], [address], 12/20/2022 13:11:05 12/20/19 23 12/19/2022 LIPID PANEL WITH LDL/H DL RATIO [facility] 62.7 Not Available [facility] ([facility]) [address] [place], [address], 12/20/2022 13:11:05 12/20/19 23 12/19/2022 LIPID PANEL WITH LDL/H DL RATIO LDL/HDL ratio 1.2 Not Available [facility] ([facility]) [address] [place], [address], 12/20/2022 13:11:05 12/20/19 23 12/20/2022 COMP. METAB OLIC PANEL (14) glucose 98 mg/dL 65-99 ANION GP 24.0 mmol/ L N OSMOL 304.0 mOsM/ L H REFER ENCE RANGE : 275.0 -301. 0 Not Available [facility] ([facility]) [address] [place], [address], 12/20/2022 13:11:06 12/20/19 23 12/20/2022 COMP. METAB OLIC PANEL (14) BUN 72 mg/dL 8-26 panic high Not Available [facility] ([facility]) [address] [place], [address], 12/20/2022 13:11:06 12/20/19 23 12/20/2022 COMP. METAB OLIC PANEL (14) creatinine 5.47 mg/dL 0.50-1 .40 panic high Not Available [facility] ([facility]) [address] [place], [address], 12/20/2022 13:11:06 12/20/19 23 12/20/2022 COMP. METAB OLIC PANEL (14) eGFR 11 mL/mi n/1.7 3 >=60 below low normal Not Available [facility] ([facility]) [address] [place], [address], 12/20/2022 13:11:06 12/20/19 23 12/20/2022 COMP. METAB OLIC PANEL (14) BUN/creatini ne ratio 13.1 Not Available [facility] ([facility]) [address] [place], [address], 12/20/2022 13:11:06 12/20/19 23 12/20/2022 COMP. METAB OLIC PANEL (14) sodium 141.9 mmol/ L 136.0- 144.0 Not Available [facility] ([facility]) [address] [place], [address], 12/20/2022 13:11:06 12/20/19 23 12/20/2022 COMP. METAB OLIC PANEL (14) potassium 5.0 mmol/ L 3.5-5. 3 Not Available [facility] ([facility]) [address] [place], [address], 12/20/2022 13:11:06 12/20/19 23 12/20/2022 COMP. METAB OLIC PANEL (14) chloride 105 mmol/ l 101-11 1 Not Available [facility] ([facility]) [address] [place], [address], 12/20/2022 13:11:06 12/20/19 23 12/20/2022 COMP. METAB OLIC PANEL (14) carbon dioxide, total 17.9 mmol/ L 21.0-3 2.0 below low normal Not Available [facility] ([facility]) [address] [place], [address], 12/20/2022 13:11:06 12/20/19 23 12/20/2022 COMP. METAB OLIC PANEL (14) calcium 9.7 mg/dL 8.2-10 .0 Not Available [facility] ([facility]) [address] [place], [address], 12/20/2022 13:11:06 12/20/19 23 12/20/2022 COMP. METAB OLIC PANEL (14) protein, total 6.6 g/dL 6.7-8. 2 below low normal Not Available [facility] ([facility]) [address] [place], [address], 12/20/2022 13:11:06 12/20/19 23 12/20/2022 COMP. METAB OLIC PANEL (14) albumin 4.0 g/dL 3.5-5. 5 Not Available [facility] ([facility]) [address] [place], [address], 12/20/2022 13:11:06 12/20/19 23 12/20/2022 COMP. METAB OLIC PANEL (14) globulin, total 2.6 g/dL 1.5-4. 5 Not Available [facility] ([facility]) [address] [place], [address], 12/20/2022 13:11:06 12/20/19 23 12/20/2022 COMP. METAB OLIC PANEL (14) A/G ratio 1.6 Not Available [facility] ([facility]) [address] [place], [address], 12/20/2022 13:11:06 12/20/19 23 12/20/2022 COMP. METAB OLIC PANEL (14) bilirubin, total 0.3 mg/dL 0.0-1. 2 Not Available [facility] ([facility]) [address] [place], [address], 12/20/2022 13:11:06 12/20/19 23 12/20/2022 COMP. METAB OLIC PANEL (14) alkaline phosphatase 87.0 IU/L 42.0-1 21.0 Not Available [facility] ([facility]) [address] [place], [address], 12/20/2022 13:11:06 12/20/19 23 12/20/2022 COMP. METAB OLIC PANEL (14) AST (SGOT) 16.3 U/L 10.0-4 2.0 Not Available [facility] ([facility]) [address] [place], [address], 12/20/2022 13:11:06 12/20/19 23 12/20/2022 COMP. METAB OLIC PANEL (14) ALT (SGPT) 20.7 U/L 10.0-6 0.0 Not Available [facility] ([facility]) [address] [place], [address], 12/20/2022 13:11:06 12/20/19 23 12/20/2022 TSH+F REE T4 TSH 1.010 uIU/m L 0.450- 4.500 Not Available [facility] ([facility]) [address] [place], [address], 12/20/2022 17:09:35 12/20/19 23 12/20/2022 TSH+F REE T4 T4,free(dire ct) 1.88 NG/dL 0.82-1 .77 above high normal Not Available [facility] ([facility]) [address] [facility] [address], [place], [address], 12/20/2022 17:09:35 12/20/19 23 12/20/2022 HEMOG LOBIN A1C hemoglobin A1C - % Test not perfo rmed. No laven deepti top tube submi tted. Predi abete s: 5.7 - 6.4 Diabe daniel: >6.4 Glyce david contr ol for adult s with diabe daniel: <7.0 Not Available [facility] ([facility]) [address] [facility] [address], [place], [address], 12/20/2022 17:09:36 12/20/19 23 12/20/2022 VITAM IN [...] Delon ferrer [place]: The Natio nal [facility] Press . 2. Kris emerson MF, Britney choe NC, Chas off-F errar i MERCHANT, et al. Evalu ation , treat ment, and preve ntion of vitam in D defic iency : an Endoc rine Socie ty clini cornelio pract ice guide line. JCEM. 2010; 96(7) :1911 -30. Not Available [facility] ([facility]) [address] [facility] [address], [place], [address], 12/20/2022 17:09:37 03/06/20 23 12/20/2022 CBC WITH DIFFE RENTI AL/PL ATELE T WBC - x10e3 /uL Test not perfo rmed. No laven deepti top tube submi tted. Not Available [facility] ([facility]) [address] [facility] [address], [place], [address], 12/20/2022 17:09:40 12/20/19 23 12/20/2022 CBC WITH DIFFE RENTI AL/PL ATELE T RBC - Test not perfo rmed Not Available [facility] ([facility]) [address] [place], [address], 12/20/2022 17:09:40 12/20/19 23 12/20/2022 CBC WITH DIFFE RENTI AL/PL ATELE T hemoglobin - Test not perfo rmed Not Available [facility] ([facility]) [address] [facility], [place], [address], 12/20/2022 17:09:40 12/20/19 23 12/20/2022 CBC WITH DIFFE RENTI AL/PL ATELE T hematocrit - Test not perfo rmed Not Available [facility] ([facility]) [address] [facility], [place], [address], 12/20/2022 17:09:40 12/20/19 23 12/20/2022 CBC WITH DIFFE RENTI AL/PL ATELE T platelets - Test not perfo rmed Not Available [facility] ([facility]) [address] [place], [address], 12/20/2022 17:09:40 12/20/19 23 12/20/2022 CBC WITH DIFFE RENTI AL/PL ATELE T neutrophils - Test not perfo rmed Not Available [facility] ([facility]) [address] [place], [address], 12/20/2022 17:09:40 12/20/19 23 12/20/2022 CBC WITH DIFFE RENTI AL/PL ATELE T lymphs - Test not perfo rmed Not Available [facility] ([facility]) [address] [place], [address], 12/20/2022 17:09:40 12/20/19 23 12/20/2022 CBC WITH DIFFE RENTI AL/PL ATELE T monocytes - Test not perfo rmed Not Available [facility] ([facility]) [address] [place], [address], 12/20/2022 17:09:40 12/20/19 23 12/20/2022 CBC WITH DIFFE RENTI AL/PL ATELE T eos - Test not perfo rmed Not Available [facility] ([facility]) [address] [facility], [place], [address], 12/20/2022 17:09:40 12/20/19 23 12/20/2022 CBC WITH DIFFE RENTI AL/PL ATELE T lymphs (absolute) - Test not perfo rmed Not Available [facility] ([facility]) [address] [place], [address], 12/20/2022 17:09:40 12/20/19 23 12/20/2022 CBC WITH DIFFE RENTI AL/PL ATELE T eos (absolute) - Test not perfo rmed Not Available [facility] ([facility]) [address] [place], [address], 12/20/2022 17:09:40 12/20/19 23 12/20/2022 CBC WITH DIFFE RENTI AL/PL ATELE T baso (absolute) - Test not perfo rmed Not Available [facility] ([facility]) [address] [place], [address], 12/20/2022 17:09:40 12/20/19 23 12/20/2022 VITAM IN B12 AND FOLAT E vitamin B12 635 pg/mL 232-12 45 Not Available [facility] ([facility]) [address] [facility], [place], [address], 12/20/2022 17:09:36 12/20/19 23 12/20/2022 VITAM IN B12 AND FOLAT E folate (folic acid), serum 6.7 NG/mL >3.0 A serum folat e lynnette ntrat ion of less than 3.1 ng/mL is consi dered to repre sent clini cornelio defic iency . Not Available [facility] ([facility]) [address] [facility], [place], [address], 12/20/2022 17:09:36 12/20/1912/20/2022 NT-ND OBNP nt-probnp 4880 [...] enden t 300 pg/mL Not Available [facility] ([facility]) [address] [facility], [place], [address], 12/20/2022 17:09:35 12/20/19 23 12/20/2022 SPECI MEN STATU S REPOR T specimen status report TNP Test not perfo rmed. No laven deepti top tube submi tted. TEST: [id number] Hemog lobin A1c Not Available [facility] ([facility]) [address] [facility], [place], [address], 12/20/2022 17:09:34 12/20/19 23 12/20/2022 SPECI MEN STATU S REPOR T specimen status report TNP No laven deepti top tube submi tted. TEST: 9 CBC With Diffe renti al/Pl atele t Not Available [facility] ([facility]) [address] [facility], [place], [address], 12/20/2022 13:11:05 12/20/19 23 12/19/2022 HbA1c (hemo globi n A1c), blood HbA1c 5.3 Not Available In-Office Order Internal Use Only DO Not Attach Compendium DO Not Attach Compendium, Do Not Delete/merge, [id number] 12/19/2022 11:44:02 12/20/19 23 12/20/2022 SPECI MEN STATU S REPOR T specimen status report TNP Test not perfo rmed. No laven deepti top tube submi tted. TEST: [id number] CBC With Diffe renti al/Pl atele t Not Available [facility] ([facility]) [address] [facility], [place], [address], 12/20/2022 17:09:39 11/14/19 25 11/14/2024 CBC W Auto Diffe renti al panel - Blood leukocytes [#/volume] in blood 12.8 K/uL low: 4K/uLh igh: 9.8K/u L high WBC 12.8 (H) 4.0 - 9.8 K/uL 11/14 2:15 AM GOLF CADDY [employer] [facility] Not Available Not Available 12/24/2024 17:32:29 11/14/19 25 11/14/2024 CBC W Auto Diffe renti al panel - Blood RBC 2.24 text: 4.50 - 5.40 M/uL low RBC 2.24 (L) 4.50 - 5.40 M/uL 11/14 2:15 AM GOLF CADDY [employer] [facility] Not Available Not Available 12/24/2024 17:32:29 11/14/19 25 11/14/2024 CBC W Auto Diffe renti al panel - Blood hemoglobin 7.8 g/dL low: 13.6g/ dLhigh : 16.5g/ dL low HEMOG LOBIN 7.8 (L) 13.6 - 16.5 g/dL 11/14 2:15 [facility] Not [facility] Not Available 12/24/2024 17:32:29 11/14/19 25 11/14/2024 CBC W Auto Diffe nathanti al panel - Blood hematocrit [volume fraction] of blood by automated count 24.6 % low: 40%hig h: 48% low HEMAT OCRIT 24.6 (L) 40.0 - 48.0 % 11/14 2:15 AM [employer] [facility] Not Available Not Available 12/24/2024 17:32:29 11/14/19 25 11/14/2024 CBC W Auto Diffe nathanti al panel - Blood MCV 109.8 fL low: 82fLhi gh: 99fL high MCV 109.8 (H) 82.0 - 99.0 fL 11/14 2:15 [facility] Not Available Not Available 12/24/2024 17:32:29 11/14/19 25 11/14/2024 CBC W Auto Diffe nathanti al panel - Blood MCH 34.8 pg low: 27.2pg high: 32.6pg high MCH 34.8 (H) 27.2 - 32.6 pg 11/14 2:15 AM [facility] Not Available Not Available 12/24/2024 17:32:29 11/14/19 25 11/14/2024 CBC W Auto Diffe renti al panel - Blood MCHC 31.7 g/dL low: 31.5g/ dLhigh : 35.5g/ dL MCHC 31.7 31.5 - 35.5 g/dL 11/14 2:15 AM [facility] Not Available Not Available 12/24/2024 17:32:29 11/14/19 25 11/14/2024 CBC W Auto Diffe renti al panel - Blood RDW 15 % low: 11.5%h igh: 14.5% high RDW 15.0 (H) 11.5 - 14.5 % 11/14 2:15 AM [employer] [facility] Not Available Not Available 12/24/2024 17:32:29 11/14/19 25 11/14/2024 CBC W Auto Diffe renti al panel - Blood RDW-stdev 60.4 fL low: 37.1fL high: 48.7fL high RDW-S TDEV 60.4 (H) 37.1 - 48.7 fL 11/14 2:15 AM [employer] [facility] Not Available Not Available 12/24/2024 17:32:29 11/14/19 25 11/14/2024 CBC W Auto Diffe renti al panel - Blood platelets [#/volume] in blood by automated count 360 K/uL low: 140K/u Lhigh: 350K/u L high PLATE LETS 360 (H) 140 - 350 K/uL 11/14 2:15 AM [employer] [facility] Not Available Not Available 12/24/2024 17:32:29 11/14/19 25 11/14/2024 CBC W Auto Diffe renti al panel - Blood MPV 10.2 fL low: 9.3fLh igh: 12.4fL MPV 10.2 9.3 - 12.4 fL 11/14 2:15 AM [employer] [facility] Not Available Not Available 12/24/2024 17:32:29 11/14/19 25 11/14/2024 CBC W Auto Diffe renti al panel - Blood neutrophils 78 % NEUTR OPHIL S 78 % 11/14 2:15 AM [employer] [facility] Not Available Not Available 12/24/2024 17:32:29 11/14/19 25 11/14/2024 CBC W Auto Diffe renti al panel - Blood lymphocytes/ 100 leukocytes in blood by automated count 10 % LYMPH OCYTE S 10 % 11/14 2:15 AM [facility] Not [facility] Not Available 12/24/2024 17:32:29 11/14/19 25 11/14/2024 CBC W Auto Diffe renti al panel - Blood monocytes 10 % MONOC YTES 10 % 11/14 2:15 AM GOLF CADDY [employer] [facility] Not Available Not Available 12/24/2024 17:32:29 11/14/19 25 11/14/2024 CBC W Auto Diffe renti al panel - Blood eosinophils 1 % EOSIN OPHIL S 1 % 11/14 2:15 AM GOLF CADDY [employer] [facility] Not Available Not Available 12/24/2024 17:32:29 11/14/19 25 11/14/2024 CBC W Auto Diffe renti al panel - Blood basophils 1 % BASOP HILS 1 % 11/14 2:15 AM [employer] [facility] Not Available Not Available 12/24/2024 17:32:29 11/14/19 25 11/14/2024 CBC W Auto Diffe renti al panel - Blood immature granulocytes 1 % IMMAT URE GRANU LOCYT ES 1 % 11/14 2:15 AM [employer] [facility] Not Available Not Available 12/24/2024 17:32:29 11/14/19 25 11/14/2024 CBC W Auto Diffe renti al panel - Blood neutrophils [#/volume] in blood by automated count 9.97 K/uL low: 1.9K/u Lhigh: 7K/uL high NEUTR OPHIL ABSOL [place] 9.97 (H) 1.90 - 7.00 K/uL 11/14 2:15 AM [employer] [facility] Not Available Not Available 12/24/2024 17:32:29 11/14/19 25 11/14/2024 CBC W Auto Diffe renti al panel - Blood lymphocyte absolute 1.21 K/uL low: 0.7K/u Lhigh: 4.5K/u L LYMPH OCYTE ABSOL [place] 1.21 0.70 - 4.50 K/uL 11/14 2:15 AM [employer] [facility] Not Available Not Available 12/24/2024 17:32:29 11/14/19 25 11/14/2024 CBC W Auto Diffe renti al panel - Blood monocyte absolute 1.25 K/uL low: 0.1K/u Lhigh: 1.3K/u L MONOC YTE ABSOL [place] 1.25 0.10 - 1.30 K/uL 11/14 2:15 AM GOLF CADDY [employer] [facility] Not Available Not Available 12/24/2024 17:32:29 11/14/19 25 11/14/2024 CBC W Auto Diffe renti al panel - Blood eosinophil absolute 0.17 K/uL low: 0K/uLh igh: 0.7K/u L EOSIN OPHIL ABSOL [place] 0.17 0.00 - 0.70 K/uL 11/14 2:15 AM GOLF CADDY [employer] [facility] Not Available Not Available 12/24/2024 17:32:29 11/14/19 25 11/14/2024 CBC W Auto Diffe renti al panel - Blood basophils absolute 0.06 K/uL low: 0K/uLh igh: 0.2K/u L BASOP HILS ABSOL [place] 0.06 0.00 - 0.20 K/uL 11/14 2:15 AM GOLF CADDY [employer] [facility] Not Available Not Available 12/24/2024 17:32:29 11/14/19 25 11/14/2024 CBC W Auto Diffe renti al panel - Blood immature granulocytes absolute 0.11 K/uL low: 0K/uLh igh: 0.03K/ uL high IMMAT URE GRANU LOCYT ES ABSOL [place] 0.11 (H) 0.00 - 0.03 K/uL 11/14 2:15 AM [employer] [facility] Not Available Not Available 12/24/2024 17:32:29 [...] - 145 mmol/ L 11/14 2:44 AM [employer] [facility] Not Available Not Available 12/24/2024 17:32:07 11/14/19 25 11/14/2024 Compr ehens francisco metab olic 1999 panel - Serum or Plasm a potassium [moles/volum e] in serum or plasma 4.2 mmol/ L low: 3.4mmo l/Lhig h: 5.1mmo l/L POTAS SIUM 4.2 3.4 - 5.1 mmol/ L 11/14 2:44 AM [facility] Not Available Not Available 12/24/2024 17:32:07 11/14/19 25 11/14/2024 Compr ehens francisco metab olic 1999 panel - Serum or Plasm a chloride 91 mmol/ L low: 98mmol /Lhigh : 107mmo l/L low CHLOR BURT 91 (L) 98 - 107 mmol/ L 11/14 2:44 AM [employer] [facility] Not Available Not Available 12/24/2024 17:32:07 11/14/19 25 11/14/2024 Compr ehens francisco metab olic 1999 panel - Serum or Plasm a carbon dioxide, total [moles/volum e] in serum or plasma 25 mmol/ L low: 22mmol /Lhigh : 29mmol /L CO2 25 22 - 29 mmol/ L 11/14 2:44 AM [employer] [facility] Not Available Not Available 12/24/2024 17:32:07 11/14/19 25 11/14/2024 Compr ehens francisco metab olic 1999 panel - Serum or Plasm a calcium 9.3 mg/dL low: 8.6mg/ dLhigh : 10.4mg /dL CALCI UM 9.3 8.6 - 10.4 mg/dL 11/14 2:44 AM [employer] [facility] Not Available Not Available 12/24/2024 17:32:07 11/14/19 25 11/14/2024 Compr ehens [place] metab olic 1999 panel - Serum or Plasm a BUN 44 mg/dL low: 6mg/dL high: 20mg/d L high BUN 44 (H) 6 - 20 mg/dL 11/14 2:44 AM [employer] [facility] Not Available Not Available 12/24/2024 17:32:07 11/14/19 25 11/14/2024 Compr ehens [place] metab olic 1999 panel - Serum or Plasm a creatinine [mass/volume ] in serum or plasma 7.14 mg/dL low: 0.67mg /dLhig h: 1.17mg /dL high CREAT ININE 7.14 (H) 0.67 - 1.17 mg/dL 11/14 2:44 AM [employer] [facility] Not Available Not Available 12/24/2024 17:32:07 11/14/19 25 11/14/2024 Compr ehens [place] metab olic 1999 panel - Serum or Plasm a glucose [mass/volume ] in serum or plasma 100 mg/dL low: 74mg/d Lhigh: 99mg/d L high GLUCO SE 100 (H) 74 - 99 mg/dL 11/14 2:44 AM [employer] [facility] Not Available Not Available 12/24/2024 17:32:07 11/14/19 25 11/14/2024 Compr ehens [place] metab olic 1999 panel - Serum or Plasm a total protein 6.1 g/dL low: 6.3g/d Lhigh: 8.7g/d L low TOTAL PROTE IN 6.1 (L) 6.3 - 8.7 g/dL 11/14 2:44 AM [employer] [facility] Not Available Not Available 12/24/2024 17:32:07 11/14/19 25 11/14/2024 Compr ehens [place] metab olic 2000 panel - Serum or Plasm a albumin 3.1 g/dL low: 3.5g/d Lhigh: 5.2g/d L low ALBUM IN 3.1 (L) 3.5 - 5.2 g/dL 11/14 2:44 AM [employer] [facility] Not Available Not Available 12/24/2024 17:32:07 11/14/19 25 11/14/2024 Compr ehens [place] metab olic 1999 panel - Serum or Plasm a bilirubin total low: 0.2mg/ dLhigh : 1.1mg/ dL low BILIR UBIN TOTAL <0.2 (L) 0.2 - 1.1 mg/dL 11/14 2:44 AM [employer] [facility] Not Available Not Available 12/24/2024 17:32:07 11/14/19 25 11/14/2024 Compr ehens francisco metab olic 2000 panel - Serum or Plasm a alkaline phosphatase 67 U/L low: 40U/Lh igh: 150U/L ALKAL INE PHOSP HATAS E 67 40 - 150 U/L 11/14 2:44 AM [employer] [facility] Not Available Not Available 12/24/2024 17:32:07 11/14/19 25 11/14/2024 Compr ehens francisco metab olic 1999 panel - Serum or Plasm a AST 20 U/L low: 0U/Lhi gh: 41U/L AST 20 0 - 41 U/L 11/14 2:44 AM [employer] [facility] Not Available Not Available 12/24/2024 17:32:07 11/14/19 25 11/14/2024 Compr ehens francisco metab olic 1999 panel - Serum or Plasm a alanine aminotransfe rase [enzymatic activity/vol ume] in blood 17 U/L low: 0U/Lhi gh: 41U/L ALT 17 0 - 41 U/L 11/14 2:44 AM [employer] [facility] Not Available Not Available 12/24/2024 17:32:07 11/14/19 25 11/14/2024 Compr ehens francisco metab olic 1999 panel - Serum or Plasm a glomerular filtration rate/1.73 sq M.predicted [volume rate/area] in serum, plasma or blood by creatinine-b ased formula (CKD-epi 2020) 8 text: >=60 mL/min /1.73 sq meter low GFR 8 (L) >=60 mL/mi n/1.7 3 sq meter 11/14 2:44 AM GOLF CADD[facility] [place] Not Available Not Available 12/24/2024 17:32:07 11/14/19 25 11/14/2024 Compr ehens francisco metab olic 1999 panel - Serum or Plasm a anion gap 13 mmol/ L low: 8mmol/ Lhigh: 16mmol /L ANION GAP 13 8 - 16 mmol/ L 11/14 2:44 AM GOLF CADDY [employer] [facility] Not Available Not Available 12/24/2024 17:32:07 [...] RE No growt h 11/20 9:03 PM [facility] C[facility] Not Available Not Available 12/24/2024 17:32:07 11/15/19 25 11/20/2024 Bacte shaneka ident ified in Blood by Cultu re interpretati on and review of laboratory results Normal Not Available Not Available 12/14 17:32:07 11/15/19 25 11/20/2024 Bacte shaneka ident ified in Blood by Cultu re bacteria identified in specimen by culture No growth BLOOD CULTU RE No growt h 11/20 9:03 PM [facility] CADD[facility] Not Available Not [...] - 145 mmol/ L 11/15 2:27 AM [employer] [facility] Not Available Not Available 12/24/2024 17:32:29 11/15/19 25 11/15/2024 Renal funct ion 1999 panel - Serum or Plasm a potassium [moles/volum e] in serum or plasma 4.3 mmol/ L low: 3.4mmo l/Lhig h: 5.1mmo l/L POTAS SIUM 4.3 3.4 - 5.1 mmol/ L 11/15 2:27 AM [employer] [facility] Not Available Not Available 12/24/2024 17:32:29 11/15/19 25 11/15/2024 Renal funct ion 1999 panel - Serum or Plasm a chloride 94 mmol/ L low: 98mmol /Lhigh : 107mmo l/L low CHLOR BURT 94 (L) 98 - 107 mmol/ L 11/15 2:27 AM [employer] [facility] Not Available Not Available 12/24/2024 17:32:29 11/15/19 25 11/15/2024 Renal funct ion 1999 panel - Serum or Plasm a carbon dioxide, total [moles/volum e] in serum or plasma 20 mmol/ L low: 22mmol /Lhigh : 29mmol /L low CO2 20 (L) 22 - 29 mmol/ L 11/15 2:27 AM [employer] [facility] Not Available Not Available 12/24/2024 17:32:29 11/15/19 25 11/15/2024 Renal funct ion 1999 panel - Serum or Plasm a calcium 9.3 mg/dL low: 8.6mg/ dLhigh : 10.4mg /dL CALCI UM 9.3 8.6 - 10.4 mg/dL 11/15 2:27 AM [employer] [facility] Not Available Not Available 12/24/2024 17:32:29 11/15/19 25 11/15/2024 Renal funct ion 1999 panel - Serum or Plasm a BUN 51 mg/dL low: 6mg/dL high: 20mg/d L high BUN 51 (H) 6 - 20 mg/dL 11/15 2:27 AM [employer] [facility] Not Available Not Available 12/24/2024 17:32:29 11/15/19 25 11/15/2024 Renal funct ion 1999 panel - Serum or Plasm a creatinine [mass/volume ] in serum or plasma 8.68 mg/dL low: 0.67mg /dLhig h: 1.17mg /dL high CREAT ININE 8.68 (H) 0.67 - 1.17 mg/dL 11/15 2:27 AM [employer] [facility] Not Available Not Available 12/24/2024 17:32:29 11/15/19 25 11/15/2024 Renal funct ion 1999 panel - Serum or Plasm a glucose [mass/volume ] in serum or plasma 103 mg/dL low: 74mg/d Lhigh: 99mg/d L high GLUCO SE 103 (H) 74 - 99 mg/dL 11/15 2:27 AM [employer] [facility] Not Available Not Available 12/24/2024 17:32:29 11/15/19 25 11/15/2024 Renal funct ion 1999 panel - Serum or Plasm a albumin 2.9 g/dL low: 3.5g/d Lhigh: 5.2g/d L low ALBUM IN 2.9 (L) 3.5 - 5.2 g/dL 11/15 2:27 AM [employer] [facility] Not Available Not Available 12/24/2024 17:32:29 11/15/19 25 11/15/2024 Renal funct ion 1999 panel - Serum or Plasm a phosphorus 4.4 mg/dL low: 2.5mg/ dLhigh : 4.5mg/ dL PHOSP HORUS 4.4 2.5 - 4.5 mg/dL 11/15 2:27 AM Endoluminal SciencesAMERICAN HEALTHCARE SYSTEMSFrontalRain Technologies [facility] Not Available Not Available 12/24/2024 17:32:29 11/15/19 25 11/15/2024 Renal funct ion 1999 panel - Serum or Plasm a glomerular filtration rate/1.73 sq M.predicted [volume rate/area] in serum, plasma or blood by creatinine-b ased formula (CKD-epi 2020) 6 text: >=60 mL/min /1.73 sq meter low GFR 6 (L) >=60 mL/mi n/1.7 3 sq meter 11/15 2:27 AM [facility] Not [facility] Not Available 12/24/2024 17:32:29 11/15/19 25 11/15/2024 Renal funct ion 1999 panel - Serum or Plasm a anion gap 16 mmol/ L low: 8mmol/ Lhigh: 16mmol /L ANION GAP 16 8 - 16 mmol/ L 11/15 2:27 AM [facility] Not Available Not Available 12/24/2024 17:32:29 [...] 4.0 - 9.8 K/uL 11/15 2:35 AM Endoluminal SciencesAMERICAN HEALTHCARE SYSTEMSFrontalRain Technologies [facility] Not Available Not Available 12/24/2024 17:32:29 11/15/19 25 11/15/2024 CBC W Auto Diffe renti al panel - Blood RBC 2.23 text: 4.50 - 5.40 M/uL low RBC 2.23 (L) 4.50 - 5.40 M/uL 11/15 2:35 AM Hunie [facility] Not Available Not Available 12/24/2024 17:32:29 11/15/19 25 11/15/2024 CBC W Auto Diffe renti al panel - Blood hemoglobin 7.6 g/dL low: 13.6g/ dLhigh : 16.5g/ dL low HEMOG LOBIN 7.6 (L) 13.6 - 16.5 g/dL 11/15 2:35 AM Triea SystemsIvonne [facility] Not Available Not Available 12/24/2024 17:32:29 11/15/19 25 11/15/2024 CBC W Auto Diffe renti al panel - Blood hematocrit [volume fraction] of blood by automated count 23.9 % low: 40%hig h: 48% low HEMAT OCRIT 23.9 (L) 40.0 - 48.0 % 11/15 2:35 AM Triea SystemsIvonne [facility] Not Available Not Available 12/24/2024 17:32:29 11/15/19 25 11/15/2024 CBC W Auto Diffe renti al panel - Blood MCV 107.2 fL low: 82fLhi gh: 99fL high MCV 107.2 (H) 82.0 - 99.0 fL 11/15 2:35 AM Triea SystemsIvonne [facility] Not Available Not Available 12/24/2024 17:32:29 11/15/19 25 11/15/2024 CBC W Auto Diffe renti al panel - Blood MCH 34.1 pg low: 27.2pg high: 32.6pg high MCH 34.1 (H) 27.2 - 32.6 pg 11/15 2:35 AM Triea SystemsIvonne [facility] Not Available Not Available 12/24/2024 17:32:29 11/15/19 25 11/15/2024 CBC W Auto Diffe renti al panel - Blood MCHC 31.8 g/dL low: 31.5g/ dLhigh : 35.5g/ dL MCHC 31.8 31.5 - 35.5 g/dL 11/15 2:35 AM [employer] [facility] Not Available Not Available 12/24/2024 17:32:29 11/15/19 25 11/15/2024 CBC W Auto Diffe renti al panel - Blood RDW 14.9 % low: 11.5%h igh: 14.5% high RDW 14.9 (H) 11.5 - 14.5 % 11/15 2:35 AM GOLF CADDY [employer] [facility] Not Available Not Available 12/24/2024 17:32:29 11/15/19 25 11/15/2024 CBC W Auto Diffe renti al panel - Blood RDW-stdev 58.8 fL low: 37.1fL high: 48.7fL high RDW-S TDEV 58.8 (H) 37.1 - 48.7 fL 11/15 2:35 AM GOLF CADDY [employer] [facility] Not Available Not Available 12/24/2024 17:32:29 11/15/19 25 11/15/2024 CBC W Auto Diffe renti al panel - Blood platelets [#/volume] in blood by automated count 391 K/uL low: 140K/u Lhigh: 350K/u L high PLATE LETS 391 (H) 140 - 350 K/uL 11/15 2:35 AM GOLF CADDY [employer] [facility] Not Available Not Available 12/24/2024 17:32:29 11/15/19 25 11/15/2024 CBC W Auto Diffe renti al panel - Blood MPV 9.8 fL low: 9.3fLh igh: 12.4fL MPV 9.8 9.3 - 12.4 fL 11/15 2:35 AM [employer] [facility] Not Available Not Available 12/24/2024 17:32:29 11/15/19 25 11/15/2024 CBC W Auto Diffe renti al panel - Blood neutrophils 81 % NEUTR OPHIL S 81 % 11/15 2:35 AM [employer] [facility] Not Available Not Available 12/24/2024 17:32:29 11/15/19 25 11/15/2024 CBC W Auto Diffe renti al panel - Blood lymphocytes/ 100 leukocytes in blood by automated count 7 % LYMPH OCYTE S 7 % 11/15 2:[address] [employer] [facility] Not Available Not Available 12/24/2024 17:32:29 11/15/19 25 11/15/2024 CBC W Auto Diffe renti al panel - Blood monocytes 8 % MONOC YTES 8 % 11/15 2:35 AM GOLF CADDY [employer] [facility] Not Available Not Available 12/24/2024 17:32:29 11/15/19 25 11/15/2024 CBC W Auto Diffe renti al panel - Blood eosinophils 2 % EOSIN OPHIL S 2 % 11/15 2:35 AM GOLF CADDY [employer] [facility] Not Available Not Available 12/24/2024 17:32:29 11/15/19 25 11/15/2024 CBC W Auto Diffe renti al panel - Blood basophils 1 % BASOP HILS 1 % 11/15 2:35 AM [employer] [facility] Not Available Not Available 12/24/2024 17:32:29 11/15/19 25 11/15/2024 CBC W Auto Diffe renti al panel - Blood immature granulocytes 1 % IMMAT URE GRANU LOCYT ES 1 % 11/15 2:35 AM GOLF CADDY [employer] [facility] Not Available Not Available 12/24/2024 17:32:29 11/15/19 25 11/15/2024 CBC W Auto Diffe renti al panel - Blood neutrophils [#/volume] in blood by automated count 9.37 K/uL low: 1.9K/u Lhigh: 7K/uL high NEUTR OPHIL ABSOL [place] 9.37 (H) 1.90 - 7.00 K/uL 11/15 2:[address] [employer] [facility] Not Available Not Available 12/24/2024 17:32:29 11/15/19 25 11/15/2024 CBC W Auto Diffe renti al panel - Blood lymphocyte absolute 0.82 K/uL low: 0.7K/u Lhigh: 4.5K/u L LYMPH OCYTE ABSOL [place] 0.82 0.70 - 4.50 K/uL 11/15 2:35 AM [employer] [facility] Not Available Not Available 12/24/2024 17:32:29 11/15/19 25 11/15/2024 CBC W Auto Diffe renti al panel - Blood monocyte absolute 0.94 K/uL low: 0.1K/u Lhigh: 1.3K/u L MONOC YTE ABSOL [place] 0.94 0.10 - 1.30 K/uL 11/15 2:35 AM [employer] [facility] Not Available Not Available 12/24/2024 17:32:29 11/15/19 25 11/15/2024 CBC W Auto Diffe renti al panel - Blood eosinophil absolute 0.23 K/uL low: 0K/uLh igh: 0.7K/u L EOSIN OPHIL ABSOL [place] 0.23 0.00 - 0.70 K/uL 11/15 2:35 AM [employer] [facility] Not Available Not Available 12/24/2024 17:32:29 11/15/19 25 11/15/2024 CBC W Auto Diffe renti al panel - Blood basophils absolute 0.07 K/uL low: 0K/uLh igh: 0.2K/u L BASOP HILS ABSOL [place] 0.07 0.00 - 0.20 K/uL 11/15 2:35 AM [employer] [facility] Not Available Not Available 12/24/2024 17:32:29 11/15/19 25 11/15/2024 CBC W Auto Diffe renti al panel - Blood immature granulocytes absolute 0.09 K/uL low: 0K/uLh igh: 0.03K/ uL high IMMAT URE GRANU LOCYT ES ABSOL [place] 0.09 (H) 0.00 - 0.03 K/uL 11/15 2:35 AM [employer] [facility] Not Available Not Available 12/24/2024 17:32:29 [...] VE Non-r eacti ve 11/15 6:48 PM GOLF CADDY [facility] Not Available Not Available 12/24/2024 17:32:07 [...] - 145 mmol/ L 11/16 7:04 AM GOLF CADDY [employer] [facility] Not Available Not Available 12/24/2024 17:32:29 11/16/19 25 11/16/2024 Renal funct ion 1999 panel - Serum or Plasm a potassium [moles/volum e] in serum or plasma 4.3 mmol/ L low: 3.4mmo l/Lhig h: 5.1mmo l/L POTAS SIUM 4.3 3.4 - 5.1 mmol/ L 11/16 7:04 AM GOLF CADDY [employer] [facility] Not Available Not Available 12/24/2024 17:32:29 11/16/19 25 11/16/2024 Renal funct ion 1999 panel - Serum or Plasm a chloride 100 mmol/ L low: 98mmol /Lhigh : 107mmo l/L CHLOR BURT 100 98 - 107 mmol/ L 11/16 7:04 AM GOLF CADDY [employer] [facility] Not Available Not Available 12/24/2024 17:32:29 11/16/19 25 11/16/2024 Renal funct ion 1999 panel - Serum or Plasm a carbon dioxide, total [moles/volum e] in serum or plasma 22 mmol/ L low: 22mmol /Lhigh : 29mmol /L CO2 22 22 - 29 mmol/ L 11/16 7:04 AM Endoluminal SciencesAMERICAN HEALTHCARE SYSTEMSFrontalRain Technologies [facility] Not Available Not Available 12/24/2024 17:32:29 11/16/19 25 11/16/2024 Renal funct ion 1999 panel - Serum or Plasm a calcium 9.5 mg/dL low: 8.6mg/ dLhigh : 10.4mg /dL CALCI UM 9.5 8.6 - 10.4 mg/dL 11/16 7:04 AM [facility] Not Available Not Available 12/24/2024 17:32:29 11/16/19 25 11/16/2024 Renal funct ion 1999 panel - Serum or Plasm a BUN 31 mg/dL low: 6mg/dL high: 20mg/d L high BUN 31 (H) 6 - 20 mg/dL 11/16 7:04 AM [employer] [facility] Not Available Not Available 12/24/2024 17:32:29 11/16/19 25 11/16/2024 Renal funct ion 1999 panel - Serum or Plasm a creatinine [mass/volume ] in serum or plasma 5.56 mg/dL low: 0.67mg /dLhig h: 1.17mg /dL high CREAT ININE 5.56 (H) 0.67 - 1.17 mg/dL 11/16 7:04 AM [employer] [facility] Not Available Not Available 12/24/2024 17:32:29 11/16/19 25 11/16/2024 Renal funct ion 1999 panel - Serum or Plasm a glucose [mass/volume ] in serum or plasma 98 mg/dL low: 74mg/d Lhigh: 99mg/d L GLUCO SE 98 74 - 99 mg/dL 11/16 7:04 AM [facility] Not Available Not Available 12/24/2024 17:32:29 11/16/19 25 11/16/2024 Renal funct ion 1999 panel - Serum or Plasm a albumin 3 g/dL low: 3.5g/d Lhigh: 5.2g/d L low ALBUM IN 3.0 (L) 3.5 - 5.2 g/dL 11/16 7:04 AM [employer] [facility] Not Available Not Available 12/24/2024 17:32:29 11/16/19 25 11/16/2024 Renal funct ion 1999 panel - Serum or Plasm a phosphorus 3.7 mg/dL low: 2.5mg/ dLhigh : 4.5mg/ dL PHOSP HORUS 3.7 2.5 - 4.5 mg/dL 11/16 7:04 AM [employer] [facility] Not Available Not Available 12/24/2024 17:32:29 11/16/19 25 11/16/2024 Renal funct ion 1999 panel - Serum or Plasm a glomerular filtration rate/1.73 sq M.predicted [volume rate/area] in serum, plasma or blood by creatinine-b ased formula (CKD-epi 2020) 11 text: >=60 mL/min /1.73 sq meter low GFR 11 (L) >=60 mL/mi n/1.7 3 sq meter 11/16 7:04 AM [facility] [place] Not Available Not Available 12/24/2024 17:32:29 11/16/19 25 11/16/2024 Renal funct ion 1999 panel - Serum or Plasm a anion gap 14 mmol/ L low: 8mmol/ Lhigh: 16mmol /L ANION GAP 14 8 - 16 mmol/ L 11/16 7:04 AM [employer] [facility] Not Available Not Available 12/24/2024 17:32:29 [...] - 145 mmol/ L 11/17 11:05 AM [facility] Not Available Not Available 12/24/2024 17:32:29 11/17/19 25 11/17/2024 Renal funct ion 1999 panel - Serum or Plasm a potassium [moles/volum e] in serum or plasma 4.6 mmol/ L low: 3.4mmo l/Lhig h: 5.1mmo l/L POTAS SIUM 4.6 3.4 - 5.1 mmol/ L 11/17 11:05 AM [facility] Not Available Not Available 12/24/2024 17:32:29 11/17/19 25 11/17/2024 Renal funct ion 1999 panel - Serum or Plasm a chloride 98 mmol/ L low: 98mmol /Lhigh : 107mmo l/L CHLOR BURT 98 98 - 107 mmol/ L 11/17 11:05 AM [employer] [facility] Not Available Not Available 12/24/2024 17:32:29 11/17/19 25 11/17/2024 Renal funct ion 1999 panel - Serum or Plasm a carbon dioxide, total [moles/volum e] in serum or plasma 18 mmol/ L low: 22mmol /Lhigh : 29mmol /L low CO2 18 (L) 22 - 29 mmol/ L 11/17 11:05 AM [facility] Not Available Not Available 12/24/2024 17:32:29 11/17/19 25 11/17/2024 Renal funct ion 1999 panel - Serum or Plasm a calcium 9.7 mg/dL low: 8.6mg/ dLhigh : 10.4mg /dL CALCI UM 9.7 8.6 - 10.4 mg/dL 11/17 11:05 AM [facility] Not Available Not Available 12/24/2024 17:32:29 11/17/19 25 11/17/2024 Renal funct ion 1999 panel - Serum or Plasm a BUN 31 mg/dL low: 6mg/dL high: 20mg/d L high BUN 31 (H) 6 - 20 mg/dL 11/17 11:05 AM Endoluminal SciencesAMERICAN HEALTHCARE SYSTEMSFrontalRain Technologies [facility] Not Available Not Available 12/24/2024 17:32:29 11/17/19 25 11/17/2024 Renal funct ion 1999 panel - Serum or Plasm a creatinine [mass/volume ] in serum or plasma 5.92 mg/dL low: 0.67mg /dLhig h: 1.17mg /dL high CREAT ININE 5.92 (H) 0.67 - 1.17 mg/dL 11/17 11:05 AM [facility] Not Available Not Available 12/24/2024 17:32:29 11/17/19 25 11/17/2024 Renal funct ion 1999 panel - Serum or Plasm a glucose [mass/volume ] in serum or plasma 102 mg/dL low: 74mg/d Lhigh: 99mg/d L high GLUCO SE 102 (H) 74 - 99 mg/dL 11/17 11:05 AM [facility] Not Available Not Available 12/24/2024 17:32:29 11/17/19 25 11/17/2024 Renal funct ion 1999 panel - Serum or Plasm a albumin 3 g/dL low: 3.5g/d Lhigh: 5.2g/d L low ALBUM IN 3.0 (L) 3.5 - 5.2 g/dL 11/17 11:05 AM Hunie [facility]ITALFrontal[facility] Technologies [facility] Not Available Not Available 12/24/2024 17:32:29 11/17/19 25 11/17/2024 Renal funct ion 1999 panel - Serum or Plasm a phosphorus 4 mg/dL low: 2.5mg/ dLhigh : 4.5mg/ dL PHOSP HORUS 4.0 2.5 - 4.5 mg/dL 11/17 11:05 AM Hunie [facility] Not Available Not Available 12/24/2024 17:32:29 11/17/19 25 11/17/2024 Renal funct ion 1999 panel - Serum or Plasm a glomerular filtration rate/1.73 sq M.predicted [volume rate/area] in serum, plasma or blood by creatinine-b ased formula (CKD-epi 2020) 10 text: >=60 mL/min /1.73 sq meter low GFR 10 (L) >=60 mL/mi n/1.7 3 sq meter 11/17 11:05 AM Endoluminal SciencesAMERICAN HEALTHCARE SYSTEMSFrontalRain Technologies [facility] Not Available Not Available 12/24/2024 17:32:29 11/17/19 25 11/17/2024 Renal funct ion 1999 panel - Serum or Plasm a anion gap 17 mmol/ L low: 8mmol/ Lhigh: 16mmol /L high ANION GAP 17 (H) 8 - 16 mmol/ L 11/17 11:05 AM [facility] Not Available Not Available 12/24/2024 17:32:29 [...] 4.0 - 9.8 K/uL 11/17 10:37 AM [facility] Not Available Not Available 12/24/2024 17:32:29 11/17/19 25 11/17/2024 CBC W Auto Diffe renti al panel - Blood RBC 2.37 text: 4.50 - 5.40 M/uL low RBC 2.37 (L) 4.50 - 5.40 M/uL 11/17 10:37 AM Endoluminal SciencesAMERICAN HEALTHCARE SYSTEMSFrontalRain Technologies [facility] Not Available Not Available 12/24/2024 17:32:29 11/17/19 25 11/17/2024 CBC W Auto Diffe renti al panel - Blood hemoglobin 8.1 g/dL low: 13.6g/ dLhigh : 16.5g/ dL low HEMOG LOBIN 8.1 (L) 13.6 - 16.5 g/dL 11/17 10:37 AM GOLF CADDY [employer] [facility] Not Available Not Available 12/24/2024 17:32:29 11/17/19 25 11/17/2024 CBC W Auto Diffe renti al panel - Blood hematocrit [volume fraction] of blood by automated count 26.3 % low: 40%hig h: 48% low HEMAT OCRIT 26.3 (L) 40.0 - 48.0 % 11/17 10:37 AM Endoluminal SciencesAMERICAN HEALTHCARE SYSTEMSFrontalRain Technologies [facility] Not Available Not Available 12/24/2024 17:32:29 11/17/19 25 11/17/2024 CBC W Auto Diffe renti al panel - Blood MCV 111 fL low: 82fLhi gh: 99fL high MCV 111.0 (H) 82.0 - 99.0 fL 11/17 10:37 AM Endoluminal SciencesAMERICAN HEALTHCARE SYSTEMSFrontalRain Technologies [facility] Not Available Not Available 12/24/2024 17:32:29 11/17/19 25 11/17/2024 CBC W Auto Diffe renti al panel - Blood MCH 34.2 pg low: 27.2pg high: 32.6pg high MCH 34.2 (H) 27.2 - 32.6 pg 11/17 10:37 AM [facility] Not Available Not Available 12/24/2024 17:32:29 11/17/19 25 11/17/2024 CBC W Auto Diffe renti al panel - Blood MCHC 30.8 g/dL low: 31.5g/ dLhigh : 35.5g/ dL low MCHC 30.8 (L) 31.5 - 35.5 g/dL 11/17 10:37 AM Hunie [facility]ITALFrontal[facility] Not Available Not Available 12/24/2024 17:32:29 11/17/19 25 11/17/2024 CBC W Auto Diffe renti al panel - Blood RDW 15.3 % low: 11.5%h igh: 14.5% high RDW 15.3 (H) 11.5 - 14.5 % 11/17 10:37 AM [employer] [facility] Not Available Not Available 12/24/2024 17:32:29 11/17/19 25 11/17/2024 CBC W Auto Diffe renti al panel - Blood RDW-stdev 61.9 fL low: 37.1fL high: 48.7fL high RDW-S TDEV 61.9 (H) 37.1 - 48.7 fL 11/17 10:37 AM Hunie [facility]ITALFrontal[facility] Not Available Not Available 12/24/2024 17:32:29 11/17/19 25 11/17/2024 CBC W Auto Diffe renti al panel - Blood platelets [#/volume] in blood by automated count 395 K/uL low: 140K/u Lhigh: 350K/u L high PLATE LETS 395 (H) 140 - 350 K/uL 11/17 10:37 AM Hunie [facility] [employer] [facility] Not Available Not Available 12/24/2024 17:32:29 11/17/19 25 11/17/2024 CBC W Auto Diffe renti al panel - Blood MPV 9.7 fL low: 9.3fLh igh: 12.4fL MPV 9.7 9.3 - 12.4 fL 11/17 10:37 AM [facility] Not Available Not Available 12/24/2024 17:32:29 11/17/19 25 11/17/2024 CBC W Auto Diffe renti al panel - Blood neutrophils 78 % NEUTR OPHIL S 78 % 11/17 10:37 AM Hunie [facility] Not Available Not Available 12/24/2024 17:32:29 11/17/19 25 11/17/2024 CBC W Auto Diffe renti al panel - Blood lymphocytes/ 100 leukocytes in blood by automated count 9 % LYMPH OCYTE S 9 % 11/17 10:37 AM [employer] [facility] Not Available Not Available 12/24/2024 17:32:29 11/17/19 25 11/17/2024 CBC W Auto Diffe renti al panel - Blood monocytes 10 % MONOC YTES 10 % 11/17 10:37 AM [employer] [facility] Not Available Not Available 12/24/2024 17:32:29 11/17/19 25 11/17/2024 CBC W Auto Diffe renti al panel - Blood eosinophils 2 % EOSIN OPHIL S 2 % 11/17 10:37 AM [employer] [facility] Not Available Not Available 12/24/2024 17:32:29 11/17/19 25 11/17/2024 CBC W Auto Diffe renti al panel - Blood basophils 1 % BASOP HILS 1 % 11/17 10:37 AM [employer] [facility] Not Available Not Available 12/24/2024 17:32:29 11/17/19 25 11/17/2024 CBC W Auto Diffe renti al panel - Blood immature granulocytes 1 % IMMAT URE GRANU LOCYT ES 1 % 11/17 10:37 AM [employer] [facility] Not Available Not Available 12/24/2024 17:32:29 11/17/19 25 11/17/2024 CBC W Auto Diffe renti al panel - Blood neutrophils [#/volume] in blood by automated count 6.29 K/uL low: 1.9K/u Lhigh: 7K/uL NEUTR OPHIL [place]OL [place] 6.29 1.90 - 7.00 K/uL 11/17 10:37 AM [employer] [facility] Not Available Not Available 12/24/2024 17:32:29 11/17/19 25 11/17/2024 CBC W Auto Diffe renti al panel - Blood lymphocyte absolute 0.7 K/uL low: 0.7K/u Lhigh: 4.5K/u L LYMPH OCYTE [place]OL [place] 0.70 0.70 - 4.50 K/uL 11/17 10:37 AM [employer] [facility] Not Available Not Available 12/24/2024 17:32:29 11/17/19 25 11/17/2024 CBC W Auto Diffe renti al panel - Blood monocyte absolute 0.84 K/uL low: 0.1K/u Lhigh: 1.3K/u L MONOC YTE [place]OL [place] 0.84 0.10 - 1.30 K/uL 11/17 10:37 AM [employer] [facility] Not Available Not Available 12/24/2024 17:32:29 11/17/19 25 11/17/2024 CBC W Auto Diffe renti al panel - Blood eosinophil absolute 0.19 K/uL low: 0K/uLh igh: 0.7K/u L EOSIN OPHIL [place] 0.19 0.00 - 0.70 K/uL 11/17 10:37 AM [facility] [place] Not Available Not Available 12/24/2024 17:32:29 11/17/19 25 11/17/2024 CBC W Auto Diffe renti al panel - Blood basophils absolute 0.05 K/uL low: 0K/uLh igh: 0.2K/u L BASOP HILS ABSOL COQUILLE 0.05 0.00 - 0.20 K/uL 11/17 10:37 AM [employer] [facility] Not Available Not Available 12/24/2024 17:32:29 11/17/19 25 11/17/2024 CBC W Auto Diffe renti al panel - Blood immature granulocytes absolute 0.06 K/uL low: 0K/uLh igh: 0.03K/ uL high IMMAT URE GRANU LOCYT ES ABSOL [place]QUILLE 0.06 (H) 0.00 - 0.03 K/uL 11/17 10:37 AM [employer] [facility] Not Available Not Available 12/24/2024 17:32:29 [...] - 145 mmol/ L 11/18 1:00 PM Endoluminal SciencesAMERICAN HEALTHCARE SYSTEMSFrontalRain Technologies [facility] Not Available Not Available 12/24/2024 17:32:29 11/18/19 25 11/18/2024 Renal funct ion 1999 panel - Serum or Plasm a potassium [moles/volum e] in serum or plasma 4.8 mmol/ L low: 3.4mmo l/Lhig h: 5.1mmo l/L POTAS SIUM 4.8 3.4 - 5.1 mmol/ L 11/18 1:00 PM [employer] [facility] Not Available Not Available 12/24/2024 17:32:29 11/18/19 25 11/18/2024 Renal funct ion 1999 panel - Serum or Plasm a chloride 97 mmol/ L low: 98mmol /Lhigh : 107mmo l/L low CHLOR BURT 97 (L) 98 - 107 mmol/ L 11/18 1:00 PM [employer] [facility] Not Available Not Available 12/24/2024 17:32:29 11/18/19 25 11/18/2024 Renal funct ion 1999 panel - Serum or Plasm a carbon dioxide, total [moles/volum e] in serum or plasma 19 mmol/ L low: 22mmol /Lhigh : 29mmol /L low CO2 19 (L) 22 - 29 mmol/ L 11/18 1:00 PM [employer] [facility]MC[facility] Not Available Not Available 12/24/2024 17:32:29 11/18/19 25 11/18/2024 Renal funct ion 1999 panel - Serum or Plasm a calcium 9.7 mg/dL low: 8.6mg/ dLhigh : 10.4mg /dL CALCI UM 9.7 8.6 - 10.4 mg/dL 11/18 1:00 PM [employer] [facility] Not Available Not Available 12/24/2024 17:32:29 11/18/19 25 11/18/2024 Renal funct ion 1999 panel - Serum or Plasm a BUN 48 mg/dL low: 6mg/dL high: 20mg/d L high BUN 48 (H) 6 - 20 mg/dL 11/18 1:00 PM [facility] [place] Not Available Not Available 12/24/2024 17:32:29 11/18/19 25 11/18/2024 Renal funct ion 1999 panel - Serum or Plasm a creatinine [mass/volume ] in serum or plasma 7.68 mg/dL low: 0.67mg /dLhig h: 1.17mg /dL high CREAT ININE 7.68 (H) 0.67 - 1.17 mg/dL 11/18 1:00 PM [facility] [place] Not Available Not Available 12/24/2024 17:32:29 11/18/19 25 11/18/2024 Renal funct ion 1999 panel - Serum or Plasm a glucose [mass/volume ] in serum or plasma 111 mg/dL low: 74mg/d Lhigh: 99mg/d L high GLUCO SE 111 (H) 74 - 99 mg/dL 11/18 1:00 PM GOLF CADDY [facility] [place] Not Available Not Available 12/24/2024 17:32:29 11/18/19 25 11/18/2024 Renal funct ion 1999 panel - Serum or Plasm a albumin 3.2 g/dL low: 3.5g/d Lhigh: 5.2g/d L low ALBUM IN 3.2 (L) 3.5 - 5.2 g/dL 11/18 1:00 PM GOLF CADDY [facility] [place] Not Available Not Available 12/24/2024 17:32:29 11/18/19 25 11/18/2024 Renal funct ion 1999 panel - Serum or Plasm a phosphorus 4.7 mg/dL low: 2.5mg/ dLhigh : 4.5mg/ dL high PHOSP HORUS 4.7 (H) 2.5 - 4.5 mg/dL 11/18 1:00 PM [employer] [facility] Not Available Not Available 12/24/2024 17:32:29 11/18/19 25 11/18/2024 Renal funct ion 1999 panel - Serum or Plasm a glomerular filtration rate/1.73 sq M.predicted [volume rate/area] in serum, plasma or blood by creatinine-b ased formula (CKD-epi 2020) 7 text: >=60 mL/min /1.73 sq meter low GFR 7 (L) >=60 mL/mi n/1.7 3 sq meter 11/18 1:00 PM [employer] [facility] Not Available Not Available 12/24/2024 17:32:29 11/18/19 25 11/18/2024 Renal funct ion 1999 panel - Serum or Plasm a anion gap 15 mmol/ L low: 8mmol/ Lhigh: 16mmol /L ANION GAP 15 8 - 16 mmol/ L 11/18 1:00 PM [employer] [facility] Not Available Not Available 12/24/2024 17:32:29 11/18/19 [...] 4.0 - 9.8 K/uL 11/19 3:01 PM [employer] [facility] Not Available Not Available 12/24/2024 17:32:30 11/19/19 25 11/19/2024 CBC W Auto Diffe renti al panel - Blood RBC 2.28 text: 4.50 - 5.40 M/uL low RBC 2.28 (L) 4.50 - 5.40 M/uL 11/19 3:01 PM [employer] [facility] Not Available Not Available 12/24/2024 17:32:30 11/19/19 25 11/19/2024 CBC W Auto Diffe renti al panel - Blood hemoglobin 7.9 g/dL low: 13.6g/ dLhigh : 16.5g/ dL low HEMOG LOBIN 7.9 (L) 13.6 - 16.5 g/dL 11/19 3:01 PM [facility] [employer] [facility] Not Available Not Available 12/24/2024 17:32:30 11/19/19 25 11/19/2024 CBC W Auto Diffe renti al panel - Blood hematocrit [volume fraction] of blood by automated count 24.8 % low: 40%hig h: 48% low HEMAT OCRIT 24.8 (L) 40.0 - 48.0 % 11/19 3:01 PM [facility] [employer] [facility] Not Available Not Available 12/24/2024 17:32:30 11/19/19 25 11/19/2024 CBC W Auto Diffe renti al panel - Blood MCV 108.8 fL low: 82fLhi gh: 99fL high MCV 108.8 (H) 82.0 - 99.0 fL 11/19 3:01 PM [facility] [place] Not Available Not Available 12/24/2024 17:32:30 11/19/19 25 11/19/2024 CBC W Auto Diffe renti al panel - Blood MCH 34.6 pg low: 27.2pg high: 32.6pg high MCH 34.6 (H) 27.2 - 32.6 pg 11/19 3:01 PM [facility] [employer] [facility] Not Available Not Available 12/24/2024 17:32:30 11/19/19 25 11/19/2024 CBC W Auto Diffe renti al panel - Blood MCHC 31.9 g/dL low: 31.5g/ dLhigh : 35.5g/ dL MCHC 31.9 31.5 - 35.5 g/dL 11/19 3:01 PM [facility] [employer] [facility] Not Available Not Available 12/24/2024 17:32:30 11/19/19 25 11/19/2024 CBC W Auto Diffe renti al panel - Blood RDW 15.3 % low: 11.5%h igh: 14.5% high RDW 15.3 (H) 11.5 - 14.5 % 11/19 3:01 PM GOLF CADDY [employer] [facility] Not Available Not Available 12/24/2024 17:32:30 11/19/19 25 11/19/2024 CBC W Auto Diffe renti al panel - Blood RDW-stdev 61.2 fL low: 37.1fL high: 48.7fL high RDW-S TDEV 61.2 (H) 37.1 - 48.7 fL 11/19 3:01 PM GOLF CADDY [facility] Not Available Not Available 12/24/2024 17:32:30 11/19/19 25 11/19/2024 CBC W Auto Diffe renti al panel - Blood platelets [#/volume] in blood by automated count 389 K/uL low: 140K/u Lhigh: 350K/u L high PLATE LETS 389 (H) 140 - 350 K/uL 11/19 3:01 PM GOLF CADDY [employer] [facility] Not Available Not Available 12/24/2024 17:32:30 11/19/19 25 11/19/2024 CBC W Auto Diffe renti al panel - Blood MPV 9.5 fL low: 9.3fLh igh: 12.4fL MPV 9.5 9.3 - 12.4 fL 11/19 3:01 PM GOLF CADDY [facility] Not Available Not Available 12/24/2024 17:32:30 11/19/19 25 11/19/2024 CBC W Auto Diffe renti al panel - Blood neutrophils 74 % NEUTR OPHIL S 74 % 11/19 3:01 PM GOLF CADDY [facility] Not Available Not Available 12/24/2024 17:32:30 11/19/19 25 11/19/2024 CBC W Auto Diffe renti al panel - Blood lymphocytes/ 100 leukocytes in blood by automated count 13 % LYMPH OCYTE S 13 % 11/19 3:01 PM GOLF CADDY [facility] [place] Not Available Not Available 12/24/2024 17:32:30 11/19/19 25 11/19/2024 CBC W Auto Diffe renti al panel - Blood monocytes 9 % MONOC YTES 9 % 11/19 3:01 PM [facility] Not Available Not Available 12/24/2024 17:32:30 11/19/19 25 11/19/2024 CBC W Auto Diffe renti al panel - Blood eosinophils 3 % EOSIN OPHIL S 3 % 11/19 3:01 PM [facility] [employer] [facility] Not Available Not Available 12/24/2024 17:32:30 11/19/19 25 11/19/2024 CBC W Auto Diffe renti al panel - Blood basophils 1 % BASOP HILS 1 % 11/19 3:01 PM [facility] Not Available Not Available 12/24/2024 17:32:30 11/19/19 25 11/19/2024 CBC W Auto Diffe renti al panel - Blood immature granulocytes 1 % IMMAT URE GRANU LOCYT ES 1 % 11/19 3:01 PM [facility] [employer] [facility] Not Available Not Available 12/24/2024 17:32:30 11/19/19 25 11/19/2024 CBC W Auto Diffe renti al panel - Blood neutrophils [#/volume] in blood by automated count 5.09 K/uL low: 1.9K/u Lhigh: 7K/uL NEUTR OPHIL ABSOL COQUIL[place] 5.09 1.90 - 7.00 K/uL 11/19 3:01 PM GOLF CADDY [facility] [place] Not Available Not Available 12/24/2024 17:32:30 11/19/19 25 11/19/2024 CBC W Auto Diffe renti al panel - Blood lymphocyte absolute 0.9 K/uL low: 0.7K/u Lhigh: 4.5K/u L LYMPH OCYTE ABSOL [place]QU[place] 0.90 0.70 - 4.50 K/uL 11/19 3:01 PM GOLF CADDY [facility] [place] Not Available Not Available 12/24/2024 17:32:30 11/19/19 25 11/19/2024 CBC W Auto Diffe renti al panel - Blood monocyte absolute 0.6 K/uL low: 0.1K/u Lhigh: 1.3K/u L MONOC YTE ABSOL [place]QUIL[place] 0.60 0.10 - 1.30 K/uL 11/19 3:01 PM [facility]OL[facility] CADDY [facility] [place] Not Available Not Available 12/24/2024 17:32:30 11/19/19 25 11/19/2024 CBC W Auto Diffe renti al panel - Blood eosinophil absolute 0.19 K/uL low: 0K/uLh igh: 0.7K/u L EOSIN OPHIL ABSOL [place]QU[place] 0.19 0.00 - 0.70 K/uL 11/19 3:01 PM [facility] [employer] [facility] Not Available Not Available 12/24/2024 17:32:30 11/19/19 25 11/19/2024 CBC W Auto Diffe renti al panel - Blood basophils absolute 0.05 K/uL low: 0K/uLh igh: 0.2K/u L BASOP HILS ABSOL COQUIL[place] 0.05 0.00 - 0.20 K/uL 11/19 3:01 PM [facility] [employer] [facility] Not Available Not Available 12/24/2024 17:32:30 11/19/19 25 11/19/2024 CBC W Auto Diffe renti al panel - Blood immature granulocytes absolute 0.04 K/uL low: 0K/uLh igh: 0.03K/ uL high IMMAT URE GRANU LOCYT ES ABSOL [place] 0.04 (H) 0.00 - 0.03 K/uL 11/19 3:01 PM [facility] [employer] [facility] Not Available Not Available 12/24/2024 17:32:30 [...] - 145 mmol/ L 11/19 3:59 PM GOLF CADDY [employer] [facility] Not Available Not Available 12/24/2024 17:32:30 11/19/19 25 11/19/2024 Basic metab olic 1999 panel - Serum or Plasm a potassium [moles/volum e] in serum or plasma 4.8 mmol/ L low: 3.4mmo l/Lhig h: 5.1mmo l/L POTAS SIUM 4.8 3.4 - 5.1 mmol/ L 11/19 3:59 PM GOLF CADDY Race YourselfAMERICAN HEALTHCARE SYSTEMSFrontalRain Technologies [facility] Not Available Not Available 12/24/2024 17:32:30 11/19/19 25 11/19/2024 Basic metab olic 1999 panel - Serum or Plasm a chloride 103 mmol/ L low: 98mmol /Lhigh : 107mmo l/L CHLOR BURT 103 98 - 107 mmol/ L 11/19 3:59 PM GOLF CADDY [facility] Not Available Not Available 12/24/2024 17:32:30 11/19/19 25 11/19/2024 Basic metab olic 1999 panel - Serum or Plasm a carbon dioxide, total [moles/volum e] in serum or plasma 23 mmol/ L low: 22mmol /Lhigh : 29mmol /L CO2 23 22 - 29 mmol/ L 11/19 3:59 PM GOLF CADDY [facility] Not Available Not Available 12/24/2024 17:32:30 11/19/19 25 11/19/2024 Basic metab olic 2000 panel - Serum or Plasm a calcium 9.4 mg/dL low: 8.6mg/ dLhigh : 10.4mg /dL CALCI UM 9.4 8.6 - 10.4 mg/dL 11/19 3:59 PM GOLF CADDY [facility] Not Available Not Available 12/24/2024 17:32:30 11/19/19 25 11/19/2024 Basic metab olic 1999 panel - Serum or Plasm a BUN 31 mg/dL low: 6mg/dL high: 20mg/d L high BUN 31 (H) 6 - 20 mg/dL 11/19 3:59 PM GOLF CADDY [employer] [facility] Not Available Not Available 12/24/2024 17:32:30 11/19/19 25 11/19/2024 Basic metab olic 1999 panel - Serum or Plasm a creatinine [mass/volume ] in serum or plasma 6.07 mg/dL low: 0.67mg /dLhig h: 1.17mg /dL high CREAT ININE 6.07 (H) 0.67 - 1.17 mg/dL 11/19 3:59 PM [employer] [facility] Not Available Not Available 12/24/2024 17:32:30 11/19/19 25 11/19/2024 Basic metab olic 1999 panel - Serum or Plasm a glucose [mass/volume ] in serum or plasma 104 mg/dL low: 74mg/d Lhigh: 99mg/d L high GLUCO SE 104 (H) 74 - 99 mg/dL 11/19 3:59 PM [facility] Not Available Not Available 12/24/2024 17:32:30 11/19/19 25 11/19/2024 Basic metab olic 2000 panel - Serum or Plasm a glomerular filtration rate/1.73 sq M.predicted [volume rate/area] in serum, plasma or blood by creatinine-b ased formula (CKD-epi 2020) 10 text: >=60 mL/min /1.73 sq meter low GFR 10 (L) >=60 mL/mi n/1.7 3 sq meter 11/19 3:59 PM GOLF CADDY [facility] Not Available Not Available 12/24/2024 17:32:30 11/19/19 25 11/19/2024 Basic metab olic 2000 panel - Serum or Plasm a anion gap 10 mmol/ L low: 8mmol/ Lhigh: 16mmol /L ANION GAP 10 8 - 16 mmol/ L 11/19 3:59 PM GOLF CADDY [employer] [facility] Not Available Not Available 12/24/2024 17:32:30 [...] - 145 mmol/ L 11/19 4:11 AM [employer] [facility] Not Available Not Available 12/24/2024 17:32:30 11/19/19 25 11/19/2024 Renal funct ion 1999 panel - Serum or Plasm a potassium [moles/volum e] in serum or plasma 5.4 mmol/ L low: 3.4mmo l/Lhig h: 5.1mmo l/L high POTAS SIUM 5.4 (H) 3.4 - 5.1 mmol/ L 11/19 4:11 AM [employer] [facility] Not Available Not Available 12/24/2024 17:32:30 11/19/19 25 11/19/2024 Renal funct ion 1999 panel - Serum or Plasm a chloride 100 mmol/ L low: 98mmol /Lhigh : 107mmo l/L CHLOR BURT 100 98 - 107 mmol/ L 11/19 4:11 AM [employer] [facility] Not Available Not Available 12/24/2024 17:32:30 11/19/19 25 11/19/2024 Renal funct ion 1999 panel - Serum or Plasm a carbon dioxide, total [moles/volum e] in serum or plasma 19 mmol/ L low: 22mmol /Lhigh : 29mmol /L low CO2 19 (L) 22 - 29 mmol/ L 11/19 4:11 AM [facility] Not Available Not Available 12/24/2024 17:32:30 11/19/19 25 11/19/2024 Renal funct ion 1999 panel - Serum or Plasm a calcium 9.5 mg/dL low: 8.6mg/ dLhigh : 10.4mg /dL CALCI UM 9.5 8.6 - 10.4 mg/dL 11/19 4:11 AM [employer] [facility] Not Available Not Available 12/24/2024 17:32:30 11/19/19 25 11/19/2024 Renal funct ion 1999 panel - Serum or Plasm a BUN 58 mg/dL low: 6mg/dL high: 20mg/d L high BUN 58 (H) 6 - 20 mg/dL 11/19 4:11 AM [employer] [facility] Not Available Not Available 12/24/2024 17:32:30 11/19/19 25 11/19/2024 Renal funct ion 1999 panel - Serum or Plasm a creatinine [mass/volume ] in serum or plasma 9.54 mg/dL low: 0.67mg /dLhig h: 1.17mg /dL high CREAT ININE 9.54 (H) 0.67 - 1.17 mg/dL 11/19 4:11 AM [employer] [facility] Not Available Not Available 12/24/2024 17:32:30 11/19/19 25 11/19/2024 Renal funct ion 1999 panel - Serum or Plasm a glucose [mass/volume ] in serum or plasma 112 mg/dL low: 74mg/d Lhigh: 99mg/d L high GLUCO SE 112 (H) 74 - 99 mg/dL 11/19 4:11 AM [employer] [facility] Not Available Not Available 12/24/2024 17:32:30 11/19/19 25 11/19/2024 Renal funct ion 1999 panel - Serum or Plasm a albumin 3 g/dL low: 3.5g/d Lhigh: 5.2g/d L low ALBUM IN 3.0 (L) 3.5 - 5.2 g/dL 11/19 4:11 AM [employer] [facility] Not Available Not Available 12/24/2024 17:32:30 11/19/19 25 11/19/2024 Renal funct ion 1999 panel - Serum or Plasm a phosphorus 4.8 mg/dL low: 2.5mg/ dLhigh : 4.5mg/ dL high PHOSP HORUS 4.8 (H) 2.5 - 4.5 mg/dL 11/19 4:11 AM [employer] [facility] Not Available Not Available 12/24/2024 17:32:30 11/19/1911/19/2024 Renal funct ion 1999 panel - Serum or Plasm a glomerular filtration rate/1.73 sq M.predicted [volume rate/area] in serum, plasma or blood by creatinine-b ased formula (CKD-epi 2020) 6 text: >=60 mL/min /1.73 sq meter low GFR 6 (L) >=60 mL/mi n/1.7 3 sq meter 11/19 4:11 AM [employer] [facility] Not Available Not Available 12/24/2024 17:32:30 11/19/1911/19/2024 Renal funct ion 2000 panel - Serum or Plasm a anion gap 10 mmol/ L low: 8mmol/ Lhigh: 16mmol /L ANION GAP 10 8 - 16 mmol/ L 11/19 4:11 AM [employer] [facility] Not Available Not Available 12/24/2024 17:32:30 [...] 4.0 - 9.8 K/uL 11/19 3:41 AM [employer] [facility] Not Available Not Available 12/24/2024 17:32:30 11/19/19 25 11/19/2024 CBC W Auto Diffe renti al panel - Blood RBC 2.17 text: 4.50 - 5.40 M/uL low RBC 2.17 (L) 4.50 - 5.40 M/uL 11/19 3:41 AM [employer] [facility] Not Available Not Available 12/24/2024 17:32:30 11/19/19 25 11/19/2024 CBC W Auto Diffe renti al panel - Blood hemoglobin 7.3 g/dL low: 13.6g/ dLhigh : 16.5g/ dL low HEMOG LOBIN 7.3 (L) 13.6 - 16.5 g/dL 11/19 3:41 AM [employer] [facility] Not Available Not Available 12/24/2024 17:32:30 11/19/1911/19/2024 CBC W Auto Diffe renti al panel - Blood hematocrit [volume fraction] of blood by automated count 23.3 % low: 40%hig h: 48% low HEMAT OCRIT 23.3 (L) 40.0 - 48.0 % 11/19 3:41 AM [employer] [facility] Not Available Not Available 12/24/2024 17:32:30 11/19/19 25 11/19/2024 CBC W Auto Diffe renti al panel - Blood MCV 107.4 fL low: 82fLhi gh: 99fL high MCV 107.4 (H) 82.0 - 99.0 fL 11/19 3:41 AM [employer] [facility] Not Available Not Available 12/24/2024 17:32:30 11/19/19 25 11/19/2024 CBC W Auto Diffe renti al panel - Blood MCH 33.6 pg low: 27.2pg high: 32.6pg high MCH 33.6 (H) 27.2 - 32.6 pg 11/19 3:41 AM [facility] Not Available Not Available 12/24/2024 17:32:30 11/19/19 25 11/19/2024 CBC W Auto Diffe renti al panel - Blood MCHC 31.3 g/dL low: 31.5g/ dLhigh : 35.5g/ dL low MCHC 31.3 (L) 31.5 - 35.5 g/dL 11/19 3:41 AM [employer] [facility] Not Available Not Available 12/24/2024 17:32:30 11/19/19 25 11/19/2024 CBC W Auto Diffe renti al panel - Blood RDW 15.3 % low: 11.5%h igh: 14.5% high RDW 15.3 (H) 11.5 - 14.5 % 11/19 3:41 AM [employer] [facility] Not Available Not Available 12/24/2024 17:32:30 11/19/19 25 11/19/2024 CBC W Auto Diffe renti al panel - Blood RDW-stdev 60.8 fL low: 37.1fL high: 48.7fL high RDW-S TDEV 60.8 (H) 37.1 - 48.7 fL 11/19 3:41 AM [employer] [facility] Not Available Not Available 12/24/2024 17:32:30 11/19/19 25 11/19/2024 CBC W Auto Diffe renti al panel - Blood platelets [#/volume] in blood by automated count 385 K/uL low: 140K/u Lhigh: 350K/u L high PLATE LETS 385 (H) 140 - 350 K/uL 11/19 3:41 AM [employer] [facility] Not Available Not Available 12/24/2024 17:32:30 11/19/19 25 11/19/2024 CBC W Auto Diffe renti al panel - Blood MPV 9.7 fL low: 9.3fLh igh: 12.4fL MPV 9.7 9.3 - 12.4 fL 11/19 3:41 AM [employer] [facility] Not Available Not Available 12/24/2024 17:32:30 11/19/19 25 11/19/2024 CBC W Auto Diffe renti al panel - Blood neutrophils 77 % NEUTR OPHIL S 77 % 11/19 3:41 AM NICHOL KENNEDYYoovi [employer] [facility] Not Available Not Available 12/24/2024 17:32:30 11/19/19 25 11/19/2024 CBC W Auto Diffe renti al panel - Blood lymphocytes/ 100 leukocytes in blood by automated count 11 % LYMPH OCYTE S 11 % 11/19 3:41 AM [employer] Systems[employer] [facility] Not Available Not Available 12/24/2024 17:32:30 11/19/19 25 11/19/2024 CBC W Auto Diffe renti al panel - Blood monocytes 9 % MONOC YTES 9 % 11/19 3:41 AM [employer] Systems[employer] [facility] Not Available Not Available 12/24/2024 17:32:30 11/19/19 25 11/19/2024 CBC W Auto Diffe renti al panel - Blood eosinophils 3 % EOSIN OPHIL S 3 % 11/19 3:41 AM [employer] Systems[employer] [facility] Not Available Not Available 12/24/2024 17:32:30 11/19/19 25 11/19/2024 CBC W Auto Diffe renti al panel - Blood basophils 1 % BASOP HILS 1 % 11/19 3:41 AM [facility] [place] Not Available Not Available 12/24/2024 17:32:30 11/19/19 25 11/19/2024 CBC W Auto Diffe renti al panel - Blood immature granulocytes 1 % IMMAT URE GRANU LOCYT ES 1 % 11/19 3:41 AM [employer] [facility] Not Available Not Available 12/24/2024 17:32:30 11/19/19 25 11/19/2024 CBC W Auto Diffe renti al panel - Blood neutrophils [#/volume] in blood by automated count 7.24 K/uL low: 1.9K/u Lhigh: 7K/uL high NEUTR OPHIL ABSOL COQUILLE 7.24 (H) 1.90 - 7.00 K/uL 11/19 3:41 AM [employer] [facility] Not Available Not Available 12/24/2024 17:32:30 11/19/19 25 11/19/2024 CBC W Auto Diffe renti al panel - Blood lymphocyte absolute 1 K/uL low: 0.7K/u Lhigh: 4.5K/u L LYMPH OCYTE ABSOL [place] 1.00 0.70 - 4.50 K/uL 11/19 3:41 AM [employer] [facility] Not Available Not Available 12/24/2024 17:32:30 11/19/1911/19/2024 CBC W Auto Diffe renti al panel - Blood monocyte absolute 0.81 K/uL low: 0.1K/u Lhigh: 1.3K/u L MONOC YTE ABSOL [place] 0.81 0.10 - 1.30 K/uL 11/19 3:41 AM [employer] [facility] Not Available Not Available 12/24/2024 17:32:30 11/19/19 25 11/19/2024 CBC W Auto Diffe renti al panel - Blood eosinophil absolute 0.25 K/uL low: 0K/uLh igh: 0.7K/u L EOSIN OPHIL ABSOL [place] 0.25 0.00 - 0.70 K/uL 11/19 3:41 AM [employer] [facility] Not Available Not Available 12/24/2024 17:32:30 11/19/19 25 11/19/2024 CBC W Auto Diffe renti al panel - Blood basophils absolute 0.07 K/uL low: 0K/uLh igh: 0.2K/u L BASOP HILS ABSOL [place] 0.07 0.00 - 0.20 K/uL 11/19 3:41 AM [employer] [facility] Not Available Not Available 12/24/2024 17:32:30 11/19/19 25 11/19/2024 CBC W Auto Diffe renti al panel - Blood immature granulocytes absolute 0.06 K/uL low: 0K/uLh igh: 0.03K/ uL high IMMAT URE GRANU LOCYT ES ABSOL [place] 0.06 (H) 0.00 - 0.03 K/uL 11/19 3:41 AM [employer] [facility] Not Available Not Available 12/24/2024 17:32:30 [...] - 145 mmol/ L 11/20 4:43 AM [employer] [facility] Not Available Not Available 12/24/2024 17:32:30 11/20/19 25 11/20/2024 Renal funct ion 1999 panel - Serum or Plasm a potassium [moles/volum e] in serum or plasma 5.1 mmol/ L low: 3.4mmo l/Lhig h: 5.1mmo l/L POTAS SIUM 5.1 3.4 - 5.1 mmol/ L 11/20 4:43 AM [facility] [place] [facility] Not Available 12/24/2024 17:32:30 11/20/19 25 11/20/2024 Renal funct ion 1999 panel - Serum or Plasm a chloride 100 mmol/ L low: 98mmol /Lhigh : 107mmo l/L [place]URT 100 98 - 107 mmol/ L 11/20 4:43 AM [employer] [facility] Not Available Not Available 12/24/2024 17:32:30 11/20/19 25 11/20/2024 Renal funct ion 1999 panel - Serum or Plasm a carbon dioxide, total [moles/volum e] in serum or plasma 21 mmol/ L low: 22mmol /Lhigh : 29mmol /L low CO2 21 (L) 22 - 29 mmol/ L 11/20 4:43 AM [employer] [facility] Not Available Not Available 12/24/2024 17:32:30 11/20/19 25 11/20/2024 Renal funct ion 1999 panel - Serum or Plasm a calcium 9.4 mg/dL low: 8.6mg/ dLhigh : 10.4mg /dL CALCI UM 9.4 8.6 - 10.4 mg/dL 11/20 4:43 AM [employer] [facility] Not Available Not Available 12/24/2024 17:32:30 11/20/19 25 11/20/2024 Renal funct ion 1999 panel - Serum or Plasm a BUN 44 mg/dL low: 6mg/dL high: 20mg/d L high BUN 44 (H) 6 - 20 mg/dL 11/20 4:43 AM [employer] [facility] [facility] Not Available Not Available 12/24/2024 17:32:30 11/20/19 25 11/20/2024 Renal funct ion 1999 panel - Serum or Plasm a creatinine [mass/volume ] in serum or plasma 6.32 mg/dL low: 0.67mg /dLhig h: 1.17mg /dL high CREAT ININE 6.32 (H) 0.67 - 1.17 mg/dL 11/20 4:43 AM [employer] [facility] Not Available Not Available 12/24/2024 17:32:30 11/20/19 25 11/20/2024 Renal funct ion 1999 panel - Serum or Plasm a glucose [mass/volume ] in serum or plasma 104 mg/dL low: 74mg/d Lhigh: 99mg/d L high GLUCO SE 104 (H) 74 - 99 mg/dL 11/20 4:43 AM [employer] [facility] Not Available Not Available 12/24/2024 17:32:30 11/20/19 25 11/20/2024 Renal funct ion 1999 panel - Serum or Plasm a albumin 3.1 g/dL low: 3.5g/d Lhigh: 5.2g/d L low ALBUM IN 3.1 (L) 3.5 - 5.2 g/dL 11/20 4:43 AM [employer] [facility] Not Available Not Available 12/24/2024 17:32:30 11/20/19 25 11/20/2024 Renal funct ion 1999 panel - Serum or Plasm a phosphorus 3.8 mg/dL low: 2.5mg/ dLhigh : 4.5mg/ dL PHOSP HORUS 3.8 2.5 - 4.5 mg/dL 11/20 4:43 AM [employer] [facility] Not Available Not Available 12/24/2024 17:32:30 11/20/19 25 11/20/2024 Renal funct ion 1999 panel - Serum or Plasm a glomerular filtration rate/1.73 sq M.predicted [volume rate/area] in serum, plasma or blood by creatinine-b ased formula (CKD-epi 2020) 9 text: >=60 mL/min /1.73 sq meter low GFR 9 (L) >=60 mL/mi n/1.7 3 sq meter 11/20 4:43 AM [employer] [facility] Not Available Not Available 12/24/2024 17:32:30 11/20/19 25 11/20/2024 Renal funct ion 1999 panel - Serum or Plasm a anion gap 12 mmol/ L low: 8mmol/ Lhigh: 16mmol /L ANION GAP 12 8 - 16 mmol/ L 11/20 4:43 AM [employer] [facility] Not Available Not Available 12/24/2024 17:32:30 11/20/19 [...] 4.0 - 9.8 K/uL 11/20 4:22 AM [employer] [facility] Not Available Not Available 12/24/2024 17:32:30 11/20/19 25 11/20/2024 CBC W Auto Diffe renti al panel - Blood RBC 2.34 text: 4.50 - 5.40 M/uL low RBC 2.34 (L) 4.50 - 5.40 M/uL 11/20 4:22 AM [employer] [facility] Not Available Not Available 12/24/2024 17:32:30 11/20/1911/20/2024 CBC W Auto Diffe renti al panel - Blood hemoglobin 8 g/dL low: 13.6g/ dLhigh : 16.5g/ dL low HEMOG LOBIN 8.0 (L) 13.6 - 16.5 g/dL 11/20 4:22 AM [employer] [facility] Not Available Not Available 12/24/2024 17:32:30 11/20/19 25 11/20/2024 CBC W Auto Diffe renti al panel - Blood hematocrit [volume fraction] of blood by automated count 25.4 % low: 40%hig h: 48% low HEMAT OCRIT 25.4 (L) 40.0 - 48.0 % 11/20 4:22 AM [employer] [facility] Not Available Not Available 12/24/2024 17:32:30 11/20/19 25 11/20/2024 CBC W Auto Diffe renti al panel - Blood MCV 108.5 fL low: 82fLhi gh: 99fL high MCV 108.5 (H) 82.0 - 99.0 fL 11/20 4:22 AM [employer] [facility] Not Available Not Available 12/24/2024 17:32:30 11/20/19 25 11/20/2024 CBC W Auto Diffe renti al panel - Blood MCH 34.2 pg low: 27.2pg high: 32.6pg high MCH 34.2 (H) 27.2 - 32.6 pg 02/05 /2025 4:22 AM [employer] [facility] Not Available Not Available 12/24/2024 17:32:30 11/20/19 25 11/20/2024 CBC W Auto Diffe renti al panel - Blood MCHC 31.5 g/dL low: 31.5g/ dLhigh : 35.5g/ dL MCHC 31.5 31.5 - 35.5 g/dL 11/20 4:22 AM [facility] [place] Not Available 12/24/2024 17:32:30 11/20/19 25 11/20/2024 CBC W Auto Diffe renti al panel - Blood RDW 15.2 % low: 11.5%h igh: 14.5% high RDW 15.2 (H) 11.5 - 14.5 % 11/20 4:22 AM [facility] [place] Not Available Not Available 12/24/2024 17:32:30 11/20/19 25 11/20/2024 CBC W Auto Diffe renti al panel - Blood RDW-stdev 60.9 fL low: 37.1fL high: 48.7fL high RDW-S TDEV 60.9 (H) 37.1 - 48.7 fL 11/20 4:22 AM [facility] [place] Not Available Not Available 12/24/2024 17:32:30 11/20/19 25 11/20/2024 CBC W Auto Diffe renti al panel - Blood platelets [#/volume] in blood by automated count 395 K/uL low: 140K/u Lhigh: 350K/u L high PLATE LETS 395 (H) 140 - 350 K/uL 11/20 4:22 AM [employer] [facility] Not Available Not Available 12/24/2024 17:32:30 11/20/19 25 11/20/2024 CBC W Auto Diffe renti al panel - Blood MPV 9.5 fL low: 9.3fLh igh: 12.4fL MPV 9.5 9.3 - 12.4 fL 11/20 4:22 AM [employer] [facility] Not Available Not Available 12/24/2024 17:32:30 11/20/19 25 11/20/2024 CBC W Auto Diffe renti al panel - Blood neutrophils 78 % NEUTR OPHIL S 78 % 11/20 4:22 AM [facility] [place] Not Available Not Available 12/24/2024 17:32:30 11/20/19 25 11/20/2024 CBC W Auto Diffe renti al panel - Blood lymphocytes/ 100 leukocytes in blood by automated count 10 % LYMPH OCYTE S 10 % 11/20 4:22 AM [employer] [facility] Not Available Not Available 12/24/2024 17:32:30 11/20/19 25 11/20/2024 CBC W Auto Diffe renti al panel - Blood monocytes 9 % MONOC YTES 9 % 11/20 4:22 AM [facility] [place] Not Available Not Available 12/24/2024 17:32:30 11/20/19 25 11/20/2024 CBC W Auto Diffe renti al panel - Blood eosinophils 2 % EOSIN OPHIL S 2 % 11/20 4:22 AM GOLF CADDY [facility] [place] Not Available Not Available 12/24/2024 17:32:30 11/20/19 25 11/20/2024 CBC W Auto Diffe renti al panel - Blood basophils 1 % BASOP HILS 1 % 11/20 4:22 AM [employer] [facility] Not Available Not Available 12/24/2024 17:32:30 11/20/19 25 11/20/2024 CBC W Auto Diffe renti al panel - Blood immature granulocytes 1 % IMMAT URE GRANU LOCYT ES 1 % 11/20 4:22 AM [employer] [facility] Not Available Not Available 12/24/2024 17:32:30 11/20/19 25 11/20/2024 CBC W Auto Diffe renti al panel - Blood neutrophils [#/volume] in blood by automated count 6.23 K/uL low: 1.9K/u Lhigh: 7K/uL NEUTR OPHIL ABSOL [place] 6.23 1.90 - 7.00 K/uL 11/20 4:22 AM [employer] [facility] Not Available Not Available 12/24/2024 17:32:30 11/20/19 25 11/20/2024 CBC W Auto Diffe renti al panel - Blood lymphocyte absolute 0.79 K/uL low: 0.7K/u Lhigh: 4.5K/u L LYMPH OCYTE ABSOL [place] 0.79 0.70 - 4.50 K/uL 11/20 4:22 AM [employer] [facility] Not Available Not Available 12/24/2024 17:32:30 11/20/19 25 11/20/2024 CBC W Auto Diffe renti al panel - Blood monocyte absolute 0.73 K/uL low: 0.1K/u Lhigh: 1.3K/u L MONOC YTE ABSOL [place] 0.73 0.10 - 1.30 K/uL 11/20 4:22 AM [employer] [facility] Not Available Not Available 12/24/2024 17:32:30 11/20/19 25 11/20/2024 CBC W Auto Diffe renti al panel - Blood eosinophil absolute 0.17 K/uL low: 0K/uLh igh: 0.7K/u L EOSIN OPHIL ABSOL [place] 0.17 0.00 - 0.70 K/uL 11/20 4:22 AM [employer] [facility] Not Available Not Available 12/24/2024 17:32:30 11/20/19 25 11/20/2024 CBC W Auto Diffe renti al panel - Blood basophils absolute 0.06 K/uL low: 0K/uLh igh: 0.2K/u L BASOP HILS ABSOL [place] 0.06 0.00 - 0.20 K/uL 11/20 4:22 AM [employer] [facility] Not Available Not Available 12/24/2024 17:32:30 11/20/19 25 11/20/2024 CBC W Auto Diffe renti al panel - Blood immature granulocytes absolute 0.06 K/uL low: 0K/uLh igh: 0.03K/ uL high IMMAT URE GRANU LOCYT ES ABSOL [place] 0.06 (H) 0.00 - 0.03 K/uL 11/20 4:22 AM [employer] [facility] Not Available Not Available 12/24/2024 17:32:30 11/20/19 [...] - 145 mmol/ L 11/21 6:44 AM GOLF CADDY [employer] [facility] Not Available Not Available 12/24/2024 17:32:30 11/21/19 25 11/21/2024 Basic metab olic 1999 panel - Serum or Plasm a potassium [moles/volum e] in serum or plasma 5.6 mmol/ L low: 3.4mmo l/Lhig h: 5.1mmo l/L high POTAS SIUM 5.6 (H) 3.4 - 5.1 mmol/ L 11/21 6:44 AM [employer] [facility] Not Available Not Available 12/24/2024 17:32:30 11/21/19 25 11/21/2024 Basic metab olic 1999 panel - Serum or Plasm a chloride 103 mmol/ L low: 98mmol /Lhigh : 107mmo l/L CHLOR BURT 103 98 - 107 mmol/ L 11/21 6:44 AM [employer] [facility] Not Available Not Available 12/24/2024 17:32:30 11/21/19 25 11/21/2024 Basic metab olic 1999 panel - Serum or Plasm a carbon dioxide, total [moles/volum e] in serum or plasma 17 mmol/ L low: 22mmol /Lhigh : 29mmol /L low CO2 17 (L) 22 - 29 mmol/ L 11/21 6:44 AM Endoluminal SciencesAMERICAN HEALTHCARE SYSTEMSFrontalRain Technologies [facility] Not Available Not Available 12/24/2024 17:32:30 11/21/19 25 11/21/2024 Basic metab olic 1999 panel - Serum or Plasm a calcium 9.5 mg/dL low: 8.6mg/ dLhigh : 10.4mg /dL CALCI UM 9.5 8.6 - 10.4 mg/dL 11/21 6:44 AM [facility] Not [facility] Not Available 12/24/2024 17:32:30 11/21/19 25 11/21/2024 Basic metab olic 1999 panel - Serum or Plasm a BUN 51 mg/dL low: 6mg/dL high: 20mg/d L high BUN 51 (H) 6 - 20 mg/dL 11/21 6:44 AM [employer] [facility] Not Available Not Available 12/24/2024 17:32:30 11/21/19 25 11/21/2024 Basic metab olic 1999 panel - Serum or Plasm a creatinine [mass/volume ] in serum or plasma 7.46 mg/dL low: 0.67mg /dLhig h: 1.17mg /dL high CREAT ININE 7.46 (H) 0.67 - 1.17 mg/dL 11/21 6:44 AM [employer] [facility] Not Available Not Available 12/24/2024 17:32:30 11/21/19 25 11/21/2024 Basic metab olic 1999 panel - Serum or Plasm a glucose [mass/volume ] in serum or plasma 174 mg/dL low: 74mg/d Lhigh: 99mg/d L high GLUCO SE 174 (H) 74 - 99 mg/dL 11/21 6:44 AM Endoluminal SciencesAMERICAN HEALTHCARE SYSTEMSFrontalRain Technologies [facility] Not Available Not Available 12/24/2024 17:32:30 11/21/19 25 11/21/2024 Basic metab olic 2000 panel - Serum or Plasm a glomerular filtration rate/1.73 sq M.predicted [volume rate/area] in serum, plasma or blood by creatinine-b ased formula (CKD-epi 2020) 8 text: >=60 mL/min /1.73 sq meter low GFR 8 (L) >=60 mL/mi n/1.7 3 sq meter 11/21 6:44 AM [facility] Not Available Not Available 12/24/2024 17:32:30 11/21/19 25 11/21/2024 Basic metab olic 2000 panel - Serum or Plasm a anion gap 10 mmol/ L low: 8mmol/ Lhigh: 16mmol /L ANION GAP 10 8 - 16 mmol/ L 11/21 6:44 AM [facility] Not Available Not Available 12/24/2024 17:32:30 [...] 4.0 - 9.8 K/uL 11/21 3:10 AM [facility] Not Available Not Available 12/24/2024 17:32:30 11/21/19 25 11/21/2024 CBC W Auto Diffe renti al panel - Blood RBC 2.25 text: 4.50 - 5.40 M/uL low RBC 2.25 (L) 4.50 - 5.40 M/uL 11/21 3:10 AM [facility] Not Available Not Available 12/24/2024 17:32:30 11/21/19 25 11/21/2024 CBC W Auto Diffe renti al panel - Blood hemoglobin 7.5 g/dL low: 13.6g/ dLhigh : 16.5g/ dL low HEMOG LOBIN 7.5 (L) 13.6 - 16.5 g/dL 11/21 3:10 AM [facility] Not Available Not Available 12/24/2024 17:32:30 11/21/19 25 11/21/2024 CBC W Auto Diffe renti al panel - Blood hematocrit [volume fraction] of blood by automated count 23.8 % low: 40%hig h: 48% low HEMAT OCRIT 23.8 (L) 40.0 - 48.0 % 11/21 3:10 AM [employer] [facility] Not Available Not Available 12/24/2024 17:32:30 11/21/19 25 11/21/2024 CBC W Auto Diffe renti al panel - Blood MCV 105.8 fL low: 82fLhi gh: 99fL high MCV 105.8 (H) 82.0 - 99.0 fL 11/21 3:10 AM [employer] [facility] Not Available Not Available 12/24/2024 17:32:30 11/21/19 25 11/21/2024 CBC W Auto Diffe renti al panel - Blood MCH 33.3 pg low: 27.2pg high: 32.6pg high MCH 33.3 (H) 27.2 - 32.6 pg 11/21 3:10 AM [facility] Not Available Not Available 12/24/2024 17:32:30 11/21/19 25 11/21/2024 CBC W Auto Diffe renti al panel - Blood MCHC 31.5 g/dL low: 31.5g/ dLhigh : 35.5g/ dL MCHC 31.5 31.5 - 35.5 g/dL 11/21 3:10 AM [employer] [facility] Not Available Not Available 12/24/2024 17:32:30 11/21/19 25 11/21/2024 CBC W Auto Diffe renti al panel - Blood RDW 17.8 % low: 11.5%h igh: 14.5% high RDW 17.8 (H) 11.5 - 14.5 % 11/21 3:10 AM [employer] [facility] Not Available Not Available 12/24/2024 17:32:30 11/21/19 25 11/21/2024 CBC W Auto Diffe renti al panel - Blood RDW-stdev 70.4 fL low: 37.1fL high: 48.7fL high RDW-S TDEV 70.4 (H) 37.1 - 48.7 fL 11/21 3:10 AM [employer] [facility] Not Available Not Available 12/24/2024 17:32:30 11/21/19 25 11/21/2024 CBC W Auto Diffe renti al panel - Blood platelets [#/volume] in blood by automated count 370 K/uL low: 140K/u Lhigh: 350K/u L high PLATE LETS 370 (H) 140 - 350 K/uL 11/21 3:10 AM [employer] [facility] Not Available Not Available 12/24/2024 17:32:30 11/21/19 25 11/21/2024 CBC W Auto Diffe renti al panel - Blood MPV 9.9 fL low: 9.3fLh igh: 12.4fL MPV 9.9 9.3 - 12.4 fL 11/21 3:10 AM [employer] [facility] Not Available Not Available 12/24/2024 17:32:30 11/21/19 25 11/21/2024 CBC W Auto Diffe renti al panel - Blood neutrophils 81 % NEUTR OPHIL S 81 % 11/21 3:10 AM [employer] [facility] Not Available Not Available 12/24/2024 17:32:30 11/21/19 25 11/21/2024 CBC W Auto Diffe renti al panel - Blood lymphocytes/ 100 leukocytes in blood by automated count 8 % LYMPH OCYTE S 8 % 11/21 3:10 AM [employer] [facility] Not Available Not Available 12/24/2024 17:32:30 11/21/19 25 11/21/2024 CBC W Auto Diffe renti al panel - Blood monocytes 8 % MONOC YTES 8 % 11/21 3:10 AM [employer] [facility] Not Available Not Available 12/24/2024 17:32:30 11/21/19 25 11/21/2024 CBC W Auto Diffe renti al panel - Blood eosinophils 2 % EOSIN OPHIL S 2 % 11/21 3:10 AM [employer] [facility] Not Available Not Available 12/24/2024 17:32:30 11/21/19 25 11/21/2024 CBC W Auto Diffe renti al panel - Blood basophils 1 % BASOP HILS 1 % 11/21 3:10 AM [employer] [facility] Not Available Not Available 12/24/2024 17:32:30 11/21/19 25 11/21/2024 CBC W Auto Diffe renti al panel - Blood immature granulocytes 1 % IMMAT URE GRANU LOCYT ES 1 % 11/21 3:10 AM [employer] [facility] Not Available Not Available 12/24/2024 17:32:30 11/21/19 25 11/21/2024 CBC W Auto Diffe renti al panel - Blood neutrophils [#/volume] in blood by automated count 8.26 K/uL low: 1.9K/u Lhigh: 7K/uL high NEUTR OPHIL ABSOL [place] 8.26 (H) 1.90 - 7.00 K/uL 11/21 3:10 AM [employer] [facility] Not Available Not Available 12/24/2024 17:32:30 11/21/19 25 11/21/2024 CBC W Auto Diffe renti al panel - Blood lymphocyte absolute 0.79 K/uL low: 0.7K/u Lhigh: 4.5K/u L LYMPH OCYTE ABSOL [place] 0.79 0.70 - 4.50 K/uL 11/21 3:10 AM [employer] [facility] Not Available Not Available 12/24/2024 17:32:30 11/21/19 25 11/21/2024 CBC W Auto Diffe renti al panel - Blood monocyte absolute 0.77 K/uL low: 0.1K/u Lhigh: 1.3K/u L MONOC YTE ABSOL [place] 0.77 0.10 - 1.30 K/uL 11/21 3:10 AM GOLF CADDY [employer] [facility] Not Available Not Available 12/24/2024 17:32:30 11/21/19 25 11/21/2024 CBC W Auto Diffe renti al panel - Blood eosinophil absolute 0.19 K/uL low: 0K/uLh igh: 0.7K/u L EOSIN OPHIL ABSOL [place] 0.19 0.00 - 0.70 K/uL 11/21 3:10 AM [employer] [facility] Not Available Not Available 12/24/2024 17:32:30 11/21/19 25 11/21/2024 CBC W Auto Diffe renti al panel - Blood basophils absolute 0.08 K/uL low: 0K/uLh igh: 0.2K/u L BASOP HILS ABSOL [place] 0.08 0.00 - 0.20 K/uL 11/21 3:10 AM [employer] [facility] Not Available Not Available 12/24/2024 17:32:30 11/21/19 25 11/21/2024 CBC W Auto Diffe renti al panel - Blood immature granulocytes absolute 0.07 K/uL low: 0K/uLh igh: 0.03K/ uL high IMMAT URE GRANU LOCYT ES ABSOL [place] 0.07 (H) 0.00 - 0.03 K/uL 11/21 3:10 AM [employer] [facility] Not Available Not Available 12/24/2024 17:32:30 [...] - 145 mmol/ L 11/21 4:55 AM Endoluminal SciencesAMERICAN HEALTHCARE SYSTEMSFrontalRain Technologies [facility] Not Available Not Available 12/24/2024 17:32:30 11/21/19 25 11/21/2024 Renal funct ion 1999 panel - Serum or Plasm a potassium [moles/volum e] in serum or plasma 6.6 mmol/ L low: 3.4mmo l/Lhig h: 5.1mmo l/L critical high POTAS SIUM 6.6 (HH) 3.4 - 5.1 mmol/ L 11/21 4:55 AM [facility] Not Available Not Available 12/24/2024 17:32:30 11/21/19 25 11/21/2024 Renal funct ion 1999 panel - Serum or Plasm a chloride 103 mmol/ L low: 98mmol /Lhigh : 107mmo l/L CHLOR BURT 103 98 - 107 mmol/ L 11/21 4:55 AM [employer] [facility] Not Available Not Available 12/24/2024 17:32:30 11/21/19 25 11/21/2024 Renal funct ion 1999 panel - Serum or Plasm a carbon dioxide, total [moles/volum e] in serum or plasma 17 mmol/ L low: 22mmol /Lhigh : 29mmol /L low CO2 17 (L) 22 - 29 mmol/ L 11/21 4:55 AM [facility] Not Available Not Available 12/24/2024 17:32:30 11/21/19 25 11/21/2024 Renal funct ion 1999 panel - Serum or Plasm a calcium 9.3 mg/dL low: 8.6mg/ dLhigh : 10.4mg /dL CALCI UM 9.3 8.6 - 10.4 mg/dL 11/21 4:55 AM [employer] [facility] Not Available Not Available 12/24/2024 17:32:30 11/21/19 25 11/21/2024 Renal funct ion 1999 panel - Serum or Plasm a BUN 49 mg/dL low: 6mg/dL high: 20mg/d L high BUN 49 (H) 6 - 20 mg/dL 11/21 4:55 AM [employer] [facility] Not Available Not Available 12/24/2024 17:32:30 11/21/19 25 11/21/2024 Renal funct ion 1999 panel - Serum or Plasm a creatinine [mass/volume ] in serum or plasma 7.3 mg/dL low: 0.67mg /dLhig h: 1.17mg /dL high CREAT ININE 7.30 (H) 0.67 - 1.17 mg/dL 11/21 4:55 AM [employer] [facility] [employer] [facility] Not Available Not Available 12/24/2024 17:32:30 11/21/19 25 11/21/2024 Renal funct ion 1999 panel - Serum or Plasm a glucose [mass/volume ] in serum or plasma 105 mg/dL low: 74mg/d Lhigh: 99mg/d L high GLUCO SE 105 (H) 74 - 99 mg/dL 11/21 4:55 AM [facility] Not Available Not Available 12/24/2024 17:32:30 11/21/19 25 11/21/2024 Renal funct ion 1999 panel - Serum or Plasm a albumin 2.9 g/dL low: 3.5g/d Lhigh: 5.2g/d L low ALBUM IN 2.9 (L) 3.5 - 5.2 g/dL 11/21 4:55 AM [employer] [facility] Not Available Not Available 12/24/2024 17:32:30 11/21/19 25 11/21/2024 Renal funct ion 1999 panel - Serum or Plasm a phosphorus 4.7 mg/dL low: 2.5mg/ dLhigh : 4.5mg/ dL high PHOSP HORUS 4.7 (H) 2.5 - 4.5 mg/dL 11/21 4:55 AM Endoluminal SciencesAMERICAN HEALTHCARE SYSTEMSFrontalRain Technologies [facility] Not Available Not Available 12/24/2024 17:32:30 11/21/19 25 11/21/2024 Renal funct ion 1999 panel - Serum or Plasm a glomerular filtration rate/1.73 sq M.predicted [volume rate/area] in serum, plasma or blood by creatinine-b ased formula (CKD-epi 2020) 8 text: >=60 mL/min /1.73 sq meter low GFR 8 (L) >=60 mL/mi n/1.7 3 sq meter 11/21 4:55 AM [employer] [facility] Not Available Not Available 12/24/2024 17:32:30 11/21/19 25 11/21/2024 Renal funct ion 1999 panel - Serum or Plasm a anion gap 12 mmol/ L low: 8mmol/ Lhigh: 16mmol /L ANION GAP 12 8 - 16 mmol/ L 11/21 4:55 AM [employer] [facility] Not Available Not Available 12/24/2024 17:32:30 [...] - 145 mmol/ L 11/22 7:06 AM [facility] Not Available Not Available 12/24/2024 17:32:31 11/22/19 25 11/22/2024 Renal funct ion 1999 panel - Serum or Plasm a potassium [moles/volum e] in serum or plasma 5.9 mmol/ L low: 3.4mmo l/Lhig h: 5.1mmo l/L high POTAS SIUM 5.9 (H) 3.4 - 5.1 mmol/ L 11/22 7:06 AM [facility] [facility] Not Available Not Available 12/24/2024 17:32:31 11/22/19 25 11/22/2024 Renal funct ion 1999 panel - Serum or Plasm a chloride 102 mmol/ L low: 98mmol /Lhigh : 107mmo l/L CHLOR BURT 102 98 - 107 mmol/ L 11/22 7:06 AM [employer] Systems[employer] [facility] Not Available Not Available 12/24/2024 17:32:31 11/22/19 25 11/22/2024 Renal funct ion 1999 panel - Serum or Plasm a carbon dioxide, total [moles/volum e] in serum or plasma 20 mmol/ L low: 22mmol /Lhigh : 29mmol /L low CO2 20 (L) 22 - 29 mmol/ L 11/22 7:06 AM [employer]a SystemsIvonne [facility] Not Available Not Available 12/24/2024 17:32:31 11/22/19 25 11/22/2024 Renal funct ion 1999 panel - Serum or Plasm a calcium 9.6 mg/dL low: 8.6mg/ dLhigh : 10.4mg /dL CALCI UM 9.6 8.6 - 10.4 mg/dL 11/22 7:06 AM [employer] Not Available Not Available 12/24/2024 17:32:31 11/22/19 25 11/22/2024 Renal funct ion 1999 panel - Serum or Plasm a BUN 36 mg/dL low: 6mg/dL high: 20mg/d L high BUN 36 (H) 6 - 20 mg/dL 11/22 7:06 AM [employer] Not Available Not Available 12/24/2024 17:32:31 11/22/19 25 11/22/2024 Renal funct ion 1999 panel - Serum or Plasm a creatinine [mass/volume ] in serum or plasma 5.92 mg/dL low: 0.67mg /dLhig h: 1.17mg /dL high CREAT ININE 5.92 (H) 0.67 - 1.17 mg/dL 11/22 7:06 [facility] Not Available 12/24/2024 17:32:31 11/22/19 25 11/22/2024 Renal funct ion 1999 panel - Serum or Plasm a glucose [mass/volume ] in serum or plasma 101 mg/dL low: 74mg/d Lhigh: 99mg/d L high GLUCO SE 101 (H) 74 - 99 mg/dL 11/22 7:06 AM [employer] [facility] Not Available Not Available 12/24/2024 17:32:31 11/22/19 25 11/22/2024 Renal funct ion 1999 panel - Serum or Plasm a albumin 3 g/dL low: 3.5g/d Lhigh: 5.2g/d L low ALBUM IN 3.0 (L) 3.5 - 5.2 g/dL 11/22 7:06 AM [employer] [facility] Not Available Not Available 12/24/2024 17:32:31 11/22/19 25 11/22/2024 Renal funct ion 1999 panel - Serum or Plasm a phosphorus 4.3 mg/dL low: 2.5mg/ dLhigh : 4.5mg/ dL PHOSP HORUS 4.3 2.5 - 4.5 mg/dL 11/22 7:06 AM [employer] [facility] Not Available Not Available 12/24/2024 17:32:31 11/22/19 25 11/22/2024 Renal funct ion 1999 panel - Serum or Plasm a glomerular filtration rate/1.73 sq M.predicted [volume rate/area] in serum, plasma or blood by creatinine-b ased formula (CKD-epi 2020) 10 text: >=60 mL/min /1.73 sq meter low GFR 10 (L) >=60 mL/mi n/1.7 3 sq meter 11/22 7:06 AM [facility] Not Available 12/24/2024 17:32:31 11/22/19 25 11/22/2024 Renal funct ion 1999 panel - Serum or Plasm a anion gap 13 mmol/ L low: 8mmol/ Lhigh: 16mmol /L ANION GAP 13 8 - 16 mmol/ L 11/22 7:06 AM [facility] Not Available 12/24/2024 17:32:31 [...] 4.0 - 9.8 K/uL 11/22 6:31 AM [facility] Not Available 12/24/2024 17:32:30 11/22/19 25 11/22/2024 CBC W Auto Diffe renti al panel - Blood RBC 2.52 text: 4.50 - 5.40 M/uL low RBC 2.52 (L) 4.50 - 5.40 M/uL 11/22 6:31 AM [employer] [facility] Not Available Not Available 12/24/2024 17:32:30 11/22/19 25 11/22/2024 CBC W Auto Diffe renti al panel - Blood hemoglobin 8.5 g/dL low: 13.6g/ dLhigh : 16.5g/ dL low HEMOG LOBIN 8.5 (L) 13.6 - 16.5 g/dL 11/22 6:31 AM [employer] [facility] Not Available Not Available 12/24/2024 17:32:30 11/22/19 25 11/22/2024 CBC W Auto Diffe renti al panel - Blood hematocrit [volume fraction] of blood by automated count 26.9 % low: 40%hig h: 48% low HEMAT OCRIT 26.9 (L) 40.0 - 48.0 % 11/22 6:31 AM [facility] Not Available 12/24/2024 17:32:30 11/22/19 25 11/22/2024 CBC W Auto Diffe renti al panel - Blood MCV 106.7 fL low: 82fLhi gh: 99fL high MCV 106.7 (H) 82.0 - 99.0 fL 11/22 6:31 AM GOLF CADDY [employer] [facility] Not Available Not Available 12/24/2024 17:32:30 11/22/19 25 11/22/2024 CBC W Auto Diffe renti al panel - Blood MCH 33.7 pg low: 27.2pg high: 32.6pg high MCH 33.7 (H) 27.2 - 32.6 pg 11/22 6:31 AM GOLF CADDY [employer] [facility] Not Available Not Available 12/24/2024 17:32:30 11/22/19 25 11/22/2024 CBC W Auto Diffe renti al panel - Blood MCHC 31.6 g/dL low: 31.5g/ dLhigh : 35.5g/ dL MCHC 31.6 31.5 - 35.5 g/dL 11/22 6:31 AM GOLF CADDY [employer] [facility] Not Available Not Available 12/24/2024 17:32:30 11/22/19 25 11/22/2024 CBC W Auto Diffe renti al panel - Blood RDW 16.9 % low: 11.5%h igh: 14.5% high RDW 16.9 (H) 11.5 - 14.5 % 11/22 6:31 AM [employer] [facility] Not Available Not Available 12/24/2024 17:32:30 11/22/19 25 11/22/2024 CBC W Auto Diffe renti al panel - Blood RDW-stdev 66.1 fL low: 37.1fL high: 48.7fL high RDW-S TDEV 66.1 (H) 37.1 - 48.7 fL 11/22 6:31 AM [employer] [facility] Not Available Not Available 12/24/2024 17:32:30 11/22/19 25 11/22/2024 CBC W Auto Diffe renti al panel - Blood platelets [#/volume] in blood by automated count 352 K/uL low: 140K/u Lhigh: 350K/u L high PLATE LETS 352 (H) 140 - 350 K/uL 11/22 6:31 AM GOLF CADDY [employer] [facility] Not Available Not Available 12/24/2024 17:32:30 11/22/19 25 11/22/2024 CBC W Auto Diffe renti al panel - Blood MPV 9.7 fL low: 9.3fLh igh: 12.4fL MPV 9.7 9.3 - 12.4 fL 11/22 6:31 AM GOLF CADDY [employer] [facility] Not Available Not Available 12/24/2024 17:32:30 11/22/19 25 11/22/2024 CBC W Auto Diffe renti al panel - Blood neutrophils 80 % NEUTR OPHIL S 80 % 11/22 6:31 AM GOLF CADDY [employer] [facility] Not Available Not Available 12/24/2024 17:32:30 11/22/19 25 11/22/2024 CBC W Auto Diffe renti al panel - Blood lymphocytes/ 100 leukocytes in blood by automated count 8 % LYMPH OCYTE S 8 % 11/22 6:31 AM [employer] [facility] Not Available Not Available 12/24/2024 17:32:30 11/22/19 25 11/22/2024 CBC W Auto Diffe renti al panel - Blood monocytes 8 % MONOC YTES 8 % 11/22 6:31 AM [employer] [facility] Not Available Not Available 12/24/2024 17:32:30 11/22/19 25 11/22/2024 CBC W Auto Diffe renti al panel - Blood eosinophils 2 % EOSIN OPHIL S 2 % 11/22 6:31 AM [employer] [facility] Not Available Not Available 12/24/2024 17:32:30 11/22/19 25 11/22/2024 CBC W Auto Diffe renti al panel - Blood basophils 1 % BASOP HILS 1 % 11/22 6:[address] [employer] [facility] Not Available Not Available 12/24/2024 17:32:30 11/22/19 25 11/22/2024 CBC W Auto Diffe renti al panel - Blood immature granulocytes 1 % IMMAT URE GRANU LOCYT ES 1 % 11/22 6:31 AM [facility] Not Available Not Available 12/24/2024 17:32:30 11/22/19 25 11/22/2024 CBC W Auto Diffe renti al panel - Blood neutrophils [#/volume] in blood by automated count 9.01 K/uL low: 1.9K/u Lhigh: 7K/uL high NEUTR OPHIL ABSOL [place] 9.01 (H) 1.90 - 7.00 K/uL 11/22 6:31 AM [facility] [employer] [facility] Not Available Not Available 12/24/2024 17:32:30 11/22/19 25 11/22/2024 CBC W Auto Diffe renti al panel - Blood lymphocyte absolute 0.91 K/uL low: 0.7K/u Lhigh: 4.5K/u L LYMPH OCYTE ABSOL [place] 0.91 0.70 - 4.50 K/uL 11/22 6:31 AM [facility] Not Available Not Available 12/24/2024 17:32:30 11/22/19 25 11/22/2024 CBC W Auto Diffe renti al panel - Blood monocyte absolute 0.92 K/uL low: 0.1K/u Lhigh: 1.3K/u L MONOC YTE ABSOL [place] 0.92 0.10 - 1.30 K/uL 11/22 6:31 AM [facility] [employer] [facility] Not Available Not Available 12/24/2024 17:32:30 11/22/19 25 11/22/2024 CBC W Auto Diffe renti al panel - Blood eosinophil absolute 0.22 K/uL low: 0K/uLh igh: 0.7K/u L EOSIN OPHIL ABSOL [place] 0.22 0.00 - 0.70 K/uL 11/22 6:31 AM [employer] [facility] Not Available Not Available 12/24/2024 17:32:30 11/22/19 25 11/22/2024 CBC W Auto Diffe renti al panel - Blood basophils absolute 0.09 K/uL low: 0K/uLh igh: 0.2K/u L BASOP HILS ABSOL [place] 0.09 0.00 - 0.20 K/uL 11/22 6:31 AM GOLF CADDY [employer] [facility] Not Available Not Available 12/24/2024 17:32:30 11/22/19 25 11/22/2024 CBC W Auto Diffe renti al panel - Blood immature granulocytes absolute 0.07 K/uL low: 0K/uLh igh: 0.03K/ uL high IMMAT URE GRANU LOCYT ES ABSOL [place] 0.07 (H) 0.00 - 0.03 K/uL 11/22 6:31 AM [employer] [facility] Not Available Not Available 12/24/2024 17:32:30 [...] (A) DAVID MCG/M L 11/28 11:33 AM [facility] Not Available Not Available 12/24/2024 17:32:31 11/23/19 25 11/28/2024 Bacte shaneka ident ified in Speci men by Anaer obe+A erobe cultu re microscopic observation [identifier] in specimen by gram stain No organi sms observ ed GRAM STAIN No organ isms obser evan 11/28 11:33 AM [employer] [facility] Not Available Not Available 12/24/2024 17:32:31 11/23/19 25 11/28/2024 Bacte shaneka ident ified in Speci men by Anaer obe+A erobe cultu re microscopic observation [identifier] in specimen by gram stain 1+ (Rare or Occasi onal) Polymo rphonu clear WBC GRAM STAIN 1+ (Rare or Occas ional ) Polym orpho nucle ar WBC 11/28 11:33 AM [facility]OLF CADDY [facility] Not Available Not Available 12/24/2024 17:32:31 11/23/19 25 11/28/2024 Bacte shaneak ident ified in Speci men by Anaer [...] - 145 mmol/ L 11/23 6:19 AM [employer] [facility] Not Available Not Available 12/24/2024 17:32:31 11/23/19 25 11/23/2024 Renal funct ion 1999 panel - Serum or Plasm a potassium [moles/volum e] in serum or plasma 4.5 mmol/ L low: 3.4mmo l/Lhig h: 5.1mmo l/L POTAS SIUM 4.5 3.4 - 5.1 mmol/ L 11/23 6:19 AM [employer] [facility] Not Available Not Available 12/24/2024 17:32:31 11/23/19 25 11/23/2024 Renal funct ion 1999 panel - Serum or Plasm a chloride 100 mmol/ L low: 98mmol /Lhigh : 107mmo l/L CHLOR BURT 100 98 - 107 mmol/ L 11/23 6:19 AM [employer] [facility] Not Available Not Available 12/24/2024 17:32:31 11/23/19 25 11/23/2024 Renal funct ion 1999 panel - Serum or Plasm a carbon dioxide, total [moles/volum e] in serum or plasma 21 mmol/ L low: 22mmol /Lhigh : 29mmol /L low CO2 21 (L) 22 - 29 mmol/ L 11/23 6:19 AM [employer] [facility] Not Available Not Available 12/24/2024 17:32:31 11/23/19 25 11/23/2024 Renal funct ion 1999 panel - Serum or Plasm a calcium 9.2 mg/dL low: 8.6mg/ dLhigh : 10.4mg /dL CALCI UM 9.2 8.6 - 10.4 mg/dL 11/23 6:19 AM [employer] [facility] Not Available Not Available 12/24/2024 17:32:31 11/23/19 25 11/23/2024 Renal funct ion 1999 panel - Serum or Plasm a BUN 37 mg/dL low: 6mg/dL high: 20mg/d L high BUN 37 (H) 6 - 20 mg/dL 11/23 6:19 AM [employer] [facility] Not Available Not Available 12/24/2024 17:32:31 11/23/19 25 11/23/2024 Renal funct ion 1999 panel - Serum or Plasm a creatinine [mass/volume ] in serum or plasma 6.21 mg/dL low: 0.67mg /dLhig h: 1.17mg /dL high CREAT ININE 6.21 (H) 0.67 - 1.17 mg/dL 11/23 6:19 AM [employer] [facility] Not Available Not Available 12/24/2024 17:32:31 11/23/19 25 11/23/2024 Renal funct ion 1999 panel - Serum or Plasm a glucose [mass/volume ] in serum or plasma 89 mg/dL low: 74mg/d Lhigh: 99mg/d L GLUCO SE 89 74 - 99 mg/dL 11/23 6:19 AM [employer] [facility] Not Available Not Available 12/24/2024 17:32:31 11/23/19 25 11/23/2024 Renal funct ion 1999 panel - Serum or Plasm a albumin 2.8 g/dL low: 3.5g/d Lhigh: 5.2g/d L low ALBUM IN 2.8 (L) 3.5 - 5.2 g/dL 11/23 6:19 AM [employer] [facility] Not Available Not Available 12/24/2024 17:32:31 11/23/19 25 11/23/2024 Renal funct ion 1999 panel - Serum or Plasm a phosphorus 4.2 mg/dL low: 2.5mg/ dLhigh : 4.5mg/ dL PHOSP HORUS 4.2 2.5 - 4.5 mg/dL 11/23 6:19 AM [employer] [facility] Not Available Not Available 12/24/2024 17:32:31 11/23/19 25 11/23/2024 Renal funct ion 1999 panel - Serum or Plasm a glomerular filtration rate/1.73 sq M.predicted [volume rate/area] in serum, plasma or blood by creatinine-b ased formula (CKD-epi 2020) 9 text: >=60 mL/min /1.73 sq meter low GFR 9 (L) >=60 mL/mi n/1.7 3 sq meter 11/23 6:19 AM [employer] [facility] Not Available Not Available 12/24/2024 17:32:31 11/23/19 25 11/23/2024 Renal funct ion 1999 panel - Serum or Plasm a anion gap 13 mmol/ L low: 8mmol/ Lhigh: 16mmol /L ANION GAP 13 8 - 16 mmol/ L 11/23 6:19 AM [employer] [facility] Not Available Not Available 12/24/2024 17:32:31 [...] 4.0 - 9.8 K/uL 11/23 4:11 AM [employer] [facility] Not Available Not Available 12/24/2024 17:32:07 11/23/19 25 11/23/2024 CBC W Auto Diffe renti al panel - Blood RBC 2.12 text: 4.50 - 5.40 M/uL low RBC 2.12 (L) 4.50 - 5.40 M/uL 11/23 4:11 AM [facility] Not Available Not Available 12/24/2024 17:32:07 11/23/19 25 11/23/2024 CBC W Auto Diffe renti al panel - Blood hemoglobin 7 g/dL low: 13.6g/ dLhigh : 16.5g/ dL low HEMOG LOBIN 7.0 (L) 13.6 - 16.5 g/dL 11/23 4:11 AM [facility] Not Available Not Available 12/24/2024 17:32:07 11/23/19 25 11/23/2024 CBC W Auto Diffe renti al panel - Blood hematocrit [volume fraction] of blood by automated count 21.9 % low: 40%hig h: 48% low HEMAT OCRIT 21.9 (L) 40.0 - 48.0 % 11/23 4:11 AM [employer] [facility] Not Available Not Available 12/24/2024 17:32:07 11/23/19 25 11/23/2024 CBC W Auto Diffe renti al panel - Blood MCV 103.3 fL low: 82fLhi gh: 99fL high MCV 103.3 (H) 82.0 - 99.0 fL 11/23 4:11 AM [facility] Not Available Not Available 12/24/2024 17:32:07 02/08/20 25 11/23/2024 CBC W Auto Diffe renti al panel - Blood MCH 33 pg low: 27.2pg high: 32.6pg high MCH 33.0 (H) 27.2 - 32.6 pg 11/23 4:11 AM [facility] Not Available Not Available 12/24/2024 17:32:07 11/23/19 25 11/23/2024 CBC W Auto Diffe renti al panel - Blood MCHC 32 g/dL low: 31.5g/ dLhigh : 35.5g/ dL MCHC 32.0 31.5 - 35.5 g/dL 11/23 4:11 AM [facility] Not Available Not Available 12/24/2024 17:32:07 11/23/19 25 11/23/2024 CBC W Auto Diffe renti al panel - Blood RDW 16.6 % low: 11.5%h igh: 14.5% high RDW 16.6 (H) 11.5 - 14.5 % 11/23 4:11 AM [facility] Not Available Not Available 12/24/2024 17:32:07 11/23/19 25 11/23/2024 CBC W Auto Diffe renti al panel - Blood RDW-stdev 62.7 fL low: 37.1fL high: 48.7fL high RDW-S TDEV 62.7 (H) 37.1 - 48.7 fL 11/23 4:11 AM [facility] Not Available Not Available 12/24/2024 17:32:07 11/23/19 25 11/23/2024 CBC W Auto Diffe renti al panel - Blood platelets [#/volume] in blood by automated count 346 K/uL low: 140K/u Lhigh: 350K/u L PLATE LETS 346 140 - 350 K/uL 11/23 4:11 AM [facility] Not Available Not Available 12/24/2024 17:32:07 11/23/19 25 11/23/2024 CBC W Auto Diffe renti al panel - Blood MPV 9.8 fL low: 9.3fLh igh: 12.4fL MPV 9.8 9.3 - 12.4 fL 11/23 4:11 AM GOLF CADDY [facility] Not Available Not Available 12/24/2024 17:32:07 11/23/19 25 11/23/2024 CBC W Auto Diffe renti al panel - Blood neutrophils 74 % NEUTR OPHIL S 74 % 11/23 4:11 AM [employer] [facility] Not Available Not Available 12/24/2024 17:32:07 11/23/19 25 11/23/2024 CBC W Auto Diffe renti al panel - Blood lymphocytes/ 100 leukocytes in blood by automated count 13 % LYMPH OCYTE S 13 % 11/23 4:11 AM [employer] [facility] Not Available Not Available 12/24/2024 17:32:07 11/23/19 25 11/23/2024 CBC W Auto Diffe renti al panel - Blood monocytes 10 % MONOC YTES 10 % 11/23 4:11 AM [employer] [facility] Not Available Not Available 12/24/2024 17:32:07 11/23/19 25 11/23/2024 CBC W Auto Diffe renti al panel - Blood eosinophils 2 % EOSIN OPHIL S 2 % 11/23 4:11 AM [employer] [facility] Not Available Not Available 12/24/2024 17:32:07 11/23/19 25 11/23/2024 CBC W Auto Diffe renti al panel - Blood basophils 1 % BASOP HILS 1 % 11/23 4:11 AM [employer] [facility] Not Available Not Available 12/24/2024 17:32:07 11/23/19 25 11/23/2024 CBC W Auto Diffe renti al panel - Blood immature granulocytes 1 % IMMAT URE GRANU LOCYT ES 1 % 11/23 4:11 AM [employer] [facility] Not Available Not Available 12/24/2024 17:32:07 11/23/19 25 11/23/2024 CBC W Auto Diffe renti al panel - Blood neutrophils [#/volume] in blood by automated count 7.09 K/uL low: 1.9K/u Lhigh: 7K/uL high NEUTR OPHIL ABSOL [place]QUIL[place] 7.09 (H) 1.90 - 7.00 K/uL 11/23 4:11 AM [facility] [place] Not Available Not Available 12/24/2024 17:32:07 11/23/19 25 11/23/2024 CBC W Auto Diffe renti al panel - Blood lymphocyte absolute 1.19 K/uL low: 0.7K/u Lhigh: 4.5K/u L LYMPH OCYTE ABSOL [place] 1.19 0.70 - 4.50 K/uL 11/23 4:[address] [employer] [facility] Not Available Not Available 12/24/2024 17:32:07 11/23/19 25 11/23/2024 CBC W Auto Diffe renti al panel - Blood monocyte absolute 0.94 K/uL low: 0.1K/u Lhigh: 1.3K/u L MONOC YTE ABSOL [place] 0.94 0.10 - 1.30 K/uL 11/23 4:[address] [employer] [facility] Not Available Not Available 12/24/2024 17:32:07 11/23/19 25 11/23/2024 CBC W Auto Diffe renti al panel - Blood eosinophil absolute 0.2 K/uL low: 0K/uLh igh: 0.7K/u L EOSIN OPHIL ABSOL [place] 0.20 0.00 - 0.70 K/uL 11/23 4:[address] [employer] [facility] Not Available Not Available 12/24/2024 17:32:07 11/23/19 25 11/23/2024 CBC W Auto Diffe renti al panel - Blood basophils absolute 0.07 K/uL low: 0K/uLh igh: 0.2K/u L BASOP HILS ABSOL [place]QU[place] 0.07 0.00 - 0.20 K/uL 11/23 4:11 AM [employer] [facility] Not Available Not Available 12/24/2024 17:32:07 11/23/19 25 11/23/2024 CBC W Auto Diffe renti al panel - Blood immature granulocytes absolute 0.06 K/uL low: 0K/uLh igh: 0.03K/ uL high IMMAT URE GRANU LOCYT ES ABSOL [place]QU[place] 0.06 (H) 0.00 - 0.03 K/uL 11/23 4:11 AM [employer] [facility] Not Available Not Available 12/24/2024 17:32:07 [...] - 145 mmol/ L 11/24 5:05 AM [employer] [facility] Not Available Not Available 12/24/2024 17:32:31 11/24/19 25 11/24/2024 Renal funct ion 1999 panel - Serum or Plasm a potassium [moles/volum e] in serum or plasma 4.3 mmol/ L low: 3.4mmo l/Lhig h: 5.1mmo l/L POTAS SIUM 4.3 3.4 - 5.1 mmol/ L 11/24 5:05 AM [employer] [facility] Not Available Not Available 12/24/2024 17:32:31 11/24/19 25 11/24/2024 Renal funct ion 1999 panel - Serum or Plasm a chloride 100 mmol/ L low: 98mmol /Lhigh : 107mmo l/L CHLOR BURT 100 98 - 107 mmol/ L 11/24 5:05 AM [facility] Not Available Not Available 12/24/2024 17:32:31 11/24/19 25 11/24/2024 Renal funct ion 1999 panel - Serum or Plasm a carbon dioxide, total [moles/volum e] in serum or plasma 24 mmol/ L low: 22mmol /Lhigh : 29mmol /L CO2 24 22 - 29 mmol/ L 11/24 5:05 AM [employer] [facility] Not Available Not Available 12/24/2024 17:32:31 11/24/19 25 11/24/2024 Renal funct ion 1999 panel - Serum or Plasm a calcium 9.1 mg/dL low: 8.6mg/ dLhigh : 10.4mg /dL CALCI UM 9.1 8.6 - 10.4 mg/dL 11/24 5:05 AM [employer] [facility] Not Available Not Available 12/24/2024 17:32:31 11/24/19 25 11/24/2024 Renal funct ion 1999 panel - Serum or Plasm a BUN 27 mg/dL low: 6mg/dL high: 20mg/d L high BUN 27 (H) 6 - 20 mg/dL 11/24 5:05 AM [employer] [facility] Not Available Not Available 12/24/2024 17:32:31 11/24/19 25 11/24/2024 Renal funct ion 1999 panel - Serum or Plasm a creatinine [mass/volume ] in serum or plasma 4.49 mg/dL low: 0.67mg /dLhig h: 1.17mg /dL high CREAT ININE 4.49 (H) 0.67 - 1.17 mg/dL 11/24 5:05 AM [employer] [facility] Not Available Not Available 12/24/2024 17:32:31 11/24/19 25 11/24/2024 Renal funct ion 1999 panel - Serum or Plasm a glucose [mass/volume ] in serum or plasma 71 mg/dL low: 74mg/d Lhigh: 99mg/d L low GLUCO SE 71 (L) 74 - 99 mg/dL 11/24 5:05 AM [employer] [facility] Not Available Not Available 12/24/2024 17:32:31 11/24/19 25 11/24/2024 Renal funct ion 2000 panel - Serum or Plasm a albumin 2.7 g/dL low: 3.5g/d Lhigh: 5.2g/d L low ALBUM IN 2.7 (L) 3.5 - 5.2 g/dL 11/24 5:05 AM [employer] [facility] Not Available Not Available 12/24/2024 17:32:31 11/24/19 25 11/24/2024 Renal funct ion 1999 panel - Serum or Plasm a phosphorus 2.8 mg/dL low: 2.5mg/ dLhigh : 4.5mg/ dL PHOSP HORUS 2.8 2.5 - 4.5 mg/dL 11/24 5:05 AM [employer] [facility] Not Available Not Available 12/24/2024 17:32:31 11/24/1911/24/2024 Renal funct ion 2000 panel - Serum or Plasm a glomerular filtration rate/1.73 sq M.predicted [volume rate/area] in serum, plasma or blood by creatinine-b ased formula (CKD-epi 2020) 14 text: >=60 mL/min /1.73 sq meter low GFR 14 (L) >=60 mL/mi n/1.7 3 sq meter 11/24 5:05 AM [employer] [facility] Not Available Not Available 12/24/2024 17:32:31 11/24/1911/24/2024 Renal funct ion 2000 panel - Serum or Plasm a anion gap 10 mmol/ L low: 8mmol/ Lhigh: 16mmol /L ANION GAP 10 8 - 16 mmol/ L 11/24 5:05 AM [employer] [facility] Not Available Not Available 12/24/2024 17:32:31 [...] 4.0 - 9.8 K/uL 11/24 5:01 AM [facility] Not Available Not Available 12/24/2024 17:32:07 11/24/19 25 11/24/2024 CBC panel - Blood by Autom ated count RBC 2.2 text: 4.50 - 5.40 M/uL low RBC 2.20 (L) 4.50 - 5.40 M/uL 11/24 5:01 AM [facility] Not Available Not Available 12/24/2024 17:32:07 11/24/19 25 11/24/2024 CBC panel - Blood by Autom ated count hemoglobin 7.3 g/dL low: 13.6g/ dLhigh : 16.5g/ dL low HEMOG LOBIN 7.3 (L) 13.6 - 16.5 g/dL 11/24 5:01 AM [employer] [facility] Not Available Not Available 12/24/2024 17:32:07 11/24/1911/24/2024 CBC panel - Blood by Autom ated count hematocrit [volume fraction] of blood by automated count 22.7 % low: 40%hig h: 48% low HEMAT OCRIT 22.7 (L) 40.0 - 48.0 % 11/24 5:01 AM [facility] Not Available Not Available 12/24/2024 17:32:07 11/24/19 25 11/24/2024 CBC panel - Blood by Autom ated count MCV 103.2 fL low: 82fLhi gh: 99fL high MCV 103.2 (H) 82.0 - 99.0 fL 11/24 5:01 AM [facility] Not Available Not Available 12/24/2024 17:32:07 11/24/19 25 11/24/2024 CBC panel - Blood by Autom ated count MCH 33.2 pg low: 27.2pg high: 32.6pg high MCH 33.2 (H) 27.2 - 32.6 pg 11/24 5:01 AM [facility] Not Available Not Available 12/24/2024 17:32:07 11/24/19 25 11/24/2024 CBC panel - Blood by Autom ated count MCHC 32.2 g/dL low: 31.5g/ dLhigh : 35.5g/ dL MCHC 32.2 31.5 - 35.5 g/dL 11/24 5:01 AM [employer] [facility] Not Available Not Available 12/24/2024 17:32:07 11/24/19 25 11/24/2024 CBC panel - Blood by Autom ated count platelets [#/volume] in blood by automated count 332 K/uL low: 140K/u Lhigh: 350K/u L PLATE LETS 332 140 - 350 K/uL 11/24 5:01 AM [employer] [facility] Not Available Not Available 12/24/2024 17:32:07 11/24/1911/24/2024 CBC panel - Blood by Autom ated count MPV 10.2 fL low: 9.3fLh igh: 12.4fL MPV 10.2 9.3 - 12.4 fL 11/24 5:01 AM [employer] [facility] Not Available Not Available 12/24/2024 17:32:07 11/24/19 25 11/24/2024 CBC panel - Blood by Autom ated count RDW 17.3 % low: 11.5%h igh: 14.5% high RDW 17.3 (H) 11.5 - 14.5 % 11/24 5:01 [facility] Not Available 12/24/2024 17:32:07 11/24/19 25 11/24/2024 CBC panel - Blood by Autom ated count RDW-stdev 65.5 fL low: 37.1fL high: 48.7fL high RDW-S TDEV 65.5 (H) 37.1 - 48.7 fL 11/24 5:01 [facility] Not Available 12/24/2024 17:32:07 [...] - 145 mmol/ L 11/25 5:27 AM [employer] [facility] Not Available Not Available 12/24/2024 17:32:31 11/25/1911/25/2024 Renal funct ion 1999 panel - Serum or Plasm a potassium [moles/volum e] in serum or plasma 4.4 mmol/ L low: 3.4mmo l/Lhig h: 5.1mmo l/L POTAS SIUM 4.4 3.4 - 5.1 mmol/ L 11/25 5:27 AM [employer] [facility] Not Available Not Available 12/24/2024 17:32:31 11/25/19 25 11/25/2024 Renal funct ion 1999 panel - Serum or Plasm a chloride 97 mmol/ L low: 98mmol /Lhigh : 107mmo l/L low [place] [place]T 97 (L) 98 - 107 mmol/ L 11/25 5:27 AM [employer] [facility] Not Available Not Available 12/24/2024 17:32:31 11/25/19 25 11/25/2024 Renal funct ion 1999 panel - Serum or Plasm a carbon dioxide, total [moles/volum e] in serum or plasma 24 mmol/ L low: 22mmol /Lhigh : 29mmol /L CO2 24 22 - 29 mmol/ L 11/25 5:27 [facility] Not Available 12/24/2024 17:32:31 11/25/19 25 11/25/2024 Renal funct ion 1999 panel - Serum or Plasm a calcium 9.7 mg/dL low: 8.6mg/ dLhigh : 10.4mg /dL CALCI UM 9.7 8.6 - 10.4 mg/dL 11/25 5:27 AM [employer] [facility] Not Available Not Available 12/24/2024 17:32:31 11/25/19 25 11/25/2024 Renal funct ion 1999 panel - Serum or Plasm a BUN 40 mg/dL low: 6mg/dL high: 20mg/d L high BUN 40 (H) 6 - 20 mg/dL 11/25 5:27 AM [employer] [facility] Not Available Not Available 12/24/2024 17:32:31 11/25/19 25 11/25/2024 Renal funct ion 1999 panel - Serum or Plasm a creatinine [mass/volume ] in serum or plasma 6.66 mg/dL low: 0.67mg /dLhig h: 1.17mg /dL high CREAT ININE 6.66 (H) 0.67 - 1.17 mg/dL 11/25 5:27 AM [employer] [facility] Not Available Not Available 12/24/2024 17:32:31 11/25/19 25 11/25/2024 Renal funct ion 1999 panel - Serum or Plasm a glucose [mass/volume ] in serum or plasma 101 mg/dL low: 74mg/d Lhigh: 99mg/d L high GLUCO SE 101 (H) 74 - 99 mg/dL 11/25 5:27 AM [employer] [facility] Not Available Not Available 12/24/2024 17:32:31 11/25/19 25 11/25/2024 Renal funct ion 1999 panel - Serum or Plasm a albumin 2.9 g/dL low: 3.5g/d Lhigh: 5.2g/d L low ALBUM IN 2.9 (L) 3.5 - 5.2 g/dL 11/25 5:27 AM [employer] [facility] Not Available Not Available 12/24/2024 17:32:31 11/25/19 25 11/25/2024 Renal funct ion 1999 panel - Serum or Plasm a phosphorus 4.1 mg/dL low: 2.5mg/ dLhigh : 4.5mg/ dL PHOSP HORUS 4.1 2.5 - 4.5 mg/dL 11/25 5:27 AM [employer] [facility] Not Available Not Available 12/24/2024 17:32:31 11/25/19 25 11/25/2024 Renal funct ion 1999 panel - Serum or Plasm a glomerular filtration rate/1.73 sq M.predicted [volume rate/area] in serum, plasma or blood by creatinine-b ased formula (CKD-epi 2020) 9 text: >=60 mL/min /1.73 sq meter low GFR 9 (L) >=60 mL/mi n/1.7 3 sq meter 11/25 5:27 AM [facility] [place] Available Not Available 12/24/2024 17:32:31 11/25/19 25 11/25/2024 Renal funct ion 2000 panel - Serum or Plasm a anion gap 12 mmol/ L low: 8mmol/ Lhigh: 16mmol /L ANION GAP 12 8 - 16 mmol/ L 11/25 5:27 AM [employer] [facility] Not Available Not Available 12/24/2024 17:32:31 [...] - 145 mmol/ L 11/26 6:35 AM [employer] [facility] Not Available Not Available 12/24/2024 17:32:07 11/26/19 25 11/26/2024 Renal funct ion 1999 panel - Serum or Plasm a potassium [moles/volum e] in serum or plasma 4.9 mmol/ L low: 3.4mmo l/Lhig h: 5.1mmo l/L POTAS SIUM 4.9 3.4 - 5.1 mmol/ L 11/26 6:35 AM [employer] [facility] Not Available Not Available 12/24/2024 17:32:07 11/26/19 25 11/26/2024 Renal funct ion 1999 panel - Serum or Plasm a chloride 96 mmol/ L low: 98mmol /Lhigh : 107mmo l/L low CHLOR BURT 96 (L) 98 - 107 mmol/ L 11/26 6:35 AM [employer] [facility] Not Available Not Available 12/24/2024 17:32:07 11/26/19 25 11/26/2024 Renal funct ion 1999 panel - Serum or Plasm a carbon dioxide, total [moles/volum e] in serum or plasma 21 mmol/ L low: 22mmol /Lhigh : 29mmol /L low CO2 21 (L) 22 - 29 mmol/ L 11/26 6:35 AM [employer] [facility] Not Available Not Available 12/24/2024 17:32:07 11/26/19 25 11/26/2024 Renal funct ion 1999 panel - Serum or Plasm a calcium 10.3 mg/dL low: 8.6mg/ dLhigh : 10.4mg /dL CALCI UM 10.3 8.6 - 10.4 mg/dL 11/26 6:35 AM [employer] [facility] Not Available Not Available 12/24/2024 17:32:07 11/26/19 25 11/26/2024 Renal funct ion 1999 panel - Serum or Plasm a BUN 53 mg/dL low: 6mg/dL high: 20mg/d L high BUN 53 (H) 6 - 20 mg/dL 11/26 6:35 AM [facility] Not Available 12/24/2024 17:32:07 11/26/19 25 11/26/2024 Renal funct ion 1999 panel - Serum or Plasm a creatinine [mass/volume ] in serum or plasma 7.72 mg/dL low: 0.67mg /dLhig h: 1.17mg /dL high CREAT ININE 7.72 (H) 0.67 - 1.17 mg/dL 11/26 6:35 AM [facility] Not Available Not Available 12/24/2024 17:32:07 11/26/19 25 11/26/2024 Renal funct ion 1999 panel - Serum or Plasm a glucose [mass/volume ] in serum or plasma 100 mg/dL low: 74mg/d Lhigh: 99mg/d L high GLUCO SE 100 (H) 74 - 99 mg/dL 11/26 6:35 AM [employer] [facility] Not Available Not Available 12/24/2024 17:32:07 11/26/19 25 11/26/2024 Renal funct ion 1999 panel - Serum or Plasm a albumin 3.3 g/dL low: 3.5g/d Lhigh: 5.2g/d L low ALBUM IN 3.3 (L) 3.5 - 5.2 g/dL 11/26 6:35 AM [facility] Not Available Not Available 12/24/2024 17:32:07 11/26/19 25 11/26/2024 Renal funct ion 1999 panel - Serum or Plasm a phosphorus 4.5 mg/dL low: 2.5mg/ dLhigh : 4.5mg/ dL PHOSP HORUS 4.5 2.5 - 4.5 mg/dL 11/26 6:35 AM [facility] Not Available Not Available 12/24/2024 17:32:07 11/26/19 25 11/26/2024 Renal funct ion 1999 panel - Serum or Plasm a glomerular filtration rate/1.73 sq M.predicted [volume rate/area] in serum, plasma or blood by creatinine-b ased formula (CKD-epi 2020) 7 text: >=60 mL/min /1.73 sq meter low GFR 7 (L) >=60 mL/mi n/1.7 3 sq meter 11/26 6:35 AM GOLF CADDY [facility] [place] Not Available Not Available 12/24/2024 17:32:07 11/26/19 25 11/26/2024 Renal funct ion 2000 panel - Serum or Plasm a anion gap 14 mmol/ L low: 8mmol/ Lhigh: 16mmol /L ANION GAP 14 8 - 16 mmol/ L 11/26 6:35 AM GOLF CADDY [employer] [facility] Not Available Not Available 12/24/2024 17:32:07 [...] CULTU RE SEE NOTE [facility] Not Available Not Available 12/24/2024 17:31:57 12/19/19 25 12/24/2024 Bacte shaneka ident ified in Speci men by Anaer obe+A erobe cultu re bacteria identified in specimen by aerobe culture SEE NOTE abnormal AEROB IC CULTU RE SEE NOTE (A) [facility] Not Available Not Available 12/24/2024 17:31:57 12/19/19 25 12/24/2024 Bacte shaneka ident ified in Speci men by Anaer obe+A erobe cultu re interpretati on and review of laboratory results Abnorm al Not Available Not Available 17:31:57 01/23/20 25 01/28/2025 Bacte shaneka ident ified in Speci men by Anaer obe+A erobe cultu re bacteria identified in specimen by anaerobe culture SEE NOTE ANAER OBIC CULTU RE SEE NOTE [facility] Not Available Not Available 01/29/2025 15:55:06 01/23/20 25 01/28/2025 Bacte shaneka ident ified in Speci men by Anaer obe+A erobe cultu re bacteria identified in specimen by aerobe culture SEE NOTE abnormal AEROB IC CULTU RE SEE NOTE (A) [facility] Not Available Not Available 01/29/2025 15:55:06 01/23/20 25 01/28/2025 Bacte shaneka ident ified in Speci men by Anaer obe+A erobe cultu re interpretati on and review of laboratory results Abnorm al Not Available Not Available 15:55:06 12/06/19 23 12/05/2022 XR, chest , 2 view No observ ation record ed. [address] [facility], [place], [address], 12/06/2022 11:38:43 03/06/20 23 03/06/2023 CT, abdom en + pelvi s, w/o contr ast No observ ation record ed. [address], [place], [address], 03/06/2023 12:46:38 05/25/20 23 05/23/2023 PET, skull base to mid-t high No observ ation record ed. [address], [place], [address], 06/13/2023 11:37:40 06/15/20 23 06/14/2023 ct guide d needl e biops y (PROC ) No observ ation record ed. [address], [place], [address], 06/15/2023 11:13:30 06/22/20 23 06/21/2023 XR, chest , 2 view No observ ation record ed. [address], [place], [address], 06/23/2023 10:57:46 10/26/19 24 10/25/2023 lab* No observ ation record ed. [email or web address], [place], [address], 10/26/2023 11:54:38 10/26/19 24 10/25/2023 lab* No observ ation record ed. [email or web address], [place], [address], 10/26/2023 11:54:45 10/26/19 24 10/25/2023 lab* No observ ation record ed. [address], [place], [address], 10/26/2023 11:54:52 11/03/19 24 10/25/2023 US, echoc ardio gram, trans thora cic, compl ete, w/ color flow No observ ation record ed. [address], [place], [address], 11/03/2023 15:21:02 02/27/20 24 02/27/2024 CT, chest , w/o contr ast No observ ation record ed. [address], [place], [address], 02/28/2024 10:32:32 06/07/20 24 05/16/2024 cole r monit or No observ ation record ed. [facility] Not Available 2023 14:40:16 09/04/20 24 09/03/2024 CT, chest + abdom en + pelvi s, w/o contr ast No observ ation record ed. [address], [place], [address], 09/04/2024 16:33:27 09/17/20 24 09/17/2024 XR, chest , 2 view No observ ation record ed. [address], [place], [address], 09/19/2024 19:04:41 11/05/19 25 11/05/2024 PET, skull base to mid-t high No observ ation record ed. [address], [place], [address], 11/06/2024 13:13:38 11/09/19 25 11/09/2024 XR, foot, 3 or more view No observ ation record ed. [address], [place], [address], 11/19/2024 17:24:11 11/10/19 25 11/09/2024 XR, foot, 2 view No observ ation record ed. [address] [address], [place], [address], 11/19/2024 17:24:12 11/10/19 25 11/10/2024 MRI, ankle + foot, w/o contr ast No observ ation record ed. [address] [address], [place], [address], 11/19/2024 17:24:12 01/08/20 25 01/07/2025 ct guide d needl e biops y (PROC ) No observ ation record ed. [address] [address], [place], [address], 01/07/2025 17:03:56 Result Notes None recorded. Problems Name Problem SNOMED Code Status Onset Date Resolution Date Notes Provider Name and Address Organization Details Recorded Time Irregular heart beat 748347434 Active 2019 Tatianna Frank [place] null, [place] [facility] 0 15:31:42 Bilateral hearing loss 85617959 Active 2021 INGE HACKETT Attn: Hema miri,[address] [facility], [place], [address], [place] [facility] 2 10:54:39 Renal cell carcinoma 308248617 Active 2021 Right, found 04/26/22 INGE HACKETT Attn: Accountmargarita chery,[address] [facility], [place], [address], [place] [facility] 3 10:05:14 Essential hypertensi on 11508678 Active 2021 INGE HACKETT Attn: Accountmargarita chery,[address] [facility], [place], [address], [place] [facility] 2 10:57:01 Tobacco dependence syndrome 95670373 Active 2021 INGE HACKETT Attn: Accountmargarita g,[address] [facility], [place], [address], [place] [facility] 2 13:06:45 Alcohol dependence 49798043 Active 2021 INGE HACKETT Attn: Accountmargarita chery,[address] [facility], [place], [address], [place] [facility] 2 13:06:52 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 318742535 Active 2021 INGE HACKETT Attn: Accountmargarita chery,[address] [facility], [place], [address], [place] [facility] 2 11:31:07 Umbilical hernia 625933119 Active 2021 INGE HACKETT Attn: Accountmargarita chery,[address] [facility], [place], [address], [place] [facility] 2 11:06:26 Excision of right kidney Active 2021 removed 05/10/22 INGE HACKETT Attn: Accountin g,[address] [facility], [place], [address], [place] [facility] 2 21:09:42 Neuropathy 700149718 Active 2021 INGE HACKETT Attn: Accountmargarita g,[address] [facility], [place], [address], [place] [facility] 2 18:40:51 Chronic neck pain 291129493349 7 Active 2021 INGE HACKETT Attn: Hema chery,[address], [place], [address], [place] [facility] 2 18:41:02 Chronic kidney disease stage 5 405645090 Active 2021 INGE HACKETT Attn: Hema chery,[address], [place], [address], [place] [facility] 2 21:12:11 Screening for malignant neoplasm of colon Active 2022 due for repeat 2025 INGE HACKETT Attn: Hema chery,[address], [place], [address], [place] [facility] 3 14:56:10 End-stage renal disease 85989491 Active 2023 INGE HACKETT Attn: Hema chery,[address] [facility], [place], [address], [place] [facility] 4 17:24:47 Problem Notes None recorded. Procedures Surgical History None recorded. Imaging Results Imaging Date Name Status LastModified by [facility] Details LastModified Time 12/05/2022 XR, chest, 2 view completed [address], [address], 12/06/2022 11:38:43 03/06/2023 CT, abdomen + pelvis, w/o contrast completed [address], [address], 03/06/2023 12:46:38 05/23/2023 PET, skull base to mid-thigh completed [address], [address], 06/13/2023 11:37:40 06/14/2023 ct guided needle biopsy (PROC) completed [address], [address], 06/15/2023 11:13:30 06/21/2023 XR, chest, 2 view completed [address], [place], [address], 06/23/2023 10:57:46 10/25/2023 lab* completed [address], [place], [address], 10/26/2023 11:54:38 10/25/2023 lab* completed [address], [place], [address], 10/26/2023 11:54:45 10/25/2023 lab* completed [address], [place], [address], 10/26/2023 11:54:52 10/25/2023 US, echocardiogra m, transthoracic , complete, w/ color flow completed [address], [place], [address], 11/03/2023 15:21:02 02/27/2024 CT, chest, w/o contrast completed [address], [place], [address], 02/28/2024 10:32:32 05/16/2024 holter monitor completed [facility] Information not available 06/07/2024 14:40:16 09/03/2024 CT, chest + abdomen + pelvis, w/o contrast completed [address], [place], [address], 09/04/2024 16:33:27 09/17/2024 XR, chest, 2 view completed [address], [place], [address], 09/19/2024 19:04:41 11/05/2024 PET, skull base to mid-thigh completed [address] [address], [place], [address], 11/06/2024 13:13:38 11/09/2024 XR, foot, 3 or more view completed [address], [place], [address], 11/19/2024 17:24:11 11/09/2024 XR, foot, 2 view completed [address], [place], [address], 11/19/2024 17:24:12 11/10/2024 MRI, ankle + foot, w/o contrast completed [address] [address], [place], [address], 11/19/2024 17:24:12 01/07/2025 ct guided needle biopsy (PROC) completed [address], [address], 01/07/2025 17:03:56 Procedure Notes None recorded. Medical Equipment None [...] Updated DateTime 3 182.88 cm 28.1 kg/m2 72568.0 2 g 99 % 99 % 86 /min 140 mm[Hg] 72 mm[Hg] Opal Pugh MA [facility] 3 10:01:06 Date Recorded Respiratory rate Systolic blood pressure Diastolic blood pressure Provider Name and Address Organization Details Last Updated DateTime 10/24/2022 18 /min 128 mm[Hg] 72 mm[Hg] INGE HACKETT Attn: Accounting, [address] [place], [address], [facility] 10/24/2022 10:23:32 Date Recorded Body height Body mass index (BMI) Body weight Oxygen saturation Oxygen saturation in Arterial blood by Pulse oximetry Heart rate Respiratory rate Body temperature Systolic blood pressure Diastolic blood pressure Provider Name and Address Organization Details Last Updated DateTime 3 182.88 cm 29.2 kg/m2 70422.7 6 g 95 % 95 % 74 /min 16 /min 97.5 [degF] 140 mm[Hg] 74 mm[Hg] Cammy Nieves CMA [facility] 3 10:59:30 Date Recorded Systolic blood pressure Diastolic blood pressure Provider Name and Address Organization Details Last Updated DateTime 12/19/2022 138 mm[Hg] 70 mm[Hg] INGE HACKETT Attn: Accounting, [place], [address], [facility] 12/19/2022 11:24:43 Date Recorded Body height Body mass index (BMI) Body weight Oxygen saturation Oxygen saturation in Arterial blood by Pulse oximetry Heart rate Body temperature Systolic blood pressure Diastolic blood pressure Provider Name and Address Organization Details Last Updated DateTime 3 182.88 cm 29.3 kg/m2 41618.3 5 g 98 % 98 % 72 /min 98.3 [degF] 165 mm[Hg] 72 mm[Hg] Cammy Nieves CMA [facility] 10:06:40 Date Recorded Respiratory rate Systolic blood pressure Diastolic blood pressure Provider Name and Address Organization Details Last Updated DateTime 06/13/2023 18 /min 150 mm[Hg] 72 mm[Hg] INGE HACKETT Attn: Accounting, [address] [place], [address], [facility] 06/13/2023 10:32:42 Date Recorded Body height Body mass index (BMI) Body weight Oxygen saturation Oxygen saturation in Arterial blood by Pulse oximetry Heart rate Systolic blood pressure Diastolic blood pressure Provider Name and Address Organization Details Last Updated DateTime 3 182.88 cm 27.5 kg/m2 20170.2 5 g 98 % 98 % 65 /min 179 mm[Hg] 73 mm[Hg] Cathi Coyle MA [facility] 11:07:12 Date Recorded Respiratory rate Systolic blood pressure Diastolic blood pressure Provider Name and Address Organization Details Last Updated DateTime 08/04/2023 18 /min 140 mm[Hg] 70 mm[Hg] INGE HACKETT Attn: Accounting, [address] [place], [address], [facility] 08/04/2023 11:31:36 Date Recorded Body height Body mass index (BMI) Body weight Oxygen saturation Oxygen saturation in Arterial blood by Pulse oximetry Heart rate Respiratory rate Systolic blood pressure Diastolic blood pressure Provider Name and Address Organization Details Last Updated DateTime 5 182.88 cm 26.7 kg/m2 74755.7 g 96 % 96 % 102 /min 20 /min 125 mm[Hg] 78 mm[Hg] Opal Pugh MA [facility] 16:45:31 Date Recorded Heart rate Provider Name an d Address Organization Details Last Updated DateTime 12/24/2024 90 /min INGE HACKETT Attn: Accounting [facility], [place], [address], [facility] 12/30/2024 09:11:19 Social History Question Answer Notes LastModified by Organizat ion Details LastModified Time Tobacco Smoking Status Current Every Day Smoker Tatianna Frank MA null, [facility] 12/28/2020 16:47:06 What Is Your Level Of [...] Of Your Most Recent Tobacco Screening? 12/24/2024 [email or web address] Information not available 12/24/2024 What Is Your [...] Date Was Tobacco Cessation Counseling Provided? 12/24/2024 [email or web address] Information not available 12/24/2024 How Many Years [...] Response Coronary Artery Disease N Other N Atrial Fibrillation N High Blood Pressure Y Thyroid Problems N Kidney or Bladder Problems N GI Problems N Depression N COPD N Blood Clots N Eating Disorder N Skin Problems N Anemia N Heart Attack ([place]) N Anxiety Disorder N Diabetes N Muscle, [...] 30 mcg/0.3 mL dose, diann-sucrose 2 completed Cathi Coyle [place], [place] [facility] 12/02/2024 09:18:37 Tdap 2 completed Cathi C[place], [place] [facility] 12/02/2024 09:18:37 Influenza, split virus, quadrivalent, PF 0 completed Cathi C[place] [facility] 12/02/2024 09:18:37 Influenza, split virus, quadrivalent, PF 1 completed Cathi C[place] [facility] 12/02/2024 09:18:37 Influenza, split virus, quadrivalent, PF 3 completed INGE HACKETT Attn: Accounting,[address] [facility], [place], [address], [place] [facility] 10/24/2022 13:53:49 Pneumococcal conjugate PCV20, polysaccharide [id number] conjugate, adjuvant, PF 3 completed INGE HACKETT Attn: Accounting,[address] [facility], [place], [address], [place] [facility] 10/24/2022 13:53:49 Influenza, split virus, quadrivalent, PF 3 completed INGE HACKETT Attn: Accounting,[address] [facility], [place], [address], [place] [facility] 08/04/2023 12:34:19 Past Encounters Encounter ID Performer Location Encounter Start Date Encounter Closed Date Diagnosis/Indication Diagnosis SNOMED-CT Code Diagnosis ICD10 Code Diagnosis Note [id number] Bev Chandler MD [facility] [address] [place] [address] 02/18/2020 11:32:38 02/24/2020 06:10:37 Essential hypertension 65224466 I10 174/117, pulse 145; patient was asked to call us with follow up blood pressure next week. [id number] Bev Chandler MD [facility] [address] [place] [address] 12/28/2020 08:09:29 12/31/2020 10:17:06 Essential hypertension 04089089 I10 174/117, pulse 145; patient was asked to call us with follow up blood pressure next week. Adult [facility] examination 321144908 Z00.00 [id number] INGE HACKETT [facility] [address] [place] [address] 12/28/2021 13:45:33 12/29/2021 10:48:07 Essential hypertension 27444612 I10 routine labspt taking lasix, unsure of why he is takingwill check kidney function today to see if can dc Screening for malignant neoplasm of colon 995253216 Z12.11 constipati on occurs every 2-3 daysno blood in stoolshas not had colon cancer screeningd iscussed cologuard vs colonoscop ysent for GI consult with colonoscop lizbeth del rosario increasing fluid intake, high fiber foods Neuropathy 915417629 G62 .9 chronic to bilateral feet x30 yrsdecreas ed sensation to ball of right foot up to toes and unable to feel sensation from ball of L foot up to toesEMG Onychomyco sis of toenails 473505312 B35.1 severe to all toespodiat ry referral Depression screening 171 452603 Z13.31 PHQ 0 Pre-surger y evaluation 522494613 Z01.818 cataract surgery scheduled 03/07/22eva l has to be completed no more than 30 days before surgeryadv ised pt to f/u in 6 wks to complete form [id number] INGE HACKETT [facility] [address] [place] [address] 02/21/2022 09:43:49 02/22/2022 10:28:59 Pre-surgery evaluation 671554038 Z01.818 02/21/22: cataract surgery scheduled 03/07/22PEx - nlcomplete d medical clearance form and faxed 12/28/21:ca taract surgery scheduled 03/07/22eva l has to be completed no more than 30 days before surgeryadv ised pt to f/u in 6 wks to complete form Essential hypertension 03816953 I10 02/21/22: BP controlled todayno med changesreq uested records from nephrology and urology 12/30/21: Cr 2.79- advised pt of lab results, CKD stage 4 and rec'd pt go to hospital. [place] was amendable [place] go [place] 12/28/21:casa beckham labspt taking lasix, unsure of why he is takingwill check kidney function today to see if can dc Neuropathy 861309512 G62 .9 02/21/22:pt has upcoming EMGs scheduled 12/28/21:ch ronic to bilateral feet x30 yrsdecreas ed sensation to ball of right foot up to toes and unable to feel sensation from ball of L foot up to toesEMG Onychomyco sis of toenails 106859869 B35.1 02/21/22:turner nted off referral and encouraged pt to call to schedule appt 12/28/21:se kathy to all toespodiat ry referral Screening for malignant neoplasm of colon 533771898 Z12.11 02/21/22: pt reports constipati on has improved, increasing water intake and high fiber foodsprint ed off referral and encouraged pt to call to schedule appt 12/28/21:co nstipation occurs every 2-3 daysno blood in stoolshas not had colon cancer screeningd iscussed cologuard vs colonoscop ysent for GI consult with colonoscop yencjorden d increasing fluid intake, high fiber foods Chronic ki dney disease stage 4 995869681 N18.4 Cr 2.79follow ing with Dr. Mcnulty (Nephrolog y) and Dr. Collins (Urology)M RI showed 6.1 cm mass to R kidney consistent with renal cell carcinomap t states that he is waiting to see if kidney function improves, if not he will have to go on dialysis or have R kidney removedreq uested records [id number] INGE HACKETT [facility] [address] [place] [address] 04/26/2022 10:13:50 04/27/2022 10:16:08 Chronic kidney disease stage 4 833292384 N18.4 05/10/22: R nephrectom y on 05/10/[address] Mayberry (Urology [facility])follow ing with Dr. Mcnulty (Nephrolog y)spoke with [...] R kidney removedreq uested records Essential hypertension 34466801 I10 04/26/22: BP 166/86did not take BP medication s yethas been out of meds x5 dayswill refill, hold lasix 02/21/22: BP controlled todayno med changesreq uested records from nephrology and urology 12/30/21: Cr 2.79- advised pt of lab results, CKD stage 4 and rec'd pt go to hospital. he was amendable to go to [place] 12/28/21:casa beckham labspt taking lasix, unsure of why he is takingwill check kidney function today to see if can dc Neuropathy 571809626 G62 .9 04/26/22:do ne 04/14/22wil l request records 02/21/22:pt has upcoming EMGs scheduled 12/28/21:ch ronic to bilateral feet x30 yrsdecreas ed sensation to ball of right foot up to toes and unable to feel sensation from ball of L foot up to toesEMG Umbilical hernia 8687564 07 K42.9 PEx- non-reduci ble, non-tender , not strangulat edremoval 05/10/[address] Benjamin Bilateral hearing loss 66467258 H91.93 c/o chronic tinnitushe ars mumbling when in conversati ons with multiple people, hard to focus hearingfam felecia told him he has hearing issuesPEx- bilateral EACs clear, TMs nlwill order hearing screen at f/u Depression screening 171 815978 Z13.31 PHQ 0 Renal cell carcinoma 702 472350 C64.9 MRI showed 6.1 cm mass to R kidney consistent with renal cell carcinomaR nephrectom y on 05/10/22 [id number] Darci milner MD [facility] [address] [place] [address] 05/25/2022 11:41:52 05/26/2022 13:24:04 Renal cell carcinoma 247686213 C64.9 05/25/22: pt reports surgery went wellpathol ogy study showed 7.5 cm renal cell carcinoma, R nephrectom y, all margins negative for invasive carcinomah as f/u with surgeon tomorrow 04/26/22:MR I showed 6.1 cm mass to R kidney consistent with renal cell carcinomaR nephrectom y on 05/10/22 Chronic ki dney disease stage 4 596827099 N18.4 05/26/22:sp marzena with Kaay Shahid, pt's sister at 11:15 [address] [...] R kidney removedreq uested records Essential hypertension 43713712 I10 05/25/22:ca n take ASA for primary [...] hospital. he was amendable to go to [place] 12/28/21:casa beckham labspt taking lasix, unsure of why he is takingwill check kidney function today to see if can dc Umbilical hernia 0049562 07 K42.9 05/25/22:merchant d f/u with surgeon yesterday, mesh is in place, minor swelling, not concerned 04/26/22:PE x- non-reduci ble, non-tender , not strangulat edremoval 05/10/[address] Benjamin Neuropathy [id number] G62 .9 05/25/22:EM G showed severe motor [...] foot up to toesEMG Bilateral hearing loss 49783123 H91.93 05/25/22:re georges for hearing screenprin madie off referral and encouraged pt to call to schedule appt 04/26/22:c/ o chronic tinnitushe ars mumbling when in conversati ons with multiple people, hard to focus hearingfam felecia told him he has hearing issuesPEx- bilateral EACs clear, TMs nlwill order hearing screen at f/u Depression screening 171 067509 Z13.31 PHQ 0 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 [id number] M21.6X9 05/26/22:di scussed results with pt and sisterXR L foot showed hypertroph ic bony fusion at 1st MTP joint, arterial calcificat ionspt denies any pain or issues with walkingwil l refer to podiatry 05/25/22:L MTP joint enlarged, unable to extend L big toeno pain Chronic neck pain 203738 4058 107 M54.2 05/16/22: discussed results with pt [...] spineorder ed XR C spine Alcohol dependence 54135 003 F10.20 drinking 1 pint of cheap vodka per day x3 yrsstopped [address] to [address] is requesting medication to help with withdrawal sxdiscusse d that pt is not showing withdrawal symptoms, out of withdrawal window at this timeoffere d outpatient treatment, pt refused at this time [id number] INGE HACKETT [facility] [address] [place] [address] 06/24/2022 09:46:21 06/28/2022 10:02:50 Essential hypertension 50491016 I10 06/24/22:BP check 132/74BP at home 120s-150s/ [...] hospital. he was amendable to go to [place] 12/28/21:casa beckham labspt taking lasix, unsure of why he is takingwill check kidney function today to see if can dc [id number] INGE HACKETT [facility] [address] [place] [address] 07/01/2022 10:32:41 07/05/2022 09:24:24 Chronic kidney disease stage 4 817668800 N18.4 07/01/22:co mpleted kidney smart classfollo wing [...] have R kidney removedreq uested records Neuropathy 714709446 G62 .9 07/01/22:ne uro appt in 1 [...] foot up to toesEMG Chronic neck pain 156899 0591 107 M54.2 07/01/22:ne uro appt in 1 [...] C spine 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 he was amendable to go to [place] 12/28/21:ro utine labspt taking lasix, unsure of why he is takingwill check kidney function today to see if can dc Bilateral hearing loss 28436077 H91.93 07/01/22:horacio ivan with audiologis t who [...] TMs nlwill order hearing screen at f/u [id number] INGE HACKETT [facility] [address] [place] [address] 08/15/2022 10:51:52 08/16/2022 12:08:52 Essential hypertension 36346459 I10 08/15/22: BP 138/84took meds 1 hour [...] hospital. he was amendable to go to [place] 12/28/21:casa meyerne labspt taking lasix, unsure of why he is takingwill check kidney function today to see if can dc Neuropathy 255757931 G62 .9 08/15/22: neuro told pt, neuropathy is likely due to alcohol useDr. Alegria at [facility] (Neurology ), did blood work, pt has [...] foot up to toesEMG Chronic neck pain 438616 6753 107 M54.2 08/15/22:n euro told pt not [...] ed XR C spine Bilateral hearing loss 39413627 H91.93 08/15/22:i nsurance will not cover hearing aideshas appt to get fitted for hearing aides tomorrow [facility] he has to buy hearing aides OTC [...] order hearing screen at f/u Alcohol dependence 42479 003 F10.20 08/15/22:4 ounces/day trying to cut [...] time Chronic ki dney disease stage 5 723603835 N18.5 08/15/22:S aw nephro 08/02/22:h old KERI/ARB given severity of CKD and K, low protein dietdiscus sed low protein/lo w potassium dietrefer to Vascular surgery for vein mapping, pt wants to do peritoneal dialysisha s appt on 09/02/22 at [facility] 07/01/22:co mpleted kidney smart classfollo wing with [...] removedreq uested records Tobacco de pendence syndrome 13950351 F17.200 1/2 ppd currentlyw as smoking 1.5 ppd to 2 ppd before kidney surgerytri al nicotine patches Chronic ki dney disease stage 4 654630501 N18.4 07/01/22:co mpleted kidney smart classfollo wing [...] or have R kidney removedreq uested records [id number] INGE HACKETT [facility] [address] [place] [address] 10/24/2022 09:47:18 10/26/2022 09:28:07 Chronic kidney disease stage 5 708471964 N18.5 10/24/22:fis xiao R forearm, placed 09/20/22not [...] peritoneal dialysisha s appt on 09/02/22 at [facility] 07/01/22:co mpleted kidney smart classfollo wing with [...] R kidney removedreq uested records Essential hypertension 77375998 I10 10/24/22:BP 128/72refi ll meds 08/15/22:B P [...] hospital. he was amendable to go to [place] 12/28/21:casa beckham labspt taking lasix, unsure of why he is takingwill check kidney function today to see if can dc Bilateral hearing loss 67181103 H91.93 10/24/22:rec 'd hearing aide to L ear 08/15/22:i nsurance will not cover hearing aideshas appt to get [facility] [...] nlwill order hearing screen at f/u Neuropathy 944527168 G62 .9 10/24/22:has f/u in 1 mo 08/15/22: neuro told pt, neuropathy is likely due to alcohol useDrJennyfer Alegria at [facility] (Neurology ), did blood work, pt has [...] up to toesEMG Tobacco de pendence syndrome 82874943 F17.200 10/24/22:unk nown if can try wellbutrin due to CKDover 1/2 ppd 08/15/22:1 /2 ppd currentlyw as smoking 1.5 ppd to 2 ppd before kidney surgerytri al nicotine patches Alcohol dependence 82570 003 F10.20 10/24/22:sti ll drinking 4 ounces/day [...] this time Administra tion of influenza vaccine 62689305 Z23 Screening for malignant neoplasm of colon 628971109 Z12.11 10/24/22:ref er for colonoscop y 02/21/22: [...] increasing fluid intake, high fiber foods Overweight 533431846 E66 .3 discussed increasing exercise and healthier food options Depression screening 171 319463 Z13.31 PHQ 0 [id number] INGE HACKETT [facility] [address] [place] [address] 12/19/2022 10:53:06 12/19/2022 11:28:41 Chronic kidney disease stage 5 680026467 N18.5 12/19/22:rob d trying to hold off [...] peritoneal dialysisha s appt on 09/02/22 at [facility] 07/01/22:co mpleted kidney smart classfollo wing with [...] R kidney removedreq uested records Essential hypertension 25175954 I10 12/19/22:BP 138/70 10/24/22:BP 128/72refi ll meds [...] hospital. he was amendable to go to [facility] 12/28/21:ro utine labspt taking lasix, unsure of why he is takingwill check kidney function today to see if can dc Tobacco de pendence syndrome 53841622 F17.200 12/19/22:has n't tried yet wellbutrin encouraged to trial for smoking cessation 10/24/22:unk nown if can try wellbutrin due to CKDover 1/2 ppd 08/15/22:1 /2 ppd currentlyw as smoking 1.5 ppd to 2 ppd before kidney surgerytri al nicotine patches Alcohol dependence 33147 003 F10.20 12/19/22:unc hangedrefu sed outpatient tx [...] time Screening for malignant neoplasm of colon 598100314 Z12.11 12/19/22:com pleted 11/14/22, repeat in 3 [...] increasing fluid intake, high fiber foods Fatigue 35213267 R53.83 x1 motakes daily Vit T1zvpijuj 6 days/weeks tarted lasix 2 wks ago and waking up 3x/nightSO B worse with laying flat and with exertionde scribes as tired gai daysi 8 lbs in 1 moPEx- nlcheck vitamins and probnpUS echo Depression screening 171 336335 Z13.31 PHQ 0 [id number] INGE HACKETT [facility] [address] [place] [address] 06/13/2023 09:57:00 06/15/2023 12:25:24 Chronic kidney disease stage 5 367205228 N18.5 06/13/23:st ill holding off on dialysisha [...] peritoneal dialysisha s appt on 09/02/22 at [facility] 07/01/22:co mpleted kidney smart classfollo wing with [...] removedreq uested records Tobacco de pendence syndrome 99656610 F17.200 06/13/23:1 ppdwellbut rin caused testicles to swellpatch es make him itchnot ready to quit 12/19/22:has n't tried yet wellbutrin encouraged to trial for smoking cessation 10/24/22:unk nown if can try wellbutrin due to CKDover 1/2 ppd 08/15/22:1 /2 ppd currentlyw as smoking 1.5 ppd to 2 ppd before kidney surgerytri al nicotine patches Alcohol dependence 93321 003 F10.20 06/13/23:dr muse 2 ounces of [...] pt refused at this time Essential hypertension 12227267 I10 06/13/23:BP 150/70took meds 1 hr agoadvised [...] hospital. he was amendable to go to [facility] 12/28/21:ro utine labspt taking lasix, unsure of why he is takingwill check kidney function today to see if can dc Pelvic lymphadenopathy 672114508 R59.0 found on PET scan 05/23/23:non -specific mild L pelvic LAD, prostatome daija with small focus of asymmetric increased uptake at posterior left prostate, correlate with PSA level, cholelithi asis, unchanged 5.1 cm infrarenal AAAfollowi ng with Oncologyha s another scan tomorrow Diarrhea 87673488 R19.7 x1 trevon the morning and at nightinter mittentloo seno concerning sxno new foods or medsPEx- nl- Increase your fluid intake to replace losses.- BRAT diet- trial anti-diarr heal and foods that bulk stools- Avoid milk, greasy foods and anything that doesn t agree with youif symptoms do not improve in 2 wks, make f/u appt, will refer to GI Depression screening 171 917266 Z13.31 PHQ 0 [id number] INGE HACKETT [facility] [address] [place] [address] 08/04/2023 10:47:09 08/14/2023 11:09:17 Chronic kidney disease stage 5 293432527 N18.5 08/04/23:s till holding off on dialysisha [...] legshas [facility] 10/24/22:fis xiao [...] peritoneal dialysisha s appt on 09/02/22 at [facility] 07/01/22:co mpleted kidney smart classfollo wing with [...] R kidney removedreq uested records Essential hypertension 03136457 I10 08/04/23:B P 179/73, 140/70take s meds [...] hospital. he was amendable to go to [facility] 12/28/21:ro utine labspt taking lasix, unsure of why he is takingwill check kidney function today to see if can dc Depression screening 171 346562 Z13.31 PHQ 0 Pelvic lymphadenopathy 878590924 R59.0 08/04/23:p er patient- biopsy was negativere peat CT scan Oct 2023 and f/u with oncology in Nov 2023 06/13/23:fo und on PET scan 05/23/23:non -specific mild L pelvic LAD, prostatome daija with small focus of asymmetric increased uptake at posterior left prostate, correlate with PSA level, cholelithi asis, unchanged 5.1 cm infrarenal AAAfollowi ng with Oncologyha s another scan tomorrow Alcohol dependence 77080 003 F10.20 08/04/23:w ants to quitdoes not [...] at this time Tobacco de pendence syndrome 48667215 F17.200 08/04/23:1 /2 ppd to 1 ppd [...] nicotine patches Administra tion of influenza vaccine 85774215 Z23 3001911 INGE HACKETT [facility] [address] [place] [address] 12/24/2024 16:36:09 12/24/2024 17:18:59 End-stage renal disease 61220218 N18.6 refill [facility] Tues, Thurs, Sat Smoker 91197232 F17.200 still smoking 1/2 ppd Essential hypertension 62265413 I10 BP 125/78refi ll meds Hyperlipidemia 07177302 E78.5 refill Chronic ob structive pulmonary disease 95392511 J44.9 refill Hospital i npatient stay within past 30 days 3359237786 106 Z76.89 Admitted to [facility] in [place] 10/24/24 to 11/26/24 To dd Lakesha Sloan is a 64 y.o. male with a pertinent history significan t for ESRD on HD TTS, AAA, DVT, persistent A-fib, HTN, adrenal mass/pulmo nary nodules, renal cell carcinoma, peripheral vascular disease, who presented with initially to outside hospital ([facility]) for evaluation of necrotic left foot. Due to gangrene of the left foot patient was transferre d to [facility] for vascular surgery evaluation .Patient was treated [...] clinic on discharge. Renal cell carcinoma 702 279027 C64.9 12/25/24: OV with Dr. Carrasco (Oncology) [...] nephrectom y on 05/10/22 Depression screening 171 037274 Z13.31 PHQ 0 Health Concerns Section Related Observation LastModified by Organization Detai ls LastModified Time None Recorded Concern Status LastModified by Organization Details LastModified Time None Recorded Advance Directives Directive None Recorded Payers Encounter Date Sequence Insurance Name Policy Number Policy Simons Covered Member ID Simons Member ID Guarantor Name 10/24/2022 2 *SELF PAY* To micah Sloan 10/24/2022 1 [employer] (PPO) [id number] Kar Sloan [id number] Kar Sloan 12/19/2022 1 [facility] [employer] - [facility] (PPO) Kar Sloan [id number] Kar Sloan 06/13/2023 1 [place] [id number] Kar Sloan [id number] Kar Sloan 08/04/2023 1 [place] [id number] Kar Sloan [id number] Kar Thackerner 12/24/2024 1 [place] [id number] Kar Sloan [id number] Kar Sloan Notes Date Note Type Note Provider Name and Address Organization Details Recorded Time 10/24/2022 text/html Pt presents for f/u. Reports he had fistula placed to R arm on 09/20/22. He has f/u with nephrology about dialysis in 1 mo. INGE HACKETT Attn: Accounting[address] [place], [address], [place] [facility] 10/24/2022 13:56:30 12/19/2022 text/html Pt presents for [...] at rest. INGE HACKETT Attn: Accounting,[address], [place], [address], [place] [facility] 12/19/2022 21:09:16 06/13/2023 text/html Pt presents for [...] HACKETT Attn: Accounting,[address], [place], [address], [place] [facility] 06/13/2023 11:41:27 08/04/2023 text/html [...] HACKETT Attn: Accounting,[address], [place], [address], [place] [facility] 08/04/2023 12:39:28 12/24/2024 text/html Pt presents for FMLA paperwork. Last OV with PCP 07/2023. 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 He was admitted to [facility] 11/13/24, transferred to [facility] and discharged 11/26/24. He is following closely with Dr. Luciano (Podiatry), Dr. Carrasco (Oncology), Dr. Dykes (Vascular), and Dr. Mcnulty (Nephrology). 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 Pt completed PT and has home health to change dressings on his feet. Requesting FMLA for 12 wks. INGE HACKETT Attn: Accounting[address] [facility], [place], [address], [place] [facility] 12/30/2024 09:20:46
--- OUTSIDE RECORDS SUMMARY | 2025-01-31 10:10 | XMS_ITS | Encounter Summary ---
Author Organization [facility] Address [address] [place] [address] Care Team Providers Care Mold Stamper And Repairer Name Role Phone Gia Clark PA-C Primary Care Provider Encounter Details Date Type Department Care Team (Late st Contact Info) Description 06/14/2023 Lab Requisition [facility] - Pathology Lab [address] [place] [address] Cristiano Joe MD [facility] [address] [address] Generalized enlarged lymph nodes Social History Tobacco Use Types Packs/Day Years Used Date Smoking Tobacco: Never Assessed Sex and Gender Information Value Date Recorded Sex Assigned at Not on file Legal Sex Male 8:51 AM CDT Gender Identity Not on file [...] AM CDT) Case Report Flow Cytometry Case: [id number] Authorizing Provider: Cristiano Joe MD Collected: 06/14/2023 10:46 AM Ordering Location: [facility] Pathology Lab Received: 06/14/2023 04:46 PM Pathologist: Jamel Ashby MD Specimen: Lymph Node, LEFT PELVIC AREA 06/15/2023 8:52 AM [facility] PATHOLOGY LAB Final Diagnosis Lymph node, left pelvic area, flow cytometric immunophenotypic analysis: - Insufficient hematopoietic cells for analysis. - See interpretation. 06/15/2023 8:52 AM [facility] Flow Cytometry Interpretation Preliminary characterization of the lymph node specimen demonstrates too few hematopoietic cells for flow cytometric analysis. A cytospin prepared from the flow cytometry specimen is reviewed for director quality systems purposes. Flow cytometry is not performed. 06/15/2023 8:52 AM [facility] PATHOLOGY LAB Flow Cytometry Results Too few hematopoietic cells for flow cytometric analysis. 06/15/2023 8:52 AM [facility] Reason for test Generalized enlarged lymph nodes 785.6 06/15/2023 8:52 AM [facility] Client Specimen ID # [id number] 06/15/2023 8:52 AM [facility] Pathologist Location at [facility] 06/15/2023 8:52 AM [facility] Disclaimer Test performed at [facility], [address] [place] [address], [address]. *The established laboratory minimum viability is 70%. [...] high complexity clinical testing. 06/15/2023 8:52 AM [facility] U PATHOLOGY LAB Embedded Images 8:52 AM T [facility] PATHOLOGY LAB Pathology/Cytolo gy ENTIRE LYMPH NODE / Unknown 06/14/2023 10:46 AM CDT 06/14/2023 4:46 PM CDT Cristiano Joe MD LAB - PATHOLOGY/CYTOLOGY ORDERAB LES Final Result [facility] PATHOLOGY LAB [address] [facility]. [address] [phone] documented in this encounter Visit Diagnoses Diagnosis Generalized enlarged lymph nodes Enlargement of lymph nodes documented in this encounter Care Teams Mold Stamper And Repairer Relationship Specialty Start Date End Date Gia Clark PA-C [address] [place] [address] PCP - General 05/24/22 documented as of this encounter
--- OUTSIDE RECORDS SUMMARY | 2025-01-31 10:10 | XMS_ITS | Clinical Summary ---
Author Organization [facility] Address [address] [facility] [place] [address] Care Team Providers Care Logistics Project Manager Name Role Phone Gia Clark PA-C Primary Care Provider Source Comments [facility],non-owned Affiliates and Associated Physician Practices is amultiple site organization consisting of ambulatory clinics and hospital sitesin [place], [place], [place] and [place]. This disclosure is being madepursuant to the Care Everywhere program and may not contain all information available regarding this patient. Last updated 18.[facility] Social History Tobacco Use Types Packs/Day Years [...] 2010 COVID-19 VACCINE (2023-2 5 season) 2024 DEPRESSION SCREENING 10/16/2024 INFLUENZA VACCINE (Season Ended) 2025 LIPID TESTING 11/21/2029 11/21/2024, 11/16/2024 Respiratory Syncytial [...] patient's age to complete this topic Insurance [facility] * Guarantor: KAR SLOAN Account Type Relation to Patient Date of Phone Billing Address Personal/Family Spouse Care Teams Logistics Project Manager Relationship Specialty Start Date End Date Gia Clark PA-C [address] [place] [address] PCP - General 05/24/22
--- OUTSIDE RECORDS SUMMARY | 2025-01-31 10:10 | XMS_ITS | Continuity of Care Document ---
Author Organization [facility] Address [address] [place] [address] [address] [facility] [address] [place] [address] Phone Care Team Providers Care Area Development Manager Name Role Phone Marcos OD, Sebas Unavailable Unavailable Advance Directives Directive Yes / No Effective Date File Name No Information Encounters Encounter Description Practice Location Reason(s) For Visit Diagnoses Date Provider Providers Copied on Encounter [facility], [address] [place] [address] [address] [place], [place], [address], [place] tel:[phone] [facility] No Information Aug-0 4-200 5 Marcos OD Sebas. [address], [place], [address], [place]. tel:[phone] Family History Family Member Type Diagnosis Age At Onset No Information Payers Payer name Insurance type Covered alliance party ID Authoriza tijean(s) [facility] CI [id number] Social History Type Description Quantity Date Captured [...]
[2025-01-31 10:55] LABS: Basophils Absolute Auto 0.1 K/mm3 (0.0-0.1); Basophils Percent Auto 0.8 % (0.2-1.2); Eosinophils Absolute Auto 0.2 K/mm3 (0-0.3); Eosinophils Percent Auto 3.8 % (0-4.4); Hematocrit 31.7 % (42.0-52.0); Hemoglobin 10.2 g/dL (14.0-18.0); Immature Granulocyte Absolute 0.02 K/mm3 (0.00-0.031); Immature Granulocyte Percent A 0.3 % (0-0.5); Lymphocytes Absolute Auto 0.83 K/mm3 (0.9-3.2); Lymphocytes Percent Auto 13.3 % (18.3-44.2); Mean Corpuscular HGB Conc 32.2 g/dl (32-36); Mean Corpuscular Hemoglobin 35.5 pg (26-34); Mean Corpuscular Volume 110.5 fl (80-100); Mean Platelet Volume 9.2 fl (7.4-10.4); Monocytes Absolute Auto 0.9 K/mm3 (0.1-0.6); Monocytes Percent Auto 13.6 % (2.6-8.5); Neutrophils Absolute Auto 4.3 K/mm3 (1.3-6.7); Neutrophils Percent Auto 68.2 % (45.5-73.1); Platelet Count Result 220 k/mm3 (150-375); Red Blood Count 2.87 M/mm3 (4.6-6.20); Red Cell Distribution Width 16.5 % (11.5-14.5); White Blood Count 6.3 K/mm3 (4.5-10.0)
[2025-01-31 11:09] LABS: Partial Thromboplastin Time 27.3 Seconds (22.3-36.8)
[2025-01-31 11:10] LABS: Anion Gap 13 mmol/L (4-12); Blood Urea Nitrogen 29 mg/dL (9-20); Calcium 9.7 mg/dL (8.4-10.2); Carbon Dioxide 27 mmol/L (22-30); Chloride 96 mmol/L (98-107); Estimated Glomerular Filt Rate 9; Glucose 86 mg/dL (65-110); Potassium 3.8 mmol/L (3.4-5.0); Sodium 136 mmol/L (137-145)
[2025-01-31 11:26] LABS: Hypochromasia 1+; Platelet Estimate Adequate (Adequate)
[2025-01-31 11:27] LABS: Macrocytosis 1+ (NORMAL); Schistocytes None Seen
== END 2025-01-31 10:01 | disposition home or self-care (01) ==
LOC: ANHLAB 10:01
PROVIDERS: Anesthesiology; PCP Physician Assistant; Visit Provider Surgery
DX: C64.9 Malignant neoplasm of unspecified kidney, except renal pelvis (principal); N18.6 End stage renal disease
CPT/HCPCS: 36415; 80048; 85025; 85730

== ENCOUNTER 2025-02-04 15:15 | Outpatient (CLI) | payer BC, SELFPAY ==
--- OUTSIDE RECORDS SUMMARY | 2025-02-04 17:25 | XMS_ITS | Continuity of Care Document ---
Author Organization [facility] Address [address] [place] [address] [facility] [address] [place] [address] Phone Care Team Providers Care Board Liner Operator Name Role Phone Marcos OD, Sebas Unavailable Unavailable Advance Directives Directive Yes / No Effective Date File Name No Information Encounters Encounter Description Practice Location Reason(s) For Visit Diagnoses Date Provider Providers Copied on Encounter [facility], [address] [place] [address] [address], [place], [place], [address], [place] tel:[phone] [facility] No Information Aug-0 4-200 5 Marcos OD Sebas. [address] , [address], [place], [address], [place]. tel:[phone] Family History Family Member Type Diagnosis Age At Onset No Information Payers Payer name Insurance type Covered libertarian ID Authoriza tijean(s) [facility] CI [id number] Social History Type Description Quantity Date Captured [...]
--- OUTSIDE RECORDS SUMMARY | 2025-02-04 17:25 | XMS_ITS | Clinical Summary ---
Author Organization [facility] Address [address] [address] Phone Care Team Providers Care Mate Fourth Name Role Phone Unavailable Primary Care Provider [...] 01/03/2025 1:00 PM CDT Home Care Visit [address] [address] Leela Rao, RN SN - OASIS DISCHARGE 12/26/2024 12:30 PM CDT Home Care Visit [address] [address] Leela Rao RN SN - WOUND VISIT 12/23/2024 1:30 PM CDT Home Care Visit [address] [address] Sidra Noble LPN SN - WOUND VISIT 12/19/2024 5:00 PM GENERATOR MECHANIC Home Care Visit [address] [address] Leela Rao, RN SN - WOUND VISIT 12/17/2024 11:30 AM GENERATOR MECHANIC Home Care Visit [address] [address] Cintia Chen, PT PT - DISCIPLINE DISCHARGE 12/16/2024 2:00 PM GENERATOR MECHANIC Home Care Visit [address] [address] Loreto Green, NEWSPAPER DELIVERY COUNSELOR PT - HOME VISIT 12/16/2024 2:00 PM GENERATOR MECHANIC Home Care Visit [address] [address] Leela Rao, RN SN - WOUND VISIT 12/16/2024 Home Care Visit [address] [address] Leela Rao, RN TELEPHONE ENCOUNTER 12/12/2024 11:30 AM GENERATOR MECHANIC Home Care Visit [address] [address] Loreto Green, NEWSPAPER DELIVERY COUNSELOR PT - HOME VISIT 12/12/2024 Home Care Visit [address] [address] Kirstin Santana OT OT - DISCHARGE SUMMARY 12/11/2024 2:30 PM GENERATOR MECHANIC Home Care Visit [address] [address] Leela Rao, RN SN - WOUND VISIT 12/10/2024 2:00 PM GENERATOR MECHANIC Home Care Visit [address] [address] Xiomara Jiang, MOVEMENT EDUCATION SPECIALIST OT - DISCIPLINE DISCHARGE 12/10/2024 10:00 AM GENERATOR MECHANIC Home Care Visit [address] [address] Loreto Green, NEWSPAPER DELIVERY COUNSELOR PT - HOME VISIT 12/10/2024 Home Care Visit [address] [address] Xiomara Jiang, RENETTA CASE COMMUNICATION 12/09/2024 11:30 AM GENERATOR MECHANIC Home Care Visit [address] [address] Sidra Noble LPN SN - WOUND VISIT 12/06/2024 1:30 PM GENERATOR MECHANIC Home Care Visit [address] [address] Leela Rao, RN SN - WOUND VISIT 12/05/2024 12:30 PM GENERATOR MECHANIC Home Care Visit [address] [address] Loreto Green, NEWSPAPER DELIVERY COUNSELOR PT - HOME VISIT 12/05/2024 11:00 AM GENERATOR MECHANIC Home Care Visit [address] [address] Xiomara Jiang, RENETTA OT - HOME VISIT 12/05/2024 Home Care Visit [address] [address] Xiomara Jiang, MOVEMENT EDUCATION SPECIALIST CASE COMMUNICATION 12/03/2024 12:00 PM GENERATOR MECHANIC Home Care Visit [address] [address] Loreto Green, NEWSPAPER DELIVERY COUNSELOR PT - HOME VISIT 12/03/2024 9:30 AM GENERATOR MECHANIC Home Care Visit [address] [address] Kirstin Santana OT OT - HOME VISIT 12/03/2024 Home Care Visit [address] [address] Leela Rao, RN CARE CONFERENCE 12/02/2024 3:30 PM GENERATOR MECHANIC Home Care Visit [address] [address] Leela Rao, RN SN - WOUND VISIT 11/29/2024 2:00 PM GENERATOR MECHANIC Home Care Visit [address] [address] Leela Rao RN SN - WOUND VISIT 11/29/2024 9:15 AM GENERATOR MECHANIC Home Care Visit [address] [address] Kirstin Santana OT OT - INITIAL EVALUATION 11/28/2024 3:00 PM GENERATOR MECHANIC Home Care Visit [address] [address] Cintia Chen, PT PT - INITIAL EVALUATION 11/28/2024 Home Care Visit [address] [address] Cintia Chen, PT TELEPHONE ENCOUNTER 11/28/2024 Home Care Visit [address] [address] Damaris An RN TELEPHONE ENCOUNTER 11/27/2024 11:00 AM GENERATOR MECHANIC Home Care Visit [address] [address] Leela Rao RN SN - OASIS START OF CARE 11/27/2024 Plan of Care Documentation [address] [address] from Last 3 Months Social History Tobacco [...] (196 lb 3.4 oz) 12/17/2024 11:30 AM GENERATOR MECHANIC Height 182.9 cm (6') 11/29/2024 9:36 AM GENERATOR MECHANIC Body Mass Index 26.61 11/29/2024 9:36 AM GENERATOR MECHANIC Plan of Treatment Health Maintenance Due Date [...]
--- OUTSIDE RECORDS SUMMARY | 2025-02-04 17:25 | XMS_ITS | Encounter Summary ---
Author Organization [facility] Address [address] [place] [address] Care Team Providers Care Mixing Machine Tender Name Role Phone Unavailable Primary Care Provider Unavailabl e Encounter Details Date Type Department Care Team ([facility] Contact Info) Description 06/02/2023 Telephone [facility] On[facility]ology - [place] [address] [facility] [address] [place] [address] [place] [address] [place] [address] [address] [place] [address] Social History Tobacco Use Types [...] Info) Description 02/05/2025 10:00 AM CDT Appointment [facility] Hyperbaric and Wound [facility] [place] [address] [place] [phone] Jesus Luciano, ERNESTO [address] [place], [place] [id number] 04/14/2025 10:15 AM CDT Appointment [facility] Heart and Vascular Testing [address] [place] [address] Shanika Sebastian, JOHN [address] [facility] [place] [address] [place] [address] 04/14/2025 11:30 AM CDT Office Visit [facility] [address] [facility] [address] [address] [facility] [address] [place] [address] [place] [address] [facility] [address] [place] [address] documented as of this encounter Visit Diagnoses Not on filedocumented in this encounter
--- OUTSIDE RECORDS SUMMARY | 2025-02-04 17:26 | XMS_ITS | Clinical Summary ---
Author Organization [facility] [address] Address [address] [place] [address] Care Team Providers Care Casing Sewer Name Role Phone Gia Clark Primary Care Provider [phone] Harry Loredo MD Unavailable Rachell Mcnulty MD Unavailable [phone] Ramonita Feldman RN Unavailable [phone] Allergies No known active allergies Medications [...] (09/02/2022): Added automatically from request for surgery [id number] Hypertension 02/14/2022 Renal mass 02/14/2022 Encounters Date Type Department Care Team Description 01/24/2025 Telephone [facility] Medical [facility] Cardiology [address] [facility] [address] [place] [address] Harry Loredo MD 11/27/2024 Telephone [facility] Home Care Services [address] [facility] [address] [place] [address] Sarah Gannon 11/26/2024 Telephone [facility] Home Care Services [address] [facility] [address] [place] [address] Unknown, Notinfile from Last 3 [...] Td or Tdap) 07/15/2032 07/15/2022 Insurance [facility] [place] Care Teams Casing Sewer Relationship Specialty Start Date End Date Gia Clark PA [address] [place] [address] PCP - General Physician Offbearer 09/15/22 Harry Loredo MD [address] [facility] [address] [place] [address] Consulting Physician Cardiovascular Disease 03/18/24 Rachell Mcnulty MD [address] [facility] [address] [place] [address] Referring Physician Nephrology 06/05/24 Ramonita Feldman, RN [address] [place] [address] Exploration Manager 06/05/24
--- OUTSIDE RECORDS SUMMARY | 2025-02-04 17:26 | XMS_ITS | Encounter Summary ---
Author Organization [facility] Address [address] [place] [address] Care Team Providers Care Plan Coordinator Name Role Phone Gia Clark PA-C Primary Care Provider [phone] Encounter Details Date Type Department Care Team (Late st Contact Info) Description 06/14/2023 Lab Requisition [facility] - Pathology Lab [address] [place] [address] Cristiano Joe MD [facility] [address] [address] Generalized enlarged lymph nodes Social History Tobacco [...] AM CDT) Case Report Flow Cytometry Case: [id number] Authorizing Provider: Cristiano Joe MD Collected: 06/14/2023 10:46 AM Ordering Location: [facility] Pathology Lab Received: 06/14/2023 04:46 PM Pathologist: Jamel Ashby MD Specimen: Lymph Node, LEFT PELVIC AREA 06/15/2023 8:52 AM [facility] PATHOLOGY LAB Final Diagnosis Lymph node, left pelvic area, flow cytometric immunophenotypic analysis: - Insufficient hematopoietic cells for analysis. - See interpretation. 06/15/2023 8:52 AM [facility] Flow Cytometry Interpretation Preliminary characterization of the lymph node specimen demonstrates too few hematopoietic cells for flow cytometric analysis. A cytospin prepared from the flow cytometry specimen is reviewed for fuel quality tech purposes. Flow cytometry is not performed. 06/15/2023 8:52 AM [facility] PATHOLOGY LAB Flow Cytometry Results Too few hematopoietic cells for flow cytometric analysis. 06/15/2023 8:52 AM [facility] Reason for test Generalized enlarged lymph nodes 785.6 06/15/2023 8:52 AM [facility] Client Specimen ID # [id number] 06/15/2023 8:52 AM [facility] Pathologist Location at [facility] 06/15/2023 8:52 AM [facility] Disclaimer Test performed at [facility], [address] [place] [address], [address]. *The established laboratory minimum viability is 70%. [...] PATHOLOGY LAB Embedded Images 8:52 AM T [facility] PATHOLOGY LAB Pathology/Cytolo gy ENTIRE LYMPH NODE / Unknown 06/14/2023 10:46 AM CDT 06/14/2023 4:46 PM CDT Cristiano Joe MD LAB - PATHOLOGY/CYTOLOGY ORDERAB LES Final Result [facility] PATHOLOGY LAB [address] [facility] [phone] documented in this encounter Visit Diagnoses Diagnosis Generalized enlarged lymph nodes Enlargement of lymph nodes documented in this encounter Care Teams Plan Coordinator Relationship Specialty Start Date End Date Gai Clark PA-C [address] [place] [address] PCP - General 05/24/22 documented as of this encounter
--- OUTSIDE RECORDS SUMMARY | 2025-02-04 17:26 | XMS_ITS | Clinical Summary ---
Author Organization [facility] Address [address] [place] [address] Phone Care Team Providers Care Machine Cementer Name Role Phone Gia Clark Primary Care Provider Allergies No known active allergies Medications amLODIPine [...] on file Legal Sex Male 8:10 AM [facility] Gender Identity Not on file Sexual Orientation [...] 08/10/20 21, 07/31/2020 Insurance [employer] Care Teams Machine Cementer Relationship Specialty Start Date End Date Gia Clark PA [address] [place] [phone] PCP - General 01/03/22
--- OUTSIDE RECORDS SUMMARY | 2025-02-04 17:26 | XMS_ITS | Clinical Summary ---
Author Organization [facility] Address [address] [facility] [place] [address] Care Team Providers Care Quality Assurance Practice Manager Name Role Phone Gia Clark PA-C Primary Care Provider Source Comments [facility],non-owned Affiliates and Associated Physician Practices is amultiple site organization consisting of ambulatory clinics and hospital sitesin [place], [place], [place] and [place]. This disclosure is being madepursuant to the Care Everywhere program and may not contain all information available regarding this patient. Last updated 18.[facility] Social History Tobacco Use Types Packs/Day Years [...] patient's age to complete this topic Insurance [facility] * Guarantor: KAR SLOAN Account Type Relation to Patient Date of Phone Billing Address Personal/Family Spouse Care Teams Quality Assurance Practice Manager Relationship Specialty Start Date End Date Gia Clark PA-C [address] [place] [address] PCP - General 05/24/22
--- OUTSIDE RECORDS SUMMARY | 2025-02-04 17:26 | XMS_ITS | Clinical Summary ---
Author Organization [facility] Rasheed Rivas Address [address] [place] [address] Care Team Providers Care Lunchroom Food Service Supervisor Name Role Phone Unavailable Primary Care Provider [...] daily. 60 Tablet 1 11/26/2024 5:26 PM 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 Active atorvastatin (LIPITOR) 40 mg tablet Take 1 Tablet (40 mg) by mouth daily at bedtime. 30 Tablet 2 11/26/2024 5:26 PM 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 Active sennosides-docus ate sodium (SENNA-S) 8.6-50 mg tablet Take 1 Tablet by mouth 2 times daily. Active fluticasone furoate-vilanter oL (BREO ELLIPTA) 200-25 mcg/dose Disk with Device Starting 11/26/24, Take 1 Puff by inhalation daily. 60 Each 2 11/26/2024 5:26 PM 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 Active axitinib 5 mg tablet Take 1 [...] Encounters Date Type Department Care Team Description 01/31/2025 Specialty Pharmacy [facility] [address] [place] [address] Patricia Flower, PHARMACIST 01/31/2025 Specialty Pharmacy [facility] [place] [address] Patricia Flower, PHARMACIST Specialty Pharmacy Financial Assistance 01/22/2025 9:41 AM CDT - 01/22/2025 11:59 PM CDT Hospital Encounter [facility] [place] [address] [place] [phone] Jesus Luciano, DPM Discharge Disposition: Home or Self Care 01/22/2025 Orders Only [facility] Oncology and Hematology [facility] [address] [place] [address] Aydin Carrasco MD Need for hepatitis B screening test (Primary Dx) 01/21/2025 External Device Data STL ABSTRACTION Provider, Abstract 01/20/2025 4:00 PM CDT Telephone Check Up [facility] Oncology and Hematology [facility] [address] [place] [address] Aydin Carrasco MD Renal cell carcinoma of right kidney (CMS/HCC) (Primary Dx) 01/09/2025 Orders Only [facility] Oncology and Hematology [facility] [address] [place] [phone] Aydin Carrasco MD 01/03/2025 Abstract [facility] Heart and Vascular Surgery [address] [facility] [address] [address] Shanika Sebastian FNP 01/02/2025 3:30 PM CDT Office Visit [facility] Heart and Vascular Surgery [address] [facility] 101 [address] [address] [facility] [address] [place] [address] Shanika Sebastian FNP PVD (peripheral vascular disease) (Primary Dx) 01/02/2025 1:31 PM CDT - 01/02/2025 11:59 PM CDT Hospital Encounter [facility] V[facility] Testing [facility] [address] [place] [address] Patricia Quezada NP Discharge Disposition: Home or Self Care 01/01/2025 11:00 AM CDT - 01/01/2025 11:59 PM CDT Hospital Encounter [facility] [place] [address] [facility] [facility] [place] [address] Jesus Luciano, ALFAM Discharge Disposition: Home or Self Care 01/01/2025 External Device Data STL ABSTRACTION Provider, Abstract 12/21/2024 External Device Data STL ABSTRACTION Provider, Abstract 12/20/2024 External Device Data STL ABSTRACTION Provider, Abstract 12/18/2024 10:37 AM 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 - 12/18/2024 11:59 PM 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 Hospital Encounter [facility] [place] [address] [facility] [place] [address] Jesus Luciano, DPM Discharge Disposition: Home or Self Care 12/18/2024 External Device Data STL ABSTRACTION Provider, Abstract 12/17/2024 External Device Data STL ABSTRACTION Provider, Abstract 12/16/2024 9:15 AM 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 Office Visit [facility] Oncology and Hematology [facility] [address] [place] [address] Aydin Carrasco MD Renal cell carcinoma of right kidney (CMS/HCC) (Primary Dx) 12/11/2024 Abstract [facility] Oncology and Hematology - [place] [address] [place] [address] Aydin Carrasco MD 12/11/2024 Orders Only [facility] Oncology and Hematology [place] [address] [place] [address] Aydin Carrasco MD 12/06/2024 Telephone [facility] Heart and Vascular Surgery [address] [facility] 101 [address] [facility] [address] [place] [address] Franca Dykes MD Question 12/03/2024 External Device Data STL ABSTRACTION Provider, Abstract 11/28/2024 Abstract [facility] Heart and Vascular Surgery [address] [facility] 101 [address] [address] [facility] [address] [place] [address] Franca Dykes MD 11/28/2024 Telephone [facility] Heart and Vascular Surgery [address] [facility] 101 [address] [facility] [address] [place] [address] Franca Dykes MD short term disability forms 11/27/2024 Telephone [facility] Heart and Vascular Surgery [address] [facility] 101 [address] [facility] [address] [place] [address] Patricia Quezada, BREAD PAN GREASER Needs Appointment 11/27/2024 Abstract [facility] Heart and Vascular Surgery [address] [facility] 101 [address] [facility] [address] [place] [address] Franca Dykes MD 11/23/2024 11:37 AM 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 Anesthesia Event [facility] Operating Room [address] [place] [address] Reinier Dale MD Tao, Yongping, MD 11/23/2024 8:42 AM 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 - 11/23/2024 9:54 AM [facility] Surgery [facility] Operating Room [address] [place] [address] Jesus Luciano DPM RIGHT GREAT TOE AMPUTATION 11/23/2024 Travel 11/20/2024 7:30 AM 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 - 11/20/2024 5:21 PM [facility] Surgery [facility] Vascular Operating Room [address] [place] [address] Franca Dykes MD COMMON, SUPERFICIAL, AND PROFUNDA RIGHT FEMORAL ENDARTERECTOMY, RIGHT LOWER EXTREMITY ANGIOGRAM, IVUS AND SHOCKWAVE TO RIGHT SFA AND POPLITEAL, AND DRUG COATED BALLOON ANGIOPLASTY TO RIGHT SFA AND POPLITEAL 11/20/2024 7:30 AM 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 Anesthesia Event [facility] Vascular Operating Room [address] [place] [address] Kianna Lu MD Grahek-Lindsey, Lisa M, PA-C 11/19/2024 External Device Data STL ABSTRACTION Provider, Abstract 11/19/2024 External Device Data STL ABSTRACTION Provider, Abstract 11/19/2024 External Device Data STL ABSTRACTION Provider, Abstract 11/13/2024 6:57 PM 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 - 11/26/2024 6:16 PM 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 Hospital Encounter [facility] Surgery [address] [place] [address] Chong Garcia MD Idemudia, Osarenren, MD Bagam, Vaghdevi, MD Miller, Brian P, MD Suarez Solar, Pedro, MD Necrotic toes ([facility]) Discharge Disposition: Home or Self Care 11/13/2024 [...] [facility] [address] [place] [phone] eJsus Luciano, DPNegro [address] [place] [address] 04/14/2025 10:15 AM CDT Appointment [facility] Heart [facility] V[facility] Testing [facility] [address] [facility] [address] [place] [address] Shanika Sebastian FNP [address] [facility] [address] [place] [phone] 04/14/2025 11:30 AM CDT Office Visit [facility] Heart and Vascular Surgery [address] [facility] 101 [address] [facility] 101 [place] [address] [place] [address] [facility] 101 [place] [address] Health Maintenance Due Date Last [...] 10/24/2022, 08/10/2021, Additional history exists COVID-19 Vaccine (5 - 2023-2 5 season) 2024 04/01/2022, 08/26/2021, 12/16/2020, Additional history exists Preventative Visit- Commercial 10/16/2024 Pre-Diabetes and Diabetes Screening 11/14/2027 11/14/2024 DTAP/TDAP/TD VACCINES (3 - T d or Tdap) 07/15/2032 07/15/2022, 07/05/2022 Medical Devices Implanted Type Area Merchandise Complaint Adjuster Device Identifier Shelf Expiration Date Model / Serial / Lot Patch Vascu-Guard 1.0x10cm [id number] - [id number] Implanted:Qty: 1 on 11/20/2024 by Franca Dykes MD at [facility] Right: Groin [employer] 09/03/2025 [id number] / / [id number] Patch Vascu-Guard 0.8x8cm Cardio Vg-0108 - [id number] Implanted:Qty: 1 on 11/20/2024 by Franca Dykes MD at [facility] Collagen Right: Groin [employer] 05/20/2026 [id number] / / [id number] Hemostatic Surgifoam Sz12-7 1971 - [id number] Implanted:Qty: 1 on 11/20/2024 by Franca Dykes MD at [facility] Hemostatic Right: Groin [employer] 03/11/20281971 / / [id number] Hemostatic Surgiflo 8ml W/ Thrombin 2994 - [id number] Implanted:Qty: 1 on 11/20/2024 by Franca Dykes MD at [facility] Hemostatic [employer] 10/15/2025 [id number] / / [id number] Procedures Procedure Name Priority Date/Time Associated Diagnosis Comments ANAEROBIC/AEROBIC CULTURE W GRAM STAIN Routine 01/22/2025 10:27 AM CDT 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, unspecified laterality (CMS/HCC) PATHOLOGY REPORT Routine 01/07/2025 3:59 PM CDT US ANKLE PRESSURE INDEX Routine 01/03/20 3:13 PM CDT PVD (peripheral vascular disease) ANAEROBIC/AEROBIC CULTURE W GRAM STAIN Routine 12/18/2024 11:34 AM 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, unspecified laterality (CMS/HCC) BASIC METABOLIC PANEL Routine 12/11/2024 4:32 PM 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 CBC WITH AUTODIFFERENTIAL Routine 12/11/2024 11:49 AM 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 VANCOMYCIN LEVEL RANDOM Routine 11/26/19 4:39 AM 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 RENAL FUNCTION PANEL Routine 11/26/2024 4:39 AM 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 PTT Timed Study 11/25/2024 7:42 PM 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 TELEMETRY REPORT 11/25/2024 3:26 PM 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 TELEMETRY REPORT 11/25/2024 3:06 PM 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 TELEMETRY REPORT 11/25/2024 2:57 PM 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 TELEMETRY REPORT 11/25/2024 2:45 PM 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 PTT Routine 11/25/2024 12:14 PM 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 TELEMETRY REPORT 11/25/2024 10:16 AM 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 TELEMETRY REPORT 11/25/2024 9:59 AM 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 TELEMETRY REPORT 11/25/2024 8:03 AM 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 PTT Routine 11/25/2024 3:11 AM 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 RENAL FUNCTION PANEL Routine 11/25/2024 3:11 AM 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 PTT Timed Study 11/24/2024 11:08 PM 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 PTT Timed Study 11/24/2024 3:52 PM 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 PTT Routine 11/24/2024 7:29 AM 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 CBC WITHOUT DIFFERENTIAL Routine 11/24/2024 2:56 AM 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 RENAL FUNCTION PANEL Routine 11/24/2024 2:56 AM 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 PTT Routine 11/23/2024 7:41 PM 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 VANCOMYCIN LEVEL RANDOM Timed Study 11/23/19 2:30 PM 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 PT EVAL AND TREAT Routine 11/23/2024 1:3 0 PM 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 XR FOOT 3+ VW RIGHT Routine 11/23/2024 1 :04 PM 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 PATHOLOGY Pathology 11/23/2024 11:55 AM 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 ANAEROBIC/AEROBIC CULTURE W GRAM STAIN Routine 11/23/2024 11:55 AM 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 TOE(S) AMPUTATION 11/23/2024 8:4 2 AM 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 UNKNOWN Special Needs SAW. DR ADAN T/F HIS OTHER CASE. TRANSFUSE PACKED RED BLOOD CELLS Routine 11/23/2024 8:36 AM 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 PREPARE RED BLOOD CELLS Routine 11/23/19 6:58 AM 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 TYPE AND SCREEN Routine 11/23/2024 3:44 AM 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 CBC WITH DIFFERENTIAL Routine 11/23/2024 3:44 AM 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 PTT Routine 11/23/2024 3:44 AM 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 RENAL FUNCTION PANEL Routine 11/23/2024 3:44 AM 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 PTT Timed Study 11/22/2024 10:33 PM 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 POTASSIUM LEVEL Stat 11/22/2024 4:05 PM 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 PTT Timed Study 11/22/2024 4:05 PM 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 HEMODIALYSIS Routine 11/22/2024 12:01 PM 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 VANCOMYCIN LEVEL RANDOM Stat 11/22/19 25 6:10 AM 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 CBC WITH DIFFERENTIAL Routine 11/22/2024 6:10 AM 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 RENAL FUNCTION PANEL Routine 11/22/2024 6:10 AM 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 PTT Timed Study 11/22/2024 6:10 AM 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 PTT Timed Study 11/21/2024 8:09 PM 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 PTT Timed Study 11/21/2024 9:31 AM 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 BASIC METABOLIC PANEL Stat 11/21/2024 6:01 AM 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 MAGNESIUM LEVEL Stat 11/21/2024 6:01 AM 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 POC GLUCOSE Routine 11/21/2024 5:39 AM 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 EKG 12-LEAD Stat 11/21/2024 5:29 AM 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 CBC WITH DIFFERENTIAL Routine 11/21/2024 2:25 AM 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 PTT Timed Study 11/21/2024 2:24 AM 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 VANCOMYCIN LEVEL RANDOM Timed Study 11/21/19 25 2:24 AM 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 RENAL FUNCTION PANEL Routine 11/21/2024 2:24 AM 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 VERIFICATION BLOOD GROUP Stat 11/20/2024 8:52 PM 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 HEMOGLOBIN AND HEMATOCRIT Stat 11/20/2024 3:13 PM 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 POC ACTIVATED CLOTTING TIME Routine 11/20/2024 1:23 PM 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 XR OR Routine 11/20/2024 1:12 PM 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 TRANSFUSE PACKED RED BLOOD CELLS Stat 11/20/2024 12:57 PM 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 POC ACTIVATED CLOTTING TIME Routine 11/20/2024 12:52 PM 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 PREPARE RED BLOOD CELLS Stat 11/20/19 25 12:18 PM 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 PREPARE RED BLOOD CELLS Routine 11/20/19 25 12:18 PM 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 POC ACTIVATED CLOTTING TIME Routine 11/20/2024 12:18 PM 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 POC LACTIC ACID Routine 11/20/2024 12:10 PM 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 OXIMETRY Routine 11/20/2024 12:10 PM 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 METHEMOGLOBIN QUANTITATIVE Routine 11/20/2024 12:10 PM 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 CARBOXYHEMOGLOBIN Routine 11/20/2024 12:10 PM 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 BLOOD GAS,(INCL. H+H, LYTES, GLUC) Routine 11/20/2024 12:10 PM 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 POC ACTIVATED CLOTTING TIME Routine 11/20/2024 11:40 AM 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 POC ACTIVATED CLOTTING TIME Routine 11/20/2024 11:33 AM 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 POC ACTIVATED CLOTTING TIME Routine 11/20/2024 10:57 AM 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 POC ACTIVATED CLOTTING TIME Routine 11/20/2024 10:53 AM 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 POC ACTIVATED CLOTTING TIME Routine 11/20/2024 10:42 AM 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 POC ACTIVATED CLOTTING TIME Routine 11/20/2024 10:10 AM 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 POC ACTIVATED CLOTTING TIME Routine 11/20/2024 9:56 AM 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 POC ACTIVATED CLOTTING TIME Routine 11/20/2024 9:25 AM 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 POC LACTIC ACID Routine 11/20/2024 8:50 AM 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 OXIMETRY Routine 11/20/2024 8:50 AM 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 METHEMOGLOBIN QUANTITATIVE Routine 11/20/2024 8:50 AM 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 CARBOXYHEMOGLOBIN Routine 11/20/2024 8:5 0 AM 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 BLOOD GAS,(INCL. H+H, LYTES, GLUC) Routine 11/20/2024 8:50 AM 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 [place] ANES INSERT CATH, ART, PERCUT, SHORTTERM Routine 11/20/2024 8:36 AM 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 PERIPHERAL IV ADULT Routine 11/20/2024 8 :15 AM 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 [place] ANES VNPNXR 3 YEARS/> PHYS/QHP SKILL Routine 11/20/2024 8:15 AM 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 [place] ANES INSERT ENDOTRACHEAL AIRWAY Routine 11/20/2024 7:36 AM 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 FEMORAL ENDARTERECTOMY 7:26 AM 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 PVD Special Needs DR ADAN EV1 RM DR ADAN 7:30 START. TIME OK PER VICTOR HUGO/ CHARGE NURSE. TYPE AND SCREEN Stat 11/20/2024 3:53 AM 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 CBC WITH DIFFERENTIAL Stat 11/20/2024 3:52 AM 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 RENAL FUNCTION PANEL Stat 11/20/2024 3:52 AM 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 PTT Timed Study 11/20/2024 3:52 AM 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 TELEMETRY REPORT 11/19/2024 2:46 PM 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 TELEMETRY REPORT 11/19/2024 2:30 PM 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 CBC WITH DIFFERENTIAL Stat 11/19/2024 2:27 PM 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 BASIC METABOLIC PANEL Stat 11/19/2024 2:27 PM 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 PTT Stat 11/19/2024 2:27 PM 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 TELEMETRY REPORT 11/19/2024 2:01 PM 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 TELEMETRY REPORT 11/19/2024 1:33 PM 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 TELEMETRY REPORT 11/19/2024 11:40 AM 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 TELEMETRY REPORT 11/19/2024 11:31 AM 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 TELEMETRY REPORT 11/19/2024 10:22 AM 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 TELEMETRY REPORT 11/19/2024 9:57 AM 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 TELEMETRY REPORT 11/19/2024 9:20 AM 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 PTT Routine 11/19/2024 3:06 AM 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 CBC WITH DIFFERENTIAL Routine 11/19/2024 3:06 AM 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 RENAL FUNCTION PANEL Routine 11/19/2024 3:06 AM 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 PTT Stat 11/18/2024 7:43 PM 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 VANCOMYCIN LEVEL RANDOM Timed Study 11/18/19 12:03 PM 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 RENAL FUNCTION PANEL Routine 11/18/2024 12:03 PM 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 PTT Timed Study 11/18/2024 7:48 AM 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 EXTRA TUBE (BLUE) Routine 11/18/2024 12:41 AM 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 EXTRA TUBE Routine 11/18/2024 12:41 AM 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 PTT Timed Study 11/18/2024 12:40 AM 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 UNFRACTIONATED HEPARIN ACTIVITY Routine 11/17/2024 5:21 PM 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 PTT Routine 11/17/2024 5:21 PM 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 EKG 12-LEAD Routine 11/17/2024 12:43 PM 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 CBC WITH DIFFERENTIAL Routine 11/17/2024 10:09 AM 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 RENAL FUNCTION PANEL Routine 11/17/2024 10:09 AM 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 NM MYOCARD PERF IMAG SPECT MULT Routine 11/17/2024 9:21 AM 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 NM PHARMACOLOGICAL STRESS TEST Routine 11/17/2024 8:23 AM 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 ECHOCARDIOGRAM W/ CONTRAST AGENT Routine 11/16/2024 4:48 PM 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 LIPID PANEL Routine 11/16/2024 5:09 AM 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 UNFRACTIONATED HEPARIN ACTIVITY Timed Study 11/16/2024 5:09 AM 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 VANCOMYCIN LEVEL RANDOM Timed Study 11/16/19 5:09 AM 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 RENAL FUNCTION PANEL Routine 11/16/2024 5:09 AM 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 CTA ABD AORTA BI ILIOFEM W AND/OR WO Routine 11/15/2024 6:53 PM 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 CTA CHEST W AND/OR WO CONTRAST Routine 11/15/2024 6:51 PM 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 BLOOD CULTURE Routine 11/15/2024 3:23 PM 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 BLOOD CULTURE Routine 11/15/2024 3:23 PM 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 BLOOD CULTURE Routine 11/15/2024 3:17 PM 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 BLOOD CULTURE Routine 11/15/2024 3:17 PM 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 UNFRACTIONATED HEPARIN ACTIVITY Stat 11/15/2024 8:48 AM 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 HEPATITIS B SURFACE ANTIGEN Routine 11/15/2024 1:48 AM 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 UNFRACTIONATED HEPARIN ACTIVITY Stat 11/15/2024 1:48 AM 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 VANCOMYCIN LEVEL RANDOM Timed Study 11/15/19 1:48 AM 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 RENAL FUNCTION PANEL Routine 11/15/2024 1:48 AM 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 CBC WITH DIFFERENTIAL Routine 11/15/2024 1:48 AM 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 MAGNESIUM LEVEL Routine 11/15/2024 1:48 AM 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 UNFRACTIONATED HEPARIN ACTIVITY Timed Study 11/14/2024 5:09 PM 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 US ANKLE PRESSURE INDEX Routine 11/14/19 4:50 PM 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 US VENOUS DOPPLER LEG BILATERAL Routine 11/14/2024 4:48 PM 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 MRI FOOT WO CONTRAST LEFT Routine 11/14/2024 3:11 PM 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 MRI FOOT WO CONTRAST RIGHT Routine 11/14/2024 2:47 PM 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 UNFRACTIONATED HEPARIN ACTIVITY Timed Study 11/14/2024 8:52 AM 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 MAGNESIUM LEVEL Routine 11/14/2024 12:58 AM 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 COMPREHENSIVE METABOLIC PANEL Routine 11/14/2024 12:58 AM 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 CBC WITH DIFFERENTIAL Routine 11/14/2024 12:58 AM 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 HEMOGLOBIN A1C Routine 11/14/2024 12:58 AM 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 UNFRACTIONATED HEPARIN ACTIVITY Stat 11/14/2024 12:46 AM 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 PTT Stat 11/14/2024 12:46 AM 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 UNFRACTIONATED HEPARIN ACTIVITY Routine 11/14/2024 12:46 AM 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 US DOPPLER VENOUS ARM BILATERAL Routine 11/14/2024 12:20 AM 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 PT EVAL AND TREAT Routine 11/13/2024 9:5 0 PM 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 OT EVAL AND TREAT Routine 11/13/2024 9:5 0 PM 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 MRI PRIOR STUDY Routine 11/10/2024 6:35 AM 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 MRI PRIOR STUDY Routine 11/10/2024 6:30 AM 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 X-RAY PRIOR STUDY Routine 11/09/2024 8:0 0 PM 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 X-RAY PRIOR STUDY Routine 11/09/2024 7:5 5 PM 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 X-RAY PRIOR STUDY Routine 11/09/2024 4:4 5 AM 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 X-RAY PRIOR STUDY Routine 11/09/2024 4:4 0 AM 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 X-RAY PRIOR STUDY Routine 11/09/2024 3:4 5 AM 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 X-RAY PRIOR STUDY Routine 11/09/2024 3:4 0 AM 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 CT PRIOR STUDY Routine 11/09/2024 3:30 AM 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 from Last 3 Months Results * (ABNORMAL) ANAEROBIC/AEROBIC CULTURE W GRAM STAIN (01/22/2025 10:27 AM CDT) Only the most recent of3 resultswithin the time period is included. ANAEROBIC CULTURE SEE NOTE [facility] Novak Comment: CULTURE, ANAEROBIC BACTERIA W/GRAM STAIN Micro Number: [id number] Test Status: Final Specimen Source: Foot, right Specimen Quality: Adequate Gram Stain: No white blood cells seen Many Mixed bacterial padmini Result: Heavy growth of Prevotella species Prevotella sp. INT DAVID 1 THERAPY COMMENTS Note 1: This isolate is beta-lactamase Positive. A Positive result predicts resistance to Penicillin, Ampicillin and Amoxicillin. AEROBIC CULTURE SEE NOTE(A) [facility]ower[facility]andeep Novak Comment: CULTURE, AEROBIC BACTERIA Micro Number: [id number] Test Status: Final Specimen Source: Right foot [...] values are not provided. Test Performed at: [place] [address] [address] [place] [place] [id number] Haydee Atkins Lesion/Drainage Fluid (Foot, right) 01/22/2025 10:27 AM CDT 01/23/2025 2:50 AM CDT Jesus Luciano DPM MICROBIOLOGY - GENERAL ORDE CLAUDIA Final Result [facility] [phone] [place] [address] Administration [place] [phone] * PATHOLOGY REPORT (01/07/2025 3:59 PM CDT) Aydin Carrasco MD PATHOLOGY/CYTOLOGY ORDERABLES F inal Result * US ANKLE PRESSURE INDEX (01/02/2025 3:13 PM CDT) Only the most recent of2 resultswithin the time period is included. Anatomical Region Laterality Modality Lower Extremity Ultrasound 01/02/2025 2:30 PM CDT [facility] 01/02/2025 4:08 PM CDT [facility] NADER Arterial Physiologic Evaluation Patient: Jc De Leon Study ID: 1 Gender: M : 1960 Age: 64 Race: HUNTER Height 182.9cm Study Date: 01/02/2025 Weight: 89.8kg Access. #: [id number] *Referring Physician:Patricia Montanez Amy Elizabeth *Ordering Physician:Patricia Montanez *Air Intelligence Officer:Dory Underwood Indications: PVD. History: Risk factors: Recent [...] Hg Prepared and Electronically Authenticated Mariaa Mathew [id number] Procedure Note Mariaa Mathew MD - 01/02/2025 [facility] NAD[facility] Arterial Physiologic Evaluation Patient: Jc De Leon Study ID: 1 Gender: M : 1960 Age: 64 Race: HUNTER Height 182.9cm Study Date: 01/02/2025 Weight: 89.8kg Access. #: [id number] *Referring Physician:Patricia Montanez AmyElizabeth *Ordering Physician:Patricia MontanezAir Intelligence Officer:Dory Underwood RVS Indications: PVD. History: Risk factors: [...] Hg Prepared and Electronically Authenticated Mariaa Mathew [id number] us Patricia Quezada BREAD PAN GREASER US ORDERABLES Final Res ult * BASIC METABOLIC PANEL (12/11/2024 4:32 PM 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) Only the most recent of3 resultswithin the time period is included. Blood Aydin Carrasco MD CHEMISTRY ORDERABLES Final Resu lt * CBC WITH AUTODIFFERENTIAL (12/11/2024 11:49 AM 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) Blood Aydin Carrasco MD HEMATOLOGY ORDERABLES Final Res ult * VANCOMYCIN LEVEL RANDOM (11/26/2024 4:39 AM 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) Only the most recent of7 resultswithin the time period is included. Pathologist [facility] VANCOMYCIN, RANDOM 17.8 No Ref Range Estab ug/mL 11/26/2024 6:35 AM 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 [facility] [employer] [facility] Blood Venipuncture / Unknown 11/26/2024 4:39 AM 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 11/26/2024 6:05 AM 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 Diego Mcknight MD CHEMISTRY ORDERABLES Final Result [facility]# [id number] [place] [address] * (ABNORMAL) RENAL FUNCTION PANEL (11/26/2024 4:39 AM 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) Only the most recent of12 resultswithin the time period is included. Pathologist [facility] SODIUM 131(L) 136 - 145 mmol/L 11/26/2024 6:35 AM [facility] POTASSIUM 4.9 3.4 - 5.1 mmol/L 11/26/2024 6:35 AM [facility] [employer] [facility] CHLORIDE 96(L) 98 - 107 mmol/L 11/26/2024 6:35 AM [facility] CO2 21(L) 22 - 29 mmol/L 11/26/2024 6:35 AM [facility] CALCIUM 10.3 8.6 - 10.4 mg/dL 11/26/2024 6:35 AM [facility] BUN 53(H) 6 - 20 mg/dL 11/26/2024 6:35 AM [facility] CREATININE 7.72(H) 0.67 - 1.17 mg/dL 11/26/2024 6:35 AM [facility] GLUCOSE 100(H) 74 - 99 mg/dL 11/26/2024 6:35 AM [facility] ALBUMIN 3.3(L) 3.5 - 5.2 g/dL 11/26/2024 6:35 AM [facility] PHOSPHORUS 4.5 2.5 - 4.5 mg/dL 11/26/2024 6:35 AM [facility] GFR 7(L) >=60 mL/min/1.7 3 sq meter 11/26/2024 6:35 AM [facility] Comment:eGFR calculated with 2020 CKD-EPI equation. Vegetarian diet, extremely high or low muscle mass, and may affect results. Cystatin C with Glomerular Filtration Rate is a suitable alternative for these patients. ANION GAP 14 8 - 16 mmol/L 11/26/2024 6:35 AM [facility] Blood Venipuncture / Unknown 11/26/2024 4:39 AM 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 11/26/2024 6:05 AM 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 us Jesus Luciano DPM CHEMISTRY ORDERABLES Final Result Performing Organization Address City/[facility]/ZIP Co de Phone Number [facility]# [id number] [place] [address] * (ABNORMAL) PTT (11/25/2024 7:42 PM 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) Only the most recent of22 resultswithin the time period is included. PTT 70.1(H) 23.1 - 37.1 seconds 11/25/2024 8:24 PM [facility] Blood Venipuncture / Unknown 11/25/2024 7:42 PM 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 11/25/2024 7:59 PM 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 Diego Mcknight MD HEMATOLOGY ORDERABLES Selin l Result [facility] CLIA# [id number] [place] [address] * TELEMETRY REPORT (11/25/2024 3:26 PM 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) Only the most recent of16 resultswithin the time period is included. us Provider Scanning ECG ORDERABLES Final Result * (ABNORMAL) CBC WITHOUT DIFFERENTIAL (11/24/2024 2:56 AM 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) WBC 8.9 4.0 - 9.8 K/uL 11/24/2024 5:01 AM [facility] RBC 2.20(L) 4.50 - 5.40 M/uL 11/24/2024 5:01 AM [facility] HEMOGLOBIN 7.3(L) 13.6 - 16.5 g/dL 11/24/2024 5:01 AM [facility] HEMATOCRIT 22.7(L) 40.0 - 48.0 % 11/24/2024 5:01 AM [facility] MCV 103.2(H) 82.0 - 99.0 fL 11/24/2024 5:01 AM [facility] MCH 33.2(H) 27.2 - 32.6 pg 11/24/2024 5:01 AM [facility] MCHC 32.2 31.5 - 35.5 g/dL 11/24/2024 5:01 AM [facility] PLATELETS 332 140 - 350 K/uL 11/24/2024 5:01 AM [facility] MPV 10.2 9.3 - 12.4 fL 11/24/2024 5:01 AM [facility] RDW 17.3(H) 11.5 - 14.5 % 11/24/2024 5:01 AM [facility] RDW-STDEV 65.5(H) 37.1 - 48.7 fL 11/24/2024 5:01 AM [facility] Blood Venipuncture / Unknown 11/24/2024 2:56 AM 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 11/24/2024 5:01 AM 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 us Diego Mcknight MD HEMATOLOGY ORDERABLES Selin tran Result [facility] [id number] [place] [address] * XR FOOT 3+ VW RIGHT (11/23/2024 1:04 PM 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) Anatomical Region Laterality Modality Ankle / Foot Computed Radiogr aphy 11/23/2024 1:04 PM 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 Impressions 11/23/2024 1:14 PM 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 IMPRESSION: 1. Interval first digit amputation. DICTATION LOCATION: [address] Narrative 11/23/2024 1:14 PM 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 EXAMINATION: XR FOOT 3+ VW RIGHT DATE: [...] 1. Interval first digit amputation. DICTATION LOCATION: [address] us Jesus Luciano DPM DIAGNOSTIC IMAGING ORDERABL ES Final Result * TRANSFUSE RED BLOOD CELLS (11/23/2024 12:36 PM 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) Only the most recent of2 resultswithin the time period is included. Reinier Dale MD BLOOD TRANSFUSI ON ORDERABLES Final Result * PATHOLOGY (11/23/2024 11:55 AM 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) CASE REPORT Surgical Pathology Report Case: [id number] Authorizing Provider: Jesus Luciano DPM Collected: 11/23/2024 11:55 AM Ordering Location: [facility] Received: 11/25/2024 09:35 AM Operating Room Pathologist: Shirley Tran MD Specimens: A) - Bone, proximal first metatarsal, Toe Great, right B) - Toe Great, right, right great toe 11/27/2024 3:40 PM 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 [facility] FINAL DIAGNOSIS Bone, proximal first metatarsal, excision - Bone with focal acute inflammation, consistent with focal acute osteomyelitis - Bone with degenerative/regenera tive change Foot, right great toe, amputation - Skin and soft tissue with ulceration, abscess, and devitalization/necros is - Bone with devitalization/necros is 11/27/2024 3:40 PM 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 [facility] [employer] [facility] at 1539 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 GROSS DESCRIPTION A. Received in formalin labeled [...] lesion submitted after decalcification 11/27/2024 3:40 PM 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 [facility] [employer] [facility] MICROSCOPIC DESCRIPTION Microscopic review supports the diagnosis. 11/27/2024 3:40 PM 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 [facility] OPERATIVE PROCEDURE 1: TOE(S) AMPUTATION 11/27/2024 3:40 PM 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 [facility] CLINICAL INFORMATION UNKNOWN 11/27/2024 3:40 PM WAREHOUSE INSULATION WORKER [facility] COMMENT Immunohistochemical stains were performed, if any, and interpreted at [facility] ([facility]) Laboratory with appropriately staining controls. This test was developed and its performance characteristics determined by [facility] Lab. It has not been cleared [...] these and other antigens. 11/27/2024 3:40 PM WAREHOUSE INSULATION WORKER [facility] Tissue ENTIRE BONE ORGAN / Unknown Collection / Unknown 11/23/2024 11:55 AM WAREHOUSE INSULATION WORKER 11/25/2024 9:35 AM WAREHOUSE INSULATION WORKER Tissue specimen (specimen) (Toe Great, right) Collection / Unknown 11/23/2024 11:55 AM WAREHOUSE INSULATION WORKER 11/25/2024 9:35 AM WAREHOUSE INSULATION WORKER Jesus Luciano DPNegro PATHOLOGY/CYTOLOGY ORDERABL ES Final Result [facility] CLIA# [id number] [place] [address] * PREPARE RED BLOOD CELLS (11/23/2024 6:58 AM WAREHOUSE INSULATION WORKER) Only the most recent of3 resultswithin the time period is included. COMPONENT TYPE [id number] [facility] COMPONENT IDENTIFICATION [id number] [facility] UNIT ABO O [facility] UN[facility] RH POS [facility] CROSSMATCH Compatible [facility] COMPONENT STATUS Transfused ME [facility] COMPONENT EXPIRATION DATE/TIME [id number] [facility] COMPONENT CODING SYSTEM [address] [facility] VOLUME, BLOOD PRODUCT 350 [facility] Other, specify 11/23/2024 6: 58 AM WAREHOUSE INSULATION WORKER Reinier Dale MD LAB TRANSFUSION ORDERABLES Edited Result - Final [facility] CLIA# [id number] [place] [address] * (ABNORMAL) CBC WITH DIFFERENTIAL (11/23/2024 3:44 AM WAREHOUSE INSULATION WORKER) Only the most recent of9 resultswithin the time period is included. WBC 9.6 4.0 - 9.8 K/uL 11/23/2024 4:11 AM [facility] RBC 2.12(L) 4.50 - 5.40 M/uL 11/23/2024 4:11 AM [facility] HEMOGLOBIN 7.0(L) 13.6 - 16.5 g/dL 11/23/2024 4:11 AM [facility] HEMATOCRIT 21.9(L) 40.0 - 48.0 % 11/23/2024 4:11 AM [facility] MCV 103.3(H) 82.0 - 99.0 fL 11/23/2024 4:11 AM [facility] MCH 33.0(H) 27.2 - 32.6 pg 11/23/2024 4:11 AM [facility] MCHC 32.0 31.5 - 35.5 g/dL 11/23/2024 4:11 AM [facility] RDW 16.6(H) 11.5 - 14.5 % 11/23/2024 4:11 AM [facility] RDW-STDEV 62.7(H) 37.1 - 48.7 fL 11/23/2024 4:11 AM [facility] PLATELETS 346 140 - 350 K/uL 11/23/2024 4:11 AM [facility] MPV 9.8 9.3 - 12.4 fL 11/23/2024 4:11 AM [facility] NEUTROPHILS 74 % 11/23/2024 4:11 AM [facility] LYMPHOCYTES 13 % 11/23/2024 4:11 AM [facility] MONOCYTES 10 % 11/23/2024 4:11 AM [facility] EOSINOPHILS 2 % 11/23/2024 4:11 AM WAREHOUSE INSULATION WORKER [facility] SERVICES [facility] BASOPHILS 1 % 11/23/2024 4:11 AM [facility] [employer] [facility] IMMATURE GRANULOCYTES 1 % 11/23/2024 4:11 AM [facility] Comment:IG (Immature Granulo cyte) count includes Metamyelocytes, Myelocytes, and Promyelocytes NEUTROPHIL ABSOLUTE 7.09(H) 1.90 - 7.00 K/uL 11/23/2024 4:11 AM [facility] LYMPHOCYTE ABSOLUTE 1.19 0.70 - 4.50 K/uL 11/23/2024 4:11 AM [facility] MONOCYTE ABSOLUTE 0.94 0.10 - 1.30 K/uL 11/23/2024 4:11 AM [facility] EOSINOPHIL ABSOLUTE 0.20 0.00 - 0.70 K/uL 11/23/2024 4:11 AM [facility] BASOPHILS ABSOLUTE 0.07 0.00 - 0.20 K/uL 11/23/2024 4:11 AM [facility] IMMATURE GRANULOCYTES ABSOLUTE 0.06(H) 0.00 - 0.03 K/uL 11/23/2024 4:11 AM [facility] [employer] [facility] Blood Venipuncture / Unknown 11/23/2024 3:44 AM WAREHOUSE INSULATION WORKER 11/23/2024 4:11 AM WAREHOUSE INSULATION WORKER us Noy Jackson DO HEMATOLOGY ORDERABLES Selin l Result [facility] [id number] [place] [address] * TYPE AND SCREEN (11/23/2024 3:44 AM WAREHOUSE INSULATION WORKER) Only the most recent of2 resultswithin the time period is included. ABO GROUP O 11/23/2024 4:42 AM WAREHOUSE INSULATION WORKER [facility] RH (D) TYPE Positive 11/23/2024 4:42 AM WAREHOUSE INSULATION WORKER [facility] ANTIBODY SCREEN Negative 11/23/2024 4:42 AM WAREHOUSE INSULATION WORKER [facility] Blood Venipuncture / Unknown 11/23/2024 3:44 AM WAREHOUSE INSULATION WORKER 11/23/2024 3:50 AM WAREHOUSE INSULATION WORKER Noy Jackson DO BLOOD BANK ORDERABLES Edit ed Result - Final Performing Organization Address [facility] Co de Phone Number [facility]# [id number] [place] [address] * POTASSIUM LEVEL (11/22/2024 4:05 PM WAREHOUSE INSULATION WORKER) Pathologist [facility] POTASSIUM 4.6 3.4 - 5.1 mmol/L 11/22/2024 5:15 PM WAREHOUSE INSULATION WORKER [facility] Blood Venipuncture / Unknown 11/22/2024 4:05 PM WAREHOUSE INSULATION WORKER 11/22/2024 4:26 PM WAREHOUSE INSULATION WORKER us Kianna Lu MD CHEMISTRY ORDERABLES Final Resul t Performing Organization Address [facility]/ZIP Co de Phone Number [facility]# [id number] [place] [address] * HEMODIALYSIS (11/22/2024 12:01 PM WAREHOUSE INSULATION WORKER) Narrative Karissa Au RN - 11/22/2024 12:01 PM WAREHOUSE INSULATION WORKER Karissa Au RN 11/22/2024 12:03 PM Hemodialysis [...] Status: Right forearm fistula with + bruit/thrill. Asbury removed. Direct pressure held until hemostasis achieved. [...] Result * MAGNESIUM LEVEL (11/21/2024 6:01 AM WAREHOUSE INSULATION WORKER) Only the most recent of3 resultswithin the time period is included. MAGNESIUM 2.1 1.6 - 2.6 mg/dL 11/21/2024 6:44 AM WAREHOUSE INSULATION WORKER [facility] [employer] [facility] Blood Venipuncture / Unknown 11/21/2024 6:01 AM WAREHOUSE INSULATION WORKER 11/21/2024 6:07 AM WAREHOUSE INSULATION WORKER Roni Barahona PA-C CHEMISTRY ORDERABLES Final Result [facility] [employer] [facility] CLIA# [id number] [address] [place] [address] * POC GLUCOSE (11/21/2024 5:39 AM WAREHOUSE INSULATION WORKER) GLUCOSE POC 90 74 - 99 mg/dL 11/21/2024 5:39 AM WAREHOUSE INSULATION WORKER [facility] POINT OF CARE SPECIMEN SOURCE, GLUCOSE POC Whole Blood 11/21/2024 5:39 AM WAREHOUSE INSULATION WORKER [facility] POINT OF CARE Blood, whole 11/21/2024 5:39 AM WAREHOUSE INSULATION WORKER 11/21/2024 11:05 AM WAREHOUSE INSULATION WORKER us Diego Mcknight MD POINT OF CARE TESTING Selin tran Result [facility] POINT OF CARE CLIA # [id number] [address] [place] [address] * EKG 12-LEAD (11/21/2024 5:29 AM WAREHOUSE INSULATION WORKER) Only the most recent of2 resultswithin the time period is included. 11/21/2024 5:29 AM WAREHOUSE INSULATION WORKER Narrative INTERFACE SYSTEM - 11/21/2024 7:30 AM WAREHOUSE [place] [address] Test Date: 2024-11-21 Pat Name: JC DE LEON Department: 98 Room: [address] [place] [address] Gender: Male Computer Specialist: lizette : 1960 Requested By: CHONG GRACIA Order Number: [id number] Reading MD: Chong Veloz Measurements Intervals [place] Rate: 79 P: 0 IL: 0 QRS: 17 QRSD: 100 T: 122 QT: 412 QTc: 472 Interpretive Statements Atrial fibrillation ST & Marked T wave abnormality, consider anterolateral ischemia Prolonged QT Abnormal ECG Compared to ECG 11/17/2024 12:43:44 Prolonged QT interval now present Electronically Signed On 11-21-2024 7:30:28 WAREHOUSE INSULATION WORKER by Chong Veloz Procedure Note Chong Veloz MD - 11/21/2024 [place] [address] Test Date: 2024-11-21 Pat Name: JC DE LEON Department: 98 Room: [address] [place] [address] Gender: Male Computer Specialist: sb : 1960 Requested By: CHONG GARCIA Order Number: [id number] Reading MD: Chong Veloz Measurements Intervals [place] Rate: 79 P: 0 IL: 0 QRS: 17 QRSD: 100 T: 122 QT: 412 QTc: 472 Interpretive Statements Atrial fibrillation ST & Marked T wave abnormality, consider anterolateral ischemia Prolonged QT Abnormal ECG Compared to ECG 11/17/2024 12:43:44 Prolonged QT interval now present Electronically Signed On 11-21-2024 7:30:28 WAREHOUSE INSULATION WORKER by Chong Veloz Roni Barahona PA-C ECG ORDERABLES Final Resul t INTERFACE SYSTEM Refer to clinic/hospital department * VERIFICATION BLOOD GROUP (11/20/2024 8:52 PM WAREHOUSE INSULATION WORKER) ABO GROUP O 11/20/2024 10:00 PM WAREHOUSE INSULATION WORKER [facility] [employer] [facility] RH (D) TYPE Positive 11/20/2024 10:00 PM WAREHOUSE INSULATION WORKER [facility] [employer] [facility] Blood Venipuncture / Unknown 11/20/2024 8:52 PM WAREHOUSE INSULATION WORKER 11/20/2024 9:29 PM WAREHOUSE INSULATION WORKER Franca Dykes MD BLOOD BANK ORDERAB LES Final Result [facility] CLIA# [id number] [address] [place] [address] * (ABNORMAL) HEMOGLOBIN AND HEMATOCRIT (11/20/2024 3:13 PM WAREHOUSE INSULATION WORKER) HEMOGLOBIN 7.3(L) 13.6 - 16.5 g/dL 11/20/2024 3:31 PM WAREHOUSE INSULATION WORKER [facility] [employer] [facility] HEMATOCRIT 22.5(L) 40.0 - 48.0 % 11/20/2024 3:31 PM WAREHOUSE INSULATION WORKER [facility] [employer] [facility] Blood Venipuncture / Unknown 11/20/2024 3:13 PM WAREHOUSE INSULATION WORKER 11/20/2024 3:28 PM WAREHOUSE INSULATION WORKER Best Aiken MD HEMATOLOGY ORDERABLES Selin l Result Performing Organization Address [facility] Co de Phone Number [facility] CLIA# [id number] [address] [place] [address] * POC ACTIVATED CLOTTING TIME (11/20/2024 1:23 PM WAREHOUSE INSULATION WORKER) Only the most recent of11 resultswithin the time period is included. ACTIVATED CLOTTING TIME POC 157 sec 11/20/2024 1:23 PM WAREHOUSE INSULATION WORKER [facility] Comment: Target Range(s): >400 sec. Cardiovascular Surgery >250 sec. when Cardiac Cath or other intervention is performed. <180 sec. to pull sheath Blood 11/20/2024 1:23 PM WAREHOUSE INSULATION WORKER 11/20/2024 1:52 PM WAREHOUSE INSULATION WORKER Diego Mcknight MD POINT OF CARE TESTING Selin l Result Performing Organization Address [facility] Co de Phone Number [facility] CLIA# [id number] [address] [place] [address] * XR OR (11/20/2024 1:12 PM WAREHOUSE INSULATION WORKER) Narrative [facility] POINT OF CARE - 11/20/2024 1:13 PM WAREHOUSE INSULATION WORKER Order information only. Exam was auto-finalized. Franca Dykes MD DIAGNOSTIC IMAGING ORDERABLES Final Result Performing Organization Address [facility] Co de Phone Number [facility] POINT OF CARE CLIA # [id number] [place] [address] * POC LACTIC ACID (11/20/2024 12:10 PM WAREHOUSE INSULATION WORKER) Only the most recent of2 resultswithin the time period is included. LACTIC ACID POC 0.6 <=2.0 mmol/L 11/20/2024 12:10 PM WAREHOUSE INSULATION WORKER [facility] SPECIMEN SOURCE, GASES POC Arterial 11/20/2024 12:10 PM [facility] Blood 11/20/2024 12:1 0 PM WAREHOUSE INSULATION WORKER 11/20/2024 12:11 PM WAREHOUSE INSULATION WORKER Diego Mcknight MD POINT OF CARE TESTING Selin tran Result [facility] CLIA# [id number] [address] [place] [address] * (ABNORMAL) BLOOD GAS,(INCL. H+H, LYTES, GLUC) (11/20/2024 12:10 PM WAREHOUSE INSULATION WORKER) Only the most recent of2 resultswithin the time period is included. PH BLOOD POC 7.37 7.35 - 7.45 11/20/2024 12:10 PM [facility] PCO2 POC 35 35 - 48 mm Hg 11/20/2024 12:10 PM [facility] PO2 POC 144(H) 83 - 108 mm Hg 11/20/2024 12:10 PM [facility] HCO3 (CALC) POC 20(L) 22 - 26 mmol/L 11/20/2024 12:10 PM [facility] O2 SATURATION POC 100(H) 94 - 98 % 11/20/2024 12:10 PM [facility] BASE EXCESS POC -5(L) -2 - 3 mmol/L 11/20/2024 12:10 PM [facility] HEMOGLOBIN POC 6.4(LL) 13.6 - 16.5 g/dL 11/20/2024 12:10 PM [facility] HEMATOCRIT POC 19(L) 40 - 48 % 11/20/2024 12:10 PM [facility] Comment:Estimated Value GLUCOSE POC 92 74 - 99 mg/dL 11/20/2024 12:10 PM [facility] SODIUM POC 131(L) 135 - 145 mmol/L 11/20/2024 12:10 PM [facility] POTASSIUM POC 5.8(H) 3.5 - 4.9 mmol/L 11/20/2024 12:10 PM [facility] CHLORIDE POC 105 98 - 107 mmol/L 11/20/2024 12:10 PM [facility] CALCIUM IONIZED POC 5.3(H) 4.8 - 5.2 mg/dL 11/20/2024 12:10 PM [facility] PH TEMP CORRECT 7.37 7.35 - 7.45 11/20/19 12:10 PM [facility] PCO2 TEMP CORRECT 35 35 - 48 mm Hg 11/20/2024 12:10 PM [facility] PO2 TEMP CORRECT 144(H) 83 - 108 mm Hg 11/20/2024 12:10 PM [facility] SPECIMEN SOURCE, GASES POC Arterial 11/20/2024 12:10 PM [facility] PATIENT'S TEMPERATURE POC 37.0 degrees 11/20/2024 12:10 PM [facility] OXYGEN CONTENT POC 9.0 mL/dL 11/20/2024 12:10 PM [facility] Blood, arterial 11/20/2024 1 2:10 PM WAREHOUSE INSULATION WORKER 11/20/2024 12:11 PM WAREHOUSE INSULATION WORKER us Diego Mcknight MD ABG ORDERABLES Final Resu lt [facility] CLIA# [id number] [place] [address] * (ABNORMAL) OXIMETRY (11/20/2024 12:10 PM WAREHOUSE INSULATION WORKER) Only the most recent of2 resultswithin the time period is included. OXYHEMOGLOBIN POC 96.4 94.0 - 97.0 % 11/20/2024 12:10 PM [facility] HEMOGLOBIN POC 6.4(LL) 13.6 - 16.5 g/dL 11/20/2024 12:10 PM [facility] OXYGEN CONTENT POC 9.0 mL/dL 11/20/2024 12:10 PM [facility] O2 SATURATION POC 100(H) 94 - 98 % 025 12:10 PM [facility] SPECIMEN SOURCE, GASES POC Arterial 11/20/2024 12:10 PM [facility] SAMPLE SITE, GASES POC N-SY 11/20/2024 12:10 PM [facility] Blood 11/20/2024 12:1 0 PM [employer] 11/20/2024 12:11 PM [employer] Diego Mcknight MD ABG ORDERABLES Final Resu lt Performing Organization Address City/[facility]/ZIP Co de Phone Number [facility] CLIA# [id number] [place] [address] * (ABNORMAL) METHEMOGLOBIN QUANTITATIVE (11/20/2024 12:10 PM [employer] WORK[employer]) Only the most recent of2 resultswithin the time period is included. [facility] Signature METHEMOGLOBIN QUANT POC 1.2 <=1.5 % 11/20/2024 12:10 PM [facility] HEMOGLOBIN POC 6.4(LL) 13.6 - 16.5 g/dL 11/20/2024 12:10 PM [facility] Blood 11/20/2024 12:1 0 PM [employer] 11/20/2024 12:11 PM [employer] Diego Mcknight MD ABG ORDERABLES Final Resu lt Performing Organization Address City/[facility]/ZIP Co de Phone Number [facility] CLIA# [id number] [place] [address] * (ABNORMAL) CARBOXYHEMOGLOBIN (11/20/2024 12:10 PM [employer] WORK[employer]) Only the most recent of2 resultswithin the time period is included. CARBOXYHEMOGLOBIN POC 2.4 <=7.0 % 02/2025 12:10 PM [employer] WORK[employer] [facility] HEMOGLOBIN POC 6.4(LL) 13.6 - 16.5 g/dL 11/20/2024 12:10 PM [employer] [facility] Blood 11/20/2024 12:1 0 PM [employer] WORK[employer] 11/20/2024 12:11 PM [employer] Diego Mcknight MD ABG ORDERABLES Final Resu lt [facility] CLIA# [id number] [place] [address] * [place] ANES INSERT CATH, ART, PERCUT, SHORTTERM (11/20/2024 8:36 AM [employer] WORK[employer]) Narrative Darius Dela Cruz AA-C - 11/20/2024 8:36 AM [employer] WORKER Darius Dela Cruz AA-C 11/20/2024 8:38 AM [...] size: 20 G Catheter Length (in.): 1.75 Frederika Identification: palpation technique Number of attempts: 1 Successful placement: yes Assessment: blood return through port Procedure uneventful Post-procedure: line secured and dressing applied Kianna Lu MD PROCEDURE/MINOR SURGICAL ORDERAB LES Final Result * [place] ANES VNPNXR 3 YEARS/> PHYS/QHP SKILL, PERIPHERAL IV ADULT (11/20/2024 8:15 AM WAREHOUSE INSULATION WORKER) Narrative Darius Dela Cruz AA-C - 11/20/2024 8:15 AM WAREHOUSE INSULATION WORKER Darius Dela Cruz AA-C 11/20/2024 8:36 AM Peripheral Line Insertion Date/Time: 11/20/2024 8:15 AM Staffing Performed: WIND ENERGY PROJECT MANAGER/CAA Authorized by: Kianna Lu MD Performed [...] PROCEDURE/MINOR SURGICAL ORDERAB LES Final Result * [place] ANES INSERT ENDOTRACHEAL AIRWAY (11/20/2024 7:36 AM WAREHOUSE INSULATION WORKER) Narrative Darius Dela Cruz AA-C - 11/20/2024 7:36 AM WAREHOUSE INSULATION WORKER Darius Dela Cruz AA-C 11/20/2024 8:17 AM Airway Date/Time: 11/20/2024 7:36 AM Location: OR Plan: elective intubation Patient Identity Confirmed by: Verbally with patient and armband Airway: not difficult Staffing Performed: Student NA/AA Authorized by: Kianna Lu MD Performed by: Darius Dela Cruz AA-C Television Anchor: Kianna Lu MD Indications and Patient Condition: [...] * EXTRA TUBE (BLUE) (11/18/2024 12:41 AM WAREHOUSE INSULATION WORKER) Blood Venipuncture / Unknown 11/18/2024 12:41 AM WAREHOUSE INSULATION WORKER 11/18/2024 12:41 AM WAREHOUSE INSULATION WORKER Brant Leonard MD HEMATOLOGY ORDERABLES Final Re sult [facility] [id number] [place] [address] * (ABNORMAL) UNFRACTIONATED HEPARIN MONITORING (11/17/2024 5:21 PM WAREHOUSE INSULATION WORKER) Only the most recent of8 resultswithin the time period is included. ANTI-XA UNFRAC HEP >1.10(HH) See Interpreta tion. IU/mL 11/17/2024 7:01 PM WAREHOUSE INSULATION WORKER [facility] Blood Venipuncture / Unknown 11/17/2024 5:21 PM WAREHOUSE INSULATION WORKER 11/17/2024 6:06 PM WAREHOUSE INSULATION WORKER Narrative [facility] - 11/17/2024 7:01 PM WAREHOUSE INSULATION WORKER Unfractionated Heparin Therapeutic Range: 0.30-0.70 IU/ml Refer to pharmacy adult heparin protocol for further recommendation. The reference range for this test is specific to the anticoagulant and is not appropriate for monitoring patients on a DOAC protocol. Miracle Horne NP HEMATOLOGY ORDERABLES Final Res ult Performing Organization Address City/[facility]/ZIP Co de Phone Number [facility]# [id number] [place] [address] * NM MYOCARD PERF IMAG SPECT MULT (11/17/2024 9:21 AM WAREHOUSE INSULATION WORKER) 11/17/2024 9:23 AM WAREHOUSE INSULATION WORKER Narrative INTERFACE SYSTEM - 11/17/2024 10:58 AM WAREHOUSE INSULATION WORKER HISTORY: Preoperative risk assessment RESTING EKG: Normal [...] physician: Dr. Michi Mckeon Michi Mckeon MD DC ORDERABLES Final Result Performing Organization Address City/[facility] Co de Phone Number INTERFACE SYSTEM Refer to clinic/hospital department * NM PHARMACOLOGICAL STRESS TEST (11/17/2024 8:23 AM WAREHOUSE INSULATION WORKER) [facility] POINT OF CARE - 11/17/2024 8:24 AM WAREHOUSE INSULATION WORKER Order information only. Exam was auto-finalized. Michi Mckeon MD DC ORDERABLES Final Result Performing Organization Address City/[facility] Co de Phone Number [facility] POINT OF CARE [place] # [id number] [place] [address] * ECHOCARDIOGRAM W/ CONTRAST AGENT (11/16/2024 4:48 PM WAREHOUSE INSULATION WORKER) [facility] EJECTION FRACTION 60 INTERFACE SYSTEM 11/16/2024 4:19 PM WAREHOUSE INSULATION WORKER Narrative INTERFACE SYSTEM - 11/16/2024 10:08 PM WAREHOUSE INSULATION WORKER Transthoracic Echocardiogram Patient: Jc De Leon Study ID: [id number] Gender: M : 1960 Age: 64 Race: HUNTER Height 182.9cm Study Date: 11/16/2024 Weight: 92.1kg Access. #: [id number] BP: 133 / 75 *Referring Physician:Miracle Crane *Ordering Physician:Miracle Crane *Air Intelligence Officer:José Antonio Cordoba RDCS,[facility] minister of religion: Nurse: Indications: Dyspnea. Syncope / Near syncope. [...] values inside specified reference range. Procedure data: [facility] Comparison was made to the study [...] Bedside. Prepared and Electronically Authenticated Michi Mckeon [id number] Procedure Note Michi Mckeon MD - 11/16/2024 Transthoracic Echocardiogram Patient: Jc De Leon Study ID: [id number] Gender: M : 1960 Age: 64 Race: [facility] Height 182.9cm Study Date: 11/16/2024 Weight: 92.1kg Access. #: [id number] BP: 133 / 75 *Referring Physician:* Miracle Horne *Ordering Physician:* Miracle Horne *Air Intelligence Officer:José Antonio Cordoba RDCS,[facility] minister of religion: Nurse: Indications: Dyspnea. Syncope / Near syncope. [...] values inside specified reference range. Procedure data: [facility] Comparison was made to the study [...] Bedside. 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) [facility] Signature CHOLESTEROL 75 <200 mg/dL 11/16/2024 3:58 PM [facility] [employer] [facility] TRIGLYCERIDE 98 <150 mg/dL 11/16/2024 3:58 PM [facility] HDL 33(L) 40 - 59 mg/dL 11/16/2024 3:58 PM [facility] LDL CALCULATED 22 <100 mg/dL 11/16/2024 3:58 PM [facility] NON-HDL CHOLESTEROL 42 <130 mg/dL 11/16/2024 3:58 PM [facility] Blood Venipuncture / Unknown 11/16/2024 5:09 AM 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 11/16/2024 6:29 AM WAREHOUSE INSULATION WORKER [facility] LABORATORY [facility] - 11/16/2024 3:58 PM WAREHOUSE INSULATION WORKER TOTAL CHOLESTEROL mg/dL Desirable <200 Borderline high [...] Leonard MD CHEMISTRY ORDERABLES Final Res ult [facility] SERVICES - [facility]# [id number] [place] [address] * CTA ABD AORTA BI ILIOFEM W AND/OR WO (11/15/2024 6:53 PM WAREHOUSE INSULATION WORKER) Anatomical Region Laterality Modality Abdomen Computed Tomogra phy 11/15/2024 6:23 PM WAREHOUSE INSULATION WORKER Impressions 11/15/2024 8:13 PM WAREHOUSE INSULATION WORKER IMPRESSION: 1. Extensive multifocal atherosclerotic disease as [...] right kidney. DICTATION LOCATION: Location 7 - [facility] Narrative 11/15/2024 8:13 PM WAREHOUSE INSULATION WORKER EXAMINATION: CTA ABD AORTA BI ILIOFEM W [...] disease. 3. Absent right kidney. DICTATION LOCATION: [address] [facility] CT ORDERABLES Selin l Result * CTA CHEST W AND/OR WO CONTRAST (11/15/2024 6:51 PM WAREHOUSE INSULATION WORKER) Anatomical Region Laterality Modality Chest Computed Tomogra phy 11/15/2024 6:29 PM WAREHOUSE INSULATION WORKER Impressions 11/15/2024 7:40 PM WAREHOUSE INSULATION WORKER IMPRESSION: 1. No evidence of pulmonary embolism. 2. Similar appearance of bilateral pulmonary nodules, most consistent with metastatic disease. Redemonstration of enlarged aortopulmonary lymph node. Increased subcarinal lymph node. 3. Small bilateral pleural effusions. 4. Unchanged lucent lesion at the T12 inferior endplate, most suggestive of metastatic focus. DICTATION LOCATION: [address] Narrative 11/15/2024 7:40 PM WAREHOUSE INSULATION WORKER EXAMINATION: CTA CHEST W AND/OR WO CONTRAST [...] suggestive of metastatic focus. DICTATION LOCATION: Location [address] [place] [address] ORDERABLES Final Result * BLOOD CULTURE (11/15/2024 3:23 PM WAREHOUSE INSULATION WORKER) Only the most recent of2 resultswithin the time period is included. [facility] BLOOD CULTURE No growth 11/20/2024 9:03 PM WAREHOUSE INSULATION WORKER [facility] Blood (Peripheral) Venipuncture / Unknown 11/15/2024 3:23 PM WAREHOUSE INSULATION WORKER 11/15/2024 3:51 PM WAREHOUSE INSULATION WORKER Miracle Horne NP MICROBIOLOGY - GENERAL ORDERABL ES Final Result [facility]# [id number] [address] [facility] ALEJANDRO WILLIE VIRGEN [address] * HEPATITIS B SURFACE ANTIGEN (11/15/2024 1:48 AM WAREHOUSE INSULATION WORKER) [facility] HEPATITIS B SURFACE AG NON-REACT THOMAS Non-react thomas 11/15/2024 6:48 PM WAREHOUSE INSULATION WORKER [facility] Comment:A non-reactive test result does not exclude the possibility of exposure to or infection with hepatitis B. Blood Venipuncture / Unknown 11/15/2024 1:48 AM WAREHOUSE INSULATION WORKER 11/15/2024 1:57 AM WAREHOUSE INSULATION WORKER Romel Bangura MD CHEMISTRY ORDERABLES Final Resul t [facility] CLIA# [id number] [place] [address] * US VENOUS DOPPLER LEG BILATERAL (11/14/2024 4:48 PM WAREHOUSE INSULATION WORKER) Anatomical Region Laterality Modality Lower Extremity Ultrasound 11/14/2024 4:49 PM WAREHOUSE INSULATION WORKER Impressions 11/14/2024 5:07 PM WAREHOUSE INSULATION WORKER IMPRESSION: Normal. DICTATION LOCATION: [address] Narrative 11/14/2024 5:07 PM WAREHOUSE INSULATION WORKER EXAMINATION: US VENOUS DOPPLER LEG BILATERAL DATE: [...] evidence of DVT. IMPRESSION: Normal. DICTATION LOCATION: [address] us Joseph Yee NP US ORDERABLES Final Result * MRI FOOT WO CONTRAST LEFT (11/14/2024 3:11 PM WAREHOUSE INSULATION WORKER) Anatomical Region Laterality Modality Ankle / Foot Magnetic Resonan ce 11/14/2024 3:11 PM WAREHOUSE INSULATION WORKER Impressions 11/14/2024 3:37 PM WAREHOUSE INSULATION WORKER IMPRESSION: 1. Wound at the distal 1st digit, with underlying bony signal alteration at the 1st distal phalangeal tuft, suggesting sequela of osteomyelitis, potentially with more chronic appearance, with partial acute component questioned. 2. Wound at the 3rd digit with underlying bony signal alteration at the distal shaft and tuft of the 3rd distal phalanx, most consistent with localized osteomyelitis. DICTATION LOCATION: Location [address] [place] [address] Narrative 11/14/2024 3:37 PM WAREHOUSE INSULATION WORKER EXAMINATION: MRI FOOT WO CONTRAST LEFT DATE: [...] consistent with localized osteomyelitis. DICTATION LOCATION: Location [address] [place] [address] Joseph Yee NP MR ORDERABLES Final Result * MRI FOOT WO CONTRAST RIGHT (11/14/2024 2:47 PM WAREHOUSE INSULATION WORKER) Anatomical Region Laterality Modality Ankle / Foot Magnetic Resonan ce 11/14/2024 2:48 PM WAREHOUSE INSULATION WORKER Impressions 11/14/2024 3:14 PM WAREHOUSE INSULATION WORKER IMPRESSION: First distal phalanx fractures are again noted. There is diffuse first distal phalangeal marrow edema and possibly soft tissue gas in the great toe. Osteomyelitis cannot be excluded in the setting of fracture but is highly suspected based on review of the 11/09/2024 outside radiographs. DICTATION LOCATION: [address] Narrative 11/14/2024 3:14 PM WAREHOUSE INSULATION WORKER EXAMINATION: MRI FOOT WO CONTRAST RIGHT DATE: [...] the 11/09/2024 outside radiographs. DICTATION LOCATION: Location [address] [place] [address] us Joseph Yee NP MR ORDERABLES Final Result * HEMOGLOBIN A1C (11/14/2024 12:58 AM WAREHOUSE INSULATION WORKER) HEMOGLOBIN A1C 5.4 <=5.6 % 11/14/2024 2:30 AM WAREHOUSE INSULATION WORKER [facility] [employer] [facility] EST. AVG GLUCOSE, A1C 108 mg/dL 11/14/2024 2:30 AM WAREHOUSE INSULATION WORKER [facility] [employer] [facility] Blood Venipuncture / Unknown 11/14/2024 12:58 AM WAREHOUSE INSULATION WORKER 11/14/2024 2:12 AM WAREHOUSE INSULATION WORKER Narrative [facility] [employer] [facility] - 11/14/2024 2:30 AM WAREHOUSE INSULATION WORKER HGB A1C INTERPRETATION NORMAL: <5.7% PRE-DIABETES: 5.7 - 6.4% DIABETES: 6.5% OR GREATER us Joseph Yee NP CHEMISTRY ORDERABLES Final Res ult [facility] CLIA# [id number] [place] [address] * (ABNORMAL) COMPREHENSIVE METABOLIC PANEL (11/14/2024 12:58 AM WAREHOUSE INSULATION WORKER) SODIUM 129(L) 136 - 145 mmol/L 11/14/2024 2:44 AM [facility] POTASSIUM 4.2 3.4 - 5.1 mmol/L 11/14/2024 2:44 AM [facility] CHLORIDE 91(L) 98 - 107 mmol/L 11/14/2024 2:44 AM [facility] CO2 25 22 - 29 mmol/L 11/14/2024 2:44 AM [facility] CALCIUM 9.3 8.6 - 10.4 mg/dL 11/14/2024 2:44 AM [facility] BUN 44(H) 6 - 20 mg/dL 11/14/2024 2:44 AM [facility] CREATININE 7.14(H) 0.67 - 1.17 mg/dL 11/14/2024 2:44 AM [facility] GLUCOSE 100(H) 74 - 99 mg/dL 11/14/2024 2:44 AM [facility] TOTAL PROTEIN 6.1(L) 6.3 - 8.7 g/dL 11/14/2024 2:44 AM [facility] ALBUMIN 3.1(L) 3.5 - 5.2 g/dL 11/14/2024 2:44 AM [facility] BILIRUBIN TOTAL <0.2(L) 0.2 - 1.1 mg/dL 11/14/2024 2:44 AM [facility] ALKALINE PHOSPHATASE 67 40 - 150 U/L 11/14/2024 2:44 AM [facility] AST 20 0 - 41 U/L 11/14/2024 2:44 AM [facility] ALT 17 0 - 41 U/L 11/14/2024 2:44 AM [facility] GFR 8(L) >=60 mL/min/1.7 3 sq meter 11/14/2024 2:44 AM [facility] Comment:eGFR calculated with 2020 CKD-EPI equation. Vegetarian diet, extremely high or low muscle mass, and may affect results. Cystatin C with Glomerular Filtration Rate is a suitable alternative for these patients. ANION GAP 13 8 - 16 mmol/L 11/14/2024 2:44 AM [facility] Blood Venipuncture / Unknown 11/14/2024 12:58 AM WAREHOUSE INSULATION WORKER 11/14/2024 2:12 AM WAREHOUSE INSULATION WORKER us Joseph Yee NP CHEMISTRY ORDERABLES Final Res ult [facility] [id number] [address] [place] [address] * US DOPPLER VENOUS ARM BILATERAL (11/14/2024 12:20 AM WAREHOUSE INSULATION WORKER) Anatomical Region Laterality Modality Upper Extremity Ultrasound 11/14/2024 12:2 1 AM WAREHOUSE INSULATION WORKER Impressions 11/14/2024 7:07 AM WAREHOUSE INSULATION WORKER IMPRESSION: 1. No evidence of deep vein thrombosis in either upper extremity. DICTATION LOCATION: Location [address] [place] [address] Narrative 11/14/2024 7:07 AM WAREHOUSE INSULATION WORKER EXAMINATION: US DOPPLER VENOUS ARM BILATERAL DATE: [...] either upper extremity. DICTATION LOCATION: Location - [facility] Joseph Yee NP US ORDERABLES Final Result * MRI PRIOR STUDY (11/10/2024 6:35 AM WAREHOUSE INSULATION WORKER) Only the most recent of2 resultswithin the time period is included. [facility] POINT [facility] - 11/14/2024 5:38 AM WAREHOUSE INSULATION WORKER This exam was auto finalized to allow images to be scanned to PACS. External Provider [facility] MR ORDERABLES Final Res ult Performing Organization Address [facility]/ZIP Co de Phone Number [facility] POINT OF [facility] CLIA # [id number] [place] [address] * XR PRIOR STUDY (11/09/2024 8:00 PM WAREHOUSE INSULATION WORKER) Only the most recent of6 resultswithin the time period is included. [facility] POINT OF CARE - 11/14/2024 5:41 AM WAREHOUSE INSULATION WORKER This exam was auto finalized to allow images to be scanned to PACS. External Provider [facility] DIAGNOSTIC IMAGING ORDERA BLES Final Result Performing Organization Address [facility]/ZIP Co de Phone Number [facility] CLIA # [id number] [place] [address] * CT PRIOR STUDY (11/09/2024 3:30 AM WAREHOUSE INSULATION WORKER) Narrative [facility] - 11/14/2024 5:47 AM WAREHOUSE INSULATION WORKER This exam was auto finalized to allow images to be scanned to PACS. 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
--- OUTSIDE RECORDS SUMMARY | 2025-02-04 17:26 | XMS_ITS | Referral Summary ---
Author Organization [facility] [place] [address] Address [address] [place] [address] Care Team Providers Care Rehabilitation Consultant Name Role Phone Gia Clark Primary Care Provider [phone] Harry Loredo MD Unavailable Rachell Mcnulty MD Unavailable [phone] Ramonita Feldman RN Unavailable [phone] Encounters Date Type Department Care Team Description 01/24/[address] [facility] Medical Group Cardiology [address] [place] [address] Harry Loredo MD 11/27/[address] [facility] Home Care Services [address] [place] [address] [place] [phone] Sarah Gannon 11/26/[address] [facility] Home Care Services [address] [place] [address] [address] [place] [address] Unknown, Notinfile from Last 3 [...] (09/02/2022): Added automatically from request for surgery [id number] Hypertension 02/14/2022 Renal mass 02/14/2022 Immunizations Immunization [...] Treatment Not on file Insurance [facility] [address] [id number] Care Teams Rehabilitation Consultant Relationship Specialty Start Date End Date Gia Clark PA [address] [place] [address] PCP - General Physician Solar Technician 09/15/22 Harry Loredo MD [address] [facility] [address] [place] [address] Consulting Physician Cardiovascular Disease 03/18/24 Rachell Mcnulty MD [address] [facility] [address] [place] [address] Referring Physician Nephrology 06/05/24 Ramonita Feldman, RN [address] [place] [address] Transit Mixer Operator 06/05/24
--- OUTSIDE RECORDS SUMMARY | 2025-02-04 17:26 | XMS_ITS ---
Author Organization [facility] Address [address] [place] [address] Care Team Providers Care Contract Modeler Name Role Phone Unavailable Primary Care Provider [...]
--- OUTSIDE RECORDS SUMMARY | 2025-02-04 17:26 | XMS_ITS | Data Portability ---
Author Organization MIRNA ALICAIDionic[facility] Leo Address [address] [place] [address] Care Team Providers Care Nursing Home Manager Name Role Phone GIA JACOBS Primary [...] D, 25-hydrox y, total, serum 2022 023 [place] [facility], [address], [place], [address], 12/20/2022 17:09:37 vitamin B12 + folate, serum or blood 2022 023 [place] [facility], [address], [address], [place], [address], 12/20/2022 17:09:36 pro BNP (pro B-type natriuret ic peptide), serum or plasma 2022 023 [place] [facility], [address], [place], [address], 12/20/2022 13:14:15 CMP, serum or plasma 2022 023 [place] [facility], [address], [address], [place], [address], 12/20/2022 13:11:06 lipid panel, serum 2022 023 [place] [facility], [address], [address], [place], [address], 12/20/2022 13:11:05 CBC w/ auto diff 2022 023 [place] [facility], [address], [place], [address], 12/20/2022 17:09:40 TSH + free T4, serum 2022 023 [place] [facility], [address], [place], [address], 12/20/2022 17:09:35 HbA1c (hemoglob in A1c), blood 2022 023 [email or web address] In-Office Order, Internal Use Only DO Not Attach Compendium DO Not Attach Compendium, Do Not Delete/merge, [id number] 12/19/2022 12:08:18 Referral gastroent erologist referral 2022 023 [place] Magnus Marie MD, [address] [facility], [address], [place], [address], 11/14/2022 14:55:02 Procedures None recorded. Surgeries None recorded. Imaging US, echocardi ogram, transthor acic, complete, w/ color flow [address] [facility], [address], [place], [address], 11/03/2023 15:21:02 Medication Orders nicotine 21 mg/24 hr daily transderm al patch 2024 025 [place] [id number], [address] [facility], [place], [place], [id number], 12/24/2024 17:04:56 Eliquis 5 mg tablet 03/2024 [facility] #89036, [address], [place], [id number], 12/24/2024 17:18:54 furosemid e 20 mg tablet 2024 [facility] #30606, [address], [place], [id number], 12/24/2024 17:18:53 sodium bicarbona te 650 mg tablet 2024 [facility] #34008, [address] [place] [address], [id number], 12/24/2024 17:32:20 amlodipin e 10 mg tablet 2024 [facility] #18740, [address], [place], [id number], 12/24/2024 17:07:58 hydralazi ne 50 mg tablet 2024 [facility] #48299, [address] [place] [address], [id number], 12/24/2024 17:18:53 metoprolo l succinate ER 200 mg tablet,ex tended release 24 hr 2024 [facility] #60811, [address], [place], [id number], 12/24/2024 17:18:54 Breo Ellipta 200 mcg-25 mcg/dose powder for inhalatio n 2024 [facility] #09444, [address], [place], [id number], 12/24/2024 17:18:54 atorvasta tin 40 mg tablet 2024 025 [place] #50436, [address], [place], [id number], 12/24/2024 17:18:54 hydralazi ne 25 mg tablet 2022 023 [facility] #96239, [address], [place], [id number], 12/24/2024 17:04:14 metoprolo l succinate ER 100 mg tablet,ex tended release 24 hr 2022 023 [facility] #86246, [address], [place], [id number], 12/24/2024 17:02:30 amlodipin e 10 mg tablet 2022 023 [email or web address] [facility] #99362, [address], [place], [id number], 12/24/2024 16:46:13 Patient TargetsNo targets recorded. 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 Referral for Screening for malignant neoplasm of colon Referring Physician: Gia Jacobs, Family Medicine, Encounter Date: 10/24/2022 Results Created Date Observation Date Name Description Value Unit Range Abnormal Flag Note LastModifiedBy Organization Detail LastModifiedTime 12/20/19 23 12/19/2022 LIPID PANEL WITH LDL/H DL RATIO cholesterol, total 130.5 mg/dL 140.0- 200.0 below low normal Not Available [facility] ([facility]) [address], [place], [address], 12/20/2022 13:11:05 12/20/19 23 12/19/2022 LIPID PANEL WITH LDL/H DL RATIO triglyceride s 66 mg/dL <=150 Not Available [facility] ([facility]) [address] [place], [address], 12/20/2022 13:11:05 12/20/19 23 12/19/2022 LIPID PANEL WITH LDL/H DL RATIO HDL cholesterol 54.1 mg/dL 40.0-1 00.0 Not Available [facility] ([facility]) [address] [place], [address], 12/20/2022 13:11:05 12/20/19 23 12/19/2022 LIPID PANEL WITH LDL/H DL RATIO VLDL cholesterol cornelio 13.20 mg/dL 5.00-4 0.00 Not Available [facility] ([facility]) [address] [place], [address], 12/20/2022 13:11:05 12/20/19 23 12/19/2022 LIPID PANEL WITH LDL/H DL RATIO LDL chol calc ([facility]) 62.7 Not Available [facility] ([facility]) [address] [place], [address], 12/20/2022 13:11:05 12/20/19 23 12/19/2022 LIPID PANEL WITH LDL/H DL RATIO LDL/HDL ratio 1.2 Not Available [facility] ([facility]) [address] [place], [address], 12/20/2022 13:11:05 12/20/19 23 12/20/2022 COMP. METAB OLIC PANEL (14) glucose 98 mg/dL 65-99 ANION GP 24.0 mmol/ L N OSMOL 304.0 mOsM/ L H REFER ENCE RANGE : 275.0 -301. 0 Not Available [facility] ([facility]) [address] [place], [address], 12/20/2022 13:11:06 12/20/19 23 12/20/2022 COMP. METAB OLIC PANEL (14) BUN 72 mg/dL 8-26 panic high Not Available [facility] ([facility]) [address] [facility] [place], [address], 12/20/2022 13:11:06 12/20/19 23 12/20/2022 COMP. METAB OLIC PANEL (14) creatinine 5.47 mg/dL 0.50-1 .40 panic high Not Available [facility] ([facility]) [address] [facility] [place], [address], 12/20/2022 13:11:06 12/20/19 23 12/20/2022 COMP. METAB OLIC PANEL (14) eGFR 11 mL/mi n/1.7 3 >=60 below low normal Not Available [facility] ([facility]) [address] [facility] [place], [address], 12/20/2022 13:11:06 12/20/19 23 12/20/2022 COMP. METAB OLIC PANEL (14) BUN/creatini ne ratio 13.1 Not Available [facility] ([facility]) [address] [facility] [place], [address], 12/20/2022 13:11:06 12/20/19 23 12/20/2022 COMP. METAB OLIC PANEL (14) sodium 141.9 mmol/ L 136.0- 144.0 Not Available [facility] ([facility]) [address] [facility] [place], [address], 12/20/2022 13:11:06 12/20/19 23 12/20/2022 COMP. METAB OLIC PANEL (14) potassium 5.0 mmol/ L 3.5-5. 3 Not Available [facility] ([facility]) [address] [facility] [place], [address], 12/20/2022 13:11:06 12/20/19 23 12/20/2022 COMP. METAB OLIC PANEL (14) chloride 105 mmol/ l 101-11 1 Not Available [facility] ([facility]) [address] [facility] [place], [address], 12/20/2022 13:11:06 12/20/19 23 12/20/2022 COMP. METAB OLIC PANEL (14) carbon dioxide, total 17.9 mmol/ L 21.0-3 2.0 below low normal Not Available [facility] ([facility]) [address] [facility] [place], [address], 12/20/2022 13:11:06 12/20/19 23 12/20/2022 COMP. METAB OLIC PANEL (14) calcium 9.7 mg/dL 8.2-10 .0 Not Available [facility] ([facility]) [address] [facility] [place], [address], 12/20/2022 13:11:06 12/20/19 23 12/20/2022 COMP. METAB OLIC PANEL (14) protein, total 6.6 g/dL 6.7-8. 2 below low normal Not Available [facility] ([facility]) [address] [facility] [place], [address], 12/20/2022 13:11:06 12/20/19 23 12/20/2022 COMP. METAB OLIC PANEL (14) albumin 4.0 g/dL 3.5-5. 5 Not Available [facility] ([facility]) [address] [facility] [place], [address], 12/20/2022 13:11:06 12/20/19 23 12/20/2022 COMP. METAB OLIC PANEL (14) globulin, total 2.6 g/dL 1.5-4. 5 Not Available [facility] ([facility]) [address] [facility] [place], [address], 12/20/2022 13:11:06 12/20/19 23 12/20/2022 COMP. METAB OLIC PANEL (14) A/G ratio 1.6 Not Available [facility] ([facility]) [address] [place], [address], 12/20/2022 13:11:06 12/20/19 23 12/20/2022 COMP. METAB OLIC PANEL (14) bilirubin, total 0.3 mg/dL 0.0-1. 2 Not Available [facility] ([facility]) [address] [place], [address], 12/20/2022 13:11:06 12/20/19 23 12/20/2022 COMP. METAB OLIC PANEL (14) alkaline phosphatase 87.0 IU/L 42.0-1 21.0 Not Available [facility] ([facility]) [address] [place], [address], 12/20/2022 13:11:06 12/20/19 23 12/20/2022 COMP. METAB OLIC PANEL (14) AST (SGOT) 16.3 U/L 10.0-4 2.0 Not Available [facility] ([facility]) [address] [place], [address], 12/20/2022 13:11:06 12/20/19 23 12/20/2022 COMP. METAB OLIC PANEL (14) ALT (SGPT) 20.7 U/L 10.0-6 0.0 Not Available [facility] ([facility]) [address] [place], [address], 12/20/2022 13:11:06 12/20/19 23 12/20/2022 TSH+F REE T4 TSH 1.010 uIU/m L 0.450- 4.500 Not Available [facility] ([facility]) [address] [place], [address], 12/20/2022 17:09:35 12/20/19 23 12/20/2022 TSH+F REE T4 T4,free(dire ct) 1.88 NG/dL 0.82-1 .77 above high normal Not Available [facility] ([facility]) [address], [place], [address], 12/20/2022 17:09:35 12/20/19 23 12/20/2022 HEMOG LOBIN A1C hemoglobin A1C - % Test not perfo rmed. No laven deepti top tube submi tted. Predi abete s: 5.7 - 6.4 Diabe daniel: >6.4 Glyce david contr ol for adult s with diabe daniel: <7.0 Not Available [facility] ([facility]) [address], [place], [address], 12/20/2022 17:09:36 12/20/19 23 12/20/2022 VITAM IN [...] Delon ferrer [place]: [facility] Press . 2. Kris emerson MF, Britney choe [place], Chas off-F errar i MERCHANT, et al. Evalu ation , treat ment, and preve ntion of vitam in D defic iency : an Endoc rine Socie ty clini cornelio pract ice guide line. JCEM. 2010; 96(7) :1911 -30. Not Available [facility] ([facility]) [address], [place], [address], 12/20/2022 17:09:37 03/06/20 23 12/20/2022 CBC WITH DIFFE RENTI AL/PL ATELE T WBC - x10e3 /uL Test not perfo rmed. No laven deepti top tube submi tted. Not Available [facility] ([facility]) [address], [place], [address], 12/20/2022 17:09:40 12/20/19 23 12/20/2022 CBC WITH DIFFE RENTI AL/PL ATELE T RBC - Test not perfo rmed Not Available [facility] ([facility]) [address] [place], [address], 12/20/2022 17:09:40 12/20/19 23 12/20/2022 CBC WITH DIFFE RENTI AL/PL ATELE T hemoglobin - Test not perfo rmed Not Available [facility] ([facility]) [address], [place], [address], 12/20/2022 17:09:40 12/20/19 23 12/20/2022 CBC WITH DIFFE RENTI AL/PL ATELE T hematocrit - Test not perfo rmed Not Available [facility] ([facility]) [address], [place], [address], 12/20/2022 17:09:40 12/20/19 23 12/20/2022 CBC WITH DIFFE RENTI AL/PL ATELE T platelets - Test not perfo rmed Not Available [facility] ([facility]) [address] [place], [address], 12/20/2022 17:09:40 12/20/19 23 12/20/2022 CBC WITH DIFFE RENTI AL/PL ATELE T neutrophils - Test not perfo rmed Not Available [facility] ([facility]) [address] [place], [address], 12/20/2022 17:09:40 12/20/19 23 12/20/2022 CBC WITH DIFFE RENTI AL/PL ATELE T lymphs - Test not perfo rmed Not Available [facility] ([facility]) [address] [place], [address], 12/20/2022 17:09:40 12/20/19 23 12/20/2022 CBC WITH DIFFE RENTI AL/PL ATELE T monocytes - Test not perfo rmed Not Available [facility] ([facility]) [address] [place], [address], 12/20/2022 17:09:40 12/20/19 23 12/20/2022 CBC WITH DIFFE RENTI AL/PL ATELE T eos - Test not perfo rmed Not Available [facility] ([facility]) [address], [place], [address], 12/20/2022 17:09:40 12/20/19 23 12/20/2022 CBC WITH DIFFE RENTI AL/PL ATELE T lymphs (absolute) - Test not perfo rmed Not Available [facility] ([facility]) [address] [place], [address], 12/20/2022 17:09:40 12/20/19 23 12/20/2022 CBC WITH DIFFE RENTI AL/PL ATELE T eos (absolute) - Test not perfo rmed Not Available [facility] ([facility]) [address] [place], [address], 12/20/2022 17:09:40 12/20/19 23 12/20/2022 CBC WITH DIFFE RENTI AL/PL ATELE T baso (absolute) - Test not perfo rmed Not Available [facility] ([facility]) [address] [place], [address], 12/20/2022 17:09:40 12/20/19 23 12/20/2022 VITAM IN B12 AND FOLAT E vitamin B12 635 pg/mL 232-12 45 Not Available [facility] ([facility]) [address], [place], [address], 12/20/2022 17:09:36 12/20/19 23 12/20/2022 VITAM IN B12 AND FOLAT E folate (folic acid), serum 6.7 NG/mL >3.0 A serum folat e lynnette ntrat ion of less than 3.1 ng/mL is consi dered to repre sent clini cornelio defic iency . Not Available [facility] ([facility]) [address], [place], [address], 12/20/2022 17:09:36 12/20/1912/20/2022 NT-IN OBNP nt-probnp 4880 pg/mL 0-210 above high [...] enden t 300 pg/mL Not Available [facility] ([facility]) [address] [facility] [address], [place], [address], 12/20/2022 17:09:35 12/20/19 23 12/20/2022 SPECI MEN STATU S REPOR T specimen status report TNP Test not perfo rmed. No laven deepti top tube submi tted. TEST: [id number] Hemog lobin A1c Not Available [facility] ([facility]) [address], [place], [address], 12/20/2022 17:09:34 12/20/19 23 12/20/2022 SPECI MEN STATU S REPOR T specimen status report TNP No laven deepti top tube submi tted. TEST: 9 CBC With Diffe renti al/Pl atele t Not Available [facility] ([facility]) [address], [place], [address], 12/20/2022 13:11:05 12/20/19 23 12/19/2022 HbA1c (hemo globi n A1c), blood HbA1c 5.3 Not Available In-Office Order Internal Use Only DO Not Attach Compendium DO Not Attach Compendium, Do Not Delete/merge, [id number] 12/19/2022 11:44:02 12/20/19 23 12/20/2022 SPECI MEN STATU S REPOR T specimen status report TNP Test not perfo rmed. No laven deepti top tube submi tted. 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 Not Available Not Available 12/24/2024 17:32:29 11/14/19 25 11/14/2024 CBC W Auto Diffe renti al panel - Blood hemoglobin 7.8 g/dL low: 13.6g/ dLhigh : 16.5g/ dL low HEMOG LOBIN 7.8 (L) 13.6 - 16.5 g/dL 11/14 2:15 AM [facility] Not Available Not Available 12/24/2024 17:32:29 11/14/19 25 11/14/2024 CBC W Auto Diffe nathanti al panel - Blood hematocrit [volume fraction] of blood by automated count 24.6 % low: 40%hig h: 48% low HEMAT OCRIT 24.6 (L) 40.0 - 48.0 % 11/14 2:15 AM [employer] [facility] Not Available Not Available 12/24/2024 17:32:29 11/14/19 25 11/14/2024 CBC W Auto Diffe nathanti al panel - Blood MCV 109.8 fL low: 82fLhi gh: 99fL high MCV 109.8 (H) 82.0 - 99.0 fL 11/14 2:15 AM [facility] Not Available Not Available 12/24/2024 17:32:29 11/14/19 25 11/14/2024 CBC W Auto Diffe nathanti al panel - Blood MCH 34.8 pg low: 27.2pg high: 32.6pg high MCH 34.8 (H) 27.2 - 32.6 pg 11/14 2:15 AM [facility] Not Available Not Available 12/24/2024 17:32:29 11/14/19 25 11/14/2024 CBC W Auto Diffe renti al panel - Blood MCHC 31.7 g/dL low: 31.5g/ dLhigh : 35.5g/ dL MCHC 31.7 31.5 - 35.5 g/dL 11/14 2:15 AM [facility] Not Available Not Available 12/24/2024 17:32:29 11/14/19 25 11/14/2024 CBC W Auto Diffe renti al panel - Blood RDW 15 % low: 11.5%h igh: 14.5% high RDW 15.0 (H) 11.5 - 14.5 % 11/14 2:15 AM [employer] [facility] Not Available Not Available 12/24/2024 17:32:29 11/14/19 25 11/14/2024 CBC W Auto Diffe renti al panel - Blood RDW-stdev 60.4 fL low: 37.1fL high: 48.7fL high RDW-S TDEV 60.4 (H) 37.1 - 48.7 fL 11/14 2:15 AM [employer] [facility] Not Available Not Available 12/24/2024 17:32:29 11/14/19 25 11/14/2024 CBC W Auto Diffe renti al panel - Blood platelets [#/volume] in blood by automated count 360 K/uL low: 140K/u Lhigh: 350K/u L high PLATE LETS 360 (H) 140 - 350 K/uL 11/14 2:15 AM [employer] [facility] Not Available Not Available 12/24/2024 17:32:29 11/14/19 25 11/14/2024 CBC W Auto Diffe renti al panel - Blood MPV 10.2 fL low: 9.3fLh igh: 12.4fL MPV 10.2 9.3 - 12.4 fL 11/14 2:15 AM [employer] [facility] Not Available Not Available 12/24/2024 17:32:29 11/14/19 25 11/14/2024 CBC W Auto Diffe renti al panel - Blood neutrophils 78 % NEUTR OPHIL S 78 % 11/14 2:15 AM [employer] 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 Not Available Not Available 12/24/2024 17:32:29 11/14/19 25 11/14/2024 CBC W Auto Diffe renti al panel - Blood basophils 1 % BASOP HILS 1 % 11/14 2:15 AM [employer] [facility] Not Available Not Available 12/24/2024 17:32:29 11/14/19 25 11/14/2024 CBC W Auto Diffe renti al panel - Blood immature granulocytes 1 % IMMAT URE GRANU LOCYT ES 1 % 11/14 2:15 AM [employer] [facility] Not Available Not Available 12/24/2024 17:32:29 11/14/19 25 11/14/2024 CBC W Auto Diffe renti al panel - Blood neutrophils [#/volume] in blood by automated count 9.97 K/uL low: 1.9K/u Lhigh: 7K/uL high NEUTR OPHIL ABSOL [place] 9.97 (H) 1.90 - 7.00 K/uL 11/14 2:15 AM [employer] [facility] Not Available Not Available 12/24/2024 17:32:29 11/14/19 25 11/14/2024 CBC W Auto Diffe renti al panel - Blood lymphocyte absolute 1.21 K/uL low: 0.7K/u Lhigh: 4.5K/u L LYMPH OCYTE ABSOL [place] 1.21 0.70 - 4.50 K/uL 11/14 2:15 AM [employer] 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 Not Available Not Available 12/24/2024 17:32:29 11/14/19 25 11/14/2024 CBC W Auto Diffe renti al panel - Blood immature granulocytes absolute 0.11 K/uL low: 0K/uLh igh: 0.03K/ uL high IMMAT URE GRANU LOCYT ES ABSOL [place] 0.11 (H) 0.00 - 0.03 K/uL 11/14 2:15 AM [employer] [facility] Not Available Not Available 12/24/2024 [...] - 145 mmol/ L 11/14 2:44 AM [facility] Not Available Not Available 12/24/2024 17:32:07 11/14/19 25 11/14/2024 Compr ehens francisco metab olic 1999 panel - Serum or Plasm a potassium [moles/volum e] in serum or plasma 4.2 mmol/ L low: 3.4mmo l/Lhig h: 5.1mmo l/L POTAS SIUM 4.2 3.4 - 5.1 mmol/ L 11/14 2:44 AM [facility] Not Available Not Available 12/24/2024 17:32:07 11/14/19 25 11/14/2024 Compr ehens francisco metab olic 1999 panel - Serum or Plasm a chloride 91 mmol/ L low: 98mmol /Lhigh : 107mmo l/L low CHLOR BURT 91 (L) 98 - 107 mmol/ L 11/14 2:44 AM [employer] [facility] Not Available Not Available 12/24/2024 17:32:07 11/14/19 25 11/14/2024 Compr ehens francisco metab olic 1999 panel - Serum or Plasm a carbon dioxide, total [moles/volum e] in serum or plasma 25 mmol/ L low: 22mmol /Lhigh : 29mmol /L CO2 25 22 - 29 mmol/ L 11/14 2:44 AM [employer] [facility] Not Available Not Available 12/24/2024 17:32:07 11/14/19 25 11/14/2024 Compr ehens francisco metab olic 1999 panel - Serum or Plasm a calcium 9.3 mg/dL low: 8.6mg/ dLhigh : 10.4mg /dL CALCI UM 9.3 8.6 - 10.4 mg/dL 11/14 2:44 AM [employer] [facility] Not Available Not Available 12/24/2024 17:32:07 11/14/19 25 11/14/2024 Compr ehens francisco metab olic 1999 panel - Serum or Plasm a BUN 44 mg/dL low: 6mg/dL high: 20mg/d L high BUN 44 (H) 6 - 20 mg/dL 11/14 2:44 AM [employer] [facility] Not Available Not Available 12/24/2024 17:32:07 11/14/19 25 11/14/2024 Compr ehens franc[place] metab olic 1999 panel - Serum or Plasm a creatinine [mass/volume ] in serum or plasma 7.14 mg/dL low: 0.67mg /dLhig h: 1.17mg /dL high CREAT ININE 7.14 (H) 0.67 - 1.17 mg/dL 11/14 2:44 AM [employer] [facility] Not Available Not Available 12/24/2024 17:32:07 11/14/19 25 11/14/2024 Compr e[facility] [place] metab olic 1999 panel - Serum or Plasm a glucose [mass/volume ] in serum or plasma 100 mg/dL low: 74mg/d Lhigh: 99mg/d L high GLUCO SE 100 (H) 74 - 99 mg/dL 11/14 2:44 AM [employer] [facility] Not Available Not Available 12/24/2024 17:32:07 11/14/19 25 11/14/2024 Compr e[facility] [place] metab olic 1999 panel - Serum or Plasm a total protein 6.1 g/dL low: 6.3g/d Lhigh: 8.7g/d L low TOTAL PROTE IN 6.1 (L) 6.3 - 8.7 g/dL 11/14 2:44 AM [employer] [facility] Not Available Not Available 12/24/2024 17:32:07 11/14/19 25 11/14/2024 Compr e[facility] [place] metab olic 2000 panel - Serum or Plasm a albumin 3.1 g/dL low: 3.5g/d Lhigh: 5.2g/d L low ALBUM IN 3.1 (L) 3.5 - 5.2 g/dL 11/14 2:44 AM [employer] [facility] Not Available Not Available 12/24/2024 17:32:07 11/14/19 25 11/14/2024 Compr e[facility] [place] metab olic 1999 panel - Serum or Plasm a bilirubin total low: 0.2mg/ dLhigh : 1.1mg/ dL low BILIR UBIN TOTAL <0.2 (L) 0.2 - 1.1 mg/dL 11/14 2:44 AM [employer] [facility] Not Available Not Available 12/24/2024 17:32:07 11/14/19 25 11/14/2024 Compr e[facility] [place] metab olic 2000 panel - Serum or Plasm a alkaline phosphatase 67 U/L low: 40U/Lh igh: 150U/L ALKAL INE PHOSP HATAS E 67 40 - 150 U/L 11/14 2:44 AM [employer] [facility] Not Available Not Available 12/24/2024 17:32:07 11/14/19 25 11/14/2024 Compr ehens francisco metab olic 1999 panel - Serum or Plasm a AST 20 U/L low: 0U/Lhi gh: 41U/L AST 20 0 - 41 U/L 11/14 2:44 AM [employer] [facility] Not Available Not Available 12/24/2024 17:32:07 11/14/19 25 11/14/2024 Compr ehens francisco metab olic 1999 panel - Serum or Plasm a alanine aminotransfe rase [enzymatic activity/vol ume] in blood 17 U/L low: 0U/Lhi gh: 41U/L ALT 17 0 - 41 U/L 11/14 2:44 AM [employer] 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 Not Available Not Available 12/24/2024 17:32:29 11/15/19 25 11/15/2024 Renal funct ion 1999 panel - Serum or Plasm a potassium [moles/volum e] in serum or plasma 4.3 mmol/ L low: 3.4mmo l/Lhig h: 5.1mmo l/L POTAS SIUM 4.3 3.4 - 5.1 mmol/ L 11/15 2:27 AM [employer] [facility] Not Available Not Available 12/24/2024 17:32:29 11/15/19 25 11/15/2024 Renal funct ion 1999 panel - Serum or Plasm a chloride 94 mmol/ L low: 98mmol /Lhigh : 107mmo l/L low CHLOR BURT 94 (L) 98 - 107 mmol/ L 11/15 2:27 AM [employer] [facility] Not Available Not Available 12/24/2024 17:32:29 11/15/19 25 11/15/2024 Renal funct ion 1999 panel - Serum or Plasm a carbon dioxide, total [moles/volum e] in serum or plasma 20 mmol/ L low: 22mmol /Lhigh : 29mmol /L low CO2 20 (L) 22 - 29 mmol/ L 11/15 2:27 AM [employer] [facility] Not Available Not Available 12/24/2024 17:32:29 11/15/19 25 11/15/2024 Renal funct ion 1999 panel - Serum or Plasm a calcium 9.3 mg/dL low: 8.6mg/ dLhigh : 10.4mg /dL CALCI UM 9.3 8.6 - 10.4 mg/dL 11/15 2:27 AM [employer] [facility] Not Available Not Available 12/24/2024 17:32:29 11/15/19 25 11/15/2024 Renal funct ion 1999 panel - Serum or Plasm a BUN 51 mg/dL low: 6mg/dL high: 20mg/d L high BUN 51 (H) 6 - 20 mg/dL 11/15 2:27 AM [employer] [facility] Not Available Not Available 12/24/2024 17:32:29 11/15/19 25 11/15/2024 Renal funct ion 1999 panel - Serum or Plasm a creatinine [mass/volume ] in serum or plasma 8.68 mg/dL low: 0.67mg /dLhig h: 1.17mg /dL high CREAT ININE 8.68 (H) 0.67 - 1.17 mg/dL 11/15 2:27 AM [employer] [facility] Not Available Not Available 12/24/2024 17:32:29 11/15/19 25 11/15/2024 Renal funct ion 1999 panel - Serum or Plasm a glucose [mass/volume ] in serum or plasma 103 mg/dL low: 74mg/d Lhigh: 99mg/d L high GLUCO SE 103 (H) 74 - 99 mg/dL 11/15 2:27 AM [employer] [facility] Not Available Not Available 12/24/2024 17:32:29 11/15/19 25 11/15/2024 Renal funct ion 1999 panel - Serum or Plasm a albumin 2.9 g/dL low: 3.5g/d Lhigh: 5.2g/d L low ALBUM IN 2.9 (L) 3.5 - 5.2 g/dL 11/15 2:27 AM [employer] [facility] Not Available Not Available 12/24/2024 17:32:29 11/15/19 25 11/15/2024 Renal funct ion 1999 panel - Serum or Plasm a phosphorus 4.4 mg/dL low: 2.5mg/ dLhigh : 4.5mg/ dL PHOSP HORUS 4.4 2.5 - 4.5 mg/dL 11/15 2:27 AM [facility] Not Available Not Available 12/24/2024 17:32:29 11/15/19 25 11/15/2024 Renal funct ion 1999 panel - Serum or Plasm a glomerular filtration rate/1.73 sq M.predicted [volume rate/area] in serum, plasma or blood by creatinine-b ased formula (CKD-epi 2020) 6 text: >=60 mL/min /1.73 sq meter low GFR 6 (L) >=60 mL/mi n/1.7 3 sq meter 11/15 2:27 AM [facility] Not Available Not Available 12/24/2024 17:32:29 11/15/19 25 11/15/2024 Renal funct ion 1999 panel - Serum or Plasm a anion gap 16 mmol/ L low: 8mmol/ Lhigh: 16mmol /L ANION GAP 16 8 - 16 mmol/ L 11/15 2:27 AM [facility] Not Available Not Available [...] 4.0 - 9.8 K/uL 11/15 2:35 AM [facility] Not Available Not Available 12/24/2024 17:32:29 11/15/19 25 11/15/2024 CBC W Auto Diffe renti al panel - Blood RBC 2.23 text: 4.50 - 5.40 M/uL low RBC 2.23 (L) 4.50 - 5.40 M/uL 11/15 2:35 AM [employer] [facility] Not Available Not Available 12/24/2024 17:32:29 11/15/19 25 11/15/2024 CBC W Auto Diffe renti al panel - Blood hemoglobin 7.6 g/dL low: 13.6g/ dLhigh : 16.5g/ dL low HEMOG LOBIN 7.6 (L) 13.6 - 16.5 g/dL 11/15 2:35 AM [facility] [facility] Not Available Not Available 12/24/2024 17:32:29 11/15/19 25 11/15/2024 CBC W Auto Diffe renti al panel - Blood hematocrit [volume fraction] of blood by automated count 23.9 % low: 40%hig h: 48% low HEMAT OCRIT 23.9 (L) 40.0 - 48.0 % 11/15 2:35 AM [employer] [facility] Not Available Not Available 12/24/2024 17:32:29 11/15/19 25 11/15/2024 CBC W Auto Diffe renti al panel - Blood MCV 107.2 fL low: 82fLhi gh: 99fL high MCV 107.2 (H) 82.0 - 99.0 fL 11/15 2:35 AM [employer] [facility] Not Available Not Available 12/24/2024 17:32:29 11/15/19 25 11/15/2024 CBC W Auto Diffe renti al panel - Blood MCH 34.1 pg low: 27.2pg high: 32.6pg high MCH 34.1 (H) 27.2 - 32.6 pg 11/15 2:35 AM [employer] [facility] Not Available Not Available 12/24/2024 17:32:29 11/15/19 25 11/15/2024 CBC W Auto Diffe renti al panel - Blood MCHC 31.8 g/dL low: 31.5g/ dLhigh : 35.5g/ dL MCHC 31.8 31.5 - 35.5 g/dL 11/15 2:35 AM [employer] 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 Not Available Not Available 12/24/2024 17:32:29 11/15/19 25 11/15/2024 CBC W Auto Diffe renti al panel - Blood RDW-stdev 58.8 fL low: 37.1fL high: 48.7fL high RDW-S TDEV 58.8 (H) 37.1 - 48.7 fL 11/15 2:35 AM 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 ASSISTANT [employer] Pinche [facility] Not Available Not Available 12/24/2024 17:32:29 11/15/19 25 11/15/2024 CBC W Auto Diffe renti al panel - Blood platelets [#/volume] in blood by automated count 391 K/uL low: 140K/u Lhigh: 350K/u L high PLATE LETS 391 (H) 140 - 350 K/uL 11/15 2:35 AM 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 ASSISTANT Haha Pinche [facility] Not Available Not Available 12/24/2024 17:32:29 11/15/19 25 11/15/2024 CBC W Auto Diffe renti al panel - Blood MPV 9.8 fL low: 9.3fLh igh: 12.4fL MPV 9.8 9.3 - 12.4 fL 11/15 2:35 AM [employer] [facility] Not Available Not Available 12/24/2024 17:32:29 11/15/19 25 11/15/2024 CBC W Auto Diffe renti al panel - Blood neutrophils 81 % NEUTR OPHIL S 81 % 11/15 2:35 AM [employer] [facility] Not Available Not Available 12/24/2024 17:32:29 11/15/19 25 11/15/2024 CBC W Auto Diffe renti al panel - Blood lymphocytes/ 100 leukocytes in blood by automated count 7 % LYMPH OCYTE S 7 % 11/15 2:35 AM [employer] [facility] Not Available Not Available 12/24/2024 17:32:29 11/15/19 25 11/15/2024 CBC W Auto Diffe renti al panel - Blood monocytes 8 % MONOC YTES 8 % 11/15 2:35 AM 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 ASSISTANT [employer] [facility] Not Available Not Available 12/24/2024 17:32:29 11/15/19 25 11/15/2024 CBC W Auto Diffe renti al panel - Blood eosinophils 2 % EOSIN OPHIL S 2 % 11/15 2:35 AM 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 ASSISTANT [employer] [facility] Not Available Not Available 12/24/2024 17:32:29 11/15/19 25 11/15/2024 CBC W Auto Diffe renti al panel - Blood basophils 1 % BASOP HILS 1 % 11/15 2:35 AM [employer] [facility] Not Available Not Available 12/24/2024 17:32:29 11/15/19 25 11/15/2024 CBC W Auto Diffe renti al panel - Blood immature granulocytes 1 % IMMAT URE GRANU LOCYT ES 1 % 11/15 2:35 AM 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 ASSISTANT [employer] [facility] Not Available Not Available 12/24/2024 17:32:29 11/15/19 25 11/15/2024 CBC W Auto Diffe renti al panel - Blood neutrophils [#/volume] in blood by automated count 9.37 K/uL low: 1.9K/u Lhigh: 7K/uL high NEUTR OPHIL ABSOL [place] 9.37 (H) 1.90 - 7.00 K/uL 11/15 2:35 AM [employer] [facility] Not Available Not Available 12/24/2024 17:32:29 11/15/19 25 11/15/2024 CBC W Auto Diffe renti al panel - Blood lymphocyte absolute 0.82 K/uL low: 0.7K/u Lhigh: 4.5K/u L LYMPH OCYTE ABSOL [place] 0.82 0.70 - 4.50 K/uL 11/15 2:35 AM [employer] [facility] Not Available Not Available 12/24/2024 17:32:29 11/15/19 25 11/15/2024 CBC W Auto Diffe renti al panel - Blood monocyte absolute 0.94 K/uL low: 0.1K/u Lhigh: 1.3K/u L MONOC YTE ABSOL [place] 0.94 0.10 - 1.30 K/uL 11/15 2:35 AM [employer] [facility] Not Available Not Available 12/24/2024 17:32:29 11/15/19 25 11/15/2024 CBC W Auto Diffe renti al panel - Blood eosinophil absolute 0.23 K/uL low: 0K/uLh igh: 0.7K/u L EOSIN OPHIL ABSOL [place] 0.23 0.00 - 0.70 K/uL 11/15 2:35 AM [employer] [facility] Not Available Not Available 12/24/2024 17:32:29 11/15/19 25 11/15/2024 CBC W Auto Diffe renti al panel - Blood basophils absolute 0.07 K/uL low: 0K/uLh igh: 0.2K/u L BASOP HILS ABSOL [place] 0.07 0.00 - 0.20 K/uL 11/15 2:35 AM [employer] [facility] Not Available Not Available 12/24/2024 17:32:29 11/15/19 25 11/15/2024 CBC W Auto Diffe renti al panel - Blood immature granulocytes absolute 0.09 K/uL low: 0K/uLh igh: 0.03K/ uL high IMMAT URE GRANU LOCYT ES ABSOL [place] 0.09 (H) 0.00 - 0.03 K/uL 11/15 2:35 AM [employer] [facility] Not Available Not Available 12/24/2024 [...] VE Non-r eacti ve 11/15 6:48 PM 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 ASSISTANT [facility] Not Available Not Available [...] - 145 mmol/ L 11/16 7:04 AM 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 ASSISTANT Haha Pinche [facility] Not Available Not Available 12/24/2024 17:32:29 11/16/19 25 11/16/2024 Renal funct ion 1999 panel - Serum or Plasm a potassium [moles/volum e] in serum or plasma 4.3 mmol/ L low: 3.4mmo l/Lhig h: 5.1mmo l/L POTAS SIUM 4.3 3.4 - 5.1 mmol/ L 11/16 7:04 AM 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 ASSISTANT Haha Pinche [facility] Not Available Not Available 12/24/2024 17:32:29 11/16/19 25 11/16/2024 Renal funct ion 1999 panel - Serum or Plasm a chloride 100 mmol/ L low: 98mmol /Lhigh : 107mmo l/L [place]T 100 98 - 107 mmol/ L 11/16 7:04 AM 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 ASSISTANT Haha Pinche [facility] Not Available Not Available 12/24/2024 17:32:29 11/16/19 25 11/16/2024 Renal funct ion 1999 panel - Serum or Plasm a carbon dioxide, total [moles/volum e] in serum or plasma 22 mmol/ L low: 22mmol /Lhigh : 29mmol /L CO2 22 22 - 29 mmol/ L 11/16 7:04 AM [facility] Not Available Not Available 12/24/2024 17:32:29 11/16/19 25 11/16/2024 Renal funct ion 1999 panel - Serum or Plasm a calcium 9.5 mg/dL low: 8.6mg/ dLhigh : 10.4mg /dL CALCI UM 9.5 8.6 - 10.4 mg/dL 11/16 7:04 AM [facility] Not Available Not Available 12/24/2024 17:32:29 11/16/19 25 11/16/2024 Renal funct ion 1999 panel - Serum or Plasm a BUN 31 mg/dL low: 6mg/dL high: 20mg/d L high BUN 31 (H) 6 - 20 mg/dL 11/16 7:04 AM [employer] [facility] Not Available Not Available 12/24/2024 17:32:29 11/16/19 25 11/16/2024 Renal funct ion 1999 panel - Serum or Plasm a creatinine [mass/volume ] in serum or plasma 5.56 mg/dL low: 0.67mg /dLhig h: 1.17mg /dL high CREAT ININE 5.56 (H) 0.67 - 1.17 mg/dL 11/16 7:04 AM [employer] [facility] Not Available Not Available 12/24/2024 17:32:29 11/16/19 25 11/16/2024 Renal funct ion 1999 panel - Serum or Plasm a glucose [mass/volume ] in serum or plasma 98 mg/dL low: 74mg/d Lhigh: 99mg/d L GLUCO SE 98 74 - 99 mg/dL 11/16 7:04 AM [facility] Not Available Not Available 12/24/2024 17:32:29 11/16/19 25 11/16/2024 Renal funct ion 1999 panel - Serum or Plasm a albumin 3 g/dL low: 3.5g/d Lhigh: 5.2g/d L low ALBUM IN 3.0 (L) 3.5 - 5.2 g/dL 11/16 7:04 AM [employer] [facility] Not Available Not Available 12/24/2024 17:32:29 11/16/19 25 11/16/2024 Renal funct ion 1999 panel - Serum or Plasm a phosphorus 3.7 mg/dL low: 2.5mg/ dLhigh : 4.5mg/ dL PHOSP HORUS 3.7 2.5 - 4.5 mg/dL 11/16 7:04 AM [employer] [facility] Not Available Not Available 12/24/2024 17:32:29 11/16/19 25 11/16/2024 Renal funct ion 1999 panel - Serum or Plasm a glomerular filtration rate/1.73 sq M.predicted [volume rate/area] in serum, plasma or blood by creatinine-b ased formula (CKD-epi 2020) 11 text: >=60 mL/min /1.73 sq meter low GFR 11 (L) >=60 mL/mi n/1.7 3 sq meter 11/16 7:04 AM [facility] Not Available Not Available 12/24/2024 17:32:29 11/16/19 25 11/16/2024 Renal funct ion 1999 panel - Serum or Plasm a anion gap 14 mmol/ L low: 8mmol/ Lhigh: 16mmol /L ANION GAP 14 8 - 16 mmol/ L 11/16 7:04 AM [employer] [facility] Not Available Not Available 12/24/2024 [...] - 145 mmol/ L 11/17 11:05 AM [facility] Not Available Not Available 12/24/2024 17:32:29 11/17/19 25 11/17/2024 Renal funct ion 1999 panel - Serum or Plasm a potassium [moles/volum e] in serum or plasma 4.6 mmol/ L low: 3.4mmo l/Lhig h: 5.1mmo l/L POTAS SIUM 4.6 3.4 - 5.1 mmol/ L 11/17 11:05 AM [facility] Not Available Not Available 12/24/2024 17:32:29 11/17/19 25 11/17/2024 Renal funct ion 1999 panel - Serum or Plasm a chloride 98 mmol/ L low: 98mmol /Lhigh : 107mmo l/L [place] 98 98 - 107 mmol/ L 11/17 11:05 AM [employer] [facility] Not Available Not Available 12/24/2024 17:32:29 11/17/19 25 11/17/2024 Renal funct ion 1999 panel - Serum or Plasm a carbon dioxide, total [moles/volum e] in serum or plasma 18 mmol/ L low: 22mmol /Lhigh : 29mmol /L low CO2 18 (L) 22 - 29 mmol/ L 11/17 11:05 AM [facility] Not Available Not Available 12/24/2024 17:32:29 11/17/19 25 11/17/2024 Renal funct ion 1999 panel - Serum or Plasm a calcium 9.7 mg/dL low: 8.6mg/ dLhigh : 10.4mg /dL CALCI UM 9.7 8.6 - 10.4 mg/dL 11/17 11:05 AM [facility] Not Available Not Available 12/24/2024 17:32:29 11/17/19 25 11/17/2024 Renal funct ion 1999 panel - Serum or Plasm a BUN 31 mg/dL low: 6mg/dL high: 20mg/d L high BUN 31 (H) 6 - 20 mg/dL 11/17 11:05 AM [facility] Not Available Not Available 12/24/2024 17:32:29 11/17/19 25 11/17/2024 Renal funct ion 1999 panel - Serum or Plasm a creatinine [mass/volume ] in serum or plasma 5.92 mg/dL low: 0.67mg /dLhig h: 1.17mg /dL high CREAT ININE 5.92 (H) 0.67 - 1.17 mg/dL 11/17 11:05 AM [facility] Not Available Not Available 12/24/2024 17:32:29 11/17/19 25 11/17/2024 Renal funct ion 1999 panel - Serum or Plasm a glucose [mass/volume ] in serum or plasma 102 mg/dL low: 74mg/d Lhigh: 99mg/d L high GLUCO SE 102 (H) 74 - 99 mg/dL 11/17 11:05 AM [facility] Not Available Not Available 12/24/2024 17:32:29 11/17/19 25 11/17/2024 Renal funct ion 1999 panel - Serum or Plasm a albumin 3 g/dL low: 3.5g/d Lhigh: 5.2g/d L low ALBUM IN 3.0 (L) 3.5 - 5.2 g/dL 11/17 11:05 AM [employer] [facility] Not Available Not Available 12/24/2024 17:32:29 11/17/19 25 11/17/2024 Renal funct ion 1999 panel - Serum or Plasm a phosphorus 4 mg/dL low: 2.5mg/ dLhigh : 4.5mg/ dL PHOSP HORUS 4.0 2.5 - 4.5 mg/dL 11/17 11:05 AM [place] [facility] Not Available Not Available 12/24/2024 17:32:29 11/17/19 25 11/17/2024 Renal funct ion 1999 panel - Serum or Plasm a glomerular filtration rate/1.73 sq M.predicted [volume rate/area] in serum, plasma or blood by creatinine-b ased formula (CKD-epi 2020) 10 text: >=60 mL/min /1.73 sq meter low GFR 10 (L) >=60 mL/mi n/1.7 3 sq meter 11/17 11:05 AM [facility] Not Available Not Available 12/24/2024 17:32:29 11/17/19 25 11/17/2024 Renal funct ion 1999 panel - Serum or Plasm a anion gap 17 mmol/ L low: 8mmol/ Lhigh: 16mmol /L high ANION GAP 17 (H) 8 - 16 mmol/ L 11/17 11:05 AM [facility] Not Available Not Available [...] 4.0 - 9.8 K/uL 11/17 10:37 AM [facility] Not Available Not Available 12/24/2024 17:32:29 11/17/19 25 11/17/2024 CBC W Auto Diffe renti al panel - Blood RBC 2.37 text: 4.50 - 5.40 M/uL low RBC 2.37 (L) 4.50 - 5.40 M/uL 11/17 10:37 AM [facility] Not Available Not Available 12/24/2024 17:32:29 11/17/19 25 11/17/2024 CBC W Auto Diffe renti al panel - Blood hemoglobin 8.1 g/dL low: 13.6g/ dLhigh : 16.5g/ dL low HEMOG LOBIN 8.1 (L) 13.6 - 16.5 g/dL 11/17 10:37 AM 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 [employer] [facility] Not Available Not Available 12/24/2024 17:32:29 11/17/19 25 11/17/2024 CBC W Auto Diffe renti al panel - Blood hematocrit [volume fraction] of blood by automated count 26.3 % low: 40%hig h: 48% low HEMAT OCRIT 26.3 (L) 40.0 - 48.0 % 11/17 10:37 AM [facility] Not Available Not Available 12/24/2024 17:32:29 11/17/19 25 11/17/2024 CBC W Auto Diffe renti al panel - Blood MCV 111 fL low: 82fLhi gh: 99fL high MCV 111.0 (H) 82.0 - 99.0 fL 11/17 10:37 AM [facility] Not Available Not Available 12/24/2024 17:32:29 11/17/19 25 11/17/2024 CBC W Auto Diffe renti al panel - Blood MCH 34.2 pg low: 27.2pg high: 32.6pg high MCH 34.2 (H) 27.2 - 32.6 pg 11/17 10:37 AM [facility] Not Available Not Available 12/24/2024 17:32:29 11/17/19 25 11/17/2024 CBC W Auto Diffe renti al panel - Blood MCHC 30.8 g/dL low: 31.5g/ dLhigh : 35.5g/ dL low MCHC 30.8 (L) 31.5 - 35.5 g/dL 11/17 10:37 AM [employer] [facility] Not Available Not Available 12/24/2024 17:32:29 11/17/19 25 11/17/2024 CBC W Auto Diffe renti al panel - Blood RDW 15.3 % low: 11.5%h igh: 14.5% high RDW 15.3 (H) 11.5 - 14.5 % 11/17 10:37 AM [employer] [facility] Not Available Not Available 12/24/2024 17:32:29 11/17/19 25 11/17/2024 CBC W Auto Diffe renti al panel - Blood RDW-stdev 61.9 fL low: 37.1fL high: 48.7fL high RDW-S TDEV 61.9 (H) 37.1 - 48.7 fL 11/17 10:37 AM [employer] [facility] Not Available Not Available 12/24/2024 17:32:29 11/17/19 25 11/17/2024 CBC W Auto Diffe renti al panel - Blood platelets [#/volume] in blood by automated count 395 K/uL low: 140K/u Lhigh: 350K/u L high PLATE LETS 395 (H) 140 - 350 K/uL 11/17 10:37 AM [place] [facility] [employer] [facility] Not Available Not Available 12/24/2024 17:32:29 11/17/19 25 11/17/2024 CBC W Auto Diffe renti al panel - Blood MPV 9.7 fL low: 9.3fLh igh: 12.4fL MPV 9.7 9.3 - 12.4 fL 11/17 10:37 AM [employer] [facility] Not Available Not Available 12/24/2024 17:32:29 11/17/19 25 11/17/2024 CBC W Auto Diffe renti al panel - Blood neutrophils 78 % NEUTR OPHIL S 78 % 11/17 10:37 AM [employer] [facility] Not Available Not Available 12/24/2024 17:32:29 11/17/19 25 11/17/2024 CBC W Auto Diffe renti al panel - Blood lymphocytes/ 100 leukocytes in blood by automated count 9 % LYMPH OCYTE S 9 % 11/17 10:37 AM [employer] [facility] Not Available Not Available 12/24/2024 17:32:29 11/17/19 25 11/17/2024 CBC W Auto Diffe renti al panel - Blood monocytes 10 % MONOC YTES 10 % 11/17 10:37 AM [employer] [facility] Not Available Not Available 12/24/2024 17:32:29 11/17/19 25 11/17/2024 CBC W Auto Diffe renti al panel - Blood eosinophils 2 % EOSIN OPHIL S 2 % 11/17 10:37 AM [employer] [facility] Not Available Not Available 12/24/2024 17:32:29 11/17/19 25 11/17/2024 CBC W Auto Diffe renti al panel - Blood basophils 1 % BASOP HILS 1 % 11/17 10:37 AM [employer] [facility] Not Available Not Available 12/24/2024 17:32:29 11/17/19 25 11/17/2024 CBC W Auto Diffe renti al panel - Blood immature granulocytes 1 % IMMAT URE GRANU LOCYT ES 1 % 11/17 10:37 AM [employer] [facility] Not Available Not Available 12/24/2024 17:32:29 11/17/19 25 11/17/2024 CBC W Auto Diffe renti al panel - Blood neutrophils [#/volume] in blood by automated count 6.29 K/uL low: 1.9K/u Lhigh: 7K/uL NEUTR OPHIL ABSOL [place] 6.29 1.90 - 7.00 K/uL 11/17 10:37 AM [employer] [facility] Not Available Not Available 12/24/2024 17:32:29 11/17/19 25 11/17/2024 CBC W Auto Diffe renti al panel - Blood lymphocyte absolute 0.7 K/uL low: 0.7K/u Lhigh: 4.5K/u L LYMPH OCYTE ABSOL [place] 0.70 0.70 - 4.50 K/uL 11/17 10:37 AM [employer] [facility] Not Available Not Available 12/24/2024 17:32:29 11/17/19 25 11/17/2024 CBC W Auto Diffe renti al panel - Blood monocyte absolute 0.84 K/uL low: 0.1K/u Lhigh: 1.3K/u L MONOC YTE ABSOL [place] 0.84 0.10 - 1.30 K/uL 11/17 10:37 AM [employer] [facility] Not Available Not Available 12/24/2024 17:32:29 11/17/19 25 11/17/2024 CBC W Auto Diffe renti al panel - Blood eosinophil absolute 0.19 K/uL low: 0K/uLh igh: 0.7K/u L EOSIN OPHIL ABSOL [place] 0.19 0.00 - 0.70 K/uL 11/17 10:37 AM [facility] Not [facility] Not Available 12/24/2024 17:32:29 11/17/19 25 11/17/2024 CBC W Auto Diffe renti al panel - Blood basophils absolute 0.05 K/uL low: 0K/uLh igh: 0.2K/u L BASOP HILS ABSOL [place] 0.05 0.00 - 0.20 K/uL 11/17 10:37 AM [employer] [facility] Not Available Not Available 12/24/2024 17:32:29 11/17/19 25 11/17/2024 CBC W Auto Diffe renti al panel - Blood immature granulocytes absolute 0.06 K/uL low: 0K/uLh igh: 0.03K/ uL high IMMAT URE GRANU LOCYT ES ABSOL [place] 0.06 (H) 0.00 - 0.03 K/uL 11/17 10:37 AM [employer] [facility] [facility] Not Available Not Available 12/24/2024 [...] - 145 mmol/ L 11/18 1:00 PM [facility] Not Available Not Available 12/24/2024 17:32:29 11/18/19 25 11/18/2024 Renal funct ion 1999 panel - Serum or Plasm a potassium [moles/volum e] in serum or plasma 4.8 mmol/ L low: 3.4mmo l/Lhig h: 5.1mmo l/L POTAS SIUM 4.8 3.4 - 5.1 mmol/ L 11/18 1:00 PM [employer] [facility] Not Available Not Available 12/24/2024 17:32:29 11/18/19 25 11/18/2024 Renal funct ion 1999 panel - Serum or Plasm a chloride 97 mmol/ L low: 98mmol /Lhigh : 107mmo l/L low CHLOR BURT 97 (L) 98 - 107 mmol/ L 11/18 1:00 PM [employer] [facility] Not Available Not Available 12/24/2024 17:32:29 11/18/19 25 11/18/2024 Renal funct ion 1999 panel - Serum or Plasm a carbon dioxide, total [moles/volum e] in serum or plasma 19 mmol/ L low: 22mmol /Lhigh : 29mmol /L low CO2 19 (L) 22 - 29 mmol/ L 11/18 1:00 PM [employer] [facility] Not Available Not Available 12/24/2024 17:32:29 11/18/19 25 11/18/2024 Renal funct ion 1999 panel - Serum or Plasm a calcium 9.7 mg/dL low: 8.6mg/ dLhigh : 10.4mg /dL CALCI UM 9.7 8.6 - 10.4 mg/dL 11/18 1:00 PM [employer] [facility] Not Available Not Available 12/24/2024 17:32:29 11/18/19 25 11/18/2024 Renal funct ion 1999 panel - Serum or Plasm a BUN 48 mg/dL low: 6mg/dL high: 20mg/d L high BUN 48 (H) 6 - 20 mg/dL 11/18 1:00 PM [facility] Not Available Not Available 12/24/2024 17:32:29 11/18/19 25 11/18/2024 Renal funct ion 1999 panel - Serum or Plasm a creatinine [mass/volume ] in serum or plasma 7.68 mg/dL low: 0.67mg /dLhig h: 1.17mg /dL high CREAT ININE 7.68 (H) 0.67 - 1.17 mg/dL 11/18 1:00 PM [facility] Not Available Not Available 12/24/2024 17:32:29 11/18/19 25 11/18/2024 Renal funct ion 1999 panel - Serum or Plasm a glucose [mass/volume ] in serum or plasma 111 mg/dL low: 74mg/d Lhigh: 99mg/d L high GLUCO SE 111 (H) 74 - 99 mg/dL 11/18 1:00 PM 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 ASSISTANT [employer] Not Available Not Available 12/24/2024 17:32:29 11/18/19 25 11/18/2024 Renal funct ion 1999 panel - Serum or Plasm a albumin 3.2 g/dL low: 3.5g/d Lhigh: 5.2g/d L low ALBUM IN 3.2 (L) 3.5 - 5.2 g/dL 11/18 1:00 PM 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 ASSISTANT [facility] Not Available Not Available 12/24/2024 17:32:29 11/18/19 25 11/18/2024 Renal funct ion 1999 panel - Serum or Plasm a phosphorus 4.7 mg/dL low: 2.5mg/ dLhigh : 4.5mg/ dL high PHOSP HORUS 4.7 (H) 2.5 - 4.5 mg/dL 11/18 1:00 PM [employer] [facility] Not Available Not Available 12/24/2024 17:32:29 11/18/19 25 11/18/2024 Renal funct ion 1999 panel - Serum or Plasm a glomerular filtration rate/1.73 sq M.predicted [volume rate/area] in serum, plasma or blood by creatinine-b ased formula (CKD-epi 2020) 7 text: >=60 mL/min /1.73 sq meter low GFR 7 (L) >=60 mL/mi n/1.7 3 sq meter 11/18 1:00 PM [employer] [facility] Not Available Not Available 12/24/2024 17:32:29 11/18/19 25 11/18/2024 Renal funct ion 1999 panel - Serum or Plasm a anion gap 15 mmol/ L low: 8mmol/ Lhigh: 16mmol /L ANION GAP 15 8 - 16 mmol/ L 11/18 1:00 PM [employer] [facility] Not Available Not Available 12/24/2024 [...] 4.0 - 9.8 K/uL 11/19 3:01 PM [employer] [facility] Not Available Not Available 12/24/2024 17:32:30 11/19/19 25 11/19/2024 CBC W Auto Diffe renti al panel - Blood RBC 2.28 text: 4.50 - 5.40 M/uL low RBC 2.28 (L) 4.50 - 5.40 M/uL 11/19 3:01 PM [employer] [facility] Not Available Not Available 12/24/2024 17:32:30 11/19/19 25 11/19/2024 CBC W Auto Diffe renti al panel - Blood hemoglobin 7.9 g/dL low: 13.6g/ dLhigh : 16.5g/ dL low HEMOG LOBIN 7.9 (L) 13.6 - 16.5 g/dL 11/19 3:01 PM [facility] [employer] [facility] Not Available Not Available 12/24/2024 17:32:30 11/19/19 25 11/19/2024 CBC W Auto Diffe renti al panel - Blood hematocrit [volume fraction] of blood by automated count 24.8 % low: 40%hig h: 48% low HEMAT OCRIT 24.8 (L) 40.0 - 48.0 % 11/19 3:01 PM [facility] [employer] [facility] Not Available Not Available 12/24/2024 17:32:30 11/19/19 25 11/19/2024 CBC W Auto Diffe renti al panel - Blood MCV 108.8 fL low: 82fLhi gh: 99fL high MCV 108.8 (H) 82.0 - 99.0 fL 11/19 3:01 PM [facility] Not Available Not Available 12/24/2024 17:32:30 11/19/19 25 11/19/2024 CBC W Auto Diffe renti al panel - Blood MCH 34.6 pg low: 27.2pg high: 32.6pg high MCH 34.6 (H) 27.2 - 32.6 pg 11/19 3:01 PM [facility] [employer] [facility] Not Available Not Available 12/24/2024 17:32:30 11/19/19 25 11/19/2024 CBC W Auto Diffe renti al panel - Blood MCHC 31.9 g/dL low: 31.5g/ dLhigh : 35.5g/ dL MCHC 31.9 31.5 - 35.5 g/dL 11/19 3:01 PM [facility] [employer] 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 [facility] Not Available Not Available 12/24/2024 17:32:30 11/19/19 25 11/19/2024 CBC W Auto Diffe renti al panel - Blood neutrophils 74 % NEUTR OPHIL S 74 % 11/19 3:01 PM 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 ASSISTANT [facility] Not Available Not Available 12/24/2024 17:32:30 11/19/19 25 11/19/2024 CBC W Auto Diffe renti al panel - Blood lymphocytes/ 100 leukocytes in blood by automated count 13 % LYMPH OCYTE S 13 % 11/19 3:01 PM 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 ASSISTANT [facility] Not Available Not Available 12/24/2024 17:32:30 11/19/19 25 11/19/2024 CBC W Auto Diffe renti al panel - Blood monocytes 9 % MONOC YTES 9 % 11/19 3:01 PM [facility] Not Available Not Available 12/24/2024 17:32:30 11/19/19 25 11/19/2024 CBC W Auto Diffe renti al panel - Blood eosinophils 3 % EOSIN OPHIL S 3 % 11/19 3:01 PM [facility] [employer] [facility] Not Available Not Available 12/24/2024 17:32:30 11/19/19 25 11/19/2024 CBC W Auto Diffe renti al panel - Blood basophils 1 % BASOP HILS 1 % 11/19 3:01 PM [facility] Not Available Not Available 12/24/2024 17:32:30 11/19/19 25 11/19/2024 CBC W Auto Diffe renti al panel - Blood immature granulocytes 1 % IMMAT URE GRANU LOCYT ES 1 % 11/19 3:01 PM [facility] [employer] [facility] Not Available Not Available 12/24/2024 17:32:30 11/19/19 25 11/19/2024 CBC W Auto Diffe renti al panel - Blood neutrophils [#/volume] in blood by automated count 5.09 K/uL low: 1.9K/u Lhigh: 7K/uL NEUTR OPHIL ABSOL [place] 5.09 1.90 - 7.00 K/uL 11/19 3:01 PM 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 ASSISTANT [facility] Not Available Not Available 12/24/2024 17:32:30 11/19/19 25 11/19/2024 CBC W Auto Diffe renti al panel - Blood lymphocyte absolute 0.9 K/uL low: 0.7K/u Lhigh: 4.5K/u L LYMPH OCYTE ABSOL [place] 0.90 0.70 - 4.50 K/uL 11/19 3:01 PM 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 ASSISTANT [facility] Not Available Not Available 12/24/2024 17:32:30 11/19/19 25 11/19/2024 CBC W Auto Diffe renti al panel - Blood monocyte absolute 0.6 K/uL low: 0.1K/u Lhigh: 1.3K/u L MONOC YTE ABSOL [place] 0.60 0.10 - 1.30 K/uL 11/19 3:01 PM 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 ASSISTANT [facility] Not Available Not Available 12/24/2024 17:32:30 11/19/19 25 11/19/2024 CBC W Auto Diffe renti al panel - Blood eosinophil absolute 0.19 K/uL low: 0K/uLh igh: 0.7K/u L EOSIN OPHIL ABSOL [place] 0.19 0.00 - 0.70 K/uL 11/19 3:01 PM [facility] [employer] [facility] Not Available Not Available 12/24/2024 17:32:30 11/19/19 25 11/19/2024 CBC W Auto Diffe renti al panel - Blood basophils absolute 0.05 K/uL low: 0K/uLh igh: 0.2K/u L BASOP HILS ABSOL [place] 0.05 0.00 - 0.20 K/uL 11/19 3:01 PM [facility] [employer] [facility] Not Available Not Available 12/24/2024 17:32:30 11/19/19 25 11/19/2024 CBC W Auto Diffe renti al panel - Blood immature granulocytes absolute 0.04 K/uL low: 0K/uLh igh: 0.03K/ uL high IMMAT URE GRANU LOCYT ES ABSOL [place] 0.04 (H) 0.00 - 0.03 K/uL 11/19 3:01 PM [facility] [employer] [facility] Not Available Not Available 12/24/2024 17:32:30 11/19/19 [...] - 145 mmol/ L 11/19 3:59 PM 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 ASSISTANT [employer] [facility] Not Available Not Available 12/24/2024 17:32:30 11/19/19 25 11/19/2024 Basic metab olic 1999 panel - Serum or Plasm a potassium [moles/volum e] in serum or plasma 4.8 mmol/ L low: 3.4mmo l/Lhig h: 5.1mmo l/L POTAS SIUM 4.8 3.4 - 5.1 mmol/ L 11/19 3:59 PM 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 ASSISTANT [facility] Not Available Not Available 12/24/2024 17:32:30 11/19/19 25 11/19/2024 Basic metab olic 1999 panel - Serum or Plasm a chloride 103 mmol/ L low: 98mmol /Lhigh : 107mmo l/L CHLOR BURT 103 98 - 107 mmol/ L 11/19 3:59 PM 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 ASSISTANT [employer] [facility] Not Available Not Available 12/24/2024 17:32:30 11/19/19 25 11/19/2024 Basic metab olic 1999 panel - Serum or Plasm a carbon dioxide, total [moles/volum e] in serum or plasma 23 mmol/ L low: 22mmol /Lhigh : 29mmol /L CO2 23 22 - 29 mmol/ L 11/19 3:59 PM 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 ASSISTANT [employer] [facility] Not Available Not Available 12/24/2024 17:32:30 11/19/19 25 11/19/2024 Basic metab olic 2000 panel - Serum or Plasm a calcium 9.4 mg/dL low: 8.6mg/ dLhigh : 10.4mg /dL CALCI UM 9.4 8.6 - 10.4 mg/dL 11/19 3:59 PM 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 ASSISTANT [facility] Not Available Not Available 12/24/2024 17:32:30 11/19/19 25 11/19/2024 Basic metab olic 1999 panel - Serum or Plasm a BUN 31 mg/dL low: 6mg/dL high: 20mg/d L high BUN 31 (H) 6 - 20 mg/dL 11/19 3:59 PM 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 ASSISTANT [employer] [facility] Not Available Not Available 12/24/2024 17:32:30 11/19/19 25 11/19/2024 Basic metab olic 1999 panel - Serum or Plasm a creatinine [mass/volume ] in serum or plasma 6.07 mg/dL low: 0.67mg /dLhig h: 1.17mg /dL high CREAT ININE 6.07 (H) 0.67 - 1.17 mg/dL 11/19 3:59 PM [employer] [facility] Not Available Not Available 12/24/2024 17:32:30 11/19/19 25 11/19/2024 Basic metab olic 1999 panel - Serum or Plasm a glucose [mass/volume ] in serum or plasma 104 mg/dL low: 74mg/d Lhigh: 99mg/d L high GLUCO SE 104 (H) 74 - 99 mg/dL 11/19 3:59 PM [facility] Not Available Not Available 12/24/2024 17:32:30 11/19/19 25 11/19/2024 Basic metab olic 2000 panel - Serum or Plasm a glomerular filtration rate/1.73 sq M.predicted [volume rate/area] in serum, plasma or blood by creatinine-b ased formula (CKD-epi 2020) 10 text: >=60 mL/min /1.73 sq meter low GFR 10 (L) >=60 mL/mi n/1.7 3 sq meter 11/19 3:59 PM 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 ASSISTANT [facility] Not Available Not Available 12/24/2024 17:32:30 11/19/19 25 11/19/2024 Basic metab olic 2000 panel - Serum or Plasm a anion gap 10 mmol/ L low: 8mmol/ Lhigh: 16mmol /L ANION GAP 10 8 - 16 mmol/ L 11/19 3:59 PM 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 ASSISTANT [employer] [facility] Not Available Not Available 12/24/2024 [...] - 145 mmol/ L 11/19 4:11 AM [employer] [facility] Not Available Not Available 12/24/2024 17:32:30 11/19/19 25 11/19/2024 Renal funct ion 1999 panel - Serum or Plasm a potassium [moles/volum e] in serum or plasma 5.4 mmol/ L low: 3.4mmo l/Lhig h: 5.1mmo l/L high POTAS SIUM 5.4 (H) 3.4 - 5.1 mmol/ L 11/19 4:11 AM [employer] [facility] Not Available Not Available 12/24/2024 17:32:30 11/19/19 25 11/19/2024 Renal funct ion 1999 panel - Serum or Plasm a chloride 100 mmol/ L low: 98mmol /Lhigh : 107mmo l/L CHLOR BURT 100 98 - 107 mmol/ L 11/19 4:11 AM [employer] [facility] Not Available Not Available 12/24/2024 17:32:30 11/19/19 25 11/19/2024 Renal funct ion 1999 panel - Serum or Plasm a carbon dioxide, total [moles/volum e] in serum or plasma 19 mmol/ L low: 22mmol /Lhigh : 29mmol /L low CO2 19 (L) 22 - 29 mmol/ L 11/19 4:11 AM [facility] Not Available Not Available 12/24/2024 17:32:30 11/19/19 25 11/19/2024 Renal funct ion 1999 panel - Serum or Plasm a calcium 9.5 mg/dL low: 8.6mg/ dLhigh : 10.4mg /dL CALCI UM 9.5 8.6 - 10.4 mg/dL 11/19 4:11 AM [employer] [facility] Not Available Not Available 12/24/2024 17:32:30 11/19/19 25 11/19/2024 Renal funct ion 1999 panel - Serum or Plasm a BUN 58 mg/dL low: 6mg/dL high: 20mg/d L high BUN 58 (H) 6 - 20 mg/dL 11/19 4:11 AM [employer] [facility] Not Available Not Available 12/24/2024 17:32:30 11/19/19 25 11/19/2024 Renal funct ion 1999 panel - Serum or Plasm a creatinine [mass/volume ] in serum or plasma 9.54 mg/dL low: 0.67mg /dLhig h: 1.17mg /dL high CREAT ININE 9.54 (H) 0.67 - 1.17 mg/dL 11/19 4:11 AM [employer] [facility] Not Available Not Available 12/24/2024 17:32:30 11/19/19 25 11/19/2024 Renal funct ion 1999 panel - Serum or Plasm a glucose [mass/volume ] in serum or plasma 112 mg/dL low: 74mg/d Lhigh: 99mg/d L high GLUCO SE 112 (H) 74 - 99 mg/dL 11/19 4:11 AM [employer] [facility] Not Available Not Available 12/24/2024 17:32:30 11/19/19 25 11/19/2024 Renal funct ion 1999 panel - Serum or Plasm a albumin 3 g/dL low: 3.5g/d Lhigh: 5.2g/d L low ALBUM IN 3.0 (L) 3.5 - 5.2 g/dL 11/19 4:11 AM [employer] [facility] Not Available Not Available 12/24/2024 17:32:30 11/19/19 25 11/19/2024 Renal funct ion 1999 panel - Serum or Plasm a phosphorus 4.8 mg/dL low: 2.5mg/ dLhigh : 4.5mg/ dL high PHOSP HORUS 4.8 (H) 2.5 - 4.5 mg/dL 11/19 4:11 AM [employer] [facility] Not Available Not Available 12/24/2024 17:32:30 11/19/1911/19/2024 Renal funct ion 1999 panel - Serum or Plasm a glomerular filtration rate/1.73 sq M.predicted [volume rate/area] in serum, plasma or blood by creatinine-b ased formula (CKD-epi 2020) 6 text: >=60 mL/min /1.73 sq meter low GFR 6 (L) >=60 mL/mi n/1.7 3 sq meter 11/19 4:11 AM [employer] [facility] Not Available Not Available 12/24/2024 17:32:30 11/19/1911/19/2024 Renal funct ion 2000 panel - Serum or Plasm a anion gap 10 mmol/ L low: 8mmol/ Lhigh: 16mmol /L ANION GAP 10 8 - 16 mmol/ L 11/19 4:11 AM [employer] [facility] Not Available Not Available 12/24/2024 [...] 4.0 - 9.8 K/uL 11/19 3:41 AM [employer] [facility] Not Available Not Available 12/24/2024 17:32:30 11/19/19 25 11/19/2024 CBC W Auto Diffe renti al panel - Blood RBC 2.17 text: 4.50 - 5.40 M/uL low RBC 2.17 (L) 4.50 - 5.40 M/uL 11/19 3:41 AM [employer] [facility] Not Available Not Available 12/24/2024 17:32:30 11/19/19 25 11/19/2024 CBC W Auto Diffe renti al panel - Blood hemoglobin 7.3 g/dL low: 13.6g/ dLhigh : 16.5g/ dL low HEMOG LOBIN 7.3 (L) 13.6 - 16.5 g/dL 11/19 3:41 AM [employer] [facility] Not Available Not Available 12/24/2024 17:32:30 11/19/1911/19/2024 CBC W Auto Diffe renti al panel - Blood hematocrit [volume fraction] of blood by automated count 23.3 % low: 40%hig h: 48% low HEMAT OCRIT 23.3 (L) 40.0 - 48.0 % 11/19 3:41 AM [employer] [facility] Not Available Not Available 12/24/2024 17:32:30 11/19/19 25 11/19/2024 CBC W Auto Diffe renti al panel - Blood MCV 107.4 fL low: 82fLhi gh: 99fL high MCV 107.4 (H) 82.0 - 99.0 fL 11/19 3:41 AM [employer] [facility] Not Available Not Available 12/24/2024 17:32:30 11/19/19 25 11/19/2024 CBC W Auto Diffe renti al panel - Blood MCH 33.6 pg low: 27.2pg high: 32.6pg high MCH 33.6 (H) 27.2 - 32.6 pg 11/19 3:41 AM [facility] Not Available Not Available 12/24/2024 17:32:30 11/19/19 25 11/19/2024 CBC W Auto Diffe renti al panel - Blood MCHC 31.3 g/dL low: 31.5g/ dLhigh : 35.5g/ dL low MCHC 31.3 (L) 31.5 - 35.5 g/dL 11/19 3:41 AM [employer] [facility] Not Available Not Available 12/24/2024 17:32:30 11/19/19 25 11/19/2024 CBC W Auto Diffe renti al panel - Blood RDW 15.3 % low: 11.5%h igh: 14.5% high RDW 15.3 (H) 11.5 - 14.5 % 11/19 3:41 AM [employer] [facility] Not Available Not Available 12/24/2024 17:32:30 11/19/19 25 11/19/2024 CBC W Auto Diffe renti al panel - Blood RDW-stdev 60.8 fL low: 37.1fL high: 48.7fL high RDW-S TDEV 60.8 (H) 37.1 - 48.7 fL 11/19 3:41 AM [employer] [facility] Not Available Not Available 12/24/2024 17:32:30 11/19/19 25 11/19/2024 CBC W Auto Diffe renti al panel - Blood platelets [#/volume] in blood by automated count 385 K/uL low: 140K/u Lhigh: 350K/u L high PLATE LETS 385 (H) 140 - 350 K/uL 11/19 3:41 AM [employer] [facility] Not Available Not Available 12/24/2024 17:32:30 11/19/19 25 11/19/2024 CBC W Auto Diffe renti al panel - Blood MPV 9.7 fL low: 9.3fLh igh: 12.4fL MPV 9.7 9.3 - 12.4 fL 11/19 3:41 AM [employer] [facility] Not Available Not Available 12/24/2024 17:32:30 11/19/19 25 11/19/2024 CBC W Auto Diffe renti al panel - Blood neutrophils 77 % NEUTR OPHIL S 77 % 11/19 3:41 AM [facility] [place] [facility] Not Available Not Available 12/24/2024 17:32:30 11/19/19 25 11/19/2024 CBC W Auto Diffe renti al panel - Blood lymphocytes/ 100 leukocytes in blood by automated count 11 % LYMPH OCYTE S 11 % 11/19 3:41 AM [employer] [facility] Not Available Not Available 12/24/2024 17:32:30 11/19/19 25 11/19/2024 CBC W Auto Diffe renti al panel - Blood monocytes 9 % MONOC YTES 9 % 11/19 3:41 AM [employer] [facility] Not Available Not Available 12/24/2024 17:32:30 11/19/19 25 11/19/2024 CBC W Auto Diffe renti al panel - Blood eosinophils 3 % EOSIN OPHIL S 3 % 11/19 3:41 AM [employer] [facility] Not Available Not Available 12/24/2024 17:32:30 11/19/19 25 11/19/2024 CBC W Auto Diffe renti al panel - Blood basophils 1 % BASOP HILS 1 % 11/19 3:41 AM [facility] Not Available Not Available 12/24/2024 17:32:30 11/19/19 25 11/19/2024 CBC W Auto Diffe renti al panel - Blood immature granulocytes 1 % IMMAT URE GRANU LOCYT ES 1 % 11/19 3:41 AM [employer] [facility] Not Available Not Available 12/24/2024 17:32:30 11/19/19 25 11/19/2024 CBC W Auto Diffe renti al panel - Blood neutrophils [#/volume] in blood by automated count 7.24 K/uL low: 1.9K/u Lhigh: 7K/uL high NEUTR OPHIL ABSOL [place] 7.24 (H) 1.90 - 7.00 K/uL 11/19 3:41 AM [employer] [facility] Not Available Not Available 12/24/2024 17:32:30 11/19/19 25 11/19/2024 CBC W Auto Diffe renti al panel - Blood lymphocyte absolute 1 K/uL low: 0.7K/u Lhigh: 4.5K/u L LYMPH OCYTE ABSOL [place] 1.00 0.70 - 4.50 K/uL 11/19 3:41 AM [employer] [facility] Not Available Not Available 12/24/2024 17:32:30 11/19/1911/19/2024 CBC W Auto Diffe renti al panel - Blood monocyte absolute 0.81 K/uL low: 0.1K/u Lhigh: 1.3K/u L MONOC YTE ABSOL [place] 0.81 0.10 - 1.30 K/uL 11/19 3:41 AM [employer] [facility] Not Available Not Available 12/24/2024 17:32:30 11/19/19 25 11/19/2024 CBC W Auto Diffe renti al panel - Blood eosinophil absolute 0.25 K/uL low: 0K/uLh igh: 0.7K/u L EOSIN OPHIL ABSOL [place] 0.25 0.00 - 0.70 K/uL 11/19 3:41 AM [employer] [facility] Not Available Not Available 12/24/2024 17:32:30 11/19/19 25 11/19/2024 CBC W Auto Diffe renti al panel - Blood basophils absolute 0.07 K/uL low: 0K/uLh igh: 0.2K/u L BASOP HILS ABSOL [place] 0.07 0.00 - 0.20 K/uL 11/19 3:41 AM [employer] [facility] Not Available Not Available 12/24/2024 17:32:30 11/19/19 25 11/19/2024 CBC W Auto Diffe renti al panel - Blood immature granulocytes absolute 0.06 K/uL low: 0K/uLh igh: 0.03K/ uL high IMMAT URE GRANU LOCYT ES ABSOL [place] 0.06 (H) 0.00 - 0.03 K/uL 11/19 3:41 AM [employer] [facility] Not Available Not Available 12/24/2024 [...] - 145 mmol/ L 11/20 4:43 AM [employer] [facility] Not Available Not Available 12/24/2024 17:32:30 11/20/19 25 11/20/2024 Renal funct ion 1999 panel - Serum or Plasm a potassium [moles/volum e] in serum or plasma 5.1 mmol/ L low: 3.4mmo l/Lhig h: 5.1mmo l/L POTAS SIUM 5.1 3.4 - 5.1 mmol/ L 11/20 4:43 AM [facility] Not [facility] Not Available 12/24/2024 17:32:30 11/20/19 25 11/20/2024 Renal funct ion 1999 panel - Serum or Plasm a chloride 100 mmol/ L low: 98mmol /Lhigh : 107mmo l/L [place] 100 98 - 107 mmol/ L 11/20 4:43 AM [employer] [facility] Not Available Not Available 12/24/2024 17:32:30 11/20/19 25 11/20/2024 Renal funct ion 1999 panel - Serum or Plasm a carbon dioxide, total [moles/volum e] in serum or plasma 21 mmol/ L low: 22mmol /Lhigh : 29mmol /L low CO2 21 (L) 22 - 29 mmol/ L 11/20 4:43 AM [employer] [facility] Not Available Not Available 12/24/2024 17:32:30 11/20/19 25 11/20/2024 Renal funct ion 1999 panel - Serum or Plasm a calcium 9.4 mg/dL low: 8.6mg/ dLhigh : 10.4mg /dL CALCI UM 9.4 8.6 - 10.4 mg/dL 11/20 4:43 AM [employer] [facility] Not Available Not Available 12/24/2024 17:32:30 11/20/19 25 11/20/2024 Renal funct ion 1999 panel - Serum or Plasm a BUN 44 mg/dL low: 6mg/dL high: 20mg/d L high BUN 44 (H) 6 - 20 mg/dL 11/20 4:43 AM [employer] [facility] Not Available Not Available 12/24/2024 17:32:30 11/20/19 25 11/20/2024 Renal funct ion 1999 panel - Serum or Plasm a creatinine [mass/volume ] in serum or plasma 6.32 mg/dL low: 0.67mg /dLhig h: 1.17mg /dL high CREAT ININE 6.32 (H) 0.67 - 1.17 mg/dL 11/20 4:43 AM [employer] [facility] Not Available Not Available 12/24/2024 17:32:30 11/20/19 25 11/20/2024 Renal funct ion 1999 panel - Serum or Plasm a glucose [mass/volume ] in serum or plasma 104 mg/dL low: 74mg/d Lhigh: 99mg/d L high GLUCO SE 104 (H) 74 - 99 mg/dL 11/20 4:43 AM [employer] [facility] Not Available Not Available 12/24/2024 17:32:30 11/20/19 25 11/20/2024 Renal funct ion 1999 panel - Serum or Plasm a albumin 3.1 g/dL low: 3.5g/d Lhigh: 5.2g/d L low ALBUM IN 3.1 (L) 3.5 - 5.2 g/dL 11/20 4:43 AM [employer] [facility] Not Available Not Available 12/24/2024 17:32:30 11/20/19 25 11/20/2024 Renal funct ion 1999 panel - Serum or Plasm a phosphorus 3.8 mg/dL low: 2.5mg/ dLhigh : 4.5mg/ dL PHOSP HORUS 3.8 2.5 - 4.5 mg/dL 11/20 4:43 AM [employer] [facility] Not Available Not Available 12/24/2024 17:32:30 11/20/19 25 11/20/2024 Renal funct ion 1999 panel - Serum or Plasm a glomerular filtration rate/1.73 sq M.predicted [volume rate/area] in serum, plasma or blood by creatinine-b ased formula (CKD-epi 2020) 9 text: >=60 mL/min /1.73 sq meter low GFR 9 (L) >=60 mL/mi n/1.7 3 sq meter 11/20 4:43 AM [employer] [facility] Not Available Not Available 12/24/2024 17:32:30 11/20/19 25 11/20/2024 Renal funct ion 1999 panel - Serum or Plasm a anion gap 12 mmol/ L low: 8mmol/ Lhigh: 16mmol /L ANION GAP 12 8 - 16 mmol/ L 11/20 4:43 AM [employer] [facility] Not Available Not Available 12/24/2024 [...] 4.0 - 9.8 K/uL 11/20 4:22 AM [employer] [facility] Not Available Not Available 12/24/2024 17:32:30 11/20/19 25 11/20/2024 CBC W Auto Diffe renti al panel - Blood RBC 2.34 text: 4.50 - 5.40 M/uL low RBC 2.34 (L) 4.50 - 5.40 M/uL 11/20 4:22 AM [employer] [facility] Not Available Not Available 12/24/2024 17:32:30 11/20/1911/20/2024 CBC W Auto Diffe renti al panel - Blood hemoglobin 8 g/dL low: 13.6g/ dLhigh : 16.5g/ dL low HEMOG LOBIN 8.0 (L) 13.6 - 16.5 g/dL 11/20 4:22 AM [employer] [facility] Not Available Not Available 12/24/2024 17:32:30 11/20/19 25 11/20/2024 CBC W Auto Diffe renti al panel - Blood hematocrit [volume fraction] of blood by automated count 25.4 % low: 40%hig h: 48% low HEMAT OCRIT 25.4 (L) 40.0 - 48.0 % 11/20 4:22 AM [employer] [facility] Not Available Not Available 12/24/2024 17:32:30 11/20/19 25 11/20/2024 CBC W Auto Diffe renti al panel - Blood MCV 108.5 fL low: 82fLhi gh: 99fL high MCV 108.5 (H) 82.0 - 99.0 fL 11/20 4:22 AM [employer] [facility] Not Available Not Available 12/24/2024 17:32:30 11/20/19 25 11/20/2024 CBC W Auto Diffe renti al panel - Blood MCH 34.2 pg low: 27.2pg high: 32.6pg high MCH 34.2 (H) 27.2 - 32.6 pg 02/05 /2025 4:22 AM [employer] [facility] Not Available Not Available 12/24/2024 17:32:30 11/20/19 25 11/20/2024 CBC W Auto Diffe renti al panel - Blood MCHC 31.5 g/dL low: 31.5g/ dLhigh : 35.5g/ dL MCHC 31.5 31.5 - 35.5 g/dL 11/20 4:22 AM [facility] Not Available 12/24/2024 17:32:30 11/20/19 25 11/20/2024 CBC W Auto Diffe renti al panel - Blood RDW 15.2 % low: 11.5%h igh: 14.5% high RDW 15.2 (H) 11.5 - 14.5 % 11/20 4:22 AM [facility] Not Available Not Available 12/24/2024 17:32:30 11/20/19 25 11/20/2024 CBC W Auto Diffe renti al panel - Blood RDW-stdev 60.9 fL low: 37.1fL high: 48.7fL high RDW-S TDEV 60.9 (H) 37.1 - 48.7 fL 11/20 4:22 AM [facility] Not Available Not Available 12/24/2024 17:32:30 11/20/19 25 11/20/2024 CBC W Auto Diffe renti al panel - Blood platelets [#/volume] in blood by automated count 395 K/uL low: 140K/u Lhigh: 350K/u L high PLATE LETS 395 (H) 140 - 350 K/uL 11/20 4:22 AM [employer] [facility] Not Available Not Available 12/24/2024 17:32:30 11/20/19 25 11/20/2024 CBC W Auto Diffe renti al panel - Blood MPV 9.5 fL low: 9.3fLh igh: 12.4fL MPV 9.5 9.3 - 12.4 fL 11/20 4:22 AM [employer] [facility] Not Available Not Available 12/24/2024 17:32:30 11/20/19 25 11/20/2024 CBC W Auto Diffe renti al panel - Blood neutrophils 78 % NEUTR OPHIL S 78 % 11/20 4:22 AM [facility] Not Available Not Available 12/24/2024 17:32:30 11/20/19 25 11/20/2024 CBC W Auto Diffe renti al panel - Blood lymphocytes/ 100 leukocytes in blood by automated count 10 % LYMPH OCYTE S 10 % 11/20 4:22 AM [employer] 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 Not Available Not Available 12/24/2024 17:32:30 11/20/19 25 11/20/2024 CBC W Auto Diffe renti al panel - Blood immature granulocytes 1 % IMMAT URE GRANU LOCYT ES 1 % 11/20 4:22 AM [employer] [facility] Not Available Not Available 12/24/2024 17:32:30 11/20/19 25 11/20/2024 CBC W Auto Diffe renti al panel - Blood neutrophils [#/volume] in blood by automated count 6.23 K/uL low: 1.9K/u Lhigh: 7K/uL NEUTR OPHIL ABSOL [place] 6.23 1.90 - 7.00 K/uL 11/20 4:22 AM [employer] [facility] Not Available Not Available 12/24/2024 17:32:30 11/20/19 25 11/20/2024 CBC W Auto Diffe renti al panel - Blood lymphocyte absolute 0.79 K/uL low: 0.7K/u Lhigh: 4.5K/u L LYMPH OCYTE ABSOL [place] 0.79 0.70 - 4.50 K/uL 11/20 4:22 AM [employer] [facility] Not Available Not Available 12/24/2024 17:32:30 11/20/19 25 11/20/2024 CBC W Auto Diffe renti al panel - Blood monocyte absolute 0.73 K/uL low: 0.1K/u Lhigh: 1.3K/u L MONOC YTE ABSOL [place] 0.73 0.10 - 1.30 K/uL 11/20 4:22 AM [employer] [facility] Not Available Not Available 12/24/2024 17:32:30 11/20/19 25 11/20/2024 CBC W Auto Diffe renti al panel - Blood eosinophil absolute 0.17 K/uL low: 0K/uLh igh: 0.7K/u L EOSIN OPHIL ABSOL [place] 0.17 0.00 - 0.70 K/uL 11/20 4:22 AM [employer] [facility] Not Available Not Available 12/24/2024 17:32:30 11/20/19 25 11/20/2024 CBC W Auto Diffe renti al panel - Blood basophils absolute 0.06 K/uL low: 0K/uLh igh: 0.2K/u L BASOP HILS ABSOL [place] 0.06 0.00 - 0.20 K/uL 11/20 4:22 AM [employer] [facility] Not Available Not Available 12/24/2024 17:32:30 11/20/19 25 11/20/2024 CBC W Auto Diffe renti al panel - Blood immature granulocytes absolute 0.06 K/uL low: 0K/uLh igh: 0.03K/ uL high IMMAT URE GRANU LOCYT ES ABSOL [place] 0.06 (H) 0.00 - 0.03 K/uL 11/20 4:22 AM [employer] 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 Not Available Not Available 12/24/2024 17:32:30 11/21/19 25 11/21/2024 Basic metab olic 1999 panel - Serum or Plasm a potassium [moles/volum e] in serum or plasma 5.6 mmol/ L low: 3.4mmo l/Lhig h: 5.1mmo l/L high POTAS SIUM 5.6 (H) 3.4 - 5.1 mmol/ L 11/21 6:44 AM [employer] [facility] Not Available Not Available 12/24/2024 17:32:30 11/21/19 25 11/21/2024 Basic metab olic 1999 panel - Serum or Plasm a chloride 103 mmol/ L low: 98mmol /Lhigh : 107mmo l/L [place] 103 98 - 107 mmol/ L 11/21 6:44 AM [employer] [facility] Not Available Not Available 12/24/2024 17:32:30 11/21/19 25 11/21/2024 Basic metab olic 1999 panel - Serum or Plasm a carbon dioxide, total [moles/volum e] in serum or plasma 17 mmol/ L low: 22mmol /Lhigh : 29mmol /L low CO2 17 (L) 22 - 29 mmol/ L 11/21 6:44 AM [facility] Not Available Not Available 12/24/2024 17:32:30 11/21/19 25 11/21/2024 Basic metab olic 1999 panel - Serum or Plasm a calcium 9.5 mg/dL low: 8.6mg/ dLhigh : 10.4mg /dL CALCI UM 9.5 8.6 - 10.4 mg/dL 11/21 6:44 AM [facility] Not Available Not Available 12/24/2024 17:32:30 11/21/19 25 11/21/2024 Basic metab olic 1999 panel - Serum or Plasm a BUN 51 mg/dL low: 6mg/dL high: 20mg/d L high BUN 51 (H) 6 - 20 mg/dL 11/21 6:44 AM [employer] [facility] Not Available Not Available 12/24/2024 17:32:30 11/21/19 25 11/21/2024 Basic metab olic 1999 panel - Serum or Plasm a creatinine [mass/volume ] in serum or plasma 7.46 mg/dL low: 0.67mg /dLhig h: 1.17mg /dL high CREAT ININE 7.46 (H) 0.67 - 1.17 mg/dL 11/21 6:44 AM [employer] [facility] Not Available Not Available 12/24/2024 17:32:30 11/21/19 25 11/21/2024 Basic metab olic 1999 panel - Serum or Plasm a glucose [mass/volume ] in serum or plasma 174 mg/dL low: 74mg/d Lhigh: 99mg/d L high GLUCO SE 174 (H) 74 - 99 mg/dL 11/21 6:44 AM [facility] Not Available Not Available 12/24/2024 17:32:30 11/21/19 25 11/21/2024 Basic metab olic 2000 panel - Serum or Plasm a glomerular filtration rate/1.73 sq M.predicted [volume rate/area] in serum, plasma or blood by creatinine-b ased formula (CKD-epi 2020) 8 text: >=60 mL/min /1.73 sq meter low GFR 8 (L) >=60 mL/mi n/1.7 3 sq meter 11/21 6:44 AM [facility] Not Available Not Available 12/24/2024 17:32:30 11/21/19 25 11/21/2024 Basic metab olic 2000 panel - Serum or Plasm a anion gap 10 mmol/ L low: 8mmol/ Lhigh: 16mmol /L ANION GAP 10 8 - 16 mmol/ L 11/21 6:44 AM [facility] Not Available Not Available [...] 4.0 - 9.8 K/uL 11/21 3:10 AM [facility] Not Available Not Available 12/24/2024 17:32:30 11/21/19 25 11/21/2024 CBC W Auto Diffe renti al panel - Blood RBC 2.25 text: 4.50 - 5.40 M/uL low RBC 2.25 (L) 4.50 - 5.40 M/uL 11/21 3:10 AM [facility] Not Available Not Available 12/24/2024 17:32:30 11/21/19 25 11/21/2024 CBC W Auto Diffe renti al panel - Blood hemoglobin 7.5 g/dL low: 13.6g/ dLhigh : 16.5g/ dL low HEMOG LOBIN 7.5 (L) 13.6 - 16.5 g/dL 11/21 3:10 AM [facility] Not Available Not Available 12/24/2024 17:32:30 11/21/19 25 11/21/2024 CBC W Auto Diffe renti al panel - Blood hematocrit [volume fraction] of blood by automated count 23.8 % low: 40%hig h: 48% low HEMAT OCRIT 23.8 (L) 40.0 - 48.0 % 11/21 3:10 AM [employer] [facility] Not Available Not Available 12/24/2024 17:32:30 11/21/19 25 11/21/2024 CBC W Auto Diffe renti al panel - Blood MCV 105.8 fL low: 82fLhi gh: 99fL high MCV 105.8 (H) 82.0 - 99.0 fL 11/21 3:10 AM [employer] [facility] Not Available Not Available 12/24/2024 17:32:30 11/21/19 25 11/21/2024 CBC W Auto Diffe renti al panel - Blood MCH 33.3 pg low: 27.2pg high: 32.6pg high MCH 33.3 (H) 27.2 - 32.6 pg 11/21 3:10 AM [facility] Not Available Not Available 12/24/2024 17:32:30 11/21/19 25 11/21/2024 CBC W Auto Diffe renti al panel - Blood MCHC 31.5 g/dL low: 31.5g/ dLhigh : 35.5g/ dL MCHC 31.5 31.5 - 35.5 g/dL 11/21 3:10 AM [employer] [facility] Not Available Not Available 12/24/2024 17:32:30 11/21/19 25 11/21/2024 CBC W Auto Diffe renti al panel - Blood RDW 17.8 % low: 11.5%h igh: 14.5% high RDW 17.8 (H) 11.5 - 14.5 % 11/21 3:10 AM [employer] [facility] Not Available Not Available 12/24/2024 17:32:30 11/21/19 25 11/21/2024 CBC W Auto Diffe renti al panel - Blood RDW-stdev 70.4 fL low: 37.1fL high: 48.7fL high RDW-S TDEV 70.4 (H) 37.1 - 48.7 fL 11/21 3:10 AM [employer] [facility] Not Available Not Available 12/24/2024 17:32:30 11/21/19 25 11/21/2024 CBC W Auto Diffe renti al panel - Blood platelets [#/volume] in blood by automated count 370 K/uL low: 140K/u Lhigh: 350K/u L high PLATE LETS 370 (H) 140 - 350 K/uL 11/21 3:10 AM [employer] [facility] Not Available Not Available 12/24/2024 17:32:30 11/21/19 25 11/21/2024 CBC W Auto Diffe renti al panel - Blood MPV 9.9 fL low: 9.3fLh igh: 12.4fL MPV 9.9 9.3 - 12.4 fL 11/21 3:10 AM [employer] [facility] Not Available Not Available 12/24/2024 17:32:30 11/21/19 25 11/21/2024 CBC W Auto Diffe renti al panel - Blood neutrophils 81 % NEUTR OPHIL S 81 % 11/21 3:10 AM [employer] [facility] Not Available Not Available 12/24/2024 17:32:30 11/21/19 25 11/21/2024 CBC W Auto Diffe renti al panel - Blood lymphocytes/ 100 leukocytes in blood by automated count 8 % LYMPH OCYTE S 8 % 11/21 3:10 AM [employer] [facility] Not Available Not Available 12/24/2024 17:32:30 11/21/19 25 11/21/2024 CBC W Auto Diffe renti al panel - Blood monocytes 8 % MONOC YTES 8 % 11/21 3:10 AM [employer] [facility] Not Available Not Available 12/24/2024 17:32:30 11/21/19 25 11/21/2024 CBC W Auto Diffe renti al panel - Blood eosinophils 2 % EOSIN OPHIL S 2 % 11/21 3:10 AM [employer] [facility] Not Available Not Available 12/24/2024 17:32:30 11/21/19 25 11/21/2024 CBC W Auto Diffe renti al panel - Blood basophils 1 % BASOP HILS 1 % 11/21 3:10 AM [employer] [facility] Not Available Not Available 12/24/2024 17:32:30 11/21/19 25 11/21/2024 CBC W Auto Diffe renti al panel - Blood immature granulocytes 1 % IMMAT URE GRANU LOCYT ES 1 % 11/21 3:10 AM [employer] [facility] Not Available Not Available 12/24/2024 17:32:30 11/21/19 25 11/21/2024 CBC W Auto Diffe renti al panel - Blood neutrophils [#/volume] in blood by automated count 8.26 K/uL low: 1.9K/u Lhigh: 7K/uL high NEUTR OPHIL ABSOL [place] 8.26 (H) 1.90 - 7.00 K/uL 11/21 3:10 AM [employer] [facility] Not Available Not Available 12/24/2024 17:32:30 11/21/19 25 11/21/2024 CBC W Auto Diffe renti al panel - Blood lymphocyte absolute 0.79 K/uL low: 0.7K/u Lhigh: 4.5K/u L LYMPH OCYTE ABSOL [place] 0.79 0.70 - 4.50 K/uL 11/21 3:10 AM [employer] 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 Not Available Not Available 12/24/2024 17:32:30 11/21/19 25 11/21/2024 CBC W Auto Diffe renti al panel - Blood eosinophil absolute 0.19 K/uL low: 0K/uLh igh: 0.7K/u L EOSIN OPHIL ABSOL [place] 0.19 0.00 - 0.70 K/uL 11/21 3:10 AM [employer] [facility] Not Available Not Available 12/24/2024 17:32:30 11/21/19 25 11/21/2024 CBC W Auto Diffe renti al panel - Blood basophils absolute 0.08 K/uL low: 0K/uLh igh: 0.2K/u L BASOP HILS ABSOL [place] 0.08 0.00 - 0.20 K/uL 11/21 3:10 AM [employer] [facility] Not Available Not Available 12/24/2024 17:32:30 11/21/19 25 11/21/2024 CBC W Auto Diffe renti al panel - Blood immature granulocytes absolute 0.07 K/uL low: 0K/uLh igh: 0.03K/ uL high IMMAT URE GRANU LOCYT ES ABSOL [place] 0.07 (H) 0.00 - 0.03 K/uL 11/21 3:10 AM [employer] [facility] Not Available Not Available 12/24/2024 [...] - 145 mmol/ L 11/21 4:55 AM [facility] Not Available Not Available 12/24/2024 17:32:30 11/21/19 25 11/21/2024 Renal funct ion 1999 panel - Serum or Plasm a potassium [moles/volum e] in serum or plasma 6.6 mmol/ L low: 3.4mmo l/Lhig h: 5.1mmo l/L critical high POTAS SIUM 6.6 (HH) 3.4 - 5.1 mmol/ L 11/21 4:55 AM [facility] Not Available Not Available 12/24/2024 17:32:30 11/21/19 25 11/21/2024 Renal funct ion 1999 panel - Serum or Plasm a chloride 103 mmol/ L low: 98mmol /Lhigh : 107mmo l/L [place] 103 98 - 107 mmol/ L 11/21 4:55 AM [employer] [facility] Not Available Not Available 12/24/2024 17:32:30 11/21/19 25 11/21/2024 Renal funct ion 1999 panel - Serum or Plasm a carbon dioxide, total [moles/volum e] in serum or plasma 17 mmol/ L low: 22mmol /Lhigh : 29mmol /L low CO2 17 (L) 22 - 29 mmol/ L 11/21 4:55 AM [facility] Not Available Not Available 12/24/2024 17:32:30 11/21/19 25 11/21/2024 Renal funct ion 1999 panel - Serum or Plasm a calcium 9.3 mg/dL low: 8.6mg/ dLhigh : 10.4mg /dL CALCI UM 9.3 8.6 - 10.4 mg/dL 11/21 4:55 AM [employer] [facility] Not Available Not Available 12/24/2024 17:32:30 11/21/19 25 11/21/2024 Renal funct ion 1999 panel - Serum or Plasm a BUN 49 mg/dL low: 6mg/dL high: 20mg/d L high BUN 49 (H) 6 - 20 mg/dL 11/21 4:55 AM [employer] [facility] Not Available Not Available 12/24/2024 17:32:30 11/21/19 25 11/21/2024 Renal funct ion 1999 panel - Serum or Plasm a creatinine [mass/volume ] in serum or plasma 7.3 mg/dL low: 0.67mg /dLhig h: 1.17mg /dL high CREAT ININE 7.30 (H) 0.67 - 1.17 mg/dL 11/21 4:55 AM [employer] [facility] [employer] [facility] Not Available Not Available 12/24/2024 17:32:30 11/21/19 25 11/21/2024 Renal funct ion 1999 panel - Serum or Plasm a glucose [mass/volume ] in serum or plasma 105 mg/dL low: 74mg/d Lhigh: 99mg/d L high GLUCO SE 105 (H) 74 - 99 mg/dL 11/21 4:55 AM [facility] Not Available Not Available 12/24/2024 17:32:30 11/21/19 25 11/21/2024 Renal funct ion 1999 panel - Serum or Plasm a albumin 2.9 g/dL low: 3.5g/d Lhigh: 5.2g/d L low ALBUM IN 2.9 (L) 3.5 - 5.2 g/dL 11/21 4:55 AM [employer] [facility] Not Available Not Available 12/24/2024 17:32:30 11/21/19 25 11/21/2024 Renal funct ion 1999 panel - Serum or Plasm a phosphorus 4.7 mg/dL low: 2.5mg/ dLhigh : 4.5mg/ dL high PHOSP HORUS 4.7 (H) 2.5 - 4.5 mg/dL 11/21 4:55 AM [facility] Not Available Not Available 12/24/2024 17:32:30 11/21/19 25 11/21/2024 Renal funct ion 1999 panel - Serum or Plasm a glomerular filtration rate/1.73 sq M.predicted [volume rate/area] in serum, plasma or blood by creatinine-b ased formula (CKD-epi 2020) 8 text: >=60 mL/min /1.73 sq meter low GFR 8 (L) >=60 mL/mi n/1.7 3 sq meter 11/21 4:55 AM [employer] [facility] Not Available Not Available 12/24/2024 17:32:30 11/21/19 25 11/21/2024 Renal funct ion 1999 panel - Serum or Plasm a anion gap 12 mmol/ L low: 8mmol/ Lhigh: 16mmol /L ANION GAP 12 8 - 16 mmol/ L 11/21 4:55 AM [employer] [facility] Not Available Not Available 12/24/2024 [...] - 145 mmol/ L 11/22 7:06 AM [facility] Not Available Not Available 12/24/2024 17:32:31 11/22/19 25 11/22/2024 Renal funct ion 1999 panel - Serum or Plasm a potassium [moles/volum e] in serum or plasma 5.9 mmol/ L low: 3.4mmo l/Lhig h: 5.1mmo l/L high POTAS SIUM 5.9 (H) 3.4 - 5.1 mmol/ L 11/22 7:06 AM [employer] [facility] Not Available Not Available 12/24/2024 17:32:31 11/22/19 25 11/22/2024 Renal funct ion 1999 panel - Serum or Plasm a chloride 102 mmol/ L low: 98mmol /Lhigh : 107mmo l/L [place] 102 98 - 107 mmol/ L 11/22 7:06 AM [employer] [facility] Not Available Not Available 12/24/2024 17:32:31 11/22/19 25 11/22/2024 Renal funct ion 1999 panel - Serum or Plasm a carbon dioxide, total [moles/volum e] in serum or plasma 20 mmol/ L low: 22mmol /Lhigh : 29mmol /L low CO2 20 (L) 22 - 29 mmol/ L 11/22 7:06 AM [employer] [facility] Not Available Not Available 12/24/2024 17:32:31 11/22/19 25 11/22/2024 Renal funct ion 1999 panel - Serum or Plasm a calcium 9.6 mg/dL low: 8.6mg/ dLhigh : 10.4mg /dL CALCI UM 9.6 8.6 - 10.4 mg/dL 11/22 7:06 AM [employer] [facility] Not Available Not Available 12/24/2024 17:32:31 11/22/19 25 11/22/2024 Renal funct ion 1999 panel - Serum or Plasm a BUN 36 mg/dL low: 6mg/dL high: 20mg/d L high BUN 36 (H) 6 - 20 mg/dL 11/22 7:06 AM [employer] [facility] Not Available Not Available 12/24/2024 17:32:31 11/22/19 25 11/22/2024 Renal funct ion 1999 panel - Serum or Plasm a creatinine [mass/volume ] in serum or plasma 5.92 mg/dL low: 0.67mg /dLhig h: 1.17mg /dL high CREAT ININE 5.92 (H) 0.67 - 1.17 mg/dL 11/22 7:06 AM [facility] Not Available Not Available 12/24/2024 17:32:31 11/22/19 25 11/22/2024 Renal funct ion 1999 panel - Serum or Plasm a glucose [mass/volume ] in serum or plasma 101 mg/dL low: 74mg/d Lhigh: 99mg/d L high GLUCO SE 101 (H) 74 - 99 mg/dL 11/22 7:06 AM [employer] [facility] Not Available Not Available 12/24/2024 17:32:31 11/22/19 25 11/22/2024 Renal funct ion 1999 panel - Serum or Plasm a albumin 3 g/dL low: 3.5g/d Lhigh: 5.2g/d L low ALBUM IN 3.0 (L) 3.5 - 5.2 g/dL 11/22 7:06 AM [employer] [facility] Not Available Not Available 12/24/2024 17:32:31 11/22/19 25 11/22/2024 Renal funct ion 1999 panel - Serum or Plasm a phosphorus 4.3 mg/dL low: 2.5mg/ dLhigh : 4.5mg/ dL PHOSP HORUS 4.3 2.5 - 4.5 mg/dL 11/22 7:06 AM [employer] [facility] Not Available Not Available 12/24/2024 17:32:31 11/22/19 25 11/22/2024 Renal funct ion 1999 panel - Serum or Plasm a glomerular filtration rate/1.73 sq M.predicted [volume rate/area] in serum, plasma or blood by creatinine-b ased formula (CKD-epi 2020) 10 text: >=60 mL/min /1.73 sq meter low GFR 10 (L) >=60 mL/mi n/1.7 3 sq meter 11/22 7:06 AM [facility] Not Available 12/24/2024 17:32:31 11/22/19 25 11/22/2024 Renal funct ion 1999 panel - Serum or Plasm a anion gap 13 mmol/ L low: 8mmol/ Lhigh: 16mmol /L ANION GAP 13 8 - 16 mmol/ L 11/22 7:06 AM [facility] Not Available Not Available [...] 4.0 - 9.8 K/uL 11/22 6:31 AM [facility] Not Available Not Available 12/24/2024 17:32:30 11/22/19 25 11/22/2024 CBC W Auto Diffe renti al panel - Blood RBC 2.52 text: 4.50 - 5.40 M/uL low RBC 2.52 (L) 4.50 - 5.40 M/uL 11/22 6:31 AM [employer] [facility] Not Available Not Available 12/24/2024 17:32:30 11/22/19 25 11/22/2024 CBC W Auto Diffe renti al panel - Blood hemoglobin 8.5 g/dL low: 13.6g/ dLhigh : 16.5g/ dL low HEMOG LOBIN 8.5 (L) 13.6 - 16.5 g/dL 11/22 6:31 AM [employer] [facility] Not Available Not Available 12/24/2024 17:32:30 11/22/19 25 11/22/2024 CBC W Auto Diffe renti al panel - Blood hematocrit [volume fraction] of blood by automated count 26.9 % low: 40%hig h: 48% low HEMAT OCRIT 26.9 (L) 40.0 - 48.0 % 11/22 6:31 AM [facility] Not Available Not Available 12/24/2024 17:32:30 11/22/19 25 11/22/2024 CBC W Auto Diffe renti al panel - Blood MCV 106.7 fL low: 82fLhi gh: 99fL high MCV 106.7 (H) 82.0 - 99.0 fL 11/22 6:31 AM 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 [facility] Not Available Not Available 12/24/2024 17:32:30 11/22/19 25 11/22/2024 CBC W Auto Diffe renti al panel - Blood MCH 33.7 pg low: 27.2pg high: 32.6pg high MCH 33.7 (H) 27.2 - 32.6 pg 11/22 6:31 AM 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 [facility] Not Available Not Available 12/24/2024 17:32:30 11/22/19 25 11/22/2024 CBC W Auto Diffe renti al panel - Blood MCHC 31.6 g/dL low: 31.5g/ dLhigh : 35.5g/ dL MCHC 31.6 31.5 - 35.5 g/dL 11/22 6:31 AM 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 [facility] Not Available Not Available 12/24/2024 17:32:30 11/22/19 25 11/22/2024 CBC W Auto Diffe renti al panel - Blood RDW 16.9 % low: 11.5%h igh: 14.5% high RDW 16.9 (H) 11.5 - 14.5 % 11/22 6:31 AM [employer] [facility] Not Available Not Available 12/24/2024 17:32:30 11/22/19 25 11/22/2024 CBC W Auto Diffe renti al panel - Blood RDW-stdev 66.1 fL low: 37.1fL high: 48.7fL high RDW-S TDEV 66.1 (H) 37.1 - 48.7 fL 11/22 6:31 AM [employer] 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 Not Available Not Available 12/24/2024 17:32:30 11/22/19 25 11/22/2024 CBC W Auto Diffe renti al panel - Blood lymphocytes/ 100 leukocytes in blood by automated count 8 % LYMPH OCYTE S 8 % 11/22 6:31 AM [employer] [facility] Not Available Not Available 12/24/2024 17:32:30 11/22/19 25 11/22/2024 CBC W Auto Diffe renti al panel - Blood monocytes 8 % MONOC YTES 8 % 11/22 6:31 AM [employer] [facility] Not Available Not Available 12/24/2024 17:32:30 11/22/19 25 11/22/2024 CBC W Auto Diffe renti al panel - Blood eosinophils 2 % EOSIN OPHIL S 2 % 11/22 6:31 AM [employer] [facility] Not Available Not Available 12/24/2024 17:32:30 11/22/19 25 11/22/2024 CBC W Auto Diffe renti al panel - Blood basophils 1 % BASOP HILS 1 % 11/22 6:31 AM [employer] [facility] Not Available Not Available 12/24/2024 17:32:30 11/22/19 25 11/22/2024 CBC W Auto Diffe renti al panel - Blood immature granulocytes 1 % IMMAT URE GRANU LOCYT ES 1 % 11/22 6:31 AM [facility] Not Available Not Available 12/24/2024 17:32:30 11/22/19 25 11/22/2024 CBC W Auto Diffe renti al panel - Blood neutrophils [#/volume] in blood by automated count 9.01 K/uL low: 1.9K/u Lhigh: 7K/uL high NEUTR OPHIL ABSOL [place] 9.01 (H) 1.90 - 7.00 K/uL 11/22 6:31 AM [facility] [employer] [facility] Not Available Not Available 12/24/2024 17:32:30 11/22/19 25 11/22/2024 CBC W Auto Diffe renti al panel - Blood lymphocyte absolute 0.91 K/uL low: 0.7K/u Lhigh: 4.5K/u L LYMPH OCYTE ABSOL [place] 0.91 0.70 - 4.50 K/uL 11/22 6:31 AM [facility] Not Available Not Available 12/24/2024 17:32:30 11/22/19 25 11/22/2024 CBC W Auto Diffe renti al panel - Blood monocyte absolute 0.92 K/uL low: 0.1K/u Lhigh: 1.3K/u L MONOC YTE ABSOL [place] 0.92 0.10 - 1.30 K/uL 11/22 6:31 AM [facility] [employer] [facility] Not Available Not Available 12/24/2024 17:32:30 11/22/19 25 11/22/2024 CBC W Auto Diffe renti al panel - Blood eosinophil absolute 0.22 K/uL low: 0K/uLh igh: 0.7K/u L EOSIN OPHIL ABSOL [place] 0.22 0.00 - 0.70 K/uL 11/22 6:31 AM [employer] 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 Not Available Not Available 12/24/2024 17:32:30 11/22/19 25 11/22/2024 CBC W Auto Diffe renti al panel - Blood immature granulocytes absolute 0.07 K/uL low: 0K/uLh igh: 0.03K/ uL high IMMAT URE GRANU LOCYT ES ABSOL [place] 0.07 (H) 0.00 - 0.03 K/uL 11/22 6:31 AM [employer] [facility] Not Available Not Available 12/24/2024 [...] (A) DAVID MCG/M L 11/28 11:33 AM [facility] Not [facility] Not Available 12/24/2024 17:32:31 11/23/19 25 11/28/2024 Bacte shaneka ident ified in Speci men by Anaer obe+A erobe cultu re microscopic observation [identifier] in specimen by gram stain No organi sms observ ed GRAM STAIN No organ isms obser evan 11/28 11:33 AM [employer] [facility] Not Available Not Available 12/24/2024 17:32:31 11/23/19 25 11/28/2024 Bacte shaneka ident ified in Speci men by Anaer obe+A erobe cultu re microscopic observation [identifier] in specimen by gram stain 1+ (Rare or Occasi onal) Polymo rphonu clear WBC GRAM STAIN 1+ (Rare or Occas ional ) Polym orpho nucle ar WBC 11/28 11:33 AM 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 Not Available Not Available 12/24/2024 17:32:31 11/23/19 25 11/23/2024 Renal funct ion 1999 panel - Serum or Plasm a potassium [moles/volum e] in serum or plasma 4.5 mmol/ L low: 3.4mmo l/Lhig h: 5.1mmo l/L POTAS SIUM 4.5 3.4 - 5.1 mmol/ L 11/23 6:19 AM [employer] [facility] Not Available Not Available 12/24/2024 17:32:31 11/23/19 25 11/23/2024 Renal funct ion 1999 panel - Serum or Plasm a chloride 100 mmol/ L low: 98mmol /Lhigh : 107mmo l/L CHLOR BURT 100 98 - 107 mmol/ L 11/23 6:19 AM [employer] [facility] Not Available Not Available 12/24/2024 17:32:31 11/23/19 25 11/23/2024 Renal funct ion 1999 panel - Serum or Plasm a carbon dioxide, total [moles/volum e] in serum or plasma 21 mmol/ L low: 22mmol /Lhigh : 29mmol /L low CO2 21 (L) 22 - 29 mmol/ L 11/23 6:19 AM [employer] [facility] Not Available Not Available 12/24/2024 17:32:31 11/23/19 25 11/23/2024 Renal funct ion 1999 panel - Serum or Plasm a calcium 9.2 mg/dL low: 8.6mg/ dLhigh : 10.4mg /dL CALCI UM 9.2 8.6 - 10.4 mg/dL 11/23 6:19 AM [employer] [facility] Not Available Not Available 12/24/2024 17:32:31 11/23/19 25 11/23/2024 Renal funct ion 1999 panel - Serum or Plasm a BUN 37 mg/dL low: 6mg/dL high: 20mg/d L high BUN 37 (H) 6 - 20 mg/dL 11/23 6:19 AM [employer] [facility] Not Available Not Available 12/24/2024 17:32:31 11/23/19 25 11/23/2024 Renal funct ion 1999 panel - Serum or Plasm a creatinine [mass/volume ] in serum or plasma 6.21 mg/dL low: 0.67mg /dLhig h: 1.17mg /dL high CREAT ININE 6.21 (H) 0.67 - 1.17 mg/dL 11/23 6:19 AM [employer] [facility] Not Available Not Available 12/24/2024 17:32:31 11/23/19 25 11/23/2024 Renal funct ion 1999 panel - Serum or Plasm a glucose [mass/volume ] in serum or plasma 89 mg/dL low: 74mg/d Lhigh: 99mg/d L GLUCO SE 89 74 - 99 mg/dL 11/23 6:19 AM [employer] [facility] Not Available Not Available 12/24/2024 17:32:31 11/23/19 25 11/23/2024 Renal funct ion 1999 panel - Serum or Plasm a albumin 2.8 g/dL low: 3.5g/d Lhigh: 5.2g/d L low ALBUM IN 2.8 (L) 3.5 - 5.2 g/dL 11/23 6:19 AM [employer] [facility] Not Available Not Available 12/24/2024 17:32:31 11/23/19 25 11/23/2024 Renal funct ion 1999 panel - Serum or Plasm a phosphorus 4.2 mg/dL low: 2.5mg/ dLhigh : 4.5mg/ dL PHOSP HORUS 4.2 2.5 - 4.5 mg/dL 11/23 6:19 AM [employer] [facility] Not Available Not Available 12/24/2024 17:32:31 11/23/19 25 11/23/2024 Renal funct ion 1999 panel - Serum or Plasm a glomerular filtration rate/1.73 sq M.predicted [volume rate/area] in serum, plasma or blood by creatinine-b ased formula (CKD-epi 2020) 9 text: >=60 mL/min /1.73 sq meter low GFR 9 (L) >=60 mL/mi n/1.7 3 sq meter 11/23 6:19 AM [employer] [facility] Not Available Not Available 12/24/2024 17:32:31 11/23/19 25 11/23/2024 Renal funct ion 1999 panel - Serum or Plasm a anion gap 13 mmol/ L low: 8mmol/ Lhigh: 16mmol /L ANION GAP 13 8 - 16 mmol/ L 11/23 6:19 AM [employer] [facility] Not Available Not Available 12/24/2024 [...] 4.0 - 9.8 K/uL 11/23 4:11 AM [employer] [facility] Not Available Not Available 12/24/2024 17:32:07 11/23/19 25 11/23/2024 CBC W Auto Diffe renti al panel - Blood RBC 2.12 text: 4.50 - 5.40 M/uL low RBC 2.12 (L) 4.50 - 5.40 M/uL 11/23 4:11 AM [facility] Not Available Not Available 12/24/2024 17:32:07 11/23/19 25 11/23/2024 CBC W Auto Diffe renti al panel - Blood hemoglobin 7 g/dL low: 13.6g/ dLhigh : 16.5g/ dL low HEMOG LOBIN 7.0 (L) 13.6 - 16.5 g/dL 11/23 4:11 AM [facility] Not Available Not Available 12/24/2024 17:32:07 11/23/19 25 11/23/2024 CBC W Auto Diffe renti al panel - Blood hematocrit [volume fraction] of blood by automated count 21.9 % low: 40%hig h: 48% low HEMAT OCRIT 21.9 (L) 40.0 - 48.0 % 11/23 4:11 AM [employer] Not Available Not Available 12/24/2024 17:32:07 11/23/19 25 11/23/2024 CBC W Auto Diffe renti al panel - Blood MCV 103.3 fL low: 82fLhi gh: 99fL high MCV 103.3 (H) 82.0 - 99.0 fL 11/23 4:11 AM [facility] Not Available Not Available 12/24/2024 17:32:07 02/08/20 25 11/23/2024 CBC W Auto Diffe renti al panel - Blood MCH 33 pg low: 27.2pg high: 32.6pg high MCH 33.0 (H) 27.2 - 32.6 pg 11/23 4:11 AM [facility] Not Available Not Available 12/24/2024 17:32:07 11/23/19 25 11/23/2024 CBC W Auto Diffe renti al panel - Blood MCHC 32 g/dL low: 31.5g/ dLhigh : 35.5g/ dL MCHC 32.0 31.5 - 35.5 g/dL 11/23 4:11 AM [facility] Not Available Not Available 12/24/2024 17:32:07 11/23/19 25 11/23/2024 CBC W Auto Diffe renti al panel - Blood RDW 16.6 % low: 11.5%h igh: 14.5% high RDW 16.6 (H) 11.5 - 14.5 % 11/23 4:11 AM [facility] Not Available Not Available 12/24/2024 17:32:07 11/23/19 25 11/23/2024 CBC W Auto Diffe renti al panel - Blood RDW-stdev 62.7 fL low: 37.1fL high: 48.7fL high RDW-S TDEV 62.7 (H) 37.1 - 48.7 fL 11/23 4:11 AM [facility] Not Available Not Available 12/24/2024 17:32:07 11/23/19 25 11/23/2024 CBC W Auto Diffe renti al panel - Blood platelets [#/volume] in blood by automated count 346 K/uL low: 140K/u Lhigh: 350K/u L PLATE LETS 346 140 - 350 K/uL 11/23 4:11 AM [facility] Not Available Not Available 12/24/2024 17:32:07 11/23/19 25 11/23/2024 CBC W Auto Diffe renti al panel - Blood MPV 9.8 fL low: 9.3fLh igh: 12.4fL MPV 9.8 9.3 - 12.4 fL 11/23 4:11 AM 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 Not Available Not Available 12/24/2024 17:32:07 11/23/19 25 11/23/2024 CBC W Auto Diffe renti al panel - Blood lymphocytes/ 100 leukocytes in blood by automated count 13 % LYMPH OCYTE S 13 % 11/23 4:11 AM [employer] [facility] Not Available Not Available 12/24/2024 17:32:07 11/23/19 25 11/23/2024 CBC W Auto Diffe renti al panel - Blood monocytes 10 % MONOC YTES 10 % 11/23 4:11 AM [employer] [facility] Not Available Not Available 12/24/2024 17:32:07 11/23/19 25 11/23/2024 CBC W Auto Diffe renti al panel - Blood eosinophils 2 % EOSIN OPHIL S 2 % 11/23 4:11 AM [employer] [facility] Not Available Not Available 12/24/2024 17:32:07 11/23/19 25 11/23/2024 CBC W Auto Diffe renti al panel - Blood basophils 1 % BASOP HILS 1 % 11/23 4:11 AM [employer] [facility] Not Available Not Available 12/24/2024 17:32:07 11/23/19 25 11/23/2024 CBC W Auto Diffe renti al panel - Blood immature granulocytes 1 % IMMAT URE GRANU LOCYT ES 1 % 11/23 4:11 AM [employer] [facility] Not Available Not Available 12/24/2024 17:32:07 11/23/19 25 11/23/2024 CBC W Auto Diffe renti al panel - Blood neutrophils [#/volume] in blood by automated count 7.09 K/uL low: 1.9K/u Lhigh: 7K/uL high NEUTR OPHIL ABSOL [place] 7.09 (H) 1.90 - 7.00 K/uL 11/23 4:11 AM [facility] Not Available Not Available 12/24/2024 17:32:07 11/23/19 25 11/23/2024 CBC W Auto Diffe renti al panel - Blood lymphocyte absolute 1.19 K/uL low: 0.7K/u Lhigh: 4.5K/u L LYMPH OCYTE ABSOL [place] 1.19 0.70 - 4.50 K/uL 11/23 4:11 AM [employer] [facility] Not Available Not Available 12/24/2024 17:32:07 11/23/19 25 11/23/2024 CBC W Auto Diffe renti al panel - Blood monocyte absolute 0.94 K/uL low: 0.1K/u Lhigh: 1.3K/u L MONOC YTE ABSOL [place] 0.94 0.10 - 1.30 K/uL 11/23 4:11 AM [employer] [facility] Not Available Not Available 12/24/2024 17:32:07 11/23/19 25 11/23/2024 CBC W Auto Diffe renti al panel - Blood eosinophil absolute 0.2 K/uL low: 0K/uLh igh: 0.7K/u L EOSIN OPHIL ABSOL [place] 0.20 0.00 - 0.70 K/uL 11/23 4:11 AM [employer] [facility] Not Available Not Available 12/24/2024 17:32:07 11/23/19 25 11/23/2024 CBC W Auto Diffe renti al panel - Blood basophils absolute 0.07 K/uL low: 0K/uLh igh: 0.2K/u L BASOP HILS ABSOL [place] 0.07 0.00 - 0.20 K/uL 11/23 4:11 AM [employer] [facility] Not Available Not Available 12/24/2024 17:32:07 11/23/19 25 11/23/2024 CBC W Auto Diffe renti al panel - Blood immature granulocytes absolute 0.06 K/uL low: 0K/uLh igh: 0.03K/ uL high IMMAT URE GRANU LOCYT ES ABSOL [place] 0.06 (H) 0.00 - 0.03 K/uL 11/23 4:11 AM [employer] [facility] Not Available Not Available 12/24/2024 [...] - 145 mmol/ L 11/24 5:05 AM [employer] [facility] Not Available Not Available 12/24/2024 17:32:31 11/24/19 25 11/24/2024 Renal funct ion 1999 panel - Serum or Plasm a potassium [moles/volum e] in serum or plasma 4.3 mmol/ L low: 3.4mmo l/Lhig h: 5.1mmo l/L POTAS SIUM 4.3 3.4 - 5.1 mmol/ L 11/24 5:05 AM [employer] [facility] Not Available Not Available 12/24/2024 17:32:31 11/24/19 25 11/24/2024 Renal funct ion 1999 panel - Serum or Plasm a chloride 100 mmol/ L low: 98mmol /Lhigh : 107mmo l/L CHLOR BURT 100 98 - 107 mmol/ L 11/24 5:05 AM [facility] Not Available Not Available 12/24/2024 17:32:31 11/24/19 25 11/24/2024 Renal funct ion 1999 panel - Serum or Plasm a carbon dioxide, total [moles/volum e] in serum or plasma 24 mmol/ L low: 22mmol /Lhigh : 29mmol /L CO2 24 22 - 29 mmol/ L 11/24 5:05 AM [employer] [facility] Not Available Not Available 12/24/2024 17:32:31 11/24/19 25 11/24/2024 Renal funct ion 1999 panel - Serum or Plasm a calcium 9.1 mg/dL low: 8.6mg/ dLhigh : 10.4mg /dL CALCI UM 9.1 8.6 - 10.4 mg/dL 11/24 5:05 AM [employer] [facility] Not Available Not Available 12/24/2024 17:32:31 11/24/19 25 11/24/2024 Renal funct ion 1999 panel - Serum or Plasm a BUN 27 mg/dL low: 6mg/dL high: 20mg/d L high BUN 27 (H) 6 - 20 mg/dL 11/24 5:05 AM [employer] [facility] Not Available Not Available 12/24/2024 17:32:31 11/24/19 25 11/24/2024 Renal funct ion 1999 panel - Serum or Plasm a creatinine [mass/volume ] in serum or plasma 4.49 mg/dL low: 0.67mg /dLhig h: 1.17mg /dL high CREAT ININE 4.49 (H) 0.67 - 1.17 mg/dL 11/24 5:05 AM [employer] [facility] Not Available Not Available 12/24/2024 17:32:31 11/24/19 25 11/24/2024 Renal funct ion 1999 panel - Serum or Plasm a glucose [mass/volume ] in serum or plasma 71 mg/dL low: 74mg/d Lhigh: 99mg/d L low GLUCO SE 71 (L) 74 - 99 mg/dL 11/24 5:05 AM [employer] [facility] Not Available Not Available 12/24/2024 17:32:31 11/24/19 25 11/24/2024 Renal funct ion 2000 panel - Serum or Plasm a albumin 2.7 g/dL low: 3.5g/d Lhigh: 5.2g/d L low ALBUM IN 2.7 (L) 3.5 - 5.2 g/dL 11/24 5:05 AM [employer] [facility] Not Available Not Available 12/24/2024 17:32:31 11/24/19 25 11/24/2024 Renal funct ion 1999 panel - Serum or Plasm a phosphorus 2.8 mg/dL low: 2.5mg/ dLhigh : 4.5mg/ dL PHOSP HORUS 2.8 2.5 - 4.5 mg/dL 11/24 5:05 AM [employer] [facility] Not Available Not Available 12/24/2024 17:32:31 11/24/1911/24/2024 Renal funct ion 2000 panel - Serum or Plasm a glomerular filtration rate/1.73 sq M.predicted [volume rate/area] in serum, plasma or blood by creatinine-b ased formula (CKD-epi 2020) 14 text: >=60 mL/min /1.73 sq meter low GFR 14 (L) >=60 mL/mi n/1.7 3 sq meter 11/24 5:05 AM [employer] [facility] Not Available Not Available 12/24/2024 17:32:31 11/24/1911/24/2024 Renal funct ion 2000 panel - Serum or Plasm a anion gap 10 mmol/ L low: 8mmol/ Lhigh: 16mmol /L ANION GAP 10 8 - 16 mmol/ L 11/24 5:05 AM [employer] [facility] Not Available Not Available 12/24/2024 [...] 4.0 - 9.8 K/uL 11/24 5:01 AM [facility] Not Available Not Available 12/24/2024 17:32:07 11/24/19 25 11/24/2024 CBC panel - Blood by Autom ated count RBC 2.2 text: 4.50 - 5.40 M/uL low RBC 2.20 (L) 4.50 - 5.40 M/uL 11/24 5:01 AM [facility] Not Available Not Available 12/24/2024 17:32:07 11/24/19 25 11/24/2024 CBC panel - Blood by Autom ated count hemoglobin 7.3 g/dL low: 13.6g/ dLhigh : 16.5g/ dL low HEMOG LOBIN 7.3 (L) 13.6 - 16.5 g/dL 11/24 5:01 AM [employer] [facility] Not Available Not Available 12/24/2024 17:32:07 11/24/1911/24/2024 CBC panel - Blood by Autom ated count hematocrit [volume fraction] of blood by automated count 22.7 % low: 40%hig h: 48% low HEMAT OCRIT 22.7 (L) 40.0 - 48.0 % 11/24 5:01 AM [facility] Not Available Not Available 12/24/2024 17:32:07 11/24/19 25 11/24/2024 CBC panel - Blood by Autom ated count MCV 103.2 fL low: 82fLhi gh: 99fL high MCV 103.2 (H) 82.0 - 99.0 fL 11/24 5:01 AM [facility] Not Available Not Available 12/24/2024 17:32:07 11/24/19 25 11/24/2024 CBC panel - Blood by Autom ated count MCH 33.2 pg low: 27.2pg high: 32.6pg high MCH 33.2 (H) 27.2 - 32.6 pg 11/24 5:01 AM [facility] Not Available Not Available 12/24/2024 17:32:07 11/24/19 25 11/24/2024 CBC panel - Blood by Autom ated count MCHC 32.2 g/dL low: 31.5g/ dLhigh : 35.5g/ dL MCHC 32.2 31.5 - 35.5 g/dL 11/24 5:01 AM [employer] [facility] Not Available Not Available 12/24/2024 17:32:07 11/24/19 25 11/24/2024 CBC panel - Blood by Autom ated count platelets [#/volume] in blood by automated count 332 K/uL low: 140K/u Lhigh: 350K/u L PLATE LETS 332 140 - 350 K/uL 11/24 5:01 AM [employer] [facility] Not Available Not Available 12/24/2024 17:32:07 11/24/1911/24/2024 CBC panel - Blood by Autom ated count MPV 10.2 fL low: 9.3fLh igh: 12.4fL MPV 10.2 9.3 - 12.4 fL 11/24 5:01 AM [employer] [facility] Not Available Not Available 12/24/2024 17:32:07 11/24/19 25 11/24/2024 CBC panel - Blood by Autom ated count RDW 17.3 % low: 11.5%h igh: 14.5% high RDW 17.3 (H) 11.5 - 14.5 % 11/24 5:01 AM [facility] Not Available Not Available 12/24/2024 17:32:07 11/24/19 25 11/24/2024 CBC panel - Blood by Autom ated count RDW-stdev 65.5 fL low: 37.1fL high: 48.7fL high RDW-S TDEV 65.5 (H) 37.1 - 48.7 fL 11/24 5:01 AM [facility] Not Available Not Available [...] - 145 mmol/ L 11/25 5:27 AM [employer] [facility] Not Available Not Available 12/24/2024 17:32:31 11/25/1911/25/2024 Renal funct ion 1999 panel - Serum or Plasm a potassium [moles/volum e] in serum or plasma 4.4 mmol/ L low: 3.4mmo l/Lhig h: 5.1mmo l/L POTAS SIUM 4.4 3.4 - 5.1 mmol/ L 11/25 5:27 AM [employer] [facility] Not Available Not Available 12/24/2024 17:32:31 11/25/19 25 11/25/2024 Renal funct ion 1999 panel - Serum or Plasm a chloride 97 mmol/ L low: 98mmol /Lhigh : 107mmo l/L low CHLOR BURT 97 (L) 98 - 107 mmol/ L 11/25 5:27 AM [employer] [facility] Not Available Not Available 12/24/2024 17:32:31 11/25/19 25 11/25/2024 Renal funct ion 1999 panel - Serum or Plasm a carbon dioxide, total [moles/volum e] in serum or plasma 24 mmol/ L low: 22mmol /Lhigh : 29mmol /L CO2 24 22 - 29 mmol/ L 11/25 5:27 AM [facility] Not Available Not Available 12/24/2024 17:32:31 11/25/19 25 11/25/2024 Renal funct ion 1999 panel - Serum or Plasm a calcium 9.7 mg/dL low: 8.6mg/ dLhigh : 10.4mg /dL CALCI UM 9.7 8.6 - 10.4 mg/dL 11/25 5:27 AM [employer] [facility] Not Available Not Available 12/24/2024 17:32:31 11/25/19 25 11/25/2024 Renal funct ion 1999 panel - Serum or Plasm a BUN 40 mg/dL low: 6mg/dL high: 20mg/d L high BUN 40 (H) 6 - 20 mg/dL 11/25 5:27 AM [employer] [facility] Not Available Not Available 12/24/2024 17:32:31 11/25/19 25 11/25/2024 Renal funct ion 1999 panel - Serum or Plasm a creatinine [mass/volume ] in serum or plasma 6.66 mg/dL low: 0.67mg /dLhig h: 1.17mg /dL high CREAT ININE 6.66 (H) 0.67 - 1.17 mg/dL 11/25 5:27 AM [employer] [facility] Not Available Not Available 12/24/2024 17:32:31 11/25/19 25 11/25/2024 Renal funct ion 1999 panel - Serum or Plasm a glucose [mass/volume ] in serum or plasma 101 mg/dL low: 74mg/d Lhigh: 99mg/d L high GLUCO SE 101 (H) 74 - 99 mg/dL 11/25 5:27 AM [employer] [facility] Not Available Not Available 12/24/2024 17:32:31 11/25/19 25 11/25/2024 Renal funct ion 1999 panel - Serum or Plasm a albumin 2.9 g/dL low: 3.5g/d Lhigh: 5.2g/d L low ALBUM IN 2.9 (L) 3.5 - 5.2 g/dL 11/25 5:27 AM [employer] [facility] Not Available Not Available 12/24/2024 17:32:31 11/25/19 25 11/25/2024 Renal funct ion 1999 panel - Serum or Plasm a phosphorus 4.1 mg/dL low: 2.5mg/ dLhigh : 4.5mg/ dL PHOSP HORUS 4.1 2.5 - 4.5 mg/dL 11/25 5:27 AM [employer] [facility] Not Available Not Available 12/24/2024 17:32:31 11/25/19 25 11/25/2024 Renal funct ion 1999 panel - Serum or Plasm a glomerular filtration rate/1.73 sq M.predicted [volume rate/area] in serum, plasma or blood by creatinine-b ased formula (CKD-epi 2020) 9 text: >=60 mL/min /1.73 sq meter low GFR 9 (L) >=60 mL/mi n/1.7 3 sq meter 11/25 5:27 AM [facility] Not Available Not Available 12/24/2024 17:32:31 11/25/19 25 11/25/2024 Renal funct ion 2000 panel - Serum or Plasm a anion gap 12 mmol/ L low: 8mmol/ Lhigh: 16mmol /L ANION GAP 12 8 - 16 mmol/ L 11/25 5:27 AM [employer] [facility] Not Available Not Available 12/24/2024 [...] - 145 mmol/ L 11/26 6:35 AM [employer] [facility] Not Available Not Available 12/24/2024 17:32:07 11/26/19 25 11/26/2024 Renal funct ion 1999 panel - Serum or Plasm a potassium [moles/volum e] in serum or plasma 4.9 mmol/ L low: 3.4mmo l/Lhig h: 5.1mmo l/L POTAS SIUM 4.9 3.4 - 5.1 mmol/ L 11/26 6:35 AM [employer] [facility] Not Available Not Available 12/24/2024 17:32:07 11/26/19 25 11/26/2024 Renal funct ion 1999 panel - Serum or Plasm a chloride 96 mmol/ L low: 98mmol /Lhigh : 107mmo l/L low CH[place]URT 96 (L) 98 - 107 mmol/ L 11/26 6:35 AM [employer] [facility] Not Available Not Available 12/24/2024 17:32:07 11/26/19 25 11/26/2024 Renal funct ion 1999 panel - Serum or Plasm a carbon dioxide, total [moles/volum e] in serum or plasma 21 mmol/ L low: 22mmol /Lhigh : 29mmol /L low CO2 21 (L) 22 - 29 mmol/ L 11/26 6:35 AM [employer] [facility] Not Available Not Available 12/24/2024 17:32:07 11/26/19 25 11/26/2024 Renal funct ion 1999 panel - Serum or Plasm a calcium 10.3 mg/dL low: 8.6mg/ dLhigh : 10.4mg /dL CALCI UM 10.3 8.6 - 10.4 mg/dL 11/26 6:35 AM [employer] [facility] Not Available Not Available 12/24/2024 17:32:07 11/26/19 25 11/26/2024 Renal funct ion 1999 panel - Serum or Plasm a BUN 53 mg/dL low: 6mg/dL high: 20mg/d L high BUN 53 (H) 6 - 20 mg/dL 11/26 6:35 AM [facility] Not Available Not Available 12/24/2024 17:32:07 11/26/19 25 11/26/2024 Renal funct ion 1999 panel - Serum or Plasm a creatinine [mass/volume ] in serum or plasma 7.72 mg/dL low: 0.67mg /dLhig h: 1.17mg /dL high CREAT ININE 7.72 (H) 0.67 - 1.17 mg/dL 11/26 6:35 AM [facility] Not Available Not Available 12/24/2024 17:32:07 11/26/19 25 11/26/2024 Renal funct ion 1999 panel - Serum or Plasm a glucose [mass/volume ] in serum or plasma 100 mg/dL low: 74mg/d Lhigh: 99mg/d L high GLUCO SE 100 (H) 74 - 99 mg/dL 11/26 6:35 AM [employer] [facility] Not Available Not Available 12/24/2024 17:32:07 11/26/19 25 11/26/2024 Renal funct ion 1999 panel - Serum or Plasm a albumin 3.3 g/dL low: 3.5g/d Lhigh: 5.2g/d L low ALBUM IN 3.3 (L) 3.5 - 5.2 g/dL 11/26 6:35 AM [facility] Not Available Not Available 12/24/2024 17:32:07 11/26/19 25 11/26/2024 Renal funct ion 1999 panel - Serum or Plasm a phosphorus 4.5 mg/dL low: 2.5mg/ dLhigh : 4.5mg/ dL PHOSP HORUS 4.5 2.5 - 4.5 mg/dL 11/26 6:35 AM [facility] Not Available Not Available 12/24/2024 17:32:07 11/26/19 25 11/26/2024 Renal funct ion 1999 panel - Serum or Plasm a glomerular filtration rate/1.73 sq M.predicted [volume rate/area] in serum, plasma or blood by creatinine-b ased formula (CKD-epi 2020) 7 text: >=60 mL/min /1.73 sq meter low GFR 7 (L) >=60 mL/mi n/1.7 3 sq meter 11/26 6:35 AM 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 Not Available Not Available 12/24/2024 [...] CULTU RE SEE NOTE [facility] Not Available Not Available 12/24/2024 17:31:57 [...] 2 view No observ ation record ed. [address] [facility], [place], [address], 12/06/2022 11:38:43 03/06/20 23 03/06/2023 CT, abdom en + pelvi s, w/o contr ast No observ ation record ed. [address], [place], [address], 03/06/2023 12:46:38 05/25/20 23 05/23/2023 PET, skull base to mid-t high No observ ation record ed. [address], [place], [address], 06/13/2023 11:37:40 06/15/20 23 06/14/2023 ct guide d needl e biops y (PROC ) No observ ation record ed. [address], [place], [address], 06/15/2023 11:13:30 06/22/20 23 06/21/2023 XR, chest , 2 view No observ ation record ed. [address], [place], [address], 06/23/2023 10:57:46 10/26/19 24 10/25/2023 lab* No observ ation record ed. [email or web address], [place], [address], 10/26/2023 11:54:38 10/26/19 24 10/25/2023 lab* No observ ation record ed. [email or web address], [place], [address], 10/26/2023 11:54:45 10/26/19 24 10/25/2023 lab* No observ ation record ed. [address], [place], [address], 10/26/2023 11:54:52 11/03/19 24 10/25/2023 US, echoc ardio gram, trans thora cic, compl ete, w/ color flow No observ ation record ed. [address], [place], [address], 11/03/2023 15:21:02 02/27/20 24 02/27/2024 CT, chest , w/o contr ast No observ ation record ed. [address], [place], [address], 02/28/2024 10:32:32 06/07/20 24 05/16/2024 cole r monit or No observ ation record ed. [facility] Not Available 2023 14:40:16 09/04/20 24 09/03/2024 CT, chest + abdom en + pelvi s, w/o contr ast No observ ation record ed. [address], [place], [address], 09/04/2024 16:33:27 09/17/20 24 09/17/2024 XR, chest , 2 view No observ ation record ed. [address], [place], [address], 09/19/2024 19:04:41 11/05/19 25 11/05/2024 PET, skull base to mid-t high No observ ation record ed. [address], [place], [address], 11/06/2024 13:13:38 11/09/19 25 11/09/2024 XR, foot, 3 or more view No observ ation record ed. [address], [place], [address], 11/19/2024 17:24:11 11/10/19 25 11/09/2024 XR, foot, 2 view No observ ation record ed. [address] [address], [place], [address], 11/19/2024 17:24:12 11/10/19 25 11/10/2024 MRI, ankle + foot, w/o contr ast No observ ation record ed. [address] [address], [place], [address], 11/19/2024 17:24:12 01/08/20 25 01/07/2025 ct guide d needl e biops y (PROC ) No observ ation record ed. [address] [address], [place], [address], 01/07/2025 17:03:56 Result Notes None recorded. Problems Name Problem SNOMED Code Status Onset Date Resolution Date Notes Provider Name and Address Organization Details Recorded Time Irregular heart beat 527606703 Active 2019 Tatianna Frank [place] null, [place] [facility] 0 15:31:42 Bilateral hearing loss 60164936 Active 2021 INGE HACKETT Attn: Hema miri,[address] [facility], [place], [address], [place] [facility] 2 10:54:39 Renal cell carcinoma 885649074 Active 2021 Right, found 04/26/22 INGE HACKETT Attn: Accountmargarita chery,[address] [facility], [place], [address], [place] [facility] 3 10:05:14 Essential hypertensi on 49065330 Active 2021 INGE HACKETT Attn: Accountmargarita chery,[address] [facility], [place], [address], [place] [facility] 2 10:57:01 Tobacco dependence syndrome 34824937 Active 2021 INGE HACKETT Attn: Accountmargarita g,[address] [facility], [place], [address], [place] [facility] 2 13:06:45 Alcohol dependence 70562725 Active 2021 INGE HACKETT Attn: Accountmargarita chery,[address] [facility], [place], [address], [place] [facility] 2 13:06:52 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 561878756 Active 2021 INGE HACKETT Attn: Accountmargarita chery,[address] [facility], [place], [address], [place] [facility] 2 11:31:07 Umbilical hernia 125351379 Active 2021 INGE HACKETT Attn: Accountmargarita chery,[address] [facility], [place], [address], [place] [facility] 2 11:06:26 Excision of right kidney Active 2021 removed 05/10/22 INGE HACKETT Attn: Accountin g,[address] [facility], [place], [address], [place] [facility] 2 21:09:42 Neuropathy 397884395 Active 2021 INGE HACKETT Attn: Accountmargarita g,[address] [facility], [place], [address], [place] [facility] 2 18:40:51 Chronic neck pain 288913318806 7 Active 2021 INGE HACKETT Attn: Hema chery,[address], [place], [address], [place] [facility] 2 18:41:02 Chronic kidney disease stage 5 813394602 Active 2021 INGE HACKETT Attn: Hema chery,[address], [place], [address], [place] [facility] 2 21:12:11 Screening for malignant neoplasm of colon Active 2022 due for repeat 2025 INGE HACKETT Attn: Hema chery,[address], [place], [address], [place] [facility] 3 14:56:10 End-stage renal disease 19660172 Active 2023 INGE HACKETT Attn: Hema chery,[address] [facility], [place], [address], [place] [facility] 4 17:24:47 Problem Notes None recorded. Procedures Surgical History None recorded. Imaging Results Imaging Date Name Status LastModified by [facility] Details LastModified Time 12/05/2022 XR, chest, 2 view completed [address], [address], 12/06/2022 11:38:43 03/06/2023 CT, abdomen + pelvis, w/o contrast completed [address], [address], 03/06/2023 12:46:38 05/23/2023 PET, skull base to mid-thigh completed [address], [address], 06/13/2023 11:37:40 06/14/2023 ct guided needle biopsy (PROC) completed [address], [address], 06/15/2023 11:13:30 06/21/2023 XR, chest, [address] completed [address], [place], [address], 06/23/2023 10:57:46 10/25/2023 lab* completed [address], [place], [address], 10/26/2023 11:54:38 10/25/2023 lab* completed [address], [place], [address], 10/26/2023 11:54:45 10/25/2023 lab* completed [address], [place], [address], 10/26/2023 11:54:52 10/25/2023 US, echocardiogra m, transthoracic , complete, w/ color flow completed [address], [place], [address], 11/03/2023 15:21:02 02/27/2024 CT, chest, w/o contrast completed [address], [place], [address], 02/28/2024 10:32:32 05/16/2024 holter monitor completed [facility] Information not available 06/07/2024 14:40:16 09/03/2024 CT, chest + abdomen + pelvis, w/o contrast completed [address], [place], [address], 09/04/2024 16:33:27 09/17/2024 XR, chest, 2 view completed [address], [place], [address], 09/19/2024 19:04:41 11/05/2024 PET, skull base to mid-thigh completed [address] [address], [place], [address], 11/06/2024 13:13:38 11/09/2024 XR, foot, 3 or more view completed [address], [place], [address], 11/19/2024 17:24:11 11/09/2024 XR, foot, 2 view completed [address], [address], 11/19/2024 17:24:12 11/10/2024 MRI, ankle + foot, w/o contrast completed [address] [address], [place], [address], 11/19/2024 17:24:12 01/07/2025 ct guided needle biopsy (PROC) completed [address], [address], 01/07/2025 17:03:56 Procedure Notes None recorded. Medical [...] Updated DateTime 3 182.88 cm 28.1 kg/m2 21839.0 2 g 99 % 99 % 86 /min 140 mm[Hg] 72 mm[Hg] Opal Pugh MA [facility] 3 10:01:06 Date Recorded Respiratory rate Systolic blood pressure Diastolic blood pressure Provider Name and Address Organization Details Last Updated DateTime 10/24/2022 18 /min 128 mm[Hg] 72 mm[Hg] INGE HAKCETT Attn: Accounting, [address] [place], [address], [facility] 10/24/2022 10:23:32 Date Recorded Body height Body mass index (BMI) Body weight Oxygen saturation Oxygen saturation in Arterial blood by Pulse oximetry Heart rate Respiratory rate Body temperature Systolic blood pressure Diastolic blood pressure Provider Name and Address Organization Details Last Updated DateTime 3 182.88 cm 29.2 kg/m2 26694.7 6 g 95 % 95 % 74 /min 16 /min 97.5 [degF] 140 mm[Hg] 74 mm[Hg] Cammy Nieves CMA [facility] SI 3 10:59:30 Date Recorded Systolic blood pressure Diastolic blood pressure Provider Name and Address Organization Details Last Updated DateTime 12/19/2022 138 mm[Hg] 70 mm[Hg] INGE HACKETT Attn: Accounting, [place], [address], [facility] 12/19/2022 11:24:43 Date Recorded Body height Body mass index (BMI) Body weight Oxygen saturation Oxygen saturation in Arterial blood by Pulse oximetry Heart rate Body temperature Systolic blood pressure Diastolic blood pressure Provider Name and Address Organization Details Last Updated DateTime 3 182.88 cm 29.3 kg/m2 54786.3 5 g 98 % 98 % 72 /min 98.3 [degF] 165 mm[Hg] 72 mm[Hg] Cammy Nieves CMA [facility] 10:06:40 Date Recorded Respiratory rate Systolic blood pressure Diastolic blood pressure Provider Name and Address Organization Details Last Updated DateTime 06/13/2023 18 /min 150 mm[Hg] 72 mm[Hg] INGE HACKETT Attn: Accounting, [address] [place], [address], [facility] 06/13/2023 10:32:42 Date Recorded Body height Body mass index (BMI) Body weight Oxygen saturation Oxygen saturation in Arterial blood by Pulse oximetry Heart rate Systolic blood pressure Diastolic blood pressure Provider Name and Address Organization Details Last Updated DateTime 3 182.88 cm 27.5 kg/m2 40635.2 5 g 98 % 98 % 65 /min 179 mm[Hg] 73 mm[Hg] Cathi Coyle MA [facility] 11:07:12 Date Recorded Respiratory rate Systolic blood pressure Diastolic blood pressure Provider Name and Address Organization Details Last Updated DateTime 08/04/2023 18 /min 140 mm[Hg] 70 mm[Hg] INGE HACKETT Attn: Accounting, [address] [place], [address], [facility] 08/04/2023 11:31:36 Date Recorded Body height Body mass index (BMI) Body weight Oxygen saturation Oxygen saturation in Arterial blood by Pulse oximetry Heart rate Respiratory rate Systolic blood pressure Diastolic blood pressure Provider Name and Address Organization Details Last Updated DateTime 5 182.88 cm 26.7 kg/m2 68543.7 g 96 % 96 % 102 /min 20 /min 125 mm[Hg] 78 mm[Hg] Opal Pugh MA [facility] SI 16:45:31 Date Recorded Heart rate Provider Name an d Address Organization Details Last Updated DateTime 12/24/2024 90 /min INGE HACKETT Attn: Accounting [facility], [place], [address], [facility] 12/30/2024 09:11:19 Social History Question Answer Notes LastModified by Organizat ion Details LastModified Time Tobacco Smoking Status Current Every Day Smoker Tatianna Frank MA null, [facility] 12/28/2020 16:47:06 What Is Your Level [...] Of Your Most Recent Tobacco Screening? 12/24/2024 [email or web address] Information not available 12/24/2024 What Is Your [...] Date Was Tobacco Cessation Counseling Provided? 12/24/2024 Information not available 12/24/2024 How Many Years [...] Atrial Fibrillation N High Blood Pressure Y Depression N COPD N Blood Clots N Anxiety Disorder N Muscle, Joint, or Bone Problems N Acid Reflux (GERD) N Cancer N Stroke N ADHD N High Cholesterol N Liver Disease N Schizophrenia N Headaches N Thyroid Problems N Kidney or Bladder Problems N GI Problems N Eating Disorder N Skin Problems N Anemia N Heart Attack (MD) N Diabetes N Seizures/Epilepsy N Asthma N Allergies N Substance Abuse N Hepatitis N Heart Failure N Osteoporosis N Immunizations [...] 3 completed INGE HACKETT Attn: Accounting,[address] [facility], [place], [address], [place] [facility] 10/24/2022 13:53:49 Pneumococcal conjugate PCV20, polysaccharide EMD939 conjugate, adjuvant, PF 3 completed INGE HACKETT Attn: Accounting,[address] [facility], [place], [address], [place] [facility] 10/24/2022 13:53:49 Influenza, split virus, quadrivalent, PF 3 completed INGE HACKETT Attn: Accounting,[address] [facility], [place], [address], [place] [facility] 08/04/2023 12:34:19 Past Encounters Encounter ID Performer Location Encounter Start Date Encounter Closed Date Diagnosis/Indication Diagnosis SNOMED-CT Code Diagnosis ICD10 Code Diagnosis Note [id number] Bev Chandler MD [facility] [address] [place] [address] 02/18/2020 11:32:38 02/24/2020 06:10:37 Essential hypertension 42330053 I10 174/117, pulse 145; patient was asked to call us with follow up blood pressure next week. [id number] Bev Chandler MD [facility] [address] [place] [address] 12/28/2020 08:09:29 12/31/2020 10:17:06 Essential hypertension 60030736 I10 174/117, pulse 145; patient was asked to call us with follow up blood pressure next week. Adult [facility] examination 861059278 Z00.00 [id number] INGE HACKETT [facility] [address] [place] [address] 12/28/2021 13:45:33 12/29/2021 10:48:07 Essential hypertension 07801358 I10 routine labspt taking lasix, unsure of why he is takingwill check kidney function today to see if can dc Screening for malignant neoplasm of colon 380833354 Z12.11 constipati on occurs every 2-3 daysno blood in stoolshas not had colon cancer screeningd iscussed cologuard vs colonoscop ysent for GI consult with colonoscop lizbeth del rosario increasing fluid intake, high fiber foods Neuropathy 610162137 G62 .9 chronic to bilateral feet x30 yrsdecreas ed sensation to ball of right foot up to toes and unable to feel sensation from ball of L foot up to toesEMG Onychomyco sis of toenails 220143623 B35.1 severe to all toespodiat ry referral Depression screening 171 242872 Z13.31 PHQ 0 Pre-surger y evaluation 743824857 Z01.818 cataract surgery scheduled 03/07/22eva l has to be completed no more than 30 days before surgeryadv ised pt to f/u in 6 wks to complete form [id number] INGE HACKETT [facility] [address] [place] [address] 02/21/2022 09:43:49 02/22/2022 10:28:59 Pre-surgery evaluation 820286931 Z01.818 02/21/22: cataract surgery scheduled 03/07/22PEx - nlcomplete d medical clearance form and faxed 12/28/21:ca taract surgery scheduled 03/07/22eva l has to be completed no more than 30 days before surgeryadv ised pt to f/u in 6 wks to complete form Essential hypertension 20017776 I10 02/21/22: BP controlled todayno med changesreq uested records from nephrology and urology 12/30/21: Cr 2.79- advised pt of lab results, CKD stage 4 and rec'd pt go to hospital. he was amendable to go to [facility] 12/28/21:casa beckham labspt taking lasix, unsure of why he is takingwill check kidney function today to see if can dc Neuropathy 372085917 G62 .9 02/21/22:pt has upcoming EMGs scheduled 12/28/21:ch ronic to bilateral feet x30 yrsdecreas ed sensation to ball of right foot up to toes and unable to feel sensation from ball of L foot up to toesEMG Onychomyco sis of toenails 553279113 B35.1 02/21/22:turner nted off referral and encouraged pt to call to schedule appt 12/28/21:se kathy to all toespodiat ry referral Screening for malignant neoplasm of colon 799550951 Z12.11 02/21/22: pt reports constipati on has [...] foods Chronic ki dney disease stage 4 953110763 N18.4 Cr 2.79follow ing with Dr. Mcnulty (Nephrolog y) and Dr. Collins (Urology)M RI showed 6.1 cm mass to R kidney consistent with renal cell carcinomap t states that he is waiting to see if kidney function improves, if not he will have to go on dialysis or have R kidney removedreq uested records [id number] INGE HACKETT [facility] [address] [place] [address] 04/26/2022 10:13:50 04/27/2022 10:16:08 Chronic kidney disease stage 4 293297017 N18.4 05/10/22: R nephrectom y on 05/10/[address] Mayberry (Urology [facility])follow ing with Dr. Mcnulty (Nephrolog y)spoke with [...] R kidney removedreq uested records Essential hypertension 80748057 I10 04/26/22: BP 166/86did not take BP medication s yethas been out of meds x5 dayswill refill, hold lasix 02/21/22: BP controlled todayno med changesreq uested records from nephrology and urology 12/30/21: Cr 2.79- advised pt of lab results, CKD stage 4 and rec'd pt go to hospital. he was amendable to go to [facility] 12/28/21:casa beckham labspt taking lasix, unsure of why he is takingwill check kidney function today to see if can dc Neuropathy 143592225 G62 .9 04/26/22:do ne 04/14/22wil l request records 02/21/22:pt has upcoming EMGs scheduled 12/28/21:ch ronic to bilateral feet x30 yrsdecreas ed sensation to ball of right foot up to toes and unable to feel sensation from ball of L foot up to toesEMG Umbilical hernia 5539241 07 K42.9 PEx- non-reduci ble, non-tender , not strangulat edremoval 05/10/[address] Benjamin Bilateral hearing loss 61683133 H91.93 c/o chronic tinnitushe ars mumbling when in conversati ons with multiple people, hard to focus hearingfam felecia told him he has hearing issuesPEx- bilateral EACs clear, TMs nlwill order hearing screen at f/u Depression screening 171 458006 Z13.31 PHQ 0 Renal cell carcinoma 702 793704 C64.9 MRI showed 6.1 cm mass to R kidney consistent with renal cell carcinomaR nephrectom y on 05/10/22 [id number] Darci milner MD [facility] [address] [place] [address] 05/25/2022 11:41:52 05/26/2022 13:24:04 Renal cell carcinoma 625831841 C64.9 05/25/22: pt reports surgery went wellpathol ogy study showed 7.5 cm renal cell carcinoma, R nephrectom y, all margins negative for invasive carcinomah as f/u with surgeon tomorrow 04/26/22:MR I showed 6.1 cm mass to R kidney consistent with renal cell carcinomaR nephrectom y on 05/10/22 Chronic ki dney disease stage 4 691010329 N18.4 05/26/22:sp marzena with Kaya Shahid, pt's [...] R kidney removedreq uested records Essential hypertension 06840056 I10 05/25/22:ca n take ASA for primary [...] hospital. he was amendable to go to [facility] 12/28/21:casa beckham labspt taking lasix, unsure of why he is takingwill check kidney function today to see if can dc Umbilical hernia 6895962 07 K42.9 05/25/22:merchant d f/u with surgeon yesterday, mesh is in place, minor swelling, not concerned 04/26/22:PE x- non-reduci ble, non-tender , not strangulat edremoval 05/10/[address] Benjamin Neuropathy 437080447 G62 .9 05/25/22:EM G showed severe motor [...] foot up to toesEMG Bilateral hearing loss 73419136 H91.93 05/25/22:re georges for hearing screenprin madie off referral and encouraged pt to call to schedule appt 04/26/22:c/ o chronic tinnitushe ars mumbling when in conversati ons with multiple people, hard to focus hearingfam felecia told him he has hearing issuesPEx- bilateral EACs clear, TMs nlwill order hearing screen at f/u Depression screening 171 501726 Z13.31 PHQ 0 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 333265728 M21.6X9 05/26/22:di scussed results with pt and sisterXR L foot showed hypertroph ic bony fusion at 1st MTP joint, arterial calcificat ionspt denies any pain or issues with walkingwil l refer to podiatry 05/25/22:L MTP joint enlarged, unable to extend L big toeno pain Chronic neck pain 356470 4167 107 M54.2 05/16/22: discussed results with pt [...] spineorder ed XR C spine Alcohol dependence 12875 003 F10.20 drinking 1 pint of cheap vodka per day x3 yrsstopped [address] is requesting medication to help with withdrawal sxdiscusse d that pt is not showing withdrawal symptoms, out of withdrawal window at this timeoffere d outpatient treatment, pt refused at this time [id number] INGE HACKETT [facility] [address] [place] [address] 06/24/2022 09:46:21 06/28/2022 10:02:50 Essential hypertension 54258430 I10 06/24/22:BP check 132/74BP at home 120s-150s/ [...] hospital. he was amendable to go to [facility] 12/28/21:casa beckham labspt taking lasix, unsure of why he is takingwill check kidney function today to see if can dc [id number] INGE HACKETT [facility] [address] [place] [address] 07/01/2022 10:32:41 07/05/2022 09:24:24 Chronic kidney disease stage 4 417803034 N18.4 07/01/22:co mpleted kidney smart classfollo wing [...] have R kidney removedreq uested records Neuropathy 747426745 G62 .9 07/01/22:ne uro appt in 1 [...] foot up to toesEMG Chronic neck pain 093777 2055 107 M54.2 07/01/22:ne uro appt in 1 [...] C spine 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 he was amendable to go to [facility] 12/28/21:ro utine labspt taking lasix, unsure of why he is takingwill check kidney function today to see if can dc Bilateral hearing loss 28279403 H91.93 07/01/22:horacio ivan with audiologis t who [...] TMs nlwill order hearing screen at f/u [id number] INGE HACKETT [facility] [address] [place] [address] 08/15/2022 10:51:52 08/16/2022 12:08:52 Essential hypertension 77357855 I10 08/15/22: BP 138/84took meds 1 hour [...] hospital. he was amendable to go to [facility] 12/28/21:casa meyerne labspt taking lasix, unsure of why he is takingwill check kidney function today to see if can dc Neuropathy 631069590 G62 .9 08/15/22: neuro told pt, neuropathy is likely due to alcohol useDr. Alegria at [place] ([place]urology ), did blood work, pt has [...] foot up to toesEMG Chronic neck pain 073193 9471 107 M54.2 08/15/22:n euro told pt not [...] ed XR C spine Bilateral hearing loss 75780134 H91.93 08/15/22:i nsurance will not cover hearing aideshas appt to get fitted for hearing aides tomorrow [facility] he has to buy hearing aides OTC [...] order hearing screen at f/u Alcohol dependence 79082 003 F10.20 08/15/22:4 ounces/day trying to cut [...] time Chronic ki dney disease stage 5 428172021 N18.5 08/15/22:S aw nephro 08/02/22:h old KERI/ARB given severity of CKD and K, low protein dietdiscus sed low protein/lo w potassium dietrefer to Vascular surgery for vein mapping, pt wants to do peritoneal dialysisha s appt on 09/02/22 at [facility] 07/01/22:co mpleted kidney smart classfollo wing with [...] removedreq uested records Tobacco de pendence syndrome 39545638 F17.200 1/2 ppd currentlyw as smoking 1.5 ppd to 2 ppd before kidney surgerytri al nicotine patches Chronic ki dney disease stage 4 902912540 N18.4 07/01/22:co mpleted kidney smart classfollo wing [...] or have R kidney removedreq uested records [id number] INGE HACKETT [facility] [address] [place] [address] 10/24/2022 09:47:18 10/26/2022 09:28:07 Chronic kidney disease stage 5 [id number] N18.5 10/24/22:fis xiao R forearm, placed 09/20/22not [...] peritoneal dialysisha s appt on 09/02/22 at [facility] 07/01/22:co mpleted kidney smart classfollo wing with [...] R nephrectom y on 05/10/[address] Maybrery (Urology [facility])follow ing with Dr. Mcnulty (Nephrolog [...] R kidney removedreq uested records Essential hypertension 35089641 I10 10/24/22:BP 128/72refi ll meds 08/15/22:B P [...] hospital. he was amendable to go to [facility] 12/28/21:casa beck[place] labspt taking lasix, unsure of why he is takingwill check kidney function today to see if can dc Bilateral hearing loss 87922267 H91.93 10/24/22:rec 'd hearing aide to [place] 08/15/22:i nsurance will not cover hearing aideshas appt to get [facility] [...] nlwill order hearing screen at f/u Neuropathy [id number] G62 .9 10/24/22:has f/u in 1 mo 08/15/22: neuro told pt, neuropathy is likely due to alcohol useDrJennyfer Alegria at [place] (Neurology ), did blood work, pt has [...] up to toesEMG Tobacco de pendence syndrome 67958200 F17.200 10/24/22:unk nown if can try wellbutrin due to CKDover 1/2 ppd 08/15/22:1 /2 ppd currentlyw as smoking 1.5 ppd to 2 ppd before kidney surgerytri al nicotine patches Alcohol dependence 69193 003 F10.20 10/24/22:sti ll drinking 4 ounces/day [...] this time Administra tion of influenza vaccine 00110316 Z23 Screening for malignant neoplasm of colon 981485014 Z12.11 10/24/22:ref er for colonoscop y 02/21/22: [...] increasing fluid intake, high fiber foods Overweight 945380245 E66 .3 discussed increasing exercise and healthier food options Depression screening 171 809234 Z13.31 PHQ 0 [id number] INGE HACKETT [facility] [address] [place] [address] 12/19/2022 10:53:06 12/19/2022 11:28:41 Chronic kidney disease stage 5 578234540 N18.5 12/19/22:rob d trying to hold off [...] peritoneal dialysisha s appt on 09/02/22 at [facility] 07/01/22:co mpleted kidney smart classfollo wing with [...] R kidney removedreq uested records Essential hypertension 75535114 I10 12/19/22:BP 138/70 10/24/22:BP 128/72refi ll meds [...] hospital. he was amendable to go to [facility] 12/28/21:ro utine labspt taking lasix, unsure of why he is takingwill check kidney function today to see if can dc Tobacco de pendence syndrome 71285687 F17.200 12/19/22:has n't tried yet wellbutrin encouraged to trial for smoking cessation 10/24/22:unk nown if can try wellbutrin due to CKDover 1/2 ppd 08/15/22:1 /2 ppd currentlyw as smoking 1.5 ppd to 2 ppd before kidney surgerytri al nicotine patches Alcohol dependence 32232 003 F10.20 12/19/22:unc hangedrefu sed outpatient tx [...] time Screening for malignant neoplasm of colon 765179890 Z12.11 12/19/22:com pleted 11/14/22, repeat in 3 [...] increasing fluid intake, high fiber foods Fatigue 86852523 R53.83 x1 motakes daily Vit [id number] 6 days/weeks tarted lasix 2 wks ago and waking up 3x/nightSO B worse with laying flat and with exertionde scribes as tired gai daysi 8 lbs in 1 moPEx- nlcheck vitamins and probnpUS echo Depression screening 171 643307 Z13.31 PHQ 0 [id number] INGE HACKETT [facility] [address] [place] [address] 06/13/2023 09:57:00 06/15/2023 12:25:24 Chronic kidney disease stage 5 884251092 N18.5 06/13/23:st ill holding off on dialysisha [...] peritoneal dialysisha s appt on 09/02/22 at [facility] 07/01/22:co mpleted kidney smart classfollo wing with [...] removedreq uested records Tobacco de pendence syndrome 99725762 F17.200 06/13/23:1 ppdwellbut rin caused testicles to swellpatch es make him itchnot ready to quit 12/19/22:has n't tried yet wellbutrin encouraged to trial for smoking cessation 10/24/22:unk nown if can try wellbutrin due to CKDover 1/2 ppd 08/15/22:1 /2 ppd currentlyw as smoking 1.5 ppd to 2 ppd before kidney surgerytri al nicotine patches Alcohol dependence 02038 003 F10.20 06/13/23:dr muse 2 ounces of [...] pt refused at this time Essential hypertension 27929817 I10 06/13/23:BP 150/70took meds 1 hr agoadvised [...] hospital. he was amendable to go to [facility] 12/28/21:ro utine labspt taking lasix, unsure of why he is takingwill check kidney function today to see if can dc Pelvic lymphadenopathy 600449245 R59.0 found on PET scan 05/23/23:non -specific mild L pelvic LAD, prostatome daija with small focus of asymmetric increased uptake at posterior left prostate, correlate with PSA level, cholelithi asis, unchanged 5.1 cm infrarenal AAAfollowi ng with Oncologyha s another scan tomorrow Diarrhea 35401177 R19.7 x1 trevon the morning and at nightinter mittentloo seno concerning sxno new foods or medsPEx- nl- Increase your fluid intake to replace losses.- BRAT diet- trial anti-diarr heal and foods that bulk stools- Avoid milk, greasy foods and anything that doesn t agree with youif symptoms do not improve in 2 wks, make f/u appt, will refer to GI Depression screening 171 901769 Z13.31 PHQ 0 [id number] INGE HACKETT [facility] [address] [place] [address] 08/04/2023 10:47:09 08/14/2023 11:09:17 Chronic kidney disease stage 5 553352300 N18.5 08/04/23:s till holding off on dialysisha [...] legshas [facility] 10/24/22:fis [...] peritoneal dialysisha s appt on 09/02/22 at [facility] 07/01/22:co mpleted kidney smart classfollo wing with [...] R kidney removedreq uested records Essential hypertension 94717690 I10 08/04/23:B P 179/73, 140/70take s meds [...] hospital. he was amendable to go to [facility] 12/28/21:ro utine labspt taking lasix, unsure of why he is takingwill check kidney function today to see if can dc Depression screening 171 089042 Z13.31 PHQ 0 Pelvic lymphadenopathy 291253441 R59.0 08/04/23:p er patient- biopsy was negativere peat CT scan Oct 2023 and f/u with oncology in Nov 2023 06/13/23:fo und on PET scan 05/23/23:non -specific mild L pelvic LAD, prostatome daija with small focus of asymmetric increased uptake at posterior left prostate, correlate with PSA level, cholelithi asis, unchanged 5.1 cm infrarenal AAAfollowi ng with Oncologyha s another scan tomorrow Alcohol dependence 24686 003 F10.20 08/04/23:w ants to quitdoes not [...] at this time Tobacco de pendence syndrome 55378488 F17.200 08/04/23:1 /2 ppd to 1 ppd [...] nicotine patches Administra tion of influenza vaccine 79189267 Z23 [id number] INGE HACKETT [facility] [address] [place] [address] 12/24/2024 16:36:09 12/24/2024 17:18:59 End-stage renal disease 98558873 N18.6 refill [facility] Tues, Thurs, Sat Smoker 72760837 F17.200 still smoking 1/2 ppd Essential hypertension 68142243 I10 BP 125/78refi ll meds Hyperlipidemia 19227648 E78.5 refill Chronic ob structive pulmonary disease 79225232 J44.9 refill Hospital i npatient stay within past 30 days 0833668141 106 Z76.89 Admitted to [facility] in [place] 10/24/24 to 11/26/24 To dd Lakesha Sloan is a 64 y.o. male with a pertinent history significan t for ESRD on HD TTS, AAA, DVT, persistent A-fib, HTN, adrenal mass/pulmo nary nodules, renal cell carcinoma, peripheral vascular disease, who presented with initially to outside hospital ([facility]) for evaluation of necrotic left foot. Due to gangrene of the left foot patient was transferre d to [facility] for vascular surgery evaluation .Patient was treated [...] clinic on discharge. Renal cell carcinoma 702 239984 C64.9 12/25/24: OV with Dr. Carrasco (Oncology) [...] nephrectom y on 05/10/22 Depression screening 171 471232 Z13.31 PHQ 0 Health Concerns Section Related Observation LastModified by Organization Detai ls LastModified Time None Recorded Concern Status LastModified by Organization Details LastModified Time None Recorded Advance Directives Directive None Recorded Payers Encounter Date Sequence Insurance Name Policy Number Policy Simons Covered Member ID Simons Member ID Guarantor Name 10/24/2022 2 *SELF PAY* To micah Sloan 10/24/2022 1 [employer] (PPO) [id number] Kar Sloan [id number] Kar Sloan 12/19/2022 1 [facility] STRATEGIES - REPLACED BY [facility] (PPO) Kar Sloan [id number] Kar Sloan 06/13/2023 1 [place] [id number] Kar Sloan [id number] Kar Sloan 08/04/2023 1 [place] [id number] Kar Sloan [id number] Kar Thackerner 12/24/2024 1 [place] [id number] Kar Sloan [id number] Kar Sloan Notes Date Note Type Note Provider Name and Address Organization Details Recorded Time 10/24/2022 text/html Pt presents for f/u. Reports he had fistula placed to R arm on 09/20/22. He has f/u with nephrology about dialysis in 1 mo. INGE HACKETT Attn: Accounting[address] [facility] [place], [address], [place] [facility] 10/24/2022 13:56:30 12/19/2022 text/html [...] HACKETT Attn: Accounting,[address], [place], [address], [place] [facility] 12/19/2022 21:09:16 06/13/2023 text/html [...] HACKETT Attn: Accounting,[address], [place], [address], [place] [facility] 06/13/2023 11:41:27 08/04/2023 text/html [...] HACKETT Attn: Accounting,[address], [place], [address], [place] [facility] 08/04/2023 12:39:28 12/24/2024 text/html Pt presents for FMLA paperwork. Last OV with PCP 07/2023. 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 He was admitted to [facility] 11/13/24, transferred to [facility] and discharged 11/26/24. He is following closely with Dr. Luciano (Podiatry), Dr. Carrasco (Oncology), Dr. Dykes (Vascular), and Dr. Mcnulty (Nephrology). 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 Pt completed PT and has home health to change dressings on his feet. Requesting FMLA for 12 wks. INGE HACKETT Attn: Accounting[address] [facility], [place], [address], [place] [facility] 12/30/2024 09:20:46
--- OUTSIDE RECORDS SUMMARY | 2025-02-04 17:26 | XMS_ITS | Clinical Summary ---
Author Organization [facility] Address [facility] [place] [address] Care Team Providers Care Sleeve Presser Operator Name Role Phone Gia Clark PA-C Primary Care Provider [phone] Allergies No known active allergies Medications sodium [...] and Td Vaccines (1 - Tdap) 1979 Pneumococcal Vaccine: 50+ Years (1 of 1 - PCV) 2010 Zoster Vaccines (1 of 2) 2010 COVID-19 [...] this topic Medical Devices Implanted Type Area Senior Applications Engineer Device Identifier Shelf Expiration Date Model / Serial / Lot Dirk Clareon Iol Implanted:Qty: 1 on 06/13/2022 by Jung Rosales MD at [facility] Left: Eye DIRK - SURGICAL DIV 02/27/2025 [id number] / [id number] / Insurance [facility] Care Teams Sleeve Presser Operator Relationship Specialty Start Date End Date Gia Clark PA-C PCP - General PHYSICIAN GENERAL UTILITY WORKER 06/13/22
[2025-02-06 13:53] LABS: NIL 0.02 IU/mL; Quantiferon TB Plus, 1T NEGATIVE (NEGATIVE)
== END 2025-02-04 15:16 | disposition home or self-care (01) ==
LOC: ANHLAB 15:16
PROVIDERS: PCP Physician Assistant; Visit Provider Internal Medicine Hematology & Oncology
DX: Z11.59 Encounter for screening for other viral diseases (principal)
CPT/HCPCS: 36415; 86480

== ENCOUNTER 2025-02-07 03:07 | Day surgery (SDC) | payer BC, SELFPAY ==
[2025-01-29 11:38] VITALS: BMI 27.1
--- NOTE | 2025-01-29 11:39 | PC.NURSE ---
Report to the Outpatient Waiting Room, entrance under the green pavilion located off [facility], at time ___0700____ on date ____02/07/25___. Planned Procedure Time: ____09____.? Time changes happen often and if your time is changed the preop area will call you the afternoon before. - You and your visitor will be asked to self-screen and do not enter if you have any COVID symptoms. Please call surgeon if you need to reschedule. - A mask is optional within the hospital at this time. Patients may have clear liquids (water, carbonated beverages, clear teas, apple juice) until 3 hours prior to surgery with a maximum of 20 ounces. - No food from midnight until time of surgery and no smoking, or chewing tobacco (or any form of nicotine). No chewing gum, candy or mints. Take only the following medications with a SIP of water on the morning of surgery: ___amlodipine, metoprolol, fluticasone (inhaler)____ DO NOT STOP ANY OF YOUR OTHER PRESCRIPTION MEDICATIONS PRIOR TO SURGERY EXCEPT THE FOLLOWING Hold all vitamins and supplements for 3 days per anesthesiologist. Medications to discontinue per physician hold Eliquis per physician - (3 days prior to surgery) Please no make-up, nail malawian, hairspray, perfume, deodorant, or body powder the day of surgery.? No jewelry (including any body piercings) or valuables the day of surgery, leave them at home.? Please take a shower or bath the night before, or the morning of, surgery with an antibacterial soap.? Wear comfortable, loose fitting clothing.? Children are encouraged to wear pajamas. - Jewelry must be removed prior to entering the operating room.? Rings and piercings that are not removed may be cut off. - The hospital will not accept responsibility for valuables.? - Please leave all valuables, including medications, at home the day of surgery. If you are going home after surgery, a licensed local company hazmat driver must drive you home.? - NO public transportation without another adult if you receive anesthesia. - We recommend that an adult stay with you for 24 hours following discharge. - We also recommend that you do not drive, make important decision, drink alcoholic beverages, or take any drugs that were not prescribed by your health care provider for at least 24 hours after your discharge time. Follow any additional instructions given to you from your surgeon. Telephone instructions given to Todd and asked if any additional questions and then verbalized understanding. Patient advised to call surgeon office or pre surgery nurse liaison [phone] if any additional questions.
--- NOTE | ~2025-02-07 | XR_ITS ---
INTRAOPERATIVE FLUOROSCOPY: CLINICAL HISTORY: 64 years old Male; INSERTION HARRIS CATH PROCEDURE COMMENTS: Limited intraoperative fluoroscopy of the chest was performed. CUMULATIVE DOSE: 11.5 mGy FLUOROSCOPY TIME: 44 seconds FINDINGS/IMPRESSION: Please refer to operative note for further details. Reviewed, dictated and finalized at location A.
--- NOTE | ~2025-02-07 | XR_ITS ---
EXAMINATION: XR chest port-a-cath/central DATE: 02/07/2025 08:52 INDICATION: Status post port catheter insertion TECHNIQUE: frontal view of the chest was obtained. COMPARISON: Chest radiograph dated 11/09/2024 FINDINGS: Left subclavian central venous port catheter with distal tip at the superior cavoatrial junction. The re is undulation the course of the catheter where it passes between the left clavicle and anterior fi rst rib without evident flattening or sharp kink. The lungs are clear with no focal airspace opacitie s, pulmonary edema, pleural effusion or pneumothorax. The cardiomediastinal silhouette is normal. Old healed fractures of the anterior right sixth and seventh ribs. IMPRESSION: 1. Left subclavian central venous port catheter tip at the superior cavoatrial junction. No acute car diopulmonary disease. Reviewed, dictated and finalized at location A. IMPRESSION: 1. Left subclavian central venous port catheter tip at the superior cavoatrial junction. No acute cardiopulmonary disease.
--- OUTSIDE RECORDS SUMMARY | 2025-02-07 03:11 | XMS_ITS | Clinical Summary ---
Author Organization [facility] [address] Address [address] [place] [address] Care Team Providers Care Supervisor Rice Milling Name Role Phone Gia Clark Primary Care Provider [phone] Harry Loredo MD Unavailable [phone] Rachell Mcnulty MD Unavailable [phone] Ramonita Feldman RN Unavailable [phone] Allergies No known active allergies Medications [...] (09/02/2022): Added automatically from request for surgery [id number] Hypertension 02/14/2022 Renal mass 02/14/2022 Encounters Date Type Department Care Team Description 01/24/2025 Telephone [facility] Medical Group Cardiology [address] [place] [address] Harry Loredo MD 11/27/2024 Telephone [facility] Home Care Services [address] [place] [address] Sarah Gannon 11/26/2024 Telephone [facility] Home Care Services [address] [place] [address] Unknown, Notinfile from Last 3 [...] - Td or Tdap) 07/15/2032 07/15/2022 Insurance [facility] [employer] [place] [employer] [place] Care Teams Supervisor Rice Milling Relationship Specialty Start Date End Date Gia Clark PA [address] [place] [address] PCP - General Physician Radiologic Technologist 09/15/22 Harry Loredo MD [address] [place] [address] Consulting Physician Cardiovascular Disease 03/18/24 Rachell Mcnulty MD [address] [facility] [address] [place] [address] Referring Physician Nephrology 06/05/24 Ramonita Feldman, RN [address] [place] [address] Director Of Vital Statistics 06/05/24
--- OUTSIDE RECORDS SUMMARY | 2025-02-07 03:11 | XMS_ITS | Data Portability ---
Author Organization MIRNA ALICIAAhmet Dionic[place] Rea Address [address] [place] [address] Care Team Providers Care Organizational Psychologist Name Role Phone DEMARIO JACOBS Primary Care Provider Assessment Encounter Date Assessment Date Assessment LastModified by Organization Details LastModified Time 08/04/2023 08/04/2023 F/u in 3 months after Nephrology appt. kbarbero Not available 08/04/2023 12:38:27 02/05/2025 02/05/2025 Discussed with patient that he would need to reach out to his insurance in terms of long-term disability and I will provide any supporting documentation that he needs. [email or web address] Not available 02/05/2025 16:43:59 Plan of Treatment Reminders Order Date Submit Date Provider Last Modified By Organization Details Last Modified Time Details Appointments ANY 30 2024 02:00P INGE BARNEY Not available Not available Not available Lab lipid panel, serum or plasma 2024 025 PAULINA [facility], [address], [place], [address], 02/06/2025 09:07:46 HbA1c (hemoglob in A1c), blood 2024 025 PAULINA [facility], [address], [place], [address], 02/06/2025 09:07:48 vitamin D, 25-hydrox y, total, serum 2022 023 PAULINA [facility], [address], [place], [address], 12/20/2022 17:09:37 vitamin B12 + folate, serum or blood 2022 023 [facility], [address], [place], [address], 12/20/2022 17:09:36 pro BNP (pro B-type natriuret ic peptide), serum or plasma 2022 023 [facility], [address], [place], [address], 12/20/2022 13:14:15 CMP, serum or plasma 2022 023 [facility], [address], [place], [address], 12/20/2022 13:11:06 lipid panel, serum 2022 023 [facility], [address], [place], [address], 12/20/2022 13:11:05 CBC w/ auto diff 2022 023 [facility], [address], [place], [address], 12/20/2022 17:09:40 TSH + free T4, serum 2022 023 [facility], [address], [place], [address], 12/20/2022 17:09:35 HbA1c (hemoglob in A1c), blood 2022 023 [email or web address] In-Office Order, Internal Use Only DO Not Attach Compendium DO Not Attach Compendium, Do Not Delete/merge, [id number] 12/19/2022 12:08:18 Referral None recorded. Procedures None recorded. Surgeries None recorded. Imaging US, echocardi ogram, transthor acic, complete, w/ color flow 2022 023 [facility], [address], [place], [address], 11/03/2023 15:21:02 Medication Orders furosemid e 20 mg tablet 2024 025 [facility] #80083, [address], [place], [id number], 02/05/2025 15:15:33 amlodipin e 10 mg tablet 2024 025 [facility] #27192, [address], [place], [id number], 02/05/2025 15:15:35 hydralazi ne 50 mg tablet 2024 025 [facility] #42210, [address], [place], [id number], 02/05/2025 15:15:35 nicotine 21 mg/24 hr daily transderm al patch 2024 025 [facility] #64462, [address], [place], [id number], 12/24/2024 17:04:56 Eliquis 5 mg tablet 2024 025 [facility] #46256, [address], [place], [id number], 12/24/2024 17:18:54 furosemid e 20 mg tablet 2024 025 [facility] #21399, [address], [place], [id number], 12/24/2024 17:18:53 sodium bicarbona te 650 mg tablet 2024 025 [facility] #74041, [address], [place], [id number], 12/24/2024 17:32:20 amlodipin e 10 mg tablet 2024 025 [facility] #42865, [address] [place] [address], [id number], 12/24/2024 17:07:58 hydralazi ne 50 mg tablet 2024 025 [facility] #18921, [address] [place] [address], [id number], 12/24/2024 17:18:53 metoprolo l succinate ER 200 mg tablet,ex tended release 24 hr 2024 [facility] #94894, [address] [place] [address], [id number], 12/24/2024 17:18:54 Breo Ellipta 200 mcg-25 mcg/dose powder for inhalatio n 2024 025 [facility] #85987, [address] [place] [address], [id number], 12/24/2024 17:18:54 atorvasta tin 40 mg tablet 2024 025 [facility] #27444, [address] [place] [address], [id number], 12/24/2024 17:18:54 Patient TargetsNo targets recorded. Patient Instructions Encounter Date Encounter Id Patient Instructions Last Modified By Organization Details Last Modified Time 12/24/2024 [id number] Quitting Tobacco : Care Instructions [email or web address] Not available 12/24/2024 17:04:49 02/05/2025 [id number] A healthy lifestyle: care instructions [email or web address] Not available 02/05/2025 15:14:24 Reason for Referral None Reported. Results Created Date Observation Date Name Description Value Unit Range Abnormal Flag Note LastModifiedBy Organization Detail LastModifiedTime 12/20/19 23 12/19/2022 LIPID PANEL WITH LDL/H DL RATIO cholesterol, total 130.5 mg/dL 140.0- 200.0 below low normal Not Available [facility] ([facility]) [address] [place], [address], 12/20/2022 13:11:05 12/20/19 23 12/19/2022 LIPID PANEL WITH LDL/H DL RATIO triglyceride s 66 mg/dL <=150 Not Available [facility] ([facility]) [address] [place], [address], 12/20/2022 13:11:05 12/20/19 23 12/19/2022 LIPID PANEL WITH LDL/H DL RATIO HDL cholesterol 54.1 mg/dL 40.0-1 00.0 Not Available [facility] ([facility]) [address] [place], [address], 12/20/2022 13:11:05 12/20/19 23 12/19/2022 LIPID PANEL WITH LDL/H DL RATIO VLDL cholesterol cornelio 13.20 mg/dL 5.00-4 0.00 Not Available [facility] ([facility]) [address] [place], [address], 12/20/2022 13:11:05 12/20/19 23 12/19/2022 LIPID PANEL WITH LDL/H DL RATIO LDL chol calc (nih) 62.7 Not Available [facility] ([facility]) [address] [place], [address], 12/20/2022 13:11:05 12/20/19 23 12/19/2022 LIPID PANEL WITH LDL/H DL RATIO LDL/HDL ratio 1.2 Not Available [facility] ([facility]) [address] [place], [address], 12/20/2022 13:11:05 12/20/19 23 12/20/2022 COMP. METAB OLIC PANEL (14) glucose 98 mg/dL 65-99 ANION GP 24.0 mmol/ L N OSMOL 304.0 mOsM/ L H REFER ENCE RANGE : 275.0 -301. 0 Not Available [facility] ([facility]) [address] [place], [address], 12/20/2022 13:11:06 12/20/19 23 12/20/2022 COMP. METAB OLIC PANEL (14) BUN 72 mg/dL 8-26 panic high Not Available [facility] ([facility]) [address] [facility] [place], [address], 12/20/2022 13:11:06 12/20/19 23 12/20/2022 COMP. METAB OLIC PANEL (14) creatinine 5.47 mg/dL 0.50-1 .40 panic high Not Available [facility] ([facility]) [address] [place], [address], 12/20/2022 13:11:06 12/20/19 23 12/20/2022 COMP. METAB OLIC PANEL (14) eGFR 11 mL/mi n/1.7 3 >=60 below low normal Not Available [facility] ([facility]) [address] [place], [address], 12/20/2022 13:11:06 12/20/19 23 12/20/2022 COMP. METAB OLIC PANEL (14) BUN/creatini ne ratio 13.1 Not Available [facility] ([facility]) [address] [place], [address], 12/20/2022 13:11:06 12/20/19 23 12/20/2022 COMP. METAB OLIC PANEL (14) sodium 141.9 mmol/ L 136.0- 144.0 Not Available [facility] ([facility]) [address] [place], [address], 12/20/2022 13:11:06 12/20/19 23 12/20/2022 COMP. METAB OLIC PANEL (14) potassium 5.0 mmol/ L 3.5-5. 3 Not Available [facility] ([facility]) [address] [facility] [place], [address], 12/20/2022 13:11:06 12/20/19 23 12/20/2022 COMP. METAB OLIC PANEL (14) chloride 105 mmol/ l 101-11 1 Not Available [facility] ([facility]) [address] [facility] [place], [address], 12/20/2022 13:11:06 12/20/19 23 12/20/2022 COMP. METAB OLIC PANEL (14) carbon dioxide, total 17.9 mmol/ L 21.0-3 2.0 below low normal Not Available [facility] ([facility]) [address] [facility] [place], [address], 12/20/2022 13:11:06 12/20/19 23 12/20/2022 COMP. METAB OLIC PANEL (14) calcium 9.7 mg/dL 8.2-10 .0 Not Available [facility] ([facility]) [address] [facility] [place], [address], 12/20/2022 13:11:06 12/20/19 23 12/20/2022 COMP. METAB OLIC PANEL (14) protein, total 6.6 g/dL 6.7-8. 2 below low normal Not Available [facility] ([facility]) [address] [facility] [place], [address], 12/20/2022 13:11:06 12/20/19 23 12/20/2022 COMP. METAB OLIC PANEL (14) albumin 4.0 g/dL 3.5-5. 5 Not Available [facility] ([facility]) [address] [facility] [place], [address], 12/20/2022 13:11:06 12/20/19 23 12/20/2022 COMP. METAB OLIC PANEL (14) globulin, total 2.6 g/dL 1.5-4. 5 Not Available [facility] ([facility]) [address] [facility] [place], [address], 12/20/2022 13:11:06 12/20/19 23 12/20/2022 COMP. METAB OLIC PANEL (14) A/G ratio 1.6 Not Available [facility] ([facility]) [address] [facility] [place], [address], 12/20/2022 13:11:06 12/20/19 23 12/20/2022 COMP. METAB OLIC PANEL (14) bilirubin, total 0.3 mg/dL 0.0-1. 2 Not Available [facility] ([facility]) [address] [facility] [place], [address], 12/20/2022 13:11:06 12/20/19 23 12/20/2022 COMP. METAB OLIC PANEL (14) alkaline phosphatase 87.0 IU/L 42.0-1 21.0 Not Available [facility] ([facility]) [address] [facility] [place], [address], 12/20/2022 13:11:06 12/20/19 23 12/20/2022 COMP. METAB OLIC PANEL (14) AST (SGOT) 16.3 U/L 10.0-4 2.0 Not Available [facility] ([facility]) [address] [place], [address], 12/20/2022 13:11:06 12/20/19 23 12/20/2022 COMP. METAB OLIC PANEL (14) ALT (SGPT) 20.7 U/L 10.0-6 0.0 Not Available [facility] ([facility]) [address] [facility] [place], [address], 12/20/2022 13:11:06 12/20/19 23 12/20/2022 TSH+F REE T4 TSH 1.010 uIU/m L 0.450- 4.500 Not Available [facility] ([facility]) [address] [facility], [place], [address], 12/20/2022 17:09:35 12/20/19 23 12/20/2022 TSH+F REE T4 T4,free(dire ct) 1.88 NG/dL 0.82-1 .77 above high normal Not Available [facility] ([facility]) [address] [facility], [place], [address], 12/20/2022 17:09:35 12/20/19 23 12/20/2022 HEMOG LOBIN A1C hemoglobin A1C - % Test not perfo rmed. No laven deepti top tube submi tted. Predi abete s: 5.7 - 6.4 Diabe daniel: >6.4 Glyce david contr ol for adult s with diabe daniel: <7.0 Not Available [facility] ([facility]) [address] [facility], [place], [address], 12/20/2022 17:09:36 12/20/19 23 12/20/2022 VITAM IN [...] Delon ferrer [place]: [facility] Press . 2. Kris emerson MF, Britney ey [place], Bislana off-F errar i MERCHANT, et al. Evalu ation , treat ment, and preve ntion of vitam in D defic iency : an Endoc rine Socie ty clini cornelio pract ice guide line. JCEM. 2010; 96(7) :1911 -30. Not Available [facility] ([facility]) [address] [facility], [place], [address], 12/20/2022 17:09:37 12/20/19 23 12/20/2022 CBC WITH DIFFE RENTI AL/PL ATELE T WBC - x10e3 /uL Test not perfo rmed. No laven deepti top tube submi tted. Not Available [facility] ([facility]) [address] [facility], [place], [address], 12/20/2022 17:09:40 12/20/19 23 12/20/2022 CBC WITH DIFFE RENTI AL/PL ATELE T RBC - Test not perfo rmed Not Available [facility] ([facility]) [address] [facility], [place], [address], 12/20/2022 17:09:40 12/20/19 23 12/20/2022 CBC WITH DIFFE RENTI AL/PL ATELE T hemoglobin - Test not perfo rmed Not Available [facility] ([facility]) [address] [facility], [place], [address], 12/20/2022 17:09:40 12/20/19 23 12/20/2022 CBC WITH DIFFE RENTI AL/PL ATELE T hematocrit - Test not perfo rmed Not Available [facility] ([facility]) [address] [facility], [place], [address], 12/20/2022 17:09:40 12/20/19 23 12/20/2022 CBC WITH DIFFE RENTI AL/PL ATELE T platelets - Test not perfo rmed Not Available [facility] ([facility]) [address] [place], [address], 12/20/2022 17:09:40 12/20/19 23 12/20/2022 CBC WITH DIFFE RENTI AL/PL ATELE T neutrophils - Test not perfo rmed Not Available [facility] ([facility]) [address] [place], [address], 12/20/2022 17:09:40 12/20/19 23 12/20/2022 CBC WITH DIFFE RENTI AL/PL ATELE T lymphs - Test not perfo rmed Not Available [facility] ([facility]) [address] [facility], [place], [address], 12/20/2022 17:09:40 12/20/19 23 12/20/2022 CBC WITH DIFFE RENTI AL/PL ATELE T monocytes - Test not perfo rmed Not Available [facility] ([facility]) [address] [facility], [place], [address], 12/20/2022 17:09:40 12/20/19 23 12/20/2022 CBC WITH DIFFE RENTI AL/PL ATELE T eos - Test not perfo rmed Not Available [facility] ([facility]) [address] [place], [address], 12/20/2022 17:09:40 12/20/19 23 12/20/2022 CBC WITH DIFFE RENTI AL/PL ATELE T lymphs (absolute) - Test not perfo rmed Not Available [facility] ([facility]) [address] [facility], [place], [address], 12/20/2022 17:09:40 12/20/19 23 12/20/2022 CBC WITH DIFFE RENTI AL/PL ATELE T eos (absolute) - Test not perfo rmed Not Available [facility] ([facility]) [address] [place], [address], 12/20/2022 17:09:40 12/20/19 23 12/20/2022 CBC WITH DIFFE RENTI AL/PL ATELE T baso (absolute) - Test not perfo rmed Not Available [facility] ([facility]) [address] [facility], [place], [address], 12/20/2022 17:09:40 12/20/19 23 12/20/2022 VITAM IN B12 AND FOLAT E vitamin B12 635 pg/mL 232-12 45 Not Available [facility] ([facility]) [address] [facility], [place], [address], 12/20/2022 17:09:36 12/20/1912/20/2022 VITAM IN B12 AND FOLAT E folate (folic acid), serum 6.7 NG/mL >3.0 A serum folat e lynnette ntrat ion of less than 3.1 ng/mL is consi dered to repre sent clini cornelio defic iency . Not Available [facility] ([facility]) [address] [facility], [place], [address], 12/20/2022 17:09:36 12/20/1912/20/2022 NT-ID OBNP nt-probnp 4880 pg/mL 0-210 above high [...] enden t 300 pg/mL Not Available [facility] ([facility]) [address] [facility], [place], [address], 12/20/2022 17:09:35 12/20/1912/20/2022 SPECI MEN STATU S REPOR T specimen status report TNP Test not perfo rmed. No laven deepti top tube submi tted. TEST: [id number] Hemog lobin A1c Not Available [facility] ([facility]) [address] [facility], [place], [address], 12/20/2022 17:09:34 12/20/19 23 12/20/2022 SPECI MEN STATU S REPOR T specimen status report TNP No laven deepti top tube submi tted. TEST: [id number] CBC With Diffe renti al/Pl atele t Not Available [facility] ([facility]) [address] [facility], [place], [address], 12/20/2022 13:11:05 12/20/19 23 12/19/2022 HbA1c (hemo globi n A1c), blood HbA1c 5.3 Not Available In-Office Order Internal Use Only DO Not Attach Compendium DO Not Attach Compendium, Do Not Delete/merge, [id number] 12/19/2022 11:44:02 12/20/19 23 12/20/2022 SPECI MEN STATU S REPOR T specimen status report TNP Test not perfo rmed. No laven deepti top tube submi tted. TEST: [id number] CBC With Diffe renti al/Pl atele t Not Available [facility] ([facility]) [address] [facility], [place], [address], 12/20/2022 17:09:39 11/14/19 25 11/14/2024 CBC W Auto Diffe renti al panel - Blood leukocytes [#/volume] in blood 12.8 K/uL low: 4K/uLh igh: 9.8K/u L high WBC 12.8 (H) 4.0 - 9.8 K/uL 11/14 2:15 AM [facility] Not Available Not Available 12/24/2024 17:32:29 11/14/19 25 11/14/2024 CBC W Auto Diffe renti al panel - Blood RBC 2.24 text: 4.50 - 5.40 M/uL low RBC 2.24 (L) 4.50 - 5.40 M/uL 11/14 2:15 AM [facility] Not Available Not Available 12/24/2024 17:32:29 11/14/19 25 11/14/2024 CBC W Auto Diffe renti al panel - Blood hemoglobin 7.8 g/dL low: 13.6g/ dLhigh : 16.5g/ dL low HEMOG LOBIN 7.8 (L) 13.6 - 16.5 g/dL 11/14 2:15 AM [facility] Not Available Not Available 12/24/2024 17:32:29 11/14/19 25 11/14/2024 CBC W Auto Diffe renti al panel - Blood hematocrit [volume fraction] of blood by automated count 24.6 % low: 40%hig h: 48% low HEMAT OCRIT 24.6 (L) 40.0 - 48.0 % 11/14 2:15 AM [facility] Not Available Not Available 12/24/2024 17:32:29 11/14/19 25 11/14/2024 CBC W Auto Diffe renti al panel - Blood MCV 109.8 fL low: 82fLhi gh: 99fL high MCV 109.8 (H) 82.0 - 99.0 fL 11/14 2:15 AM [facility] Not Available Not Available 12/24/2024 17:32:29 11/14/19 25 11/14/2024 CBC W Auto Diffe renti al panel - Blood MCH 34.8 pg low: 27.2pg high: 32.6pg high MCH 34.8 (H) 27.2 - 32.6 pg 11/14 2:15 AM [facility] Not Available Not Available 12/24/2024 17:32:29 11/14/19 25 11/14/2024 CBC W Auto Diffe renti al panel - Blood MCHC 31.7 g/dL low: 31.5g/ dLhigh : 35.5g/ dL MCHC 31.7 31.5 - 35.5 g/dL 11/14 2:15 AM [facility] Not Available Not Available 12/24/2024 17:32:29 11/14/19 25 11/14/2024 CBC W Auto Diffe renti al panel - Blood RDW 15 % low: 11.5%h igh: 14.5% high RDW 15.0 (H) 11.5 - 14.5 % 11/14 2:15 AM [facility] Not Available Not Available 12/24/2024 17:32:29 11/14/19 25 11/14/2024 CBC W Auto Diffe renti al panel - Blood RDW-stdev 60.4 fL low: 37.1fL high: 48.7fL high RDW-S TDEV 60.4 (H) 37.1 - 48.7 fL 11/14 2:15 AM [facility] Not Available Not Available 12/24/2024 17:32:29 11/14/19 25 11/14/2024 CBC W Auto Diffe renti al panel - Blood platelets [#/volume] in blood by automated count 360 K/uL low: 140K/u Lhigh: 350K/u L high PLATE LETS 360 (H) 140 - 350 K/uL 11/14 2:15 AM [facility] Not Available Not Available 12/24/2024 17:32:29 11/14/19 25 11/14/2024 CBC W Auto Diffe renti al panel - Blood MPV 10.2 fL low: 9.3fLh igh: 12.4fL MPV 10.2 9.3 - 12.4 fL 11/14 2:15 AM [facility] Not Available Not Available 12/24/2024 17:32:29 11/14/19 25 11/14/2024 CBC W Auto Diffe renti al panel - Blood neutrophils 78 % NEUTR OPHIL S 78 % 11/14 2:15 AM [facility] Not Available Not Available 12/24/2024 17:32:29 11/14/19 25 11/14/2024 CBC W Auto Diffe renti al panel - Blood lymphocytes/ 100 leukocytes in blood by automated count 10 % LYMPH OCYTE S 10 % 11/14 2:15 AM 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[employer] [facility] Not Available Not Available 12/24/2024 17:32:29 11/14/19 25 11/14/2024 CBC W Auto Diffe renti al panel - Blood monocytes 10 % MONOC YTES 10 % 11/14 2:15 AM 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[employer] [facility] Not Available Not Available 12/24/2024 17:32:29 11/14/19 25 11/14/2024 CBC W Auto Diffe renti al panel - Blood eosinophils 1 % EOSIN OPHIL S 1 % 11/14 2:15 AM [facility] Not Available Not Available 12/24/2024 17:32:29 11/14/19 25 11/14/2024 CBC W Auto Diffe renti al panel - Blood basophils 1 % BASOP HILS 1 % 11/14 [facility] Not Available 12/24/2024 17:32:29 11/14/19 25 11/14/2024 CBC W Auto Diffe renti al panel - Blood immature granulocytes 1 % IMMAT URE GRANU LOCYT ES 1 % 11/14 2:[facility] Not [facility] Not Available 12/24/2024 17:32:29 11/14/19 25 11/14/2024 CBC W Auto Diffe renti al panel - Blood neutrophils [#/volume] in blood by automated count 9.97 K/uL low: 1.9K/u Lhigh: 7K/uL high NEUTR OPHIL ABSOL [place] 9.97 (H) 1.90 - 7.00 K/uL 11/14 2:15 AM [facility] Not Available Not Available 12/24/2024 17:32:29 11/14/19 25 11/14/2024 CBC W Auto Diffe renti al panel - Blood lymphocyte absolute 1.21 K/uL low: 0.7K/u Lhigh: 4.5K/u L LYMPH OCYTE ABSOL [place] 1.21 0.70 - 4.50 K/uL 11/14 2:15 AM 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[employer] [facility] Not Available Not Available 12/24/2024 17:32:29 11/14/19 25 11/14/2024 CBC W Auto Diffe renti al panel - Blood monocyte absolute 1.25 K/uL low: 0.1K/u Lhigh: 1.3K/u L MONOC YTE ABSOL [place] 1.25 0.10 - 1.30 K/uL 11/14 2:15 AM [facility] Not Available Not Available 12/24/2024 17:32:29 11/14/19 25 11/14/2024 CBC W Auto Diffe renti al panel - Blood eosinophil absolute 0.17 K/uL low: 0K/uLh igh: 0.7K/u L EOSIN OPHIL ABSOL [place] 0.17 0.00 - 0.70 K/uL 11/14 2:15 AM [facility] Not Available Not Available 12/24/2024 17:32:29 11/14/19 25 11/14/2024 CBC W Auto Diffe renti al panel - Blood basophils absolute 0.06 K/uL low: 0K/uLh igh: 0.2K/u L BASOP HILS ABSOL [place] 0.06 0.00 - 0.20 K/uL 11/14 2:15 AM [facility] Not Available Not Available 12/24/2024 17:32:29 11/14/19 25 11/14/2024 CBC W Auto Diffe renti al panel - Blood immature granulocytes absolute 0.11 K/uL low: 0K/uLh igh: 0.03K/ uL high IMMAT URE GRANU LOCYT ES ABSOL [place] 0.11 (H) 0.00 - 0.03 K/uL 11/14 2:15 AM [facility] Not Available Not Available 12/24/2024 [...] - 145 mmol/ L 11/14 2:44 AM 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[employer] [facility] Not Available Not Available 12/24/2024 17:32:07 11/14/19 25 11/14/2024 Compr ehens franc[place] metab olic 1999 panel - Serum or Plasm a potassium [moles/volum e] in serum or plasma 4.2 mmol/ L low: 3.4mmo l/Lhig h: 5.1mmo l/L POTAS SIUM 4.2 3.4 - 5.1 mmol/ L 11/14 2:44 AM 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[employer] [facility] Not Available Not Available 12/24/2024 17:32:07 11/14/19 25 11/14/2024 Compr ehens francisco metab olic 1999 panel - Serum or Plasm a chloride 91 mmol/ L low: 98mmol /Lhigh : 107mmo l/L low CHLOR BURT 91 (L) 98 - 107 mmol/ L 11/14 2:44 AM 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[employer] [facility] Not Available Not Available 12/24/2024 17:32:07 11/14/19 25 11/14/2024 Compr ehens francisco metab olic 1999 panel - Serum or Plasm a carbon dioxide, total [moles/volum e] in serum or plasma 25 mmol/ L low: 22mmol /Lhigh : 29mmol /L CO2 25 22 - 29 mmol/ L 11/14 2:44 AM 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[employer] [facility] Not Available Not Available 12/24/2024 17:32:07 11/14/19 25 11/14/2024 Compr ehens [place] metab olic 1999 panel - Serum or Plasm a calcium 9.3 mg/dL low: 8.6mg/ dLhigh : 10.4mg /dL CALCI UM 9.3 8.6 - 10.4 mg/dL 11/14 2:44 AM [employer] [facility] Not [facility] Not Available 12/24/2024 17:32:07 11/14/19 25 11/14/2024 Compr ehens [place] metab olic 1999 panel - Serum or Plasm a BUN 44 mg/dL low: 6mg/dL high: 20mg/d L high BUN 44 (H) 6 - 20 mg/dL 11/14 2:44 AM [facility] Not Available Not Available 12/24/2024 17:32:07 11/14/19 25 11/14/2024 Compr ens francisco metab olic 1999 panel - Serum or Plasm a creatinine [mass/volume ] in serum or plasma 7.14 mg/dL low: 0.67mg /dLhig h: 1.17mg /dL high CREAT ININE 7.14 (H) 0.67 - 1.17 mg/dL 11/14 2:44 AM [facility] Not Available Not Available 12/24/2024 17:32:07 11/14/19 25 11/14/2024 Compr ehens [place] metab olic 1999 panel - Serum or Plasm a glucose [mass/volume ] in serum or plasma 100 mg/dL low: 74mg/d Lhigh: 99mg/d L high GLUCO SE 100 (H) 74 - 99 mg/dL 11/14 2:44 AM [facility] Not Available 12/24/2024 17:32:07 11/14/19 25 11/14/2024 Compr ehens francisco metab olic 1999 panel - Serum or Plasm a total protein 6.1 g/dL low: 6.3g/d Lhigh: 8.7g/d L low TOTAL PROTE IN 6.1 (L) 6.3 - 8.7 g/dL 11/14 2:44 AM [facility] Not Available Not Available 12/24/2024 17:32:07 11/14/19 25 11/14/2024 Compr ehens francisco metab olic 1999 panel - Serum or Plasm a albumin 3.1 g/dL low: 3.5g/d Lhigh: 5.2g/d L low ALBUM IN 3.1 (L) 3.5 - 5.2 g/dL 11/14 2:44 AM [facility] Not Available Not Available 12/24/2024 17:32:07 11/14/19 25 11/14/2024 Compr ehens francisco metab olic 1999 panel - Serum or Plasm a bilirubin total low: 0.2mg/ dLhigh : 1.1mg/ dL low BILIR UBIN TOTAL <0.2 (L) 0.2 - 1.1 mg/dL 11/14 2:44 AM [facility] Not Available Not Available 12/24/2024 17:32:07 11/14/19 25 11/14/2024 Compr ehens francisco metab olic 1999 panel - Serum or Plasm a alkaline phosphatase 67 U/L low: 40U/Lh igh: 150U/L ALKAL INE PHOSP HATAS E 67 40 - 150 U/L 11/14 2:44 AM [facility] Not Available Not Available 12/24/2024 17:32:07 11/14/19 25 11/14/2024 Compr ehens francisco metab olic 1999 panel - Serum or Plasm a AST 20 U/L low: 0U/Lhi gh: 41U/L AST 20 0 - 41 U/L 11/14 2:44 AM [facility] Not Available Not Available 12/24/2024 17:32:07 11/14/19 25 11/14/2024 Compr ehens francisco metab olic 1999 panel - Serum or Plasm a alanine aminotransfe rase [enzymatic activity/vol ume] in blood 17 U/L low: 0U/Lhi gh: 41U/L ALT 17 0 - 41 U/L 11/14 2:44 AM [facility] Not Available Not Available 12/24/2024 17:32:07 11/14/19 25 11/14/2024 Compr ehens francisco metab olic 1999 panel - Serum or Plasm a glomerular filtration rate/1.73 sq M.predicted [volume rate/area] in serum, plasma or blood by creatinine-b ased formula (CKD-epi 2020) 8 text: >=60 mL/min /1.73 sq meter low GFR 8 (L) >=60 mL/mi n/1.7 3 sq meter 11/14 2:44 AM [facility] Not Available Not Available 12/24/2024 17:32:07 11/14/19 25 11/14/2024 Compr ehens francisco metab olic 1999 panel - Serum or Plasm a anion gap 13 mmol/ L low: 8mmol/ Lhigh: 16mmol /L ANION GAP 13 8 - 16 mmol/ L 11/14 2:44 AM [facility] Not Available Not Available 12/24/2024 [...] RE No growt h 11/20 9:03 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[employer] [facility] Not Available Not Available 12/24/2024 17:32:07 11/15/19 25 11/20/2024 Bacte shaneka ident ified in Blood by Cultu re interpretati on and review of laboratory results Normal Not Available Not Available 12/14 17:32:07 11/15/19 25 11/20/2024 Bacte shaneka ident ified in Blood by Cultu re bacteria identified in specimen by culture No growth BLOOD CULTU RE No growt h 11/20 9:03 PM [facility] Not Available Not Available 12/24/2024 17:32:29 11/15/19 25 11/20/2024 Bacte shaneka ident ified in Blood by Shunu re interpretati on and review of laboratory results Normal Not Available Not Available 12/14 17:32:29 11/15/19 25 11/15/2024 Renal funct ion 1999 panel - Serum or Plasm a sodium [moles/volum e] in serum or plasma 130 mmol/ L low: 136mmo l/Lhig h: 145mmo l/L low SODIU M 130 (L) 136 - 145 mmol/ L 11/15 2:27 AM [facility] Not Available 12/24/2024 17:32:29 11/15/19 25 11/15/2024 Renal funct ion 1999 panel - Serum or Plasm a potassium [moles/volum e] in serum or plasma 4.3 mmol/ L low: 3.4mmo l/Lhig h: 5.1mmo l/L POTAS SIUM 4.3 3.4 - 5.1 mmol/ L 11/15 2:27 AM [facility] Not [facility] Not Available 12/24/2024 17:32:29 11/15/19 25 11/15/2024 Renal funct ion 1999 panel - Serum or Plasm a chloride 94 mmol/ L low: 98mmol /Lhigh : 107mmo l/L low CHLOR BURT 94 (L) 98 - 107 mmol/ L 11/15 2:27 AM [facility] Not [facility] Not Available 12/24/2024 17:32:29 11/15/19 25 11/15/2024 Renal funct ion 1999 panel - Serum or Plasm a carbon dioxide, total [moles/volum e] in serum or plasma 20 mmol/ L low: 22mmol /Lhigh : 29mmol /L low CO2 20 (L) 22 - 29 mmol/ L 11/15 2:27 AM [facility] Not [facility] Not Available 12/24/2024 17:32:29 11/15/19 25 11/15/2024 Renal funct ion 1999 panel - Serum or Plasm a calcium 9.3 mg/dL low: 8.6mg/ dLhigh : 10.4mg /dL CALCI UM 9.3 8.6 - 10.4 mg/dL 11/15 2:27 AM [address] [facility] [facility] Not Available Not Available 12/24/2024 17:32:29 11/15/19 25 11/15/2024 Renal funct ion 1999 panel - Serum or Plasm a BUN 51 mg/dL low: 6mg/dL high: 20mg/d L high BUN 51 (H) 6 - 20 mg/dL 11/15 2:27 AM [facility] Not [facility] Not Available 12/24/2024 17:32:29 11/15/19 25 11/15/2024 Renal funct ion 1999 panel - Serum or Plasm a creatinine [mass/volume ] in serum or plasma 8.68 mg/dL low: 0.67mg /dLhig h: 1.17mg /dL high CREAT ININE 8.68 (H) 0.67 - 1.17 mg/dL 11/15 2:27 AM [address] [facility] Not Available Not Available 12/24/2024 17:32:29 11/15/19 25 11/15/2024 Renal funct ion 1999 panel - Serum or Plasm a glucose [mass/volume ] in serum or plasma 103 mg/dL low: 74mg/d Lhigh: 99mg/d L high GLUCO SE 103 (H) 74 - 99 mg/dL 11/15 2:27 AM [address] [facility] Not Available Not Available 12/24/2024 17:32:29 11/15/19 25 11/15/2024 Renal funct ion 1999 panel - Serum or Plasm a albumin 2.9 g/dL low: 3.5g/d Lhigh: 5.2g/d L low ALBUM IN 2.9 (L) 3.5 - 5.2 g/dL 11/15 2:27 AM [facility] Not Available Not Available 12/24/2024 17:32:29 11/15/19 25 11/15/2024 Renal funct ion 1999 panel - Serum or Plasm a phosphorus 4.4 mg/dL low: 2.5mg/ dLhigh : 4.5mg/ dL PHOSP HORUS 4.4 2.5 - 4.5 mg/dL 11/15 2:27 AM [facility] Not Available Not Available 12/24/2024 17:32:29 11/15/19 25 11/15/2024 Renal funct ion 1999 panel - Serum or Plasm a glomerular filtration rate/1.73 sq M.predicted [volume rate/area] in serum, plasma or blood by creatinine-b ased formula (CKD-epi 2020) 6 text: >=60 mL/min /1.73 sq meter low GFR 6 (L) >=60 mL/mi n/1.7 3 sq meter 11/15 2:27 AM [facility] Not Available Not Available 12/24/2024 17:32:29 11/15/19 25 11/15/2024 Renal funct ion 2000 panel - Serum or Plasm a anion gap 16 mmol/ L low: 8mmol/ Lhigh: 16mmol /L ANION GAP 16 8 - 16 mmol/ L 11/15 2:27 AM [facility] Not Available Not Available 12/24/2024 17:32:29 11/15/19 25 11/15/2024 Renal funct ion 2000 panel - Serum or Plasm a interpretati on and review of laboratory results Abnorm al Not Available Not Available 17:32:29 11/15/19 25 11/15/2024 CBC W Auto Diffe renti al panel - Blood leukocytes [#/volume] in blood 11.5 K/uL low: 4K/uLh igh: 9.8K/u L high WBC 11.5 (H) 4.0 - 9.8 K/uL 11/15 2:35 AM [facility] Not Available Not Available 12/24/2024 17:32:29 11/15/19 25 11/15/2024 CBC W Auto Diffe renti al panel - Blood RBC 2.23 text: 4.50 - 5.40 M/uL low RBC 2.23 (L) 4.50 - 5.40 M/uL 11/15 2:35 AM [facility] Not [facility] Not Available 12/24/2024 17:32:29 11/15/19 25 11/15/2024 CBC W Auto Diffe renti al panel - Blood hemoglobin 7.6 g/dL low: 13.6g/ dLhigh : 16.5g/ dL low HEMOG LOBIN 7.6 (L) 13.6 - 16.5 g/dL 11/15 2:35 AM [facility] Not [facility] Not Available 12/24/2024 17:32:29 11/15/19 25 11/15/2024 CBC W Auto Diffe renti al panel - Blood hematocrit [volume fraction] of blood by automated count 23.9 % low: 40%hig h: 48% low HEMAT OCRIT 23.9 (L) 40.0 - 48.0 % 11/15 2:35 AM [facility] Not Available Not Available 12/24/2024 17:32:29 11/15/19 25 11/15/2024 CBC W Auto Diffe renti al panel - Blood MCV 107.2 fL low: 82fLhi gh: 99fL high MCV 107.2 (H) 82.0 - 99.0 fL 11/15 2:35 AM [facility] Not Available 12/24/2024 17:32:29 11/15/19 25 11/15/2024 CBC W Auto Diffe renti al panel - Blood MCH 34.1 pg low: 27.2pg high: 32.6pg high MCH 34.1 (H) 27.2 - 32.6 pg 11/15 2:35 AM [facility] Not [facility] Not Available 12/24/2024 17:32:29 11/15/19 25 11/15/2024 CBC W Auto Diffe renti al panel - Blood MCHC 31.8 g/dL low: 31.5g/ dLhigh : 35.5g/ dL MCHC 31.8 31.5 - 35.5 g/dL 11/15 2:35 AM [facility] Not [facility] Not Available 12/24/2024 17:32:29 11/15/19 25 11/15/2024 CBC W Auto Diffe renti al panel - Blood RDW 14.9 % low: 11.5%h igh: 14.5% high RDW 14.9 (H) 11.5 - 14.5 % 11/15 2:35 AM [facility] Not Available Not Available 12/24/2024 17:32:29 11/15/19 25 11/15/2024 CBC W Auto Diffe renti al panel - Blood RDW-stdev 58.8 fL low: 37.1fL high: 48.7fL high RDW-S TDEV 58.8 (H) 37.1 - 48.7 fL 11/15 2:35 AM [facility] Not Available Not Available 12/24/2024 17:32:29 11/15/19 25 11/15/2024 CBC W Auto Diffe renti al panel - Blood platelets [#/volume] in blood by automated count 391 K/uL low: 140K/u Lhigh: 350K/u L high PLATE LETS 391 (H) 140 - 350 K/uL 11/15 2:35 AM [facility] Not Available Not Available 12/24/2024 17:32:29 11/15/19 25 11/15/2024 CBC W Auto Diffe renti al panel - Blood MPV 9.8 fL low: 9.3fLh igh: 12.4fL MPV 9.8 9.3 - 12.4 fL 11/15 2:35 AM [facility] Not Available Not Available 12/24/2024 17:32:29 11/15/19 25 11/15/2024 CBC W Auto Diffe renti al panel - Blood neutrophils 81 % NEUTR OPHIL S 81 % 11/15 2:35 AM [facility] Not Available Not Available 12/24/2024 17:32:29 11/15/19 25 11/15/2024 CBC W Auto Diffe renti al panel - Blood lymphocytes/ 100 leukocytes in blood by automated count 7 % LYMPH OCYTE S 7 % 11/15 2:35 [facility] Not Available 12/24/2024 17:32:29 11/15/19 25 11/15/2024 CBC W Auto Diffe renti al panel - Blood monocytes 8 % MONOC YTES 8 % 11/15 2:35 [facility] Not Available 12/24/2024 17:32:29 11/15/19 25 11/15/2024 CBC W Auto Diffe renti al panel - Blood eosinophils 2 % EOSIN OPHIL S 2 % 11/15 2:35 AM 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 Not Available Not Available 12/24/2024 17:32:29 11/15/19 25 11/15/2024 CBC W Auto Diffe renti al panel - Blood basophils 1 % BASOP HILS 1 % 11/15 2:35 AM [facility] Not [facility] Not Available 12/24/2024 17:32:29 11/15/19 25 11/15/2024 CBC W Auto Diffe renti al panel - Blood immature granulocytes 1 % IMMAT URE GRANU LOCYT ES 1 % 11/15 2:35 AM [facility] Not [facility] Not Available 12/24/2024 17:32:29 11/15/19 25 11/15/2024 CBC W Auto Diffe renti al panel - Blood neutrophils [#/volume] in blood by automated count 9.37 K/uL low: 1.9K/u Lhigh: 7K/uL high NEUTR OPHIL ABSOL [place] 9.37 (H) 1.90 - 7.00 K/uL 11/15 2:35 AM [facility] Not Available Not Available 12/24/2024 17:32:29 11/15/19 25 11/15/2024 CBC W Auto Diffe renti al panel - Blood lymphocyte absolute 0.82 K/uL low: 0.7K/u Lhigh: 4.5K/u L LYMPH OCYTE ABSOL [place] 0.82 0.70 - 4.50 K/uL 11/15 2:35 AM [facility] Not [facility] Not Available 12/24/2024 17:32:29 11/15/19 25 11/15/2024 CBC W Auto Diffe renti al panel - Blood monocyte absolute 0.94 K/uL low: 0.1K/u Lhigh: 1.3K/u L MONOC YTE ABSOL [place] 0.94 0.10 - 1.30 K/uL 11/15 2:[address] [employer] [facility] Not Available Not Available 12/24/2024 17:32:29 11/15/19 25 11/15/2024 CBC W Auto Diffe renti al panel - Blood eosinophil absolute 0.23 K/uL low: 0K/uLh igh: 0.7K/u L EOSIN OPHIL ABSOL [place] 0.23 0.00 - 0.70 K/uL 11/15 2:[address] [employer] [facility] Not Available Not Available 12/24/2024 17:32:29 11/15/19 25 11/15/2024 CBC W Auto Diffe renti al panel - Blood basophils absolute 0.07 K/uL low: 0K/uLh igh: 0.2K/u L BASOP HILS ABSOL [place] 0.07 0.00 - 0.20 K/uL 11/15 2:35 AM [facility] Not [facility] Not Available 12/24/2024 17:32:29 11/15/19 25 11/15/2024 CBC W Auto Diffe renti al panel - Blood immature granulocytes absolute 0.09 K/uL low: 0K/uLh igh: 0.03K/ uL high IMMAT URE GRANU LOCYT ES ABSOL [place] 0.09 (H) 0.00 - 0.03 K/uL 11/15 2:35 AM 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[employer] [facility] Not Available Not Available 12/24/2024 [...] - 145 mmol/ L 11/16 7:04 AM [facility] Not Available Not Available 12/24/2024 17:32:29 11/16/19 25 11/16/2024 Renal funct ion 1999 panel - Serum or Plasm a potassium [moles/volum e] in serum or plasma 4.3 mmol/ L low: 3.4mmo l/Lhig h: 5.1mmo l/L POTAS SIUM 4.3 3.4 - 5.1 mmol/ L 11/16 7:04 AM [facility] Not Available Not Available 12/24/2024 17:32:29 11/16/19 25 11/16/2024 Renal funct ion 1999 panel - Serum or Plasm a chloride 100 mmol/ L low: 98mmol /Lhigh : 107mmo l/L CHLOR BURT 100 98 - 107 mmol/ L 11/16 7:04 AM [facility] Not [facility] Not Available 12/24/2024 17:32:29 11/16/19 25 11/16/2024 Renal funct ion 1999 panel - Serum or Plasm a carbon dioxide, total [moles/volum e] in serum or plasma 22 mmol/ L low: 22mmol /Lhigh : 29mmol /L CO2 22 22 - 29 mmol/ L 11/16 7:04 AM [facility] Not [facility] Not Available 12/24/2024 17:32:29 11/16/19 25 11/16/2024 Renal funct ion 1999 panel - Serum or Plasm a calcium 9.5 mg/dL low: 8.6mg/ dLhigh : 10.4mg /dL CALCI UM 9.5 8.6 - 10.4 mg/dL 11/16 7:04 AM [facility] Not Available Not Available 12/24/2024 17:32:29 11/16/19 25 11/16/2024 Renal funct ion 1999 panel - Serum or Plasm a BUN 31 mg/dL low: 6mg/dL high: 20mg/d L high BUN 31 (H) 6 - 20 mg/dL 11/16 7:04 AM [facility] Not Available Not Available 12/24/2024 17:32:29 11/16/19 25 11/16/2024 Renal funct ion 1999 panel - Serum or Plasm a creatinine [mass/volume ] in serum or plasma 5.56 mg/dL low: 0.67mg /dLhig h: 1.17mg /dL high CREAT ININE 5.56 (H) 0.67 - 1.17 mg/dL 11/16 7:04 AM [facility] Not [facility] Not Available 12/24/2024 17:32:29 11/16/19 25 11/16/2024 Renal funct ion 1999 panel - Serum or Plasm a glucose [mass/volume ] in serum or plasma 98 mg/dL low: 74mg/d Lhigh: 99mg/d L GLUCO SE 98 74 - 99 mg/dL 11/16 7:04 AM [facility] [employer] [facility] Not Available Not Available 12/24/2024 17:32:29 11/16/19 25 11/16/2024 Renal funct ion 1999 panel - Serum or Plasm a albumin 3 g/dL low: 3.5g/d Lhigh: 5.2g/d L low ALBUM IN 3.0 (L) 3.5 - 5.2 g/dL 11/16 7:04 AM [facility] Not Available Not Available 12/24/2024 17:32:29 11/16/19 25 11/16/2024 Renal funct ion 1999 panel - Serum or Plasm a phosphorus 3.7 mg/dL low: 2.5mg/ dLhigh : 4.5mg/ dL PHOSP HORUS 3.7 2.5 - 4.5 mg/dL 11/16 7:04 AM [facility] Not Available Not Available 12/24/2024 17:32:29 11/16/19 25 11/16/2024 Renal funct ion 1999 panel - Serum or Plasm a glomerular filtration rate/1.73 sq M.predicted [volume rate/area] in serum, plasma or blood by creatinine-b ased formula (CKD-epi 2020) 11 text: >=60 mL/min /1.73 sq meter low GFR 11 (L) >=60 mL/mi n/1.7 3 sq meter 11/16 7:04 AM [employer] [facility] Not Available Not Available 12/24/2024 17:32:29 11/16/19 25 11/16/2024 Renal funct ion 1999 panel - Serum or Plasm a anion gap 14 mmol/ L low: 8mmol/ Lhigh: 16mmol /L ANION GAP 14 8 - 16 mmol/ L 11/16 7:04 AM [facility] Not [facility] Not Available 12/24/2024 [...] - 145 mmol/ L 11/17 11:05 AM [facility] Not Available Not Available 12/24/2024 17:32:29 11/17/19 25 11/17/2024 Renal funct ion 1999 panel - Serum or Plasm a potassium [moles/volum e] in serum or plasma 4.6 mmol/ L low: 3.4mmo l/Lhig h: 5.1mmo l/L POTAS SIUM 4.6 3.4 - 5.1 mmol/ L 11/17 11:05 AM [facility] Not Available Not Available 12/24/2024 17:32:29 11/17/19 25 11/17/2024 Renal funct ion 1999 panel - Serum or Plasm a chloride 98 mmol/ L low: 98mmol /Lhigh : 107mmo l/L CHLOR BURT 98 98 - 107 mmol/ L 11/17 11:05 AM [facility] Not Available Not Available 12/24/2024 17:32:29 11/17/19 25 11/17/2024 Renal funct ion 1999 panel - Serum or Plasm a carbon dioxide, total [moles/volum e] in serum or plasma 18 mmol/ L low: 22mmol /Lhigh : 29mmol /L low CO2 18 (L) 22 - 29 mmol/ L 11/17 11:05 AM [facility] Not Available Not Available 12/24/2024 17:32:29 11/17/19 25 11/17/2024 Renal funct ion 1999 panel - Serum or Plasm a calcium 9.7 mg/dL low: 8.6mg/ dLhigh : 10.4mg /dL CALCI UM 9.7 8.6 - 10.4 mg/dL 11/17 11:05 AM [address] [employer] [facility] Not Available Not Available 12/24/2024 17:32:29 11/17/19 25 11/17/2024 Renal funct ion 1999 panel - Serum or Plasm a BUN 31 mg/dL low: 6mg/dL high: 20mg/d L high BUN 31 (H) 6 - 20 mg/dL 11/17 11:05 AM [facility] Not [facility] Not Available 12/24/2024 17:32:29 11/17/19 25 11/17/2024 Renal funct ion 1999 panel - Serum or Plasm a creatinine [mass/volume ] in serum or plasma 5.92 mg/dL low: 0.67mg /dLhig h: 1.17mg /dL high CREAT ININE 5.92 (H) 0.67 - 1.17 mg/dL 11/17 11:05 AM [facility] Not Available Not Available 12/24/2024 17:32:29 11/17/19 25 11/17/2024 Renal funct ion 1999 panel - Serum or Plasm a glucose [mass/volume ] in serum or plasma 102 mg/dL low: 74mg/d Lhigh: 99mg/d L high GLUCO SE 102 (H) 74 - 99 mg/dL 11/17 11:05 AM [facility] Not Available Not Available 12/24/2024 17:32:29 11/17/19 25 11/17/2024 Renal funct ion 1999 panel - Serum or Plasm a albumin 3 g/dL low: 3.5g/d Lhigh: 5.2g/d L low ALBUM IN 3.0 (L) 3.5 - 5.2 g/dL 11/17 11:05 AM [facility] Not Available Not Available 12/24/2024 17:32:29 11/17/19 25 11/17/2024 Renal funct ion 1999 panel - Serum or Plasm a phosphorus 4 mg/dL low: 2.5mg/ dLhigh : 4.5mg/ dL PHOSP HORUS 4.0 2.5 - 4.5 mg/dL 11/17 11:05 AM [facility] Not Available Not Available 12/24/2024 17:32:29 11/17/19 25 11/17/2024 Renal funct ion 1999 panel - Serum or Plasm a glomerular filtration rate/1.73 sq M.predicted [volume rate/area] in serum, plasma or blood by creatinine-b ased formula (CKD-epi 2020) 10 text: >=60 mL/min /1.73 sq meter low GFR 10 (L) >=60 mL/mi n/1.7 3 sq meter 11/17 11:05 AM [facility] Not Available Not Available 12/24/2024 17:32:29 11/17/19 25 11/17/2024 Renal funct ion 1999 panel - Serum or Plasm a anion gap 17 mmol/ L low: 8mmol/ Lhigh: 16mmol /L high ANION GAP 17 (H) 8 - 16 mmol/ L 11/17 11:05 AM [facility] Not Available Not Available 12/24/2024 17:32:29 11/17/19 25 11/17/2024 Renal funct ion 2000 panel - Serum or Plasm a interpretati on and review of laboratory results Abnorm al Not Available Not Available 17:32:29 11/17/19 25 11/17/2024 CBC W Auto Diffe renti al panel - Blood leukocytes [#/volume] in blood 8.1 K/uL low: 4K/uLh igh: 9.8K/u L WBC 8.1 4.0 - 9.8 K/uL 11/17 10:37 AM [facility] Not Available Not Available 12/24/2024 17:32:29 11/17/19 25 11/17/2024 CBC W Auto Diffe renti al panel - Blood RBC 2.37 text: 4.50 - 5.40 M/uL low RBC 2.37 (L) 4.50 - 5.40 M/uL 11/17 10:37 AM [employer] [facility] Not Available Not Available 12/24/2024 17:32:29 11/17/19 25 11/17/2024 CBC W Auto Diffe nathanti al panel - Blood hemoglobin 8.1 g/dL low: 13.6g/ dLhigh : 16.5g/ dL low HEMOG LOBIN 8.1 (L) 13.6 - 16.5 g/dL 11/17 10:37 AM [employer] [facility] [facility] Not Available Not Available 12/24/2024 17:32:29 11/17/1911/17/2024 CBC W Auto Diffe demetrius al panel - Blood hematocrit [volume fraction] of blood by automated count 26.3 % low: 40%hig h: 48% low HEMAT OCRIT 26.3 (L) 40.0 - 48.0 % 11/17 10:37 AM [facility] [facility] Not Available Not Available 12/24/2024 17:32:29 11/17/19 25 11/17/2024 CBC W Auto Diffe demetrius al panel - Blood MCV 111 fL low: 82fLhi gh: 99fL high MCV 111.0 (H) 82.0 - 99.0 fL 11/17 10:37 AM [facility] [facility] Not [facility] Not Available 12/24/2024 17:32:29 11/17/19 25 11/17/2024 CBC W Auto Diffe nathanti al panel - Blood MCH 34.2 pg low: 27.2pg high: 32.6pg high MCH 34.2 (H) 27.2 - 32.6 pg 11/17 10:37 AM [facility] Not Available Not Available 12/24/2024 17:32:29 11/17/19 25 11/17/2024 CBC W Auto Diffe demetrius al panel - Blood MCHC 30.8 g/dL low: 31.5g/ dLhigh : 35.5g/ dL low MCHC 30.8 (L) 31.5 - 35.5 g/dL 11/17 10:37 AM [facility] Not Available 12/24/2024 17:32:29 11/17/19 25 11/17/2024 CBC W Auto Diffe renti al panel - Blood RDW 15.3 % low: 11.5%h igh: 14.5% high RDW 15.3 (H) 11.5 - 14.5 % 11/17 10:37 AM [facility] Not Available Not Available 12/24/2024 17:32:29 11/17/19 25 11/17/2024 CBC W Auto Diffe renti al panel - Blood RDW-stdev 61.9 fL low: 37.1fL high: 48.7fL high RDW-S TDEV 61.9 (H) 37.1 - 48.7 fL 11/17 10:37 AM [facility] Not Available Not Available 12/24/2024 17:32:29 11/17/19 25 11/17/2024 CBC W Auto Diffe renti al panel - Blood platelets [#/volume] in blood by automated count 395 K/uL low: 140K/u Lhigh: 350K/u L high PLATE LETS 395 (H) 140 - 350 K/uL 11/17 10:37 AM [facility] Not Available Not Available 12/24/2024 17:32:29 11/17/19 25 11/17/2024 CBC W Auto Diffe renti al panel - Blood MPV 9.7 fL low: 9.3fLh igh: 12.4fL MPV 9.7 9.3 - 12.4 fL 11/17 10:37 AM [facility] Not Available Not Available 12/24/2024 17:32:29 11/17/19 25 11/17/2024 CBC W Auto Diffe renti al panel - Blood neutrophils 78 % NEUTR OPHIL S 78 % 11/17 10:37 AM [facility] Not Available Not Available 12/24/2024 17:32:29 11/17/19 25 11/17/2024 CBC W Auto Diffe renti al panel - Blood lymphocytes/ 100 leukocytes in blood by automated count 9 % LYMPH OCYTE S 9 % 11/17 10:37 AM [facility] Not Available Not Available 12/24/2024 17:32:29 11/17/19 25 11/17/2024 CBC W Auto Diffe renti al panel - Blood monocytes 10 % MONOC YTES 10 % 11/17 10:37 AM [facility] Not Available Not Available 12/24/2024 17:32:29 11/17/19 25 11/17/2024 CBC W Auto Diffe renti al panel - Blood eosinophils 2 % EOSIN OPHIL S 2 % 11/17 10:37 AM [facility] Not Available Not Available 12/24/2024 17:32:29 11/17/19 25 11/17/2024 CBC W Auto Diffe renti al panel - Blood basophils 1 % BASOP HILS 1 % 11/17 10:37 AM [facility] [facility] Not Available Not Available 12/24/2024 17:32:29 11/17/19 25 11/17/2024 CBC W Auto Diffe renti al panel - Blood immature granulocytes 1 % IMMAT URE GRANU LOCYT ES 1 % 11/17 10:37 AM [facility] Not Available Not Available 12/24/2024 17:32:29 11/17/19 25 11/17/2024 CBC W Auto Diffe renti al panel - Blood neutrophils [#/volume] in blood by automated count 6.29 K/uL low: 1.9K/u Lhigh: 7K/uL NEUTR OPHIL ABSOL [place] 6.29 1.90 - 7.00 K/uL 11/17 10:37 AM [facility] Not Available Not Available 12/24/2024 17:32:29 02/02/20 25 11/17/2024 CBC W Auto Diffe renti al panel - Blood lymphocyte absolute 0.7 K/uL low: 0.7K/u Lhigh: 4.5K/u L LYMPH OCYTE ABSOL [place] 0.70 0.70 - 4.50 K/uL 11/17 10:37 AM 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 Not Available 12/24/2024 17:32:29 11/17/19 25 11/17/2024 CBC W Auto Diffe renti al panel - Blood monocyte absolute 0.84 K/uL low: 0.1K/u Lhigh: 1.3K/u L MONOC YTE ABSOL [place] 0.84 0.10 - 1.30 K/uL 11/17 10:37 AM [facility] Not Available Not Available 12/24/2024 17:32:29 11/17/19 25 11/17/2024 CBC W Auto Diffe renti al panel - Blood eosinophil absolute 0.19 K/uL low: 0K/uLh igh: 0.7K/u L EOSIN OPHIL ABSOL [place] 0.19 0.00 - 0.70 K/uL 11/17 10:37 AM [facility] Not Available Not Available 12/24/2024 17:32:29 11/17/19 25 11/17/2024 CBC W Auto Diffe renti al panel - Blood basophils absolute 0.05 K/uL low: 0K/uLh igh: 0.2K/u L BASOP HILS ABSOL [place] 0.05 0.00 - 0.20 K/uL 11/17 10:37 AM [facility] Not Available Not Available 12/24/2024 17:32:29 11/17/19 25 11/17/2024 CBC W Auto Diffe renti al panel - Blood immature granulocytes absolute 0.06 K/uL low: 0K/uLh igh: 0.03K/ uL high IMMAT URE GRANU LOCYT ES ABSOL [place] 0.06 (H) 0.00 - 0.03 K/uL 11/17 10:37 AM [facility] Not Available Not Available 12/24/2024 [...] - 145 mmol/ L 11/18 1:00 PM [facility] Not Available Not Available 12/24/2024 17:32:29 11/18/19 25 11/18/2024 Renal funct ion 1999 panel - Serum or Plasm a potassium [moles/volum e] in serum or plasma 4.8 mmol/ L low: 3.4mmo l/Lhig h: 5.1mmo l/L POTAS SIUM 4.8 3.4 - 5.1 mmol/ L 11/18 1:00 PM [facility] Not Available Not Available 12/24/2024 17:32:29 11/18/19 25 11/18/2024 Renal funct ion 1999 panel - Serum or Plasm a chloride 97 mmol/ L low: 98mmol /Lhigh : 107mmo l/L low CHLOR BURT 97 (L) 98 - 107 mmol/ L 11/18 1:00 PM [facility] Not Available Not Available 12/24/2024 17:32:29 11/18/19 25 11/18/2024 Renal funct ion 1999 panel - Serum or Plasm a carbon dioxide, total [moles/volum e] in serum or plasma 19 mmol/ L low: 22mmol /Lhigh : 29mmol /L low CO2 19 (L) 22 - 29 mmol/ L 11/18 1:00 PM [facility] Not Available Not Available 12/24/2024 17:32:29 11/18/19 25 11/18/2024 Renal funct ion 1999 panel - Serum or Plasm a calcium 9.7 mg/dL low: 8.6mg/ dLhigh : 10.4mg /dL CALCI UM 9.7 8.6 - 10.4 mg/dL 11/18 1:00 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 Not Available Not Available 12/24/2024 17:32:29 11/18/19 25 11/18/2024 Renal funct ion 1999 panel - Serum or Plasm a BUN 48 mg/dL low: 6mg/dL high: 20mg/d L high BUN 48 (H) 6 - 20 mg/dL 11/18 1:00 PM 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 Not Available 12/24/2024 17:32:29 11/18/19 25 11/18/2024 Renal funct ion 2000 panel - Serum or Plasm a anion gap 15 mmol/ L low: 8mmol/ Lhigh: 16mmol /L ANION GAP 15 8 - 16 mmol/ L 11/18 1:00 PM [facility] Not Available 12/24/2024 [...] 4.0 - 9.8 K/uL 11/19 3:01 PM [facility] Not Available Not Available 12/24/2024 17:32:30 11/19/19 25 11/19/2024 CBC W Auto Diffe renti al panel - Blood RBC 2.28 text: 4.50 - 5.40 M/uL low RBC 2.28 (L) 4.50 - 5.40 M/uL 11/19 3:01 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[employer] [facility] Not Available Not Available 12/24/2024 17:32:30 11/19/19 25 11/19/2024 CBC W Auto Diffe renti al panel - Blood hemoglobin 7.9 g/dL low: 13.6g/ dLhigh : 16.5g/ dL low HEMOG LOBIN 7.9 (L) 13.6 - 16.5 g/dL 11/19 3:01 PM [facility] Not Available Not Available 12/24/2024 17:32:30 11/19/19 25 11/19/2024 CBC W Auto Diffe renti al panel - Blood hematocrit [volume fraction] of blood by automated count 24.8 % low: 40%hig h: 48% low HEMAT OCRIT 24.8 (L) 40.0 - 48.0 % 11/19 3:01 PM [facility] Not Available Not Available 12/24/2024 17:32:30 11/19/19 25 11/19/2024 CBC W Auto Diffe renti al panel - Blood MCV 108.8 fL low: 82fLhi gh: 99fL high MCV 108.8 (H) 82.0 - 99.0 fL 11/19 3:01 PM [facility] Not Available Not Available 12/24/2024 17:32:30 11/19/19 25 11/19/2024 CBC W Auto Diffe renti al panel - Blood MCH 34.6 pg low: 27.2pg high: 32.6pg high MCH 34.6 (H) 27.2 - 32.6 pg 11/19 3:01 PM [facility] Not Available Not Available 12/24/2024 17:32:30 11/19/19 25 11/19/2024 CBC W Auto Diffe renti al panel - Blood MCHC 31.9 g/dL low: 31.5g/ dLhigh : 35.5g/ dL MCHC 31.9 31.5 - 35.5 g/dL 11/19 3:01 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[employer] [facility] Not Available Not Available 12/24/2024 17:32:30 11/19/19 25 11/19/2024 CBC W Auto Diffe renti al panel - Blood RDW 15.3 % low: 11.5%h igh: 14.5% high RDW 15.3 (H) 11.5 - 14.5 % 11/19 3:01 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[employer] [facility] Not Available Not Available 12/24/2024 17:32:30 11/19/19 25 11/19/2024 CBC W Auto Diffe renti al panel - Blood RDW-stdev 61.2 fL low: 37.1fL high: 48.7fL high RDW-S TDEV 61.2 (H) 37.1 - 48.7 fL 11/19 3:01 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[employer] [facility] Not Available Not Available 12/24/2024 17:32:30 11/19/1911/19/2024 CBC W Auto Diffe renti al panel - Blood platelets [#/volume] in blood by automated count 389 K/uL low: 140K/u Lhigh: 350K/u L high PLATE LETS 389 (H) 140 - 350 K/uL 11/19 3:01 PM [facility] Not Available Not Available 12/24/2024 17:32:30 11/19/19 25 11/19/2024 CBC W Auto Diffe renti al panel - Blood MPV 9.5 fL low: 9.3fLh igh: 12.4fL MPV 9.5 9.3 - 12.4 fL 11/19 3:01 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[employer] [facility] Not Available Not Available 12/24/2024 17:32:30 11/19/19 25 11/19/2024 CBC W Auto Diffe renti al panel - Blood neutrophils 74 % NEUTR OPHIL S 74 % 11/19 3:01 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[employer] [facility] Not Available Not Available 12/24/2024 17:32:30 11/19/19 25 11/19/2024 CBC W Auto Diffe renti al panel - Blood lymphocytes/ 100 leukocytes in blood by automated count 13 % LYMPH OCYTE S 13 % 11/19 3:01 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[employer] [facility] Not Available Not Available 12/24/2024 17:32:30 11/19/19 25 11/19/2024 CBC W Auto Diffe renti al panel - Blood monocytes 9 % MONOC YTES 9 % 11/19 3:01 PM [facility] Not Available Not Available 12/24/2024 17:32:30 11/19/19 25 11/19/2024 CBC W Auto Diffe renti al panel - Blood eosinophils 3 % EOSIN OPHIL S 3 % 11/19 3:01 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[employer] [facility] Not Available Not Available 12/24/2024 17:32:30 11/19/19 25 11/19/2024 CBC W Auto Diffe renti al panel - Blood basophils 1 % BASOP HILS 1 % 11/19 3:01 PM [facility] Not Available Not Available 12/24/2024 17:32:30 11/19/19 25 11/19/2024 CBC W Auto Diffe renti al panel - Blood immature granulocytes 1 % IMMAT URE GRANU LOCYT ES 1 % 11/19 3:01 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[employer] [facility] Not Available Not Available 12/24/2024 17:32:30 11/19/19 25 11/19/2024 CBC W Auto Diffe renti al panel - Blood neutrophils [#/volume] in blood by automated count 5.09 K/uL low: 1.9K/u Lhigh: 7K/uL NEUTR OPHIL ABSOL [place] 5.09 1.90 - 7.00 K/uL 11/19 3:01 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 Not Available Not Available 12/24/2024 17:32:30 11/19/19 25 11/19/2024 CBC W Auto Diffe renti al panel - Blood lymphocyte absolute 0.9 K/uL low: 0.7K/u Lhigh: 4.5K/u L LYMPH OCYTE ABSOL [place]K 0.90 0.70 - 4.50 K/uL 11/19 3:01 PM [facility] Not Available Not Available 12/24/2024 17:32:30 11/19/19 25 11/19/2024 CBC W Auto Diffe renti al panel - Blood monocyte absolute 0.6 K/uL low: 0.1K/u Lhigh: 1.3K/u L MONOC YTE ABSOL [place]K 0.60 0.10 - 1.30 K/uL 11/19 3:[address] [facility] Not Available Not Available 12/24/2024 17:32:30 11/19/19 25 11/19/2024 CBC W Auto Diffe renti al panel - Blood eosinophil absolute 0.19 K/uL low: 0K/uLh igh: 0.7K/u L EOSIN OPHIL ABSOL [place] 0.19 0.00 - 0.70 K/uL 11/19 3:01 PM [facility] Not Available Not Available 12/24/2024 17:32:30 11/19/19 25 11/19/2024 CBC W Auto Diffe renti al panel - Blood basophils absolute 0.05 K/uL low: 0K/uLh igh: 0.2K/u L BASOP HILS ABSOL [place] 0.05 0.00 - 0.20 K/uL 11/19 3:01 PM [facility] Not Available Not Available 12/24/2024 17:32:30 11/19/19 25 11/19/2024 CBC W Auto Diffe renti al panel - Blood immature granulocytes absolute 0.04 K/uL low: 0K/uLh igh: 0.03K/ uL high IMMAT URE GRANU LOCYT ES ABSOL [place]K 0.04 (H) 0.00 - 0.03 K/uL 11/19 3:01 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[employer] [facility] Not Available Not Available 12/24/2024 17:32:30 11/19/19 25 11/19/2024 CBC W Auto Diffe renkelly al panel - Blood interpretati on and review of laboratory results [facility] Not Available Not Available 17:32:30 11/19/19 25 11/19/2024 Basic metab olic 1999 panel - Serum or Plasm a sodium [moles/volum e] in serum or plasma 136 mmol/ L low: 136mmo l/Lhig h: 145mmo l/L SODIU M 136 136 - 145 mmol/ L 11/19 3:59 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[employer] [facility] Not Available Not Available 12/24/2024 17:32:30 11/19/19 25 11/19/2024 Basic metab olic 1999 panel - Serum or Plasm a potassium [moles/volum e] in serum or plasma 4.8 mmol/ L low: 3.4mmo l/Lhig h: 5.1mmo l/L POTAS SIUM 4.8 3.4 - 5.1 mmol/ L 11/19 3:59 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[employer] [facility] Not Available Not Available 12/24/2024 17:32:30 11/19/19 25 11/19/2024 Basic metab olic 1999 panel - Serum or Plasm a chloride 103 mmol/ L low: 98mmol /Lhigh : 107mmo l/L CHLOR BURT 103 98 - 107 mmol/ L 11/19 3:59 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[employer] [facility] Not Available Not Available 12/24/2024 17:32:30 11/19/19 25 11/19/2024 Basic metab olic 1999 panel - Serum or Plasm a carbon dioxide, total [moles/volum e] in serum or plasma 23 mmol/ L low: 22mmol /Lhigh : 29mmol /L CO2 23 22 - 29 mmol/ L 11/19 3:59 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 Not Available Not Available 12/24/2024 17:32:30 11/19/19 25 11/19/2024 Basic metab olic 1999 panel - Serum or Plasm a calcium 9.4 mg/dL low: 8.6mg/ dLhigh : 10.4mg /dL CALCI UM 9.4 8.6 - 10.4 mg/dL 11/19 3:59 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[employer] [facility] Not Available Not Available 12/24/2024 17:32:30 11/19/19 25 11/19/2024 Basic metab olic 1999 panel - Serum or Plasm a BUN 31 mg/dL low: 6mg/dL high: 20mg/d L high BUN 31 (H) 6 - 20 mg/dL 11/19 3:59 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[employer] [facility] Not Available Not Available 12/24/2024 17:32:30 11/19/19 25 11/19/2024 Basic metab olic 1999 panel - Serum or Plasm a creatinine [mass/volume ] in serum or plasma 6.07 mg/dL low: 0.67mg /dLhig h: 1.17mg /dL high CREAT ININE 6.07 (H) 0.67 - 1.17 mg/dL 11/19 3:59 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[employer] [facility] Not Available Not Available 12/24/2024 17:32:30 11/19/19 25 11/19/2024 Basic metab olic 1999 panel - Serum or Plasm a glucose [mass/volume ] in serum or plasma 104 mg/dL low: 74mg/d Lhigh: 99mg/d L high GLUCO SE 104 (H) 74 - 99 mg/dL 11/19 3:59 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[employer] [facility] Not Available Not Available 12/24/2024 17:32:30 11/19/19 25 11/19/2024 Basic metab olic 2000 panel - Serum or Plasm a glomerular filtration rate/1.73 sq M.predicted [volume rate/area] in serum, plasma or blood by creatinine-b ased formula (CKD-epi 2020) 10 text: >=60 mL/min /1.73 sq meter low GFR 10 (L) >=60 mL/mi n/1.7 3 sq meter 11/19 3:59 PM [facility] Not Available Not Available 12/24/2024 17:32:30 11/19/19 25 11/19/2024 Basic metab olic 1999 panel - Serum or Plasm a anion gap 10 mmol/ L low: 8mmol/ Lhigh: 16mmol /L ANION GAP 10 8 - 16 mmol/ L 11/19 3:59 PM [facility] Not Available Not Available 12/24/2024 [...] - 145 mmol/ L 11/19 4:11 AM [facility] Not Available Not Available 12/24/2024 17:32:30 11/19/19 25 11/19/2024 Renal funct ion 1999 panel - Serum or Plasm a potassium [moles/volum e] in serum or plasma 5.4 mmol/ L low: 3.4mmo l/Lhig h: 5.1mmo l/L high POTAS SIUM 5.4 (H) 3.4 - 5.1 mmol/ L 11/19 4:11 AM [facility] Not Available Not Available 12/24/2024 17:32:30 11/19/19 25 11/19/2024 Renal funct ion 1999 panel - Serum or Plasm a chloride 100 mmol/ L low: 98mmol /Lhigh : 107mmo l/L CHLOR BURT 100 98 - 107 mmol/ L 11/19 4:11 AM [facility] Not Available Not Available 12/24/2024 17:32:30 11/19/19 25 11/19/2024 Renal funct ion 1999 panel - Serum or Plasm a carbon dioxide, total [moles/volum e] in serum or plasma 19 mmol/ L low: 22mmol /Lhigh : 29mmol /L low CO2 19 (L) 22 - 29 mmol/ L 11/19 4:11 AM [facility] Not [facility] Not Available 12/24/2024 17:32:30 11/19/19 25 11/19/2024 Renal funct ion 1999 panel - Serum or Plasm a calcium 9.5 mg/dL low: 8.6mg/ dLhigh : 10.4mg /dL CALCI UM 9.5 8.6 - 10.4 mg/dL 11/19 4:11 AM [facility] Not Available Not Available 12/24/2024 17:32:30 11/19/19 25 11/19/2024 Renal funct ion 1999 panel - Serum or Plasm a BUN 58 mg/dL low: 6mg/dL high: 20mg/d L high BUN 58 (H) 6 - 20 mg/dL 11/19 4:11 AM [facility] Not Available Not Available 12/24/2024 17:32:30 11/19/19 25 11/19/2024 Renal funct ion 1999 panel - Serum or Plasm a creatinine [mass/volume ] in serum or plasma 9.54 mg/dL low: 0.67mg /dLhig h: 1.17mg /dL high CREAT ININE 9.54 (H) 0.67 - 1.17 mg/dL 11/19 4:11 AM [facility] Not Available Not Available 12/24/2024 17:32:30 11/19/19 25 11/19/2024 Renal funct ion 1999 panel - Serum or Plasm a glucose [mass/volume ] in serum or plasma 112 mg/dL low: 74mg/d Lhigh: 99mg/d L high GLUCO SE 112 (H) 74 - 99 mg/dL 11/19 4:11 AM [facility] Not Available Not Available 12/24/2024 17:32:30 11/19/19 25 11/19/2024 Renal funct ion 2000 panel - Serum or Plasm a albumin 3 g/dL low: 3.5g/d Lhigh: 5.2g/d L low ALBUM IN 3.0 (L) 3.5 - 5.2 g/dL 11/19 4:11 AM [facility] Not Available Not Available 12/24/2024 17:32:30 11/19/19 25 11/19/2024 Renal funct ion 1999 panel - Serum or Plasm a phosphorus 4.8 mg/dL low: 2.5mg/ dLhigh : 4.5mg/ dL high PHOSP HORUS 4.8 (H) 2.5 - 4.5 mg/dL 11/19 4:11 AM [facility] Not Available Not Available 12/24/2024 17:32:30 11/19/1911/19/2024 Renal funct ion 2000 panel - Serum or Plasm a glomerular filtration rate/1.73 sq M.predicted [volume rate/area] in serum, plasma or blood by creatinine-b ased formula (CKD-epi 2020) 6 text: >=60 mL/min /1.73 sq meter low GFR 6 (L) >=60 mL/mi n/1.7 3 sq meter 11/19 4:11 AM [facility] Not Available Not Available 12/24/2024 17:32:30 11/19/1911/19/2024 Renal funct ion 2000 panel - Serum or Plasm a anion gap 10 mmol/ L low: 8mmol/ Lhigh: 16mmol /L ANION GAP 10 8 - 16 mmol/ L 11/19 4:11 AM [facility] Not Available Not Available 12/24/2024 [...] 4.0 - 9.8 K/uL 11/19 3:41 AM [employer] [facility] Not Available Not Available 12/24/2024 17:32:30 11/19/19 25 11/19/2024 CBC W Auto Diffe renti al panel - Blood RBC 2.17 text: 4.50 - 5.40 M/uL low RBC 2.17 (L) 4.50 - 5.40 M/uL 11/19 3:41 AM [facility] Not Available Not Available 12/24/2024 17:32:30 11/19/1911/19/2024 CBC W Auto Diffe renti al panel - Blood hemoglobin 7.3 g/dL low: 13.6g/ dLhigh : 16.5g/ dL low HEMOG LOBIN 7.3 (L) 13.6 - 16.5 g/dL 11/19 3:41 AM [facility] Not Available Not Available 12/24/2024 17:32:30 11/19/1911/19/2024 CBC W Auto Diffe renti al panel - Blood hematocrit [volume fraction] of blood by automated count 23.3 % low: 40%hig h: 48% low HEMAT OCRIT 23.3 (L) 40.0 - 48.0 % 11/19 3:41 AM [employer] [facility] Not Available Not Available 12/24/2024 17:32:30 11/19/19 25 11/19/2024 CBC W Auto Diffe renti al panel - Blood MCV 107.4 fL low: 82fLhi gh: 99fL high MCV 107.4 (H) 82.0 - 99.0 fL 11/19 3:41 AM [facility] Not Available Not Available 12/24/2024 17:32:30 11/19/19 25 11/19/2024 CBC W Auto Diffe renti al panel - Blood MCH 33.6 pg low: 27.2pg high: 32.6pg high MCH 33.6 (H) 27.2 - 32.6 pg 11/19 3:41 AM 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[employer] [facility] Not Available Not Available 12/24/2024 17:32:30 11/19/19 25 11/19/2024 CBC W Auto Diffe renti al panel - Blood MCHC 31.3 g/dL low: 31.5g/ dLhigh : 35.5g/ dL low MCHC 31.3 (L) 31.5 - 35.5 g/dL 11/19 3:41 AM [facility] Not Available Not Available 12/24/2024 17:32:30 11/19/19 25 11/19/2024 CBC W Auto Diffe renti al panel - Blood RDW 15.3 % low: 11.5%h igh: 14.5% high RDW 15.3 (H) 11.5 - 14.5 % 11/19 3:41 AM [facility] Not Available Not Available 12/24/2024 17:32:30 11/19/19 25 11/19/2024 CBC W Auto Diffe renti al panel - Blood RDW-stdev 60.8 fL low: 37.1fL high: 48.7fL high RDW-S TDEV 60.8 (H) 37.1 - 48.7 fL 11/19 3:41 AM [facility] Not Available Not Available 12/24/2024 17:32:30 11/19/19 25 11/19/2024 CBC W Auto Diffe renti al panel - Blood platelets [#/volume] in blood by automated count 385 K/uL low: 140K/u Lhigh: 350K/u L high PLATE LETS 385 (H) 140 - 350 K/uL 11/19 3:41 AM [facility] Not Available Not Available 12/24/2024 17:32:30 11/19/19 25 11/19/2024 CBC W Auto Diffe renti al panel - Blood MPV 9.7 fL low: 9.3fLh igh: 12.4fL MPV 9.7 9.3 - 12.4 fL 11/19 3:41 AM 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[employer] [facility] Not Available Not Available 12/24/2024 17:32:30 11/19/19 25 11/19/2024 CBC W Auto Diffe renti al panel - Blood neutrophils 77 % NEUTR OPHIL S 77 % 11/19 3:41 AM 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[employer] [facility] Not Available Not Available 12/24/2024 17:32:30 11/19/19 25 11/19/2024 CBC W Auto Diffe renti al panel - Blood lymphocytes/ 100 leukocytes in blood by automated count 11 % LYMPH OCYTE S 11 % 11/19 3:41 AM [facility] Not Available Not Available 12/24/2024 17:32:30 11/19/19 25 11/19/2024 CBC W Auto Diffe renti al panel - Blood monocytes 9 % MONOC YTES 9 % 11/19 3:41 AM [facility] Not Available Not Available 12/24/2024 17:32:30 11/19/19 25 11/19/2024 CBC W Auto Diffe renti al panel - Blood eosinophils 3 % EOSIN OPHIL S 3 % 11/19 3:41 AM [facility] Not Available Not Available 12/24/2024 17:32:30 11/19/19 25 11/19/2024 CBC W Auto Diffe renti al panel - Blood basophils 1 % BASOP HILS 1 % 11/19 3:41 AM [facility] Not Available Not Available 12/24/2024 17:32:30 11/19/19 25 11/19/2024 CBC W Auto Diffe renti al panel - Blood immature granulocytes 1 % IMMAT URE GRANU LOCYT ES 1 % 11/19 3:[facility] Not Available 12/24/2024 17:32:30 11/19/19 25 11/19/2024 CBC W Auto Diffe renti al panel - Blood neutrophils [#/volume] in blood by automated count 7.24 K/uL low: 1.9K/u Lhigh: 7K/uL high NEUTR OPHIL ABSOL [place]K 7.24 (H) 1.90 - 7.00 K/uL 11/19 3:41 AM [facility] Not Available 12/24/2024 17:32:30 11/19/19 25 11/19/2024 CBC W Auto Diffe renti al panel - Blood lymphocyte absolute 1 K/uL low: 0.7K/u Lhigh: 4.5K/u L LYMPH OCYTE ABSOL [place] 1.00 0.70 - 4.50 K/uL 11/19 3:41 AM 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 Not Available Not Available 12/24/2024 17:32:30 11/19/19 25 11/19/2024 CBC W Auto Diffe renti al panel - Blood monocyte absolute 0.81 K/uL low: 0.1K/u Lhigh: 1.3K/u L MONOC YTE ABSOL [place] 0.81 0.10 - 1.30 K/uL 11/19 3:41 AM 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[facility] Not Available Not Available 12/24/2024 17:32:30 11/19/19 25 11/19/2024 CBC W Auto Diffe renti al panel - Blood eosinophil absolute 0.25 K/uL low: 0K/uLh igh: 0.7K/u L EOSIN OPHIL ABSOL [place] 0.25 0.00 - 0.70 K/uL 11/19 3:41 AM 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[facility] Not Available Not Available 12/24/2024 17:32:30 11/19/19 25 11/19/2024 CBC W Auto Diffe renti al panel - Blood basophils absolute 0.07 K/uL low: 0K/uLh igh: 0.2K/u L BASOP HILS ABSOL [place] 0.07 0.00 - 0.20 K/uL 11/19 3:41 AM 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 Not [facility] Not Available 12/24/2024 17:32:30 11/19/19 25 11/19/2024 CBC W Auto Diffe renti al panel - Blood immature granulocytes absolute 0.06 K/uL low: 0K/uLh igh: 0.03K/ uL high IMMAT URE GRANU LOCYT ES ABSOL [place]K 0.06 (H) 0.00 - 0.03 K/uL 11/19 3:41 AM [facility] Not Available Not Available 12/24/2024 [...] - 145 mmol/ L 11/20 4:43 AM [facility] Not Available Not Available 12/24/2024 17:32:30 11/20/19 25 11/20/2024 Renal funct ion 1999 panel - Serum or Plasm a potassium [moles/volum e] in serum or plasma 5.1 mmol/ L low: 3.4mmo l/Lhig h: 5.1mmo l/L POTAS SIUM 5.1 3.4 - 5.1 mmol/ L 11/20 4:43 AM 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[employer] [facility] Not Available Not Available 12/24/2024 17:32:30 11/20/19 25 11/20/2024 Renal funct ion 1999 panel - Serum or Plasm a chloride 100 mmol/ L low: 98mmol /Lhigh : 107mmo l/L CHLOR BURT 100 98 - 107 mmol/ L 02/05 /2025 4:43 AM [facility] Not Available Not Available 12/24/2024 17:32:30 11/20/1911/20/2024 Renal funct ion 1999 panel - Serum or Plasm a carbon dioxide, total [moles/volum e] in serum or plasma 21 mmol/ L low: 22mmol /Lhigh : 29mmol /L low CO2 21 (L) 22 - 29 mmol/ L 11/20 4:43 AM [facility] Not Available Not Available 12/24/2024 17:32:30 11/20/19 25 11/20/2024 Renal funct ion 1999 panel - Serum or Plasm a calcium 9.4 mg/dL low: 8.6mg/ dLhigh : 10.4mg /dL CALCI UM 9.4 8.6 - 10.4 mg/dL 11/20 4:43 AM [facility] Not Available Not Available 12/24/2024 17:32:30 11/20/19 25 11/20/2024 Renal funct ion 1999 panel - Serum or Plasm a BUN 44 mg/dL low: 6mg/dL high: 20mg/d L high BUN 44 (H) 6 - 20 mg/dL 11/20 4:43 AM [facility] Not Available Not Available 12/24/2024 17:32:30 11/20/19 25 11/20/2024 Renal funct ion 1999 panel - Serum or Plasm a creatinine [mass/volume ] in serum or plasma 6.32 mg/dL low: 0.67mg /dLhig h: 1.17mg /dL high CREAT ININE 6.32 (H) 0.67 - 1.17 mg/dL 11/20 4:43 AM [facility] Not Available Not Available 12/24/2024 17:32:30 11/20/19 25 11/20/2024 Renal funct ion 1999 panel - Serum or Plasm a glucose [mass/volume ] in serum or plasma 104 mg/dL low: 74mg/d Lhigh: 99mg/d L high GLUCO SE 104 (H) 74 - 99 mg/dL 11/20 4:43 AM [facility] Not Available Not Available 12/24/2024 17:32:30 11/20/19 25 11/20/2024 Renal funct ion 1999 panel - Serum or Plasm a albumin 3.1 g/dL low: 3.5g/d Lhigh: 5.2g/d L low ALBUM IN 3.1 (L) 3.5 - 5.2 g/dL 11/20 4:43 AM [facility] Not Available Not Available 12/24/2024 17:32:30 11/20/19 25 11/20/2024 Renal funct ion 1999 panel - Serum or Plasm a phosphorus 3.8 mg/dL low: 2.5mg/ dLhigh : 4.5mg/ dL PHOSP HORUS 3.8 2.5 - 4.5 mg/dL 11/20 4:43 AM [facility] Not Available Not Available 12/24/2024 17:32:30 11/20/19 25 11/20/2024 Renal funct ion 1999 panel - Serum or Plasm a glomerular filtration rate/1.73 sq M.predicted [volume rate/area] in serum, plasma or blood by creatinine-b ased formula (CKD-epi 2020) 9 text: >=60 mL/min /1.73 sq meter low GFR 9 (L) >=60 mL/mi n/1.7 3 sq meter 11/20 4:43 AM [facility] Not Available Not Available 12/24/2024 17:32:30 11/20/19 25 11/20/2024 Renal funct ion 1999 panel - Serum or Plasm a anion gap 12 mmol/ L low: 8mmol/ Lhigh: 16mmol /L ANION GAP 12 8 - 16 mmol/ L 11/20 4:43 AM [facility] Not Available Not Available 12/24/2024 17:32:30 11/20/19 25 11/20/2024 Renal funct ion 2000 panel - Serum or Plasm a interpretati on and review of laboratory results Abnorm al Not Available Not Available 17:32:30 11/20/19 25 11/20/2024 CBC W Auto Diffe renti al panel - Blood leukocytes [#/volume] in blood 8 K/uL low: 4K/uLh igh: 9.8K/u L WBC 8.0 4.0 - 9.8 K/uL 11/20 4:22 AM [employer] [facility] Not Available Not Available 12/24/2024 17:32:30 11/20/19 25 11/20/2024 CBC W Auto Diffe demetrius al panel - Blood RBC 2.34 text: 4.50 - 5.40 M/uL low RBC 2.34 (L) 4.50 - 5.40 M/uL 11/20 4:22 AM [facility] Not Available Not Available 12/24/2024 17:32:30 11/20/19 25 11/20/2024 CBC W Auto Diffe demetrius al panel - Blood hemoglobin 8 g/dL low: 13.6g/ dLhigh : 16.5g/ dL low HEMOG LOBIN 8.0 (L) 13.6 - 16.5 g/dL 11/20 4:22 AM [facility] Not Available Not Available 12/24/2024 17:32:30 11/20/19 25 11/20/2024 CBC W Auto Diffe demetrius al panel - Blood hematocrit [volume fraction] of blood by automated count 25.4 % low: 40%hig h: 48% low HEMAT OCRIT 25.4 (L) 40.0 - 48.0 % 11/20 4:22 AM [facility] Not Available Not Available 12/24/2024 17:32:30 11/20/19 25 11/20/2024 CBC W Auto Diffe renti al panel - Blood MCV 108.5 fL low: 82fLhi gh: 99fL high MCV 108.5 (H) 82.0 - 99.0 fL 11/20 4:22 AM [employer] [facility] Not Available Not Available 12/24/2024 17:32:30 11/20/19 25 11/20/2024 CBC W Auto Diffe renti al panel - Blood MCH 34.2 pg low: 27.2pg high: 32.6pg high MCH 34.2 (H) 27.2 - 32.6 pg 11/20 4:22 AM [facility] Not Available Not Available 12/24/2024 17:32:30 11/20/19 25 11/20/2024 CBC W Auto Diffe renti al panel - Blood MCHC 31.5 g/dL low: 31.5g/ dLhigh : 35.5g/ dL MCHC 31.5 31.5 - 35.5 g/dL 11/20 4:22 AM [facility] Not Available Not Available 12/24/2024 17:32:30 11/20/19 25 11/20/2024 CBC W Auto Diffe renti al panel - Blood RDW 15.2 % low: 11.5%h igh: 14.5% high RDW 15.2 (H) 11.5 - 14.5 % 11/20 4:22 AM [facility] Not Available Not Available 12/24/2024 17:32:30 11/20/19 25 11/20/2024 CBC W Auto Diffe renti al panel - Blood RDW-stdev 60.9 fL low: 37.1fL high: 48.7fL high RDW-S TDEV 60.9 (H) 37.1 - 48.7 fL 11/20 4:22 AM [facility] Not Available Not Available 12/24/2024 17:32:30 11/20/1911/20/2024 CBC W Auto Diffe renti al panel - Blood platelets [#/volume] in blood by automated count 395 K/uL low: 140K/u Lhigh: 350K/u L high PLATE LETS 395 (H) 140 - 350 K/uL 11/20 4:22 AM [facility] Not Available Not Available 12/24/2024 17:32:30 11/20/19 25 11/20/2024 CBC W Auto Diffe renti al panel - Blood MPV 9.5 fL low: 9.3fLh igh: 12.4fL MPV 9.5 9.3 - 12.4 fL 11/20 4:22 AM 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[employer] [facility] Not Available Not Available 12/24/2024 17:32:30 11/20/19 25 11/20/2024 CBC W Auto Diffe renti al panel - Blood neutrophils 78 % NEUTR OPHIL S 78 % 11/20 4:22 AM 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[employer] [facility] Not Available Not Available 12/24/2024 17:32:30 11/20/19 25 11/20/2024 CBC W Auto Diffe renti al panel - Blood lymphocytes/ 100 leukocytes in blood by automated count 10 % LYMPH OCYTE S 10 % 11/20 4:22 AM 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 Not Available 12/24/2024 17:32:30 11/20/19 25 11/20/2024 CBC W Auto Diffe renti al panel - Blood monocytes 9 % MONOC YTES 9 % 11/20 4:22 AM 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[employer] [facility] Not Available Not Available 12/24/2024 17:32:30 11/20/19 25 11/20/2024 CBC W Auto Diffe renti al panel - Blood eosinophils 2 % EOSIN OPHIL S 2 % 11/20 4:22 AM [facility] Not Available Not Available 12/24/2024 17:32:30 11/20/19 25 11/20/2024 CBC W Auto Diffe renti al panel - Blood basophils 1 % BASOP HILS 1 % 11/20 4:22 AM [facility] Not Available Not Available 12/24/2024 17:32:30 11/20/19 25 11/20/2024 CBC W Auto Diffe renti al panel - Blood immature granulocytes 1 % IMMAT URE GRANU LOCYT ES 1 % 11/20 4:22 AM [facility] Not Available Not Available 12/24/2024 17:32:30 11/20/19 25 11/20/2024 CBC W Auto Diffe renti al panel - Blood neutrophils [#/volume] in blood by automated count 6.23 K/uL low: 1.9K/u Lhigh: 7K/uL NEUTR OPHIL ABSOL [place] 6.23 1.90 - 7.00 K/uL 11/20 4:22 AM [facility] Not Available Not Available 12/24/2024 17:32:30 11/20/19 25 11/20/2024 CBC W Auto Diffe renti al panel - Blood lymphocyte absolute 0.79 K/uL low: 0.7K/u Lhigh: 4.5K/u L LYMPH OCYTE ABSOL [place] 0.79 0.70 - 4.50 K/uL 11/20 4:22 AM [facility] Not [facility] Not Available 12/24/2024 17:32:30 11/20/19 25 11/20/2024 CBC W Auto Diffe renti al panel - Blood monocyte absolute 0.73 K/uL low: 0.1K/u Lhigh: 1.3K/u L MONOC YTE ABSOL [place] 0.73 0.10 - 1.30 K/uL 11/20 4:22 AM [facility] Not Available Not Available 12/24/2024 17:32:30 11/20/19 25 11/20/2024 CBC W Auto Diffe renti al panel - Blood eosinophil absolute 0.17 K/uL low: 0K/uLh igh: 0.7K/u L EOSIN OPHIL ABSOL [place] 0.17 0.00 - 0.70 K/uL 11/20 4:22 AM [facility] Not Available Not Available 12/24/2024 17:32:30 11/20/19 25 11/20/2024 CBC W Auto Diffe renti al panel - Blood basophils absolute 0.06 K/uL low: 0K/uLh igh: 0.2K/u L BASOP HILS ABSOL [place] 0.06 0.00 - 0.20 K/uL 11/20 4:22 AM 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[employer] [facility] Not Available Not Available 12/24/2024 17:32:30 11/20/19 25 11/20/2024 CBC W Auto Diffe renti al panel - Blood immature granulocytes absolute 0.06 K/uL low: 0K/uLh igh: 0.03K/ uL high IMMAT URE GRANU LOCYT ES ABSOL [place] 0.06 (H) 0.00 - 0.03 K/uL 11/20 4:22 AM [facility] Not Available Not Available 12/24/2024 [...] - 145 mmol/ L 11/21 6:44 AM [facility] Not Available Not Available 12/24/2024 17:32:30 11/21/1911/21/2024 Basic metab olic 1999 panel - Serum or Plasm a potassium [moles/volum e] in serum or plasma 5.6 mmol/ L low: 3.4mmo l/Lhig h: 5.1mmo l/L high POTAS SIUM 5.6 (H) 3.4 - 5.1 mmol/ L 11/21 6:44 AM [facility] Not Available Not Available 12/24/2024 17:32:30 11/21/19 25 11/21/2024 Basic metab olic 1999 panel - Serum or Plasm a chloride 103 mmol/ L low: 98mmol /Lhigh : 107mmo l/L CHLOR BURT 103 98 - 107 mmol/ L 11/21 6:44 AM [facility] Not Available Not Available 12/24/2024 17:32:30 11/21/19 25 11/21/2024 Basic metab olic 1999 panel - Serum or Plasm a carbon dioxide, total [moles/volum e] in serum or plasma 17 mmol/ L low: 22mmol /Lhigh : 29mmol /L low CO2 17 (L) 22 - 29 mmol/ L 11/21 6:44 AM [facility] Not Available Not Available 12/24/2024 17:32:30 11/21/19 25 11/21/2024 Basic metab olic 1999 panel - Serum or Plasm a calcium 9.5 mg/dL low: 8.6mg/ dLhigh : 10.4mg /dL CALCI UM 9.5 8.6 - 10.4 mg/dL 11/21 6:44 AM [facility] Not Available Not Available 12/24/2024 17:32:30 11/21/19 25 11/21/2024 Basic metab olic 1999 panel - Serum or Plasm a BUN 51 mg/dL low: 6mg/dL high: 20mg/d L high BUN 51 (H) 6 - 20 mg/dL 11/21 6:44 AM [facility] Not Available Not Available 12/24/2024 17:32:30 11/21/19 25 11/21/2024 Basic metab olic 2000 panel - Serum or Plasm a creatinine [mass/volume ] in serum or plasma 7.46 mg/dL low: 0.67mg /dLhig h: 1.17mg /dL high CREAT ININE 7.46 (H) 0.67 - 1.17 mg/dL 11/21 6:44 AM [facility] Not Available Not Available 12/24/2024 17:32:30 11/21/19 25 11/21/2024 Basic metab olic 2000 panel - Serum or Plasm a glucose [mass/volume ] in serum or plasma 174 mg/dL low: 74mg/d Lhigh: 99mg/d L high GLUCO SE 174 (H) 74 - 99 mg/dL 11/21 6:44 AM [employer] [facility] Not Available Not Available 12/24/2024 17:32:30 11/21/19 25 11/21/2024 Basic metab olic 2000 panel - Serum or Plasm a glomerular filtration rate/1.73 sq M.predicted [volume rate/area] in serum, plasma or blood by creatinine-b ased formula (CKD-epi 2020) 8 text: >=60 mL/min /1.73 sq meter low GFR 8 (L) >=60 mL/mi n/1.7 3 sq meter 11/21 6:44 AM [facility] Not Available Not Available 12/24/2024 17:32:30 11/21/19 25 11/21/2024 Basic metab olic 2000 panel - Serum or Plasm a anion gap 10 mmol/ L low: 8mmol/ Lhigh: 16mmol /L ANION GAP 10 8 - 16 mmol/ L 11/21 6:44 AM [address] [employer] [facility] Not Available Not Available 12/24/2024 17:32:30 11/21/19 [...] 4.0 - 9.8 K/uL 11/21 3:10 AM [employer] [facility] Not Available Not Available 12/24/2024 17:32:30 11/21/19 25 11/21/2024 CBC W Auto Diffe renti al panel - Blood RBC 2.25 text: 4.50 - 5.40 M/uL low RBC 2.25 (L) 4.50 - 5.40 M/uL 11/21 3:10 AM [facility] Not Available Not Available 12/24/2024 17:32:30 11/21/19 25 11/21/2024 CBC W Auto Diffe renti al panel - Blood hemoglobin 7.5 g/dL low: 13.6g/ dLhigh : 16.5g/ dL low HEMOG LOBIN 7.5 (L) 13.6 - 16.5 g/dL 11/21 3:10 AM [facility] Not Available Not Available 12/24/2024 17:32:30 11/21/19 25 11/21/2024 CBC W Auto Diffe renti al panel - Blood hematocrit [volume fraction] of blood by automated count 23.8 % low: 40%hig h: 48% low HEMAT OCRIT 23.8 (L) 40.0 - 48.0 % 11/21 3:10 AM [facility] Not Available Not Available 12/24/2024 17:32:30 11/21/19 25 11/21/2024 CBC W Auto Diffe renti al panel - Blood MCV 105.8 fL low: 82fLhi gh: 99fL high MCV 105.8 (H) 82.0 - 99.0 fL 11/21 3:10 AM [facility] Not Available Not Available 12/24/2024 17:32:30 11/21/19 25 11/21/2024 CBC W Auto Diffe renti al panel - Blood MCH 33.3 pg low: 27.2pg high: 32.6pg high MCH 33.3 (H) 27.2 - 32.6 pg 11/21 3:10 AM [facility] Not Available Not Available 12/24/2024 17:32:30 11/21/19 25 11/21/2024 CBC W Auto Diffe renti al panel - Blood MCHC 31.5 g/dL low: 31.5g/ dLhigh : 35.5g/ dL MCHC 31.5 31.5 - 35.5 g/dL 11/21 3:10 AM [facility] Not Available Not Available 12/24/2024 17:32:30 11/21/19 25 11/21/2024 CBC W Auto Diffe renti al panel - Blood RDW 17.8 % low: 11.5%h igh: 14.5% high RDW 17.8 (H) 11.5 - 14.5 % 11/21 3:10 AM [facility] Not Available Not Available 12/24/2024 17:32:30 11/21/19 25 11/21/2024 CBC W Auto Diffe renti al panel - Blood RDW-stdev 70.4 fL low: 37.1fL high: 48.7fL high RDW-S TDEV 70.4 (H) 37.1 - 48.7 fL 11/21 3:10 AM [facility] Not Available Not Available 12/24/2024 17:32:30 11/21/19 25 11/21/2024 CBC W Auto Diffe renti al panel - Blood platelets [#/volume] in blood by automated count 370 K/uL low: 140K/u Lhigh: 350K/u L high PLATE LETS 370 (H) 140 - 350 K/uL 11/21 3:10 AM [facility] Not Available Not Available 12/24/2024 17:32:30 11/21/19 25 11/21/2024 CBC W Auto Diffe renti al panel - Blood MPV 9.9 fL low: 9.3fLh igh: 12.4fL MPV 9.9 9.3 - 12.4 fL 11/21 3:10 AM [facility] Not Available Not Available 12/24/2024 17:32:30 11/21/19 25 11/21/2024 CBC W Auto Diffe renti al panel - Blood neutrophils 81 % NEUTR OPHIL S 81 % 11/21 3:10 AM [facility] Not Available Not Available 12/24/2024 17:32:30 11/21/19 25 11/21/2024 CBC W Auto Diffe renti al panel - Blood lymphocytes/ 100 leukocytes in blood by automated count 8 % LYMPH OCYTE S 8 % 11/21 3:10 AM [facility] Not Available Not Available 12/24/2024 17:32:30 11/21/19 25 11/21/2024 CBC W Auto Diffe renti al panel - Blood monocytes 8 % MONOC YTES 8 % 11/21 3:10 AM [facility] Not Available Not Available 12/24/2024 17:32:30 11/21/19 25 11/21/2024 CBC W Auto Diffe renti al panel - Blood eosinophils 2 % EOSIN OPHIL S 2 % 11/21 3:10 [facility] Not Available 12/24/2024 17:32:30 11/21/19 25 11/21/2024 CBC W Auto Diffe renti al panel - Blood basophils 1 % BASOP HILS 1 % 11/21 3:10 [facility] Not [facility] Not Available 12/24/2024 17:32:30 11/21/19 25 11/21/2024 CBC W Auto Diffe renti al panel - Blood immature granulocytes 1 % IMMAT URE GRANU LOCYT ES 1 % 11/21 3:10 [facility] Not [facility] Not Available 12/24/2024 17:32:30 11/21/19 25 11/21/2024 CBC W Auto Diffe renti al panel - Blood neutrophils [#/volume] in blood by automated count 8.26 K/uL low: 1.9K/u Lhigh: 7K/uL high NEUTR OPHIL ABSOL [place] 8.26 (H) 1.90 - 7.00 K/uL 11/21 3:10 AM [facility] Not Available Not Available 12/24/2024 17:32:30 11/21/19 25 11/21/2024 CBC W Auto Diffe renti al panel - Blood lymphocyte absolute 0.79 K/uL low: 0.7K/u Lhigh: 4.5K/u L LYMPH OCYTE ABSOL [place] 0.79 0.70 - 4.50 K/uL 11/21 3:10 AM [facility] Not Available Not Available 12/24/2024 17:32:30 11/21/19 25 11/21/2024 CBC W Auto Diffe renti al panel - Blood monocyte absolute 0.77 K/uL low: 0.1K/u Lhigh: 1.3K/u L MONOC YTE ABSOL [place] 0.77 0.10 - 1.30 K/uL 11/21 3:10 AM [facility] Not Available Not Available 12/24/2024 17:32:30 11/21/19 25 11/21/2024 CBC W Auto Diffe renti al panel - Blood eosinophil absolute 0.19 K/uL low: 0K/uLh igh: 0.7K/u L EOSIN OPHIL ABSOL [place] 0.19 0.00 - 0.70 K/uL 11/21 3:10 AM [facility] Not Available Not Available 12/24/2024 17:32:30 11/21/19 25 11/21/2024 CBC W Auto Diffe renti al panel - Blood basophils absolute 0.08 K/uL low: 0K/uLh igh: 0.2K/u L BASOP HILS ABSOL [place] 0.08 0.00 - 0.20 K/uL 11/21 3:10 AM [facility] Not Available Not Available 12/24/2024 17:32:30 11/21/19 25 11/21/2024 CBC W Auto Diffe renti al panel - Blood immature granulocytes absolute 0.07 K/uL low: 0K/uLh igh: 0.03K/ uL high IMMAT URE GRANU LOCYT ES ABSOL [place] 0.07 (H) 0.00 - 0.03 K/uL 11/21 3:10 AM [facility] Not Available Not Available 12/24/2024 17:32:30 11/21/19 25 11/21/2024 CBC W Auto Diffe renti al panel - Blood interpretati on and review of laboratory results Abnorm amanda Not Available Not Available 17:32:30 11/21/19 25 11/21/2024 Renal funct ion 1999 panel - Serum or Plasm a sodium [moles/volum e] in serum or plasma 132 mmol/ L low: 136mmo l/Lhig h: 145mmo l/L low SODIU M 132 (L) 136 - 145 mmol/ L 11/21 4:55 AM 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[facility] Not Available Not Available 12/24/2024 17:32:30 11/21/19 25 11/21/2024 Renal funct ion 1999 panel - Serum or Plasm a potassium [moles/volum e] in serum or plasma 6.6 mmol/ L low: 3.4mmo l/Lhig h: 5.1mmo l/L critical high POTAS SIUM 6.6 (HH) 3.4 - 5.1 mmol/ L 11/21 4:55 AM 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[employer] [facility] Not Available Not Available 12/24/2024 17:32:30 11/21/19 25 11/21/2024 Renal funct ion 1999 panel - Serum or Plasm a chloride 103 mmol/ L low: 98mmol /Lhigh : 107mmo l/L CHLOR BURT 103 98 - 107 mmol/ L 11/21 4:55 AM 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[employer] [facility] Not Available Not Available 12/24/2024 17:32:30 11/21/19 25 11/21/2024 Renal funct ion 1999 panel - Serum or Plasm a carbon dioxide, total [moles/volum e] in serum or plasma 17 mmol/ L low: 22mmol /Lhigh : 29mmol /L low CO2 17 (L) 22 - 29 mmol/ L 11/21 4:55 AM 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[employer] [facility] Not Available Not Available 12/24/2024 17:32:30 11/21/19 25 11/21/2024 Renal funct ion 1999 panel - Serum or Plasm a calcium 9.3 mg/dL low: 8.6mg/ dLhigh : 10.4mg /dL CALCI UM 9.3 8.6 - 10.4 mg/dL 11/21 4:55 AM [employer] [facility] Not Available Not Available 12/24/2024 17:32:30 11/21/19 25 11/21/2024 Renal funct ion 1999 panel - Serum or Plasm a BUN 49 mg/dL low: 6mg/dL high: 20mg/d L high BUN 49 (H) 6 - 20 mg/dL 11/21 4:55 AM [facility] Not Available Not Available 12/24/2024 17:32:30 11/21/19 25 11/21/2024 Renal funct ion 1999 panel - Serum or Plasm a creatinine [mass/volume ] in serum or plasma 7.3 mg/dL low: 0.67mg /dLhig h: 1.17mg /dL high CREAT ININE 7.30 (H) 0.67 - 1.17 mg/dL 11/21 4:55 AM [facility] Not Available Not Available 12/24/2024 17:32:30 11/21/19 25 11/21/2024 Renal funct ion 1999 panel - Serum or Plasm a glucose [mass/volume ] in serum or plasma 105 mg/dL low: 74mg/d Lhigh: 99mg/d L high GLUCO SE 105 (H) 74 - 99 mg/dL 11/21 4:55 AM [facility] Not Available Not Available 12/24/2024 17:32:30 11/21/19 25 11/21/2024 Renal funct ion 1999 panel - Serum or Plasm a albumin 2.9 g/dL low: 3.5g/d Lhigh: 5.2g/d L low ALBUM IN 2.9 (L) 3.5 - 5.2 g/dL 11/21 4:55 AM [facility] Not Available Not Available 12/24/2024 17:32:30 11/21/19 25 11/21/2024 Renal funct ion 1999 panel - Serum or Plasm a phosphorus 4.7 mg/dL low: 2.5mg/ dLhigh : 4.5mg/ dL high PHOSP HORUS 4.7 (H) 2.5 - 4.5 mg/dL 11/21 4:55 AM [facility] Not Available Not Available 12/24/2024 17:32:30 11/21/19 25 11/21/2024 Renal funct ion 1999 panel - Serum or Plasm a glomerular filtration rate/1.73 sq M.predicted [volume rate/area] in serum, plasma or blood by creatinine-b ased formula (CKD-epi 2020) 8 text: >=60 mL/min /1.73 sq meter low GFR 8 (L) >=60 mL/mi n/1.7 3 sq meter 11/21 4:55 AM [facility] Not Available Not Available 12/24/2024 17:32:30 11/21/19 25 11/21/2024 Renal funct ion 1999 panel - Serum or Plasm a anion gap 12 mmol/ L low: 8mmol/ Lhigh: 16mmol /L ANION GAP 12 8 - 16 mmol/ L 11/21 4:55 AM [facility] Not Available Not Available 12/24/2024 [...] - 145 mmol/ L 11/22 7:06 AM [facility] Not Available Not Available 12/24/2024 17:32:31 11/22/19 25 11/22/2024 Renal funct ion 1999 panel - Serum or Plasm a potassium [moles/volum e] in serum or plasma 5.9 mmol/ L low: 3.4mmo l/Lhig h: 5.1mmo l/L high POTAS SIUM 5.9 (H) 3.4 - 5.1 mmol/ L 11/22 7:06 AM [employer] [facility] Not Available Not Available 12/24/2024 17:32:31 11/22/19 25 11/22/2024 Renal funct ion 1999 panel - Serum or Plasm a chloride 102 mmol/ L low: 98mmol /Lhigh : 107mmo l/L [facility] 102 98 - 107 mmol/ L 11/22 7:06 AM [facility] Not [facility] Not Available 12/24/2024 17:32:31 11/22/19 25 11/22/2024 Renal funct ion 1999 panel - Serum or Plasm a carbon dioxide, total [moles/volum e] in serum or plasma 20 mmol/ L low: 22mmol /Lhigh : 29mmol /L low CO2 20 (L) 22 - 29 mmol/ L 11/22 7:06 AM [facility] Not [facility] Not Available 12/24/2024 17:32:31 11/22/19 25 11/22/2024 Renal funct ion 1999 panel - Serum or Plasm a calcium 9.6 mg/dL low: 8.6mg/ dLhigh : 10.4mg /dL CALCI UM 9.6 8.6 - 10.4 mg/dL 11/22 7:06 AM [employer] [facility] Not Available Not Available 12/24/2024 17:32:31 11/22/19 25 11/22/2024 Renal funct ion 1999 panel - Serum or Plasm a BUN 36 mg/dL low: 6mg/dL high: 20mg/d L high BUN 36 (H) 6 - 20 mg/dL 11/22 7:06 AM [employer] [facility] Not Available Not Available 12/24/2024 17:32:31 11/22/19 25 11/22/2024 Renal funct ion 1999 panel - Serum or Plasm a creatinine [mass/volume ] in serum or plasma 5.92 mg/dL low: 0.67mg /dLhig h: 1.17mg /dL high CREAT ININE 5.92 (H) 0.67 - 1.17 mg/dL 11/22 7:06 AM [employer] [facility] Not Available Not Available 12/24/2024 17:32:31 11/22/19 25 11/22/2024 Renal funct ion 1999 panel - Serum or Plasm a glucose [mass/volume ] in serum or plasma 101 mg/dL low: 74mg/d Lhigh: 99mg/d L high GLUCO SE 101 (H) 74 - 99 mg/dL 11/22 7:06 AM [employer] [facility] Not Available Not Available 12/24/2024 17:32:31 11/22/19 25 11/22/2024 Renal funct ion 1999 panel - Serum or Plasm a albumin 3 g/dL low: 3.5g/d Lhigh: 5.2g/d L low ALBUM IN 3.0 (L) 3.5 - 5.2 g/dL 11/22 7:06 AM [employer] [facility] Not Available Not Available 12/24/2024 17:32:31 11/22/19 25 11/22/2024 Renal funct ion 1999 panel - Serum or Plasm a phosphorus 4.3 mg/dL low: 2.5mg/ dLhigh : 4.5mg/ dL PHOSP HORUS 4.3 2.5 - 4.5 mg/dL 11/22 7:06 AM [employer] [facility] Not Available Not Available 12/24/2024 17:32:31 11/22/19 25 11/22/2024 Renal funct ion 2000 panel - Serum or Plasm a glomerular filtration rate/1.73 sq M.predicted [volume rate/area] in serum, plasma or blood by creatinine-b ased formula (CKD-epi 2020) 10 text: >=60 mL/min /1.73 sq meter low GFR 10 (L) >=60 mL/mi n/1.7 3 sq meter 11/22 7:06 AM [facility] Not Available Not Available 12/24/2024 17:32:31 11/22/19 25 11/22/2024 Renal funct ion 2000 panel - Serum or Plasm a anion gap 13 mmol/ L low: 8mmol/ Lhigh: 16mmol /L ANION GAP 13 8 - 16 mmol/ L 11/22 7:06 AM [facility] Not Available 12/24/2024 [...] 4.0 - 9.8 K/uL 11/22 6:31 AM [facility] Not Available Not Available 12/24/2024 17:32:30 11/22/19 25 11/22/2024 CBC W Auto Diffe renti al panel - Blood RBC 2.52 text: 4.50 - 5.40 M/uL low RBC 2.52 (L) 4.50 - 5.40 M/uL 11/22 6:31 AM [facility] Not Available Not Available 12/24/2024 17:32:30 11/22/19 25 11/22/2024 CBC W Auto Diffe renti al panel - Blood hemoglobin 8.5 g/dL low: 13.6g/ dLhigh : 16.5g/ dL low HEMOG LOBIN 8.5 (L) 13.6 - 16.5 g/dL 11/22 6:31 AM [employer] [facility] Not Available Not Available 12/24/2024 17:32:30 11/22/19 25 11/22/2024 CBC W Auto Diffe renti al panel - Blood hematocrit [volume fraction] of blood by automated count 26.9 % low: 40%hig h: 48% low HEMAT OCRIT 26.9 (L) 40.0 - 48.0 % 11/22 6:31 AM [facility] [facility] Not [facility] Not Available 12/24/2024 17:32:30 11/22/19 25 11/22/2024 CBC W Auto Diffe renti al panel - Blood MCV 106.7 fL low: 82fLhi gh: 99fL high MCV 106.7 (H) 82.0 - 99.0 fL 11/22 6:31 AM [facility] Not [facility] Not Available 12/24/2024 17:32:30 11/22/19 25 11/22/2024 CBC W Auto Diffe renti al panel - Blood MCH 33.7 pg low: 27.2pg high: 32.6pg high MCH 33.7 (H) 27.2 - 32.6 pg 11/22 6:31 AM [facility] Not [facility] Not Available 12/24/2024 17:32:30 11/22/19 25 11/22/2024 CBC W Auto Diffe renti al panel - Blood MCHC 31.6 g/dL low: 31.5g/ dLhigh : 35.5g/ dL MCHC 31.6 31.5 - 35.5 g/dL 11/22 6:31 AM [facility] Not [facility] Not Available 12/24/2024 17:32:30 11/22/19 25 11/22/2024 CBC W Auto Diffe renti al panel - Blood RDW 16.9 % low: 11.5%h igh: 14.5% high RDW 16.9 (H) 11.5 - 14.5 % 11/22 6:31 AM [employer] [facility] Not Available Not Available 12/24/2024 17:32:30 11/22/19 25 11/22/2024 CBC W Auto Diffe renti al panel - Blood RDW-stdev 66.1 fL low: 37.1fL high: 48.7fL high RDW-S TDEV 66.1 (H) 37.1 - 48.7 fL 11/22 6:31 AM [facility] Not Available Not Available 12/24/2024 17:32:30 11/22/19 25 11/22/2024 CBC W Auto Diffe renti al panel - Blood platelets [#/volume] in blood by automated count 352 K/uL low: 140K/u Lhigh: 350K/u L high PLATE LETS 352 (H) 140 - 350 K/uL 11/22 6:31 AM [facility] Not Available Not Available 12/24/2024 17:32:30 11/22/19 25 11/22/2024 CBC W Auto Diffe renti al panel - Blood MPV 9.7 fL low: 9.3fLh igh: 12.4fL MPV 9.7 9.3 - 12.4 fL 11/22 6:31 AM [facility] Not [facility] Not Available 12/24/2024 17:32:30 11/22/19 25 11/22/2024 CBC W Auto Diffe renti al panel - Blood neutrophils 80 % NEUTR OPHIL S 80 % 11/22 6:31 AM [facility] Not Available Not Available 12/24/2024 17:32:30 11/22/19 25 11/22/2024 CBC W Auto Diffe renti al panel - Blood lymphocytes/ 100 leukocytes in blood by automated count 8 % LYMPH OCYTE S 8 % 11/22 6:31 AM [facility] Not [facility] Not Available 12/24/2024 17:32:30 11/22/19 25 11/22/2024 CBC W Auto Diffe renti al panel - Blood monocytes 8 % MONOC YTES 8 % 11/22 6:31 AM [facility] Not [facility] Not Available 12/24/2024 17:32:30 11/22/19 25 11/22/2024 CBC W Auto Diffe renti al panel - Blood eosinophils 2 % EOSIN OPHIL S 2 % 11/22 6:31 AM [facility] Not Available Not Available 12/24/2024 17:32:30 11/22/19 25 11/22/2024 CBC W Auto Diffe renti al panel - Blood basophils 1 % BASOP HILS 1 % 11/22 6:31 AM [facility] Not Available Not Available 12/24/2024 17:32:30 11/22/19 25 11/22/2024 CBC W Auto Diffe renti al panel - Blood immature granulocytes 1 % IMMAT URE GRANU LOCYT ES 1 % 11/22 6:31 AM 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[employer] [facility] Not Available Not Available 12/24/2024 17:32:30 11/22/19 25 11/22/2024 CBC W Auto Diffe renti al panel - Blood neutrophils [#/volume] in blood by automated count 9.01 K/uL low: 1.9K/u Lhigh: 7K/uL high NEUTR OPHIL ABSOL [place]K 9.01 (H) 1.90 - 7.00 K/uL 11/22 6:31 AM [facility] Not Available Not Available 12/24/2024 17:32:30 11/22/19 25 11/22/2024 CBC W Auto Diffe renti al panel - Blood lymphocyte absolute 0.91 K/uL low: 0.7K/u Lhigh: 4.5K/u L LYMPH OCYTE ABSOL [place] 0.91 0.70 - 4.50 K/uL 11/22 6:31 AM [facility] Not Available Not Available 12/24/2024 17:32:30 11/22/19 25 11/22/2024 CBC W Auto Diffe renti al panel - Blood monocyte absolute 0.92 K/uL low: 0.1K/u Lhigh: 1.3K/u L MONOC YTE ABSOL [place] 0.92 0.10 - 1.30 K/uL 11/22 6:31 AM 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[employer] [facility] Not Available Not Available 12/24/2024 17:32:30 11/22/19 25 11/22/2024 CBC W Auto Diffe renti al panel - Blood eosinophil absolute 0.22 K/uL low: 0K/uLh igh: 0.7K/u L EOSIN OPHIL ABSOL [place] 0.22 0.00 - 0.70 K/uL 11/22 6:31 AM 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 Not Available 12/24/2024 17:32:30 11/22/19 25 11/22/2024 CBC W Auto Diffe renti al panel - Blood basophils absolute 0.09 K/uL low: 0K/uLh igh: 0.2K/u L BASOP HILS ABSOL [place] 0.09 0.00 - 0.20 K/uL 11/22 6:31 AM 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 Not [facility] Not Available 12/24/2024 17:32:30 11/22/19 25 11/22/2024 CBC W Auto Diffe renti al panel - Blood immature granulocytes absolute 0.07 K/uL low: 0K/uLh igh: 0.03K/ uL high IMMAT URE GRANU LOCYT ES ABSOL [place] 0.07 (H) 0.00 - 0.03 K/uL 11/22 6:31 AM [facility] Not [facility] Not Available 12/24/2024 [...] (A) DAVID MCG/M L 11/28 11:33 AM 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 Not [facility] Not Available 12/24/2024 17:32:31 11/23/19 25 11/28/2024 Bacte shaneka ident ified in Speci men by Anaer obe+A erobe cultu re microscopic observation [identifier] in specimen by gram stain No organi sms observ ed GRAM STAIN No organ isms obser evan 11/28 11:33 AM 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[employer] [facility] Not Available Not Available 12/24/2024 17:32:31 11/23/19 25 11/28/2024 Bacte shaneka ident ified in Speci men by Anaer obe+A erobe cultu re microscopic observation [identifier] in specimen by gram stain 1+ (Rare or Occasi onal) Polymo rphonu clear WBC GRAM STAIN 1+ (Rare or Occas ional ) Polym orpho nucle ar WBC 11/28 11:33 AM 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[employer] [facility] Not Available Not Available 12/24/2024 [...] - 145 mmol/ L 11/23 6:19 AM [facility] Not Available Not Available 12/24/2024 17:32:31 11/23/19 25 11/23/2024 Renal funct ion 1999 panel - Serum or Plasm a potassium [moles/volum e] in serum or plasma 4.5 mmol/ L low: 3.4mmo l/Lhig h: 5.1mmo l/L POTAS SIUM 4.5 3.4 - 5.1 mmol/ L 11/23 6:19 AM [facility] Not [facility] Not Available 12/24/2024 17:32:31 11/23/19 25 11/23/2024 Renal funct ion 1999 panel - Serum or Plasm a chloride 100 mmol/ L low: 98mmol /Lhigh : 107mmo l/L CHLOR BURT 100 98 - 107 mmol/ L 11/23 6:19 AM [facility] Not [facility] Not Available 12/24/2024 17:32:31 11/23/19 25 11/23/2024 Renal funct ion 1999 panel - Serum or Plasm a carbon dioxide, total [moles/volum e] in serum or plasma 21 mmol/ L low: 22mmol /Lhigh : 29mmol /L low CO2 21 (L) 22 - 29 mmol/ L 11/23 6:19 AM [facility] Not [facility] Not Available 12/24/2024 17:32:31 11/23/19 25 11/23/2024 Renal funct ion 1999 panel - Serum or Plasm a calcium 9.2 mg/dL low: 8.6mg/ dLhigh : 10.4mg /dL CALCI UM 9.2 8.6 - 10.4 mg/dL 11/23 6:19 AM [facility] Not [facility] Not Available 12/24/2024 17:32:31 11/23/19 25 11/23/2024 Renal funct ion 1999 panel - Serum or Plasm a BUN 37 mg/dL low: 6mg/dL high: 20mg/d L high BUN 37 (H) 6 - 20 mg/dL 11/23 6:19 AM [facility] Not [facility] Not Available 12/24/2024 17:32:31 11/23/19 25 11/23/2024 Renal funct ion 1999 panel - Serum or Plasm a creatinine [mass/volume ] in serum or plasma 6.21 mg/dL low: 0.67mg /dLhig h: 1.17mg /dL high CREAT ININE 6.21 (H) 0.67 - 1.17 mg/dL 11/23 6:19 AM [facility] Not [facility] Not Available 12/24/2024 17:32:31 11/23/19 25 11/23/2024 Renal funct ion 1999 panel - Serum or Plasm a glucose [mass/volume ] in serum or plasma 89 mg/dL low: 74mg/d Lhigh: 99mg/d L GLUCO SE 89 74 - 99 mg/dL 11/23 6:19 AM [facility] Not [facility] Not Available 12/24/2024 17:32:31 11/23/19 25 11/23/2024 Renal funct ion 1999 panel - Serum or Plasm a albumin 2.8 g/dL low: 3.5g/d Lhigh: 5.2g/d L low ALBUM IN 2.8 (L) 3.5 - 5.2 g/dL 11/23 6:19 AM [facility] Not [facility] Not Available 12/24/2024 17:32:31 11/23/19 25 11/23/2024 Renal funct ion 1999 panel - Serum or Plasm a phosphorus 4.2 mg/dL low: 2.5mg/ dLhigh : 4.5mg/ dL PHOSP HORUS 4.2 2.5 - 4.5 mg/dL 11/23 6:19 AM [facility] Not Available Not Available 12/24/2024 17:32:31 11/23/19 25 11/23/2024 Renal funct ion 1999 panel - Serum or Plasm a glomerular filtration rate/1.73 sq M.predicted [volume rate/area] in serum, plasma or blood by creatinine-b ased formula (CKD-epi 2020) 9 text: >=60 mL/min /1.73 sq meter low GFR 9 (L) >=60 mL/mi n/1.7 3 sq meter 11/23 6:19 AM [facility] Not Available Not Available 12/24/2024 17:32:31 11/23/19 25 11/23/2024 Renal funct ion 2000 panel - Serum or Plasm a anion gap 13 mmol/ L low: 8mmol/ Lhigh: 16mmol /L ANION GAP 13 8 - 16 mmol/ L 11/23 6:19 AM [facility] Not Available 12/24/2024 [...] 4.0 - 9.8 K/uL 11/23 4:11 AM [facility] Not Available Not Available 12/24/2024 17:32:07 11/23/19 25 11/23/2024 CBC W Auto Diffe renti al panel - Blood RBC 2.12 text: 4.50 - 5.40 M/uL low RBC 2.12 (L) 4.50 - 5.40 M/uL 11/23 4:11 AM [facility] Not Available Not Available 12/24/2024 17:32:07 11/23/19 25 11/23/2024 CBC W Auto Diffe renti al panel - Blood hemoglobin 7 g/dL low: 13.6g/ dLhigh : 16.5g/ dL low HEMOG LOBIN 7.0 (L) 13.6 - 16.5 g/dL 11/23 4:11 AM [facility] Not Available Not Available 12/24/2024 17:32:07 11/23/19 25 11/23/2024 CBC W Auto Diffe renti al panel - Blood hematocrit [volume fraction] of blood by automated count 21.9 % low: 40%hig h: 48% low HEMAT OCRIT 21.9 (L) 40.0 - 48.0 % 11/23 4:11 AM [facility] Not Available Not Available 12/24/2024 17:32:07 11/23/19 25 11/23/2024 CBC W Auto Diffe renti al panel - Blood MCV 103.3 fL low: 82fLhi gh: 99fL high MCV 103.3 (H) 82.0 - 99.0 fL 11/23 4:11 AM [facility] Not [facility] Not Available 12/24/2024 17:32:07 11/23/19 25 11/23/2024 CBC W Auto Diffe renti al panel - Blood MCH 33 pg low: 27.2pg high: 32.6pg high MCH 33.0 (H) 27.2 - 32.6 pg 11/23 4:11 AM [facility] Not Available Not Available 12/24/2024 17:32:07 11/23/19 25 11/23/2024 CBC W Auto Diffe renti al panel - Blood MCHC 32 g/dL low: 31.5g/ dLhigh : 35.5g/ dL MCHC 32.0 31.5 - 35.5 g/dL 11/23 4:11 AM [facility] Not Available Not Available 12/24/2024 17:32:07 11/23/19 25 11/23/2024 CBC W Auto Diffe renti al panel - Blood RDW 16.6 % low: 11.5%h igh: 14.5% high RDW 16.6 (H) 11.5 - 14.5 % 11/23 4:11 AM [facility] Not Available Not Available 12/24/2024 17:32:07 11/23/19 25 11/23/2024 CBC W Auto Diffe renti al panel - Blood RDW-stdev 62.7 fL low: 37.1fL high: 48.7fL high RDW-S TDEV 62.7 (H) 37.1 - 48.7 fL 11/23 4:11 AM [facility] Not Available 12/24/2024 17:32:07 11/23/19 25 11/23/2024 CBC W Auto Diffe renti al panel - Blood platelets [#/volume] in blood by automated count 346 K/uL low: 140K/u Lhigh: 350K/u L PLATE LETS 346 140 - 350 K/uL 11/23 4:11 AM 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[employer] [facility] Not Available Not Available 12/24/2024 17:32:07 11/23/19 25 11/23/2024 CBC W Auto Diffe renti al panel - Blood neutrophils 74 % NEUTR OPHIL S 74 % 11/23 4:11 AM [facility] Not Available Not Available 12/24/2024 17:32:07 11/23/19 25 11/23/2024 CBC W Auto Diffe renti al panel - Blood lymphocytes/ 100 leukocytes in blood by automated count 13 % LYMPH OCYTE S 13 % 11/23 4:11 AM [facility] Not Available Not Available 12/24/2024 17:32:07 11/23/19 25 11/23/2024 CBC W Auto Diffe renti al panel - Blood monocytes 10 % MONOC YTES 10 % 11/23 4:11 AM [facility] Not Available Not Available 12/24/2024 17:32:07 11/23/19 25 11/23/2024 CBC W Auto Diffe renti al panel - Blood eosinophils 2 % EOSIN OPHIL S 2 % 11/23 4:11 AM [facility] Not Available Not Available 12/24/2024 17:32:07 11/23/19 25 11/23/2024 CBC W Auto Diffe renti al panel - Blood basophils 1 % BASOP HILS 1 % 11/23 4:11 AM [facility] Not Available Not Available 12/24/2024 17:32:07 11/23/19 25 11/23/2024 CBC W Auto Diffe renti al panel - Blood immature granulocytes 1 % IMMAT URE GRANU LOCYT ES 1 % 11/23 4:11 AM [facility] Not Available Not Available 12/24/2024 17:32:07 11/23/19 25 11/23/2024 CBC W Auto Diffe renti al panel - Blood neutrophils [#/volume] in blood by automated count 7.09 K/uL low: 1.9K/u Lhigh: 7K/uL high NEUTR OPHIL ABSOL [place] 7.09 (H) 1.90 - 7.00 K/uL 11/23 4:11 AM [facility] Not Available Not Available 12/24/2024 17:32:07 11/23/19 25 11/23/2024 CBC W Auto Diffe renti al panel - Blood lymphocyte absolute 1.19 K/uL low: 0.7K/u Lhigh: 4.5K/u L LYMPH OCYTE ABSOL [place] 1.19 0.70 - 4.50 K/uL 11/23 4:11 AM [facility] Not Available Not Available 12/24/2024 17:32:07 11/23/19 25 11/23/2024 CBC W Auto Diffe renti al panel - Blood monocyte absolute 0.94 K/uL low: 0.1K/u Lhigh: 1.3K/u L MONOC YTE ABSOL [place] 0.94 0.10 - 1.30 K/uL 11/23 4:11 AM [facility] Not Available Not Available 12/24/2024 17:32:07 11/23/19 25 11/23/2024 CBC W Auto Diffe renti al panel - Blood eosinophil absolute 0.2 K/uL low: 0K/uLh igh: 0.7K/u L EOSIN OPHIL ABSOL [place] 0.20 0.00 - 0.70 K/uL 11/23 4:11 AM [facility] Not [facility] Not Available 12/24/2024 17:32:07 11/23/19 25 11/23/2024 CBC W Auto Diffe renti al panel - Blood basophils absolute 0.07 K/uL low: 0K/uLh igh: 0.2K/u L BASOP HILS ABSOL [place] 0.07 0.00 - 0.20 K/uL 11/23 4:11 AM [facility] Not [facility] Not Available 12/24/2024 17:32:07 11/23/19 25 11/23/2024 CBC W [employer]iffe [employer]i al panel - Blood immature granulocytes absolute 0.06 K/uL low: 0K/uLh igh: 0.03K/ uL high IMMAT URE GRANU LOCYT ES ABSOL [place] 0.06 (H) 0.00 - 0.03 K/uL 11/23 4:11 AM [facility] Not Available Not Available 12/24/2024 [...] - 145 mmol/ L 11/24 5:05 AM [facility] Not Available Not Available 12/24/2024 17:32:31 11/24/19 25 11/24/2024 Renal funct ion 1999 panel - Serum or Plasm a potassium [moles/volum e] in serum or plasma 4.3 mmol/ L low: 3.4mmo l/Lhig h: 5.1mmo l/L POTAS SIUM 4.3 3.4 - 5.1 mmol/ L 11/24 5:05 AM [facility] Not Available Not Available 12/24/2024 17:32:31 11/24/19 25 11/24/2024 Renal funct ion 1999 panel - Serum or Plasm a chloride 100 mmol/ L low: 98mmol /Lhigh : 107mmo l/L CHLOR BURT 100 98 - 107 mmol/ L 11/24 5:05 AM [facility] Not Available Not Available 12/24/2024 17:32:31 11/24/19 25 11/24/2024 Renal funct ion 1999 panel - Serum or Plasm a carbon dioxide, total [moles/volum e] in serum or plasma 24 mmol/ L low: 22mmol /Lhigh : 29mmol /L CO2 24 22 - 29 mmol/ L 11/24 5:05 AM [facility] Not Available Not Available 12/24/2024 17:32:31 11/24/19 25 11/24/2024 Renal funct ion 1999 panel - Serum or Plasm a calcium 9.1 mg/dL low: 8.6mg/ dLhigh : 10.4mg /dL CALCI UM 9.1 8.6 - 10.4 mg/dL 11/24 5:05 AM [facility] Not Available Not Available 12/24/2024 17:32:31 11/24/19 25 11/24/2024 Renal funct ion 1999 panel - Serum or Plasm a BUN 27 mg/dL low: 6mg/dL high: 20mg/d L high BUN 27 (H) 6 - 20 mg/dL 11/24 5:05 AM [facility] Not Available Not Available 12/24/2024 17:32:31 11/24/19 25 11/24/2024 Renal funct ion 1999 panel - Serum or Plasm a creatinine [mass/volume ] in serum or plasma 4.49 mg/dL low: 0.67mg /dLhig h: 1.17mg /dL high CREAT ININE 4.49 (H) 0.67 - 1.17 mg/dL 11/24 5:05 AM [facility] Not Available Not Available 12/24/2024 17:32:31 11/24/19 25 11/24/2024 Renal funct ion 1999 panel - Serum or Plasm a glucose [mass/volume ] in serum or plasma 71 mg/dL low: 74mg/d Lhigh: 99mg/d L low GLUCO SE 71 (L) 74 - 99 mg/dL 11/24 5:05 AM [facility] Not Available Not Available 12/24/2024 17:32:31 11/24/19 25 11/24/2024 Renal funct ion 1999 panel - Serum or Plasm a albumin 2.7 g/dL low: 3.5g/d Lhigh: 5.2g/d L low ALBUM IN 2.7 (L) 3.5 - 5.2 g/dL 11/24 5:05 AM [facility] Not Available Not Available 12/24/2024 17:32:31 11/24/19 25 11/24/2024 Renal funct ion 1999 panel - Serum or Plasm a phosphorus 2.8 mg/dL low: 2.5mg/ dLhigh : 4.5mg/ dL PHOSP HORUS 2.8 2.5 - 4.5 mg/dL 11/24 5:05 AM [facility] Not Available Not Available 12/24/2024 17:32:31 11/24/19 25 11/24/2024 Renal funct ion 1999 panel - Serum or Plasm a glomerular filtration rate/1.73 sq M.predicted [volume rate/area] in serum, plasma or blood by creatinine-b ased formula (CKD-epi 2020) 14 text: >=60 mL/min /1.73 sq meter low GFR 14 (L) >=60 mL/mi n/1.7 3 sq meter 11/24 5:05 AM [facility] Not Available Not Available 12/24/2024 17:32:31 11/24/19 25 11/24/2024 Renal funct ion 1999 panel - Serum or Plasm a anion gap 10 mmol/ L low: 8mmol/ Lhigh: 16mmol /L ANION GAP 10 8 - 16 mmol/ L 11/24 5:05 AM [facility] Not Available Not Available 12/24/2024 17:32:31 11/24/19 [...] 4.0 - 9.8 K/uL 11/24 5:01 AM [facility] Not Available Not Available 12/24/2024 17:32:07 11/24/19 25 11/24/2024 CBC panel - Blood by Autom ated count RBC 2.2 text: 4.50 - 5.40 M/uL low RBC 2.20 (L) 4.50 - 5.40 M/uL 11/24 5:01 AM [facility] Not Available Not Available 12/24/2024 17:32:07 11/24/19 25 11/24/2024 CBC panel - Blood by Autom ated count hemoglobin 7.3 g/dL low: 13.6g/ dLhigh : 16.5g/ dL low HEMOG LOBIN 7.3 (L) 13.6 - 16.5 g/dL 11/24 5:01 AM [facility] Not Available Not Available 12/24/2024 17:32:07 11/24/19 25 11/24/2024 CBC panel - Blood by Autom ated count hematocrit [volume fraction] of blood by automated count 22.7 % low: 40%hig h: 48% low HEMAT OCRIT 22.7 (L) 40.0 - 48.0 % 11/24 5:01 AM [employer] [facility] Not Available Not Available 12/24/2024 17:32:07 11/24/19 11/24/2024 CBC panel - Blood by Autom ated count MCV 103.2 fL low: 82fLhi gh: 99fL high MCV 103.2 (H) 82.0 - 99.0 fL 11/24 5:01 AM [facility] Not Available Not Available 12/24/2024 17:32:07 11/24/19 25 11/24/2024 CBC panel - Blood by Autom ated count MCH 33.2 pg low: 27.2pg high: 32.6pg high MCH 33.2 (H) 27.2 - 32.6 pg 11/24 5:01 AM [facility] Not Available Not Available 12/24/2024 17:32:07 11/24/1911/24/2024 CBC panel - Blood by Autom ated count MCHC 32.2 g/dL low: 31.5g/ dLhigh : 35.5g/ dL MCHC 32.2 31.5 - 35.5 g/dL 11/24 5:01 AM [facility] Not Available Not Available 12/24/2024 17:32:07 11/24/1911/24/2024 CBC panel - Blood by Autom ated count platelets [#/volume] in blood by automated count 332 K/uL low: 140K/u Lhigh: 350K/u L PLATE LETS 332 140 - 350 K/uL 11/24 5:01 AM [facility] Not Available Not Available 12/24/2024 17:32:07 11/24/19 25 11/24/2024 CBC panel - Blood by Autom ated count MPV 10.2 fL low: 9.3fLh igh: 12.4fL MPV 10.2 9.3 - 12.4 fL 11/24 5:01 AM [facility] Not Available Not Available 12/24/2024 17:32:07 11/24/19 25 11/24/2024 CBC panel - Blood by Autom ated count RDW 17.3 % low: 11.5%h igh: 14.5% high RDW 17.3 (H) 11.5 - 14.5 % 11/24 5:01 AM [facility] [facility] Not Available Not Available 12/24/2024 17:32:07 11/24/19 25 11/24/2024 CBC panel - Blood by Autom ated count RDW-stdev 65.5 fL low: 37.1fL high: 48.7fL high RDW-S TDEV 65.5 (H) 37.1 - 48.7 fL 11/24 5:01 AM [facility] Not Available Not Available 12/24/2024 [...] - 145 mmol/ L 11/25 5:27 AM [facility] Not Available Not Available 12/24/2024 17:32:31 11/25/19 25 11/25/2024 Renal funct ion 1999 panel - Serum or Plasm a potassium [moles/volum e] in serum or plasma 4.4 mmol/ L low: 3.4mmo l/Lhig h: 5.1mmo l/L POTAS SIUM 4.4 3.4 - 5.1 mmol/ L 11/25 5:27 AM [facility] Not Available Not Available 12/24/2024 17:32:31 11/25/19 25 11/25/2024 Renal funct ion 1999 panel - Serum or Plasm a chloride 97 mmol/ L low: 98mmol /Lhigh : 107mmo l/L low CHLOR BURT 97 (L) 98 - 107 mmol/ L 11/25 5:27 AM [facility] Not Available Not Available 12/24/2024 17:32:31 11/25/19 25 11/25/2024 Renal funct ion 1999 panel - Serum or Plasm a carbon dioxide, total [moles/volum e] in serum or plasma 24 mmol/ L low: 22mmol /Lhigh : 29mmol /L CO2 24 22 - 29 mmol/ L 11/25 5:27 AM [facility] Not Available Not Available 12/24/2024 17:32:31 11/25/19 25 11/25/2024 Renal funct ion 1999 panel - Serum or Plasm a calcium 9.7 mg/dL low: 8.6mg/ dLhigh : 10.4mg /dL CALCI UM 9.7 8.6 - 10.4 mg/dL 11/25 5:27 AM [facility] Not Available Not Available 12/24/2024 17:32:31 11/25/19 25 11/25/2024 Renal funct ion 1999 panel - Serum or Plasm a BUN 40 mg/dL low: 6mg/dL high: 20mg/d L high BUN 40 (H) 6 - 20 mg/dL 11/25 5:27 AM [facility] Not Available Not Available 12/24/2024 17:32:31 11/25/19 25 11/25/2024 Renal funct ion 1999 panel - Serum or Plasm a creatinine [mass/volume ] in serum or plasma 6.66 mg/dL low: 0.67mg /dLhig h: 1.17mg /dL high CREAT ININE 6.66 (H) 0.67 - 1.17 mg/dL 11/25 5:27 AM [facility] Not Available Not Available 12/24/2024 17:32:31 11/25/19 25 11/25/2024 Renal funct ion 1999 panel - Serum or Plasm a glucose [mass/volume ] in serum or plasma 101 mg/dL low: 74mg/d Lhigh: 99mg/d L high GLUCO SE 101 (H) 74 - 99 mg/dL 11/25 5:27 AM [facility] Not Available Not Available 12/24/2024 17:32:31 11/25/19 25 11/25/2024 Renal funct ion 2000 panel - Serum or Plasm a albumin 2.9 g/dL low: 3.5g/d Lhigh: 5.2g/d L low ALBUM IN 2.9 (L) 3.5 - 5.2 g/dL 11/25 5:27 AM [facility] Not Available Not Available 12/24/2024 17:32:31 11/25/19 25 11/25/2024 Renal funct ion 1999 panel - Serum or Plasm a phosphorus 4.1 mg/dL low: 2.5mg/ dLhigh : 4.5mg/ dL PHOSP HORUS 4.1 2.5 - 4.5 mg/dL 11/25 5:27 AM [facility] Not Available Not Available 12/24/2024 17:32:31 11/25/1911/25/2024 Renal funct ion 2000 panel - Serum or Plasm a glomerular filtration rate/1.73 sq M.predicted [volume rate/area] in serum, plasma or blood by creatinine-b ased formula (CKD-epi 2020) 9 text: >=60 mL/min /1.73 sq meter low GFR 9 (L) >=60 mL/mi n/1.7 3 sq meter 11/25 5:27 AM [facility] Not Available Not Available 12/24/2024 17:32:31 11/25/19 25 11/25/2024 Renal funct ion 2000 panel - Serum or Plasm a anion gap 12 mmol/ L low: 8mmol/ Lhigh: 16mmol /L ANION GAP 12 8 - 16 mmol/ L 11/25 5:27 AM [facility] Not Available Not Available 12/24/2024 17:32:31 11/25/19 25 11/25/2024 Renal funct ion 2000 panel - Serum or Plasm a interpretati on and review of laboratory results Abnorm al Not Available Not Available 17:32:31 11/26/19 25 11/26/2024 Renal funct ion 1999 panel - Serum or Plasm a sodium [moles/volum e] in serum or plasma 131 mmol/ L low: 136mmo l/Lhig h: 145mmo l/L low SODIU M 131 (L) 136 - 145 mmol/ L 11/26 6:35 AM [facility] Not Available Not Available 12/24/2024 17:32:07 11/26/19 25 11/26/2024 Renal funct ion 1999 panel - Serum or Plasm a potassium [moles/volum e] in serum or plasma 4.9 mmol/ L low: 3.4mmo l/Lhig h: 5.1mmo l/L POTAS SIUM 4.9 3.4 - 5.1 mmol/ L 11/26 6:35 AM [facility] [facility] Not Available Not Available 12/24/2024 17:32:07 11/26/19 25 11/26/2024 Renal funct ion 1999 panel - Serum or Plasm a chloride 96 mmol/ L low: 98mmol /Lhigh : 107mmo l/L low CHLOR BURT 96 (L) 98 - 107 mmol/ L 11/26 6:35 AM [facility] Not Available Not Available 12/24/2024 17:32:07 11/26/19 25 11/26/2024 Renal funct ion 1999 panel - Serum or Plasm a carbon dioxide, total [moles/volum e] in serum or plasma 21 mmol/ L low: 22mmol /Lhigh : 29mmol /L low CO2 21 (L) 22 - 29 mmol/ L 11/26 6:35 AM [facility] Not Available Not Available 12/24/2024 17:32:07 11/26/19 25 11/26/2024 Renal funct ion 1999 panel - Serum or Plasm a calcium 10.3 mg/dL low: 8.6mg/ dLhigh : 10.4mg /dL CALCI UM 10.3 8.6 - 10.4 mg/dL 11/26 6:35 AM [facility] Not Available Not Available 12/24/2024 17:32:07 11/26/19 25 11/26/2024 Renal funct ion 1999 panel - Serum or Plasm a BUN 53 mg/dL low: 6mg/dL high: 20mg/d L high BUN 53 (H) 6 - 20 mg/dL 11/26 6:35 AM [facility] Not Available Not Available 12/24/2024 17:32:07 11/26/19 25 11/26/2024 Renal funct ion 1999 panel - Serum or Plasm a creatinine [mass/volume ] in serum or plasma 7.72 mg/dL low: 0.67mg /dLhig h: 1.17mg /dL high CREAT ININE 7.72 (H) 0.67 - 1.17 mg/dL 11/26 6:35 AM [facility] Not Available Not Available 12/24/2024 17:32:07 11/26/19 25 11/26/2024 Renal funct ion 1999 panel - Serum or Plasm a glucose [mass/volume ] in serum or plasma 100 mg/dL low: 74mg/d Lhigh: 99mg/d L high GLUCO SE 100 (H) 74 - 99 mg/dL 11/26 6:35 AM [facility] Not Available Not Available 12/24/2024 17:32:07 11/26/19 25 11/26/2024 Renal funct ion 1999 panel - Serum or Plasm a albumin 3.3 g/dL low: 3.5g/d Lhigh: 5.2g/d L low ALBUM IN 3.3 (L) 3.5 - 5.2 g/dL 11/26 6:35 AM [facility] Not Available Not Available 12/24/2024 17:32:07 11/26/19 25 11/26/2024 Renal funct ion 1999 panel - Serum or Plasm a phosphorus 4.5 mg/dL low: 2.5mg/ dLhigh : 4.5mg/ dL PHOSP HORUS 4.5 2.5 - 4.5 mg/dL 11/26 6:35 AM 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[employer] [facility] Not Available Not Available 12/24/2024 17:32:07 11/26/19 25 11/26/2024 Renal funct ion 2000 panel - Serum or Plasm a glomerular filtration rate/1.73 sq M.predicted [volume rate/area] in serum, plasma or blood by creatinine-b ased formula (CKD-epi 2020) 7 text: >=60 mL/min /1.73 sq meter low GFR 7 (L) >=60 mL/mi n/1.7 3 sq meter 11/26 6:35 AM 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[facility] Not Available Not Available 12/24/2024 17:32:07 11/26/19 25 11/26/2024 Renal funct ion 2000 panel - Serum or Plasm a anion gap 14 mmol/ L low: 8mmol/ Lhigh: 16mmol /L ANION GAP 14 8 - 16 mmol/ L 11/26 6:35 AM 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[employer] [facility] Not Available Not Available 12/24/2024 [...] [facility]ULTU RE SEE [facility] Not Available 12/24/2024 17:31:57 12/19/19 25 12/24/2024 Bacte shaneka ident ified in Speci men by Anaer obe+A erobe cultu re bacteria identified in specimen by aerobe culture SEE NOTE abnormal AEROB IC CULTU RE SEE NOTE (A) [facility] Not Available Not Available 12/24/2024 17:31:57 12/19/19 [...] Abnorm al Not Available Not Available 15:55:06 02/06/20 25 02/06/2025 LIPID PANEL WITH LDL/H DL RATIO cholesterol, total 109 mg/dL 100-19 9 Not Available [facility] ([facility]) [address] [place], [address], 02/06/2025 09:07:46 02/06/20 25 02/06/2025 LIPID PANEL WITH LDL/H DL RATIO triglyceride s 92 mg/dL 0-149 Not Available [facility] ([facility]) [address] [place], [address], 02/06/2025 09:07:46 02/06/20 25 02/06/2025 LIPID PANEL WITH LDL/H DL RATIO HDL cholesterol 62 mg/dL >39 Not Available [facility] ([facility]) [address] [place], [address], 02/06/2025 09:07:46 02/06/20 25 02/06/2025 LIPID PANEL WITH LDL/H DL RATIO VLDL cholesterol cornelio 18 mg/dL 5-40 Not Available [facility] ([facility]) [address] [facility], [place], [address], 02/06/2025 09:07:46 02/06/20 25 02/06/2025 LIPID PANEL WITH LDL/H DL RATIO LDL chol calc ([facility]) 29 mg/dL 0-99 Not Available [facility] ([facility]) [address] [facility], [place], [address], 02/06/2025 09:07:46 02/06/20 25 02/06/2025 LIPID PANEL WITH LDL/H DL RATIO LDL/HDL ratio 0.5 ratio 0.0-3. 6 LDL/H DL Ratio Men Women 1/2 Avg.R isk 1.0 1.5 Avg.R isk 3.6 3.2 2X Avg.R isk 6.2 5.0 3X Avg.R isk 8.0 6.1 Not Available [facility] ([facility]) [address] [facility], [place], [address], 02/06/2025 09:07:46 02/06/20 25 02/06/2025 HEMOG LOBIN A1C hemoglobin A1C 4.4 % 4.8-5. 6 below low normal Predi abete s: 5.7 - 6.4 Diabe daniel: >6.4 Glyce david contr ol for adult s with diabe daniel: <7.0 Not Available [facility] ([facility]) [address] [facility], [place], [address], 02/06/2025 09:07:48 12/06/19 23 12/05/2022 XR, chest , 2 view No observ ation record ed. [address], [address], 12/06/2022 11:38:43 03/06/20 23 03/06/2023 CT, abdom en + pelvi s, w/o contr ast No observ ation record ed. [address], [address], 03/06/2023 12:46:38 05/25/20 23 05/23/2023 PET, skull base to mid-t high No observ ation record ed. [address], [place], [address], 06/13/2023 11:37:40 06/15/20 23 06/14/2023 ct guide d needl e biops y (PROC ) No observ ation record ed. [address], [place], [address], 06/15/2023 11:13:30 06/22/20 23 06/21/2023 XR, chest , 2 view No observ ation record ed. [address], [place], [address], 06/23/2023 10:57:46 10/26/19 24 10/25/2023 lab* No observ ation record ed. [address], [place], [address], 10/26/2023 11:54:38 10/26/19 24 10/25/2023 lab* No observ ation record ed. [address], [place], [address], 10/26/2023 11:54:45 10/26/19 24 10/25/2023 lab* No observ ation record ed. [address], [place], [address], 10/26/2023 11:54:52 11/03/19 24 10/25/2023 US, echoc ardio gram, trans thora cic, compl ete, w/ color flow No observ ation record ed. [address], [place], [address], 11/03/2023 15:21:02 02/27/20 24 02/27/2024 CT, chest , w/o contr ast No observ ation record ed. [address], [place], [address], 02/28/2024 10:32:32 06/07/20 24 05/16/2024 cole r monit or No observ ation record ed. [facility] Not Available 2023 14:40:16 09/04/20 24 09/03/2024 CT, chest + abdom en + pelvi s, w/o contr ast No observ ation record ed. [address], [place], [address], 09/04/2024 16:33:27 09/17/20 24 09/17/2024 XR, chest , 2 view No observ ation record ed. [address], [place], [address], 09/19/2024 19:04:41 11/05/19 25 11/05/2024 PET, skull base to mid-t high No observ ation record ed. [address], [place], [address], 11/06/2024 13:13:38 11/09/19 25 11/09/2024 XR, foot, 3 or more view No observ ation record ed. [address], [place], [address], 11/19/2024 17:24:11 11/10/19 25 11/09/2024 XR, foot, 2 view No observ ation record ed. [address], [place], [address], 11/19/2024 17:24:12 11/10/19 25 11/10/2024 MRI, ankle + foot, w/o contr ast No observ ation record ed. [address], [place], [address], 11/19/2024 17:24:12 01/08/20 25 01/07/2025 ct guide d needl e biops y (PROC ) No observ ation record ed. [facility] [address], [place], [address], 01/07/2025 17:03:56 Result Notes None recorded. Problems Name Problem SNOMED Code Status Onset Date Resolution Date Notes Provider Name and Address Organization Details Recorded Time Irregular heart beat 614692196 Active 2019 Tatianna Frank [place] null, [place] [facility] 0 15:31:42 Bilateral hearing loss 73650155 Active 2021 INGE [facility]T Attn: Hema chery,[address] [place], [address], [place] [facility] 2 10:54:39 Renal cell carcinoma 734348791 Active 2021 Right, found 04/26/22 INGE [facility]ACKETT Attn: Hema chery,[address] [facility], [place], [address], [place] [facility] 3 10:05:14 Essential hypertensi on 57915220 Active 2021 INGE HACKETT Attn: Hema chery,[address] [facility], [place], [address], [place] [facility] 2 10:57:01 Tobacco dependence syndrome 87362560 Active 2021 INGE HACKETT Attn: Hema chery,[address] [facility], [place], [address], [place] [facility] 2 13:06:45 Alcohol dependence 50781866 Active 2021 INGE HACKETT Attn: Hema chery,[address] [facility], [place], [address], [place] [facility] 2 13:06:52 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 049874038 Active 2021 INGE HACKETT Attn: Hema chery,[address] [facility], [place], [address], [place] [facility] 2 11:31:07 Umbilical hernia 040906587 Active 2021 INGE HACKETT Attn: Hema chery,[address] [facility], [place], [address], [place] [facility] 2 11:06:26 Excision of right kidney Active 2021 removed 05/10/22 INGE [facility]ACKETT Attn: Nevinmargarita chery,[address] [facility], [place], [address], [place] [facility] 2 21:09:42 Neuropathy 896915404 Active 2021 INGE HACKETT Attn: Hema miri,[address] [facility], [place], [address], [place] [facility] 2 18:40:51 Chronic neck pain 571441380966 7 Active 2021 INGE HACKETT Attn: Hema miri,[address] [facility], [place], [address], [place] [facility] 2 18:41:02 Chronic kidney disease stage 5 990109803 Active 2021 INGE HACKETT Attn: Nevinmargarita chery,[address] [facility], [place], [address], [place] [facility] 2 21:12:11 Screening for malignant neoplasm of colon Active 2022 due for repeat 2025 INGE HACKETT Attn: Hema miri,[address] [facility], [place], [address], [place] [facility] 3 14:56:10 End-stage renal disease 38129138 Active 2023 INGE [facility]ACKETT Attn: Hema miri,[address] [facility], [place], [address], [place] [facility] 4 17:24:47 Problem Notes None recorded. Procedures Surgical History None recorded. Imaging Results Imaging Date Name Status LastModified by [facility] Details LastModified Time 12/05/2022 XR, chest, 2 view completed [address], [place], [address], 12/06/2022 11:38:43 03/06/2023 CT, abdomen + pelvis, w/o contrast completed [address], [place], [address], 03/06/2023 12:46:38 05/23/2023 PET, skull base to mid-thigh completed [address], [place], [address], 06/13/2023 11:37:40 06/14/2023 ct guided needle biopsy (PROC) completed [address], [place], [address], 06/15/2023 11:13:30 06/21/2023 XR, chest, 2 view completed [address], [place], [address], 06/23/2023 10:57:46 10/25/2023 lab* completed [email or web address], [place], [address], 10/26/2023 11:54:38 10/25/2023 [facility] [address], [place], [address], 10/26/2023 11:54:45 10/25/2023 lab[email or web address] [address], [place], [address], 10/26/2023 11:54:52 10/25/2023 US, echocardiogra m, transthoracic , complete, w/ color flow completed [address], [place], [address], 11/03/2023 15:21:02 02/27/2024 CT, chest, w/o contrast completed [address] [facility], [place], [address], 02/28/2024 10:32:32 05/16/2024 holter monitor completed [facility] Information not available 06/07/2024 14:40:16 09/03/2024 CT, chest + abdomen + pelvis, w/o contrast completed [address] [facility], [place], [address], 09/04/2024 16:33:27 09/17/2024 XR, chest, 2 view [address], [address], 09/19/2024 19:04:41 11/05/2024 PET, skull base to mid-thigh completed [address], [address], 11/06/2024 13:13:38 11/09/2024 XR, foot, 3 or more view completed [address] [address], [place], [address], 11/19/2024 17:24:11 11/09/2024 XR, foot, 2 view completed [address] [address], [place], [address], 11/19/2024 17:24:12 11/10/2024 MRI, ankle + foot, w/o contrast completed [address], [address], 11/19/2024 17:24:12 01/07/2025 ct guided needle biopsy (PROC) completed [address], [address], 01/07/2025 17:03:56 Procedure Notes None recorded. Medical [...] route in the morning for 90 days. active Not Available Not Available No t Available lisinopril 20 mg tablet TAKE 1 TABLET [...] TAKE 1 TABLET BY MOUTH EVERY DAY FOR 90 DAYS 2024 active Not Available Not Available Not Avai lable cephalexin 500 mg capsule TAKE 1 CAPSULE [...] Available Not Available hydralazine 50 mg tablet Take 1 tablet twice a day by oral route as directed for 90 days. 2024 active Not Available Not Available Not Avai lable furosemide 20 mg tablet Take 1 tablet every day by oral route in the morning for 90 days. 2024 active Not Available Not Available Not Avai lable amoxicillin 875 mg-potassiu m clavulanate 125 mg tablet TAKE 1 TABLET BY MOUTH EVERY 12 HOURS FOR 10 DAYS 02/05 completed Not Available Not Available Not Available Vitamin B1 100 mg tablet Take [...] Updated DateTime 3 182.88 cm 29.2 kg/m2 70444.7 6 g 95 % 95 % 74 /min 16 /min 97.5 [degF] 140 mm[Hg] 74 mm[Hg] Cammy Nieves CMA [facility] SI 10:59:30 Date Recorded Systolic blood pressure Diastolic blood pressure Provider Name and Address Organization Details Last Updated DateTime 12/19/2022 138 mm[Hg] 70 mm[Hg] INGE HACKETT Attn: Accounting, [place], [address], [facility] 12/19/2022 11:24:43 Date Recorded Body height Body mass index (BMI) Body weight Oxygen saturation Oxygen saturation in Arterial blood by Pulse oximetry Heart rate Body temperature Systolic blood pressure Diastolic blood pressure Provider Name and Address Organization Details Last Updated DateTime 3 182.88 cm 29.3 kg/m2 51599.3 5 g 98 % 98 % 72 /min 98.3 [degF] 165 mm[Hg] 72 mm[Hg] Cammy Nieves CMA [facility] SI 10:06:40 Date Recorded Respiratory rate Systolic blood pressure Diastolic blood pressure Provider Name and Address Organization Details Last Updated DateTime 06/13/2023 18 /min 150 mm[Hg] 72 mm[Hg] INGE HACKETT Attn: Accounting, [address] [place], [address], [facility] 06/13/2023 10:32:42 Date Recorded Body height Body mass index (BMI) Body weight Oxygen saturation Oxygen saturation in Arterial blood by Pulse oximetry Heart rate Systolic blood pressure Diastolic blood pressure Provider Name and Address Organization Details Last Updated DateTime 3 182.88 cm 27.5 kg/m2 47540.2 5 g 98 % 98 % 65 /min 179 mm[Hg] 73 mm[Hg] Cathi Coyle MA [facility] 11:07:12 Date Recorded Respiratory rate Systolic blood pressure Diastolic blood pressure Provider Name and Address Organization Details Last Updated DateTime 08/04/2023 18 /min 140 mm[Hg] 70 mm[Hg] INGE HACKETT Attn: Accounting, [address] [place], [address], [facility] 08/04/2023 11:31:36 Date Recorded Body height Body mass index (BMI) Body weight Oxygen saturation Oxygen saturation in Arterial blood by Pulse oximetry Heart rate Respiratory rate Systolic blood pressure Diastolic blood pressure Provider Name and Address Organization Details Last Updated DateTime 5 182.88 cm 26.7 kg/m2 73143.7 g 96 % 96 % 102 /min 20 /min 125 mm[Hg] 78 mm[Hg] Opal Pugh MA [facility] 16:45:31 Date Recorded Heart rate Provider Name an d Address Organization Details Last Updated DateTime 12/24/2024 90 /min INGE HACKETT Attn: Accounting,[address] [facility], [place], [address], [facility] 12/30/2024 09:11:19 Date Recorded Body height Body mass index (BMI) Body weight Oxygen saturation Oxygen saturation in Arterial blood by Pulse oximetry Heart rate Respiratory rate Systolic blood pressure Diastolic blood pressure Provider Name and Address Organization Details Last Updated DateTime 5 182.88 cm 27.2 kg/m2 08455.8 7 g 96 % 96 % 67 /min 17 /min 135 mm[Hg] 71 mm[Hg] Jemima Larios MA [facility] 15:02:44 Social History Question Answer Notes LastModified by Organizat ion Details LastModified Time Tobacco Smoking Status Current Every Day Smoker Tatianna Frank MA null, [facility] 12/28/2020 16:47:06 What Is Your Level Of [...] Date Of Your Most Recent Tobacco Screening? 02/05/2025 Information not available 02/05/2025 What Is Your Current Pack Years? [email or web address] [...] What Date Was Tobacco Cessation Counseling Provided? 02/05/2025 Information not available 02/05/2025 How Many Years Have You Smoked Tobacco? [...] N High Cholesterol N Liver Disease N Headaches N Schizophrenia N Kidney or Bladder Problems N Thyroid Problems N GI Problems N Eating Disorder N Skin Problems N Anemia N Heart Attack ([place]) N Diabetes N Seizures/Epilepsy N Asthma N Allergies N Substance Abuse N Hepatitis N Osteoporosis N Heart Failure N Immunizations Vaccine Type Date Status Note Provider Nam e and Address Organization Details Recorded Time Tdap 2 completed Cammy Nieves [employer] [place], [place] [facility] 10/24/2022 10:25:47 SARS-COV-2 [...] 3 completed INGE [facility]ETT Attn: Accounting,[address] [place], [address], [place] [facility] 10/24/2022 13:53:49 Pneumococcal conjugate PCV20, polysaccharide LHQ316 conjugate, adjuvant, PF 3 completed INGE [facility]ACK[facility]T Attn: Accounting,[address] [place], [address], [place] [facility] 10/24/2022 13:53:49 Influenza, split virus, quadrivalent, PF 3 completed INGE HACKETT Attn: Accounting,[address] [place], [address], [place] [facility] 08/04/2023 12:34:19 Past Encounters Encounter ID Performer Location Encounter Start Date Encounter Closed Date Diagnosis/Indication Diagnosis SNOMED-CT Code Diagnosis ICD10 Code Diagnosis Note [id number] Bev Chandler MD [facility] [address] [place] [address] 02/18/2020 11:32:38 02/24/2020 06:10:37 Essential hypertension 72103102 I10 174/117, pulse 145; patient was asked to call us with follow up blood pressure next week. [id number] Bev Chandler MD [facility] [address] [place] [address] 12/28/2020 08:09:29 12/31/2020 10:17:06 Essential hypertension 76228188 I10 174/117, pulse 145; patient was asked to call us with follow up blood pressure next week. Adult heal th examination 618929956 Z00.00 [id number] INGE HACKETT [facility] [address] [place] [address] 12/28/2021 13:45:33 12/29/2021 10:48:07 Essential hypertension 91985047 I10 routine labspt taking lasix, unsure of why he is takingwill check kidney function today to see if can dc Screening for malignant neoplasm of colon 231754617 Z12.11 constipati on occurs every 2-3 daysno blood in stoolshas not had colon cancer screeningd iscussed cologuard vs colonoscop ysent for GI consult with colonoscop lizbeth d increasing fluid intake, high fiber foods Neuropathy 377721953 G62 .9 chronic to bilateral feet x30 yrsdecreas ed sensation to ball of right foot up to toes and unable to feel sensation from ball of L foot up to toesEMG Onychomyco sis of toenails 677488826 B35.1 severe to all toespodiat ry referral Depression screening 171 558235 Z13.31 PHQ 0 Pre-surger y evaluation 786840911 Z01.818 cataract surgery scheduled 03/07/22eva l has to be completed no more than 30 days before surgeryadv ised pt to f/u in 6 wks to complete form [id number] INGE HACKETT [facility] [address] [place] [address] 02/21/2022 09:43:49 02/22/2022 10:28:59 Pre-surgery evaluation 261048611 Z01.818 02/21/22: cataract surgery scheduled 03/07/22PEx - nlcomplete d medical clearance form and faxed 12/28/21:ca taract surgery scheduled 03/07/22eva l has to be completed no more than 30 days before surgeryadv ised pt to f/u in 6 wks to complete form Essential hypertension [id number] I10 02/21/22: BP controlled todayno med changesreq uested records from nephrology and urology 12/30/21: Cr 2.79- advised pt of lab results, CKD stage 4 and rec'd pt go to hospital. he was amendable to go to [facility] 12/28/21:[place] labspt taking lasix, unsure of why he is takingwill check kidney function today to see if can dc Neuropathy [id number] G62 .9 02/21/22:pt has upcoming EMGs scheduled 12/28/21:ch ronic to bilateral feet x30 yrsdecreas ed sensation to ball of right foot up to toes and unable to feel sensation from ball of L foot up to toesEMG Onychomyco sis of toenails 162991340 B35.1 02/21/22:turner nted off referral and encouraged pt to call to schedule appt 12/28/21:se kathy to all toespodiat ry referral Screening for malignant neoplasm of colon 949599824 Z12.11 02/21/22: pt reports constipati on has [...] foods Chronic ki dney disease stage 4 600038886 N18.4 Cr 2.79follow ing with Dr. Mcnulty (Nephrolog y) and Dr. Collins (Urology)M RI showed 6.1 cm mass to R kidney consistent with renal cell carcinomap t states that he is waiting to see if kidney function improves, if not he will have to go on dialysis or have R kidney removedreq uested records [id number] INGE HACKETT [facility] [address] [place] [address] 04/26/2022 10:13:50 04/27/2022 10:16:08 Chronic kidney disease stage 4 330118828 N18.4 05/10/22: R nephrectom y on 05/10/[address] Mayberry (Urology [facility])follow ing with Dr. Mcnulty (Nephrolog [...] R kidney removedreq uested records Essential hypertension 10911844 I10 04/26/22: BP 166/86did not take BP medication s yethas been out of meds x5 dayswill refill, hold lasix 02/21/22: BP controlled todayno med changesreq uested records from nephrology and urology 12/30/21: Cr 2.79- advised pt of lab results, CKD stage 4 and rec'd pt go to hospital. he was amendable to go to [facility] 12/28/21:[place]a [place] labspt taking lasix, unsure of why he is takingwill check kidney function today to see if can dc Neuropathy [id number] G62 .9 04/26/22:do ne 04/14/22wil l request records 02/21/22:pt has upcoming EMGs scheduled 12/28/21:ch ronic to bilateral feet x30 yrsdecreas ed sensation to ball of right foot up to toes and unable to feel sensation from ball of L foot up to toesEMG Umbilical hernia 8140607 07 K42.9 PEx- non-reduci ble, non-tender , not strangulat edremoval 05/10/[address] Benjamin Bilateral hearing loss 22606833 H91.93 c/o chronic tinnitushe ars mumbling when in conversati ons with multiple people, hard to focus hearingfam felecia told him he has hearing issuesPEx- bilateral EACs clear, TMs nlwill order hearing screen at f/u Depression screening 171 776856 Z13.31 PHQ 0 Renal cell carcinoma 702 016064 C64.9 MRI showed 6.1 cm mass to R kidney consistent with renal cell carcinomaR nephrectom y on 05/10/22 [id number] Darci milner MD [facility] [address] [place] [address] 05/25/2022 11:41:52 05/26/2022 13:24:04 Renal cell carcinoma 062899016 C64.9 05/25/22: pt reports surgery went wellpathol ogy study showed 7.5 cm renal cell carcinoma, R nephrectom y, all margins negative for invasive carcinomah as f/u with surgeon tomorrow 04/26/22:MR I showed 6.1 cm mass to R kidney consistent with renal cell carcinomaR nephrectom y on 05/10/22 Chronic ki dney disease stage 4 138428009 N18.4 05/26/22:sp marzena with Kaya Shahid, pt's [...] R kidney removedreq uested records Essential hypertension 58197665 I10 05/25/22:ca n take ASA for primary [...] hospital. he was amendable to go to [facility] 12/28/21:[place]a [place] labspt taking lasix, unsure of why he is takingwill check kidney function today to see if can dc Umbilical hernia 3368214 07 K42.9 05/25/22:merchant d f/u with surgeon yesterday, mesh is in place, minor swelling, not concerned 04/26/22:PE x- non-reduci ble, non-tender , not strangulat edremoval 05/10/[address] Benjamin Neuropathy 296402577 G62 .9 05/25/22:EM G showed severe motor [...] foot up to toesEMG Bilateral hearing loss 19325697 H91.93 05/25/22:re georges for hearing screenprin madie off referral and encouraged pt to call to schedule appt 04/26/22:c/ o chronic tinnitushe ars mumbling when in conversati ons with multiple people, hard to focus hearingfam felecia told him he has hearing issuesPEx- bilateral EACs clear, TMs nlwill order hearing screen at f/u Depression screening 171 312801 Z13.31 PHQ 0 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 399755230 M21.6X9 05/26/22:di scussed results with pt and sisterXR L foot showed hypertroph ic bony fusion at 1st MTP joint, arterial calcificat ionspt denies any pain or issues with walkingwil l refer to podiatry 05/25/22:L MTP joint enlarged, unable to extend L big toeno pain Chronic neck pain 664044 8283 107 M54.2 05/16/22: discussed results with pt [...] spineorder ed XR C spine Alcohol dependence 95956 003 F10.20 drinking 1 pint of cheap vodka per day x3 yrsstopped 2 [address] to [address] is requesting medication to help with withdrawal sxdiscusse d that pt is not showing withdrawal symptoms, out of withdrawal window at this timeoffere d outpatient treatment, pt refused at this time [id number] INGE HACKETT [facility] [address] [place] [address] 06/24/2022 09:46:21 06/28/2022 10:02:50 Essential hypertension 31684546 I10 06/24/22:BP check 132/74BP at home 120s-150s/ [...] hospital. 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 he was amendable to go to [facility] 12/28/21:casa [place] labspt taking lasix, unsure of why he is takingwill check kidney function today to see if can dc Bilateral hearing loss 96071473 H91.93 07/01/22:sp marzena with audiologis t who completed [...] TMs nlwill order hearing screen at f/u [id number] INGE HACKETT [facility] [address] [place] [address] 08/15/2022 10:51:52 08/16/2022 12:08:52 Essential hypertension 86797790 I10 08/15/22: BP 138/84took meds 1 hour [...] hospital. he was amendable to go to [facility] 12/28/21:[place]a [place] labspt taking lasix, unsure of why he is takingwill check kidney function today to see if can dc Neuropathy 702312758 G62 .9 08/15/22: neuro told pt, neuropathy is likely due to alcohol useDrJennyfer Alegria at [place] (Neurology ), did blood work, pt has [...] foot up to toesEMG Chronic neck pain 920977 4707 107 M54.2 08/15/22:n euro told pt not [...] ed XR C spine Bilateral hearing loss 16112031 H91.93 08/15/22:i nsurance will not cover hearing aideshas appt to get fitted for hearing aides tomorrow at [facility] ate he has to buy hearing aides OTC [...] order hearing screen at f/u Alcohol dependence 12992 003 F10.20 08/15/22:4 ounces/day trying to cut [...] time Chronic ki dney disease stage 5 693931851 N18.5 08/15/22:S aw nephro 08/02/22:h old KERI/ARB given severity of CKD and K, low protein dietdiscus sed low protein/lo w potassium dietrefer to Vascular surgery for vein mapping, pt wants to do peritoneal dialysisha s appt on 09/02/22 at [facility] 07/01/22:co mpleted kidney smart classfollo wing with [...] removedreq uested records Tobacco de pendence syndrome 29991648 F17.200 1/2 ppd currentlyw as smoking 1.5 ppd to 2 ppd before kidney surgerytri al nicotine patches Chronic ki dney disease stage 4 216465370 N18.4 07/01/22:co mpleted kidney smart classfollo wing with nephrology Cr 4.44, eGFR 14- unchanged since 05/2022 labs 05/26/22:sp marzena with Kaya Shahid, pt's sister at 11:15 AMPt's Cr 5.5 and eGFR is 12, she is waiting for call back from Dr. Argentina frederick pt he will need to go to [...] or have R kidney removedreq uested records [id number] INGE HACKETT [facility] [address] [place] [address] 10/24/2022 09:47:18 10/26/2022 09:28:07 Chronic kidney disease stage 5 034737526 N18.5 10/24/22:fis xiao R forearm, placed 09/20/22not [...] peritoneal dialysisha s appt on 09/02/22 at [place] 07/01/22:co mpleted kidney smart classfollo wing with [...] R kidney removedreq uested records Essential hypertension 21995664 I10 10/24/22:BP 128/72refi ll meds 08/15/22:B P [...] hospital. he was amendable to go to [facility] 12/28/21:ro utine labspt taking lasix, unsure of why he is takingwill check kidney function today to see if can dc Bilateral hearing loss 22313698 H91.93 10/24/22:rec 'd hearing aide to L ear 08/15/22:i nsurance will not cover hearing aideshas appt to get fitted for hearing aides tomorrow at [facility] ate he has to buy hearing aides OTC [...] nlwill order hearing screen at f/u Neuropathy 299738195 G62 .9 10/24/22:has f/u in 1 mo 08/15/22: neuro told pt, neuropathy is likely due to alcohol useDrJennyfer Alegria at [place] (Neurology ), did blood work, pt has [...] up to toesEMG Tobacco de pendence syndrome 37402852 F17.200 10/24/22:unk nown if can try wellbutrin due to CKDover 1/2 ppd 08/15/22:1 /2 ppd currentlyw as smoking 1.5 ppd to 2 ppd before kidney surgerytri al nicotine patches Alcohol dependence 99932 003 F10.20 10/24/22:sti ll drinking 4 ounces/day [...] this time Administra tion of influenza vaccine 06891763 Z23 Screening for malignant neoplasm of colon 592530409 Z12.11 10/24/22:ref er for colonoscop y 02/21/22: [...] increasing fluid intake, high fiber foods Overweight 860867417 E66 .3 discussed increasing exercise and healthier food options Depression screening 171 744482 Z13.31 PHQ 0 [id number] INGE HACKETT [facility] [address] [place] [address] 12/19/2022 10:53:06 12/19/2022 11:28:41 Chronic kidney disease stage 5 175446120 N18.5 12/19/22:rob d trying to hold off [...] peritoneal dialysisha s appt on 09/02/22 at [facility] 07/01/22:co mpleted kidney smart classfollo wing with [...] R kidney removedreq uested records Essential hypertension 34486946 I10 12/19/22:BP 138/70 10/24/22:BP 128/72refi ll meds [...] hospital. he was amendable to go to [facility] 12/28/21:[place] labspt taking lasix, unsure of why he is takingwill check kidney function today to see if can dc Tobacco de pendence syndrome 16761997 F17.200 12/19/22:has n't tried yet wellbutrin encouraged to trial for smoking cessation 10/24/22:unk nown if can try wellbutrin due to CKDover 1/2 ppd 08/15/22:1 /2 ppd currentlyw as smoking 1.5 ppd to 2 ppd before kidney surgerytri al nicotine patches Alcohol dependence 79059 003 F10.20 12/19/22:unc hangedrefu sed outpatient tx [...] time Screening for malignant neoplasm of colon 694504822 Z12.11 12/19/22:com pleted 11/14/22, repeat in 3 [...] increasing fluid intake, high fiber foods Fatigue 16489159 R53.83 x1 motakes daily Vit N0slfuxkq 6 days/weeks tarted lasix 2 wks ago and waking up 3x/nightSO B worse with laying flat and with exertionde scribes as tired gai daysi 8 lbs in 1 moPEx- nlcheck vitamins and probnpUS echo Depression screening 171 755630 Z13.31 PHQ 0 [id number] INGE HACKETT [facility] [address] [place] [address] 06/13/2023 09:57:00 06/15/2023 12:25:24 Chronic kidney disease stage 5 357916548 N18.5 06/13/23:st ill holding off on dialysisha s f/u with Dr. Mcnulty in 3 monthslabs 05/30/23: Cr 6.7, eGFR 8 12/19/22:rob d trying to hold off on dialysis as long as possiblest arted back on lasix due to swelling in his legshas f/u with [facility]ulty in [facility] 10/24/22:fis xiao R [...] peritoneal dialysisha s appt on 09/02/22 at [place] 07/01/22:co mpleted kidney smart classfollo wing with [...] removedreq uested records Tobacco de pendence syndrome 74750752 F17.200 06/13/23:1 ppdwellbut rin caused testicles to swellpatch es make him itchnot ready to quit 12/19/22:has n't tried yet wellbutrin encouraged to trial for smoking cessation 10/24/22:unk nown if can try wellbutrin due to CKDover 1/2 ppd 08/15/22:1 /2 ppd currentlyw as smoking 1.5 ppd to 2 ppd before kidney surgerytri al nicotine patches Alcohol dependence 30674 003 F10.20 06/13/23:dr muse 2 ounces of [...] pt refused at this time Essential hypertension 11285314 I10 06/13/23:BP 150/70took meds 1 hr agoadvised [...] hospital. he was amendable to go to [facility] 12/28/21:ro utine labspt taking lasix, unsure of why he is takingwill check kidney function today to see if can dc Pelvic lymphadenopathy 370853038 R59.0 found on PET scan 05/23/23:non -specific mild L pelvic LAD, prostatome daija with small focus of asymmetric increased uptake at posterior left prostate, correlate with PSA level, cholelithi asis, unchanged 5.1 cm infrarenal AAAfollowi ng with Oncologyha s another scan tomorrow Diarrhea 17193009 R19.7 x1 trevon the morning and at nightinter mittentlkarina seno concerning sxno new foods or medsPEx- nl- Increase your fluid intake to replace losses.- BRAT diet- trial anti-diarr heal and foods that bulk stools- Avoid milk, greasy foods and anything that doesn t agree with youif symptoms do not improve in 2 wks, make f/u appt, will refer to GI Depression screening 171 677982 Z13.31 PHQ 0 [id number] INGE HACKETT [facility] [address] [place] [address] 08/04/2023 10:47:09 08/14/2023 11:09:17 Chronic kidney disease stage 5 064260612 N18.5 08/04/23:s till holding off on dialysisha [...] R kidney removedreq uested records Essential hypertension 79001200 I10 08/04/23:B P 179/73, 140/70take s meds [...] hospital. he was amendable to go to [facility] 12/28/21:[place] labspt taking lasix, unsure of why he is takingwill check kidney function today to see if can dc Depression screening 171 678186 Z13.31 PHQ 0 Pelvic lymphadenopathy 020035459 R59.0 08/04/23:p er patient- biopsy was negativere peat CT scan Oct 2023 and f/u with oncology in Nov 2023 06/13/23:fo und on PET scan 05/23/23:non -specific mild L pelvic LAD, prostatome daija with small focus of asymmetric increased uptake at posterior left prostate, correlate with PSA level, cholelithi asis, unchanged 5.1 cm infrarenal AAAfollowi ng with Oncologyha s another scan tomorrow Alcohol dependence 31305 003 F10.20 08/04/23:w ants to quitdoes not [...] at this time Tobacco de pendence syndrome 74028543 F17.200 08/04/23:1 /2 ppd to 1 ppd since age 13discusse d munira, not ready to quitPET scan 05/2023: no [...] nicotine patches Administra tion of influenza vaccine 53421828 Z23 [id number] INGE HACKETT [facility] [address] [place] [address] 12/24/2024 16:36:09 12/24/2024 17:18:59 End-stage renal disease 46370541 N18.6 refill [facility] [place], Brittany, Sat Smoker 44537438 F17.200 still smoking 1/2 ppd Essential hypertension 55543759 I10 BP 125/78refi ll meds Hyperlipidemia 18433322 E78.5 refill Chronic ob structive pulmonary disease 46023370 J44.9 refill Hospital i npatient stay within past 30 days 2722154908 106 Z76.89 Admitted to [facility] in [place] 10/24/24 to 11/26/24 To micah Lakesha Sloan is a 64 y.o. male with a pertinent history significan t for ESRD on HD TTS, AAA, DVT, persistent A-fib, HTN, adrenal mass/pulmo nary nodules, renal cell carcinoma, peripheral vascular disease, who presented with initially to outside hospital ([facility]) for evaluation of necrotic left foot. Due to gangrene of the left foot patient was transferre d to [facility] for vascular surgery evaluation .Patient was [...] clinic on discharge. Renal cell carcinoma 702 185750 C64.9 12/25/24: OV with Dr. 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 He also had some dark eschars on his left hallux and left third toe that appear to be well-heale d today. He is certainly improving. Depression screening 171 498613 Z13.31 PHQ 2 Health Concerns Section Related Observation LastModified by Organization Detai ls LastModified Time None Recorded Concern Status LastModified by Organization Details LastModified Time None Recorded Advance Directives Directive None Recorded Payers Encounter Date Sequence Insurance Name Policy Number Policy Simons Covered Member ID Simons Member ID Guarantor Name 12/19/2022 1 [facility] [facility] [employer] - [employer] (PPO) Kar Sloan [id number] Kar Sloan 06/13/2023 1 [place] [id number] Kar Sloan [id number] Kar Sloan 08/04/2023 1 [place] [id number] Kar Sloan [id number] Kar Sloan 12/24/2024 1 [place] [id number] Kar Sloan [id number] Kar Sloan 02/05/2025 1 [place] [id number] Kar Sloan [id number] Kar Sloan Notes Date Note Type Note Provider Name and Address Organization Details Recorded Time 12/19/2022 text/html Pt presents for 2 mo [...] rest. INGE HACKETT Attn: Accounting[address] [facility], [place], [address], [facility] 12/19/2022 21:09:16 06/13/2023 text/html Pt presents for [...] INGE HACKETT Attn: Accounting[address] , [place], [address], [facility] 06/13/2023 11:41:27 08/04/2023 text/html Pt presents for 2 mo f/u. States that his lymph node biopsy came back negative. He has repeat CT scan and f/u with oncology in 3 months. Pt reports that kidney Dr is still holding off on dialysis as long as I'm feeling well and has f/u with Dr. Mcnulty in 2 months. INGE HACKETT Attn: Accounting,[address] [facility], [place], [address], [facility] 08/04/2023 12:39:28 12/24/2024 text/html Pt presents for FMLA paperwork. Last OV with PCP 07/2023. 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 He was admitted to [facility] 11/13/24, transferred to [facility] and discharged 11/26/24. He is following closely with Dr. Luciano (Podiatry), Dr. Carrasco (Oncology), Dr. Dykes (Vascular), and Dr. Mcnulty (Nephrology). 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 Pt completed PT and has home health to change dressings on his feet. Requesting FMLA for 12 wks. INGE HACKETT Attn: Accounting[address] , [place], [address], [facility] 12/30/2024 09:20:46 02/05/2025 text/html Patient presents for return to work follow-up. 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 He has completed 12 weeks of FMLA and short-term disability. His work does not offer long-term disability. Reports that he is getting his port placed on Monday and will start chemo next week INGE HACKETT Attn: Accounting,[address] [facility], [place], [address], [place] [facility] 02/05/2025 16:47:27
--- OUTSIDE RECORDS SUMMARY | 2025-02-07 03:11 | XMS_ITS | Encounter Summary ---
Author Organization [facility] KERENZachary Prell [facility] Address [address] [place] [address] Care Team Providers Care Statistician Theoretical Name Role Phone Unavailable Primary Care Provider Unavailabl e Encounter Details Date Type Department Care Team ([facility] Contact Info) Description 06/02/2023 Telephone [facility] Oncology pending sale to [facility] Hematology [facility] [address] [place] [address] Aydin Carrasco MD [facility] [employer] [place] [address] Social History Tobacco Use Types Packs/Day [...] Upcoming Encounters Date Type Department Care Team ([facility] Contact Info) Description 03/05/2025 9:45 AM CDT Office Visit [facility] Oncology pending sale to [facility] Hematology [address] [place] [address] Aydin Carrasco MD [facility] [address] [place] [address] 03/05/2025 10:00 AM CDT Appointment [facility] [place] [place] [address] Jesus Luciano, DPM [address] [place], [place] [id number] 04/14/2025 10:15 AM CDT Appointment [facility] Heart and Vascular Testing [place] [address] [facility] [address] [place] [address] Shanika Sebastian FNP [address] [facility] [address] [place] [phone] 04/14/2025 11:30 AM CDT Office Visit [facility] Heart and Vascular Surgery [address] [facility] [address] [address] [facility] [address] [place] [address] [place] [address] [facility] [address] [place] [address] documented as of this encounter Visit Diagnoses Not on filedocumented in this encounter
--- OUTSIDE RECORDS SUMMARY | 2025-02-07 03:11 | XMS_ITS | Clinical Summary ---
Author Organization [facility] Address [address] [address] Phone Care Team Providers Care Wet Cotton Feeder Name Role Phone Unavailable Primary Care Provider [...] 01/03/2025 1:00 PM CDT Home Care Visit [address] [address] Leela Rao, RN SN - OASIS DISCHARGE 12/26/2024 12:30 PM CDT Home Care Visit [address] [address] Leela Rao RN SN - WOUND VISIT 12/23/2024 1:30 PM CDT Home Care Visit [address] [address] Sidra Noble LPN SN - WOUND VISIT 12/19/2024 5:00 PM MARKING MACHINE OPERATOR Home Care Visit [address] [address] Leela Rao, RN SN - WOUND VISIT 12/17/2024 11:30 AM MARKING MACHINE OPERATOR Home Care Visit [address] [address] Cintia Chen, PT PT - DISCIPLINE DISCHARGE 12/16/2024 2:00 PM MARKING MACHINE OPERATOR Home Care Visit [address] [address] Loreto Green, WOOD MILLING MACHINE OPERATOR PT - HOME VISIT 12/16/2024 2:00 PM MARKING MACHINE OPERATOR Home Care Visit [address] [address] Leela Rao, RN SN - WOUND VISIT 12/16/2024 Home Care Visit [address] [address] Leela Rao, RN TELEPHONE ENCOUNTER 12/12/2024 11:30 AM MARKING MACHINE OPERATOR Home Care Visit [address] [address] Loreto Green, WOOD MILLING MACHINE OPERATOR PT - HOME VISIT 12/12/2024 Home Care Visit [address] [address] Kirstin Santana OT OT - DISCHARGE SUMMARY 12/11/2024 2:30 PM MARKING MACHINE OPERATOR Home Care Visit [address] [address] Leela Rao, RN SN - WOUND VISIT 12/10/2024 2:00 PM MARKING MACHINE OPERATOR Home Care Visit [address] [address] Xiomara Jiang, COURT ATTENDANT OT - DISCIPLINE DISCHARGE 12/10/2024 10:00 AM MARKING MACHINE OPERATOR Home Care Visit [address] [address] Loreto Green, WOOD MILLING MACHINE OPERATOR PT - HOME VISIT 12/10/2024 Home Care Visit [address] [address] Xiomara Jiang, RENETTA CASE COMMUNICATION 12/09/2024 11:30 AM MARKING MACHINE OPERATOR Home Care Visit [address] [address] Sidra Noble LPN SN - WOUND VISIT 12/06/2024 1:30 PM MARKING MACHINE OPERATOR Home Care Visit [address] [address] Leela Rao, RN SN - WOUND VISIT 12/05/2024 12:30 PM MARKING MACHINE OPERATOR Home Care Visit [address] [address] Loreto Green, WOOD MILLING MACHINE OPERATOR PT - HOME VISIT 12/05/2024 11:00 AM MARKING MACHINE OPERATOR Home Care Visit [address] [address] Xiomara Jiang, RENETTA OT - HOME VISIT 12/05/2024 Home Care Visit [address] [address] Xiomara Jiang, COURT ATTENDANT CASE COMMUNICATION 12/03/2024 12:00 PM MARKING MACHINE OPERATOR Home Care Visit [address] [address] Loreto Green, WOOD MILLING MACHINE OPERATOR PT - HOME VISIT 12/03/2024 9:30 AM MARKING MACHINE OPERATOR Home Care Visit [address] [address] Kirstin Santana OT OT - HOME VISIT 12/03/2024 Home Care Visit [address] [address] Leela Rao, RN CARE CONFERENCE 12/02/2024 3:30 PM MARKING MACHINE OPERATOR Home Care Visit [address] [address] Leela Rao, RN SN - WOUND VISIT 11/29/2024 2:00 PM MARKING MACHINE OPERATOR Home Care Visit [address] [address] Leela Rao RN SN - WOUND VISIT 11/29/2024 9:15 AM MARKING MACHINE OPERATOR Home Care Visit [address] [address] Kirstin Santana OT OT - INITIAL EVALUATION 11/28/2024 3:00 PM MARKING MACHINE OPERATOR Home Care Visit [address] [address] Cintia Chen, PT PT - INITIAL EVALUATION 11/28/2024 Home Care Visit [address] [address] Cintia Chen, PT TELEPHONE ENCOUNTER 11/28/2024 Home Care Visit [address] [address] Damaris An RN TELEPHONE ENCOUNTER 11/27/2024 11:00 AM MARKING MACHINE OPERATOR Home Care Visit [address] [address] Leela Rao RN SN - OASIS START OF CARE 11/27/2024 Plan of Care Documentation [address] [address] from Last 3 Months Social History Tobacco [...] (196 lb 3.4 oz) 12/17/2024 11:30 AM MARKING MACHINE OPERATOR Height 182.9 cm (6') 11/29/2024 9:36 AM MARKING MACHINE OPERATOR Body Mass Index 26.61 11/29/2024 9:36 AM MARKING MACHINE OPERATOR Plan of Treatment Health Maintenance Due Date [...]
--- OUTSIDE RECORDS SUMMARY | 2025-02-07 03:11 | XMS_ITS | Referral Summary ---
Author Organization [facility] [address] Address [address] [place] [address] Care Team Providers Care Director Digital Catalogue Name Role Phone Gia Clark Primary Care Provider [phone] Harry Loredo MD Unavailable [phone] Rachell Mcnulty MD Unavailable [phone] Ramonita Feldman RN Unavailable [phone] Encounters Date Type Department Care Team Description 01/24/[address] [facility] Medical Group Cardiology [address] [place] [address] Harry Loredo MD 11/27/[address] [facility] Home Care Services [address] [place] [address] [place] [address] Sarah Gannon 11/26/[address] [facility] Home Care Services [address] [place] [address] [address] [place] [address] Unknown, Notinfile from Last 3 [...] (09/02/2022): Added automatically from request for surgery [id number] Hypertension 02/14/2022 Renal mass 02/14/2022 Immunizations Immunization [...] Plan of Treatment Not on file Insurance [facility] [address] [id number] Care Teams Director Digital Catalogue Relationship Specialty Start Date End Date Gia Clark PA [address] [place] [address] PCP - General Physician Pet Ambassador 09/15/22 Harry Loredo MD [address] [facility] [address] [place] [address] Consulting Physician Cardiovascular Disease 03/18/24 Rachell Mcnulty MD [address] [facility] [address] [place] [address] Referring Physician Nephrology 06/05/24 Ramonita Feldman, RN [address] [place] [address] Proposal Development Manager 06/05/24
--- OUTSIDE RECORDS SUMMARY | 2025-02-07 03:12 | XMS_ITS | Encounter Summary ---
Author Organization [facility] Address [address] [place] [address] Care Team Providers Care Line Staker Name Role Phone Gia Clark PA-C Primary Care Provider [phone] Encounter Details Date Type Department Care Team (Late st Contact Info) Description 06/14/2023 Lab Requisition [facility] - Pathology Lab [address] [place] [address] Cristiano Joe MD [facility] [address] [address] Generalized enlarged lymph nodes Social History Tobacco [...] AM CDT) Case Report Flow Cytometry Case: [id number] Authorizing Provider: Cristiano Joe MD Collected: 06/14/2023 10:46 AM Ordering Location: [facility] Pathology Lab Received: 06/14/2023 04:46 PM Pathologist: Jamel Ashby MD Specimen: Lymph Node, LEFT PELVIC AREA 06/15/2023 8:52 AM [facility] PATHOLOGY LAB Final Diagnosis Lymph node, left pelvic area, flow cytometric immunophenotypic analysis: - Insufficient hematopoietic cells for analysis. - See interpretation. 06/15/2023 8:52 AM [facility] Flow Cytometry Interpretation Preliminary characterization of the lymph node specimen demonstrates too few hematopoietic cells for flow cytometric analysis. A cytospin prepared from the flow cytometry specimen is reviewed for quality control purposes. Flow cytometry is not performed. 06/15/2023 8:52 AM [facility] PATHOLOGY LAB Flow Cytometry Results Too few hematopoietic cells for flow cytometric analysis. 06/15/2023 8:52 AM [facility] Reason for test Generalized enlarged lymph nodes 785.6 06/15/2023 8:52 AM [facility] Client Specimen ID # [id number] 06/15/2023 8:52 AM [facility] Pathologist Location at [facility] 06/15/2023 8:52 AM [facility] Disclaimer Test performed at [facility], [address] [place] [address], [address]. *The established laboratory minimum viability is 70%. [...] PATHOLOGY LAB Embedded Images 8:52 AM [facility] PATHOLOG[facility] LAB Pathology/Cytolo gy ENTIRE LYMPH NODE / Unknown 06/14/2023 10:46 AM CDT 06/14/2023 4:46 PM CDT Cristiano Joe MD LAB - PATHOLOGY/CYTOLOGY ORDERAB LES Final Result [facility] PATH[facility] [address] [facility]. [address] [phone] documented in this encounter Visit Diagnoses Diagnosis Generalized enlarged lymph nodes Enlargement of lymph nodes documented in this encounter Care Teams Line Staker Relationship Specialty Start Date End Date Gia Clark PA-C [address] [place] [address] PCP - General 05/24/22 documented as of this encounter
--- OUTSIDE RECORDS SUMMARY | 2025-02-07 03:12 | XMS_ITS ---
[facility] Address [address] [place] [address] Care Team Providers Care Tear Down Matcher Name Role Phone Unavailable Primary Care Provider [...]
--- OUTSIDE RECORDS SUMMARY | 2025-02-07 03:12 | XMS_ITS | Clinical Summary ---
Author Organization [facility] [employer] Address [address] [facility] [place] [address] Care Team Providers Care Product Marketing Specialist Name Role Phone Gia Clark PA-C Primary Care Provider [phone] [facility] [employer],non-owned Affiliates and Associated Physician Practices is amultiple site organization consisting of ambulatory clinics and hospital sitesin [place], [place], [place] and [place]. This disclosure is being madepursuant to the Care Everywhere program and may not contain all information available regarding this patient. Last updated 18.[facility] [employer] Social History Tobacco Use Types Packs/Day Years [...] patient's age to complete this topic Insurance [facility] * Guarantor: KAR SLOAN Account Type Relation to Patient Date of Phone Billing Address Personal/Family Spouse Care Teams Product Marketing Specialist Relationship Specialty Start Date End Date Gia Clark PA-C [address] [place] [address] PCP - General 05/24/22
--- OUTSIDE RECORDS SUMMARY | 2025-02-07 03:12 | XMS_ITS | Encounter Summary ---
Author Organization [facility] Address [address] [place] [address] Care Team Providers Care Parking Lot Signaler Name Role Phone Unavailable Primary Care Provider Unavailabl e Encounter Details Date Type Department Care Team (Latest Contact Info) Description 02/05/2025 9:41 AM CDT - 02/05/2025 11:59 PM CDT Hospital Encounter [facility] [address] [place] [address] Jesus Luciano, DPM [id number] [place] [address] Discharge Disposition: Home or Self Care Social History Tobacco Use Types Packs/Day Years Used Date Smoking Tobacco: Every Day Cigarettes Smokeless Tobacco: Never Alcohol Use Standard Drinks/Week Comments Yes 7 (1 standard drink = 0.6 oz pur e alcohol) Feeling Safe Answer Date Recorded Are you in a relationship wi th someone who hurts you emotionally and/or physically? No 02/05/2025 Food Insecurity Answer Date Recorded Patient needs follow up regardin 02/05/2025 Transportation Needs Answer Date Record ed Patient needs follow up regardin 02/05/2025 Housing Stability Answer Date Recorded Social/Environmental Concerns No concerns Utility Needs Answer Date Recorded Patient needs follow up regardin 02/05/2025 Sex and Gender Information Value Date Recorded Sex Assigned at Not on file Legal Sex Male 10:49 AM CDT Gender Identity Not on file Sexual Orientation Not on file documented as of this encounter Last Filed Vital Signs Vital Sign Reading Time Taken Comments Blood Pressure 147/70 02/05/2025 9:00 AM CDT Pulse 63 02/05/2025 9:00 AM CDT Temperature 35.8 C (96.5 F) 02/05/2025 9:00 AM CDT Respiratory Rate 20 02/05/2025 9:00 AM CDT Oxygen Saturation - - Inhaled Oxygen Concentration - - Weight 89.8 kg (198 lb) 02/05/2025 9:00 AM CDT Height 182.9 cm (6') 02/05/2025 9:00 AM CDT Body Mass Index 26.85 02/05/2025 9:00 AM CDT documented in this encounter Discharge Instructions * Discharge Instructions* Frances Gonzales RN - 02/05/2025 10:42 AM CDT [facility] [address] [place] [address] PLEASE NOTE Our hours may change due to inclement weather. Please call [phone] to confirm your appointment prior to driving in icy or snowy conditions. You may call the Wound Treatment Center at [phone], Mon.-Fri. 8:00 am - 4:00 pm (or call 911 or proceed after hours to the nearest ER or urgent care or call your physician for emergent needs). Please note that if you leave a message on the nurse line that we might not be able to return your phone call until the end of the business day. --- If tests such as blood flow studies, x-rays, or MRI were ordered today, please call the Scheduling Department at [phone] to set up a time to complete these tests prior to your next wound care appointment if possible--- Date: 02/05/2025 Patient Name: Kar Sloan Patient Date of : 1960 Patient Age: 64 y.o. Patient Sex: male HOME WOUND CARE INSTRUCTIONS Orders Placed This Encounter Procedures APPLY DRESSING right foot Clean wound and surrounding skin with Vashe. Pat dry. Apply collagen moistened with gentamicin then aquacel advantage ag to wound/ulcer bed. Cover with ABD pad and Gauze and secure with Kerlix and Skin friendly tape. Change dressing 3 times a week. Left 3rd toe: dry gauze 3 times per week or bandaid Bathing: It is necessary to keep wound dry while showering/bathing. Cast covers are available at [facility] pharmacy. Compression applied: N/A Pressure relief and offloading: Continue current orders for Surgical Shoe. Promoted nutritional support: Encourage healthy diet, Encourage protein intake, Encourage diabetic diet, Encourage vitamin supplement, Nutritional handouts given, and Lola supplement. Lola is a therapeutic nutrition powder made specifically for wound healing. Lola contains Arginine, glutamine, HMB, Hydrolyzed collagen protein and micronutrients that assist with wound healing. Lola is a powdermixed with 8oz of water and should be taken 2 times daily. LOLA IS SOLD IN [facility] FOR COST WITH NO MARKUP BUT CAN ALSO BE PURCHASED ONLINE. PLAN OF CARE To ensure your continued recovery, it is important that you continue your care at home. Below are specific instructions related to your care: NUTRITION: Your body uses nutrients from foods to promote the healing of wounds caused by surgery, pressure injuries, or other injuries. A healthy, balanced diet with plenty of protein, zinc, Vitamins A and C, aid in wound healing. It is also important to stay hydrated! Tips to Improve Healing: Increase protein intake. Inadequate protein intake could delay wound healing. Try to eat at least 2-3 servings of high protein foods daily. High protein foods include meat, poultry, fish, eggs, cheese, milk, legumes, beans, peanut butter and nuts. Include a high protein food at every meal and snack. VASHE: Today in clinic your physician recommended adding Vashe for cleaning. To clean with Vashe, moisten gauze with Vashe, wring out any excess solution and apply directly to the wound. Keep the gauze on the wound for three to five minutes. After removing Vashe soaked gauze lightly pat down the wound and raulito- wound ( skin around the wound) to remove any excess solution. LOLA: Today in clinic your physician recommended adding Lola to your diet. It is a therapeutic nutritional powder that optimizes wound healing. Lola should be mixed with 8-10 fl oz of water or other liquid. It may be mixed with juices, yogurt, applesauce, ice-cream, or other foods to add varietyto your diet. Lola is available in the [facility] pharmacy for a discounted bush. Infection Control -- Call the Wound Center at [phone] if any of the following occur: Temperature of 101 degrees Fahrenheit or higher for 24 hours. Increase in drainage from wound. Wound becomes red or swollen. If you develop any problems after normal business hours, contact your physician or report directly to the Emergency Room. Pain Control Continue your home regimen. Call the prescribing physician or your primary care physician for increased pain or for refills to pain medications. Dietary Considerations Eating a well-balanced diet rich in vitamins and protein can help you heal. Consult your primary care physician for specific questions regarding your diet. You can increase LEAN protein in your diet by eating more of the following: lean meats (not breadedor fried), yogurt, beans, skim or low fat-milk, and nuts. Avoid salty foods (such as CANNED foods, fast food, processed and prepackaged foods. Avoid adding salt to foods. Avoid high sugary foods especially if you are a Diabetic. High sugar levels SLOW DOWN wound healing. Eat 2-3 servings of fruit daily Eat plenty of fresh or frozen vegetables. Drink plenty of water UNLESS you are on a fluid restriction. Smoking Exposure [facility] encourages all patients to decrease risks associated with smoking and secondhand smoke exposure. If you smoke, we advise you to quit. Ask your primary health care provider for advice if you need assistance to stop smoking. Avoid secondhand smoke exposure and do not let people smoke in your home. Education Completed Today education was completed on general wound care for home, skin care, medications, tests ordered, pain control, infection control, activity and nutritional education. Disposition Patient was discharged home via private vehicle accompanied by patient. documented in this encounter Medications at Time of Discharge ondansetron (ZOFRAN ODT) 8 mg Tablet, Rapid DissolveIndicatio ns:Renal cell carcinoma of right kidney (CMS/HCC) Dissolve 1 tablet on top of tongue then swallow with saliva every 8 hours as needed for nausea or vomiting 30 Tablet 1 02/05/2025 lidocaine-priloca ine (EMLA) 2.5-2.5 % CreamIndications: Renal cell carcinoma of right kidney (CMS/HCC) Apply a quarter size amount to port site 30 minutes before access. 30 Gram 1 02/05/2025 axitinib 5 mg tablet Take 1 Tablet (5 mg) by mouth 2 times daily. 60 Tablet 1 01/20/2025 amLODIPine (NORVASC) 10 mg tablet Take 1 Tablet (10 mg) by mouth daily. 1 Tablet 11/26/2024 aspirin (ANGELICA CHEWABLE) 81 mg Tablet, Chewable Take 1 Tablet (81 mg) by mouth daily with breakfast. 11/26/2024 acetaminophen (TYLENOL) 325 mg tablet Take 2 Tablets (650 mg) by mouth every 6 hours. 11/25/2024 hydrALAZINE (APRESOLINE) 50 mg tablet Take 1 Tablet (50 mg) by mouth 2 times daily. 60 Tablet 1 11/26/2024 5:26 PM HOTEL RECEPTIONIST 11/25/2024 atorvastatin (LIPITOR) 40 mg tablet Take 1 Tablet (40 mg) by mouth daily at bedtime. 30 Tablet 2 11/26/2024 5:26 PM HOTEL RECEPTIONIST 11/25/2024 sennosides-docusa te sodium (SENNA-S) 8.6-50 mg tablet Take 1 Tablet by mouth 2 times daily. 11/25/2024 fluticasone furoate-vilantero L (BREO ELLIPTA) 200-25 mcg/dose Disk with Device Starting 11/26/24, Take 1 Puff by inhalation daily. 60 Each 2 11/26/2024 5:26 PM HOTEL RECEPTIONIST 11/26/2024 apixaban (ELIQUIS) 5 mg tablet Take 5 mg by mouth 2 times daily. 03/19/2024 sevelamer HCL (RENAGEL) 800 mg tablet Take 800 mg by mouth. 02/08/2024 cholecalciferol, Vitamin D3, 125 mcg (5,000 unit) Capsule Take 1 Capsule by mouth daily. furosemide (LASIX) 40 mg tablet Take 40 mg by mouth daily. 12/21/2021 metoprolol succinate (TOPROL XL) 50 mg Extended Release 24 hour tablet Take 100 mg by mouth daily. sodium bicarbonate 650 mg tablet Take 650 mg by mouth 2 times daily. 06/04/2022 documented as of this encounter Progress Notes * Kaya Pagan RN - 02/05/2025 10:00 AM CDT [facility] [address] [place] [address] Date: 02/05/2025 Patient Name: Kar Sloan Patient Date of : 1960 Patient Age: 64 y.o. Patient Sex: male This patient is being seen in our clinic today by Dr. Luciano for evaluation and management of right foot wound(s)/ulcer(s). The patient's wound(s)/ulcer(s) were assessed and documented in the HOD flow sheet. Procedure for measuring wounds, photographing wounds, and what care to expect this visit explained to patient. DIABETIC FOOT EXAM Diabetic Foot Exam: Completed on initial visit FALL RISK ASSESSMENT Fall Risk Assessment: Patient considered at risk for falls if they answer yes to any of the below questions: Does the patient have cognitive impairment? No Right now are you feeling weak, dizzy or lightheaded? No Normally do you walk with an assistive device? No Fall Risk Education: Fall risk education completed? Yes Fall risk interventions to be utilized: orient patient and caregiver to room / clinic area, ensure environment is free of clutter and spills, ensure chair or stretcher is in low position with wheels locked, assist patient with ambulation and transfers as needed, instruct patient and caregiver to ask for assistance when getting up. LIDOCAINE PROTOCOL I reviewed patient's current medications with them and noted any changes. Today I applied 10mL of Topical Lidocaine Gel to the right foot wound(s)/ulcer(s) per protocol. Wound Care Center Topical Lidocaine Protocol (Adult) [facility] ORDERS ARE ENTERED ???PER PROTOCOL?? Enter the protocol in the patient???s electronic health record using [employer]: WCPLidocaineProtocol Medication Orders o Lidocaine Hydrochloride 4% Topical Solution - Apply topically to dressing sites that require a topical anesthetic prior to Negative pressure Wound Therapy dressing removal. Do not exceed more than a total of 3 mg/kg (0.075 mL/kg), maximum of 300 mg (7.5 mL). o Lidocaine Hydrochloride 2% Jelly - Apply to cotton gauze and place topically over wound site thatrequires topical anesthetic prior to wound debridement and/or wound care procedures. Do not exceed more than a total of 3 mg/kg (0.15 mL/kg), maximum of 300 mg (15 mL). Nursing may implement on all adult wound care center patients that require topical anesthesia for NPWT dressing changes and/or topical anesthesia prior to wound debridement and/or wound procedures (e.g., biopsy, incision and drainage, graft placement, etc.), excluding the following patients: o Patients with an allergy to local anesthetics of the amide type or to other components of the lidocaine hydrochloride topical solution or jelly o Patients that refuse topical anesthesia o Patients with insensate wounds Kaya Pagan RN, 02/05/2025 10:12 AM * Frances Gonzales RN - 02/05/2025 10:00 AM CDT The following orders were completed by RN in clinic today per physicians orders: Orders Placed This Encounter Procedures APPLY DRESSING right foot Clean wound and surrounding skin with Vashe. Pat dry. Apply collagen moistened with gentamicin then aquacel advantage ag to wound/ulcer bed. Cover with ABD pad and Gauze and secure with Kerlix and Skin friendly tape. Change dressing 3 times a week. Left 3rd toe: dry gauze 3 times per week or bandaid Bathing: It is necessary to keep wound dry while showering/bathing. Cast covers are available at [facility] pharmacy. Compression applied: N/A Pressure relief and offloading: Continue current orders for Surgical Shoe. Promoted nutritional support: Encourage healthy diet, Encourage protein intake, Encourage diabetic diet, Encourage vitamin supplement, Nutritional handouts given, and Lola supplement. Lola is a therapeutic nutrition powder made specifically for wound healing. Lola contains Arginine, glutamine, HMB, Hydrolyzed collagen protein and micronutrients that assist with wound healing. Lola is a powdermixed with 8oz of water and should be taken 2 times daily. LOLA IS SOLD IN [facility] FOR COST WITH NO MARKUP BUT CAN ALSO BE PURCHASED ONLINE. N/A Frances Gonzales RN * Jesus Luciano DPM - 02/05/2025 10:00 AM CDT Images from the original note were not included. [facility] [address] [place] [address] WOUND CARE PROGRESS / PROCEDURE NOTE Date: 02/05/2025 Patient Name: Kar Sloan Patient Date of : 1960 Patient Age: 64 y.o. 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) ([facility]) 11/13/2024 Chronic respiratory insufficiency 11/16/2024 Dependence on renal dialysis 11/13/2024 Essential hypertension 11/17/2024 Gangrene of both feet ([facility]) 11/14/2024 History of kidney cancer 11/15/2024 Hypertension Longstanding persistent atrial fibrillation ([facility]) 11/13/2024 Malignant neoplasm ([facility]) Malignant neoplasm metastatic to both lungs ([facility]) 11/15/2024 Necrotic toes ([facility]) 11/13/2024 Nicotine dependence 11/15/2024 PAF (paroxysmal atrial fibrillation) ([facility]) 11/17/2024 Preoperative cardiovascular examination 11/17/2024 Suspected chronic obstructive pulmonary disease based on initial evaluation ([facility]) 11/16/2024 Chief Complaint: Kar Sloan is a 64 y.o. male who is seen at [facility] for evaluation and management. Today in clinic patient reports: Patient Observations: Patient states no changes. History of Present illness: As in previous notes he had skip gangrene of his right great toe. I performed a digital amputation and most of the areas healed except for an area of the very proximal incision site. He still has heavy callus tissue on his left side but it is not ulcerated. He is very concerned about getting back to work however with the condition of his feet and his total overall condition I think they may want to consider a disability situation. No questionnaires on file. Review of Systems: Ten point review of systems was done. Pertinent positives and negatives are as follows. History from Patient General negative for chills, fevers, fatigue Eyes, ear, nose and throat negative for nasal congestion, drainage or bleeding, sore throat, dysphagia or ear pain Cardiovascular negative for chest pain or dyspnea on exertion Respiratory negative for cough, shortness of breath, or wheezing GI negative for reflux, abdominal pain, change in bowel habits, or black or bloody stools negative for dysuria, trouble voiding, or hematuria Musculoskeletal negative for back pain, neck pain or joint pain or swelling Neurology negative for TIA or stroke symptoms Hematologic and lymphatic negative for swollen glands or abnormal bleeding Dermatology PHYSICAL EXAM: Vital Signs: Blood pressure (!) 147/70, pulse 63, temperature (!) 96.5 ??F (35.8 ??C), temperature source Temporal, resp. rate 20, height 6' (1.829 m), weight 89.8 kg (198 lb). Ht Readings from Last 3 Encounters: 02/05/25 6' (1.829 m) 01/22/25 6' (1.829 m) 01/02/25 6' (1.829 m) Wt Readings from Last 3 Encounters: 02/05/25 89.8 kg (198 lb) 01/22/25 89.8 kg (198 lb) 01/02/25 92.1 kg (203 lb) BMI Readings from Last 3 Encounters: 02/05/25 26.85 kg/m?? 01/22/25 26.85 kg/m?? 01/02/25 27.53 kg/m?? General: alert and oriented Musculoskeletal -he has had amputation of his right hallux and distal right first metatarsal Neurologic -he is very neuropathic. Vascular -his circulation has been augmented by the vascular service. Dermatologic: Skin -some edema of the malleoli Nails -chronic onychomycosis Complicating Factors to Wound Healing: Nicotine dependence, malignant neoplasm of the lungs, peripheral neuropathy dependence on dialysis Pain Assessment: Pain Scales: No/denies pain (02/05/25 09) Presence of Pain: denies pain/discomfort (02/05/25899) Labs: Results personally reviewed Lab Results Component Value Date/Time WBC 8.9 11/24/2024 02:56 AM HGB 7.3 (L) 11/24/2024 02:56 AM HGBPOC 6.4 (LL) 11/20/2024 12:10 PM HGBPOC 6.4 (LL) 11/20/2024 12:10 PM HGBPOC 6.4 (LL) 11/20/2024 12:10 PM HGBPOC 6.4 (LL) 11/20/2024 12:10 PM HCT 22.7 (L) 11/24/2024 02:56 AM HCTPOC 19 (L) 11/20/2024 12:10 PM PLT 332 11/24/2024 02:56 AM MCV 103.2 (H) 11/24/2024 02:56 AM CHOLTOT 75 11/16/2024 05:09 AM HDL 33 (L) 11/16/2024 05:09 AM LDLCALC 22 11/16/2024 05:09 AM TRIGLYCERIDE 98 11/16/2024 05:09 AM ALT 17 11/14/2024 12:58 AM AST 20 11/14/2024 12:58 AM NA 131 (L) 11/26/2024 04:39 AM K 4.9 11/26/2024 04:39 AM KPOC 5.8 (H) 11/20/2024 12:10 PM CL 96 (L) 11/26/2024 04:39 AM CO2 21 (L) 11/26/2024 04:39 AM CREAT 7.72 (H) 11/26/2024 04:39 AM BUN 53 (H) 11/26/2024 04:39 AM HGBA1C 5.4 11/14/2024 12:58 AM Cultures: Results personally reviewed Lab Results Component Value Date/Time ANAERC SEE NOTE 01/22/2025 10:27 AM Lab Results Component Value Date/Time AERCULT SEE NOTE (A) 01/22/2025 10:27 AM Path: Results personally reviewed Results for orders placed or performed during the hospital encounter of 11/13/24 PATHOLOGY Result Value Ref Range CASE REPORT Surgical Pathology Report Case: [id number] Authorizing Provider: Jesus Luciano DPM Collected: 11/23/2024 11:55 AM Ordering Location: [facility] Received: 11/25/2024 09:35 AM Operating Room Pathologist: Shirley Tran MD Specimens: A) - Bone, proximal first metatarsal, Toe Great, right B) - Toe Great, right, right great toe FINAL DIAGNOSIS Bone, proximal first metatarsal, excision - Bone with focal acute inflammation, consistent with focal acute osteomyelitis - Bone with degenerative/regenerative change Foot, right great toe, amputation - Skin and soft tissue with ulceration, abscess, and devitalization/necrosis - Bone with devitalization/necrosis GROSS DESCRIPTION A. Received in formalin labeled with the patient's name and proximal first metatarsal is a yellow-mckeon bone fragment measuring 0.7 x 0.5 x 0.3 cm. The specimen is entirely submitted as A1 after decalcification. B. Received in formalin labeled with the patient's name and right great toe is a 5.5 cm in lengthand 3.5 cm in diameter digit. The entire [...] B2-lesion B3-bone underlying lesion submitted after decalcification MICROSCOPIC DESCRIPTION Microscopic review supports the diagnosis. OPERATIVE PROCEDURE 1: TOE(S) AMPUTATION CLINICAL INFORMATION UNKNOWN COMMENT Immunohistochemical stains were performed, if any, and interpreted at [facility] ([facility]) Laboratory with appropriately staining controls. This test was developed and its performance characteristics determined by [facility] Lab. It has not been cleared [...] on decalcified tissue; decalcification may decrease immunoreactivity forthese and other antigens. Imaging Studies: Results personally reviewed Results for orders placed during the hospital encounter of 11/13/24 XR FOOT 3+ VW RIGHT Narrative EXAMINATION: XR FOOT 3+ VW RIGHT DATE: 11/23/2024 1:04 PM HISTORY: Other - Please see comments, Comment: Post op; Chronic anemia COMPARISON: Outside institution radiographs from 11/09/2024 FINDINGS: There is no evidence of acute fracture or dislocation. There is interval amputation of the first digit at the proximal metatarsal shaft. Bone mineralization is normal. Soft tissue swelling is seen. Calcaneal spurs are present. Impression : 1. Interval first digit amputation. DICTATION LOCATION: [address] Results for orders placed during the hospital encounter of 11/13/24 CTA CHEST W AND/OR WO CONTRAST Impression : 1. No evidence of pulmonary embolism. 2. Similar appearance of bilateral pulmonary nodules, most consistent with metastatic disease. Redemonstration of enlarged aortopulmonary lymph node. Increased subcarinal lymph node. 3. Small bilateral pleural effusions. 4. Unchanged lucent lesion at the T12 inferior endplate, most suggestive of metastatic focus. DICTATION LOCATION: [address] Results for orders placed during the hospital encounter of 11/13/24 MRI FOOT WO CONTRAST RIGHT Impression : First distal phalanx fractures are again noted. There is diffuse first distal phalangeal marrow edema and possibly soft tissue gas in the great toe. Osteomyelitis cannot be excluded in the setting of fracture but is highly suspected based on review of the 11/09/2024 outside radiographs. DICTATION LOCATION: [address] Results for orders placed or performed during the hospital encounter of 01/02/25 ANKLE PRESSURE INDEX [facility] NADER Arterial Physiologic Evaluation Patient: Kar Sloan Study ID: [id number] Gender: M : 1960 Age: 64 Race: HUNTER Height 182.9cm Study Date: 01/02/2025 Weight: 89.8kg Access. #: [id number] *Referring Physician:* Patricia Quezada Amy Elizabeth *Ordering Physician:* Patricia Quezada *Cake Icer:* Volner, Dory RVS Indications: PVD. History: Risk factors: Recent [...] Hg Prepared and Electronically Authenticated Mariaa Mathew [id number] Results for orders placed or performed during the hospital encounter of 11/13/24 US VENOUS DOPPLER LEG BILATERAL Narrative EXAMINATION: US VENOUS DOPPLER LEG BILATERAL DATE: 11/14/2024 4:48 PM HISTORY: Bilateral foot wounds FINDINGS: Color Doppler and spectral waveform analysis is performed. Visualized portions of bilateral common femoral, femoral, profunda femoral, proximal greater saphenous, popliteal, and deep calf veins exhibit normal respiratory phasicity, compressibility, and augmentation without metz scale or color Doppler evidence of DVT. Impression IMPRESSION: Normal. DICTATION LOCATION: [address] Problem list: Patient Active Problem List Diagnosis Code Benign hypertension with ESRD (end-stage renal disease) ([facility]) I12.0, N18.6 Dependence on renal dialysis Z99.2 Necrotic toes ([facility]) I96 Longstanding persistent atrial fibrillation ([facility]) I48.11 Adrenal mass E27.8 AAA (abdominal aortic aneurysm) I71.40 Gangrene of both feet ([facility]) I96 PVD (peripheral vascular disease) I73.9 Nicotine dependence F17.200 History of kidney cancer Z85.528 Malignant neoplasm metastatic to both lungs ([facility]) C78.01, C78.02 Anemia, chronic disease D63.8 Suspected chronic obstructive pulmonary disease based on initial evaluation ([facility]) J44.9 Chronic respiratory insufficiency R06.89 Preoperative cardiovascular examination Z01.810 PAF (paroxysmal atrial fibrillation) ([facility]) I48.0 Essential hypertension I10 Diagnosis: 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 Underlying Causes: Infection, Decreased Sensation, Smoking, Post Surgical , and Peripheral ArterialDisease Wound Description and measurements: See Epic Flowsheet information below. Wound status is: Improving Debridement: Debridement completed on this wound / ulcer in clinic today. Lidocaine jelly 2% topical was applied to the area prior to procedure. Time out completed prior to procedure. Correct patientverified by name and date of . Correct location verified, procedure discussed and consent signed by patient, witnessing nurse and provider. Type of Debridement completed was selective, excisional. Fat layer exposed visible prior to debridement. Debridement of devitalized tissue, non-viable tissue, and slough into skin, subcutaneous using irrigation and a curette exposing fresh bleeding tissue. After completion of the procedure the wound/ulcer dimensions are unchanged. Total surface area debrided was 0.14 cm2. Fat layer exposed visible post debridement. Wound/Ulcer debrided to the skin, subcutaneous tissue level. Hemostasis achieved by pressure. Patient tolerated the procedure well. They will watch for any signs of infection including redness, change in drainage, pain, fever, chills and exposure of deeper structures or any questions and contact the office or be seen in the ER. Wound/Ulcer cleansed with NS pre and post debridement. Today in the wound center I prescribed the following treatments: Orders Placed This Encounter Procedures APPLY DRESSING right foot Clean wound and surrounding skin with Vashe. Pat dry. Apply collagen moistened with gentamicin then aquacel advantage ag to wound/ulcer bed. Cover with ABD pad and Gauze and secure with Kerlix and Skin friendly tape. Change dressing 3 times a week. Left 3rd toe: dry gauze 3 times per week or bandaid Bathing: It is necessary to keep wound dry while showering/bathing. Cast covers are available at [facility] pharmacy. Compression applied: N/A Pressure relief and offloading: Continue current orders for Surgical Shoe. Promoted nutritional support: Encourage healthy diet, Encourage protein intake, Encourage diabetic diet, Encourage vitamin supplement, Nutritional handouts given, and Lola supplement. Lola is a therapeutic nutrition powder made specifically for wound healing. Lola contains Arginine, glutamine, HMB, Hydrolyzed collagen protein and micronutrients that assist with wound healing. Lola is a powdermixed with 8oz of water and should be taken 2 times daily. LOLA IS SOLD [email or web address] WITH NO MARKUP BUT CAN ALSO BE PURCHASED ONLINE. Indications for dressing choice: Today in the wound center the following studies, labs and/or referrals were ordered: Orders Placed This Encounter APPLY DRESSING lidocaine 2% jelly 10 mL gentamicin (GARAMYCIN) 0.1 % topical cream Epic Wound Flowsheet information: Wound 11/13/24 1930 2 Right foot ulceration (Active) Wound (WDL) WDL except 02/05/25899 Pictures Taken (Date) 02/05/25 02/05/25899 Wound Image 02/05/25899 Dressing Changed Date 02/05/25 02/05/25899 Dressing Appearance moist drainage 02/05/25899 Drainage Characteristics/Odor serous;serosanguineous 02/05/25899 Drainage Amount moderate 02/05/25899 Wound Base pink;slough 02/05/25899 Periwound Area blanchable erythema;macerated 02/05/25899 Wound Edges attached 02/05/25899 Wound Length-cm. 0.7 cm. 02/05/25899 Wound Width-cm. 0.2 cm. 02/05/25899 Wound Depth-cm. 1 cm. 02/05/25899 Wound Surface Area (cm^2) 0.14 cm^2 02/05/25899 Wound Area % Change 98.56 02/05/25899 Wound Volume (cm^3) 0.14 cm. 02/05/25899 Wound Care: Cleansed w/ hypochlorous acid solution 02/05/25899 Epic Flowsheet Measurements: Epic Flowsheet Neurovascular Assessment: Neurovascular Assessment RLE - Temperature: warm RLE - Color: pink Dorsalis Pedis Pulse Dorsalis Pedis Pulse Right: palpation;1+ (weak) Posterior Tibial Pulse Posterior Tibal Pulse Right: palpation;1+ (weak) PLAN OF CARE Today in the wound center we addressed the following issues: Infection and reduction of bacterial load by Dressing choice Compression/Edema Management by elevation and applying N/A Pressure relief and offloading by: Surgical Shoe Promoted nutritional support by: Encourage healthy diet and Encourage protein intake Blood Glucose control: N/A Vascular status by: N/A Tobacco use by: Discussed current use, advised patient on negative impact of smoking on wound healing, offered support Alcohol use by: N/A Today in the wound center the following studies, labs and/or referrals were ordered: Orders Placed This Encounter APPLY DRESSING lidocaine 2% jelly 10 mL gentamicin (GARAMYCIN) 0.1 % topical cream Patient is to return to clinic for follow up care: in 2 weeks Short Term Goals: Optimize wound healing through: Adequate wound bed preparation and eradication of slough / bioburden and infection control. Edema control and stabilization via compression, adequate diuresis and avoiding dependent edema. Adequate offloading to alleviate pressure. Optimized nutritional status and blood glucose levels Optimized vascular status Director Special Education Goals: Complete wound closure within 4-12 weeks of initial visit. Maintained edema control and stabilization after wound closure to prevent wound recurrence. 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 I frankly I do not think that is he can take that without having serious reoccurrence or to diminish his healing is taking place. Discussed this with him and his family. Wedebrided his wound we will continue local care I will follow him in 2 to 3 weeks. Counseling and/or coordination of care regarding wounds and treatments accounted for > 50% of today's total visit time which was 20 minutes. Jesus Luciano DPM CC: No primary care provider on file. documented in this encounter Plan of Treatment Upcoming Encounters Date Type Department Care Team (Late st Contact Info) Description 03/05/2025 9:45 AM CDT Office Visit [facility] Oncology and Hematology - [place] [address] [place] [address] Aydin Carrasco MD [address] [facility] [address] [place] [address] 03/05/2025 10:00 AM CDT Appointment [facility] [address] [phone] Jesus Luciano, DPM [address] [address] [place], [place] [id number] 04/14/2025 10:15 AM CDT Appointment [facility] Heart and Vascular Testing [facility] [address] [facility] [address] [place] [address] Shanika Sebastian FNP [address] [facility] [address] [place] [address] 04/14/2025 11:30 AM CDT Office Visit [facility] Heart and Vascular Surgery [address] [facility] [address] [address] [facility] [address] [place] [address] [place] [address] [facility] [address] [place] [address] documented as of this encounter Visit Diagnoses Not on filedocumented in this encounter Administered Medications Inactive Administered Medications - up to 3 most recent administrations Medication Order MAR Action Action Date Dose Rate Site gentamicin (GARAMYCIN) 0.1 % topical cream Topical, ONE TIME ONLY, 1 dose, On Mon02/05/25 at 1045, Routine Given 02/05/2025 10:45 AM CDT Alicia t, Right lidocaine 2% jelly 10 mL 10 mL, Topical, ONE TIME ONLY, 1 dose, On Mon02/05/25 at 1000, Routine Given 02/05/2025 10:06 AM CDT 10 mL Foot, Right documented in this encounter"
--- OUTSIDE RECORDS SUMMARY | 2025-02-07 03:12 | XMS_ITS | Clinical Summary ---
Author Organization [facility] Address [address] [place] [id number] Phone Care Team Providers Care Neon Electrician Name Role Phone Gia Clark Primary Care Provider [phone] Allergies No known active allergies Medications amLODIPine [...] on file Legal Sex Male 8:10 AM [facility] Gender Identity Not on file Sexual Orientation [...] 08/10/20 21, 07/31/2020 Insurance [employer] Care Teams Neon Electrician Relationship Specialty Start Date End Date Gia Clark PA [address] [place] [phone] PCP - General 01/03/22
--- OUTSIDE RECORDS SUMMARY | 2025-02-07 03:12 | XMS_ITS | Clinical Summary ---
Author Organization [facility] Address [facility] [address] Care Team Providers Care Email Administrator Name Role Phone Gia Clark PA-C Primary Care Provider [phone] Allergies No known active allergies Medications sodium [...] this topic Medical Devices Implanted Type Area Engraver Seals Device Identifier Shelf Expiration Date Model / Serial / Lot Dirk Clareon Iol Implanted:Qty: 1 on 06/13/2022 by Jung Rosales MD at [facility] Left: Eye DIRK - SURGICAL DIV 02/27/2025 [id number] / [id number] / Insurance [facility] Care Teams Email Administrator Relationship Specialty Start Date End Date Gia Clark PA-C PCP - General PHYSICIAN SURVEY DATA TECHNICIAN 06/13/22
--- OUTSIDE RECORDS SUMMARY | 2025-02-07 03:12 | XMS_ITS | Continuity of Care Document ---
Author Organization [facility] Address [address] [place] [address] [address] [facility] [address] [place] [address] Phone Care Team Providers Care Door Hanger Name Role Phone Marcos OD, Sebas Unavailable Unavailable Advance Directives Directive Yes / No Effective Date File Name No Information Encounters Encounter Description Practice Location Reason(s) For Visit Diagnoses Date Provider Providers Copied on Encounter [facility], [id number] [place] [address] [address] [place], [place], [id number], [place] tel:[phone] [facility] No Information Aug-0 4-200 5 Marcos OD Sebas. [address] , [address], [place], [address], [place]. tel:[phone] Family History Family Member Type Diagnosis Age At Onset No Information Payers Payer name Insurance type Covered constitution party ID Authoriza tijean(s) [facility] CI [id number] Social History Type Description Quantity Date Captured [...]
--- OUTSIDE RECORDS SUMMARY | 2025-02-07 03:12 | XMS_ITS | Clinical Summary ---
Author Organization [facility] Rasheed Rivas Address [address] [place] [address] Care Team Providers Care Shirt Sorter Name Role Phone Unavailable Primary Care Provider [...] daily. 60 Tablet 1 11/26/2024 5:26 PM WIND FARM SUPPORT SPECIALIST 5 Active atorvastatin (LIPITOR) 40 mg tablet Take 1 Tablet (40 mg) by mouth daily at bedtime. 30 Tablet 2 11/26/2024 5:26 PM WIND FARM SUPPORT SPECIALIST 5 Active sennosides-docus ate sodium (SENNA-S) 8.6-50 mg tablet Take 1 Tablet by mouth 2 times daily. Active fluticasone furoate-vilanter oL (BREO ELLIPTA) 200-25 mcg/dose Disk with Device Starting 11/26/24, Take 1 Puff by inhalation daily. 60 Each 2 11/26/2024 5:26 PM WIND FARM SUPPORT SPECIALIST Active axitinib 5 mg tablet Take 1 Tablet (5 mg) by mouth 2 times daily. 60 Tablet 1 5 Active ondansetron (ZOFRAN ODT) 8 mg Tablet, Rapid DissolveIndicati ons:Renal cell carcinoma of right kidney (CMS/HCC) Dissolve 1 tablet on top of tongue then swallow with saliva every 8 hours as needed for nausea or vomiting 30 Tablet 1 5 Active lidocaine-priloc danielle (EMLA) 2.5-2.5 % CreamIndications :Renal cell carcinoma of right kidney (CMS/HCC) Apply a quarter size amount to port site 30 minutes before access. 30 Gram 1 5 Active Active Problems Problem Noted Date Diagnosed [...] Encounters Date Type Department Care Team Description 02/05/2025 9:41 AM CDT - 02/05/2025 11:59 PM CDT Hospital En[facility] [address] [place] [phone] Jesus Luciano, DPM Discharge Disposition: Home or Self Care 02/05/2025 Refill [facility] Oncology and Hematology - [place] [address] [place] [address] Aydin Carrasco MD Renal cell carcinoma of right kidney (CMS/HCC) (Primary Dx) 01/31/2025 Specialty Pharmacy [facility] [address] [place] [phone] Patricia Flower, PHARMACIST 01/31/2025 Specialty Pharmacy [facility] [address] [place] [phone] Patricia Flower, PHARMACIST Specialty Pharmacy Financial Assistance 01/22/2025 9:41 AM CDT - 01/22/2025 11:59 PM CDT [facility] [address] [place] [phone] Jesus Luciano, DPM Discharge Disposition: Home or Self Care 01/22/2025 Orders Only [facility] Oncology and Hematology - [place] [address] [place] [address] Aydin Carrasco MD Need for hepatitis B screening test (Primary Dx) 01/21/2025 External Device Data ST[facility] ABSTRACTION Provider, Abstract 01/20/2025 4:00 PM CDT Telephone Check Up [facility] Oncology and Hematology - [place] [address] [facility] [address] [place] [phone] Aydin Carrasco MD Renal cell carcinoma of right kidney (CMS/HCC) (Primary Dx) 01/09/2025 Orders Only [facility] Oncology and Hematology [facility] [address] [place] [address] [place] [phone] Aydin Carrasco MD 01/03/2025 Abstract [facility] Heart and Vascular Surgery [address] [facility] [address] [address] [facility] 101 [place] [address] Shanika Sebastian FNP 01/02/2025 3:30 PM CDT Office Visit [facility] Heart and Vascular Surgery [address] [facility] 101 [address] [facility] [address] [place] [address] Shanika Sebastian FNP PVD (peripheral vascular disease) (Primary Dx) 01/02/2025 1:31 PM CDT - 01/02/2025 11:59 PM CDT Hospital Encounter [facility] Heart and Vascular Testing [facility] [address] [facility] [address] [place] [address] Patricia Quezada NP Discharge Disposition: Home or Self Care 01/01/2025 11:00 AM CDT - 01/01/2025 11:59 PM CDT Hospital Encounter [facility] [address] [place] [address] Jesus Luciano, DPM Discharge Disposition: Home or Self Care 01/01/2025 External Device Data STL ABSTRACTION Provider, Abstract 12/21/2024 External Device Data [facility] ABSTRACTION Provider, Abstract 12/20/2024 External Device Data [facility] ABSTRACTION Provider, Abstract 12/18/2024 10:37 AM WIND FARM SUPPORT SPECIALIST - 12/18/2024 11:59 PM WIND FARM SUPPORT SPECIALIST Hospital Encounter [facility] [place] [address] [place] [address] Geistler, Jesus K, DPM Discharge Disposition: Home or Self Care 12/18/2024 External Device Data STL ABSTRACTION Provider, Abstract 12/17/2024 External Device Data STL ABSTRACTION Provider, Abstract 12/16/2024 9:15 AM WIND FARM SUPPORT SPECIALIST Office Visit [facility] Oncology and Hematology [facility] [address] [place] [address] Aydin Carrasco MD Renal cell carcinoma of right kidney (CMS/HCC) (Primary Dx) 12/11/2024 Abstract [facility] Oncology and Hematology [facility] [address] [place] [address] Aydin Carrasco MD 12/11/2024 Orders Only [facility] Oncology [facility] Hematology [facility] [address] [place] [address] Aydin Carrasco MD 12/06/2024 Telephone [facility] Heart and Vascular Surgery [address] [place] [address] [address] [address] Franca Dykes MD Question 12/03/2024 External Device Data STL ABSTRACTION Provider, Abstract 11/28/2024 Abstract [facility] Heart and Vascular Surgery [address] [place] [place] [address] [address] [address] Franca Dykes MD 11/28/2024 Telephone [facility] Heart and Vascular Surgery [address] [place] [address] [address] [address] Franca Dykes MD short term disability forms 11/27/2024 Telephone [facility] Heart and Vascular Surgery [address] [place] [address] [address] [address] Patricia Quezada, WILLIAM Needs Appointment 11/27/2024 Abstract [facility] Heart and Vascular Surgery [address] [place] [address] [address] [address] Franca Dykes MD 11/23/2024 11:37 AM WIND FARM SUPPORT SPECIALIST Anesthesia Event [facility] Operating Room [address] [place] [address] Reinier Dale MD Tao, Yongping, MD 11/23/2024 8:42 AM WIND FARM SUPPORT SPECIALIST - 11/23/2024 9:54 AM [facility] Surgery [facility] Operating Room [id number] [place] [phone] Jesus Luciano, DPNegro RIGHT GREAT TOE AMPUTATION 11/23/2024 Travel 11/20/2024 7:30 AM [facility] - 11/20/2024 5:21 PM [facility] Surgery [facility] Vascular Operating Room [id number] [place] [phone] Franca Dykes MD COMMON, SUPERFICIAL, AND PROFUNDA RIGHT FEMORAL ENDARTERECTOMY, RIGHT LOWER EXTREMITY ANGIOGRAM, IVUS AND SHOCKWAVE TO RIGHT SFA AND POPLITEAL, AND DRUG COATED BALLOON ANGIOPLASTY TO RIGHT SFA AND POPLITEAL 11/20/2024 7:30 AM W[employer] FARM SUPPORT SPECIALIST Anesthesia Event [facility] Operating Room [id number] [place] [address] Kianna Lu MD GrahekKavithaNasreen PA-C 11/19/2024 External Device Data [facility] ABSTRACTION Provider, Abstract 11/19/2024 External Device Data STL ABSTRACTION Provider, Abstract 11/19/2024 External Device Data STL ABSTRACTION Provider, Abstract 11/13/2024 6:57 PM WIND FARM SUPPORT SPECIALIST - 11/26/2024 6:16 PM [facility] Hospital Encounter [facility] General Surgery [address] [place] [address] Chong Garcia MD Idemudia, Osarenren, MD Bagam, Vaghdevi, MD Miller, Brian P, MD Suarez Solar, Pedro, MD Necrotic toes ([facility]) Discharge Disposition: Home or Self Care 11/13/2024 Travel from Last 3 Months Family History Medical [...] 20 02/05/2025 9:00 AM CDT Oxygen Saturation 99% 01/02/2025 3:08 PM CDT Inhaled Oxygen Concentration - - Weight 89.8 kg (198 lb) 02/05/2025 9:00 AM CDT Height 182.9 cm (6') 02/05/2025 9:00 AM CDT Body Mass Index 26.85 02/05/2025 9:00 AM CDT Plan of Treatment Upcoming Encounters Date Type Department Care Team (Late st Contact Info) Description 03/05/2025 9:45 AM CDT Office Visit [facility] Oncology and Hematology - [place] [address] [place] [address] Aydin Carrasco MD [address] [facility] [address] [place] [address] 03/05/2025 10:00 AM CDT Appointment [facility] [place] [address] [place] [phone] Jesus Luciano, DPNegro [address] [address] [place], [place] [phone] 04/14/2025 10:15 AM CDT Appointment [facility] [address] [facility] [address] [place] [address] Shanika Sebastian, SUPERVISOR DRY PASTE [address] [facility] [address] [place] [address] 04/14/2025 11:30 AM CDT Office Visit [facility] Heart and Vascular Surgery [address] [facility] 101 [address] [facility] 101 [place] [address] [place] [address] [facility] 101 [place] [address] Health Maintenance Due Date Last [...] 07/15/2022, 07/05/2022 Medical Devices Implanted Type Area Tool Room Attendant Device Identifier Shelf Expiration Date Model / Serial / Lot Patch Vascu-Guard 1.0x10cm [id number] - [id number] Implanted:Qty: 1 on 11/20/2024 by Franca Dykes MD at [facility] Right: Groin [employer] 09/03/2025 [id number] / / [id number] Patch Vascu-Guard 0.8x8cm Cardio Vg-0108 - [id number] Implanted:Qty: 1 on 11/20/2024 by Franca Dykes MD at [facility] Right: Groin [employer] 05/20/2026 [id number] / / [id number] Hemostatic Surgifoam Sz12-7 1971 - [id number] Implanted:Qty: 1 on 11/20/2024 by Franca Dykes MD at [facility] Hemostatic Right: Groin [employer] 03/11/2028 1972 / / [id number] Hemostatic Surgiflo 8ml W/ Thrombin 2994 - [id number] Implanted:Qty: 1 on 11/20/2024 by Franca Dykes MD at [facility] Hemostatic [employer] 10/15/2025 [id number] / / [id number] Procedures Procedure Name Priority Date/Time Associated Diagnosis Comments ANAEROBIC/AEROBIC CULTURE W GRAM STAIN Routine 01/22/2025 10:27 AM CDT 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, unspecified laterality (CMS/HCC) PATHOLOGY REPORT Routine 01/07/2025 3:59 PM CDT US ANKLE PRESSURE INDEX Routine 01/03/20 3:13 PM CDT PVD (peripheral vascular disease) ANAEROBIC/AEROBIC CULTURE W GRAM STAIN Routine 12/18/2024 11:34 AM W[employer] FARM SUPPORT SPECIALIST 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, unspecified laterality (CMS/HCC) BASIC METABOLIC PANEL Routine 12/11/2024 4:32 PM W[employer] FARM SUPPORT SPECIALIST CBC WITH AUTODIFFERENTIAL Routine 12/11/2024 11:49 AM W[employer] FARM SUPPORT SPECIALIST VANCOMYCIN LEVEL RANDOM Routine 11/26/19 4:39 AM W[employer] FARM SUPPORT SPECIALIST RENAL FUNCTION PANEL Routine 11/26/2024 4:39 AM WIND FARM SUPPORT SPECIALIST PTT Timed Study 11/25/2024 7:42 PM WIND FARM SUPPORT SPECIALIST TELEMETRY REPORT 11/25/2024 3:26 PM W[employer] FARM SUPPORT SPECIALIST TELEMETRY REPORT 11/25/2024 3:06 PM W[employer] FARM SUPPORT SPECIALIST TELEMETRY REPORT 11/25/2024 2:57 PM W[employer] FARM SUPPORT SPECIALIST TELEMETRY REPORT 11/25/2024 2:45 PM W[employer] FARM SUPPORT SPECIALIST PTT Routine 11/25/2024 12:14 PM W[employer] FARM SUPPORT SPECIALIST TELEMETRY REPORT 11/25/2024 10:16 AM W[employer] FARM SUPPORT SPECIALIST TELEMETRY REPORT 11/25/2024 9:59 AM WIND FARM SUPPORT SPECIALIST TELEMETRY REPORT 11/25/2024 8:03 AM WIND FARM SUPPORT SPECIALIST PTT Routine 11/25/2024 3:11 AM W[employer] FARM SUPPORT SPECIALIST RENAL FUNCTION PANEL Routine 11/25/2024 3:11 AM WIND FARM SUPPORT SPECIALIST PTT Timed Study 11/24/2024 11:08 PM WIND FARM SUPPORT SPECIALIST PTT Timed Study 11/24/2024 3:52 PM WIND FARM SUPPORT SPECIALIST PTT Routine 11/24/2024 7:29 AM WIND FARM SUPPORT SPECIALIST CBC WITHOUT DIFFERENTIAL Routine 11/24/2024 2:56 AM WIND FARM SUPPORT SPECIALIST RENAL FUNCTION PANEL Routine 11/24/2024 2:56 AM WIND FARM SUPPORT SPECIALIST PTT Routine 11/23/2024 7:41 PM W[employer] FARM SUPPORT SPECIALIST VANCOMYCIN LEVEL RANDOM Timed Study 11/23/19 2:30 PM WIND FARM SUPPORT SPECIALIST PT EVAL AND TREAT Routine 11/23/2024 1:3 0 PM WIND FARM SUPPORT SPECIALIST XR FOOT 3+ VW RIGHT Routine 11/23/2024 1 :04 PM WIND FARM SUPPORT SPECIALIST PATHOLOGY Pathology 11/23/2024 11:55 AM W[employer] FARM SUPPORT SPECIALIST ANAEROBIC/AEROBIC CULTURE W GRAM STAIN Routine 11/23/2024 11:55 AM WIND FARM SUPPORT SPECIALIST TOE(S) AMPUTATION 11/23/2024 8:4 2 AM WIND FARM SUPPORT SPECIALIST UNKNOWN Special Needs SAW. DR ADAN T/F HIS OTHER CASE. TRANSFUSE PACKED RED BLOOD CELLS Routine 11/23/2024 8:36 AM WIND FARM SUPPORT SPECIALIST PREPARE RED BLOOD CELLS Routine 11/23/19 6:58 AM WIND FARM SUPPORT SPECIALIST TYPE AND SCREEN Routine 11/23/2024 3:44 AM WIND FARM SUPPORT SPECIALIST CBC WITH DIFFERENTIAL Routine 11/23/2024 3:44 AM WIND FARM SUPPORT SPECIALIST PTT Routine 11/23/2024 3:44 AM WIND FARM SUPPORT SPECIALIST RENAL FUNCTION PANEL Routine 11/23/2024 3:44 AM WIND FARM SUPPORT SPECIALIST PTT Timed Study 11/22/2024 10:33 PM WIND FARM SUPPORT SPECIALIST POTASSIUM LEVEL Stat 11/22/2024 4:05 PM WIND FARM SUPPORT SPECIALIST PTT Timed Study 11/22/2024 4:05 PM WIND FARM SUPPORT SPECIALIST HEMODIALYSIS Routine 11/22/2024 12:01 PM W[employer] FARM SUPPORT SPECIALIST VANCOMYCIN LEVEL RANDOM Stat 11/22/19 25 6:10 AM WIND FARM SUPPORT SPECIALIST CBC WITH DIFFERENTIAL Routine 11/22/2024 6:10 AM WIND FARM SUPPORT SPECIALIST RENAL FUNCTION PANEL Routine 11/22/2024 6:10 AM WIND FARM SUPPORT SPECIALIST PTT Timed Study 11/22/2024 6:10 AM WIND FARM SUPPORT SPECIALIST PTT Timed Study 11/21/2024 8:09 PM WIND FARM SUPPORT SPECIALIST PTT Timed Study 11/21/2024 9:31 AM WIND FARM SUPPORT SPECIALIST BASIC METABOLIC PANEL Stat 11/21/2024 6:01 AM W[employer] FARM SUPPORT SPECIALIST MAGNESIUM LEVEL Stat 11/21/2024 6:01 AM WIND FARM SUPPORT SPECIALIST POC GLUCOSE Routine 11/21/2024 5:39 AM WIND FARM SUPPORT SPECIALIST EKG 12-LEAD Stat 11/21/2024 5:29 AM WIND FARM SUPPORT SPECIALIST CBC WITH DIFFERENTIAL Routine 11/21/2024 2:25 AM WIND FARM SUPPORT SPECIALIST PTT Timed Study 11/21/2024 2:24 AM W[employer] FARM SUPPORT SPECIALIST VANCOMYCIN LEVEL RANDOM Timed Study 11/21/19 2:24 AM WIND FARM SUPPORT SPECIALIST RENAL FUNCTION PANEL Routine 11/21/2024 2:24 AM WIND FARM SUPPORT SPECIALIST VERIFICATION BLOOD GROUP Stat 11/20/2024 8:52 PM W[employer] FARM SUPPORT SPECIALIST HEMOGLOBIN AND HEMATOCRIT Stat 11/20/2024 3:13 PM WIND FARM SUPPORT SPECIALIST POC ACTIVATED CLOTTING TIME Routine 11/20/2024 1:23 PM WIND FARM SUPPORT SPECIALIST XR OR Routine 11/20/2024 1:12 PM W[employer] FARM SUPPORT SPECIALIST TRANSFUSE PACKED RED BLOOD CELLS Stat 11/20/2024 12:57 PM W[employer] FARM SUPPORT SPECIALIST POC ACTIVATED CLOTTING TIME Routine 11/20/2024 12:52 PM W[employer] FARM SUPPORT SPECIALIST PREPARE RED BLOOD CELLS Stat 11/20/19 12:18 PM W[employer] FARM SUPPORT SPECIALIST PREPARE RED BLOOD CELLS Routine 11/20/19 12:18 PM WIND FARM SUPPORT SPECIALIST POC ACTIVATED CLOTTING TIME Routine 11/20/2024 12:18 PM WIND FARM SUPPORT SPECIALIST POC LACTIC ACID Routine 11/20/2024 12:10 PM W[employer] FARM SUPPORT SPECIALIST OXIMETRY Routine 11/20/2024 12:10 PM W[employer] FARM SUPPORT SPECIALIST METHEMOGLOBIN QUANTITATIVE Routine 11/20/2024 12:10 PM W[employer] FARM SUPPORT SPECIALIST CARBOXYHEMOGLOBIN Routine 11/20/2024 12:10 PM WIND FARM SUPPORT SPECIALIST BLOOD GAS,(INCL. H+H, LYTES, GLUC) Routine 11/20/2024 12:10 PM WIND FARM SUPPORT SPECIALIST POC ACTIVATED CLOTTING TIME Routine 11/20/2024 11:40 AM WIND FARM SUPPORT SPECIALIST POC ACTIVATED CLOTTING TIME Routine 11/20/2024 11:33 AM WIND FARM SUPPORT SPECIALIST POC ACTIVATED CLOTTING TIME Routine 11/20/2024 10:57 AM WIND FARM SUPPORT SPECIALIST POC ACTIVATED CLOTTING TIME Routine 11/20/2024 10:53 AM WIND FARM SUPPORT SPECIALIST POC ACTIVATED CLOTTING TIME Routine 11/20/2024 10:42 AM WIND FARM SUPPORT SPECIALIST POC ACTIVATED CLOTTING TIME Routine 11/20/2024 10:10 AM WIND FARM SUPPORT SPECIALIST POC ACTIVATED CLOTTING TIME Routine 11/20/2024 9:56 AM WIND FARM SUPPORT SPECIALIST POC ACTIVATED CLOTTING TIME Routine 11/20/2024 9:25 AM WIND FARM SUPPORT SPECIALIST POC LACTIC ACID Routine 11/20/2024 8:50 AM WIND FARM SUPPORT SPECIALIST OXIMETRY Routine 11/20/2024 8:50 AM W[employer] FARM SUPPORT SPECIALIST METHEMOGLOBIN QUANTITATIVE Routine 11/20/2024 8:50 AM WIND FARM SUPPORT SPECIALIST CARBOXYHEMOGLOBIN Routine 11/20/2024 8:5 0 AM WIND FARM SUPPORT SPECIALIST BLOOD GAS,(INCL. H+H, LYTES, GLUC) Routine 11/20/2024 8:50 AM WIND FARM SUPPORT SPECIALIST CA ANES INSERT CATH, ART, PERCUT, SHORTTERM Routine 11/20/2024 8:36 AM WIND FARM SUPPORT SPECIALIST PERIPHERAL IV ADULT Routine 11/20/2024 8 :15 AM WIND FARM SUPPORT SPECIALIST CA ANES VNPNXR 3 YEARS/> PHYS/QHP SKILL Routine 11/20/2024 8:15 AM WIND FARM SUPPORT SPECIALIST CA ANES INSERT ENDOTRACHEAL AIRWAY Routine 11/20/2024 7:36 AM WIND FARM SUPPORT SPECIALIST FEMORAL ENDARTERECTOMY 7:26 AM WIND FARM SUPPORT SPECIALIST PVD Special Needs DR ADAN EV1 RM DR ADAN 7:30 START. TIME OK PER VICTOR HUGO/ CHARGE NURSE. TYPE AND SCREEN Stat 11/20/2024 3:53 AM WIND FARM SUPPORT SPECIALIST CBC WITH DIFFERENTIAL Stat 11/20/2024 3:52 AM WIND FARM SUPPORT SPECIALIST RENAL FUNCTION PANEL Stat 11/20/2024 3:52 AM WIND FARM SUPPORT SPECIALIST PTT Timed Study 11/20/2024 3:52 AM WIND FARM SUPPORT SPECIALIST TELEMETRY REPORT 11/19/2024 2:46 PM WIND FARM SUPPORT SPECIALIST TELEMETRY REPORT 11/19/2024 2:30 PM WIND FARM SUPPORT SPECIALIST CBC WITH DIFFERENTIAL Stat 11/19/2024 2:27 PM WIND FARM SUPPORT SPECIALIST BASIC METABOLIC PANEL Stat 11/19/2024 2:27 PM WIND FARM SUPPORT SPECIALIST PTT Stat 11/19/2024 2:27 PM WIND FARM SUPPORT SPECIALIST TELEMETRY REPORT 11/19/2024 2:01 PM WIND FARM SUPPORT SPECIALIST TELEMETRY REPORT 11/19/2024 1:33 PM WIND FARM SUPPORT SPECIALIST TELEMETRY REPORT 11/19/2024 11:40 AM WIND FARM SUPPORT SPECIALIST TELEMETRY REPORT 11/19/2024 11:31 AM WIND FARM SUPPORT SPECIALIST TELEMETRY REPORT 11/19/2024 10:22 AM WIND FARM SUPPORT SPECIALIST TELEMETRY REPORT 11/19/2024 9:57 AM WIND FARM SUPPORT SPECIALIST TELEMETRY REPORT 11/19/2024 9:20 AM WIND FARM SUPPORT SPECIALIST PTT Routine 11/19/2024 3:06 AM WIND FARM SUPPORT SPECIALIST CBC WITH DIFFERENTIAL Routine 11/19/2024 3:06 AM WIND FARM SUPPORT SPECIALIST RENAL FUNCTION PANEL Routine 11/19/2024 3:06 AM WIND FARM SUPPORT SPECIALIST PTT Stat 11/18/2024 7:43 PM WIND FARM SUPPORT SPECIALIST VANCOMYCIN LEVEL RANDOM Timed Study 11/18/19 12:03 PM WIND FARM SUPPORT SPECIALIST RENAL FUNCTION PANEL Routine 11/18/2024 12:03 PM WIND FARM SUPPORT SPECIALIST PTT Timed Study 11/18/2024 7:48 AM WIND FARM SUPPORT SPECIALIST EXTRA TUBE (BLUE) Routine 11/18/2024 12:41 AM WIND FARM SUPPORT SPECIALIST EXTRA TUBE Routine 11/18/2024 12:41 AM WIND FARM SUPPORT SPECIALIST PTT Timed Study 11/18/2024 12:40 AM WIND FARM SUPPORT SPECIALIST UNFRACTIONATED HEPARIN ACTIVITY Routine 11/17/2024 5:21 PM WIND FARM SUPPORT SPECIALIST PTT Routine 11/17/2024 5:21 PM WIND FARM SUPPORT SPECIALIST EKG 12-LEAD Routine 11/17/2024 12:43 PM WIND FARM SUPPORT SPECIALIST CBC WITH DIFFERENTIAL Routine 11/17/2024 10:09 AM WIND FARM SUPPORT SPECIALIST RENAL FUNCTION PANEL Routine 11/17/2024 10:09 AM WIND FARM SUPPORT SPECIALIST NM MYOCARD PERF IMAG SPECT MULT Routine 11/17/2024 9:21 AM WIND FARM SUPPORT SPECIALIST NM PHARMACOLOGICAL STRESS TEST Routine 11/17/2024 8:23 AM WIND FARM SUPPORT SPECIALIST ECHOCARDIOGRAM W/ CONTRAST AGENT Routine 11/16/2024 4:48 PM WIND FARM SUPPORT SPECIALIST LIPID PANEL Routine 11/16/2024 5:09 AM WIND FARM SUPPORT SPECIALIST UNFRACTIONATED HEPARIN ACTIVITY Timed Study 11/16/2024 5:09 AM WIND FARM SUPPORT SPECIALIST VANCOMYCIN LEVEL RANDOM Timed Study 11/16/19 25 5:09 AM WIND FARM SUPPORT SPECIALIST RENAL FUNCTION PANEL Routine 11/16/2024 5:09 AM WIND FARM SUPPORT SPECIALIST CTA ABD AORTA BI ILIOFEM W AND/OR WO Routine 11/15/2024 6:53 PM WIND FARM SUPPORT SPECIALIST CTA CHEST W AND/OR WO CONTRAST Routine 11/15/2024 6:51 PM WIND FARM SUPPORT SPECIALIST BLOOD CULTURE Routine 11/15/2024 3:23 PM WIND FARM SUPPORT SPECIALIST BLOOD CULTURE Routine 11/15/2024 3:23 PM WIND FARM SUPPORT SPECIALIST BLOOD CULTURE Routine 11/15/2024 3:17 PM WIND FARM SUPPORT SPECIALIST BLOOD CULTURE Routine 11/15/2024 3:17 PM WIND FARM SUPPORT SPECIALIST UNFRACTIONATED HEPARIN ACTIVITY Stat 11/15/2024 8:48 AM W[employer] FARM SUPPORT SPECIALIST HEPATITIS B SURFACE ANTIGEN Routine 11/15/2024 1:48 AM W[employer] FARM SUPPORT SPECIALIST UNFRACTIONATED HEPARIN ACTIVITY Stat 11/15/2024 1:48 AM WIND FARM SUPPORT SPECIALIST VANCOMYCIN LEVEL RANDOM Timed Study 11/15/19 25 1:48 AM WIND FARM SUPPORT SPECIALIST RENAL FUNCTION PANEL Routine 11/15/2024 1:48 AM WIND FARM SUPPORT SPECIALIST CBC WITH DIFFERENTIAL Routine 11/15/2024 1:48 AM WIND FARM SUPPORT SPECIALIST MAGNESIUM LEVEL Routine 11/15/2024 1:48 AM WIND FARM SUPPORT SPECIALIST UNFRACTIONATED HEPARIN ACTIVITY Timed Study 11/14/2024 5:09 PM WIND FARM SUPPORT SPECIALIST US ANKLE PRESSURE INDEX Routine 11/14/19 4:50 PM WIND FARM SUPPORT SPECIALIST US VENOUS DOPPLER LEG BILATERAL Routine 11/14/2024 4:48 PM WIND FARM SUPPORT SPECIALIST MRI FOOT WO CONTRAST LEFT Routine 11/14/2024 3:11 PM W[employer] FARM SUPPORT SPECIALIST MRI FOOT WO CONTRAST RIGHT Routine 11/14/2024 2:47 PM W[employer] FARM SUPPORT SPECIALIST UNFRACTIONATED HEPARIN ACTIVITY Timed Study 11/14/2024 8:52 AM WIND FARM SUPPORT SPECIALIST MAGNESIUM LEVEL Routine 11/14/2024 12:58 AM WIND FARM SUPPORT SPECIALIST COMPREHENSIVE METABOLIC PANEL Routine 11/14/2024 12:58 AM WIND FARM SUPPORT SPECIALIST CBC WITH DIFFERENTIAL Routine 11/14/2024 12:58 AM WIND FARM SUPPORT SPECIALIST HEMOGLOBIN A1C Routine 11/14/2024 12:58 AM WIND FARM SUPPORT SPECIALIST UNFRACTIONATED HEPARIN ACTIVITY Stat 11/14/2024 12:46 AM WIND FARM SUPPORT SPECIALIST PTT Stat 11/14/2024 12:46 AM WIND FARM SUPPORT SPECIALIST UNFRACTIONATED HEPARIN ACTIVITY Routine 11/14/2024 12:46 AM WIND FARM SUPPORT SPECIALIST US DOPPLER VENOUS ARM BILATERAL Routine 11/14/2024 12:20 AM WIND FARM SUPPORT SPECIALIST PT EVAL AND TREAT Routine 11/13/2024 9:5 0 PM WIND FARM SUPPORT SPECIALIST OT EVAL AND TREAT Routine 11/13/2024 9:5 0 PM WIND FARM SUPPORT SPECIALIST MRI PRIOR STUDY Routine 11/10/2024 6:35 AM W[employer] FARM SUPPORT SPECIALIST MRI PRIOR STUDY Routine 11/10/2024 6:30 AM WIND FARM SUPPORT SPECIALIST X-RAY PRIOR STUDY Routine 11/09/2024 8:0 0 PM W[employer] FARM SUPPORT SPECIALIST X-RAY PRIOR STUDY Routine 11/09/2024 7:5 5 PM WIND FARM SUPPORT SPECIALIST X-RAY PRIOR STUDY Routine 11/09/2024 4:4 5 AM W[employer] FARM SUPPORT SPECIALIST X-RAY PRIOR STUDY Routine 11/09/2024 4:4 0 AM WIND FARM SUPPORT SPECIALIST X-RAY PRIOR STUDY Routine 11/09/2024 3:4 5 AM W[employer] FARM SUPPORT SPECIALIST X-RAY PRIOR STUDY Routine 11/09/2024 3:4 0 AM W[employer] FARM SUPPORT SPECIALIST CT PRIOR STUDY Routine 11/09/2024 3:30 AM WIND FARM SUPPORT SPECIALIST from Last 3 Months Results * (ABNORMAL) ANAEROBIC/AEROBIC CULTURE W GRAM STAIN (01/22/2025 10:27 AM CDT) Only the most recent of3 resultswithin the time period is included. ANAEROBIC CULTURE SEE NOTE Qu CounterceptsSandeep Novak Comment: CULTURE, ANAEROBIC BACTERIA W/GRAM STAIN Micro Number: [id number] Test Status: Final Specimen Source: Foot, right Specimen Quality: Adequate Gram Stain: No white blood cells seen Many Mixed bacterial padmini Result: Heavy growth of Prevotella species Prevotella sp. INT DAVID 1 THERAPY COMMENTS Note 1: This isolate is beta-lactamase Positive. A Positive result predicts resistance to Penicillin, Ampicillin and Amoxicillin. AEROBIC CULTURE SEE NOTE(A) Concur JapanSandeep Novak Comment: CULTURE, AEROBIC BACTERIA Micro Number: [id number] Test Status: Final Specimen Source: Right foot [...] values are not provided. Test Performed at: [place] [address] [place] [address] Haydee Thomas Lesion/Drainage Fluid (Foot, right) 01/22/2025 10:27 AM CDT 01/23/2025 2:50 AM CDT Jesus Luciano DPM MICROBIOLOGY - [facility]AL [facility] Final Result [facility] [address] [phone] [place] [address] [place] [address] * PATHOLOGY REPORT (01/07/2025 3:59 PM CDT) Aydin Carrasco MD PATHOLOGY/CYTOLOGY ORDERABLES F inal Result * US ANKLE PRESSURE INDEX (01/02/2025 3:13 PM CDT) Only the most recent of2 resultswithin the time period is included. Anatomical Region Laterality Modality Lower Extremity Ultrasound 01/02/2025 2:30 PM CDT Narrative 01/02/2025 4:08 PM CDT [facility] Heart and Vascular Testing NADER Arterial Physiologic Evaluation Patient: Jc De Leon Study ID: 1 Gender: M : 1960 Age: 64 Race: CAU Height 182.9cm Study Date: 01/02/2025 Weight: 89.8kg Access. #: [id number] *Referring Physician:Patricia Montanez, Patricia Sawyer *Ordering Physician:Patricia Montanez *Continuous Improvement Coordinator:Dory Underwood RVS Indications: PVD. History: Risk factors: [...] Hg Prepared and Electronically Authenticated Mariaa Mathew [id number] Procedure Note Mariaa Mathew MD - 01/02/2025 [facility] Testing NADER Arterial Physiologic Evaluation Patient: Jc De Leon Study ID: 1 Gender: M : 1960 Age: 64 Race: HUNTER Height 182.9cm Study Date: 01/02/2025 Weight: 89.8kg Access. #: [id number] *Referring Physician:Patricia Montanez AmyElizabeth *Ordering Physician:Patricia Montanez *Continuous Improvement Coordinator:* Dory Shahid RVS Indications: PVD. History: Risk factors: Recent [...] Hg Prepared and Electronically Authenticated Mariaa Mathew [id number]:12 Patricia Quezada NP US ORDERABLES Final Res ult * BASIC METABOLIC PANEL (12/11/2024 4:32 PM [employer]) Only the most recent of3 resultswithin the time period is included. Blood Aydin Carrasco MD CHEMISTRY ORDERABLES Final Resu lt * CBC WITH AUTODIFFERENTIAL (12/11/2024 11:49 AM [employer]IST) Blood Aydin Carrasco MD HEMATOLOGY ORDERABLES Final Res ult * VANCOMYCIN LEVEL RANDOM (11/26/2024 4:39 AM [employer]IST) Only the most recent of7 resultswithin the time period is included. VANCOMYCIN, RANDOM 17.8 No Ref Range Estab ug/mL 11/26/2024 6:35 AM [employer]IST [facility] [employer] [facility] Blood Venipuncture / Unknown 11/26/2024 4:39 AM [employer]IST 11/26/2024 6:05 AM [employer]IST us Diego Mcknight MD CHEMISTRY ORDERABLES Final Result [facility] CLIA# [id number] [place] [address] * (ABNORMAL) RENAL FUNCTION PANEL (11/26/2024 4:39 AM [employer]IST) Only the most recent of12 resultswithin the time period is included. SODIUM 131(L) 136 - 145 mmol/L 11/26/2024 6:35 AM [facility] POTASSIUM 4.9 3.4 - 5.1 mmol/L 11/26/2024 6:35 AM [facility] CHLORIDE 96(L) 98 - 107 mmol/L 11/26/2024 6:35 AM [facility] CO2 21(L) 22 - 29 mmol/L 11/26/2024 6:35 AM [facility] CALCIUM 10.3 8.6 - 10.4 mg/dL 11/26/2024 6:35 AM [facility] BUN 53(H) 6 - 20 mg/dL 11/26/2024 6:35 AM [facility] CREATININE 7.72(H) 0.67 - 1.17 mg/dL 11/26/2024 6:35 AM [facility] GLUCOSE 100(H) 74 - 99 mg/dL 11/26/2024 6:35 AM [facility] ALBUMIN 3.3(L) 3.5 - 5.2 g/dL 11/26/2024 6:35 AM [facility] PHOSPHORUS 4.5 2.5 - 4.5 mg/dL 11/26/2024 6:35 AM [facility] GFR 7(L) >=60 mL/min/1.7 3 sq meter 11/26/2024 6:35 AM [facility] Comment:eGFR calculated with 2020 CKD-EPI equation. Vegetarian diet, extremely high or low muscle mass, and may affect results. Cystatin C with Glomerular Filtration Rate is a suitable alternative for these patients. ANION GAP 14 8 - 16 mmol/L 11/26/2024 6:35 AM [employer] [facility] Blood Venipuncture / Unknown 11/26/2024 4:39 AM [employer]IST 11/26/2024 6:05 AM [employer]IST Jesus Luciano DPM CHEMISTRY ORDERABLES Final Result Performing Organization Address City/[facility] Co de Phone Number [id number] [place] [address] * (ABNORMAL) PTT (11/25/2024 7:42 PM [employer]IST) Only the most recent of22 resultswithin the time period is included. PTT 70.1(H) 23.1 - 37.1 seconds 11/25/2024 8:24 PM [employer] [facility] Blood Venipuncture / Unknown 11/25/2024 7:42 PM [employer]IST 11/25/2024 7:59 PM [employer]IST Diego Mcknight MD HEMATOLOGY ORDERABLES Selin l Result Performing Organization Address [facility] Co de Phone Number [facility] [id number] [place] [address] * TELEMETRY REPORT (11/25/2024 3:26 PM [employer]IST) Only the most recent of16 resultswithin the time period is included. Provider Scanning ECG ORDERABLES Final Result * (ABNORMAL) CBC WITHOUT DIFFERENTIAL (11/24/2024 2:56 AM [employer]IST) WBC 8.9 4.0 - 9.8 K/uL 11/24/2024 5:01 AM [employer] [facility] RBC 2.20(L) 4.50 - 5.40 M/uL 11/24/2024 5:01 AM [facility] HEMOGLOBIN 7.3(L) 13.6 - 16.5 g/dL 11/24/2024 5:01 AM [facility] HEMATOCRIT 22.7(L) 40.0 - 48.0 % 11/24/2024 5:01 AM [facility] MCV 103.2(H) 82.0 - 99.0 fL 11/24/2024 5:01 AM [facility] MCH 33.2(H) 27.2 - 32.6 pg 11/24/2024 5:01 AM [facility] MCHC 32.2 31.5 - 35.5 g/dL 11/24/2024 5:01 AM [facility] PLATELETS 332 140 - 350 K/uL 11/24/2024 5:01 AM [facility] MPV 10.2 9.3 - 12.4 fL 11/24/2024 5:01 AM [facility] RDW 17.3(H) 11.5 - 14.5 % 11/24/2024 5:01 AM [facility] RDW-STDEV 65.5(H) 37.1 - 48.7 fL 11/24/2024 5:01 AM [facility] Blood Venipuncture / Unknown 11/24/2024 2:56 AM [employer] 11/24/2024 5:01 AM [employer] us Diego Mcknight MD HEMATOLOGY ORDERABLES Selin l Result [facility] CLIA# [id number] [place] [address] * XR FOOT 3+ VW RIGHT (11/23/2024 1:04 PM [employer]IST) Anatomical Region Laterality Modality Ankle / Foot Computed Radiogr aphy 11/23/2024 1:04 PM [employer]IST Impressions 11/23/2024 1:14 PM [employer]IST IMPRESSION: 1. Interval first digit amputation. DICTATION LOCATION: Location [address] [place] [address] Narrative 11/23/2024 1:14 PM [employer]IST EXAMINATION: XR FOOT 3+ VW RIGHT [...] Interval first digit amputation. DICTATION LOCATION: Location [address] [place] [address] Jesus Luciano DPM DIAGNOSTIC IMAGING ORDERABL ES Final Result * TRANSFUSE RED BLOOD CELLS (11/23/2024 12:36 PM [employer]IST) Only the most recent of2 resultswithin the time period is included. Reinier Dale MD BLOOD TRANSFUSI ON ORDERABLES Final Result * PATHOLOGY (11/23/2024 11:55 AM [employer]IST) CASE REPORT Surgical Pathology Report Case: [id number] Authorizing Provider: Jesus Luciano DPM Collected: 11/23/2024 11:55 AM Ordering Location: [facility] Received: 11/25/2024 09:35 AM Operating Room Pathologist: Shirley Tran MD Specimens: A) - Bone, proximal first metatarsal, Toe Great, right B) - Toe Great, right, right great toe 11/27/2024 3:40 PM [facility] FINAL DIAGNOSIS Bone, proximal first metatarsal, excision - Bone with focal acute inflammation, consistent with focal acute osteomyelitis - Bone with degenerative/regenera tive change Foot, right great toe, amputation - Skin and soft tissue with ulceration, abscess, and devitalization/necros is - Bone with devitalization/necros is 11/27/2024 3:40 PM [facility] at 1539 [employer]IST GROSS DESCRIPTION A. Received in formalin [...] lesion submitted after decalcification 11/27/2024 3:40 PM [facility] MICROSCOPIC DESCRIPTION Microscopic review supports the diagnosis. 11/27/2024 3:40 PM [facility] OPERATIVE PROCEDURE 1: TOE(S) AMPUTATION 11/27/2024 3:40 PM [facility] CLINICAL INFORMATION UNKNOWN 11/27/2024 3:40 PM [facility] COMMENT Immunohistochemical stains were performed, if any, and interpreted at [facility] ([facility]) Laboratory with appropriately staining controls. This test was developed and its performance characteristics determined by [facility] Lab. It has not been cleared [...] these and other antigens. 11/27/2024 3:40 PM [employer] [facility] Tissue ENTIRE BONE ORGAN / Unknown Collection / Unknown 11/23/2024 11:55 AM [employer]IST 11/25/2024 9:35 AM [employer] Tissue specimen (specimen) (Toe Great, right) Collection / Unknown 11/23/2024 11:55 AM [employer]IST 11/25/2024 9:35 AM [employer]IST Jesus Luciano DPNegro PATHOLOGY/CYTOLOGY ORDERABL ES Final Result [facility] CLIA# [id number] [place] [address] * PREPARE RED BLOOD CELLS (11/23/2024 6:58 AM [employer] SPECIALIST) Only the most recent of3 resultswithin the time period is included. COMPONENT TYPE [id number] [facility] COMPONENT IDENTIFICATION [id number] [facility] ABO O [facility] RH POS [facility] CROSSMATCH Compatible [facility] COMPONENT STATUS Transfused ME [facility] COMPONENT EXPIRATION DATE/TIME [id number] [facility] COMPONENT CODING SYSTEM [address] [facility] VOLUME, BLOOD PRODUCT 350 [facility] Other, specify 11/23/2024 6: 58 AM [employer]IST Reinier Dale MD LAB TRANSFUSION ORDERABLES Edited Result - Final [facility] CLIA# [id number] [place] [address] * (ABNORMAL) CBC WITH DIFFERENTIAL (11/23/2024 3:44 AM [employer]IST) Only the most recent of9 resultswithin the time period is included. WBC 9.6 4.0 - 9.8 K/uL 11/23/2024 4:11 AM [facility] RBC 2.12(L) 4.50 - 5.40 M/uL 11/23/2024 4:11 AM [facility] HEMOGLOBIN 7.0(L) 13.6 - 16.5 g/dL 11/23/2024 4:11 AM [facility] HEMATOCRIT 21.9(L) 40.0 - 48.0 % 11/23/2024 4:11 AM [facility] MCV 103.3(H) 82.0 - 99.0 fL 11/23/2024 4:11 AM [facility] MCH 33.0(H) 27.2 - 32.6 pg 11/23/2024 4:11 AM [facility] MCHC 32.0 31.5 - 35.5 g/dL 11/23/2024 4:11 AM [facility] RDW 16.6(H) 11.5 - 14.5 % 11/23/2024 4:11 AM [facility] RDW-STDEV 62.7(H) 37.1 - 48.7 fL 11/23/2024 4:11 AM [facility] PLATELETS 346 140 - 350 K/uL 11/23/2024 4:11 AM [facility] MPV 9.8 9.3 - 12.4 fL 11/23/2024 4:11 AM [employer]IST [facility] NEUTROPHILS 74 % 11/23/2024 4:11 AM [employer]IST [facility] LYMPHOCYTES 13 % 11/23/2024 4:11 AM [employer] [facility] MONOCYTES 10 % 11/23/2024 4:11 AM [employer]IST [facility] EOSINOPHILS 2 % 11/23/2024 4:11 AM [employer]IST [facility] BASOPHILS 1 % 11/23/2024 4:11 AM [facility] IMMATURE GRANULOCYTES 1 % 11/23/2024 4:11 AM [facility] Comment:IG (Immature Granulo cyte) count includes Metamyelocytes, Myelocytes, and Promyelocytes NEUTROPHIL ABSOLUTE 7.09(H) 1.90 - 7.00 K/uL 11/23/2024 4:11 AM [facility] LYMPHOCYTE ABSOLUTE 1.19 0.70 - 4.50 K/uL 11/23/2024 4:11 AM [facility] MONOCYTE ABSOLUTE 0.94 0.10 - 1.30 K/uL 11/23/2024 4:11 AM [facility] EOSINOPHIL ABSOLUTE 0.20 0.00 - 0.70 K/uL 11/23/2024 4:11 AM [facility] BASOPHILS ABSOLUTE 0.07 0.00 - 0.20 K/uL 11/23/2024 4:11 AM [facility] IMMATURE GRANULOCYTES ABSOLUTE 0.06(H) 0.00 - 0.03 K/uL 11/23/2024 4:11 AM [facility] Blood Venipuncture / Unknown 11/23/2024 3:44 AM [employer]IST 11/23/2024 4:11 AM [employer] Noy Jackson DO HEMATOLOGY ORDERABLES Selin l Result [facility] CLNE# [id number] [place] [address] * TYPE AND SCREEN (11/23/2024 3:44 AM [employer]IST) Only the most recent of2 resultswithin the time period is included. ABO GROUP O 11/23/2024 4:42 AM [facility] RH (D) TYPE Positive 11/23/2024 4:42 AM [facility] ANTIBODY SCREEN Negative 11/23/2024 4:42 AM [facility] Blood Venipuncture / Unknown 11/23/2024 3:44 AM [employer]IST 11/23/2024 3:50 AM [employer]IST Noy Jackson DO BLOOD BANK ORDERABLES Edit ed Result - Final [facility] [id number] [place] [address] * POTASSIUM LEVEL (11/22/2024 4:05 PM [employer] SPECIALIST) POTASSIUM 4.6 3.4 - 5.1 mmol/L 11/22/2024 5:15 PM [employer]IST [facility] Blood Venipuncture / Unknown 11/22/2024 4:05 PM [employer] SPECIALIST 11/22/2024 4:26 PM [employer]IST Kianna Lu MD CHEMISTRY ORDERABLES Final Resul t Performing Organization Address City/[facility]/ZIP Co de Phone Number [facility] [facility] [id number] [place] [address] * HEMODIALYSIS (11/22/2024 12:01 PM [employer]IST) Narrative Karissa Au, LEEROY - 11/22/2024 12:01 PM [employer]IST Karissa Au, LEEROY 11/22/2024 12:03 PM Hemodialysis [...] Status: Right forearm fistula with + bruit/thrill. Taft removed. Direct pressure held until hemostasis achieved. [...] (200 lb 1.6 oz), SpO2 98%. Karissa Au RN Rl Dueñas MD DIALYSIS ORDERABLES Final Result * MAGNESIUM LEVEL (11/21/2024 6:01 AM [employer]IST) Only the most recent of3 resultswithin the time period is included. MAGNESIUM 2.1 1.6 - 2.6 mg/dL 11/21/2024 6:44 AM [employer]IST [facility] Blood Venipuncture / Unknown 11/21/2024 6:01 AM [employer]IST 11/21/2024 6:07 AM [employer]IST Roni Barahona PA-C CHEMISTRY ORDERABLES Final Result Performing Organization Address City/[facility]/ZIP Co de Phone Number [facility] CLIA# [id number] [place] [address] * POC GLUCOSE (11/21/2024 5:39 AM [employer]IST) GLUCOSE POC 90 74 - 99 mg/dL 11/21/2024 5:39 AM [employer]IST [facility] POINT OF CARE SPECIMEN SOURCE, GLUCOSE POC Whole Blood 11/21/2024 5:39 AM [employer]IST [facility] POINT OF CARE Blood, whole 11/21/2024 5:39 AM [employer] SPECIALIST 11/21/2024 11:05 AM [employer]IST Diego Mcknight MD POINT OF CARE TESTING Selin l Result [facility] POINT OF CARE CLIA # [id number] [place] [address] * EKG 12-LEAD (11/21/2024 5:29 AM [employer] SPECIALIST) Only the most recent of2 resultswithin the time period is included. 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 : 1960 Requested By: CHONG GARCIA Order Number: [id number] Reading : Chong Veloz Measurements Intervals Jackson Rate: 79 P: 0 CA: 0 QRS: 17 QRSD: 100 T: 122 QT: 412 QTc: 472 Interpretive Statements Atrial fibrillation ST & Marked T wave abnormality, consider anterolateral ischemia Prolonged QT Abnormal ECG Compared to ECG 11/17/2024 12:43:44 Prolonged QT interval now present Electronically Signed On 11-21-2024 7:30:28 [employer]IST by Chong Veloz Procedure Note Chong Veloz MD - 11/21/2024 [place] [id number] Test Date: 2024-11-21 Pat Name: JC DE LEON Department: 98 Room: [address] [place] [address] 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1960 Requested By: CHONG GARCIA Order Number: [id number] Reading MD: Chong Veloz Measurements Intervals Jackson Rate: 79 P: 0 CA: 0 QRS: 17 QRSD: 100 T: 122 QT: 412 QTc: 472 Interpretive Statements Atrial fibrillation ST & Marked T wave abnormality, consider anterolateral ischemia Prolonged QT Abnormal ECG Compared to ECG 11/17/2024 12:43:44 Prolonged QT interval now present Electronically Signed On 11-21-2024 7:30:28 [employer] SPECIALIST by Chong Veloz us Roni Barahona PA-C ECG ORDERABLES Final Resul t INTERFACE SYSTEM Refer to clinic/hospital department * VERIFICATION BLOOD GROUP (11/20/2024 8:52 PM [employer] SPECIALIST) ABO GROUP O 11/20/2024 10:00 [address] [employer] [facility] RH (D) TYPE Positive 11/20/2024 10:00 [address] [employer] [facility] Blood Venipuncture / Unknown 11/20/2024 8:52 PM [employer] SPECIALIST 11/20/2024 9:29 PM [employer]IST Franca Dykes MD BLOOD BANK ORDERAB LES Final Result [facility] CLIA# [id number] [place] [address] * (ABNORMAL) HEMOGLOBIN AND HEMATOCRIT (11/20/2024 3:13 PM [employer] SPECIALIST) HEMOGLOBIN 7.3(L) 13.6 - 16.5 g/dL 11/20/2024 3:31 PM [employer] [facility] HEMATOCRIT 22.5(L) 40.0 - 48.0 % 11/20/2024 3:31 PM [employer] SU[employer]IST [facility] Blood Venipuncture / Unknown 11/20/2024 3:13 PM [employer] SUPPORT SPECIALIST 11/20/2024 3:28 PM [employer] SPECIALIST Best Aiken MD HEMATOLOGY ORDERABLES Selin l Result [facility] CLIA# [id number] [place] [address] * POC ACTIVATED CLOTTING TIME (11/20/2024 1:23 PM [employer]PPORT SPECIALIST) Only the most recent of11 resultswithin the time period is included. ACTIVATED CLOTTING TIME POC 157 sec 11/20/2024 1:23 [address] [employer] [facility] Comment: Target Range(s): >400 sec. Cardiovascular Surgery >250 sec. when Cardiac Cath or other intervention is performed. <180 sec. to pull sheath Blood 11/20/2024 1:23 PM [employer] SPECIALIST 11/20/2024 1:52 PM [employer] SPECIALIST Diego Mcknight MD POINT OF CARE TESTING Selin l Result Performing Organization Address [facility] Co de Phone Number [facility] CLIA# [id number] [place] [address] * XR OR (11/20/2024 1:12 PM [employer] SUPPORT SPECIALIST) Narrative [facility] POINT OF CARE - 11/20/2024 1:13 PM [employer] SPECIALIST Order information only. Exam was auto-finalized. Franca Dykes MD DIAGNOSTIC IMAGING ORDERABLES Final Result Performing Organization Address [facility] Co me Phone Number [facility] POINT OF CARE CLIA # [id number] [place] [address] * POC LACTIC ACID (11/20/2024 12:10 PM [employer] SPECIALIST) Only the most recent of2 resultswithin the time period is included. LACTIC ACID POC 0.6 <=2.0 mmol/L 11/20/2024 12:10 PM [employer] SPECIMEN SOURCE, GASES POC Arterial 11/20/2024 12:10 PM [employer]IST [facility] Blood 11/20/2024 12:1 0 PM [employer] SUPPORT SPECIALIST 11/20/2024 12:11 PM [employer] SPECIALIST Diego Mcknight MD POINT OF CARE TESTING Selin l Result Performing Organization Address [facility] Co de Phone Number [facility] CLIA# [id number] [place] [address] * (ABNORMAL) BLOOD GAS,(INCL. H+H, LYTES, GLUC) (11/20/2024 12:10 PM [employer] SPECIALIST) Only the most recent of2 resultswithin the time period is included. [facility] PH BLOOD POC 7.37 7.35 - 7.45 11/20/2024 12:10 PM [facility] PCO2 POC 35 35 - 48 mm Hg 11/20/2024 12:10 PM [facility] PO2 POC 144(H) 83 - 108 mm Hg 11/20/2024 12:10 PM [facility] HCO3 (CALC) POC 20(L) 22 - 26 mmol/L 11/20/2024 12:10 PM [facility] O2 SATURATION POC 100(H) 94 - 98 % 11/20/2024 12:10 PM [facility] BASE EXCESS POC -5(L) -2 - 3 mmol/L 11/20/2024 12:10 PM [facility] HEMOGLOBIN POC 6.4(LL) 13.6 - 16.5 g/dL 11/20/2024 12:10 PM [facility] HEMATOCRIT POC 19(L) 40 - 48 % 11/20/2024 12:10 PM [facility] Comment:Estimated Value GLUCOSE POC 92 74 - 99 mg/dL 11/20/2024 12:10 PM [facility] SODIUM POC 131(L) 135 - 145 mmol/L 11/20/2024 12:10 PM [facility] POTASSIUM POC 5.8(H) 3.5 - 4.9 mmol/L 11/20/2024 12:10 PM [facility] CHLORIDE POC 105 98 - 107 mmol/L 11/20/2024 12:10 PM [facility] CALCIUM IONIZED POC 5.3(H) 4.8 - 5.2 mg/dL 11/20/2024 12:10 PM [facility] PH TEMP CORRECT 7.37 7.35 - 7.45 11/20/19 25 12:10 PM [facility] PCO2 TEMP CORRECT 35 35 - 48 mm Hg 11/20/2024 12:10 PM [facility] PO2 TEMP CORRECT 144(H) 83 - 108 mm Hg 11/20/2024 12:10 PM [facility] SPECIMEN SOURCE, GASES POC Arterial 11/20/2024 12:10 PM [facility] PATIENT'S TEMPERATURE POC 37.0 degrees 11/20/2024 12:10 PM [facility] OXYGEN CONTENT POC 9.0 mL/dL 11/20/2024 12:10 PM [facility] Blood, arterial 11/20/2024 1 2:10 PM [employer] 11/20/2024 12:11 PM [employer] Diego Mcknight MD ABG ORDERABLES Final Resu lt [facility] CLIA# [id number] [place] [address] * (ABNORMAL) OXIMETRY (11/20/2024 12:10 PM [employer]) Only the most recent of2 resultswithin the time period is included. OXYHEMOGLOBIN POC 96.4 94.0 - 97.0 % 11/20/2024 12:10 PM [facility] HEMOGLOBIN POC 6.4(LL) 13.6 - 16.5 g/dL 11/20/2024 12:10 PM [facility] OXYGEN CONTENT POC 9.0 mL/dL 11/20/2024 12:10 PM [facility] O2 SATURATION POC 100(H) 94 - 98 % 025 12:10 PM [facility] SPECIMEN SOURCE, GASES POC Arterial 11/20/2024 12:10 PM [facility] SAMPLE SITE, GASES POC N-SY 11/20/2024 12:10 PM [facility] Blood 11/20/2024 12:1 0 PM [employer] 11/20/2024 12:11 PM [employer] SPECIALIST us Diego Mcknight MD ABG ORDERABLES Final Resu lt [facility] CLIA# [id number] [place] [address] * (ABNORMAL) METHEMOGLOBIN QUANTITATIVE (11/20/2024 12:10 PM W[employer]ARM SUPPORT SPECIALIST) Only the most recent of2 resultswithin the time period is included. METHEMOGLOBIN QUANT POC 1.2 <=1.5 % 11/20/2024 12:10 PM W[employer] FARM SUPPORT SPECIALIST [facility] HEMOGLOBIN POC 6.4(LL) 13.6 - 16.5 g/dL 11/20/2024 12:10 PM [employer] SU[employer] SPECIALIST [facility] Blood 11/20/2024 12:1 0 PM WIND FARM SUPPORT SPECIALIST 11/20/2024 12:11 PM W[employer] FARM SUPPORT SPECIALIST Diego Mcknight MD ABG ORDERABLES Final Resu lt Performing Organization Address [facility]/ZIP Co de Phone Number [facility] CLIA# [id number] [place] [address] * (ABNORMAL) CARBOXYHEMOGLOBIN (11/20/2024 12:10 PM WIND [employer]ARM SUPPORT SPECIALIST) Only the most recent of2 resultswithin the time period is included. CARBOXYHEMOGLOBIN POC 2.4 <=7.0 % 02/2025 12:10 PM WIND FARM SUPPORT SPECIALIST [facility] HEMOGLOBIN POC 6.4(LL) 13.6 - 16.5 g/dL 11/20/2024 12:10 PM W[employer] SUPPORT SPECIALIST [facility] Blood 11/20/2024 12:1 0 PM W[employer] FARM SUPPORT SPECIALIST 11/20/2024 12:11 PM W[employer] FARM SUPPORT SPECIALIST Diego Mcknight MD ABG ORDERABLES Final Resu lt [facility] CLIA# [id number] [place] [address] * CA ANES INSERT CATH, ART, PERCUT, SHORTTERM (11/20/2024 8:36 AM WIND FARM SUPPORT SPECIALIST) Narrative Darius Dela Cruz AA-C - 11/20/2024 8:36 AM WIND FARM SUPPORT SPECIALIST Darius Dela Cruz AA-C 11/20/2024 8:38 [...] size: 20 G Catheter Length (in.): 1.75 [place] Identification: palpation technique Number of attempts: 1 Successful placement: yes Assessment: blood return through port Procedure uneventful Post-procedure: line secured and dressing applied Kianna Lu MD PROCEDURE/MINOR SURGICAL ORDERAB LES Final Result * CA ANES VNPNXR 3 YEARS/> PHYS/QHP SKILL, PERIPHERAL IV ADULT (11/20/2024 8:15 AM WIND FARM SUPPORT SPECIALIST) Narrative Darius Dela Cruz AA-C - 11/20/2024 8:15 AM W[employer] FARM SUPPORT SPECIALIST Darius Dela Cruz AA-C 11/20/2024 8:36 AM Peripheral Line Insertion Date/Time: 11/20/2024 8:15 AM Staffing Performed: MAINFRAME SYSTEMS ENGINEER/CAA Authorized by: Kianna Lu MD Performed by: [...] PROCEDURE/MINOR SURGICAL ORDERAB LES Final Result * CA ANES INSERT ENDOTRACHEAL AIRWAY (11/20/2024 7:36 AM WIND FARM SUPPORT SPECIALIST) Narrative Darius Dela Cruz AA-C - 11/20/2024 7:36 AM WIND FARM SUPPORT SPECIALIST Darius Dela Cruz AA-C 11/20/2024 8:17 AM Airway Date/Time: 11/20/2024 7:36 AM Location: OR Plan: elective intubation Patient Identity Confirmed by: Verbally with patient and armband Airway: not difficult Staffing Performed: Student NA/AA Authorized by: Kianna Lu MD Performed by: Darius Dela Cruz AA-C Aoc Director Intelligence Officer: Kianna Lu MD Indications and Patient Condition: [...] * EXTRA TUBE (BLUE) (11/18/2024 12:41 AM WIND FARM SUPPORT SPECIALIST) Blood Venipuncture / Unknown 11/18/2024 12:41 AM WIND FARM SUPPORT SPECIALIST 11/18/2024 12:41 AM WIND FARM SUPPORT SPECIALIST Brant Leonard MD HEMATOLOGY ORDERABLES Final Re sult [facility]# [id number] [place] [address] * (ABNORMAL) UNFRACTIONATED HEPARIN MONITORING (11/17/2024 5:21 PM W[employer]ARM SUPPORT SPECIALIST) Only the most recent of8 resultswithin the time period is included. ANTI-XA UNFRAC HEP >1.10(HH) See Interpreta tion. IU/mL 11/17/2024 7:01 PM WIND FARM SUPPORT SPECIALIST [facility] Blood Venipuncture / Unknown 11/17/2024 5:21 PM WIND FARM SUPPORT SPECIALIST 11/17/2024 6:06 PM WIND FARM SUPPORT SPECIALIST Narrative [facility] - 11/17/2024 7:01 PM WIND FARM SUPPORT SPECIALIST Unfractionated Heparin Therapeutic Range: 0.30-0.70 IU/ml Refer to pharmacy adult heparin protocol for further recommendation. The reference range for this test is specific to the anticoagulant and is not appropriate for monitoring patients on a DOAC protocol. us Miracle Horne NP HEMATOLOGY ORDERABLES Final Res ult [facility] [employer] [facility] CLIA# [id number] [place] [address] * NM MYOCARD PERF IMAG SPECT MULT (11/17/2024 9:21 AM WIND FARM SUPPORT SPECIALIST) 11/17/2024 9:23 AM WIND FARM SUPPORT SPECIALIST Narrative INTERFACE SYSTEM - 11/17/2024 10:58 AM WIND FARM SUPPORT SPECIALIST HISTORY: Preoperative risk assessment RESTING EKG: [...] NM ORDERABLES Final Result Performing Organization Address City/[facility]/ZIP Co de Phone Number INTERFACE SYSTEM Refer to clinic/hospital department * NM PHARMACOLOGICAL STRESS TEST (11/17/2024 8:23 AM WIND FARM SUPPORT SPECIALIST) [facility] POINT OF CARE - 11/17/2024 8:24 AM WIND FARM SUPPORT SPECIALIST Order information only. Exam was auto-finalized. 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 #: [id number] BP: 133 / 75 *Referring Physician:* Miracle Horne *Ordering Physician:* Miracle Horne *Continuous Improvement Coordinator:* Nishant Cordoba [facility] prefitter: Nurse: Indications: Dyspnea. Syncope / Near syncope. [...] values inside specified reference range. Procedure data: [facility] Comparison was made to the study [...] Bedside. Prepared and Electronically Authenticated Michi Mckeon [id number] Procedure Note Michi Mckeon MD - 11/16/2024 Transthoracic Echocardiogram Patient: Jc De Leon Study ID: [id number] Gender: M : 1960 Age: 64 Race: HUNTER Height 182.9cm Study Date: 11/16/2024 Weight: 92.1kg Access. #: [id number] BP: 133 / 75 *Referring Physician:* Miracle Horne *Ordering Physician:Miracle Crane *Continuous Improvement Coordinator:José Antonio Cordoba RD,[facility] prefitter: Nurse: Indications: Dyspnea. Syncope / Near syncope. [...] values inside specified reference range. Procedure data: [facility] Comparison was made to the study [...] Bedside. Prepared and Electronically Authenticated Michi Mckeon [id number] us Miracle Horne NP US ORDERABLES Final Result Performing Organization Address City/[facility] Co de Phone Number INTERFACE SYSTEM Refer to clinic/hospital department * (ABNORMAL) LIPID PANEL (11/16/2024 5:09 AM WIND FARM SUPPORT SPECIALIST) [facility] CHOLESTEROL 75 <200 mg/dL 11/16/2024 3:58 PM [facility] [employer] [facility] TRIGLYCERIDE 98 <150 mg/dL 11/16/2024 3:58 PM [facility] HDL 33(L) 40 - 59 mg/dL 11/16/2024 3:58 PM [facility] LDL CALCULATED 22 <100 mg/dL 11/16/2024 3:58 PM [facility] NON-HDL CHOLESTEROL 42 <130 mg/dL 11/16/2024 3:58 PM [facility] Blood Venipuncture / Unknown 11/16/2024 5:09 AM WIND FARM SUPPORT SPECIALIST 11/16/2024 6:29 AM WIND FARM SUPPORT SPECIALIST Narrative [facility] [employer] [facility] - 11/16/2024 3:58 PM WIND FARM SUPPORT SPECIALIST TOTAL CHOLESTEROL mg/dL Desirable <200 Borderline [...] Leonard MD CHEMISTRY ORDERABLES Final Res ult Performing Organization Address City/[facility]/ZIP Co de Phone Number [facility] LABORATORY SERVICES [facility] EPHRAIM# [id number] [place] [address] * CTA ABD AORTA BI ILIOFEM W AND/OR WO (11/15/2024 6:53 PM WIND FARM SUPPORT SPECIALIST) Anatomical Region Laterality Modality Abdomen Computed Tomogra phy 11/15/2024 6:23 PM WIND FARM SUPPORT SPECIALIST Impressions 11/15/2024 8:13 PM WIND FARM SUPPORT SPECIALIST IMPRESSION: 1. Extensive multifocal atherosclerotic disease [...] 3. Absent right kidney. DICTATION LOCATION: Location [address] [place] [address] 11/15/2024 8:13 PM WIND FARM SUPPORT SPECIALIST EXAMINATION: CTA ABD AORTA BI ILIOFEM [...] disease. 3. Absent right kidney. DICTATION LOCATION: [address] Shanika Sebastian [facility] CT ORDERABLES Selin l Result * CTA CHEST W AND/OR WO CONTRAST (11/15/2024 6:51 PM WIND FARM SUPPORT SPECIALIST) Anatomical Region Laterality Modality Chest Computed Tomogra phy 11/15/2024 6:29 PM WIND FARM SUPPORT SPECIALIST Impressions 11/15/2024 7:40 PM WIND FARM SUPPORT SPECIALIST IMPRESSION: 1. No evidence of pulmonary embolism. 2. Similar appearance of bilateral pulmonary nodules, most consistent with metastatic disease. Redemonstration of enlarged aortopulmonary lymph node. Increased subcarinal lymph node. 3. Small bilateral pleural effusions. 4. Unchanged lucent lesion at the T12 inferior endplate, most suggestive of metastatic focus. DICTATION LOCATION: Location [address] [place] [address] Narrative 11/15/2024 7:40 PM WIND FARM SUPPORT SPECIALIST EXAMINATION: CTA CHEST W AND/OR WO [...] suggestive of metastatic focus. DICTATION LOCATION: Location [address] [place] [address] ORDERABLES Final Result * BLOOD CULTURE (11/15/2024 3:23 PM WIND FARM SUPPORT SPECIALIST) Only the most recent of2 resultswithin the time period is included. Pathologist [facility] BLOOD CULTURE No growth 11/20/2024 9:03 PM WIND FARM SUPPORT SPECIALIST [facility] Blood (Peripheral) Venipuncture / Unknown 11/15/2024 3:23 PM WIND FARM SUPPORT SPECIALIST 11/15/2024 3:51 PM WIND FARM SUPPORT SPECIALIST Result [facility] Miracle Horne NP MICROBIOLOGY - GENERAL ORDERABL ES Final Result [facility] CLIA# [id number] [address] [place] [address] * HEPATITIS B SURFACE ANTIGEN (11/15/2024 1:48 AM WIND FARM SUPPORT SPECIALIST) Pathologist [facility] HEPATITIS B SURFACE AG NON-REACT THOMAS Non-react thomas 11/15/2024 6:48 PM WIND FARM SUPPORT SPECIALIST [facility] [employer] [facility] Comment:A non-reactive test result does not exclude the possibility of exposure to or infection with hepatitis B. Blood Venipuncture / Unknown 11/15/2024 1:48 AM WIND FARM SUPPORT SPECIALIST 11/15/2024 1:57 AM WIND FARM SUPPORT SPECIALIST Romle Bangura MD CHEMISTRY ORDERABLES Final Resul t [facility] [employer] [facility] CLIA# [id number] [place] [address] * US VENOUS DOPPLER LEG BILATERAL (11/14/2024 4:48 PM WIND FARM SUPPORT SPECIALIST) Anatomical Region Laterality Modality Lower Extremity Ultrasound 11/14/2024 4:49 PM WIND FARM SUPPORT SPECIALIST Impressions 11/14/2024 5:07 PM WIND FARM SUPPORT SPECIALIST IMPRESSION: Normal. DICTATION LOCATION: [address] Narrative 11/14/2024 5:07 PM WIND FARM SUPPORT SPECIALIST EXAMINATION: US VENOUS DOPPLER LEG BILATERAL [...] evidence of DVT. IMPRESSION: Normal. DICTATION LOCATION: [address] us Joseph Yee NP US ORDERABLES Final Result * MRI FOOT WO CONTRAST LEFT (11/14/2024 3:11 PM WIND FARM SUPPORT SPECIALIST) Anatomical Region Laterality Modality Ankle / Foot Magnetic Resonan ce 11/14/2024 3:11 PM WIND FARM SUPPORT SPECIALIST Impressions 11/14/2024 3:37 PM WIND FARM SUPPORT SPECIALIST IMPRESSION: 1. Wound at the distal 1st digit, with underlying bony signal alteration at the 1st distal phalangeal tuft, suggesting sequela of osteomyelitis, potentially with more chronic appearance, with partial acute component questioned. 2. Wound at the 3rd digit with underlying bony signal alteration at the distal shaft and tuft of the 3rd distal phalanx, most consistent with localized osteomyelitis. DICTATION LOCATION: [address] Narrative 11/14/2024 3:37 PM WIND FARM SUPPORT SPECIALIST EXAMINATION: MRI FOOT WO CONTRAST LEFT [...] consistent with localized osteomyelitis. DICTATION LOCATION: Location [address] [place] [address] Joseph Yee NP MR ORDERABLES Final Result * MRI FOOT WO CONTRAST RIGHT (11/14/2024 2:47 PM WIND FARM SUPPORT SPECIALIST) Anatomical Region Laterality Modality Ankle / Foot Magnetic Resonan ce 11/14/2024 2:48 PM WIND FARM SUPPORT SPECIALIST Impressions 11/14/2024 3:14 PM WIND FARM SUPPORT SPECIALIST IMPRESSION: First distal phalanx fractures are again noted. There is diffuse first distal phalangeal marrow edema and possibly soft tissue gas in the great toe. Osteomyelitis cannot be excluded in the setting of fracture but is highly suspected based on review of the 11/09/2024 outside radiographs. DICTATION LOCATION: Location [address] [place] [address] Narrative 11/14/2024 3:14 PM WIND FARM SUPPORT SPECIALIST EXAMINATION: MRI FOOT WO CONTRAST RIGHT [...] the 11/09/2024 outside radiographs. DICTATION LOCATION: Location [address] [place] [address] Joseph Yee NP MR ORDERABLES Final Result * HEMOGLOBIN A1C (11/14/2024 12:58 AM WIND FARM SUPPORT SPECIALIST) HEMOGLOBIN A1C 5.4 <=5.6 % 11/14/2024 2:30 AM WIND FARM SUPPORT SPECIALIST [facility] [employer] [facility] EST. AVG GLUCOSE, A1C 108 mg/dL 11/14/2024 2:30 AM WIND FARM SUPPORT SPECIALIST [facility] [employer] [facility] Blood Venipuncture / Unknown 11/14/2024 12:58 AM WIND FARM SUPPORT SPECIALIST 11/14/2024 2:12 AM WIND FARM SUPPORT SPECIALIST Narrative [facility] - 11/14/2024 2:30 AM WIND FARM SUPPORT SPECIALIST HGB A1C INTERPRETATION NORMAL: <5.7% PRE-DIABETES: 5.7 - 6.4% DIABETES: 6.5% OR GREATER Joseph Yee NP CHEMISTRY ORDERABLES Final Res ult [facility] CLIA# [id number] [place] [address] * (ABNORMAL) COMPREHENSIVE METABOLIC PANEL (11/14/2024 12:58 AM WIND FARM SUPPORT SPECIALIST) SODIUM 129(L) 136 - 145 mmol/L 11/14/2024 2:44 AM WIND FARM SUPPORT SPECIALIST [facility] [employer] [facility] POTASSIUM 4.2 3.4 - 5.1 mmol/L 11/14/2024 2:44 AM WIND FARM SUPPORT SPECIALIST [facility] [employer] [facility] CHLORIDE 91(L) 98 - 107 mmol/L 11/14/2024 2:44 AM [facility] CO2 25 22 - 29 mmol/L 11/14/2024 2:44 AM [facility] CALCIUM 9.3 8.6 - 10.4 mg/dL 11/14/2024 2:44 AM [facility] BUN 44(H) 6 - 20 mg/dL 11/14/2024 2:44 AM [facility] CREATININE 7.14(H) 0.67 - 1.17 mg/dL 11/14/2024 2:44 AM [facility] GLUCOSE 100(H) 74 - 99 mg/dL 11/14/2024 2:44 AM [facility] TOTAL PROTEIN 6.1(L) 6.3 - 8.7 g/dL 11/14/2024 2:44 AM [facility] ALBUMIN 3.1(L) 3.5 - 5.2 g/dL 11/14/2024 2:44 AM [facility] BILIRUBIN TOTAL <0.2(L) 0.2 - 1.1 mg/dL 11/14/2024 2:44 AM [facility] ALKALINE PHOSPHATASE 67 40 - 150 U/L 11/14/2024 2:44 AM [facility] AST 20 0 - 41 U/L 11/14/2024 2:44 AM [facility] ALT 17 0 - 41 U/L 11/14/2024 2:44 AM [facility] GFR 8(L) >=60 mL/min/1.7 3 sq meter 11/14/2024 2:44 AM [facility] Comment:eGFR calculated with 2020 CKD-EPI equation. Vegetarian diet, extremely high or low muscle mass, and may affect results. Cystatin C with Glomerular Filtration Rate is a suitable alternative for these patients. ANION GAP 13 8 - 16 mmol/L 11/14/2024 2:44 AM [facility] Blood Venipuncture / Unknown 11/14/2024 12:58 AM WIND FARM SUPPORT SPECIALIST 11/14/2024 2:12 AM WIND FARM SUPPORT SPECIALIST us Joseph Yee NP CHEMISTRY ORDERABLES Final Res ult [facility]# [id number] [place] [address] * US DOPPLER VENOUS ARM BILATERAL (11/14/2024 12:20 AM WIND FARM SUPPORT SPECIALIST) Anatomical Region Laterality Modality Upper Extremity Ultrasound 11/14/2024 12:2 1 AM WIND FARM SUPPORT SPECIALIST Impressions 11/14/2024 7:07 AM WIND FARM SUPPORT SPECIALIST IMPRESSION: 1. No evidence of deep vein thrombosis in either upper extremity. DICTATION LOCATION: Location [address] [place] [address] Narrative 11/14/2024 7:07 AM WIND FARM SUPPORT SPECIALIST EXAMINATION: US DOPPLER VENOUS ARM BILATERAL [...] either upper extremity. DICTATION LOCATION: Location - [facility] us Joseph Yee NP US ORDERABLES Final Result * MRI PRIOR STUDY (11/10/2024 6:35 AM WIND FARM SUPPORT SPECIALIST) Only the most recent of2 resultswithin the time period is included. [facility] - 11/14/2024 5:38 AM WIND FARM SUPPORT SPECIALIST This exam was auto finalized to allow images to be scanned to PACS. External Provider [facility] MR ORDERABLES Final Res ult Performing Organization Address [facility] Co de Phone Number [facility] CLIA # [id number] [place] [address] * XR PRIOR STUDY (11/09/2024 8:00 PM WIND FARM SUPPORT SPECIALIST) Only the most recent of6 resultswithin the time period is included. [facility] - 11/14/2024 5:41 AM WIND FARM SUPPORT SPECIALIST This exam was auto finalized to allow images to be scanned to PACS. External Provider [facility] DIAGNOSTIC IMAGING ORDERA BLES Final Result Performing Organization Address [facility] Co de Phone Number [facility] CLIA # [id number] [place] [address] * CT PRIOR STUDY (11/09/2024 3:30 AM WIND FARM SUPPORT SPECIALIST) [facility] - 11/14/2024 5:47 AM WIND FARM SUPPORT SPECIALIST This exam was auto finalized to allow images to be scanned to PACS. 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
[2025-02-07 06:25] VITALS: BP 154/69; PULSE 67; RESP 18; TEMP 36.5; O2SAT 100
--- NOTE | 2025-02-07 06:51 | WPDANESEPPF ---
Anes - Initial Pre Proc Eval Procedure: Operation Date: 02/07/25 07:30 Proposed Procedures p Insertion Caro Cath - Armin Paredes MD Date/Time: 02/07/25 06:51 Surgeon: Armin Paredes MD Pre Op Diagnosis: Renal cell Ca Rt Kidney Patient Data Age: 64 Gender: M Height: 1.83 m Weight: 90.9 kg Allergies Allergy/AdvReac Type Severity Reaction Status Date / Time No Known Allergies Allergy Verified 01/29/25 11:18 Home Medications ?Medication ?Instructions ?Recorded ?Confirmed ?Type amlodipine 10 mg tablet 10 mg PO QAM 12/30/21 01/29/25 History hydralazine 25 mg tablet 25 mg PO BID 10/31/22 01/29/25 History cholecalciferol (vitamin D3) 75 75 mcg PO DAILY 10/25/23 01/29/25 History mcg (3,000 unit) tablet sodium bicarbonate 650 mg tablet 650 mg PO BID #60 tabs 04/25/24 01/29/25 Rx apixaban 5 mg tablet (Eliquis) 5 mg PO Q12H 11/09/24 01/29/25 History metoprolol succinate 200 mg 200 mg PO DAILY 11/09/24 01/29/25 History tablet,extended release 24 hr sevelamer HCl 800 mg tablet 800 mg PO TIDWMEAL 11/09/24 01/29/25 History furosemide 20 mg tablet See Rx Instructions .Route 11/11/24 01/29/25 Rx .COMPLEX #90 tabs atorvastatin 20 mg tablet (Lipitor) 20 mg PO HS 12/31/24 01/29/25 History fluticasone furoate 200 1 inh inhalation DAILY 01/29/25 01/29/25 History mcg-vilanterol 25 mcg/dose inhalation powder Patient hx anesthesia problems: none Family hx anesthesia problems: none Results Review: All pre-operative results and documents have been reviewed as part of the pre-operative evaluation. [facility] Past Medical History Medical History Atrial flutter by electrocardiogram Ulnar neuropathy Melena Personal history of colonic polyps BMI 26.0-26.9,adult Secondary renal hyperparathyroidism Vitamin D deficiency Volume overload Acute gastrointestinal bleeding Acute on chronic renal failure ETOH abuse Peripheral neuropathy Right renal mass Incarcerated ventral hernia Tobacco abuse Kidney stones Hypertension Surgical History Surgical History H/O ventral hernia repair Incarcerated Ventral Hernia repair w poss mesh 05/10/22. H/O hernia repair H/O right nephrectomy Family History Family History Sibling Diabetes mellitus Grandparent Family history of malignant neoplasm Mother Family history of malignant neoplasm Father Family history of malignant neoplasm Social History Social History Social History: Patient elects his brother Martin to be his surrogate. He has no kids or pets at this time. Patient wishes to be a full code. Smoking packs per day: 0.25 Smoking cigarettes per day: 5.0 Years smoked: 42 Smoking pack-years: 10.50 Smoking status: Current every day smoker Tobacco type: cigarettes Smokeless tobacco user: chewing tobacco Second hand tobacco smoke exposure: Yes Additional smoking assessment comments: STATES STARTING SMOKING AGE 13 Alcohol intake: current Drinks per week: 7 Alcohol use details: 4 oz vodka daily Substance use: never Substance use type: does not use Other substance usage details: drinks vodka every day Last use: 10/24/23 Do You Feel Safe in your Home?: Yes Lack of Transportation: No Lack of Food: Never True Current Housing: I Have Housing Concerned About Future Housing: No Difficulty Paying Gas/Electric Bills: No Difficulty Paying for Meds: No Currently Unemployed: No Education: High School Diploma/GED Difficulty w/ Childcare or Family Care: No Living arrangements: alone Occupation/Education: occupation Additional occupation/education comments: [employer] Gender identity (if verbalized by the patient): Male Sexual Orientation (if Verbalized by the Patient): Straight or Heterosexual Spiritual care concerns: No Agree to blood products: Yes Anes - Eval Final PreProcedure Day of Procedure 02/07/25 06:51 Patient weight: overweight Heart: irregular rhythm Lungs: clear to auscultation Airway: Mallampati scale class II Neurological: alert and oriented Last oral intake: >/= 8 hours ASA classification: IV Emergent: no Anesthetic plan: proceed Anesthesia type and monitoring: general GIVS and standard monitoring Results Review: All pre-operative results and documents have been reviewed as part of the pre-operative evaluation. Informed Consent: The patient's anesthetic plan and its attendant risks and benefits were discussed with the patient/family/POA. Questions were solicited and answers provided to the satisfaction of the patient/family/POA.
--- NOTE | 2025-02-07 07:18 | P.HP_ITS ---
H&P: HPI History of Present Illness Date/Time: 02/07/25 07:18 Chief Complaint: Renal cell CA Narrative: Pt with renal cell CA, s/p radical nephrectomy. ESRD and on hemodialysis. Presents for placement of portacatheter for chemo tx. No prior hx of portacatheter. Review of Systems Review of Systems: The remainder of the review of systems to include constitutional, HEENT, cardiovascular, respiratory, GI, , integumentary, musculoskeletal, endocrine, immunologic, hematologic, psychiatric, and neurologic are all negative except for which is mentioned above in the HPI. [facility] Past Medical History Medical History Atrial flutter by electrocardiogram Ulnar neuropathy Melena Personal history of colonic polyps BMI 26.0-26.9,adult Secondary renal hyperparathyroidism Vitamin D deficiency Volume overload Acute gastrointestinal bleeding Acute on chronic renal failure ETOH abuse Peripheral neuropathy Right renal mass Incarcerated ventral hernia Tobacco abuse Kidney stones Hypertension Surgical History Surgical History H/O ventral hernia repair Incarcerated Ventral Hernia repair w poss mesh 05/10/22. H/O hernia repair H/O right nephrectomy Family History Family History Sibling Diabetes mellitus Grandparent Family history of malignant neoplasm Mother Family history of malignant neoplasm Father Family history of malignant neoplasm Social History Social History Social History: Patient elects his brother Martin to be his surrogate. He has no kids or pets at this time. Patient wishes to be a full code. Smoking packs per day: 0.25 Smoking cigarettes per day: 5.0 Years smoked: 42 Smoking pack-years: 10.50 Smoking status: Current every day smoker Tobacco type: cigarettes Smokeless tobacco user: chewing tobacco Second hand tobacco smoke exposure: Yes Additional smoking assessment comments: STATES STARTING SMOKING AGE 13 Alcohol intake: current Drinks per week: 7 Alcohol use details: 4 oz vodka daily Substance use: never Substance use type: does not use Other substance usage details: drinks vodka every day Last use: 10/24/23 Do You Feel Safe in your Home?: Yes Lack of Transportation: No Lack of Food: Never True Current Housing: I Have Housing Concerned About Future Housing: No Difficulty Paying Gas/Electric Bills: No Difficulty Paying for Meds: No Currently Unemployed: No Education: High School Diploma/GED Difficulty w/ Childcare or Family Care: No Living arrangements: alone Occupation/Education: occupation Additional occupation/education comments: [employer] Gender identity (if verbalized by the patient): Male Sexual Orientation (if Verbalized by the Patient): Straight or Heterosexual Spiritual care concerns: No Agree to blood products: Yes Meds Home Medications and Allergies Home Medications ?Medication ?Instructions ?Recorded ?Confirmed ?Type amlodipine 10 mg tablet 10 mg PO QAM 12/30/21 01/29/25 History hydralazine 25 mg tablet 25 mg PO BID 10/31/22 01/29/25 History cholecalciferol (vitamin D3) 75 75 mcg PO DAILY 10/25/23 01/29/25 History mcg (3,000 unit) tablet sodium bicarbonate 650 mg tablet 650 mg PO BID #60 tabs 04/25/24 01/29/25 Rx apixaban 5 mg tablet (Eliquis) 5 mg PO Q12H 11/09/24 01/29/25 History metoprolol succinate 200 mg 200 mg PO DAILY 11/09/24 01/29/25 History tablet,extended release 24 hr sevelamer HCl 800 mg tablet 800 mg PO TIDWMEAL 11/09/24 01/29/25 History furosemide 20 mg tablet See Rx Instructions .Route 11/11/24 01/29/25 Rx .COMPLEX #90 tabs atorvastatin 20 mg tablet (Lipitor) 20 mg PO HS 12/31/24 01/29/25 History fluticasone furoate 200 1 inh inhalation DAILY 01/29/25 01/29/25 History mcg-vilanterol 25 mcg/dose inhalation powder Allergies Allergy/AdvReac Type Severity Reaction Status Date / Time No Known Allergies Allergy Verified 01/29/25 11:18 Exam Const: General: comfortable and no acute distress HENMT: Ears: TM's normal bilaterally Face/Nose/Sinus: Normal nares present Mouth: Yes moist mucous membranes Eyes: General: appearance normal, both eyes and all related structures Sclera: sclerae normal Pupils: Equal, round and reactive pupils present EOM: EOMs intact bilaterally Neck: Neck: supple and no JVD Chest: Other: No rashes or masses bilateral anterior chest. Resp: Effort & Inspection: normal respiratory effort Auscultation: clear to auscultation bilaterally Cardio: Rate: regular rate Rhythm: regular rhythm GI: GI Palp: Yes Soft to palpation, No Firmness to palpation present (GI), No Tenderness to palpation present (GI), No Guarding due to palpation present (GI) and No Hernia present Skin: General skin exam: normal color and no rashes or lesions noted Neuro: General: gait normal Speech: normal speech Motor exam (neuro): 5/5 motor strength present throughout Sensory Exam: normal sensation Extrem: General: normal to inspection Other: Right arm AV fistula, good thrill. Psych: Mental Status: mental status grossly normal Affect: normal affect Assessment and Plan Assessment and plan (1) Renal cell carcinoma: Code(s): C64.9 - Malignant neoplasm of unspecified kidney, except renal pelvis Status: Acute Assessment and Plan: Pt with renal cell CA, s/p left nephrectomy. He is to have chemo tx. Will proceed with placement of portacatheter for chemotx. Risks, benefits, indications, and expected outcomes discussed. Iatrogenic pneumothorax and need for chest tube placement and bleeding needing blood transfusion discussed. He wants to proceed.
[2025-02-07] MEDS: LACTATED RINGERS 1,000 ML 30 ML IV CONT (07:20)
--- NOTE | 2025-02-07 07:32 | WPDHPUPDATE1 ---
History and Physical Update Update Date/Time: 02/07/25 07:32 History and Physical has been reviewed, including an updated exam of the patient. There are NO changes in the patient's condition. Risks, benefits, and alternatives have been discussed and questions answered. Patient agrees to proceed with procedure.
[2025-02-07] MEDS: ceFAZolin 2 GM/D5W 50 ML 2 GM/50 ML BAG IVPB (07:34)
[2025-02-07 07:36] LABS: Anion Gap 10 mmol/L (4-12); Blood Urea Nitrogen 28 mg/dL (9-20); Calcium 9.6 mg/dL (8.4-10.2); Carbon Dioxide 29 mmol/L (22-30); Chloride 98 mmol/L (98-107); Estimated CRCL calculation 13 ml/min; Estimated Glomerular Filt Rate 10; Glucose 88 mg/dL (65-110); Potassium 4.1 mmol/L (3.4-5.0); Sodium 137 mmol/L (137-145)
[2025-02-07] MEDS: LIDO 1%/EPINEPHRINE/PF 1:200,000 30 ML VIAL XX (08:02)
[2025-02-07] MEDS: BUPivacaine HCL 0.5% 10 ML AMP 30 ML INFILTRATE (08:03)
[2025-02-07] MEDS: HEPARIN SODIUM 5,000 UNITS/ML VIAL 5000 UNITS IV PUSH (08:04)
[2025-02-07] MEDS: HEPARIN SODIUM 1,000 UNITS/ML VIAL 1000 UNITS IV PUSH (08:05)
[2025-02-07 08:38] VITALS: BP 132/59; PULSE 67; RESP 16; O2SAT 96
--- NOTE | 2025-02-07 08:44 | W.PM.PROC2 ---
Procedure Note - Detailed Date of Procedure 02/07/25 Pre-op Diagnosis Renal cell Ca Rt Kidney Post-op Diagnosis Same Procedure Performed Placement of a left subclavian vein single-lumen port a catheter with intraoperative fluoroscopy Surgeon Armin Paredes MD [facility] Steward/Stewardess [facility] CSA Anesthesia MAC and Local Indications Patient is a 64-year-old gentleman has had a prior left nephrectomy for kidney cancer and apparently also has cancer in the right kidney. He is currently on hemodialysis. He is to undergo immuno therapy for treatment. He presents today for placement of a adiel catheter to begin his treatment. Findings None significant Description of Procedure After informed consent was obtained patient brought to the operating room was placed supine position and IV sedation was administered by anesthesia. The bilateral upper anterior neck and chest was then prepped and draped usual sterile fashion. A time-out was then performed correctly identifying the patient as well as procedure to be performed. He was given perioperative IV antibiotics. As the patient is on hemodialysis and has a right forearm AV fistula I approached placing the adiel catheter in the left-sided central veins. 1% lidocaine with epinephrine mixed with 0.5% Marcaine was injected between the 2 heads of the left sternocleidomastoid muscle. Using a 22gauge seeker needle I attempted cannulation of the left internal jugular vein without success on multiple attempts. At this point I then changed to a try to attempt cannulation of the left subclavian vein. The same local anesthetic mixture was then injected just below the portion of the left clavicle. A transverse incision was as mainstay with a scalpel and then dissection was carried down through the subcutaneous tissue electrocautery. The patient was then placed in a head-down Trendelenburg position and a long 18gauge spinal needle was then used to attempt cannulation of the left subclavian vein. On the 2nd pass I was successful in cannulating the left subclavian vein. There was prompt return of dark venous appearing blood. A guidewire was advanced through the needle into the left subclavian subcu down into the right atrium of the heart. Intraoperative fluoroscopy was used to identify the guidewire in the proper position. I then created a subcu port pocket below the incision utilizing electrocautery and blunt finger dissection. Once this was done I then advanced a dilator and breakaway sheath over the guidewire and then removed the guidewire and dilator leaving the sheath in place. A 9.6 Indonesian silastic single-lumen catheter was advanced through the she into the left subclavian vein subsequent down into the right atrium of the heart via the superior vena cava. The sheath was then torn away leaving the catheter in place. Intraoperative fluoroscopy was then used to visualize the tip of the catheter and then I pulled on the catheter externals the chest wall into the tip of the catheter was in the distal superior vena cava. The catheter was then cut to the appropriate length at the skin level and attached to the titanium Smart Port. The port was then placed in the subcutaneous port pocket and secured on 3 sides utilizing 3-0 Prolene sutures. I then accessed the port with the Davidson needle and it aspirated blood easily and was flushed with heparinized saline solution. I then irrigated out the port incision with sterile saline solution hemostasis was good. I then close incision utilizing interrupted 3-0 Vicryl sutures in subcutaneous tissues. The skin edges were then approximated utilizing a running subcuticular 4 Monocryl suture. The incision was then cleaned and then skin glue was applied. Finally the port was cannulated percutaneously with a Davidson needle and aspirated blood easily again. It was then flushed with 5000units of IV heparin. The patient tolerated the procedure well no complications. All sponges, needles, and instrument counts were correct at the end procedure. EBL was _25__cc. The patient was awakened and taken to recovery in stable and satisfactory condition. Portable chest x-ray postoperatively was obtained. Reading as per radiologist is pending at the time this dictation. Implants 9.6 Indonesian single-lumen silastic catheter attached to the titanium Smart Port via the left subclavian vein. Estimated Blood Loss 25 Drains No Packing No Pathology None sent Complications No immediate complications Condition Stable Disposition PACU [facility] Billing Surgery - Charge Forward: Surgery Billing
[2025-02-07 09:05] VITALS: BP 151/57; PULSE 62
[2025-02-07 09:35] VITALS: BP 154/72; PULSE 66
== END 2025-02-07 09:45 | disposition home or self-care (01) ==
PROVIDERS: Anesthesiology; PCP Physician Assistant; Visit Provider Surgery
PROC: (CPT 36561; principal; 2025-02-07 07:30)
DX: C64.9 Malignant neoplasm of unspecified kidney, except renal pelvis (principal); E55.9 Vitamin D deficiency, unspecified; I12.9 Hypertensive chronic kidney disease with stage 1 through stage 4 chronic kidney disease, or unspecified chronic kidney disease; N18.9 Chronic kidney disease, unspecified; I48.92 Unspecified atrial flutter; N25.81 Secondary hyperparathyroidism of renal origin; G62.9 Polyneuropathy, unspecified; F17.210 Nicotine dependence, cigarettes, uncomplicated; F17.220 Nicotine dependence, chewing tobacco, uncomplicated; Z79.01 Long term (current) use of anticoagulants; Z79.51 Long term (current) use of inhaled steroids; Z98.890 Other specified postprocedural states; Z90.5 Acquired absence of kidney; Z99.2 Dependence on renal dialysis; Z87.442 Personal history of urinary calculi; Z86.0100 Personal history of colon polyps, unspecified; Z80.9 Family history of malignant neoplasm, unspecified
CPT/HCPCS: 36561; 36415; 77001; 80048; C1788; J0690; J1644; J2004; J2704; J3010; J7120

== ENCOUNTER 2025-02-28 22:50 | Emergency (ER) | payer MEDICAID, SELFPAY ==
--- NOTE | ~2025-02-28 | XR_ITS ---
XR wrist RT min 3V Ordering provider: Dat Wiggins MD History: . fall . Comparison: July 15, 2022 FINDINGS: BONES: No acute fracture or dislocation. No definite scaphoid fracture. JOINT SPACES: Normal. SOFT TISSUES: Normal. IMPRESSION: No acute osseous abnormality right wrist. Reviewed, dictated and finalized at location A.
--- OUTSIDE RECORDS SUMMARY | 2025-02-28 22:53 | XMS_ITS | Clinical Summary ---
Author Organization [facility] Address [address] [address] Phone Care Team Providers Care Celebrity Manager Name Role Phone Unavailable Primary Care [...] 01/03/2025 1:00 PM CDT Home Care Visit [address] [address] Leela Rao, RN SN - OASIS DISCHARGE 12/26/2024 12:30 PM CDT Home Care Visit [address] [address] Leela Rao RN SN - WOUND VISIT 12/23/2024 1:30 PM CDT Home Care Visit [address] [address] Sidra Noble LPN SN - WOUND VISIT 12/19/2024 5:00 PM INGREDIENT HANDLER Home Care Visit [address] [address] Leela Rao, RN SN - WOUND VISIT 12/17/2024 11:30 AM INGREDIENT HANDLER Home Care Visit [address] [address] Cintia Chen, PT PT - DISCIPLINE DISCHARGE 12/16/2024 2:00 PM INGREDIENT HANDLER Home Care Visit [address] [address] Loreto Green, RELIEF MAN PT - HOME VISIT 12/16/2024 2:00 PM INGREDIENT HANDLER Home Care Visit [address] [address] Leela Rao, RN SN - WOUND VISIT 12/16/2024 Home Care Visit [address] [address] Leela Rao, RN TELEPHONE ENCOUNTER 12/12/2024 11:30 AM INGREDIENT HANDLER Home Care Visit [address] [address] Loreto Green, RELIEF MAN PT - HOME VISIT 12/12/2024 Home Care Visit [address] [address] Kirstin Santana OT OT - DISCHARGE SUMMARY 12/11/2024 2:30 PM INGREDIENT HANDLER Home Care Visit [address] [address] Leela Rao, RN SN - WOUND VISIT 12/10/2024 2:00 PM INGREDIENT HANDLER Home Care Visit [address] [address] Xiomara Jiang, RENETTA OT - DISCIPLINE DISCHARGE 12/10/2024 10:00 AM INGREDIENT HANDLER Home Care Visit [address] [address] Loreto Green, RELIEF MAN PT - HOME VISIT 12/10/2024 Home Care Visit [address] [address] Xiomara Jiang, RENETTA CASE COMMUNICATION 12/09/2024 11:30 AM INGREDIENT HANDLER Home Care Visit [address] [address] Sidra Noble LPN SN - WOUND VISIT 12/06/2024 1:30 PM INGREDIENT HANDLER Home Care Visit [address] [address] Leela Rao, RN SN - WOUND VISIT 12/05/2024 12:30 PM INGREDIENT HANDLER Home Care Visit [address] [address] Loreto Green, RELIEF MAN PT - HOME VISIT 12/05/2024 11:00 AM INGREDIENT HANDLER Home Care Visit [address] [address] Xiomara Jiang, RENETTA OT - HOME VISIT 12/05/2024 Home Care Visit [address] [address] Xiomara Jiang, RENETTA CASE COMMUNICATION 12/03/2024 12:00 PM INGREDIENT HANDLER Home Care Visit [address] [address] Loreto Green, RELIEF MAN PT - HOME VISIT 12/03/2024 9:30 AM INGREDIENT HANDLER Home Care Visit [address] [address] Kirstin Santana OT OT - HOME VISIT 12/03/2024 Home Care Visit [address] [address] Leela Rao, RN CARE CONFERENCE 12/02/2024 3:30 PM INGREDIENT HANDLER Home Care Visit [address] [address] Leela Rao, RN SN - WOUND VISIT from Last 3 Months Social History Tobacco [...] (196 lb 3.4 oz) 12/17/2024 11:30 AM INGREDIENT HANDLER Height 182.9 cm (6') 11/29/2024 9:36 AM INGREDIENT HANDLER Body Mass Index 26.61 11/29/2024 9:36 AM INGREDIENT HANDLER Plan of Treatment Health Maintenance Due Date [...] patient's age to complete this topic Insurance [facility] Advance Directives * Full Code (Latest Code Status on File) Date Activated Date Inactivated Comments 11/27/2024 4:04 PM
--- OUTSIDE RECORDS SUMMARY | 2025-02-28 22:53 | XMS_ITS | Clinical Summary ---
Author Organization [facility] Address [facility] [place] [address] Care Team Providers Care Stem Cleaning Machine Feeder Name Role Phone Gia Clark PA-C Primary Care Provider [phone]- [phone] Allergies No known active allergies Medications sodium [...] this topic Medical Devices Implanted Type Area Concrete Mixer Loader Truck Mounted Device Identifier Shelf Expiration Date Model / Serial / Lot Dirk Clareon Iol Implanted:Qty: 1 on 06/13/2022 by Jung Rosales MD at [facility] Left: Eye DIRK - SURGICAL DIV 02/27/2025 [id number] / [id number] / Insurance [facility] Care Teams Stem Cleaning Machine Feeder Relationship Specialty Start Date End Date Gia Clark PA-C PCP - General PHYSICIAN BUSINESS ECONOMIST 06/13/22
--- OUTSIDE RECORDS SUMMARY | 2025-02-28 22:53 | XMS_ITS | Data Portability ---
Author Organization [facility] [place] Address [address] [place] [address] Care Team Providers Care Dermatology Physician Assistant Name Role Phone GIA CLARK Primary Care Provider Assessment Encounter Date Assessment [...] panel, serum or plasma 2024 025 PAULINA [facility], [address], [place], [address], 02/06/2025 09:07:46 HbA1c (hemoglob in A1c), blood 2024 025 PAULINA [facility], [address], [place], [address], 02/06/2025 09:07:48 vitamin D, 25-hydrox y, total, serum 2022 023 PAULINA [facility], [address], [place], [address], 12/20/2022 17:09:37 vitamin B12 + folate, serum or blood 2022 023 [facility], [address], [place], [address], 12/20/2022 17:09:36 pro BNP (pro B-type natriuret ic peptide), serum or plasma 2022 023 [facility], [address], [place], [address], 12/20/2022 13:14:15 CMP, serum or plasma 2022 023 [facility], [address], [place], [address], 12/20/2022 13:11:06 lipid panel, serum 2022 023 [facility], [address], [place], [address], 12/20/2022 13:11:05 CBC w/ auto diff 2022 023 [facility], [address], [place], [address], 12/20/2022 17:09:40 TSH + free T4, serum 2022 023 [facility], [address], [place], [address], 12/20/2022 17:09:35 HbA1c (hemoglob in A1c), blood 2022 023 [email or web address] In-Office Order, Internal Use Only DO Not Attach Compendium DO Not Attach Compendium, Do Not Delete/merge, [id number] 12/19/2022 12:08:18 Referral None recorded. Procedures None recorded. Surgeries None recorded. Imaging US, echocardi ogram, transthor acic, complete, w/ color flow 2022 023 [facility], [address] [place] [address] [address], [place], [address], 11/03/2023 15:21:02 Medication Orders furosemid e 20 mg tablet 2024 025 [facility] #[id number], [address], [place], [id number], 02/05/2025 15:15:33 amlodipin e 10 mg tablet 2024 025 [facility] #25664, [address], [place], [id number], 02/05/2025 15:15:35 hydralazi ne 50 mg tablet 2024 025 [facility] #99861, [address], [place], [id number], 02/05/2025 15:15:35 nicotine 21 mg/24 hr daily transderm al patch 2024 025 [facility] #79034, [address], [place], [id number], 12/24/2024 17:04:56 Eliquis 5 mg tablet 2024 025 [facility] #98674, [address], [place], [id number], 12/24/2024 17:18:54 furosemid e 20 mg tablet 2024 025 [facility] #67981, [address], [place], [id number], 12/24/2024 17:18:53 sodium bicarbona te 650 mg tablet 2024 025 [facility] #49689, [address], [place], [id number], 12/24/2024 17:32:20 amlodipin e 10 mg tablet 2024 [facility] #78592, [address] [place] [address], [id number], 12/24/2024 17:07:58 hydralazi ne 50 mg tablet 2024 025 [facility] #84834, [address] [place] [address], [id number], 12/24/2024 17:18:53 metoprolo l succinate ER 200 mg tablet,ex tended release 24 hr 2024 [facility] #41193, [address] [place] [address], [id number], 12/24/2024 17:18:54 Breo Ellipta 200 mcg-25 mcg/dose powder for inhalatio n 2024 [facility] #16673, [address] [place] [address], [id number], 12/24/2024 17:18:54 atorvasta tin 40 mg tablet 2024 025 [facility] #40612, [address] [place] [address], [id number], 12/24/2024 17:18:54 Patient TargetsNo targets recorded. Patient Instructions Encounter Date Encounter Id Patient Instructions Last Modified By Organization Details Last Modified Time 12/24/2024 [id number] Quitting Tobacco : Care Instructions kbarbero Not available 12/24/2024 17:04:49 02/05/2025 [id number] A healthy lifestyle: care instructions [email or web address] Not available 02/05/2025 15:14:24 Reason for Referral None Reported. Results Created Date Observation Date Name Description Value Unit Range Abnormal Flag Note LastModifiedBy Organization Detail LastModifiedTime 12/20/19 23 12/19/2022 LIPID PANEL WITH LDL/H DL RATIO cholesterol, total 130.5 mg/dL 140.0- 200.0 below low normal Not Available [facility] ([facility]) [address] [facility], [place], [address], 12/20/2022 13:11:05 12/20/19 23 12/19/2022 LIPID PANEL WITH LDL/H DL RATIO triglyceride s 66 mg/dL <=150 Not Available [facility] ([facility]) [address] [place], [address], 12/20/2022 13:11:05 12/20/19 23 12/19/2022 LIPID PANEL WITH LDL/H DL RATIO HDL cholesterol 54.1 mg/dL 40.0-1 00.0 Not Available [facility] ([facility]) [address] [place], [address], 12/20/2022 13:11:05 12/20/19 23 12/19/2022 LIPID PANEL WITH LDL/H DL RATIO VLDL cholesterol cornelio 13.20 mg/dL 5.00-4 0.00 Not Available [facility] ([facility]) [address] [place], [address], 12/20/2022 13:11:05 12/20/19 23 12/19/2022 LIPID PANEL WITH LDL/H DL RATIO LDL chol calc (nih) 62.7 Not Available [facility] ([facility]) [address] [place], [address], 12/20/2022 13:11:05 12/20/19 23 12/19/2022 LIPID PANEL WITH LDL/H DL RATIO LDL/HDL ratio 1.2 Not Available [facility] ([facility]) [address] [place], [address], 12/20/2022 13:11:05 12/20/19 23 12/20/2022 COMP. METAB OLIC PANEL (14) glucose 98 mg/dL 65-99 ANION GP 24.0 mmol/ L N OSMOL 304.0 mOsM/ L H REFER ENCE RANGE : 275.0 -301. 0 Not Available [facility] ([facility]) [address] [facility] [place], [address], 12/20/2022 13:11:06 12/20/19 23 12/20/2022 COMP. METAB OLIC PANEL (14) BUN 72 mg/dL 8-26 panic high Not Available [facility] ([facility]) [address] [place], [address], 12/20/2022 13:11:06 12/20/19 23 12/20/2022 COMP. METAB OLIC PANEL (14) creatinine 5.47 mg/dL 0.50-1 .40 panic high Not Available [facility] ([facility]) [address] [place], [address], 12/20/2022 13:11:06 12/20/19 23 12/20/2022 COMP. METAB OLIC PANEL (14) eGFR 11 mL/mi n/1.7 3 >=60 below low normal Not Available [facility] ([facility]) [address] [place], [address], 12/20/2022 13:11:06 12/20/19 23 12/20/2022 COMP. METAB OLIC PANEL (14) BUN/creatini ne ratio 13.1 Not Available [facility] ([facility]) [address] [place], [address], 12/20/2022 13:11:06 12/20/19 23 12/20/2022 COMP. METAB OLIC PANEL (14) sodium 141.9 mmol/ L 136.0- 144.0 Not Available [facility] ([facility]) [address] [place], [address], 12/20/2022 13:11:06 12/20/19 23 12/20/2022 COMP. METAB OLIC PANEL (14) potassium 5.0 mmol/ L 3.5-5. 3 Not Available [facility] ([facility]) [address] [facility] [place], [address], 12/20/2022 13:11:06 12/20/19 23 12/20/2022 COMP. METAB OLIC PANEL (14) chloride 105 mmol/ l 101-11 1 Not Available [facility] ([facility]) [address] [facility] [place], [address], 12/20/2022 13:11:06 12/20/19 23 12/20/2022 COMP. METAB OLIC PANEL (14) carbon dioxide, total 17.9 mmol/ L 21.0-3 2.0 below low normal Not Available [facility] ([facility]) [address] [facility] [place], [address], 12/20/2022 13:11:06 12/20/19 23 12/20/2022 COMP. METAB OLIC PANEL (14) calcium 9.7 mg/dL 8.2-10 .0 Not Available [facility] ([facility]) [address] [facility] [place], [address], 12/20/2022 13:11:06 12/20/19 23 12/20/2022 COMP. METAB OLIC PANEL (14) protein, total 6.6 g/dL 6.7-8. 2 below low normal Not Available [facility] ([facility]) [address] [facility] [place], [address], 12/20/2022 13:11:06 12/20/19 23 12/20/2022 COMP. METAB OLIC PANEL (14) albumin 4.0 g/dL 3.5-5. 5 Not Available [facility] ([facility]) [address] [facility], [place], [address], 12/20/2022 13:11:06 12/20/19 23 12/20/2022 COMP. METAB OLIC PANEL (14) globulin, total 2.6 g/dL 1.5-4. 5 Not Available [facility] ([facility]) [address] [facility] [place], [address], 12/20/2022 13:11:06 12/20/19 23 12/20/2022 COMP. METAB OLIC PANEL (14) A/G ratio 1.6 Not Available [facility] ([facility]) [address] [facility] [place], [address], 12/20/2022 13:11:06 12/20/19 23 12/20/2022 COMP. METAB OLIC PANEL (14) bilirubin, total 0.3 mg/dL 0.0-1. 2 Not Available [facility] ([facility]) [address] [facility] [place], [address], 12/20/2022 13:11:06 12/20/19 23 12/20/2022 COMP. METAB OLIC PANEL (14) alkaline phosphatase 87.0 IU/L 42.0-1 21.0 Not Available [facility] ([facility]) [address] [place], [address], 12/20/2022 13:11:06 12/20/19 23 12/20/2022 COMP. METAB OLIC PANEL (14) AST (SGOT) 16.3 U/L 10.0-4 2.0 Not Available [facility] ([facility]) [address] [place], [address], 12/20/2022 13:11:06 12/20/19 23 12/20/2022 COMP. METAB OLIC PANEL (14) ALT (SGPT) 20.7 U/L 10.0-6 0.0 Not Available [facility] ([facility]) [address] [facility] [place], [address], 12/20/2022 13:11:06 12/20/19 23 12/20/2022 TSH+F REE T4 TSH 1.010 uIU/m L 0.450- 4.500 Not Available [facility] ([facility]) [address] [facility], [place], [address], 12/20/2022 17:09:35 12/20/19 23 12/20/2022 TSH+F REE T4 T4,free(dire ct) 1.88 NG/dL 0.82-1 .77 above high normal Not Available [facility] ([facility]) [address] [facility], [place], [address], 12/20/2022 17:09:35 12/20/19 23 12/20/2022 HEMOG LOBIN A1C hemoglobin A1C - % Test not perfo rmed. No laven deepti top tube submi tted. Predi abete s: 5.7 - 6.4 Diabe daniel: >6.4 Glyce marisabel contr ol for adult s with diabe daniel: <7.0 Not Available [facility] ([facility]) [address] [facility], [place], [address], 12/20/2022 17:09:36 12/20/19 23 12/20/2022 VITAM IN [...] Delon ferrer [place]: The [facility] Press . 2. Kris emerson MF, [place], [place] off-F errar i PARMAR, et al. Evalu ation , treat ment, and preve ntion of vitam in D defic iency : an Endoc rine Socie ty clini cornelio pract ice guide line. JCEM. 2010; 96(7) :1911 -30. Not Available [facility] ([facility]) [address] [facility], [place], [address], 12/20/2022 17:09:37 12/20/19 23 12/20/2022 CBC WITH DIFFE RENTI AL/PL ATELE T WBC - x10e3 /uL Test not perfo rmed. No laven deepti top tube submi tted. Not Available [facility] ([facility]) [address] [facility], [place], [address], 12/20/2022 17:09:40 12/20/19 23 12/20/2022 CBC WITH DIFFE RENTI AL/PL ATELE T RBC - Test not perfo rmed Not Available [facility] ([facility]) [address] [facility], [place], [address], 12/20/2022 17:09:40 12/20/19 23 12/20/2022 CBC WITH DIFFE RENTI AL/PL ATELE T hemoglobin - Test not perfo rmed Not Available [facility] ([facility]) [address] [facility], [place], [address], 12/20/2022 17:09:40 12/20/19 23 12/20/2022 CBC WITH DIFFE RENTI AL/PL ATELE T hematocrit - Test not perfo rmed Not Available [facility] ([facility]) [address] [place], [address], 12/20/2022 17:09:40 12/20/19 23 12/20/2022 CBC WITH DIFFE RENTI AL/PL ATELE T platelets - Test not perfo rmed Not Available [facility] ([facility]) [address] [place], [address], 12/20/2022 17:09:40 12/20/19 23 12/20/2022 CBC WITH DIFFE RENTI AL/PL ATELE T neutrophils - Test not perfo rmed Not Available [facility] ([facility]) [address] [facility], [place], [address], 12/20/2022 17:09:40 12/20/19 23 12/20/2022 CBC WITH DIFFE RENTI AL/PL ATELE T lymphs - Test not perfo rmed Not Available [facility] ([facility]) [address] [facility], [place], [address], 12/20/2022 17:09:40 12/20/19 23 12/20/2022 CBC WITH DIFFE RENTI AL/PL ATELE T monocytes - Test not perfo rmed Not Available [facility] ([facility]) [address] [facility], [place], [address], 12/20/2022 17:09:40 12/20/19 23 12/20/2022 CBC WITH DIFFE RENTI AL/PL ATELE T eos - Test not perfo rmed Not Available [facility] ([facility]) [address] [place], [address], 12/20/2022 17:09:40 12/20/19 23 12/20/2022 CBC WITH DIFFE RENTI AL/PL ATELE T lymphs (absolute) - Test not perfo rmed Not Available [facility] ([facility]) [address] [place], [address], 12/20/2022 17:09:40 12/20/19 23 12/20/2022 CBC WITH DIFFE RENTI AL/PL ATELE T eos (absolute) - Test not perfo rmed Not Available [facility] ([facility]) [address] [place], [address], 12/20/2022 17:09:40 12/20/19 23 12/20/2022 CBC WITH DIFFE RENTI AL/PL ATELE T baso (absolute) - Test not perfo rmed Not Available [facility] ([facility]) [address] [facility], [place], [address], 12/20/2022 17:09:40 12/20/19 23 12/20/2022 VITAM IN B12 AND FOLAT E vitamin B12 635 pg/mL 232-12 45 Not Available [facility] ([facility]) [address] [facility], [place], [address], 12/20/2022 17:09:36 12/20/19 23 12/20/2022 VITAM IN B12 AND FOLAT E folate (folic acid), serum 6.7 NG/mL >3.0 A serum folat e lynnette ntrat ion of less than 3.1 ng/mL is consi dered to repre sent clini cornelio defic iency . Not Available [facility] ([facility]) [address] [facility], [place], [address], 12/20/2022 17:09:36 12/20/1912/20/2022 NT-NH OBNP nt-probnp 4880 pg/mL 0-210 above high [...] enden t 300 pg/mL Not Available [facility] ([facility]) [address] [facility], [place], [address], 12/20/2022 17:09:35 12/20/19 23 12/20/2022 SPECI MEN STATU S REPOR T specimen status report TNP Test not perfo rmed. No laven deepti top tube submi tted. TEST: [id number] Hemog lobin A1c Not Available [facility] ([facility]) [address] [facility], [place], [address], 12/20/2022 17:09:34 12/20/19 23 12/20/2022 SPECI MEN STATU S REPOR T specimen status report TNP No laven deepti top tube submi tted. TEST: [id number] CBC With Diffe renti al/Pl atele t Not Available [facility] ([facility]) [address] [facility], [place], [address], 12/20/2022 13:11:05 12/20/19 23 12/19/2022 HbA1c (hemo globi n A1c), blood HbA1c 5.3 Not Available In-Office Order Internal Use Only DO Not Attach Compendium DO Not Attach Compendium, Do Not Delete/merge, [id number] 12/19/2022 11:44:02 12/20/19 23 12/20/2022 SPECI MEN STATU S REPOR T specimen status report TNP Test not perfo rmed. No laven deepti top tube submi tted. TEST: [id number] CBC With Diffe renti al/Pl atele t Not Available [facility] ([facility]) [address] [facility], [place], [address], 12/20/2022 17:09:39 11/14/19 25 11/14/2024 CBC W Auto Diffe renti al panel - Blood leukocytes [#/volume] in blood 12.8 K/uL low: 4K/uLh igh: 9.8K/u L high WBC 12.8 (H) 4.0 - 9.8 K/uL 11/14 2:15 AM [facility] Not Available Not Available 12/24/2024 17:32:29 11/14/19 25 11/14/2024 CBC W Auto Diffe renti al panel - Blood RBC 2.24 text: 4.50 - 5.40 M/uL low RBC 2.24 (L) 4.50 - 5.40 M/uL 11/14 2:15 AM [employer] [facility] Not Available Not Available 12/24/2024 17:32:29 11/14/19 25 11/14/2024 CBC W Auto Diffe renti al panel - Blood hemoglobin 7.8 g/dL low: 13.6g/ dLhigh : 16.5g/ dL low HEMOG LOBIN 7.8 (L) 13.6 - 16.5 g/dL 11/14 2:15 AM [employer] [facility] Not Available Not Available 12/24/2024 17:32:29 11/14/19 25 11/14/2024 CBC W Auto Diffe renti al panel - Blood hematocrit [volume fraction] of blood by automated count 24.6 % low: 40%hig h: 48% low HEMAT OCRIT 24.6 (L) 40.0 - 48.0 % 11/14 2:15 AM [employer] [facility] Not Available Not Available 12/24/2024 17:32:29 11/14/19 25 11/14/2024 CBC W Auto Diffe renti al panel - Blood MCV 109.8 fL low: 82fLhi gh: 99fL high MCV 109.8 (H) 82.0 - 99.0 fL 11/14 2:15 AM [employer] [facility] Not Available Not Available 12/24/2024 17:32:29 11/14/19 25 11/14/2024 CBC W Auto Diffe renti al panel - Blood MCH 34.8 pg low: 27.2pg high: 32.6pg high MCH 34.8 (H) 27.2 - 32.6 pg 11/14 2:15 AM [employer] [facility] Not Available Not Available 12/24/2024 17:32:29 11/14/19 25 11/14/2024 CBC W Auto Diffe renti al panel - Blood MCHC 31.7 g/dL low: 31.5g/ dLhigh : 35.5g/ dL MCHC 31.7 31.5 - 35.5 g/dL 11/14 2:15 AM [employer] [facility] Not Available Not Available 12/24/2024 17:32:29 11/14/19 25 11/14/2024 CBC W Auto Diffe renti al panel - Blood RDW 15 % low: 11.5%h igh: 14.5% high RDW 15.0 (H) 11.5 - 14.5 % 11/14 2:15 AM [employer] [facility] Not Available Not Available 12/24/2024 17:32:29 11/14/19 25 11/14/2024 CBC W Auto Diffe renti al panel - Blood RDW-stdev 60.4 fL low: 37.1fL high: 48.7fL high RDW-S TDEV 60.4 (H) 37.1 - 48.7 fL 11/14 2:15 AM [employer] [facility] Not Available Not Available 12/24/2024 17:32:29 11/14/19 25 11/14/2024 CBC W Auto Diffe renti al panel - Blood platelets [#/volume] in blood by automated count 360 K/uL low: 140K/u Lhigh: 350K/u L high PLATE LETS 360 (H) 140 - 350 K/uL 11/14 2:15 AM [employer] [facility] Not Available Not Available 12/24/2024 17:32:29 11/14/19 25 11/14/2024 CBC W Auto Diffe renti al panel - Blood MPV 10.2 fL low: 9.3fLh igh: 12.4fL MPV 10.2 9.3 - 12.4 fL 11/14 2:15 AM [employer] [facility] Not Available Not Available 12/24/2024 17:32:29 11/14/19 25 11/14/2024 CBC W Auto Diffe renti al panel - Blood neutrophils 78 % NEUTR OPHIL S 78 % 11/14 2:15 AM [employer] [facility] Not Available Not Available 12/24/2024 17:32:29 11/14/19 25 11/14/2024 CBC W Auto Diffe renti al panel - Blood lymphocytes/ 100 leukocytes in blood by automated count 10 % LYMPH OCYTE S 10 % 11/14 2:15 AM [employer] 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 SUPERVISOR [employer] [facility] Not Available Not Available 12/24/2024 17:32:29 11/14/19 25 11/14/2024 CBC W Auto Diffe renti al panel - Blood monocytes 10 % MONOC YTES 10 % 11/14 2:15 AM [employer]PER[employer] [facility] Not Available Not Available 12/24/2024 17:32:29 11/14/19 25 11/14/2024 CBC W Auto Diffe renti al panel - Blood eosinophils 1 % EOSIN OPHIL S 1 % 11/14 2:15 AM FRAME SAMPLE AND PATTERN SUPERVISOR [facility] Not Available Not Available 12/24/2024 17:32:29 11/14/19 25 11/14/2024 CBC W Auto Diffe renti al panel - Blood basophils 1 % BASOP HILS 1 % 11/14 2:15 AM [facility] Not Available Not Available 12/24/2024 17:32:29 11/14/19 25 11/14/2024 CBC W Auto Diffe renti al panel - Blood immature granulocytes 1 % IMMAT URE GRANU LOCYT ES 1 % 11/14 2:15 AM [facility] Not Available Not Available 12/24/2024 17:32:29 11/14/19 25 11/14/2024 CBC W Auto Diffe renti al panel - Blood neutrophils [#/volume] in blood by automated count 9.97 K/uL low: 1.9K/u Lhigh: 7K/uL high NEUTR OPHIL ABSOL [place] 9.97 (H) 1.90 - 7.00 K/uL 11/14 2:15 AM [employer] [facility] Not Available Not Available 12/24/2024 17:32:29 11/14/19 25 11/14/2024 CBC W Auto Diffe renti al panel - Blood lymphocyte absolute 1.21 K/uL low: 0.7K/u Lhigh: 4.5K/u L LYMPH OCYTE ABSOL [place] 1.21 0.70 - 4.50 K/uL 11/14 2:15 AM FR[employer] SUPER[employer]OR [employer] [facility] Not Available Not Available 12/24/2024 17:32:29 11/14/19 25 11/14/2024 CBC W Auto Diffe renti al panel - Blood monocyte absolute 1.25 K/uL low: 0.1K/u Lhigh: 1.3K/u L MONOC YTE ABSOL [place] 1.25 0.10 - 1.30 K/uL 11/14 2:15 AM [employer] [facility] Not Available Not Available 12/24/2024 17:32:29 11/14/19 25 11/14/2024 CBC W Auto Diffe renti al panel - Blood eosinophil absolute 0.17 K/uL low: 0K/uLh igh: 0.7K/u L EOSIN OPHIL ABSOL [place] 0.17 0.00 - 0.70 K/uL 11/14 2:15 AM [employer] [facility] Not Available Not Available 12/24/2024 17:32:29 11/14/19 25 11/14/2024 CBC W Auto Diffe renti al panel - Blood basophils absolute 0.06 K/uL low: 0K/uLh igh: 0.2K/u L BASOP HILS ABSOL [place] 0.06 0.00 - 0.20 K/uL 11/14 2:15 AM [employer] [facility] Not Available Not Available 12/24/2024 17:32:29 11/14/19 25 11/14/2024 CBC W Auto Diffe renti al panel - Blood immature granulocytes absolute 0.11 K/uL low: 0K/uLh igh: 0.03K/ uL high IMMAT URE GRANU LOCYT ES ABSOL [place] 0.11 (H) 0.00 - 0.03 K/uL 11/14 2:15 AM [employer] [facility] Not Available Not Available 12/24/2024 [...] - 145 mmol/ L 11/14 2:44 AM FR[employer] PATTERN SUPERVISOR [employer] [facility] Not Available Not Available 12/24/2024 17:32:07 11/14/19 25 11/14/2024 Compr ehens francisco metab olic 1999 panel - Serum or Plasm a potassium [moles/volum e] in serum or plasma 4.2 mmol/ L low: 3.4mmo l/Lhig h: 5.1mmo l/L POTAS SIUM 4.2 3.4 - 5.1 mmol/ L 11/14 2:44 AM FR[employer]AMPLE [employer] PATTERN SUPERVISOR [employer] [facility] Not Available Not Available 12/24/2024 17:32:07 11/14/19 25 11/14/2024 Compr ehens francisco metab olic 1999 panel - Serum or Plasm a chloride 91 mmol/ L low: 98mmol /Lhigh : 107mmo l/L low [place]LOR [place]URT 91 (L) 98 - 107 mmol/ L 11/14 2:44 AM FR[employer]AMPLE [employer] PATTERN SUPERVISOR [employer] [facility] Not Available Not Available 12/24/2024 17:32:07 11/14/19 25 11/14/2024 Compr ehens francisco metab olic 1999 panel - Serum or Plasm a carbon dioxide, total [moles/volum e] in serum or plasma 25 mmol/ L low: 22mmol /Lhigh : 29mmol /L CO2 25 22 - 29 mmol/ L 11/14 2:44 AM [employer] PATTERN SUPER[facility] [facility] Not Available Not Available 12/24/2024 17:32:07 11/14/19 25 11/14/2024 Compr ehens francisco metab olic 1999 panel - Serum or Plasm a calcium 9.3 mg/dL low: 8.6mg/ dLhigh : 10.4mg /dL CALCI UM 9.3 8.6 - 10.4 mg/dL 11/14 2:44 AM [employer] [facility] Not Available Not Available 12/24/2024 17:32:07 11/14/19 25 11/14/2024 Compr ehens francisco metab olic 1999 panel - Serum or Plasm a BUN 44 mg/dL low: 6mg/dL high: 20mg/d L high BUN 44 (H) 6 - 20 mg/dL 11/14 2:44 AM [employer] [facility] Not Available Not Available 12/24/2024 17:32:07 11/14/19 25 11/14/2024 Compr ens franc[place] metab olic 1999 panel - Serum or Plasm a creatinine [mass/volume ] in serum or plasma 7.14 mg/dL low: 0.67mg /dLhig h: 1.17mg /dL high CREAT ININE 7.14 (H) 0.67 - 1.17 mg/dL 11/14 2:44 AM [employer] [facility] Not Available Not Available 12/24/2024 17:32:07 11/14/19 25 11/14/2024 Compr ens [place] metab olic 1999 panel - Serum or Plasm a glucose [mass/volume ] in serum or plasma 100 mg/dL low: 74mg/d Lhigh: 99mg/d L high GLUCO SE 100 (H) 74 - 99 mg/dL 11/14 2:44 AM [employer] NetworkUNC [facility] Not Available Not Available 12/24/2024 17:32:07 11/14/19 25 11/14/2024 Compr ehens [place] metab olic 1999 panel - Serum or Plasm a total protein 6.1 g/dL low: 6.3g/d Lhigh: 8.7g/d L low TOTAL PROTE IN 6.1 (L) 6.3 - 8.7 g/dL 11/14 2:44 AM [employer] [facility] Not Available Not Available 12/24/2024 17:32:07 11/14/19 25 11/14/2024 Compr ehens [place] metab olic 1999 panel - Serum or Plasm a albumin 3.1 g/dL low: 3.5g/d Lhigh: 5.2g/d L low ALBUM IN 3.1 (L) 3.5 - 5.2 g/dL 11/14 2:44 AM [employer] [facility] Not Available Not Available 12/24/2024 17:32:07 11/14/19 25 11/14/2024 Compr ehens [place] metab olic 1999 panel - Serum or Plasm a bilirubin total low: 0.2mg/ dLhigh : 1.1mg/ dL low BILIR UBIN TOTAL <0.2 (L) 0.2 - 1.1 mg/dL 11/14 2:44 AM [employer] [facility] Not Available Not Available 12/24/2024 17:32:07 11/14/19 25 11/14/2024 Compr ehens [place] metab olic 1999 panel - Serum or Plasm a alkaline phosphatase 67 U/L low: 40U/Lh igh: 150U/L ALKAL INE PHOSP HATAS E 67 40 - 150 U/L 11/14 2:44 AM [facility] Not Available Not Available 12/24/2024 17:32:07 11/14/19 25 11/14/2024 Compr ehens francisco metab olic 1999 panel - Serum or Plasm a AST 20 U/L low: 0U/Lhi gh: 41U/L AST 20 0 - 41 U/L 11/14 2:44 AM [employer] Not Available Not Available 12/24/2024 17:32:07 11/14/19 25 11/14/2024 Compr ehens francisco metab olic 1999 panel - Serum or Plasm a alanine aminotransfe rase [enzymatic activity/vol ume] in blood 17 U/L low: 0U/Lhi gh: 41U/L ALT 17 0 - 41 U/L 11/14 2:44 AM NICHOL HER[facility] [id number]|2025-02-28 22:53:00|2025-02-28 22:53:00|XMS_ITS|[address]|External Medical Summaries|[id number]|" Clinical Summary Created on: February 28, 2025 Kar Sloan : 1960 Sex: Male Author Organization [facility] [address] [facility] [address] Address [address] [place] [address] Care Team Providers Care Dermatology Physician Assistant Name Role Phone Gia Clark Primary Care Provider [phone] Harry Loredo MD Unavailable [phone] Rachell Mcnulty MD Unavailable [phone] Ramonita Feldman RN Unavailable [phone] Allergies No known active allergies Medications [...] (09/02/2022): Added automatically from request for surgery [id number] Hypertension 02/14/2022 Renal mass 02/14/2022 Encounters Date Type Department Care Team Description 01/24/2025 Telephone [facility] Cardiology [address] [facility] [address] [place] [address] Harry Loredo MD from Last 3 Months Immunizations Immunization Administration [...] history exists Influenza Vaccine (Season Ended) 2025 08/10/20 21, 07/31/2020 DTaP/Tdap/Td Vaccine (2 - Td or Tdap) 07/15/2032 07/15/2022 [facility] [place]ity [place] Care Teams Dermatology Physician Assistant Relationship Specialty Start Date End Date Gia Clark PA [address] [place] [address] PCP - General Physician Floor Grinder 09/15/22 Harry Loredo MD [address] [facility] [address] [place] [address] Consulting Physician Cardiovascular Disease 03/18/24 Rachell Mcnulty MD [address] [facility] [address] [place] [address] Referring Physician Nephrology 06/05/24 Ramonita Feldman, RN [address] [place] [address] Electronic Warfare Linguist 06/05/24 "
--- OUTSIDE RECORDS SUMMARY | 2025-02-28 22:53 | XMS_ITS | Clinical Summary ---
Author Organization [facility] Rasheed Rivas Address [address] [place] [address] Care Team Providers Care Transit Operator Name Role Phone Unavailable Primary Care Provider [...] daily. 60 Tablet 1 11/26/2024 5:26 PM SEWER CONNECTOR 5 Active atorvastatin (LIPITOR) 40 mg tablet Take 1 Tablet (40 mg) by mouth daily at bedtime. 30 Tablet 2 11/26/2024 5:26 PM SEWER CONNECTOR 5 Active sennosides-docus ate sodium (SENNA-S) 8.6-50 mg tablet Take 1 Tablet by mouth 2 times daily. Active fluticasone furoate-vilanter oL (BREO ELLIPTA) 200-25 mcg/dose Disk with Device Starting 11/26/24, Take 1 Puff by inhalation daily. 60 Each 2 11/26/2024 5:26 PM SEWER CONNECTOR Active axitinib 5 mg tablet Take 1 [...] Encounters Date Type Department Care Team Description 02/24/2025 Orders Only [facility] Oncology and [facility] [address] [place] [phone] Aydin Carrasco MD Renal cell carcinoma of right kidney (CMS/HCC); Benign hypertension 02/12/2025 Abstract [facility] Oncology [facility] [address] [place] [address] Aydin Carrasco MD 02/12/2025 Orders Only [facility] Oncology [facility] [address] [place] [address] Aydin Carrasco MD Renal cell carcinoma of right kidney (CMS/HCC) (Primary Dx); Benign hypertension 02/11/2025 Orders Only [facility] Oncology [facility] [address] [place] [address] Aydin Carrasco MD Renal cell carcinoma of right kidney (CMS/HCC) (Primary Dx); Need for hepatitis B screening test; Chronic anemia; Prostate cancer (CMS/HCC); Pelvic lymphadenopathy 02/07/2025 Orders Only [facility] Oncology [facility] [address] [place] [address] Aydin Carrasco MD 02/05/2025 9:41 AM CDT - 02/05/2025 11:59 PM CDT Hospital Encounter [facility] [address] [place] [address] Jesus Luciano, DPM Discharge Disposition: Home or Self Care 02/05/2025 Refill [facility] Oncology and Hematology - [place] [address] [place] [address] Aydin Carrasco MD Renal cell carcinoma of right kidney (CMS/HCC) (Primary Dx) 01/31/2025 Specialty Pharmacy [facility] [address] [place] [address] [place] [address] Patricia Flower, PHARMACIST 01/31/2025 Specialty Pharmacy [facility] [address] [place] [address] [place] [address] Patricia Flower, PHARMACIST Specialty Pharmacy Financial Assistance 01/22/2025 9:41 AM CDT - 01/22/2025 11:59 PM CDT Hospital Encounter [facility] [address] [place] [address] Jesus Luciano, DPM Discharge Disposition: Home or Self Care 01/22/2025 Orders Only [facility] Oncology and Hematology [facility] [address] [place] [address] Aydin Carrasco MD Need for hepatitis B screening test (Primary Dx) 01/21/2025 External Device Data STL ABSTRACTION Provider, Abstract 01/20/2025 4:00 PM CDT Telephone Check Up [facility] Oncology and Hematology [facility] [address] [place] [address] Aydin Carrasco MD Renal cell carcinoma of right kidney (CMS/HCC) (Primary Dx) 01/09/2025 Orders Only [facility] Oncology and Hematology [facility] [address] [place] [address] Aydin Carrasco MD 01/03/2025 Abstract [facility] Heart and Vascular Surgery [address] [facility] [address] [address] [facility] [address] [place] [address] Shanika Sebastian FNP 01/02/2025 3:30 PM CDT Office Visit [facility] Heart and Vascular Surgery [address] [facility] 101 [address] [facility] [address] [place] [address] Shanika Sebastian, JOHN PVD (peripheral vascular disease) (Primary Dx) 01/02/2025 1:31 PM CDT - 01/02/2025 11:59 PM CDT Hospital Encounter [facility] Testing [facility] [address] [facility] [address] [place] [address] Patricia Quezdaa, WILLIAM Discharge Disposition: Home or Self Care 01/01/2025 11:00 AM CDT - 01/01/2025 11:59 PM CDT Hospital Encounter [facility] [address] [address] Jesus Luciano, DPM Discharge Disposition: Home or Self Care 01/01/2025 External Device Data STL ABSTRACTION Provider, Abstract 12/21/2024 External Device Data STL ABSTRACTION Provider, Abstract 12/20/2024 External Device Data STL ABSTRACTION Provider, Abstract 12/18/2024 10:37 AM SEWER CONNECTOR - 12/18/2024 11:59 PM SEWER CONNECTOR Hospital Encounter [facility] [address] [place] [address] Jesus Luciano, DPM Discharge Disposition: Home or Self Care 12/18/2024 External Device Data STL ABSTRACTION Provider, Abstract 12/17/2024 External Device Data STL ABSTRACTION Provider, Abstract 12/16/2024 9:15 AM SEWER CONNECTOR Office Visit [facility] Oncology and Hematology [facility] [address] [place] [address] Aydin Carrasco MD Renal cell carcinoma of right kidney (CMS/HCC) (Primary Dx) 12/11/2024 Abstract [facility] Oncology and Hematology [facility] [address] [place] [address] Aydin Carrasco MD 12/11/2024 Orders Only [facility] Oncology and Hematology [facility] [address] [place] [address] Aydin Carrasco MD 12/06/2024 Telephone [facility] Heart and Vascular Surgery [address] [facility] [address] [address] [facility] [address] [place] [address] Franca Dykes MD Question 12/03/2024 External Device [...] Team (Late st Contact Info) Description 03/05/2025 10:00 AM CDT Appointment [facility] [place] [address] [place] [address] Jesus Luciano, ERNESTO [address] [address] [place], [place] [phone] 03/21/2025 11:00 AM CDT Office Visit [facility] Oncology and Hematology [facility] [address] [facility] [address] [place] [address] Aydin Carrasco MD [address] [facility] [address] [place] [address] 04/14/2025 10:15 AM CDT Appointment [facility] [address] [facility] [address] [place] [address] Shanika Sebastian FNP [address] [facility] [address] [place] [address] 04/14/2025 11:30 AM CDT Office Visit [facility] Heart and Vascular Surgery [address] [facility] 101 [address] [facility] [address] [place] [address] [place] [address] [facility] [address] [place] [address] Health Maintenance Due Date Last [...] 07/15/2022, 07/05/2022 Medical Devices Implanted Type Area Last Puller Device Identifier Shelf Expiration Date Model / Serial / Lot Patch Vascu-Guard 1.0x10cm [id number] - [id number] Implanted:Qty: 1 on 11/20/2024 by Franca Dykes MD at [facility] Right: Groin [employer] 09/03/2025 [id number] / / [id number] Patch Vascu-Guard 0.8x8cm Cardio Vg-0108 - [id number] Implanted:Qty: 1 on 11/20/2024 by Franca Dykes MD at [facility] Collagen Right: Groin [employer] 05/20/2026 [id number] / / [id number] Hemostatic Surgifoam Sz12-7 1971 - [id number] Implanted:Qty: 1 on 11/20/2024 by Franca Dykes MD at [facility] Hemostatic Right: Groin [employer] 03/11/20281971 / / [id number] Hemostatic Surgiflo 8ml W/ Thrombin 2994 - [id number] Implanted:Qty: 1 on 11/20/2024 by Franca Dykes MD at [facility] Hemostatic [employer] 10/15/2025 [id number] / / [id number] Procedures Procedure Name Priority Date/Time Associated Diagnosis Comments COMPREHENSIVE METABOLIC PANEL Routine 02/11/2025 9:13 AM CDT QUANTIFERON TB CONFIRMATION Routine 02/06/2025 8:32 AM CDT ANAEROBIC/AEROBIC CULTURE W GRAM STAIN Routine 01/22/2025 10:27 AM CDT 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, unspecified laterality (CMS/HCC) PATHOLOGY REPORT Routine 01/07/2025 3:59 PM CDT US ANKLE PRESSURE INDEX Routine 01/03/20 3:13 PM CDT PVD (peripheral vascular disease) ANAEROBIC/AEROBIC CULTURE W GRAM STAIN Routine 12/18/2024 11:34 AM SEWER CONNECTOR 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, unspecified laterality (CMS/HCC) BASIC METABOLIC PANEL Routine 12/11/2024 4:32 PM SEWER CONNECTOR CBC WITH AUTODIFFERENTIAL Routine 12/11/2024 11:49 AM SEWER CONNECTOR HEMOGLOBIN A1C Routine 11/14/2024 12:58 AM SEWER CONNECTOR from Last 3 Months or Most Recently Relevant to Health Maintenance Results * COMPREHENSIVE METABOLIC PANEL (02/11/2025 9:13 AM CDT) Blood us Aydin Carrasco MD CHEMISTRY ORDERABLES Final Resu lt * QUANTIFERON TB CONFIRMATION (02/06/2025 8:32 AM CDT) Blood us Aydin Carrasco MD CHEMISTRY ORDERABLES Final Resu lt * (ABNORMAL) ANAEROBIC/AEROBIC CULTURE W GRAM STAIN (01/22/2025 10:27 AM CDT) Only the most recent of2 resultswithin the time period is included. ANAEROBIC CULTURE SEE NOTE Qu est Sariah-Shavonne Novak Comment: CULTURE, ANAEROBIC BACTERIA W/GRAM STAIN Micro Number: [id number] Test Status: Final Specimen Source: Foot, right Specimen Quality: Adequate Gram Stain: No white blood cells seen Many Mixed bacterial padmini Result: Heavy growth of Prevotella species Prevotella sp. INT DAVID 1 THERAPY COMMENTS Note 1: This isolate is beta-lactamase Positive. A Positive result predicts resistance to Penicillin, Ampicillin and Amoxicillin. AEROBIC CULTURE SEE NOTE(A) qualifyorAlexanderShavonne Novak Comment: CULTURE, AEROBIC BACTERIA Micro Number: [id number] Test Status: Final Specimen Source: Right foot [...] values are not provided. Test Performed at: [facility] [place] [address] [address] [place] [place] [address] [facility] Lesion/Drainage Fluid (Foot, right) 01/22/2025 10:27 AM CDT 01/23/2025 2:50 AM CDT Jesus Luciano DPM MICROBIOLOGY - GENERAL ORDZoraida TAYLOR Final Result [facility] [phone] [place] [address] [address] [place] [address] * PATHOLOGY REPORT (01/07/2025 3:59 PM CDT) us Aydin Carrasco MD PATHOLOGY/CYTOLOGY ORDERABLES F inal Result * US ANKLE PRESSURE INDEX (01/02/2025 3:13 PM CDT) Anatomical Region Laterality Modality Lower Extremity Ultrasound 01/02/2025 2:30 PM CDT Narrative 01/02/2025 4:08 PM CDT [facility] Heart and Vascular Testing NADER Arterial Physiologic Evaluation Patient: Kar Sloan Study ID: 1 Gender: M : 1960 Age: 64 Race: HUNTER Height 182.9cm Study Date: 01/02/2025 Weight: 89.8kg Access. #: [id number] *Referring Physician:Patricia Montanez Amy Elizabeth *Ordering Physician:Patricia Montanez *Bridge Engineer:Dory Underwood Indications: PVD. History: Risk factors: Recent [...] Hg Prepared and Electronically Authenticated Mariaa Mathew [id number]:08:12 Procedure Note Mariaa Mathew MD - 01/02/2025 [facility] NADER Arterial Physiologic Evaluation Patient: Kar Sloan Study ID: 1 Gender: M : 1960 Age: 64 Race: HUNTER Height 182.9cm Study Date: 01/02/2025 Weight: 89.8kg Access. #: [id number] *Referring Physician:Patricia Montanez AmyElizabeth *Ordering Physician:Patricia Montanez *Bridge Engineer:Dory Underwood Indications: PVD. History: Risk factors: Recent [...] Hg Prepared and Electronically Authenticated Mariaa Mathew [id number]:08:12 us Patricia Quezada PLANT ANATOMY TEACHER US ORDERABLES Final Res ult * BASIC METABOLIC PANEL (12/11/2024 4:32 PM SEWER CONNECTOR) Blood Aydin Carrasco MD CHEMISTRY ORDERABLES Final Resu lt * CBC WITH AUTODIFFERENTIAL (12/11/2024 11:49 AM SEWER CONNECTOR) Blood Aydin Carrasco MD HEMATOLOGY ORDERABLES Final Res ult * HEMOGLOBIN A1C (11/14/2024 12:58 AM SEWER CONNECTOR) HEMOGLOBIN A1C 5.4 <=5.6 % 11/14/2024 2:30 AM SEWER CONNECTOR [facility] [employer] [facility] EST. AVG GLUCOSE, A1C 108 mg/dL 11/14/2024 2:30 AM SEWER CONNECTOR [facility] [employer] [facility] Blood Venipuncture / Unknown 11/14/2024 12:58 AM SEWER CONNECTOR 11/14/2024 2:12 AM SEWER CONNECTOR Narrative [facility] [employer] [facility] - 11/14/2024 2:30 AM SEWER CONNECTOR HGB A1C INTERPRETATION NORMAL: <5.7% PRE-DIABETES: 5.7 - 6.4% DIABETES: 6.5% OR GREATER Joseph Yee NP CHEMISTRY ORDERABLES Final Res ult [facility] [employer] [facility] CLIA# [id number] [place] [address] from Last 3 Months or Most Recently Relevant to Health Maintenance Insurance [facility] BLUE ACCESS/TRUE BLUE PPO BCBS BLUE ACCESS/TRUE BLUE PPO RX [facility] Advance Directives For more information, please contact: [phone] Documents on File Type Date Recorded Patient Cell Maker Expl anation Advance Directive POA 11/21/2024 12:12 PM A dvance Directive POA * Full Code (Latest Code Status on File) Date Activated Date Inactivated Comments 11/13/2024 9:50 PM 11/26/2024 8:21 PM
--- OUTSIDE RECORDS SUMMARY | 2025-02-28 22:53 | XMS_ITS | Clinical Summary ---
Author Organization [facility] [employer] Address [address] [place] [address] Care Team Providers Care Local Intermodal Truck Driver Name Role Phone Gia Clark PA-C Primary Care Provider [phone] Source Comments [facility] [employer],non-owned Affiliates and Associated Physician Practices is amultiple site organization consisting of ambulatory clinics and hospital sitesin [place], [place], [place] and [place]. This disclosure is being madepursuant to the Care Everywhere program and may not contain all information available regarding this patient. Last updated 18.[facility] [employer] Social History Tobacco Use Types Packs/Day Years [...] patient's age to complete this topic Insurance [facility] * Guarantor: KAR SLOAN Account Type Relation to Patient Date of Phone Billing Address Personal/Family Spouse Care Teams Local Intermodal Truck Driver Relationship Specialty Start Date End Date Gia Clark PA-C [address] [place] [address] PCP - General 05/24/22
--- OUTSIDE RECORDS SUMMARY | 2025-02-28 22:53 | XMS_ITS | Encounter Summary ---
Author Organization [facility] Address [address] [place] [address] Care Team Providers Care Kettleman Name Role Phone Unavailable Primary Care Provider Unavailabl e Encounter Details Date Type Department Care Team (Late st Contact Info) Description 02/24/2025 Orders Only [facility] Oncology and Hematology - [place] [address] [facility] [address] [place] [address] Aydin Carrasco MD [address] [facility] [address] [place] [address] Renal cell carcinoma of right kidney (CMS/HCC); Benign hypertension Social History Tobacco Use Types Packs/Day Years [...] Info) Description 03/05/2025 10:00 AM CDT Appointment [facility] Hyperbaric and Wound Care [address] [place] [address] Jesus Luciano, ERNESTO [address] [place], [place] [address] 03/21/2025 11:00 AM CDT Office Visit [facility] Oncology and Hematology - [place] [address] [facility] [address] [place] [address] Aydin Carrasco MD [address] [facility] [address] [place] [address] 04/14/2025 10:15 AM CDT Appointment [facility] Heart and Vascular Testing [facility] [address] [facility] [address] [place] [address] Shanika Sebastian FNP [address] [facility] [address] [place] [address] 04/14/2025 11:30 AM CDT Office Visit [facility] Heart and Vascular Surgery [address] [facility] 101 [address] [facility] 101 [place] [address] [place] [address] [facility] 101 [place] [address] documented as of this encounter Visit Diagnoses Diagnosis Renal cell carcinoma of right kidney (CMS/HCC) Benign hypertension Essential hypertension, benign documented in this encounter
--- OUTSIDE RECORDS SUMMARY | 2025-02-28 22:53 | XMS_ITS | Encounter Summary ---
Author Organization [facility] Address [address] [place] [address] Care Team Providers Care Director Fraud Name Role Phone Gia Clark PA-C Primary Care Provider Encounter Details Date Type Department Care Team (Late st Contact Info) Description 06/14/2023 Lab Requisition [facility] - Pathology Lab [address] [place] [address] Cristiano Joe MD [facility] [address] [address] Generalized enlarged lymph nodes Social History Tobacco [...] AM CDT) Case Report Flow Cytometry Case: [id number] Authorizing Provider: Cristiano Joe MD Collected: 06/14/2023 10:46 AM Ordering Location: [facility] Pathology Lab Received: 06/14/2023 04:46 PM Pathologist: Jamel Ashby MD Specimen: Lymph Node, LEFT PELVIC AREA 06/15/2023 8:52 AM [facility] PATHOLOGY LAB Final Diagnosis Lymph node, left pelvic area, flow cytometric immunophenotypic analysis: - Insufficient hematopoietic cells for analysis. - See interpretation. 06/15/2023 8:52 AM [facility] Flow Cytometry Interpretation Preliminary characterization of the lymph node specimen demonstrates too few hematopoietic cells for flow cytometric analysis. A cytospin prepared from the flow cytometry specimen is reviewed for quality control manager purposes. Flow cytometry is not performed. 06/15/2023 8:52 AM [facility] PATHOLOGY LAB Flow Cytometry Results Too few hematopoietic cells for flow cytometric analysis. 06/15/2023 8:52 AM [facility] Reason for test Generalized enlarged lymph nodes 785.6 06/15/2023 8:52 AM [facility] Client Specimen ID # [id number] 06/15/2023 8:52 AM [facility] Pathologist Location at [facility] 06/15/2023 8:52 AM [facility] Disclaimer Test performed at [facility], [address] [place] [address], [address]. *The established laboratory minimum viability is 70%. [...] PATHOLOGY LAB Embedded Images 8:52 AM T [facility] PATHOLOGY LAB Pathology/Cytolo gy ENTIRE LYMPH NODE / Unknown 06/14/2023 10:46 AM CDT 06/14/2023 4:46 PM CDT Cristiano Joe MD LAB - PATHOLOGY/CYTOLOGY ORDERAB LES Final Result [facility] PATHOLOGY LAB [address] [facility] [phone] documented in this encounter Visit Diagnoses Diagnosis Generalized enlarged lymph nodes Enlargement of lymph nodes documented in this encounter Care Teams Director Fraud Relationship Specialty Start Date End Date Gia Clark PA-C [address] [place] [address] PCP - General 05/24/22 documented as of this encounter
--- OUTSIDE RECORDS SUMMARY | 2025-02-28 22:53 | XMS_ITS | Encounter Summary ---
Author Organization [facility] Address [address] [place] [address] Care Team Providers Care Supervisor [place]ing Department Name Role Phone Unavailable Primary Care Provider Unavailabl e Encounter Details Date Type Department Care Team ([facility] Contact Info) Description 06/02/2023 Telephone [facility] Oncology and Hematology - Kulwinder 2[address] [facility] 200 [place] [address] [place] [address] [place] [address] [address] [place] [address] Social History Tobacco Use Types [...] Department Care Team (Late Contact Info) Description 03/05/2025 10:00 AM CDT Appointment [facility] Hyperbaric and Wound Care [place] [address] [place] [address] Jesus Luciano, ERNESTO [address] [place], [place] [id number] 03/21/2025 11:00 AM CDT Office Visit [facility] Oncology and Hematology - Kulwinder 2[address] [facility] [address] [place] [address] Aydin Carrasco MD 2227 [facility] [address] [place] [address] 04/14/2025 10:15 AM CDT Appointment [facility] Heart and Vascular Testing [place] [address] [facility] [facility] [address] [place] [address] Shanika Sebastian FNP [address] [facility] 305 [place] [address] 04/14/2025 11:30 AM CDT Office Visit [facility] Heart and Vascular Surgery [address] [facility] 101 [address] [facility] 101 [place] [address] [place] [address] [facility] 101 [place] [address] documented as of this encounter Visit Diagnoses Not on filedocumented in this encounter
--- OUTSIDE RECORDS SUMMARY | 2025-02-28 22:53 | XMS_ITS | Clinical Summary ---
Author Organization [facility] Address [address] [place] [address] Phone Care Team Providers Care Pastry Finisher Name Role Phone Gia Clark Primary Care Provider [phone] Allergies No known active allergies Medications amLODIPine [...] on file Legal Sex Male 8:10 AM [facility] Gender Identity Not on file Sexual [...] 08/10/20 21, 07/31/2020 Insurance [employer] Care Teams Pastry Finisher Relationship Specialty Start Date End Date Gia Clark PA [address] [place] [address] PCP - General 01/03/22
--- OUTSIDE RECORDS SUMMARY | 2025-02-28 22:53 | XMS_ITS | Referral Summary ---
Author Organization [facility] [address] Address [address] [place] [address] Care Team Providers Care Store Team Member Name Role Phone Gia Clark Primary Care Provider [phone] Harry Loredo MD Unavailable [phone] Rachell Mcnulty MD Unavailable [phone] Ramonita Feldman RN Unavailable [phone] Encounters Date Type Department Care Team Description 01/24/2025 Telephone [facility] Cardiology 30[address] [facility] [address] [place] [address] Harry Loredo MD from Last 3 Months Allergies No known [...] (09/02/2022): Added automatically from request for surgery [id number] Hypertension 02/14/2022 Renal mass 02/14/2022 Immunizations Immunization [...] Plan of Treatment Not on file Insurance [facility] Care Teams Store Team Member Relationship Specialty Start Date End Date Gia Clark PA [address] [place] [address] PCP - General Physician Cigar Sorter 09/15/22 Harry Loredo MD [address] [facility] [address] [address] [place] [address] Consulting Physician Cardiovascular Disease 03/18/24 Rachell Mcnulty MD 1034 [address] [facility] FARE[address] 1280 [place] [address] Referring Physician Nephrology 06/05/24 Ramonita Feldman, RN 4590 [place] [address] Title One Teacher 06/05/24
--- OUTSIDE RECORDS SUMMARY | 2025-02-28 22:53 | XMS_ITS | Continuity of Care Document ---
Author Organization [facility] Address [address] [place] [address] Exec utive [facility] [address] [place] [address] Phone Care Team Providers Care Business Objects Name Role Phone Marcos OD, Sebas Unavailable Unavailable Advance Directives Directive Yes / No Effective Date File Name No Information Encounters Encounter Description Practice Location Reason(s) For Visit Diagnoses Date Provider Providers Copied on Encounter [facility], [address] [place] [address] [address], [place], [place], [id number], [place] tel:[phone] [facility] No Information Aug-0 4-200 5 Marcos OD Sebas. [address] , [address], [place], [address], [place]. tel:[phone] Family History Family Member Type Diagnosis Age At Onset No Information Payers Payer name Insurance type Covered alliance party ID Authoriza tijean(s) [facility] CI [id number] Social History Type Description Quantity Date Captured [...]
--- OUTSIDE RECORDS SUMMARY | 2025-02-28 22:54 | XMS_ITS ---
Author Organization [facility] Address [address] [place] [address] Care Team Providers Care Work Study Student Name Role Phone Unavailable Primary Care Provider [...]
[2025-02-28 23:03] VITALS: BP 158/76; PULSE 64; RESP 16; TEMP 36.4; O2SAT 98
[2025-03-01 04:36] VITALS: BP 183/91; PULSE 67; RESP 19; O2SAT 98
--- OUTSIDE RECORDS SUMMARY | 2025-03-01 05:39 | XMS_ITS | Clinical Summary ---
Author Organization [facility] Address [address] [address] Phone Care Team Providers Care Configuration Technician Name Role Phone Unavailable Primary Care [...] 01/03/2025 1:00 PM CDT Home Care Visit [address] [address] Leela Rao, RN SN - OASIS DISCHARGE 12/26/2024 12:30 PM CDT Home Care Visit [address] [address] Leela Rao RN SN - WOUND VISIT 12/23/2024 1:30 PM CDT Home Care Visit [address] [address] Sidra Noble LPN SN - WOUND VISIT 12/19/2024 5:00 PM VALUE STREAM MANAGER Home Care Visit [address] [address] Leela Rao, RN SN - WOUND VISIT 12/17/2024 11:30 AM VALUE STREAM MANAGER Home Care Visit [address] [address] Cintia Chen, PT PT - DISCIPLINE DISCHARGE 12/16/2024 2:00 PM VALUE STREAM MANAGER Home Care Visit [address] [address] Loreto Green, MECHANICAL SERVICE TECHNICIAN PT - HOME VISIT 12/16/2024 2:00 PM VALUE STREAM MANAGER Home Care Visit [address] [address] Leela Rao, RN SN - WOUND VISIT 12/16/2024 Home Care Visit [address] [address] Leela Rao, RN TELEPHONE ENCOUNTER 12/12/2024 11:30 AM VALUE STREAM MANAGER Home Care Visit [address] [address] Loreto Green, MECHANICAL SERVICE TECHNICIAN PT - HOME VISIT 12/12/2024 Home Care Visit [address] [address] Kirstin Santana OT OT - DISCHARGE SUMMARY 12/11/2024 2:30 PM VALUE STREAM MANAGER Home Care Visit [address] [address] Leela Rao, RN SN - WOUND VISIT 12/10/2024 2:00 PM VALUE STREAM MANAGER Home Care Visit [address] [address] Xiomara Jiang, RENETTA OT - DISCIPLINE DISCHARGE 12/10/2024 10:00 AM VALUE STREAM MANAGER Home Care Visit [address] [address] Loreto Green, MECHANICAL SERVICE TECHNICIAN PT - HOME VISIT 12/10/2024 Home Care Visit [address] [address] Xiomara Jiang, RENETTA CASE COMMUNICATION 12/09/2024 11:30 AM VALUE STREAM MANAGER Home Care Visit [address] [address] Sidra Noble LPN SN - WOUND VISIT 12/06/2024 1:30 PM VALUE STREAM MANAGER Home Care Visit [address] [address] Leela Rao, RN SN - WOUND VISIT 12/05/2024 12:30 PM VALUE STREAM MANAGER Home Care Visit [address] [address] Loreto Green, MECHANICAL SERVICE TECHNICIAN PT - HOME VISIT 12/05/2024 11:00 AM VALUE STREAM MANAGER Home Care Visit [address] [address] Xiomara Jiang, RENETTA OT - HOME VISIT 12/05/2024 Home Care Visit [address] [address] Xiomara Jiang, RENETTA CASE COMMUNICATION 12/03/2024 12:00 PM VALUE STREAM MANAGER Home Care Visit [address] [address] Loreto Green, MECHANICAL SERVICE TECHNICIAN PT - HOME VISIT 12/03/2024 9:30 AM VALUE STREAM MANAGER Home Care Visit [address] [address] Kirstin Santana OT OT - HOME VISIT 12/03/2024 Home Care Visit [address] [address] Leela Rao, RN CARE CONFERENCE 12/02/2024 3:30 PM VALUE STREAM MANAGER Home Care Visit [address] [address] Leela Rao, RN SN - WOUND VISIT [...] (196 lb 3.4 oz) 12/17/2024 11:30 AM VALUE STREAM MANAGER Height 182.9 cm (6') 11/29/2024 9:36 AM VALUE STREAM MANAGER Body Mass Index 26.61 11/29/2024 9:36 AM VALUE STREAM MANAGER Plan of Treatment Health Maintenance Due Date [...] patient's age to complete this topic [facility] Advance Directives * Full Code (Latest Code Status on File) Date Activated Date Inactivated Comments 11/27/2024 4:04 PM
--- OUTSIDE RECORDS SUMMARY | 2025-03-01 05:39 | XMS_ITS | Encounter Summary ---
Author Organization [facility] Address [address] [place] [address] Care Team Providers Care Inventory Specialist Manager Name Role Phone Gia Clark PA-C Primary Care Provider Encounter Details Date Type Department Care Team (Late st Contact Info) Description 06/14/2023 Lab Requisition [facility] - Pathology Lab [address] [place] [address] Cristiano Joe MD [facility] [address] [address] Generalized enlarged lymph nodes Social History Tobacco [...] AM CDT) Case Report Flow Cytometry Case: [id number] Authorizing Provider: Cristiano Joe MD Collected: 06/14/2023 10:46 AM Ordering Location: [facility] Pathology Lab Received: 06/14/2023 04:46 PM Pathologist: Jamel Ashby MD Specimen: Lymph Node, LEFT PELVIC AREA 06/15/2023 8:52 AM [facility] PATHOLOGY LAB Final Diagnosis Lymph node, left pelvic area, flow cytometric immunophenotypic analysis: - Insufficient hematopoietic cells for analysis. - See interpretation. 06/15/2023 8:52 AM [facility] Flow Cytometry Interpretation Preliminary characterization of the lymph node specimen demonstrates too few hematopoietic cells for flow cytometric analysis. A cytospin prepared from the flow cytometry specimen is reviewed for compliance quality performance analyst purposes. Flow cytometry is not performed. 06/15/2023 8:52 AM [facility] PATHOLOGY LAB Flow Cytometry Results Too few hematopoietic cells for flow cytometric analysis. 06/15/2023 8:52 AM [facility] Reason for test Generalized enlarged lymph nodes 785.6 06/15/2023 8:52 AM [facility] Client Specimen ID # [id number] 06/15/2023 8:52 AM [facility] Pathologist Location at [facility] 06/15/2023 8:52 AM [facility] Disclaimer Test performed at [facility], [address] [place] [address], [address]. *The established laboratory minimum viability is 70%. [...] PATHOLOGY LAB Embedded Images 8:52 AM T [facility] PATHOLOGY LAB Pathology/Cytolo gy ENTIRE LYMPH NODE / Unknown 06/14/2023 10:46 AM CDT 06/14/2023 4:46 PM CDT Cristiano Joe MD LAB - PATHOLOGY/CYTOLOGY ORDERAB LES Final Result [facility] PATHOLOGY LAB [address] [facility]. [address] [phone] documented in this encounter Visit Diagnoses Diagnosis Generalized enlarged lymph nodes Enlargement of lymph nodes documented in this encounter Care Teams Inventory Specialist Manager Relationship Specialty Start Date End Date Gia Clark PA-C [address] [place] [address] PCP - General 05/24/22 documented as of this encounter
--- OUTSIDE RECORDS SUMMARY | 2025-03-01 05:39 | XMS_ITS | Clinical Summary ---
Author Organization [facility] Address Count includes the [facility] [place] [address] Care Team Providers Care Toe Stapler Name Role Phone Gia Clark PA-C Primary Care Provider [phone] Allergies No known active allergies Medications sodium [...] this topic Medical Devices Implanted Type Area Director Internal Audit Device Identifier Shelf Expiration Date Model / Serial / Lot Dirk Clareon Iol Implanted:Qty: 1 on 06/13/2022 by Jung Rosales MD at [facility] Left: Eye DIRK - SURGICAL DIV 02/27/2025 [id number] / [id number] / Insurance [facility] Care Teams Toe Stapler Relationship Specialty Start Date End Date Gia Clark PA-C PCP - General PHYSICIAN BRIDGE PAINTER HELPER 06/13/22
--- OUTSIDE RECORDS SUMMARY | 2025-03-01 05:39 | XMS_ITS | Referral Summary ---
Author Organization [facility] [address] Address [address] [place] [address] Care Team Providers Care Quality Control Lab Tech Name Role Phone Gia Clark Primary Care Provider [phone] Harry Loredo MD Unavailable [phone] Rachell Mcnulty MD Unavailable [phone] Ramonita Feldman RN Unavailable [phone] Encounters Date Type Department Care Team Description 01/24/2025 Telephone [facility] Cardiology [address] [facility] [address] [place] [address] Harry Loredo MD from Last [...] (09/02/2022): Added automatically from request for surgery [id number] Hypertension 02/14/2022 Renal mass 02/14/2022 Immunizations Immunization [...] Plan of Treatment Not on file Insurance [facility] P[facility] Care Teams Quality Control Lab Tech Relationship Specialty Start Date End Date Gia Clark PA [address] [place] [address] PCP - General Physician Telephone Directory Deliverer 09/15/22 Harry Loredo MD [address] [facility] [address] [place] [address] Consulting Physician Cardiovascular Disease 03/18/24 Rachell Mcnulty MD [address] [facility] F[address] [address]80 [place] [address] Referring Physician Nephrology 06/05/24 Ramonita Feldman, RN [address] [place] [address] Herbarium Curator 06/05/24
--- OUTSIDE RECORDS SUMMARY | 2025-03-01 05:39 | XMS_ITS | Clinical Summary ---
Author Organization [facility] Address [address] [facility] [place] [address] Care Team Providers Care Kindergarten Tutor Name Role Phone Gia Clark PA-C Primary Care Provider [phone] Source Comments [facility],non-owned Affiliates and Associated Physician Practices is amultiple site organization consisting of ambulatory clinics and hospital sitesin [place], [place], [place] and [place]. This disclosure is being madepursuant to the Care Everywhere program and may not contain all information available regarding this patient. Last updated 18.[facility] Social History Tobacco Use Types Packs/Day Years [...] patient's age to complete this topic Insurance [facility] * Guarantor: KAR SLOAN Account Type Relation to Patient Date of Phone Billing Address Personal/Family Spouse Care Teams Kindergarten Tutor Relationship Specialty Start Date End Date Gia Clark PA-C [address] [place] [address] PCP - General 05/24/22
--- OUTSIDE RECORDS SUMMARY | 2025-03-01 05:39 | XMS_ITS | Clinical Summary ---
Author Organization [facility] [address] Address [address] [place] [address] Care Team Providers Care Home Planning Consultant Salesperson Name Role Phone Gia Clark Primary Care Provider [phone] Harry Loredo MD Unavailable [phone] Rachell Mcnulty MD Unavailable [phone] Ramonita Feldman RN Unavailable [phone] Allergies No known active allergies Medications [...] (09/02/2022): Added automatically from request for surgery [id number] Hypertension 02/14/2022 Renal mass 02/14/2022 Encounters Date Type Department Care Team Description 01/24/[address] [facility] Medical [facility] Cardiology 30[address] [facility] [address] [place] [address] Harry Loredo MD from Last [...] - Td or Tdap) 07/15/2032 07/15/2022 Insurance [facility] Address: [facility] [id number] [place] [address] [employer] [place] [employer] [place] Care Teams Home Planning Consultant Salesperson Relationship Specialty Start Date End Date Gia Clark PA [facility]5 [place] [address] PCP - General Physician Service Advisor 09/15/22 Harry Loredo MD [address] [facility] [address] [place] [address] Consulting Physician Cardiovascular Disease 03/18/24 Rachell Mcnulty MD [address] [facility] F[facility] [address] [place] [address] Referring Physician Nephrology 06/05/24 Ramonita Feldman, RN [address] [place], [place] [id number] Fur Grader 06/05/24
--- OUTSIDE RECORDS SUMMARY | 2025-03-01 05:39 | XMS_ITS | Encounter Summary ---
Author Organization [facility] Address [address] [place] [address] Care Team Providers Care Blend Plant Operator Name Role Phone Unavailable Primary Care Provider Unavailabl e Encounter Details Date Type Department Care Team ([facility] Contact Info) Description 06/02/2023 Telephone [facility] Oncology and Hematology - Kulwinder 2[address] [facility] 200 [place] [address] [place] [address] [place] [address] [address] [place] [address] Social History Tobacco Use Types [...] Info) Description 03/05/2025 10:00 AM CDT Appointment [facility] Hyperbaric and Wound Care [place] [address] [place] [address] Jesus Luciano, ERNESTO [address] [place], [place] [id number] 03/21/2025 11:00 AM CDT Office Visit [facility] Oncology and Hematology - Kulwinder [address] [facility] [facility] [address] [place] [address] [place] [address] Aydin Carrasco MD 2[address] [facility] [address] [place] [address] 04/14/2025 10:15 AM CDT Appointment [facility] Heart and Vascular Testing [place] [address] [facility] [address] [place] [address] Shanika Sebastian FNP [address] [facility] [address] [place] [address] 04/14/2025 11:30 AM CDT Office Visit [facility] Heart and Vascular Surgery [address] [facility] [address] [address] [facility] 101 [place] [address] [place] [address] [facility] 101 [place] [address] documented as of this encounter Visit Diagnoses Not on filedocumented in this encounter
--- OUTSIDE RECORDS SUMMARY | 2025-03-01 05:39 | XMS_ITS | Encounter Summary ---
Author Organization [facility] [employer] [facility] Address [address] [place] [address] Care Team Providers Care Healthcare Administration Intern Name Role Phone Unavailable Primary Care Provider Unavailabl e Encounter Details Date Type Department Care Team (Late st Contact Info) Description 02/24/2025 Orders Only [facility] Oncology and Hematology - Kulwinder [address] [facility] 200 [place] [address] Aydin Carrasco MD 2[address] [facility] [address] [place] [address] Renal cell carcinoma of right [...] Info) Description 03/05/2025 10:00 AM CDT Appointment [facility] Hyperbaric and Wound Care [place] [address] [place] [address] Jesus Luciano, ERNESTO [address] [place], [place] [phone] 03/21/2025 11:00 AM CDT Office Visit [facility] Oncology and Hematology - Kulwinder 2227 [facility] 200 [place] [address] Aydin Carrasco MD [address] [facility] [address] [place] [address] 04/14/2025 10:15 AM CDT Appointment [facility] Heart and Vascular Testing [facility] [address] [facility] [address] [place] [address] Shanika Sebastian FNP [address] [facility] 305 [place] [address] 04/14/2025 11:30 AM CDT Office Visit [facility] Heart and Vascular Surgery [address] [facility] 101 [address] [facility] 101 [place] [address] [place] [address] [facility] 101 [place] [address] documented as of this encounter Visit Diagnoses Diagnosis Renal cell carcinoma of right kidney (CMS/HCC) Benign hypertension Essential hypertension, benign documented in this encounter
--- OUTSIDE RECORDS SUMMARY | 2025-03-01 05:39 | XMS_ITS | Continuity of Care Document ---
Author Organization [facility] Address [address] [place] [address] Exec ut[address] [facility] [address] [place] [address] Phone Care Team Providers Care Medical Office Administrator Name Role Phone Marcos OD, Sebas Unavailable Unavailable Advance Directives Directive Yes / No Effective Date File Name No Information Encounters Encounter Description Practice Location Reason(s) For Visit Diagnoses Date Provider Providers Copied on Encounter [facility], [address] [place] [address] [address], [place], [place], [id number], [place] tel:[phone] [facility] No Information Aug-0 4-200 5 Marcos OD Sebas. [address] , [address], [place], [address], [place]. tel:[phone] Family History Family Member Type Diagnosis Age At Onset No Information Payers Payer name Insurance type Covered constitution party ID Authoriza tijean(s) [facility] CI [id number] Social History Type Description Quantity Date Captured [...]
--- OUTSIDE RECORDS SUMMARY | 2025-03-01 05:39 | XMS_ITS | Clinical Summary ---
Author Organization [facility] Rasheed Rivas Address [address] [place] [address] Care Team Providers Care Hosiery Pairer Name Role Phone Unavailable Primary Care Provider [...] daily. 60 Tablet 1 11/26/2024 5:26 PM CARPET INSPECTOR 5 Active atorvastatin (LIPITOR) 40 mg tablet Take 1 Tablet (40 mg) by mouth daily at bedtime. 30 Tablet 2 11/26/2024 5:26 PM CARPET INSPECTOR 5 Active sennosides-docus ate sodium (SENNA-S) 8.6-50 mg tablet Take 1 Tablet by mouth 2 times daily. Active fluticasone furoate-vilanter oL (BREO ELLIPTA) 200-25 mcg/dose Disk with Device Starting 11/26/24, Take 1 Puff by inhalation daily. 60 Each 2 11/26/2024 5:26 PM CARPET INSPECTOR Active axitinib 5 mg tablet Take 1 [...] Department Care Team Description 02/24/2025 Orders Only [facility] Oncology and [facility] [address] [place] [id number] Aydin Carrasco MD Renal cell carcinoma of right kidney (CMS/HCC); Benign hypertension 02/12/2025 Abstract [facility] Oncology [facility] [address] [place] [id number] Aydin Carrasco MD 02/12/2025 Orders Only [facility] Oncology [facility] [address] [place] [address] Aydin Carrasco MD Renal cell carcinoma of right kidney (CMS/HCC) (Primary Dx); Benign hypertension 02/11/2025 Orders Only [facility] Oncology [facility] [address] [place] [address] Aydin Carrasco MD Renal cell carcinoma of right kidney (CMS/HCC) (Primary Dx); Need for hepatitis B screening test; Chronic anemia; Prostate cancer (CMS/HCC); Pelvic lymphadenopathy 02/07/2025 Orders Only [facility] Oncology [facility] [address] [place] [address] Aydin Carrasco MD 02/05/2025 9:41 AM CDT - 02/05/2025 11:59 PM CDT Hospital Encounter [facility] Hyperbaric and Wound Care [facility] [address] [place] [address] Jesus Luciano, DPM Discharge Disposition: Home or Self Care 02/05/2025 Refill [facility] Oncology and Hematology - [place] [address] [place] [address] Aydin Carrasco MD Renal cell carcinoma of right kidney (CMS/HCC) (Primary Dx) 01/31/2025 Specialty Pharmacy [facility] [address] [place] [address] [place] [address] Patricia Flower, PHARMACIST 01/31/2025 Specialty Pharmacy [facility] [address] [place] [address] [place] [address] Patricia Flower, PHARMACIST Specialty Pharmacy Financial Assistance 01/22/2025 9:41 AM CDT - 01/22/2025 11:59 PM CDT Hospital Encounter [facility] Hyperbaric and Wound Care [facility] [address] [place] [address] Jesus Luciano, DPM Discharge Disposition: Home or Self Care 01/22/2025 Orders Only [facility] Oncology and Hematology [facility] [address] [place] [address] Aydin Carrasco MD Need for hepatitis B screening test (Primary Dx) 01/21/2025 External Device Data STL ABSTRACTION Provider, Abstract 01/20/2025 4:00 PM CDT Telephone Check Up [facility] Oncology and Hematology [facility] [address] [place] [address] Aydin Carrasco MD Renal cell carcinoma of right kidney (CMS/HCC) (Primary Dx) 01/09/2025 Orders Only [facility] Oncology and Hematology [facility] [address] [place] [address] Aydin Carrasco MD 01/03/2025 Abstract [facility] and Vascular Surgery [address] [facility] [address] [facility] [address] [place] [address] Shanika Sebastian FNP 01/02/2025 3:30 PM CDT Office Visit [facility] Heart and Vascular Surgery [address] [facility] 101 [address] [facility] [address] [place] [address] Shanika Sebastian, JOHN PVD (peripheral vascular disease) (Primary Dx) 01/02/2025 1:31 PM CDT - 01/02/2025 11:59 PM CDT Hospital Encounter [facility] Heart and Vascular Testing [facility] [address] [facility] [address] [place] [address] Patricia Quezada, WILLIAM Discharge Disposition: Home or Self Care 01/01/2025 11:00 AM CDT - 01/01/2025 11:59 PM CDT Hospital Encounter [facility] [address] [facility] [place] [address] Jesus Luciano, DPM Discharge Disposition: Home or Self Care 01/01/2025 External Device Data STL ABSTRACTION Provider, Abstract 12/21/2024 External Device Data STL ABSTRACTION Provider, Abstract 12/20/2024 External Device Data STL ABSTRACTION Provider, Abstract 12/18/2024 10:37 AM CARPET INSPECTOR - 12/18/2024 11:59 PM CARPET INSPECTOR Hospital Encounter [facility] [address] [facility] [place] [address] Jesus Luciano, DPM Discharge Disposition: Home or Self Care 12/18/2024 External Device Data STL ABSTRACTION Provider, Abstract 12/17/2024 External Device Data STL ABSTRACTION Provider, Abstract 12/16/2024 9:15 AM CARPET INSPECTOR Office Visit [facility] Oncology and Hematology [facility] [address] [place] [address] Aydin Carrasco MD Renal cell carcinoma of right kidney (CMS/HCC) (Primary Dx) 12/11/2024 Abstract [facility] Oncology and Hematology [facility] [address] [place] [address] Aydin Carrasco MD 12/11/2024 Orders Only [facility] Oncology and Hematology [facility] [address] [place] [address] Aydin Carrasco MD 12/06/2024 Telephone [facility] Heart and Vascular Surgery [address] [facility] [address] [address] [facility] [address] [place] [address] Franca Dykes MD Question 12/03/2024 [...] Info) Description 03/05/2025 10:00 AM CDT Appointment [facility] Hyperbaric and Wound Care [place] [address] [place] [phone] Jesus Luciano, ERNESTO [address] [address] [place], [place] [phone] 03/21/2025 11:00 AM CDT Office Visit [facility] Oncology and Hematology [facility] [address] [facility] [address] [place] [address] Aydin Carrasco MD [address] [facility] [address] [place] [address] 04/14/2025 10:15 AM CDT Appointment [facility] Heart and Vascular Testing [facility] [address] [facility] [address] [place] [address] Shanika Sebastian FNP [address] [facility] [address] [place] [address] 04/14/2025 11:30 AM CDT Office Visit [facility] Heart and Vascular Surgery [address] [facility] 101 [address] [facility] [address] [place] [address] [place] [address] [facility] [address] [place] [address] Health Maintenance Due Date Last [...] 07/15/2022, 07/05/2022 Medical Devices Implanted Type Area Substation Superintendent Device Identifier Shelf Expiration Date Model / Serial / Lot Patch Vascu-Guard 1.0x10cm [id number] - [id number] Implanted:Qty: 1 on 11/20/2024 by Franca Dykes MD at [facility] Right: Groin [employer] 09/03/2025 [id number] / / [id number] Patch Vascu-Guard 0.8x8cm Cardio [id number] - [id number] Implanted:Qty: 1 on 11/20/2024 by Franca Dykes MD at [facility] Collagen Right: Groin [employer] 05/20/2026 [id number] / / [id number] Hemostatic Surgifoam Sz12-7 1971 - [id number] Implanted:Qty: 1 on 11/20/2024 by Franca Dykes MD at [facility] Hemostatic Right: Groin [employer] 03/11/20281971 / / [id number] Hemostatic Surgiflo 8ml W/ Thrombin 2994 - [id number] Implanted:Qty: 1 on 11/20/2024 by Franca Dykes MD at [facility] Hemostatic [employer] 10/15/2025 [id number] / / [id number] Procedures Procedure Name Priority Date/Time Associated Diagnosis [...] W GRAM STAIN Routine 12/18/2024 11:34 AM CARPET INSPECTOR 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 INT DAVID 1 THERAPY COMMENTS Note 1: This isolate is beta-lactamase Positive. A Positive result predicts resistance to Penicillin, Ampicillin and Amoxicillin. AEROBIC CULTURE SEE NOTE(A) LitehouseAlexanderShavonne Novak Comment: CULTURE, AEROBIC BACTERIA Micro Number: [id number] Test Status: Final Specimen Source: Right foot [...] values are not provided. Test Performed at: [facility] [place] [address] [address] [place] [address] Yohana-Celina [facility] Lesion/Drainage Fluid (Foot, right) 01/22/2025 10:27 AM CDT 01/23/2025 2:50 AM CDT Jesus Luciano DPM MICROBIOLOGY - GENERAL ORDZoraida TAYLOR Final Result [facility] [phone] [place] [address] [address] [place] [id number] * PATHOLOGY REPORT (01/07/2025 3:59 PM CDT) us Aydin Carrasco MD PATHOLOGY/CYTOLOGY ORDERABLES F inal Result * US ANKLE PRESSURE INDEX (01/02/2025 3:13 PM CDT) Anatomical Region Laterality Modality Lower Extremity Ultrasound 01/02/2025 2:30 PM CDT Narrative 01/02/2025 4:08 PM CDT [facility] Arterial Physiologic Evaluation Patient: Kar Sloan Study ID: 1 Gender: M : 1960 Age: 64 Race: HUNTER Height 182.9cm Study Date: 01/02/2025 Weight: 89.8kg Access. #: [id number] *Referring Physician:Patricia Montanez Amy Elizabeth *Ordering Physician:Patricia Montanez *Hand Upper And Bottom Lacer:Dory Underwood Indications: PVD. History: Risk factors: Recent [...] Hg Prepared and Electronically Authenticated Mariaa Mathew [id number]:08:12 Procedure Note Mariaa Mathew MD - 01/02/2025 [facility] Arterial Physiologic Evaluation Patient: Kar Sloan Study ID: 1 Gender: M : 1960 Age: 64 Race: HUNTER Height 182.9cm Study Date: 01/02/2025 Weight: 89.8kg Access. #: [id number] *Referring Physician:Patricia Montanez AmyElizabeth *Ordering Physician:Patricia Montanez *Hand Upper And Bottom Lacer:Dory Underwood Indications: PVD. History: Risk factors: Recent [...] Hg Prepared and Electronically Authenticated Mariaa Mathew [id number]:08:12 us Patricia Quezada SOLDER LEVELER PRINTED CIRCUIT BOARDS US ORDERABLES Final Res ult * BASIC METABOLIC PANEL (12/11/2024 4:32 PM CARPET INSPECTOR) Blood Aydin Carrasco MD CHEMISTRY ORDERABLES Final Resu lt * CBC WITH AUTODIFFERENTIAL (12/11/2024 11:49 AM CARPET INSPECTOR) Blood Aydin Carrasco MD HEMATOLOGY ORDERABLES Final Res ult * HEMOGLOBIN A1C (11/14/2024 12:58 AM CARPET INSPECTOR) HEMOGLOBIN A1C 5.4 <=5.6 % 11/14/2024 2:30 AM CARPET INSPECTOR [facility] EST. AVG GLUCOSE, A1C 108 mg/dL 11/14/2024 2:30 AM CARPET INSPECTOR [facility] Blood Venipuncture / Unknown 11/14/2024 12:58 AM CARPET INSPECTOR 11/14/2024 2:12 AM CARPET INSPECTOR Narrative [facility] - 11/14/2024 2:30 AM CARPET INSPECTOR HGB A1C INTERPRETATION NORMAL: <5.7% PRE-DIABETES: 5.7 - 6.4% DIABETES: 6.5% OR GREATER Joseph Yee NP CHEMISTRY ORDERABLES Final Res ult [facility] CLIA# [id number] [address] [place] [address] from Last 3 Months or Most Recently Relevant to Health Maintenance Insurance [facility] BLUE ACCESS/TRUE BLUE PPO BCBS BLUE ACCESS/TRUE BLUE PPO RX [facility] Advance Directives For more information, please contact: [phone] Documents on File Type Date Recorded Patient Television Host Expl anation Advance Directive POA 11/21/2024 12:12 PM A dvance Directive POA * Full Code (Latest Code Status on File) Date Activated Date Inactivated Comments 11/13/2024 9:50 PM 11/26/2024 8:21 PM
--- OUTSIDE RECORDS SUMMARY | 2025-03-01 05:39 | XMS_ITS | Clinical Summary ---
Author Organization [facility] Radha reese Address [address] [place] [address] Phone Care Team Providers Care Process Analyst Name Role Phone Gia Clark Primary Care Provider [phone] Allergies No known active allergies Medications amLODIPine [...] on file Legal Sex Male 8:10 AM [facility] [email or web address] Gender Identity Not on file Sexual Orientation [...] 08/10/20 21, 07/31/2020 Insurance [employer] Care Teams Process Analyst Relationship Specialty Start Date End Date Gia Clark PA [address] [place] [id number] PCP - General 01/03/22
--- OUTSIDE RECORDS SUMMARY | 2025-03-01 05:40 | XMS_ITS ---
[facility] Address [address] [place] [address] Care Team Providers Care Injection Molding Technician Name Role Phone Unavailable Primary Care [...]
--- NOTE | 2025-03-01 07:01 | ED_ITS ---
HPI - Extremity Injury (Upper) General Chief Complaint: Extremity Injury, Upper Stated Complaint: Fell-injury right wrist Time Seen by Provider: 03/01/25 05:23 History of Present Illness HPI narrative: 64-year-old male with history of dialysis presenting to the emergency depart with a chief complaint of right wrist pain. He states that he was walking his dog when the dog talked him and he fell forward. Landed onto his right hand but denies any swelling. This is the and he gets dialysis access from. Good palpable thrill. No neurological complaints, good range of motion. Did not take anything for pain prior to arrival. No swelling or bruising. Related Data Home Medications Medication Instructions Recorded Confirmed Last Taken Type amlodipine 10 mg tablet 10 mg PO QAM 12/30/21 02/11/25 02/06/25 History hydralazine 25 mg tablet 25 mg PO BID 10/31/22 02/11/25 02/06/25 History cholecalciferol (vitamin D3) 75 75 mcg PO DAILY 10/25/23 02/11/25 02/04/25 History mcg (3,000 unit) tablet apixaban 5 mg tablet (Eliquis) 5 mg PO Q12H 11/09/24 02/11/25 01/31/25 History metoprolol succinate 200 mg 200 mg PO DAILY 11/09/24 02/11/25 02/06/25 History tablet,extended release 24 hr sevelamer HCl 800 mg tablet 800 mg PO TIDWMEAL 11/09/24 02/11/25 02/06/25 History atorvastatin 20 mg tablet (Lipitor) 20 mg PO HS 12/31/24 02/11/25 02/06/25 History fluticasone furoate 200 1 inh inhalation DAILY 01/29/25 02/11/25 Unknown History mcg-vilanterol 25 mcg/dose inhalation powder axitinib 5 mg tablet (Inlyta) 5 mg PO BID 02/12/25 02/12/25 Unknown History ondansetron 8 mg disintegrating 8 mg PO Q8H PRN nausea and vomiting 02/12/25 02/12/25 Unknown History tablet Allergies Allergy/AdvReac Type Severity Reaction Status Date / Time No Known Allergies Allergy Verified 03/01/25 04:38 Review of Systems Review of Systems: As reviewed above in [facility] Past Medical History Medical History Atrial flutter by electrocardiogram Ulnar neuropathy [place] Personal history of colonic polyps BMI 26.0-26.9,adult Secondary renal hyperparathyroidism Vitamin D deficiency Volume overload Acute gastrointestinal bleeding Acute on chronic renal failure ETOH abuse Peripheral neuropathy Right renal mass Incarcerated ventral hernia Tobacco abuse Kidney stones Hypertension Surgical History Surgical History H/O ventral hernia repair Incarcerated Ventral Hernia repair w poss mesh 05/10/22. H/O hernia repair H/O right nephrectomy Family History Family History Sibling Diabetes mellitus Grandparent Family history of malignant neoplasm Mother Family history of malignant neoplasm Father Family history of malignant neoplasm Social History Social History Social History: Patient elects his brother Martin to be his surrogate. He has no kids or pets at this time. Patient wishes to be a full code. Smoking packs per day: 1 Smoking cigarettes per day: 20.0 Years smoked: 40 Smoking pack-years: 40.00 Smoking status: Current every day smoker Tobacco type: cigarettes Smokeless tobacco user: chewing tobacco Second hand tobacco smoke exposure: Yes Additional smoking assessment comments: STATES STARTING SMOKING AGE 13 Alcohol intake: current Drinks per week: 7 Alcohol use details: 4 oz vodka daily Substance use: never Substance use type: does not use Other substance usage details: drinks vodka every day Last use: 10/24/23 Do You Feel Safe in your Home?: Yes Lack of Transportation: No Lack of Food: Never True Current Housing: I Have Housing Concerned About Future Housing: No Difficulty Paying Gas/Electric Bills: No Difficulty Paying for Meds: No Currently Unemployed: No Education: High School Diploma/GED Difficulty w/ Childcare or Family Care: No Living arrangements: alone Occupation/Education: occupation Additional occupation/education comments: [employer] Gender identity (if verbalized by the patient): Male Sexual Orientation (if Verbalized by the Patient): Straight or Heterosexual Spiritual care concerns: No Agree to blood products: Yes Exam Narrative: GENERAL: [Well-appearing, well-nourished, and in no acute distress.] HEAD: [Normocephalic, atraumatic.] EYES: [PERRLA and EOMI.] ENT: Nares clear, no rhinorrhea or epistaxis. Mucous membranes moist. NECK: Supple. CHEST: [Clear to auscultation. No respiratory distress.] HEART: [Regular rate and rhythm]. No murmur heard. [Normal peripheral pulses.] ABDOMEN: [Soft, nondistended], [nontender], [No rigidity or guarding] EXTREMITIES: Some tenderness to palpation over the distal right wrist without any swelling or appreciable deformity. No overlying skin changes. Good distal neuro vasculature, heating and ventilation engineer strength 5/5, able to oppose each digit make a thumbs-up sign. No scaphoid tenderness. Good palpable thrill in the AV fistula his right upper extremity. SKIN: Warm, dry, no rash. NEURO: [No focal deficits]. Alert and oriented [x3.] PSYCH: [Normal mood and affect.] Course Vital Signs Vital signs: Vital Signs Temperature 36.4 C L 02/28/25 23:03 Pulse Rate 64 02/28/25 23:03 Respiratory Rate 16 02/28/25 23:03 Blood Pressure 158/76 H 02/28/25 23:03 Pulse Oximetry 98 02/28/25 23:03 Oxygen Delivery Room Air 02/28/25 23:03 Temperature 36.4 C L 02/28/25 23:03 Pulse Rate 67 03/01/25 04:36 Respiratory Rate 19 03/01/25 04:36 Blood Pressure 183/91 H 03/01/25 04:36 Pulse Oximetry 98 03/01/25 04:36 Oxygen Delivery Room Air 02/28/25 23:03 MDM - Extremity Injury (Upper) MDM Narrative Medical decision making narrative: 64-year-old male presenting with minor trauma to his right wrist after falling while walking his dog. No appreciable injury externally, good palpable thrill in his AV fistula in the right upper extremity. 2+ radial pulses. Good distal capillary refill and able to supinate and pronate the wrist and heating and ventilation engineer strength is full. Suspicion presently is for contusion rather than occult fracture or dislocation. X-rays were obtained and negative. Patient discharged home with an Iglesia wrap and recommendations for pain control medications. Patient will proceed to his morning schedule dialysis from the ER. Medical Records Attestation: I reviewed the patient's medical records. Imaging Data Attestation: I personally reviewed and interpreted this imaging study as follows: My impression: Impressions Wrist X-Ray 03/01/25 00:11 IMPRESSION: No acute osseous abnormality right wrist. Discharge Plan Discharge Clinical Impression: Right wrist sprain Patient Disposition: Home Condition: Stable Instructions: Antibiotic Form Patient Language: Indonesian Prescriptions: No Action Inlyta 5 mg tablet 5 mg PO BID ondansetron 8 mg tablet,disintegrating 8 mg PO Q8H PRN (Reason: nausea and vomiting) Rx Instructions: 1st dose 1-2 hr before radiation hydralazine 25 mg tablet 25 mg PO BID amlodipine 10 mg Tablet 10 mg PO QAM cholecalciferol (vitamin D3) 75 mcg (3,000 unit) Tablet 75 mcg PO DAILY Eliquis 5 mg tablet 5 mg PO Q12H sevelamer HCl 800 mg tablet 800 mg PO TIDWMEAL metoprolol succinate 200 mg tablet extended release 24 hr 200 mg PO DAILY atorvastatin [Lipitor] 20 mg tablet 20 mg PO HS fluticasone furoate-vilanterol 200-25 mcg/dose blister with device 1 inh INHALATION DAILY sodium bicarbonate 650 mg tablet 650 mg PO BID Qty: 60 11RF furosemide 20 mg tablet See Rx Instructions .ROUTE .COMPLEX Qty: 90 3RF Dose Instruction: TAKE 1 TABLET BY MOUTH EVERY MORNING Rx Instructions: TAKE 1 TABLET BY MOUTH EVERY MORNING Follow-up/Referrals: UNKNOWN,DOCTOR [Primary Care Provider] - Time of Disposition: 05:31
== END 2025-03-01 05:58 | disposition home or self-care (01) ==
LOC: ANHED 03-01 05:37
PROVIDERS: Emergency Provider Student in an Organized Health Care Education/Training Program
DX: S63.501A Unspecified sprain of right wrist, initial encounter (principal); W18.30XA Fall on same level, unspecified, initial encounter; Z79.01 Long term (current) use of anticoagulants; E55.9 Vitamin D deficiency, unspecified; I48.92 Unspecified atrial flutter; I10 Essential (primary) hypertension; F17.210 Nicotine dependence, cigarettes, uncomplicated
CPT/HCPCS: 73110; 99283

== ENCOUNTER 2025-05-08 23:32 | Emergency (ER) | payer BC, SELFPAY ==
--- NOTE | ~2025-05-08 | XR_ITS ---
EXAMINATION: XR chest 1V portable DATE: 05/08/2025 23:55 INDICATION: Cardiac arrest TECHNIQUE: frontal view of the chest was obtained. COMPARISON: Chest radiograph dated 02/07/2025 FINDINGS: Left subclavian central venous port catheter with distal tip at the high right atrium. Paramediastina l mass in the right upper lung zone. Hazy opacity throughout the right lung with blunting at the cost ophrenic and cardiophrenic angles and V of the right apex suggesting a small to moderate-sized right pleural effusion. Opacities at the right lung base which could represent atelectasis or less likely p neumonia. Left lung is clear with no pleural effusion. There is significant asymmetry to the pulmonar y vasculature which is significantly more prominent on the right which could be due to right-sided pu lmonary vascular congestion and secondary pulmonary edema although could not exclude oligemia in the left lung such as could be seen with pulmonary embolism. No pneumothorax. Heart size is normal. Coron harrison artery calcifications. IMPRESSION: 1. Prominent asymmetry to the pulmonary vasculature and interstitial pattern which is significantly g reater on the right than the left. This could be due to right-sided pulmonary vascular congestion and ulnar edema versus left-sided pulmonary vascular oligemia such as in the setting of unilateral pulmo nary embolism. 2. Small to moderate-sized right pleural effusion with right basilar atelectasis versus less likely p neumonia. 3. Paramediastinal masslike opacity right upper lung zone raising concern for malignancy with differe ntial including pneumonia or right upper lobe atelectasis. For further evaluation of both this and th e asymmetric pulmonary vascular pattern would recommend PE protocol chest CT. Reviewed, dictated and finalized at location A. IMPRESSION: 1. Prominent asymmetry to the pulmonary vasculature and interstitial pattern wh ich is significantly greater on the right than the left. This could be due to r ight-sided pulmonary vascular congestion and ulnar edema versus left-sided pulm onary vascular oligemia such as in the setting of unilateral pulmonary embolism . 2. Small to moderate-sized right pleural effusion with right basilar atelectasi s versus less likely pneumonia. 3. Paramediastinal masslike opacity right upper lung zone raising concern for m alignancy with differential including pneumonia or right upper lobe atelectasis . For further evaluation of both this and the asymmetric pulmonary vascular pat tern would recommend PE protocol chest CT.
--- NOTE | ~2025-05-08 | XR_ITS ---
XR chest ET placement 05/09/2025 00:39 Indication: Post procedure intubation Procedure: AP portable chest Comparison: Comparison to multiple prior studies sequentially, with oldest reviewed study dated 12/2023. Findings: Left lung not adequately visualized due to overpenetration. Endotracheal tube tip 4.3 cm ab ove the katey. NG tube in the esophagus, recommend advancement. Asymmetric right-sided interstitial infiltrates, most likely edema.. Possible small effusions. Cannot exclude left-sided pneumothorax bas ed on technique. Central venous catheter tip in the SVC. Impression: 1: Persistent asymmetric right-sided infiltrates which may represent asymmetric edema or less likely pneumonia. 2: Limited visualization of left lung parenchyma due to technique. Cannot exclude left pneumothorax. Recommend repeat chest x-ray. 2: NG tube in the esophagus, recommend advancement. Reviewed, dictated and finalized at location A. Impression: 1: Persistent asymmetric right-sided infiltrates which may represent asymmetric edema or less likely pneumonia. 2: Limited visualization of left lung parenchyma due to technique. Cannot exclu de left pneumothorax. Recommend repeat chest x-ray. 2: NG tube in the esophagus, recommend advancement.
[2025-05-08 23:34] VITALS: BP 153/135; PULSE 61; RESP 31; TEMP 35.1; O2SAT 98
--- OUTSIDE RECORDS SUMMARY | 2025-05-08 23:46 | XMS_ITS | Clinical Summary ---
Author Organization [facility] Address [facility] [place] [address] Care Team Providers Care Assistant Federal Public Defender Name Role Phone Gia Clark PA-C Primary Care Provider [phone] Allergies No known active allergies Medications sodium [...] this topic Medical Devices Implanted Type Area Poultry Service Technician Device Identifier Shelf Expiration Date Model / Serial / Lot Dirk Clareon Iol Implanted:Qty: 1 on 06/13/2022 by Jung Rosales MD at [facility] Left: Eye [employer]IR[employer] - SURGICAL DIV 02/27/2025 [id number] / [id number] / Insurance [facility] Care Teams Assistant Federal Public Defender Relationship Specialty Start Date End Date Gia Clark PA-C PCP - General PHYSICIAN EMBEDDED SOFTWARE DEVELOPER 06/13/22
--- NOTE | 2025-05-08 23:47 | ECG_ITS ---
Test Date: 2025-05-08 23:37:55 Measurements Intervals [place] Rate: 64 P: 233 OR: 209 QRS: -2 QRSD: 112 T: 53 QT: 424 QTc: 440 Interpretive Statements SINUS RHYTHM MODERATE ST DEPRESSION [0.05+ mV ST DEPRESSION] Compared to ECG 11/09/2024 07:41:41 Atrial flutter no longer present ST (T wave) deviation still present Electronically Signed On 05-10-2025 18:25:53 CDT by Lavelle Kessler M.D.
--- NOTE | 2025-05-08 23:48 | ED.GENADULT ---
HPI - General Adult General Chief complaint: Unspecified Stated complaint: unresponsive Source: family (brother) and EMS Mode of arrival: EMS Limitations: clinical condition History of Present Illness HPI narrative: Patient presents via EMS. They report that when they originally high done seen patient was alert oriented although seated on the side of the bed and pale. Patient has a history of end-stage renal disease for which he is on dialysis although he did not go to dialysis today due to not feeling well. 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 History renal mass/cancer?. He woke up on the ground, presumably fell. He lives alone and called his brother who then called EMS. While loading the patient, he went unresponsive and was pulseless. Possibly noted a ventricular rhythm but this changed. They note that patient had several variable rhythms, sinus christian, PVCs, intraventricular. CPR was initiated and IO placed for vascular access. No epinephrine was administered as patient had achieved ROSC. He got 50 lido for the IO and push dose epi 10mcg. Brother noted that patient has history of heart issues. Related Data Home Medications ?Medication ?Instructions ?Recorded ?Confirmed ?Last Taken ?Type amlodipine 10 mg tablet 10 mg PO QAM 12/30/21 02/11/25 02/06/25 History hydralazine 25 mg tablet 25 mg PO BID 10/31/22 02/11/25 02/06/25 History cholecalciferol (vitamin D3) 75 75 mcg PO DAILY 10/25/23 02/11/25 02/04/25 History mcg (3,000 unit) tablet apixaban 5 mg tablet (Eliquis) 5 mg PO Q12H 11/09/24 02/11/25 01/31/25 History metoprolol succinate 200 mg 200 mg PO DAILY 11/09/24 02/11/25 02/06/25 History tablet,extended release 24 hr sevelamer HCl 800 mg tablet 800 mg PO TIDWMEAL 11/09/24 02/11/25 02/06/25 History atorvastatin 20 mg tablet (Lipitor) 20 mg PO HS 12/31/24 02/11/25 02/06/25 History fluticasone furoate 200 1 inh inhalation DAILY 01/29/25 02/11/25 Unknown History mcg-vilanterol 25 mcg/dose inhalation powder axitinib 5 mg tablet (Inlyta) 5 mg PO BID 02/12/25 02/12/25 Unknown History ondansetron 8 mg disintegrating 8 mg PO Q8H PRN nausea and vomiting 02/12/25 02/12/25 Unknown History tablet Allergies Allergy/AdvReac Type Severity Reaction Status Date / Time No Known Allergies Allergy Verified 05/02/25 09:13 [facility] Past Medical History Medical History Atrial flutter by electrocardiogram Ulnar neuropathy Melena Personal history of colonic polyps BMI 26.0-26.9,adult Secondary renal hyperparathyroidism Vitamin D deficiency Volume overload Acute gastrointestinal bleeding Acute on chronic renal failure ETOH abuse Peripheral neuropathy Right renal mass Incarcerated ventral hernia Tobacco abuse Kidney stones Hypertension Surgical History Surgical History H/O ventral hernia repair Incarcerated Ventral Hernia repair w poss mesh 05/10/22. H/O hernia repair H/O right nephrectomy Family History Family History Sibling Diabetes mellitus Grandparent Family history of malignant neoplasm Mother Family history of malignant neoplasm Father Family history of malignant neoplasm Social History Social History Social History: Patient elects his brother Martin to be his surrogate. He has no kids or pets at this time. Patient wishes to be a full code. Smoking packs per day: 1 Smoking cigarettes per day: 20.0 Years smoked: 40 Smoking pack-years: 40.00 Smoking status: Current every day smoker Tobacco type: cigarettes Smokeless tobacco user: chewing tobacco Second hand tobacco smoke exposure: Yes Additional smoking assessment comments: STATES STARTING SMOKING AGE 13 Alcohol intake: current Drinks per week: 7 Alcohol use details: 4 oz vodka daily Substance use: never Substance use type: does not use Other substance usage details: drinks vodka every day Last use: 10/24/23 Do You Feel Safe in your Home?: Yes Lack of Transportation: No Lack of Food: Never True Current Housing: I Have Housing Concerned About Future Housing: No Difficulty Paying Gas/Electric Bills: No Difficulty Paying for Meds: No Currently Unemployed: No Education: High School Diploma/GED Difficulty w/ Childcare or Family Care: No Living arrangements: alone Occupation/Education: occupation Additional occupation/education comments: [employer] Gender identity (if verbalized by the patient): Male Sexual Orientation (if Verbalized by the Patient): Straight or Heterosexual Spiritual care concerns: No Agree to blood products: Yes Exam Narrative: GENERAL: well-nourished but pale HEAD: Normocephalic, atraumatic. EYES: Non injected, non icteric ENT: Nares clear, no rhinorrhea or epistaxis. NECK: Supple no masses. Tracha is midline CHEST: Tachypneic. NRB on at 15L. HEART: Regular rate and rhythm. ABDOMEN: Soft, nondistended. No rigidity or guarding. Not peritoneal EXTREMITIES: Amputation R great toe. IO access placed by EMS. Dialysis access R forearm, palpable pulse distal. SKIN: Warm, dry, no rash. Course Vital Signs Vital signs: Vital Signs Temperature 95.1 F L 05/08/25 23:34 Pulse Rate 61 05/08/25 23:34 Respiratory Rate 31 H 05/08/25 23:34 Blood Pressure 153/135 H 05/08/25 23:34 Pulse Oximetry 98 05/08/25 23:34 Oxygen Delivery Non-Rebreather Mask 05/08/25 23:34 Oxygen Flow Rate 15 05/08/25 23:34 Temperature 95.5 F L 05/09/25 01:15 Pulse Rate 104 H 05/09/25 01:57 Respiratory Rate 20 05/09/25 01:57 Blood Pressure 47/25 L 05/09/25 01:36 Pulse Oximetry 100 05/09/25 01:57 Oxygen Delivery Mechanical Ventilation 05/09/25 01:57 Oxygen Flow Rate 15 05/08/25 23:34 Fraction of Inspired Oxygen 100 05/09/25 01:57 Procedures Intubation Intubation #1: Intubation Date: 05/09/25 Intubation Time: 00:16 sedative: Etomidate Mg Given: 25 paralytic: Rocuronium Mg Given: 75 Laryngoscope: Ester (4) Tube Size (cm): 7.5 Method of Intubation: orotracheal Number of Attempts: 1 Tube Secured Depth (cm): 27 Tube Secured Location: lips Tube Placement Confirmation: visualized tube passing through cords and confirmation by capnometry Patient Tolerated Procedure: well Intubation Complications: none Medical Decision Making MDM Narrative Medical decision making narrative: Patient presents via EMS. He had a cardiac arrest witnessed by them. 2 rounds CPR with ROSC. IO placed by them. History ESRD on HD but missed today. Possible history kidney mass/cancer possibly to spine. In the emergency department he is hypothermic with temp of 95.1, tachypneic, and hypertensive although initially a narrow pulse pressure. Initial leading presumption was possible hyperkalemia given missed dialysis. Mouthed his name initially. Maintaining saturation with 15L NRB. He has a leukocytosis and a macrocytic anemia with hemoglobin 7.0. 1 unit blood ordered. (Ultimately not given) Lost pulses again. Discussed patient's 2nd post arrest EKG with calliope player Dr Kessler given the pre populated algorithm suggests acute TN however there are no skip ST elevations except for possibly in AVR. There are ST depressions in V4 V5 and V6. Dr. Kessler confirms that this looks like global ischemia rather than STEMI. Patient's VBG shows significant acidosis. See specifications writer for specifics on medications and times but in sum patient received multiple doses of epinephrine, calcium gluconate, multiple bicarbonate amps, 5U insulin (given pre supposition of possible hyperkalemia). Given CXR findings that possibly show sequelae of PE and his history of cancer again (although patient not hypoxic), when patient lost pulses again, TNK was given given presumption of possible PE. Brother was updated multiple times about the severity of patient's condition given his ROSC is only briefly sustained. DUrign one pulse check, POCUS performed which does not display organized contraction/cardiac activity. There is one episode of pulse check of asystole versus fine vfib, given this 200J defibrillation performed. After approximately 35-40 minutes s/p TNK, patient's [id number] has arrived. Patient's brother has been on the phone with another brother. They have decided to not continue chest compression if no pulse at next pulse check. At this pulse check, patient does have a pulse. HR and BP initially acceptable. Patient's family does produce documentation they had that he filled out when he had been at [facility], signed 11/20/24. This lists on page 4 that he DID NOT WANT to receive the following: Surgery or other invasive procedure; antibiotics; mechanical ventilator/respirator; radiation therapy; heart lung resuscitation/CPR; dialysis; chemotherapy; other life prolonging medical or surgical procedures... They state they thought he brought this documentation to the hospital. A scanned copy of this is found in his chart in January 2025. Patient has produced no urine in Knott bag. Patient's other brother has arrived. Family is in agreement that, as the epi wears off and presuming he loses perfusion again, will not resume chest compressions. Patient becomes hypotensive. IV fluid boluses are going. Despite this becomes bradycardic. == Critical Care: 1 or more vital organ systems impaired with a high probability of imminent or life-threatening deterioration in the patient's condition requiring frequent personal assessment and manipulation of the patient's condition. This included time spent evaluating the patient, speaking with EMS pre-hospital personnel and family, reviewing/interpreting laboratory/imaging studies, discussing the case with consultants or admitting teams, retrieving data and reviewing charts, monitoring for decompensation, documenting the visit, and performing bundled procedures exclusive of separately billed procedures. Vital Signs Vital Signs: Vital Signs Temperature 95.1 F L 05/08/25 23:34 Pulse Rate 61 05/08/25 23:34 Respiratory Rate 31 H 05/08/25 23:34 Blood Pressure 153/135 H 05/08/25 23:34 Pulse Oximetry 98 05/08/25 23:34 Oxygen Delivery Non-Rebreather Mask 05/08/25 23:34 Oxygen Flow Rate 15 05/08/25 23:34 Temperature 95.5 F L 05/09/25 01:15 Pulse Rate 104 H 05/09/25 01:57 Respiratory Rate 20 05/09/25 01:57 Blood Pressure 47/25 L 05/09/25 01:36 Pulse Oximetry 100 05/09/25 01:57 Oxygen Delivery Mechanical Ventilation 05/09/25 01:57 Oxygen Flow Rate 15 05/08/25 23:34 Fraction of Inspired Oxygen 100 05/09/25 01:57 Lab Data Lab results reviewed: Yes I reviewed the patient's lab results. 05/08/25 23:51 05/08/25 23:51 Labs: Lab Results 05/08/25 Range/Units 23:51 WBC 11.6 H (4.5-10.0) K/mm3 RBC 1.98 L (4.6-6.20) M/mm3 Hgb 7.0 L D (14.0-18.0) g/dL Hct 21.5 L (42.0-52.0) % MCV 108.6 H D (80-100) fl MCH 35.4 H (26-34) pg MCHC 32.6 (32-36) g/dl RDW 14.4 (11.5-14.5) % Plt Count 162 (150-375) k/mm3 MPV 11.1 H (7.4-10.4) fl Immature Gran % (Auto) 1.6 H (0-0.5) % Neut % (Auto) 81.2 H (45.5-73.1) % Lymph % (Auto) 12.1 L (18.3-44.2) % [place] % (Auto) 5.0 (2.6-8.5) % Eos % (Auto) 0.0 (0-4.4) % Baso % (Auto) 0.1 L (0.2-1.2) % Lymph # (Auto) 1.41 (0.9-3.2) K/mm3 [place] # (Auto) 0.6 (0.1-0.6) K/mm3 Eos # (Auto) 0.0 (0-0.3) K/mm3 Baso # (Auto) 0.0 (0.0-0.1) K/mm3 Abs Immat Gran (auto) 0.19 H (0.00-0.031) K/mm3 Absolute Neuts (auto) 9.4 H (1.3-6.7) K/mm3 Absolute Nucleated RBC 0.000 (0.0-0.012) K/mm3 Band Neutrophils % 0 (0-6) % Nucleated RBC % 0.0 (0.0-0.2) % Platelet Estimate Adequate (Adequate) Hypochromasia 1+ Anisocytosis 1+ Fith[place] Cells 1+ Schistocytes None seen PT 22.9 H (11.1-14.7) Seconds INR 2.1 APTT 44.3 H (22.3-36.8) Seconds Sodium 126 L (137-145) mmol/L Potassium 5.2 H (3.4-5.0) mmol/L Chloride 87 L (98-107) mmol/L Carbon Dioxide 9 L (22-30) mmol/L Anion Gap 30 H (4-12) mmol/L BUN 53 H D (9-20) mg/dL Creatinine 13.67 H (0.7-1.3) mg/dL Estim Creat Clear Calc 5 ml/min Estimated GFR 4 L (59 - ) Glucose 207 H (65-110) mg/dL Lactic Acid 13.5 H* (0.7-2.0) mmol/L Calcium 10.6 H (8.4-10.2) mg/dL Magnesium 2.4 H (1.6-2.3) mg/dL Total Bilirubin 0.5 (0.2-1.3) mg/dL AST 30 (17-59) U/L ALT 23 (6-50) U/L Alkaline Phosphatase 44 (38-126) U/L Total Creatine Kinase 473 H (55-170) U/L Troponin I 0.025 (0.000-0.034) ng/mL NT-Pro-B Natriuret Pep 6590 H (19.9-100) pg/mL Total Protein 5.7 L (6.3-8.2) g/dL Albumin 3.7 (3.5-5.1) g/dL TSH 2.460 (0.465-4.680) uIU/mL Blood Type O Positive Antibody Screen Negative Crossmatch See Detail ABG Data ABG results: 05/08/25 23:52 VBG pH 6.950 L* VBG pCO2 48.0 VBG pO2 34.6 L VBG HCO3 10.3 L O2 Delivery Device Non-rebreather mask O2 Liters/Min 15.0 FiO2 100 Imaging Data Radiologist's impression: Impressions Chest X-Ray 05/08/25 23:56 IMPRESSION: 1. Prominent asymmetry to the pulmonary vasculature and interstitial pattern which is significantly greater on the right than the left. This could be due to right-sided pulmonary vascular congestion and ulnar edema versus left-sided pulmonary vascular oligemia such as in the setting of unilateral pulmonary embolism. 2. Small to moderate-sized right pleural effusion with right basilar atelectasis versus less likely pneumonia. 3. Paramediastinal masslike opacity right upper lung zone raising concern for malignancy with differential including pneumonia or right upper lobe atelectasis. For further evaluation of both this and the asymmetric pulmonary vascular pattern would recommend PE protocol chest CT. ECG Data EKG #1: Attestation: I personally reviewed and interpreted this ECG as follows: ECG completion date: 05/08/25 ECG completion time: 23:37 Prior ECG tracings: available for review (11/09/2024 showed an atrial arrhythmia) Interpretation: Normal sinus rhythm at a rate of 64 beats per minute. NJ interval 209. QRS 112. QT/QTC 424/434. Good R-wave progression across the precordial leads. No T-wave inversions. Intraventricular conduction delay. ST depression particularly in V4 V5 V6. EKG #2: Attestation: I personally reviewed and interpreted this ECG as follows: ECG completion date: 05/09/25 ECG completion time: 00:22 Interpretation: Sinus tachycardia at a rate of 102 beats per minute. NJ interval is prolonged at 239 milliseconds consistent with a first-degree AV block. There are diffuse ST depressions particularly in V4 V5 and V6. Critical Care Time Critical Care Time Critical Care Time: Yes Total Critical Care Time: 75 Discharge Plan Discharge Clinical Impression: Cardiac arrest, ESRD (end stage renal disease) Patient Disposition: Condition: Patient Language: Tajik Prescriptions: No Action Inlyta 5 mg tablet 5 mg PO BID ondansetron 8 mg tablet,disintegrating 8 mg PO Q8H PRN (Reason: nausea and vomiting) Rx Instructions: 1st dose 1-2 hr before radiation hydralazine 25 mg tablet 25 mg PO BID amlodipine 10 mg Tablet 10 mg PO QAM Patient Comments: .. cholecalciferol (vitamin D3) 75 mcg (3,000 unit) Tablet 75 mcg PO DAILY Eliquis 5 mg tablet 5 mg PO Q12H sevelamer HCl 800 mg tablet 800 mg PO TIDWMEAL metoprolol succinate 200 mg tablet extended release 24 hr 200 mg PO DAILY atorvastatin [Lipitor] 20 mg tablet 20 mg PO HS fluticasone furoate-vilanterol 200-25 mcg/dose blister with device 1 inh INHALATION DAILY sodium bicarbonate 650 mg tablet 650 mg PO BID Qty: 60 11RF furosemide 20 mg tablet See Rx Instructions .ROUTE .COMPLEX Qty: 90 3RF Dose Instruction: TAKE 1 TABLET BY MOUTH EVERY MORNING Rx Instructions: TAKE 1 TABLET BY MOUTH EVERY MORNING Follow-up/Referrals: UNKNOWN,DOCTOR [Primary Care Provider] - Time of Disposition: 02:05
[2025-05-08 23:56] VITALS: TEMP 35.1
[2025-05-08 23:57] VITALS: PULSE 59
[2025-05-08 23:57] LABS: Fractional Inspired Oxygen 100 %; HCO3 VBG 10.3 mEq/l (24.0-30.0); PCO2 VBG 48.0 mmHg (42.0-48.0); PO2 VBG 34.6 mmHg (35.0-45.0)
[2025-05-08 23:58] VITALS: PULSE 57; RESP 27; TEMP 34.2; O2SAT 96
[2025-05-09] VITALS (26 sets, daily range): BP systolic 47–197; BP diastolic 14–128; PULSE 49–126; RESP 8–102; TEMP 34.5–35.4; O2SAT 70–100
[2025-05-09 00:01] LABS: Liters per Minute 15.0 LPM; pH VBG 6.950 (7.300-7.400)
[2025-05-09 00:09] LABS: Hematocrit 21.5 % (42.0-52.0); Hemoglobin 7.0 g/dL (14.0-18.0); Immature Granulocyte Percent A 1.6 % (0-0.5); Lymphocytes Absolute Auto 1.41 K/mm3 (0.9-3.2); Mean Corpuscular HGB Conc 32.6 g/dl (32-36); Mean Corpuscular Hemoglobin 35.4 pg (26-34); Mean Corpuscular Volume 108.6 fl (80-100); Nucleated Red Blood Cells Absolute Auto 0.000 K/mm3 (0.0-0.012); Nucleated Red Blood Cells Perc 0.0 % (0.0-0.2); Platelet Count Result 162 k/mm3 (150-375); Red Blood Count 1.98 M/mm3 (4.6-6.20); White Blood Count 11.6 K/mm3 (4.5-10.0)
--- NOTE | 2025-05-09 00:20 | ECG_ITS ---
Test Date: 2025-05-09 00:22:15 Measurements Intervals [place] Rate: 102 P: 12 NE: 239 QRS: -9 QRSD: 109 T: 121 QT: 339 QTc: 442 Interpretive Statements SINUS TACHYCARDIA WITH FIRST DEGREE AV BLOCK WITH OCCASIONAL VENTRICULAR PREMATURE COMPLEXES INFERIOR MYOCARDIAL INFARCTION , PROBABLY OLD [40+ ms Q WAVE AND/OR ST/T ABNORMALITY IN II/aVF] MARKED ST DEPRESSION, CONSIDER SUBENDOCARDIAL INJURY [0.2+ mV ST DEPRESSION] ACUTE MN Compared to ECG 05/08/2025 23:37:55 Ventricular premature complex(es) now present First degree AV block now present Myocardial infarct finding now present Sinus rhythm no longer present ST (T wave) deviation still present Electronically Signed On 05-10-2025 18:26:48 CDT by Lavelle Kessler M.D.
[2025-05-09 00:35] LABS: Alanine Aminotransferase 23 U/L (6-50); Albumin Level 3.7 g/dL (3.5-5.1); Alkaline Phosphatase 44 U/L (38-126); Anion Gap 30 mmol/L (4-12); Aspartate Amino Transferase 30 U/L (17-59); Bilirubin,Total 0.5 mg/dL (0.2-1.3); Blood Urea Nitrogen 53 mg/dL (9-20); Calcium 10.6 mg/dL (8.4-10.2); Carbon Dioxide 9 mmol/L (22-30); Chloride 87 mmol/L (98-107); Creatine Kinase 473 U/L (55-170); Estimated CRCL calculation 5 ml/min; Estimated Glomerular Filt Rate 4; Glucose 207 mg/dL (65-110); Magnesium 2.4 mg/dL (1.6-2.3); Potassium 5.2 mmol/L (3.4-5.0); Sodium 126 mmol/L (137-145); Total Protein 5.7 g/dL (6.3-8.2)
[2025-05-09] MEDS: INSULIN HUMAN REGULAR (*BKC) 100 UNITS/ML (00:37)
[2025-05-09 00:43] LABS: Anisocytosis 1+; Band Neutrophils Percent 0 % (0-6); Hypochromasia 1+
[2025-05-09 00:44] LABS: Burr Cells 1+; Schistocytes None Seen
[2025-05-09 00:47] LABS: NT Pro B Type Natriuretic Pept 6590 pg/mL (19.9-100); Troponin I 0.025 ng/mL (0.000-0.034)
[2025-05-09 00:49] LABS: INR 2.1; Prothrombin Time 22.9 Seconds (11.1-14.7)
[2025-05-09 00:50] LABS: Partial Thromboplastin Time 44.3 Seconds (22.3-36.8)
[2025-05-09] MEDS: FENTANYL 2,500MCG/NS250ML(*CRX 2,500 MCG/250 ML BAG IV CONT (00:51)
[2025-05-09 01:06] LABS: Thyroid Stimulating Hormone 2.460 uIU/mL (0.465-4.680)
[2025-05-09] MEDS: SODIUM CHLORIDE 0.9% IV 1,000 ML 999 ML IV CONT (01:11)
[2025-05-09] MEDS: LACTATED RINGERS 1,000 ML 999 ML (01:35)
[2025-05-09] MEDS: NOREPINEPHRINE 8 MG/D5W 250 ML 8 MG/250 ML BAG 9.4 MG (01:36)
--- NOTE | 2025-05-09 02:34 | PC.NURSE ---
1205 - Pt went to PEA / CPR / EPI administered 1207 - pulse ck / PEA / CPR / EPI 1209 - pulse ck / PEA / CPR / EPI 1210 - 1 amp of Bicarb administered / ROS obtained 1214 - 25mg etomidate and 75mg rocuronium administered 1216 - Pt Intubated with 7.5 ET Tube / 27cm at lips 1217 - Bilateral soft wrist restraints placed. 1219 - pt placed on VENT - 450/20/5/100% 1231 - Pt went to PEA / CPR / EPI administered 1231 - 2 amp of Bicab administered / pt glucose checked - 168 1233 - pulse ck / PEA / CPR / EPI 1235 - pulse ck / PEA / CPR / EPI 1237 - pulse ck / PEA / CPR / EPI / 5 units of Insulin administered iv 1238 - TNK 50mg administered 1239 - Pulse ck / Return of ROS 1240 - IO left leg placed 1242 - Pt back in to PEA / CPR by DORA device 1243 - EPI administered 1245 - Pulse ck / Return of ROS 1251 - Fentanyl gtt started at 25mcg/hr 1257 - Pt went to PEA / CPR / EPI administered 1259 - pulse check / Asystole / pt shocked with 200 joules 0101 - pulse check / Asystole / EPI / CPR by DORA device 0103 - pulse check / Asystole / EPI / CPR by DORA device 0104 - 1 amp Bicarb administered 0105 - pulse check / Asystole / EPI / CPR by DORA device 0107 - pulse check / Asystole / EPI / CPR by DORA device 0109 - pulse check / Asystole / EPI / CPR by DORA device 0111 - pulse check / ROS obtained 0140 - pt family made decision to stop all intervention per pt DNR paperwork 0205 - Time of called By Dr Mccloud and Blayne UMAÑA
== END 2025-05-09 06:50 | disposition expired ==
PROVIDERS: Emergency Provider Student in an Organized Health Care Education/Training Program
DX: I46.9 Cardiac arrest, cause unspecified (principal); I12.0 Hypertensive chronic kidney disease with stage 5 chronic kidney disease or end stage renal disease; N18.6 End stage renal disease; Z99.2 Dependence on renal dialysis; G62.9 Polyneuropathy, unspecified; N25.81 Secondary hyperparathyroidism of renal origin; Z87.442 Personal history of urinary calculi; Z86.0100 Personal history of colon polyps, unspecified; Z90.5 Acquired absence of kidney; F17.210 Nicotine dependence, cigarettes, uncomplicated; F17.220 Nicotine dependence, chewing tobacco, uncomplicated; Z79.01 Long term (current) use of anticoagulants; Z79.899 Other long term (current) drug therapy; R00.0 Tachycardia, unspecified; I44.0 Atrioventricular block, first degree; R94.31 Abnormal electrocardiogram [ECG] [EKG]
CPT/HCPCS: 31500; 36415; 71045; 80053; 82550; 82803; 82948; 83605; 83735; 83880; 84443; 84484; 85025; 85610; 85730; 86850; 86900; 86901; 86923; 87040; 92950; 93005; 96361; 96374; 99285; J0168; J0461; J1815; J3010; J7030; J7120